=== PATIENT | female | born 1950 | race Caucasian/White ===

== ENCOUNTER 2017-11-29 08:00 | Outpatient (RCR) | payer MEDICARE, OTHER, SELFPAY | END 2018-01-06 09:46 | disposition home or self-care (01) | LOC: PT 08:00 | PROVIDERS: Family Provider Family Medicine; PCP Family Medicine; Visit Provider Orthopaedic Surgery Adult Reconstructive Orthopaedic Surgery | DX: M17.0 Bilateral primary osteoarthritis of knee (principal) | CPT/HCPCS: 97014; 97110; 97116; 97140; 97163; G0283 ==

== ENCOUNTER → 2018-04-21 12:31 | Outpatient (CLI) | payer MEDICARE, BC, SELFPAY ==
--- NOTE | 2018-04-21 12:42 | XR_ITS ---
XR chest 2V HISTORY: ITS.REASON: COUGH, shortness of breath ORDERING PHYSICIAN: Chase Gunn MD PATIENT AGE: 67 years COMPARISON: 10/16/2016 FINDINGS: The cardiomediastinal silhouette and pulmonary vascularity are within normal limits. The lungs are clear without infiltrates, suspicious nodules, or pleural effusions. Increased density is present over the left heart having a similar appearance on the previous study and may be due to pericardial fat pad. There is mild degenerative change in the thoracic spine No acute bony abnormalities. IMPRESSION: Probable pericardial fat pad on the left which may be confirmed with follow-up, no acute finding
== END ==
PROVIDERS: PCP Family Medicine; Visit Provider Family Medicine
DX: R05 Cough (principal)
CPT/HCPCS: 71046

== ENCOUNTER → 2019-10-25 08:13 | Outpatient (CLI) | payer MEDICARE, BC, SELFPAY ==
[2019-10-25 08:22] LABS: Microscopic, Urine URINE MICROSCOPIC (MICROSCOPIC)
[2019-10-25 13:50] LABS: Basophils % 0.4 % (0.1-2.0); Eosinophils # 0.2 K/mm3 (0.0-0.4); Eosinophils % 3.3 % (0.1-12.0); Hematocrit 40.8 % (37.0-47.0); Hemoglobin 13.9 g/dL (12.2-16.2); Lymphocytes # 1.4 K/mm3 (0.7-4.5); Lymphocytes % 30.4 % (10-50); Mean Corpuscular HGB Conc 34.2 g/dL (31.8-35.4); Mean Corpuscular Hemoglobin 33.5 pg (27.0-31.2); Mean Corpuscular Volume 98.1 fl (81-99); Monocytes # 0.3 K/mm3 (0.1-1.0); Monocytes % 7.1 % (1.7-9.3); Neutrophils # 2.7 K/mm3 (1.8-7.8); Neutrophils % 58.9 % (37.0-80.0); Platelet Count 257 K/mm3 (142-424); Red Blood Count 4.16 M/mm3 (4.20-5.40); Red Cell Distribution Width 14.3 % (11.5-17.5); White Blood Count 4.6 K/mm3 (4.8-10.8)
[2019-10-25 13:55] LABS: Alanine Aminotransferase 15 U/L (12-78); Albumin/Globulin Ratio 1.4 (1.1-1.8); Alkaline Phosphatase 89 U/L (38-126); Amylase 67 U/L (30-110); Anion Gap 15.5 mEq/L (5-15); Aspartate Amino Transferase 30 U/L (14-36); Bilirubin,Total 0.5 mg/dl (0.2-1.3); Blood Urea Nitrogen 22 mg/dl (7-17); Calcium 9.7 mg/dl (8.4-10.2); Carbon Dioxide 28 mmol/L (22.0-30.0); Chloride 101 mmol/L (98-107); Estimated Glomerular Filt Rate 71 ml/min (>60); GFR (African American) 86 ML/MIN (>60); Globulin 2.9 g/dL (1.3-3.2); Glucose 125 mg/dl (74-100); Lipase 114 U/L (23-300); Potassium 4.5 mmoL/L (3.5-5.1); Sodium 140 mmol/L (136-145); Total Protein,Serum 6.9 g/dl (6.3-8.2)
[2019-10-25 14:26] LABS: Appearance,Urine SL CLOUDY (Clear); Bilirubin,Urine Negative (Negative); Blood, Urine TRACE-I (Negative); Color,Urine DK YELLOW (Yellow); Glucose,Urine (UA) 3+ (Negative); Ketones,Urine Negative (Negative); Leukocyte Esterase,Urine Negative (Negative); Nitrate,Urine POSITIVE (Negative); PH,Urine 5.5 (5.0-8.5); Protein,Urine Negative (Negative); Urobilinogen,Urine 0.2 EU/dl (0.2)
[2019-10-25 14:36] LABS: Bacteria,Urine 3+ /lpf; WBC,Urine 20-50 #/hpf (0-3)
== END ==
PROVIDERS: Visit Provider Family Medicine
DX: R10.30 Lower abdominal pain, unspecified (principal); R11.0 Nausea
CPT/HCPCS: 36415; 80053; 81001; 82150; 83690; 85025; 87086; 87088; 87186

== ENCOUNTER → 2020-01-16 12:51 | Outpatient (CLI) | payer MEDICARE, BC, SELFPAY ==
--- NOTE | 2020-01-16 12:55 | XR_ITS ---
PROCEDURE: XR CHEST PORTABLE CLINICAL HISTORY: COVID OUTPATIENT COMPARISON: CR CXR CHEST(2 VIEWS-NOT PORTABLE) from 12/30/2015 CR CXR CHEST(2 VIEWS-NOT PORTABLE) from 10/16/2016 CR CXR2V XR chest 2V from 04/21/2018 FINDINGS: There is mild cardiomegaly without failure. The lungs are clear without infiltrates, suspicious nodules, or pleural effusions. No acute bony abnormalities. IMPRESSION: Borderline cardiomegaly. No change with no acute finding Dictated by: Leonardo Reid MD 01/16/2020 14:04 Leonardo Reid MD in [facility] 01/16/2020 14:04
[2020-01-16 15:38] LABS: Basophils % 0.6 % (0.1-2.0); Eosinophils # 0.2 K/mm3 (0.0-0.4); Eosinophils % 2.5 % (0.1-12.0); Hematocrit 42.2 % (37.0-47.0); Hemoglobin 13.6 g/dL (12.2-16.2); Lymphocytes # 1.5 K/mm3 (0.7-4.5); Lymphocytes % 25.3 % (10-50); Mean Corpuscular HGB Conc 32.3 g/dL (31.8-35.4); Mean Corpuscular Hemoglobin 33.2 pg (27.0-31.2); Mean Corpuscular Volume 102.9 fl (81-99); Mean Platelet Volume 8.7 fl (7.4-10.4); Monocytes # 0.4 K/mm3 (0.1-1.0); Monocytes % 6.9 % (1.7-9.3); Neutrophils % 64.7 % (37.0-80.0); Platelet Count 308 K/mm3 (142-424); Red Cell Distribution Width 13.8 % (11.5-17.5); White Blood Count 6.1 K/mm3 (4.8-10.8)
[2020-01-18 12:40] LABS: Covid-19 Nasal PCR Sendout Lex Not Detected
== END ==
PROVIDERS: PCP Family Medicine; Visit Provider Family Medicine
DX: Z03.818 Encounter for observation for suspected exposure to other biological agents ruled out (principal)
CPT/HCPCS: 36415; 71045; 85025; U0004

== ENCOUNTER → 2020-04-03 09:04 | Outpatient (CLI) | payer MEDICARE, BC, SELFPAY ==
[2020-04-03 15:40] LABS: Basophils % 0.6 % (0.1-2.0); Eosinophils # 0.2 K/mm3 (0.0-0.4); Eosinophils % 4.1 % (0.1-12.0); Hematocrit 39.8 % (37.0-47.0); Hemoglobin 12.3 g/dL (12.2-16.2); Lymphocytes # 1.1 K/mm3 (0.7-4.5); Lymphocytes % 25.6 % (10-50); Mean Corpuscular HGB Conc 30.9 g/dL (31.8-35.4); Mean Corpuscular Hemoglobin 31.6 pg (27.0-31.2); Mean Corpuscular Volume 102.2 fl (81-99); Mean Platelet Volume 9.1 fl (7.4-10.4); Monocytes # 0.4 K/mm3 (0.1-1.0); Neutrophils # 2.7 K/mm3 (1.8-7.8); Neutrophils % 60.7 % (37.0-80.0); Platelet Count 270 K/mm3 (142-424); Red Blood Count 3.89 M/mm3 (4.20-5.40); Red Cell Distribution Width 14.1 % (11.5-17.5); White Blood Count 4.4 K/mm3 (4.8-10.8)
[2020-04-03 15:42] LABS: Alanine Aminotransferase 15 U/L (12-78); Albumin Level 3.9 g/dl (3.5-5.0); Albumin/Globulin Ratio 1.3 (1.1-1.8); Alkaline Phosphatase 76 U/L (38-126); Anion Gap 9.5 mEq/L (5-15); Aspartate Amino Transferase 24 U/L (14-36); Bilirubin,Total 0.4 mg/dl (0.2-1.3); Blood Urea Nitrogen 18 mg/dl (7-17); Calcium 9.5 mg/dl (8.4-10.2); Carbon Dioxide 29 mmol/L (22.0-30.0); Chloride 106 mmol/L (98-107); Estimated Glomerular Filt Rate 62 ml/min (>60); GFR (African American) 75 ML/MIN (>60); Glucose 146 mg/dl (74-100); Potassium 4.5 mmoL/L (3.5-5.1); Sodium 140 mmol/L (136-145); Total Protein,Serum 6.9 g/dl (6.3-8.2)
[2020-04-03 16:14] LABS: Thyroid Stimulating Hormone 2.84 uIU/mL (0.465-4.68)
[2020-04-03 16:30] LABS: Erythrocyte Sedimentation Rate 102 mm/hr (0-30)
[2020-04-03 16:49] LABS: Vitamin B12 633 pg/mL (239-931)
[2020-04-03 17:02] LABS: Folate > 20.00 ng/mL
[2020-04-05 18:40] LABS: Rapid Plasma Reagin Ab Titer Non Reactive (NonRea<1:1)
== END ==
PROVIDERS: Visit Provider Specialist
DX: G45.9 Transient cerebral ischemic attack, unspecified (principal); R47.89 Other speech disturbances
CPT/HCPCS: 36415; 80053; 82607; 82746; 84443; 85025; 85651; 86592

== ENCOUNTER → 2020-04-04 10:51 | Outpatient (CLI) | payer MEDICARE, BC, SELFPAY ==
--- NOTE | 2020-04-04 10:52 | CT_ITS ---
Procedure: CT ANGIO HEAD CLINICAL HISTORY: eval of intracranial circ Eval for vasculitis Slurred speech x3wks ago headaches COMPARISON: CT CT ANGIO HEAD from 04/04/2020 TECHNIQUE: IV Contrast: 100ml Isovue 370 Axial images obtained with sagittal and coronal reformats. All CT scans at the facility use one or more dose reduction, viz: automated exposure control, ma/kV adjustment per patient size (including targeted exams where dose is matched to indication, i.e. head), or iterative reconstruction technique. FINDINGS: CT angio neck: Unremarkable appearing aortic arch and great vessels. Right carotid: The common carotid has an unremarkable appearance. There is minimal amount of eccentric calcific plaque in the proximal right ICA without stenosis.No ulceration. No dissection. No significant stenotic lesion. Left carotid: Common carotid has an unremarkable appearance. There is minimal amount of calcific plaque at the bulb and proximal left ICA with approximately 20 percent stenosis of the proximal ICA. No ulceration. No dissection. No significant stenotic lesion. Vertebrals: The right vertebral has an unremarkable appearance. The left vertebral also has an unremarkable appearance. No vertebral dissection or significant stenosis. CTA head: Mild calcific plaque involves the cavernous portion of the ICAs without significant stenosis. The dzdoin-de-Gdvxyv is patent. 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 This measures approximately 3 x 3 mm. The aneurysm is pointing cephalad. This is probably best seen on series 602 image 57 and 58 and axial image series 2, image 364 the cephalad portion of the basilar artery has an unremarkable appearance. No major intracranial occlusive process is evident. No enhancing lesions are apparent. Scattered small nodes are present in the neck. Multilevel degenerative disc disease is present in the cervical spine worse at C6-C7 with mild bilateral foraminal narrowing greater on the left. IMPRESSION: 1. Essentially unremarkable CT angio of the neck. There is some scattered calcific plaque with approximately 20 percent stenosis of the proximal aspect of the left internal carotid artery and no significant stenosis on the right. 2. 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 3. Otherwise negative CTA of the head Dictated by: Leonardo Reid MD 04/04/2020 21:53 Leonardo Reid MD in [facility] 04/05/2020 12:41
--- NOTE | 2020-04-04 10:52 | CT_ITS ---
Procedure: CT ANGIO NECK CLINICAL HISTORY: eval of intracranial circ Eval for vasculitis Slurred speech x3wks ago headaches COMPARISON: CT CT ANGIO HEAD from 04/04/2020 TECHNIQUE: IV Contrast: 100ml Isovue 370 Axial images obtained with sagittal and coronal reformats. All CT scans at the facility use one or more dose reduction, viz: automated exposure control, ma/kV adjustment per patient size (including targeted exams where dose is matched to indication, i.e. head), or iterative reconstruction technique. FINDINGS: CT angio neck: Unremarkable appearing aortic arch and great vessels. Right carotid: The common carotid has an unremarkable appearance. There is minimal amount of eccentric calcific plaque in the proximal right ICA without stenosis.No ulceration. No dissection. No significant stenotic lesion. Left carotid: Common carotid has an unremarkable appearance. There is minimal amount of calcific plaque at the bulb and proximal left ICA with approximately 20 percent stenosis of the proximal ICA. No ulceration. No dissection. No significant stenotic lesion. Vertebrals: The right vertebral has an unremarkable appearance. The left vertebral also has an unremarkable appearance. No vertebral dissection or significant stenosis. CTA head: Mild calcific plaque involves the cavernous portion of the ICAs without significant stenosis. The gahche-ly-Cmmmku is patent. 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 This measures approximately 3 x 3 mm. The aneurysm is pointing cephalad. This is probably best seen on series 602 image 57 and 58 and axial image series 2, image 364 the cephalad portion of the basilar artery has an unremarkable appearance. No major intracranial occlusive process is evident. No enhancing lesions are apparent. Scattered small nodes are present in the neck. Multilevel degenerative disc disease is present in the cervical spine worse at C6-C7 with mild bilateral foraminal narrowing greater on the left. IMPRESSION: 1. Essentially unremarkable CT angio of the neck. There is some scattered calcific plaque with approximately 20 percent stenosis of the proximal aspect of the left internal carotid artery and no significant stenosis on the right. 2. 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 3. Otherwise negative CTA of the head Dictated by: Leonardo Reid MD 04/05/2020 12:40 Leonardo Reid MD in [facility] 04/05/2020 12:40
--- NOTE | 2020-04-04 11:16 | XR_ITS ---
PROCEDURE: XR CHEST 2V CLINICAL HISTORY: screen for TB COMPARISON: CR CXR CHEST(2 VIEWS-NOT PORTABLE) from 10/16/2016 CR CXR2V XR chest 2V from 04/21/2018 CR XR CHEST PORTABLE from 01/16/2020 FINDINGS: The cardiomediastinal silhouette and pulmonary vascularity are within normal limits. The lungs are clear without infiltrates, suspicious nodules, or pleural effusions. No evidence of active granulomatous process. Degenerative changes thoracic spine. IMPRESSION: No acute findings. Dictated by: Leonardo Reid MD 04/04/2020 13:07 Leonardo Reid MD in [facility] 04/04/2020 13:07
--- NOTE | 2020-04-04 11:25 | CT_ITS ---
PROCEDURE: CT HEAD/BRAIN WO CON CLINICAL INDICATION: sudden onset headache, word finding difficulties Slurred speech x3wks ago COMPARISON: No exams were available for comparison TECHNIQUE: Axial images obtained. All CT scans at the facility use one or more dose reduction, viz: automated exposure control, ma/kV adjustment per patient size (including targeted exams where dose is matched to indication, i.e. head), or iterative reconstruction technique. FINDINGS: No midline shift, mass effect, intracranial hemorrhage, hydrocephalus, or extra-axial fluid collection is evident. There is generalized atrophy with hypoattenuation of the periventricular white matter consistent with microangiopathic changes. 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 The calvarium has an unremarkable appearance. No mastoid effusion. No sinus air-fluid level. IMPRESSION: 1. No acute intracranial findings. 2. Chronic ischemic changes Dictated by: Leonardo Reid MD 04/05/2020 12:27 Leonardo Reid MD in [place] 04/05/2020 12:27
[2020-04-04 13:25] LABS: Erythrocyte Sedimentation Rate 26 mm/hr (0-30)
[2020-04-04 13:31] LABS: C-Reactive Protein 2.1 mg/L (0-4)
[2020-04-13 22:17] LABS: Antinuclear Antibodies (ANA) NEGATIVE
[2020-04-13 22:19] LABS: 1,25-Dihydroxy, Vitamin D-2 <10; 1,25-Dihydroxy, Vitamin D-3 33
== END ==
PROVIDERS: Nurse Practitioner Family; PCP Family Medicine; Visit Provider Specialist
DX: R47.89 Other speech disturbances (principal); R51.9 Headache, unspecified; R70.0 Elevated erythrocyte sedimentation rate; G45.9 Transient cerebral ischemic attack, unspecified
CPT/HCPCS: 36415; 70450; 70496; 70498; 71046; 82652; 85651; 86038; 86140; Q9967

== ENCOUNTER → 2020-04-04 12:03 | Outpatient (CLI) | payer MEDICARE, BC, SELFPAY | PROVIDERS: Visit Provider Nurse Practitioner Family | DX: R51.9 Headache, unspecified (principal); R47.89 Other speech disturbances | CPT/HCPCS: 36415; 82652; 85651; 86038; 86140 ==

== ENCOUNTER → 2020-04-05 08:04 | Outpatient (CLI) | payer MEDICARE, BC, SELFPAY ==
--- NOTE | 2020-04-05 08:04 | CA_ITS ---
APPROVED REPORT [employer]: Mindy Casillas RVT Laterality: Bilateral Study Quality: Excellent Indications: TIA Risk Factors Hypertension: Hyperlipidemia Diabetes Doppler Spectral Velocity Analysis ECA (R) 98.40/11.80 cm/s ECA (L) 109.10/6.40 cm/s dICA (R) 65.20/18.20 cm/s dICA (L) 108.00/27.80 cm/s Rosales (R) 108.00/11.80 cm/s Rosales (L) 82.30/20.30 cm/s pICA (R) 68.40/15.00 cm/s pICA (L) 55.60/9.60 cm/s dCCA (R) 59.90/8.60 cm/s dCCA (L) 66.30/11.80 cm/s pCCA (R) 50.30/11.80 cm/s pCCA (L) 72.70/11.80 cm/s Vert (R) 58.80/13.90 cm/s Vert (L) 46.00/9.60 cm/s ICA/CCA 1.80 ICA/CCA 1.63 Findings Study suggests 20-49% stenosis of the right internal cartoid artery. Study suggests 20-49% stenosis of the left internal cartoid artery. Antegrade flow seen bilateral vertebral arteries. Conclusion Study suggests 20-49% stenosis of the right internal cartoid artery. Study suggests 20-49% stenosis of the left internal cartoid artery. Antegrade flow seen bilateral vertebral arteries. Electronically signed by : Leonardo Reid MD 04/05/2020 18:00:25
--- NOTE | 2020-04-05 08:04 | CA_ITS ---
APPROVED REPORT EXAM: Comprehensive 2D, Doppler, and color-flow Echocardiogram [employer] Ste[employer] Tender: Mindy Casillas RVT Ht: 5 ft 5 in Wt: 198lbs BSA: 1.97 BP: 150/66 mmHg Indications: TIA,HTN,DM,HLD 2D Dimensions LVOT 2.00 cm (M/F) 1.5-2.5 LA Volume 24.90 mL LA Volume Index 12.63 mL/m2 (M/F) 16-34 M-Mode Dimensions RVDd 3.66 cm (0.9-2.6) LA Diam 3.99 cm (1.9-4.0) LVDd 5.54 cm (3.5-5.7) Ao Diam 2.76 cm (2.0-3.7) LVDs 3.21 cm (3.5-5.7) IVSd 0.76 cm (0.6-1.1) PWd 0.58 cm (0.6-1.1) EF (Teich) 72.40% FS 42.10% EDV (Teich) 149.90 mL ESV (Teich) 41.30 mL LV Diastology E Decel Time 107.00 (160-240 msec) E/A Ratio 1.4 MED E' 7.40 (< 7 cm/sec) E'/MED E' Ratio 13.88 (>14) LAT E' 7.50 (<10 cm/sec) E/LAT E' Ratio 13.69 (>14) Aortic Valve AI PHT 1052.00 ms Mitral Valve MV E Max Murtaza. 103.00 (40-130 cm/s) MV A Velocity 72.00 (40-130 cm/s) E/A Ratio 1.43 MV Decel. Time 107.00 (160-240 ms) MV PHT 31.00 ms Pulmonary Valve PV Peak Velocity 63.00 (50-150 cm/s) Tricuspid Valve TR P. Velocity 371.00 cm/s RAP Estimate 10.00 mmHg RVSP 65.00 mmHg Left Ventricle Left atrium is mildly enlarged, left ventricle is normal size, mild concentric left ventricular hypertrophy, visually estimated ejection fraction 55% with no regional wall motion abnormality. Grade 2 diastolic dysfunction seen without tissue Doppler evidence of raise left atrial pressure. Right Ventricle Right atrium and right ventricle are mildly enlarged with normal contractility. Aortic Valve Aortic valve is minimally thickened and fibrosed, there is no aortic stenosis, there is mild aortic insufficiency. Mitral Valve Mitral valve is grossly normal, there is mild mitral regurgitation. Tricuspid Valve Tricuspid valve grossly normal, there is mild tricuspid regurgitation, tricuspid regurgitation jet velocity is inadequate for calculation of the right ventricular systolic pressure. Pulmonic Valve Pulmonic valve is poorly visualized. Great Vessels Aortic root is normal size. Pericardium No significant pericardial effusion noted Conclusion 1. Biatrial enlargement, normal left ventricular size, mild concentric left ventricular hypertrophy, visually estimated ejection fraction 55% with no regional wall motion abnormality, grade 2 diastolic dysfunction seen without tissue Doppler evidence of raise left atrial pressure. 2. Mildly enlarged right ventricle with normal contractility. 3. Mild aortic, mild mitral and tricuspid regurgitation. 4. No significant pericardial effusion noted. Electronically signed by : Eric Washington, 04/05/2020 10:36:02
--- NOTE | 2020-04-05 09:16 | ECG_ITS ---
APPROVED REPORT Exam: Resting ECG HR:50 bpm ECG Measurements Heart Rate 50 AXES OK 162 P 68 QRSd 84 QRS 35 QT 468 T 54 QTc 426 Conclusion Sinus bradycardia Low voltage QRS STTW inversion - old changes Abnormal ECG Electronically signed by : Tyler Esteban, 04/05/2020 17:48:19
== END ==
PROVIDERS: PCP Family Medicine; Visit Provider Specialist
DX: G45.9 Transient cerebral ischemic attack, unspecified (principal); R47.89 Other speech disturbances
CPT/HCPCS: 93005; 93225; 93226; 93306; 93880

== ENCOUNTER → 2020-04-08 12:41 | Outpatient (CLI) | payer MEDICARE, BC, SELFPAY | PROVIDERS: PCP Family Medicine; Visit Provider Specialist | DX: G45.9 Transient cerebral ischemic attack, unspecified (principal) | CPT/HCPCS: 94762 ==

== ENCOUNTER → 2020-04-09 12:32 | Outpatient (CLI) | payer MEDICARE, BC, SELFPAY ==
[2020-04-09 13:44] LABS: Coronavirus 19 IgG Antibody Negative (Negative); Coronavirus 19 IgM Antibody Negative (Negative)
== END ==
PROVIDERS: Visit Provider Surgery
DX: Z01.818 Encounter for other preprocedural examination (principal); Z20.822 Contact with and (suspected) exposure to COVID-19; M31.6 Other giant cell arteritis
CPT/HCPCS: 36415; 86328

== ENCOUNTER 2020-04-11 09:50 | Day surgery (SDC) | payer MEDICARE, BC, SELFPAY ==
[2020-04-09 10:35] VITALS: BMI 32.9
[2020-04-11] VITALS (10 sets, daily range): BP systolic 137–195; BP diastolic 62–78; PULSE 58–73; RESP 16–18; TEMP 36.1–36.8; O2SAT 92–98
--- NOTE | 2020-04-11 11:52 | HMH.ANESCL ---
[facility] Anesthesia Checklist - Patient Identification Patient Identification: Arm Band - Structural Data Admitted From: Home Planned Operative Procedure/s: Bilateral Temporal Artery Biopsies Consent for Planned Operative Procedure(s) Verified: Yes Verified Documents: Surgical Consent, History and Physical - NPO Status Verified Time NPO: 00:00 - Additional verifications Anesthesia Reactions: No Hx Blood Transfusions: No Blood Transfusion Reaction: No - Airway Assessment C-Spine Mobility Assessed: Yes (mp2) TMJ Mobility Assessed: Yes Dentition: Good Dentition - Neurological Assessment Level of Consciousness: Awake, Alert - Anesthesia Plan Anesthesia Risk discussed: Yes Anesthesia Plan: Verified ASA Class: III Anesthesia Type: General [facility] History I have reviewed the patient's past medical history: Yes Medical History: Reports:: Anxiety, Depression, Diabetes Mellitus Type 2, Hyperlipidemia, Hypertension Denies:: Cancer, Diabetes Mellitus Type 1, MRSA, Seizures *Have you ever received a pneumonia vaccine?: Yes *Have you received a flu vaccine this season?: Yes Other Medical History: Reports: Arthritis, Other. Denies: Blood Transfusion Reaction Anesthesia experience/problems:: nac Laterality Cases: Bilateral: Carpal Tunnel Release Other Surgeries: Yes: Cholecystectomy, Colonoscopy, Hernia Repair, Tubal Ligation Amputation: No Fractures: No - *Social History Last grade of school completed: High school graduate Smoking Status: Never smoker Alcohol Intake: never Substance Use Type: denies use *Occupational Status:: retired Housing: house Household Members: spouse, children *Travel in the last 8 weeks: None - Psychiatric History Pschychiatric History:: Reports:: Anxiety, Depression Family Hx:: Diabetes, Coronary Artery Disease, Cancer
--- NOTE | 2020-04-11 13:03 | P.PN_ITS ---
[facility] Anesthesia Record Part I Intake, IV Amount: 1,000 Estimated blood loss (mL): 10 Urine output (mL): 0 Blood Pressure: 150/72 SaO2: 93 Pulse Rate: 73 Respiratory Rate: 16 Temperature: 97.1 F Patient is:: Drowsy, Stable Stable to PACU at:: 13:00
--- NOTE | 2020-04-11 13:05 | HMH.OPNOTE ---
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 Ultrasound guidance was utilized in the preoperative area for marking of her bilateral temporal arteries. She was then transferred to the operating room and placed in the supine position. General anesthesia with laryngeal mask airway was achieved. The right temporal region was prepped and draped in a sterile fashion. After infiltration with local anesthetic an incision was made overlying the left temporal artery. The deep subcutaneous tissue was sharply dissected. Electrocautery was utilized to achieve hemostasis along the skin margin. The fascial margin was carefully elevated as a fairly large vein and adjacent artery were from surrounding tissue. The artery and vein were carefully elevated and . The artery was controlled proximally and distally with 4-0 Nurolon. Tenotomy scissors were then utilized to transect the vessel. Secondary to mild ongoing sanguinous ooze the decision was made to proceed with resection of the adjacent vein. It was taken in a similar manner. The left temporal artery with adjacent vein were placed in a single specimen cup for pathologic evaluation. Skin was then reapproximated with running 6-0 nylon and a sterile dressing was applied. Attention was then turned to the right temporal region which was prepped and draped in a sterile manner. After infiltration local anesthetic an incision was made and the deeper subcutaneous tissue was sharply dissected. Once again, electrocautery was utilized to achieve hemostasis of the skin margin. A somewhat thickened artery was carefully from surrounding tissue with a combination of sharp and blunt dissection. The artery was elevated with a vessel loop centrally as 4-0 Nurolon was used to ligate proximally and distally. The vessel was transected and passed off for pathologic evaluation. Skin was then closed with running 6-0 nylon. Dressings were applied and the patient was transferred to recovery in stable condition after removal of her laryngeal mask airway. Condition: stable Disposition: PACU Specimens:: Left temporal artery and adjacent vein Right temporal artery Complications:: No immediate
[2020-04-11 13:18] LABS: POC Glucose,Bedside 138 (70-110)
[2020-04-11 15:00] LABS: POC Glucose,Bedside 130 (70-110)
[2020-04-12 10:43] VITALS: BP 177/71; PULSE 59; TEMP 36.1
--- NOTE | 2020-04-12 10:43 | HMH.ANESII ---
[facility] Anesthesia Record Part II Discharge Time: 13:30 Destination: Surgical Day Care (OP Surgery) PACU nurse assessment reviewed?: Yes Patient Condition:: Good Anesthesia Complications:: None Swallowing reflex intact?: Yes Cyanosis?: No Blood Pressure: 177/71 Pulse Rate: 59 Temperature: 97 F Mental Status: Alert & Oriented Pain level:: 0 Nausea and/or vomitting:: None Intake, IV Amount: 0
== END 2020-04-11 14:20 | disposition home or self-care (01) ==
LOC: OR 09:52
PROVIDERS: PCP Family Medicine; Visit Provider Surgery
PROC: (CPT 37609; principal; 2020-04-11 11:30)
DX: I77.9 Disorder of arteries and arterioles, unspecified (principal); I87.9 Disorder of vein, unspecified; E11.9 Type 2 diabetes mellitus without complications; I10 Essential (primary) hypertension; E78.5 Hyperlipidemia, unspecified; F41.9 Anxiety disorder, unspecified; F32.9 Major depressive disorder, single episode, unspecified; M19.90 Unspecified osteoarthritis, unspecified site; Z83.3 Family history of diabetes mellitus; Z80.9 Family history of malignant neoplasm, unspecified; Z82.49 Family history of ischemic heart disease and other diseases of the circulatory system; Z79.82 Long term (current) use of aspirin; Z79.899 Other long term (current) drug therapy
CPT/HCPCS: 37609; 82962; 88305; J2405

== ENCOUNTER → 2020-04-25 07:46 | Outpatient (CLI) | payer MEDICARE, BC, SELFPAY ==
--- NOTE | 2020-04-25 07:46 | NM_ITS ---
APPROVED REPORT Exam: Nuclear Stress Test Indication: palpitations..abn holtier Patient Location: Outpatient Stress Tech: Shivani Byrd [place] Tech:Lori Zhou VALorrie RT(R)(N) Ht: 5 ft 5 in Wt: 185 lbs Bra Size: 38 b HR: 62 bpm BP: 156/58 mmHg BSA: 1.91 m2 BMI: 30.7 History: palpitations..abn holtier Procedure: Patient received a 0.4 mg of intravenous Lexiscan, resting heart rate 62 bpm, resting blood pressure 156/58 mmHg, with Lexiscan maximum heart rate achived was 93 bpm which is 85 % of the maximum predicted heart rate and blood pressure was 170/69 mmHg. With Lexiscan, patient denied any complaint of chest pain. Electrocardiogram Resting electrical cardiogram shows sinus rhythm, with Lexiscan there is less than 1.[address] segment depression noted from the baseline EKG. The EKG portion of the Lexiscan is nondiagnostic. Cardiac Stress and Resting SPECT Images: Cardiac Stress and Resting SPECT images were obtained using technetium 99m Myoview 32.9 mCi stress and 10.37 mCi at rest. Gated SPECT for analysis of segmental wall motion and calculation of the ejection fraction also done, prone images were also obtained. Cardiac stress and resting SPECT images show uniform myocardial activity without segmental perfusion abnormality, computer derived ejection fraction is 64% with no regional wall motion abnormality, right ventricle is normal size and contractility. Conclusion: 1. The EKG portion of the Lexiscan is nondiagnostic. 2. No scintigraphic evidence of reversible ischemia seen, computer derived ejection fraction is 64% with no regional wall motion abnormality, right ventricle is normal size and contractility. 3. Normal Lexiscan Myoview study. Electronically signed by : Eric Washington, 04/25/2020 14:36:08
--- NOTE | 2020-04-25 11:37 | CA_ITS ---
APPROVED REPORT Exam: Pharmacologic Technologist: Shivani Byrd, Ht: 5 ft 5 in Wt: 193 lbs BSA: 1.95 m2 HR: 62 bpm BP: 156/58 mmHg Medical History Medications: Aspirin,,,,, Metformin,,,,, Nabumetone,,,,, Crestor,,,,, Coreg,,,,, Calcium,,,,, Protonix,,,,, Januvia,,,,, Prednisone,,,,, KloNOPIN,,,,, Lactulose,,,,, ActOS,,,,, Stress Test Details Test: LEXISCAN HR Resting HR: 63 bpm Max Heart Rate (APMHR): 151.842313 bpm Max HR Achieved: 99 bpm Target HR (85% APMHR): 128.290884 bpm % of APMHR: 65.56 Recovery HR: 67 bpm BP Resting BP: 156/58 mmHg Max BP: 177/60 mmHg Recovery BP: 151.0/55.0 mmHg ECG Resting ECG: NSR, PVC Clinical Exercise duration: 04:00 min Highest Stage Achieved: Exercise capacity: 1.0 METs Stress ECG Conclusion Symptoms: SOA, Malaise, SALAZAR, mild stomach discomfort. SOA better, other symptoms persist. Aminophylline 100mg slow IV given, symptoms better. Symptoms resolved. Arrhythmias/Ectopy: Occ PVC. Rare PAC ST-T Changes: No significant changes. Conclusion: Unremarkable Lexiscan stress. Myoview images reported separately. Electronically signed by : Eric Washington, 04/25/2020 14:33:23
== END ==
PROVIDERS: PCP Family Medicine; Visit Provider Urology
DX: E11.69 Type 2 diabetes mellitus with other specified complication (principal); E78.5 Hyperlipidemia, unspecified; I10 Essential (primary) hypertension; I47.1 Supraventricular tachycardia; R94.31 Abnormal electrocardiogram [ECG] [EKG]; Z82.49 Family history of ischemic heart disease and other diseases of the circulatory system; Z86.79 Personal history of other diseases of the circulatory system; Z79.84 Long term (current) use of oral hypoglycemic drugs; R06.09 Other forms of dyspnea; Z79.899 Other long term (current) drug therapy; I34.0 Nonrheumatic mitral (valve) insufficiency
CPT/HCPCS: 78452; 93017; A9502; J0280; J2785

== ENCOUNTER → 2020-04-30 10:43 | Outpatient (CLI) | payer MEDICARE, BC, SELFPAY ==
[2020-04-30 12:11] LABS: Erythrocyte Sedimentation Rate 20 mm/hr (0-30)
[2020-05-03 18:26] LABS: Antinuclear Antibodies (ANA) NEGATIVE
[2020-05-04 12:01] LABS: 1,25 Dihydroxy Vitamin D 33; 1,25-Dihydroxy, Vitamin D-2 <10
[2020-05-04 12:02] LABS: 1,25-Dihydroxy, Vitamin D-3 33
== END ==
PROVIDERS: Nurse Practitioner Family; Visit Provider Specialist
DX: G45.9 Transient cerebral ischemic attack, unspecified (principal); M31.6 Other giant cell arteritis; R47.89 Other speech disturbances; R51.9 Headache, unspecified; R70.0 Elevated erythrocyte sedimentation rate
CPT/HCPCS: 36415; 82652; 85651; 86038

== ENCOUNTER → 2020-05-14 10:56 | Outpatient (CLI) | payer MEDICARE, BC, SELFPAY ==
[2020-05-14 15:22] LABS: Erythrocyte Sedimentation Rate 23 mm/hr (0-30)
== END ==
PROVIDERS: Visit Provider Specialist
DX: M31.6 Other giant cell arteritis (principal)
CPT/HCPCS: 36415; 85651

== ENCOUNTER 2020-06-11 15:00 | Outpatient (RCR) | payer MEDICARE, BC, SELFPAY ==
--- NOTE | 2020-05-16 13:01 | HMH.SLVOIC ---
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 Speech & Language HPI History Present Illness Pt/Caregiver Concerns physically can not get words out Is this evaluation r/t stroke? No Therapy History Seen by other SL therapists No SL Voice & Resonance Eval Communication/Cognition Orientation Name,Place,Day,Date,Year Ablility to follow commands 2-step commands Intelligibility Fair Barriers to Communication Dysarthria Oral-Motor Structure/Function Structure/Function Yes: Buccal Labial Lingual Mandibular Velar Other Facial Symmetry Symmetrical Dentition Good Dentition Resp Status/History Resp status/hx a concern? No Respiration/Phonation Phonation Quality: strained Duration:Mod impaired Loudness: WNL Steadiness: WNL Oral Reading Quality: strained Duration: Mod impaired Loudness: WNL Steadiness: Impaired Conversation Quality: strained Duration: Mod impaired Loudness: WNL Steadiness: Impaired Oral Agility: Diadochokinetic Rates P Duration: 10/ per 3 sec. Quality: WNL T Duration: 11/ per 3 sec. Quality: WNL K Duration: 12/ per 3 sec. Quality: WNL PTK Duration: 6/ per 3 sec. Quality: mild Speech Intelligibility Phoneme
== END 2020-06-11 15:05 | disposition home or self-care (01) ==
LOC: ST 15:00
PROVIDERS: PCP Family Medicine; Visit Provider Specialist
DX: R47.1 Dysarthria and anarthria (principal)
CPT/HCPCS: 92507; 92524

== ENCOUNTER → 2020-06-13 08:51 | Outpatient (CLI) | payer MEDICARE, BC, SELFPAY ==
--- NOTE | 2020-06-13 08:53 | XR_ITS ---
PROCEDURE: XR DEXA AXIAL SKELETON CLINICAL HISTORY: POST MENOPAPUSAL COMPARISON: No exams were available for comparison FINDINGS: The right hip BMD is 0.763 with a T-score of -0.8. The left hip BMD is 0.743 with a T-score of -1.0. The lumbar spine BMD is 1.225 with a T-score of 1.6. IMPRESSION: This patient is considered normal according to the World Health Organization criteria. Fracture risk is low. Based on these results a follow-up exam is recommended in 2 year. Dictated by: Leonardo Reid MD 06/13/2020 22:16 Leonardo Reid MD in [place] 06/14/2020 08:33
== END ==
PROVIDERS: PCP Family Medicine; Visit Provider Obstetrics & Gynecology Gynecology
DX: Z78.0 Asymptomatic menopausal state (principal)
CPT/HCPCS: 77080

== ENCOUNTER 2020-09-03 08:50 | Emergency (ER) | payer MEDICARE, BC, SELFPAY ==
[2020-09-03 08:51] VITALS: BP 190/83; PULSE 65; RESP 16; TEMP 36.6; O2SAT 98; BMI 33.3
--- NOTE | 2020-09-03 09:00 | HMH.EDGENADL ---
ED Disposition Clinical Impression: Osteoarthritis of hip Qualifiers: Osteoarthritis type: primary Laterality: right Qualified Code(s): M16.11 - Unilateral primary osteoarthritis, right hip Sciatica Qualifiers: Laterality: right Qualified Code(s): M54.31 - Sciatica, right side Disposition: Home, Self-Care Condition on Discharge: Good Instructions: DI for Chronic Pain -- Adult Additional Instructions: Follow-up with your primary care who can establish follow-up with an orthopedist for your developing arthritis. Prescriptions: methocarbamoL [Methocarbamol] 750 mg PO TID PRN #9 tab PRN Reason: Muscle Spasm Transmission Status: Pending to [facility] predniSONE [Prednisone 20mg Tab] 20 mg PO DAILY #4 tab Transmission Status: P[facility] to [facility] Referrals: Chase Gunn MD [Primary Care Provider] - - Critical Care Critical Care Time: No Attestation: On , the high probability of a clinically significant, sudden or life threatening deterioration of the following system(s) required my full and direct attention, intervention and personal management. The time I documented below is in addition to time spent performing reported procedures but includes the following listed in this critical care notation. Medical Decision Making - Medical Records Medical records reviewed: Yes: I reviewed the patient's medical records. - Bhavik Inquiry Pt receiving controlled substance: No Vital Signs: 09/03/20 08:51 Temperature 98 F Temperature Source Oral Pulse Rate [Radial] 65 Respiratory Rate 16 Blood Pressure [Right Arm] 190/83 H Blood Pressure Mean [Right Arm] 118 Blood Pressure Position [Right Arm] Sitting 02 Sat by Pulse Oximetry 98 Oxygen Delivery Method Room Air Orders (Tests/Meds): ED MEDICATIONS Discontinued Medications Generic Name Dose Route Start Last Admin Trade Name Freq PRN Reason Stop Dose Admin Acetaminophen 1,000 mg 09/03/20 09:00 09/03/20 09:18 Acetaminophen 500mg Tab PO 09/03/20 09:01 1,000 mg ONCE ONE Administration Ketorolac Tromethamine 15 mg 09/03/20 09:00 09/03/20 09:18 Ketorolac 30mg/Ml Vial IM 09/03/20 09:01 15 mg ONCE ONE Administration - Radiology Data #1 Image(s): Hip Image Reviewed: Yes I reviewed the patient's radiology results Preliminary Findings: Abnormal Osteoarthritis of the right hip Medical Decision Narrative: 69-year-old female who ambulates into the department well-appearing nontoxic on initial examination. Is having paresthesias to the right leg with pain that shoots from the hip to the knee. She also has tenderness over her right SI joint on exam. Exam is consistent with osteoarthritis exacerbation of the right hip. She has no previous diagnosis. X-ray was performed with concern which confirmed the arthritis and she will be given Tylenol 1 g p.o. and 15 mg of Toradol. Patient was given a prescription for short dose of prednisone and Robaxin for muscle relaxation and discharged home in good condition. General Adult HPI - General Stated complaint: numbness/tingling rt leg Time Seen by Provider: 09/03/20 09:00 Mode of Arrival: Ambulatory - History of Present Illness HPI narrative: 69-year-old female with paresthesias to the right thigh and pain over the right hip for 1 week that is progressively worsened. Denies urinary retention, lower back pain, saddle anesthesia, and weakness to the leg. She is ambulating without difficulty. Pain is shooting in nature. Worse with movement currently 3 out of 10. - Related Data Home Medications Medication Instructions Recorded Confirmed amlodipine 5 mg tablet 5 mg PO DAILY 09/12/18 06/25/20 calcium carbonate 600 mg calcium 600 mg PO DAILY 09/12/18 06/25/20 (1,500 mg) tablet candesartan 32 mg tablet 32 mg PO DAILY 09/12/18 06/25/20 carvedilol 25 mg tablet 25 mg PO BID 09/12/18 06/25/20 clonazepam 1 mg tablet 1 mg PO BID 09/12/18 06/25/20 guanfacine
--- NOTE | 2020-09-03 09:01 | XR_ITS ---
PROCEDURE: XR HIP RT 2-3V W/PELVIS CLINICAL INDICATION: right hip pain no trauma COMPARISON: CR BONE BONE DENSITOMETRY(HIP:LT SPINE from 02/06/2013 FINDINGS: No fracture or dislocation. No lytic or blastic change. Mild osteoarthritic changes are noted with slight decrease in the joint space in the axial orientation with minimal spurring of the acetabulum. A neurostimulator device is present with the electrode tip over the right mid sacral area.. There are degenerative changes in the lumbar spine IMPRESSION: Mild osteoarthritic changes of the right hip Dictated by: Leonardo Reid MD 09/03/2020 09:46 Leonardo Reid MD in [facility] 09/03/2020 09:46
[2020-09-03 10:21] VITALS: BP 175/83; PULSE 55; RESP 16; TEMP 36.7; O2SAT 98
== END 2020-09-03 10:21 | disposition home or self-care (01) ==
PROVIDERS: Emergency Provider Student in an Organized Health Care Education/Training Program; PCP Family Medicine
DX: M16.11 Unilateral primary osteoarthritis, right hip (principal); M54.31 Sciatica, right side; F41.8 Other specified anxiety disorders; I10 Essential (primary) hypertension; E11.9 Type 2 diabetes mellitus without complications; E78.5 Hyperlipidemia, unspecified; Z79.899 Other long term (current) drug therapy
CPT/HCPCS: 73502; 96372; 99282

== ENCOUNTER 2020-10-24 09:00 | Outpatient (RCR) | payer MEDICARE, BC, SELFPAY | END 2020-11-26 08:05 | disposition home or self-care (01) | LOC: PT.CARL 09:00 | PROVIDERS: PCP Family Medicine; Visit Provider Orthopaedic Surgery Adult Reconstructive Orthopaedic Surgery | DX: M51.36 Other intervertebral disc degeneration, lumbar region (principal) | CPT/HCPCS: 97010; 97110; 97140; 97163 ==

== ENCOUNTER → 2021-01-14 08:22 | Outpatient (CLI) | payer MEDICARE, BC, SELFPAY ==
[2021-01-14 14:47] LABS: Anion Gap 8.9 mEq/L (5-15); Blood Urea Nitrogen 27 mg/dl (7-17); Calcium 9.3 mg/dl (8.4-10.2); Carbon Dioxide 32 mmol/L (22.0-30.0); Chloride 99 mmol/L (98-107); Estimated Glomerular Filt Rate 49 ml/min (>60); GFR (African American) 59 ML/MIN (>60); Glucose 142 mg/dl (74-100); Potassium 3.9 mmoL/L (3.5-5.1); Sodium 136 mmol/L (136-145)
== END ==
PROVIDERS: Visit Provider Physician Assistant
DX: E11.9 Type 2 diabetes mellitus without complications (principal); E78.5 Hyperlipidemia, unspecified; I10 Essential (primary) hypertension; R94.31 Abnormal electrocardiogram [ECG] [EKG]; Z82.49 Family history of ischemic heart disease and other diseases of the circulatory system
CPT/HCPCS: 36415; 80048

== ENCOUNTER → 2021-02-10 09:00 | Outpatient (CLI) | payer MEDICARE, BC, SELFPAY ==
[2021-02-10 14:44] LABS: Chloride 99 mmol/L (98-107); Potassium 4.7 mmoL/L (3.5-5.1); Sodium 138 mmol/L (136-145)
[2021-02-10 14:47] LABS: Anion Gap 12.7 mEq/L (5-15); Blood Urea Nitrogen 27 mg/dl (7-17); Calcium 9.2 mg/dl (8.4-10.2); Carbon Dioxide 31 mmol/L (22.0-30.0); Estimated Glomerular Filt Rate 49 ml/min (>60); GFR (African American) 59 ML/MIN (>60); Glucose 180 mg/dl (74-100)
== END ==
PROVIDERS: Visit Provider Physician Assistant
DX: E11.9 Type 2 diabetes mellitus without complications (principal); E78.5 Hyperlipidemia, unspecified; I10 Essential (primary) hypertension; Z82.49 Family history of ischemic heart disease and other diseases of the circulatory system; Z79.84 Long term (current) use of oral hypoglycemic drugs
CPT/HCPCS: 36415; 80048

== ENCOUNTER → 2021-05-16 10:49 | Outpatient (CLI) | payer MEDICARE, BC, SELFPAY ==
--- NOTE | 2021-05-16 10:50 | CA_ITS ---
FINAL REPORT TECHNIQUE: Color Doppler, duplex Doppler and ledesma scale sonography of the bilateral neck arterial vasculature was performed. Velocities were measured in the carotid arteries. Stenosis evaluation based on the validated velocity criteria. CLINICAL HISTORY: AUGUSTINA FINDINGS: The peak systolic velocity of the right common carotid artery is a 2 cm/s. The peak systolic velocity of the right internal carotid artery is 73 cm/s and end diastolic velocity 20 cm/s. A mild to moderate amount of plaque is present. The right external carotid artery is patent. The right vertebral artery is patent with antegrade flow. ICA/CCA ratio: 0.93. The peak systolic velocity of the left common carotid artery is 83 cm/s. The peak systolic velocity of the left internal carotid artery is 89 cm/s and end diastolic velocity 25 cm/s. A mild to moderate amount of plaque is present. The left external carotid artery is patent.The left vertebral artery is patent with antegrade flow. ICA/CCA ratio: 1.06. IMPRESSION: Less than 50% bilateral carotid stenoses. Bilateral patent vertebral arteries with antegrade flow. If indicated, CTA or MRA could further evaluate. Reviewed, Interpreted and Dictated by Serge Hung III, MD Transcribed by Elissa Kwan Authenticated by Serge Hung III, MD on 05/16/2021 12:46:38 PM [facility]
== END ==
PROVIDERS: PCP Family Medicine; Visit Provider Nurse Practitioner Family
DX: E78.5 Hyperlipidemia, unspecified (principal); I10 Essential (primary) hypertension; I65.23 Occlusion and stenosis of bilateral carotid arteries; R06.00 Dyspnea, unspecified; R94.31 Abnormal electrocardiogram [ECG] [EKG]
CPT/HCPCS: 93880

== ENCOUNTER → 2021-07-15 09:49 | Outpatient (CLI) | payer MEDICARE, BC, SELFPAY | PROVIDERS: PCP Family Medicine; Visit Provider Nurse Practitioner Family | DX: G47.30 Sleep apnea, unspecified (principal); G47.00 Insomnia, unspecified; R06.83 Snoring; R51.9 Headache, unspecified; R53.83 Other fatigue | CPT/HCPCS: G0399 ==

== ENCOUNTER → 2021-08-04 13:59 | Outpatient (CLI) | payer MEDICARE, BC, SELFPAY ==
--- NOTE | 2021-08-04 14:05 | XR_ITS ---
FINAL REPORT CLINICAL HISTORY: neck pain, pt states that she has been experiencing neck pain and headaches for the last month, no known trauma. FINDINGS: CERVICAL SPINE Seven views were obtained including flexion and extension views. There is no acute fracture. There is no malalignment. There is mild and moderate degenerative change with multilevel osteophytes. There is no abnormal movement with flexion or extension. There is no soft tissue abnormality. IMPRESSION: [id number] degenerative change with no acute bony abnormality. Reviewed, Interpreted and Dictated by Serge Hung III, MD Transcribed by Nathalie Corey Authenticated and [facility]
== END ==
PROVIDERS: PCP Family Medicine; Visit Provider Nurse Practitioner Family
DX: G44.86 Cervicogenic headache (principal); M54.2 Cervicalgia
CPT/HCPCS: 72052

== ENCOUNTER → 2021-08-19 11:08 | Outpatient (CLI) | payer MEDICARE, BC, SELFPAY ==
[2021-08-19 12:03] LABS: Anion Gap 14.1 mEq/L (5-15); Blood Urea Nitrogen 28 mg/dl (7-17); Calcium 9.8 mg/dl (8.4-10.2); Carbon Dioxide 27 mmol/L (22.0-30.0); Chloride 102 mmol/L (98-107); Estimated Glomerular Filt Rate 49 ml/min (>60); GFR (African American) 59 ML/MIN (>60); Glucose 144 mg/dl (74-100); Potassium 5.1 mmoL/L (3.5-5.1); Sodium 138 mmol/L (136-145)
== END ==
PROVIDERS: PCP Family Medicine; Visit Provider Internal Medicine Cardiovascular Disease
DX: E78.5 Hyperlipidemia, unspecified (principal); I10 Essential (primary) hypertension; R06.00 Dyspnea, unspecified; R94.31 Abnormal electrocardiogram [ECG] [EKG]
CPT/HCPCS: 36415; 80048

== ENCOUNTER → 2021-08-19 20:10 | Outpatient (CLI) | payer MEDICARE, BC, SELFPAY | PROVIDERS: PCP Family Medicine; Visit Provider Nurse Practitioner Family | DX: G47.8 Other sleep disorders (principal); R06.83 Snoring; G47.30 Sleep apnea, unspecified | CPT/HCPCS: 95810 ==

== ENCOUNTER 2021-09-04 09:00 | Outpatient (RCR) | payer MEDICARE, BC, SELFPAY ==
--- NOTE | 2021-08-05 16:31 | HMH.PTOPEV ---
PT Outpatient Evaluation Rehab PT Outpatient Evaluation Start: 08/05/21 14:53 Freq: Status: Active Protocol: Document 08/05/21 14:53 PDESEROUX (Rec: 08/05/21 16:30 PDESEROUX [id number]) Electronically Signed By Apolinar Eden, EVER 08/05/21 14:53 Outpatient Therapy Subjective History Subjective History Pt. is a 70 year old female who presents to [facility] Outpatient Physical Therapy Services in [place] for the initial evaluation this date( 08/05/21) w/ c/o subacute and constant cervical/cephalic P!, headaches, and stiffness of insidious onset 1 month ago. Pt. reports P! and stiffness will originate in the back of the neck and then a throbbing headache will radiate to the top of her head. Pt. reports symptoms worsen w/ turning her neck, reading, and looking down. Pt. reports having some symptom relief w/ using a cervical pillow in her recliner. Pt. reports having an X-ray of her cervical spine yesterday(08/04/21), but states not knowing her results yet. Pt. denies having any injections for current complaint. Pt. denies having any numbness/tingling into neither BUE. Pt. RTMD 10/02/21 . Current medications include Aspirin, Lactulose, Detrol, Trintellix, Crestor, Pioglitazone, Clonazepam, Synjardy, Amlodipine, Fuanfacine, Nabumetone, Hydrochlorothiazide, Candesartan, Januvia, Cefuroxime, Primidone, Protonix, Amitriptyline, Melatonin, and Folic acid. PMH includes Hypertension, Type II Diabetes, Osteoarthritis, Cholecystectomy, S/P B/L Carpal Tunnel Surgeries, S/P Herniorrhaphy, Temporal Artery Surgery, History of Aneurysm,
== END 2021-09-09 09:22 | disposition home or self-care (01) ==
LOC: PT.CARL 09:00
PROVIDERS: PCP Family Medicine; Visit Provider Nurse Practitioner Family
DX: M54.2 Cervicalgia (principal); G44.86 Cervicogenic headache; G89.29 Other chronic pain
CPT/HCPCS: 20560; 97010; 97035; 97110; 97140; 97163

== ENCOUNTER → 2021-09-11 15:32 | Outpatient (CLI) | payer MEDICARE, BC, SELFPAY ==
--- NOTE | 2021-09-11 15:41 | XR_ITS ---
FINAL REPORT CLINICAL HISTORY: COVID OUT PATIENT, congestion COMPARISON: April 04, 2020 FINDINGS: The heart size is normal. The mediastinum is normal. There is left basilar opacity. There are no pleural effusions. There is no pneumothorax. There is no osseous abnormality. IMPRESSION: Left base opacity could represent atelectasis or pneumonia. Reviewed, Interpreted and Dictated by Serge Hung III, MD Transcribed by Ric Enciso Authenticated and [facility]
[2021-09-11 16:02] LABS: Basophils # 0.1 K/mm3 (0-0.2); Basophils % 1.1 % (0.1-2.0); Eosinophils # 0.2 K/mm3 (0.0-0.4); Eosinophils % 2.3 % (0.1-12.0); Hematocrit 33.6 % (37.0-47.0); Hemoglobin 10.4 g/dL (12.2-16.2); Lymphocytes # 1.6 K/mm3 (0.7-4.5); Lymphocytes % 20.6 % (10-50); Mean Corpuscular HGB Conc 31.1 g/dL (31.8-35.4); Mean Corpuscular Hemoglobin 27.7 pg (27.0-31.2); Mean Corpuscular Volume 89.2 fl (81-99); Mean Platelet Volume 8.9 fl (7.4-10.4); Monocytes # 0.7 K/mm3 (0.1-1.0); Monocytes % 8.3 % (1.7-9.3); Neutrophils # 5.3 K/mm3 (1.8-7.8); Neutrophils % 67.8 % (37.0-80.0); Platelet Count 401 K/mm3 (142-424); Red Blood Count 3.77 M/mm3 (4.20-5.40); Red Cell Distribution Width 16.3 % (11.5-17.5); White Blood Count 7.8 K/mm3 (4.8-10.8)
== END ==
PROVIDERS: PCP Family Medicine; Visit Provider Family Medicine
DX: Z20.822 Contact with and (suspected) exposure to COVID-19 (principal)
CPT/HCPCS: 36415; 71045; 85025; C9803; U0003; U0005

== ENCOUNTER → 2021-09-26 09:25 | Outpatient (CLI) | payer MEDICARE, BC, SELFPAY ==
--- NOTE | 2021-09-26 09:33 | XR_ITS ---
FINAL REPORT CLINICAL HISTORY: COUGH f4hckls COMPARISON: September 11, 2021 FINDINGS: Two views of the chest were obtained. The heart size and pulmonary vascularity are within normal limits. The mediastinum is normal. There are mild right base opacities that favor atelectasis. There is no pneumothorax. The bony thorax is intact. IMPRESSION: Mild right base opacities, favor atelectasis. Reviewed, Interpreted and Dictated by Serge Hung III, MD Transcribed by Steffany Lakhani Authenticated and [facility]
== END ==
PROVIDERS: PCP Family Medicine; Visit Provider Family Medicine
DX: R05.9 Cough, unspecified (principal)
CPT/HCPCS: 71046

== ENCOUNTER 2021-11-13 08:00 | Outpatient (RCR) | payer MEDICARE, BC, SELFPAY | END 2021-11-24 10:37 | disposition home or self-care (01) | LOC: PT.CARL 08:00 | PROVIDERS: PCP Family Medicine; Visit Provider Orthopaedic Surgery Adult Reconstructive Orthopaedic Surgery | DX: M65.331 Trigger finger, right middle finger (principal) | CPT/HCPCS: 97010; 97018; 97035; 97110; 97140; 97163 ==

== ENCOUNTER 2021-12-19 07:56 | Day surgery (SDC) | payer MEDICARE, BC, SELFPAY ==
[2021-12-19 09:18] VITALS: BP 141/92; PULSE 62; RESP 18; TEMP 36.6; O2SAT 95
[2021-12-19 09:37] LABS: POC Glucose,Bedside 155 (70-110)
--- NOTE | 2021-12-19 10:37 | EXP.ANES.CKL ---
PFSH [facility] Medical History Abnormal EKG Depression Diabetes mellitus Dyspnea Family history of heart disease History of cyst of breast History of trigger finger HLD (hyperlipidemia) HTN (hypertension) Hx of mitral valve prolapse SVT (supraventricular tachycardia) Surgical History History of biopsy of temporal artery History of carpal tunnel release History of cholecystectomy History of hernia repair History of surgery Family History Other Family history of cardiac disorder Social History Smoking Status: Never smoker alcohol intake: never substance use type: denies use current occupational status: retired Travel in the last 8 weeks: None household members: spouse and children housing: house caffeine: Yes [facility] Anesthesia Checklist Patient Identification Patient Identification: Verbal (Name & ) Structural Data Admitted From: Home Planned Operative Procedure/s: egd,colonoscopy Consent for Planned Operative Procedure(s) Verified: Yes Additional verifications Anesthesia Reactions: No Hx Blood Transfusions: No Blood Transfusion Reaction: No Airway Assessment C-Spine Mobility Assessed: Yes TMJ Mobility Assessed: Yes Dentition: Good Dentition Neurological Assessment Level of Consciousness: Awake, Alert and Appropriate Anesthesia Plan Anesthesia Risk discussed: Yes Anesthesia Plan: Verified ASA Class: III Anesthesia Type: MAC
--- NOTE | 2021-12-19 11:06 | EXP.GEN.HP ---
HPI HPI HPI: Patient presents for endoscopy procedure. She is a 70-year-old female from [place] with history of hyperlipidemia, hypertension, diabetes, supraventricular tachycardia, basilar artery aneurysm status post clipping.? She is referred for colonoscopy for iron deficiency anemia with Hemoccult positivity.? She was found to have hemoglobin of 10 with hematocrit of 33.? She has been placed on iron supplementation.? She has not noticed any blood but apparently had Hemoccult positivity.? I did a colonoscopy on 09/10/2015 for Hemoccult positive stool.? At that time I recommended 5-year follow-up colonoscopy due to suboptimal preparation.? She was found to have minor internal hemorrhoids and suboptimal colonic preparation.? She also had an EGD performed a few weeks later on 10/07/2015 which revealed findings consistent with possible gastroparesis.? Biopsies revealed minimal chronic focally active gastritis . PFSH PFS Medical History Abnormal EKG Depression Diabetes mellitus Dyspnea Family history of heart disease History of cyst of breast History of trigger finger HLD (hyperlipidemia) HTN (hypertension) Hx of mitral valve prolapse SVT (supraventricular tachycardia) Surgical History History of biopsy of temporal artery History of carpal tunnel release History of cholecystectomy History of hernia repair History of surgery Family History Family history of cardiac disorder Social History Smoking Status: Never smoker alcohol intake: never substance use type: denies use current occupational status: retired Travel in the last 8 weeks: None household members: spouse and children housing: house caffeine: Yes Meds Home Medications and Allergies Home Medications Medication Instructions Recorded Confirmed Type calcium carbonate 600 mg calcium 600 mg PO DAILY Supplement 09/12/18 10/30/21 History (1,500 mg) tablet (Calcium) carvedilol 25 mg tablet (Coreg) 25 mg PO BID BP 09/12/18 10/30/21 History clonazepam 1 mg tablet (Klonopin) 1 mg PO BID Anxiety 09/12/18 10/30/21 History guanfacine 2 mg tablet 2 mg PO QHS Heartburn 09/12/18 10/30/21 History rosuvastatin 10 mg tablet (Crestor) 10 mg PO DAILY Cholesterol 09/12/18 10/30/21 History melatonin 10 mg capsule 10 mg PO HS PRN Sleep 04/01/20 10/30/21 History pioglitazone 30 mg tablet (Actos) 30 mg PO DAILY * 04/01/20 10/30/21 History multivitamin 1 each PO DAILY Supplement 04/09/20 10/30/21 History nabumetone 750 mg tablet 1,500 mg PO DAILY * 04/09/20 10/30/21 History pantoprazole 40 mg tablet,delayed 40 mg PO DAILY . 04/30/20 10/30/21 History release amitriptyline 25 mg tablet 25 mg PO HS headache, insomnia 90 06/23/21 10/30/21 Rx days #90 tabs empagliflozin 12.5 mg-metformin ER 1 tab PO DAILY . 06/23/21 10/30/21 History 1,000 mg tablet,extended rel 24 hr (Synjardy XR) ferrous gluconate 324 mg (37.5 mg 324 mg PO DAILY . 10/30/21 10/30/21 History iron) tablet sitagliptin phosphate 100 mg 100 mg PO DAILY . 10/30/21 10/30/21 History tablet (Januvia) vortioxetine 20 mg tablet 20 mg PO DAILY . 10/30/21 10/30/21 History (Trintellix) candesartan 32 mg tablet See Rx Instructions .Route 12/19/21 History .COMPLEX . sodium,potassium,mag sulfates 17.5 See Rx Instructions PO .COMPLEX . 12/19/21 History gram-3.13 gram-1.6 gram oral soln (Suprep Bowel Prep Kit) New Prescriptions to Start Prescriptions: Allergies Allergy/AdvReac Type Severity Reaction Status Date / Time No Known Drug Allergies Allergy Unknown Verified 10/30/21 09:13 Exam Data for Last 24 hours Vital signs and Labs for Last 24 Hours: Temp Pulse Resp BP Pulse Ox 97.8 F 62 18 141/92 H 95 12/19/21 09:18 12/19/21 09:18 12/19/21 09:18 1
[2021-12-19 11:24] VITALS: O2SAT 95
--- NOTE | 2021-12-19 11:28 | SUR.OPER ---
IV IN RIGHT A/C WOULD NOT RUN. IV D/C BY Nate POE RN NEW IV STARTED #22 LEFT HAND BY Nate POE RN
--- NOTE | 2021-12-19 12:14 | HMH.SCOPE ---
Procedure: Date: 12/19/21 Patient Date of :: 1950 Procedure Performed:: Esophagogastroduodenoscopy with biopsies Colonoscopy to ileocecal valve Indications:: Patient presents for endoscopy procedure.? She is a 70-year-old female from [place] with history of hyperlipidemia, hypertension, diabetes, supraventricular tachycardia, basilar artery aneurysm status post clipping.? She is referred for colonoscopy for iron deficiency anemia with Hemoccult positivity.? She was found to have hemoglobin of 10 with hematocrit of 33.? She has been placed on iron supplementation.? She has not noticed any blood but apparently had Hemoccult positivity.? I did a colonoscopy on 09/10/2015 for Hemoccult positive stool.? At that time I recommended 5-year follow-up colonoscopy due to suboptimal preparation.? She was found to have minor internal hemorrhoids and suboptimal colonic preparation.? She also had an EGD performed a few weeks later on 10/07/2015 which revealed findings consistent with possible gastroparesis.? Biopsies revealed minimal chronic focally active gastritis . She was scheduled for colonoscopy. However, later an upper endoscopy was added to her planned procedure to evaluate her anemia. Patient also states that she has had some GI issues which sounds to be mostly nausea. Performing Provider:: Serge Zaragoza MD Referring Provider:: Chase Gunn MD Sedation:: MAC sedation Procedure:: Patient was taken to same-day surgery endoscopy room. She was positioned in lateral decubitus position. Adequate intravenous sedation was achieved. Attention was first turned to upper endoscopy. Olympus endoscope was inserted via the oropharynx. Esophagus was cannulated. Overall esophagus appeared relatively unremarkable. Gastroesophageal junction was encountered. Stomach was cannulated and insufflated. There were findings consistent with moderate nonerosive gastritis/gastropathy. Biopsies were obtained. Pylorus was traversed. Duodenum appeared unremarkable. Endoscope was withdrawn into the distal esophagus and a couple of biopsies were obtained at the gastroesophageal junction to evaluate for Samuel's esophagus. Endoscope was withdrawn. Next attention was turned to colonoscopy. Digital examination was performed. Olympus endoscope was inserted via the anus. She had a rather poor preparation with a large amount of particulate liquid stool throughout the colon. Ultimately the colonoscope was advanced to the cecum. With extremely thorough irrigation and suctioning decent visualization was achieved. The endoscope was able to be advanced briefly to the ileocecal valve but terminal ileum could not be cannulated. Colonoscope was slowly withdrawn through the colon with careful surveillance with very thorough irrigation and suctioning. There were no major polyps, masses noted. Within the rectum retroflexion was performed which revealed minimal internal hemorrhoids. Colonoscope was withdrawn. Findings:: Diffuse moderate gastritis Fair colonic preparation Redundant somewhat atonic colon Recommendations:: No obvious etiology on upper endoscopy or colonoscopy to explain her anemia. If GI etiology is continued to be felt to be etiology recommend small bowel evaluation. Given her fair colonic preparation recommend repeat colonoscopy in approximately 2 years with more aggressive bowel regimen. Complications:: None immediately apparent Estimated blood obtained (mL): 2
[2021-12-19 12:17] VITALS: BP 106/48; PULSE 60; RESP 18; TEMP 36.1; O2SAT 95
[2021-12-19 12:27] VITALS: BP 106/48; PULSE 58; RESP 18; O2SAT 96
[2021-12-19 12:38] VITALS: BP 128/61; PULSE 60; RESP 18; O2SAT 98
== END 2021-12-19 12:41 | disposition home or self-care (01) ==
PROVIDERS: PCP Family Medicine; Visit Provider Surgery
PROC: 0DJ08ZZ Inspection of Upper Intestinal Tract, Via Natural or Artificial Opening Endoscopic (ICD-10-PCS; CPT 43235; principal; 2021-12-19 10:00)
DX: D50.9 Iron deficiency anemia, unspecified (principal); K29.50 Unspecified chronic gastritis without bleeding; E11.9 Type 2 diabetes mellitus without complications
CPT/HCPCS: 43239; 45378; 82962; 88305; J2704

== ENCOUNTER → 2022-01-28 08:45 | Outpatient (CLI) | payer MEDICARE, BC, SELFPAY ==
--- NOTE | 2022-01-28 08:45 | FL_ITS ---
FINAL REPORT CLINICAL HISTORY: anemia Fluoro Time: 2.22min FINDINGS: UPPER GI WITH SBFT HISTORY: Anemia. PROCEDURE: The patient ingested barium. Effervescent crystals were also administered. Spot and overhead films were obtained. Additional barium was administered for a SBFT. FINDINGS: The esophagus is normal. There is a small sliding-type hiatal hernia. There is gastroesophageal reflux to the level of aortic arch. Peristalsis is normal. The rugal fold pattern of the stomach is normal. The duodenal bulb is normal. FLUOROSCOPY TIME: IMPRESSION: Small sliding-type hernia with moderate gastroesophageal reflux. SBFT: The top closer film is normal. There is no evidence of obstruction. The mucosal fold pattern is normal. The terminal ilium is normal. IMPRESSION: Normal SBFT. Films reviewed , interpreted and dictated by Dr. Hung Transcribed by Jeff Hudson PA-C. Reviewed, Interpreted and Dictated by Serge Hung III, MD Transcribed by JORGE Ward Authenticated and [facility]
== END ==
PROVIDERS: PCP Family Medicine; Visit Provider Surgery
DX: D64.9 Anemia, unspecified (principal)
CPT/HCPCS: 74246; 74248

== ENCOUNTER → 2022-02-19 07:33 | Outpatient (CLI) | payer SELFPAY ==
--- NOTE | 2022-02-19 07:33 | CT_ITS ---
FINAL REPORT CLINICAL HISTORY: . eval for cad FINDINGS: CT CORONARY CALCIUM SCORE W/O TECHNIQUE: Thin-section axial images were obtained through the heart and coronary arteries per CT coronary calcium score protocol. This study was performed with techniques to keep radiation doses as low as reasonably achievable (ALARA). Individualized dose reduction techniques using automated exposure control or adjustment of mA and/or kV according to the patient's size were employed. FINDINGS: On the axial images, there is calcification within the LAD and its branches.. This gives a coronary artery calcium score of 197 based on the Agatston scale. This coronary artery calcium score places the patient within the 74th percentile based on age and gender. The heart size is normal. There is no pleural or pericardial effusion. Limited evaluation of the lungs reveal no suspicious nodule. There is scarring at the lung bases. IMPRESSION: 74th percentile.. Reviewed, Interpreted and Dictated by Serge Hung III, MD Transcribed by Elissa Kwan Authenticated and [facility]
== END ==
PROVIDERS: PCP Family Medicine; Visit Provider Internal Medicine Cardiovascular Disease
DX: I10 Essential (primary) hypertension (principal); E78.5 Hyperlipidemia, unspecified; Z86.79 Personal history of other diseases of the circulatory system
CPT/HCPCS: 75571

== ENCOUNTER → 2022-02-20 10:49 | Outpatient (CLI) | payer MEDICARE, BC, SELFPAY ==
[2022-02-20 11:55] LABS: Anion Gap 12.7 mEq/L (5-15); Blood Urea Nitrogen 46 mg/dl (7-17); Calcium 8.9 mg/dl (8.4-10.2); Carbon Dioxide 33 mmol/L (22.0-30.0); Chloride 99 mmol/L (98-107); Estimated Glomerular Filt Rate 32 ml/min (>60); GFR (African American) 38 ML/MIN (>60); Glucose 129 mg/dl (74-100); Potassium 4.7 mmoL/L (3.5-5.1); Sodium 140 mmol/L (136-145)
== END ==
PROVIDERS: PCP Family Medicine; Visit Provider Internal Medicine Cardiovascular Disease
DX: E78.5 Hyperlipidemia, unspecified (principal); I10 Essential (primary) hypertension; R06.00 Dyspnea, unspecified; Z86.79 Personal history of other diseases of the circulatory system
CPT/HCPCS: 36415; 80048

== ENCOUNTER → 2022-02-27 12:06 | Outpatient (CLI) | payer MEDICARE, BC, SELFPAY ==
[2022-02-27 15:24] LABS: Blood Urea Nitrogen 57 mg/dl (7-17); Calcium 9.1 mg/dl (8.4-10.2); Carbon Dioxide 29 mmol/L (22.0-30.0); Chloride 99 mmol/L (98-107); Estimated Glomerular Filt Rate 17 ml/min (>60); GFR (African American) 20 ML/MIN (>60); Glucose 114 mg/dl (74-100); Sodium 140 mmol/L (136-145)
== END ==
PROVIDERS: PCP Family Medicine; Visit Provider Internal Medicine Cardiovascular Disease
DX: R06.00 Dyspnea, unspecified (principal); I10 Essential (primary) hypertension; E78.5 Hyperlipidemia, unspecified; Z86.79 Personal history of other diseases of the circulatory system
CPT/HCPCS: 36415; 80048

== ENCOUNTER → 2022-03-12 10:43 | Outpatient (CLI) | payer MEDICARE, BC, SELFPAY ==
[2022-03-12 11:46] LABS: Anion Gap 10.7 mEq/L (5-15); Blood Urea Nitrogen 24 mg/dl (7-17); Carbon Dioxide 30 mmol/L (22.0-30.0); Chloride 103 mmol/L (98-107); Estimated Glomerular Filt Rate 40 ml/min (>60); GFR (African American) 49 ML/MIN (>60); Glucose 134 mg/dl (74-100); Potassium 4.7 mmoL/L (3.5-5.1); Sodium 139 mmol/L (136-145)
== END ==
PROVIDERS: PCP Family Medicine; Visit Provider Physician Assistant
DX: I10 Essential (primary) hypertension (principal); E78.5 Hyperlipidemia, unspecified; Z86.79 Personal history of other diseases of the circulatory system
CPT/HCPCS: 36415; 80048

== ENCOUNTER → 2022-04-02 09:30 | Outpatient (CLI) | payer MEDICARE, BC, SELFPAY ==
[2022-04-02 10:55] LABS: Anion Gap 8.1 mEq/L (5-15); Blood Urea Nitrogen 51 mg/dl (7-17); Carbon Dioxide 32 mmol/L (22.0-30.0); Chloride 102 mmol/L (98-107); Estimated Glomerular Filt Rate 34 ml/min (>60); GFR (African American) 41 ML/MIN (>60); Glucose 156 mg/dl (74-100); Potassium 4.1 mmoL/L (3.5-5.1); Sodium 138 mmol/L (136-145)
== END ==
PROVIDERS: Physician Assistant; PCP Family Medicine; Visit Provider Internal Medicine
DX: E78.5 Hyperlipidemia, unspecified (principal); I10 Essential (primary) hypertension; R06.00 Dyspnea, unspecified; Z86.79 Personal history of other diseases of the circulatory system
CPT/HCPCS: 36415; 80048

== ENCOUNTER → 2022-04-30 08:57 | Outpatient (CLI) | payer MEDICARE, BC, SELFPAY ==
[2022-04-30 10:02] LABS: Anion Gap 11.3 mEq/L (5-15); Blood Urea Nitrogen 42 mg/dl (7-17); Calcium 8.5 mg/dl (8.4-10.2); Carbon Dioxide 31 mmol/L (22.0-30.0); Chloride 99 mmol/L (98-107); Estimated Glomerular Filt Rate 34 ml/min (>60); GFR (African American) 41 ML/MIN (>60); Glucose 110 mg/dl (74-100); Potassium 4.3 mmoL/L (3.5-5.1); Sodium 137 mmol/L (136-145)
== END ==
PROVIDERS: PCP Family Medicine; Visit Provider Physician Assistant
DX: E11.69 Type 2 diabetes mellitus with other specified complication (principal); E78.5 Hyperlipidemia, unspecified; I10 Essential (primary) hypertension; R94.31 Abnormal electrocardiogram [ECG] [EKG]; Z86.79 Personal history of other diseases of the circulatory system
CPT/HCPCS: 36415; 80048

== ENCOUNTER → 2022-07-30 07:43 | Outpatient (CLI) | payer MEDICARE, BC, SELFPAY | PROVIDERS: PCP Family Medicine; Visit Provider Family Medicine | DX: R06.02 Shortness of breath (principal); R60.0 Localized edema | CPT/HCPCS: 93306 ==

== ENCOUNTER → 2022-09-14 10:59 | Outpatient (CLI) | payer MEDICARE, BC, SELFPAY | PROVIDERS: PCP Family Medicine; Visit Provider Internal Medicine | DX: I49.8 Other specified cardiac arrhythmias (principal); R06.00 Dyspnea, unspecified; R60.9 Edema, unspecified; R94.31 Abnormal electrocardiogram [ECG] [EKG] | CPT/HCPCS: 93270 ==

== ENCOUNTER → 2022-11-03 10:49 | Outpatient (CLI) | payer MEDICARE, BC, SELFPAY | PROVIDERS: PCP Registered Nurse; Visit Provider Physician Assistant | DX: I48.0 Paroxysmal atrial fibrillation (principal); R94.31 Abnormal electrocardiogram [ECG] [EKG]; I49.8 Other specified cardiac arrhythmias | CPT/HCPCS: 93270 ==

== ENCOUNTER 2022-11-05 13:00 | Outpatient (RCR) | payer MEDICARE, BC, SELFPAY | END 2022-11-05 14:00 | disposition home or self-care (01) | LOC: PT 13:00 | PROVIDERS: PCP Family Medicine; Visit Provider Orthopaedic Surgery Adult Reconstructive Orthopaedic Surgery | DX: M54.16 Radiculopathy, lumbar region (principal); M54.50 Low back pain, unspecified | CPT/HCPCS: 97012; 97110; 97140; 97163 ==

== ENCOUNTER → 2022-12-11 14:55 | Outpatient (CLI) | payer MEDICARE, BC, SELFPAY ==
[2022-12-11 15:01] LABS: Adenovirus,PCR Not Detected (NotDetected); Coronavirus 19, PCR Not Detected (NotDetected); Coronavirus 229E Not Detected (NotDetected); Coronavirus NL63 Not Detected (NotDetected); Coronavirus OC43 Not Detected (NotDetected); Coronovirus HKU1,PCR Not Detected (NotDetected); Human Metapneumovirus Not Detected (NotDetected); Influenza A, PCR Not Detected (NotDetected); Influenza AH1, 2009 Not Detected (NotDetected); Influenza AH1, PCR Not Detected (NotDetected); Influenza AH3,PCR Not Detected (NotDetected); Influenza B, PCR Not Detected (NotDetected); Parainfluenza 1, PCR Not Detected (NotDetected); Parainfluenza 2, PCR Not Detected (NotDetected); Parainfluenza 3, PCR Not Detected (NotDetected); Parainfluenza 4, PCR Not Detected (NotDetected); Rhinovirus/Enterovirus Not Detected (NotDetected)
[2022-12-11 18:11] LABS: Respiratory Syncytial Virus Detected (NotDetected)
== END ==
PROVIDERS: PCP Family Medicine; Visit Provider Family Medicine
DX: Z20.822 Contact with and (suspected) exposure to COVID-19 (principal); B97.4 Respiratory syncytial virus as the cause of diseases classified elsewhere; R06.09 Other forms of dyspnea; B33.8 Other specified viral diseases; R05.4 Cough syncope
CPT/HCPCS: 87632; 87635

== ENCOUNTER 2022-12-18 15:08 | Emergency (ER) | payer MEDICARE, BC, SELFPAY ==
--- NOTE | 2022-12-18 15:14 | EXP.UTC ---
Discharge Plan Disposition Patient Disposition: Home, Self-Care Condition: Fair Prescriptions Prescriptions: New azithromycin [Zithromax Z-Steven] 250 mg tablet See Rx Instructions .ROUTE .COMPLEX Qty: 6 0RF Rx Instructions: For 250 mg dose pack: take 500 mg today (day 1), then 250 mg for 4 days (days 2-5) prednisone 20 mg tablet 20 mg PO BID Qty: 10 0RF guaifenesin [Mucinex] 1,200 mg tablet extended release 12hr 1,200 mg PO BID Qty: 20 0RF promethazine-DM 6.25-15 mg/5 mL syrup 5 ml PO Q6H PRN (Reason: Cough) Qty: 180 0RF No Action pioglitazone [Actos] 30 mg tablet 30 mg PO DAILY melatonin 10 mg capsule 10 mg PO HS PRN (Reason: Sleep) ferrous gluconate 324 mg (37.5 mg iron) tablet 324 mg PO DAILY Trintellix 20 mg tablet 20 mg PO DAILY Januvia 100 mg tablet 100 mg PO DAILY clonazepam [Klonopin] 1 mg tablet 1 mg PO BID guanfacine 2 mg tablet 2 mg PO QHS calcium carbonate [Calcium 600] 600 mg calcium (1,500 mg) tablet 600 mg PO DAILY pantoprazole 40 mg tablet,delayed release (DR/EC) 40 mg PO DAILY Synjardy XR 12.5-1,000 mg tablet, IR - ER, biphasic 24hr 1 tab PO DAILY amitriptyline 25 mg tablet 25 mg PO HS 90 Days Qty: 90 1RF aspirin 81 mg tablet 81 mg PO DAILY Kerendia 20 mg tablet 20 mg PO DAILY rosuvastatin [Crestor] 20 mg tablet 10 mg PO DAILY carvedilol [Coreg] 12.5 mg tablet 12.5 mg PO BID Qty: 60 5RF Rx Instructions: must administer with a meal/food candesartan-hydrochlorothiazid 32-25 mg tablet 1 tab PO DAILY Qty: 30 3RF amlodipine 5 mg tablet 5 mg PO DAILY Qty: 90 3RF multivitamin 1 EACH tablet 1 each PO DAILY Referrals Follow up/Referrals: Chase Gunn MD [Primary Care Provider] - See instructions Clinical Impressions Clinical Impression: Respiratory syncytial virus (RSV), Cough syncope Instructions Patient Instructions: DI for Cough -- Adult Discharge ED Provider: Carrie Villatoro [facility] HPI General Stated complaint: COUGH Time Seen by Provider: 12/18/22 15:47 History of Present Illness Provider Complaint: Patient has had cough for over a week. Saw PCP last week - given Bromfed. It did not help. Was then given Tessalon Perles. Also not effective. Cannot quit coughing. Cough non productive. Coughs so hard she gets dizzy. Fell last night from coughing. Diagnosed with RSV. No fever. Onset (ago): week(s) (1) Location: chest Relieving factors: none Exacerbating factors: none Associated symptoms: cough Treatments prior to arrival: none Related Data Home Medications Medication Instructions Recorded Confirmed calcium carbonate 600 mg calcium 600 mg PO DAILY Supplement 09/12/18 11/24/22 (1,500 mg) tablet (Calcium) clonazepam 1 mg tablet (Klonopin) 1 mg PO BID Anxiety 09/12/18 11/24/22 guanfacine 2 mg tablet 2 mg PO QHS Heartburn 09/12/18 11/24/22 melatonin 10 mg capsule 10 mg PO HS PRN Sleep 04/01/20 11/24/22 pioglitazone 30 mg tablet (Actos) 30 mg PO DAILY * 04/01/20 11/24/22 multivitamin 1 each PO DAILY Supplement 04/09/20 11/24/22 pantoprazole 40 mg tablet,delayed 40 mg PO DAILY . 04/30/20 11/24/22 release empagliflozin 12.5 mg-metformin ER 1 tab PO DAILY . 06/23/21 11/24/22 1,000 mg tablet,extended rel 24 hr (Synjardy XR) ferrous gluconate 324 mg (37.5 mg 324 mg PO DAILY . 10/30/21 11/24/22 iron) tablet sitagliptin phosphate 100 mg 100 mg PO DAILY . 10/30/21 11/24/22 tablet (Januvia) vortioxetine 20 mg tablet 20 mg PO DAILY . 10/30/21 11/24/22 (Trintellix) aspirin 81 mg tablet 81 mg PO DAILY 09/14/22 11/24/22 finerenone 20 mg tablet (Kerendia) 20 mg PO DAILY 09/14/22 11/24/22 rosuvastatin 20 mg tablet (Crestor) 10 mg PO DAILY 09/14/22 11/24/22 Previous Rx's Medication Instructions Recorded amitriptyline 25 mg tablet 25 mg PO HS headache, insomnia 90 05/16/22 days #90 tabs carvedilol 12.5 m
[2022-12-18 15:15] VITALS: BP 136/84; PULSE 89; RESP 21; TEMP 37.1; O2SAT 96; BMI 37.2
[2022-12-18 15:50] VITALS: BP 136/84; PULSE 89; RESP 21; TEMP 37.1; O2SAT 96
== END 2022-12-18 15:54 | disposition home or self-care (01) ==
PROVIDERS: Emergency Provider Physician Assistant; PCP Family Medicine
DX: R05.1 Acute cough (principal); B97.4 Respiratory syncytial virus as the cause of diseases classified elsewhere; R42 Dizziness and giddiness; E11.9 Type 2 diabetes mellitus without complications; I48.0 Paroxysmal atrial fibrillation; E78.5 Hyperlipidemia, unspecified; I10 Essential (primary) hypertension; Z79.84 Long term (current) use of oral hypoglycemic drugs; W19.XXXA Unspecified fall, initial encounter
CPT/HCPCS: 99204; 99212; G0463

== ENCOUNTER → 2022-12-25 11:59 | Outpatient (CLI) | payer MEDICARE, BC, SELFPAY ==
--- NOTE | 2022-12-25 12:20 | XR_ITS ---
FINAL REPORT CLINICAL HISTORY: BRONCHITIS FINDINGS: 2 views of the chest were obtained . The heart is normal in size. The mediastinum is within normal limits. The lungs are clear. There is no pneumothorax. Osseous structures are unremarkable. IMPRESSION: No acute cardiopulmonary process. Reviewed, Interpreted and Dictated by Barrera Melchor MD Transcribed by Elissa Kwan Authenticated and . [facility]
[2022-12-25 12:22] LABS: Basophils % 0.2 % (0.1-2.0); Eosinophils # 0.3 K/mm3 (0.0-0.4); Eosinophils % 2.9 % (0.1-12.0); Hematocrit 40.1 % (37.0-47.0); Hemoglobin 13.5 g/dL (12.2-16.2); Lymphocytes # 1.8 K/mm3 (0.7-4.5); Lymphocytes % 17.9 % (10-50); Mean Corpuscular HGB Conc 33.8 g/dL (31.8-35.4); Mean Corpuscular Hemoglobin 34.2 pg (27.0-31.2); Mean Corpuscular Volume 101.4 fl (81-99); Mean Platelet Volume 6.8 fl (7.4-10.4); Monocytes # 0.6 K/mm3 (0.1-1.0); Monocytes % 6.4 % (1.7-9.3); Neutrophils # 7.3 K/mm3 (1.8-7.8); Neutrophils % 72.7 % (37.0-80.0); Platelet Count 375 K/mm3 (142-424); Red Blood Count 3.96 M/mm3 (4.20-5.40); Red Cell Distribution Width 13.6 % (11.5-17.5)
== END ==
PROVIDERS: PCP Family Medicine; Visit Provider Family Medicine
DX: J21.0 Acute bronchiolitis due to respiratory syncytial virus (principal)
CPT/HCPCS: 36415; 71046; 85025

== ENCOUNTER 2022-12-30 20:38 | Observation (INO) | payer MEDICARE, BC, SELFPAY ==
[2022-12-30 20:38] VITALS: BP 128/58; PULSE 91; RESP 18; TEMP 36.8; O2SAT 95; BMI 32.3
[2022-12-30 21:01] VITALS: BP 118/58; PULSE 86; O2SAT 95
[2022-12-30 21:13] LABS: Chloride 101 mmol/L (98-107); Potassium 4.7 mmoL/L (3.5-5.1); Sodium 134 mmol/L (136-145)
[2022-12-30 21:16] LABS: Alanine Aminotransferase 38 U/L (12-78); Albumin Level 3.5 g/dl (3.5-5.0); Albumin/Globulin Ratio 1.3 (1.1-1.8); Alkaline Phosphatase 96 U/L (38-126); Anion Gap 13.7 mEq/L (5-15); Aspartate Amino Transferase 31 U/L (14-36); Bilirubin,Total 0.5 mg/dl (0.2-1.3); Blood Urea Nitrogen 43 mg/dl (7-17); Carbon Dioxide 24 mmol/L (22.0-30.0); Creatinine Clearance Estimated 24 mL/min (50-200); Estimated Glomerular Filt Rate 16 ml/min (>60); GFR (African American) 19 ML/MIN (>60); Globulin 2.8 g/dL (1.3-3.2); Total Protein,Serum 6.3 g/dl (6.3-8.2)
[2022-12-30 21:17] LABS: Calcium 8.5 mg/dl (8.4-10.2); Glucose 129 mg/dl (74-100)
[2022-12-30 21:19] LABS: Basophils % 0.4 % (0.1-2.0); Eosinophils # 0.1 K/mm3 (0.0-0.4); Eosinophils % 2.2 % (0.1-12.0); Hematocrit 35.8 % (37.0-47.0); Hemoglobin 11.5 g/dL (12.2-16.2); Lymphocytes # 1.1 K/mm3 (0.7-4.5); Lymphocytes % 21.5 % (10-50); Mean Corpuscular Volume 103.2 fl (81-99); Monocytes # 0.7 K/mm3 (0.1-1.0); Monocytes % 14.2 % (1.7-9.3); Neutrophils # 3.2 K/mm3 (1.8-7.8); Neutrophils % 61.8 % (37.0-80.0); Platelet Count 307 K/mm3 (142-424); Red Blood Count 3.47 M/mm3 (4.20-5.40); White Blood Count 5.2 K/mm3 (4.8-10.8)
[2022-12-30 21:30] VITALS: BP 115/54; PULSE 90; O2SAT 95
--- NOTE | 2022-12-30 21:46 | CT_ITS ---
PROCEDURE INFORMATION: Exam: CT Abdomen And Pelvis Without Contrast Exam date and time: 12/30/2022 10:18 PM Age: 72 years old Clinical indication: Nausea and vomiting and other: Diarrhea; Abdominal pain; Generalized; Additional info: Diffuse abd pain, n/v/d pretty TECHNIQUE: Imaging protocol: Computed tomography of the abdomen and pelvis without contrast. Radiation optimization: All CT scans at this facility use at least one of these dose optimization techniques: automated exposure control; mA and/or kV adjustment per patient size (includes targeted exams where dose is matched to clinical indication); or iterative reconstruction. REPORTING DATA: Count of CT and Cardiac NM exams in prior 12 months: This patient has received [address] and 0 known cardiac nuclear medicine studies in the 12 months prior to the current study. COMPARISON: CR XR HIP RT 2-3V W/PELVIS 09/03/2020 9:01 AM FINDINGS: Lungs: Mild atelectasis. Heart: Minimal pericardial effusion. Coronary arteries: Coronary artery calcifications. Liver: Normal. No mass. Gallbladder and bile ducts: Normal. No calcified stones. No ductal dilation. Pancreas: Fatty atrophy. No ductal dilation. Spleen: Normal. No splenomegaly. Adrenal glands: Normal. No mass. Kidneys and ureters: 2.1 cm midpole cyst requiring no further workup. No hydronephrosis. Stomach and bowel: Unremarkable. No obstruction. No mucosal thickening. Appendix: No evidence of appendicitis. Intraperitoneal space: Unremarkable. No free air. No significant fluid collection. Vasculature: Mild to moderate atherosclerotic changes of the abdominal aorta and iliac arteries without aneurysmal dilatation. Lymph nodes: Unremarkable. No enlarged lymph nodes. Urinary bladder: Unremarkable as visualized. Reproductive: 5.4 x 3.9 x 3.7 cm soft tissue focus abutting the posterior lower uterine segment which contains a few punctate calcifications. Bones/joints: Degenerative changes. No acute fracture. Soft tissues: Implantable right flank neurostimulator device with leads terminating at the right sacral plexus. IMPRESSION: 1. No acute findings. 2. Nonspecific 5.4 x 3.9 x 3.7 cm soft tissue mass abutting the posterior lower uterine segment. Recommend nonemergent MRI pelvis for further evaluation.
--- NOTE | 2022-12-30 21:48 | HMH.EDGENADL ---
Discharge Plan Disposition Patient Disposition: Admitted Chief Complaint: Nausea/Vomiting/Diarrhea Prescriptions Prescriptions: No Action pioglitazone [Actos] 30 mg tablet 30 mg PO DAILY melatonin 10 mg capsule 10 mg PO HS PRN (Reason: Sleep) Trintellix 20 mg tablet 20 mg PO DAILY Januvia 100 mg tablet 100 mg PO DAILY clonazepam [Klonopin] 1 mg tablet 1 mg PO BID guanfacine 2 mg tablet 2 mg PO QHS calcium carbonate [Calcium 600] 600 mg calcium (1,500 mg) tablet 600 mg PO DAILY pantoprazole 40 mg tablet,delayed release (DR/EC) 40 mg PO DAILY Synjardy XR 12.5-1,000 mg tablet, IR - ER, biphasic 24hr 1 tab PO DAILY amitriptyline 25 mg tablet 25 mg PO HS 90 Days Qty: 90 1RF aspirin 81 mg tablet 81 mg PO DAILY Kerendia 20 mg tablet 20 mg PO DAILY rosuvastatin [Crestor] 20 mg tablet 10 mg PO DAILY carvedilol [Coreg] 12.5 mg tablet 12.5 mg PO BID Qty: 60 5RF Rx Instructions: must administer with a meal/food candesartan-hydrochlorothiazid 32-25 mg tablet 1 tab PO DAILY Qty: 30 3RF amlodipine 5 mg tablet 5 mg PO DAILY Qty: 90 3RF multivitamin 1 EACH tablet 1 each PO DAILY ferrous sulfate 325 mg (65 mg iron) Capsule, Extended Release 325 mg PO DAILY Referrals Follow up/Referrals: Chase Gunn MD [Primary Care Provider] - See instructions Clinical Impressions Clinical Impression: Nausea vomiting and diarrhea, KLAUS (acute kidney injury) Instructions Patient Instructions: DI for Diarrhea and Traveler's Diarrhea -- Adult, DI for Diarrhea and Traveler's Diarrhea -- Child, DI for Nausea -- Adult, DI for Nausea -- Child Discharge ED Provider: Zev Krishnamurthy General Adult HPI <Luba Johnson MD - Last Filed: 12/30/22 23:19> General Chief complaint: Nausea/Vomiting/Diarrhea Stated complaint: Weakness Time Seen by Provider: 12/30/22 21:38 Mode of Arrival: EMS Source of Information: Patient and EMS Limitations: No Limitations Description of Symptoms (Recalled from ER Triage Doc. by RN): Patient reports that has been sick for several weeks, first diagnosed with RSV, then bronchitis. States they started her on an antibiotic approximately 1 week ago. On Wednesday patient began having N/V/D, last soft stool at 7pm, last episode of emesis yesterday evening. Patient reports she has eaten and drank today without emesis. Stool described as soft non-watery. Patient reports generalized weakness progressing since Wednesday that made it difficult for her to walk. EMS reports initial blood pressure on scene was 94/44. History of Present Illness HPI narrative: Patient is a 72-year-old female presenting today after 1 month history of viral symptoms. She initially had a diagnosis of RSV and had bronchitis though symptoms have largely improved but over the last week she has had nausea vomiting and diarrhea. She states her diarrhea has been daily and she has had decreased p.o. intake and has significant fatigue even to the point of falling recently. No syncopal episodes. She does have diffuse abdominal discomfort and crampy abdominal pain primarily when she is having a bowel movement states she has very mild pain at the moment. No fevers or chills. No blood in her stool. Related Data Home Medications Medication Instructions Recorded Confirmed calcium carbonate 600 mg calcium 600 mg PO DAILY Supplement 09/12/18 12/30/22 (1,500 mg) tablet (Calcium) clonazepam 1 mg tablet (Klonopin) 1 mg PO BID Anxiety 09/12/18 12/30/22 guanfacine 2 mg tablet 2 mg PO QHS Heartburn 09/12/18 12/30/22 melatonin 10 mg capsule 10 mg PO HS PRN Sleep 04/01/20 12/30/22 pioglitazone 30 mg tablet (Actos) 30 mg PO DAILY * 04/01/20 12/30/22 multivitamin 1 each PO DAILY Supplement 04/09/20 12/30/22 pantoprazole 40 mg tablet,delayed 40 mg PO DAILY . 04/30/20 12/30/22 release empagliflozin 12.5 mg-metformin ER 1 tab PO DAILY . 06/23/21 12/30/22 1,000 m
[2022-12-30 22:00] VITALS: BP 106/59; PULSE 80; O2SAT 95
[2022-12-30 22:12] LABS: Lipase 19 U/L (23-300)
[2022-12-30 22:13] LABS: Magnesium 1.8 mg/dl (1.6-2.3); Phosphorous 4.2 mg/dl (2.5-4.5)
[2022-12-30 22:26] LABS: Lactic Acid 1.6 mmol/L (0.7-2.1)
[2022-12-30 22:30] VITALS: BP 111/56; PULSE 90; O2SAT 95
[2022-12-30 23:00] VITALS: BP 129/54; PULSE 79; O2SAT 96
--- NOTE | 2022-12-30 23:28 | PC.NURSE ---
paged dr green @ this time
--- NOTE | 2022-12-30 23:33 | PC.NURSE ---
on phone with dr green
--- NOTE | 2022-12-30 23:38 | PC.NURSE ---
notifed supervisor [facility] of admission
--- NOTE | 2022-12-30 23:40 | PC.NURSE ---
Admitting notified for admission
[2022-12-31] VITALS (7 sets, daily range): BP systolic 128–137; BP diastolic 48–61; PULSE 83–97; RESP 17–20; TEMP 36.7–37.1; O2SAT 90–95; BMI 36.1; BMI 34.8
[2022-12-31 00:05] LABS: Erythrocyte Sedimentation Rate 118 mm/hr (0-30)
--- NOTE | 2022-12-31 00:32 | PC.NURSE ---
0015 RECEIVED PHONE REPORT FROM MAR RN/ED NURSE. PATIENT IS 72 YO FEMALE. DIAGNOSIS: KLAUS/ NAUSEA,VOMITING, AND DIARRHEA. GENERALIZED WEAKNNESS.
--- NOTE | 2022-12-31 00:48 | PC.NURSE ---
Patient arrived to floor via wheelchair at 00:47.
--- NOTE | 2022-12-31 01:28 | PC.NURSE ---
PATIENT DECLINED MEDS TO BED.
[2022-12-31 05:57] LABS: POC Glucose,Bedside 97 (70-110)
--- NOTE | 2022-12-31 06:13 | PC.NURSE ---
PATIENT HAS HAD A QUIET NIGHT SINCE ADMISSION. NO C/O N/V/D. NO C/O PAIN. FSBS THIS AM IS 97. IVFs LR INFUSING AT 100 ML/HR/PUMP.
[2022-12-31 08:13] LABS: Anion Gap 15.6 mEq/L (5-15); Blood Urea Nitrogen 37 mg/dl (7-17); Calcium 8.1 mg/dl (8.4-10.2); Carbon Dioxide 19 mmol/L (22.0-30.0); Chloride 103 mmol/L (98-107); Creatinine Clearance Estimated 32 mL/min (50-200); Estimated Glomerular Filt Rate 20 ml/min (>60); GFR (African American) 24 ML/MIN (>60); Glucose 89 mg/dl (74-100); Potassium 4.6 mmoL/L (3.5-5.1); Sodium 133 mmol/L (136-145)
[2022-12-31 08:43] LABS: Adenovirus F 40/41, stool Not Detected (NotDetected); Astrovirus Not Detected (NotDetected); Campylobacter Not Detected (NotDetected); Clostridium Difficile A/B, PCR Not Detected (NotDetected); Cryptosporidium Not Detected (NotDetected); Cyclospora Cayetanesis Not Detected (NotDetected); Entamoeba histolytica Not Detected (NotDetected); Enteroaggregative E coli Not Detected (NotDetected); Enteropathogenic E coli Not Detected (NotDetected); Enterotoxigenic E coli Not Detected (NotDetected); Giardia lamblia Not Detected (NotDetected); Norovirus Not Detected (NotDetected); Plesimonas Shigalloides, PCR Not Detected (NotDetected); Rotavirus A Not Detected (NotDetected); Salmonella, PCR Not Detected (NotDetected); Shiga-like toxin E coli Not Detected (NotDetected); Shigella Enterovasive E coli Not Detected (NotDetected); Vibrio Cholerae Not Detected (NotDetected); Vibrio, PCR Not Detected (NotDetected); Yersinia Entercolitica, PCR Not Detected (NotDetected)
--- NOTE | 2022-12-31 09:52 | EXP.HP ---
History of Present Illness *Reason for visit:: Abdominal pain, vomiting, diarrhea. *History of present illness: This 72-year-old white female contracted RSV a month ago and had rather severe episode of bronchitis. She has not felt well since then. A week ago she was given antibiotics and then subsequently developed nausea, vomiting and diarrhea. She presented to the emergency room on the evening of 12/30 and was admitted due to the abdominal discomfort, diarrhea, and evidence of acute kidney injury. She takes pantoprazole on a regular basis. She is diabetic and takes diabetic medications including metformin. Obviously the metformin and the pantoprazole can contribute to kidney issues. She already takes Karendia and Jardiance. In the emergency room a stool specimen was ordered for PCR panel. This is pending. C. difficile would be in the differential diagnosis. Past history of gastritis noted. This morning she does not feel a whole lot better. She has not had vomiting since she was admitted. She did have some diarrhea this morning. She complains of a headache. [facility] Disclaimer: The information contained in this section may have been updated after the patient was seen, as this information can be updated by other users. Medical History Abnormal EKG Depression Diabetes mellitus Dyspnea Family history of heart disease History of cyst of breast History of trigger finger HLD (hyperlipidemia) HTN (hypertension) Hx of mitral valve prolapse Paroxysmal A-fib SVT (supraventricular tachycardia) Surgical History History of biopsy of temporal artery History of carpal tunnel release History of cholecystectomy History of colonoscopy History of esophagogastroduodenoscopy (EGD) History of hernia repair History of surgery aneurism repair Family History Other Family history of cardiac disorder Social History (Updated 12/31/22 @ 01:04 by Naina Frye RN) Smoking Status: Never smoker alcohol intake: never substance use type: denies use current occupational status: retired Travel in the last 8 weeks: None household members: spouse and children housing: house caffeine: Yes Meds Home Medications and Allergies Home Medications Medication Instructions Recorded Confirmed Type calcium carbonate 600 mg calcium 600 mg PO DAILY Supplement 09/12/18 12/30/22 History (1,500 mg) tablet (Calcium) clonazepam 1 mg tablet (Klonopin) 1 mg PO BID Anxiety 09/12/18 12/30/22 History melatonin 10 mg capsule 10 mg PO HS PRN Sleep 04/01/20 12/30/22 History pioglitazone 30 mg tablet (Actos) 30 mg PO DAILY * 04/01/20 12/30/22 History multivitamin 1 each PO DAILY Supplement 04/09/20 12/30/22 History pantoprazole 40 mg tablet,delayed 40 mg PO DAILY . 04/30/20 12/30/22 History release amitriptyline 25 mg tablet 25 mg PO HS headache, insomnia 90 06/23/21 12/30/22 Rx days #90 tabs empagliflozin 12.5 mg-metformin ER 1 tab PO DAILY . 06/23/21 12/30/22 History 1,000 mg tablet,extended rel 24 hr (Synjardy XR) sitagliptin phosphate 100 mg 100 mg PO DAILY . 10/30/21 12/30/22 History tablet (Januvia) aspirin 81 mg tablet 81 mg PO DAILY 09/14/22 12/30/22 History carvedilol 12.5 mg tablet (Coreg) 12.5 mg PO BID #60 tabs 09/14/22 12/30/22 Rx finerenone 20 mg tablet (Kerendia) 20 mg PO DAILY 09/14/22 12/30/22 History rosuvastatin 20 mg tablet (Crestor) 10 mg PO DAILY 09/14/22 12/30/22 History candesartan 32 1 tab PO DAILY #30 tabs 11/03/22 12/30/22 Rx mg-hydrochlorothiazide 25 mg tablet amlodipine 5 mg tablet 5 mg PO DAILY #90 tabs 11/24/22 12/30/22 Rx ferrous sulfate 325 mg (65 mg 325 mg PO DAILY 12/30/22 12/30/22 History iron) capsule,extended release guanfacine 1 mg tablet 1 mg PO HS Hypertension 12/31/22 12/31/22 History New Prescriptions to Start Presc
[2022-12-31 10:36] LABS: POC Glucose,Bedside 91 (70-110)
--- NOTE | 2022-12-31 15:20 | PC.NURSE ---
Pt A&O x4 and is currently resting in the bed. Has c/o a headache this shift. Medicated per apr. She has ambulated to the BR with assist x1. Has sat up to the chair this afternoon and tolerated well. Stool was obtained this AM. Call light within reach.
[2022-12-31 17:54] LABS: POC Glucose,Bedside 127 (70-110)
[2022-12-31 20:53] LABS: POC Glucose,Bedside 119 (70-110)
[2023-01-01 04:00] VITALS: BP 112/49; PULSE 81; RESP 18; TEMP 36.9; O2SAT 95; BMI 34.5
--- NOTE | 2023-01-01 05:45 | PC.NURSE ---
PATIENT REQUIRES WALKER AND ASSIST X 1 TO GO TO BR. A/O X 4. COOPERATIVE. FSBS THIS AM WAS 96. OLD BRUISE TO COCCYX AREA FROM FALL AT HOME IS TENDER, OTHERWISE, NO C/O PAIN. NO DIARRHEA STOOLS REPORTED THIS SHIFT.
[2023-01-01 05:59] LABS: POC Glucose,Bedside 96 (70-110)
[2023-01-01 07:06] LABS: Basophils % 0.3 % (0.1-2.0); Eosinophils # 0.1 K/mm3 (0.0-0.4); Eosinophils % 1.6 % (0.1-12.0); Hematocrit 30.2 % (37.0-47.0); Hemoglobin 10.2 g/dL (12.2-16.2); Lymphocytes # 1.1 K/mm3 (0.7-4.5); Lymphocytes % 22.1 % (10-50); Mean Corpuscular HGB Conc 33.8 g/dL (31.8-35.4); Mean Corpuscular Hemoglobin 34.2 pg (27.0-31.2); Mean Corpuscular Volume 101.2 fl (81-99); Mean Platelet Volume 9.1 fl (7.4-10.4); Monocytes # 0.5 K/mm3 (0.1-1.0); Monocytes % 10.4 % (1.7-9.3); Neutrophils # 3.2 K/mm3 (1.8-7.8); Neutrophils % 65.6 % (37.0-80.0); Platelet Count 248 K/mm3 (142-424); Red Blood Count 2.98 M/mm3 (4.20-5.40); Red Cell Distribution Width 14.3 % (11.5-17.5); White Blood Count 4.9 K/mm3 (4.8-10.8)
[2023-01-01 07:11] LABS: Alanine Aminotransferase 35 U/L (12-78); Albumin/Globulin Ratio 1.2 (1.1-1.8); Alkaline Phosphatase 98 U/L (38-126); Anion Gap 12.3 mEq/L (5-15); Aspartate Amino Transferase 78 U/L (14-36); Bilirubin,Total 0.3 mg/dl (0.2-1.3); Blood Urea Nitrogen 25 mg/dl (7-17); Calcium 8.3 mg/dl (8.4-10.2); Carbon Dioxide 20 mmol/L (22.0-30.0); Chloride 106 mmol/L (98-107); Creatinine Clearance Estimated 50 mL/min (50-200); Estimated Glomerular Filt Rate 34 ml/min (>60); GFR (African American) 41 ML/MIN (>60); Globulin 2.5 g/dL (1.3-3.2); Glucose 92 mg/dl (74-100); Potassium 4.3 mmoL/L (3.5-5.1); Sodium 134 mmol/L (136-145); Total Protein,Serum 5.5 g/dl (6.3-8.2)
[2023-01-01 07:29] VITALS: BP 132/56; PULSE 83; RESP 18; TEMP 37.1; O2SAT 96
[2023-01-01 08:42] LABS: Coronavirus 19, PCR Not Detected (NotDetected); Influenza A, PCR Not Detected (NotDetected); Influenza B, PCR Not Detected (NotDetected)
--- NOTE | 2023-01-01 08:47 | EXP.ACUTE.PN ---
Subjective *Date: 01/01/23 *Time: 10:48 Interval history: Patient is feeling better today. Has only had one episode of diarrhea, no vomiting. She was able to rest. She has developed a cough and some congestion. Medical Exam Vital signs and Labs for Last 24 Hours: Vital Signs Temp Pulse Resp BP Pulse Ox O2 Del Method 01/01/23 07:29 98.7 F 83 18 132/56 L 96 Room Air 01/01/23 06:32 Room Air 01/01/23 04:00 98.4 F 81 18 112/49 L 95 Room Air 01/01/23 05:00 Room Air 01/01/23 03:00 Room Air 01/01/23 00:55 Room Air 12/31/22 23:00 Room Air 12/31/22 21:00 Room Air 12/31/22 20:00 94 L Room Air 12/31/22 19:47 98.8 F 83 18 134/48 L 94 L Room Air 12/31/22 18:28 Room Air 12/31/22 17:00 Room Air 12/31/22 15:51 98.3 F 87 17 129/61 95 Room Air 12/31/22 15:00 Room Air 12/31/22 13:00 Room Air 12/31/22 10:44 Room Air 12/31/22 09:00 Room Air Intake and Output 12/31/22 01/01/23 01/01/23 19:59 03:59 11:59 Intake Total 1282 / 3102 480 / 3102 1340 / 3102 Output Total 0 / 650 450 / 650 200 / 650 Balance 1282 / 2452 30 / 2452 1140 / 2452 Intake: Intake, Oral Amount 710 / 1550 480 / 1550 360 / 1550 Intake, Total IV Amount 572 / 1552 980 / 1552 Lactated Ringers 1000ML 1,000 572 / 1552 980 / 1552 ml @ 100 mls/hr IV .Q10H [facility] Rx #:[id number] Output: Output, Urine Amount 0 / 650 450 / 650 200 / 650 Other: Number of Unmeasured Voids 1 0 Number of Bowel Movements 1 1 Weight 207 lb 6.4 oz Patient Weight 01/01/23 11:59 Weight 207 lb 6.4 oz Laboratory Results - last 24 hr 12/31/22 07:22: Sodium 133 L, Potassium 4.6, Chloride 103, Carbon Dioxide 19 L, Anion Gap 15.6 H, BUN 37 H, Creatinine 2.40 H, Estimated Creat Clear 32, Estimated GFR 20 L, Est GFR ( Amer) 24 L D, Glucose 89 D, Calcium 8.1 L 12/31/22 10:28: POC Glucose 91 12/31/22 17:46: POC Glucose 127 H 12/31/22 20:42: POC Glucose 119 H 01/01/23 04:54: POC Glucose 96 01/01/23 05:55: WBC 4.9, RBC 2.98 L, Hgb 10.2 L, Hct 30.2 L, MCV 101.2 H, MCH 34.2 H, MCHC 33.8, RDW 14.3, Plt Count 248, MPV 9.1, Neut % (Auto) 65.6, Lymph % (Auto) 22.1, Titus % (Auto) 10.4 H, Eos % (Auto) 1.6, Baso % (Auto) 0.3, Neut # (Auto) 3.2, Lymph # (Auto) 1.1, Titus # (Auto) 0.5, Eos # (Auto) 0.1, Baso # (Auto) 0.0, Sodium 134 L, Potassium 4.3, Chloride 106, Carbon Dioxide 20 L, Anion Gap 12.3, BUN 25 H D, Creatinine 1.50 H D, Estimated Creat Clear 50, Estimated GFR 34 L, Est GFR ( Amer) 41 L D, Glucose 92, Calcium 8.3 L, Total Bilirubin 0.3, AST 78 H D, ALT 35, Alkaline Phosphatase 98, Total Protein 5.5 L, Albumin 3.0 L D, Globulin 2.5, Albumin/Globulin Ratio 1.2 I & O for Labs for Last 24 Hours: Intake & Output 12/29/22 12/30/22 12/31/22 01/01/23 11:59 11:59 11:59 11:59 Intake Total 1250 / 1250 3102 / 3102 Output Total 350 / 350 650 / 650 Balance 900 / 900 2452 / 2452 Weight 209 lb 4 oz 207 lb 6.4 oz Constitutional: Present no acute distress Respiratory: Present CTA bilaterally Cardiac: Present Reg Rate and Rhythm GI: Present soft and normal bowel sounds; Absent distention, tenderness or guarding Extremities: Absent edema Skin: Present intact Neuro: Present alert, awake and oriented x 3 Assessment and Plan *Assessment and plan (1) Nausea vomiting and diarrhea: Status: Acute Category: Medical Code(s): R11.2 - Nausea with vomiting, unspecified; R19.7 - Diarrhea, unspecified (2) KLAUS (acute kidney injury): Status: Acute Category: Medical Code(s): N17.9 - Acute kidney failure, unspecified (3) Anemia, iron deficiency: Status: Acute Category: Medical Code(s): D50.9 - Iron deficiency anemia, unspecified (4) Diabetes mellitus: Status: Chronic Qualifiers: Diabetes mellitus complication status: with other specified complication Diabetes mellitus fpc insulin use: unspe
[2023-01-01 12:16] LABS: POC Glucose,Bedside 120 (70-110)
--- NOTE | 2023-01-01 14:16 | HMH.PTEV ---
Physical Therapy Evaluation Rehab PT IP Evaluation Start: 01/01/23 10:47 Freq: ONCE Status: Active Protocol: Document 01/01/23 14:08 DYANA (Rec: 01/01/23 14:16 DYANA [id number]) Subjective/History History History Pt is a 72 y/o female who reported to [facility] ED on 12/30 and admitted due to abdominal discomfort, diarrhea, and evidence of KLAUS. Per history & physical note, pt contracted RSV a month ago and had rather severe episode of bronchitis. She has not felt well since then. A week ago she was given antibiotics and then subsequently developed nausea, vomiting and diarrhea. Medical History:Abnormal EKG Depression Diabetes mellitus Dyspnea Family history of heart disease History of cyst of breast History of trigger finger HLD (hyperlipidemia) HTN (hypertension) Hx of mitral valve prolapse Paroxysmal A-fib SVT (supraventricular tachycardia) Subjective Subjective Pt reports she is feeling better overall. Pt reports prior to hospitalization, she lived at home with her in a single story house with 1-2 steps to enter. Pt reports her is in good health and helps take care of her when she is sick. Pt reports at baseline she was independent with ADLs. Pt reports she has a rollator she uses most of the time at baseline. New diagnosis of cancer in past 12 No months? Rehab PT IP Eval Objective Appearance Patient Behavior Appropriate,Cooperative Patient Orientation Person,Place,Name,Birthday Difficulty following instructions none Speech Pattern Clear,Appropriate Ambulation Patient Able to Ambulate Yes Ambulation Observatio
[2023-01-01 15:02] VITALS: BP 110/51; PULSE 75; RESP 18; TEMP 37; O2SAT 95
[2023-01-01 16:27] LABS: POC Glucose,Bedside 124 (70-110)
[2023-01-01 20:00] VITALS: BP 135/65; PULSE 73; RESP 16; TEMP 36.8; O2SAT 93
[2023-01-01 20:13] LABS: POC Glucose,Bedside 127 (70-110)
[2023-01-02 04:00] VITALS: BP 127/63; PULSE 70; RESP 17; TEMP 36.9; O2SAT 93; BMI 34.2
--- NOTE | 2023-01-02 05:41 | PC.NURSE ---
Patient has had a good night tonight. Has been able to rest thorugh tonight. Has been up to the bathroom multiple items to void. urine looks clear and yellow. Patinet has not had any N/V/D. Patient did refuse a bath tonight and would like one today if she does not go home. no other issues noted
[2023-01-02 06:38] LABS: POC Glucose,Bedside 106 (70-110)
[2023-01-02 07:51] VITALS: BP 127/63; PULSE 75; RESP 18; TEMP 36.6; O2SAT 95
--- NOTE | 2023-01-02 11:07 | EXP.ACUTE.PN ---
Subjective *Date: 01/02/23 *Time: 11:07 Interval history: She feels well enough for discharge today. She maneuvered with a walker yesterday with the help of physical therapy. Her cough is not significant. Her diarrhea has resolved. Medical Exam Vital signs and Labs for Last 24 Hours: Vital Signs Temp Pulse Resp BP Pulse Ox O2 Del Method 01/02/23 09:00 Room Air 01/02/23 08:00 Room Air 01/02/23 07:51 97.9 F 75 18 127/63 95 Room Air 01/02/23 04:00 98.4 F 70 17 127/63 93 L Room Air 01/02/23 06:51 Room Air 01/02/23 05:00 Room Air 01/02/23 03:00 Room Air 01/02/23 01:00 Room Air 01/01/23 23:00 Room Air 01/01/23 20:00 98.3 F 73 16 135/65 93 L Room Air 01/01/23 21:00 Room Air 01/01/23 20:00 Room Air 01/01/23 18:15 Room Air 01/01/23 17:00 Room Air 01/01/23 15:00 Room Air 01/01/23 13:00 Room Air 01/01/23 15:02 98.6 F 75 18 110/51 L 95 Room Air Intake and Output 01/01/23 01/02/23 01/02/23 19:59 03:59 11:59 Intake Total 480 / 820 100 / 820 240 / 820 Output Total 0 / 600 600 / 600 0 / 600 Balance 480 / 220 -500 / 220 240 / 220 Intake: Intake, Oral Amount 480 / 820 100 / 820 240 / 820 Output: Output, Urine Amount 0 / 600 600 / 600 0 / 600 Other: Number of Unmeasured Voids 1 1 Weight 205 lb 4.8 oz Patient Weight 01/02/23 11:59 Weight 205 lb 4.8 oz Laboratory Results - last 24 hr 01/01/23 11:16: POC Glucose 120 H 01/01/23 16:19: POC Glucose 124 H 01/01/23 20:06: POC Glucose 127 H 01/02/23 06:25: POC Glucose 106 I & O for Labs for Last 24 Hours: Intake & Output 12/30/22 12/31/22 01/01/23 01/02/23 11:59 11:59 11:59 11:59 Intake Total 1250 / 1250 3102 / 3102 820 / 820 Output Total 350 / 350 900 / 900 600 / 600 Balance 900 / 900 2202 / 2202 220 / 220 Weight 209 lb 4 oz 207 lb 6.4 oz 205 lb 4.8 oz Head: Present normocephalic ENT: Present normal exam and mucous membranes moist Neck: Present normal inspection Respiratory: Present rales (A few bibasilar fibrotic rales are heard); Absent respiratory distress Cardiac: Present Reg Rate and Rhythm and S4 GI: Present soft and hyperactive bowel sounds; Absent distention or tenderness Rectal (female): Present deferred (female): Present deferred Extremities: Present edema (Minimal) Skin: Present pallor Neuro: Present alert and oriented x 3 Assessment and Plan *Assessment and plan (1) Nausea vomiting and diarrhea: Status: Acute Category: Medical Code(s): R11.2 - Nausea with vomiting, unspecified; R19.7 - Diarrhea, unspecified (2) KLAUS (acute kidney injury): Status: Acute Category: Medical Code(s): N17.9 - Acute kidney failure, unspecified (3) History of respiratory syncytial virus (RSV) infection: Status: Acute Category: Medical Code(s): Z86.19 - Personal history of other infectious and parasitic diseases (4) Anemia: Status: Acute Category: Medical Code(s): D64.9 - Anemia, unspecified (5) Diabetes mellitus: Status: Chronic Qualifiers: Diabetes mellitus type: type 2 Diabetes mellitus intermediate frame tender insulin use: unspecified intermediate frame tender insulin use status Diabetes mellitus complication status: with other specified complication Qualified Code(s): E11.69 - Type 2 diabetes mellitus with other specified complication Category: Medical Code(s): E11.9 - Type 2 diabetes mellitus without complications Plan Discharge with follow-up in [facility] this week.
--- NOTE | 2023-01-02 11:32 | HMH.PHAINT1 ---
Pharmacy Intervention Comments: DISCHARGE MEDICATION COUNSELING PROVIDED. DISCUSSED STOPPING THE PROTONIX AND STARTING THE FLAGYL (THREE TIMES DAILY, TAKE WITH FOOD, N/V/D POSSIBLE, AVOID ALCOHOL AND ALCOHOL CONTAINING PRODUCTS FOR UP TO 48 HOURS AFTER LAST DOSE TO AVOID DISULFIRAM REACTION). PATIENT VERBALIZED NO QUESTIONS AT THIS TIME.
--- NOTE | 2023-01-04 16:14 | CARE MANAGER ---
Addendum entered by Melody Vega 01/05/23 12:10: Per Steffany oviedo/ [facility] services will start today 01/05/2023. Addendum entered by Janey Atkins RN 01/04/23 16:16: Patient was recommended to have HH PT ordered at discharge. Patient verbally agreed to [facility] and order/clinical will be faxed. Original Note: Called and spoke with patient regarding recent discharge. She stated that she is doing well, has made changes to medication that was ordered at discharge. Patient has scheduled f/u appt with PCP. No concerns voiced at time of call.
[2023-01-05 07:26] LABS: Sapovirus Not Detected (NotDetected)
--- NOTE | 2023-01-07 14:40 | EXP.DC.SUM ---
General Admission date:: 12/31/22 Discharge date: 01/02/23 HPI HPI HPI: This 72-year-old white female contracted RSV a month ago and had rather severe episode of bronchitis. She has not felt well since then. A week ago she was given antibiotics and then subsequently developed nausea, vomiting and diarrhea. She presented to the emergency room on the evening of 12/30 and was admitted due to the abdominal discomfort, diarrhea, and evidence of acute kidney injury. She takes pantoprazole on a regular basis. She is diabetic and takes diabetic medications including metformin. Obviously the metformin and the pantoprazole can contribute to kidney issues. She already takes Karendia and Jardiance. In the emergency room a stool specimen was ordered for PCR panel. This is pending. C. difficile would be in the differential diagnosis. Past history of gastritis noted. This morning she does not feel a whole lot better. She has not had vomiting since she was admitted. She did have some diarrhea this morning. She complains of a headache. Hospital Course Hospital Course Hospital Course: The patient was started on IV fluids and metronidazole was initiated for her diarrhea. She was given Tylenol for headache. Her diarrhea did improve and she began feeling better. She did develop a cough and some congestion. A COVID and flu test was ordered and was negative. Her renal function improved. A PT consult was ordered for increasing her mobility. By 01/02/2023, she felt well enough for discharge. She had maneuvered with a walker with the help of physical therapy. Her diarrhea had completely resolved and she was stable to be discharged and will follow-up in the office in a week. Exam Data for Last 24 hours Vital signs and Labs for Last 24 Hours: Temp Pulse Resp BP Pulse Ox O2 Del Method 97.9 F 75 18 127/63 95 Room Air 01/02/23 07:51 01/02/23 07:51 01/02/23 07:51 01/02/23 07:51 01/02/23 07:51 01/02/23 09:00 Narrative: Constitutional Constitutional: no acute distress (Pale) *Routine HEENT Exam Head: Present normocephalic Eye: Present PERRL; Absent conjunctival icterus or scleral injection ENT: Present mucous membranes moist *Routine Neck Exam Neck: Present full ROM and normal carotid upstroke Routine Chest/Breast/Axilla Exam Chest wall: Absent tenderness Axillae: Absent lymphadenopathy *Routine Respiratory Exam Respiratory: Present CTA bilaterally; Absent respiratory distress *Routine Cardiovascular Exam Cardiovascular: Present RRR; Absent ectopic *Routine Abdominal Exam Abdominal: Present soft, normoactive bowel sounds ( tinkling and hyperactive), distended and obese; Absent rebound, guarding, rigid, organomegaly, mass or hernia *Routine Rectal Exam Rectal:: deferred *Routine Genitalia Exam Genitalia:: deferred *Routine Extremities Exam Extremities: Present edema (Minimal) Routine Back/Spine/Pelvis Exam Back/Spine: Absent CVA tenderness *Routine Skin Exam Skin: Present intact, dry and pallor *Routine Neurological Exam Neurological: Present alert, oriented X3 and normal speech; Absent altered mental status Routine Psychiatric Exam Psychiatric: Present normal affect (Blunted?) and cooperative DS: Diagnosis Discharge Diagnosis (1) Nausea vomiting and diarrhea: Status: Resolved Code(s): R11.2 - Nausea with vomiting, unspecified; R19.7 - Diarrhea, unspecified (2) KLAUS (acute kidney injury): Status: Acute Code(s): N17.9 - Acute kidney failure, unspecified (3) History of respiratory syncytial virus (RSV) infection: Status: Inactive Code(s): Z86.19 - Personal history of other infectious and parasitic diseases (4) Anemia: Status: Acute Code(s): D64.9 - Anemia, unspecified (5) Diabetes mellitus: Status: Chronic Code(s): E11.9 - Type 2 diabetes mellitus without complications Qualifiers: Diabetes mellitus type: type 2 Diabetes mellitus long te
== END 2023-01-02 11:52 | disposition home or self-care (01) ==
LOC: ER 23:44 → 2ND 23:56
PROVIDERS: Physician Assistant; Student in an Organized Health Care Education/Training Program; Admitting Provider Family Medicine; Emergency Provider Emergency Medicine; PCP Family Medicine; Visit Provider Family Medicine
DX: R11.2 Nausea with vomiting, unspecified (principal); R19.7 Diarrhea, unspecified; N17.9 Acute kidney failure, unspecified; D50.9 Iron deficiency anemia, unspecified; E11.69 Type 2 diabetes mellitus with other specified complication; Z86.19 Personal history of other infectious and parasitic diseases; D64.9 Anemia, unspecified; Z79.84 Long term (current) use of oral hypoglycemic drugs; Z79.899 Other long term (current) drug therapy; I48.0 Paroxysmal atrial fibrillation
CPT/HCPCS: 36415; 74176; 80048; 80053; 82962; 83605; 83690; 83735; 84100; 85025; 85651; 87507; 87636; 97162; 99285; G0378; J2405; J3475

== ENCOUNTER → 2023-01-11 13:50 | Outpatient (CLI) | payer MEDICARE, BC, SELFPAY ==
--- NOTE | 2023-01-11 13:57 | US_ITS ---
PROCEDURE: US TRANSVAGINAL CLINICAL INDICATION: PELVIC MASS COMPARISON: CT CT ABDOMEN PELVIS WO CON from 12/30/2022 FINDINGS: Transvaginal sonographic images of the pelvis were obtained. UTERUS: 6.2 cm x 4.7 cm x 2.9 cm with a combined endometrial thickness of 2.8mm. There are several nabothian cysts in the cervix. A small 3.2 mm and echogenic area in the cervix. There is a 5 mm echogenic area in the anterior uterus possibly degenerative changes. LEFT OVARY: 6.2 cmx4.1 cmx2.7cm with a volume of 35.4ml. Solid-appearing mass in the left adnexa. A separate ovary cannot be identified. Appears to be in the cul-de-sac behind the cervix. Flow noted in this mass. RIGHT OVARY: 1.8 cmx 1.3 cm, appears atrophic. There is no fluid in the cul-de-sac. IMPRESSION: 1. Anteverted uterus normal in shape and size. The endometrium is thin. 2. There are hyperechoic areas within the uterus and cervix that are likely degenerative changes. 3. No fluid in the cul-de-sac. 4. Right ovary is seen and appears normal and atrophic. 5. There is a 6 centimeter solid-appearing mass in the left pelvis adjacent to the cervix in the cul-de-sac. It has the appearance of a fibroid and could be pedunculated. There is flow within the mass. Suggest a gynecology consult . 6. I spoke to Dr. Gunn. Dictated by: Raphael Mcknight MD 01/12/2023 14:11 Raphael Mcknight MD in [facility] 01/12/2023 14:11
== END ==
PROVIDERS: PCP Family Medicine; Visit Provider Family Medicine
DX: R19.00 Intra-abdominal and pelvic swelling, mass and lump, unspecified site (principal)
CPT/HCPCS: 76830

== ENCOUNTER 2023-03-05 10:27 | Day surgery (SDC) | payer MEDICARE, BC, SELFPAY ==
--- NOTE | 2023-03-05 10:47 | HMH.SCOPE ---
Procedure: Date: 03/05/23 Patient Date of :: 1950 Procedure Performed:: Total colonoscopy Indications:: Patient is a 72-year-old female from [place] with history of hyperlipidemia, hypertension, diabetes, supraventricular tachycardia, basilar artery aneurysm status post clipping. I had previously seen her and performed villarreal endoscopy for evaluation of anemia. She ultimately did have capsule endoscopy performed which revealed telangiectasias. She had a EGD/colonoscopy in 2015 which revealed poor preparation and 5-year colonoscopy was recommended. She had once again both EGD and colonoscopy on 12/19/2021 after referral for iron deficiency anemia. No polyps were noted, however, at that time, in December 2021, she had poor preparation and repeat colonoscopy was recommended with alternate prep. Patient stated at that time that she had vomited up her prep shortly after taking it. She tolerated prep for this colonoscopy. Performing Provider:: Serge Zaragoza MD Referring Provider:: Chase Gunn MD Sedation:: MAC sedation Procedure:: Patient history was obtained and appropriate physical examination was performed. Patient's medications and allergies were reviewed. Informed consent was obtained after explaining the benefits, alternatives, and risks of the procedure including, but not limited to, bleeding, perforation, missed lesions, and adverse reaction to anesthesia medications. Patient was transported to endoscopy procedure room. Patient was connected to monitoring devices. Throughout the procedure the patient's blood pressure, pulse, and oxygen saturations were monitored continuously. Patient identification and planned procedure were verified by the staff. Patient was positioned in lateral decubitus position. Digital anorectal exam was performed. Variable stiffness Olympus colonoscope was inserted and advanced under direct visualization to the cecum. Adequacy of the colonic preparation was noted. The colonoscope was then slowly withdrawn while carefully examining the color, texture, anatomy, and integrity of the mucosoa circumferentially. Within the rectum retroflexion was performed. Colonoscope was then withdrawn. . There was some particulate liquid stool throughout the colon and some tortuosity to the colon. Adequate visualization was achieved with trans colonoscopic irrigation and suctioning. There were no polyps noted. . Findings:: No polyps noted, unremarkable colonoscopy Recommendations:: Repeat colonoscopy up to 10 years Complications:: None immediately apparent Estimated blood obtained (mL): 0 Colonoscopy Component Colonoscopy Component Was a colonoscopy performed during today's procedure?: Yes Recommended follow up colonoscopy of at least 10 years?: Yes
[2023-03-05 10:50] VITALS: BP 162/86; PULSE 91; RESP 18; TEMP 36.8; O2SAT 94; BMI 33.3
[2023-03-05 11:03] VITALS: O2SAT 98
[2023-03-05 11:28] VITALS: BP 104/45; PULSE 66; RESP 18; TEMP 36.2; O2SAT 93
[2023-03-05 11:38] VITALS: BP 98/62; PULSE 63; RESP 18; O2SAT 97
[2023-03-05 11:48] VITALS: BP 109/52; PULSE 71; RESP 18; O2SAT 97
[2023-03-05 11:56] VITALS: BP 117/52; PULSE 71; RESP 18; O2SAT 97
[2023-03-06 07:48] LABS: POC Glucose,Bedside 129 (70-110)
== END 2023-03-05 12:03 | disposition home or self-care (01) ==
PROVIDERS: PCP Family Medicine; Visit Provider Surgery
PROC: 0DJD8ZZ Inspection of Lower Intestinal Tract, Via Natural or Artificial Opening Endoscopic (ICD-10-PCS; CPT G0105; principal; 2023-03-05 11:30)
DX: Z12.11 Encounter for screening for malignant neoplasm of colon (principal); E11.9 Type 2 diabetes mellitus without complications
CPT/HCPCS: G0105; 82962

== ENCOUNTER 2023-04-08 09:25 | Emergency (ER) | payer MEDICARE, BC, SELFPAY ==
[2023-04-08] VITALS (8 sets, daily range): BP systolic 136–156; BP diastolic 58–132; PULSE 55–78; RESP 16–20; TEMP 36.7–36.8; O2SAT 95–97; BMI 33.3
--- NOTE | 2023-04-08 09:28 | PC.NURSE ---
DR ALBERT AT BEDSIDE
--- NOTE | 2023-04-08 09:29 | PC.NURSE ---
PT PLACED IN C-COLLAR
--- NOTE | 2023-04-08 09:30 | CT_ITS ---
FINAL REPORT TECHNIQUE: Axial imaging of the chest is obtained after the administration of contrast. 3-D MIP reformatted images were also obtained and reviewed per PE protocol. CLINICAL HISTORY: fall/L inferior thoracic cage pain FINDINGS: The pulmonary arteries are well filled. There is no evidence of pulmonary embolus. There is no aortic dissection or intimal flap. There is no mediastinal, hilar, or axillary lymphadenopathy. The lungs are clear. The heart is enlarged. There is no pleural or pericardial effusion. Limited evaluation of the upper abdomen is without acute abnormality. No acute osseous abnormality. IMPRESSION: No evidence of pulmonary embolism or aortic dissection. Heart is enlarged. Reviewed, Interpreted and Dictated by Montse Guillaume MD Transcribed by Sheryl Byrne Authenticated and [facility]
--- NOTE | 2023-04-08 09:30 | CT_ITS ---
FINAL REPORT TECHNIQUE: Pre-and postcontrast images of the abdomen were performed by computed tomography. Extensive 3-D reconstruction images were performed. A CTA was performed. This study was performed with techniques to keep radiation doses as low as reasonably achievable (ALARA). Individualized dose reduction techniques using automated exposure control or adjustment of mA and/or kV according to the patient''s size were employed. CLINICAL HISTORY: fall, LUQ pain COMPARISON: 12/30/2022 FINDINGS: ABDOMEN/PELVIS: The lung bases are clear. No acute injury is seen to the solid organs. There is fatty infiltration of the liver. Right renal cyst is identified. There is no evidence of small-bowel obstruction. The appendix is not visualized but there are no secondary findings to suggest appendicitis. There is a moderate amount of stool throughout the colon. There is a stable mass in the left pelvis posterior to the uterus measuring 5.4 cm, may be ovarian in origin. The uterus is otherwise unremarkable. There is no evidence of lymphadenopathy or free fluid. There are scattered small sclerotic lesions in the pelvis which are stable. No acute osseous abnormality is identified. CTA: The abdominal aorta is proper caliber. The branch vessels are patent. IMPRESSION: No aneurysm or aortic dissection. No solid organ or GI tract injury. Stable mass posterior to the ovary, may be ovarian in nature. Reviewed, Interpreted and Dictated by Montse Guillaume MD Transcribed by Sheryl Byrne Authenticated and [facility]
--- NOTE | 2023-04-08 09:30 | CT_ITS ---
FINAL REPORT TECHNIQUE: Thin section axial images were obtained through the cervical spine without contrast. Multiplanar reconstruction images were obtained from the axial data. Exam was performed using dose reduction techniques. CLINICAL HISTORY: fall COMPARISON: Cervical plain films 08/04/2021 FINDINGS: There is no acute fracture of the cervical spine. There is no evidence of unilateral or bilateral facet lock. There is minimal anterolisthesis of C4 on C5 favored to be degenerative. There is multilevel degenerative disc disease which appears similar to the plain film from 2021. No acute paraspinal abnormality is identified. IMPRESSION: Degenerative changes without acute osseous abnormality of the cervical spine. Reviewed, Interpreted and Dictated by Montse Guillaume MD Transcribed by Paige Campa Authenticated and [facility]
--- NOTE | 2023-04-08 09:30 | CT_ITS ---
FINAL REPORT TECHNIQUE: Thin section axial images were obtained from skull base to vertex without contrast. Coronal reconstruction images were obtained from the axial data. Exam was performed using dose reduction technique. CLINICAL HISTORY: fall L head/face COMPARISON: 04/04/2020 FINDINGS: There is no mass effect or midline shift. There is no hydrocephalus. There is no intracranial hemorrhage. There are old bilateral lacunar infarcts in the basal ganglia. There is streak artifact in the basilar cistern presumed related to prior aneurysm repair. Soft tissues otherwise without acute abnormality. No acute osseous abnormality is identified. IMPRESSION: No acute intracranial abnormality. Reviewed, Interpreted and Dictated by Montse Guillaume MD Transcribed by Paige Campa Authenticated and [facility]
--- NOTE | 2023-04-08 09:30 | CT_ITS ---
FINAL REPORT TECHNIQUE: Thin section axial images were obtained through the face without contrast. Coronal reconstruction images are obtained from the axial data. CLINICAL HISTORY: fall COMPARISON: None FINDINGS: There is a fracture of the left nasal bone which is nondisplaced. There is no other facial bone fracture identified. The paranasal sinuses are clear. The mastoid ulcers are clear. The orbital rims are intact. Remaining soft tissues are within normal limits. IMPRESSION: Left nasal bone fracture. Reviewed, Interpreted and Dictated by Montse Guillaume MD Transcribed by Paige Campa Authenticated and [facility]
[2023-04-08] MEDS: FLUORESCEIN SODIUM 1MG STRIP 1 MG OP (09:38)
[2023-04-08] MEDS: TETRACAINE 0.5% OPTH SOL 15ML OP (09:38)
--- NOTE | 2023-04-08 09:41 | ED_ITS ---
Discharge Plan Disposition Patient Disposition: Home, Self-Care Chief Complaint: Fall Prescriptions Prescriptions: No Action pioglitazone [Actos] 30 mg tablet 30 mg PO DAILY melatonin 10 mg capsule 10 mg PO HS PRN (Reason: Sleep) Januvia 100 mg tablet 100 mg PO DAILY clonazepam [Klonopin] 1 mg tablet 1 mg PO BID calcium carbonate [Calcium 600] 600 mg calcium (1,500 mg) tablet 600 mg PO DAILY Synjardy XR 12.5-1,000 mg tablet, IR - ER, biphasic 24hr 1 tab PO DAILY amitriptyline 25 mg tablet 25 mg PO HS 90 Days Qty: 90 1RF Kerendia 20 mg tablet 20 mg PO DAILY rosuvastatin [Crestor] 20 mg tablet 10 mg PO DAILY candesartan-hydrochlorothiazid 32-25 mg tablet See Rx Instructions .ROUTE .COMPLEX Qty: 90 4RF Dose Instruction: TAKE 1 TABLET BY MOUTH DAILY Rx Instructions: TAKE 1 TABLET BY MOUTH DAILY carvedilol 12.5 mg tablet 12.5 mg PO BID Qty: 90 3RF multivitamin 1 EACH tablet 1 each PO DAILY guanfacine 1 mg tablet 1 mg PO HS amlodipine 5 mg tablet 5 mg PO DAILY aspirin 81 mg Tablet,Delayed Release (Dr/Ec) 81 mg PO DAILY ferrous sulfate 325 mg (65 mg iron) Tablet,Delayed Release (Dr/Ec) 325 mg PO DAILY Activity Restrictions/Add. Instructions Additional Instructions/Restrictions: At this time it was felt you are safe to be discharged home. If new or worsening symptoms please do not hesitate to return the emergency department. If symptoms persist please follow-up with your family doctor as you are able. Clinical Impressions Clinical Impression: Blunt head trauma, Closed fracture nasal bone, Subconjunctival hemorrhage Discharge ED Provider: Zuhair Wick General Adult HPI General Chief complaint: Fall Stated complaint: fall Time Seen by Provider: 04/08/23 09:25 Mode of Arrival: EMS Source of Information: Patient Limitations: No Limitations Description of Symptoms (Recalled from ER Triage Doc. by RN): Patient states approx 50 minutes ago she was leaving her house when she may have tripped on a curb and fell on her left side. Denies LOC. Complaint of left sided face and rib pain. History of Present Illness HPI narrative: Patient is a 72-year-old female with past medical history of [id number] diabetes who presents emergency department for evaluation of traumatic injury sustained in a fall. Onset happened less than 1 hour prior to arrival, patient tripped over a curb striking her left head, face, thoracic cage causing her to present here for continued evaluation. No loss of consciousness. No reported anticoagulation. No other acute complaints at this time. Related Data Home Medications Medication Instructions Recorded Confirmed calcium carbonate 600 mg calcium 600 mg PO DAILY Supplement 09/12/18 03/05/23 (1,500 mg) tablet (Calcium) clonazepam 1 mg tablet (Klonopin) 1 mg PO BID Anxiety 09/12/18 03/05/23 melatonin 10 mg capsule 10 mg PO HS PRN Sleep 04/01/20 03/05/23 pioglitazone 30 mg tablet (Actos) 30 mg PO DAILY Diabetes 04/01/20 03/05/23 multivitamin 1 each PO DAILY Supplement 04/09/20 03/05/23 empagliflozin 12.5 mg-metformin ER 1 tab PO DAILY Diabetes 06/23/21 03/05/23 1,000 mg tablet,extended rel 24 hr (Synjardy XR) sitagliptin phosphate 100 mg 100 mg PO DAILY Diabetes 10/30/21 03/05/23 tablet (Januvia) finerenone 20 mg tablet (Kerendia) 20 mg PO DAILY KIDNEYS 09/14/22 03/05/23 rosuvastatin 20 mg tablet (Crestor) 10 mg PO DAILY Cholesterol 09/14/22 03/05/23 amlodipine 5 mg tablet 5 mg PO DAILY Hypertension 12/31/22 03/05/23 aspirin 81 mg tablet,delayed 81 mg PO DAILY CIRCULATION 12/31/22 03/05/23 release ferrous sulfate 325 mg (65 mg 325 mg PO DAILY Supplement 12/31/22 03/05/23 iron) tablet,delayed release guanfacine 1 mg tablet 1 mg PO HS Hypertension 12/31/22 03/05/23 Previous Rx's Medication Instructions Recorded amitriptyline 25 mg tablet 25 mg PO HS headache, insomnia 90 06/23/21 days #90 tabs candesartan 32 See Rx Instructions .Route 03/04/23 mg-hydrochlorothiazide 25 mg tablet .COMPLEX #90 tabs carvedilol 12.5 mg tablet 12.5 mg PO BID Hypertension #90 04/02/23 tabs Allergies Allergy/AdvReac Type Severity Reaction Status Date / Time No Known Drug Allergies Allergy Unknown Verified 03/05/23 10:46 [facility] Disclaimer: The information contained in this section may have been updated after the patient was seen, as this information can be updated by other users. Medical History (Updated 04/08/23 @ 12:20 by Zuhair Wick MD) Abnormal EKG Abnormal electrocardiogram [ECG] [EKG] Accelerated junctional rhythm Cough syncope Depression Diabetes mellitus Dyspnea Family history of heart disease History of cyst of breast History of respiratory syncytial virus (RSV) infection History of trigger finger HLD (hyperlipidemia) HTN (hypertension) Hx of mitral valve prolapse Paroxysmal A-fib Respiratory syncytial virus (RSV) Sciatica SVT (supraventricular tachycardia) Word finding difficulty Surgical History History of biopsy of temporal artery History of carpal tunnel release History of cholecystectomy History of colonoscopy History of esophagogastroduodenoscopy (EGD) History of hernia repair History of surgery Family History Other Family history of cardiac disorder Social History Smoking Status: Never smoker alcohol intake: never substance use type: denies use current occupational status: retired Travel in the last 8 weeks: None household members: spouse and children housing: house caffeine: Yes ROS Obtained: Yes Systems reviewed as appropriate & no additional complaints except as documented Physical Exam General General appearance: alert and in no apparent distress Head Head exam: normocephalic Eye Eye exam: Present PERRL, EOMI and other (Left lateral subconjunctival hemorrhage, no exophthalmos bilaterally) ENT ENT exam: Present mucous membranes moist Neck Neck exam: Present normal inspection; Absent tenderness Chest Chest inspection: Present normal inspection, symmetric chest wall rise and other (Left inferior thoracic cage tenderness) Respiratory Respiratory exam: Present normal lung sounds bilaterally; Absent respiratory distress Cardiovascular Cardiovascular exam: Present regular rate and normal rhythm Abdominal Exam Abdominal exam: Present soft and tenderness (Left upper quadrant tenderness); Absent rebound Extremities Exam Extremities exam: Present normal inspection; Absent tenderness (No tenderness over the bilateral upper or lower extremities, there is an abrasion over the left lateral pinky with preserved range of motion and preserve distal capillary refill) Neurological Exam Neurological exam: Present alert and CN II-XII intact; Absent motor sensory deficit Psychiatric Psychiatric exam: Present normal affect Skin Skin exam: Present warm and dry Medical Decision Making Bhavik Inquiry Pt receiving controlled substance: No Vital Signs: 04/08/23 09:25 04/08/23 09:32 04/08/23 10:13 Temperature 98.2 F Temperature Source Oral Pulse Rate 64 66 Pulse Rate [Radial] 78 Respiratory Rate 16 20 Blood Pressure 156/132 H 156/58 H Blood Pressure [Right Arm] 136/97 H Blood Pressure Mean 139 Blood Pressure Mean [Right Arm] 110 Blood Pressure Source [Right Arm] Automatic Cuff Blood Pressure Position [Right Arm] Sitting 02 Sat by Pulse Oximetry 96 96 97 Oxygen Delivery Method Room Air 04/08/23 10:30 04/08/23 11:01 04/08/23 11:31 Temperature Temperature Source Pulse Rate 61 60 59 L Pulse Rate [Radial] Respiratory Rate Blood Pressure 150/63 H 152/59 H 148/64 H Blood Pressure [Right Arm] Blood Pressure Mean 87 Blood Pressure Mean [Right Arm] Blood Pressure Source [Right Arm] Blood Pressure Position [Right Arm] 02 Sat by Pulse Oximetry 96 96 95 Oxygen Delivery Method 04/08/23 12:01 Temperature Temperature Source Pulse Rate 55 L Pulse Rate [Radial] Respiratory Rate 20 Blood Pressure 150/62 H Blood Pressure [Right Arm] Blood Pressure Mean 91 Blood Pressure Mean [Right Arm] Blood Pressure Source [Right Arm] Blood Pressure Position [Right Arm] 02 Sat by Pulse Oximetry 96 Oxygen Delivery Method Lab Data Lab Results 04/08/23 09:35: WBC 5.3, RBC 3.88 L, Hgb 13.4, Hct 42.0, MCV 108.3 H, MCH 34.7 H , MCHC 32.0, RDW 14.0, Plt Count 291, MPV 8.3, Neut % (Auto) 58.0, Lymph % (Auto) 25.9, Crawford % (Auto) 9.9 H, Eos % (Auto) 5.1, Baso % (Auto) 1.1, Neut # (Auto) 3.1, Lymph # (Auto) 1.4, Crawford # (Auto) 0.5, Eos # (Auto) 0.3, Baso # (Auto) 0.1, Sodium 140, Potassium 4.5, Chloride 102, Carbon Dioxide 32 H, Anion Gap 10.5, BUN 32 H, Creatinine 1.30 H, Estimated Creat Clear 56, Estimated GFR 40 L, Est GFR ( Amer) 49 L, Glucose 132 H, Calcium 9.4, Total Bilirubin 0.3, AST 32, ALT 26, Alkaline Phosphatase 74, Total Protein 6.9 D, Albumin 4.1, Globulin 2.8, Albumin/Globulin Ratio 1.5 04/08/23 09:35 04/08/23 09:35 Orders (Tests/Meds): ED MEDICATIONS Generic Name Dose Route Start Last Admin Trade Name Freq PRN Reason Stop Dose Admin Sodium Chloride 10 ml 04/08/23 09:39 Sodium Chloride 0.9% 10ml Flush Syringe IV 05/08/23 09:38 NEEDED PRN Maintain IV Site Sodium Chloride 10 ml 04/08/23 10:03 Sodium Chloride 0.9% 10ml Syr (Rad Only) IV 05/08/23 10:02 NEEDED PRN Maintain IV Site Discontinued Medications Generic Name Dose Route Start Last Admin Trade Name Freq PRN Reason Stop Dose Admin Fluorescein Sodium 1 mg 04/08/23 10:11 04/08/23 09:38 Fluorescein Sodium 1mg Strip OP 04/08/23 10:12 1 mg ONCE ONE Administration Iopamidol 100 ml 04/08/23 10:03 04/08/23 10:04 Iopamidol-370 (76%);100ml Bottle IV 04/08/23 10:04 100 ml ONCE ONE Administration Sodium Chloride 50 ml 04/08/23 10:03 04/08/23 10:04 0.9 % Sodium Chloride 50 Ml Vial IV 04/08/23 10:04 50 ml ONCE ONE Administration Tetanus/Reduced Diphtheria/Acell Pertussis 0.5 ml 04/08/23 10:11 04/08/23 10:34 Tet/Diphth/Pert-Adult 0.5ml Syringe IM 04/08/23 10:12 0.5 ml .ONCE ONE Administration Tetracaine HCl 0 ml 04/08/23 10:11 04/08/23 09:38 Tetracaine 0.5% Opth Yoon 15ml OP 04/08/23 10:12 1 ml ONCE ONE Administration ORDERS Category Date Time Status CT angio abdomen pelvis Stat Cat Scan 04/08/23 09:[address] angio chest - dissection Stat Cat Scan 04/08/23 09:[address] cervical spine wo con Stat Cat Scan 04/08/23 09:[address] facial bones wo con Stat Cat Scan 04/08/23 09:[address] head/brain wo con Stat Cat Scan 04/08/23 09:30 Completed CBC w/Auto Diff [Complete Blood Count Auto Diff] Stat Lab 04/08/23 09:35 Completed CMP [Comprehensive Metabolic Panel] Stat Lab 04/08/23 09:35 Completed Medical Decision Narrative: In summary patient is a 72-year-old female with past medical history described above presents emergency department for evaluation of traumatic injury sustained in a fall. Patient is hemodynamically stable nontoxic-appearing upon arrival, afebrile. C-spine precautions initiated upon arrival. Differential includes intracranial hemorrhage, fracture, among others. Patient has no exophthalmos to suggest retroorbital hematoma, she wears glasses at baseline and has symmetric subjective decreased vision consistent with when she takes her glasses off, no acute changes. No fluorescein uptake to suggest scleral laceration. Workup will be conducted with hematologic labs, CT of the head, face, cervical spine, CTA chest, abdomen, pelvis. Imaging reviewed by me, trauma survey only remarkable for isolated left nasal bone fracture for which no further workup or intervention is necessary. Patient does not have any nasal septal hematoma. Patient has an incidental stable mass in her pelvis which she is already aware. Patient C-spine was cleared, patient was ambulated at bedside and is appropriate for discharge. Procedure: Procedure performed by Zuhair Wick. Procedure performed with fluorescein staining for ocular examination. Left eye was numbed using topical tetracaine with good effect. Fluorescein was added to the left eye, no fluorescein uptake on Lux lamp exam. Patient does have conjunctival hemorrhage, given no fluorescein uptake this is consistent with subconjunctival hemorrhage. Critical Care Critical Care Time Critical Care Time: No
--- NOTE | 2023-04-08 09:42 | HMH.ITSTN ---
GFR completion/results were overrode for the use of contrast media by the Physician on a risk vs. benefit situation with this patient.
[2023-04-08 09:45] LABS: Basophils # 0.1 K/mm3 (0-0.2); Basophils % 1.1 % (0.1-2.0); Eosinophils # 0.3 K/mm3 (0.0-0.4); Eosinophils % 5.1 % (0.1-12.0); Hemoglobin 13.4 g/dL (12.2-16.2); Lymphocytes # 1.4 K/mm3 (0.7-4.5); Lymphocytes % 25.9 % (10-50); Mean Corpuscular Hemoglobin 34.7 pg (27.0-31.2); Mean Corpuscular Volume 108.3 fl (81-99); Mean Platelet Volume 8.3 fl (7.4-10.4); Monocytes # 0.5 K/mm3 (0.1-1.0); Monocytes % 9.9 % (1.7-9.3); Neutrophils # 3.1 K/mm3 (1.8-7.8); Platelet Count 291 K/mm3 (142-424); Red Blood Count 3.88 M/mm3 (4.20-5.40); White Blood Count 5.3 K/mm3 (4.8-10.8)
--- NOTE | 2023-04-08 09:45 | PC.NURSE ---
PT TO CT
--- NOTE | 2023-04-08 09:47 | PC.NURSE ---
UPDATED AT THIS TIME
[2023-04-08 09:56] LABS: Alanine Aminotransferase 26 U/L (12-78); Albumin Level 4.1 g/dl (3.5-5.0); Albumin/Globulin Ratio 1.5 (1.1-1.8); Alkaline Phosphatase 74 U/L (38-126); Anion Gap 10.5 mEq/L (5-15); Aspartate Amino Transferase 32 U/L (14-36); Bilirubin,Total 0.3 mg/dl (0.2-1.3); Blood Urea Nitrogen 32 mg/dl (7-17); Calcium 9.4 mg/dl (8.4-10.2); Carbon Dioxide 32 mmol/L (22.0-30.0); Chloride 102 mmol/L (98-107); Creatinine Clearance Estimated 56 mL/min (50-200); Estimated Glomerular Filt Rate 40 ml/min (>60); GFR (African American) 49 ML/MIN (>60); Globulin 2.8 g/dL (1.3-3.2); Glucose 132 mg/dl (74-100); Potassium 4.5 mmoL/L (3.5-5.1); Sodium 140 mmol/L (136-145); Total Protein,Serum 6.9 g/dl (6.3-8.2)
[2023-04-08] MEDS: IOPAMIDOL-370 (76%);100ML BOTTLE 100 ML IV (10:04)
[2023-04-08] MEDS: 0.9 % SODIUM CHLORIDE 50 ML VIAL IV (10:04)
--- NOTE | 2023-04-08 10:09 | PC.NURSE ---
PT RETURNED FROM CT
--- NOTE | 2023-04-08 10:11 | PC.NURSE ---
pt asked for bandaid for side of left hand
[2023-04-08] MEDS: TET/DIPHTH/PERT-ADULT 0.5ML SYRINGE 0.5 ML IM (10:34)
--- NOTE | 2023-04-08 10:35 | PC.NURSE ---
ADDITIONAL WARM BLANKET PROVIDED, NO NEEDS AT THIS TIME
--- NOTE | 2023-04-08 11:19 | PC.NURSE ---
PT REPOSITIONED AND UPDATED ON POC. CALL LIGHT WITHIN REACH
--- NOTE | 2023-04-08 12:15 | PC.NURSE ---
DR ALBERT AT BEDSIDE TO UPDATE PT AND FAMILY
--- NOTE | 2023-04-08 12:23 | PC.NURSE ---
PT AMBULATED IN [facility]
[2023-04-08] MEDS: ONDANSETRON 4MG/2ML VIAL 4 MG IV (12:28)
--- NOTE | 2023-04-08 12:31 | PC.NURSE ---
PT PROVIDED CHIPS AND DRINK
== END 2023-04-08 12:40 | disposition home or self-care (01) ==
PROVIDERS: Emergency Provider Emergency Medicine; PCP Family Medicine
DX: S02.2XXA Fracture of nasal bones, initial encounter for closed fracture (principal); R07.81 Pleurodynia; S09.8XXA Other specified injuries of head, initial encounter; H11.32 Conjunctival hemorrhage, left eye; E11.9 Type 2 diabetes mellitus without complications; E78.5 Hyperlipidemia, unspecified; I10 Essential (primary) hypertension; I48.0 Paroxysmal atrial fibrillation; I47.10 Supraventricular tachycardia, unspecified; W10.1XXA Fall (on)(from) sidewalk curb, initial encounter
CPT/HCPCS: 70450; 70486; 71275; 72125; 74174; 80053; 85025; 90471; 90715; 99285; J2405; Q9967

== ENCOUNTER 2023-04-15 14:41 | Outpatient (CLI) | payer MEDICARE, BC, SELFPAY ==
--- NOTE | 2023-04-15 14:45 | US_ITS ---
FINAL REPORT CLINICAL HISTORY: THYROMEGALY COMPARISON: None FINDINGS: THYROID ULTRASOUND: The right lobe of the thyroid gland measures 3.7 x 1.6 x 1.8 cm in size. The thyroid gland is diffusely heterogeneous. There is a 6 x 6 x 4 mm exophytic cystic nodule, a TI-RADS category 1 nodule. No other focal mass or nodule is seen. The left lobe of the thyroid measures 3.8 x 1.1 x 1.1 cm in size. The left lobe is also diffusely heterogeneous. No focal masses or nodules are identified. The isthmus of the thyroid gland measures 6.3 mm in thickness. IMPRESSION: Diffusely heterogeneous thyroid gland with a single focal nodule in the right lobe, a TI-RADS category 1 nodule which does not require follow-up. Reviewed, Interpreted and Dictated by Serge Hung III, MD Transcribed by Maricarmen Anthony Authenticated and [facility]
== END 2023-04-15 23:59 ==
LOC: RAD 14:42
PROVIDERS: PCP Family Medicine; Visit Provider Family Medicine
DX: E01.0 Iodine-deficiency related diffuse (endemic) goiter (principal)
CPT/HCPCS: 76536

== ENCOUNTER 2023-06-20 23:08 | Observation (INO) | payer MEDICARE, BC, SELFPAY ==
[2023-06-20 23:12] VITALS: BP 110/51; PULSE 57; O2SAT 95
[2023-06-20 23:17] VITALS: BP 110/51; PULSE 58; RESP 16; TEMP 36.8; O2SAT 96; BMI 33.6
[2023-06-20 23:31] VITALS: BP 96/47; PULSE 56; O2SAT 93
[2023-06-21] VITALS (12 sets, daily range): BP systolic 88–133; BP diastolic 44–57; PULSE 46–90; RESP 16–19; TEMP 36.6–37.2; O2SAT 91–96; BMI 35.5
--- NOTE | 2023-06-21 00:45 | CT_ITS ---
PROCEDURE INFORMATION: Exam: CT Cervical Spine Without Contrast Exam date and time: 06/21/2023 1:31 AM Age: 72 years old Clinical indication: Injury or trauma; Fall; Blunt trauma TECHNIQUE: Imaging protocol: Computed tomography of the cervical spine without contrast. Radiation optimization: All CT scans at this facility use at least one of these dose optimization techniques: automated exposure control; mA and/or kV adjustment per patient size (includes targeted exams where dose is matched to clinical indication); or iterative reconstruction. COMPARISON: CT CERVICAL SPINE WO CON 04/08/2023 9:52 AM FINDINGS: Bones: Straightening of the expected cervical lordosis. No acute fracture. Multilevel degenerative changes manifested as endplate osteophyte formation, facet arthropathy, uncovertebral hypertrophy and intervertebral disc height loss. Additionally, there is partial fusion posterior elements of C4 and C5 as well as C5 and C6. No severe spinal canal narrowing. No severe neural foraminal narrowing. Lungs: Lung apices are normal. Thyroid: The thyroid gland is normal. Soft tissues: Unremarkable. IMPRESSION: 1. No acute osseous abnormality of the cervical spine. 2. Other findings as above.
--- NOTE | 2023-06-21 00:45 | CT_ITS ---
PROCEDURE INFORMATION: Exam: CT Lumbar Spine Without Contrast Exam date and time: 06/21/2023 1:33 AM Age: 72 years old Clinical indication: Injury or trauma; Fall; Blunt trauma (contusions or hematomas); Additional info: Fall ttp TECHNIQUE: Imaging protocol: Computed tomography of the lumbar spine without contrast. Radiation optimization: All CT scans at this facility use at least one of these dose optimization techniques: automated exposure control; mA and/or kV adjustment per patient size (includes targeted exams where dose is matched to clinical indication); or iterative reconstruction. COMPARISON: CT ANGIO ABDOMEN PELVIS 04/08/2023 9:58 AM FINDINGS: Bones/joints: The alignment of the lumbar spine is normal. There is severe degenerative disc disease from L2 through L4. There is severe facet arthropathy at L5-S1 left greater than right with moderate facet arthropathy from L2-L3 through L4-L5. There is subtle loss of height involving the superior endplate of L1 which is new since the study of 04/08/2023 consistent with a acute/subacute compression deformity. Diaphragm: A small hiatal hernia is present. Kidneys and ureters: 2.5 cm right renal cyst is noted. Soft tissues: Soft tissue lesion posterior to the uterus is again noted incompletely included on this study. IMPRESSION: 1. Acute/subacute mild superior endplate compression deformity of L1. 2. Diffuse significant degenerative changes of the lumbar spine. 3. Other stable nonemergent findings as detailed. COMMENTS: Consistent with the [employer] [employer]'s Incidental Findings Committee white paper (J Am Tami Radiol 2018): Any incidental renal lesion less than 1 cm or classified as too small to characterize, or any incidental cystic renal lesion characterized as simple-appearing, is likely benign. No follow-up imaging is recommended for these lesions per consensus recommendations based on imaging criteria.
--- NOTE | 2023-06-21 00:45 | CT_ITS ---
PROCEDURE INFORMATION: Exam: CT Head Without Contrast Exam date and time: 06/21/2023 1:28 AM Age: 72 years old Clinical indication: Injury or trauma; Fall; Blunt trauma (contusions or hematomas); Additional info: Fall, on asa TECHNIQUE: Imaging protocol: Computed tomography of the head without contrast. Radiation optimization: All CT scans at this facility use at least one of these dose optimization techniques: automated exposure control; mA and/or kV adjustment per patient size (includes targeted exams where dose is matched to clinical indication); or iterative reconstruction. COMPARISON: CT CERVICAL SPINE WO CON 04/08/2023 9:52 AM FINDINGS: Tubes, catheters and devices: Embolization coil adjacent to the base of the basilar artery. Brain: There is diffuse enlargement CSF containing spaces consistent with global parenchymal volume loss. No acute intracranial hemorrhage. No evidence of large acute territorial infarct or significant cerebral edema. No midline shift or significant mass effect. 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 Cerebral ventricles: No hydrocephalus. Paranasal sinuses: The paranasal sinuses are clear. Mastoid air cells: The mastoid air cells are clear. Orbital cavities: The orbits are unremarkable. Bones: No acute fracture. Soft tissues: The superficial soft tissues are normal. IMPRESSION: 1. No acute intracranial hemorrhage or large territorial infarct recommend correlation with history/physical exam and if clinical concern persists consider further evaluation with MRI. 2. Other findings as above.
--- NOTE | 2023-06-21 00:45 | XR_ITS ---
PROCEDURE INFORMATION: Exam: XR Chest Exam date and time: 06/21/2023 1:15 AM Age: 72 years old Clinical indication: Injury or trauma; Fall; Blunt trauma (contusions or hematomas); Additional info: Near syncope TECHNIQUE: Imaging protocol: Radiologic exam of the chest. Views: 1 view. COMPARISON: CT ANGIO CHEST 04/08/2023 9:58 AM FINDINGS: Lungs: Unremarkable. No consolidation. Pleural spaces: Unremarkable. No pleural effusion. No pneumothorax. Heart/Mediastinum: Unremarkable. No cardiomegaly. Vasculature: Unremarkable. Bones/joints: Unremarkable. IMPRESSION: No acute findings.
--- NOTE | 2023-06-21 00:45 | ECG_ITS ---
APPROVED REPORT Exam: Resting ECG HR:52 bpm ECG Measurements Heart Rate 52 AXES TN 201 P 83 QRSd 81 QRS 79 QT 444 T 77 QTc 423 Conclusion SINUS BRADYCARDIA LOW QRS VOLTAGE IN PRECORDIAL LEADS [QRS DEFLECTION < 1.0 mV IN CHEST LEADS] MINIMAL ST DEPRESSION [0.025+ mV ST DEPRESSION] BORDERLINE ECG Electronically signed by : TIKA REILLY, 06/21/2023 07:14:07
--- NOTE | 2023-06-21 00:47 | ED_ITS ---
Discharge Plan Disposition Patient Disposition: Admitted Clinical Impressions Clinical Impression: Kidney dysfunction, Fall, Closed compression fracture of lumbar vertebra, Bradycardia Discharge ED Provider: Matthew [facility] HPI General Chief complaint: Back Pain/Injury Stated complaint: Back pain Time Seen by Provider: 06/21/23 00:34 Mode of Arrival: EMS Source of Information: Patient Limitations: No Limitations Description of Symptoms (Recalled from ER Triage Doc. by RN): Pt arrives via [facility] from home with complaint of lower back pain after a fall in her bathroom around 2200. Pt describes fall as a loss of balance and landing on her buttocks. Pt lives a jimbo with , no LOC, does take daily aspirin and has a stimulator for her incontinence in right side. Pt states she urinated on herself after the fall. History of Present Illness HPI narrative: 72-year-old female presents to the ER with concerns of lower back pain after fall. Patient states she got lightheaded while ambulating from her chair to the bathroom and fell. She landed on her bottom. She states she did hit her head but did not lose consciousness. She takes daily aspirin. No other complaints at this time. Patient reports she is supposed to use a walker or cane at home but was not using it when she fell. She states she occasionally gets lightheaded when she gets up from her chair. She did not experience any chest pain or headache. Related Data Home Medications Medication Instructions Recorded Confirmed calcium carbonate (Calcium 600) 600 mg PO DAILY Supplement 09/12/18 04/26/23 clonazepam 1 mg tablet (Klonopin) 1 mg PO BID Anxiety 09/12/18 04/26/23 melatonin 10 mg capsule 10 mg PO HS PRN Sleep 04/01/20 04/26/23 pioglitazone 30 mg tablet (Actos) 30 mg PO DAILY Diabetes 04/01/20 04/26/23 multivitamin 1 each PO DAILY Supplement 04/09/20 04/26/23 empagliflozin 12.5 mg-metformin ER 1 tab PO DAILY Diabetes 06/23/21 04/26/23 1,000 mg tablet,extended rel 24 hr (Synjardy XR) sitagliptin phosphate 100 mg 100 mg PO DAILY Diabetes 10/30/21 04/26/23 tablet (Januvia) finerenone 20 mg tablet (Kerendia) 20 mg PO DAILY KIDNEYS 09/14/22 04/26/23 rosuvastatin 20 mg tablet (Crestor) 10 mg PO DAILY Cholesterol 09/14/22 04/26/23 amlodipine 5 mg tablet 5 mg PO DAILY Hypertension 12/31/22 04/26/23 aspirin 81 mg tablet,delayed 81 mg PO DAILY CIRCULATION 12/31/22 04/26/23 release ferrous sulfate 325 mg (65 mg 325 mg PO DAILY Supplement 12/31/22 04/26/23 iron) tablet,delayed release guanfacine 1 mg tablet 1 mg PO HS Hypertension 12/31/22 04/26/23 Previous Rx's Medication Instructions Recorded amitriptyline 25 mg tablet 25 mg PO HS headache, insomnia 90 06/23/21 days #90 tabs candesartan 32 See Rx Instructions .Route 03/04/23 mg-hydrochlorothiazide 25 mg tablet .COMPLEX #90 tabs carvedilol 12.5 mg tablet 12.5 mg PO BID Hypertension #90 04/02/23 tabs Allergies Allergy/AdvReac Type Severity Reaction Status Date / Time No Known Drug Allergies Allergy Unknown Verified 04/26/23 10:45 [facility] Disclaimer: The information contained in this section may have been updated after the patient was seen, as this information can be updated by other users. Medical History History of respiratory syncytial virus (RSV) infection Cough syncope Respiratory syncytial virus (RSV) Paroxysmal A-fib Accelerated junctional rhythm Abnormal electrocardiogram [ECG] [EKG] Depression History of trigger finger History of cyst of breast Word finding difficulty Sciatica SVT (supraventricular tachycardia) Abnormal EKG Dyspnea Hx of mitral valve prolapse HLD (hyperlipidemia) HTN (hypertension) Diabetes mellitus Family history of heart disease Surgical History History of colonoscopy History of esophagogastroduodenoscopy (EGD) History of surgery aneurism repair History of carpal tunnel release History of hernia repair History of biopsy of temporal artery History of cholecystectomy Family History Other Family history of cardiac disorder Social History Smoking Status: Never smoker alcohol intake: never substance use type: denies use current occupational status: retired Travel in the last 8 weeks: None household members: spouse and children housing: house caffeine: Yes ROS Obtained: Yes All systems reviewed & no additional complaints except as documented Constitutional Constitutional: Denies chills, Denies fever(s), Denies headache(s) and Denies weakness Eyes Eyes: Denies change in vision ENT Ears, Nose, Mouth, and Throat: Denies dizziness, Denies headache(s), Denies nasal congestion and Denies sore throat Cardiovascular Cardiovascular: Denies chest pain, Denies dyspnea and Denies leg edema Respiratory Respiratory: Denies cough and Denies dyspnea Gastrointestinal Gastrointestingal: Denies constipation, diarrhea, nausea or vomiting Genitourinary Female Genitourinary: Denies dysuria Musculoskeletal Musculoskeletal: Denies arthralgias, Reports back pain, Denies myalgias, Denies numbness and Denies tingling Integumentary/Breasts Skin/Breast: Denies change in pigmentation Neurologic Neurologic: Denies dizziness, Denies headache(s), Denies numbness, Denies tingling and Denies weakness Physical Exam General General appearance: alert and in no apparent distress Head Head exam: atraumatic and normocephalic Eye Eye exam: Present PERRL and EOMI ENT ENT exam: Present mucous membranes moist Neck Neck exam: Present normal inspection and full ROM Chest Chest inspection: Present symmetric chest wall rise; Absent tenderness Respiratory Respiratory exam: Present normal lung sounds bilaterally; Absent respiratory distress, wheezes or stridor Cardiovascular Cardiovascular exam: Present normal rhythm and bradycardia Abdominal Exam Abdominal exam: Present soft; Absent distention, tenderness, guarding or rebound Extremities Exam Extremities exam: Present full ROM; Absent tenderness, edema or joint swelling Back Exam Back exam: Present other (Mild midline lumbar tenderness without deformity or step-off, no neurologic deficits) Neurological Exam Neurological exam: Present alert and oriented X3; Absent motor sensory deficit Psychiatric Psychiatric exam: Present normal affect and normal mood Skin Skin exam: Present warm and dry Medical Decision Making Medical Records Medical records reviewed: Yes I reviewed the patient's medical records. MR Comment: Review of patient's records demonstrates she takes multiple medications for blood pressure including carvedilol which may be contributing to her bradycardia. Bhavik Inquiry Pt receiving controlled substance: No Vital Signs: 06/20/23 23:12 06/20/23 23:17 06/20/23 23:31 Temperature 98.2 F Temperature Source Oral Pulse Rate 57 L 56 L Pulse Rate [Left] 58 L Pulse Rate [Orthostatic Lying Left] Pulse Rate [Orthostatic Sitting Left] Pulse Rate [Orthostatic Standing Left] Respiratory Rate 16 Blood Pressure 110/51 L 96/47 L Blood Pressure [Orthostatic Lying Right Arm] Blood Pressure [Orthostatic Sitting Right Arm] Blood Pressure [Orthostatic Standing Right Arm] Blood Pressure [Right Arm] 110/51 L Blood Pressure Mean [Right Arm] 70 Blood Pressure Source Blood Pressure Source [Right Arm] Automatic Cuff Blood Pressure Position Blood Pressure Position [Right Arm] Sitting 02 Sat by Pulse Oximetry 95 96 93 L Oxygen Delivery Method Room Air 06/21/23 00:00 06/21/23 01:13 06/21/23 01:16 Temperature Temperature Source Pulse Rate 55 L Pulse Rate [Left] Pulse Rate [Orthostatic Lying Left] 50 L Pulse Rate [Orthostatic Sitting Left] 52 L Pulse Rate [Orthostatic Standing Left] 46 L Respiratory Rate 16 Blood Pressure 95/47 L Blood Pressure [Orthostatic Lying Right Arm] 109/45 L Blood Pressure [Orthostatic Sitting Right Arm] 98/48 L Blood Pressure [Orthostatic Standing Right Arm] 88/44 L Blood Pressure [Right Arm] Blood Pressure Mean [Right Arm] Blood Pressure Source Blood Pressure Source [Right Arm] Blood Pressure Position Blood Pressure Position [Right Arm] 02 Sat by Pulse Oximetry 93 L Oxygen Delivery Method Room Air 06/21/23 03:08 06/21/23 03:14 Temperature 98.2 F 98.2 F Temperature Source Oral Oral Pulse Rate 58 L 58 L Pulse Rate [Left] Pulse Rate [Orthostatic Lying Left] Pulse Rate [Orthostatic Sitting Left] Pulse Rate [Orthostatic Standing Left] Respiratory Rate 16 16 Blood Pressure 120/51 L 120/51 L Blood Pressure [Orthostatic Lying Right Arm] Blood Pressure [Orthostatic Sitting Right Arm] Blood Pressure [Orthostatic Standing Right Arm] Blood Pressure [Right Arm] Blood Pressure Mean [Right Arm] Blood Pressure Source Automatic Cuff Blood Pressure Source [Right Arm] Blood Pressure Position Sitting Sitting Blood Pressure Position [Right Arm] 02 Sat by Pulse Oximetry 95 Oxygen Delivery Method Room Air Room Air Lab Data Lab Results 06/21/23 00:53: WBC 4.7 L, RBC 3.27 L, Hgb 11.0 L, Hct 34.2 L, MCV 104.5 H, MCH 33.6 H, MCHC 32.2, RDW 14.6, Plt Count 328, MPV 8.4, Neut % (Auto) 60.8, Lymph % (Auto) 27.4, [place] % (Auto) 8.6, Eos % (Auto) 2.8, Baso % (Auto) 0.4, Neut # (Auto) 2.8, Lymph # (Auto) 1.3, [place] # (Auto) 0.4, Eos # (Auto) 0.1, Baso # (Auto) 0.0, Sodium 133 L, Potassium 5.1, Chloride 103, Carbon Dioxide 25, Anion Gap 10.1, BUN 51 H, Creatinine 2.40 H, Estimated Creat Clear 31, Estimated GFR 20 L, Est GFR ( Amer) 24 L, Glucose 145 H, Calcium 8.9, Total Bilirubin 0.3, AST 38 H, ALT 31, Alkaline Phosphatase 93, Troponin I < 0.01, Total Protein 6.4, Albumin 3.7, Globulin 2.7, Albumin/Globulin Ratio 1.4 06/21/23 00:53 06/21/23 00:53 Orders (Tests/Meds): ED MEDICATIONS Generic Name Dose Route Start Last Admin Trade Name Freq PRN Reason Stop Dose Admin Acetaminophen 650 mg 06/21/23 04:25 Acetaminophen 325mg Tab PO 07/21/23 04:24 Q4HP PRN Fever or Mild Pain (1-3) Morphine Sulfate 2 mg 06/21/23 04:26 Morphine 2mg/Ml Syringe IV 07/21/23 04:25 Q4HP PRN Severe Pain (7-10) Ondansetron HCl 4 mg 06/21/23 04:25 Ondansetron 4mg/2ml Vial IV 07/21/23 04:24 Q8HP PRN Nausea And Vomiting Oxycodone HCl 5 mg 06/21/23 04:26 Oxycodone 5mg Immediate Release Tablet PO 07/21/23 04:25 Q4HP PRN Moderate Pain (4-6) Discontinued Medications Generic Name Dose Route Start Last Admin Trade Name Freq PRN Reason Stop Dose Admin Lactated Ringer's 1,000 mls @ 999 mls/hr 06/21/23 00:48 06/21/23 00:56 Lactated Ringer's 1000 Ml Bag IV 06/21/23 01:48 999 mls/hr .Q1H1M ONE Administration ORDERS Category Date Time Status CT cervical spine wo con Stat Cat Scan 06/21/23 00:[address] head/brain wo con Stat Cat Scan 06/21/23 00:[address] lumbar spine wo con Stat Cat Scan 06/21/23 00:45 Completed CXR --portable [XR chest portable] Stat Exams 06/21/23 00:45 Completed CBC w/Auto Diff [Complete Blood Count Auto Diff] Stat Lab 06/21/23 00:53 Completed CMP [Comprehensive Metabolic Panel] Stat Lab 06/21/23 00:53 Completed Trop I [Troponin I] Stat Lab 06/21/23 00:53 Completed Troponin I Q3H Lab 06/21/23 03:45 Ordered Troponin I Q3H Lab 06/21/23 06:45 Ordered Urinalysis and Microscopic Stat Lab 06/21/23 03:05 Ordered ECG Request Stat Y 06/21/23 00:45 Stop Req Medical Decision Narrative: In summary, this 72year old female presents to the emergency department today with low back pain after fall. On initial evaluation patient is hemodynamically stable though she is borderline hypotensive, she is bradycardic, she has good capillary refill, no findings of head or neck injury on exam however unable to rule out intracranial or cervical injury due to age and comorbidities so these will be examined with CT imaging. Patient has tenderness to palpation of her midline lumbar spine without deformity or step-off, no neurologic deficits. Remainder of exam reassuring. Differential diagnosis includes but is not limited to electrolyte abnormality, dehydration, medication side effect, arrhythmia, cardiac event, intracranial bleed, spinal injury. Based on these concerns, I ordered imaging of the head, neck, lumbar spine, cardiac workup. I have very low suspicion for ACS since patient did not have chest pain preceding her lightheadedness, however given history and borderline hypotension I believe it needs to be ruled out. ECG personally interpreted demonstrates sinus bradycardia, rate 52, normal axis, tracely prolonged SC at 201, QTc normal at 423. No STEMI, no Brugada, no WPW, no findings of HOCM Patient received IV fluids for treatment. Labs personally reviewed demonstrate mild leukopenia and anemia, significant kidney dysfunction compared to labs which I reviewed from March, initial troponin undetectably low at less than 0.01. XR personally interpreted demonstrates no acute thoracic abnormality, see radiology read for final interpretation. CT imaging personally interpreted demonstrate no acute intracranial bleed, mass, or midline shift, no traumatic injury in the cervical spine, lumbar spine does demonstrate questionable L1 fracture. See radiology read for final interpretation. I had an interactive discussion with transfer center and spine team. Dr. Day with spine reviewed the images and stated that since patient is not having any neurologic deficits, she does not require any surgical intervention or follow-up for this. Patient does require admission for findings of kidney dysfunction as well as symptomatic bradycardia and borderline hypotension concerning for polypharmacy. I discussed this case with Dr. Gunn who is patient's primary care physician and would be admitting her. He accepted the patient for admission. Critical Care Critical Care Time Critical Care Time: No
[2023-06-21] MEDS: LACTATED RINGERS 1000ML 1,000 ML 999 ML IV (00:56)
[2023-06-21 01:00] LABS: Basophils % 0.4 % (0.1-2.0); Eosinophils # 0.1 K/mm3 (0.0-0.4); Eosinophils % 2.8 % (0.1-12.0); Hematocrit 34.2 % (37.0-47.0); Lymphocytes # 1.3 K/mm3 (0.7-4.5); Lymphocytes % 27.4 % (10-50); Mean Corpuscular HGB Conc 32.2 g/dL (31.8-35.4); Mean Corpuscular Hemoglobin 33.6 pg (27.0-31.2); Mean Corpuscular Volume 104.5 fl (81-99); Mean Platelet Volume 8.4 fl (7.4-10.4); Monocytes # 0.4 K/mm3 (0.1-1.0); Monocytes % 8.6 % (1.7-9.3); Neutrophils # 2.8 K/mm3 (1.8-7.8); Neutrophils % 60.8 % (37.0-80.0); Platelet Count 328 K/mm3 (142-424); Red Blood Count 3.27 M/mm3 (4.20-5.40); Red Cell Distribution Width 14.6 % (11.5-17.5); White Blood Count 4.7 K/mm3 (4.8-10.8)
[2023-06-21 01:05] LABS: Potassium 5.1 mmoL/L (3.5-5.1); Sodium 133 mmol/L (136-145)
[2023-06-21 01:07] LABS: Alanine Aminotransferase 31 U/L (12-78); Alkaline Phosphatase 93 U/L (38-126); Aspartate Amino Transferase 38 U/L (14-36); Bilirubin,Total 0.3 mg/dl (0.2-1.3); Blood Urea Nitrogen 51 mg/dl (7-17); Creatinine Clearance Estimated 31 mL/min (50-200); Estimated Glomerular Filt Rate 20 ml/min (>60); GFR (African American) 24 ML/MIN (>60)
[2023-06-21 01:08] LABS: Albumin Level 3.7 g/dl (3.5-5.0); Albumin/Globulin Ratio 1.4 (1.1-1.8); Calcium 8.9 mg/dl (8.4-10.2); Carbon Dioxide 25 mmol/L (22.0-30.0); Globulin 2.7 g/dL (1.3-3.2); Glucose 145 mg/dl (74-100); Total Protein,Serum 6.4 g/dl (6.3-8.2)
[2023-06-21 01:21] LABS: Troponin I < 0.01 ng/ml (0.00-0.034)
[2023-06-21 01:24] LABS: Anion Gap 10.1 mEq/L (5-15); Chloride 103 mmol/L (98-107)
--- NOTE | 2023-06-21 02:39 | PC.NURSE ---
Called about a consult with spine for the pt per request of Dr Espana. JOSE ALFREDO
--- NOTE | 2023-06-21 02:45 | PC.NURSE ---
on phone with carolyn
--- NOTE | 2023-06-21 02:58 | PC.NURSE ---
paging dr moraes @ this time
--- NOTE | 2023-06-21 03:08 | PC.NURSE ---
Admitting notified for admission
--- NOTE | 2023-06-21 03:34 | PC.NURSE ---
Patient arrived to floor via stretcher from ED at 3:30.
[2023-06-21] MEDS: OXYCODONE 5MG IMMEDIATE RELEASE TABLET 5 MG PO ×3 (04:36→21:49)
[2023-06-21 05:32] LABS: Troponin I < 0.01 ng/ml (0.00-0.034)
--- NOTE | 2023-06-21 08:18 | P.HP_ITS ---
History of Present Illness *Admission Date: 06/21/23 *Reason for visit:: Fall: Back pain *History of present illness: Medical Decision Narrative: In summary, this 72year old female presents to the emergency department today with low back pain after fall. On initial evaluation patient is hemodynamically stable though she is borderline hypotensive, she is bradycardic, she has good capillary refill, no findings of head or neck injury on exam however unable to rule out intracranial or cervical injury due to age and comorbidities so these will be examined with CT imaging. Patient has tenderness to palpation of her midline lumbar spine without deformity or step-off, no neurologic deficits. Remainder of exam reassuring. Differential diagnosis includes but is not limited to electrolyte abnormality, dehydration, medication side effect, arrhythmia, cardiac event, intracranial bleed, spinal injury. Based on these concerns, I ordered imaging of the head, neck, lumbar spine, cardiac workup. I have very low suspicion for ACS since patient did not have chest pain preceding her lightheadedness, however given history and borderline hypotension I believe it needs to be ruled out. ECG personally interpreted demonstrates sinus bradycardia, rate 52, normal axis, tracely prolonged ND at 201, QTc normal at 423. No STEMI, no Brugada, no WPW, no findings of HOCM Patient received IV fluids for treatment. Labs personally reviewed demonstrate mild leukopenia and anemia, significant kidney dysfunction compared to labs which I reviewed from March, initial troponin undetectably low at less than 0.01. XR personally interpreted demonstrates no acute thoracic abnormality, see radiology read for final interpretation. CT imaging personally interpreted demonstrate no acute intracranial bleed, mass, or midline shift, no traumatic injury in the cervical spine, lumbar spine does demonstrate questionable L1 fracture. See radiology read for final interpretation. I had an interactive discussion with transfer center and spine team. Dr. Day with spine reviewed the images and stated that since patient is not having any neurologic deficits, she does not require any surgical intervention or follow-up for this. Patient does require admission for findings of kidney dysfunction as well as symptomatic bradycardia and borderline hypotension concerning for polypharmacy. I discussed this case with Dr. Gunn who is patient's primary care physician and would be admitting her. He accepted the patient for admission. The above as per ER physician. CT of [facility]: IMPRESSION: 1. Acute/subacute mild superior endplate compression deformity of L1. 2. Diffuse significant degenerative changes of the lumbar spine. 3. Other stable nonemergent findings as detailed. Patient this morning feels somewhat better. She is able to eat breakfast although she does not usually eat breakfast.. Also to note patient is recently completed a course of Keflex for strep throat. She states that she is continues to have somewhat of a sore throat. Back discomfort is somewhat better after receiving pain medicine. [facility] Disclaimer: The information contained in this section may have been updated after the patient was seen, as this information can be updated by other users. Medical History (Updated 06/21/23 @ 13:23 by Chase Gunn MD) Stage 3b chronic kidney disease (CKD) History of respiratory syncytial virus (RSV) infection Cough syncope Respiratory syncytial virus (RSV) Paroxysmal A-fib Accelerated junctional rhythm Abnormal electrocardiogram [ECG] [EKG] Depression History of trigger finger History of cyst of breast Word finding difficulty Sciatica SVT (supraventricular tachycardia) Abnormal EKG Dyspnea Hx of mitral valve prolapse HLD (hyperlipidemia) HTN (hypertension) Diabetes mellitus Family history of heart disease Surgical History History of colonoscopy History of esophagogastroduodenoscopy (EGD) History of surgery History of carpal tunnel release History of hernia repair History of biopsy of temporal artery History of cholecystectomy Family History Other Family history of cardiac disorder Social History Smoking Status: Never smoker alcohol intake: never substance use type: denies use current occupational status: retired Travel in the last 8 weeks: None household members: spouse and children housing: house caffeine: Yes Review of Systems Constitutional Constitutional: Denies fever(s), Reports frequent falls, Denies headache(s) and Denies weakness Eyes Eyes: Denies change in vision ENT Ears, Nose, Mouth, and Throat: Denies dizziness, Denies otalgia, Denies headache(s), Reports nasal congestion, Reports post nasal drip, Reports sore throat and Denies vertigo *Cardiovascular Cardiovascular: Denies chest pain, Reports dyspnea on exertion and Denies leg edema *Respiratory Respiratory: Reports cough (Dry cough) and Reports dyspnea on exertion *Gastrointestinal Gastrointestinal: Denies bloating, Denies change in stool character, Denies diarrhea, Denies dyspepsia, Denies heartburn, Denies loose stools, Reports nausea and Reports vomiting *Genitourinary Genitourinary: Denies dysuria and Reports urinary incontinence (Has a bladder stimulator) *Musculoskeletal Musculoskeletal: Reports abnormal gait, Reports back pain, Denies numbness and Denies tingling *Neurologic Neurologic: Reports abnormal gait, Denies abnormal speech, Denies confusion, Denies dizziness, Reports frequent falls, Denies headache(s), Denies numbness, Denies tingling, Denies vertigo and Denies weakness Psychiatric Psychiatric: Denies confusion Meds Home Medications and Allergies Home Medications Medication Instructions Recorded Confirmed Type clonazepam 1 mg tablet (Klonopin) 1 mg PO BIDP PRN Anxiety 09/12/18 06/21/23 History pioglitazone 30 mg tablet (Actos) 30 mg PO DAILY 04/01/20 06/21/23 History empagliflozin 12.5 mg-metformin ER 2 tab PO DAILY 06/23/21 06/21/23 History 1,000 mg tablet,extended rel 24 hr (Synjardy XR) sitagliptin phosphate 100 mg 100 mg PO DAILY 10/30/21 06/21/23 History tablet (Januvia) finerenone 20 mg tablet (Kerendia) 10 mg PO DAILY 09/14/22 06/21/23 History amlodipine 5 mg tablet 5 mg PO DAILY 12/31/22 06/21/23 History aspirin 81 mg tablet,delayed 81 mg PO DAILY 12/31/22 06/21/23 History release ferrous sulfate 325 mg (65 mg 325 mg PO TID 12/31/22 06/21/23 History iron) tablet,delayed release amitriptyline 25 mg tablet 25 mg PO HS 06/21/23 06/21/23 History candesartan 32 1 tab PO DAILY 06/21/23 06/21/23 History mg-hydrochlorothiazide 25 mg tablet carvedilol 12.5 mg tablet 12.5 mg PO BID 06/21/23 06/21/23 History fluticasone propionate 50 1 spray intranasal DAILY 06/21/23 06/21/23 History mcg/actuation nasal spray,suspension oxybutynin chloride 15 mg 15 mg PO DAILY 06/21/23 06/21/23 History tablet,extended release 24 hr pantoprazole 40 mg tablet,delayed 40 mg PO BID 06/21/23 06/21/23 History release rosuvastatin 10 mg tablet 10 mg PO HS 06/21/23 06/21/23 History vortioxetine 20 mg tablet 20 mg PO DAILY 06/21/23 06/21/23 History (Trintellix) New Prescriptions to Start Prescriptions: Allergies Allergy/AdvReac Type Severity Reaction Status Date / Time No Known Drug Allergies Allergy Unknown Verified 04/26/23 10:45 Exam Data for Last 24 hours Vital signs and Labs for Last 24 Hours: Temp Pulse Resp BP Pulse Ox O2 Del Method 98.7 F 80 19 133/57 L 94 L Room Air 06/21/23 07:57 06/21/23 07:57 06/21/23 07:57 06/21/23 07:57 06/21/23 07:57 06/21/23 07:57 Laboratory Results - last 24 hr 06/21/23 00:53: WBC 4.7 L, RBC 3.27 L, Hgb 11.0 L, Hct 34.2 L, MCV 104.5 H, MCH 33.6 H, MCHC 32.2, RDW 14.6, Plt Count 328, MPV 8.4, Neut % (Auto) 60.8, Lymph % (Auto) 27.4, [place] % (Auto) 8.6, Eos % (Auto) 2.8, Baso % (Auto) 0.4, Neut # (Auto) 2.8, Lymph # (Auto) 1.3, [place] # (Auto) 0.4, Eos # (Auto) 0.1, Baso # (Auto) 0.0, Sodium 133 L, Potassium 5.1, Chloride 103, Carbon Dioxide 25, Anion Gap 10.1, BUN 51 H, Creatinine 2.40 H, Estimated Creat Clear 31, Estimated GFR 20 L, Est GFR ( Amer) 24 L, Glucose 145 H, Calcium 8.9, Total Bilirubin 0.3, AST 38 H, ALT 31, Alkaline Phosphatase 93, Troponin I < 0.01, Total Protein 6.4, Albumin 3.7, Globulin 2.7, Albumin/Globulin Ratio 1.4 06/21/23 04:55: Troponin I < 0.01 I & O for Last 24 hours: Intake & Output 05/12/0106/19/23 06/20/23 06/21/23 11:59 11:59 11:59 11:59 Intake Total 270 / 270 Output Total 0 / 0 Balance 270 / 270 Weight 213 lb 3.2 oz Constitutional Constitutional: no acute distress Comments: Sitting up in the bed eating her breakfast. Seems to be comfortable. *Routine HEENT Exam Head: Present normocephalic and atraumatic Eye: Present PERRL; Absent conjunctival icterus or scleral injection ENT: Present mucous membranes moist and oropharynx clear *Routine Neck Exam Neck: Present supple; Absent carotid bruit, lymphadenopathy or thyromegaly *Routine Respiratory Exam Respiratory: Present CTA bilaterally (Anteriorly and posteriorly) *Routine Cardiovascular Exam Cardiovascular: Present RRR (70/min) *Routine Abdominal Exam Abdominal: Present soft, normoactive bowel sounds, obese and surgical scars; Absent tenderness or distended *Routine Rectal Exam Rectal:: deferred *Routine Genitalia Exam Genitalia:: deferred *Routine Extremities Exam Extremities: Present pulses intact; Absent edema, full ROM or calf tenderness Comments: Moves all extremities without difficulty *Routine Neurological Exam Neurological: Present alert and oriented X3 Assessment and Plan *Assessment and plan (1) Bradycardia: Status: Acute Category: Medical Code(s): R00.1 - Bradycardia, unspecified (2) Closed compression fracture of lumbar vertebra: Status: Acute Category: Medical Code(s): S32.000A - Wedge compression fracture of unspecified lumbar vertebra, initial encounter for closed fracture (3) Fall: Status: Acute Category: Medical Code(s): W19.XXXA - Unspecified fall, initial encounter (4) Kidney dysfunction: Status: Acute Category: Medical Code(s): N28.9 - Disorder of kidney and ureter, unspecified (5) Blunt head trauma: Status: Acute Category: Medical Code(s): S09.8XXA - Other specified injuries of head, initial encounter (6) KLAUS (acute kidney injury): Status: Acute Category: Medical Code(s): N17.9 - Acute kidney failure, unspecified (7) Diabetes mellitus: Status: Chronic Qualifiers: Diabetes mellitus complication status: with other specified complication Diabetes mellitus adjunct faculty for medical terminology insulin use: unspecified adjunct faculty for medical terminology insulin use status Diabetes mellitus type: type 2 Qualified Code(s): E11.69 - Type 2 diabetes mellitus with other specified complication Category: Medical Code(s): E11.9 - Type 2 diabetes mellitus without complications (8) Hypotension: Status: Acute Category: Medical Code(s): I95.9 - Hypotension, unspecified (9) Stage 3b chronic kidney disease (CKD): Status: Acute Category: Medical Code(s): N18.32 - Chronic kidney disease, stage 3b Plan Will place on telemetry due to bradycardia in the ER. Renal function has improved with IV fluids and will continue these. Physical therapy consulted. Continue to monitor labs . Due to admission hypotension will hold blood pressure medicines for now. Will add sliding scale insulin with fingersticks before meals and at bedtime Dr. Gunn entry - Saw patient, agree with above note.
[2023-06-21 08:40] LABS: Troponin I < 0.01 ng/ml (0.00-0.034)
--- NOTE | 2023-06-21 09:26 | HMH.PHAINT1 ---
Pharmacy Intervention Comments: MEDICATION RECONCILIATION COMPLETED ON PATIENT USING EXTERNAL FILL HISTORY FROM PHARMACY AND LIST FROM [facility] OFFICE. -ANA SEXTOND
[2023-06-21] MEDS: FLUTICASONE PROP 50MCG NASAL SPRAY 16GM 1 SPRAY NS (09:41)
[2023-06-21] MEDS: 0.9 % SODIUM CHLORIDE 1000ML 1,000 ML 75 ML IV (09:42)
--- NOTE | 2023-06-21 09:58 | HMH.PTEV ---
Physical Therapy Evaluation Rehab PT IP Evaluation Start: 06/21/23 08:21 Freq: ONCE Status: Active Protocol: Document 06/21/23 09:52 PHORNE (Rec: 06/21/23 09:58 PHORNE Laptop) Subjective/History History History 72 yowf adm to [facility] after fall at home, now with L1 compression fx. She reports she lives with her who helps care for her at baseline. She reports 2 steps to enter the home and she is generally able to ambulate independently without an AD, she does have a RW at home. She has PMH of: History of respiratory syncytial virus (RSV) infection Cough syncope Respiratory syncytial virus ( RSV) Paroxysmal A-fib Accelerated junctional rhythm Abnormal electrocardiogram [ ECG] [EKG] Depression History of trigger finger History of cyst of breast Word finding difficulty Sciatica SVT (supraventricular tachycardia) Abnormal EKG Dyspnea Hx of mitral valve prolapse HLD (hyperlipidemia) HTN (hypertension) Diabetes mellitus Family history of heart disease Subjective Subjective Pt reports some pain in her low back this am, worse when she coughs. She does agree to mobility assessment. New diagnosis of cancer in past 12 No months? Rehab PT IP Eval Objective Appearance Patient Behavior Appropriate Patient Orientation Person,Place,Time Difficulty following instructions none Speech Pattern Clear Ambulation Patient Able to Ambulate Yes Ambulation Observation IP General Gait Pattern Observation Wide Based Gait Ambulation Distance (feet) 15 Ambulation Assistive Device Rolling Walker Ambulation Ability Contact Guard/Hand Hold Balance Ability to Arise Able, uses arms to help Sitting Balance Steady, safe Standing Balance Steady, wide stance Dynamic Sitting Balance Ability Good Dynamic Standing Balance Ability Fair Transfers Bed Transfer Ability Minimal x 1 (25% assist) Chair Transfer Ability Minimal x 1 (25% assist) Sit to Stand Bed Transfer Ability Minimal x 1 (25% assist) Sit to Stand Chair Transfer Ability Minimal x 1 (25% assist) Rehab PT IP prob,goals,plan Problems Date of Evaluation: 06/21/23 PT IP Problems Bed Mobility,Transfers,Gait Rehab Potential Rehab Potential Good Plan PT Intervention Plan Bed Mobility,Transfers,Gait, Therapeutic Exercise PT Plan Frequency Daily Duration LOS Discharge Goals Bed Transfer Ability Contact Guard/Hand Hold Sit to Stand Chair Transfer Ability Contact Guard/Hand Hold Ambulation Assistive Device Rolling Walker Ambulation Distance (feet) 30 Discharge Plan PT Discharge Plan Pt is currently appropriate to return home once medically stable with souse assist. She would benefit from home health therapy after d/c. Skilled therapy is needed to prevent further injuries or falls and to return pt to prior level of function. Eval Complexity Eval Charge Codes 77042 - High Complexity PHYSICIAN CERTIFICATION: I certify the specified therapy services for Rosa Wray are required, authorized, and reviewed every 30 days.
[2023-06-21 12:17] LABS: POC Glucose,Bedside 130 (70-110)
--- NOTE | 2023-06-21 14:16 | PC.NURSE ---
First oxy pill was dropped on the floor. Wasted with Edmond RN another pill pulled and given to PT
[2023-06-21] MEDS: MORPHINE 2MG/ML SYRINGE 2 MG IV (15:33)
[2023-06-21 16:25] LABS: POC Glucose,Bedside 163 (70-110)
[2023-06-21] MEDS: humaLOG 100 UNITS/ML 3ML VIAL (SSI) SQ ×2 (16:55→20:47)
[2023-06-21 18:55] LABS: Microscopic, Urine URINE MICROSCOPIC (MICROSCOPIC)
[2023-06-21 19:05] LABS: Appearance,Urine CLEAR (Clear); Bilirubin,Urine Negative (Negative); Blood, Urine 1+ (Negative); Color,Urine YELLOW (Yellow); Glucose,Urine (UA) 3+ (Negative); Ketones,Urine Negative (Negative); Leukocyte Esterase,Urine 1+ (Negative); Nitrate,Urine Negative (Negative); PH,Urine 5.5 (5.0-8.5); Protein,Urine Negative (Negative); Urobilinogen,Urine 0.2 EU/dl (0.2)
[2023-06-21 19:21] LABS: Bacteria,Urine Trace /lpf; Calcium Oxalate Crystals,Urine Trace /lpf; RBC,Urine Occasional #/hpf (0-3); WBC,Urine Occasional #/hpf (0-3)
[2023-06-22] VITALS: BP 111/42; PULSE 77; PULSE 83; RESP 16; TEMP 37.4; O2SAT 90
--- NOTE | 2023-06-22 01:28 | PC.NURSE ---
Addendum entered by Alejandra Hansen RN 06/22/23 03:48: Reassessed pt @ 0330, turned down to 1L NC, pt dropped to 88%, put back on 2L NC, 91%. Original Note: During vital sign assessment by tech, pt O2 sat noted to be sustaining 80%, pt does not appear to be in any stress, no complaints of SOB, lung sounds clear. Applied 2L NC, pt O2 sat reading 92%, will reassess and try to wean back to RA.
[2023-06-22] MEDS: 0.9 % SODIUM CHLORIDE 1000ML 1,000 ML 75 ML IV (02:48)
[2023-06-22 04:00] VITALS: BP 102/52; PULSE 73; PULSE 76; RESP 18; TEMP 37.4; O2SAT 91; BMI 36.3
--- NOTE | 2023-06-22 04:46 | PC.NURSE ---
Alert and oriented. Complained of pain, treated per apr. Pt still requiring 2L NC to remain O2 sat >90%. Pt ambulates to the restroom using walker with standby assist. Lung sounds clear, no complaints of SOB. Call light in reach.
[2023-06-22] MEDS: humaLOG 100 UNITS/ML 3ML VIAL (SSI) SQ (05:28)
[2023-06-22 07:11] LABS: Basophils % 0.6 % (0.1-2.0); Eosinophils # 0.1 K/mm3 (0.0-0.4); Eosinophils % 2.5 % (0.1-12.0); Hematocrit 31.2 % (37.0-47.0); Hemoglobin 9.9 g/dL (12.2-16.2); Lymphocytes # 1.3 K/mm3 (0.7-4.5); Lymphocytes % 32.4 % (10-50); Mean Corpuscular HGB Conc 31.7 g/dL (31.8-35.4); Mean Corpuscular Hemoglobin 33.1 pg (27.0-31.2); Mean Corpuscular Volume 104.3 fl (81-99); Mean Platelet Volume 8.1 fl (7.4-10.4); Monocytes # 0.4 K/mm3 (0.1-1.0); Monocytes % 10.3 % (1.7-9.3); Neutrophils # 2.2 K/mm3 (1.8-7.8); Neutrophils % 54.2 % (37.0-80.0); Platelet Count 234 K/mm3 (142-424); Red Blood Count 2.99 M/mm3 (4.20-5.40); Red Cell Distribution Width 14.6 % (11.5-17.5); White Blood Count 4.1 K/mm3 (4.8-10.8)
[2023-06-22 07:55] LABS: Anion Gap 11.6 mEq/L (5-15); Blood Urea Nitrogen 39 mg/dl (7-17); Calcium 8.9 mg/dl (8.4-10.2); Carbon Dioxide 24 mmol/L (22.0-30.0); Chloride 104 mmol/L (98-107); Creatinine Clearance Estimated 42 mL/min (50-200); Estimated Glomerular Filt Rate 26 ml/min (>60); GFR (African American) 31 ML/MIN (>60); Glucose 132 mg/dl (74-100); Potassium 4.6 mmoL/L (3.5-5.1); Sodium 135 mmol/L (136-145)
[2023-06-22 08:00] VITALS: BP 139/52; PULSE 82; PULSE 85; RESP 20; TEMP 37.1; O2SAT 91
--- NOTE | 2023-06-22 08:03 | P.PN_ITS ---
Subjective *Date: 06/22/23 *Time: 08:25 Interval history: Patient states she is doing better today. She was able to work with physical therapy yesterday and walk with her walker. She has walked to the bathroom with her walker. She continues to have back discomfort. She is eating without problems. She states her urinary output has decreased. Bowels have not moved. She denies chest pain and shortness of breath. Renal function has improved with a BUN of 39 and creatinine of 1.9 from creatinine of 2.4. Sodium is 135 and potassium 4.6. Hemoglobin is 9.9 with hematocrit of 31.2 today and white blood count 4100. Urine cultures pending.Blood pressure range from 133/57 down to 102/52 this a.m. heart rate has been 83, 73, 76. Medical Exam Vital signs and Labs for Last 24 Hours: Vital Signs Temp Pulse Pulse Resp BP Pulse Ox O2 Del Method 06/22/23 06:59 Nasal Cannula 06/22/23 04:45 Nasal Cannula 06/22/23 04:00 99.3 F 76 18 102/52 L 91 L Nasal Cannula 06/22/23 04:00 73 06/22/23 02:51 Nasal Cannula 06/22/23 01:00 Nasal Cannula 06/22/23 00:00 77 06/22/23 00:00 99.4 F 83 16 111/42 L 90 L Room Air 06/21/23 23:00 Room Air 06/21/23 21:00 Room Air 06/21/23 20:00 98.9 F 80 18 117/55 L 91 L Room Air 06/21/23 20:00 80 06/21/23 20:00 Room Air 06/21/23 18:56 Room Air 06/21/23 17:00 Room Air 06/21/23 16:02 90 06/21/23 16:00 97.8 F 88 19 117/45 L 91 L Room Air 06/21/23 15:00 Room Air 06/21/23 13:00 Room Air 06/21/23 12:00 60 06/21/23 12:00 98.4 F 67 17 115/46 L 96 Room Air 06/21/23 11:01 70 06/21/23 11:00 Room Air 06/21/23 09:00 Room Air O2 Flow Rate 06/22/23 06:59 2 06/22/23 04:45 2 06/22/23 04:00 2 06/22/23 04:00 06/22/23 02:51 2 06/22/23 01:00 2 06/22/23 00:00 06/22/23 00:00 06/21/23 23:00 06/21/23 21:00 06/21/23 20:00 06/21/23 20:00 06/21/23 20:00 06/21/23 18:56 06/21/23 17:00 06/21/23 16:02 06/21/23 16:00 06/21/23 15:00 06/21/23 13:00 06/21/23 12:00 06/21/23 12:00 06/21/23 11:01 06/21/23 11:00 06/21/23 09:00 Intake and Output 06/21/23 06/22/23 06/22/23 19:59 03:59 11:59 Intake Total 690 / 690 2000 / 2690 Output Total 0 / 0 0 / 0 0 / 0 Balance 690 / 690 1999 / 2690 0 / 2690 Intake: Intake, Oral Amount 690 / 690 Intake, Total IV Amount 1999 / 1999 0.9 % Sodium Chloride 1000ML 1, 1999 / 1999 000 ml @ 75 mls/hr IV .[id number] [facility] Rx#:[id number] Output: Output, Urine Amount 0 / 0 0 / 0 0 / 0 Other: Number of Voids 0 Number of Unmeasured Voids 1 1 1 Number of Bowel Movements 0 Weight 218 lb 6.4 oz Patient Weight 06/22/23 11:59 Weight 218 lb 6.4 oz Laboratory Results - last 24 hr 06/21/23 07:50: Troponin I < 0.01 06/21/23 11:44: POC Glucose 130 H 06/21/23 16:18: POC Glucose 163 H 06/21/23 18:44: Urine Color Yellow, Urine Appearance Clear, Urine pH 5.5, Ur Specific [place] 1.020, Urine Protein Negative, Urine Glucose (UA) 3+, Urine Ketones Negative, Urine Blood 1+, Urine Nitrate Negative, Urine Bilirubin Negative, Urine Urobilinogen 0.2, Ur Leukocyte Esterase 1+ A, Urine RBC Occasional, Urine WBC Occasional, Ur Squamous Epith Cells 3-5, Calcium Oxalate Crystal Trace, Urine Bacteria Trace 05/14/24 06:23: WBC 4.1 L, RBC 2.99 L, Hgb 9.9 L, Hct 31.2 L, MCV 104.3 H, MCH 33.1 H, MCHC 31.7 L, RDW 14.6, Plt Count 234 D, MPV 8.1, Neut % (Auto) 54.2, Lymph % (Auto) 32.4, [place] % (Auto) 10.3 H, Eos % (Auto) 2.5, Baso % (Auto) 0.6, Neut # (Auto) 2.2, Lymph # (Auto) 1.3, [place] # (Auto) 0.4, Eos # (Auto) 0.1, Baso # (Auto) 0.0, Sodium 135 L, Potassium 4.6, Chloride 104, Carbon Dioxide 24, Anion Gap 11.6, BUN 39 H, Creatinine 1.90 H D, Estimated Creat Clear 42, Estimated GFR 26 L, Est GFR ( Amer) 31 L D, Glucose 132 H, Calcium 8.9 I & O for Labs for Last 24 Hours: Intake & Output 06/19/23 06/20/23 06/21/23 06/22/23 11:59 11:59 11:59 11:59 Intake Total 270 / 270 2690 / 2690 Output Total 0 / 0 0 / 0 Balance 270 / 270 2690 / 2690 Weight 213 lb 3.2 oz 218 lb 6.4 oz Constitutional: Present no acute distress Comment:: Sitting up in the bedside chair eating her breakfast and appears comfortable Respiratory: Present CTA bilaterally (Anteriorly and posteriorly) Cardiac: Present Reg Rate and Rhythm (70s; monitor showing sinus rhythm. No ectopy noted) GI: Present soft and normal bowel sounds; Absent distention, tenderness or guarding Extremities: Present edema (Trace bilateral ankle edema) Neuro: Present alert, awake and oriented x 3 Assessment and Plan *Assessment and plan (1) Bradycardia: Status: Acute Category: Medical Code(s): R00.1 - Bradycardia, unspecified (2) Closed compression fracture of lumbar vertebra: Status: Acute Category: Medical Code(s): S32.000A - Wedge compression fracture of unspecified lumbar vertebra, initial encounter for closed fracture (3) Fall: Status: Acute Category: Medical Code(s): W19.XXXA - Unspecified fall, initial encounter (4) Kidney dysfunction: Status: Acute Category: Medical Code(s): N28.9 - Disorder of kidney and ureter, unspecified (5) Blunt head trauma: Status: Acute Category: Medical Code(s): S09.8XXA - Other specified injuries of head, initial encounter (6) KLAUS (acute kidney injury): Status: Acute Category: Medical Code(s): N17.9 - Acute kidney failure, unspecified (7) Diabetes mellitus: Status: Chronic Qualifiers: Diabetes mellitus complication status: with other specified complication Diabetes mellitus chcf insulin use: unspecified chcf insulin use status Diabetes mellitus type: type 2 Qualified Code(s): E11.69 - Type 2 diabetes mellitus with other specified complication Category: Medical Code(s): E11.9 - Type 2 diabetes mellitus without complications (8) Hypotension: Status: Acute Category: Medical Code(s): I95.9 - Hypotension, unspecified (9) Stage 3b chronic kidney disease (CKD): Status: Acute Category: Medical Code(s): N18.32 - Chronic kidney disease, stage 3b Plan Patient will discharge to home today. Close follow-up in the office with labs. Possible home health for with PT. Dr. Gunn entry - Saw patient, agree with above note. OK to discharge home today with a decrease in BP meds. She does not want physical therapy at this time.
[2023-06-22] MEDS: FLUTICASONE PROP 50MCG NASAL SPRAY 16GM 1 SPRAY NS (08:14)
--- NOTE | 2023-06-23 14:26 | EXP.DC.SUM ---
General Admission date:: 06/21/23 Discharge date: 06/22/23 HPI HPI HPI: Medical Decision Narrative: In summary, this 72year old female presents to the emergency department today with low back pain after fall. On initial evaluation patient is hemodynamically stable though she is borderline hypotensive, she is bradycardic, she has good capillary refill, no findings of head or neck injury on exam however unable to rule out intracranial or cervical injury due to age and comorbidities so these will be examined with CT imaging. Patient has tenderness to palpation of her midline lumbar spine without deformity or step-off, no neurologic deficits. Remainder of exam reassuring. Differential diagnosis includes but is not limited to electrolyte abnormality, dehydration, medication side effect, arrhythmia, cardiac event, intracranial bleed, spinal injury. Based on these concerns, I ordered imaging of the head, neck, lumbar spine, cardiac workup. I have very low suspicion for ACS since patient did not have chest pain preceding her lightheadedness, however given history and borderline hypotension I believe it needs to be ruled out. ECG personally interpreted demonstrates sinus bradycardia, rate 52, normal axis, tracely prolonged NJ at 201, QTc normal at 423. No STEMI, no Brugada, no WPW, no findings of HOCM Patient received IV fluids for treatment. Labs personally reviewed demonstrate mild leukopenia and anemia, significant kidney dysfunction compared to labs which I reviewed from March, initial troponin undetectably low at less than 0.01. XR personally interpreted demonstrates no acute thoracic abnormality, see radiology read for final interpretation. CT imaging personally interpreted demonstrate no acute intracranial bleed, mass, or midline shift, no traumatic injury in the cervical spine, lumbar spine does demonstrate questionable L1 fracture. See radiology read for final interpretation. I had an interactive discussion with transfer center and spine team. Dr. Day with spine reviewed the images and stated that since patient is not having any neurologic deficits, she does not require any surgical intervention or follow-up for this. Patient does require admission for findings of kidney dysfunction as well as symptomatic bradycardia and borderline hypotension concerning for polypharmacy. I discussed this case with Dr. Gunn who is patient's primary care physician and would be admitting her. He accepted the patient for admission. The above as per ER physician. CT of BAck: IMPRESSION: 1. Acute/subacute mild superior endplate compression deformity of L1. 2. Diffuse significant degenerative changes of the lumbar spine. 3. Other stable nonemergent findings as detailed. Patient this morning feels somewhat better. She is able to eat breakfast although she does not usually eat breakfast.. Also to note patient is recently completed a course of Keflex for strep throat. She states that she is continues to have somewhat of a sore throat. Back discomfort is somewhat better after receiving pain medicine. Hospital Course Hospital Course Hospital Course: On admission beta-ursula and blood pressure medications were held due to hypotension and bradycardia. Renal function improved with her IV fluids. Physical therapy was consulted and felt she would do well going home with home health. She did eat satisfactory and was out of bed with her walker. On 06/22/2023 patient was stable to be discharged home. Blood pressure medication and diabetes medication were decreased. Patient declined physical therapy at this time. Patient was stable and satisfactory. Exam Data for Last 24 hours Vital signs and Labs for Last 24 Hours: Temp Pulse Resp BP Pulse Ox O2 Del Method O2 Flow Rate 98.8 F 82 20 139/52 L 91 L Room Air 2 06/22/23 08:00 06/22/23 08:00 06/22/23 08:00 06/22/23 08:00 06/22/23 08:00 06/22/23 09:00 06/22/23 06:59 I & O for Last 24 hours: Intake & Output 06/21/23 06/22/23 06/23/23 06/24/23 11:59 11:59 11:59 11:59 Intake Total 270 / 270 2930 / 2930 Output Total 0 / 0 0 / 0 Balance 270 / 270 2930 / 2930 Weight 213 lb 3.2 oz 218 lb 6.4 oz Microbiology Reports for the Last 24 Hours: Microbiology 06/21/23 18:44 Urine,Clean Catch Urine Culture - Final Klebsiella pneumoniae Narrative: Constitutional: Present no acute distress Comment:: Sitting up in the bedside chair eating her breakfast and appears comfortable Respiratory: Present CTA bilaterally (Anteriorly and posteriorly) Cardiac: Present Reg Rate and Rhythm (70s; monitor showing sinus rhythm. No ectopy noted) GI: Present soft and normal bowel sounds; Absent distention, tenderness or guarding Extremities: Present edema (Trace bilateral ankle edema) Neuro: Present alert, awake and oriented x 3 Results Data Completed and Pending Completed studies during hospitalization [Text1]: 05/13/24 07:50: Troponin I < 0.01 06/21/23 11:44: POC Glucose 130 H 06/21/23 16:18: POC Glucose 163 H 06/21/23 18:44: Urine Color Yellow, Urine Appearance Clear, Urine pH 5.5, Ur Specific [place] 1.020, Urine Protein Negative, Urine Glucose (UA) 3+, Urine Ketones Negative, Urine Blood 1+, Urine Nitrate Negative, Urine Bilirubin Negative, Urine Urobilinogen 0.2, Ur Leukocyte Esterase 1+ A, Urine RBC Occasional, Urine WBC Occasional, Ur Squamous Epith Cells 3-5, Calcium Oxalate Crystal Trace, Urine Bacteria Trace 06/22/23 06:23: WBC 4.1 L, RBC 2.99 L, Hgb 9.9 L, Hct 31.2 L, MCV 104.3 H, MCH 33.1 H, MCHC 31.7 L, RDW 14.6, Plt Count 234 D, MPV 8.1, Neut % (Auto) 54.2, Lymph % (Auto) 32.4, Leslie % (Auto) 10.3 H, Eos % (Auto) 2.5, Baso % (Auto) 0.6, Neut # (Auto) 2.2, Lymph # (Auto) 1.3, Leslie # (Auto) 0.4, Eos # (Auto) 0.1, Baso # (Auto) 0.0, Sodium 135 L, Potassium 4.6, Chloride 104, Carbon Dioxide 24, Anion Gap 11.6, BUN 39 H, Creatinine 1.90 H D, Estimated Creat Clear 42, Estimated GFR 26 L, Est GFR ( Amer) 31 L D, Glucose 132 H, Calcium 8.9 06/21/2023 CT cervical spine: FINDINGS: Bones: Straightening of the expected cervical lordosis. No acute fracture. Multilevel degenerative changes manifested as endplate osteophyte formation, facet arthropathy, uncovertebral hypertrophy and intervertebral disc height loss. Additionally, there is partial fusion posterior elements of C4 and C5 as well as C5 and C6. No severe spinal canal narrowing. No severe neural foraminal narrowing. Lungs: Lung apices are normal. Thyroid: The thyroid gland is normal. Soft tissues: Unremarkable. IMPRESSION: 1. No acute osseous abnormality of the cervical spine. 2. Other findings as above. 06/21/2023 CXR IMPRESSION: No acute findings. 06/21/[address] FINDINGS: Tubes, catheters and devices: Embolization coil adjacent to the base of the basilar artery. Brain: There is diffuse enlargement CSF containing spaces consistent with global parenchymal volume loss. No acute intracranial hemorrhage. No evidence of large acute territorial infarct or significant cerebral edema. No midline shift or significant mass effect. 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 Cerebral ventricles: No hydrocephalus. Paranasal sinuses: The paranasal sinuses are clear. Mastoid air cells: The mastoid air cells are clear. Orbital cavities: The orbits are unremarkable. Bones: No acute fracture. Soft tissues: The superficial soft tissues are normal. IMPRESSION: 1. No acute intracranial hemorrhage or large territorial infarct recommend correlation with history/physical exam and if clinical concern persists consider further evaluation with MRI. 2. Other findings as above. 06/21/[address] IMPRESSION: 1. Acute/subacute mild superior endplate compression deformity of L1. 2. Diffuse significant degenerative changes of the lumbar spine. 3. Other stable nonemergent findings as detailed. DS: Diagnosis Discharge Diagnosis (1) Bradycardia: Status: Acute Code(s): R00.1 - Bradycardia, unspecified (2) Closed compression fracture of lumbar vertebra: Status: Acute Code(s): S32.000A - Wedge compression fracture of unspecified lumbar vertebra, initial encounter for closed fracture (3) Fall: Status: Acute Code(s): W19.XXXA - Unspecified fall, initial encounter (4) Kidney dysfunction: Status: Acute Code(s): N28.9 - Disorder of kidney and ureter, unspecified (5) Blunt head trauma: Status: Acute Code(s): S09.8XXA - Other specified injuries of head, initial encounter (6) KLAUS (acute kidney injury): Status: Acute Code(s): N17.9 - Acute kidney failure, unspecified (7) Diabetes mellitus: Status: Chronic Code(s): E11.9 - Type 2 diabetes mellitus without complications Qualifiers: Diabetes mellitus complication status: with other specified complication Diabetes mellitus senior living 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 Diabetes mellitus type: type 2 Qualified Code(s): E11.69 - Type 2 diabetes mellitus with other specified complication (8) Hypotension: Status: Acute Code(s): I95.9 - Hypotension, unspecified (9) Stage 3b chronic kidney disease (CKD): Status: Acute Code(s): N18.32 - Chronic kidney disease, stage 3b Meds Home Medications and Allergies Home Medications Medication Instructions Recorded Confirmed Type clonazepam 1 mg tablet (Klonopin) 1 mg PO BIDP PRN Anxiety 09/12/18 06/21/23 History empagliflozin 12.5 mg-metformin ER 2 tab PO DAILY 06/23/21 06/21/23 History 1,000 mg tablet,extended rel 24 hr (Synjardy XR) sitagliptin phosphate 100 mg 100 mg PO DAILY 10/30/21 06/21/23 History tablet (Januvia) finerenone 20 mg tablet (Kerendia) 10 mg PO DAILY 09/14/22 06/21/23 History aspirin 81 mg tablet,delayed 81 mg PO DAILY 12/31/22 06/21/23 History release ferrous sulfate 325 mg (65 mg 325 mg PO TID 12/31/22 06/21/23 History iron) tablet,delayed release amitriptyline 25 mg tablet 25 mg PO HS 06/21/23 06/21/23 History carvedilol 12.5 mg tablet 12.5 mg PO BID 06/21/23 06/21/23 History fluticasone propionate 50 1 spray intranasal DAILY 06/21/23 06/21/23 History mcg/actuation nasal spray,suspension oxybutynin chloride 15 mg 15 mg PO DAILY 06/21/23 06/21/23 History tablet,extended release 24 hr pantoprazole 40 mg tablet,delayed 40 mg PO BID 06/21/23 06/21/23 History release rosuvastatin 10 mg tablet 10 mg PO HS 06/21/23 06/21/23 History vortioxetine 20 mg tablet 20 mg PO DAILY 06/21/23 06/21/23 History (Trintellix) tramadol 50 mg tablet 50 mg PO Q4H PRN pain #30 tabs 06/22/23 Rx New Prescriptions to Start Prescriptions: tramadol Chase Gunn Allergies Allergy/AdvReac Type Severity Reaction Status Date / Time No Known Drug Allergies Allergy Unknown Verified 04/26/23 10:45 Discharge Plan Disposition Patient Disposition: Home, Self-Care Condition: Fair Follow up Plan Follow up with: Chase Gunn MD [Primary Care Provider] - 06/29/23 11:30 am Prescriptions/Medication Reconciliation: New tramadol 50 mg tablet 50 mg PO Q4H PRN (Reason: pain) Qty: 30 0RF Continued Januvia 100 mg tablet 100 mg PO DAILY clonazepam [Klonopin] 1 mg tablet 1 mg PO BIDP PRN (Reason: Anxiety) Synjardy XR 12.5-1,000 mg tablet, IR - ER, biphasic 24hr 2 tab PO DAILY Kerendia 20 mg tablet 10 mg PO DAILY aspirin 81 mg Tablet,Delayed Release (Dr/Ec) 81 mg PO DAILY ferrous sulfate 325 mg (65 mg iron) Tablet,Delayed Release (Dr/Ec) 325 mg PO TID oxybutynin chloride 15 mg tablet extended release 24hr 15 mg PO DAILY pantoprazole 40 mg tablet,delayed release (DR/EC) 40 mg PO BID fluticasone propionate 50 mcg/actuation spray,suspension 1 spray INTRANASAL DAILY rosuvastatin 10 mg tablet 10 mg PO HS carvedilol 12.5 mg tablet 12.5 mg PO BID amitriptyline 25 mg tablet 25 mg PO HS Trintellix 20 mg tablet 20 mg PO DAILY Discontinued pioglitazone [Actos] 30 mg tablet 30 mg PO DAILY amlodipine 5 mg tablet 5 mg PO DAILY candesartan-hydrochlorothiazid 32-25 mg tablet 1 tab PO DAILY Problem Reconciliation Problems Reviewed?: Yes Patient Discharge Instructions ACTIVITY: Continue current activity DIET: continue same diet Patient Instructions: DI for Orthostatic Hypotension, How to Prevent Falls Providers Primary Care Provider: Chase Gunn Admit Provider: Chase Gunn Attending Provider: Chase Gunn
== END 2023-06-22 09:55 | disposition home or self-care (01) ==
LOC: ER 06-21 03:01 → 2ND 06-21 03:35
PROVIDERS: Admitting Provider Family Medicine; Emergency Provider Emergency Medicine; PCP Family Medicine; Visit Provider Family Medicine
DX: S32.010A Wedge compression fracture of first lumbar vertebra, initial encounter for closed fracture (principal); W01.0XXA Fall on same level from slipping, tripping and stumbling without subsequent striking against object, initial encounter; Y92.012 Bathroom of single-family (private) house as the place of occurrence of the external cause; R00.1 Bradycardia, unspecified; N28.9 Disorder of kidney and ureter, unspecified; S09.8XXA Other specified injuries of head, initial encounter; N17.9 Acute kidney failure, unspecified; E11.22 Type 2 diabetes mellitus with diabetic chronic kidney disease; I95.9 Hypotension, unspecified; N18.32 Chronic kidney disease, stage 3b; I12.9 Hypertensive chronic kidney disease with stage 1 through stage 4 chronic kidney disease, or unspecified chronic kidney disease; Z79.899 Other long term (current) drug therapy; I48.0 Paroxysmal atrial fibrillation
CPT/HCPCS: 36415; 70450; 71045; 72125; 72131; 80048; 80053; 81001; 82962; 84484; 85025; 87086; 87088; 87186; 93005; 97116; 97163; 97530; 99285; G0378

== ENCOUNTER 2023-06-29 12:09 | Outpatient (CLI) | payer MEDICARE, BC, SELFPAY ==
--- NOTE | 2023-06-29 12:15 | XR_ITS ---
FINAL REPORT CLINICAL HISTORY: COMPRESSION FX L1 COMPARISON: None FINDINGS: AP, lateral and oblique views of the lumbar spine were obtained. There is no prior exam for comparison. There is a 30% compression deformity of the superior endplate of L1, age-indeterminate. Hypertrophic changes are present most prominently at the L2-3 and L4-5 levels with moderate facet osteoarthropathy as well. A pelvic stimulator is present. No acute paraspinal abnormality. IMPRESSION: 30% compression deformity of the superior endplate of L1, age-indeterminate. Degenerative changes as described above. Reviewed, Interpreted and Dictated by Barrera Melchor MD Transcribed by Maricarmen Anthony Authenticated and . [facility]
== END 2023-06-29 23:59 | disposition home or self-care (01) ==
LOC: RAD 12:09
PROVIDERS: PCP Family Medicine; Visit Provider Family Medicine
DX: M54.50 Low back pain, unspecified (principal); S32.010D Wedge compression fracture of first lumbar vertebra, subsequent encounter for fracture with routine healing
CPT/HCPCS: 72110

== ENCOUNTER 2023-07-01 12:52 | Outpatient (POV) | payer MEDICARE, BC, SELFPAY ==
[2023-07-01 13:32] VITALS: BP 127/66; PULSE 77; RESP 18; O2SAT 94; BMI 33.4
--- NOTE | 2023-07-01 15:39 | EXP.PAIN.OV ---
HPI Data of Consult Patient: new to practice Consult date: 07/01/23 Requesting Physician: Stacey Mendoza APRN Primary Care Provider: Chase Gunn MD Consult Narrative Reason for consult: Low back pain, left lower abdomen pain History of present illness: Ms. Wray is a 72 year old female who presents today as a new patient. She is a referral from Dr. Gunn's office. Today she rates her pain as 10 out of 10. Patient states her pain is all all throughout her low back with radiating symptoms to her lower left abdomen. Patient does describe this as an aching, throbbing sensation with some numbness and tingling. Patient states that she has had low back issues for years however this pain started all when she fell on Mother's Day. Patient states that she ended up being admitted and had imaging done that did show a compression fracture. Patient does state the pain has continued to be constant and severe. Patient states that it does interfere with her ability perform activities of daily living such as cooking and cleaning. Patient was prescribed [place] and muscle relaxers in the ER and states this does help take the edge off however is still experiencing debilitating pain. She is interested in any help we may be able to provide. Patient does state that she sees an orthopedic provider and that he has done injections for her chronic low back pain and these do typically help. She is currently prescribed gabapentin, tramadol and clonazepam from her PCP. Her Bhavik has been reviewed and is appropriate. CC: Stacey Mendoza APRN [facility] Disclaimer: The information contained in this section may have been updated after the patient was seen, as this information can be updated by other users. Medical History (Updated 07/01/23 @ 15:43 by Stacey Mendoza APRN) Fall Blunt head trauma Anemia Stage 3b chronic kidney disease (CKD) History of respiratory syncytial virus (RSV) infection Cough syncope Respiratory syncytial virus (RSV) Paroxysmal A-fib Accelerated junctional rhythm Abnormal electrocardiogram [ECG] [EKG] Depression History of trigger finger History of cyst of breast Word finding difficulty Sciatica SVT (supraventricular tachycardia) Abnormal EKG Dyspnea Hx of mitral valve prolapse HLD (hyperlipidemia) HTN (hypertension) Diabetes mellitus Family history of heart disease Surgical History History of colonoscopy History of esophagogastroduodenoscopy (EGD) History of surgery History of carpal tunnel release History of hernia repair History of biopsy of temporal artery History of cholecystectomy Family History Other Family history of cardiac disorder Social History (Updated 07/01/23 @ 13:33 by Chanelle Palacios RN) Smoking Status: Never smoker alcohol intake: never substance use type: denies use current occupational status: retired Travel in the last 8 weeks: None household members: spouse and children housing: house caffeine: Yes Review of Systems Review of Systems Review of systems:: pertinent systems reviewed and negative unless documented below Review of systems (narrative): Review of Systems: General: No recent weight changes, no fever, no sleep disturbances Respiratory: No cough, no shortness of air, no recurring pulmonary infections Cardiovascular/peripheral vascular: No chest pain, no palpitations, no edema, no shortness of breath Gastrointestinal: No new onset incontinence, normal bowel movements reported Genitourinary: No new onset incontinence Musculoskeletal: Low back pain, left lower abdomen pain Psychiatric: [Normal mood/affect] Neurological: [Denies weakness in extremities], [denies balance issues] Meds Home Medications and Allergies Home Medications Medication Instructions Recorded Confirmed Type clonazepam 1 mg tablet (Klonopin) 1 mg PO BIDP PRN Anxiety 09/12/18 07/01/23 History empagliflozin 12.5 mg-metformin ER 2 tab PO DAILY 06/23/21 07/01/23 History 1,000 mg tablet,extended rel 24 hr (Synjardy XR) sitagliptin phosphate 100 mg 100 mg PO DAILY 10/30/21 07/01/23 History tablet (Januvia) finerenone 20 mg tablet (Kerendia) 10 mg PO DAILY 09/14/22 07/01/23 History aspirin 81 mg tablet,delayed 81 mg PO DAILY 12/31/22 07/01/23 History release ferrous sulfate 325 mg (65 mg 325 mg PO TID 12/31/22 07/01/23 History iron) tablet,delayed release amitriptyline 25 mg tablet 25 mg PO HS 06/21/23 07/01/23 History carvedilol 12.5 mg tablet 12.5 mg PO BID 06/21/23 07/01/23 History fluticasone propionate 50 1 spray intranasal DAILY 06/21/23 07/01/23 History mcg/actuation nasal spray,suspension oxybutynin chloride 15 mg 15 mg PO DAILY 06/21/23 07/01/23 History tablet,extended release 24 hr pantoprazole 40 mg tablet,delayed 40 mg PO BID 06/21/23 07/01/23 History release rosuvastatin 10 mg tablet 10 mg PO HS 06/21/23 07/01/23 History vortioxetine 20 mg tablet 20 mg PO DAILY 06/21/23 07/01/23 History (Trintellix) tramadol 50 mg tablet 50 mg PO Q4H PRN pain #30 tabs 06/22/23 07/01/23 Rx hydrocodone 7.5 mg-acetaminophen 1 tab PO Q6H PRN Pain 07/01/23 07/01/23 History 325 mg tablet New Prescriptions to Start Prescriptions: Allergies Allergy/AdvReac Type Severity Reaction Status Date / Time No Known Drug Allergies Allergy Unknown Verified 04/26/23 10:45 Objective Vital signs: Pulse Resp BP Pulse Ox O2 Del Method 77 18 127/66 94 L Room Air 07/01/23 13:32 07/01/23 13:32 07/01/23 13:32 07/01/23 13:32 07/01/23 13:32 Narrative: Physical Exam: General: Alert and oriented x3, no acute distress, pleasant and cooperative Lungs: Respirations even and unlabored, symmetrical chest expansion Eyes: PERRL Musculoskeletal: Flexion and extension of lumbar [spine] somewhat guarded secondary to pain, [antalgic gait noted] Neurological: Speech clear, no gross sensory deficit Additional findings Additional findings: FINDINGS: Bones/joints: The alignment of the lumbar spine is normal. There is severe degenerative disc disease from L2 through L4. There is severe facet arthropathy at L5-S1 left greater than right with moderate facet arthropathy from L2-L3 through L4-L5. There is subtle loss of height involving the superior endplate of L1 which is new since the study of 04/08/2023 consistent with a acute/subacute compression deformity. Diaphragm: A small hiatal hernia is present. Kidneys and ureters: 2.5 cm right renal cyst is noted. Soft tissues: Soft tissue lesion posterior to the uterus is again noted incompletely included on this study. IMPRESSION: 1. Acute/subacute mild superior endplate compression deformity of L1. 2. Diffuse significant degenerative changes of the lumbar spine. 3. Other stable nonemergent findings as detailed. COMMENTS: Consistent with the [place] [employer]'s Incidental Findings Committee white paper (J Am Tami Radiol 2018): Any incidental renal lesion less than 1 cm or classified as too small to characterize, or any incidental cystic renal lesion characterized as simple-appearing, is likely benign. No follow-up imaging is recommended for these lesions per consensus recommendations based on imaging criteria. L REPORT CLINICAL HISTORY: COMPRESSION FX L1 COMPARISON: None FINDINGS: AP, lateral and oblique views of the lumbar spine were obtained. There is no prior exam for comparison. There is a 30% compression deformity of the superior endplate of L1, age-indeterminate. Hypertrophic changes are present most prominently at the L2-3 and L4-5 levels with moderate facet osteoarthropathy as well. A pelvic stimulator is present. No acute paraspinal abnormality. IMPRESSION: 30% compression deformity of the superior endplate of L1, age-indeterminate. Degenerative changes as described above. Reviewed, Interpreted and Dictated by Barrera Melchor MD Transcribed by Maricarmen Anthony Authenticated and [facility] Assessment and Plan *Assessment and plan (1) Closed compression fracture of lumbar vertebra: Status: Acute Qualifiers: Encounter type: initial encounter Lumbar vertebra fracture level: L1 Qualified Code(s): S32.010A - Wedge compression fracture of first lumbar vertebra, initial encounter for closed fracture Category: Medical Code(s): S32.000A - Wedge compression fracture of unspecified lumbar vertebra, initial encounter for closed fracture (2) Degenerative disc disease, lumbar: Status: Acute Category: Medical Code(s): M51.36 - Other intervertebral disc degeneration, lumbar region Plan Patient is experiencing significant pain in her low back with radiating symptoms into her left lower abdomen. Patient did have limited range of motion of her lumbar spine and point tenderness in and around her upper lumbar spine. I have discussed with patient that she may be a beneficial candidate of a kyphoplasty procedure. Risk and benefits and educational handouts were given to the patient during today's visit. I have counseled the patient that this is only an option while the vertebra is still healing and shows edema. I have counseled the patient that I will order an MRI without contrast of her lumbar spine. Patient does have a bladder stimulator in place and states in the past she has not been able to get the advanced imaging here but has been able to do it in [place]. We will plan on sending her to the [place] [facility] for this imaging. I will also order a DEXA scan to be done to confirm osteoporosis. Patient was ordered and placed in a lumbar back brace here in our office to add support and stabilization around her compression site. I have recommended that she continue to take her pain medication and muscle relaxers as prescribed. Patient will return to clinic in 3 weeks for reevaluation of symptoms and plan of care. Patient's bladder stimulator is not compatible with MRI we will cancel this order out and change it to a CT without contrast due to altered kidney function and unable to tolerate increased risk. Patient has been instructed to contact the clinic with any concerns before the next appointment. Dr. Hatfield has reviewed this note and agrees with this plan of care. This note was dictated using voice recognition software and make contain errors or omissions.
--- NOTE | 2023-07-12 13:27 | PC.NURSE ---
pt called stating [facility] called after speaking with her bladder stimulator company. Stated pt is not able to have an MRI r/t stimulator. Notified provider, states pt will need to have a CT Lumbar spine without contrast r/t kidney function. Contacted scheduling department- appt for CT is July 14 at 3:30, also scheduled Dexa scan for pt as ordered per provider, appt August 09 at 9:30. Spoke with pt on the phone notified her of both appointments. Pt was agreeable to both times. Also notified pt not to use any calcium or vitamin D supplement 3 days prior to Dexa scan (as directed per scheduling dept), pt verbalized understanding.
== END 2023-07-01 23:59 | disposition home or self-care (01) ==
LOC: SC.PAIN 12:52
PROVIDERS: PCP Family Medicine; Visit Provider Nurse Practitioner Family
DX: S32.010A Wedge compression fracture of first lumbar vertebra, initial encounter for closed fracture (principal); M51.36 Other intervertebral disc degeneration, lumbar region
CPT/HCPCS: 99202; G0463

== ENCOUNTER 2023-08-10 11:37 | Outpatient (POV) | payer MEDICARE, BC, SELFPAY ==
[2023-08-10 11:54] VITALS: BP 162/82; PULSE 81; RESP 18; TEMP 36.5; O2SAT 97; BMI 31.2
--- NOTE | 2023-08-10 13:28 | EXP.PAIN.SOA ---
[facility] Disclaimer: The information contained in this section may have been updated after the patient was seen, as this information can be updated by other users. Medical History Fall Blunt head trauma Anemia Stage 3b chronic kidney disease (CKD) History of respiratory syncytial virus (RSV) infection Cough syncope Respiratory syncytial virus (RSV) Paroxysmal A-fib Accelerated junctional rhythm Abnormal electrocardiogram [ECG] [EKG] Depression History of trigger finger History of cyst of breast Word finding difficulty Sciatica SVT (supraventricular tachycardia) Abnormal EKG Dyspnea Hx of mitral valve prolapse HLD (hyperlipidemia) HTN (hypertension) Diabetes mellitus Family history of heart disease Surgical History History of colonoscopy History of esophagogastroduodenoscopy (EGD) History of surgery History of carpal tunnel release History of hernia repair History of biopsy of temporal artery History of cholecystectomy Family History Other Family history of cardiac disorder Social History Smoking Status: Never smoker alcohol intake: never substance use type: denies use current occupational status: disabled Travel in the last 8 weeks: None household members: spouse and children housing: house caffeine: Yes PM Subjective & Objective Subjective Subjective:: Patient is a very pleasant 72-year-old female comes our clinic today for follow-up visit after receiving kyphoplasty at the L3 vertebral body 3 weeks ago. She describes her low back pain as continuous as well as intermittent at times. She reports pain increases with flexion, extension, left or right rotation lumbar spine. She reports pain is slightly better than prior to kyphoplasty. She continues to receive lumbar injections at [facility] in [place]. She will be there tomorrow for further injection therapy. Pain at rest (0-10 scale): 6 Objective Objective:: Patient is awake alert [place] x 3. In no acute distress. Flexion-extension lumbar spine somewhat guarded secondary to pain. Deep tendon reflexes upper lower extremities normal. Motor strength upper lower EXTR is normal. There is no gross sensory deficit. Gait is antalgic. Patient requires a rollator for stability. Has patient had previous pain injection?: No Conservative treatment options previously tried: NSAIDS Length of treatment: 3 and None Meds Home Medications and Allergies Home Medications Medication Instructions Recorded Confirmed Type clonazepam 1 mg tablet (Klonopin) 1 mg PO BIDP PRN Anxiety 09/12/18 08/10/23 History empagliflozin 12.5 mg-metformin ER 2 tab PO DAILY 06/23/21 08/10/23 History 1,000 mg tablet,extended rel 24 hr (Synjardy XR) sitagliptin phosphate 100 mg 100 mg PO DAILY 10/30/21 08/10/23 History tablet (Januvia) finerenone 20 mg tablet (Kerendia) 10 mg PO DAILY 09/14/22 08/10/23 History aspirin 81 mg tablet,delayed 81 mg PO DAILY 12/31/22 08/10/23 History release ferrous sulfate 325 mg (65 mg 325 mg PO TID 12/31/22 08/10/23 History iron) tablet,delayed release amitriptyline 25 mg tablet 25 mg PO HS 06/21/23 08/10/23 History carvedilol 12.5 mg tablet 12.5 mg PO BID 06/21/23 08/10/23 History fluticasone propionate 50 1 spray intranasal DAILY 06/21/23 08/10/23 History mcg/actuation nasal spray,suspension oxybutynin chloride 15 mg 15 mg PO DAILY 06/21/23 08/10/23 History tablet,extended release 24 hr pantoprazole 40 mg tablet,delayed 40 mg PO BID 06/21/23 08/10/23 History release rosuvastatin 10 mg tablet 10 mg PO HS 06/21/23 08/10/23 History vortioxetine 20 mg tablet 20 mg PO DAILY 06/21/23 08/10/23 History (Trintellix) tramadol 50 mg tablet 50 mg PO Q4H PRN pain #30 tabs 06/22/23 08/10/23 Rx hydrocodone 7.5 mg-acetaminophen 1 tab PO Q6H PRN Pain 07/01/23 08/10/23 History 325 mg tablet New Prescriptions to Start Prescriptions: Allergies Allergy/AdvReac Type Severity Reaction Status Date / Time No Known Drug Allergies Allergy Unknown Verified 04/26/23 10:45 Assessment and Plan *Assessment and plan (1) Closed compression fracture of lumbar vertebra: Status: Acute Qualifiers: Encounter type: initial encounter Lumbar vertebra fracture level: L1 Qualified Code(s): S32.010A - Wedge compression fracture of first lumbar vertebra, initial encounter for closed fracture Category: Medical Code(s): S32.000A - Wedge compression fracture of unspecified lumbar vertebra, initial encounter for closed fracture Plan Patient will return to see us on an as-needed basis.
== END 2023-08-10 23:59 | disposition home or self-care (01) ==
PROVIDERS: PCP Family Medicine; Visit Provider Nurse Anesthetist, Certified Registered
DX: S32.010A Wedge compression fracture of first lumbar vertebra, initial encounter for closed fracture (principal); G89.29 Other chronic pain
CPT/HCPCS: 99212; G0463

== ENCOUNTER 2023-08-12 17:46 | Emergency (ER) | payer MEDICARE, BC, SELFPAY ==
[2023-08-12 17:45] VITALS: BP 131/89; PULSE 75; RESP 15; TEMP 36.9; O2SAT 96; BMI 27.2
--- NOTE | 2023-08-12 17:47 | HMH.EDGENADL ---
Discharge Plan Disposition Patient Disposition: Home, Self-Care Condition: Good Prescriptions Prescriptions: New methocarbamol 750 mg tablet 750 mg PO Q8H PRN (Reason: Headache muscle spasm) Qty: 14 0RF No Action Januvia 100 mg tablet 100 mg PO DAILY clonazepam [Klonopin] 1 mg tablet 1 mg PO BIDP PRN (Reason: Anxiety) Synjardy XR 12.5-1,000 mg tablet, IR - ER, biphasic 24hr 2 tab PO DAILY Kerendia 20 mg tablet 10 mg PO DAILY aspirin 81 mg Tablet,Delayed Release (Dr/Ec) 81 mg PO DAILY ferrous sulfate 325 mg (65 mg iron) Tablet,Delayed Release (Dr/Ec) 325 mg PO TID oxybutynin chloride 15 mg tablet extended release 24hr 15 mg PO DAILY pantoprazole 40 mg tablet,delayed release (DR/EC) 40 mg PO BID fluticasone propionate 50 mcg/actuation spray,suspension 1 spray INTRANASAL DAILY rosuvastatin 10 mg tablet 10 mg PO HS carvedilol 12.5 mg tablet 12.5 mg PO BID amitriptyline 25 mg tablet 25 mg PO HS Trintellix 20 mg tablet 20 mg PO DAILY tramadol 50 mg tablet 50 mg PO Q4H PRN (Reason: pain) Qty: 30 0RF hydrocodone-acetaminophen [Lortab 7.5-325] 7.5-325 mg Tablet 1 tab PO Q6H PRN (Reason: Pain) Referrals Follow up/Referrals: Chase Gunn MD [Primary Care Provider] - See instructions Activity Restrictions/Add. Instructions Additional Instructions/Restrictions: Follow-up with your PCP as needed for any worsening signs or symptoms. You may return to ER for same as needed. Clinical Impressions Clinical Impression: Headache Qualifiers: Headache type: unspecified Headache chronicity pattern: episodic headache Intractability: not intractable Qualified Code(s): R51.9 - Headache, unspecified Instructions Patient Instructions: DI for Headache Discharge ED Provider: Zev Krishnamurthy General Adult HPI <JORGE Norman - Last Filed: 08/12/23 21:02> General Chief complaint: Headache Stated complaint: headache Time Seen by Provider: 08/12/23 17:47 History of Present Illness HPI narrative: Patient presents for evaluation of a headache. Patient states that she has had 3 days of intermittent headache and today is the worst of 3. Patient states that it is right-sided with no neurosensory deficits. Patient denies are of photophobia phonophobia. Patient attempted to treat it today with a Percocet without relief. She denies chest pain shortness of breath fever chills hemoptysis hematochezia melena nausea vomiting diarrhea. Patient states her pain is 10 out of 10 currently. Related Data Home Medications Medication Instructions Recorded Confirmed clonazepam 1 mg tablet (Klonopin) 1 mg PO BIDP PRN Anxiety 09/12/18 08/10/23 empagliflozin 12.5 mg-metformin ER 2 tab PO DAILY 06/23/21 08/10/23 1,000 mg tablet,extended rel 24 hr (Synjardy XR) sitagliptin phosphate 100 mg 100 mg PO DAILY 10/30/21 08/10/23 tablet (Januvia) finerenone 20 mg tablet (Kerendia) 10 mg PO DAILY 09/14/22 08/10/23 aspirin 81 mg tablet,delayed 81 mg PO DAILY 12/31/22 08/10/23 release ferrous sulfate 325 mg (65 mg 325 mg PO TID 12/31/22 08/10/23 iron) tablet,delayed release amitriptyline 25 mg tablet 25 mg PO HS 06/21/23 08/10/23 carvedilol 12.5 mg tablet 12.5 mg PO BID 06/21/23 08/10/23 fluticasone propionate 50 1 spray intranasal DAILY 06/21/23 08/10/23 mcg/actuation nasal spray,suspension oxybutynin chloride 15 mg 15 mg PO DAILY 06/21/23 08/10/23 tablet,extended release 24 hr pantoprazole 40 mg tablet,delayed 40 mg PO BID 06/21/23 08/10/23 release rosuvastatin 10 mg tablet 10 mg PO HS 06/21/23 08/10/23 vortioxetine 20 mg tablet 20 mg PO DAILY 06/21/23 08/10/23 (Trintellix) hydrocodone 7.5 mg-acetaminophen 1 tab PO Q6H PRN Pain 07/01/23 08/10/23 325 mg tablet Previous Rx's Medication Instructions Recorded tramadol 50 mg tablet 50 mg PO Q4H PRN pain #30 tabs 06/22/23 methocarbamol 750 mg tablet 750 mg PO Q8H PRN Headache muscle 08/12/23 spasm #14 tabs Allergies Allergy/AdvReac Type Severity Reaction Status Date / Time No Known Drug Allergies Allergy Unknown Verified 04/26/23 10:45 [facility] <JORGE Norman - Last Filed: 08/12/23 21:02> [facility] Disclaimer: The information contained in this section may have been updated after the patient was seen, as this information can be updated by other users. Medical History (Updated 08/12/23 @ 20:12 by JORGE Norman) Fall Blunt head trauma Anemia Stage 3b chronic kidney disease (CKD) History of respiratory syncytial virus (RSV) infection Cough syncope Respiratory syncytial virus (RSV) Paroxysmal A-fib Accelerated junctional rhythm Abnormal electrocardiogram [ECG] [EKG] Depression History of trigger finger History of cyst of breast Word finding difficulty Sciatica SVT (supraventricular tachycardia) Abnormal EKG Dyspnea Hx of mitral valve prolapse HLD (hyperlipidemia) HTN (hypertension) Diabetes mellitus Family history of heart disease Surgical History History of colonoscopy History of esophagogastroduodenoscopy (EGD) History of surgery History of carpal tunnel release History of hernia repair History of biopsy of temporal artery History of cholecystectomy Family History Other Family history of cardiac disorder Social History Smoking Status: Never smoker alcohol intake: never substance use type: denies use current occupational status: disabled Travel in the last 8 weeks: None household members: spouse and children housing: house caffeine: Yes <JORGE Norman - Last Filed: 08/12/23 21:02> ROS Obtained: Yes Systems reviewed as appropriate & no additional complaints except as documented Physical Exam <JORGE Norman - Last Filed: 08/12/23 21:02> General General appearance: alert and in no apparent distress Head Head exam: atraumatic, normocephalic and normal inspection Eye Eye exam: Present normal appearance, PERRL and EOMI Neck Neck exam: Present normal inspection, full ROM and tenderness (Tender to palpation in the cervical trapezius on the right) Respiratory Respiratory exam: Present normal lung sounds bilaterally Cardiovascular Cardiovascular exam: Present regular rate and normal rhythm Extremities Exam Extremities exam: Present normal inspection and full ROM Back Exam Back exam: Present normal inspection, full ROM and tenderness (Tender to palpation over the trapezius muscles in both the cervical and thoracic portion) Neurological Exam Neurological exam: Present oriented X3 and CN II-XII intact Medical Decision Making <JORGE Norman - Last Filed: 08/12/23 21:02> Medical Records Medical records reviewed: Yes I reviewed the patient's medical records. Bhavik Inquiry Pt receiving controlled substance: No Vital Signs: 08/12/23 17:45 08/12/23 18:03 08/12/23 18:31 Temperature 98.5 F Temperature Source Oral Pulse Rate 82 69 Pulse Rate [Right] 75 Respiratory Rate 15 Blood Pressure 154/75 H 149/59 H Blood Pressure [Right Arm] 131/89 Blood Pressure Mean [Right Arm] 103 Blood Pressure Source Blood Pressure Position 02 Sat by Pulse Oximetry 96 95 93 L Oxygen Delivery Method Room Air Room Air 08/12/23 19:00 08/12/23 19:30 08/12/23 21:15 Temperature 98.5 F Temperature Source Oral Pulse Rate 70 68 77 Pulse Rate [Right] Respiratory Rate 20 17 Blood Pressure 151/55 H 157/57 H 148/57 H Blood Pressure [Right Arm] Blood Pressure Mean [Right Arm] Blood Pressure Source Automatic Cuff Blood Pressure Position Sitting 02 Sat by Pulse Oximetry 94 L 93 L Oxygen Delivery Method Room Air Room Air Room Air Lab Data Lab results reviewed: Yes I reviewed the patient's lab results. Orders (Tests/Meds): ED MEDICATIONS Discontinued Medications Generic Name Dose Route Start Last Admin Trade Name Khai PRN Reason Stop Dose Admin Acetaminophen 1,000 mg 08/12/23 17:48 08/12/23 18:12 Acetaminophen 1,000mg/100ml Vial IV 08/12/23 17:49 1,000 mg ONCE ONE Administration Dexamethasone Sodium Phosphate 10 mg 08/12/23 17:48 08/12/23 18:11 Dexamethasone 4mg/Ml 5ml Mdv IV 08/12/23 17:49 10 mg ONCE ONE Administration Diphenhydramine HCl 50 mg 08/12/23 17:48 08/12/23 18:11 Diphenhydramine 50mg/Ml Vial IV 08/12/23 17:49 50 mg ONCE ONE Administration Lactated Ringer's 1,000 mls @ 999 mls/hr 08/12/23 17:48 08/12/23 18:12 Lactated Ringer's 1000 Ml Bag IV 08/12/23 18:48 999 mls/hr .Q1H1M ONE Administration Methocarbamol 500 mg 08/12/23 17:48 08/12/23 18:11 Methocarbamol 500mg Tablet PO 08/12/23 17:49 500 mg ONCE ONE Administration Prochlorperazine Edisylate 10 mg 08/12/23 17:48 08/12/23 18:11 Prochlorperazine 10mg/2ml Vial IV 08/12/23 17:49 10 mg ONCE ONE Administration ORDERS Category Date Time Status CT head/brain wo con Stat Cat Scan 08/12/23 19:02 Completed Medical Decision Narrative: In summary patient is a 72-year-old female who presents to the emergency department for evaluation of headache. Patient is hemodynamically stable upon arrival, afebrile with a Davenport Coma Score 15. Physical exam is remarkable for tenderness to palpation over the right trapezius muscle without any bony deformity contusions or abrasions no focal neurologic deficits.. Differential diagnosis includes muscle spasm versus tension headache versus muscle strain. Initial workup was considered including laboratory work and imaging however as patient is nontoxic nonfocal with a normal neurologic workup that is currently deferred after conferring with Dr. Krishnamurthy. Initial interventions include headache cocktail which includes crystalloid bolus Toradol Tylenol Decadron Compazine and Benadryl and Robaxin. Upon repeat evaluation patient reports 0% improvement in her headache but Augusto Coma Score is still 15 with no focal neurologic deficits thus we will order a CT scan of the head without contrast. My informal interpretation of the CT scan shows no acute intracranial process. Patient still reports her pain is 8 out of 10 but no significant source of her discomfort. Given this we have essentially ruled out any serious or life-threatening problem may be the source of her headache and thus patient is appropriate for discharge with prescription for Robaxin. <Zev Krishnamurthy MD - Last Filed: 08/12/23 21:34> Vital Signs: 08/12/23 17:45 08/12/23 18:03 08/12/23 18:31 Temperature 98.5 F Temperature Source Oral Pulse Rate 82 69 Pulse Rate [Right] 75 Respiratory Rate 15 Blood Pressure 154/75 H 149/59 H Blood Pressure [Right Arm] 131/89 Blood Pressure Mean [Right Arm] 103 Blood Pressure Source Blood Pressure Position 02 Sat by Pulse Oximetry 96 95 93 L Oxygen Delivery Method Room Air Room Air 08/12/23 19:00 08/12/23 19:30 08/12/23 21:15 Temperature 98.5 F Temperature Source Oral Pulse Rate 70 68 77 Pulse Rate [Right] Respiratory Rate 20 17 Blood Pressure 151/55 H 157/57 H 148/57 H Blood Pressure [Right Arm] Blood Pressure Mean [Right Arm] Blood Pressure Source Automatic Cuff Blood Pressure Position Sitting 02 Sat by Pulse Oximetry 94 L 93 L Oxygen Delivery Method Room Air Room Air Room Air Orders (Tests/Meds): ED MEDICATIONS Discontinued Medications Generic Name Dose Route Start Last Admin Trade Name Freq PRN Reason Stop Dose Admin Acetaminophen 1,000 mg 08/12/23 17:48 08/12/23 18:12 Acetaminophen 1,000mg/100ml Vial IV 08/12/23 17:49 1,000 mg ONCE ONE Administration Dexamethasone Sodium Phosphate 10 mg 08/12/23 17:48 08/12/23 18:11 Dexamethasone 4mg/Ml 5ml Mdv IV 08/12/23 17:49 10 mg ONCE ONE Administration Diphenhydramine HCl 50 mg 08/12/23 17:48 08/12/23 18:11 Diphenhydramine 50mg/Ml Vial IV 08/12/23 17:49 50 mg ONCE ONE Administration Lactated Ringer's 1,000 mls @ 999 mls/hr 08/12/23 17:48 08/12/23 18:12 Lactated Ringer's 1000 Ml Bag IV 08/12/23 18:48 999 mls/hr .Q1H1M ONE Administration Methocarbamol 500 mg 08/12/23 17:48 08/12/23 18:11 Methocarbamol 500mg Tablet PO 08/12/23 17:49 500 mg ONCE ONE Administration Prochlorperazine Edisylate 10 mg 08/12/23 17:48 08/12/23 18:11 Prochlorperazine 10mg/2ml Vial IV 08/12/23 17:49 10 mg ONCE ONE Administration ORDERS Category Date Time Status CT head/brain wo con Stat Cat Scan 08/12/23 19:02 Completed Medical Decision Narrative: In summary patient is a 72-year-old female who presents to the emergency department for evaluation of headache. Patient is hemodynamically stable upon arrival, afebrile with a Augusto Coma Score 15. Physical exam is remarkable for tenderness to palpation over the right trapezius muscle without any bony deformity contusions or abrasions no focal neurologic deficits.. Differential diagnosis includes muscle spasm versus tension headache versus muscle strain. Initial workup was considered including laboratory work and imaging however as patient is nontoxic nonfocal with a normal neurologic workup that is currently deferred after conferring with Dr. Krishnamurthy. Initial interventions include headache cocktail which includes crystalloid bolus Toradol Tylenol Decadron Compazine and Benadryl and Robaxin. Upon repeat evaluation patient reports 0% improvement in her headache but Augusto Coma Score is still 15 with no focal neurologic deficits thus we will order a CT scan of the head without contrast. My informal interpretation of the CT scan shows no acute intracranial process. Patient still reports her pain is 8 out of 10 but no significant source of her discomfort. Given this we have essentially ruled out any serious or life-threatening problem may be the source of her headache and thus patient is appropriate for discharge with prescription for Robaxin. I was consulted by the JANELL, and we discussed the complexity of the problems being addressed. I approved the treatment and management plan for this patient?s care in the Emergency Department, thus performing a substantive portion of the medical decision making. Zev Krishnamurthy MD Critical Care <JORGE Norman - Last Filed: 08/12/23 21:02> Critical Care Time Critical Care Time: No
[2023-08-12 18:03] VITALS: BP 154/75; PULSE 82; O2SAT 95
[2023-08-12] MEDS: diphenhydrAMINE 50MG/ML VIAL 50 MG IV (18:11)
[2023-08-12] MEDS: DEXAMETHASONE 4MG/ML 5ML MDV 10 MG IV (18:11)
[2023-08-12] MEDS: PROCHLORPERAZINE 10MG/2ML VIAL 10 MG IV (18:11)
[2023-08-12] MEDS: METHOCARBAMOL 500MG TABLET 500 MG PO (18:11)
[2023-08-12] MEDS: ACETAMINOPHEN 1,000MG/100ML VIAL 1000 MG IV (18:12)
[2023-08-12] MEDS: LACTATED RINGERS 1000ML 1,000 ML 999 ML IV (18:12)
[2023-08-12 18:31] VITALS: BP 149/59; PULSE 69; O2SAT 93
[2023-08-12 19:00] VITALS: BP 151/55; PULSE 70; O2SAT 94
--- NOTE | 2023-08-12 19:02 | CT_ITS ---
PROCEDURE INFORMATION: Exam: CT Head Without Contrast Exam date and time: 08/12/2023 8:01 PM Age: 72 years old Clinical indication: Pain; Headache TECHNIQUE: Imaging protocol: Computed tomography of the head without contrast. Total images: 270 Radiation optimization: All CT scans at this facility use at least one of these dose optimization techniques: automated exposure control; mA and/or kV adjustment per patient size (includes targeted exams where dose is matched to clinical indication); or iterative reconstruction. COMPARISON: CT HEAD/BRAIN WO CON 06/21/2023 1:28 AM FINDINGS: Brain: No acute intracranial hemorrhage, midline shift, or mass. Mild cortical atrophy. Moderate periventricular and subcortical white matter hypodensity compatible with remote small vessel ischemic changes. Avery-white interface and basilar cisterns are preserved. Remote deep white matter ischemic changes bilateral internal capsules and left external capsule. Remote lacunar infarct versus prominent CSF fluid space inferior right basal ganglia. Remote lacunar infarct right cerebellar hemisphere. Cerebral ventricles: No ventriculomegaly. Paranasal sinuses: Visualized sinuses are unremarkable. No fluid levels. Mastoid air cells: Visualized mastoid air cells are well aerated. Bones: Unremarkable. No acute fracture. Soft tissues: Unremarkable. Vasculature: Coil/clip artifact near the basilar artery. Moderate calcifications bilateral intracranial internal carotid arteries. IMPRESSION: 1. No acute intracranial process. 2. No significant change from June 21, 2023.
[2023-08-12 19:30] VITALS: BP 157/57; PULSE 68; RESP 20; O2SAT 93
--- NOTE | 2023-08-12 19:35 | PC.NURSE ---
rounded on pt at this time. pt voices no needs. S/O at bedside.
--- NOTE | 2023-08-12 21:01 | PC.NURSE ---
rounded on pt at this time. pt reports headache has improved but is 09/17. Iris Sebastian notified
[2023-08-12 21:15] VITALS: BP 148/57; PULSE 77; RESP 17; TEMP 36.9; O2SAT 92
== END 2023-08-12 21:17 | disposition home or self-care (01) ==
PROVIDERS: Emergency Provider Emergency Medicine; PCP Family Medicine
DX: R51.9 Headache, unspecified (principal); M54.2 Cervicalgia; M54.6 Pain in thoracic spine
CPT/HCPCS: 70450; 96361; 96374; 96375; 99284; J0131; J7120

== ENCOUNTER 2023-08-23 08:43 | Outpatient (CLI) | payer MEDICARE, BC, SELFPAY ==
--- NOTE | 2023-08-23 08:52 | XR_ITS ---
FINAL REPORT TECHNIQUE: Bone densitometry calculations of the lumbar spine and left hip were obtained. CLINICAL HISTORY: SCREENING COMPARISON: 06/13/2020 FINDINGS: Using L2-5, the bone mineral density of the spine is 1.258 g/cm2, corresponding to T-score of 1.6 and a Z score of 3.9. This is within the range of normal. Previously was 1.225 with T-score of 1.6 and Z-score of 3.7. Using the left hip, the bone mineral density of the femoral neck is 0.724 g/cm2, corresponding to a T-score of -1.1 and a Z-score of 0.8. This is within the range of osteopenia. Previously was 0.743 with T-score of -1.0 and Z-score of 0.8. FRAX 10 year fracture risk is 1.7% for a hip fracture and 14% for a major osteoporotic fracture. NOTE: T-score: Standard deviation compared with peak bone mass of young adult mean. *Following the recommendations of the International Society of Bone densitometry, classification of hip BMD is based on the lower of two T-scores; total hip or femoral neck. IMPRESSION: 1. Bone mineral density of the lumbar spine within the range of normal. 2. Bone mineral density of the left femoral neck within the range of osteopenia. Reviewed, Interpreted and Dictated by Montse Guillaume MD Transcribed by Paige Campa Authenticated and . [facility]
--- NOTE | 2023-08-23 08:53 | FL_ITS ---
FINAL REPORT CLINICAL HISTORY: OSTEPOROSIS;PHARYNGEAL DYSPHAGIA 3.01 fluoro time 17.62 mgy FINDINGS: MODIFIED BARIUM SWALLOW History: Dysphagia FINDINGS: Fluoroscopy was provided for the speech pathologist to evaluate the swallowing mechanism. The patient was given several different consistencies of barium while the swallow was visualized fluoroscopically. The report of the speech pathologist should be consulted prior to making dietary decisions. Fluoroscopy time: 3 minutes 1 second Radiation exposure in Reference air Kerma: 17.62 mGy IMPRESSION: Modified barium swallow under fluoroscopic guidance. Please see the report of the speech pathologist for Dietary recommendations. Films reviewed , interpreted and dictated by Dr. Hung Transcribed by Jeff Hudson PA-C. Reviewed, Interpreted and Dictated by Serge Hung III, MD Transcribed by JORGE Ward Authenticated and [facility]
--- NOTE | 2023-08-23 12:30 | HMH.SLMBS2 ---
Speech & Language Evaluation Speech/Language Mod Barium Swallow Start: 08/23/23 12:11 Freq: once Status: Complete Protocol: Document 08/23/23 12:11 [facility] (Rec: 08/23/23 12:30 [facility] Laptop) Co-signed By ST Neel General Information General Current Food Consistancy Regular,Thin Liquids Dentition Good Dentition Oxygen Status Room Air Facial Symmetry Symmetrical Patient Orientation Person,Place,Time,Situation Ability to Follow Directions Excellent Communication Ability No Impairment MBS Recommendations Diet Dietary Recommendations Regular,Thin Liquids Treatment/Strategies Strategy/Precaution Recommend Sitting Upright (90 deg), Double Swallow,Small Bites and Sips,Alternate Liquids/Solids Referrals/Other Recommended Referrals GI Consult Other Recommendations c/o globus sensation and difficulty with meats sticking Mod Barium Swallow Impressions Summary and Impressions Oral Phase Impression Minimal Impairment Oral Phase Summary Minimal impairment of the oral phase of swallow. Pt exhibited mild lingual residue , which was cleared independently by a double swallow. Pt exhibited adequate mastication and bolus manipulation for mechanical soft and regular food. No anterior loss was observed on any trial. Minimal tongue pumping observed on all consistencies trialed. Pharyngeal Phase Impression Minimal Impairment Pharyngeal Phase Summary Minimal impairment of the pharyngeal phase of swallow. No aspiration or penetration present during study. Pt's hyolaryngeal excursion and elevation, base of tongue retraction, and epiglottic inversion all were observed to be WFL. Minimal vallecular and posterior pharyngeal wall residue was exhibited on pudding, puree, mechanical soft, and regular food trials, and was cleared independently by a double swallow. Speech/Language MBS Assessment/Goals/Plan Assessment Date of Evaluation:
== END 2023-08-23 23:59 | disposition home or self-care (01) ==
LOC: RAD 08:44
PROVIDERS: PCP Family Medicine; Visit Provider Nurse Practitioner Family
DX: M54.50 Low back pain, unspecified (principal); S32.000A Wedge compression fracture of unspecified lumbar vertebra, initial encounter for closed fracture; R13.13 Dysphagia, pharyngeal phase
CPT/HCPCS: 70371; 77080; 92611

== ENCOUNTER 2023-09-08 10:12 | Outpatient (POV) | payer MEDICARE, BC, SELFPAY ==
--- OUTSIDE RECORDS SUMMARY | 2023-09-08 10:15 | XMS_ITS ---
Author [facility] [facility] [address] [id number] Care Team Providers Care Tenoner Operator Name Role Phone Luis A Chase Primary Care Provider ALLERGIES Allergen (clinical drug ingredient) Drug/Non Drug Allergy documented on EMR Reaction Allergy Type Onset Date Status promethazine Promethazine sore mouth Drug Allergy Active REASON FOR VISIT blood pressure high MEDICATIONS Medication SIG (Take, Route, Frequency, Duration) Notes Start Date End Date Status Carvedilol 25 MG 1 tablet with food Orally Twice a day for 90 days 09/03/2023 Active Irbesartan 150 MG 1 tablet Orally Once a day for 90 days 09/03/2023 Active oxyBUTYnin Chloride ER 15 MG 1 tablet Or ally Once a day for 30 day(s) Active Aspirin 81 MG 1 tablet Orally Once a day for 30 day(s) Active FeroSul 325 (65 Fe) MG TAKE 1 TABLET BY MOUTH THREE TIMES DAILY for 30 days Active Pantoprazole Sodium 40 MG 1 tablet Orall y Two times a day for 90 days Active clonazePAM 1 MG 1 tab(s) orally 2 ti mes a day as needed 08/20/2023 Active oxyCODONE-Acetaminophen 10-325 MG 1 tablet as needed Orally every 6 hrs 07/13/2023 Active tiZANidine HCl 2 MG 1 tablet as needed Orally two times a day as needed 06/25/2023 Active Gabapentin 300 MG 1 capsule Orally Two times a day for 30 day(s) 06/25/2023 Active Kerendia 10 MG 1 tablet Orally Once a day for 90 days 06/29/2023 Active guanFACINE HCl 1 MG 1 tablet at bedtime Orally Once a day for 90 days Active Fluticasone Propionate 50 MCG/ACT 1 spray in each nostril Nasally Once a day for 30 day(s) 06/03/2023 Active Amitriptyline HCl 25 MG 1 tab(s) orally once a day (at bedtime) for 30 days Active Trintellix 20 MG 1 tab(s) orally once a day for 30 days Active Januvia 100 MG 1 tab(s) orally once a day for 30 days Active Synjardy XR 12.5-1000 MG 2 TABLETS WITH BREAKFAST ORALLY ONCE A DAY 30 DAYS for 30 Active Calcium 600 + Minerals 600-200 MG-UNIT 1 tab(s) orally 3 times a day for 30 day(s) Active Crestor 10 MG 1 tab(s) orally once a day (at bedtime) for 30 days Active Multivitamin - 1 tab(s) orally once a day for 30 day(s) Active VITAL SIGNS Weight 190.8 lbs 09/03/2023 Blood pressure systolic 190 mm Hg 09/03/19 24 Blood pressure diastolic 78 mm Hg 024 Heart Rate 96 /min 09/03/2023 Height 66.25 in 09/03/2023 BMI 30.56 kg/m2 09/03/2023 Encounters Encounter Location Date Provider Diagnosis [facility] [address] [facility] 36 [facility] [address] [place] [id number] 09/03/2023 Chase Gunn Essential hypertensi on I10 ASSESSMENTS Encounter Date Diagnosis Assessment Notes Treatment Notes Treatment Clinical Notes 09/03/2023 Essential hypertension (ICD-10 - I10) Not at goal today PLAN OF TREATMENT Medication Medication Name Sig Start Date Stop Date Notes Carvedilol 12.5 MG 1 tablet with food Orally Twice a day Carvedilol 25 MG 1 tablet with food O rally Twice a day for 90 days 09/03/2023 Irbesartan 150 MG 1 tablet Orally Once a day for 90 days 0 09/03/2023 Treatment Notes Assessment Notes Essential hypertension Not at goal today Next Appt Details Follow Up: 3 Weeks, Reason: Provider Name:Chase gamez, 09/24/2023 10:15:00 AM, [address] [facility], [address], [place], [id number], Provider Name:Chase Trujillo franco, 11/24/2023 10:00:00 AM, [address], [address], [place], [place], [phone], Progress Notes * Examination Category Sub-Category Detail Notes Cardiology Lungs: clear, no rales or wheezes Heart sounds: RRR, normal S1, S2 General Appearance: pleasant, NAD History and Physical Notes * HPI (History of Present Illness) Category Sub-Category Detail Notes Cardiology Blood Pressure Elevated Pt compl ains of bp being elevated for about 3 weeks. States she has had a constant headache and is concerned. BP ranging from 151-198/62-94
--- OUTSIDE RECORDS SUMMARY | 2023-09-08 10:15 | XMS_ITS ---
Author Organization [facility] Address [address] [facility] 36 [facility] [address] [place] [id number] Care Team Providers Care Purchasing Clerk Name Role Phone Chase Gunn Primary Care Provider REASON FOR VISIT PA approved Encounters Encounter Location Date Provider Diagnosis [facility] [address] [facility] [address] [place] [phone] 08/25/2023 Chase Gunn PLAN OF TREATMENT Next Appt Details Provider Name:Chase gamez, 09/24/2023 10:15:00 AM, [address], [address], [place], [phone], Provider Name:Chase gamez, 11/24/2023 10:00:00 AM, [address], [address], [place], [phone],
--- OUTSIDE RECORDS SUMMARY | 2023-09-08 10:15 | XMS_ITS ---
[facility] Address [facility] [address] [phone] Care Team Providers Care Coffee Maker Name Role Phone Chase Gunn Primary Care Provider [phone] ALLERGIES Allergen (clinical drug ingredient) Drug/Non Drug Allergy documented on EMR Reaction Allergy Type Onset Date Status promethazine Promethazine sore mouth Drug Allergy Active RESULTS Component Value Reference Range Notes Urinalysis - Inhouse Reviewed date:08/24/2023 11:32:58 AM Interpretation: Performing Lab: Notes/Report: Color/Clarity yellow/clear Leuk 1+ Nitrite neg Urobili 3.2 Protein neg pH 5.5 Blood trace-intact Sp. Gr. 1.010 Ketone neg Bili neg Gluc 2+ bacteria WBC RBC Glucose (In-House) Reviewed date:08/24/2023 11:33:07 AM Interpretation: Performing Lab: Notes/Report: blood glucose 218 74 - 106 mg/dL Glycohemoglobin A1c (in hous e) Reviewed date:08/24/2023 11:33:16 AM Interpretation: Performing Lab: Notes/Report: glycohemoglobin 7.0% 5 - 6.5 % TEN-UTI panel Reviewed date:08/26/2023 10:53:47 AM Interpretation:sensitive Performing Lab: Notes/Report: sensitive REASON FOR VISIT possible yeast infection MEDICATIONS Medication SIG (Take, Route, Frequency, Duration) Notes Start Date End Date Status clonazePAM 1 MG 1 tab(s) orally 2 ti mes a day as needed 08/20/2023 Active Pantoprazole Sodium 40 MG 1 tablet Orall y Two times a day for 90 days Active FeroSul 325 (65 Fe) MG TAKE 1 TABLET BY MOUTH THREE TIMES DAILY for 30 days Active oxyCODONE-Acetaminophen 10-325 MG 1 tablet as needed Orally every 6 hrs 07/13/2023 Active Kerendia 10 MG 1 tablet Orally Once a day for 90 days 06/29/2023 Active Gabapentin 300 MG 1 capsule Orally Two times a day for 30 day(s) 06/25/2023 Active tiZANidine HCl 2 MG 1 tablet as needed Orally two times a day as needed 06/25/2023 Active guanFACINE HCl 1 MG 1 tablet at bedtime Orally Once a day for 90 days Active Synjardy XR 12.5-1000 MG 2 TABLETS WITH BREAKFAST ORALLY ONCE A DAY 30 DAYS for 30 Active Januvia 100 MG 1 tab(s) orally once a day for 30 days Active Trintellix 20 MG 1 tab(s) orally once a day for 30 days Active Amitriptyline HCl 25 MG 1 tab(s) orally once a day (at bedtime) for 30 days Active Fluticasone Propionate 50 MCG/ACT 1 spray in each nostril Nasally Once a day for 30 day(s) 06/03/2023 Active Crestor 10 MG 1 tab(s) orally once a day (at bedtime) for 30 days Active Calcium 600 + Minerals 600-200 MG-UNIT 1 tab(s) orally 3 times a day for 30 day(s) Active Multivitamin - 1 tab(s) orally once a day for 30 day(s) Active Diflucan 150 MG 1 tablet Orally once daily 08/24/2023 Active Carvedilol 12.5 MG 1 tablet with food Orally Twice a day for 30 day(s) Active Aspirin 81 MG 1 tablet Orally Once a day for 30 day(s) Active oxyBUTYnin Chloride ER 15 MG 1 tablet Or ally Once a day for 30 day(s) Active Macrobid 100 MG 1 capsule with food Orally every 12 hrs for 5 day(s) 08/24/2023 Active VITAL SIGNS Weight 192.2 lbs 08/24/2023 Blood pressure systolic 132 mm Hg 08/24/19 24 Blood pressure diastolic 80 mm Hg 024 Heart Rate 111 /min 08/24/2023 Height 66.25 in 08/24/2023 BMI 30.78 kg/m2 08/24/2023 Encounters Encounter Location Date Provider Diagnosis [facility] [address] [facility] 36 [facility] [address] [place] [phone] 08/24/2023 Chase Gunn Dysuria R30.0 ; Acut e UTI N39.0 and Type 2 diabetes mellitus without complication E11.9 ASSESSMENTS Encounter Date Diagnosis Assessment Notes Treatment Notes Treatment Clinical Notes 08/24/2023 Dysuria (ICD-10 - R30.0) 08/24/2023 Acute UTI (ICD-10 - N39.0) 08/24/2023 Type 2 diabetes mellitus without complication (ICD-10 - E11.9) PLAN OF TREATMENT Medication Medication Name Sig Start Date Stop Date Notes Diflucan 150 MG 1 tablet Orally once daily 08/24/2023 Macrobid 100 MG 1 capsule with food Orally every 12 hrs for 5 day(s) 08/24/2023 Next Appt Details Follow Up: as scheduled,and prn, Reason: Provider Name:Chase Trujillo franco, 09/24/2023 10:15:00 AM, [address], [address], [place], [phone], Provider Name:Chase Trujillo franco, 11/24/2023 10:00:00 AM, [address] [facility] [address], [place], [phone], History and Physical Notes * HPI (History of Present Illness) Category Sub-Category Detail Notes Urology burning sensation Pt complains o f burning with urination for about a month. States she also has some vaginal itching and states that itching is really bad
[2023-09-08 11:35] VITALS: BP 186/81; PULSE 78; RESP 18; O2SAT 94; BMI 31.6
--- NOTE | 2023-09-08 12:37 | A.OFFVIS_ITS ---
[facility] Disclaimer: The information contained in this section may have been updated after the patient was seen, as this information can be updated by other users. Medical History (Updated 09/08/23 @ 12:40 by Stacey Mendoza APRN) Fall Blunt head trauma Anemia Stage 3b chronic kidney disease (CKD) History of respiratory syncytial virus (RSV) infection Cough syncope Respiratory syncytial virus (RSV) Paroxysmal A-fib Accelerated junctional rhythm Abnormal electrocardiogram [ECG] [EKG] Depression History of trigger finger History of cyst of breast Word finding difficulty Sciatica SVT (supraventricular tachycardia) Abnormal EKG Dyspnea Hx of mitral valve prolapse HLD (hyperlipidemia) HTN (hypertension) Diabetes mellitus Family history of heart disease Surgical History History of colonoscopy History of esophagogastroduodenoscopy (EGD) History of surgery History of carpal tunnel release History of hernia repair History of biopsy of temporal artery History of cholecystectomy Family History Other Family history of cardiac disorder Social History Smoking Status: Never smoker alcohol intake: never substance use type: denies use current occupational status: retired Travel in the last 8 weeks: None household members: spouse and children housing: house caffeine: Yes PM Subjective & Objective Subjective Subjective:: Patient is a pleasant 72-year-old female who presents today for follow-up of her DEXA scan results. She rates her pain today a 9 out of 10. She denies any new trauma or injury. She states she can have all across her low back and denies any radiating symptoms into her legs. Patient does state that this is fairly constant and does interfere with her ability perform ADLs. Patient was also sent for a CT of her lumbar spine however she states that she had an outside provider order an MRI and that she is only able to get this done at . She states that that is coming up here soon. Her Bhavik has been reviewed. Review of Systems: General: No recent weight changes, no fever, no sleep disturbances Respiratory: No cough, no shortness of air, no recurring pulmonary infections Cardiovascular/peripheral vascular: No chest pain, no palpitations, no edema, no shortness of breath Gastrointestinal: No new onset incontinence, normal bowel movements reported Genitourinary: No new onset incontinence Musculoskeletal: Low back pain Psychiatric: [Normal mood/affect] Neurological: [Denies weakness in extremities], [denies balance issues] Pain at rest (0-10 scale): 9 Objective Objective:: Physical Exam: General: Alert and oriented x3, no acute distress, pleasant and cooperative Lungs: Respirations even and unlabored, symmetrical chest expansion Eyes: PERRL Musculoskeletal: Flexion and extension of lumbar [spine] somewhat guarded secondary to pain, [antalgic gait noted] Neurological: Speech clear, no gross sensory deficit Has patient had previous pain injection?: No Conservative treatment options previously tried: Home exercise plan Length of treatment: Longer than 6 weeks Meds Home Medications and Allergies Home Medications ?Medication ?Instructions ?Recorded ?Confirmed ?Type clonazepam 1 mg tablet (Klonopin) 1 mg PO BIDP PRN Anxiety 09/12/18 09/08/23 History empagliflozin 12.5 mg-metformin ER 2 tab PO DAILY 06/23/21 09/08/23 History 1,000 mg tablet,extended rel 24 hr (Synjardy XR) sitagliptin phosphate 100 mg 100 mg PO DAILY 10/30/21 09/08/23 History tablet (Januvia) finerenone 20 mg tablet (Kerendia) 10 mg PO DAILY 09/14/22 09/08/23 History aspirin 81 mg tablet,delayed 81 mg PO DAILY 12/31/22 09/08/23 History release ferrous sulfate 325 mg (65 mg 325 mg PO TID 12/31/22 09/08/23 History iron) tablet,delayed release amitriptyline 25 mg tablet 25 mg PO HS 06/21/23 09/08/23 History carvedilol 12.5 mg tablet 12.5 mg PO BID 06/21/23 09/08/23 History fluticasone propionate 50 1 spray intranasal DAILY 06/21/23 09/08/23 History mcg/actuation nasal spray,suspension oxybutynin chloride 15 mg 15 mg PO DAILY 06/21/23 09/08/23 History tablet,extended release 24 hr pantoprazole 40 mg tablet,delayed 40 mg PO BID 06/21/23 09/08/23 History release rosuvastatin 10 mg tablet 10 mg PO HS 06/21/23 09/08/23 History vortioxetine 20 mg tablet 20 mg PO DAILY 06/21/23 09/08/23 History (Trintellix) tramadol 50 mg tablet 50 mg PO Q4H PRN pain #30 tabs 06/22/23 09/08/23 Rx hydrocodone 7.5 mg-acetaminophen 1 tab PO Q6H PRN Pain 07/01/23 09/08/23 History 325 mg tablet methocarbamol 750 mg tablet 750 mg PO Q8H PRN Headache muscle 08/12/23 09/08/23 Rx spasm #14 tabs New Prescriptions to Start Prescriptions: Allergies Allergy/AdvReac Type Severity Reaction Status Date / Time No Known Drug Allergies Allergy Unknown Verified 04/26/23 10:45 Assessment and Plan *Assessment and plan (1) Lumbar facet arthropathy: Status: Acute Category: Medical Code(s): M47.816 - Spondylosis without myelopathy or radiculopathy, lumbar region (2) Degenerative disc disease, lumbar: Status: Acute Category: Medical Code(s): M51.36 - Other intervertebral disc degeneration, lumbar region (3) Closed compression fracture of lumbar vertebra: Status: Acute Qualifiers: Encounter type: initial encounter Lumbar vertebra fracture level: L1 Qualified Code(s): S32.010A - Wedge compression fracture of first lumbar vertebra, initial encounter for closed fracture Category: Medical Code(s): S32.000A - Wedge compression fracture of unspecified lumbar vertebra, initial encounter for closed fracture Plan I did discuss with patient her DEXA scan results that did show some osteopenia. I did also review with the patient in future she may benefit from injection th erapy such as a lumbar medial branch block due to continued to have the chronic low back pain that is worse with movement such as bending, twisting or lifting. I did review over her prior CT image findings that did show multilevel facet arthropathy with moderate to severe changes noted. Patient was also counseled that she may benefit from a pain pump in the future. Patient does state that she was sent for referral to Dr. Morrison at [facility] and that he is someone who is ordered the MRI and she that she is going to follow-up with him just to see what he mentions I did employment counselor the patient that we do a lot of similar procedures and that she is more than welcome to to go to his office or ours however that we would plan to not try to double up. I will make her a 1 month follow-up appointment however she was counseled that she can call and cancel this appointment if she does not need it. Patient was agreeable to this plan of care. Patient has been instructed to contact the clinic with any concerns before the next appointment. Dr. Hatfield has reviewed this note and agrees with this plan of care. This note was dictated using voice recognition software and make contain errors or omissions. All injections are used with Lidocaine or Bupivacaine and Depo Medrol.
== END 2023-09-08 23:59 | disposition home or self-care (01) ==
LOC: SC.PAIN 10:12
PROVIDERS: PCP Family Medicine; Visit Provider Nurse Practitioner Family
DX: M47.816 Spondylosis without myelopathy or radiculopathy, lumbar region (principal); M51.36 Other intervertebral disc degeneration, lumbar region; S32.010A Wedge compression fracture of first lumbar vertebra, initial encounter for closed fracture; Z79.899 Other long term (current) drug therapy
CPT/HCPCS: 99212; G0463

== ENCOUNTER 2023-10-27 11:03 | Outpatient (CLI) | payer MEDICARE, BC, SELFPAY ==
[2023-10-27 11:36] LABS: Basophils % 0.8 % (0.1-2.0); Eosinophils # 0.1 K/mm3 (0.0-0.4); Eosinophils % 2.6 % (0.1-12.0); Hematocrit 43.6 % (37.0-47.0); Hemoglobin 13.7 g/dL (12.2-16.2); Lymphocytes # 1.6 K/mm3 (0.7-4.5); Lymphocytes % 30.6 % (10-50); Mean Corpuscular HGB Conc 31.4 g/dL (31.8-35.4); Mean Corpuscular Hemoglobin 32.8 pg (27.0-31.2); Mean Corpuscular Volume 104.3 fl (81-99); Mean Platelet Volume 7.2 fl (7.4-10.4); Monocytes # 0.4 K/mm3 (0.1-1.0); Monocytes % 8.3 % (1.7-9.3); Neutrophils % 57.8 % (37.0-80.0); Platelet Count 294 K/mm3 (142-424); Red Blood Count 4.18 M/mm3 (4.20-5.40); Red Cell Distribution Width 14.2 % (11.5-17.5); White Blood Count 5.2 K/mm3 (4.8-10.8)
[2023-10-27 11:59] LABS: Albumin Level 4.1 g/dl (3.5-5.0); Chloride 105 mmol/L (98-107); Potassium 4.5 mmoL/L (3.5-5.1); Sodium 138 mmol/L (136-145)
[2023-10-27 12:01] LABS: Blood Urea Nitrogen 22 mg/dl (7-17); Estimated Glomerular Filt Rate 62 ml/min (>60); GFR (African American) 74 ML/MIN (>60)
[2023-10-27 12:02] LABS: Alanine Aminotransferase 37 U/L (12-78); Alkaline Phosphatase 104 U/L (38-126); Anion Gap 7.5 mEq/L (5-15); Aspartate Amino Transferase 33 U/L (14-36); Bilirubin,Direct 0.1 mg/dl (0.0-0.4); Bilirubin,Indirect 0.4 mg/dL (0.0-0.9); Bilirubin,Total 0.5 mg/dl (0.2-1.3); Bilirubin,Unconjugated 0.3 mg/dL (0.0-1.1); Calcium 9.2 mg/dl (8.4-10.2); Carbon Dioxide 30 mmol/L (22.0-30.0); Cholesterol 156 mg/dl (140-200); Glucose 132 mg/dl (74-100); Total Protein,Serum 6.4 g/dl (6.3-8.2); Triglycerides 157 mg/dl (30-150); VLDL Cholesterol 31 mg/dL (0-40)
[2023-10-27 12:03] LABS: Chol/HDL Ratio 3.3 (1-3.5); HDL Cholesterol 47 mg/dl (40-60); Magnesium 1.9 mg/dl (1.6-2.3)
[2023-10-27 12:13] LABS: Direct LDL Cholesterol 63.59 mg/dL (100-129)
[2023-10-27 12:19] LABS: Free T4 (Free Thyroxine) 0.81 ng/dl (0.78-2.19)
[2023-10-27 12:32] LABS: Thyroid Stimulating Hormone 5.19 uIU/mL (0.465-4.68)
== END 2023-10-27 23:59 | disposition home or self-care (01) ==
LOC: LAB 11:05
PROVIDERS: PCP Family Medicine; Visit Provider Nurse Practitioner
DX: I10 Essential (primary) hypertension (principal); E11.69 Type 2 diabetes mellitus with other specified complication; D50.9 Iron deficiency anemia, unspecified; N28.9 Disorder of kidney and ureter, unspecified
CPT/HCPCS: 36415; 80048; 80061; 80076; 83735; 84439; 84443; 85025

== ENCOUNTER 2024-02-05 08:55 | Emergency (ER) | payer MEDICARE, BC, SELFPAY ==
[2024-02-05 09:58] VITALS: BP 140/53; PULSE 63; RESP 18; TEMP 36.9; O2SAT 93; BMI 30.6
--- NOTE | 2024-02-05 09:58 | EXP.UTC ---
Discharge Plan Disposition Patient Disposition: Home, Self-Care Condition: Good Prescriptions Prescriptions: New amoxicillin 875 mg tablet 875 mg PO Q12H Qty: 20 0RF benzonatate 100 mg capsule 100 mg PO TIDP PRN (Reason: Cough) Qty: 30 0RF methylprednisolone 4 mg Tablets,Dose Pack 4 mg PO DIRECTED 6 Days Qty: 21 0RF Rx Instructions: Take 1 pack as directed for 6 days No Action Januvia 100 mg tablet 100 mg PO DAILY carvedilol 25 mg tablet 25 mg PO BID guanfacine 1 mg tablet 1 mg PO DAILY mupirocin 2 % ointment topical hydralazine 25 mg tablet 25 mg PO DAILY Qty: 90 2RF clonazepam [Klonopin] 1 mg tablet 1 mg PO BIDP PRN (Reason: Anxiety) Synjardy XR 12.5-1,000 mg tablet, IR - ER, biphasic 24hr 2 tab PO DAILY Kerendia 20 mg tablet 10 mg PO DAILY aspirin 81 mg Tablet,Delayed Release (Dr/Ec) 81 mg PO DAILY ferrous sulfate 325 mg (65 mg iron) Tablet,Delayed Release (Dr/Ec) 325 mg PO TID pantoprazole 40 mg tablet,delayed release (DR/EC) 40 mg PO BID rosuvastatin 10 mg tablet 10 mg PO HS amitriptyline 25 mg tablet 25 mg PO HS Trintellix 20 mg tablet 20 mg PO DAILY tramadol 50 mg tablet 50 mg PO Q4H PRN (Reason: pain) Qty: 30 0RF Referrals Follow up/Referrals: Chase Gunn MD [Primary Care Provider] - See instructions Activity Restrictions/Add. Instructions Additional Instructions/Restrictions: Drink plenty of fluids. Take tylenol or ibuprofen for pain or fever. Take the medications as directed. Follow up with your regular doctor. GO TO THE ER FOR ANY WORSENING SYMPTOMS Clinical Impressions Clinical Impression: Acute bronchitis, Sinusitis Instructions Patient Instructions: DI for Acute Bronchitis Print Language Print Language: Slovak Discharge ED Provider: Oswald Galvan [facility] [place] Stated complaint: cough, sore throat, chest congestion Time Seen by Provider: 02/05/24 09:58 Related Data Home Medications ?Medication ?Instructions ?Recorded ?Confirmed clonazepam 1 mg tablet (Klonopin) 1 mg PO BIDP PRN Anxiety 09/12/18 02/05/24 empagliflozin 12.5 mg-metformin ER 2 tab PO DAILY 06/23/21 11/10/23 1,000 mg tablet,extended rel 24 hr (Synjardy XR) sitagliptin phosphate 100 mg 100 mg PO DAILY 10/30/21 02/05/24 tablet (Januvia) finerenone 20 mg tablet (Kerendia) 10 mg PO DAILY 09/14/22 02/05/24 aspirin 81 mg tablet,delayed 81 mg PO DAILY 12/31/22 02/05/24 release ferrous sulfate 325 mg (65 mg 325 mg PO TID 12/31/22 02/05/24 iron) tablet,delayed release amitriptyline 25 mg tablet 25 mg PO HS 06/21/23 02/05/24 pantoprazole 40 mg tablet,delayed 40 mg PO BID 06/21/23 02/05/24 release rosuvastatin 10 mg tablet 10 mg PO HS 06/21/23 02/05/24 vortioxetine 20 mg tablet 20 mg PO DAILY 06/21/23 02/05/24 (Trintellix) carvedilol 25 mg tablet 25 mg PO BID 10/27/23 02/05/24 guanfacine 1 mg tablet 1 mg PO DAILY 10/27/23 02/05/24 mupirocin 2 % topical ointment topical 10/27/23 11/10/23 Previous Rx's ?Medication ?Instructions ?Recorded tramadol 50 mg tablet 50 mg PO Q4H PRN pain #30 tabs 06/22/23 hydralazine 25 mg tablet 25 mg PO DAILY #90 tabs 10/27/23 amoxicillin 875 mg tablet 875 mg PO Q12H #20 tabs 02/05/24 benzonatate 100 mg capsule 100 mg PO TIDP PRN Cough #30 caps 02/05/24 methylprednisolone 4 mg tablets in 4 mg PO DIRECTED 6 days #21 tabs 02/05/24 a dose pack Allergies Allergy/AdvReac Type Severity Reaction Status Date / Time No Known Drug Allergies Allergy Unknown Verified 11/10/23 10:44 [facility] Disclaimer: The information contained in this section may have been updated after the patient was seen, as this information can be updated by other users. Medical History Fall Blunt head trauma Anemia Stage 3b chronic kidney disease (CKD) History of respiratory syncytial virus (RSV) infection Cough syncope Respiratory syncytial virus (RSV) Paroxysmal A-fib Accelerated junctional rhythm Abnormal electrocardiogram [ECG] [EKG] Depression History of trigger finger History of cyst of breast Word finding difficulty Sciatica SVT (supraventricular tachycardia) Abnormal EKG Dyspnea Hx of mitral valve prolapse HLD (hyperlipidemia) HTN (hypertension) Diabetes mellitus Family history of heart disease Surgical History History of colonoscopy History of esophagogastroduodenoscopy (EGD) History of surgery aneurism repair History of carpal tunnel release History of hernia repair History of biopsy of temporal artery History of cholecystectomy Family History Other Family history of cardiac disorder Social History Smoking Status: Never smoker alcohol intake: never substance use type: denies use current occupational status: retired Travel in the last 8 weeks: None household members: spouse and children housing: house caffeine: Yes Have you lived/traveled outside [place] in past 30 days?: No Contact w/someone who lives/traveled outside [place] past 30 days?: No Exposure to someone with infectious disease in past 14 days?: No Do you have a fever (greater than 100.4 F or 38 C)?: No Have you tested positive for COVID-19: No Exposed to someone with COVID-19 in past 14 days?: No Do you have a sore throat?: Yes Do you have a cough?: Yes Do you have any weakness?: Yes Do you have any diarrhea?: No Are you experiencing any unusual bleeding?: No Do you have any muscle aches/pain?: No Do you have any abdominal pain?: No Are you experiencing loss of taste or smell?: No ROS Obtained: Yes All systems reviewed & no additional complaints except as documented Constitutional Constitutional: Reports poor appetite Eyes Eyes: Reports system reviewed and no additional complaints, except as documented ENT Ears, Nose, Mouth, and Throat: Reports as per HPI Cardiovascular Cardiovascular: Reports system reviewed and no additional complaints, except as documented and Denies chest pain Respiratory Respiratory: Denies shortness of breath, Reports chest congestion, Reports cough, Denies stridor and Denies wheezing Gastrointestinal Gastrointestingal: Reports system reviewed and no additional complaints, except as documented; Denies abdominal pain, diarrhea or vomiting Musculoskeletal Musculoskeletal: Reports system reviewed and no additional complaints, except as documented and Denies arthralgias Integumentary/Breasts Skin/Breast: Reports system reviewed and no additional complaints, except as documented and Denies rash Neurologic Neurologic: Denies paresthesias Allergic/Immunologic Allergic/Immunologic: Denies wheezing Physical Exam General General appearance: alert and in no apparent distress Eye Eye exam: Present normal appearance, PERRL and EOMI ENT ENT exam: Present mucous membranes moist and normal external ear exam Expanded ENT Exam External ear exam: Present normal external inspection TM/Canal exam: Bilateral TM: erythema and bulging Nose exam: Absent sinus tenderness Nasal speculum exam: Bilateral: normal Mouth exam: Present normal external inspection; Absent drooling Teeth exam: Present normal inspection Throat exam: Present tonsillar erythema and tonsillomegaly Neck Neck exam: Present normal inspection, full ROM and trachea midline; Absent tenderness, lymphadenopathy or thyromegaly Chest Chest inspection: Present normal inspection and symmetric chest wall rise; Absent tenderness or rash Respiratory Respiratory exam: Present normal lung sounds bilaterally; Absent respiratory distress, wheezes, stridor or accessory muscle use Cardiovascular Cardiovascular exam: Present regular rate, normal rhythm and normal heart sounds Abdominal Exam Abdominal exam: Present soft; Absent distention, tenderness, guarding, rebound or rigidity Extremities Exam Extremities exam: Present normal inspection, full ROM and normal capillary refill; Absent tenderness or calf tenderness Back Exam Back exam: Present normal inspection and full ROM; Absent tenderness Neurological Exam Neurological exam: Present alert and oriented X3 Psychiatric Psychiatric exam: Present normal affect and normal mood Skin Skin exam: Present warm, dry, intact and normal color Lymphatic Lymphatic Findings: no adenopathy Medical Decision Making Medical Records Medical records reviewed: No I reviewed the patient's medical records. Screening: Per USPSTF and CDC recommendations, given the prevalence of disease in our region, it is our hospital?s policy to screen for HIV and viral Hepatitis for all patients aged 18 and over and those with ongoing risk factors. Bhavik Inquiry Pt receiving controlled substance: No
--- NOTE | 2024-02-05 10:01 | XR_ITS ---
PROCEDURE INFORMATION: Exam: XR Chest Exam date and time: 02/05/2024 10:04 AM Age: 73 years old Clinical indication: Cough and fever and shortness of breath; Additional info: Cough, congestion, fever TECHNIQUE: Imaging protocol: Radiologic exam of the chest. Views: 2 views. COMPARISON: CR XR CHEST 2V 02/05/2024 10:04 AM FINDINGS: Lungs: Unremarkable. No consolidation. Pleural spaces: Unremarkable. No pleural effusion. No pneumothorax. Heart/Mediastinum: Unremarkable. No cardiomegaly. Bones/joints: Status post L1 vertebroplasty. IMPRESSION: No radiographic evidence of acute cardiopulmonary disease.
[2024-02-05 10:08] LABS: UTC Strep Screen (Rapid) Negative (Negative)
[2024-02-05 10:54] VITALS: BP 140/53; PULSE 63; RESP 18; TEMP 36.9
[2024-02-05 11:02] LABS: Coronavirus 19, PCR Not Detected (NotDetected); Influenza B, PCR Not Detected (NotDetected)
[2024-02-05 11:23] LABS: Influenza A, PCR Detected (NotDetected)
== END 2024-02-05 11:03 | disposition home or self-care (01) ==
PROVIDERS: Emergency Provider Nurse Practitioner Family; PCP Family Medicine
DX: J20.9 Acute bronchitis, unspecified (principal)
CPT/HCPCS: 71046; 87636; 87880; 99213; G0381

== ENCOUNTER 2024-02-28 15:17 | Outpatient (CLI) | payer MEDICARE, BC, SELFPAY ==
[2024-02-28 15:43] LABS: Basophils % 0.7 % (0.1-2.0); Eosinophils # 0.2 K/mm3 (0.0-0.4); Eosinophils % 3.4 % (0.1-12.0); Hematocrit 42.4 % (37.0-47.0); Hemoglobin 13.7 g/dL (12.2-16.2); Lymphocytes # 1.9 K/mm3 (0.7-4.5); Lymphocytes % 32.8 % (10-50); Mean Corpuscular HGB Conc 32.3 g/dL (31.8-35.4); Mean Corpuscular Hemoglobin 33.2 pg (27.0-31.2); Mean Corpuscular Volume 102.7 fl (81-99); Mean Platelet Volume 9.1 fl (7.4-10.4); Monocytes # 0.5 K/mm3 (0.1-1.0); Monocytes % 9.2 % (1.7-9.3); Neutrophils # 3.2 K/mm3 (1.8-7.8); Neutrophils % 53.6 % (37.0-80.0); Platelet Count 296 K/mm3 (142-424); Red Blood Count 4.13 M/mm3 (4.20-5.40); White Blood Count 5.9 K/mm3 (4.8-10.8)
[2024-02-28 16:36] LABS: Albumin Level 3.9 g/dl (3.5-5.0); Blood Urea Nitrogen 19 mg/dl (7-17); Calcium 9.8 mg/dl (8.4-10.2); Carbon Dioxide 27 mmol/L (22.0-30.0); Chloride 104 mmol/L (98-107); Estimated Glomerular Filt Rate 49 ml/min (>60); GFR (African American) 59 ML/MIN (>60); Glucose 146 mg/dl (74-100); Phosphorous 3.7 mg/dl (2.5-4.5); Sodium 142 mmol/L (136-145)
[2024-02-28 16:53] LABS: 25-OH Vitamin D, Total 65.9 ng/mL (30-100)
[2024-02-28 16:59] LABS: Microscopic, Urine URINE MICROSCOPIC (MICROSCOPIC)
[2024-02-28 17:53] LABS: Intact Parathyroid Hormone 15.8 pg/mL (7.5-53.5)
[2024-02-28 18:05] LABS: Total Protein,Urine Random < 5.0 mg/dL (0.0-12.0)
[2024-02-28 18:15] LABS: Creatinine,Urine Random 77 mg/dL (Not Estab.)
[2024-02-28 18:33] LABS: Appearance,Urine CLEAR (Clear); Bilirubin,Urine Negative (Negative); Blood, Urine Negative (Negative); Color,Urine YELLOW (Yellow); Glucose,Urine (UA) 3+ (Negative); Ketones,Urine Negative (Negative); Leukocyte Esterase,Urine Negative (Negative); Nitrate,Urine Negative (Negative); Protein,Urine Negative (Negative); Urobilinogen,Urine 0.2 EU/dl (0.2)
[2024-02-28 21:37] LABS: Bacteria,Urine Trace /lpf; Squamous Epithelial Cell,Urine Occasional #/hpf (0-5); WBC,Urine Occasional #/hpf (0-3)
== END 2024-02-28 23:59 | disposition home or self-care (01) ==
LOC: LAB 15:20
PROVIDERS: PCP Family Medicine; Visit Provider Nurse Practitioner
DX: N28.9 Disorder of kidney and ureter, unspecified (principal); E55.9 Vitamin D deficiency, unspecified
CPT/HCPCS: 80069; 81001; 82306; 82570; 83970; 84156; 85025

== ENCOUNTER 2024-04-03 12:20 | Outpatient (CLI) | payer MEDICARE, BC, SELFPAY ==
--- NOTE | 2024-04-03 12:23 | XR_ITS ---
FINAL REPORT CLINICAL HISTORY: PERSISTENT COUGH x 2 weeks COMPARISON: 06/21/2023 FINDINGS: No acute pulmonary density is evident. There is no evidence of effusion or other pleural disease. The mediastinum has a normal appearance. The cardiac silhouette is unremarkable. There is evidence of a prior kyphoplasty at the T12 level. IMPRESSION: Unremarkable chest exam no significant change since the prior exam of 06/21/2023. Reviewed, Interpreted and Dictated by Og Mariscal MD Transcribed by Maricarmen Anthony Authenticated and [facility]
== END 2024-04-03 23:59 | disposition home or self-care (01) ==
LOC: RAD 12:21
PROVIDERS: PCP Family Medicine; Visit Provider Family Medicine
DX: R05.3 Chronic cough (principal)
CPT/HCPCS: 71046

== ENCOUNTER 2024-06-22 08:44 | Day surgery (SDC) | payer MEDICARE, BC, SELFPAY ==
[2024-06-20 16:29] VITALS: BMI 29.9
[2024-06-22] MEDS: LACTATED RINGERS 1000ML 1,000 ML 50 ML IV (09:08)
[2024-06-22 09:11] VITALS: BP 197/61; PULSE 61; RESP 18; TEMP 36.4; O2SAT 95
--- NOTE | 2024-06-22 09:35 | EXP.ANES.CKL ---
[facility] Disclaimer: The information contained in this section may have been updated after the patient was seen, as this information can be updated by other users. Medical History Fall Blunt head trauma Anemia Stage 3b chronic kidney disease (CKD) History of respiratory syncytial virus (RSV) infection Cough syncope Respiratory syncytial virus (RSV) Paroxysmal A-fib Accelerated junctional rhythm Abnormal electrocardiogram [ECG] [EKG] Depression History of trigger finger History of cyst of breast Word finding difficulty Sciatica SVT (supraventricular tachycardia) Abnormal EKG Dyspnea Hx of mitral valve prolapse HLD (hyperlipidemia) HTN (hypertension) Diabetes mellitus Family history of heart disease Surgical History History of colonoscopy History of esophagogastroduodenoscopy (EGD) History of surgery aneurism repair History of carpal tunnel release History of hernia repair History of biopsy of temporal artery History of cholecystectomy Family History Other Family history of cardiac disorder Social History Smoking Status: Never smoker alcohol intake: never substance use type: denies use current occupational status: retired Travel in the last 8 weeks?: None household members: spouse and children housing: house caffeine: Yes Have you lived/traveled outside US in past 30 days?: No Contact w/someone who lives/traveled outside US past 30 days?: No Exposure to someone with infectious disease in past 14 days?: No Do you have a fever (greater than 100.4 F or 38 C)?: No Have you tested positive for COVID-19?: No Exposed to someone with COVID-19 in past 14 days?: No Do you have a sore throat?: No Do you have a cough?: No Do you have any weakness?: No Do you have any diarrhea?: No Are you experiencing any unusual bleeding?: No Do you have any muscle aches/pain?: No Do you have any abdominal pain?: No Are you experiencing loss of taste or smell?: No [facility] Anesthesia Checklist Patient Identification Patient Identification: Arm Band and Verbal (Name & ) Structural Data Admitted From: Home Planned Operative Procedure/s: EGD Consent for Planned Operative Procedure(s) Verified: Yes Verified Documents: Surgical Consent and History and Physical NPO Status Verified Time NPO: 00:00 Additional verifications Anesthesia Reactions: No Hx Blood Transfusions: No Blood Transfusion Reaction: No Airway Assessment Mallampati Score:: Class II Neurological Assessment Level of Consciousness: Awake, Alert and Appropriate Hx Seizures: No Anesthesia Plan Anesthesia Risk discussed: Yes Anesthesia Plan: Verified ASA Class: III Anesthesia Type: MAC
--- NOTE | 2024-06-22 10:10 | P.HP_ITS ---
History of Present Illness *Admission Date: 06/22/24 *Reason for visit:: Dysphagia, early satiety, nausea, vomiting and weight loss *History of present illness: Mrs. Germain is a 73-year-old female who is here for diagnostic/therapeutic upper endoscopy secondary to dysphagia, nausea, early satiety, vomiting and weight loss. She also has iron deficiency. The examination is deemed medically necessary for upper endoscopy. The patient has been seen, interviewed and examined prior to the procedure by both myself and the anesthesia provider. [facility] Disclaimer: The information contained in this section may have been updated after the patient was seen, as this information can be updated by other users. Medical History Fall Blunt head trauma Anemia Stage 3b chronic kidney disease (CKD) History of respiratory syncytial virus (RSV) infection Cough syncope Respiratory syncytial virus (RSV) Paroxysmal A-fib Accelerated junctional rhythm Abnormal electrocardiogram [ECG] [EKG] Depression History of trigger finger History of cyst of breast Word finding difficulty Sciatica SVT (supraventricular tachycardia) Abnormal EKG Dyspnea Hx of mitral valve prolapse HLD (hyperlipidemia) HTN (hypertension) Diabetes mellitus Family history of heart disease Surgical History History of colonoscopy History of esophagogastroduodenoscopy (EGD) History of surgery aneurism repair History of carpal tunnel release History of hernia repair History of biopsy of temporal artery History of cholecystectomy Family History Other Family history of cardiac disorder Social History Smoking Status: Never smoker alcohol intake: never substance use type: denies use current occupational status: retired Travel in the last 8 weeks?: None household members: spouse and children housing: house caffeine: Yes Have you lived/traveled outside US in past 30 days?: No Contact w/someone who lives/traveled outside US past 30 days?: No Exposure to someone with infectious disease in past 14 days?: No Do you have a fever (greater than 100.4 F or 38 C)?: No Have you tested positive for COVID-19?: No Exposed to someone with COVID-19 in past 14 days?: No Do you have a sore throat?: No Do you have a cough?: No Do you have any weakness?: No Do you have any diarrhea?: No Are you experiencing any unusual bleeding?: No Do you have any muscle aches/pain?: No Do you have any abdominal pain?: No Are you experiencing loss of taste or smell?: No Other Medical History Have you received the Flu Vaccine for this season: Yes Have you received the Pneumonia Vaccine: Yes Review of Systems Review of Systems Review of systems (narrative): Negative *Cardiovascular Comments: Negative *Gastrointestinal Comments: Negative *Genitourinary Comments: Negative *Musculoskeletal Comments: Negative *Neurologic Comments: Negative Meds Home Medications and Allergies Home Medications ?Medication ?Instructions ?Recorded ?Confirmed ?Type clonazepam 1 mg tablet (Klonopin) 1 mg PO BIDP PRN Anxiety 09/12/18 06/20/24 History empagliflozin 12.5 mg-metformin ER 2 tab PO DAILY 06/23/21 06/20/24 History 1,000 mg tablet,extended rel 24 hr (Synjardy XR) aspirin 81 mg tablet,delayed 81 mg PO DAILY 12/31/22 06/20/24 History release ferrous sulfate 325 mg (65 mg 325 mg PO TID 12/31/22 06/20/24 History iron) tablet,delayed release amitriptyline 25 mg tablet 25 mg PO HS 06/21/23 06/20/24 History pantoprazole 40 mg tablet,delayed 40 mg PO BID 06/21/23 05/23/24 History release rosuvastatin 10 mg tablet 10 mg PO HS 06/21/23 06/20/24 History vortioxetine 20 mg tablet 20 mg PO DAILY 06/21/23 06/20/24 History (Trintellix) carvedilol 25 mg tablet 25 mg PO BID 10/27/23 06/20/24 History guanfacine 1 mg tablet 1 mg PO DAILY 10/27/23 05/23/24 History hydralazine 25 mg tablet 25 mg PO DAILY #90 tabs 10/27/23 06/20/24 Rx darifenacin 15 mg tablet,extended 15 mg PO ONCE 02/28/24 05/23/24 History release 24 hr calcium carbonate (Calcium 600) 600 mg PO DAILY 04/11/24 06/20/24 History irbesartan 300 mg tablet 300 mg PO DAILY 04/11/24 05/23/24 History lactobacillus combination no.9 4 4,000 mmu cells PO DAILY 04/11/24 06/20/24 History billion cell capsule (Adult 50 Plus Probiotic) multivitamin 1 tab PO DAILY 04/11/24 06/20/24 History finerenone 10 mg tablet (Kerendia) 10 mg PO DAILY 05/03/24 06/20/24 History saxagliptin 5 mg tablet 5 mg PO DAILY 05/03/24 05/23/24 History mirabegron 50 mg tablet,extended 50 mg PO DAILY #30 tabs 05/16/24 06/20/24 Rx release 24 hr (Myrbetriq) vonoprazan 10 mg tablet (Voquezna) 10 mg PO DAILY 05/23/24 05/23/24 History New Prescriptions to Start Prescriptions: Allergies Allergy/AdvReac Type Severity Reaction Status Date / Time semaglutide (From Ozempic) AdvReac Mild Nausea Verified 06/22/24 09:10 Exam Data for Last 24 hours Vital signs and Labs for Last 24 Hours: Temp Pulse Resp BP Pulse Ox O2 Del Method 97.5 F L 61 18 197/61 H 95 Room Air 06/22/24 09:11 06/22/24 09:11 06/22/24 09:11 06/22/24 09:11 06/22/24 09:11 06/22/24 09:11 I & O for Last 24 hours: Intake & Output 06/19/24 06/20/24 06/21/24 06/22/24 23:59 23:59 23:59 23:59 Weight 180 lb *Routine HEENT Exam Head: Present normocephalic Eye: Present EOMI and PERRL ENT: Present mucous membranes moist *Routine Neck Exam Neck: Present supple *Routine Respiratory Exam Respiratory: Present CTA bilaterally *Routine Cardiovascular Exam Cardiovascular: Present RRR *Routine Abdominal Exam Abdominal: Present soft and normoactive bowel sounds; Absent tenderness *Routine Rectal Exam Rectal:: deferred *Routine Genitalia Exam Genitalia:: deferred *Routine Extremities Exam Extremities: Absent cyanosis, clubbing or edema *Routine Skin Exam Skin: Present warm; Absent rash *Routine Neurological Exam Neurological: Present alert and oriented X3 Assessment and Plan *Assessment and plan (1) Nausea & vomiting: Status: Acute Category: Medical Code(s): R11.2 - Nausea with vomiting, unspecified (2) Dysphagia: Status: Acute Category: Medical Code(s): R13.10 - Dysphagia, unspecified (3) Weight loss: Status: Acute Category: Medical Code(s): R63.4 - Abnormal weight loss (4) Acid reflux: Status: Acute Category: Medical Code(s): K21.9 - Gastro-esophageal reflux disease without esophagitis (5) Bloating: Status: Acute Category: Medical Code(s): R14.0 - Abdominal distension (gaseous) (6) Early satiety: Status: Acute Category: Medical Code(s): R68.81 - Early satiety (7) Anemia, iron deficiency: Status: Acute Category: Medical Code(s): D50.9 - Iron deficiency anemia, unspecified Plan A/P: 1. Dysphagia with nausea, early satiety and intermittent vomiting. She has had weight loss and bloating. She has a history of iron deficiency. This is the preprocedural diagnosis. The patient will be anesthetized/sedated using MAC sedation. The patient has been seen and examined. Cardiac and lung assessment prior to the examination is stable. Proceed with planned diagnostic upper endoscopy/EGD.
[2024-06-22 10:17] VITALS: O2SAT 97
--- NOTE | 2024-06-22 10:21 | HMH.PROCNOTE ---
[facility] Procedure Note Date: 06/22/24 Time: 10:30 Procedure Note:: Upper Endoscopy Procedure Report: Esophagogastroduodenoscopy with cold biopsies and TTS balloon dilation Endoscopost: Galindo Lyn II, MD Referring Physician: Chase Gunn MD Date of Procedure: June 22, 2024 Equipment: Olympus GIF 190 standard upper endoscope Sedation: MAC sedation Indications: Mrs. Wray is a 73-year-old female with symptoms of bloating, nausea, belching, fullness and dyspepsia. She has had some unintentional weight loss. She also has iron deficiency. She has had some dysphagia/swallowing difficulty as well. Occasionally she will regurgitate food. She also reports some chronic constipation. She did have a colonoscopy with Dr. Serge Zaragoza in February 2023 which was normal. Procedure: Prior to the procedure, a history and physical exam was performed, and patient's medications and allergies were reviewed. The risks, benefits and alternatives of the sedation and procedure were discussed with the patient. All questions were answered and informed consent was obtained. The patient was brought to the procedure room. Patient identification and proposed procedure were verified by the physician and the nurse. The patient was placed in a left lateral decubitus position and the scope was passed under direct vision. Throughout the procedure, the patient's blood pressure, pulse, and oxygen saturations were monitored continuously. The upper GI endoscopy was accomplished without difficulty. The patient tolerated the procedure well. Findings: The scope was passed directly into the upper esophagus and advanced to the fourth portion of duodenum and proximal jejunum. Cold biopsies were taken from the jejunum x 4 for disaccharidase assay. The proximal jejunum, post bulbar duodenum, ampulla and duodenal bulb were normal with normal mucosa and conniventes. There was no scalloping of the conniventes. The scope was withdrawn through a normal duodenal bulb and pylorus into the stomach. There was moderate bile reflux with moderate linear reactive gastropathy of the antrum and body of the stomach. Biopsies were taken from the antrum and lesser curvature to rule out H. pylori or reactive gastropathy. Upon retroflexion there was no hiatal hernia. The scope was then withdrawn into the esophagus. There was no evidence of reflux esophagitis or Samuel's. There were no rings, strictures, corrugation or furrowing. There were tertiary contractions and evidence of moderate esophageal dysmotility. The entire esophagus was dilated to 60 Ukrainian/20 mm with a TTS hydrostatic balloon. There was mild resistance at the cricopharyngeus. The remainder of the esophageal mucosa was normal. Impression: 1. Nonerosive GERD with moderate esophageal dysmotility and cricopharyngeal spasm 2. Mild reflux with moderate linear reactive gastropathy Plan: I will follow-up the biopsies. Most of your symptoms of reflux, nausea and dyspepsia are related to and driven by lower intestinal gas pressure gradients/high gas pressure buildup resulting in backflow of bile and peptic fluid from the duodenum into the stomach (duodenal reflux). This gas production (carbon dioxide, hydrogen, methane, etc.) from the lower intestinal tract is the byproduct of colonic bacterial fermentation. This colonic fermentation occurs when there is more carbohydrate (dietary starches, sugars and high residue plant fiber) substrate that does not get digested (in the middle or small intestine) or occurs when there is colonic fecal buildup and colonic bacterial overgrowth. This indeed leads to bloating and the gas pressure buildup with gas pressure gradients that do drive backflow, reflux, regurgitation and dyspepsia. I would encourage her to remain on a fiber bowel regimen. I will check the disaccharidase assay. We will discuss additional treatment options (Iberogast).
[2024-06-22 10:35] VITALS: BP 129/57; PULSE 58; RESP 16; TEMP 36.2; O2SAT 97
[2024-06-22 10:45] VITALS: BP 108/49; PULSE 56; RESP 16; O2SAT 93
[2024-06-22 10:55] VITALS: BP 125/64; PULSE 62; RESP 17; O2SAT 94
[2024-06-22 11:05] VITALS: BP 139/64; PULSE 57; RESP 18; O2SAT 94
[2024-06-23 12:26] LABS: POC Glucose,Bedside 163 (70-110)
[2024-06-27 16:16] LABS: Disclaimer Notes (.); Interpretation Notes (.); Lactase 35.25 (>/= 14.0); Maltase 195.48 (>/= 110.0); Palatinase 12.36 (>/= 8.5); Reference Notes (.); Sucrase 52.46 (>/= 25.0)
== END 2024-06-22 11:37 | disposition home or self-care (01) ==
PROVIDERS: PCP Family Medicine; Visit Provider Internal Medicine Gastroenterology
PROC: 0DJ08ZZ Inspection of Upper Intestinal Tract, Via Natural or Artificial Opening Endoscopic (ICD-10-PCS; CPT 43239; principal; 2024-06-22 10:30)
DX: R11.2 Nausea with vomiting, unspecified (principal); R13.10 Dysphagia, unspecified; R63.4 Abnormal weight loss; R14.0 Abdominal distension (gaseous); R68.81 Early satiety; D50.9 Iron deficiency anemia, unspecified; R14.2 Eructation; K59.00 Constipation, unspecified; R10.13 Epigastric pain; K21.9 Gastro-esophageal reflux disease without esophagitis; K22.4 Dyskinesia of esophagus; J39.2 Other diseases of pharynx; K31.9 Disease of stomach and duodenum, unspecified; E11.9 Type 2 diabetes mellitus without complications
CPT/HCPCS: 43239; 43249; 82657; 82962; 88305; C1726; J7120

== ENCOUNTER 2024-06-29 19:18 | Emergency (ER) | payer MEDICARE, BC, SELFPAY ==
[2024-06-29] VITALS (7 sets, daily range): BP systolic 124–150; BP diastolic 40–66; PULSE 59–78; RESP 18–20; TEMP 36.6–36.7; O2SAT 95–97; BMI 30.7
--- NOTE | 2024-06-29 19:20 | CT_ITS ---
PROCEDURE INFORMATION: Exam: CTA Abdomen and Pelvis With Contrast Exam date and time: 06/29/2024 8:08 PM Age: 73 years old Clinical indication: Other: Brbpr; Additional info: Brbpr new onset, no hemorrhoids on exam TECHNIQUE: Imaging protocol: Computed tomographic angiography of the abdomen and pelvis with contrast. Exam focused on the arteries. 3D rendering (Not supervised by radiologist): MIP and/or 3D reconstructed images were created by the technologist. Radiation optimization: All CT scans at this facility use at least one of these dose optimization techniques: automated exposure control; mA and/or kV adjustment per patient size (includes targeted exams where dose is matched to clinical indication); or iterative reconstruction. Contrast material: ISO 370; Contrast volume: 80 ml; Contrast route: INTRAVENOUS (IV); COMPARISON: CT ANGIO ABDOMEN PELVIS 04/08/2023 9:58 AM FINDINGS: Aorta: No aortic aneurysm. No aortic dissection. Celiac trunk and mesenteric arteries: No occlusion or significant stenosis. Renal arteries: No occlusion or significant stenosis. Right iliac arteries: No occlusion or significant stenosis. Left iliac arteries: No occlusion or significant stenosis. Liver: No mass. Gallbladder and biliary ducts: Prior cholecystectomy Pancreas: Unremarkable. No mass. No ductal dilation. Spleen: Unremarkable. No splenomegaly. Adrenal glands: Unremarkable. No mass. Kidneys and ureters: Unremarkable. No solid mass. No hydronephrosis. Stomach and bowel: Constipation throughout the colon especially at the level of the rectum Appendix: Normal appendix Intraperitoneal space: No intraluminal or extraluminal active hemorrhage or hematoma identified Lymph nodes: Unremarkable. No enlarged lymph nodes. Urinary bladder: Unremarkable. No mass. Reproductive: Unremarkable as visualized. Bones/joints: Old degenerative disc disease L4-L5 level. Old compression fracture and cement augmentation L1 with mild central canal stenosis Soft tissues: Unremarkable. IMPRESSION: 1. Constipation especially in the rectum 2. No active hemorrhage or hematoma
--- NOTE | 2024-06-29 19:25 | [facility].EDGENADL ---
Discharge Plan Disposition Patient Disposition: Home, Self-Care Chief Complaint: GI Bleed Prescriptions Prescriptions: No Action carvedilol 25 mg tablet 25 mg PO BID guanfacine 1 mg tablet 1 mg PO DAILY hydralazine 25 mg tablet 25 mg PO DAILY Qty: 90 2RF darifenacin 15 mg tablet extended release 24 hr 15 mg PO ONCE Kerendia 10 mg tablet 10 mg PO DAILY saxagliptin 5 mg tablet 5 mg PO DAILY calcium carbonate [Calcium 600] 600 mg calcium (1,500 mg) tablet 600 mg PO DAILY Adult 50 Plus Probiotic 4 billion cell capsule 4,000 mmu cells PO DAILY Rx Instructions: administer with a meal irbesartan 300 mg tablet 300 mg PO DAILY multivitamin Tablet 1 tab PO DAILY Voquezna 10 mg tablet 10 mg PO DAILY clonazepam [Klonopin] 1 mg tablet 1 mg PO BIDP PRN (Reason: Anxiety) Synjardy XR 12.5-1,000 mg tablet, IR - ER, biphasic 24hr 2 tab PO DAILY mirabegron [Myrbetriq] 50 mg tablet extended release 24 hr 50 mg PO DAILY Qty: 30 0RF aspirin 81 mg Tablet,Delayed Release (Dr/Ec) 81 mg PO DAILY ferrous sulfate 325 mg (65 mg iron) Tablet,Delayed Release (Dr/Ec) 325 mg PO TID pantoprazole 40 mg tablet,delayed release (DR/EC) 40 mg PO BID rosuvastatin 10 mg tablet 10 mg PO HS amitriptyline 25 mg tablet 25 mg PO HS Trintellix 20 mg tablet 20 mg PO DAILY Referrals Follow up/Referrals: Provider,Referral, MD [Referring] - See instructions Activity Restrictions/Add. Instructions Additional Instructions/Restrictions: Follow-up with your family doctor regarding this visit to the emergency department to establish care and ensure improvement. Talk about scheduling a colonoscopy to further evaluate source of bleeding. If you have any worsening of your condition or any other concerning signs or symptoms, return to the emergency department or your primary care doctor for further evaluation. Clinical Impressions Clinical Impression: Bright red rectal bleeding Instructions Patient Instructions: DI for Gastrointestinal Bleeding Print Language Print Language: German Discharge ED Provider: Zev Krishnamurthy General Adult HPI General Chief complaint: GI Bleed Stated complaint: Blood with bowel movement Time Seen by Provider: 06/29/24 19:20 Mode of Arrival: Ambulatory Source of Information: EMS Description of Symptoms (Recalled from ER Triage Doc. by RN): patient states that she had blood in the toilet and on her toilet paper approximately minutes [employer]. Denies any abdominal cramping or pain. Does take aspirin daily. History of Present Illness HPI narrative: Please note that above description of symptoms, in this electronic medical record under categorization of recalled from ER triage doctor by RN are reflective of an initial nursing assessment, however, is not reflective of my full history and physical exam that was personally taken and clarified. Consequentially, this preceding description of symptoms, which may include the patient's categorized chief complaint in the EMR, do not reflect my personal clinical impression, and the ultimate description of history of present illness and patient stated complaints should be deferred to this section of the note. Unless stated otherwise or congruent with this section of the note, additional signs, symptoms, or incongruence should be interpreted as inaccurate with my clinical impression. Related Data Home Medications ?Medication ?Instructions ?Recorded ?Confirmed clonazepam 1 mg tablet (Klonopin) 1 mg PO BIDP PRN Anxiety 09/12/18 06/20/24 empagliflozin 12.5 mg-metformin ER 2 tab PO DAILY 06/23/21 06/20/24 1,000 mg tablet,extended rel 24 hr (Synjardy XR) aspirin 81 mg tablet,delayed 81 mg PO DAILY 12/31/22 06/20/24 release ferrous sulfate 325 mg (65 mg 325 mg PO TID 12/31/22 06/20/24 iron) tablet,delayed release amitriptyline 25 mg tablet 25 mg PO HS 06/21/23 06/20/24 pantoprazole 40 mg tablet,delayed 40 mg PO BID 06/21/23 05/23/24 release rosuvastatin 10 mg tablet 10 mg PO HS 06/21/23 06/20/24 vortioxetine 20 mg tablet 20 mg PO DAILY 06/21/23 06/20/24 (Trintellix) carvedilol 25 mg tablet 25 mg PO BID 10/27/23 06/20/24 guanfacine 1 mg tablet 1 mg PO DAILY 10/27/23 05/23/24 darifenacin 15 mg tablet,extended 15 mg PO ONCE 02/28/24 05/23/24 release 24 hr calcium carbonate (Calcium 600) 600 mg PO DAILY 04/11/24 06/20/24 irbesartan 300 mg tablet 300 mg PO DAILY 04/11/24 05/23/24 lactobacillus combination no.9 4 4,000 mmu cells PO DAILY 04/11/24 06/20/24 billion cell capsule (Adult 50 Plus Probiotic) multivitamin 1 tab PO DAILY 04/11/24 06/20/24 finerenone 10 mg tablet (Kerendia) 10 mg PO DAILY 05/03/24 06/20/24 saxagliptin 5 mg tablet 5 mg PO DAILY 05/03/24 05/23/24 vonoprazan 10 mg tablet (Voquezna) 10 mg PO DAILY 05/23/24 05/23/24 Previous Rx's ?Medication ?Instructions ?Recorded hydralazine 25 mg tablet 25 mg PO DAILY #90 tabs 10/27/23 mirabegron 50 mg tablet,extended 50 mg PO DAILY #30 tabs 05/16/24 release 24 hr (Myrbetriq) Allergies Allergy/AdvReac Type Severity Reaction Status Date / Time semaglutide (From Ozempic) AdvReac Mild Nausea Verified 06/22/24 09:10 [facility] Disclaimer: The information contained in this section may have been updated after the patient was seen, as this information can be updated by other users. Medical History Fall Blunt head trauma Anemia Stage 3b chronic kidney disease (CKD) History of respiratory syncytial virus (RSV) infection Cough syncope Respiratory syncytial virus (RSV) Paroxysmal A-fib Accelerated junctional rhythm Abnormal electrocardiogram [ECG] [EKG] Depression History of trigger finger History of cyst of breast Word finding difficulty Sciatica SVT (supraventricular tachycardia) Abnormal EKG Dyspnea Hx of mitral valve prolapse HLD (hyperlipidemia) HTN (hypertension) Diabetes mellitus Family history of heart disease Surgical History History of colonoscopy History of esophagogastroduodenoscopy (EGD) History of surgery aneurism repair History of carpal tunnel release History of hernia repair History of biopsy of temporal artery History of cholecystectomy Family History Other Family history of cardiac disorder Social History Smoking Status: Never smoker alcohol intake: never substance use type: denies use current occupational status: retired Travel in the last 8 weeks?: None household members: spouse and children housing: house caffeine: Yes Have you lived/traveled outside [place] in past 30 days?: No Contact w/someone who lives/traveled outside [place] past 30 days?: No Exposure to someone with infectious disease in past 14 days?: No Do you have a fever (greater than 100.4 F or 38 C)?: No Have you tested positive for COVID-19?: No Exposed to someone with COVID-19 in past 14 days?: No Do you have a sore throat?: No Do you have a cough?: No Do you have any weakness?: No Do you have any diarrhea?: No Are you experiencing any unusual bleeding?: No Do you have any muscle aches/pain?: No Do you have any abdominal pain?: No Are you experiencing loss of taste or smell?: No Other Medical History Have you received the Flu Vaccine for this season: Yes Have you received the Pneumonia Vaccine: Yes ROS Obtained: Yes All systems reviewed & no additional complaints except as documented Physical Exam General General appearance: alert and in no apparent distress Head Head exam: atraumatic and normocephalic Eye Eye exam: Present normal appearance, PERRL and EOMI Neck Neck exam: Present normal inspection, full ROM and trachea midline Respiratory Respiratory exam: Present normal lung sounds bilaterally; Absent respiratory distress, wheezes, stridor, accessory muscle use or prolonged expiratory phase Cardiovascular Cardiovascular exam: Present regular rate, normal rhythm and other (Pulses equal symmetric in upper and lower extremities) Abdominal Exam Abdominal exam: Present soft; Absent distention, tenderness or pulsatile mass Rectal Exam Rectal exam: Present normal inspection and normal rectal tone; Absent hemorrhoids comment: No obvious hemorrhoids. Dried blood in gluteal cleft as well as fecal contents. Extremities Exam Extremities exam: Absent edema Neurological Exam Neurological exam: Present alert, oriented X3 and CN II-XII intact; Absent motor sensory deficit Skin Skin exam: Present warm and dry; Absent diaphoresis or erythema Medical Decision Making Medical Records Medical records reviewed: Yes I reviewed the patient's medical records. Screening: Per USPSTF and CDC recommendations, given the prevalence of disease in our region, it is our hospital?s policy to screen for HIV and viral Hepatitis for all patients aged 18 and over and those with ongoing risk factors. Bhavik Inquiry Pt receiving controlled substance: No Bhavik was queried for this patient: No Vital Signs: 06/29/24 19:18 06/29/24 19:23 06/29/24 19:31 Temperature 98 F Temperature Source Oral Pulse Rate 61 61 Pulse Rate [Left] 78 Respiratory Rate 18 Blood Pressure 150/60 H 139/58 L Blood Pressure [Right Arm] 150/66 H Blood Pressure Mean [Right Arm] 94 Blood Pressure Source [Right Arm] Automatic Cuff Blood Pressure Position [Right Arm] Supine 02 Sat by Pulse Oximetry 95 97 95 Oxygen Delivery Method Room Air 06/29/24 20:01 06/29/24 20:31 06/29/24 21:01 Temperature Temperature Source Pulse Rate 62 61 60 Pulse Rate [Left] Respiratory Rate Blood Pressure 139/64 124/49 L 134/40 L Blood Pressure [Right Arm] Blood Pressure Mean [Right Arm] Blood Pressure Source [Right Arm] Blood Pressure Position [Right Arm] 02 Sat by Pulse Oximetry 96 96 96 Oxygen Delivery Method Lab Data Lab Results 06/29/24 19:15: WBC 5.1, RBC 3.71 L, Hgb 12.5, Hct 37.4, MCV 100.8 H, MCH 33.7 H, MCHC 33.4, RDW 12.5, Plt Count 231, MPV 9.6, Neut % (Auto) 49.3, Lymph % (Auto) 32.0, [place] % (Auto) 13.8 H, Eos % (Auto) 4.1, Baso % (Auto) 0.6, Neut # (Auto) 2.5, Lymph # (Auto) 1.6, [place] # (Auto) 0.7, Eos # (Auto) 0.2, Baso # (Auto) 0.0, PT 11.2, INR 1.01, APTT 24.8, Sodium 136, Potassium 4.9, Chloride 103, Carbon Dioxide 27, Anion Gap 10.9, BUN 32 H, Creatinine 1.20 H, Estimated Creat Clear 55, Estimated GFR 44 L, Est GFR ( Amer) 53 L, Glucose 127 H, Calcium 9.8, Total Bilirubin 0.3, AST 31, ALT 30, Alkaline Phosphatase 105, Total Protein 6.8, Albumin 4.1, Globulin 2.7, Albumin/Globulin Ratio 1.5 06/29/24 19:15 06/29/24 19:15 Orders (Tests/Meds): ED MEDICATIONS Discontinued Medications Generic Name Dose Route Start Last Admin Trade Name Khai PRN Reason Stop Dose Admin Iopamidol 80 ml 06/29/24 20:11 06/29/24 20:12 Iopamidol-370 (76%);100ml Bottle IV 06/29/24 20:12 80 ml ONCE ONE Administration Sodium Chloride 50 ml 06/29/24 20:11 06/29/24 20:12 0.9 % Sodium Chloride 50 Ml Vial IV 06/29/24 20:12 50 ml ONCE ONE Administration Sodium Chloride 10 ml 06/29/24 20:11 06/29/24 20:12 Sodium Chloride 0.9% 10ml Syr (Rad Only) IV 06/29/24 20:12 10 ml ONCE ONE Administration ORDERS Category Date Time Status CT angio abd/pel - GI Bleed Stat Cat Scan 06/29/24 19:20 Completed CBC w/Auto Diff [Complete Blood Count Auto Diff] Stat Lab 06/29/24 19:15 Completed CMP [Comprehensive Metabolic Panel] Stat Lab 06/29/24 19:15 Completed PT INR [Prothrombin Time INR] Stat Lab 06/29/24 19:15 Completed PTT [Activated Partial Thrombo Time] Stat Lab 06/29/24 19:15 Completed UA [Urinalysis and Microscopic] Stat Lab 06/29/24 19:27 Ordered Medical Decision Narrative: 73-year-old female history of hypertension, hyperlipidemia, CKD, CAD, type 2 diabetes presenting with rectal bleeding. She states that just for arrival she sat on the toilet in order to urinate. Wiped, had bright red blood on the toilet paper. Wiped again, had bright red blood on the toilet paper from her. States it is not vaginal, it is not urinary, she is certain that it is rectal. No lightheadedness, chest pain, nausea, vomiting, syncope, abdominal pain, cramping, flank pain, urinary symptoms, neurologic symptoms, or any other concerns. Completely asymptomatic otherwise. Is never been told that she had hemorrhoids. Also states that her last colonoscopy was 3 years ago, completely normal for her she is never had an abnormal colonoscopy in the past. History was obtained via conversation with patient. On arrival, patient hemodynamically stable, alert, oriented x4, appropriate, GCS 15, moving all extremities spontaneously, pupils equal and reactive to light. Full physical exam performed and significant for very clinically well-appearing female no acute distress. Abdomen is soft, nontender, nondistended. She is normotensive, nontachycardic, speaking full sentences. Rectal exam normal other than dried blood and fecal contents in the gluteal cleft. No palpable hemorrhoids, normal rectal tone, no internal or external hemorrhoids. No obvious pain or fissure. Differential includes internal hemorrhoids, diverticulosis, colitis, enteritis, malignancy, among others. Patient placed on continuous cardiac monitoring and continuous pulse ox with initial blood pressure 150/66, heart rate 78, saturation 95% on room air. Workup independently interpreted and significant for nonactionable CBC with hemoglobin 12.5 and platelets normal at 231. Chemistry with stable CKD creatinine 1.2 and BUN 30. Patient's LFTs all normal. CT angiogram of the abdomen and pelvis was independently interpreted and she is constipated, but has no obvious focus of bleeding. On repeat evaluation, patient tolerating p.o. intake without issue, no further episodes of bleeding and appears very well. Given patient presentation, workup, history, this most likely represents internal hemorrhoid versus resolved diverticular bleed versus colitis versus anal fissure, among others. Recommend she follow-up with her family doctor, she voiced understanding. Also recommended she follow-up for further colonoscopy. She voiced understanding as well. Because patient at baseline without signs or symptoms of clinical decompensation, deemed appropriate for discharge. Results were relayed to patient who voiced understanding and were agreeable to outpatient management and follow up. I discussed my clinical impression with patient and answered all questions. At this time, the evidence for any other entities in the differential is insufficient to warrant any further testing or ED observation. This was explained as well. Advisory was given that persistent or worsening symptoms require further evaluation. I confirmed the understanding of this discussion. Card Grinder disclaimer Much of this encounter note is an electronic head teller spoken language to printed text. Electronic head teller of the spoken language may permit errors. Although I have reviewed the note, some errors may still exist. Critical Care Critical Care Time Critical Care Time: No
--- OUTSIDE RECORDS SUMMARY | 2024-06-29 19:26 | XMS_ITS | Continuity of Care Document ---
Author Organization [facility] Address [address] [place] [address] Care Team Providers Care Archives Director Name Role Phone DARIELA LOCKETT Primary Care Provider Assessment Encounter Date Assessment Date Assessment LastModified by Organization Details LastModified Time 06/15/2024 06/15/2024 - 73-year-old female with history of overactive bladder and urge incontinence, presenting with persistent urinary symptoms. - Persistent symptoms despite interstim neurostimulator and medication trials. - Consideration of Botox if current treatment fails. [email or web address] Not available 06/15/2024 15:54:01 Plan of Treatment Reminders Order Date Submit Date Provider Last Modified By Organization Details Last Modified Time Details Appointments RECHECK 2024 04:00P Adriana AMIN MD Not available Not available Not available Lab None recorded. Referral None recorded. Procedures None recorded. Surgeries None recorded. Imaging None recorded. Medication Orders trospium 20 mg tablet 2024 05 025 [facility], [address] [place], [address], 06/15/2024 15:55:49 Patient TargetsNo targets recorded. Patient Instructions Encounter Date Encounter Id Patient Instructions Last Modified By Organization Details Last Modified Time 06/15/2024 [id number] - Begin taking trazodone as directed. - Keep track of your symptoms and urine frequency. - If there is no improvement, consider Botox as discussed. - Return for follow-up to evaluate treatment progress. - Change pads as needed and monitor for any new symptoms. - Call if you experience any urgent issues or side effects. [email or web address] Not available 06/15/2024 15:54:03 Reason for Referral None Reported. Problems Name Problem SNOMED Code Status Onset Date Resolution Date Notes Provider Name and Address Organization Details Recorded Time Overactive urinary bladder 139443660 Active 024 JOSE AMIN MD [address] [place] [address], [id number], [facility] 15:59:10 Problem Notes None recorded. Procedures Surgical History Date Name Laterality Status Provider Name and Address Organization Details Recorded Time cholecystectomy completed [facility] 11/22/2023 14:47:43 Carpal tunnel surgery completed [facility] 11/22/2023 14:47:59 hernia repair completed [facility] 11/22/2023 14:48:23 biopsy completed [facility] 11/22/2023 14:48:59 Tubal Ligation completed [facility] 11/22/2023 14:49:07 procedure on finger completed [facility] 11/22/2023 14:49:32 Cerebral Aneurysm completed [facility] 11/22/2023 14:50:43 Imaging Results None recorded. Procedure Notes None recorded. Medical Equipment None Reported. Allergies Allergen ID Allergen Name Allergen Category Reaction Reaction Severity Criticality Documentation Date Start Date Code Code System Note Provider Name and Address Organization Details Recorded Time [id number] Ozempic medicatio n Not available Not available Not available 11/22/2023 [facility] [place] 14:43:39 Medications Name Sig Start Date Stop Date Status Note LastModified by Organization Details LastModified Time amoxicillin 500 mg capsule active Not Available Not Available Not Available promethazin e-DM 6.25 mg-15 mg/5 mL oral syrup active Not Available Not Available Not Available carvedilol 25 mg tablet active Not Available Not Available Not Available oxybutynin chloride ER 15 mg tablet,exte nded release 24 hr active Not Available Not Available Not Available carvedilol 12.5 mg tablet active Not Available Not Available Not Available tizanidine 2 mg tablet active Not Available Not Available Not Available azithromyci n 250 mg tablet active Not Available Not Available Not Available fluconazole 150 mg tablet active Not Available Not Available Not Available benzonatate 200 mg capsule active Not Available Not Available Not Available hydrocodone 5 mg-acetamin ophen 325 mg tablet active Not Available Not Available No t Available prednisone 20 mg tablet active Not Available Not Available Not Available clonazepam 1 mg tablet active Not Available Not Available Not Available hydralazine 25 mg tablet active Not Available Not Available Not Available metronidazo le 500 mg tablet active Not Available Not Available Not Available amlodipine 5 mg tablet active Not Available Not Available Not Available amitriptyli ne 25 mg tablet active Not Available Not Available Not Available hydrocodone -homatropin e 5 mg-1.5 mg tablet TAKE 1 TABLET BY MOUTH EVERY 6 HOURS NEEDED active Not Available Not Available No t Available dexamethaso ne 2 mg tablet active Not Available Not Available Not Available hydrocodone 7.5 mg-acetamin ophen 325 mg tablet Take 1 tablet every 6 hours by oral route as needed. 2023 active Not Available Not Available Not Avai lable cephalexin 500 mg capsule active Not Available Not Available Not Available pantoprazol e 40 mg tablet,lisa yed release active Not Available Not Available Not Available hyoscyamine 0.125 mg sublingual tablet active Not Available Not Available Not Available guanfacine 1 mg tablet active Not Available Not Available Not Available gabapentin 300 mg capsule active Not Available Not Available Not Available mupirocin 2 % topical ointment active Not Available Not Available Not Available irbesartan 150 mg tablet active Not Available Not Available Not Available ibuprofen 600 mg tablet active Not Available Not Available Not Available cefuroxime axetil 500 mg tablet Take 1 tablet every 12 hours by oral route for 10 days. 2023 active Not Available Not Available Not Avai lable albuterol sulfate HFA 90 mcg/actuati on aerosol inhaler active Not Available Not Available Not Available pioglitazon e 30 mg tablet active Not Available Not Available Not Available bromphenira mine-pseudo ephedrine-D M 2 mg-30 mg-10 mg/5 mL oral syrup active Not Available Not Available Not Available ondansetron 4 mg disintegrat ing tablet active Not Available Not Available N ot Available cefdinir 300 mg capsule active Not Available Not Available Not Available fluticasone propionate 50 mcg/actuati on nasal spray,suspe nsion active Not Available Not Available Not Available irbesartan 300 mg tablet active Not Available Not Available Not Available rosuvastati n 10 mg tablet active Not Available Not Available Not Available trospium 20 mg tablet Take 1 tablet twice a day by oral route for 90 days. 2024 active Not Available Not Available Not Avai lable solifenacin 10 mg tablet Take 1 tablet every day by oral route for 90 days. 01/27 completed Not Available Not Available Not Available darifenacin ER 15 mg tablet,exte nded release 24 hr Take 1 tablet every day by oral route. 2023 active Not Available Not Available Not Avai lable aspirin active Not Available Not Avail able Not Available calcium active Not Available Not Avail able Not Available ferrous sulfate active Not Available Not Available Not Available Januvia 100 mg tablet active Not Available Not Available No t Available candesartan 32 mg-hydrochl orothiazide 25 mg tablet active Not Available Not Available Not Available Probiotic active Not Available Not Ayana ilable Not Available Multi Vitamin active Not Available Not Available Not Available Trintellix 20 mg tablet active Not Available Not Available Not Available Synjardy XR 12.5 mg-1,000 mg tablet, extended release active Not Available Not Available Not Available Gemtesa 75 mg tablet active Not Available Not Available No t Available Kerendia 10 mg tablet active Not Available Not Available No t Available Kerendia 20 mg tablet active Not Available Not Available No t Available Paxlovid 300 mg (150 mg x 2)-100 mg tablets in a dose pack FOLLOW PACKAGE DIRECTION S active Not Available Not Available No t Available Clenpiq 10 mg-3.5 gram-12 gram/175 mL oral solution active Not Available Not Available Not Available Vitals Date Recorded Body height Body mass index (BMI) Body weight Provider Name and Address Organization Details Last Updated DateTime 06/15/2024 165.1 cm 30 kg/m2 58274.63 g Torie Mccoy [facility] 06/15/2024 16:02:09 Social History Question Answer Notes LastModified by Organizat ion Details LastModified Time Tobacco Smoking Status Never Smoker Anthony brock, [facility] 11/22/2023 14:47:17 What Was The Date Of Your Most Recent Tobacco Screening? 06/15/2024 [email or web address] Information not available 06/15/2024 What Is Your Relationship Status? [email or web address] Information not available 11/22/2023 Has Tobacco Cessation Counseling Been Provided? No Information not available 11/22/2023 Sex: Unknown Functional Status Question Answer Note LastModified by Organizat ion Details LastModified Time Do you use any illicit or recreational drugs? No [email or web address] Information not available 11/22/2023 Do you or have you ever used any other forms of tobacco or nicotine? No [email or web address] Information not available 11/22/2023 What is your level of alcohol consumption? None [email or web address] Information not available 11/22/2023 Are you currently employed? No retired [email or web address] Information not available 11/22/2023 Mental Status None recorded. Family History Relationship Description Onset Age of this Age Resolved Age Notes LastModified by Organization Details LastModified Time Father No current problems or disability [email or web address] Not available 14:47:07 Mother No current problems or disability [email or web address] Not available 14:47:07 Medical History Condition Response Diabetes Y Anemia Y Arthritis Y Stroke Y Hypertension Y Gynecological HistoryNo gynecological history recorded. Obstetrics History GPAL:G 0 P 0 0 0 0 Past Encounters Encounter ID Performer Location Encounter Start Date Encounter Closed Date Diagnosis/Indication Diagnosis SNOMED-CT Code Diagnosis ICD10 Code Diagnosis Note [id number] JOSE AMIN MD [facility] [address] [place] [address],[place] [address] 06/15/2024 15:41:59 06/15/2024 16:23:09 Overactive urinary bladder 397422648 N32.81 - Initiate trazodone. - Consider Botox if symptoms persist. - Monitor trospium efficacy. - Discuss consent for Botox. Urge incon tinence of urine 76994665 N39.41 - Trospium prescribed . - Possible Botox as backup. - Inform patient on Botox details. - Consent for Botox if chosen. Health Concerns Section Related Observation LastModified by Organization Detai ls LastModified Time None Recorded Concern Status LastModified by Organization Details LastModified Time None Recorded Payers Encounter Date Sequence Insurance Name Policy Number Policy Batista Covered Member ID Batista Member ID Guarantor Name 06/15/2024 1 [place]ARE[place]MEDICARE[place] Rosa Huston Kamala [id number] Rosa Huston Akmala 06/15/2024 2 [place] [id number] Rosa Kamala [id number] Rosa Huston Kamala Notes Date Note Type Note Provider Name and Address Organization Details Recorded Time 06/15/2024 text/html - The patient is a 73-year-old female presenting with follow-up evaluation for overactive bladder and urinary urgency with urge incontinence. - Frequent urination, approximately 8-10 times during the day, and nightly voiding at least once. - Urinary leakage occurs often when rising from sitting, with pad changes needed 3-4 times daily. - Interstim neurostimulator placed in 2017, removed December 2013 due to inefficacy. - No improvement with darifenacin or mirabegron 50 mg. - Denies difficulty initiating urination, burning, or hematuria. - No prior Botox treatment for the condition. JOSE AMIN MD [facility] [place], [address], [facility] 06/16/2024 08:49:30 OBGyn Episode No OBEpisode recorded.
--- OUTSIDE RECORDS SUMMARY | 2024-06-29 19:26 | XMS_ITS | Data Portability ---
Author Organization [facility] SILT CLOSED Address [address] [place] [address] Care Team Providers Care Quality Control Assistant Name Role Phone DARIELA LOCKETT Primary Care Provider [phone] Assessment Encounter Date Assessment Date Assessment LastModified by Organization Details LastModified Time 11/22/2023 11/22/2023 We discussed options of removal of InterStim with or without replacement of MRI compatible device. She does not wish to have replacement. She wishes to have removal of InterStim and all components. She is initiated on Solifenacin for medical management of lower urinary symptoms. [email or web address] Not available 11/28/2023 11:31:22 12/30/2023 12/30/2023 SURGERY DATE: 12/30/2023 PREOPERATIVE DIAGNOSIS: Overactive bladder POSTOPERATIVE DIAGNOSIS: Overactive bladder PROCEDURE: Removal of InterStim and all components SURGEON: Jose Amin MD ANESTHESIA: MAC ESTIMATED BLOOD LOSS: <5 ml COMPLICATIONS: None. SPECIMENS: None OPERATIVE NOTE: Patient was correctly identified in the preoperative holding area. Informed consent was obtained after risks and benefits were once again discussed. She is taken to the operative she to room and placed in prone position on the operative table. Anesthesia induced. All pressure points padded. Proper timeout procedure completed. Pillows were placed under the shins the shins to allow the toes to dangle freely. The patient was prepped and draped in normal sterile fashion. Local injectable analgesia was infiltrated along previous incisional scars. The incision overlying the battery was opened with scalpel and deepened with electrocautery. The wound pocket was opened and the battery was removed onto the surgical field. With slight traction of the electrode lead a small dimple is noted over the midline sacrum. Local injectable analgesia was infiltrated along the previous scar and scar reopened for distance of approximately 1 cm. Right angle clamp utilized to grasp/hook the lead electrode. It was brought onto the surgical field. Heavy scissors used to cut the electrode at the level of the battery and the battery passed off the field. The electrode was pulled through the midline incision. Dissection was carried out to the level of the sacrum. Surgical clamp was utilized to grasp the lead electrode and with slight gentle traction the electrode was able to be removed with all components. The wound was irrigated. The wound was closed with deep Vicryl and subcuticular Monocryl and Dermabond. Patient tolerated procedure well. DISPOSITION: The patient tolerated the procedure well. She was taken to the recovery room in stable condition. [email or web address] Not available 12/30/2023 10:46:30 01/28/2024 01/28/2024 Switch to darifenacin for medical management of lower urinary symptoms. [email or web address] Not available 01/28/2024 11:04:21 06/15/2024 06/15/2024 - 73-year-old female with history [...] Not available Not available Not available Lab urinalysi s panel, auto 2023 024 [email or web address] [facility], [address], [facility] [address], [place], [address], 01/30/2024 09:04:10 Referral None recorded. Procedures None recorded. Surgeries revision or removal of periphera l or gastric neurostim ulator pulse generator or applied behavior science specialist (SURG) 2023 024 [email or web address] [facility], [address], [place], [address], 02/18/2024 16:45:09 Imaging None recorded. Medication Orders trospium 20 mg tablet 2024 025 [facility], [address] [place], [address], 06/15/2024 15:55:49 darifenac in ER 15 mg tablet,ex tended release 24 hr 2023 024 [facility], [address] [place], [address], 04/26/2024 12:58:15 hydrocodo ne 7.5 mg-acetam inophen 325 mg tablet 2023 024 [facility], [address] [place], [address], 12/30/2023 10:50:21 solifenac in 10 mg tablet 2023 024 [facility], [address] [place], [address], 01/28/2024 11:08:14 Patient TargetsNo targets recorded. Patient Instructions Encounter Date Encounter Id Patient Instructions Last Modified By Organization Details Last Modified Time 06/15/2024 [id number] - Begin taking trazodone as directed. - [...] 06/15/2024 15:54:03 Reason for Referral None Reported. Results Created Date Observation Date Name Description Value Unit Range Abnormal Flag Note LastModifiedBy Organization Detail LastModifiedTime 12/30/1912/30/2023 UA WITH CULTU RE IF INDIC ATED color Yellow normal Not Available [facility] [address], [place], [address], 12/30/2023 11:06:58 12/30/1912/30/2023 UA WITH CULTU RE IF INDIC ATED appearance Light turbid normal Not Available [facility] [address] [place] [address], [address], 12/30/2023 11:06:58 12/30/19 24 12/30/2023 UA WITH CULTU RE IF INDIC ATED glucose 1000 mg/dL normal abnormal Not Available [facility] [address] [place] [address], [address], 12/30/2023 11:06:58 12/30/1912/30/2023 UA WITH CULTU RE IF INDIC ATED bilirubin Negati ve mg/dL negati ve normal Not Available [facility] [address] [place] [address], [address], 12/30/2023 11:06:58 12/30/19 24 12/30/2023 UA WITH CULTU RE IF INDIC ATED ketone Negati ve mg/dL negati ve normal Not Available [facility] [address] [place] [address], [address], 12/30/2023 11:06:58 12/30/19 24 12/30/2023 UA WITH CULTU RE IF INDIC ATED specific gravity 1.034 1.003- 1.035 normal Not Available [facility] [address] [place] [address], [address], 12/30/2023 11:06:58 12/30/19 24 12/30/2023 UA WITH CULTU RE IF INDIC ATED blood 10 /uL negati ve abnormal Not Available [facility] [address] [place] [address], [address], 12/30/2023 11:06:58 12/30/1912/30/2023 UA WITH CULTU RE IF INDIC ATED pH 5 5.0 - 8.0 normal Not Available [facility] [address] [place] [address], [address], 12/30/2023 11:06:58 12/30/19 24 12/30/2023 UA WITH CULTU RE IF INDIC ATED protein Negati ve mg/dL negati ve normal Not Available [facility] [address] [place] [address], [address], 12/30/2023 11:06:58 12/30/19 24 12/30/2023 UA WITH CULTU RE IF INDIC ATED urobilinogen Normal mg/dL normal normal Not Available [facility] [address] [place] [address], [address], 12/30/2023 11:06:58 12/30/19 24 12/30/2023 UA WITH CULTU RE IF INDIC ATED nitrite Negati ve negati ve normal Not Available [facility] [address] [place] [address], [address], 12/30/2023 11:06:58 12/30/19 24 12/30/2023 UA WITH CULTU RE IF INDIC ATED leukocyte esterase Negati ve /uL negati ve normal Not Available [facility] [address] [place] [address], [address], 12/30/2023 11:06:58 12/30/19 24 12/30/2023 UA WITH CULTU RE IF INDIC ATED WBC, urine 10-20 0-5/hp f abnormal Not Available [facility] [address] [place] [address], [address], 12/30/2023 11:06:58 12/30/19 24 12/30/2023 UA WITH CULTU RE IF INDIC ATED RBC, urine 0-2 0-2/hp f normal Not Available [facility] [address] [place] [address], [address], 12/30/2023 11:06:58 12/30/19 24 12/30/2023 UA WITH CULTU RE IF INDIC ATED squamous epi. cells 0-5 0-5/hp f normal Not Available [facility] [address] [place] [address], [address], 12/30/2023 11:06:58 12/30/19 24 12/30/2023 UA WITH CULTU RE IF INDIC ATED bacteria 4+ /hpf none seen abnormal Not Available [facility] [address] [place], [address], 12/30/2023 11:06:58 12/30/19 24 12/30/2023 UA WITH CULTU RE IF INDIC ATED reflex culture see below normal Resul ts indic ate a urina ry tract infec tion. Cultu re added . Not Available [facility] [address] [place] [address], [address], 12/30/2023 11:06:58 12/30/19 24 12/30/2023 URINE CULTU RE klebsiella pneumoniae Organi sm: Klebsi ander pneumo niae Not Available [facility] [address] [place] [address], [address], 01/03/2024 10:02:59 12/30/19 24 01/03/2024 URINE CULTU RE urine culture abnormal ISOLA TE #1 COLON Y COUNT : > 100,0 00 CFU/M L Proba ble Gram Negat kaitlin Bacil angela; Burket tion In Progr ess. See Burket te Resul t(s) Below Klebs iella pneum oniae Not Available [facility] [address] [place], [address], 01/03/2024 10:02:59 12/30/19 24 01/03/2024 URINE CULTU RE amox/K clav'ate(C) <=8/4 ug/mL susceptib le Not Available [facility] [address] [place], [address], 01/03/2024 10:02:59 12/30/19 24 01/03/2024 URINE CULTU RE cefazolin <=2 ug/mL susceptib le Not Available [facility] [address] [place], [address], 01/03/2024 10:02:59 12/30/19 24 01/03/2024 URINE CULTU RE ceftazidime <=1 ug/mL susceptib le Not Available [facility] [address] [place] [address], [address], 01/03/2024 10:02:59 12/30/19 24 01/03/2024 URINE CULTU RE ceftriaxone <=1 ug/mL susceptib le Not Available [facility] [address] [place] [address], [address], 01/03/2024 10:02:59 12/30/19 24 01/03/2024 URINE CULTU RE cefuroxime <=4 ug/mL susceptib le Not Available [facility] [address] [place] [address], [address], 01/03/2024 10:02:59 12/30/19 24 01/03/2024 URINE CULTU RE ciprofloxaci n <=0.25 ug/mL susceptib le Not Available [facility] [address] [place] [address], [address], 01/03/2024 10:02:59 12/30/19 24 01/03/2024 URINE CULTU RE gentamicin <=4 ug/mL susceptib le Not Available [facility] [address] [place] [address], [address], 01/03/2024 10:02:59 12/30/19 24 01/03/2024 URINE CULTU RE imipenem <=1 ug/mL susceptib le Not Available [facility] [address] [place] [address], [address], 01/03/2024 10:02:59 12/30/19 24 01/03/2024 URINE CULTU RE levofloxacin <=0.5 ug/mL susceptib le Not Available [facility] [address] [place] [address], [address], 01/03/2024 10:02:59 12/30/19 24 01/03/2024 URINE CULTU RE nitrofuranto in <=32 ug/mL susceptib le Not Available [facility] [address] [place] [address], [address], 01/03/2024 10:02:59 12/30/19 24 01/03/2024 URINE CULTU RE piperacillin /olya <=16 ug/mL susceptib le Not Available [facility] [address] [place] [address], [address], 01/03/2024 10:02:59 12/30/19 24 01/03/2024 URINE CULTU RE tetracycline <=4 ug/mL susceptib le Not Available [facility] [address] [place] [address], [address], 01/03/2024 10:02:59 12/30/19 24 01/03/2024 URINE CULTU RE tobramycin <=2 ug/mL susceptib le Not Available [facility] [address] [place] [address], [address], 01/03/2024 10:02:59 12/30/19 24 01/03/2024 URINE CULTU RE trimeth/sulf a <=2/38 ug/mL susceptib le Not Available [facility] [address] [place] [address], [address], 01/03/2024 10:02:59 12/30/19 24 12/30/2023 urina lysis panel , auto Unknown Analyte Clean Catch Not Available [facility] Schedule [address] [place] [address], [address], 12/30/2023 09:37:40 12/30/19 24 12/30/2023 urina lysis panel , auto Unknown Analyte Yellow Not Available [facility] Schedule [address] [place] [address], [address], 12/30/2023 09:37:40 12/30/19 24 12/30/2023 urina lysis panel , auto Unknown Analyte Slight ly Hazy Not Available [facility] Schedule [address] [place], [address], 12/30/2023 09:37:40 12/30/19 24 12/30/2023 urina lysis panel , auto Unknown Analyte 1.015 Not Available [facility] Schedule [address] [place], [address], 12/30/2023 09:37:40 12/30/19 24 12/30/2023 urina lysis panel , auto Unknown Analyte 1.003- 1.035 Not Available [facility] Schedule [address] [place], [address], 12/30/2023 09:37:40 12/30/19 24 12/30/2023 urina lysis panel , auto Unknown Analyte 5.0 Not Available [facility] Schedule [address] [place], [address], 12/30/2023 09:37:40 12/30/19 24 12/30/2023 urina lysis panel , auto Unknown Analyte 5.0-8. 0 Not Available [facility] Schedule [address] [place], [address], 12/30/2023 09:37:40 12/30/19 24 12/30/2023 urina lysis panel , auto Unknown Analyte Negati ve Not Available [facility] Schedule [address] [place], [address], 12/30/2023 09:37:40 12/30/19 24 12/30/2023 urina lysis panel , auto Unknown Analyte Negati ve Not Available [facility] Schedule [address] [place], [address], 12/30/2023 09:37:40 12/30/19 24 12/30/2023 urina lysis panel , auto Unknown Analyte POSITI VE (Abnor mal) Not Available [facility] Schedule [address] [place], [address], 12/30/2023 09:37:40 12/30/19 24 12/30/2023 urina lysis panel , auto Unknown Analyte Negati ve Not Available [facility] Surgery Schedule [facility] [place], [address], 12/30/2023 09:37:40 12/30/19 24 12/30/2023 urina lysis panel , auto Unknown Analyte Negati ve Not Available [facility] Schedule [address] [place] [address], [address], 12/30/2023 09:37:40 12/30/19 24 12/30/2023 urina lysis panel , auto Unknown Analyte Negati ve Not Available [facility] Schedule [address] [place] [address], [address], 12/30/2023 09:37:40 12/30/19 24 12/30/2023 urina lysis panel , auto Unknown Analyte >1000 mg/dl Not Available [facility] Schedule [address] [place] [address], [address], 12/30/2023 09:37:40 12/30/19 24 12/30/2023 urina lysis panel , auto Unknown Analyte Normal Not Available [facility] Schedule [address] [place] [address], [address], 12/30/2023 09:37:40 12/30/19 24 12/30/2023 urina lysis panel , auto Unknown Analyte Negati ve Not Available [facility] Schedule [address] [place] [address], [address], 12/30/2023 09:37:40 12/30/19 24 12/30/2023 urina lysis panel , auto Unknown Analyte Negati ve Not Available [facility] Schedule [address] [place] [address], [address], 12/30/2023 09:37:40 12/30/19 24 12/30/2023 urina lysis panel , auto Unknown Analyte Normal Not Available [facility] Schedule [address] [place], [address], 12/30/2023 09:37:40 12/30/19 24 12/30/2023 urina lysis panel , auto Unknown Analyte Normal 1 mg/dl Not Available [facility] Schedule [address] [place], [address], 12/30/2023 09:37:40 12/30/19 24 12/30/2023 urina lysis panel , auto Unknown Analyte Negati ve Not Available [facility] Schedule [address] [place], [address], 12/30/2023 09:37:40 12/30/19 24 12/30/2023 urina lysis panel , auto Unknown Analyte Negati ve Not Available [facility] Schedule [address] [place], [address], 12/30/2023 09:37:40 12/30/19 24 12/30/2023 urina lysis panel , auto Unknown Analyte Negati ve Not Available [facility] Schedule [address] [place], [address], 12/30/2023 09:37:40 12/30/19 24 12/30/2023 urina lysis panel , auto Unknown Analyte Negati ve Not Available [facility] Schedule [address] [place], [address], 12/30/2023 09:37:40 01/28/20 24 01/28/2024 urina lysis panel , auto Unknown Analyte Clean Catch Not Available [facility] [address], [place], [address], 01/28/2024 13:18:47 01/28/20 24 01/28/2024 urina lysis panel , auto Unknown Analyte Yellow Not Available [facility] [address], [place], [address], 01/28/2024 13:18:47 01/28/20 24 01/28/2024 urina lysis panel , auto Unknown Analyte Clear Not Available [facility] [address], [place], [address], 01/28/2024 13:18:47 01/28/20 24 01/28/2024 urina lysis panel , auto Unknown Analyte 1.015 Not Available [facility] [address], [place], [address], 01/28/2024 13:18:47 01/28/20 24 01/28/2024 urina lysis panel , auto Unknown Analyte 1.003- 1.035 Not Available [facility] [address], [place], [address], 01/28/2024 13:18:47 01/28/20 24 01/28/2024 urina lysis panel , auto Unknown Analyte 5.0 Not Available [facility] [address], [place], [address], 01/28/2024 13:18:47 01/28/20 24 01/28/2024 urina lysis panel , auto Unknown Analyte 5.0-8. 0 Not Available Replaced by [facility] [address], [place], [address], 01/28/2024 13:18:47 01/28/20 24 01/28/2024 urina lysis panel , auto Unknown Analyte Negati ve Not Available [facility] [address], [place], [address], 01/28/2024 13:18:47 01/28/20 24 01/28/2024 urina lysis panel , auto Unknown Analyte Negati ve Not Available [facility] [address], [place], [address], 01/28/2024 13:18:47 01/28/20 24 01/28/2024 urina lysis panel , auto Unknown Analyte Negati ve Not Available [facility] [address], [place], [address], 01/28/2024 13:18:47 01/28/20 24 01/28/2024 urina lysis panel , auto Unknown Analyte Negati ve Not Available [facility] [address], [place], [address], 01/28/2024 13:18:47 01/28/20 24 01/28/2024 urina lysis panel , auto Unknown Analyte Negati ve Not Available [facility] [address], [place], [address], 01/28/2024 13:18:47 01/28/20 24 01/28/2024 urina lysis panel , auto Unknown Analyte Negati ve Not Available [facility] [address], [place], [address], 01/28/2024 13:18:47 01/28/20 24 01/28/2024 urina lysis panel , auto Unknown Analyte >1000 mg/dl Not Available [facility] [address], [place], [address], 01/28/2024 13:18:47 01/28/20 24 01/28/2024 urina lysis panel , auto Unknown Analyte Normal Not Available [facility] [address], [place], [address], 01/28/2024 13:18:47 01/28/2001/28/2024 urina lysis panel , auto Unknown Analyte Negati ve Not Available [facility] [address], [place], [address], 01/28/2024 13:18:47 01/28/20 24 01/28/2024 urina lysis panel , auto Unknown Analyte Negati ve Not Available [facility] [address], [place], [address], 01/28/2024 13:18:47 01/28/20 24 01/28/2024 urina lysis panel , auto Unknown Analyte Normal Not Available [facility] [address], [place], [address], 01/28/2024 13:18:47 01/28/20 24 01/28/2024 urina lysis panel , auto Unknown Analyte Normal 1 mg/dl Not Available [facility] [address], [place], [address], 01/28/2024 13:18:47 01/28/20 24 01/28/2024 urina lysis panel , auto Unknown Analyte Negati ve Not Available [facility] [address], [place], [address], 01/28/2024 13:18:47 01/28/20 24 01/28/2024 urina lysis panel , auto Unknown Analyte Negati ve Not Available [facility] [address], [place], [address], 01/28/2024 13:18:47 01/28/20 24 01/28/2024 urina lysis panel , auto Unknown Analyte Negati ve Not Available [facility] [address], [place], [address], 01/28/2024 13:18:47 01/28/20 24 01/28/2024 urina lysis panel , auto Unknown Analyte Negati ve Not Available [facility] [address], [place], [address], 01/28/2024 13:18:47 Result Notes None recorded. Problems Name Problem SNOMED Code Status Onset Date Resolution Date Notes Provider Name and Address Organization Details Recorded Time Overactive urinary bladder 147067404 Active 024 JOSE AMIN MD [address] [place] [address], [address] [place] [address] 15:59:10 Problem Notes None recorded. Procedures Surgical History Date Name Laterality Status Provider Name and Address Organization Details Recorded Time cholecystectomy completed [facility] 11/22/2023 14:47:43 Carpal tunnel surgery completed [facility] 11/22/2023 14:47:59 hernia repair completed [facility] 11/22/2023 14:48:23 biopsy completed [facility] 11/22/2023 14:48:59 Tubal Ligation completed [facility] 11/22/2023 14:49:07 procedure on finger completed [facility] 11/22/2023 14:49:32 Cerebral Aneurysm completed Anthony Richards [facility] 11/22/2023 14:50:43 Imaging Results None recorded. Procedure Notes None recorded. Medical Equipment None Reported. Allergies Allergen ID Allergen Name Allergen Category Reaction Reaction Severity Criticality Documentation Date Start Date Code Code System Note Provider Name and Address Organization Details Recorded Time [id number] Ozempic medicatio n Not available Not available Not available 11/22/2023 RxNorm Anthony Richards [facility] 14:43:39 Medications Name Sig Start Date Stop [...] and Address Organization Details Last Updated DateTime 11/22/2023 165.1 cm 30.6 kg/m2 71827 g Anthony Richards [facility] 11/22/2023 14:40:59 Date Recorded Body height Body mass index (BMI) Body weight Provider Name and Address Organization Details Last Updated DateTime 01/28/2024 165.1 cm 30.6 kg/m2 11271 g Jacinta Villatoro [facility] 01/28/2024 11:07:04 Date Recorded Body height Body mass index (BMI) Body weight Provider Name and Address Organization Details Last Updated DateTime 06/15/2024 165.1 cm 30 kg/m2 75507.63 g Torie Mccoy [facility] 06/15/2024 16:02:09 Social History Question Answer Notes LastModified by Organizat ion Details LastModified Time Tobacco Smoking Status Never Smoker Anthony brock [facility] 11/22/2023 14:47:17 What Was The Date Of Your Most Recent Tobacco Screening? 06/15/2024 Information not available 06/15/2024 What Is Your Relationship Status? [email or web address] Information not available 11/22/2023 Has Tobacco Cessation Counseling Been Provided? No [email or web address] Information not available 11/22/2023 Sex: Unknown Functional Status Question Answer Note LastModified by Organizat ion Details LastModified Time Do you use any illicit or recreational drugs? No [email or web address] Information not available 11/22/2023 Do you or have you ever used any other forms of tobacco or nicotine? No [email or web address] Information not available 11/22/2023 What is your level of alcohol consumption? None [email or web address] Information not available 11/22/2023 Are you currently employed? No retired [email or web address] Information not available 11/22/2023 Mental Status None recorded. Family History Relationship Description Onset Age of this Age Resolved Age Notes LastModified by Organization Details LastModified Time Father No current problems or disability [email or web address] Not available 14:47:07 Mother No current problems or disability [email or web address] Not available 14:47:07 Medical History Condition Response Arthritis Y Stroke Y Anemia Y Diabetes Y Hypertension Y Gynecological HistoryNo gynecological history recorded. Obstetrics History GPAL:G 0 P 0 0 0 0 Past Encounters Encounter ID Performer Location Encounter Start Date Encounter Closed Date Diagnosis/Indication Diagnosis SNOMED-CT Code Diagnosis ICD10 Code Diagnosis Note [id number] MD WILLIAM MONTANEZ [facility] [address] [address] 11/22/2023 15:47:47 11/22/2023 16:02:55 Overactive urinary bladder 713737176 N32.81 Urge incon tinence of urine 69169695 N39.41 [id number] JOSE AMIN MD SURGERY SCHEDULE [address] [place] [address] 12/30/2023 08:00:22 12/30/2023 08:00:43 Postoperative pain 048390975 G89.18 [id number] JOSE AMIN MD [facility] [address] [address] 01/28/2024 10:00:18 01/28/2024 11:10:43 Overactive urinary bladder 700415735 N32.81 Urge incon tinence of urine 43282119 N39.41 [id number] JOSE AMIN MD [facility] [address] [place] [address],[place] [address] 06/15/2024 15:41:59 06/15/2024 16:23:09 Overactive urinary bladder 056170052 N32.81 - Initiate trazodone. - Consider Botox if symptoms persist. - Monitor trospium efficacy. - Discuss consent for Botox. Urge incon tinence of urine 80633633 N39.41 - Trospium prescribed . - Possible Botox as backup. - Inform patient on Botox details. - Consent for Botox if chosen. Health Concerns Section Related Observation LastModified by Organization Detai ls LastModified Time None Recorded Concern Status LastModified by Organization Details LastModified Time None Recorded Advance Directives Directive None Recorded Payers Insurance Date Sequence Insurance Name Policy Number Policy Batista Covered Member ID Batista Member ID Guarantor Name 06/12/2024 1 [place] Rosa Huston Kamala [id number] Rosa L Kamala 06/12/2024 2 [place] [id number] Rosa Kamala [id number] Rosa Huston Kamala Notes Date Note Type Note Provider Name and Address Organization Details Recorded Time 11/22/2023 text/html 72-year-old margareth aragon in the office for my initial evaluation and for discussion of IntraStim neurostimulator removal. She has an InterStim bladder stimulator placed in 2018. She has not been seeing clinical satisfaction from hardware and reports soreness related to it. No hesitancy. She reports urgency which she manages with protective pads. Daytime frequency every 1-2 hours. Nocturia 1 time. No gross hematuria. No dysuria. She states she needs MRI. JOSE AMIN MD [address] [place] [address], [phone], [facility] 11/28/2023 11:32:03 01/28/2024 text/html 73-year-old margareth aragon in the office for follow-up evaluation status post InterStim neurostimulator removal. She has an InterStim bladder stimulator placed in 2018. Hardware was removed on 12/30/2023 due to lack of clinical benefit and soreness. She is currently taking solifenacin for overactive bladder symptoms. She reports stable lower urinary symptoms with frequency every 2 hours and nocturia once nightly. She has occasional hesitancy. No hematuria or dysuria. JOSE AMIN MD [address] [place] [address] [place], [address], [facility] 01/30/2024 09:04:23 06/15/2024 text/html - The patient is a [...] treatment for the condition. JOSE AMIN MD [address] [place] [address], [phone], [facility] 06/16/2024 08:49:30 OBGyn Episode No OBEpisode recorded.
--- OUTSIDE RECORDS SUMMARY | 2024-06-29 19:28 | XMS_ITS | Data Portability ---
Author Organization [facility] LALO Pittman ADMIN Address [address] [place] [phone] Care Team Providers Care General Foreman Name Role Phone TOMMIE WOODS JR Referring Provider DARIELA LOCKETT Primary Care Provider Assessment Encounter Date Assessment Date Assessment LastModified by Organization Details LastModified Time 09/30/2022 09/30/2022 Will start Gemtesa 75 mg daily, sample pack given. Phone visit in 6 weeks for update on her response to treatment. Briefly discussed InterStim removal which I do not feel is strongly indicated at this time. [email or web address] Not available 09/30/2022 15:09:06 11/16/2022 11/16/2022 The patient has had an excellent response to Gemtesa. we will continue this medication and will provide sample medication until we can get her prescription settled. We will see her at six-month intervals as a basis. [email or web address] Not available 11/16/2022 13:55:22 Plan of Treatment Reminders Order Date Submit Date Provider Last Modified By Organization Details Last Modified Time Details Appointments None recorded. Lab urinalysis, dipstick 2023 024 [email or web address] [facility], [address] [place] [address], [address], [place], [address], 4 10:55:38 urinalysis, dipstick 2022 023 [email or web address] [facility], [address] [place] [address], [address], [place], [address], 3 15:11:33 Referral None recorded. Procedures None recorded. Surgeries None recorded. Imaging None recorded. Medication Orders oxybutynin chloride ER 15 mg tablet,exte nded release 24 hr 2023 024 CHRIS Sams [facility], [address] [place], [address], 4 10:53:39 Gemtesa 75 mg tablet 2022 023 CHRIS Merinocarmina [facility], [address] [place], [address], 13:53:03 Patient TargetsNo targets recorded. Patient InstructionsNo instructions recorded. Reason for Referral None Reported. Results Created Date Observation Date Name Description Value Unit Range Abnormal Flag Note LastModifiedBy Organization Detail LastModifiedTime 10/01/1909/30/2022 urina lysis , dipst ick Leukocytes (reference range) negati ve Not Available [facility] [address] [place] [address], [phone], 09/30/2022 14:13:10/01/1909/30/2022 urina lysis , dipst ick Nitrite (reference range:) negati ve Not Available [facility] [address] [place] [address], [address], 09/30/2022 14:13:10/01/1909/30/2022 urina lysis , dipst ick Urobilinogen (reference range) 0.2 Not Available [facility] [address] [place] [address], [address], 09/30/2022 14:13:10/01/1909/30/2022 urina lysis , dipst ick Protein (reference range) negati ve Not Available [facility] [address] [place] [address], [address], 09/30/2022 14:13:09 10/01/1909/30/2022 urina lysis , dipst ick pH (reference range 5-8.5) 6.5 Not Available [facility] [address] [place] [address] [address], [place], [address], 09/30/2022 14:13:09 10/01/1909/30/2022 urina lysis , dipst ick Blood (reference range:) negati ve Not Available [facility] [address] [place] [address] [address], [place], [address], 09/30/2022 14:13:09 10/01/1909/30/2022 urina lysis , dipst ick Specific Spencer (reference range) 1.015 Not Available [facility], [place], [address], 09/30/2022 14:13:09 10/01/1909/30/2022 urina lysis , dipst ick Ketone (reference range) negati ve Not Available [address], [place], [address], 09/30/2022 14:13:09 10/01/1909/30/2022 urina lysis , dipst ick Bilirubin (reference range) negati ve Not Available [address], [place], [address], 09/30/2022 14:13:09 10/01/1909/30/2022 urina lysis , dipst ick Glucose (reference range) negati ve Not Available [address], [place], [address], 09/30/2022 14:13:09 10/01/1909/30/2022 urina lysis , dipst ick Color (reference range: yellow-brown ) Yellow Not Available [facility] [address], [place], [address], 09/30/2022 14:13:09 05/18/19 24 05/18/2023 urina lysis , dipst ick Leukocytes (reference range) negati ve Not Available [facility] [address] [place] [address] [address], [place], [address], 05/18/2023 10:38:41 05/18/19 24 05/18/2023 urina lysis , dipst ick Nitrite (reference range:) negati ve Not Available [address], [place], [address], 05/18/2023 10:38:41 05/18/19 24 05/18/2023 urina lysis , dipst ick Urobilinogen (reference range) 0.2 Not Available [facility] [address], [place], [address], 05/18/2023 10:38:41 05/18/19 24 05/18/2023 urina lysis , dipst ick Protein (reference range) negati ve Not Available [address], [place], [address], 05/18/2023 10:38:41 05/18/19 24 05/18/2023 urina lysis , dipst ick pH (reference range 5-8.5) 5.0 Not Available [facility] [address] [place] [address] [address], [place], [address], 05/18/2023 10:38:41 05/18/19 24 05/18/2023 urina lysis , dipst ick Blood (reference range:) negati ve Not Available [address], [place], [address], 05/18/2023 10:38:41 05/18/19 24 05/18/2023 urina lysis , dipst ick Specific Spencer (reference range) 1.010 Not Available [address], [address], 05/18/2023 10:38:41 05/18/19 24 05/18/2023 urina lysis , dipst ick Ketone (reference range) negati ve Not Available [address], [address], 05/18/2023 10:38:41 05/18/19 24 05/18/2023 urina lysis , dipst ick Bilirubin (reference range) negati ve Not Available [address], [address], 05/18/2023 10:38:41 05/18/19 24 05/18/2023 urina lysis , dipst ick Glucose (reference range) negati ve Not Available [address], [address], 05/18/2023 10:38:41 05/18/19 24 05/18/2023 urina lysis , dipst ick Color (reference range: yellow-brown ) Yellow Not Available [address], [address], 05/18/2023 10:38:41 Result Notes None recorded. Problems No Known Problems Medical Equipment None Reported. Allergies No known drug allergies Medications Name Sig Start Date Stop Date Status Note LastModified by Organization Details LastModified Time amoxicillin 500 mg capsule active Not Available Not Available Not Available furosemide 40 mg tablet active Not Available Not Available Not Available primidone 50 mg tablet TAKE 1 TABLET BY MOUTH AT BEDTIME active Not Available Not Available No t Available promethazin e-DM 6.25 mg-15 mg/5 mL oral syrup active Not Available Not Available Not Available carvedilol 25 mg tablet TAKE 1 TABLET BY MOUTH TWICE DAILY active Not Available Not Available No t Available oxybutynin chloride ER 15 mg tablet,exte nded release 24 hr Take 1 tablet every day by oral route for 30 days. active Not Available Not Available No t Available cefuroxime axetil 250 mg tablet TAKE 1 TABLET BY MOUTH EVERY 12 HOURS FOR 7 DAYS 09/30 completed Not Available Not Available Not Available carvedilol 12.5 mg tablet active Not Available Not Available Not Available nabumetone 750 mg tablet TAKE 2 TABLETS BY MOUTH ONCE DAILY 09/30 completed Not Available Not Available Not Available azithromyci n 250 mg tablet 05/17 completed Not Available Not Available Not Available fluconazole 150 mg tablet 05/17 completed Not Available Not Available Not Available benzonatate 200 mg capsule 05/17 completed Not Available Not Available Not Available hydrocodone 5 mg-acetamin ophen 325 mg tablet active Not Available Not Available No t Available prochlorper azine maleate 5 mg tablet 05/17 completed Not Available Not Available Not Available ondansetron HCl 4 mg tablet 05/17 completed Not Available Not Available Not Available prednisone 20 mg tablet 05/17 completed Not Available Not Available Not Available clonazepam 1 mg tablet TAKE 1 TABLET BY MOUTH TWICE DAILY NEEDED active Not Available Not Available No t Available potassium chloride ER 10 mEq tablet,exte nded release 05/17 completed Not Available Not Available Not Available metronidazo le 500 mg tablet 05/17 completed Not Available Not Available Not Available amlodipine 5 mg tablet TAKE 1 TABLET BY MOUTH ONCE DAILY active Not Available Not Available No t Available amitriptyli ne 25 mg tablet TAKE 1 TABLET BY MOUTH AT BEDTIME active Not Available Not Available No t Available hydrocodone -homatropin e 5 mg-1.5 mg tablet TAKE 1 TABLET BY MOUTH EVERY 6 HOURS NEEDED active Not Available Not Available No t Available amlodipine 10 mg tablet 05/17 completed Not Available Not Available Not Available dexamethaso ne 2 mg tablet 05/17 completed Not Available Not Available Not Available pantoprazol e 40 mg tablet,lisa yed release TAKE 1 TABLET BY MOUTH EVERY DAY active Not Available Not Available No t Available hyoscyamine 0.125 mg sublingual tablet active Not Available Not Available Not Available guanfacine 1 mg tablet active Not Available Not Available Not Available candesartan 32 mg tablet TAKE 1 TABLET BY MOUTH ONCE DAILY active Not Available Not Available No t Available triamterene 37.5 mg-hydrochl orothiazide 25 mg tablet 09/30 completed Not Available Not Available Not Available montelukast 10 mg tablet 09/30 completed Not Available Not Available Not Available hydrochloro thiazide 25 mg tablet TAKE 1 TABLET BY MOUTH ONCE DAILY 05/17 completed Not Available Not Available Not Available ibuprofen 600 mg tablet active Not Available Not Available Not Available cefuroxime axetil 500 mg tablet 05/17 completed Not Available Not Available Not Available methylpredn isolone 4 mg tablets in a dose pack 09/30 completed Not Available Not Available Not Available albuterol sulfate HFA 90 mcg/actuati on aerosol inhaler active Not Available Not Available Not Available pioglitazon e 30 mg tablet TAKE 1 TABLET BY MOUTH ONCE DAILY active Not Available Not Available No t Available guanfacine 2 mg tablet TAKE 1 TABLET BY MOUTH AT BEDTIME 05/17 completed Not Available Not Available Not Available bromphenira mine-pseudo ephedrine-D M 2 mg-30 mg-10 mg/5 mL oral syrup 05/17 completed Not Available Not Available Not Available ondansetron 4 mg disintegrat ing tablet 05/17 completed Not Available Not Available Not Available cefdinir 300 mg capsule 05/17 completed Not Available Not Available Not Available fluticasone propionate 50 mcg/actuati on nasal spray,suspe nsion active Not Available Not Available Not Available dicyclomine 10 mg capsule 09/30 completed Not Available Not Available Not Available rosuvastati n 10 mg tablet TAKE 1 TABLET BY MOUTH AT BEDTIME active Not Available Not Available No t Available rosuvastati n 20 mg tablet 09/30 completed Not Available Not Available Not Available Januvia 100 mg tablet TAKE 1 TABLET BY MOUTH EVERY DAY active Not Available Not Available No t Available diclofenac 1 % topical gel APPLY 4 GRAMS TO AFFECTED AREA UP TO 4 TIMES DAILY 09/30 completed Not Available Not Available Not Available candesartan 32 mg-hydrochl orothiazide 25 mg tablet active Not Available Not Available Not Available sodium,pota ssium,mag sulfates 17.5 gram-3.13 gram-1.6 gram oral soln 09/30 completed Not Available Not Available Not Available Trintellix 20 mg tablet active Not Available Not Available Not Available Synjardy XR 12.5 mg-1,000 mg tablet, extended release TAKE 2 TAB(S) ORALLY ONCE A DAY 30 DAY(S) active Not Available Not Available No t Available Gemtesa 75 mg tablet Take 1 tablet every day by oral route for 30 days. active Not Available Not Available No t Available Kerendia 10 mg tablet 09/30 completed Not Available Not Available Not Available Kerendia 20 mg tablet active Not Available Not Available No t Available Paxlovid 300 mg (150 mg x 2)-100 mg tablets in a dose pack FOLLOW PACKAGE DIRECTION S 05/17 completed Not Available Not Available Not Available Clenpiq 10 mg-3.5 gram-12 gram/175 mL oral solution active Not Available Not Available Not Available Vitals Date Recorded Body height Body mass index (BMI) Body weight Systolic blood pressure Diastolic blood pressure Provider Name and Address Organization Details Last Updated DateTime 09/30/2022 165.1 cm 34.1 kg/m2 20527.44 g 120 mm[Hg] 70 mm[Hg] Yenni Jiang [facility] [place] 3 14:14:18 Date Recorded Body height Body mass index (BMI) Body weight Body temperature Systolic blood pressure Diastolic blood pressure Provider Name and Address Organization Details Last Updated DateTime 4 165.1 cm 34.1 kg/m2 16425.4 4 g 97.7 [degF] 120 mm[Hg] 76 mm[Hg] Cony Lopez [facility] [place] 4 10:38:11 Social History None recorded. Functional Status None recorded. Mental Status None recorded. Family History Relationship Description Onset Age of this Age Resolved Age Notes LastModified by Organization Details LastModified Time Father Myocardial infarction pt. added direct ly (09/27) [email or web address] Not available 09/27/2022 13:52:00 Medical History No medical history recorded. Gynecological HistoryNo gynecological history recorded. Obstetrics History GPAL:G 0 P 0 0 0 0 Past Encounters Encounter ID Performer Location Encounter Start Date Encounter Closed Date Diagnosis/Indication Diagnosis SNOMED-CT Code Diagnosis ICD10 Code Diagnosis Note [id number] Jamshid Martel MD [facility] [address] [place] [address] 02/25/2022 09:26:18 02/25/2022 09:54:53 [id number] Ebenezer Calero MD [facility] [address] [place] [address],[address] [place] [address] 09/30/2022 13:58:14 09/30/2022 15:19:08 Female stress incontinence 62485285 N39.3 Nocturia 251396327 R35.1 [id number] Ebenezer Calero MD [facility] [address] [place] [address],[address] [place] [address] 11/16/2022 13:43:46 11/16/2022 13:50:45 Female stress incontinence 39520388 N39.3 Nocturia 556361988 R35.1 [id number] Mindy Angel NP, S [facility] [address] [place] [address],[address] [place] [address] 05/18/2023 10:18:17 05/18/2023 10:49:35 Female stress incontinence 44156186 N39.3 Nocturia 446548941 R35.1 Mixed urin amy incontinence 146186862 N39.46 UA clearStart Oxybutynin 15mg daily. Discussed possible SEs of the medication RTC in 3 months for f/u of Oxybutynin treatment Health Concerns Section Related Observation LastModified by Organization Detai ls LastModified Time None Recorded Concern Status LastModified by Organization Details LastModified Time None Recorded Advance Directives Directive None Recorded Payers Insurance Date Sequence Insurance Name Policy Number Policy Batista Covered Member ID Batista Member ID Guarantor Name 08/28/2023 1 [place] Rosa Huston Kamala [id number] Rosa Salcedop 08/28/2023 2 [place] ([place]) [id number] Westley Kamala [id number] Rosa Salcedop Notes Date Note Type Note Provider Name and Address Organization Details Recorded Time 09/30/2022 text/html The patient returns to clinic today for follow-up of incontinence. She has had an InterStim placed in 2018 and has chronic back and hip pain. She is concerned that her InterStim could be causing some of the pain although her pain has been chronic. She does not feel the device is working and wears 1 pad per day and depends undergarment at night with 1 time per night nocturia.She is not experiencing any dysuria or hematuria. Last seen yowf RTC for f/u of low back pain and right hip pain. Patient had a CT scan of pelvis without contrast performed on 11/26/2020 and no acute process was found. Patient had an InterStim placed in 2018. Patient reports her hip and back pain has much improved after she received injection. Patient reports she does not feel like her inter stem helped her LUTS symptoms however the patient reports urinary incontinence 1 time per day and nocturia times 0. She denies any dysuria or gross hematuria. Ebenezer Calero MD [address], [place], [address], [facility] & [place] 09/30/2022 15:09:28 11/16/2022 text/html Phone consult Telephone consultation conducted with patient today. Patient gives informed consent and 100% of consult spent counseling patient, reviewing records and implementing treatment plan. Consult begins at 1:43 p.m. and ends at 1:48 p.m. The patient has a history of chronic overactive bladder and was recently started on Gemtesa. she states that she loves the medication and finds it is effects and results amazing. She is having much less incontinence and is noting minimal wetness/dampness on her depends undergarment at the end of her night. She is had no side effects on the medication and is quite pleased with her success. See Below past medical history: Ebenezer Calero MD [address], [place], [address], [facility] & [place] 11/16/2022 13:55:54 05/18/2023 text/html 72 yowf presents to clinic with worsening of mixed urinary incontinence. Pt had been on Gemtesa 75mg daily; however, states she had to quit taking the medication r/t it was causing her urinary hesitancy. H/o Interstim placed in 2018, states it never helped with her leakage. Urinary stream is good. Nocturia x1. Denies any dysuria or gross hematuria. No h/o glaucoma. Pt is a DM, states blood sugars are under control. Mindy Angel, SCIENTIFIC RESEARCH MANAGER, [address], [place], [address], [facility] [place] [facility] [place] 05/18/2023 10:53:04 OBGyn Episode No OBEpisode recorded.
--- OUTSIDE RECORDS SUMMARY | 2024-06-29 19:28 | XMS_ITS | Data Portability ---
Author Organization [place] [facility], [facility] Address [address] [place] [address] Assessment Encounter Date Assessment Date Assessment LastModified by Organization Details LastModified Time 07/21/2023 07/21/2023 This patient was a new patient that was seen in our [place] office. Approximately 2 months ago the patient fell and sustained a compression fracture with 30% compression deformity of the superior endplate of L1. This was found on x-ray and CT scan. The patient is unable to have an MRI because of a bladder stimulator. Also patient cannot have a CT with contrast because of poor kidney function. We did do a CT with contrast along with a plain x-ray both of which confirmAcute superior endplate compression deformity of L1. Patient is not on any anticoagulation. She does have a back brace. She is continued with all conservative treatments. She is also on pain medication which is helping some however she still has significant pain. She is tender over the L1 vertebral body. We will plan on L1 balloon kyphoplasty to be done in the [place] office. Will plan on doing this next week. abux Not available 07/21/2023 17:38:50 07/28/2023 07/28/2023 This patient had an L1 kyphoplasty done today. This was a balloon kyphoplasty we did note significant reduction. Patient did have some soreness on the right side after the procedure. We will call her in some prednisone 20 mg twice a day for 5 days along with Percocet 10 mg 1 tablet every 4-6 hours as needed. I will give her 30 tablets. Bhavik and drug screen are all appropriate. abux Not available 07/28/2023 17:31:53 Plan of Treatment Reminders Order Date Submit Date Provider Last Modified By Organization Details Last Modified Time Details Appointments None recorded. Lab None recorded. Referral None recorded. Procedures None recorded. Surgeries kyphoplasty (SURG) 2023 024 [email or web address] Not available 15:58:15 Imaging None recorded. Medication Orders prednisone 20 mg tablet 2023 024 CHRIS [facility], [address] [place], [address], 4 09:11:49 Percocet 10 mg-325 mg tablet 2023 024 CHRIS [facility]inocar[facility], [address] [place], [address], 4 09:11:48 Patient TargetsNo targets recorded. Patient InstructionsNo instructions recorded. Reason for Referral None Reported. Results Created Date Observation Date Name Description Value Unit Range Abnormal Flag Note LastModifiedBy Organization Detail LastModifiedTime 07/23/19 24 11/05/2021 CT, angio gram, head + neck, w/wo contr ast No observ ation record ed. Not Available 2023 09:07:11 Result Notes None recorded. Problems Name Problem SNOMED Code Status Onset Date Resolution Date Notes Provider Name and Address Organization Details Recorded Time Compression fracture of lumbar spine 470607824 Active 2023 Cameron Hatfield MD [address], [address], [place] [facility] 17:32:06 Problem Notes None recorded. 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 CESIA SANTIZO [place] [facility] 07/19/2023 09:48:24 Carpal tunnel surgery completed CESIA SANTIZO [place] [facility] 07/19/2023 09:48:31 hernia repair completed CESIA SANTIZO [place] [facility] 07/19/2023 09:48:37 Ligation/bx temporal artery completed CESIA SANTIZO [place] [facility] 07/19/2023 09:48:50 cholecystectomy completed CESIA SANTIZO [place] [facility] 07/19/2023 09:48:54 colonoscopy completed CESIA SANTIZO [place] [facility] 07/19/2023 09:49:03 Imaging Results Imaging Date Name Status LastModified by Organiz ation Details LastModified Time 11/05/2021 CT, angiogram, head + neck, w/wo contrast completed Information not available 07/23/2023 09:07:11 Procedure Notes None recorded. Medical Equipment None Reported. Allergies No known drug allergies Medications Name Sig Start Date Stop Date Status Note LastModified by Organization Details LastModified Time amoxicillin 500 mg capsule 07/18 completed Not Available Not Available Not Available promethazin e-DM 6.25 mg-15 mg/5 mL oral syrup 07/18 completed Not Available Not Available Not Available carvedilol 25 mg tablet 07/18 completed Not Available Not Available Not Available oxybutynin chloride ER 15 mg tablet,exte nded release 24 hr active Not Available Not Available Not Available carvedilol 12.5 mg tablet active Not Available Not Available Not Available tizanidine 2 mg tablet active Not Available Not Available Not Available azithromyci n 250 mg tablet 07/18 completed Not Available Not Available Not Available fluconazole 150 mg tablet 07/18 completed Not Available Not Available Not Available benzonatate 200 mg capsule 07/18 completed Not Available Not Available Not Available hydrocodone 5 mg-acetamin ophen 325 mg tablet active Not Available Not Available No t Available prednisone 20 mg tablet Take 1 tablet twice a day by oral route for 5 days. active Not Available Not Available No t Available clonazepam 1 mg tablet active Not Available Not Available Not Available metronidazo le 500 mg tablet 07/18 completed Not Available Not Available Not Available amlodipine 5 mg tablet active Not Available Not Available Not Available aspirin 81 mg tablet,lisa yed release Take 1 tablet every day by oral route. active Not Available Not Available No t Available amitriptyli ne 25 mg tablet active Not Available Not Available Not Available hydrocodone -homatropin e 5 mg-1.5 mg tablet TAKE 1 TABLET BY MOUTH EVERY 6 HOURS NEEDED 07/18 completed Not Available Not Available Not Available Percocet 10 mg-325 mg tablet Take 1 tablet every 4-6 hours by oral route. 2023 active Not Available Not Available Not Avai lable amlodipine 10 mg tablet 07/18 completed Not Available Not Available Not Available dexamethaso ne 2 mg tablet 07/18 completed Not Available Not Available Not Available cephalexin 500 mg capsule 07/18 completed Not Available Not Available Not Available pantoprazol e 40 mg tablet,lisa yed release active Not Available Not Available Not Available hyoscyamine 0.125 mg sublingual tablet 07/18 completed Not Available Not Available Not Available guanfacine 1 mg tablet active Not Available Not Available Not Available candesartan 32 mg tablet 07/18 completed Not Available Not Available Not Available gabapentin 300 mg capsule active Not Available Not Available Not Available triamterene 37.5 mg-hydrochl orothiazide 25 mg tablet 07/18 completed Not Available Not Available Not Available ibuprofen 600 mg tablet active Not Available Not Available Not Available cefuroxime axetil 500 mg tablet active Not Available Not Available No t Available albuterol sulfate HFA 90 mcg/actuati on aerosol inhaler 07/18 completed Not Available Not Available Not Available pioglitazon e 30 mg tablet active Not Available Not Available Not Available bromphenira mine-pseudo ephedrine-D M 2 mg-30 mg-10 mg/5 mL oral syrup 07/18 completed Not Available Not Available Not Available ondansetron 4 mg disintegrat ing tablet 07/18 completed Not Available Not Available Not Available cefdinir 300 mg capsule 07/18 completed Not Available Not Available Not Available [...] Available Not Available Gemtesa 75 mg tablet 07/18 completed Not Available Not Available Not Available Kerendia 10 mg tablet active Not Available Not Available No t Available Kerendia 20 mg tablet 07/18 completed Not Available Not Available Not Available Paxlovid 300 mg (150 mg x 2)-100 mg tablets in a dose pack FOLLOW PACKAGE DIRECTION S 07/18 completed Not Available Not Available Not Available Clenpiq 10 mg-3.5 gram-12 gram/175 mL oral solution 07/18 completed Not Available Not Available Not Available Vitals Date Recorded Body height Body mass index (BMI) Body weight Provider Name and Address Organization Details Last Updated DateTime 07/21/2023 165.1 cm 32.3 kg/m2 70254.92 g Griselda Cortez [place] [facility] 07/21/2023 13:34:12 Date Recorded Body height Body mass index (BMI) Body weight Oxygen saturation Oxygen saturation in Arterial blood by Pulse oximetry Heart rate Systolic blood pressure Diastolic blood pressure Provider Name and Address Organization Details Last Updated DateTime 165.1 cm 32.3 kg/m2 33553.9 2 g 96 % 96 % 60 /min 112 mm[Hg] 60 mm[Hg] CESIA SANTIZO [place] [facility] 13:32:03 Social History Question Answer Notes LastModified by [employer] Details LastModified Time Tobacco Smoking Status Never Smoker CESIA SANTIZO null, [place] [facility] 07/19/2023 09:49:17 In The 14 Days Before Symptom Onset, Have You Had Close Contact With A Laboratory-confirm ed COVID-19 While That Case Was Ill? No Information n ot available 07/19/2023 In The 14 Days Before Symptom Onset, Have You Had Close Contact With A Person Who Is Under Investigation For COVID-19 While That Person Was Ill? No Information not available 07/19/2023 Have You Been To An Area Known To Be High Risk For COVID-19? No [email or web address] Information not available 07/19/2023 Sex: Unknown Functional Status Question Answer Note LastModified by [employer] ion Details LastModified Time Do you use any illicit or recreational drugs? No [email or web address] Information not available 07/19/2023 Do you or have you ever used any other forms of tobacco or nicotine? No [email or web address] Information not available 07/19/2023 What is your level of alcohol consumption? None [email or web address] Information not available 07/19/2023 Mental Status None recorded. Family History Nothing Reported. Medical History Condition Response Coronary Artery Disease N Gout N Head Trauma/Injury N Hernia N Thyroid Problems N Depression Y COPD N Anemia N Ulcers N Heart Attack ([place]) N Diabetes Y Anxiety Disorder N Bleeding Disorder N Arthritis N Tuberculosis N AIDS/HIV N Acid Reflux (GERD) N Cancer N Stroke N Asthma N Substance Abuse N Back Injury N High Cholesterol N Hepatitis N Liver Disease N Heart Disease N Headaches N Fibromyalgia N Hypertension Y Osteoporosis N Kidney Disease Y Gynecological HistoryNo gynecological history recorded. Obstetrics History GPAL:G 0 P 0 0 0 0 Past Encounters Encounter ID Performer Location Encounter Start Date Encounter Closed Date Diagnosis/Indication Diagnosis SNOMED-CT Code Diagnosis ICD10 Code Diagnosis Note [id number] Cameron Hatfield MD [address] [place] [address] 07/21/2023 13:23:28 07/21/2023 14:17:16 Degeneration of lumbar intervertebral disc 51734477 M51.36 Compressio n fracture of lumbar spine 858545862 M48.56XA Lumbar radiculopathy 128 248039 M54.16 Lumbar spondylosis 80400 0009 M47.896 [id number] Cameron Hatfield MD [address] [place] [address] 07/28/2023 13:04:24 07/28/2023 17:13:51 Compression fracture of lumbar spine 375043201 M48.56XA Health Concerns Section Related Observation LastModified by Organization Detai ls LastModified Time None Recorded Concern Status LastModified by Organization Details LastModified Time None Recorded Advance Directives Directive None Recorded Payers Encounter Date Sequence Insurance Name Policy Number Policy Batista Covered Member ID Batista Member ID Guarantor Name 07/21/2023 2 [place] [id number] Westley Kamala [id number] Rosa Kamala 07/21/2023 1 [place] Rosa Robel Kamala [id number] Rosa Kamala 07/28/2023 2 [place] [id number] Westley Wray [id number] Rosa Wray 07/28/2023 1 [place] Rosa Huston Kamala [id number] Rosa Salcedop Notes Date Note Type Note Provider Name and Address Organization Details Recorded Time 07/21/2023 text/html Low back painReported bypatient.Onset:5 years Location:left paraspinal Context:fall; she fell June 28 and had a compression fracture Quality:stabbing; sharp; constant Severity:current pain level: 8/10; average pain level: 9/10 Alleviating Factors:opioids Aggravating Factors:standing; walking; lifting; carrying; bending/squatting; pushing/pulling Timing:constant Associated Symptoms:no weakness; no numbness; no tingling; no pain radiating down lower extremities; no swelling; no popping/clicking; no bowel incontinence; no urinary retention; no urinary incontinence; no perineal paresthesia/anesthe nathanael Previous Lumbar Surgery:none Previous Injections:lumbar ESIs: helped significantly Previous physical therapy:6weeks of PT completed; response to therapy: temporary pain/symptoms improvement Cameron Hatfield MD [address], [address], [place] [facility] 07/21/2023 17:40:01 07/28/2023 text/html Low back painReported bypatient.Onset:5 years Location:left paraspinal Context:fall; she fell June 28 and had a compression fracture Quality:stabbing; sharp; constant Severity:current pain level: 10/10; average pain level: 9/10 Alleviating Factors:opioids Aggravating Factors:standing; walking; lifting; carrying; bending/squatting; pushing/pulling Timing:constant Associated Symptoms:no weakness; no numbness; no tingling; no pain radiating down lower extremities; no swelling; no popping/clicking; no bowel incontinence; no urinary retention; no urinary incontinence; no perineal paresthesia/anesthe nathanael Previous Lumbar Surgery:none Previous Injections:lumbar ESIs: helped significantly Previous physical therapy:6weeks of PT completed; response to therapy: temporary pain/symptoms improvement Cameron Hatfield MD [address], [address], [place] [facility] 07/28/2023 17:34:07 OBGyn Episode No OBEpisode recorded.
[2024-06-29 19:30] LABS: Basophils % 0.6 % (0.1-2.0); Eosinophils # 0.2 Kmm3 (0.0-0.4); Eosinophils % 4.1 % (0.1-12.0); Hematocrit 37.4 % (37.0-47.0); Hemoglobin 12.5 g/dL (12.2-16.2); Immature Granulocytes # 0.01 10^3uL; Immature Granulocytes % 0.2 %; Lymphocytes # 1.6 K/mm3 (0.7-4.5); Mean Corpuscular HGB Conc 33.4 g/dL (31.8-35.4); Mean Corpuscular Hemoglobin 33.7 pg (27.0-31.2); Mean Corpuscular Volume 100.8 fl (81-99); Mean Platelet Volume 9.6 fl (7.4-10.4); Monocytes # 0.7 K/mm3 (0.1-1.0); Monocytes % 13.8 % (1.7-9.3); Neutrophils # 2.5 K/mm3 (1.8-7.8); Neutrophils % 49.3 % (37.0-80.0); Nucleated Red Blood Cells # 0 10^3/uL; Nucleated Red Blood Cells % 0 %; Platelet Count 231 K/mm3 (142-424); Red Blood Count 3.71 M/mm3 (4.20-5.40); Red Cell Distribution Width 12.5 % (11.5-17.5); Red Cell Distribution Width-SD 46.8 fL; White Blood Count 5.1 K/mm3 (4.8-10.8)
[2024-06-29 19:46] LABS: Activated Partial Thrombo Time 24.8 seconds (22.8-30.6); INR 1.01 (0.9-1.1); Prothrombin Time 11.2 seconds (10.1-12.5)
[2024-06-29 19:50] LABS: Albumin Level 4.1 g/dl (3.5-5.0); Chloride 103 mmol/L (98-107); Sodium 136 mmol/L (136-145)
[2024-06-29 19:51] LABS: Potassium 4.9 mmoL/L (3.5-5.1)
[2024-06-29 19:53] LABS: Alanine Aminotransferase 30 U/L (12-78); Anion Gap 10.9 mEq/L (5-15); Aspartate Amino Transferase 31 U/L (14-36); Blood Urea Nitrogen 32 mg/dl (7-17); Carbon Dioxide 27 mmol/L (22.0-30.0); Creatinine Clearance Estimated 55 mL/min (50-200); Estimated Glomerular Filt Rate 44 ml/min (>60); GFR (African American) 53 ML/MIN (>60)
[2024-06-29 19:54] LABS: Albumin/Globulin Ratio 1.5 (1.1-1.8); Alkaline Phosphatase 105 U/L (38-126); Bilirubin,Total 0.3 mg/dl (0.2-1.3); Calcium 9.8 mg/dl (8.4-10.2); Globulin 2.7 g/dL (1.3-3.2); Glucose 127 mg/dl (74-100); Total Protein,Serum 6.8 g/dl (6.3-8.2)
[2024-06-29] MEDS: SODIUM CHLORIDE 0.9% 10ML SYR (RAD ONLY) 10 ML IV (20:12)
[2024-06-29] MEDS: 0.9 % SODIUM CHLORIDE 50 ML VIAL IV (20:12)
[2024-06-29] MEDS: IOPAMIDOL-370 (76%);100ML BOTTLE 80 ML IV (20:12)
--- NOTE | 2024-06-29 21:50 | PC.NURSE ---
IV discontinued. Catheter tip intact. Bleeding controlled.
== END 2024-06-29 21:58 | disposition home or self-care (01) ==
PROVIDERS: Emergency Provider Emergency Medicine; PCP Family Medicine
DX: K62.5 Hemorrhage of anus and rectum (principal)
CPT/HCPCS: 74174; 80053; 85025; 85610; 85730; 99284; Q9967

== ENCOUNTER 2024-08-07 14:00 | Outpatient (RCR) | payer MEDICARE, BC, SELFPAY | END 2024-08-07 23:59 | disposition home or self-care (01) | LOC: PT.CARL 14:00 | PROVIDERS: PCP Family Medicine; Visit Provider Orthopaedic Surgery Adult Reconstructive Orthopaedic Surgery | DX: Z47.1 Aftercare following joint replacement surgery (principal); Z96.651 Presence of right artificial knee joint | CPT/HCPCS: 97014; 97110; 97140; 97162; 97530; G0283 ==

== ENCOUNTER 2024-09-03 16:38 | Emergency (ER) | payer MEDICARE, BC, SELFPAY ==
--- OUTSIDE RECORDS SUMMARY | 2024-06-21 07:15 | XMS_ITS ---
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 In Name Role Phone Chase Gunn Primary Care [...] W/U Status Risk Notes Problem Chronic pain (25569884) Other chronic pain (G89.29) Active confirmed Problem Arthritis of right knee ([id number] 102) Arthritis of right knee (M17.11) Active confirmed Problem Body mass index 30+ - obesity (250323586) BMI 30.0-30.9,adul t (Z68.30) Active confirmed Vital Signs Blood pressure systolic 112 mm Hg 06/22/19 25 Blood pressure diastolic 68 mm Hg 025 Heart Rate 62 /min 06/21/2024 Height 66.25 in 06/21/2024 Weight 188.2 lbs 06/21/2024 BMI 30.14 kg/m2 06/21/2024 Encounters Encounter Location Date Provider Diagnosis [facility] [address] [facility] [address] [id number] 06/21/2024 Chase [place] Pain in right knee M 25.561 ; [...] as scheduled,and prn, Reason: Provider Name:Chase Trujillo , 11/22/2024 10:30:00 AM, [address] [place] [facility], [facility] 36 [facility], [address] [place], [place], [id number], Progress Notes * CATE PERDOMODOB:1950 (73 yo F)Acc No.[id number]:06/21/2024 Physical Patient: CATE DICKERSON Provider: Alena Gunn M.D. :1950 A ge:73 Y S ex:Female Date:06/21/2024 Address:[address] [place], [place] [id number] Subjective: * Chief Complaints: * 1 . Pre op physical. * HPI: A dult Pre-Op physical: Procedure: R ight Knee replacement. D ate of Procedure:?pending. N wood of Surgeon: Iris Serrano. S leep Apnea history n o. 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 * Surgical History: C holecystectomy , Bilateral Arterial Biopsy - Head - negative 04/11/2020, Brain Anuerysm Removal - [facility] 05/03/2020, EGD - 2015, 2021 , Bladder stimulator 2017, colonoscopy - 2015, 2021, 2023 . * Hospitalization/Major Diagno stic Procedure: B rain Anuerysm 05/03-. * Family History: F ather: , diagnosed with Heart Disease. M other: alive, diagnosed with Hypertension. S iblings: alive. C xavidren: alive. 2 sister(s) - healthy. 1 son(s) [...] ixed incontinence - N39.46 1 0. B IA 30.0-30.9,adult - Z68.30 ? Plan: * Treatment: [...] * Images: Billing Information: * Visit Code: 29606 Office Visit, Est Pt., Level 4. * Procedure Codes: G2211 Complex e/m visit add on. 3051F HG A1C>EQUAL 7.0%<8.0%. G8420 BMI<30 AND >=22 CALC & DOCU. G8752 MOST RECENT SYSTOLIC BP < 140MM HG. G8754 MOST RECENT DIASTOLIC BP < 90MM HG. * Electronic signature of Cora Gunn MD on 09/03/2024 at 04:48 PM EDT Sign off status: Pending * Provider: Alena Gunn M.D. Date: 0 06/21/2024 Generated for Ying mcnamara/Matilda/Ericitting on: 0 09/03/2024 04:48 PM EDT History and Physical Notes * HPI (History [...]
--- OUTSIDE RECORDS SUMMARY | 2024-07-11 07:15 | XMS_ITS ---
Author Organization [facility] Address [facility] [address] [phone] Care Team Providers Care Production Zone Leader Name Role Phone Chase Gunn Primary Care Provider [phone] Allergies Allergen (clinical drug ingredient) Drug/Non Drug [...] Risk Notes Problem Overactive urinary bladder (disorder) (579032667) OAB (overactiv e bladder) (N32.81) Active confirmed Vital Signs Blood pressure systolic 110 mm Hg 07/12/19 25 Blood pressure diastolic 70 mm Hg 025 Heart Rate 62 /min 07/11/2024 Height 66.25 in 07/11/2024 Weight 187.8 lbs 07/11/2024 BMI 30.08 kg/m2 07/11/2024 Encounters Encounter Location Date Provider Diagnosis [facility] [address] [facility] [address] [place], [place] [phone] 07/11/2024 Chase [place] Persistent cough R05 .3 ; Gastroesophageal reflux [...] phone to repo rt test results, Reason: Provider Name:Chase Trujillo ry, 11/22/2024 10:30:00 AM, [address] [facility] 36 [facility], [address], [phone], Progress Notes * LEANNE DEWAYNENEELADOB:1950 (73 yo F)Acc No.[id number]:07/11/2024 Progress Notes Patient: CATE DICKERSON Provider: Alena Gunn M.D. :1950 A ge:73 Y S ex:Female Date:07/11/2024 Address:[address] [place], [place] [id number] Subjective: * Chief Complaints: * 1 . 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 * Surgical History: C holecystectomy , Bilateral Arterial Biopsy - Head - negative 04/11/2020, Brain Anuerysm Removal - [facility] 05/03/2020, EGD - 2015, 2021 , [...] (overactive bladder) - N32.81 5 . B [place] 30.0-30.9,adult - Z68.30 Plan: * Treatment: Value [...] G 2211 Complex e/[place], [address] CAPILLARY BLOOD DRAW, 95654 CBC WITH AUTO DIFF, G8950 PREHTN/HTN BP DOC INDCD F/U DOC, G8752 MOST RECENT SYSTOLIC BP < 140MM HG, G8754 MOST RECENT DIASTOLIC BP < 90MM HG, 1036F TOBACCO NON-USER * Follow Up: v ia phone to report test results * Images: Billing Information: * Visit Code: 07857 Office Visit, Est Pt., Level 4. * Procedure Codes: G2211 Complex e/[place]. [address] CAPILLARY BLOOD DRAW. 47687 CBC WITH AUTO DIFF. G8950 PREHTN/HTN BP DOC INDCD F/U DOC. G8752 MOST RECENT SYSTOLIC BP < 140MM HG. G8754 MOST RECENT DIASTOLIC BP < 90MM HG. 1036F TOBACCO NON-USER. * Electronic signature of Cora Gunn MD on 09/03/2024 at 04:47 PM EDT Sign off status: Pending * Provider: Alena Gunn M.D. Date: 0 07/11/2024 Generated for Ying mcnamara/Matilda/eTransmitting on: 0 09/03/2024 04:47 PM EDT History and Physical Notes * [...]
--- OUTSIDE RECORDS SUMMARY | 2024-07-24 07:58 | XMS_ITS ---
[facility] Address [address] [place] [address] 36 [facility] [address] [place], [place] [phone] Care Team Providers Care Public Health Technologist Name Role Phone Chase Gunn Primary Care Provider REASON FOR VISIT due mamm Encounters Encounter Location Date Provider Diagnosis [facility] [address] [facility] 36 [facility] [address] [place], [place] [phone] 07/24/2024 Chase Gunn Screening for breast cancer Z12.39 Assessments Encounter Date Diagnosis (ICD Code) Assessment Notes Treatment Notes Treatment Clinical Notes Section Notes 07/24/2024 Screening for breast cancer (ICD-10 - Z12.39) Plan Of Treatment Pending Test Test Name Order Date Mammogram 07/24/2024 Next Appt Details Provider Name:Chase Trujillo ry, 11/22/2024 10:30:00 AM, [address] [facility] 36 [facility], [address], [place], [place], [phone], Progress Notes * CATE PERDOMODOB:1950 (73 yo F)Acc No.[id number]:07/24/2024 Patient: CATE DICKERSON :1950 A ge:73 Y S ex:Female Address:[address] [place] [address], [phone] Subjective: * Chief Complaints: * D ue mamm * Medical History: * Surgical History: * Hospitalization/Major Diagno stic Procedure: * Medications: Objective: * Vitals: * Physical Examination: Assessment: * Assessment: 1. S creening for breast cancer - Z12.39 (Primary) Plan: * Treatment: * Procedure Codes: * true * Date: Generated for Ying mcnamara/Matilda/Mio on: 09/03/2024 04:47 PM EDT
--- OUTSIDE RECORDS SUMMARY | 2024-09-03 16:47 | XMS_ITS | Patient Health Record ---
[facility] [address] [facility] [address] [id number] Care Team Providers Care Concrete Floater Name Role Phone Chase Gunn Primary Care Provider [phone] Allergies Allergen (clinical drug ingredient) Drug/Non Drug Allergy documented on EMR Reaction Allergy Type Onset Date Status promethazine Promethazine sore mouth Drug Allergy Active Results Component Value Reference Range Notes CBC Fingerstick (in house) Reviewed date:02/23/2024 11:39:15 AM Interpretation: Performing Lab: Notes/Report: wbc 5.5 3.5 - 10 lym 26.7% 15 - 50 mid 8.8% 2 - 15 gran 64.5% 35 - 80 rbc 4.05 3.5 - 5.5 hgb 13.5 11.5 - 16.5 hct 40.5 35 - 55 mcv 99.8 75 - 100 mch 33.2 25 - 35 mchc 33.3 31 - 38 plat 210 100 - 400 P-TSH reflex to FT4 Reviewed date:11/25/2023 09:40:03 AM Interpretation:Normal Performing Lab: Notes/Report: Test performed by [facility] [address] [place], [place] [address] [address] Jose Vargas C, [place] [address] Deshawn Meade MD, Spanish Medical Inter[employer]ter CLIA: [id number] TSH reflex to FT4 1.42 0.43-5.25 mU/L P-Phosphorus Reviewed date:11/25/2023 09:40:03 AM Interpretation:Normal Performing Lab: Notes/Report: Test performed by [facility] [address] [place], [place] [address] [address], [place] [address] Deshawn Meade MD, Spanish Medical Interpreter CLIA: [id number] Phosphorus 3.8 2.5-4.5 mg/dL P-Lipid Panel Reviewed date:11/25/2023 09:40:03 AM Interpretation:Normal Performing Lab: Notes/Report: Test performed by [facility] [address] [place] [address] Jose Vargas C, [place] [address] Deshawn Meade MD, Spanish Medical Interpreter CLIA: [id number] Cholesterol 142 <200 mg/dL Triglycerides 121 <150 mg/dL HDL Cholesterol 41 >39 mg/dL Cholesterol / HDL Ratio 3.46 0.00-4.44 Ratio Non-HDL Cholesterol 101 <130 mg/dL LDL Cholesterol (Calculation) 77 <130 mg/dL LDL Cholesterol Levels* Less than 100 mg/dL Optimal 100 to 129 mg/dL Near Optimal/ Above Optimal 130 to 159 mg/dL Borderline High 160 to 189 mg/dL High 190 mg/dL and above Very High * Categories as recommended by the 2004 ATPIII guidelines LDL/HDL Ratio 1.9 <3.3 Ratio _ LDL Cholesterol Patient History _ Test Date: 06/03/2023 LDL Results: 63 Units: mg/dL % Change: - - Test Date: 11/24/2023 LDL Results: 77 Units: mg/dL % Change: +22% _ P-Comprehensive Metabolic Pa torsten (CMP) Reviewed date:11/25/2023 09:40:03 AM Interpretation:gluc 166, bun 26, Cr 1.1, gfr 53 Performing Lab: Notes/Report: Test performed by [facility], [place] [address] [place] [address] , [address], [place] [address] Deshawn Meade MD, Spanish Medical Interpreter CLIA: [id number] Sodium 140 135-145 mmol/L Potassium 4.6 3.5-5.3 mmol/L Chloride 101 97-108 mmol/L CO2 27 22-32 mmol/L Glucose 166 65-99 mg/dL BUN 26 8-23 mg/dL Creatinine 1.10 0.50-1.00 mg/dL Calcium 9.5 8.6-10.4 mg/dL eGFR by Creatinine 53 >59 mL/min/1.73m2 Protein 6.3 6.0-8.3 g/dL Albumin 4.2 3.5-5.3 g/dL Alkaline Phosphatase 93 35-121 IU/L ALT (SGPT) 27 <5-47 IU/L AST (SGOT) 21 <5-40 IU/L Bilirubin, Total 0.3 <0.2-1.2 mg/dL A/G Ratio 2.0 1.1-2.5 Glycohemoglobin A1c (in hous e) Reviewed date:11/25/2023 09:40:03 AM Interpretation:7.4 Performing Lab: Notes/Report: 7.4 glycohemoglobin 7.4% 5 - 6.5 % Glucose (In-House) Reviewed date:11/25/2023 09:40:03 AM Interpretation:174 Performing Lab: Notes/Report: 174 blood glucose 174 74 - 106 mg/dL TEN-Upper Respiratory PCR Reviewed date:02/25/2024 12:38:07 PM Interpretation:Negative Performing Lab: Notes/Report: Negative P-Comprehensive Metabolic Pa torsten (CMP) Reviewed date:05/24/2024 11:29:48 AM Interpretation:glu 132, BUN 25, creat 1.24, eGFR 46 Performing Lab: Notes/Report: Test performed by [facility] [address] [place] [address] , [address], [place] [address] Deshawn Meade MD, Spanish Medical Interpreter CLIA: [id number] Sodium 141 135-145 mmol/L Potassium 5.3 3.5-5.3 [...] Interpretation:7.8 Performing Lab: Notes/Report: Test performed by [facility] [address] [place] [address] [place] [address] Deshawn Meade MD, Spanish Medical Interpreter CLIA: [id number] Hemoglobin A1C 7.8 <5.7 % The following HbA1c ranges recommended by the [place] [employer] (ADA) may be used as an aid in the diagnosis of diabetes mellitus. HbA1c Suggested Diagnosis >=6.5% Diabetic 5.7% - 6.4% Pre-Diabetic <5.7% Non-Diabetic P-Lipid Panel Reviewed date:05/24/2024 11:29:48 AM Interpretation: Normal Performing Lab: Notes/Report: Test performed by [facility] [address] [place] [address] [place] [address] Deshawn Meade MD, Spanish Medical Interpreter CLIA: [id number] Cholesterol 144 <200 mg/dL Triglycerides 111 <150 [...] ATPIII guidelines LDL/HDL Ratio 1.7 <3.3 Ratio _ LDL Cholesterol Patient History _ Test Date: 06/03/2023 LDL Results: 63 Units: mg/dL % Change: - - Test Date: 11/24/2023 LDL Results: 77 Units: mg/dL % Change: +22% - Test Date: 05/23/2024 LDL Results: 77 Units: mg/dL % Change: 0% _ P-TSH reflex to FT4 Reviewed date:05/24/2024 11:29:48 AM Interpretation: Normal Performing Lab: Notes/Report: Test performed by [facility] [address] , [place] [address] Deshawn Meade MD, Spanish Medical Interpreter CLIA: [id number] TSH reflex to FT4 3.33 0.43-5.25 mU/L P-Microalbumin/Creatinine, R andom Urine Sample Reviewed date:05/24/2024 11:29:48 AM Interpretation: Normal Performing Lab: Notes/Report: Test performed by [facility] [address] , [place] [address] Deshawn Meade MD, Spanish Medical Interpreter CLIA: [id number] Albumin/Creatinine Ratio, Urine 4 0-30 ug/mg Microalbumin, Urine, Random 0.3 Creatinine, Urine 76.8 Estimated Average Glucose Reviewed date:05/24/2024 11:29:48 AM Interpretation:177 Performing Lab: Notes/Report: Test performed by [facility] [address] , [place] [address] Deshawn Meade MD, Spanish Medical Interpreter CLIA: [id number] Estimated Average Glucose (eAG) 177 Estimated Average Glucose (eAG) is calculated using the equation eAG = (28.7 x HbA1c) - 46.7 based on the guidelines established by the ADA. If the patient has certain diseases including kidney disease, sickle cell anemia, thalassemia, or is taking medications such as dapsone, erythropoietin, or iron, eAG should not be evaluated. CBC Fingerstick (in house) Reviewed date:04/03/2024 01:35:43 PM Interpretation: Performing Lab: Notes/Report: wbc 6.9 3.5 - 10 lym 22.3% 15 - 50 mid 5.6% 2 - 15 gran 72.1% 35 - 80 rbc 3.98 3.5 - 5.5 hgb 13.2 11.5 - 16.5 hct 40.0 35 - 55 mcv 100.3 75 - 100 mch 33.1 25 - 35 mchc 33.0 31 - 38 plat 178 100 - 400 TEN-Upper Respiratory PCR Reviewed date:04/05/2024 07:57:41 AM Interpretation:Abnormal Performing Lab: Notes/Report: Abnormal CXR Reviewed date:04/04/2024 01:34:52 PM Interpretation:unremarkable Performing Lab: Notes/Report: unremarkable Urinalysis - Inhouse Reviewed date:05/05/2024 05:47:07 PM Interpretation: Performing Lab: Notes/Report: Color/Clarity yellow/cloudy Leuk 1+ Nitrite Pos Urobili 3.2 Protein Neg pH 7.0 Blood Trace-Intact Sp. Gr. 1.015 Ketone Neg Bili Neg Gluc 2+ TEN-UTI panel Reviewed date:05/08/2024 02:00:36 PM Interpretation:Abnormal Performing Lab: Notes/Report: Abnormal CBC Fingerstick (in house) Reviewed date:07/12/2024 01:11:12 [...] - 38 plat 215 100 - 400 CBC Fingerstick (in house) Reviewed date:10/18/2023 02:49:45 PM Interpretation: Performing Lab: Notes/Report: wbc 5.5 3.5 - 10 lym 33.3% 15 - 50 mid 7.4% 2 - 15 gran 59.3% 35 - 80 rbc 4.29 3.5 - 5.5 hgb 13.7 11.5 - 16.5 hct 42.3 35 - 55 mcv 98.5 75 - 100 mch 31.8 25 - 35 mchc 32.3 31 - 38 plat 207 100 - 400 Influenza Screen (in house) Reviewed date:02/01/2024 11:20:49 AM Interpretation:Negative Performing Lab: Notes/Report: Negative results Neg Covid test (in house) Reviewed date:02/01/2024 11:20:28 AM Interpretation:Negative Performing Lab: Notes/Report: Negative Result: Neg Reason For Referral Diagnosis 1 Nausea (R11.0) Diagnosis 2 Gastroesophageal ref lux disease without esophagitis (K21.9) Diagnosis 3 Pharyngeal dysphagia (R13.13) Referral Organization [facility] Referring Provider First Name Chase Referring Provider Last Name Luis A Referring Provider Speciality [facility] pavan Referred Provider DAYAN LYN Referred Provider Specialty Gastroentero logy General Notes Letitia Osei 10:57:47 AM > faxed to Dr. Lyn office, Letitia Osei 03/17/2024 2:01:41 PM > 04/11/2024 at 09:00am Referral Priority Routine Medications Medication SIG (Take, Route, Frequency, Duration) Notes Start Date End Date Status hydrALAZINE HCl 25 MG 1 tablet with food Orally Twice a day; Duration: 30 day(s) Active Darifenacin Hydrobromide ER 15 MG 1 tablet with liquid Orally Once a day; Duration: 30 day(s) Active Carvedilol 25 MG 1 tablet with food Orally Twice a day; Duration: 90 days Active Trintellix 20 MG 1 tab(s) orally once a day; Duration: 90 days Active Gemtesa 75 MG 1 tablet Orally Once a day; Duration: 90 days 07/11/2024 Active Probiotic - as directed Orally Active Irbesartan 150 MG 2 tablets Orally Onc e a day Active guanFACINE HCl 1 MG 1 tablet at bedtime Orally Once a day; Duration: 90 days Active Iberogast - as directed Orally Active Voquezna 10 MG 1 tablet Orally Once a day; Duration: 90 days 05/03/2024 Active Synjardy XR 12.5-1000 MG 2 tablets with breakfast Orally Once a day; Duration: 30 days Active clonazePAM 1 MG 1 tab(s) orally 2 ti mes a day as needed; Duration: 30 days 08/17/2024 Active Beano Meltaways 450 UNIT as directed Orally Active Multivitamin - 1 tab(s) orally once a day; Duration: 30 day(s) Active Calcium 600 + Minerals 600-200 MG-UNIT 1 tab(s) orally 3 times a day; Duration: 30 day(s) Active Kerendia 10 MG 1 tablet Orally Once a day; Duration: 90 days Active sAXagliptin HCl 5 MG 1 tablet Orally Onc e a day 02/22/2024 Active Aspirin 81 MG 1 tablet Orally Once a day; Duration: 30 day(s) Active Crestor 10 MG 1 tab(s) orally once a day (at bedtime); Duration: 90 days Active FeroSul 325 (65 Fe) MG TAKE 1 TABLET BY MOUTH THREE TIMES DAILY; Duration: 30 days Active Amitriptyline HCl 25 MG 1 tablet at bedt samantha orally once a day (at bedtime); Duration: 90 days Active Immunizations Vaccine Route Administration Date Status Comme nts COVID 19 Moderna Unknown 05/23/2020 Administered COVID 19 Moderna Unknown 06/20/2020 Administered COVID 19 Moderna Unknown 11/07/2020 Administered Fluzone High Dose (65yr and older) IM Intramuscular 11/05/2016 Administered Fluzone PF Quad (6-35 months) Unknown 11/19/2017 Administered Tetanus Tdap-Adacel (over 7yrs) Unknown 04/08/2023 Administered Problems Problem Type SNOMED Code ICD Code Onset Dates Problem Status W/U Status Risk Notes Problem Essential hypertension (51854132) Essential hypertension (I10) Active confirmed Problem Mixed anxiety and depressive disorder (561108068) Depression with anxiety (F41.8) Active confirmed Problem Body mass index 30+ - obesity (303359999) BMI 30.0-30.9,adult (Z68.30) Active confirmed Problem Overactive urinary bladder (disorder) (236070338) OAB (overactive bladder) (N32.81) Active confirmed Problem Mixed incontinence (640891106) Mixed incontinence (N39.46) Active confirmed Problem Chronic pain (45659888) Other chronic pain (G89.29) Active confirmed Problem Type II diabetes mellitus without complication (507934900) Type 2 diabetes mellitus without complication (E11.9) Active confirmed Problem Constipation (73525801) Constipation, unspecified constipation type (K59.00) Active confirmed Problem Gastroesophageal reflux disease without esophagitis (518040381) Gastroesophageal reflux disease without esophagitis (K21.9) Active confirmed Problem Low back pain (246460596) Bilateral low back pain without sciatica (M54.5) Active confirmed Problem Hyperhidrosis (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) Active confirmed Problem Subacute vaginitis (74424487514242306) Subacute vaginitis (N76.1) Active confirmed Problem Soreness of tongue (30003317) Soreness of tongue (K14.6) Active confirmed Problem Type II diabetes mellitus without complication (057800244) Type 2 diabetes mellitus without complication, without long-term current use of insulin (E11.9) Active confirmed Problem Pharyngeal dysphagia (84036736258568) Pharyngeal dysphagia (R13.13) Active confirmed Problem Chronic anemia (385025593) Chronic anemia (D64.9) Active confirmed Problem Pure hypercholesterolemia (172308339) Pure hypercholesterolemia (E78.00) Active confirmed Problem Glossodynia (86707787) Tongue pain (K14.6) Active confirmed Problem Thyromegaly (8896528) Thyromegaly (E01.0) Active confirmed Problem Arthritis of right knee (4242121385080508) Arthritis of right knee (M17.11) Active confirmed Problem Allergic rhinitis (23070733) Allergic rhinitis, unspecified seasonality, unspecified trigger (J30.9) Active confirmed Problem Type II diabetes mellitus without complication (339894989) 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 diabetes mellitus 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 complication, 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.9) Active confirmed Problem Chronic kidney disease stage 3B (disorder) (462829937) Stage 3b chronic kidney disease (N18.32) Active confirmed Problem Chronic kidney disease stage 3A (955823652) Stage 3a chronic kidney disease (N18.31) Active confirmed Problem Chronic kidney disease stage 3B (disorder) (396055839) Stage 3b chronic kidney disease (CKD) (N18.32) Active confirmed Problem Taste sense altered (489156695) Taste sense altered (R43.2) Active confirmed Problem Urinary incontinence (121697758) Urinary incontinence in female (R32) Active confirmed Vital Signs Heart Rate 62 /min 07/11/2024 Blood pressure diastolic 70 mm Hg 07/11/2024 Height 66.25 in 07/11/2024 Blood pressure systolic 110 mm Hg 07/11/2024 Weight 187.8 lbs 07/11/2024 BMI 30.08 kg/m2 07/11/2024 Encounters Encounter Location Date Provider Diagnosis [facility] [address] [place], [place] [id number] 09/24/2023 Chase Raleigh Essential hypertensi on I10 ; Type 2 diabetes mellitus without complication E11.9 and Gastroesophageal reflux disease without esophagitis K21.9 [facility] [address] [facility] [address] [place], [place] [id number] 10/18/2023 Chase Raleigh Open wound of right buttock without complication, initial encounter S31.819A [facility] [address] [facility] [address] [place], [place] [id number] 11/24/2023 Chase Raleigh Type 2 diabetes sky itus without complication E11.9 ; Essential hypertension I10 ; Pure hypercholesterolemia E78.00 ; Stage 3b chronic kidney disease N18.32 and Gastroesophageal reflux disease without esophagitis K21.9 [facility] [address] [facility] [address] [place], [place] [id number] 02/01/2024 Chase Raleigh Acute URI J06.9 [facility] [address] [facility] [address] [place] [id number] 02/23/2024 Chase Raleigh Bronchitis J40 and N ausea R11.0 [facility] [address] [facility] [address] [place] [id number] 03/14/2024 Chase Raleigh Nausea R11.0 ; Gastroesophageal reflux disease without esophagitis K21.9 ; Pharyngeal dysphagia R13.13 and Nausea and vomiting, unspecified vomiting type R11.2 [facility] [address] [facility] [address] [place] [id number] 04/03/2024 Chase Raleigh Persistent cough R05 .3 [facility] [address] [facility] [address] [place] [id number] 04/21/2024 Chase Raleigh Tongue pain K14.6 [facility] [address] [facility] [address] [place] [id number] 05/03/2024 Chase Raleigh Acute UTI N39.0 ; Dy suria R30.0 ; Chronic cough R05.3 and Gastroesophageal reflux disease without esophagitis K21.9 [facility] [address] [facility] [address] [place] [id number] 05/23/2024 Chase Raleigh Type 2 diabetes sky itus without complication E11.9 ; Essential hypertension I10 ; Pure hypercholesterolemia E78.00 ; Stage 3a chronic kidney disease N18.31 ; Gastroesophageal reflux disease without esophagitis K21.9 ; Stage 3b chronic kidney disease N18.32 ; Chronic anemia D64.9 ; BMI 28.0-28.9,adult Z68.28 and Lumbar back pain M54.50 [facility] [address] [place], [place] [id number] 06/21/2024 Chase Raleigh Pain in right knee M 25.561 ; Pre-op exam Z01.818 ; Arthritis of right knee M17.11 ; Type 2 diabetes mellitus without complication E11.9 ; Essential hypertension I10 ; Gastroesophageal reflux disease without esophagitis K21.9 ; Stage 3b chronic kidney disease N18.32 ; Chronic anemia D64.9 ; Mixed incontinence N39.46 and BMI 30.0-30.9,adult Z68.30 [facility] [address] [place] [id number] 07/11/2024 Chase Raleigh Persistent cough R05 .3 ; Gastroesophageal reflux disease without esophagitis K21.9 ; Essential hypertension I10 ; OAB (overactive bladder) N32.81 and BMI 30.0-30.9,adult Z68.30 [facility] [address] [place], [place] [id number] 09/27/2023 Chase Raleigh Essential hypertensi on I10 [facility] [address] [place] [id number] 10/27/2023 Chase Raleigh [facility] [address] [facility] [address] [place] [id number] 11/22/2023 Chase Raleigh Depression with anxi ety F41.8 [facility] [address] [facility] [address] [place] [id number] 11/25/2023 Chase Raleigh [facility] [address] [facility] [address] [place] [id number] 02/18/2024 Chase Raleigh Depression with anxi ety F41.8 [facility] [address] [place] [id number] 02/18/2024 Chase Raleigh [facility] [address] [place] [id number] 03/02/2024 Chase Raleigh Bronchitis J40 [facility] [address] [place] [id number] 03/13/2024 Chase Raleigh [facility] [address] [place] [id number] 03/31/2024 Chase Raleigh Bronchitis J40 [facility] [address] [place] [id number] 04/04/2024 Chase Raleigh [facility] [address] [place] [id number] 05/12/2024 Chase Raleigh [facility] [address] [place] [id number] 05/15/2024 Chase Raleigh Gastroesophageal ref lux disease without esophagitis K21.9 [facility] [address] [place] [id number] 05/19/2024 Chase Raleigh Depression with anxi ety F41.8 [facility] [address] [place] [id number] 05/24/2024 Chase Raleigh [facility] [address] [place] [id number] 06/02/2024 Chase Raleigh [facility] [address] [place] [id number] 07/11/2024 Chase Raleigh [facility] [address] [place] [id number] 07/24/2024 Chase Raleigh Screening for breast cancer Z12.39 [facility] [address] [place] [id number] 07/25/2024 Chase Raleigh [facility] [address] [place], [place] [id number] 08/16/2024 Chase Raleigh Depression with anxi ety F41.8 Assessments Encounter Date Diagnosis (ICD Code) Assessment Notes Treatment Notes Treatment Clinical Notes Section Notes 09/24/2023 Essential hypertensi on (ICD-10 - I10) 09/24/2023 Type 2 diabetes sky itus without complication (ICD-10 - E11.9) 09/27/2023 Essential hypertensi on (ICD-10 - I10) 10/18/2023 Open wound of right buttock without complication, initial encounter (ICD-10 - S31.819A) 11/22/2023 Depression with anxi ety (ICD-10 - F41.8) 11/24/2023 Essential hypertensi on (ICD-10 - I10) 11/24/2023 Type 2 diabetes sky itus without complication (ICD-10 - E11.9) 02/01/2024 Acute URI (ICD-10 - J06.9) 02/18/2024 Depression with anxi ety (ICD-10 - F41.8) 02/23/2024 Bronchitis (ICD-10 - J40) 02/23/2024 Nausea (ICD-10 - R11.0) 03/02/2024 Bronchitis (ICD-10 - J40) 03/14/2024 Gastroesophageal ref lux disease without esophagitis (ICD-10 - K21.9) 03/14/2024 Nausea (ICD-10 - R11.0) 03/31/2024 Bronchitis (ICD-10 - J40) 04/03/2024 Persistent cough (IC D-10 - R05.3) 04/21/2024 Tongue pain (ICD-10 - K14.6) 05/03/2024 Dysuria (ICD-10 - R30.0) 05/15/2024 Gastroesophageal ref lux disease without esophagitis (ICD-10 - K21.9) 05/19/2024 Depression with anxi ety (ICD-10 - F41.8) 05/23/2024 Essential hypertensi on (ICD-10 - I10) 05/23/2024 Type 2 diabetes sky itus without complication (ICD-10 - E11.9) 05/03/2024 Acute UTI (ICD-10 - N39.0) 06/21/2024 Pre-op exam (ICD-10 - Z01.818) Patient is of acceptable risk for proposed total knee replacement. Preop testing to be done by surgeon. 06/21/2024 Pain in right knee (ICD-10 - M25.561) 07/11/2024 Gastroesophageal ref lux disease without esophagitis (ICD-10 - K21.9) 07/11/2024 Persistent cough (IC D-10 - R05.3) 07/24/2024 Screening for breast cancer (ICD-10 - Z12.39) 08/16/2024 Depression with anxi ety (ICD-10 - F41.8) 07/11/2024 Essential hypertensi on (ICD-10 - I10) 06/21/2024 Arthritis of right k nee (ICD-10 - M17.11) 05/03/2024 Chronic cough (ICD-1 0 - R05.3) If symptoms persist will need further imaging 05/23/2024 Pure hypercholesterolemia (ICD-10 - E78.00) 03/14/2024 Pharyngeal dysphagia (ICD-10 - R13.13) 11/24/2023 Pure hypercholesterolemia (ICD-10 - E78.00) 09/24/2023 Gastroesophageal ref lux disease without esophagitis (ICD-10 - K21.9) 11/24/2023 Stage 3b chronic kid alexa disease (ICD-10 - N18.32) 03/14/2024 Nausea and vomiting, unspecified vomiting type (ICD-10 - R11.2) 05/03/2024 Gastroesophageal ref lux disease without esophagitis (ICD-10 - K21.9) 05/23/2024 Stage 3a chronic kid alexa disease (ICD-10 - N18.31) 06/21/2024 Type 2 diabetes sky itus without complication (ICD-10 - E11.9) 07/11/2024 OAB (overactive blad brien) (ICD-10 - N32.81) 06/21/2024 Essential hypertensi on (ICD-10 - I10) 07/11/2024 BMI 30.0-30.9,adult (ICD-10 - Z68.30) 05/23/2024 Gastroesophageal ref lux disease without esophagitis (ICD-10 - K21.9) Symptoms, including cough has improved, patient likely has LPR, plan to continue Voquezna 11/24/2023 Gastroesophageal ref lux disease without esophagitis (ICD-10 - K21.9) 06/21/2024 Gastroesophageal ref lux disease without esophagitis (ICD-10 - K21.9) 05/23/2024 Stage 3b chronic kid alexa disease (ICD-10 - N18.32) 05/23/2024 Chronic anemia (ICD- 10 - D64.9) 06/21/2024 Stage 3b chronic kid alexa disease (ICD-10 - N18.32) 06/21/2024 Chronic anemia (ICD- 10 - D64.9) 05/23/2024 BMI 28.0-28.9,adult (ICD-10 - Z68.28) 06/21/2024 Mixed incontinence (ICD-10 - N39.46) 05/23/2024 Lumbar back pain (IC D-10 - M54.50) 06/21/2024 BMI 30.0-30.9,adult (ICD-10 - Z68.30) 02/23/2024 Other If symptoms do not improve, patient may need EGD/GI evaluation Plan Of Treatment Pending Test Test Name Order Date Mammogram 07/24/2024 Modified barium swallow 07/13/2023 Next Appt Details Provider Name:Chase Trujillo ry, 11/22/2024 10:30:00 AM, [address], [place], [place], [id number], Insurance Providers Payer Name Payer Address Payer Phone Subscriber Number Group Number Insured Name Patient Relationship to Insured Coverage Start Date Coverage End Date MEDICARE PART B [address] [address] [place] [id number] LEANNE CATE Self - patient is the insured [facility] [address] [place] [address] [id number] LEANNECATE Self - patient is the insured Medical (General) History Medical History History ICD Code Type 2 Diabetes Hypertension Hyperlipidemia Anxiety and Depression GERD Bilateral Fibercystic Breast Allergic Rhinitis 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
--- OUTSIDE RECORDS SUMMARY | 2024-09-03 16:47 | XMS_ITS | Clinical Summary ---
Author Organization [facility] Address [address] [place] [address] Care Team Providers Care Warping Machine Operator Name Role Phone Chase Gunn MD Primary Care Provider [phone] Allergies Active Allergy Reactions Criticality Noted Date Comments Semaglutide(0.25 Or 0.5mg-Dos) GI Intolerance 0 11/01/2020 Medications amLODIPine (NORVASC) 5 MG tablet Take 1 tablet by mouth Daily. 04/04/2020 Active carvedilol (COREG) 25 MG tablet Take 1 tablet by mouth 2 (Two) Times a Day. 04/10/2020 Active clonazePAM (KlonoPIN) 1 MG tablet Take 1 tablet by mouth 2 (two) times a day. 04/04/2020 Active Synjardy XR 12.5-1000 MG tablet sustained-relea se 24 hour 2 tablets Daily. 04/04/2020 Active guanFACINE (TENEX) 2 MG tablet Take 1 tablet by mouth Every Night. 03/27/2020 Active pioglitazone (ACTOS) 30 MG tablet Take 30 mg by mouth Daily. 03/27/2020 Active rosuvastatin (CRESTOR) 10 MG tablet Take 1 tablet by mouth every night at bedtime. 03/27/2020 Active Trintellix 20 MG tablet Take 1 tablet by mouth Daily. 03/27/2020 Active primidone (MYSOLINE) 50 MG tablet Take 50 mg by mouth Every Night. Active candesartan (ATACAND) 32 MG tablet Take 1 tablet by mouth Daily. Active multivitamin with minerals tablet tablet Take 1 tablet by mouth Daily. Active calcium carbonate (OS-AZUL) 600 MG tablet Take 1 tablet by mouth 2 (Two) Times a Day With Meals. Active Folic Acid 0.8 MG capsule Take 1 tablet by mouth. Active docusate sodium (COLACE) 100 MG capsule Take 3 capsules by mouth 2 (two) times a day. Active amitriptyline (ELAVIL) 25 MG tablet Take 1 tablet by mouth Every Night. Active aspirin 81 MG EC tablet Take 1 tablet by mouth Daily. Active lactulose (CHRONULAC) 10 GM/15ML solution Take 10 g by mouth Daily. Active SITagliptin (JANUVIA) 100 MG tablet Take 1 tablet by mouth Daily. Active hydroCHLOROthia zide (MICROZIDE) 12.5 MG capsule Take 12.5 mg by mouth Daily. Active ferrous sulfate 325 (65 FE) MG tablet Take 1 tablet by mouth 3 (Three) Times a Day. Active tolterodine LA (Detrol LA) 4 MG 24 hr capsule Take 4 mg by mouth Daily. Active Saccharomyces boulardii (Probiotic) 250 MG capsule Take by mouth. Not sure of the dose Active irbesartan (AVAPRO) 150 MG tablet Take 1 tablet by mouth 2 (Two) Times a Day. 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 Never 05/01/2020 Average Number of Drinks Not on file 021 Frequency of Binge Drinking Not on file 04/09 Abuse Screen Answer Date Recorded Unsafe at Home or Work/School Not on file Feels Threatened by Someone? Not on file 10/2022 Does Anyone Keep You from Co ntacting Others or Doint Things Outside the Home? Not on file 11/16/2022 Physical Sign of Abuse Present Not on file 1 Housing Stability Answer Date Recorded Current Living Arrangements Not on file 10/2022 Potentially Unsafe Housing Conditions Not on lulu e 11/16/2022 Family and Community Support Answer Ranjit e Recorded Help with Day-to-Day Activities Not on file 11/16/2022 Lonely or Isolated Not on file 11/16/2022 Employment Answer Date Recorded Do you want help finding or keeping work or a bayron b? Not on file 11/16/2022 Disabilities Answer Date Recorded Concentrating, Remembering, or Making Decisions Difficulty Not on file 11/16/2022 Doing Errands Independently Difficulty Not on fi le 11/16/2022 Education Answer Date Recorded Help with school or training? Not on file Preferred Language Not on file 11/16/2022 Comments No Sex and Gender Information Value Date Recorded Sex Assigned at Not on file Legal Sex Female 10:59 AM EDT Gender Identity Not on file Sexual Orientation Not on file Last Filed Vital Signs Vital Sign Reading Time Taken Comments Blood Pressure 172/76 10/15/2023 11:00 AM EDT Pulse 63 11/05/2021 1:16 PM EDT Temperature 36.4 C (97.6 F) 10/15/2023 11:00 AM EDT Respiratory Rate 16 10/15/2023 11:00 AM EDT Oxygen Saturation 98% 10/15/2023 11:00 AM EDT Inhaled Oxygen Concentration - - Weight 88.5 kg (195 lb) 10/15/2023 11:00 AM EDT Height 165.1 cm (5' 5 ) 11/05/2021 1:16 PM EDT Body Mass Index 32.45 11/05/2021 1:16 PM EDT Plan of Treatment Health Maintenance Due Date Last Done Comments DXA SCAN 1950 DIABETIC EYE EXAM 1960 DIABETIC FOOT EXAM 1960 URINE MICROALBUMIN-CREATININ E RATIO (uACR) 1960 Pneumococcal Vaccine 50+ (1 of 2 - PCV) 1969 MAMMOGRAM 1990 COLOGUARD 12/20/1995 COLON CANCER SCREENING 5 ASHOK Hammer SIGMOIDOSCOPY 12/20/1995 COLONOSCOPY 12/20/1995 COLORECTAL CANCER SCREENING 12/20/1995 CT COLONOGRAPHY 12/20/1995 FECAL OCCULT BLOOD TEST 12/20/1995 FIT Testing (1 year) 12/20/1995 ZOSTER VACCINE (1 of 2) 2000 ANNUAL WELLNESS VISIT 10/29/2016 HEMOGLOBIN A1C 10/29/2016 HEPATITIS C SCREENING 10/29/2016 COVID-19 Vaccine ( season) 2023 11/07/2020, 06/20/2020, 05/23/2020 INFLUENZA VACCINE 11/08/2024 11/19/2017, 11/05/2016 TDAP/TD VACCINES (2 - Td or Tdap) 04/07/2033 024 Medical Devices Implanted Type Area Coil Placer Device Identifier Shelf Expiration Date Model / Serial / Lot Interstim Implant Coil Target 3d 3mm 6cm - [id number] Implanted:Qty: 1 on 05/03/2020 by Jerome Hays MD at [facility] Implant [employer] [id number] / / Coil Target Detach 360 Nikia 2mm 3cm - [id number] Implanted:Qty: 1 on 05/03/2020 by Jerome Hays MD at [facility] Implant [employer] [id number] / / Explanted Type Area Coil Placer Device Identifier Shelf Expiration Date Model / Serial / Lot Coil Axium [place] 3d Sys [id number] - [id number] Explanted:Qty: 1 on 05/03/2020 at [facility] Implant [employer] [id number] / / Description:Did not detach t he coil Coil Axium [place] 3d Sys 4mm 6cm - [id number] Explanted:Qty: 1 on 05/03/2020 at [facility] Implant EV3 A [employer] [id number] / / Description:Coil removed Coil Axium Prime 3d Xsft 3mm 4cm - [id number] Explanted:Qty: 1 on 05/03/2020 at [facility] Implant [employer] [id number] / / Description:Coil removedf Coil Axium [place] 3d Sys 3x4mm - [id number] Explanted:Qty: 1 on 05/03/2020 at [facility] Implant EV3 A [employer] [id number] / / Description:Coil removed Insurance [facility] BLUE CROSS BLUE SHIELD PPO MEDICARE A & B Advance Directives Documents on File Type Date Recorded Patient Edi Coordinator Expl anation LIVING WILL - SCAN 05/03/2020 6:50 AM HILARIO NG WILL * CPR (Attempt to Resuscitate) (Latest Code Status on File) Date Activated Date Inactivated Comments 05/03/2020 2:28 PM 05/04/2020 2:06 PM Question Answer Comments Code Status (Patient has no pulse and is not breathing): CPR (Attempt to Resuscitate) Medical Interventions (Patie nt has pulse or is breathing): Full Level Of Support Discussed With: Patient Care Teams Warping Machine Operator Relationship Specialty Start Date End Date Chase Gunn MD [address] [facility] [address] [place] [address] PCP - General Family Medicine 04/10/20
--- OUTSIDE RECORDS SUMMARY | 2024-09-03 16:48 | XMS_ITS | Encounter Summary ---
Author Organization [facility] Address [address] [place] [address] Care Team Providers Care Merchandise Planning Manager Name Role Phone Chase Gunn MD Primary Care Provider [phone] Encounter Details Date Type Department Care Team ([facility] st Contact Info) Description 07/24/2024 Telephone [facility] [address] [facility], [address] [place] [address] Edis Ha [facility] [address] [place] [address] Social History Tobacco Use Types Packs/Day Years Used Date Smoking Tobacco: Never Smokeless Tobacco: Never Alcohol Use Standard Drinks/Week Comments Never 0 (1 standard drink = 0.6 oz pur e alcohol) Comments Unknown Sex and Gender Information Value Date Recorded Sex Assigned at Not on file Legal Sex Female 6:06 PM EDT Gender Identity Not on file Sexual Orientation Not on file documented as of this encounter Miscellaneous Notes * Telephone Encounter - Edis Ha - 07/24/2024 2:21 PM EDT Her said she just had knee surgery and needs to reschedule [facility] documented in this encounter Plan of Treatment Not on file documented as of this encounter Visit Diagnoses Not on filedocumented in this encounter Care Teams Merchandise Planning Manager Relationship Specialty Start Date End Date Chase Gunn MD [address] [facility] [address] [place] [address] PCP - General 06/21/20 documented as of this encounter
--- OUTSIDE RECORDS SUMMARY | 2024-09-03 16:48 | XMS_ITS | Data Portability ---
Author Organization [place] [facility] Address [address] [place] [address] Assessment Encounter Date Assessment Date Assessment LastModified by Organization Details LastModified Time 07/21/2023 07/21/2023 This patient was a new patient that was seen in our [place] office. Approximately 2 months ago the patient [...] balloon kyphoplasty to be done in the [facility]. Will plan on doing this next [...] prednisone 20 mg tablet 2023 024 [facility], [address] [place], [address], 09:11:49 Percocet 10 mg-325 mg tablet 2023 024 [facility], [address] [place], [address], 09:11:48 Patient TargetsNo targets recorded. Patient InstructionsNo instructions recorded. Reason for Referral None Reported. Results Created Date Observation Date Name Description Value Unit Range Abnormal Flag Note LastModifiedBy Organization Detail LastModifiedTime 07/23/1911/05/2021 CT, angio gram, head + neck, w/wo contr ast No observ ation record ed. [email or web address] Not Available 2023 09:07:11 Result Notes None recorded. Problems Name Problem SNOMED Code Status Onset Date Resolution Date Notes Provider Name and Address Organization Details Recorded Time Compression fracture of lumbar spine 250302091 Active 2023 Cameron Hatfield MD [address], [address], [place] [facility] 17:32:06 Problem Notes None recorded. Procedures Surgical History Date Name Laterality Status Provider Name and Address Organization Details Recorded Time 07/28/19 24 Kyphoplasty completed Cameron Hatfield MD [address] [facility],[address], [address], [place] [facility] 07/28/2023 [...] Pain Management 07/19/2023 09:48:50 cholecystectomy completed CESIA AGUIRRES [place] [facility] 07/19/2023 09:48:54 colonoscopy completed CESIA AGUIRRES [place] [facility] 07/19/2023 09:49:03 Imaging Results None recorded. Procedure Notes None [...] Updated DateTime 07/21/2023 165.1 cm 32.3 kg/m2 17622.92 g Griselda Cortez [place] [facility] 07/21/2023 13:34:12 Date Recorded Body height Body mass index (BMI) Body weight Oxygen saturation Oxygen saturation in Arterial blood by Pulse oximetry Heart rate Pain severity - 0-10 verbal numeric rating [Score] - Reported Systolic And Diastolic Provider Name and Address Organization Details Last Updated DateTime 165.1 cm 32.3 kg/m2 59652.9 2 g 96 % 96 % 60 /min 10 112/60 mm[Hg] CESIA SANTIZO [place] [facility] 13:32:03 Social History Question Answer Notes LastModified by [employer] Details LastModified Time Tobacco Smoking Status Never Smoker CESIA SANTIZO null, [place] [facility] 07/19/2023 09:49:17 In The 14 Days Before Symptom Onset, Have You Had Close Contact With A Laboratory-confirm ed COVID-19 While That Case Was Ill? No [email or web address] Information n ot available 07/19/2023 In The 14 Days Before Symptom Onset, Have You Had Close Contact With A Person Who Is Under Investigation For COVID-19 While That Person Was Ill? No [email or web address] Information not available 07/19/2023 Have You Been To An Area Known To Be High Risk For COVID-19? No [email or web address] Information not available 07/19/2023 Sex: Unknown Functional Status Question Answer Note LastModified by [employer] Details LastModified Time Do you use any illicit or recreational drugs? No [email or web address] Information not available 07/19/2023 Do you or have you ever used any other forms of tobacco or nicotine? No [email or web address] Information not available 07/19/2023 What is your level of alcohol consumption? None [email or web address] Information not available 07/19/2023 Mental Status None recorded. Family History Nothing Reported. Medical History Condition Response Coronary Artery Disease N Gout N Hernia N Head Trauma/Injury N Depression Y COPD N Anxiety Disorder N Arthritis N Acid Reflux (GERD) N Cancer N Stroke N Back Injury N High Cholesterol N Liver Disease N Headaches N Fibromyalgia N Kidney Disease Y Thyroid Problems N Anemia N Ulcers N Heart Attack (RI) N Diabetes Y Bleeding Disorder N Tuberculosis N AIDS/HIV N Asthma N Substance Abuse N Hepatitis N Heart Disease N Hypertension Y Osteoporosis N Gynecological HistoryNo gynecological history recorded. Obstetrics History GPAL:G 0 P 0 0 0 0 Past Encounters Encounter ID Performer Location Encounter Start Date Encounter Closed Date Diagnosis/Indication Diagnosis SNOMED-CT Code Diagnosis ICD10 Code Diagnosis Note [id number] Cameron Hatfield MD [address] [place] [address] [place] [phone] 07/21/2023 13:23:28 07/21/2023 14:17:16 Degeneration of lumbar intervertebral disc 93924028 M51.36 Compressio n fracture of lumbar spine 123348044 M48.56XA Lumbar radiculopathy 128 343657 M54.16 Lumbar spondylosis 67718 0009 M47.896 [id number] Cameron Hatfield MD [facility] [address] [place] [address] [place] [id number] 07/28/2023 13:04:24 07/28/2023 17:13:51 Compression fracture of lumbar spine 895141703 M48.56XA Health Concerns Section Related Observation LastModified by Organization Detai ls LastModified Time None Recorded Concern Status LastModified by Organization Details LastModified Time None Recorded Advance Directives Directive None Recorded Payers Insurance Date Sequence Insurance Name Policy Number Policy Batista Covered Member ID Batista Member ID Guarantor Name 09/17/2023 2 [place] [id number] Westley Kamala [id number] 09/17/2023 1 [place] Rosa Huston Kamala [id number] Rosa Kamala Notes Date Note Type Note Provider Name and Address Organization Details Recorded Time 4 text/html Low back painReported by PatientHPIFor onset, patient reports5 years. For location, patient reportsleft paraspinal. For context, patient reportsfall(she fell june 28 and had a compression fracture). For quality, patient reportsstabbing,sharp, andconstant. For severity, patient reportscurrent pain level: 8/10andaverage pain level: 9/10. For alleviating factors, patient reportsopioids. For aggravating factors, patient reportsstanding,walking,l ifting,carrying,bending/s quatting, andpushing/pulling. For timing, patient reportsconstant. For associated symptoms, patient reportsno weakness,no numbness,no tingling,no pain radiating down lower extremities,no swelling,no popping/clicking,no bowel incontinence,no urinary retention,no urinary incontinence, andno perineal paresthesia/anesthesia. For previous lumbar surgery, patient reportsnone. For previous injections, patient reportslumbar esis: helped significantly. For previous physical therapy, patient [id number] of pt completedandresponse to therapy: temporary pain/symptoms improvement. Cameron Hatfield MD [address], [address], [place] [facility] 07/21/2023 17:40:01 4 text/html Low back painReported by PatientHPIFor onset, patient reports5 years. For location, patient reportsleft paraspinal. For context, patient reportsfall(she fell june 28 and had a compression fracture). For quality, patient reportsstabbing,sharp, andconstant. For severity, patient reportscurrent pain level: 10/10andaverage pain level: 9/10. For alleviating factors, patient reportsopioids. For aggravating factors, patient reportsstanding,walking,l ifting,carrying,bending/s quatting, andpushing/pulling. For timing, patient reportsconstant. For associated symptoms, patient reportsno weakness,no numbness,no tingling,no pain radiating down lower extremities,no swelling,no popping/clicking,no bowel incontinence,no urinary retention,no urinary incontinence, andno perineal paresthesia/anesthesia. For previous lumbar surgery, patient reportsnone. For previous injections, patient reportslumbar esis: helped significantly. For previous physical therapy, patient [email or web address] of pt completedandresponse to therapy: temporary pain/symptoms improvement. Cameron Hatfield MD [address], [address], [place] [facility] 07/28/2023 17:34:07 OBGyn Episode No OBEpisode recorded.
--- OUTSIDE RECORDS SUMMARY | 2024-09-03 16:48 | XMS_ITS | Data Portability ---
Author Organization [facility] [place] CL[place] Address [address] [address] [place] [address] Care Team Providers Care Inspector Optical Instrument Name Role Phone VALERIA LOCKETTIAN Primary Care Provider [phone] Assessment Encounter Date Assessment Date Assessment LastModified by Organization Details LastModified Time 11/22/2023 11/22/2023 We discussed options of removal of InterStim with or without replacement of MRI compatible device. She does not wish to have replacement. She wishes to have removal of InterStim and all components. She is initiated on Solifenacin for medical management of lower urinary symptoms. [email or web address] Not available 11/28/2023 11:31:22 12/30/2023 12/30/2023 SURGERY [...] to the recovery room in stable condition. [email or web address] Not available 12/30/2023 10:46:30 01/28/2024 01/28/2024 Switch [...] Modified Time Details Appointments RECHECK 2024 04:00P M JOSE AMIN MD Not available Not available Not available Lab urinalysi s panel, auto 2023 024 [email or web address] [facility], [address], [facility] [address], [place], [address], 01/30/2024 09:04:10 Referral None recorded. Procedures None recorded. Surgeries revision or removal of periphera l or gastric neurostim ulator pulse generator or supervisor mails (SURG) 2023 024 [email or web address] [facility], [address] [facility], [place], [address], 02/18/2024 16:45:09 Imaging None recorded. Medication Orders trospium 20 mg tablet 2024 025 [facility] [place], [address], 06/15/2024 15:55:49 darifenac in ER 15 mg tablet,ex tended release 24 hr 2023 024 [facility], [place], [address], 04/26/2024 12:58:15 hydrocodo ne 7.5 mg-acetam inophen 325 mg tablet 2023 024 [facility], [place], [address], 12/30/2023 10:50:21 solifenac in 10 mg tablet 2023 024 [facility], [place], [address], 01/28/2024 11:08:14 Patient TargetsNo targets recorded. Patient Instructions Encounter Date Encounter Id Patient Instructions Last Modified By Organization Details Last Modified Time 06/15/2024 [id number] - Begin taking trazodone as directed. - [...] INDIC ATED color Yellow normal Not Available [facility], [place], [address], 12/30/2023 11:06:58 12/30/1912/30/2023 UA WITH CULTU RE IF INDIC ATED appearance Light turbid normal Not Available [facility] [address] [place] [address], [address], 12/30/2023 11:06:58 12/30/1912/30/2023 UA WITH CULTU RE IF INDIC ATED glucose 1000 mg/dL normal abnormal Not Available [facility] [address] [place] [address], [address], 12/30/2023 11:06:58 12/30/1912/30/2023 UA WITH CULTU RE IF INDIC ATED bilirubin Negati ve mg/dL negati ve normal Not Available [facility] [address] [place] [address], [address], 12/30/2023 11:06:58 12/30/1912/30/2023 UA WITH CULTU RE IF INDIC ATED ketone Negati ve mg/dL negati ve normal Not Available [facility] [address] [place] [address], [address], 12/30/2023 11:06:58 12/30/1912/30/2023 UA WITH CULTU RE IF INDIC ATED specific gravity 1.034 1.003- 1.035 normal Not Available [facility] [address] [place] [address], [address], 12/30/2023 11:06:58 12/30/1912/30/2023 UA WITH CULTU RE IF INDIC ATED blood 10 /uL negati ve abnormal Not Available [facility] [address] [place] [address], [address], 12/30/2023 11:06:58 12/30/1912/30/2023 UA WITH CULTU RE IF INDIC ATED pH 5 5.0 - 8.0 normal Not Available [facility] [address] [place] [address], [address], 12/30/2023 11:06:58 12/30/19 12/30/2023 UA WITH CULTU RE IF INDIC ATED protein Negati ve mg/dL negati ve normal Not Available [facility] [address] [place] [address], [address], 12/30/2023 11:06:58 12/30/19 24 12/30/2023 UA WITH CULTU RE IF INDIC ATED urobilinogen Normal mg/dL normal normal Not Available [facility] [address] [place] [address], [address], 12/30/2023 11:06:58 12/30/19 24 12/30/2023 UA WITH CULTU RE IF INDIC ATED nitrite Negati ve negati ve normal Not Available [facility] [address] [place] [address], [address], 12/30/2023 11:06:58 12/30/19 24 12/30/2023 UA WITH CULTU RE IF INDIC ATED leukocyte esterase Negati ve /uL negati ve normal Not Available [facility] [address] [place] [address], [address], 12/30/2023 11:06:58 12/30/19 24 12/30/2023 UA WITH CULTU RE IF INDIC ATED WBC, urine 10-20 0-5/hp f abnormal Not Available [facility] [address] [place] [address], [address], 12/30/2023 11:06:58 12/30/19 24 12/30/2023 UA WITH CULTU RE IF INDIC ATED RBC, urine 0-2 0-2/hp f normal Not Available [facility] [address] [place] [address], [address], 12/30/2023 11:06:58 12/30/19 24 12/30/2023 UA WITH CULTU RE IF INDIC ATED squamous epi. cells 0-5 0-5/hp f normal Not Available [facility] [address] [place] [address], [address], 12/30/2023 11:06:58 12/30/19 24 12/30/2023 UA WITH CULTU RE IF INDIC ATED bacteria 4+ /hpf none seen abnormal Not Available [facility] [address] [place], [address], 12/30/2023 11:06:58 12/30/19 24 12/30/2023 UA WITH CULTU RE IF INDIC ATED reflex culture see below normal Resul ts indic ate a urina ry tract infec tion. Cultu re added . Not Available [facility] [address] [place] [address], [address], 12/30/2023 11:06:58 12/30/19 24 12/30/2023 URINE CULTU RE klebsiella pneumoniae Organi sm: Klebsi ander pneumo niae Not Available [facility] [address] [place] [address], [address], 01/03/2024 10:02:59 12/30/19 24 01/03/2024 URINE CULTU RE urine culture abnormal ISOLA TE #1 COLON Y COUNT : > 100,0 00 CFU/M L Proba ble Gram Negat kaitlin Bacil angela; Seaboard tion In Progr ess. See Seaboard te Resul t(s) Below Klebs iella pneum oniae Not Available [facility] [address] [place], [address], 01/03/2024 10:02:59 12/30/19 24 01/03/2024 URINE CULTU RE amox/K clav'ate(C) <=8/4 ug/mL susceptib le Not Available [facility] [address] [place], [address], 01/03/2024 10:02:59 12/30/19 24 01/03/2024 URINE CULTU RE cefazolin <=2 ug/mL susceptib le Not Available [facility] [address] [place] [address], [address], 01/03/2024 10:02:59 12/30/19 24 01/03/2024 URINE CULTU RE ceftazidime <=1 ug/mL susceptib le Not Available [facility] [address] [place] [address], [address], 01/03/2024 10:02:59 12/30/19 24 01/03/2024 URINE CULTU RE ceftriaxone <=1 ug/mL susceptib le Not Available [facility] [address] [place] [address], [address], 01/03/2024 10:02:59 12/30/19 24 01/03/2024 URINE CULTU RE cefuroxime <=4 ug/mL susceptib le Not Available [facility] [address] [place] [address], [address], 01/03/2024 10:02:59 12/30/19 24 01/03/2024 URINE CULTU RE ciprofloxaci n <=0.25 ug/mL susceptib le Not Available [facility] [address] [place] [address], [address], 01/03/2024 10:02:59 12/30/19 24 01/03/2024 URINE CULTU RE gentamicin <=4 ug/mL susceptib le Not Available [facility] [address] [place] [address], [address], 01/03/2024 10:02:59 12/30/19 24 01/03/2024 URINE CULTU RE imipenem <=1 ug/mL susceptib le Not Available [facility] [address] [place] [address], [address], 01/03/2024 10:02:59 12/30/19 24 01/03/2024 URINE CULTU RE levofloxacin <=0.5 ug/mL susceptib le Not Available [facility] [address] [place] [address], [address], 01/03/2024 10:02:59 12/30/1901 0101/03/2024 URINE CULTU RE nitrofuranto in <=32 ug/mL susceptib le Not Available [facility] [address] [place] [address], [address], 01/03/2024 10:02:59 12/30/19 24 01/03/2024 URINE CULTU RE piperacillin /olya <=16 ug/mL susceptib le Not Available [facility] [address] [place] [address], [address], 01/03/2024 10:02:59 12/30/19 24 01/03/2024 URINE CULTU RE tetracycline <=4 ug/mL susceptib le Not Available [facility] [address] [place] [address], [address], 01/03/2024 10:02:59 12/30/19 24 01/03/2024 URINE CULTU RE tobramycin <=2 ug/mL susceptib le Not Available [facility] [address] [place] [address], [address], 01/03/2024 10:02:59 12/30/19 24 01/03/2024 URINE CULTU RE trimeth/sulf a <=2/38 ug/mL susceptib le Not Available [facility] [address] [place] [address], [address], 01/03/2024 10:02:59 12/30/19 24 12/30/2023 urina lysis panel , auto Unknown Analyte Clean Catch Not Available [facility] Surgery Schedule [address] [place] [address], [address], 12/30/2023 09:37:40 12/30/19 24 12/30/2023 urina lysis panel , auto Unknown Analyte Yellow Not Available [facility] Surgery Schedule [address] [place] [address], [address], 12/30/2023 09:37:40 12/30/19 24 12/30/2023 urina lysis panel , auto Unknown Analyte Slight ly Hazy Not Available [facility] Schedule [address] [place], [address], 12/30/2023 09:37:40 12/30/19 24 12/30/2023 urina lysis panel , auto Unknown Analyte 1.015 Not Available [facility] Surgery Schedule [address] [place], [address], 12/30/2023 09:37:40 12/30/19 24 12/30/2023 urina lysis panel , auto Unknown Analyte 1.003- 1.035 Not Available [facility] Schedule [address] [place], [address], 12/30/2023 09:37:40 12/30/19 24 12/30/2023 urina lysis panel , auto Unknown Analyte 5.0 Not Available [facility] Surgery Schedule [address] [place], [address], 12/30/2023 09:37:40 12/30/19 24 12/30/2023 urina lysis panel , auto Unknown Analyte 5.0-8. 0 Not Available [facility] Surgery Schedule [facility] [place], [address], 12/30/2023 09:37:40 12/30/19 24 12/30/2023 urina lysis panel , auto Unknown Analyte Negati ve Not Available [facility] Surgery Schedule [facility] [place], [address], 12/30/2023 09:37:40 12/30/19 24 12/30/2023 urina lysis panel , auto Unknown Analyte Negati ve Not Available [facility] Surgery Schedule [facility] [place], [address], 12/30/2023 09:37:40 12/30/19 24 12/30/2023 urina lysis panel , auto Unknown Analyte POSITI VE (Abnor mal) Not Available [facility] Schedule [facility] [place], [address], 12/30/2023 09:37:40 12/30/19 24 12/30/2023 urina lysis panel , auto Unknown Analyte Negati ve Not Available [facility] Schedule [address] [place], [address], 12/30/2023 09:37:40 12/30/19 24 12/30/2023 urina lysis panel , auto Unknown Analyte Negati ve Not Available [facility] Surgery Schedule [address] [place], [address], 12/30/2023 09:37:40 12/30/19 24 12/30/2023 urina lysis panel , auto Unknown Analyte Negati ve Not Available [facility] Surgery Schedule [address] [place], [address], 12/30/2023 09:37:40 12/30/19 24 12/30/2023 urina lysis panel , auto Unknown Analyte >1000 mg/dl Not Available [facility] Schedule [address] [place], [address], 12/30/2023 09:37:40 12/30/19 24 12/30/2023 urina lysis panel , auto Unknown Analyte Normal Not Available [facility] Surgery Schedule [address] [place], [address], 12/30/2023 09:37:40 12/30/19 24 12/30/2023 urina lysis panel , auto Unknown Analyte Negati ve Not Available [facility] Surgery Schedule [address] [place], [address], 12/30/2023 09:37:40 12/30/19 24 12/30/2023 urina lysis panel , auto Unknown Analyte Negati ve Not Available [facility] Surgery Schedule [address] [place], [address], 12/30/2023 09:37:40 12/30/19 24 12/30/2023 urina lysis panel , auto Unknown Analyte Normal Not Available [facility] Surgery Schedule [address] [place], [address], 12/30/2023 09:37:40 12/30/19 24 12/30/2023 urina lysis panel , auto Unknown Analyte Normal 1 mg/dl Not Available [facility] Schedule [address] [place], [address], 12/30/2023 09:37:40 12/30/19 24 12/30/2023 urina lysis panel , auto Unknown Analyte Negati ve Not Available [facility] Surgery Schedule [address] [place], [address], 12/30/2023 09:37:40 12/30/19 24 12/30/2023 urina lysis panel , auto Unknown Analyte Negati ve Not Available [facility] Surgery Schedule [address] [place], [address], 12/30/2023 09:37:40 12/30/19 24 12/30/2023 urina lysis panel , auto Unknown Analyte Negati ve Not Available [facility] Surgery Schedule [address] [place], [address], 12/30/2023 09:37:40 12/30/19 24 12/30/2023 urina lysis panel , auto Unknown Analyte Negati ve Not Available [facility] Schedule [address] [place], [address], 12/30/2023 09:37:40 01/28/20 24 01/28/2024 urina lysis panel , auto Unknown Analyte Clean Catch Not Available [facility] [place] [address], [place], [address], 01/28/2024 13:18:47 01/28/20 24 01/28/2024 urina lysis panel , auto Unknown Analyte Yellow Not Available [facility] [place] [address], [place], [address], 01/28/2024 13:18:47 01/28/20 24 01/28/2024 urina lysis panel , auto Unknown Analyte Clear Not Available [facility] [address], [place], [address], 01/28/2024 13:18:47 01/28/20 24 01/28/2024 urina lysis panel , auto Unknown Analyte 1.015 Not Available [facility] [address], [place], [address], 01/28/2024 13:18:47 01/28/20 24 01/28/2024 urina lysis panel , auto Unknown Analyte 1.003- 1.035 Not Available [facility] [address], [place], [address], 01/28/2024 13:18:47 01/28/20 24 01/28/2024 urina lysis panel , auto Unknown Analyte 5.0 Not Available [facility] [address], [place], [address], 01/28/2024 13:18:47 01/28/20 24 01/28/2024 urina lysis panel , auto Unknown Analyte 5.0-8. 0 Not Available [facility] [address], [place], [address], 01/28/2024 13:18:47 01/28/20 24 01/28/2024 urina lysis panel , auto Unknown Analyte Negati ve Not Available [facility] [address], [place], [address], 01/28/2024 13:18:47 01/28/20 24 01/28/2024 urina lysis panel , auto Unknown Analyte Negati ve Not Available [facility] [address], [place], [address], 01/28/2024 13:18:47 01/28/20 24 01/28/2024 urina lysis panel , auto Unknown Analyte Negati ve Not Available [facility] [address], [place], [address], 01/28/2024 13:18:47 01/28/20 24 01/28/2024 urina lysis panel , auto Unknown Analyte Negati ve Not Available [facility] [address], [place], [address], 01/28/2024 13:18:47 01/28/20 24 01/28/2024 urina lysis panel , auto Unknown Analyte Negati ve Not Available [facility] [address], [place], [address], 01/28/2024 13:18:47 01/28/20 24 01/28/2024 urina lysis panel , auto Unknown Analyte Negati ve Not Available [facility] [address], [place], [address], 01/28/2024 13:18:47 01/28/20 24 01/28/2024 urina lysis panel , auto Unknown Analyte >1000 mg/dl Not Available [facility] [address], [place], [address], 01/28/2024 13:18:47 01/28/20 24 01/28/2024 urina lysis panel , auto Unknown Analyte Normal Not Available [facility] [address], [place], [address], 01/28/2024 13:18:47 01/28/20 24 01/28/2024 urina lysis panel , auto Unknown Analyte Negati ve Not Available [facility] [address], [place], [address], 01/28/2024 13:18:47 01/28/20 24 01/28/2024 urina lysis panel , auto Unknown Analyte Negati ve Not Available [facility] [address], [place], [address], 01/28/2024 13:18:47 01/28/20 24 01/28/2024 urina lysis panel , auto Unknown Analyte Normal Not Available [facility] [address], [place], [address], 01/28/2024 13:18:47 01/28/20 24 01/28/2024 urina lysis panel , auto Unknown Analyte Normal 1 mg/dl Not Available [facility] [address], [place], [address], 01/28/2024 13:18:47 01/28/20 24 01/28/2024 urina lysis panel , auto Unknown Analyte Negati ve Not Available [facility] [address], [place], [address], 01/28/2024 13:18:47 01/28/20 24 01/28/2024 urina lysis panel , auto Unknown Analyte Negati ve Not Available [facility] [address], [place], [address], 01/28/2024 13:18:47 01/28/20 24 01/28/2024 urina lysis panel , auto Unknown Analyte Negati ve Not Available [facility] [address], [place], [address], 01/28/2024 13:18:47 01/28/20 24 01/28/2024 urina lysis panel , auto Unknown Analyte Negati ve Not Available [facility] [address], [place], [address], 01/28/2024 13:18:47 Result Notes None recorded. Problems Name Problem SNOMED Code Status Onset Date Resolution Date Notes Provider Name and Address Organization Details Recorded Time Overactive urinary bladder 517380066 Active 024 JOSE AMIN MD [address] [place] [address], [address] [place] [address] 15:59:10 Problem Notes None recorded. Procedures Surgical History Date Name Laterality Status Provider Name and Address Organization Details Recorded Time cholecystectomy completed [facility] 11/22/2023 14:47:43 Carpal tunnel surgery completed [facility] 11/22/2023 14:47:59 hernia repair completed [facility] 11/22/2023 14:48:23 biopsy completed [facility] 11/22/2023 14:48:59 Tubal Ligation completed [facility] 11/22/2023 14:49:07 procedure on finger completed Eani Richards [facility] 11/22/2023 14:49:32 Cerebral Aneurysm completed Anthony Richards [facility] 11/22/2023 14:50:43 Imaging Results None recorded. Procedure Notes None recorded. Medical Equipment None Reported. Allergies Allergen ID Allergen Name Allergen Category Reaction Reaction Severity Criticality Documentation Date Start Date Code Code System Note Provider Name and Address Organization Details Recorded Time [id number] Ozempic medicatio n Not available Not available Not available 11/22/2023 [facility] 14:[facility] Medications Name Sig Start Date [...] Updated DateTime 06/15/2024 165.1 cm 30 kg/m2 06941.63 g Torie Nadine [facility] 06/15/2024 16:02:09 Date Recorded Body height Body mass index (BMI) Body weight Provider Name and Address Organization Details Last Updated DateTime 11/22/2023 165.1 cm 30.6 kg/m2 95407 g Anthony Richards [facility] 11/22/2023 14:40:59 Date Recorded Body height Body mass index (BMI) Body weight Provider Name and Address Organization Details Last Updated DateTime 01/28/2024 165.1 cm 30.6 kg/m2 23368 g Jacinta Irving [facility] 01/28/2024 11:07:04 Social History Question Answer Notes LastModified by Organizat ion Details LastModified Time Tobacco Smoking Status Never Smoker Anthony Richards [facility] 11/22/2023 14:47:17 What Was The Date Of Your Most Recent Tobacco Screening? 06/15/2024 Information not available 06/15/2024 What Is Your Relationship Status? [email or web address] Information not available 11/22/2023 Has Tobacco Cessation Counseling Been Provided? No [email or web address] Information not available 11/22/2023 Sex: Unknown Functional Status Question Answer Note LastModified by Organizat ion Details LastModified Time Do you use any illicit or recreational drugs? No [email or web address] Information not available 11/22/2023 Do you or have you ever used any other forms of tobacco or nicotine? No [email or web address] Information not available 11/22/2023 What is your level of alcohol consumption? None [email or web address] Information not available 11/22/2023 Are you currently employed? No retired [email or web address] Information not available 11/22/2023 Mental Status None recorded. Family History Relationship Description Onset Age of this Age Resolved Age Notes LastModified by Organization Details LastModified Time Father No current problems or disability [email or web address] Not available 14:47:07 Mother No current problems or disability [email or web address] Not available 14:47:07 Medical History Condition Response Diabetes Y Anemia Y Arthritis Y Stroke Y Hypertension Y Gynecological HistoryNo gynecological history recorded. Obstetrics History GPAL:G 0 P 0 0 0 0 Past Encounters Encounter ID Performer Location Encounter Start Date Encounter Closed Date Diagnosis/Indication Diagnosis SNOMED-CT Code Diagnosis ICD10 Code Diagnosis Note [id number] JOSE AMIN MD [facility] [address] [place] [id number] 11/22/2023 15:47:47 11/22/2023 16:02:55 Overactive urinary bladder 895740504 N32.81 Urge incon tinence of urine 26461433 N39.41 [id number] JOSE AMIN MD SURGERY SCHEDULE [address] [place] [address] 12/30/2023 08:00:22 12/30/2023 08:00:43 Postoperative pain 460240875 G89.18 [id number] JOSE AMIN [facility] [address] [id number] 01/28/2024 10:00:18 01/28/2024 11:10:43 Overactive urinary bladder 652075757 N32.81 Urge incon tinence of urine 04538470 N39.41 [id number] JOSE AMIN MD [facility] [address] [place] [address],[address] [place] [address] 06/15/2024 15:41:59 06/15/2024 16:23:09 Overactive urinary bladder [id number] N32.81 - Initiate trazodone. - Consider Botox if symptoms persist. - Monitor trospium efficacy. - Discuss consent for Botox. Urge incon tinence of urine [id number] N39.41 - Trospium prescribed . - Possible [...] Batista Member ID Guarantor Name 06/12/2024 1 [place] (MED[place]ARE) Rosa Huston Kamala [id number] Rosa Huston Kamala 06/12/2024 2 [place] [id number] Rosa Kamala [id number] Rosa Huston Kamala Notes Date Note Type Note Provider Name and Address Organization Details Recorded Time 11/22/2023 text/html 72-year-old female in the office for my initial evaluation [...] states she needs MRI. JOSE AMIN MD [address] [place] [address], [phone], [facility] 11/28/2023 11:32:03 01/28/2024 text/html 73-year-old female in the office for follow-up evaluation status [...] No hematuria or dysuria. JOSE AMIN MD [address] [place] [address] [place], [address], [facility] 01/30/2024 09:04:23 06/15/2024 text/html - The patient [...] treatment for the condition. JOSE AMIN [place] [facility] [place], [address], [facility] - [facility] 06/16/2024 08:49:30 OBGyn Episode No OBEpisode recorded.
--- OUTSIDE RECORDS SUMMARY | 2024-09-03 16:48 | XMS_ITS | Data Portability ---
Author Organization [facility] [place] [facility] LALO Pittman ADMIN Address [address] [place] [address] Care Team Providers Care [place] Consultant Name Role Phone TOMMIE WOODS JR Referring Provider DARIELA LOCKETT Primary Care Provider [phone] Assessment Encounter Date Assessment Date Assessment LastModified by Organization Details LastModified Time 09/30/2022 09/30/2022 Will start Gemtesa 75 mg daily, sample pack given. Phone visit in 6 weeks for update on her response to treatment. Briefly discussed InterStim removal which I do not feel is strongly indicated at this time. [email or web address] Not available 09/30/2022 15:09:06 11/16/2022 11/16/2022 The patient has had an excellent response to Gemtesa. we will continue this medication and will provide sample medication until we can get her prescription settled. We will see her at six-month intervals as a basis. Not available 11/16/2022 13:55:22 Plan of Treatment Reminders Order Date Submit Date Provider Last Modified By Organization Details Last Modified Time Details Appointments None recorded. Lab urinalysis, dipstick 2023 024 [email or web address] [facility], [address] [place] [address], [address], [place], [address], 4 10:55:38 urinalysis, dipstick 2022 023 [email or web address] [facility], [address] [place] [address], [address], [place], [address], 15:11:33 Referral None recorded. Procedures None recorded. Surgeries None recorded. Imaging None recorded. Medication Orders oxybutynin chloride ER 15 mg tablet,exte nded release 24 hr 2023 024 CHRIS MerinoFinancuba [facility], [place], [address], 4 10:53:39 Gemtesa 75 mg tablet 2022 023 CHRISDANIEL MerinoFinancuba [facility], [place], [address], 13:53:03 Patient TargetsNo targets recorded. Patient InstructionsNo instructions recorded. Reason for Referral None Reported. Results Created Date Observation Date Name Description Value Unit Range Abnormal Flag Note LastModifiedBy Organization Detail LastModifiedTime 10/01/1909/30/2022 urina lysis , dipst ick Leukocytes (reference range) negati ve Not Available [facility] [address] [place] [address], [phone], 09/30/2022 14:13:09 10/01/1909/30/2022 urina lysis , dipst ick Nitrite (reference range:) negati ve Not Available [facility] [address] [place] [address], [address], 09/30/2022 14:13:09 10/01/1909/30/2022 urina lysis , dipst ick Urobilinogen (reference range) 0.2 Not Available [facility] [address] [place] [address], [address], 09/30/2022 14:13:09 10/01/1909/30/2022 urina lysis , dipst ick Protein (reference range) negati ve Not Available [facility] [address] [place] [address], [address], 09/30/2022 14:13:09 10/01/1909/30/2022 urina lysis , dipst ick pH (reference range 5-8.5) 6.[address] Not [address] [facility] [address] [place] [address] [address], [place], [address], 09/30/2022 14:13:09 10/01/1909/30/2022 urina lysis , dipst ick Blood (reference range:) negati ve Not Available [address], [place], [address], 09/30/2022 14:13:09 10/01/1909/30/2022 urina lysis , dipst ick Specific Knott (reference range) 1.015 Not Available [address], [place], [address], 09/30/2022 14:13:09 10/01/1909/30/2022 urina lysis , dipst ick Ketone (reference range) negati ve Not Available [address], [place], [address], 09/30/2022 14:13:09 10/01/1909/30/2022 urina lysis , dipst ick Bilirubin (reference range) negati ve Not Available [address], [place], [address], 09/30/2022 14:13:09 10/01/1909/30/2022 urina lysis , dipst ick Glucose (reference range) negati ve Not Available [address], [place], [address], 09/30/2022 14:13:09 10/01/1909/30/2022 urina lysis , dipst ick Color (reference range: yellow-brown ) Yellow Not Available [facility] [address], [place], [address], 09/30/2022 14:13:09 05/18/19 24 05/18/2023 urina lysis , dipst ick Leukocytes (reference range) negati ve Not Available [facility], [place], [address], 05/18/2023 10:38:41 05/18/19 24 05/18/2023 urina lysis , dipst ick Nitrite (reference range:) negati ve Not Available [address], [place], [address], 05/18/2023 10:38:41 05/18/19 24 05/18/2023 urina lysis , dipst ick Urobilinogen (reference range) 0.2 Not Available [facility] [address], [place], [address], 05/18/2023 10:38:41 05/18/19 24 05/18/2023 urina lysis , dipst ick Protein (reference range) negati ve Not Available [address], [place], [address], 05/18/2023 10:38:41 05/18/19 24 05/18/2023 urina lysis , dipst ick pH (reference range 5-8.5) 5.0 Not [address] [facility] [address] [place] [address] [address], [place], [address], 05/18/2023 10:38:41 05/18/19 24 05/18/2023 urina lysis , dipst ick Blood (reference range:) negati ve Not Available [address], [place], [address], 05/18/2023 10:38:41 05/18/19 24 05/18/2023 urina lysis , dipst ick Specific Knott (reference range) 1.010 Not Available [address], [address], 05/18/2023 10:38:41 05/18/19 24 05/18/2023 urina lysis , dipst ick Ketone (reference range) negati ve Not Available [address], [address], 05/18/2023 10:38:41 05/18/19 24 05/18/2023 urina lysis , dipst ick Bilirubin (reference range) negati ve Not Available [address], [address], 05/18/2023 10:38:41 05/18/19 24 05/18/2023 urina lysis , dipst ick Glucose (reference range) negati ve Not Available [address], [address], 05/18/2023 10:38:41 05/18/19 24 05/18/2023 urina lysis , dipst ick Color (reference range: yellow-brown ) Yellow Not Available [address], [address], 05/18/2023 10:38:41 Result Notes None recorded. Problems [...] index (BMI) Body weight Body temperature Systolic And Diastolic Provider Name and Address Organization Details Last Updated DateTime 05/18/2023 165.1 cm 34.1 kg/m2 82573.4 4 g 97.7 [degF] 120/76 mm[Hg] Cony Lopez [facility] [place] 10:38:11 Date Recorded Body height Body mass index (BMI) Body weight Systolic And Diastolic Provider Name and Address Organization Details Last Updated DateTime 09/30/2022 165.1 cm 34.1 kg/m2 24066.44 g 120/70 mm[Hg] Yenni Jiang [facility] & [place] 09/30/2022 14:14:18 Social History None recorded. Functional Status None [...] SNOMED-CT Code Diagnosis ICD10 Code Diagnosis Note [id number] Jamshid Martel MD [facility] [address] [place] [address] 02/25/2022 09:26:18 02/25/2022 09:54:53 [id number] Ebenezer Calero MD [facility] [address] [place] [address],[address] [place] [address] 09/30/2022 13:58:14 09/30/2022 15:19:08 Female stress incontinence 89561130 N39.3 Nocturia 728619067 R35.1 [id number] Ebenezer Calero MD [facility] [address] [place] [address],[address] [place] [address] 11/16/2022 13:43:46 11/16/2022 13:50:45 Female stress incontinence 27635059 N39.3 Nocturia 600773816 R35.1 [id number] Mindy Angel NP, S [facility] [address] [place] [address],[address] [place] [address] 05/18/2023 10:18:17 05/18/2023 10:49:35 Female stress incontinence 99916563 N39.3 Nocturia 704693598 R35.1 Mixed urin amy incontinence 028508219 N39.46 UA clearStart Oxybutynin 15mg daily. Discussed [...] Member ID Batista Member ID Guarantor Name 07/31/2024 1 [place] Rosa Robel Kamala [id number] Rosa Huston Kamala 07/31/2024 2 [place]) [id number] Westley Kamala [id number] Rosa Huston Kamala Notes Date Note Type Note Provider Name and Address Organization Details Recorded Time 09/30/2022 text/html ROS as noted in the HPI The patient returns to clinic today for [...] hematuria. Ebenezer Calero MD [address], [place], [address], [facility] & [place] 09/30/2022 15:09:28 11/16/2022 text/html ROS as noted in the HPI Phone consult Telephone consultation conducted with patient [...] history: Ebenezer Calero MD [address], [place], [address], [facility] & [place] 11/16/2022 13:55:54 05/18/2023 text/html 72 yowf presents [...] blood sugars are under control. Mindy Angel, [facility], [address], [place], [address], [facility] - [place] & [place] 05/18/2023 10:53:04 OBGyn Episode No OBEpisode recorded.
--- OUTSIDE RECORDS SUMMARY | 2024-09-03 16:48 | XMS_ITS | Clinical Summary ---
Author Organization Healthcare Address [address] [place] [address] Care Team Providers Care Expander Name Role Phone Chase Gunn MD Primary Care Provider + [phone] Allergies No known active allergies Medications amitriptyline (Elavil) 25 MG tablet Take 1 tablet (25 mg) by mouth 1 (one) time each day. Active aspirin 81 MG EC tablet Take 1 tablet (81 mg) by mouth 1 (one) time each day. Active ferrous sulfate 325 (65 Fe) MG tablet Take 1 tablet (325 mg) by mouth 3 times a day. Active SITagliptin (Januvia) 100 MG tablet Take 1 tablet (100 mg) by mouth 1 (one) time each day. Active carvedilol (Coreg) 25 MG tablet Take 1 tablet (25 mg) by mouth 2 (two) times a day with meals. Active clonazePAM (KlonoPIN) 1 MG disintegrating tablet Take 1 tablet (1 mg) by mouth 2 (two) times a day if needed for seizures. Active empagliflozin-metF ORMIN ER (Synjardy XR) 12.5-1000 MG 24 hr tablet Take 2 tablets by mouth 1 (one) time each day with breakfast. Active Finerenone 10 MG tablet Take by mouth. Activ e mupirocin (Bactroban) 2 % ointment Apply 1 Application topically 2 (two) times a day. Active pantoprazole (Protonix) 40 MG EC tablet Take 1 tablet (40 mg) by mouth 2 (two) times a day. Do not crush, chew, or split. Active rosuvastatin (Crestor) 10 MG tablet Take 1 tablet (10 mg) by mouth 1 (one) time each day. Active traMADol (Ultram) 50 MG tablet Take by mouth. Ac tive Vortioxetine HBr 20 MG tablet Take by mouth. Ac tive Active Problems Problem Noted Date Diagnosed Date Hypertension 02/29/2024 Diabetes mellitus 02/29/2024 Encounters Date Type Department Care Team Description 07/24/2024 Telephone Professional [facility] Nephrology, Bone & Mineral Metabolism [address] [facility], [address] [place] [address] Edis Ha from Last 3 Months Immunizations Immunization Administration Dates Next Due Influenza, High-dose, Split Virus, Trivalent, Injectable, preservative free 11/05/2016 Influenza, injectable, quadrivalent, preservativ e free 11/19/2017 Tdap 04/08/2023 Social History Tobacco Use Types Packs/Day Years Used Date Smoking Tobacco: Never Smokeless Tobacco: Never Tobacco Cessation:Counseling Given: Not Answered Alcohol Use Standard Drinks/Week Comments Never 0 (1 standard drink = 0.6 oz pur e alcohol) Comments Unknown Sex and Gender Information Value Date Recorded Sex Assigned at Not on file Legal Sex Female 6:06 PM EDT Gender Identity Not on file Sexual Orientation Not on file Last Filed Vital Signs Vital Sign Reading Time Taken Comments Blood Pressure 123/57 07/30/2022 10:10 AM EDT Pulse 66 07/30/2022 10:10 AM EDT Temperature - - Respiratory Rate - - Oxygen Saturation - - Inhaled Oxygen Concentration - - Weight 89.8 kg (198 lb) 07/30/2022 10:10 AM EDT Height 165.1 cm (5' 5 ) 07/30/2022 10:10 AM EDT Body Mass Index 32.95 07/30/2022 10:10 AM EDT Plan of Treatment Health Maintenance Due Date Last Done Comments [facility]-Bone Density Scan 1950 [facility]-Depression Screening 1950 [facility]-Infant/Child/Adol SDOH Screenings 1950 [facility]- SDOH Screenings 1968 [facility]-Adult SDOH Screenings 1968 CT Colonography 12/20/1995 Colonoscopy 12/20/1995 FIT-DNA 12/20/1995 FIT 12/20/1995 FOBT 12/20/1995 Sigmoidoscopy 12/20/1995 [facility]-Colorectal Cancer Screening 12/20/1995 [facility]-Pneumococcal Vaccine: 50 + Years (1 of 1 - PCV) 2000 [facility]-Zoster Vaccines (1 of 2) 2000 [id number] Vaccine (4 - season) 2023 11/07/2020, 06/20/2020, 05/23/2020 [facility]-Influenza Vaccine (#1) 10/09/202411/19, 11/05/2016 [facility]-RSV Vaccine: 60+ Years o r (1 - 1-dose 75+ series) 2025 [facility]-DTaP,Tdap,and Td Vaccine s (2 - Td or Tdap) 04/07/2033 04/08/2023 HPV Vaccines Aged Out No longer eligi ble based on patient's age to complete this topic [facility]-HIB Vaccines Aged Out No longer e ligible based on patient's age to complete this topic [facility]-Hepatitis A Vaccines Aged Out No longer eligible based on patient's age to complete this topic [facility]-IPV Vaccines Aged Out No longer e ligible based on patient's age to complete this topic [facility]-Rotavirus Vaccines Aged Out No lo nger eligible based on patient's age to complete this topic Medical Devices Implanted Type Area Deckhand Maintenance Device Identifier Shelf Expiration Date Model / Serial / Lot Interstim Bladder Stimulator-01/14 Implanted:01/14 (Quantity not on file) Bladder Stimulator Back Medtronic [id number] / [id number] / Stimulator Lead Medtronic-2017 Implanted:01/14 (Quantity not on file) Lead Back Medtronic [id number] / [id number] / [place] [address] ANTHEM Care Teams Expander Relationship Specialty Start Date End Date Chase Gunn MD [address] [facility] [address] [place] [address] PCP - General 06/21/20
[2024-09-03 16:49] VITALS: BP 167/98; PULSE 68; RESP 19; TEMP 37.3; O2SAT 98; BMI 30.2
[2024-09-03 17:01] LABS: Hematocrit 40.8 % (37.0-47.0); Hemoglobin 13.1 g/dL (12.2-16.2); Immature Granulocytes % 0.2 %; Mean Corpuscular HGB Conc 32.1 g/dL (31.8-35.4); Mean Corpuscular Hemoglobin 32.0 pg (27.0-31.2); Mean Corpuscular Volume 99.8 fl (81-99); Nucleated Red Blood Cells % 0 %; Platelet Count 287 K/mm3 (142-424); Red Blood Count 4.09 M/mm3 (4.20-5.40); Red Cell Distribution Width-SD 46.9 fL; White Blood Count 5.7 K/mm3 (4.8-10.8)
[2024-09-03 17:06] LABS: Microscopic, Urine URINE MICROSCOPIC (MICROSCOPIC)
[2024-09-03 17:12] LABS: Bilirubin,Urine Negative (Negative); Color,Urine YELLOW (Yellow); Glucose,Urine (UA) 3+ (Negative); Ketones,Urine Negative (Negative); Leukocyte Esterase,Urine Negative (Negative); PH,Urine 6.0 (5.0-8.5); Protein,Urine Negative (Negative); Specific Gravity, Urine 1.010 (1.005-1.030); Urobilinogen,Urine 0.2 EU/dl (0.2)
[2024-09-03 17:15] LABS: Albumin Level 4.5 g/dl (3.5-5.0); Chloride 103 mmol/L (98-107); Potassium 4.6 mmoL/L (3.5-5.1); Sodium 135 mmol/L (136-145)
[2024-09-03 17:17] LABS: Activated Partial Thrombo Time 27.4 seconds (22.8-30.6); INR 1.00 (0.9-1.1); Prothrombin Time 11.1 seconds (10.1-12.5)
[2024-09-03 17:18] LABS: Alanine Aminotransferase 21 U/L (12-78); Albumin/Globulin Ratio 1.5 (1.1-1.8); Alkaline Phosphatase 103 U/L (38-126); Anion Gap 11.6 mEq/L (5-15); Aspartate Amino Transferase 29 U/L (14-36); Blood Urea Nitrogen 30 mg/dl (7-17); Calcium 9.7 mg/dl (8.4-10.2); Carbon Dioxide 25 mmol/L (22.0-30.0); Creatine Kinase 57 U/L (30-135); Creatinine Clearance Estimated 65 mL/min (50-200); Creatinine,Serum 0.90 mg/dl (0.52-1.04); Estimated Glomerular Filt Rate 61 ml/min (>60); GFR (African American) 74 ML/MIN (>60); Globulin 3.0 g/dL (1.3-3.2); Glucose 242 mg/dl (74-100); Total Protein,Serum 7.5 g/dl (6.3-8.2)
[2024-09-03 17:19] LABS: Bacteria,Urine Trace /lpf; WBC,Urine Occasional #/hpf (0-3)
[2024-09-03 17:19] LABS: Bilirubin,Total 0.1 mg/dl (0.2-1.3)
[2024-09-03 17:24] LABS: C-Reactive Protein 5.8 mg/L (0-4)
--- NOTE | 2024-09-03 17:28 | HMH.EDGENADL ---
Discharge Plan Disposition Patient Disposition: Home, Self-Care Prescriptions Prescriptions: New dicloxacillin 500 mg capsule 500 mg PO Q6H 5 Days Qty: 20 0RF valacyclovir [Valtrex] 1 gram tablet 1,000 mg PO Q8H 7 Days Qty: 21 0RF gabapentin 300 mg capsule 300 mg PO .qhs PRN (Reason: pain) 14 Days Qty: 14 0RF No Action carvedilol 25 mg tablet 25 mg PO BID guanfacine 1 mg tablet 1 mg PO DAILY darifenacin 15 mg tablet extended release 24 hr 15 mg PO ONCE Kerendia 10 mg tablet 10 mg PO DAILY saxagliptin 5 mg tablet 5 mg PO DAILY calcium carbonate [Calcium 600] 600 mg calcium (1,500 mg) tablet 600 mg PO DAILY Adult 50 Plus Probiotic 4 billion cell capsule 4,000 mmu cells PO DAILY Rx Instructions: administer with a meal irbesartan 300 mg tablet 300 mg PO DAILY multivitamin Tablet 1 tab PO DAILY Voquezna 10 mg tablet 10 mg PO DAILY trospium 20 mg tablet PO Gemtesa 75 mg tablet PO clobetasol 0.05 % cream 1 applic topical DAILY Qty: 60 0RF triamcinolone acetonide 0.5 % ointment 1 applic topical TID Qty: 15 0RF amoxicillin 875 mg tablet 875 mg PO Q12H 10 Days Qty: 20 0RF clonazepam [Klonopin] 1 mg tablet 1 mg PO BIDP PRN (Reason: Anxiety) Synjardy XR 12.5-1,000 mg tablet, IR - ER, biphasic 24hr 2 tab PO DAILY mirabegron [Myrbetriq] 50 mg tablet extended release 24 hr 50 mg PO DAILY Qty: 30 0RF hydralazine 25 mg tablet See Rx Instructions .ROUTE .COMPLEX Qty: 90 3RF Dose Instruction: TAKE 1 TABLET BY MOUTH DAILY Rx Instructions: TAKE 1 TABLET BY MOUTH DAILY aspirin 81 mg Tablet,Delayed Release (Dr/Ec) 81 mg PO DAILY ferrous sulfate 325 mg (65 mg iron) Tablet,Delayed Release (Dr/Ec) 325 mg PO TID pantoprazole 40 mg tablet,delayed release (DR/EC) 40 mg PO BID rosuvastatin 10 mg tablet 10 mg PO HS amitriptyline 25 mg tablet 25 mg PO HS Trintellix 20 mg tablet 20 mg PO DAILY Referrals Follow up/Referrals: Chase Gunn MD [Primary Care Provider, Medical] - See instructions Activity Restrictions/Add. Instructions Additional Instructions/Restrictions: Your labs are essentially unremarkable and the working diagnosis at the moment is a varicella-zoster or shingles rash. You have been covered with antiviral medications and we have also given you a new prescription called dicloxacillin please stop taking your amoxicillin as this medication is more specific to a possible bacterial infection which is less likely but still a possibility. Cultures including bacterial and viral cultures and varicella-zoster and herpes simplex virus test have been sent off and you will need to follow-up with your primary care doctor or diamond setter to follow-up on these test results. Return with any high fevers feeling systemically ill or other concerns. Clinical Impressions Clinical Impression: Shingles rash Instructions Patient Instructions: DI for Skin Abscess Print Language Print Language: Thai Discharge ED Provider: Luba Johnson General Adult HPI General Chief complaint: Skin/Abscess/Foreign Body Stated complaint: rash on right leg Time Seen by Provider: 09/03/24 16:40 Mode of Arrival: Ambulatory Source of Information: Patient Description of Symptoms (Recalled from ER Triage Doc. by RN): Patient presents to ED from home with reports of a rash to the back of her lower right leg. Patient states she was seen at the [facility] on and put on PO ABX and topical steroid. Patient states rash has not improved, states it was initally itching but is now burning and painful. History of Present Illness HPI narrative: Patient is a 73-year-old female presenting today with a rash on the posterior aspect of the right lower leg. States she had total knee replacement just a little over a month ago and noticed this rash on when she stated that it was initially pruritic and has turned into a red rash that is now significantly painful. It is burning she states. No fevers or chills or systemic symptoms. Was started on amoxicillin and topical antibiotic ointment without any improvement. Thus she came to the emergency department today. Related Data Home Medications ?Medication ?Instructions ?Recorded ?Confirmed clonazepam 1 mg tablet (Klonopin) 1 mg PO BIDP PRN Anxiety 09/12/18 08/31/24 empagliflozin 12.5 mg-metformin ER 2 tab PO DAILY 06/23/21 08/31/24 1,000 mg tablet,extended rel 24 hr (Synjardy XR) aspirin 81 mg tablet,delayed 81 mg PO DAILY 12/31/22 08/31/24 release ferrous sulfate 325 mg (65 mg 325 mg PO TID 12/31/22 08/31/24 iron) tablet,delayed release amitriptyline 25 mg tablet 25 mg PO HS 06/21/23 08/31/24 pantoprazole 40 mg tablet,delayed 40 mg PO BID 06/21/23 08/31/24 release rosuvastatin 10 mg tablet 10 mg PO HS 06/21/23 08/31/24 vortioxetine 20 mg tablet 20 mg PO DAILY 06/21/23 08/31/24 (Trintellix) carvedilol 25 mg tablet 25 mg PO BID 10/27/23 08/31/24 guanfacine 1 mg tablet 1 mg PO DAILY 10/27/23 08/31/24 darifenacin 15 mg tablet,extended 15 mg PO ONCE 02/28/24 08/31/24 release 24 hr calcium carbonate (Calcium 600) 600 mg PO DAILY 04/11/24 08/31/24 irbesartan 300 mg tablet 300 mg PO DAILY 04/11/24 08/31/24 lactobacillus combination no.9 4 4,000 mmu cells PO DAILY 04/11/24 08/31/24 billion cell capsule (Adult 50 Plus Probiotic) multivitamin 1 tab PO DAILY 04/11/24 08/31/24 finerenone 10 mg tablet (Kerendia) 10 mg PO DAILY 05/03/24 08/31/24 saxagliptin 5 mg tablet 5 mg PO DAILY 05/03/24 08/31/24 vonoprazan 10 mg tablet (Voquezna) 10 mg PO DAILY 05/23/24 08/31/24 trospium 20 mg tablet mg PO 08/15/24 08/31/24 vibegron 75 mg tablet (Gemtesa) mg PO 08/15/24 08/31/24 Previous Rx's ?Medication ?Instructions ?Recorded mirabegron 50 mg tablet,extended 50 mg PO DAILY #30 tabs 05/16/24 release 24 hr (Myrbetriq) hydralazine 25 mg tablet See Rx Instructions .Route 07/12/24 .COMPLEX #90 tabs clobetasol 0.05 % topical cream 1 applic topical DAILY #60 grams 08/15/24 amoxicillin 875 mg tablet 875 mg PO Q12H 10 days #20 tabs 08/31/24 triamcinolone acetonide 0.5 % 1 applic topical TID #15 grams 08/31/24 topical ointment dicloxacillin 500 mg capsule 500 mg PO Q6H 5 days #20 caps 09/03/24 gabapentin 300 mg capsule 300 mg PO .qhs PRN pain 14 days 09/03/24 #14 caps valacyclovir 1 gram tablet 1,000 mg PO Q8H 7 days #21 tabs 09/03/24 (Valtrex) Allergies Allergy/AdvReac Type Severity Reaction Status Date / Time semaglutide (From Ozempic) AdvReac Mild Nausea Verified 08/31/24 08:41 PFSH PFSH Disclaimer: The information contained in this section may have been updated after the patient was seen, as this information can be updated by other users. Medical History Fall Blunt head trauma Anemia Stage 3b chronic kidney disease (CKD) History of respiratory syncytial virus (RSV) infection Cough syncope Respiratory syncytial virus (RSV) Paroxysmal A-fib Accelerated junctional rhythm Abnormal electrocardiogram [ECG] [EKG] Depression History of trigger finger History of cyst of breast Word finding difficulty Sciatica SVT (supraventricular tachycardia) Abnormal EKG Dyspnea Hx of mitral valve prolapse HLD (hyperlipidemia) HTN (hypertension) Diabetes mellitus Family history of heart disease Surgical History History of knee replacement right knee History of colonoscopy History of esophagogastroduodenoscopy (EGD) History of surgery aneurism repair History of carpal tunnel release History of hernia repair History of biopsy of temporal artery History of cholecystectomy Family History Other Family history of cardiac disorder Social History Smoking Status: Never smoker alcohol intake: never substance use type: denies use current occupational status: retired Travel in the last 8 weeks?: None household members: spouse and children housing: house caffeine: Yes Have you lived/traveled outside US in past 30 days?: No Contact w/someone who lives/traveled outside US past 30 days?: No Exposure to someone with infectious disease in past 14 days?: No Do you have a fever (greater than 100.4 F or 38 C)?: No Have you tested positive for COVID-19?: No Exposed to someone with COVID-19 in past 14 days?: No Do you have a sore throat?: No Do you have a cough?: No Do you have any weakness?: No Do you have any diarrhea?: No Are you experiencing any unusual bleeding?: No Do you have any muscle aches/pain?: No Do you have any abdominal pain?: No Are you experiencing loss of taste or smell?: No Other Medical History Have you received the Flu Vaccine for this season: Yes Have you received the Pneumonia Vaccine: Yes ROS Obtained: Yes All systems reviewed & no additional complaints except as documented Physical Exam General General appearance: alert and in no apparent distress Respiratory Respiratory exam: Present normal lung sounds bilaterally Cardiovascular Cardiovascular exam: Present regular rate Neurological Exam Neurological exam: Present alert and oriented X3 Skin Skin exam: Present rash (There is a erythematous base coalescing with multiple small lesions into a larger patch in the posterior aspect of the right lower leg there is some areas of vesicles/pustules in an S1/L5 dermatome) Medical Decision Making Medical Records Screening: Per USPSTF and CDC recommendations, given the prevalence of disease in our region, it is our hospital?s policy to screen for HIV and viral Hepatitis for all patients aged 18 and over and those with ongoing risk factors. Bhavik Inquiry Pt receiving controlled substance: No Vital Signs: 09/03/24 16:49 Temperature 99.2 F Temperature Source Oral Pulse Rate [Left] 68 Respiratory Rate 19 Blood Pressure [Right Arm] 167/98 H Blood Pressure Mean [Right Arm] 121 Blood Pressure Source [Right Arm] Automatic Cuff Blood Pressure Position [Right Arm] Sitting 02 Sat by Pulse Oximetry 98 Oxygen Delivery Method Room Air Lab Data Lab Results 09/03/24 16:55: WBC 5.7, RBC 4.09 L, Hgb 13.1, Hct 40.8, MCV 99.8 H, MCH 32.0 H, MCHC 32.1, RDW 12.7, Plt Count 287, MPV 9.4, Neut % (Auto) 58.3, Lymph % (Auto) 27.8, Forrest % (Auto) 10.2 H, Eos % (Auto) 2.8, Baso % (Auto) 0.7, Neut # (Auto) 3.3, Lymph # (Auto) 1.6, Forrest # (Auto) 0.6, Eos # (Auto) 0.2, Baso # (Auto) 0.0, ESR 23, PT 11.1, INR 1.00, APTT 27.4, Sodium 135 L, Potassium 4.6, Chloride 103, Carbon Dioxide 25, Anion Gap 11.6, BUN 30 H, Creatinine 0.90, Estimated Creat Clear 65, Estimated GFR 61, Est GFR ( Amer) 74, Glucose 242 H, Calcium 9.7, Total Bilirubin 0.1 L, AST 29, ALT 21, Alkaline Phosphatase 103, Total Creatine Kinase 57, C-Reactive Protein 5.8 H, Total Protein 7.5, Albumin 4.5, Globulin 3.0, Albumin/Globulin Ratio 1.5 09/03/24 17:02: Urine Color Yellow, Urine Appearance Clear, Urine pH 6.0, Ur Specific [place] 1.010, Urine Protein Negative, Urine Glucose (UA) 3+, Urine Ketones Negative, Urine Blood Negative, Urine Nitrate Negative, Urine Bilirubin Negative, Urine Urobilinogen 0.2, Ur Leukocyte Esterase Negative, Urine RBC None, Urine WBC Occasional, Ur Squamous Epith Cells 3-5, Urine Bacteria Trace 09/03/24 16:55 09/03/24 16:55 Orders (Tests/Meds): ORDERS Category Date Time Status CBC w/Auto Diff [Complete Blood Count Auto Diff] Stat Lab 09/03/24 16:55 Completed CK [Creatine Kinase] Stat Lab 09/03/24 16:55 Results CMP [Comprehensive Metabolic Panel] Stat Lab 09/03/24 16:55 Results CRP [C-Reactive Protein] Stat Lab 09/03/24 16:55 Results ESR [Erythrocyte Sedimentation Rate] Stat Lab 09/03/24 16:55 Completed HIV Combo Stat Lab 09/03/24 16:55 Received Hepatitis C Ab Qual. W/ RFX Stat Lab 09/03/24 16:55 Received PT/PTT Stat Lab 09/03/24 16:55 Completed Procalcitonin Stat Lab 09/03/24 16:55 Results UA [Urinalysis and Microscopic] Stat Lab 09/03/24 17:02 Completed Viral Culture, General Stat Micro 09/03/24 16:56 Ordered Wound Culture and Gram Stain Stat Micro 09/03/24 16:55 Ordered Medical Decision Narrative: The patient with above history and physical very well-appearing from a systemic standpoint. Differential includes varicella-zoster herpes simplex virus, bacterial infection such as gram-positive pathology, vasculitis etc. She has already been on amoxicillin but we will change this to dicloxacillin and also will send VZV and HSV PCR's from her wound as well as bacterial Gram stain and culture and viral culture. Will cover her with valacyclovir and will also give her gabapentin as needed for neuropathic pain. She understands there is some diagnostic uncertainty but most likely this is VZV/shingles. I do not suspect disseminated infection in this patient. I have advised that she follow-up closely with dermatology or with her primary care doctor Critical Care Critical Care Time Critical Care Time: No
[2024-09-03 17:39] LABS: Procalcitonin 0.053 ng/mL (0.0-2.0)
[2024-09-03 17:40] VITALS: BP 154/55; PULSE 68; RESP 18; TEMP 36.8; O2SAT 98
--- NOTE | 2024-09-03 17:41 | PC.NURSE ---
Swabs for HSV and VCV sent to lab along with paper order for swabs.
[2024-09-03 18:22] LABS: Hepatitis C Ab Qual. W/ RFX NEGATIVE (Negative)
--- NOTE | 2024-09-15 05:52 | PC.NURSE ---
Pt had POS staphylococcus aureus from a wound cx collected 09/03. Pt had [address] Espana would like us to follow up on pt condition & if rash is healed no need for further abx.
== END 2024-09-03 17:45 | disposition home or self-care (01) ==
PROVIDERS: Emergency Provider Student in an Organized Health Care Education/Training Program; PCP Family Medicine
DX: B02.9 Zoster without complications (principal)
CPT/HCPCS: 80053; 81001; 82550; 84145; 85025; 85610; 85651; 85730; 86140; 86803; 87070; 87077; 87205; 87252; 87389; 87529; 87798; 99283

== ENCOUNTER 2024-09-07 14:30 | Outpatient (RCR) | payer MEDICARE, BC, SELFPAY | END 2024-09-07 23:59 | disposition home or self-care (01) | LOC: PT.CARL 14:30 | PROVIDERS: PCP Family Medicine; Visit Provider Orthopaedic Surgery Adult Reconstructive Orthopaedic Surgery | DX: Z47.1 Aftercare following joint replacement surgery (principal); Z96.651 Presence of right artificial knee joint | CPT/HCPCS: 97110; 97116; 97140; 97530 ==

== ENCOUNTER 2024-09-11 13:46 | Outpatient (RCR) | payer MEDICARE, BC, SELFPAY | END 2024-09-18 11:00 | disposition home or self-care (01) | LOC: PT.CARL 13:46 | PROVIDERS: PCP Family Medicine; Visit Provider Orthopaedic Surgery Adult Reconstructive Orthopaedic Surgery | DX: Z47.1 Aftercare following joint replacement surgery (principal); Z96.651 Presence of right artificial knee joint | CPT/HCPCS: 97110 ==

== ENCOUNTER 2024-10-16 08:04 | Outpatient (CLI) | payer MEDICARE, BC, SELFPAY ==
--- NOTE | 2024-10-16 08:30 | MM_ITS ---
PROCEDURE INFORMATION: Exam: MG Bilateral Screening 3D Mammography Exam date and time: 10/16/2024 8:19 AM Age: 73 years old Clinical indication: Screening examination TECHNIQUE: Imaging protocol: Bilateral Screening tomosynthesis and 2D mammography including computer-aided detection (CAD) when performed. COMPARISON: 1. MG JOSE SCRN MAMMO W/CAD BILAT 09/13/2023 8:45 AM 2. MG JOSE SCRN MAMMO W/CAD BILAT 09/07/2022 9:21 AM FINDINGS: MAMMOGRAPHY: Breast composition: There are scattered areas of fibroglandular density. Mass: None. Architectural distortion: None. Calcifications: No suspicious calcifications. Asymmetric density: None. Skin thickening: None. Axillary adenopathy: None. IMPRESSION: No mammographic evidence of malignancy. Annual screening is recommended unless otherwise clinically indicated. ASSESSMENT: BI-RADS Category 1: Negative.
--- NOTE | 2024-10-16 09:00 | US_ITS ---
PROCEDURE: US PELVIC CLINICAL INDICATION: N83.209 - Unspecified ovarian cyst, unspecified side COMPARISON: CT CT ABDOMEN PELVIS WO CON from 12/30/2022 US US TRANSVAGINAL from 01/11/[address] ANGIO ABDOMEN PELVIS from 04/08/[address] ANGIO ABD/PEL - GI BLEED from 06/29/2024 FINDINGS: Transabdominal sonographic images of the pelvis were obtained. UTERUS: 5.6 cm in length. There appear to be calcifications within the uterus. LEFT OVARY: Not visualized RIGHT OVARY: Not visualized There is no fluid in the cul-de-sac. IMPRESSION: 1. Anteverted uterus normal in length. The rest of the measurements are not performed today. There appears to be calcifications within the uterus. Difficult examination secondary to bowel and waiting for the bladder to fill. 2. The previously described 6 cm left adnexal mass is not seen today. The patient refused a transvaginal ultrasound. 3. The right ovary is not visualized. 4. Would suggest a transvaginal ultrasound if the patient will consent. Dictated by: Raphael Mcknight MD 10/16/2024 11:58 Raphael Mcknight MD in [place] 10/16/2024 11:58
== END 2024-10-16 23:59 | disposition home or self-care (01) ==
PROVIDERS: PCP Family Medicine; Referring Provider Nurse Practitioner Obstetrics & Gynecology; Visit Provider Obstetrics & Gynecology
DX: Z12.31 Encounter for screening mammogram for malignant neoplasm of breast (principal); N85.4 Malposition of uterus; N83.209 Unspecified ovarian cyst, unspecified side; R93.89 Abnormal findings on diagnostic imaging of other specified body structures; Z78.0 Asymptomatic menopausal state; R92.323 Mammographic fibroglandular density, bilateral breasts
CPT/HCPCS: 76856; 77063; 77067

== ENCOUNTER 2024-11-22 09:07 | Outpatient (CLI) | payer MEDICARE, BC, SELFPAY ==
--- OUTSIDE RECORDS SUMMARY | 2024-07-11 07:15 | XMS_ITS ---
[facility] [address] [phone] Care Team Providers Care Immigration Consultant Name Role Phone Chase Gunn Primary Care [...] Risk Notes Problem Overactive urinary bladder (disorder) (675215168) OAB (overactiv e bladder) (N32.81) Active confirmed Vital Signs Blood pressure systolic 110 mm Hg 07/12/19 25 Blood pressure diastolic 70 mm Hg 025 Heart Rate 62 /min 07/11/2024 Height 66.25 in 07/11/2024 Weight 187.8 lbs 07/11/2024 BMI 30.08 kg/m2 07/11/2024 Encounters Encounter Location Date Provider Diagnosis [facility] [address] [facility] [address] [place], [place] [phone] 07/11/2024 Chase [place] Persistent cough R05 .3 ; Gastroesophageal reflux [...] Trujillo ry, 11/22/2024 10:30:00 AM, [address] [facility] 36 [facility], [address], [phone], Progress Notes * LEANNE DEWAYNENEELADOB:1950 (73 yo F)Acc No.[id number]:07/11/2024 Progress Notes Patient: CATE DICKERSON Provider: Alena Gunn M.D. :1950 A ge:73 Y S ex:Female Date:07/11/2024 Address:[address] [place], [place] [id number] Subjective: * Chief Complaints: * 1 . 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 * Surgical History: C holecystectomy , Bilateral Arterial Biopsy - Head - negative 04/11/2020, Brain Anuerysm Removal - [facility] 05/03/2020, EGD - 2015, 2021 [...] (overactive bladder) - N32.81 5 . B [place] 30.0-30.9,adult - Z68.30 Plan: * Treatment: Value [...] G 2211 Complex e/[place], [address] CAPILLARY BLOOD DRAW, 50742 CBC WITH AUTO DIFF, G8950 PREHTN/HTN BP DOC INDCD F/U DOC, G8752 MOST RECENT SYSTOLIC BP < 140MM HG, G8754 MOST RECENT DIASTOLIC BP < 90MM HG, 1036F TOBACCO NON-USER * Follow Up: v ia phone to report test results * Images: Billing Information: * Visit Code: 99731 Office Visit, Est Pt., Level 4. * Procedure Codes: G2211 Complex e/[place]. [address] CAPILLARY BLOOD DRAW. 83272 CBC WITH AUTO DIFF. G8950 PREHTN/HTN BP DOC INDCD F/U DOC. G8752 MOST RECENT SYSTOLIC BP < 140MM HG. G8754 MOST RECENT DIASTOLIC BP < 90MM HG. 1036F TOBACCO NON-USER. * Electronic signature of Cora Gunn MD on 11/22/2024 at 09:20 AM EDT Sign off status: Pending * Provider: Alena Gunn M.D. Date: 0 07/11/2024 Generated for Ying mcnamara/Matilda/eTransmitting on: 1 09:20 AM EDT History and Physical Notes * HPI [...]
--- OUTSIDE RECORDS SUMMARY | 2024-09-07 06:15 | XMS_ITS ---
Author Organization [facility] Address [address] [facility] [address] [phone] Care Team Providers Care Medical Assistant Per Diem Name Role Phone Chase Gunn Primary Care Provider Allergies Allergen (clinical drug ingredient) Drug/Non Drug Allergy documented on EMR Reaction Allergy Type Onset Date Status promethazine Promethazine sore mouth Drug Allergy Active REASON FOR VISIT [facility] ER f/u Medications Medication SIG (Take, Route, [...] 09/07/2024 Encounters Encounter Location Date Provider Diagnosis [facility] [address], [place] [phone] 09/07/2024 Chase [place] Herpes zoster withou t complication B02.9 and [...] Follow Up: via phone to repo rt progress, Reason: Provider Name:Chase Trujillo ry, 11/22/2024 10:30:00 AM, [address], [place], [phone], Progress Notes * CATE PERDOMODOB:1950 (73 yo F)Acc No.[id number]:09/07/2024 Progress Notes Patient: CATE DICKERSON Provider: Alena Gunn M.D. :1950 A ge:73 Y S ex:Female Date:09/07/2024 Address:[address] [place] [address], [id number] Subjective: * Chief Complaints: * 1 . [facility] ER f/u. * HPI: H PI: 73 year old female presents with c/o Here for follow up on:?09/03/2024 [facility] er visit. 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 * Surgical History: C holecystectomy , Bilateral Arterial Biopsy - Head - negative 04/11/2020, Brain Anuerysm Removal - [facility] 05/03/2020, EGD - 2015, 2021 , Bladder stimulator 2017, colonoscopy - 2015, 2021, 2023 . * Hospitalization/Major Diagno stic Procedure: B rain Anuerysm 05/03-. * Family History: F ather: , diagnosed with Heart Disease. M other: alive, diagnosed with Hypertension. S iblings: alive. C hilen: alive. 2 sister(s) - healthy. 1 son(s) , 1 daughter(s) - healthy. . 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 * Medications: T [...] complication - B02.9 (Primary) 2 . B [place] 29.0-29.9,adult - Z68.29 Plan: * Treatment: * Procedure Codes: G 2211 Complex e/m visit add on, G8420 BMI<30 AND >=22 CALC & DOCU, G8783 BP SCR PRFRM RCMDD DEFIND SCR INTVL, G8752 MOST RECENT SYSTOLIC BP < 140MM HG, G8754 MOST RECENT DIASTOLIC BP < 90MM HG * Follow Up: v ia phone to report progress * Images: Billing Information: * Visit Code: 75906 Office Visit, Est Pt., Level 3. * Procedure Codes: G2211 Complex e/m visit add on. G8420 BMI<30 AND >=22 CALC & DOCU. G8783 BP SCR PRFRM RCMDD DEFIND SCR INTVL. G8752 MOST RECENT SYSTOLIC BP < 140MM HG. G8754 MOST RECENT DIASTOLIC BP < 90MM HG. * Electronic signature of Cora Gunn MD on 11/22/2024 at 09:21 AM EDT Sign off status: Pending * Provider: Alena Gunn M.D. Date: 0 09/07/2024 Generated for Ying mcnamara/Matilda/eTjoshuasmitting on: 1 09:21 AM EDT History and Physical Notes * HPI (History of Present Illness) Category Sub-Category Detail Notes Category Not es HPI Here for follow up on: 5 [facility] er visit. Pt went to er for [...]
--- OUTSIDE RECORDS SUMMARY | 2024-10-06 06:30 | XMS_ITS | Continuity of Care Document ---
Author Organization [facility] Phone Care Team Providers Care Manager Applied Name Role Phone ALEKSEY GABRIEL Unavailable ALEKSEY GABRIEL Admitting ALEKSEY GABRIEL Primary Attending DARIELA LOCKETT Primary Care ALLERGIES AND ADVERSE REACTIONS ALLERGIES AND ADVERSE REACTIONS Code System Allergy Substance Adverse Reaction Date Reaction (Severity) Comment Status Reported By Updated By No Known Allergies RESULTS Patient: LEANNE Huston Date of : 1950 LABORATORY RESULTS Information is not available LABORATORY NARRATIVE RESULTS Information is not available RADIOLOGY RESULTS ORDER 100: KNEE 2V RT (LOINC : 19413-9) ORDER DATE: October 04, 2024 12:36:00 PM [facility] PERFORMING LAB: [address] [phone] Final Result Date: September 12:45:[address] [place] [address] Name: CATE PERDOMO Exam Date: 10/04/2024 : 1950 Age 73 years Gender: F Physician: ALEKSEY GABRIEL Facility: [facility] Facility HSV: Outpatient Exam: KNEE 2V RT PROCEDURE: XR KNEE 2 VIEWS RIGHT, 10/04/2024 7:45 AM CDT CLINICAL INDICATION: standing. COMPARISON: August 22, 2024 TECHNIQUE: 2 views right knee FINDINGS/ IMPRESSION: Right total knee arthroplasty, prosthesis in unchanged alignment. 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 Moderate suprapatellar effusion. Electronically signed by: Kaiden Krause MD 10/04/2024 10:25 AM EDT RP Dictated By: KAIDEN KRAUSE Transcribed By: Transcribed On: 10/04/2024 8:45 AM Electronically signed by: KAIDEN KRAUSE 10/04/2024 Thank you for referring CATE PERDOMO to [facility]. Legally authenticated by NELIDA FIELD MD 2024-10-04 08:45:06 PATHOLOGY NARRATIVE RESULTS Information is not available MICROBIOLOGY RESULTS No Micro Labs/Results Exist for Patient BLOOD ADMIN RESULTS Information is not available MEDICATIONS HOME MEDICATIONS Status RXNORM NDC Medication Dose Route Frequency Dates Comments Reported By Updated By Drug Treatment Unknown DISCHARGE MEDICATIONS Status RXNORM NDC Medication Dose Route Frequency Dates Dis pense Data Comments Physician Updated By No Discharge Medication Info rmation Available INPATIENT MEDICATIONS Status RXNORM NDC Medication Dose Route Frequency Rat e Quantity Dates Indication Dispense Data Comments Physician Updated By No Inpatient Medication Info rmation Available SOCIAL HISTORY SOCIAL HISTORY - Smoking Status SNOMED-CT Social History Element Description Effective Dates Offered Cessation Comment Updated By [id number] Historical Tobacco smoking status Never Smoked [id number] on August 26, 2021 11:28:21 AM [facility] SOCIAL HISTORY - Gender Sex: Female SOCIAL HISTORY - Status : status i nformation is not available Intention in Next Year: intention information is not available SOCIAL HISTORY - Assessments Code System Description Status Date Value of Assessment Updated By Comment Assessment Information is no t available SOCIAL HISTORY - [place] Affiliation [place] information is not av ailable SOCIAL HISTORY - Legal Sex Legal Sex information is not available SOCIAL HISTORY - Sexual Behavior Sexual Orientation Gender Identity SNOMED-CT Description SNO MED -CT Description Activity Level No of Partners Partner Type UpdatedBy Information is not available SOCIAL HISTORY - Occupation Occupation information is no t available HEALTH CONCERNS Problems Concern Status Health Concern problem infor mation not available. Smoking Status Status Years Used Consumed packs p er day Health Concern smoking histo ry information not available. Family History Concern Status Health Concern family histor y information not available. MEDICAL EQUIPMENT MEDICAL EQUIPMENT Device Status Quantity Dates Procedure Comments Updated By Orthopedic cement dispenser KING: ()[id number] Assigning Authority: FDA Device Identifier:[id number] Lot or Batch Number:[id number] Expiration Date:2025-09-07 ACTIVE 2 Implanted: July 13, 2024 RIGHT TKA [id number] on July 13, 2024 3:13:01 PM UTC Uncoated knee tibia prosthesis, metallic KING: ()[id number] Assigning Authority: FDA Device Identifier:[id number] Lot or Batch Number:[id number] Expiration Date:2034-04-07 ACTIVE 1 Implanted: July 13, 2024 RIGHT TKA [id number] on July 13, 2024 3:14:21 PM UTC Tibial insert KING: ()[id number] Assigning Authority: FDA Device Identifier:[id number] Lot or Batch Number:[id number] Expiration Date:2028-11-07 ACTIVE 1 Implanted: July 13, 2024 RIGHT TKA [id number] on July 13, 2024 3:15:08 PM UTC Knee femur prosthesis KING: ()[id number] Assigning Authority: FDA Device Identifier:[id number] Lot or Batch Number:[id number] Expiration Date:2034-04-07 ACTIVE 1 Implanted: July 13, 2024 RIGHT TKA [id number] on July 13, 2024 3:16:38 PM [place] Polyethylene patella prosthesis KING: ()[id number] Assigning Authority: FDA Device Identifier:[id number] Lot or Batch Number:[id number] Expiration Date:2029-05-08 ACTIVE 1 Implanted: July 13, 2024 RIGHT TKA [id number] on July 13, 2024 3:17:23 PM [facility] ENCOUNTERS ENCOUNTER INFORMATION Reason for Visit Z47.1 Admission October 04, 2024 12:29:[address] [phone] Discharge October 04, 2024 12:29:00 PM [facility] DISCHARGED TO HOME OR SELF CARE ENCOUNTER DIAGNOSES Notes information is not elvia ilable. Code System Diagnosis Onset Date Diagnosis information is not available. 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 [id number] on October 06, 2024 10:30:29 AM [facility] CARE TEAM Care Manager Applied Role ALEKSEY GABRIEL Referring ALEKSEY GABRIEL Admitting ALEKSEY GABRIEL Primary Attending DARIELA LOCKETT Primary Care CARE TEAM 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 Role on Team Location Telecom Status Start Date End Ranjit e Updated By HARVEY RYDER MD Referring normal October 04, 2024 4:00:00 AM [facility] October 04, 2024 12:29:00 PM [facility] [id number] on October 04, 2024 12:30:09 PM [facility] CATHRYN LYLE MD PCP normal October 04, 2024 4:00:00 AM [facility] October 04, 2024 12:29:00 PM [facility] [id number] on October 04, 2024 12:30:09 PM [facility] HARVEY RYDER MD Attending normal October 04, 2024 4:00:00 AM [facility] October 04, 2024 12:29:00 PM [facility] [id number] on October 04, 2024 12:30:09 PM [facility] HARVEY RYDER MD Admitting normal October 04, 2024 4:00:00 AM [facility] October 04, 2024 12:29:00 PM [facility] [id number] on October 04, 2024 12:30:09 PM [facility]
--- NOTE | 2024-11-22 09:09 | XR_ITS ---
FINAL REPORT TECHNIQUE: Bone densitometry calculations of the lumbar spine and bilateral hips were obtained. CLINICAL HISTORY: SCREENING COMPARISON: 08/23/2023 FINDINGS: Using L1-4, the bone mineral density of the spine is limited secondary to technical issues. The bone mineral density of the spine is 1.311 g/cm2, corresponding to T-score of 2.0-2.5 and a Z score of 4.4-5.0. This is within the range of normal, although limited, and not significantly changed since the prior exam. Using the left hip, the bone mineral density of the femoral neck is 0.747 g/cm2, corresponding to a T-score of -0.9 and a Z-score of 1.1. This is within the range of normal, and has improved since the prior exam. Using the right hip, the bone mineral density of the femoral neck is 0.767 g/cm?, corresponding to a T-score of -0.7 and a Z-score of 1.3. This is within the range of normal, and has improved since the prior exam. NOTE: T-score: Standard deviation compared with peak bone mass of young adult mean. *Following the recommendations of the International Society of Bone densitometry, classification of hip BMD is based on the lower of two T-scores; total hip or femoral neck. IMPRESSION: 1. Bone mineral density of the lumbar spine within the range of normal, not significantly changed. 2. Bone mineral density of the bilateral femoral necks within the range of normal, and the bone mineral density has improved in both the right and left femoral neck.. Reviewed, Interpreted and Dictated by Montse Guillaume MD Transcribed by Maricarmen Anthony Authenticated and [facility]
--- OUTSIDE RECORDS SUMMARY | 2024-11-22 09:21 | XMS_ITS | Patient Health Record ---
Author Organization [facility] Address [address] [facility] [address] [id number] Care Team Providers Care Life Insurance Actuary Name Role Phone Chase Gunn Primary Care Provider Allergies Allergen (clinical drug ingredient) Drug/Non Drug Allergy documented on EMR Reaction Allergy Type Onset Date Status promethazine Promethazine sore mouth Drug Allergy Active Results Component Value Reference Range Notes Urinalysis - Inhouse Reviewed date:05/05/2024 05:47:07 PM Interpretation: Performing Lab: Notes/Report: Color/Clarity yellow/cloudy Leuk 1+ Nitrite Pos Urobili 3.2 Protein Neg pH 7.0 Blood Trace-Intact Sp. Gr. 1.015 Ketone Neg Bili Neg Gluc 2+ TEN-UTI panel Reviewed date:05/08/2024 02:00:36 PM Interpretation:Abnormal Performing Lab: Notes/Report: Abnormal CBC Fingerstick (in house) Reviewed date:04/03/2024 01:35:43 [...] 01:34:52 PM Interpretation:unremarkable Performing Lab: Notes/Report: unremarkable P-Comprehensive Metabolic Pa torsten (CMP) Reviewed date:05/24/2024 11:29:48 AM Interpretation:glu 132, BUN 25, creat 1.24, eGFR 46 Performing Lab: Notes/Report: Test performed by [facility] [address] [place] [address] , [address], [place] [address] Deshawn Meade MD, Branch Associate CLIA: [id number] Sodium 141 135-145 mmol/L Potassium 5.3 3.5-5.3 [...] Interpretation:7.8 Performing Lab: Notes/Report: Test performed by [facility] [address] [place] [address] , [address], [place] [address] Deshawn Meade MD, Branch Associate CLIA: [id number] Hemoglobin A1C 7.8 <5.7 % The following HbA1c ranges recommended by the [place] [employer] (ADA) may be used as an aid in the diagnosis of diabetes mellitus. HbA1c Suggested Diagnosis >=6.5% Diabetic 5.7% - 6.4% Pre-Diabetic <5.7% Non-Diabetic P-Lipid Panel Reviewed date:05/24/2024 11:29:48 AM Interpretation: Normal Performing Lab: Notes/Report: Test performed by [facility] [address] [place] [address] , [place] [address] Deshawn Meade MD, Branch Associate KIRANIA: [id number] Cholesterol 144 <200 mg/dL Triglycerides 111 <150 [...] Normal Performing Lab: Notes/Report: Test performed by [facility] [address] , [place] [address] Deshawn Meade MD, Branch Associate CLIA: [id number] TSH reflex to FT4 3.33 0.43-5.25 mU/L P-Microalbumin/Creatinine, R andom Urine Sample Reviewed date:05/24/2024 11:29:48 AM Interpretation: Normal Performing Lab: Notes/Report: Test performed by [facility] [address] [place] [address] , [address], [place] [address] Deshawn Meade MD, Branch Associate CLIA: [id number] Albumin/Creatinine Ratio, Urine 4 0-30 ug/mg Microalbumin, Urine, Random 0.3 Creatinine, Urine 76.8 CBC Fingerstick (in house) Reviewed date:07/12/2024 01:11:12 [...] - 38 plat 215 100 - 400 Covid test (in house) Reviewed date:02/01/2024 11:20:28 AM Interpretation:Negative Performing Lab: Notes/Report: Negative Result: Neg Influenza Screen (in house) Reviewed date:02/01/2024 11:20:49 AM Interpretation:Negative Performing Lab: Notes/Report: Negative results Neg Estimated Average Glucose Reviewed date:05/24/2024 11:29:48 AM Interpretation:177 Performing Lab: Notes/Report: Test performed by [facility] [address] [place] [address] [address], [place] [address] Deshawn Meade MD, Branch Associate CLIA: [id number] Estimated Average Glucose (eAG) 177 Estimated Average Glucose (eAG) is calculated using the equation eAG = (28.7 x HbA1c) - 46.7 based on the guidelines established by the ADA. If the patient has certain diseases including kidney disease, sickle cell anemia, thalassemia, or is taking medications such as dapsone, erythropoietin, or iron, eAG should not be evaluated. Glucose (In-House) Reviewed date:11/25/2023 09:40:03 AM Interpretation:174 Performing Lab: Notes/Report: 174 blood glucose 174 74 - 106 mg/dL Glycohemoglobin A1c (in hous e) Reviewed date:11/25/2023 09:40:03 AM Interpretation:7.4 Performing Lab: Notes/Report: 7.4 glycohemoglobin 7.4% 5 - 6.5 % P-Comprehensive Metabolic Pa torsten ([facility]) Reviewed date:11/25/2023 09:40:03 AM Interpretation:gluc 166, bun 26, Cr 1.1, gfr 53 Performing Lab: Notes/Report: Test performed by [facility] [address] [place] [address] [address], [place] [address] Deshawn Meade MD, Branch Associate CLIA: [id number] Sodium 140 135-145 mmol/L Potassium 4.6 3.5-5.3 [...] 0.3 <0.2-1.2 mg/dL A/G Ratio 2.0 1.1-2.5 P-Lipid Panel Reviewed date:11/25/2023 09:40:03 AM Interpretation:Normal Performing Lab: Notes/Report: Test performed by [facility] [address] [place] , [place] [address] Deshawn Meade MD, Branch Associate CLIA: [id number] Cholesterol 142 <200 mg/dL Triglycerides 121 <150 [...] 77 Units: mg/dL % Change: +22% _ P-Phosphorus Reviewed date:11/25/2023 09:40:03 AM Interpretation:Normal Performing Lab: Notes/Report: Test performed by [facility] [address] , [address], [place] [address] Deshawn Meade MD, Branch Associate CLIA: [id number] Phosphorus 3.8 2.5-4.5 mg/dL P-TSH reflex to FT4 Reviewed date:11/25/2023 09:40:03 AM Interpretation:Normal Performing Lab: Notes/Report: Test performed by [facility] [address] [place] [address] , [address], [place] [address] Deshawn Meade MD, Branch Associate CLIA: [id number] TSH reflex to FT4 1.42 0.43-5.25 mU/L CBC Fingerstick (in house) Reviewed date:02/23/2024 11:39:15 [...] - 38 plat 210 100 - 400 TEN-Upper Respiratory PCR Reviewed date:02/25/2024 12:38:07 PM Interpretation:Negative Performing Lab: Notes/Report: Negative Reason For Referral Diagnosis 1 Nausea (R11.0) Diagnosis 2 Gastroesophageal ref lux disease without esophagitis (K21.9) Diagnosis 3 Pharyngeal dysphagia (R13.13) Referral Organization [facility] Referring Provider First Name Chase Referring Provider Last Name Luis A Referring Provider Speciality Family [facility] ctice Referred Provider DAYAN LYN Referred Provider Specialty Gastroentero logy General Notes Letitia Osei 10:57:47 AM > faxed to Dr. Lyn office, Letitia Osei 03/17/2024 2:01:41 PM > 04/11/2024 at 09:00am Referral Priority Routine Medications Medication SIG (Take, Route, Frequency, Duration) Notes Start Date End Date Status Crestor 10 MG 1 tab(s) orally once a day (at bedtime); Duration: 90 days Active Trintellix 20 MG 1 tab(s) orally once a day; Duration: 90 days Active sAXagliptin HCl 5 MG 1 tablet Orally Onc e a day; Duration: 90 days Active Irbesartan 150 MG 2 tablets Orally Onc e a day Active valACYclovir HCl 1 GM 1 tablet Orally On ce a day Active Multivitamin - 1 tab(s) orally once a day; Duration: 30 day(s) Active Dicloxacillin Sodium 500 MG 1 capsule 1 hour before or 2 hours after meals Orally every 6 hrs Active Calcium 600 + Minerals 600-200 MG-UNIT 1 tab(s) orally 3 times a day; Duration: 30 day(s) Active Gemtesa 75 MG 1 tablet Orally Once a day; Duration: 90 days 07/11/2024 Active Gabapentin 300 MG 1 capsule Orally Onc e a day Active Aspirin 81 MG 1 tablet Orally Once a day; Duration: 30 day(s) Active FeroSul 325 (65 Fe) MG TAKE 1 TABLET BY MOUTH THREE TIMES DAILY; Duration: 30 days Active clonazePAM 1 MG 1 tab(s) orally 2 ti mes a day as needed; Duration: 30 days 11/21/2024 Active hydrALAZINE HCl 25 MG 1 tablet with food Orally Twice a day; Duration: 30 day(s) Active Carvedilol 25 MG 1 tablet with food Orally Twice a day; Duration: 90 days Active Darifenacin Hydrobromide ER 15 MG 1 tablet with liquid Orally Once a day; Duration: 30 day(s) Active Iberogast - as directed Orally Active guanFACINE HCl 1 MG 1 tablet at bedtime Orally Once a day; Duration: 90 days Active Probiotic - as directed Orally Active Voquezna 10 MG 1 tablet Orally Once a day; Duration: 90 days 05/03/2024 Active Kerendia 10 MG 1 tablet Orally Once a day; Duration: 90 days Active Beano Meltaways 450 UNIT as directed Orally Active Synjardy XR 12.5-1000 MG 2 tablets with breakfast Orally Once a day; Duration: 30 days Active Amitriptyline HCl 25 [...] W/U Status Risk Notes Problem Essential hypertension (00288927) Essential hypertension (I10) Active confirmed Problem Mixed anxiety and depressive disorder (537979110) Depression with anxiety (F41.8) Active confirmed Problem Body mass index 30+ - obesity (334438055) BMI 30.0-30.9,adult (Z68.30) Active confirmed Problem Overactive urinary bladder (disorder) (115847571) OAB (overactive bladder) (N32.81) Active confirmed Problem Mixed incontinence (879593290) Mixed incontinence (N39.46) Active confirmed Problem Chronic pain (84800309) Other chronic pain (G89.29) Active confirmed Problem Type II diabetes mellitus without complication (910243481) Type 2 diabetes mellitus without complication (E11.9) Active confirmed Problem Constipation (91782498) Constipation, unspecified constipation type (K59.00) Active confirmed Problem Gastroesophageal reflux disease without esophagitis (345032612) Gastroesophageal reflux disease without esophagitis (K21.9) Active confirmed Problem Low back pain (201617933) Bilateral low back pain without sciatica (M54.5) Active confirmed Problem Hyperhidrosis (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) Active confirmed Problem Subacute vaginitis (49238390347670847) Subacute vaginitis (N76.1) Active confirmed Problem Soreness of tongue (59505348) Soreness of tongue (K14.6) Active confirmed Problem Type II diabetes mellitus without complication (826065625) Type 2 diabetes mellitus without complication, without long-term current use of insulin (E11.9) Active confirmed Problem Pharyngeal dysphagia (05182634617925) Pharyngeal dysphagia (R13.13) Active confirmed Problem Chronic anemia (363734935) Chronic anemia (D64.9) Active confirmed Problem Pure hypercholesterolemia (436733695) Pure hypercholesterolemia (E78.00) Active confirmed Problem Glossodynia (69258716) Tongue pain (K14.6) Active confirmed Problem Thyromegaly (1660644) Thyromegaly (E01.0) Active confirmed Problem Arthritis of right knee (9174368484447387) Arthritis of right knee (M17.11) Active confirmed Problem Allergic rhinitis (98587159) Allergic rhinitis, unspecified seasonality, unspecified trigger (J30.9) Active confirmed Problem Type II diabetes mellitus without complication (449823528) Type 2 diabetes mellitus without complication, unspecified whether mcc insulin use (E11.9) Active confirmed Problem Chronic kidney disease stage 3B (disorder) (077562375) Stage 3b chronic kidney disease (N18.32) Active confirmed Problem Chronic kidney disease stage 3A (083773374) Stage 3a chronic kidney disease (N18.31) Active confirmed Problem Chronic kidney disease stage 3B (disorder) (155937923) Stage 3b chronic kidney disease (CKD) (N18.32) Active confirmed Problem Taste sense altered (699508805) Taste sense altered (R43.2) Active confirmed Problem Urinary incontinence (875437940) Urinary incontinence in female (R32) Active confirmed Vital Signs Heart Rate 80 /min 09/07/2024 Blood pressure diastolic 68 mm Hg 09/07/2024 Height 66.25 in 09/07/2024 Blood pressure systolic 122 mm Hg 09/07/2024 Weight 186.2 lbs 09/07/2024 BMI 29.82 kg/m2 09/07/2024 Encounters Encounter Location Date Provider Diagnosis [facility] [address] [facility] [address] [place], [place] [id number] 11/24/2023 Chase Brewster Type 2 diabetes sky itus without complication E11.9 ; Essential hypertension I10 ; Pure hypercholesterolemia E78.00 ; Stage 3b chronic kidney disease N18.32 and Gastroesophageal reflux disease without esophagitis K21.9 [facility] [address] [facility] [address] [place], [place] [id number] 02/01/2024 Chase Brewster Acute URI J06.9 [facility] [address] [place], [place] [id number] 02/23/2024 Chase Brewster Bronchitis J40 and N ausea R11.0 [facility] [address] [place], [place] [id number] 03/14/2024 Chase Brewster Nausea R11.0 ; Gastroesophageal reflux disease without esophagitis K21.9 ; Pharyngeal dysphagia R13.13 and Nausea and vomiting, unspecified vomiting type R11.2 [facility] [address] [place], [place] [id number] 04/03/2024 Chase Brewster Persistent cough R05 .3 [facility] [address] [place], [place] [id number] 04/21/2024 Chase Brewster Tongue pain K14.6 [facility] [address] [place], [place] [id number] 05/03/2024 Chase Brewster Acute UTI N39.0 ; Dy suria R30.0 ; Chronic cough R05.3 and Gastroesophageal reflux disease without esophagitis K21.9 [facility] [address] [place], [place] [id number] 05/23/2024 Chase Brewster Type 2 diabetes sky itus without complication E11.9 ; Essential hypertension I10 ; Pure hypercholesterolemia E78.00 ; Stage 3a chronic kidney disease N18.31 ; Gastroesophageal reflux disease without esophagitis K21.9 ; Stage 3b chronic kidney disease N18.32 ; Chronic anemia D64.9 ; BMI 28.0-28.9,adult Z68.28 and Lumbar back pain M54.50 [facility] [address] [place], [place] [id number] 06/21/2024 Chase Brewster Pain in right knee M 25.561 ; Pre-op exam Z01.818 ; Arthritis of right knee M17.11 ; Type 2 diabetes mellitus without complication E11.9 ; Essential hypertension I10 ; Gastroesophageal reflux disease without esophagitis K21.9 ; Stage 3b chronic kidney disease N18.32 ; Chronic anemia D64.9 ; Mixed incontinence N39.46 and BMI 30.0-30.9,adult Z68.30 [facility] [address] [place], [place] [id number] 07/11/2024 Chase Brewster Persistent cough R05 .3 ; Gastroesophageal reflux disease without esophagitis K21.9 ; Essential hypertension I10 ; OAB (overactive bladder) N32.81 and BMI 30.0-30.9,adult Z68.30 [facility] [address] [place], [place] [id number] 09/07/2024 Chase Brewster Herpes zoster withou t complication B02.9 and BMI 29.0-29.9,adult Z68.29 [facility] [address] [place], [place] [id number] 11/25/2023 Chase Brewster [facility] [address] [place], [place] [id number] 02/18/2024 Chase Brewster Depression with anxi ety F41.8 [facility] [address] [place], [place] [id number] 02/18/2024 Chase Brewster [facility] [address] [place], [place] [id number] 03/02/2024 Chase Brewster Bronchitis J40 [facility] [address] [place] [id number] 03/13/2024 Chase Brewster [facility] [address] [place] [id number] 03/31/2024 Chase Brewster Bronchitis J40 [facility] [address] [place] [id number] 04/04/2024 Chase Brewster [facility] [address] [place] [id number] 05/12/2024 Chase Brewster [facility] [address] [place] [id number] 05/15/2024 Chase Brewster Gastroesophageal ref lux disease without esophagitis K21.9 [facility] [address] [place], [place] [id number] 05/19/2024 Chase Brewster Depression with anxi ety F41.8 [facility] [address] [place], [place] [id number] 05/24/2024 Chase Brewster [facility] [address] [place] [id number] 06/02/2024 Chase Brewster [facility] [address] [place] [id number] 07/11/2024 Chase Brewster [facility] [address] [place] [id number] 07/24/2024 Chase Brewster Screening for breast cancer Z12.39 [facility] [address] [place], [place] [id number] 07/25/2024 Chase Brewster [facility] [address] [place] [id number] 08/16/2024 Chase Brewster Depression with anxi ety F41.8 [facility] [address] [place] [id number] 09/18/2024 Chase Brewster Encounter for screen ing for osteoporosis Z13.820 [facility] [address] [place], [place] [id number] 10/19/2024 Chase Brewster [facility] [address] [place], [place] [id number] 11/21/2024 Chase Brewster Depression with anxi ety F41.8 Assessments Encounter Date Diagnosis (ICD Code) Assessment Notes Treatment Notes Treatment Clinical Notes Section Notes 11/24/2023 Essential hypertensi on (ICD-10 - I10) [...] Depression with anxi ety (ICD-10 - F41.8) 09/07/2024 BMI 29.0-29.9,adult (ICD-10 - Z68.29) 09/07/2024 Herpes zoster withou t complication (ICD-10 - B02.9) 09/18/2024 Encounter for screen ing for osteoporosis (ICD-10 - Z13.820) 11/21/2024 Depression with anxi ety (ICD-10 - F41.8) 07/11/2024 Essential hypertensi on (ICD-10 - I10) 06/21/2024 Arthritis of right k nee (ICD-10 - M17.11) 05/03/2024 Chronic cough (ICD-1 0 - R05.3) If symptoms persist will need further imaging 05/23/2024 Pure hypercholesterolemia (ICD-10 - E78.00) 03/14/2024 Pharyngeal dysphagia (ICD-10 - R13.13) 11/24/2023 Pure hypercholesterolemia (ICD-10 - E78.00) 11/24/2023 Stage 3b chronic kid alexa disease [...] patient likely has LPR, plan to continue Vokatiezna 11/24/2023 Gastroesophageal ref lux disease without esophagitis [...] Treatment Pending Test Test Name Order Date Bone density 09/20/2024 Mammogram 07/24/2024 Modified barium swallow 07/13/2023 Next Appt Details Provider Name:Chase Hernandezvishal ry, 11/22/2024 10:30:00 AM, [address], [place], [place], [id number], Insurance Providers Payer Name Payer Address Payer Phone Subscriber Number Group Number Insured Name Patient Relationship to Insured Coverage Start Date Coverage End Date MEDICARE PART B [address] [address] [place] [id number] [phone] [id number] CATE PERDOMO Self - patient is the insured AN[employer] BL[employer] CROSS[employer] SHIELD [address] [place] [address] [phone] [id number] CATE PERDOMO Self - patient is the insured Medical (General) History Medical History History ICD Code Type 2 Diabetes Hypertension Hyperlipidemia Anxiety and Depression GERD Bilateral Fibercystic Breast Allergic Rhinitis 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 Virk Low Back Pain, MRI 2009 Mitral Valve Prolapse Bilateral Knee Arthritis Chronic kidney disease anemia Surgical History Surgery Date(Month/Year) Cholecystectomy Bilateral Arterial Biopsy - Head - negat kaitlin 04/11/2020 Brain [facility]uerysm [facility] 05/03/2020 EGD - 2015, 2021 Bladder stimulator 2018 colonoscopy - 2015, 2021, 2023 Hospitalization History Reason Date(Month/Year) Brain Anuerysm 05/03-
--- OUTSIDE RECORDS SUMMARY | 2024-11-22 09:21 | XMS_ITS | Clinical Summary ---
[facility] Address [address] [place] [address] Care Team Providers Care Commercial Kitchen Service Technician Name Role Phone Chase Gunn MD Primary Care Provider [phone] Allergies Active Allergy Reactions Criticality Noted Date [...] Date Last Done Comments DXA SCAN 1950 MAMMOGRAM 1990 COLOGUARD 12/20/1995 COLON CANCER SCREENING 5 YEA R SIGMOIDOSCOPY 12/20/1995 COLONOSCOPY 12/20/1995 COLORECTAL CANCER SCREENING 12/20/1995 CT COLONOGRAPHY 12/20/1995 FECAL OCCULT BLOOD TEST 12/20/1995 FIT Testing (1 year) 12/20/1995 Pneumococcal Vaccine 50+ (1 of 1 - PCV) 2000 ZOSTER VACCINE (1 of 2) 2000 ANNUAL PHYSICAL 10/29/2016 HEPATITIS C SCREENING 10/29/2016 INFLUENZA VACCINE 09/08/2024 11/19/2017, 11/05/2016 COVID-19 Vaccine ( season) 2024 11/07/2020, 06/20/2020, 05/23/2020 TDAP/TD VACCINES (2 - Td or Tdap) 04/07/2033 024 Medical Devices Implanted Type Area Ticket Collector Device Identifier Shelf Expiration Date Model / Serial / Lot Interstim Implant Coil Target 3d 3mm 6cm - [id number] Implanted:Qty: 1 on 05/03/2020 by Jerome Hays MD at [facility] Implant NASRA CARMELITA [id number] / / Coil Target Detach 360 Nikia 2mm 3cm - [id number] Implanted:Qty: 1 on 05/03/2020 by Jerome Hays MD at [facility] Implant NASRA CARMELITA [id number] / / Explanted Type Area Ticket Collector Device Identifier Shelf Expiration Date Model / Serial / Lot Coil Axium [place] 3d Sys [id number] - [id number] Explanted:Qty: 1 on 05/03/2020 at [facility] Implant MEDTRONIC [id number] / / Description:Did not detach t he coil Coil Axium [place] 3d Sys 4mm 6cm - [id number] Explanted:Qty: 1 on 05/03/2020 at [facility] Implant EV3 A COVIDIEN CO [id number] / / Description:Coil removed Coil Axium Prime 3d Xsft 3mm 4cm - [id number] Explanted:Qty: 1 on 05/03/2020 at [facility] Implant MED[employer] [id number] / / Description:Coil removedf Coil Axium [place] 3d Sys 3x4mm - [id number] Explanted:Qty: 1 on 05/03/2020 at [facility] Implant EV3 A COVIDIEN CO [id number] / / Description:Coil removed Insurance ANTH BLUE CROSS BLUE SHIELD PPO MEDICARE A & B Advance Directives Documents on File Type Date Recorded Patient [place] Tanner Expl anation LIVING WILL - SCAN 05/03/2020 6:50 AM HILARIO SERA WILL * CPR (Attempt to Resuscitate) (Latest Code Status on File) Date Activated Date Inactivated Comments 05/03/2020 2:28 PM 05/04/2020 2:06 PM Question Answer Comments Code Status (Patient has no pulse and is not breathing): CPR (Attempt to Resuscitate) Medical Interventions (Patie nt has pulse or is breathing): Full Level Of Support Discussed With: Patient Care Teams Commercial Kitchen Service Technician Relationship Specialty Start Date End Date Chase Gunn MD [address] [place] [address] [place] [address] PCP - General Family Medicine 04/10/20
--- OUTSIDE RECORDS SUMMARY | 2024-11-22 09:21 | XMS_ITS | Clinical Summary ---
Author Organization [facility] Address [address] [place] [address] Care Team Providers Care Clinical Information Systems Director Name Role Phone Chase Gunn MD Primary Care Provider + [phone] Allergies No known active allergies Medications amitriptyline [...] Diagnosed Date Hypertension 02/29/2024 Diabetes mellitus 02/29/2024 Immunizations Immunization Administration Dates Next Due Influenza, [...] [facility]-Bone Density Scan 1950 [facility]-Depression Screening 1950 [facility]-/Child/Adol SDOH Screenings 1950 [facility]- SDOH Screenings 1968 [facility]-Adult SDOH Screenings 1968 CT Colonography 12/20/1995 Colonoscopy 12/20/1995 FIT-DNA 12/20/1995 FIT 12/20/1995 FOBT 12/20/1995 Sigmoidoscopy 12/20/1995 [facility]-Colorectal Cancer Screening 12/20/1995 [facility]-Pneumococcal Vaccine: 50 + Years (1 of 1 - PCV) 2000 [facility]-Zoster Vaccines (1 of 2) 2000 [id number] Vaccine ( season) 2024 11/07/2020, 06/20/2020, 05/23/2020 [facility]-Influenza Vaccine (#1) 10/09/202411/19, [...] this topic Medical Devices Implanted Type Area Data Warehousing Architect Device Identifier Shelf Expiration Date Model / Serial / Lot Interstim Bladder Stimulator-01/14 Implanted:01/14 (Quantity not on file) Bladder Stimulator Back Medtronic [id number] / [id number] / Stimulator Lead Medtronic-2017 Implanted:01/14 (Quantity not on file) Lead Back Medtronic [id number] / [id number] / Insurance [facility]ICARE [facility] Care Teams Clinical Information Systems Director Relationship Specialty Start Date End Date Chase Gunn MD [address] [facility] [address] [place] [address] PCP - General 06/21/20
== END 2024-11-22 23:59 | disposition home or self-care (01) ==
LOC: RAD 09:08
PROVIDERS: PCP Family Medicine; Visit Provider Family Medicine
DX: Z13.820 Encounter for screening for osteoporosis (principal)
CPT/HCPCS: 77080

== ENCOUNTER 2025-01-10 09:58 | Inpatient (IN) | payer MEDICARE, BC, SELFPAY ==
[2025-01-10] VITALS (12 sets, daily range): BP systolic 91–160; BP diastolic 47–79; PULSE 53–77; RESP 12–25; TEMP 36.6–38.4; O2SAT 91–97; BMI 30.7; BMI 33.9
--- NOTE | 2025-01-10 10:03 | CT_ITS ---
FINAL REPORT TECHNIQUE: Thin section axial images are obtained through the abdomen and pelvis after intravenous contrast. Reconstruction images were obtained from the axial data. This study was performed with techniques to keep radiation doses as low as reasonably achievable (ALARA). Individualized dose reduction techniques using automated exposure control or adjustment of mA and/or kV according to the patient's size were employed. CLINICAL HISTORY: Fever, ABD distention COMPARISON: 06/29/2024 FINDINGS: LIVER: Homogeneous. No focal lesion. GALLBLADDER/BILIARY SYSTEM: Gallbladder is absent. No biliary dilatation. SPLEEN: Unremarkable. PANCREAS: Unremarkable. ADRENALS: Unremarkable. KIDNEYS/URETERS/BLADDER: There is a right renal cyst. There is no hydronephrosis or renal stone. Urinary bladder is distended. GI TRACT: No small bowel obstruction or dilatation. Normal appendix. No acute colon abnormality. PELVIC ORGANS: There is a left adnexal mass posterior to the uterus in the deep pelvis which contains fat, calcifications and areas of hypodensity measuring 6 cm which is not significantly changed from prior exam and. Findings could represent a teratoma. Consider SOCIAL WORK ADMINISTRATOR consultation LYMPH NODES/RETROPERITONEUM/MESENTERY: No lymphadenopathy. No abdominal aortic aneurysm. ABDOMINAL WALL: There are postoperative changes of prior ventral hernia repair. FREE FLUID: No ascites. BONES: No acute osseous abnormality. IMPRESSION: No acute abnormality of the abdomen or pelvis. Stable left adnexal mass which could represent a teratoma. Consider SOCIAL WORK ADMINISTRATOR consultation. Reviewed, Interpreted and Dictated by Montse Guillaume MD Transcribed by Elissa Kwan Authenticated and [facility]
--- NOTE | 2025-01-10 10:03 | ECG_ITS ---
APPROVED REPORT Exam: Resting ECG HR:72 bpm ECG Measurements Heart Rate 72 AXES PA 190 P 95 QRSd 88 QRS 81 QT 369 T 74 QTc 394 Conclusion Normal sinus rhythm Normal axis Normal intervals No STEMI Electronically signed by : Manuel Newsome, 01/10/2025 16:26:46
--- NOTE | 2025-01-10 10:05 | CT_ITS ---
FINAL REPORT TECHNIQUE: Thin section axial images were obtained from skull base to vertex without contrast. Coronal reconstruction images were obtained from the axial data. Exam was performed using dose reduction techniques such as automated exposure control, adjustment of the mA and kV according to patient size, and use of iterative reconstruction technique. CLINICAL HISTORY: Generalized weakness COMPARISON: 06/21/2023 FINDINGS: There is no mass effect or midline shift. There is no hydrocephalus. There is no intracranial hemorrhage. 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 Mild periventricular hypodensity is stable. There are vascular coils anterior to the lower teri which are unchanged. The soft tissues are without acute abnormality. No acute osseous abnormality is identified. IMPRESSION: No acute intracranial abnormality. Reviewed, Interpreted and Dictated by Montse Guillaume MD Transcribed by Elissa Kwan Authenticated and [facility]
--- NOTE | 2025-01-10 10:05 | CT_ITS ---
FINAL REPORT TECHNIQUE: Axial imaging of the chest is obtained after the administration of contrast. 3-D MIP reformatted images were also obtained and reviewed per PE protocol. This study was performed with techniques to keep radiation doses as low as reasonably achievable (ALARA). Individualized dose reduction techniques using automated exposure control or adjustment of mA and/or kV according to the patient's size were employed. CLINICAL HISTORY: SOA COMPARISON: 04/08/2023 FINDINGS: The pulmonary arteries are well filled. There is no evidence of pulmonary embolus. There is no aortic dissection. Heart size is mildly enlarged. There is no mediastinal, hilar, or axillary lymphadenopathy. There is linear scarring in the left lower lobe, unchanged from prior exam. The lungs are otherwise clear and without consolidation. There is no pleural or pericardial effusion. No acute osseous abnormality. IMPRESSION: No evidence of pulmonary embolism or aortic dissection. Reviewed, Interpreted and Dictated by Montse Guillaume MD Transcribed by Elissa Kwan Authenticated and [facility]
--- NOTE | 2025-01-10 10:06 | XR_ITS ---
FINAL REPORT TECHNIQUE: Single view chest CLINICAL HISTORY: SOA COMPARISON: 04/03/2024 FINDINGS: A single view of the chest was obtained. The heart and mediastinum are within normal limits. Lungs are clear but with low volumes. There is no pneumothorax. IMPRESSION: No acute cardiopulmonary process. Reviewed, Interpreted and Dictated by Montse Guillaume MD Transcribed by Elissa Kwan Authenticated and [facility]
--- NOTE | 2025-01-10 10:07 | ED_ITS ---
<Statement entered by Manuel Newsome DO - 01/10/25 16:02> I was consulted by the JANELL, and we discussed the complexity of problems being addressed. I approved the treatment and management plan for this patient's care in the emergency department, thus performing a substantive portion of the medical decision making. Manuel Newsome DO Is Dr. Newsome. This patient is a 74-year-old female who presented to the emergency department today for evaluation of weakness and bodyaches. She tells me that over the last couple of days she has been having some diarrhea but no nausea or vomiting and no abdominal pain. on arrival to the emergency department the patient had a fever of 101 Fahrenheit. Her white count was less than 12, she was never tachycardic, never hypotensive, and her respiratory rate was controlled. She did not meet SIRS criteria for sepsis. However, due to the fevers we will obtain a lactate and blood cultures. Lactate was normal. We proceeded with CT scans that were essentially read as normal aside from an incidental finding of a potential ovarian teratoma that may need POLICE WORKER follow-up. At this point the patient is mentating normally, has no headaches, no photophobia, no neck stiffness so I do not feel that this is a neurologic infection. We also performed a full nasopharyngeal panel that was negative for viral infection. Given this, I do feel the empiric thing to do is to treat the patient appear clear with antibiotics until her blood cultures clear. The patient was ultimately admitted to hospital medicine for further evaluation and management Discharge Plan Disposition Patient Disposition: Admitted Condition: Good Clinical Impressions Clinical Impression: KLAUS (acute kidney injury), Generalized weakness, Diarrhea Discharge ED Provider: Manuel Newsome General Adult HPI General Chief complaint: Weakness Stated complaint: weakness Time Seen by Provider: 01/10/25 10:03 Mode of Arrival: EMS Source of Information: Patient, EMS and Medical Record History of Present Illness HPI narrative: 74-year-old female presents the emergency department via EMS for generalized weakness that has been worsening since Wednesday according to EMS and patient, for some possible intermittent confusion, initially called out for a lift assist , of the patient called out, patient was found down, unsure of fall, patient is GCS of 14 some confusion about specific date and who the president is, patient admits to generalized weakness and malaise, denies any fever or chills, denies any chest pain admits to shortness of breath since Wednesday as well as a cough, it is nonproductive, denies any overt abdominal pain, denies any diarrhea, denies any nausea vomiting, no urinary symptomatology. At the end of my assessment is now available at the bedside to provide some additional history, patient's states that she normally does not walk with assistance has been utilizing the cane and walker over the last several days, also noted some diarrhea, that was nonbloody over the last several days, other past medical history consistent with overactive bladder recent bladder Botox , according to patient family bedside, implantable spinal cord stimulator,, carotid artery disease, status post embolization of cerebral aneurysms, history of degenerative disc disease, osteoarthritis, anemia, hypertension, T2DM. Initial triage vitals notable for fever of 101 ?F, soft low blood pressure, not initially meeting sepsis criteria. She denies any history of tobacco abuse, admits to former alcohol abuse, denies any other drug use. Please note that above description of symptoms, in this electronic medical record under categorization of recalled from ER triage doctor by RN are reflective of an initial nursing assessment, however, is not reflective of my full history and physical exam that was personally taken and clarified. Consequentially, this preceding description of symptoms, which may include the patient's categorized chief complaint in the EMR, do not reflect my personal clinical impression, and the ultimate description of history of present illness and patient stated complaints should be deferred to this section of the note. Unless stated otherwise or congruent with this section of the note, additional signs, symptoms, or incongruence should be interpreted as inaccurate with my clinical impression. Onset (ago): day(s) Related Data Home Medications ?Medication ?Instructions ?Recorded ?Confirmed clonazepam 1 mg tablet (Klonopin) 1 mg PO BIDP PRN Anx iety 09/12/18 01/10/25 empagliflozin 12.5 mg-metformin ER 2 tab PO DAILY 06/0801/10/25 1,000 mg tablet,extended rel 24 hr (Synjardy XR) aspirin 81 mg tablet,delayed 81 mg PO DAILY 12/31/22 0 10/17/24 release ferrous sulfate 325 mg (65 mg 325 mg PO TID 12/31/22 0 10/17/24 iron) tablet,delayed release amitriptyline 25 mg tablet 25 mg PO HS 06/21/23 pantoprazole 40 mg tablet,delayed 40 mg PO BID 4 10/17/24 release rosuvastatin 10 mg tablet 10 mg PO HS 06/21/23 5 vortioxetine 20 mg tablet 20 mg PO DAILY 06/21/2305/02 (Trintellix) carvedilol 25 mg tablet 25 mg PO BID 10/27/23 darifenacin 15 mg tablet,extended 15 mg PO ONCE 10/17/24 release 24 hr calcium carbonate (Calcium 600) 600 mg PO DAILY 10/17/24 irbesartan 300 mg tablet 300 mg PO DAILY 04/11/2411/02 lactobacillus combination no.9 4 4,000 mmu cells PO DA ZOIE 04/11/24 10/17/24 billion cell capsule (Adult 50 Plus Probiotic) multivitamin 1 tab PO DAILY 04/11/2411/02 finerenone 10 mg tablet (Kerendia) 10 mg PO DAILY 04/0901/10/25 saxagliptin 5 mg tablet 5 mg PO DAILY 05/03/2401/10 vonoprazan 10 mg tablet (Voquezna) 10 mg PO DAILY 05/0901/10/25 trospium 20 mg tablet mg PO 08/15/24 10/17/24 vibegron 75 mg tablet (Gemtesa) 75 mg PO DAILY 5 10/17/24 guanfacine 1 mg tablet 1 mg PO DAILY 01/10/2501/10 hydralazine 25 mg tablet 25 mg PO DAILY 01/10/2505/02 pioglitazone 30 mg tablet 30 mg PO DAILY 01/10/2505/02 Previous Rx's ?Medication ?Instructions ?Recorded mirabegron 50 mg tablet,extended 50 mg PO DAILY #30 ta bs 05/16/24 release 24 hr (Myrbetriq) clobetasol 0.05 % topical cream 1 applic topical DAILY #60 grams 08/15/24 triamcinolone acetonide 0.5 % 1 applic topical TID #15 grams 08/31/24 topical ointment gabapentin 300 mg capsule 300 mg PO .qhs PRN pain 14 d ays 09/03/24 #14 caps valacyclovir 1 gram tablet 1,000 mg PO Q8H 7 days #21 tabs 09/03/24 (Valtrex) Allergies Allergy/AdvReac Type Severity Reaction Status Date / Time semaglutide (From Ozempic) AdvReac Mild Nausea Verified 10/17/24 10:27 PFS PFS Disclaimer: The information contained in this section may have been updated after the patient was seen, as this information can be updated by other users. Medical History Fall Blunt head trauma Anemia Stage 3b chronic kidney disease (CKD) History of respiratory syncytial virus (RSV) infection Cough syncope Respiratory syncytial virus (RSV) Paroxysmal A-fib Accelerated junctional rhythm Abnormal electrocardiogram [ECG] [EKG] Depression History of trigger finger History of cyst of breast Word finding difficulty Sciatica SVT (supraventricular tachycardia) Abnormal EKG Dyspnea Hx of mitral valve prolapse HLD (hyperlipidemia) HTN (hypertension) Diabetes mellitus Family history of heart disease Surgical History History of knee replacement right knee History of colonoscopy History of esophagogastroduodenoscopy (EGD) History of surgery aneurism repair History of carpal tunnel release History of hernia repair History of biopsy of temporal artery History of cholecystectomy Family History Other Family history of cardiac disorder Social History Smoking Status: Never smoker alcohol intake: never substance use type: denies use current occupational status: retired Travel in the last 8 weeks?: None household members: spouse and children housing: house caffeine: Yes Have you lived/traveled outside [place] in past 30 days?: No Contact w/someone who lives/traveled outside [place] past 30 days?: No Exposure to someone with infectious disease in past 14 days?: No Do you have a fever (greater than 100.4 F or 38 C)?: No Have you tested positive for COVID-19?: No Exposed to someone with COVID-19 in past 14 days?: No Do you have a sore throat?: No Do you have a cough?: No Do you have any weakness?: No Do you have any diarrhea?: No Are you experiencing any unusual bleeding?: No Do you have any muscle aches/pain?: No Do you have any abdominal pain?: No Are you experiencing loss of taste or smell?: No Other Medical History Have you received the Flu Vaccine for this season: Yes Have you received the Pneumonia Vaccine: Yes ROS Obtained: Yes All systems reviewed & no additional complaints except as documented Physical Exam General General appearance: alert and in no apparent distress Head Head exam: atraumatic and normocephalic Eye Eye exam: Present PERRL and EOMI ENT ENT exam: Present mucous membranes moist Neck Neck exam: Present normal inspection Chest Chest inspection: Present normal inspection and symmetric chest wall rise Respiratory Respiratory exam: Present other (Minimal crackles noted throughout bilateral lung rice); Absent normal lung sounds bilaterally, respiratory distress or wheezes Cardiovascular Cardiovascular exam: Present regular rate and normal rhythm; Absent tachycardia Abdominal Exam Abdominal exam: Present soft and distention; Absent tenderness, guarding, rebound or rigidity Extremities Exam Extremities exam: Present normal inspection Neurological Exam Neurological exam: Present alert and other (GCS of 14, oriented to person and place, follows commands, moves extremities to command, global weakness noted, some confusion about specific date and time); Absent oriented X3 Psychiatric Psychiatric exam: Present normal affect Skin Skin exam: Present warm and dry Medical Decision Making Medical Records Medical records reviewed: Yes I reviewed the patient's medical records. Screening: Per USPSTF and CDC recommendations, given the prevalence of disease in our region, it is our hospital?s policy to screen for HIV and viral Hepatitis for all patients aged 18 and over and those with ongoing risk factors. Bhavik Inquiry Pt receiving controlled substance: No Vital Signs: 01/10/25 10:00 01/10/25 10:00 01/10/25 10:16 Temperature 101.1 F H 101.1 F H Temperature Source Oral Pulse Rate 75 72 Pulse Rate [Right] 75 Respiratory Rate 16 16 Blood Pressure 91/75 L 105/79 L Blood Pressure [Right Arm] 91/75 L Blood Pressure Mean [Right Arm] 80 Blood Pressure Source Blood Pressure Position 02 Sat by Pulse Oximetry 93 L 93 L 91 L Oxygen Delivery Method Room Air 01/10/25 10:31 01/10/25 11:01 01/10/25 11:31 Temperature Temperature Source Pulse Rate 72 68 77 Pulse Rate [Right] Respiratory Rate 18 15 Blood Pressure 160/54 H 154/53 H 155/66 H Blood Pressure [Right Arm] Blood Pressure Mean [Right Arm] Blood Pressure Source Blood Pressure Position 02 Sat by Pulse Oximetry 91 L 93 L 95 Oxygen Delivery Method Room Air 01/10/25 12:01 01/10/25 13:01 01/10/25 13:31 Temperature Temperature Source Pulse Rate 61 61 53 L Pulse Rate [Right] Respiratory Rate 21 25 H 12 Blood Pressure 132/67 137/49 L 134/56 L Blood Pressure [Right Arm] Blood Pressure Mean [Right Arm] Blood Pressure Source Blood Pressure Position 02 Sat by Pulse Oximetry 93 L 95 93 L Oxygen Delivery Method Room Air Room Air Room Air 01/10/25 13:32 01/10/25 14:01 Temperature 98.2 F Temperature Source Temporal Artery Scan Pulse Rate 55 L 59 L Pulse Rate [Right] Respiratory Rate 18 16 Blood Pressure 134/56 L 154/55 H Blood Pressure [Right Arm] Blood Pressure Mean [Right Arm] Blood Pressure Source Automatic Cuff Blood Pressure Position Sitting 02 Sat by Pulse Oximetry 95 Oxygen Delivery Method Room Air Room Air Lab Data Lab results reviewed: Yes I reviewed the patient's lab results. Lab Results 01/10/25 10:30: WBC 7.8, RBC 3.26 L, Hgb 10.6 L, Hct 31.7 L, MCV 97.2, MCH 32.5 H, MCHC 33.4, RDW 13.9, Plt Count 212, MPV 9.7, Neut % (Auto) 70.9, Lymph % (Auto) 11.2, Thomas % (Auto) 16.0 H, Eos % (Auto) 1.0, Baso % (Auto) 0.3, Neut # (Auto) 5.5, Lymph # (Auto) 0.9, Thomas # (Auto) 1.2 H, Eos # (Auto) 0.1, Baso # (Auto) 0.0, PT 12.2, INR 1.11 H, Sodium 137, Potassium 4.7, Chloride 100, Carbon Dioxide 24, Anion Gap 17.7 H, BUN 23 H, Creatinine 1.40 H, Estimated Creat Clear 47, Estimated GFR 37 L, Est GFR ( Amer) 44 L, Glucose 183 H, Lactate 0.8, Calcium 9.4, Magnesium 2.1, Total Bilirubin 0.8, AST 37 H, ALT 20, Alkaline Phosphatase 101, Troponin I < 0.01, NT-Pro-B Natriuret Pep 2570 H, Total Protein 7.3, Albumin 4.0, Globulin 3.3 H, Albumin/Globulin Ratio 1.2 01/10/25 10:37: VBG pH 7.42 H, VBG pCO2 35.1, VBG pO2 51.6 H, VBG HCO3 22.4 L, VBG Total CO2 23.5, VBG O2 Saturation 87.3 H, VBG Base Excess -2.0, VBG Lactic Acid 1.4 01/10/25 10:40: Chlamy pneumoniae PCR Not detected, Adenovirus (PCR) Not detected, B. pertussis DNA (PCR) Not detected, Coronavirus OC43 (PCR) Not detected, Coronavirus HKU1 (PCR) Not detected, Coronavirus 229E (PCR) Not detected, SARS-CoV-2 (PCR) Not detected, Coronavirus NL63 (PCR) Not detected, Human Metapneumovir PCR Not detected, Influenza A (H1) PCR Not detected, Influ A (H1N1/09) PCR Not detected, Influenza A (H3) PCR Not detected, Influenza Type A (PCR) Not detected, Influenza Type B (PCR) Not detected, M. pneumoniae (PCR) Not detected, Parainfluenza 1 (PCR) Not detected, Parainfluenza 2 (PCR) Not detected, Parainfluenza 3 (PCR) Not detected, Parainfluenza 4 (PCR) Not detected, RSV (PCR) Not detected, Entero/Rhino (PCR) Not detected 01/10/25 11:52: Urine Color Yellow, Urine Appearance Clear, Urine pH 5.5, Ur Specific [place] 1.015, Urine Protein Trace, Urine Glucose (UA) 3+, Urine Ketones Trace, Urine Blood Trace-l, Urine Nitrate Negative, Urine Bilirubin Negative, Urine Urobilinogen 0.2, Ur Leukocyte Esterase Negative, Urine RBC Occasional, Urine WBC Occasional, Ur Squamous Epith Cells Occasional, Urine Bacteria Trace 01/10/25 10:30 01/10/25 10:30 Orders (Tests/Meds): ED MEDICATIONS Generic Name Dose Route Start Last Admin Trade Name Freq PRN Reason Stop Dose Admin Acetaminophen 650 mg 01/10/25 13:00 Acetaminophen 325mg Tab PO 02/09/25 12:59 Q6HP PRN Fever or Mild Pain (1-3) Lactated Ringer's 1,000 mls @ 50 mls/hr 01/10/25 13:00 01/10/25 13:25 Lactated Ringer's 1000 Ml Bag IV 02/09/25 12:59 50 mls/hr .Q20H LAURA Administration Discontinued Medications Generic Name Dose Route Start Last Admin Trade Name Freq PRN Reason Stop Dose Admin Acetaminophen 1,000 mg 01/10/25 10:09 01/10/25 10:47 Acetaminophen 500mg Tab PO 01/10/25 10:10 1,000 mg ONCE ONE Administration Lactated Ringer's 1,000 mls @ 999 mls/hr 01/10/25 10:08 01/10/25 11:54 Lactated Ringer's 1000 Ml Bag IV 01/10/25 11:08 Infused .Q1H1M ONE Infusion Piperacillin Sod/Tazobactam 50 mls @ 100 mls/hr 01/10/25 12:48 01/10/25 13:31 Sod 3.375 gm/ Sodium Chloride IV 01/10/25 13:17 Infused ONCE ONE Infusion Iopamidol 75 ml 01/10/25 11:16 01/10/25 11:17 Iopamidol-370 (76%);100ml Bottle IV 01/10/25 11:17 75 ml ONCE ONE Administration Sodium Chloride 40 ml 01/10/25 11:16 01/10/25 11:17 0.9 % Sodium Chloride 50 Ml Vial IV 01/10/25 11:17 40 ml ONCE ONE Administration Sodium Chloride 10 ml 01/10/25 11:16 01/10/25 11:17 Sodium Chloride 0.9% 10ml Syr (Rad Only) IV 01/10/25 11:17 10 ml ONCE ONE Administration ORDERS Category Date Time Status CT abdomen pelvis w con Stat Cat Scan 01/10/25 10:[address] angio chest PE protocol Stat Cat Scan 01/10/25 10:[address] cervical spine wo con Stat Cat Scan 01/10/25 10:[address] head/brain wo con Stat Cat Scan 01/10/25 10:05 Completed XR chest portable Stat Exams 01/10/25 10:06 Completed Complete Blood Count Auto Diff Stat Lab 01/10/25 10:30 Completed Comprehensive Metabolic Panel Stat Lab 01/10/25 10:30 Completed Full Resp Panel w/COVID ([facility]) Routine Lab 01/10/25 10:40 Completed Lactic Acid Stat Lab 01/10/25 10:30 Completed Magnesium Stat Lab 01/10/25 10:30 Completed NT Pro Brain Natriuretic Pep. Stat Lab 01/10/25 10:30 Completed PT INR [Prothrombin Time INR] Stat Lab 01/10/25 10:30 Completed Troponin I Q3H Lab 01/10/25 13:26 Received Troponin I Q3H Lab 01/10/25 16:15 Ordered Troponin I Stat Lab 01/10/25 10:30 Completed Urinalysis and Microscopic Stat Lab 01/10/25 11:52 Completed Blood Culture Stat Micro 01/10/25 12:37 Received VBG [Venous Blood Gas] Stat RT 01/10/25 10:37 Completed Medical Decision Narrative: 74-year-old female presents emergency department via EMS for altered mental status generalized weakness diarrhea and shortness of breath for the last several days, differential diagnose include but not limited to, acute UTI, acute pyelonephritis, gastroenteritis, colitis, cardiac arrhythmia, electrolyte disturbance, acute kidney injury, pneumonia, encephalopathy, uremic encephalopathy, metabolic encephalopathy, viral URI. I discussed this patient's case with the attending physician Dr. Newsome he saw and examined the patient as well Will obtain basic laboratory studies, lactic acid level, magnesium level, proBNP, PT/INR, troponin, urinalysis, EKG, chest x-ray, CT cervical spine without contrast, CT head without contrast, CT abdomen pelvis with contrast, CTA chest with without contrast, Also obtain full respiratory panel, blood cultures, will give 1000 mg p.o. Tylenol for fever, and will give 1 L LR IV. No leukocytosis, hemoglobin hematocrit are 10.6/31.7, appears to be in line with her baseline anemia VBG is unremarkable CMP is notable for elevated BUN at 23, creatinine elevation 1.40 which appears increased to the baseline, no lactic acidosis, Coagulation studies are unremarkable proBNP is elevated at 2570. Troponin is less than 0.01. UA is notable for trace ketonuria, trace hematuria negative nitrites negative leukocyte esterase Microscopic analysis notable for occasional RBCs occasional WBCs occasional squamous epithelial cells and trace bacteria. I reviewed the patient's CT head without contrast along the corresponding radiologic report no acute intracranial abdomen I reviewed the patient's CT cervical spine without contrast on the corresponding radiologic report, no acute osseous abnormality the cervical spine. I reviewed the patient's CTA chest with and without contrast PE protocol along the corresponding radiologic report, no evidence of pulmonary embolism or aortic dissection. I reviewed the patient's CT abdomen pelvis with contrast along the corresponding radiologic report, no acute abnormality of the pelvis stable left adnexal mass which could represent teratoma consider P[employer] Feeder consultation. Viral panel is negative Will start the patient on prophylactic broad-spectrum antibiotics with IV Zosyn, for fever of unknown origin, and patient not initially meeting sepsis criteria. I reviewed the patient's chest x-ray along the corresponding radiologic report, no acute cardiopulmonary process. I attempted to call hospitalist physician at approximately 12:50 PM, he is currently at this time performing direct patient care will call me back. Hospitalist physician will not be taking care of this patient as patient is a Dr. Gunn patient. Thus we will call Dr. Gunn. I discussed this patient's case with Dr. Gunn over the phone at approximate 12:55 PM, he graciously accepts the patient for admission, for acute kidney injury most likely in the setting of GI losses recent diarrhea, as well as generalized weakness, fever and malaise. After Dr. Newsome and I saw and examined the patient, we believe low risk for any MDM SR infection, due to patient presentation and clinical history. I discussed need for admission with the patient family bedside patient family in agreement with the current admission plan/treatment plan. Patient would like to be full code. Critical Care Critical Care Time Critical Care Time: No
--- NOTE | 2025-01-10 10:12 | CT_ITS ---
FINAL REPORT TECHNIQUE: Thin section axial images were obtained through the cervical spine without contrast. Multiplanar reconstruction images were obtained from the axial data. Exam was performed using dose reduction techniques. CLINICAL HISTORY: Generalized weakness, fall COMPARISON: 06/21/2023 FINDINGS: There is no acute fracture. There is stable, anterolisthesis of C4 on C5. There is multilevel degenerative disc disease, unchanged. There is no evidence of unilateral or bilateral facet lock. Craniocervical junction is intact. Vertebral body height is preserved. No acute paraspinal abnormality is identified. IMPRESSION: No acute osseous abnormality of the cervical spine. Reviewed, Interpreted and Dictated by Montse Guillaume MD Transcribed by Elissa Kwan Authenticated and [facility]
[2025-01-10 10:43] LABS: Lactate Venous 1.4 mmol/L (0.4-2.0); VBG HCO3 22.4 mmol/L (23-30); VBG PCO2 35.1 mmol/L (35-51); VBG PH 7.42 mmol/L (7.31-7.41); VBG PO2 51.6 mmol/L (28-40)
[2025-01-10 10:46] LABS: Hematocrit 31.7 % (37.0-47.0); Hemoglobin 10.6 g/dL (12.2-16.2); Immature Granulocytes % 0.6 %; Mean Corpuscular HGB Conc 33.4 g/dL (31.8-35.4); Mean Corpuscular Hemoglobin 32.5 pg (27.0-31.2); Mean Corpuscular Volume 97.2 fl (81-99); Nucleated Red Blood Cells % 0 %; Platelet Count 212 K/mm3 (142-424); Red Blood Count 3.26 M/mm3 (4.20-5.40); Red Cell Distribution Width-SD 49.9 fL; White Blood Count 7.8 K/mm3 (4.8-10.8)
[2025-01-10 10:47] LABS: Adenovirus,PCR Not Detected (NotDetected); Chlamydophila Pneumoniae, PCR Not Detected (NotDetected); Coronavirus 19, PCR Not Detected (NotDetected); Coronovirus HKU1,PCR Not Detected (NotDetected); Influenza A, PCR Not Detected (NotDetected); Influenza AH1, 2009 Not Detected (NotDetected); Influenza AH1, PCR Not Detected (NotDetected); Influenza AH3,PCR Not Detected (NotDetected); Influenza B, PCR Not Detected (NotDetected); Mycoplasma Pneumoniae, PCR Not Detected (NotDetected); Parainfluenza 1, PCR Not Detected (NotDetected); Parainfluenza 2, PCR Not Detected (NotDetected); Parainfluenza 3, PCR Not Detected (NotDetected); Parainfluenza 4, PCR Not Detected (NotDetected)
[2025-01-10] MEDS: ACETAMINOPHEN 500MG TAB 1000 MG PO (10:47)
[2025-01-10] MEDS: LACTATED RINGERS 1000ML 1,000 ML 999 ML IV (10:47)
[2025-01-10 10:51] LABS: Albumin Level 4.0 g/dl (3.5-5.0); Chloride 100 mmol/L (98-107); Potassium 4.7 mmoL/L (3.5-5.1); Sodium 137 mmol/L (136-145)
[2025-01-10 10:54] LABS: Alanine Aminotransferase 20 U/L (12-78); Albumin/Globulin Ratio 1.2 (1.1-1.8); Alkaline Phosphatase 101 U/L (38-126); Anion Gap 17.7 mEq/L (5-15); Aspartate Amino Transferase 37 U/L (14-36); Bilirubin,Total 0.8 mg/dl (0.2-1.3); Blood Urea Nitrogen 23 mg/dl (7-17); Calcium 9.4 mg/dl (8.4-10.2); Carbon Dioxide 24 mmol/L (22.0-30.0); Creatinine Clearance Estimated 47 mL/min (50-200); Creatinine,Serum 1.40 mg/dl (0.52-1.04); Estimated Glomerular Filt Rate 37 ml/min (>60); GFR (African American) 44 ML/MIN (>60); Globulin 3.3 g/dL (1.3-3.2); Glucose 183 mg/dl (74-100); INR 1.11 (0.9-1.1); Magnesium 2.1 mg/dl (1.6-2.3); Prothrombin Time 12.2 seconds (10.1-12.5); Total Protein,Serum 7.3 g/dl (6.3-8.2)
[2025-01-10 11:04] LABS: NT Pro Brain Natriuretic Pep. 2570 pg/mL (0-125)
[2025-01-10 11:08] LABS: Troponin I < 0.01 ng/ml (0.00-0.034)
[2025-01-10] MEDS: IOPAMIDOL-370 (76%);100ML BOTTLE 75 ML IV (11:17)
[2025-01-10] MEDS: 0.9 % SODIUM CHLORIDE 50 ML VIAL 40 ML IV (11:17)
[2025-01-10] MEDS: SODIUM CHLORIDE 0.9% 10ML SYR (RAD ONLY) 10 ML IV (11:17)
--- NOTE | 2025-01-10 11:17 | PC.NURSE ---
patient in Ct at this time
--- NOTE | 2025-01-10 11:30 | PC.NURSE ---
patient back from CT at this time, purewick applied to try to obtain urine specimen. patient provided with warm blanket, call light in reach. no further needs at this time.
[2025-01-10 11:57] LABS: Bilirubin,Urine Negative (Negative); Color,Urine YELLOW (Yellow); Glucose,Urine (UA) 3+ (Negative); Ketones,Urine TRACE (Negative); Leukocyte Esterase,Urine Negative (Negative); Microscopic, Urine URINE MICROSCOPIC (MICROSCOPIC); PH,Urine 5.5 (5.0-8.5); Protein,Urine TRACE (Negative); Specific Gravity, Urine 1.015 (1.005-1.030); Urobilinogen,Urine 0.2 EU/dl (0.2)
[2025-01-10 12:06] LABS: Bacteria,Urine Trace /lpf; RBC,Urine Occasional #/hpf (0-3); Squamous Epithelial Cell,Urine Occasional #/hpf (0-5); WBC,Urine Occasional #/hpf (0-3)
[2025-01-10] MEDS: PIPERACILLIN/TAZO 3.375 GM in 0.9 % SODIUM CHLORIDE 50 ML IV ×2 (13:05→20:10)
[2025-01-10] MEDS: LACTATED RINGERS 1000ML 1,000 ML 50 ML IV (13:25)
--- NOTE | 2025-01-10 13:30 | PC.NURSE ---
lab notified that second troponin was sent, report called to med surg and given to RAI Chase at this time
[2025-01-10 14:00] LABS: Troponin I 0.02 ng/ml (0.00-0.034)
--- NOTE | 2025-01-10 14:13 | PC.NURSE ---
called the floor for transport, per desk tech there was no admit order in so they wouldnt transport patient until the order placed. ER director made aware and order placed
--- NOTE | 2025-01-10 14:27 | PC.NURSE ---
arrived by stretcher from ED
--- NOTE | 2025-01-10 14:41 | EXP.HP ---
History of Present Illness *Admission Date: 01/10/25 *Reason for visit:: diarrhea, KLAUS *History of present illness: 74-year-old female presents the emergency department via EMS for generalized weakness that has been worsening since Wednesday according to EMS and patient, for some possible intermittent confusion, initially called out for a lift assist , of the patient called out, patient was found down, unsure of fall, patient is GCS of 14 some confusion about specific date and who the president is, patient admits to generalized weakness and malaise, denies any fever or chills, denies any chest pain admits to shortness of breath since Wednesday as well as a cough, it is nonproductive, denies any overt abdominal pain, denies any diarrhea, denies any nausea vomiting, no urinary symptomatology. At the end of my assessment is now available at the bedside to provide some additional history, patient's states that she normally does not walk with assistance has been utilizing the cane and walker over the last several days, also noted some diarrhea, that was nonbloody over the last several days, other past medical history consistent with overactive bladder recent bladder Botox , according to patient family bedside, implantable spinal cord stimulator,, carotid artery disease, status post embolization of cerebral aneurysms, history of degenerative disc disease, osteoarthritis, anemia, hypertension, T2DM. Initial triage vitals notable for fever of 101 ?F, soft low blood pressure, not initially meeting sepsis criteria. She denies any history of tobacco abuse, admits to former alcohol abuse, denies any other drug use. (above as per ER physician) [facility] Disclaimer: The information contained in this section may have been updated after the patient was seen, as this information can be updated by other users. Medical History Fall Blunt head trauma Anemia Stage 3b chronic kidney disease (CKD) History of respiratory syncytial virus (RSV) infection Cough syncope Respiratory syncytial virus (RSV) Paroxysmal A-fib Accelerated junctional rhythm Abnormal electrocardiogram [ECG] [EKG] Depression History of trigger finger History of cyst of breast Word finding difficulty Sciatica SVT (supraventricular tachycardia) Abnormal EKG Dyspnea Hx of mitral valve prolapse HLD (hyperlipidemia) HTN (hypertension) Diabetes mellitus Family history of heart disease Surgical History History of knee replacement History of colonoscopy History of esophagogastroduodenoscopy (EGD) History of surgery History of carpal tunnel release History of hernia repair History of biopsy of temporal artery History of cholecystectomy Family History Family history of cardiac disorder Social History Smoking Status: Never smoker alcohol intake: never substance use type: denies use current occupational status: retired Travel in the last 8 weeks?: None household members: spouse and children housing: house caffeine: Yes Have you lived/traveled outside [place] in past 30 days?: No Contact w/someone who lives/traveled outside [place] past 30 days?: No Exposure to someone with infectious disease in past 14 days?: No Do you have a fever (greater than 100.4 F or 38 C)?: No Have you tested positive for COVID-19?: No Exposed to someone with COVID-19 in past 14 days?: No Do you have a sore throat?: No Do you have a cough?: No Do you have any weakness?: No Do you have any diarrhea?: No Are you experiencing any unusual bleeding?: No Do you have any muscle aches/pain?: No Do you have any abdominal pain?: No Are you experiencing loss of taste or smell?: No Other Medical History Have you received the Flu Vaccine for this season: Yes Have you received the Pneumonia Vaccine: Yes Review of Systems Constitutional Constitutional: Reports fatigue, Denies headache(s) and Reports weakness Eyes Eyes: Denies blurry vision and Denies diplopia ENT Ears, Nose, Mouth, and Throat: Denies headache(s), Denies nasal congestion, Denies sore throat and Denies vertigo *Cardiovascular Cardiovascular: Denies chest pain, Denies dyspnea and Denies leg edema *Respiratory Respiratory: Denies cough and Denies dyspnea *Gastrointestinal Gastrointestinal: Reports abdominal pain, Reports loose stools, Reports nausea and Denies vomiting *Genitourinary Genitourinary: Denies difficulty voiding and Denies dysuria *Musculoskeletal Musculoskeletal: Denies arthralgias and Denies myalgias *Neurologic Neurologic: Denies headache(s), Denies vertigo and Reports weakness Endocrine Endocrine: Reports fatigue Meds Home Medications and Allergies Home Medications ?Medication ?Instructions ?Recorded ?Confirmed ?Type clonazepam 1 mg tablet (Klonopin) 1 mg PO BIDP PRN Anxiety 09/12/18 01/10/25 History empagliflozin 12.5 mg-metformin ER 2 tab PO DAILY 06/23/21 01/10/25 History 1,000 mg tablet,extended rel 24 hr (Synjardy XR) aspirin 81 mg tablet,delayed 81 mg PO DAILY 12/31/22 10/17/24 History release ferrous sulfate 325 mg (65 mg 325 mg PO TID 12/31/22 10/17/24 History iron) tablet,delayed release amitriptyline 25 mg tablet 25 mg PO HS 06/21/23 01/10/25 History pantoprazole 40 mg tablet,delayed 40 mg PO BID 06/21/23 01/10/25 History release rosuvastatin 10 mg tablet 10 mg PO HS 06/21/23 01/10/25 History vortioxetine 20 mg tablet 20 mg PO DAILY 06/21/23 01/10/25 History (Trintellix) carvedilol 25 mg tablet 25 mg PO BID 10/27/23 01/10/25 History darifenacin 15 mg tablet,extended 15 mg PO ONCE 02/28/24 10/17/24 History release 24 hr calcium carbonate (Calcium 600) 600 mg PO DAILY 04/11/24 10/17/24 History irbesartan 300 mg tablet 300 mg PO DAILY 04/11/24 10/17/24 History multivitamin 1 tab PO DAILY 04/11/24 01/10/25 History finerenone 10 mg tablet (Kerendia) 10 mg PO DAILY 05/03/24 01/10/25 History saxagliptin 5 mg tablet 5 mg PO DAILY 05/03/24 01/10/25 History mirabegron 50 mg tablet,extended 50 mg PO DAILY #30 tabs 05/16/24 01/10/25 Rx release 24 hr (Myrbetriq) vonoprazan 10 mg tablet (Voquezna) 10 mg PO DAILY 05/23/24 01/10/25 History clobetasol 0.05 % topical cream 1 applic topical DAILY #60 grams 08/15/24 10/17/24 Rx trospium 20 mg tablet mg PO 08/15/24 10/17/24 History gabapentin 300 mg capsule 300 mg PO .qhs PRN pain 14 days 09/03/24 10/17/24 Rx #14 caps guanfacine 1 mg tablet 1 mg PO DAILY 01/10/25 01/10/25 History hydralazine 25 mg tablet 25 mg PO DAILY 01/10/25 01/10/25 History pioglitazone 30 mg tablet 30 mg PO DAILY 01/10/25 01/10/25 History vibegron 75 mg tablet (Gemtesa) 75 mg PO DAILY 01/10/25 01/10/25 History New Prescriptions to Start Prescriptions: Allergies Allergy/AdvReac Type Severity Reaction Status Date / Time semaglutide (From Ozempic) AdvReac Mild Nausea Verified 10/17/24 10:27 Exam Data for Last 24 hours Vital signs and Labs for Last 24 Hours: Temp Pulse Resp BP Pulse Ox O2 Del Method 98.2 F 59 L 16 154/55 H 95 Room Air 01/10/25 13:32 01/10/25 14:01 01/10/25 14:01 01/10/25 14:01 01/10/25 14:01 01/10/25 14:01 Laboratory Results - last 24 hr 01/10/25 10:30: WBC 7.8, RBC 3.26 L, Hgb 10.6 L, Hct 31.7 L, MCV 97.2, MCH 32.5 H, MCHC 33.4, RDW 13.9, Plt Count 212, MPV 9.7, Neut % (Auto) 70.9, Lymph % (Auto) 11.2, [place] % (Auto) 16.0 H, Eos % (Auto) 1.0, Baso % (Auto) 0.3, Neut # (Auto) 5.5, Lymph # (Auto) 0.9, [place] # (Auto) 1.2 H, Eos # (Auto) 0.1, Baso # (Auto) 0.0, PT 12.2, INR 1.11 H, Sodium 137, Potassium 4.7, Chloride 100, Carbon Dioxide 24, Anion Gap 17.7 H, BUN 23 H, Creatinine 1.40 H, Estimated Creat Clear 47, Estimated GFR 37 L, Est GFR ( Amer) 44 L, Glucose 183 H, Lactate 0.8, Calcium 9.4, Magnesium 2.1, Total Bilirubin 0.8, AST 37 H, ALT 20, Alkaline Phosphatase 101, Troponin I < 0.01, NT-Pro-B Natriuret Pep 2570 H, Total Protein 7.3, Albumin 4.0, Globulin 3.3 H, Albumin/Globulin Ratio 1.2 01/10/25 10:37: VBG pH 7.42 H, VBG pCO2 35.1, VBG pO2 51.6 H, VBG HCO3 22.4 L, VBG Total CO2 23.5, VBG O2 Saturation 87.3 H, VBG Base Excess -2.0, VBG Lactic Acid 1.4 01/10/25 10:40: Chlamy pneumoniae PCR Not detected, Adenovirus (PCR) Not detected, B. pertussis DNA (PCR) Not detected, Coronavirus OC43 (PCR) Not detected, Coronavirus HKU1 (PCR) Not detected, Coronavirus 229E (PCR) Not detected, SARS-CoV-2 (PCR) Not detected, Coronavirus NL63 (PCR) Not detected, Human Metapneumovir PCR Not detected, Influenza A (H1) PCR Not detected, Influ A (H1N1/09) PCR Not detected, Influenza A (H3) PCR Not detected, Influenza Type A (PCR) Not detected, Influenza Type B (PCR) Not detected, M. pneumoniae (PCR) Not detected, Parainfluenza 1 (PCR) Not detected, Parainfluenza 2 (PCR) Not detected, Parainfluenza 3 (PCR) Not detected, Parainfluenza 4 (PCR) Not detected, RSV (PCR) Not detected, Entero/Rhino (PCR) Not detected 01/10/25 11:52: Urine Color Yellow, Urine Appearance Clear, Urine pH 5.5, Ur Specific [place] 1.015, Urine Protein Trace, Urine Glucose (UA) 3+, Urine Ketones Trace, Urine Blood Trace-l, Urine Nitrate Negative, Urine Bilirubin Negative, Urine Urobilinogen 0.2, Ur Leukocyte Esterase Negative, Urine RBC Occasional, Urine WBC Occasional, Ur Squamous Epith Cells Occasional, Urine Bacteria Trace 01/10/25 13:26: Troponin I 0.02 I & O for Last 24 hours: Intake & Output 01/08/25 01/09/25 01/10/25 01/11/25 11:59 11:59 11:59 11:59 Intake Total 1000 / 999 50 / 50 Balance 1000 / 999 50 / 50 Weight 185 lb Constitutional Constitutional: no acute distress *Routine HEENT Exam Head: Present normocephalic and atraumatic Eye: Present EOMI and PERRL ENT: Present mucous membranes dry *Routine Neck Exam Neck: Present supple and full ROM *Routine Respiratory Exam Respiratory: Present CTA bilaterally *Routine Cardiovascular Exam Cardiovascular: Present RRR *Routine Abdominal Exam Abdominal: Present soft, normoactive bowel sounds and tenderness (diffuse); Absent distended *Routine Rectal Exam Rectal:: deferred *Routine Genitalia Exam Genitalia:: deferred *Routine Extremities Exam Extremities: Absent cyanosis, clubbing or edema *Routine Skin Exam Skin: Present intact; Absent erythema *Routine Neurological Exam Neurological: Present alert and oriented X3 H&P: Result Impressions 1. Abdomen/Pelvic CT- No acute abnormality of the abdomen or pelvis. Stable left adnexal mass which could represent a teratoma. 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 2. Chest CTA - No evidence of pulmonary embolism or aortic dissection. 3. Head CT - No acute intracranial abnormality. 4. CXR - No acute cardiopulmonary process. 5. Cervical Spine CT - No acute osseous abnormality of the cervical spine. Assessment and Plan *Assessment and plan (1) Diarrhea: Status: Acute Category: Medical Code(s): R19.7 - Diarrhea, unspecified (2) Generalized weakness: Status: Acute Category: Medical Code(s): R53.1 - Weakness (3) KLAUS (acute kidney injury): Status: Acute Category: Medical Code(s): N17.9 - Acute kidney failure, unspecified (4) HTN (hypertension): Status: Chronic Qualifiers: Hypertension type: essential hypertension Qualified Code(s): I10 - Essential (primary) hypertension Category: Medical Code(s): I10 - Essential (primary) hypertension (5) Diabetes mellitus: Status: Chronic Qualifiers: Diabetes mellitus complication status: with other specified complication Diabetes mellitus nursing home insulin use: unspecified nursing home insulin use status Diabetes mellitus type: type 2 Qualified Code(s): E11.69 - Type 2 diabetes mellitus with other specified complication Category: Medical Code(s): E11.9 - Type 2 diabetes mellitus without complications Plan Patient has been started on IVF's. Will get a diarrhea panel. Will discuss further care with Dr. Gunn. Dr. Gunn entry - Saw patient, agree with above note. Bennett Torres, await diarrhea panel results.
--- NOTE | 2025-01-10 16:32 | PC.NURSE ---
pt unsure of home meds
[2025-01-10 17:00] LABS: Troponin I < 0.01 ng/ml (0.00-0.034)
[2025-01-10 17:08] LABS: Adenovirus F 40/41, stool Not Detected (NotDetected); Cyclospora Cayetanesis Not Detected (NotDetected); Plesimonas Shigalloides, PCR Not Detected (NotDetected); Salmonella, PCR Not Detected (NotDetected); Shiga-like toxin E coli Not Detected (NotDetected); Shigella Enterovasive E coli Not Detected (NotDetected); Vibrio, PCR Not Detected (NotDetected); Yersinia Entercolitica, PCR Not Detected (NotDetected)
[2025-01-10] MEDS: PANTOPRAZOLE 40MG TABLET 40 MG PO (20:09)
[2025-01-10] MEDS: AMITRIPTYLINE 25MG TABLET 25 MG PO (20:09)
[2025-01-10] MEDS: ATORVASTATIN 20MG TABLET 10 MG PO (20:09)
[2025-01-10 22:51] LABS: Clostridium Difficile A/B, PCR Detected (NotDetected)
[2025-01-11] MEDS: ACETAMINOPHEN 325MG TAB 650 MG PO ×3 (01:25→16:42)
[2025-01-11] MEDS: PIPERACILLIN/TAZO 3.375 GM in 0.9 % SODIUM CHLORIDE 50 ML IV (03:00)
[2025-01-11 04:00] VITALS: BP 178/75; PULSE 66; RESP 16; TEMP 37; O2SAT 94; BMI 34.0
[2025-01-11 06:24] LABS: Hematocrit 30.8 % (37.0-47.0); Hemoglobin 10.2 g/dL (12.2-16.2); Immature Granulocytes % 0.7 %; Mean Corpuscular HGB Conc 33.1 g/dL (31.8-35.4); Mean Corpuscular Hemoglobin 32.0 pg (27.0-31.2); Mean Corpuscular Volume 96.6 fl (81-99); Nucleated Red Blood Cells % 0 %; Platelet Count 221 K/mm3 (142-424); Red Blood Count 3.19 M/mm3 (4.20-5.40); Red Cell Distribution Width-SD 49.6 fL; White Blood Count 9.1 K/mm3 (4.8-10.8)
[2025-01-11 06:31] LABS: Albumin Level 3.7 g/dl (3.5-5.0); Chloride 102 mmol/L (98-107); Potassium 4.2 mmoL/L (3.5-5.1); Sodium 141 mmol/L (136-145)
[2025-01-11 06:34] LABS: Alanine Aminotransferase 25 U/L (12-78); Albumin/Globulin Ratio 1.2 (1.1-1.8); Alkaline Phosphatase 96 U/L (38-126); Anion Gap 20.2 mEq/L (5-15); Aspartate Amino Transferase 53 U/L (14-36); Bilirubin,Total 0.8 mg/dl (0.2-1.3); Blood Urea Nitrogen 22 mg/dl (7-17); Carbon Dioxide 23 mmol/L (22.0-30.0); Creatinine Clearance Estimated 45 mL/min (50-200); Creatinine,Serum 1.60 mg/dl (0.52-1.04); Estimated Glomerular Filt Rate 32 ml/min (>60); GFR (African American) 38 ML/MIN (>60); Globulin 3.2 g/dL (1.3-3.2); Total Protein,Serum 6.9 g/dl (6.3-8.2)
[2025-01-11 06:50] LABS: Calcium 9.0 mg/dl (8.4-10.2); Glucose 135 mg/dl (74-100)
[2025-01-11 07:46] VITALS: BP 199/77; PULSE 67; RESP 18; TEMP 37.3; O2SAT 97
--- NOTE | 2025-01-11 08:25 | EXP.ACUTE.PN ---
Subjective *Date: 01/11/25 *Time: 08:45 Interval history: Patient is feeling a little bit better this morning. She still has some pain in her abdomen but has not had any further diarrhea. She was able to rest and eat Medical Exam Vital signs and Labs for Last 24 Hours: Vital Signs Temp Pulse Pulse Resp BP BP Pulse Ox 01/11/25 07:46 99.1 F 67 18 199/77 H 97 01/11/25 07:00 01/11/25 05:00 01/11/25 04:00 98.6 F 66 16 178/75 H 94 L 01/11/25 03:00 01/11/25 01:00 01/10/25 23:00 01/10/25 21:00 01/10/25 20:00 99.7 F H 71 16 148/61 H 94 L 01/10/25 20:00 01/10/25 18:20 01/10/25 17:00 01/10/25 15:00 01/10/25 14:27 97.9 F 61 18 130/47 L 97 01/10/25 14:01 59 L 16 154/55 H 95 01/10/25 13:32 98.2 F 55 L 18 134/56 L 01/10/25 13:31 53 L 12 134/56 L 93 L 01/10/25 13:29 01/10/25 13:01 61 25 H 137/49 L 95 01/10/25 12:01 61 21 132/67 93 L 01/10/25 11:31 77 15 155/66 H 95 01/10/25 11:01 68 18 154/53 H 93 L 01/10/25 10:31 72 160/54 H 91 L 01/10/25 10:16 72 105/79 L 91 L 01/10/25 10:00 101.1 F H 75 16 91/75 L 93 L 01/10/25 10:00 101.1 F H 75 16 91/75 L 93 L O2 Del Method 01/11/25 07:46 Room Air 01/11/25 07:00 Room Air 01/11/25 05:00 Room Air 01/11/25 04:00 Room Air 01/11/25 03:00 Room Air 01/11/25 01:00 Room Air 01/10/25 23:00 Room Air 01/10/25 21:00 Room Air 12/03/25 20:00 Room Air 01/10/25 20:00 Room Air 01/10/25 18:20 Room Air 01/10/25 17:00 Room Air 01/10/25 15:00 Room Air 01/10/25 14:27 Room Air 01/10/25 14:01 Room Air 01/10/25 13:32 Room Air 01/10/25 13:31 Room Air 01/10/25 13:29 Room Air 01/10/25 13:01 Room Air 01/10/25 12:01 Room Air 01/10/25 11:31 01/10/25 11:01 01/10/25 10:31 Room Air 01/10/25 10:16 01/10/25 10:00 Room Air 01/10/25 10:00 Intake and Output 01/10/25 01/11/25 01/11/25 19:59 03:59 11:59 Intake Total 410 / 990 580 / 990 Output Total 0 / 0 Balance 410 / 990 580 / 990 Intake: Intake, Oral Amount 360 / 840 480 / 840 Intake, Total IV Amount 50 / 150 100 / 150 Piperacillin/Tazo 3.375 gm In 0 50 / 50 .9 % Sodium Chloride 50 ml @ 100 mls/hr IV ONCE ONE Rx#: [id number] Piperacillin/Tazo 3.375 gm In 0 100 / 100 .9 % Sodium Chloride 50 ml @ 100 mls/hr IV Q8H [facility] Rx#: [id number] Output: Output, Urine Amount 0 / 0 Other: Number of Unmeasured Voids 1 Number of Bowel Movements 1 1 Weight 203 lb 8 oz 204 lb 6.4 oz Patient Weight 01/11/25 11:59 Weight 204 lb 6.4 oz Laboratory Results - last 24 hr 01/10/25 10:30: WBC 7.8, RBC 3.26 L, Hgb 10.6 L, Hct 31.7 L, MCV 97.2, MCH 32.5 H, MCHC 33.4, RDW 13.9, Plt Count 212, MPV 9.7, Neut % (Auto) 70.9, Lymph % (Auto) 11.2, [place] % (Auto) 16.0 H, Eos % (Auto) 1.0, Baso % (Auto) 0.3, Neut # (Auto) 5.5, Lymph # (Auto) 0.9, [place] # (Auto) 1.2 H, Eos # (Auto) 0.1, Baso # (Auto) 0.0, PT 12.2, INR 1.11 H, Sodium 137, Potassium 4.7, Chloride 100, Carbon Dioxide 24, Anion Gap 17.7 H, BUN 23 H, Creatinine 1.40 H, Estimated Creat Clear 47, Estimated GFR 37 L, Est GFR ( Amer) 44 L, Glucose 183 H, Lactate 0.8, Calcium 9.4, Magnesium 2.1, Total Bilirubin 0.8, AST 37 H, ALT 20, Alkaline Phosphatase 101, Troponin I < 0.01, NT-Pro-B Natriuret Pep 2570 H, Total Protein 7.3, Albumin 4.0, Globulin 3.3 H, Albumin/Globulin Ratio 1.2 01/10/25 10:37: VBG pH 7.42 H, VBG pCO2 35.1, VBG pO2 51.6 H, VBG HCO3 22.4 L, VBG Total CO2 23.5, VBG O2 Saturation 87.3 H, VBG Base Excess -2.0, VBG Lactic Acid 1.4 01/10/25 10:40: Chlamy pneumoniae PCR Not detected, Adenovirus (PCR) Not detected, B. pertussis DNA (PCR) Not detected, Coronavirus OC43 (PCR) Not detected, Coronavirus HKU1 (PCR) Not detected, Coronavirus 229E (PCR) Not detected, SARS-CoV-2 (PCR) Not detected, Coronavirus NL63 (PCR) Not detected, Human Metapneumovir PCR Not detected, Influenza A (H1) PCR Not detected, Influ A (H1N1/09) PCR Not detected, Influenza A (H3) PCR Not detected, Influenza Type A (PCR) Not detected, Influenza Type B (PCR) Not detected, M. pneumoniae (PCR) Not detected, Parainfluenza 1 (PCR) Not detected, Parainfluenza 2 (PCR) Not detected, Parainfluenza 3 (PCR) Not detected, Parainfluenza 4 (PCR) Not detected, RSV (PCR) Not detected, Entero/Rhino (PCR) Not detected 01/10/25 11:52: Urine Color Yellow, Urine Appearance Clear, Urine pH 5.5, Ur Specific [place] 1.015, Urine Protein Trace, Urine Glucose (UA) 3+, Urine Ketones Trace, Urine Blood Trace-l, Urine Nitrate Negative, Urine Bilirubin Negative, Urine Urobilinogen 0.2, Ur Leukocyte Esterase Negative, Urine RBC Occasional, Urine WBC Occasional, Ur Squamous Epith Cells Occasional, Urine Bacteria Trace 01/10/25 13:26: Troponin I 0.02 01/10/25 14:41: Stl C. cayetanensis PCR Not detected, Stool Rotavirus (PCR) Not detected, Stl Adenov F 40/41 PCR Not detected, Stool Astrovirus (PCR) Not detected, Stool Campylobacter PCR Not detected, Stl C.difficile Tox PCR Detected A, Stool Cryptosporidium PCR Not detected, Stl E.coli Shiga Tox PCR Not detected, Stool E coli O157 PCR Not detected, Stl Enterotoxigenic E PCR Not detected, Stool EPEC (PCR) Not detected, Stool EAEC (PCR) Not detected, Stl E. histolytica PCR Not detected, Stool Giardia Lamblia PCR Not detected, Stool Salmonella PCR Not detected, Stool Sapovirus (PCR) Not detected, Stl P. shigelloides PCR Not detected, Stl Shigella/EIEC PCR Not detected, St Y.enterocolitica PCR Not detected, Stool Vibrio (PCR) Not detected, Stl Vibrio cholerae PCR Not detected, Stl Norovirus GI/GII PCR Not detected 01/10/25 16:30: Troponin I < 0.01 01/11/25 06:06: WBC 9.1, RBC 3.19 L, Hgb 10.2 L, Hct 30.8 L, MCV 96.6, MCH 32.0 H, MCHC 33.1, RDW 14.0, Plt Count 221, MPV 9.7, Neut % (Auto) 69.1, Lymph % (Auto) 12.5, [place] % (Auto) 15.8 H, Eos % (Auto) 1.5, Baso % (Auto) 0.4, Neut # (Auto) 6.3, Lymph # (Auto) 1.1, [place] # (Auto) 1.4 H, Eos # (Auto) 0.1, Baso # (Auto) 0.0, Sodium 141, Potassium 4.2, Chloride 102, Carbon Dioxide 23, Anion Gap 20.2 H, BUN 22 H, Creatinine 1.60 H, Estimated Creat Clear 45, Estimated GFR 32 L, Est GFR ( Amer) 38 L, Glucose 135 H D, Calcium 9.0, Total Bilirubin 0.8, AST 53 H D, ALT 25, Alkaline Phosphatase 96, Total Protein 6.9, Albumin 3.7, Globulin 3.2, Albumin/Globulin Ratio 1.2 I & O for Labs for Last 24 Hours: Intake & Output 01/08/25 01/09/25 01/10/25 01/11/25 11:59 11:59 11:59 11:59 Intake Total 1000 / 1000 990 / 990 Output Total 0 / 0 Balance 1000 / 1000 990 / 990 Weight 185 lb 204 lb 6.4 oz Constitutional: Present no acute distress Respiratory: Present CTA bilaterally Cardiac: Present Reg Rate and Rhythm GI: Present soft, distention and tenderness (diffuse) Skin: Present intact Neuro: Present alert, awake and oriented x 3 Assessment and Plan *Assessment and plan (1) Clostridioides difficile diarrhea: Status: Acute Category: Medical Code(s): A04.72 - Enterocolitis due to Clostridium difficile, not specified as recurrent (2) Generalized weakness: Status: Acute Category: Medical Code(s): R53.1 - Weakness (3) KLAUS (acute kidney injury): Status: Acute Category: Medical Code(s): N17.9 - Acute kidney failure, unspecified (4) HTN (hypertension): Status: Chronic Qualifiers: Hypertension type: essential hypertension Qualified Code(s): I10 - Essential (primary) hypertension Category: Medical Code(s): I10 - Essential (primary) hypertension (5) Diabetes mellitus: Status: Chronic Qualifiers: Diabetes mellitus complication status: with other specified complication Diabetes mellitus correction insulin use: unspecified correction insulin use status Diabetes mellitus type: type 2 Qualified Code(s): E11.69 - Type 2 diabetes mellitus with other specified complication Category: Medical Code(s): E11.9 - Type 2 diabetes mellitus without complications Plan Renal function is slightly worse today. Diarrhea panel is positive for C. difficile. The patient has been started on p.o. Vancomycin. Will restart carvedilol as blood pressure is elevated and will discuss further care with Dr. Gunn. Dr. Gunn entry - Saw patient, agree with above note. Add Lovenox for DVT prophylaxis.
--- NOTE | 2025-01-11 09:11 | [facility].PHAAMS2 ---
- Antimicrobial Stewardship Review culture & sensitivity review Stewardship interventions: culture & sensitivity review, reviewed - no change Comments: PT HAS C DIFF, ON ORAL VANCOMYCIN
[2025-01-11] MEDS: LACTATED RINGERS 1000ML 1,000 ML 50 ML IV ×2 (09:25→20:42)
[2025-01-11] MEDS: ONDANSETRON 4MG/2ML VIAL 4 MG IV (09:27)
[2025-01-11] MEDS: HYDRALAZINE HCL 25MG TABLET 25 MG PO ×2 (09:27→20:41)
[2025-01-11] MEDS: PANTOPRAZOLE 40MG TABLET 40 MG PO ×2 (09:27→20:41)
[2025-01-11] MEDS: CARVEDILOL 25MG TABLET 25 MG PO ×2 (09:27→20:41)
[2025-01-11] MEDS: PIOGLITAZONE 30MG TAB 30 MG PO (09:27)
[2025-01-11] MEDS: VANCOMYCIN HCL 50MG/ML 150ML KIT 125 MG PO ×4 (09:28→20:43)
[2025-01-11] MEDS: TRINTELLIX 20 MG 1 EACH PO (10:07)
[2025-01-11] MEDS: TRAMADOL 50MG TABLET 50 MG PO (10:43)
--- NOTE | 2025-01-11 11:40 | HMH.PTEV ---
Physical Therapy Evaluation Rehab PT IP Evaluation Start: 01/11/25 08:24 Freq: ONCE Status: Active Protocol: Document 01/11/25 11:29 ALLY (Rec: 01/11/25 11:40 ALLY [id number]) Subjective/History History History Per H&P: 74-year-old female presents the emergency department via EMS for generalized weakness that has been worsening since Wednesday according to EMS and patient, for some possible intermittent confusion, initially called out for a lift assist , of the patient called out, patient was found down, unsure of fall, patient is GCS of 14 some confusion about specific date and who the president is, patient admits to generalized weakness and malaise, denies any fever or chills, denies any chest pain admits to shortness of breath since Wednesday as well as a cough, it is nonproductive, denies any overt abdominal pain, denies any diarrhea, denies any nausea vomiting, no urinary symptomatology. At the end of my assessment is now available at the bedside to provide some additional history, patient's states that she normally does not walk with assistance has been utilizing the cane and walker over the last several days, also noted some diarrhea, that was nonbloody over the last several days, other past medical history consistent with overactive bladder recent bladder Botox , according to patient family bedside, implantable spinal cord stimulator,, carotid artery disease, status post embolization of cerebral aneurysms, history of degenerative disc disease, osteoarthritis, anemia, hypertension, T2DM. Initial triage vitals notable for fever of 101 ?F, soft low blood pressure, not initially meeting sepsis criteria. She denies any history of tobacco abuse, admits to former alcohol abuse, denies any other drug use. (above as per ER physician) Subjective Subjective Pt and provided hx. Pt lives in a 2-story home with her . Pt normally able to ambulate without AD use. Pt reports increased weakness and has not been able to ambulate for ~3 days. [facility] How much help from another person do you currently need... Turning from your A little back to your side while in a flat bed without using bedrails? Moving from lying on A little back to sitting on the side of a flat bed without using bedrails? Moving to and from a A little bed to a chair ( including a wheelchair)? Standing up from a A little chair using your arms? (e.g., wheelchair, bedside chair) Walking in hospital A little room? Climbing 3-5 steps A little with a railing? Mobility Score 18 Mobility Level [facility] Mobility 6 Walk 10 steps or more Mobility Calculator Rehab PT IP Eval Objective Appearance Patient Behavior Appropriate,Cooperative Patient Orientation Person,Place Difficulty following none instructions Speech Pattern Clear Ambulation Patient Able to No Ambulate Balance Ability to Arise Able, uses arms to help Sitting Balance Steady, safe Standing Balance Steady, wide stance Dynamic Sitting Good Balance Ability Dynamic Standing Fair Balance Ability Transfers Bed Transfer Ability Minimal x 1 (25% assist) Sit to Stand Bed Minimal x 1 (25% assist) Transfer Ability Rehab PT IP prob,goals,plan Problems Date of Evaluation: 01/11/25 PT IP Problems Bed Mobility,Transfers,Gait,Balance,Self care,Safety Rehab Potential Rehab Potential Good Plan PT Intervention Plan Bed Mobility,Transfers,Gait,Balance,Self care,Safety, Therapeutic Exercise Other Intervention 1-2 times Plan PT Plan Frequency Daily Duration LOS Discharge Goals Bed Transfer Ability Contact Guard/Hand Hold Sit to Stand Chair Contact Guard/Hand Hold Transfer Ability Ambulation Assistive Rolling Walker Device Ambulation Distance 15 (feet) Discharge Plan PT Discharge Plan Initial physical therapy evaluation performed. Patient presents below baseline at this time in functional mobility, transfers, and strength. Pt not safe to return home at this time d/t current level of functional mobility. PT recommending inpatient rehabilitation facility (IRF) placement upon d/c from [facility]. Pt would benefit from skilled PT while at [facility] to prevent further functional decline and maximize safety with mobility. Eval Complexity Eval Charge Codes 98804 - Moderate Complexity PHYSICIAN CERTIFICATION: I certify the specified therapy services for Rosa Wray are required, authorized, and reviewed every 30 days.
--- NOTE | 2025-01-11 15:14 | HMH.OTEV ---
OT Evaluation Rehab OT IP Evaluation Start: 01/11/25 08:24 Freq: ONCE Status: Active Protocol: Document 01/11/25 15:08 GWEN (Rec: 01/11/25 15:14 GWEN [id number]) Rehab OT IP Assessment Subjective History 74-year-old female presents the emergency department via EMS for generalized weakness that has been worsening since Wednesday according to EMS and patient, for some possible intermittent confusion, initially called out for a lift assist , of the patient called out, patient was found down, unsure of fall, patient is GCS of 14 some confusion about specific date and who the president is, patient admits to generalized weakness and malaise, denies any fever or chills, denies any chest pain admits to shortness of breath since Wednesday as well as a cough, it is nonproductive, denies any overt abdominal pain, denies any diarrhea, denies any nausea vomiting, no urinary symptomatology. At the end of my assessment is now available at the bedside to provide some additional history, patient's states that she normally does not walk with assistance has been utilizing the cane and walker over the last several days, also noted some diarrhea, that was nonbloody over the last several days, other past medical history consistent with overactive bladder recent bladder Botox , according to patient family bedside, implantable spinal cord stimulator,, carotid artery disease, status post embolization of cerebral aneurysms, history of degenerative disc disease, osteoarthritis, anemia, hypertension, T2DM. Initial triage vitals notable for fever of 101 ?F, soft low blood pressure, not initially meeting sepsis criteria. She denies any history of tobacco abuse, admits to former alcohol abuse, denies any other drug use. (above as per ER physician). Patient lives at home with . Ramp to enter. 1 story home. Uses a rollator within home and straight cane outside of home. Independent with ADLs and fx'l mobility at home. assist with transportation as needed. Subjective I can get up. Instructed Patient on safety awareness to complete bed mobility from supine->sit @ EOB requiring Min A. Instructed Patient on safety awareness to complete EOB- >stand with usage of RW. Patient became incontinent of bladder mgt tr during standing position. Assisted Patient to restroom with usage of RW with CGA. Patient required Min A for UB lissa and Mod A For LB baldevg. CGA for transfers with usage of RW. Assisted Patient back to recliner chair at end of session with needs met. Objective Patient Orientation Person,Place,Name,Age Right Upper WFL Extremity Gross ROM Bed Mobility bed mobility - supine/sit Assist Level Moderate x 1 (50% assist) Transfer Training Sit/Stand Transfer Assist Level Contact Guard/Hand Hold Chair Transfer Contact Guard/Hand Hold Ability Chair Transfer Sit to/from Ambulatory Technique Chair Transfer Rolling Walker Assistive Devices Lower Body Dressing Moderate Assistance Ability Upper Body Dressing Minimal Assistance Ability Performing Toilet Moderate Assistance Hygiene Ability Overall Commode/ Contact Guard Toilet Transfer Ability Commode/Toilet Sit to/from Ambulatory Transfer Technique Rehab OT IP prob,goals,plan Problems Date of Evaluation: 01/11/25 OT IP Problems Bed Mobility,Transfers,Balance,Self care,Safety Rehab Potential Rehab Potential Good Equipment Needs Assistive Devices Rolling / Wheeled Walker Plan OT intervention Plan Bed Mobility,Transfers,Balance,Self care,Safety, Therapeutic Exercise OT Plan Frequency Daily Duration LOS Discharge Goals Bed Mobility Ability Standby Assistance Sit to Stand Chair Supervision/Stand by Transfer Ability Chair Transfer Supervision/Stand by Ability Chair Transfer Sit to/from Ambulatory Technique Chair Transfer Rolling Walker Assistive Devices Lower Body Dressing Minimal Assistance Ability Upper Body Dressing Standby Assistance Ability Performing Toilet Standby Assistance Hygiene Ability Overall Commode/ Standby Assistance Toilet Transfer Ability Commode/Toilet Sit to/from Ambulatory Transfer Technique Discharge Plan OT Discharge Plan Recommend patient to return home after medical d/c. Recommend HH services. Patient to continue skilled OT IP services to address deficits and safety awareness with ADLs and fx'l mobility tasks. Eval Complexity Eval Charge Codes 09957 - Low Complexity PHYSICIAN CERTIFICATION: I certify the specified therapy services for Rosa Wray are required, authorized, and reviewed every 30 days.
--- NOTE | 2025-01-11 15:25 | SW/DCPLANNER ---
Addendum entered by Melody Calumet 01/15/25 08:40: I have updated [facility] that per Dr Gunn patient will require a transfer to a higher level of care. Addendum entered by Melody Calumet 01/12/25 13:58: [facility] is willing to accept this patient after Wednesday (qualifying stay). I have updated patient and family. CM will continue to follow up. Addendum entered by Melody Calumet 01/12/25 13:27: [facility] is currently reviewing patient information. Addendum entered by Melody Calumet 01/12/25 12:16: I spoke w/ this patient regarding the possible need of IV antibiotics and changing to inpatient status. Patient stated she would be interested in placement at [facility] if needed at discharge. Patient information will be faxed to [facility] pending placement is needed at discharge. Original Note: I spoke w/ patient regarding plans once medically stable for discharge. PT/OT evaluated patient and recommended SNF level of care. Patient and I discussed SNF level of care and the requirement of private pay due to OBS status. Patient voiced that she is not interested in private pay placement and prefers to return home w/ assistance from her . Patient is agreeable to home health services w/ no agency preference. CM will continue to follow up and set up home health services at time of discharge. Discharge date is unknown at this time.
[2025-01-11 16:00] VITALS: BP 181/84; PULSE 73; RESP 18; TEMP 37.9; O2SAT 93
--- NOTE | 2025-01-11 16:45 | PC.NURSE ---
Pt is resting in bed. States that her pain has improved. She is currently sitting up in bed. Has ambulated with walker to chair and BR. Tolerated well. Pt states she feels a chill this evening. Temp is trending up. Tylenol administered. BP is elevated. Call light within reach. Family at bedside.
[2025-01-11 18:11] LABS: Acinetobacter calcoaceticus-ba Not Detected; Bacteroides fragilis Not Detected; Candida auris Not Detected; Candida glabrata Not Detected; Enterobacterales Not Detected; Enterococcus faecalis Not Detected; Enterococcus faecium Not Detected; Klebsiella aerogenes Not Detected; Klebsiella pneumoniae grp Not Detected; Proteus spp. Not Detected; Salmonella spp. Not Detected; Serratia marcescens Not Detected; Staphylococcus epidermidis Not Detected; Staphylococcus lugdunensis Not Detected; Staphylococcus spp. Detected; Stenotrophomonas maltophilia Not Detected; Streptococcus agalactiae(GrpB) Not Detected; Streptococcus pyogenes Group A Not Detected; Streptococcus spp. Not Detected; mecA/C and MREJ (MRSA) Detected
[2025-01-11 20:00] VITALS: BP 186/73; PULSE 69; RESP 16; TEMP 37.4; O2SAT 95
[2025-01-11] MEDS: VANCOMYCIN CONSULT REQUEST 1 EACH NOTAPPLIC (20:41)
[2025-01-11] MEDS: ATORVASTATIN 10MG TABLET 10 MG PO (20:41)
[2025-01-11] MEDS: AMITRIPTYLINE 25MG TABLET 25 MG PO (20:41)
[2025-01-11] MEDS: VANCOMYCIN/WATER FOR INJ (PEG) 1.75 GM/350 ML PIGGYBACK IV (20:48)
[2025-01-12 04:00] VITALS: BP 176/64; PULSE 70; RESP 16; TEMP 37.6; O2SAT 94; BMI 35.4
[2025-01-12] MEDS: TRAMADOL 50MG TABLET 50 MG PO ×2 (06:21→20:09)
[2025-01-12] MEDS: MORPHINE 2MG/ML SYRINGE 2 MG IV ×2 (06:49→21:06)
--- NOTE | 2025-01-12 07:34 | EXP.PHA.CONS ---
Pharmacy Consult Date: 01/12/25 Time: 07:34 Referring provider: DR CHURCHILL Reason for Consult:: VANCOMYCIN DOSING CONSULT Allergies Allergy/AdvReac Type Severity Reaction Status Date / Time semaglutide (From Ozempic) AdvReac Mild Nausea Verified 10/17/24 10:27 Home Medications ?Medication ?Instructions ?Recorded ?Confirmed ?Type clonazepam 1 mg tablet (Klonopin) 1 mg PO BIDP PRN Anxiety 09/12/18 01/10/25 History empagliflozin 12.5 mg-metformin ER 2 tab PO DAILY 06/23/21 01/10/25 History 1,000 mg tablet,extended rel 24 hr (Synjardy XR) aspirin 81 mg tablet,delayed 81 mg PO DAILY 12/31/22 01/11/25 History release amitriptyline 25 mg tablet 25 mg PO HS 06/21/23 01/10/25 History pantoprazole 40 mg tablet,delayed 40 mg PO BID 06/21/23 01/10/25 History release rosuvastatin 10 mg tablet 10 mg PO HS 06/21/23 01/10/25 History vortioxetine 20 mg tablet 20 mg PO DAILY 06/21/23 01/10/25 History (Trintellix) carvedilol 25 mg tablet 25 mg PO BID 10/27/23 01/10/25 History multivitamin 1 tab PO DAILY 04/11/24 01/10/25 History finerenone 10 mg tablet (Kerendia) 10 mg PO DAILY 05/03/24 01/10/25 History saxagliptin 5 mg tablet 5 mg PO DAILY 05/03/24 01/10/25 History mirabegron 50 mg tablet,extended 50 mg PO DAILY #30 tabs 05/16/24 01/10/25 Rx release 24 hr (Myrbetriq) vonoprazan 10 mg tablet (Voquezna) 10 mg PO DAILY 05/23/24 01/10/25 History guanfacine 1 mg tablet 1 mg PO DAILY 01/10/25 01/10/25 History hydralazine 25 mg tablet 25 mg PO DAILY 01/10/25 01/10/25 History pioglitazone 30 mg tablet 30 mg PO DAILY 01/10/25 01/10/25 History vibegron 75 mg tablet (Gemtesa) 75 mg PO DAILY 01/10/25 01/10/25 History New Prescriptions to Start Prescriptions: Height: 1.65 m Weight: 96.615 kg Laboratory Results:: Laboratory Results - last 24 hr 01/10/25 10:30: A. baumannii (PCR) Not detected, Bacteroides fragilis Not detected, Trista albicans (PCR) Not detected, Trista auris (PCR) Not detected, C. glabrata (PCR) Not detected, C. krusei (PCR) Not detected, C. parapsilosis (PCR) Not detected, C. tropicalis (PCR) Not detected, Cryptococcus neoformans PCR Not detected, Enterobacterales (PCR) Not detected, Enterococc faecalis PCR Not detected, Enterococc faecium PCR Not detected, E. coli (PCR) Not detected, H. influenzae DNA Not detected, Klebsiella aerogenes (PCR) Not detected, Klebsiella oxytoca PCR Not detected, K. pneumoniae group (PCR) Not detected, List. monocytogenes PCR Not detected, N. meningitidis (PCR) Not detected, Proteus species (PCR) Not detected, Salmonella spp. (PCR) Not detected, Serratia marcescens PCR Not detected, Staphylococcus sp PCR Detected A, Staph aureus (PCR) Detected A, mecA/C & MREJ Resist Gene Detected A, mecA/C-Methicil Resis Gene Not applicable, Staph epidermidis (PCR) Not detected, Staph lugdunensis (TEM-PCR) Not detected, S. maltophilia (PCR) Not detected, Streptococcus sp PCR Not detected, S.agalactiae Grp B TABITHA Not detected, Strep pneumoniae (PCR) Not detected, S. pyogenes GrpA TABITHA Not detected, P. aeruginosa (PCR) Not detected, Dilan/B-Vanco Res Genes Not applicable, blaIMP Car res Gene PCR Not applicable, KPC-Carbap Res Gene PCR Not applicable, blaNDM Car Res Gene PCR Not applicable, OXA-48 Carbapenem Resis Gene (PCR) Not applicable, blaVIM Car Res Gene PCR Not applicable, CTX-M Gene Resistance (PCR) Not applicable, MCR-1 Resistance Gene Not applicable Medical History: Medical History (Updated 01/11/25 @ 08:33 by JORGE Zepeda) Fall Blunt head trauma Anemia Stage 3b chronic kidney disease (CKD) History of respiratory syncytial virus (RSV) infection Cough syncope Respiratory syncytial virus (RSV) Paroxysmal A-fib Accelerated junctional rhythm Abnormal electrocardiogram [ECG] [EKG] Depression History of trigger finger History of cyst of breast Word finding difficulty Sciatica SVT (supraventricular tachycardia) Abnormal EKG Dyspnea Hx of mitral valve prolapse HLD (hyperlipidemia) HTN (hypertension) Diabetes mellitus Family history of heart disease Assessment and Plan Assessment and plan all Dx Assessment and Plan for all problems:: Pharmacokinetic dosing service Objective: Age: 74 yo Serum creatinine: 1.6 mg/dL Height: 65.0 Inches Weight (kg): 96.615 Diagnosis: BACTEREMIA Assessment: IBW (kg): 57.00 Dosing wt(kg): 96.615 Estimated Creatinine clearance (ml/min): 27.8 CRCL method: Cockcroft and Gault using ibw(default). Drug selected: Vancomycin Loading dose (mg): 1750 MG Vd (liters): 67.6 (factor used: 0.7 L/kg) Xu (hr-1): 0.027 Half life (hrs): 25.67 CLvanco=?? 1.825 L/hr Recommended dose: 1500 mg Interval: 36 hrs Infusion time (hrs): 2.0 Predicted peak (mcg/mL): 34.7 Predicted trough (mcg/mL): 13.86 Total body weight is being used for vancomycin dosing. Recommendations: Give Vancomycin 1500 mg q 36 hrs with an expected Cpeak of 34.7 mcg/ml and an expected Ctrough of 13.86 mcg/ml TO START 01/13/25 AT 09:00, PATIENT RECIEVED ONE TIME LOADING DOSE OF VANCOMYCIN 1750 MG 01/11/25 AT 20:48. AUC 0-24 /SADA Data: SADA 0.5 mcg/mL:?? AUC/SADA:? 1095.9 SADA 1.0 mcg/mL:?? AUC/SADA:? 547.9 --------- SADA 1.5 mcg/mL:?? AUC/SADA:? 365.3 SADA 2.0 mcg/mL:?? AUC/SADA:? 274.0 Thank you for the consult
[2025-01-12 08:00] VITALS: BP 199/77; PULSE 71; RESP 18; TEMP 37.7; O2SAT 94
--- NOTE | 2025-01-12 08:39 | EXP.ACUTE.PN ---
Subjective *Date: 01/12/25 *Time: 09:00 Interval history: Patient states she is doing better this time. She has not had any further episodes of diarrhea but she still has abdominal cramping. She has been able to eat. Medical Exam Vital signs and Labs for Last 24 Hours: Vital Signs Temp Pulse Resp BP Pulse Ox O2 Del Method 01/12/25 06:42 Room Air 01/12/25 05:00 Room Air 01/12/25 04:00 99.6 F 70 16 176/64 H 94 L Room Air 01/12/25 03:00 Room Air 01/12/25 01:00 Room Air 01/11/25 23:00 Room Air 01/11/25 21:00 Room Air 01/11/25 20:00 Room Air 01/11/25 20:00 99.4 F 69 16 186/73 H 95 Room Air 01/11/25 18:47 Room Air 01/11/25 16:44 Room Air 01/11/25 16:00 100.3 F H 73 18 181/84 H 93 L Room Air 01/11/25 15:00 Room Air 01/11/25 13:00 Room Air 01/11/25 11:00 Room Air 01/11/25 08:56 Room Air Intake and Output 01/11/25 01/12/25 01/12/25 19:59 03:59 11:59 Intake Total 780 / 1694.167 914.167 / 1694.167 Output Total 0 / 850 550 / 850 300 / 850 Balance 780 / 844.167 364.167 / 844.167 -300 / 844.167 Intake: Intake, Oral Amount 780 / 780 Intake, Total IV Amount 914.167 / 914.167 Lactated Ringers 1000ML 1,000 564.167 / 564.167 ml @ 50 mls/hr IV .Q20H [facility] Rx# :[id number] Vancomycin/Water For Inj (Peg) 350 / 350 1.75 gm In 350 ml @ 175 mls/hr IV ONCE ONE Rx#:[id number] Output: Output, Urine Amount 0 / 850 550 / 850 300 / 850 Other: Number of Unmeasured Voids 1 0 0 Weight 213 lb Patient Weight 01/12/25 11:59 Weight 213 lb Laboratory Results - last 24 hr 01/10/25 10:30: A. baumannii (PCR) Not detected, Bacteroides fragilis Not detected, Trista albicans (PCR) Not detected, Trista auris (PCR) Not detected, C. glabrata (PCR) Not detected, C. krusei (PCR) Not detected, C. parapsilosis (PCR) Not detected, C. tropicalis (PCR) Not detected, Cryptococcus neoformans PCR Not detected, Enterobacterales (PCR) Not detected, Enterococc faecalis PCR Not detected, Enterococc faecium PCR Not detected, E. coli (PCR) Not detected, H. influenzae DNA Not detected, Klebsiella aerogenes (PCR) Not detected, Klebsiella oxytoca PCR Not detected, K. pneumoniae group (PCR) Not detected, List. monocytogenes PCR Not detected, N. meningitidis (PCR) Not detected, Proteus species (PCR) Not detected, Salmonella spp. (PCR) Not detected, Serratia marcescens PCR Not detected, Staphylococcus sp PCR Detected A, Staph aureus (PCR) Detected A, mecA/C & MREJ Resist Gene Detected A, mecA/C-Methicil Resis Gene Not applicable, Staph epidermidis (PCR) Not detected, Staph lugdunensis (TEM-PCR) Not detected, S. maltophilia (PCR) Not detected, Streptococcus sp PCR Not detected, S.agalactiae Grp B TABITHA Not detected, Strep pneumoniae (PCR) Not detected, S. pyogenes GrpA TABITHA Not detected, P. aeruginosa (PCR) Not detected, Dilan/B-Vanco Res Genes Not applicable, blaIMP Car res Gene PCR Not applicable, KPC-Carbap Res Gene PCR Not applicable, blaNDM Car Res Gene PCR Not applicable, OXA-48 Carbapenem Resis Gene (PCR) Not applicable, blaVIM Car Res Gene PCR Not applicable, CTX-M Gene Resistance (PCR) Not applicable, MCR-1 Resistance Gene Not applicable I & O for Labs for Last 24 Hours: Intake & Output 01/09/25 01/10/25 01/11/25 01/12/25 11:59 11:59 11:59 11:59 Intake Total 1000 / 1000 2465.833 / 2465.833 1694.167 / 1694.167 Output Total 0 / 0 850 / 850 Balance 1000 / 1000 2465.833 / 2465.833 844.167 / 844.167 Weight 185 lb 204 lb 6.4 oz 213 lb Microbiology Reports for the Last 24 Hours: Microbiology 01/10/25 10:30 Blood Blood Culture - Preliminary Gram Positive Cocci 01/10/25 12:37 Blood Blood Culture - Preliminary NO GROWTH AFTER 24 HOURS Constitutional: Present no acute distress Respiratory: Present CTA bilaterally Cardiac: Present Reg Rate and Rhythm GI: Present soft, distention and tenderness (diffuse) Skin: Present intact Neuro: Present alert, awake and oriented x 3 Assessment and Plan *Assessment and plan (1) Clostridioides difficile diarrhea: Status: Acute Category: Medical Code(s): A04.72 - Enterocolitis due to Clostridium difficile, not specified as recurrent (2) Generalized weakness: Status: Acute Category: Medical Code(s): R53.1 - Weakness (3) KLAUS (acute kidney injury): Status: Acute Category: Medical Code(s): N17.9 - Acute kidney failure, unspecified (4) HTN (hypertension): Status: Chronic Qualifiers: Hypertension type: essential hypertension Qualified Code(s): I10 - Essential (primary) hypertension Category: Medical Code(s): I10 - Essential (primary) hypertension (5) Diabetes mellitus: Status: Chronic Qualifiers: Diabetes mellitus complication status: with other specified complication Diabetes mellitus terminal carman insulin use: unspecified fci insulin use status Diabetes mellitus type: type 2 Qualified Code(s): E11.69 - Type 2 diabetes mellitus with other specified complication Category: Medical Code(s): E11.9 - Type 2 diabetes mellitus without complications (6) Bacteremia: Status: Acute Category: Medical Code(s): R78.81 - Bacteremia Plan IV fluids were increased yesterday. Will repeat labs this morning. Will continue p.o. vancomycin. Blood pressure is still elevated. Dr. Gunn entry - Saw patient, agree with above note. Vanc added due to likely MRSA bacteremia. Labs pending.
[2025-01-12 08:57] LABS: Hematocrit 30.6 % (37.0-47.0); Hemoglobin 10.3 g/dL (12.2-16.2); Immature Granulocytes % 1.1 %; Mean Corpuscular HGB Conc 33.7 g/dL (31.8-35.4); Mean Corpuscular Hemoglobin 32.2 pg (27.0-31.2); Mean Corpuscular Volume 95.6 fl (81-99); Nucleated Red Blood Cells % 0 %; Platelet Count 252 K/mm3 (142-424); Red Blood Count 3.20 M/mm3 (4.20-5.40); Red Cell Distribution Width-SD 50.3 fL; White Blood Count 8.3 K/mm3 (4.8-10.8)
[2025-01-12 09:03] LABS: Albumin Level 3.7 g/dl (3.5-5.0); Chloride 101 mmol/L (98-107); Sodium 135 mmol/L (136-145)
[2025-01-12 09:04] LABS: Potassium 4.3 mmoL/L (3.5-5.1)
[2025-01-12 09:06] LABS: Alanine Aminotransferase 26 U/L (12-78); Albumin/Globulin Ratio 1.1 (1.1-1.8); Alkaline Phosphatase 97 U/L (38-126); Anion Gap 17.3 mEq/L (5-15); Aspartate Amino Transferase 44 U/L (14-36); Bilirubin,Total 0.6 mg/dl (0.2-1.3); Blood Urea Nitrogen 22 mg/dl (7-17); Carbon Dioxide 21 mmol/L (22.0-30.0); Creatinine Clearance Estimated 54 mL/min (50-200); Creatinine,Serum 1.40 mg/dl (0.52-1.04); Estimated Glomerular Filt Rate 37 ml/min (>60); GFR (African American) 44 ML/MIN (>60); Globulin 3.4 g/dL (1.3-3.2); Total Protein,Serum 7.1 g/dl (6.3-8.2)
[2025-01-12 09:07] LABS: Calcium 8.9 mg/dl (8.4-10.2); Glucose 227 mg/dl (74-100)
[2025-01-12] MEDS: LACTATED RINGERS 1000ML 1,000 ML 50 ML IV ×2 (09:36→17:54)
[2025-01-12] MEDS: TRINTELLIX 20 MG 1 EACH PO (09:38)
[2025-01-12] MEDS: PIOGLITAZONE 30MG TAB 30 MG PO (09:39)
[2025-01-12] MEDS: HYDRALAZINE HCL 25MG TABLET 25 MG PO ×2 (09:39→20:10)
[2025-01-12] MEDS: PANTOPRAZOLE 40MG TABLET 40 MG PO ×2 (09:39→20:10)
[2025-01-12] MEDS: CARVEDILOL 25MG TABLET 25 MG PO ×2 (09:39→20:10)
[2025-01-12] MEDS: VANCOMYCIN HCL 50MG/ML 150ML KIT 125 MG PO ×4 (10:37→21:07)
[2025-01-12 12:00] VITALS: BP 185/72; PULSE 70; RESP 18; TEMP 37.7; O2SAT 97
[2025-01-12 14:56] VITALS: BMI 35.4
--- NOTE | 2025-01-12 15:54 | EXP.SURG.CON ---
History of Present Illness *Admission Date: 01/10/25 *Reason for visit:: Bacteremia; possible infection of spinal cord stimulator *History of present illness: This is a 74-year-old female seen in consultation from primary service for evaluation regarding possible spinal cord stimulator infection. See HPI forwarded from admission H&P below. Blood culture dated January 10, 2025 reviewed. Gram stain results show gram-positive cocci in clusters. PCR results positive for MRSA. Forwarded from admission H&P: 74-year-old female presents the emergency department via EMS for generalized weakness that has been worsening since Wednesday according to EMS and patient, for some possible intermittent confusion, initially called out for a lift assist , of the patient called out, patient was found down, unsure of fall, patient is GCS of 14 some confusion about specific date and who the president is, patient admits to generalized weakness and malaise, denies any fever or chills, denies any chest pain admits to shortness of breath since Wednesday as well as a cough, it is nonproductive, denies any overt abdominal pain, denies any diarrhea, denies any nausea vomiting, no urinary symptomatology. At the end of my assessment is now available at the bedside to provide some additional history, patient's states that she normally does not walk with assistance has been utilizing the cane and walker over the last several days, also noted some diarrhea, that was nonbloody over the last several days, other past medical history consistent with overactive bladder recent bladder Botox , according to patient family bedside, implantable spinal cord stimulator,, carotid artery disease, status post embolization of cerebral aneurysms, history of degenerative disc disease, osteoarthritis, anemia, hypertension, T2DM. Initial triage vitals notable for fever of 101 ?F, soft low blood pressure, not initially meeting sepsis criteria. She denies any history of tobacco abuse, admits to former alcohol abuse, denies any other drug use. (above as per ER physician) [facility] Disclaimer: The information contained in this section may have been updated after the patient was seen, as this information can be updated by other users. Medical History Fall Blunt head trauma Anemia Stage 3b chronic kidney disease (CKD) History of respiratory syncytial virus (RSV) infection Cough syncope Respiratory syncytial virus (RSV) Paroxysmal A-fib Accelerated junctional rhythm Abnormal electrocardiogram [ECG] [EKG] Depression History of trigger finger History of cyst of breast Word finding difficulty Sciatica SVT (supraventricular tachycardia) Abnormal EKG Dyspnea Hx of mitral valve prolapse HLD (hyperlipidemia) HTN (hypertension) Diabetes mellitus Family history of heart disease Surgical History History of knee replacement History of colonoscopy History of esophagogastroduodenoscopy (EGD) History of surgery History of carpal tunnel release History of hernia repair History of biopsy of temporal artery History of cholecystectomy Family History Family history of cardiac disorder Social History Smoking Status: Never smoker alcohol intake: never substance use type: denies use current occupational status: retired Travel in the last 8 weeks?: None household members: spouse and children housing: house caffeine: Yes Have you lived/traveled outside US in past 30 days?: No Contact w/someone who lives/traveled outside US past 30 days?: No Exposure to someone with infectious disease in past 14 days?: No Do you have a fever (greater than 100.4 F or 38 C)?: No Have you tested positive for COVID-19?: No Exposed to someone with COVID-19 in past 14 days?: No Do you have a sore throat?: No Do you have a cough?: No Do you have any weakness?: No Do you have any diarrhea?: No Are you experiencing any unusual bleeding?: No Do you have any muscle aches/pain?: No Do you have any abdominal pain?: No Are you experiencing loss of taste or smell?: No Review of Systems Review of Systems Review of systems:: pertinent systems reviewed and negative unless documented below Constitutional Constitutional: Denies headache(s) and Reports weakness ENT Ears, Nose, Mouth, and Throat: Denies headache(s) and Denies vertigo *Neurologic Neurologic: Denies headache(s), Denies vertigo and Reports weakness Meds Home Medications and Allergies Home Medications ?Medication ?Instructions ?Recorded ?Confirmed ?Type clonazepam 1 mg tablet (Klonopin) 1 mg PO BIDP PRN Anxiety 09/12/18 01/10/25 History empagliflozin 12.5 mg-metformin ER 2 tab PO DAILY 06/23/21 01/10/25 History 1,000 mg tablet,extended rel 24 hr (Synjardy XR) aspirin 81 mg tablet,delayed 81 mg PO DAILY 12/31/22 01/11/25 History release amitriptyline 25 mg tablet 25 mg PO HS 06/21/23 01/10/25 History pantoprazole 40 mg tablet,delayed 40 mg PO BID 06/21/23 01/10/25 History release rosuvastatin 10 mg tablet 10 mg PO HS 06/21/23 01/10/25 History vortioxetine 20 mg tablet 20 mg PO DAILY 06/21/23 01/10/25 History (Trintellix) carvedilol 25 mg tablet 25 mg PO BID 10/27/23 01/10/25 History multivitamin 1 tab PO DAILY 04/11/24 01/10/25 History finerenone 10 mg tablet (Kerendia) 10 mg PO DAILY 05/03/24 01/10/25 History saxagliptin 5 mg tablet 5 mg PO DAILY 05/03/24 01/10/25 History mirabegron 50 mg tablet,extended 50 mg PO DAILY #30 tabs 05/16/24 01/10/25 Rx release 24 hr (Myrbetriq) vonoprazan 10 mg tablet (Voquezna) 10 mg PO DAILY 05/23/24 01/10/25 History guanfacine 1 mg tablet 1 mg PO DAILY 01/10/25 01/10/25 History hydralazine 25 mg tablet 25 mg PO DAILY 01/10/25 01/10/25 History pioglitazone 30 mg tablet 30 mg PO DAILY 01/10/25 01/10/25 History vibegron 75 mg tablet (Gemtesa) 75 mg PO DAILY 01/10/25 01/10/25 History New Prescriptions to Start Prescriptions: Allergies Allergy/AdvReac Type Severity Reaction Status Date / Time semaglutide (From Ozempic) AdvReac Mild Nausea Verified 10/17/24 10:27 Exam (Inpt) Vital signs and Labs for Last 24 Hours: Temp Pulse Resp BP Pulse Ox O2 Del Method 99.9 F H 70 18 185/72 H 97 Room Air 01/12/25 12:00 01/12/25 12:00 01/12/25 12:00 01/12/25 12:00 01/12/25 12:00 01/12/25 12:00 Laboratory Results - last 24 hr 01/10/25 10:30: A. baumannii (PCR) Not detected, Bacteroides fragilis Not detected, Trista albicans (PCR) Not detected, Trista auris (PCR) Not detected, C. glabrata (PCR) Not detected, C. krusei (PCR) Not detected, C. parapsilosis (PCR) Not detected, C. tropicalis (PCR) Not detected, Cryptococcus neoformans PCR Not detected, Enterobacterales (PCR) Not detected, Enterococc faecalis PCR Not detected, Enterococc faecium PCR Not detected, E. coli (PCR) Not detected, H. influenzae DNA Not detected, Klebsiella aerogenes (PCR) Not detected, Klebsiella oxytoca PCR Not detected, K. pneumoniae group (PCR) Not detected, List. monocytogenes PCR Not detected, N. meningitidis (PCR) Not detected, Proteus species (PCR) Not detected, Salmonella spp. (PCR) Not detected, Serratia marcescens PCR Not detected, Staphylococcus sp PCR Detected A, Staph aureus (PCR) Detected A, mecA/C & MREJ Resist Gene Detected A, mecA/C-Methicil Resis Gene Not applicable, Staph epidermidis (PCR) Not detected, Staph lugdunensis (TEM-PCR) Not detected, S. maltophilia (PCR) Not detected, Streptococcus sp PCR Not detected, S.agalactiae Grp B TABITHA Not detected, Strep pneumoniae (PCR) Not detected, S. pyogenes GrpA TABITHA Not detected, P. aeruginosa (PCR) Not detected, Dilan/B-Vanco Res Genes Not applicable, blaIMP Car res Gene PCR Not applicable, KPC-Carbap Res Gene PCR Not applicable, blaNDM Car Res Gene PCR Not applicable, OXA-48 Carbapenem Resis Gene (PCR) Not applicable, blaVIM Car Res Gene PCR Not applicable, CTX-M Gene Resistance (PCR) Not applicable, MCR-1 Resistance Gene Not applicable 01/12/25 08:50: WBC 8.3, RBC 3.20 L, Hgb 10.3 L, Hct 30.6 L, MCV 95.6, MCH 32.2 H, MCHC 33.7, RDW 14.2, Plt Count 252, MPV 9.5, Neut % (Auto) 72.3, Lymph % (Auto) 10.3, [place] % (Auto) 12.0 H, Eos % (Auto) 3.9, Baso % (Auto) 0.4, Neut # (Auto) 6.0, Lymph # (Auto) 0.9, [place] # (Auto) 1.0, Eos # (Auto) 0.3, Baso # (Auto) 0.0, Sodium 135 L, Potassium 4.3, Chloride 101, Carbon Dioxide 21 L, Anion Gap 17.3 H, BUN 22 H, Creatinine 1.40 H, Estimated Creat Clear 54, Estimated GFR 37 L, Est GFR ( Amer) 44 L, Glucose 227 H, Calcium 8.9, Total Bilirubin 0.6, AST 44 H, ALT 26, Alkaline Phosphatase 97, Total Protein 7.1, Albumin 3.7, Globulin 3.4 H, Albumin/Globulin Ratio 1.1 I & O for Labs for Last 24 Hours: Intake & Output 01/10/25 01/11/25 01/12/25 01/13/25 11:59 11:59 11:59 11:59 Intake Total 1000 / 1000 2465.833 / 2465.833 2699.167 / 2699.167 Output Total 0 / 0 850 / 1050 200 / 200 Balance 1000 / 1000 2465.833 / 2465.833 1849.167 / 1649.167 -200 / -200 Weight 185 lb 204 lb 6.4 oz 213 lb 213 lb Microbiology Reports for the Last 24 Hours: Microbiology 01/10/25 12:37 Blood Blood Culture - Preliminary NO GROWTH AFTER 48 HOURS 01/10/25 10:30 Blood Blood Culture - Preliminary Gram Positive Cocci Constitutional: no acute distress Respiratory: Absent respiratory distress Cardiac: Absent Tachycardia Comment:: Right lower back incision with concomitant focal cellulitic change, warmth, and fairly severe tenderness to palpation Results Labs 01/12/25 08:50 01/12/25 08:50 Labs: Laboratory Results - last 24 hr 01/10/25 10:30: A. baumannii (PCR) Not detected, Bacteroides fragilis Not detected, Trista albicans (PCR) Not detected, Trista auris (PCR) Not detected, C. glabrata (PCR) Not detected, C. krusei (PCR) Not detected, C. parapsilosis (PCR) Not detected, C. tropicalis (PCR) Not detected, Cryptococcus neoformans PCR Not detected, Enterobacterales (PCR) Not detected, Enterococc faecalis PCR Not detected, Enterococc faecium PCR Not detected, E. coli (PCR) Not detected, H. influenzae DNA Not detected, Klebsiella aerogenes (PCR) Not detected, Klebsiella oxytoca PCR Not detected, K. pneumoniae group (PCR) Not detected, List. monocytogenes PCR Not detected, N. meningitidis (PCR) Not detected, Proteus species (PCR) Not detected, Salmonella spp. (PCR) Not detected, Serratia marcescens PCR Not detected, Staphylococcus sp PCR Detected A, Staph aureus (PCR) Detected A, mecA/C & MREJ Resist Gene Detected A, mecA/C-Methicil Resis Gene Not applicable, Staph epidermidis (PCR) Not detected, Staph lugdunensis (TEM-PCR) Not detected, S. maltophilia (PCR) Not detected, Streptococcus sp PCR Not detected, S.agalactiae Grp B TABITHA Not detected, Strep pneumoniae (PCR) Not detected, S. pyogenes GrpA TABITHA Not detected, P. aeruginosa (PCR) Not detected, Dilan/B-Vanco Res Genes Not applicable, blaIMP Car res Gene PCR Not applicable, KPC-Carbap Res Gene PCR Not applicable, blaNDM Car Res Gene PCR Not applicable, OXA-48 Carbapenem Resis Gene (PCR) Not applicable, blaVIM Car Res Gene PCR Not applicable, CTX-M Gene Resistance (PCR) Not applicable, MCR-1 Resistance Gene Not applicable 01/12/25 08:50: WBC 8.3, RBC 3.20 L, Hgb 10.3 L, Hct 30.6 L, MCV 95.6, MCH 32.2 H, MCHC 33.7, RDW 14.2, Plt Count 252, MPV 9.5, Neut % (Auto) 72.3, Lymph % (Auto) 10.3, Ward % (Auto) 12.0 H, Eos % (Auto) 3.9, Baso % (Auto) 0.4, Neut # (Auto) 6.0, Lymph # (Auto) 0.9, Ward # (Auto) 1.0, Eos # (Auto) 0.3, Baso # (Auto) 0.0, Sodium 135 L, Potassium 4.3, Chloride 101, Carbon Dioxide 21 L, Anion Gap 17.3 H, BUN 22 H, Creatinine 1.40 H, Estimated Creat Clear 54, Estimated GFR 37 L, Est GFR ( Amer) 44 L, Glucose 227 H, Calcium 8.9, Total Bilirubin 0.6, AST 44 H, ALT 26, Alkaline Phosphatase 97, Total Protein 7.1, Albumin 3.7, Globulin 3.4 H, Albumin/Globulin Ratio 1.1 Assessment and Plan *Assessment and plan (1) Bacteremia: Status: Acute Category: Medical Code(s): R78.81 - Bacteremia Plan: Seemingly, the most likely source is the patient's spinal cord stimulator that was recently placed at an outside facility. Pain management services at this facility are currently unavailable for consultation. I recommend transfer to a tertiary facility capable of evaluation, management, and possible removal of her device.
[2025-01-12 16:00] VITALS: BP 178/65; PULSE 77; RESP 18; TEMP 37.9; O2SAT 94
[2025-01-12] MEDS: ACETAMINOPHEN 325MG TAB 650 MG PO (16:23)
--- NOTE | 2025-01-12 18:24 | PC.NURSE ---
patient ambulated to the bathroom with assistance, an area on patients right lower back (surrounding 2 surgical scars from previous nerve stimulator placement) was noted to be erythemous, warm to the touch and tender when palpated. Nurse Practitioner Bailey was notified and passed the information along to Dr. Gunn. General surgery consult was ordered and transfer was recommended. Dr. Gunn assessed patient and updated patient/family on plan of care. Patient denies pain at this time, pictures of erythemous area to lower back uploaded.
--- NOTE | 2025-01-12 18:30 | PC.WOUNDNOTE ---
redness/swelling noted to right lower back
[2025-01-12 19:59] VITALS: BP 178/78; PULSE 70; RESP 16; TEMP 37; O2SAT 94
[2025-01-12] MEDS: AMITRIPTYLINE 25MG TABLET 25 MG PO (20:09)
[2025-01-12] MEDS: ATORVASTATIN 10MG TABLET 10 MG PO (20:10)
[2025-01-12] MEDS: HYDROMORPHONE 0.5 MG/0.5 ML 1 MG IV (22:30)
[2025-01-13 04:00] VITALS: BP 153/74; PULSE 71; RESP 16; TEMP 36.9; O2SAT 96; BMI 36.9
[2025-01-13] MEDS: LACTATED RINGERS 1000ML 1,000 ML 50 ML IV ×2 (04:18→16:54)
[2025-01-13 08:00] VITALS: BP 172/67; PULSE 69; RESP 18; TEMP 37
--- NOTE | 2025-01-13 08:28 | CT_ITS ---
PROCEDURE INFORMATION: Exam: CT Lumbar Spine With Contrast Exam date and time: 01/13/2025 9:17 AM Age: 74 years old Clinical indication: Other: Eval for epidural abscess/scs infection TECHNIQUE: Imaging protocol: Computed tomography of the lumbar spine with contrast. Radiation optimization: All CT scans at this facility use at least one of these dose optimization techniques: automated exposure control; mA and/or kV adjustment per patient size (includes targeted exams where dose is matched to clinical indication); or iterative reconstruction. Contrast material: ISOVUE; Contrast volume: 75 ml; Contrast route: IV; COMPARISON: CT LUMBAR SPINE WO CON 06/21/2023 1:33 AM FINDINGS: Tubes, catheters and devices: There is a thoracic spinal cord stimulator leads entering the spinal canal at L1-L2 level. Bones/joints: There is normal alignment of the lumbar spine. There are kyphoplasty changes in L1 vertebra with 10% loss of height and 5 mm retropulsion into spinal canal. The other vertebral body heights are maintained. There is posterior disc osteophyte at L2-L3 and L3-L4 and L4-L5 levels. There is bony spinal canal narrowing at L4-L5 and L5-S1 levels bilaterally. Kidneys and ureters: There is mild hydronephrosis of bilateral kidneys. Vasculature: There are atherosclerotic changes in the abdominal aorta. Soft tissues: There is edema in the subcutaneous soft tissues in the lumbar region. IMPRESSION: 1. Degenerative changes in the lumbar spine. There is a dorsal spinal cord stimulator lead in the lower thoracic region. 2. There is extensive fat stranding in the subcutaneous tissues in the lumbar region. No discrete fluid collection is identified, within limits of study. 3. Evaluation of the spinal canal for epidural abscess is limited by the technique. Consider MRI lumbar spine if feasible. 4. Bilateral mild hydronephrosis.
--- NOTE | 2025-01-13 08:35 | EXP.ACUTE.PN ---
Subjective *Date: 01/13/25 *Time: 08:44 Interval history: Patient reports some right lower back pain this morning, around spinal cord stimulator site. Medical Exam Vital signs and Labs for Last 24 Hours: Vital Signs Temp Pulse Resp BP Pulse Ox O2 Del Method 01/13/25 08:00 98.6 F 69 18 172/67 H 01/13/25 07:51 Room Air 01/13/25 07:51 Room Air 01/13/25 06:12 Room Air 01/13/25 05:00 Room Air 01/13/25 04:00 98.5 F 71 16 153/74 H 96 Room Air 01/13/25 03:00 Room Air 01/13/25 01:00 Room Air 01/12/25 23:00 Room Air 01/12/25 21:00 Room Air 01/12/25 20:00 Room Air 01/12/25 19:59 98.6 F 70 16 178/78 H 94 L Room Air 01/12/25 18:20 Room Air 01/12/25 16:39 Room Air 01/12/25 16:00 100.3 F H 77 18 178/65 H 94 L Room Air 01/12/25 15:00 Room Air 01/12/25 13:00 Room Air 01/12/25 12:00 99.9 F H 70 18 185/72 H 97 Room Air 01/12/25 11:00 Room Air Intake and Output 01/12/25 01/13/25 01/13/25 23:59 07:59 15:59 Intake Total 655 / 1780 520 / 520 Output Total 100 / 1400 450 / 450 Balance 555 / 380 70 / 70 Intake: Intake, Oral Amount 240 / 720 Intake, Total IV Amount 415 / 1060 520 / 520 Lactated Ringers 1000ML 1,000 415 / 1060 520 / 520 ml @ 50 mls/hr IV .Q20H [facility] Rx# :[id number] Output: Output, Urine Amount 100 / 1400 450 / 450 Other: Number of Unmeasured Voids 1 1 Weight 221 lb 11.2 oz Patient Weight 01/13/25 23:59 Weight 221 lb 11.2 oz Laboratory Results - last 24 hr 01/12/25 08:50: WBC 8.3, RBC 3.20 L, Hgb 10.3 L, Hct 30.6 L, MCV 95.6, MCH 32.2 H, MCHC 33.7, RDW 14.2, Plt Count 252, MPV 9.5, Neut % (Auto) 72.3, Lymph % (Auto) 10.3, [place] % (Auto) 12.0 H, Eos % (Auto) 3.9, Baso % (Auto) 0.4, Neut # (Auto) 6.0, Lymph # (Auto) 0.9, [place] # (Auto) 1.0, Eos # (Auto) 0.3, Baso # (Auto) 0.0, Sodium 135 L, Potassium 4.3, Chloride 101, Carbon Dioxide 21 L, Anion Gap 17.3 H, BUN 22 H, Creatinine 1.40 H, Estimated Creat Clear 54, Estimated GFR 37 L, Est GFR ( Amer) 44 L, Glucose 227 H, Calcium 8.9, Total Bilirubin 0.6, AST 44 H, ALT 26, Alkaline Phosphatase 97, Total Protein 7.1, Albumin 3.7, Globulin 3.4 H, Albumin/Globulin Ratio 1.1 I & O for Labs for Last 24 Hours: Intake & Output 01/10/25 01/11/25 01/12/25 01/13/25 23:59 23:59 23:59 23:59 Intake Total 1460 / 1940 3700.000 / 3700.000 1780 / 1780 520 / 520 Output Total 0 / 0 0 / 250 1150 / 1400 450 / 450 Balance 1460 / 1940 3700.000 / 3450.000 630 / 380 70 / 70 Weight 203 lb 8 oz 204 lb 6.4 oz 213 lb 221 lb 11.2 oz Microbiology Reports for the Last 24 Hours: Microbiology 01/10/25 10:30 Blood Blood Culture - Final Staphylococcus aureus 01/10/25 12:37 Blood Blood Culture - Preliminary NO GROWTH AFTER 48 HOURS Constitutional: Present no acute distress Respiratory: Present CTA bilaterally Cardiac: Present Reg Rate and Rhythm GI: Present soft, distention and tenderness (diffuse) Skin: Present intact Comment:: Fairly large are of skin erythema and warmth to touch around spinal score stimulator site. Neuro: Present alert, awake and oriented x 3 Assessment and Plan *Assessment and plan (1) MRSA bacteremia: Status: Acute Category: Medical Code(s): R78.81 - Bacteremia; B95.62 - Methicillin resistant Staphylococcus aureus infection as the cause of diseases classified elsewhere (2) Cellulitis: Status: Acute Qualifiers: Laterality: right Site of cellulitis: extremity Site of cellulitis of extremity: lower extremity Qualified Code(s): L03.115 - Cellulitis of right lower limb Category: Medical Code(s): L03.90 - Cellulitis, unspecified (3) Clostridioides difficile diarrhea: Status: Acute Category: Medical Code(s): A04.72 - Enterocolitis due to Clostridium difficile, not specified as recurrent (4) Generalized weakness: Status: Acute Category: Medical Code(s): R53.1 - Weakness (5) KLAUS (acute kidney injury): Status: Acute Category: Medical Code(s): N17.9 - Acute kidney failure, unspecified (6) HTN (hypertension): Status: Chronic Qualifiers: Hypertension type: essential hypertension Qualified Code(s): I10 - Essential (primary) hypertension Category: Medical Code(s): I10 - Essential (primary) hypertension (7) Diabetes mellitus: Status: Chronic Qualifiers: Diabetes mellitus complication status: with other specified complication 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 Giovanni Morrison. Spoke to Dr. Morrison last night. He does not have any hospital privileges. He recommended imaging of the L-spine and transfer to a tertiary center. Dr. Cancino saw patient yesterday and had the same opinion. Spoke to transfer center at . Patient was accepted but has been placed on waiting list for transfer. Continue oral and IV Vanc. for now. CT of L-spine ordered.
--- NOTE | 2025-01-13 09:25 | HMH.ITSTN ---
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
[2025-01-13] MEDS: VANCOMYCIN HCL 50MG/ML 150ML KIT 125 MG PO ×4 (09:36→21:55)
[2025-01-13] MEDS: HYDRALAZINE HCL 25MG TABLET 25 MG PO ×2 (09:37→21:54)
[2025-01-13] MEDS: PIOGLITAZONE 30MG TAB 30 MG PO (09:37)
[2025-01-13] MEDS: CARVEDILOL 25MG TABLET 25 MG PO ×2 (09:37→21:54)
[2025-01-13] MEDS: TRINTELLIX 20 MG 1 EACH PO (09:38)
[2025-01-13] MEDS: PANTOPRAZOLE 40MG TABLET 40 MG PO ×2 (09:38→21:54)
[2025-01-13] MEDS: IOPAMIDOL-370 (76%);100ML BOTTLE 75 ML IV (10:26)
[2025-01-13] MEDS: SODIUM CHLORIDE 0.9% 10ML SYR (RAD ONLY) 10 ML IV (10:26)
[2025-01-13] MEDS: VANCOMYCIN/WATER FOR INJ (PEG) 1.5 GM/300 ML PIGGYBACK IV (11:05)
[2025-01-13] MEDS: TRAMADOL 50MG TABLET 50 MG PO (11:54)
[2025-01-13] MEDS: MORPHINE 2MG/ML SYRINGE 2 MG IV (12:52)
[2025-01-13] MEDS: HYDROMORPHONE 2MG/ML SYRINGE 1 MG IV ×2 (15:18→22:21)
[2025-01-13 16:00] VITALS: BP 131/50; PULSE 71; RESP 16; TEMP 37.1; O2SAT 94
--- NOTE | 2025-01-13 16:44 | EXP.SURG.PN ---
Subjective Narrative: Feeling ok today. Thinks the abx are helping her. Exam Data for Last 24 hours Vital signs and Labs for Last 24 Hours: Temp Pulse Resp BP Pulse Ox O2 Del Method 98.7 F 71 16 131/50 L 94 L Room Air 01/13/25 16:00 01/13/25 16:00 01/13/25 16:00 01/13/25 16:00 01/13/25 16:00 01/13/25 16:00 I & O for Last 24 hours: Intake & Output 01/10/25 01/11/25 01/12/25 01/13/25 23:59 23:59 23:59 23:59 Intake Total 1460 / 1940 3700.000 / 3700.000 1780 / 1780 720 / 720 Output Total 0 / 0 0 / 250 1150 / 1400 750 / 750 Balance 1460 / 1940 3700.000 / 3450.000 630 / 380 -30 / -30 Weight 203 lb 8 oz 204 lb 6.4 oz 213 lb 221 lb 11.2 oz Microbiology Reports for the Last 24 Hours: Microbiology 01/10/25 10:30 Blood Blood Culture - Final Staphylococcus aureus 01/10/25 12:37 Blood Blood Culture - Preliminary NO GROWTH AFTER 48 HOURS Constitutional Constitutional: no acute distress Routine Back/Spine/Pelvis Exam Comments: pitting edema/erythema over spinal cord stimulator in right lower back Progress Note: A&P Assessment and plan (1) MRSA bacteremia: Status: Acute (2) Cellulitis: Status: Acute Assessment and plan: Feeling better on vancomycin. Discussed case with Dr. Gunn: unfortunately, I do not have experience with the placement/removal of spinal cord stimulators, and it would not be appropriate for me to remove it. Recommend transfer to hospital with capability to address infected hardware, vs. stabilization with IV abx and early outpatient followup with pain management physician who placed spinal cord stimulator. (3) Clostridioides difficile diarrhea: Status: Acute (4) Generalized weakness: Status: Acute (5) KLAUS (acute kidney injury): Status: Acute (6) HTN (hypertension): Status: Chronic (7) Diabetes mellitus: Status: Chronic
[2025-01-13] MEDS: POLYETHYLENE GLYCOL 3350 17 GM PACKET PO (18:22)
[2025-01-13 20:00] VITALS: BP 176/77; PULSE 70; RESP 16; TEMP 37.3; O2SAT 94
[2025-01-13 21:47] LABS: Vancomycin,Trough 20.5 ug/mL (5.0-10.0)
[2025-01-13] MEDS: GUAIFENESIN/DEXTROMETHORPHAN 200MG/20MG 10ML UDC 10 ML PO (21:53)
[2025-01-13] MEDS: AMITRIPTYLINE 25MG TABLET 25 MG PO (21:54)
[2025-01-13] MEDS: ATORVASTATIN 10MG TABLET 10 MG PO (21:54)
--- NOTE | 2025-01-13 23:22 | PC.NURSE ---
[facility] called,gave update. still no bed at this time
[2025-01-14 04:00] VITALS: BP 142/60; PULSE 74; RESP 16; TEMP 36.8; O2SAT 100; BMI 36.8
[2025-01-14] MEDS: HYDROMORPHONE 2MG/ML SYRINGE 1 MG IV ×3 (05:50→17:13)
[2025-01-14 07:23] LABS: Hematocrit 27.3 % (37.0-47.0); Hemoglobin 9.3 g/dL (12.2-16.2); Immature Granulocytes % 1.4 %; Mean Corpuscular HGB Conc 34.1 g/dL (31.8-35.4); Mean Corpuscular Hemoglobin 32.6 pg (27.0-31.2); Mean Corpuscular Volume 95.8 fl (81-99); Nucleated Red Blood Cells % 0 %; Platelet Count 284 K/mm3 (142-424); Red Blood Count 2.85 M/mm3 (4.20-5.40); Red Cell Distribution Width-SD 50.7 fL; White Blood Count 6.4 K/mm3 (4.8-10.8)
[2025-01-14 07:48] VITALS: BP 164/68; PULSE 89; RESP 18; TEMP 37.2; O2SAT 96
[2025-01-14 07:48] LABS: Anion Gap 9.9 mEq/L (5-15); Blood Urea Nitrogen 19 mg/dl (7-17); Calcium 9.1 mg/dl (8.4-10.2); Carbon Dioxide 22 mmol/L (22.0-30.0); Chloride 103 mmol/L (98-107); Creatinine Clearance Estimated 71 mL/min (50-200); Creatinine,Serum 1.10 mg/dl (0.52-1.04); Estimated Glomerular Filt Rate 49 ml/min (>60); GFR (African American) 59 ML/MIN (>60); Glucose 148 mg/dl (74-100); Potassium 3.9 mmoL/L (3.5-5.1); Sodium 131 mmol/L (136-145)
--- NOTE | 2025-01-14 08:37 | EXP.PHA.CONS ---
Pharmacy Consult Date: 01/14/25 Time: 08:37 Referring provider: DR. GUNN Reason for Consult:: VANCOMYCIN RANDOM LEVEL Allergies Allergy/AdvReac Type Severity Reaction Status Date / Time semaglutide (From Ozempic) AdvReac Mild Nausea Verified 10/17/24 10:27 Home Medications ?Medication ?Instructions ?Recorded ?Confirmed ?Type clonazepam 1 mg tablet (Klonopin) 1 mg PO BIDP PRN Anxiety 09/12/18 01/10/25 History empagliflozin 12.5 mg-metformin ER 2 tab PO DAILY 06/23/21 01/10/25 History 1,000 mg tablet,extended rel 24 hr (Synjardy XR) aspirin 81 mg tablet,delayed 81 mg PO DAILY 12/31/22 01/11/25 History release amitriptyline 25 mg tablet 25 mg PO HS 06/21/23 01/10/25 History pantoprazole 40 mg tablet,delayed 40 mg PO BID 06/21/23 01/10/25 History release rosuvastatin 10 mg tablet 10 mg PO HS 06/21/23 01/10/25 History vortioxetine 20 mg tablet 20 mg PO DAILY 06/21/23 01/10/25 History (Trintellix) carvedilol 25 mg tablet 25 mg PO BID 10/27/23 01/10/25 History multivitamin 1 tab PO DAILY 04/11/24 01/10/25 History finerenone 10 mg tablet (Kerendia) 10 mg PO DAILY 05/03/24 01/10/25 History saxagliptin 5 mg tablet 5 mg PO DAILY 05/03/24 01/10/25 History mirabegron 50 mg tablet,extended 50 mg PO DAILY #30 tabs 05/16/24 01/10/25 Rx release 24 hr (Myrbetriq) vonoprazan 10 mg tablet (Voquezna) 10 mg PO DAILY 05/23/24 01/10/25 History guanfacine 1 mg tablet 1 mg PO DAILY 01/10/25 01/10/25 History hydralazine 25 mg tablet 25 mg PO DAILY 01/10/25 01/10/25 History pioglitazone 30 mg tablet 30 mg PO DAILY 01/10/25 01/10/25 History vibegron 75 mg tablet (Gemtesa) 75 mg PO DAILY 01/10/25 01/10/25 History New Prescriptions to Start Prescriptions: Height: 1.65 m Weight: 100.108 kg Laboratory Results:: Laboratory Results - last 24 hr 01/13/25 20:25: Vancomycin Trough 20.5 H 01/14/25 06:13: WBC 6.4, RBC 2.85 L, Hgb 9.3 L, Hct 27.3 L, MCV 95.8, MCH 32.6 H, MCHC 34.1, RDW 14.4, Plt Count 284, MPV 9.6, Neut % (Auto) 66.8, Lymph % (Auto) 14.5, [place] % (Auto) 11.7 H, Eos % (Auto) 5.1, Baso % (Auto) 0.5, Neut # (Auto) 4.3, Lymph # (Auto) 0.9, [place] # (Auto) 0.8, Eos # (Auto) 0.3, Baso # (Auto) 0.0, Sodium 131 L, Potassium 3.9, Chloride 103, Carbon Dioxide 22, Anion Gap 9.9, BUN 19 H, Creatinine 1.10 H D, Estimated Creat Clear 71, Estimated GFR 49 L, Est GFR ( Amer) 59 D, Glucose 148 H, Calcium 9.1 Medical History: Medical History (Updated 01/13/25 @ 08:47 by Chase Gunn MD) Fall Blunt head trauma Anemia Stage 3b chronic kidney disease (CKD) History of respiratory syncytial virus (RSV) infection Cough syncope Respiratory syncytial virus (RSV) Paroxysmal A-fib Accelerated junctional rhythm Abnormal electrocardiogram [ECG] [EKG] Depression History of trigger finger History of cyst of breast Word finding difficulty Sciatica SVT (supraventricular tachycardia) Abnormal EKG Dyspnea Hx of mitral valve prolapse HLD (hyperlipidemia) HTN (hypertension) Diabetes mellitus Family history of heart disease Assessment and Plan Assessment and plan all Dx Assessment and Plan for all problems:: BASED ON PATIENT FACTORS AND VANCOMYCIN RANDOM LEVEL OF 20.5, RECOMMEND CONTINUING CURRENT DOSE OF VANCOMYCIN AT 1,500MG EVERY 36 HOURS. WILL OBTAIN TROUGH LEVEL PRIOR TO DOSE TONIGHT AND MAKE DOSE ADJUSTMENTS APPROPRIATE. -ANA SEXTOND
--- NOTE | 2025-01-14 08:46 | EXP.ACUTE.PN ---
Subjective *Date: 01/14/25 *Time: 08:46 Interval history: Patient feels a little better today, no new issues. Medical Exam Vital signs and Labs for Last 24 Hours: Vital Signs Temp Pulse Resp BP Pulse Ox O2 Del Method 01/14/25 08:00 Room Air 01/14/25 07:48 98.9 F 89 18 164/68 H 96 Room Air 01/14/25 06:33 Room Air 01/14/25 05:00 Room Air 01/14/25 04:00 98.3 F 74 16 142/60 H 100 Room Air 01/14/25 03:00 Room Air 01/14/25 01:00 Room Air 01/13/25 23:00 Room Air 01/13/25 21:00 Room Air 01/13/25 20:00 Room Air 01/13/25 20:00 99.2 F 70 16 176/77 H 94 L Room Air 01/13/25 18:00 Room Air 01/13/25 17:00 Room Air 01/13/25 16:00 98.7 F 71 16 131/50 L 94 L Room Air 01/13/25 15:00 Room Air 01/13/25 13:00 Room Air 01/13/25 11:00 Room Air Intake and Output 01/13/25 01/14/25 01/14/25 23:59 07:59 15:59 Intake Total 3010 / 3730 Output Total 900 / 1450 200 / 200 Balance 2110 / 2280 -200 / -200 Intake: Intake, Oral Amount 500 / 700 Intake, Total IV Amount 2510 / 3030 Lactated Ringers 1000ML 1,000 630 / 1150 ml @ 100 mls/hr IV .Q10H [facility] Rx #:[id number] Vancomycin/Water For Inj (Peg) 1880 / 1880 1.5 gm In 300 ml @ 150 mls/hr IV Q36H LAURA Rx#:[id number] Output: Output, Urine Amount 900 / 1450 200 / 200 Other: Number of Unmeasured Voids 0 0 Weight 220 lb 11.2 oz 220 lb 11.2 oz Patient Weight 01/14/25 23:59 Weight 220 lb 11.2 oz Laboratory Results - last 24 hr 01/13/25 20:25: Vancomycin Trough 20.5 H 01/14/25 06:13: WBC 6.4, RBC 2.85 L, Hgb 9.3 L, Hct 27.3 L, MCV 95.8, MCH 32.6 H, MCHC 34.1, RDW 14.4, Plt Count 284, MPV 9.6, Neut % (Auto) 66.8, Lymph % (Auto) 14.5, [place] % (Auto) 11.7 H, Eos % (Auto) 5.1, Baso % (Auto) 0.5, Neut # (Auto) 4.3, Lymph # (Auto) 0.9, [place] # (Auto) 0.8, Eos # (Auto) 0.3, Baso # (Auto) 0.0, Sodium 131 L, Potassium 3.9, Chloride 103, Carbon Dioxide 22, Anion Gap 9.9, BUN 19 H, Creatinine 1.10 H D, Estimated Creat Clear 71, Estimated GFR 49 L, Est GFR ( Amer) 59 D, Glucose 148 H, Calcium 9.1 I & O for Labs for Last 24 Hours: Intake & Output 01/11/25 01/12/25 01/13/25 01/14/25 23:59 23:59 23:59 23:59 Intake Total 3700.000 / 3700.000 1780 / 1780 3730 / 3730 Output Total 0 / 250 1150 / 1400 1450 / 1450 200 / 200 Balance 3700.000 / 3450.000 630 / 380 2280 / 2280 -200 / -200 Weight 204 lb 6.4 oz 213 lb 221 lb 11.2 oz 220 lb 11.2 oz Microbiology Reports for the Last 24 Hours: Microbiology 01/10/25 10:30 Blood Blood Culture - Final Staphylococcus aureus Constitutional: Present no acute distress Respiratory: Present CTA bilaterally Cardiac: Present Reg Rate and Rhythm GI: Present soft, distention and tenderness (diffuse) Skin: Present intact Comment:: Less skin erythema and warmth to touch around spinal score stimulator site today. Neuro: Present alert, awake and oriented x 3 Assessment and Plan *Assessment and plan (1) MRSA bacteremia: Status: Acute Category: Medical Code(s): R78.81 - Bacteremia; B95.62 - Methicillin resistant Staphylococcus aureus infection as the cause of diseases classified elsewhere (2) Cellulitis: Status: Acute Qualifiers: Site of cellulitis: extremity Site of cellulitis of extremity: lower extremity Laterality: right Qualified Code(s): L03.115 - Cellulitis of right lower limb Category: Medical Code(s): L03.90 - Cellulitis, unspecified (3) Clostridioides difficile diarrhea: Status: Acute Category: Medical Code(s): A04.72 - Enterocolitis due to Clostridium difficile, not specified as recurrent (4) Generalized weakness: Status: Acute Category: Medical Code(s): R53.1 - Weakness (5) KLAUS (acute kidney injury): Status: Acute Category: Medical Code(s): N17.9 - Acute kidney failure, unspecified (6) HTN (hypertension): Status: Chronic Qualifiers: Hypertension type: essential hypertension Qualified Code(s): I10 - Essential (primary) hypertension Category: Medical Code(s): I10 - Essential (primary) hypertension (7) Diabetes mellitus: Status: Chronic Qualifiers: Diabetes mellitus type: type 2 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 Patient may need to be discharged and follow up with Dr. Morrison as an outpatient.
--- NOTE | 2025-01-14 08:50 | XR_ITS ---
PROCEDURE INFORMATION: Exam: XR Chest Exam date and time: 01/14/2025 10:07 AM Age: 74 years old Clinical indication: Device placement; Picc; Additional info: Confirm picc line placement TECHNIQUE: Imaging protocol: Radiologic exam of the chest. Views: 1 view. COMPARISON: CR XR CHEST PORTABLE 01/10/2025 11:22 AM FINDINGS: Tubes, catheters and devices: Left-sided PICC line in place. Lungs: Unremarkable. No consolidation. Pleural spaces: Unremarkable. No pleural effusion. No pneumothorax. Heart/Mediastinum: Cardiomegaly. Bones/joints: Unremarkable. IMPRESSION: Cardiomegaly. No acute process
--- NOTE | 2025-01-14 09:37 | HMH.PHAAMS2 ---
- Antimicrobial Stewardship Review reviewed - no change Stewardship interventions: reviewed - no change
--- NOTE | 2025-01-14 09:39 | HMH.PHAAMS2 ---
- Antimicrobial Stewardship Review culture & sensitivity review Stewardship interventions: culture & sensitivity review (MRSA IN BLOOD CX X1)
[2025-01-14] MEDS: HYDRALAZINE HCL 25MG TABLET 25 MG PO ×2 (10:11→20:31)
[2025-01-14] MEDS: PANTOPRAZOLE 40MG TABLET 40 MG PO ×2 (10:11→20:31)
[2025-01-14] MEDS: CARVEDILOL 25MG TABLET 25 MG PO ×2 (10:11→20:31)
[2025-01-14] MEDS: PIOGLITAZONE 30MG TAB 30 MG PO (10:11)
[2025-01-14] MEDS: POLYETHYLENE GLYCOL 3350 17 GM PACKET PO (10:12)
[2025-01-14] MEDS: TRINTELLIX 20 MG 1 EACH PO (10:12)
[2025-01-14] MEDS: VANCOMYCIN HCL 50MG/ML 150ML KIT 125 MG PO ×4 (10:12→20:30)
[2025-01-14 16:00] VITALS: BP 135/72; PULSE 89; RESP 18; TEMP 37; O2SAT 93
[2025-01-14 20:00] VITALS: BP 161/62; PULSE 74; RESP 16; TEMP 37.2; O2SAT 93
[2025-01-14] MEDS: ATORVASTATIN 10MG TABLET 10 MG PO (20:31)
[2025-01-14] MEDS: AMITRIPTYLINE 25MG TABLET 25 MG PO (20:31)
[2025-01-14] MEDS: VANCOMYCIN/WATER FOR INJ (PEG) 1.5 GM/300 ML PIGGYBACK IV (20:32)
[2025-01-14 20:49] LABS: Vancomycin,Trough 10.2 ug/mL (5.0-10.0)
[2025-01-15] MEDS: TRAMADOL 50MG TABLET 50 MG PO (02:01)
[2025-01-15] MEDS: HYDROMORPHONE 2MG/ML SYRINGE 1 MG IV ×2 (03:46→11:19)
[2025-01-15 04:00] VITALS: BP 106/63; PULSE 60; RESP 18; TEMP 36.8; O2SAT 92; BMI 35.5
[2025-01-15 08:00] VITALS: BP 157/71; PULSE 68; RESP 16; TEMP 36.6; O2SAT 96
--- NOTE | 2025-01-15 08:17 | EXP.PN ---
Subjective *Date: 01/15/25 *Time: 08:34 Interval history: Patient states she is doing okay today. She has had no further diarrhea and denies nausea and vomiting. She is eating some breakfast at present. She slept very little during the night due to back discomfort. She denies chest pain and shortness of breath. She has been out of bed and ambulated. She is voiding QS. PICC line was inserted yesterday. Exam Data for Last 24 hours Vital signs and Labs for Last 24 Hours: Temp Pulse Resp BP Pulse Ox O2 Del Method 98.3 F 60 18 106/63 L 92 L Room Air 01/15/25 04:00 01/15/25 04:00 01/15/25 04:00 01/15/25 04:00 01/15/25 04:00 01/15/25 06:25 Laboratory Results - last 24 hr 01/14/25 20:08: Vancomycin Trough 10.2 H I & O for Last 24 hours: Intake & Output 01/12/25 01/13/25 01/14/25 01/15/25 11:59 11:59 11:59 11:59 Intake Total 2699.167 / 2699.167 1295 / 1295 4210 / 4210 1460 / 1460 Output Total 850 / 850 750 / 750 1200 / 1200 1100 / 1100 Balance 1849.167 / 1849.167 545 / 545 3010 / 3010 360 / 360 Weight 213 lb 221 lb 11.2 oz 220 lb 11.2 oz 213 lb 3.2 oz Microbiology Reports for the Last 24 Hours: Microbiology 01/10/25 12:37 Blood Blood Culture - Preliminary NO GROWTH AFTER 4 DAYS Constitutional Constitutional: no acute distress Comments: Sitting up in bed eating her breakfast *Routine Respiratory Exam Respiratory: Present CTA bilaterally *Routine Cardiovascular Exam Cardiovascular: Present RRR *Routine Abdominal Exam Abdominal: Present soft and normoactive bowel sounds; Absent tenderness *Routine Extremities Exam Extremities: Present edema (Bilateral lower leg); Absent calf tenderness *Routine Neurological Exam Neurological: Present alert and oriented X3 Assessment and Plan *Assessment and plan (1) MRSA bacteremia: Status: Acute Category: Medical Code(s): R78.81 - Bacteremia; B95.62 - Methicillin resistant Staphylococcus aureus infection as the cause of diseases classified elsewhere (2) Cellulitis: Status: Acute Qualifiers: Laterality: right Site of cellulitis: extremity Site of cellulitis of extremity: lower extremity Qualified Code(s): L03.115 - Cellulitis of right lower limb Category: Medical Code(s): L03.90 - Cellulitis, unspecified (3) Clostridioides difficile diarrhea: Status: Acute Category: Medical Code(s): A04.72 - Enterocolitis due to Clostridium difficile, not specified as recurrent (4) Generalized weakness: Status: Acute Category: Medical Code(s): R53.1 - Weakness (5) KLAUS (acute kidney injury): Status: Acute Category: Medical Code(s): N17.9 - Acute kidney failure, unspecified (6) HTN (hypertension): Status: Chronic Qualifiers: Hypertension type: essential hypertension Qualified Code(s): I10 - Essential (primary) hypertension Category: Medical Code(s): I10 - Essential (primary) hypertension (7) Diabetes mellitus: Status: Chronic Qualifiers: Diabetes mellitus complication status: with other specified complication 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 Dr. Gunn entry - Saw patient, agree with above note. Still awaiting transfer for removal of SCS.
[2025-01-15] MEDS: HYDRALAZINE HCL 25MG TABLET 25 MG PO (09:01)
[2025-01-15] MEDS: PIOGLITAZONE 30MG TAB 30 MG PO (09:01)
[2025-01-15] MEDS: PANTOPRAZOLE 40MG TABLET 40 MG PO (09:02)
[2025-01-15] MEDS: CARVEDILOL 25MG TABLET 25 MG PO (09:02)
[2025-01-15] MEDS: TRINTELLIX 20 MG 1 EACH PO (09:02)
[2025-01-15] MEDS: VANCOMYCIN HCL 50MG/ML 150ML KIT 125 MG PO ×3 (09:02→17:11)
[2025-01-15] MEDS: POLYETHYLENE GLYCOL 3350 17 GM PACKET PO (09:05)
--- NOTE | 2025-01-15 09:18 | HMH.PHAAMS2 ---
- Antimicrobial Stewardship Review culture & sensitivity review Stewardship interventions: culture & sensitivity review, reviewed - no change Comments: PATIENT ON ORAL VANCOMYCIN FOR C . DIFFICILE INFECTION, IV VANCOMYCIN FOR MRSA BACTEREMIA, ONE OF TWO CULTURES POSITIVE FOR MRSA, SECOND CX REMAINS NO GROWTH. 48 hour timeout review Stewardship interventions: 48 hour timeout review, reviewed - no change Comments: AFEBRILE OVER 24 HR, PATIENT ON ORAL VANCOMYCIN FOR C . DIFFICILE INFECTION, RECOMMEND 10 DAYS OF THEREAPY. IV VANCOMYCIN FOR MRSA BACTEREMIA/CELLULITIS, ONE OF TWO CULTURES POSITIVE FOR MRSA, SECOND CX REMAINS NO GROWTH.
[2025-01-15 16:00] VITALS: BP 97/67; PULSE 66; RESP 16; TEMP 36.6; O2SAT 98
[2025-01-15 20:00] VITALS: BP 150/89; PULSE 90; RESP 18; TEMP 36.8; O2SAT 97
--- NOTE | 2025-01-15 20:14 | PC.NURSE ---
[facility] called with a bed assignment- patient going to the 9th floor tower 1 room 135 - report called to RAI Benavides at [phone] Patient notifed, patient then notified and daughter, jeremie. EMS called and will be here shortly.
--- NOTE | 2025-01-19 13:04 | P.DS_ITS ---
General Admission date:: 01/12/25 Discharge date: 01/15/25 HPI HPI HPI: 74-year-old female presents the emergency department via EMS for generalized weakness that has been worsening since Wednesday according to EMS and patient, for some possible intermittent confusion, initially called out for a lift assist , of the patient called out, patient was found down, unsure of fall, patient is GCS of 14 some confusion about specific date and who the president is, patient admits to generalized weakness and malaise, denies any fever or chills, denies any chest pain admits to shortness of breath since Wednesday as well as a cough, it is nonproductive, denies any overt abdominal pain, denies any diarrhea, denies any nausea vomiting, no urinary symptomatology. At the end of my assessment is now available at the bedside to provide some additional history, patient's states that she normally does not walk with assistance has been utilizing the cane and walker over the last several days, also noted some diarrhea, that was nonbloody over the last several days, other past medical history consistent with overactive bladder recent bladder Botox , according to patient family bedside, implantable spinal cord stimulator,, carotid artery disease, status post embolization of cerebral aneurysms, history of degenerative disc disease, osteoarthritis, anemia, hypertension, T2DM. Initial triage vitals notable for fever of 101 ?F, soft low blood pressure, not initially meeting sepsis criteria. She denies any history of tobacco abuse, admits to former alcohol abuse, denies any other drug use. (above as per ER physician) Hospital Course Hospital Course Hospital Course: The patient was started on IV fluids and a diarrhea panel was ordered. She was continued on Zosyn. Her stool panel came back showing C. difficile and she was started on oral vancomycin and the zosyn was discontinued. Her diarrhea did improve. She was restarted on some of her home medications. She continued with some abdominal cramping but was able to begin eating. Her blood cultures grew MRSA and she was started on IV vancomycin. It was noted that she had recently had a spinal cord stimulator placed and the area appeared to be getting infected. General surgery was consulted and Dr. Cancino recommended tertiary facility transfer for evaluation, management, and possible removal of her device. She did begin having some back pain around the stimulator site. Dr. Gunn spoke with Dr. Morrison who placed the stimulator. He did not have hospital privileges and recommended imaging of the lumbar spine and transfer to a tertiary center. Dr. Gunn spoke to the transfer center at and the patient was accepted but placed on a waiting list. She was continued on oral and IV vancomycin and a CT of the lumbar spine was ordered. A PICC line was placed. The lumbar spine CT did show extensive fat stranding in the subcutaneous tissues in the lumbar region but evaluation of the spinal canal for epidural abscess was limited. The patient was transferred for further evaluation and management. Exam Data for Last 24 hours Vital signs and Labs for Last 24 Hours: Temp Pulse Resp BP Pulse Ox O2 Del Method 98.2 F 90 18 150/89 H 97 Room Air 01/15/25 20:00 01/15/25 20:00 01/15/25 20:00 01/15/25 20:00 01/15/25 20:00 01/15/25 18:45 Narrative: Constitutional Constitutional: no acute distress *Routine HEENT Exam Head: Present normocephalic and atraumatic Eye: Present EOMI and PERRL ENT: Present mucous membranes dry *Routine Neck Exam Neck: Present supple and full ROM *Routine Respiratory Exam Respiratory: Present CTA bilaterally *Routine Cardiovascular Exam Cardiovascular: Present RRR *Routine Abdominal Exam Abdominal: Present soft, normoactive bowel sounds and tenderness (diffuse); Absent distended *Routine Rectal Exam Rectal:: deferred *Routine Genitalia Exam Genitalia:: deferred *Routine Extremities Exam Extremities: Absent cyanosis, clubbing or edema *Routine Skin Exam Skin: Present intact; Absent erythema *Routine Neurological Exam Neurological: Present alert and oriented X3 DS: Diagnosis Discharge Diagnosis (1) MRSA bacteremia: Status: Acute Code(s): R78.81 - Bacteremia; B95.62 - Methicillin resistant Staphylococcus aureus infection as the cause of diseases classified elsewhere (2) Cellulitis: Status: Acute Code(s): L03.90 - Cellulitis, unspecified Qualifiers: Site of cellulitis: extremity Site of cellulitis of extremity: lower extremity Laterality: right Qualified Code(s): L03.115 - Cellulitis of right lower limb (3) Clostridioides difficile diarrhea: Status: Acute Code(s): A04.72 - Enterocolitis due to Clostridium difficile, not specified as recurrent (4) Generalized weakness: Status: Acute Code(s): R53.1 - Weakness (5) KLAUS (acute kidney injury): Status: Acute Code(s): N17.9 - Acute kidney failure, unspecified (6) HTN (hypertension): Status: Chronic Code(s): I10 - Essential (primary) hypertension Qualifiers: Hypertension type: essential hypertension Qualified Code(s): I10 - Essential (primary) hypertension (7) Diabetes mellitus: Status: Chronic Code(s): E11.9 - Type 2 diabetes mellitus without complications Qualifiers: Diabetes mellitus type: type 2 Diabetes mellitus long-term insulin use: unspecified long-term insulin use status Diabetes mellitus complication status: with other specified complication Qualified Code(s): E11.69 - Type 2 diabetes mellitus with other specified complication Meds Home Medications and Allergies New Prescriptions to Start Prescriptions: Allergies Allergy/AdvReac Type Severity Reaction Status Date / Time semaglutide (From Ozempic) AdvReac Mild Nausea Verified 10/17/24 10:27 Discharge Plan Disposition Patient Disposition: Xfer Short-Term Hosp Condition: Good Discharge Order Discharge Orders: Discharge Order (Routine); Ordered 01/15/25 Ordered By: Page Collins Follow up Plan Prescriptions/Medication Reconciliation: Discontinued carvedilol 25 mg tablet 25 mg PO BID Kerendia 10 mg tablet 10 mg PO DAILY saxagliptin 5 mg tablet 5 mg PO DAILY multivitamin Tablet 1 tab PO DAILY Voquezna 10 mg tablet 10 mg PO DAILY clonazepam [Klonopin] 1 mg tablet 1 mg PO BID Synjardy XR 12.5-1,000 mg tablet, IR - ER, biphasic 24hr 2 tab PO DAILY mirabegron [Myrbetriq] 50 mg tablet extended release 24 hr 50 mg PO DAILY Qty: 30 0RF guanfacine 1 mg tablet 1 mg PO DAILY pioglitazone 30 mg tablet 30 mg PO DAILY hydralazine 25 mg tablet 25 mg PO DAILY Gemtesa 75 mg tablet 75 mg PO DAILY aspirin 81 mg Tablet,Delayed Release (Dr/Ec) 81 mg PO DAILY pantoprazole 40 mg tablet,delayed release (DR/EC) 40 mg PO BID rosuvastatin 10 mg tablet 10 mg PO HS amitriptyline 25 mg tablet 25 mg PO HS Trintellix 20 mg tablet 20 mg PO DAILY Problem Reconciliation Problems Reviewed?: Yes Patient Discharge Instructions Stand Alone Forms: Transfer Record Patient Instructions: Diarrhea, Acute Kidney Injury, DI for Fatigue Print Language: Yakut Providers Primary Care Provider: Chase Gunn Admit Provider: Chase Gunn Attending Provider: Chase Gunn
== END 2025-01-15 21:00 | disposition short-term general hospital (02) | DRG 92 ==
LOC: ER 13:00 → 2ND 13:06
PROVIDERS: Physician Assistant; Student in an Organized Health Care Education/Training Program; Admitting Provider Family Medicine; Emergency Provider Student in an Organized Health Care Education/Training Program; PCP Family Medicine; Visit Provider Family Medicine
DX: T85.733A Infection and inflammatory reaction due to implanted electronic neurostimulator of spinal cord, electrode (lead), initial encounter (principal); A04.72 Enterocolitis due to Clostridium difficile, not specified as recurrent; R78.81 Bacteremia; N17.9 Acute kidney failure, unspecified; L03.312 Cellulitis of back [any part except buttock and flank]; I10 Essential (primary) hypertension; B95.62 Methicillin resistant Staphylococcus aureus infection as the cause of diseases classified elsewhere; D64.9 Anemia, unspecified; D27.1 Benign neoplasm of left ovary; E11.9 Type 2 diabetes mellitus without complications; Y75.1 Therapeutic (nonsurgical) and rehabilitative neurological devices associated with adverse incidents; R53.1 Weakness; Z88.8 Allergy status to other drugs, medicaments and biological substances; Z79.82 Long term (current) use of aspirin; Z79.84 Long term (current) use of oral hypoglycemic drugs; Z79.899 Other long term (current) drug therapy
CPT/HCPCS: 0223U; 36415; 36569; 70450; 71045; 71275; 72125; 72132; 74177; 80048; 80053; 80202; 81001; 82803; 83605; 83735; 83880; 84484; 85025; 85610; 87040; 87077; 87154; 87186; 87507; 93005; 97162; 97165; 97530; 99285; C1751; G0378; J1171; J1650; J2270; J2405; J2543; J3375; J7120; Q9967

== ENCOUNTER 2025-01-26 09:02 | Outpatient (CLI) | payer MEDICARE, BC, SELFPAY ==
--- OUTSIDE RECORDS SUMMARY | 2024-05-23 05:45 | XMS_ITS ---
Author Organization [facility] Address [address] [phone] Care Team Providers Care Commercial Glazier Name Role Phone Chase Gunn Primary Care Provider Allergies Allergen (clinical drug ingredient) Drug/Non Drug Allergy documented on EMR Reaction Allergy Type Onset Date Status promethazine Promethazine sore mouth Drug Allergy Active Results Component Value Reference Range Notes P-Comprehensive Metabolic Pa torsten (CMP) Reviewed date:05/24/2024 11:29:48 AM Interpretation:glu 132, BUN 25, creat 1.24, eGFR 46 Performing Lab: Notes/Report: Test performed by [facility], [address] , [address], [place] [address] Deshawn Meade MD, Supervisor Border Department CLIA: [id number] Sodium 141 135-145 mmol/L Potassium 5.3 3.5-5.3 [...] Interpretation:7.8 Performing Lab: Notes/Report: Test performed by [email or web address] [address] [place] [address] [place] [address] Deshawn Meade MD, Supervisor Border Department CLIA: [id number] Hemoglobin A1C 7.8 <5.7 % The following HbA1c ranges recommended by the [place] Diabetes [employer] (ADA) may be used as an aid in the diagnosis of diabetes mellitus. HbA1c Suggested Diagnosis >=6.5% Diabetic 5.7% - 6.4% Pre-Diabetic <5.7% Non-Diabetic P-Lipid Panel Reviewed date:05/24/2024 11:29:48 AM Interpretation: Normal Performing Lab: Notes/Report: Test performed by [email or web address] [address] [place] [address] Jose Vargas C, [place] [address] Deshawn Meade MD, Supervisor Border Department CLIA: [id number] Cholesterol 144 <200 mg/dL Triglycerides 111 <150 [...] Normal Performing Lab: Notes/Report: Test performed by [email or web address] [address] [place] [address] , [address] , [place] [address] Deshawn Meade MD, Supervisor Border Department CLIA: [id number] TSH reflex to FT4 3.33 0.43-5.25 mU/L P-Microalbumin/Creatinine, R andom Urine Sample Reviewed date:05/24/2024 11:29:48 AM Interpretation: Normal Performing Lab: Notes/Report: Test performed by [email or web address] [address] [place] [address] , [place] [address] Deshawn Meade MD, Supervisor Border Department CLIA: [id number] Albumin/Creatinine Ratio, Urine 4 0-30 ug/m g Microalbumin, Urine, Random 0.3 Creatinine, Urine 76.8 Estimated Average Glucose Reviewed date:05/24/2024 11:29:48 AM Interpretation:177 Performing Lab: Notes/Report: Test performed by [facility], [address] , [address] , [place] [address] Deshawn Meade MD, Supervisor Border Department CLIA: [id number] Estimated Average Glucose (eAG) 177 Estimated Average [...] W/U Status Risk Notes Problem Chronic anemia (489531570) Chronic anemia (D64.9) Active confirmed Vital Signs Weight 181 lbs 05/23/2024 Blood pressure systolic 116 mm Hg 05/24/19 25 Blood pressure diastolic 64 mm Hg 025 Heart Rate 63 /min 05/23/2024 Height 66.25 in 05/23/2024 BMI 28.99 kg/m2 05/23/2024 Encounters Encounter Location Date Provider Diagnosis [facility] [address] [place], [place] [phone] 05/23/2024 Chase Gunn Type 2 diabetes sky [...] Notes * Rosa PERDOMODOB:1950 (74 yo F)Acc No.[id number]:05/23/2024 Progress Notes Patient: Rosa DICKERSON Provider: Alena Gunn M.D. :1950 A ge:73 Y S ex:Female Date:05/23/2024 Address:[address] [place], [place] [id number] Subjective: * Chief Complaints: * 1 . 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 * Surgical History: C holecystectomy , Bilateral Arterial Biopsy - Head - negative 04/11/2020, Brain Anuerysm Removal - [facility] 05/03/2020, EGD - 2015, 2021 , Bladder [...] a day as needed , Discontinued Nystatin 456956 UNIT/ML Suspension 5 ml Mouth/Throat Three times [...] stimated Average Glucose 177 - mg/dL * [facility], IT support 05/24/2024 08:40:06 : This order was created by the Interface. Cyndy Shelton 05/24/2024 11:29:38 AM > See phone encounter * Procedure Codes: G 2211 Complex e/m visit add on, 3051F HG A1C>EQUAL 7.0%<8.0%, G8752 MOST RECENT SYSTOLIC BP < 140MM HG, G8754 MOST RECENT DIASTOLIC BP < 90MM HG * Follow Up: 6 Months * Images: Billing Information: * Visit Code: 69372 Office Visit, Est Pt., Level 4. * Procedure Codes: G2211 Complex e/m visit add on. 3051F HG A1C>EQUAL 7.0%<8.0%. G8752 MOST RECENT SYSTOLIC BP < 140MM HG. G8754 MOST RECENT DIASTOLIC BP < 90MM HG. * Electronic signature of Cora Gunn MD on 01/26/2025 at 09:07 AM EST Sign off status: Pending * Provider: Alena Gunn M.D. Date: 0 05/23/2024 Generated for Ying mcnamara/Matilda/eTjoshuasmitting on: 1 03/29/2024 09:07 AM EST History and Physical Notes * [...]
--- OUTSIDE RECORDS SUMMARY | 2024-06-21 06:15 | XMS_ITS ---
Author Organization [facility] Address [address] [facility] [address] [phone] Care Team Providers Care Barytes Grinder Name Role Phone Chase Gunn Primary Care [...] W/U Status Risk Notes Problem Chronic pain (05179562) Other chronic pain (G89.29) Active confirmed Problem Arthritis of right knee (0204005086197 102) Arthritis of right knee (M17.11) Active confirmed Problem Body mass index 30+ - obesity (599628882) BMI 30.0-30.9,adul t (Z68.30) Active confirmed Vital Signs Weight 188.2 lbs 06/21/2024 Blood pressure systolic 112 mm Hg 06/22/19 25 Blood pressure diastolic 68 mm Hg 025 Heart Rate 62 /min 06/21/2024 Height 66.25 in 06/21/2024 BMI 30.14 kg/m2 06/21/2024 Encounters Encounter Location Date Provider Diagnosis [facility] [address] [facility] [address] [phone] 06/21/2024 Chase [place] Pain in right knee M 25.561 ; [...] Notes * Rosa PERDOMODOB:1950 (74 yo F)Acc No.[id number]:06/21/2024 Physical Patient: Rosa DICKERSON Provider: Alena Gunn M.D. :1950 A ge:73 Y S ex:Female Date:06/21/2024 Address:[address] [place], [place] [id number] Subjective: * Chief Complaints: * 1 . 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 * Surgical History: C holecystectomy , Bilateral Arterial Biopsy - Head - negative 04/11/2020, Brain Anuerysm Removal - [facility] 05/03/2020, EGD - 2015, 2021 , Bladder [...] ixed incontinence - N39.46 1 0. B SC 30.0-30.9,adult - Z68.30 ? Plan: * Treatment: [...] * Images: Billing Information: * Visit Code: 56152 Office Visit, Est Pt., Level 4. * [...] 06/21/2024 Generated for Ying mcnamara/Matilda/Mio on: 1 03/29/2024 09:07 AM EST History [...]
--- OUTSIDE RECORDS SUMMARY | 2024-07-11 06:15 | XMS_ITS ---
Author Organization [facility] Address [address] [facility] [address] [id number] Care Team Providers Care Pencil Sorter Name Role Phone Chase Gunn Primary Care Provider Allergies Allergen (clinical drug ingredient) Drug/Non Drug Allergy documented on EMR Reaction Allergy Type Onset Date Status promethazine Promethazine sore mouth Drug Allergy Active Results Component Value Reference Range Notes CBC Fingerstick (in house) Reviewed date:07/12/2024 01:11:12 PM Interpretation: Performing Lab: Notes/Report: wbc 6.8 3.5 - 10 lym 22.2% 15 - 50 mid 5.8% 2 - 15 gran 72.0% 35 - 80 rbc 3.91 3.5 - 5.5 hgb 12.9 11.5 - 16.5 hct 38.7 35 - 55 mcv 98.8 75 - 100 mch 32.9 25 - 35 mchc 33.3 31 - 38 plat 215 100 - 400 REASON FOR VISIT bad cough Medications Medication SIG (Take, Route, Frequency, Duration) Notes Start Date End Date Status Carvedilol 25 MG 1 tablet with food Orally Twice a day; Duration: 90 days Active Gemtesa 75 MG 1 tablet Orally Once a day; Duration: 90 days 07/11/2024 Active guanFACINE HCl 1 MG 1 tablet at bedtime Orally Once a day; Duration: 90 days Active Voquezna 10 MG 1 tablet Orally Once a day; Duration: 90 days 05/03/2024 Active Crestor 10 MG 1 tab(s) orally once a day (at bedtime) Active Irbesartan 150 MG 2 tablets Orally Onc e a day Active Synjardy XR 12.5-1000 MG 2 tablets with breakfast Orally Once a day; Duration: 30 days Active Kerendia 10 MG 1 tablet Orally Once a day; Duration: 90 days Active sAXagliptin HCl 5 MG 1 tablet Orally Onc e a day 02/22/2024 Active clonazePAM 1 MG 1 tab(s) orally 2 ti mes a day as needed 05/19/2024 Active Trintellix 20 MG 1 tab(s) orally once a day; Duration: 90 days Active Amitriptyline HCl 25 MG 1 tab(s) orally once a day (at bedtime); Duration: 90 days Active FeroSul 325 (65 Fe) MG TAKE 1 TABLET BY MOUTH THREE TIMES DAILY; Duration: 30 Active Calcium 600 + Minerals 600-200 MG-UNIT 1 tab(s) orally 3 times a day; Duration: 30 day(s) Active hydrALAZINE HCl 25 MG 1 tablet with food Orally Twice a day; Duration: 30 day(s) Active Darifenacin Hydrobromide ER 15 MG 1 tablet with liquid Orally Once a day; Duration: 30 day(s) Active Probiotic - as directed Orally Active Multivitamin - 1 tab(s) orally once a day; Duration: 30 day(s) Active Aspirin 81 MG 1 tablet Orally Once a day; Duration: 30 day(s) Active Iberogast - as directed Orally Active Beano Meltaways 450 UNIT as directed Orally Active Problems Problem Type SNOMED Code ICD Code Onset Dates Problem Status W/U Status Risk Notes Problem Overactive urinary bladder (disorder) (447290320) OAB (overactiv e bladder) (N32.81) Active confirmed Vital Signs Weight 187.8 lbs 07/11/2024 Blood pressure systolic 110 mm Hg 07/12/19 25 Blood pressure diastolic 70 mm Hg 025 Heart Rate 62 /min 07/11/2024 Height 66.25 in 07/11/2024 BMI 30.08 kg/m2 07/11/2024 Encounters Encounter Location Date Provider Diagnosis [facility] [address] [facility] [address], [place] [id number] 07/11/2024 Chase Panola Persistent cough R05 .3 ; Gastroesophageal reflux disease without esophagitis K21.9 ; Essential hypertension I10 ; OAB (overactive bladder) N32.81 and BMI 30.0-30.9,adult Z68.30 Assessments Encounter Date Diagnosis (ICD Code) Assessment Notes Treatment Notes Treatment Clinical Notes Section Notes 07/11/2024 Persistent cough (ICD-10 - R05.3) 07/11/2024 Gastroesophageal reflux disease without esophagitis (ICD-10 - K21.9) 07/11/2024 Essential hypertension (ICD-10 - I10) 07/11/2024 OAB (overactive bladder) (ICD-10 - N32.81) 07/11/2024 BMI 30.0-30.9,adult (ICD-10 - Z68.30) Plan Of Treatment Medication Medication Name Sig Start Date Stop Date Notes Carvedilol 25 MG 1 tablet with food O rally Twice a day; Duration: 90 days Gemtesa 75 MG 1 tablet Orally Once a day; Duration: 90 days 07/11/2024 guanFACINE HCl 1 MG 1 tablet at bedtime Orally Once a day; Duration: 90 days Voquezna 10 MG 1 tablet Orally Once a day; Duration: 90 days 05/03/2024 Mirabegron ER 50 MG 1 tablet Orally Once a day Next Appt Details Follow Up: via phone to repo rt test results, Reason: Progress Notes * Rosa PERDOMODOB:1950 (74 yo F)Acc No.[id number]:07/11/2024 Progress Notes Patient: Rosa DICKERSON Provider: Alena Gunn M.D. :1950 A ge:73 Y S ex:Female Date:07/11/2024 Address:[address] [place], [place] [id number] Subjective: * Chief Complaints: * 1 . Bad cough. * HPI: E NT/respiratory: 73 year old female presents with c/o cough P t complains of ongoing d ry without any sputum production cough. Pt states she has had this cough for 5-6 months. Patient had a CXR this morning. * ROS: D ERMATOLOGY: no R rowan. n o H jaron. G ASTROENTEROLOGY: no N ausea. n o V omiting. U ROLOGY: no D ifficulty urinating. n o B lood in urine. 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 * Surgical History: C holecystectomy , Bilateral Arterial Biopsy - Head - negative 04/11/2020, Brain Anuerysm Removal - [facility] 05/03/2020, EGD - 2015, 2021 , Bladder [...] URRENT TOBACCO USE S moking Status: P nikunj does NOT smoke. * Medications: T aking Beano Meltaways 450 UNIT Tablet Disintegrating as directed Orally , Taking Iberogast - Capsule as directed Orally , Taking Mirabegron ER 50 MG Tablet Extended Release 24 Hour 1 tablet Orally Once a day , Taking Probiotic - Tablet Delayed Release as directed [...] once a day (at bedtime) , Taking sAXagliptin HCl 5 MG Tablet 1 tablet Orally Once a day , Taking Voquezna 10 MG Tablet 1 tablet Orally Once a day , Taking Carvedilol 25 MG Tablet 1 tablet with food Orally Twice a day , Taking Kerendia 10 MG Tablet 1 tablet Orally Once a day , Taking Synjardy XR 12.5-1000 MG Tablet Extended Release 24 Hour 2 tablets with breakfast Orally Once a day , Discontinued Pantoprazole Sodium 40 MG Tablet Delayed Release 1 tablet 1/2 to 1 hour before morning meal Orally Once a day * Allergies: P romethazine: sore mouth - Side Effects. Objective: * Vitals: W t: 187.8, Temp: 98.0, BP: 110/70, HR: 62, O2 Sat: 97% on RA, Nurse: kimberly, Ht: 66.25, BMI:30.08. * Examination: E NT/Respiratory: General Appearance: N AD. E yes: P ERRLA, sclera clear. O ral cavity : minimal erythema without exudate on pharynx. N barber : n o cervical lymphadenopathy. H eart : R RR, normal S1 S2. L ungs: c lear to auscultation bilaterally. Assessment: * Assessment: 1. P ersistent cough - R05.3 (Primary) 2 . G astroesophageal reflux disease without esophagitis - K21.9 3 . E ssential hypertension - I10 4 . O AB (overactive bladder) - N32.81 5 . B NC 30.0-30.9,adult - Z68.30 Plan: * Treatment: Value Reference Range w bc 6.8 3.5 - 10 * l ym 22.2% 15 - 50 * m id 5.8% 2 - 15 * g ran 72.0% 35 - 80 * r bc 3.91 3.5 - 5.5 * h gb 12.9 11.5 - 16.5 * h ct 38.7 35 - 55 * m cv 98.8 75 - 100 * m ch 32.9 25 - 35 * m chc 33.3 31 - 38 * p lat 215 100 - 400 * Kenya Mcclure 07/11/2024 11:52:1 8 AM EDT > Provider reviewed results while patient in office. 2.?Gastroesophageal reflux disease without esophagitis? Refill Voquezna Tablet, 10 MG, 1 tablet, Orally, Once a day, 90 days, 90, Refills 1.??3.?Essential hypertension? Refill guanFACINE HCl Tablet, 1 MG, 1 tablet at bedtime, Orally, Once a day, 90 days, 90, Refills 1;?Refill Carvedilol Tablet, 25 MG, 1 tablet with food, Orally, Twice a day, 90 days, 180, Refills 1.??4.?OAB (overactive bladder)? Stop Mirabegron ER Tablet Extended Release 24 Hour, 50 MG, 1 tablet, Orally, Once a day;?StartGemtesa Tablet, 75 MG, 1 tablet, Orally, Once a day, 90 days, 90 Tablet, Refills 1.?? * Procedure Codes: G 2211 Complex e/[place], [address] CAPILLARY BLOOD DRAW, 82605 CBC WITH AUTO DIFF, G8950 PREHTN/HTN BP DOC INDCD F/U DOC, G8752 MOST RECENT SYSTOLIC BP < 140MM HG, G8754 MOST RECENT DIASTOLIC BP < 90MM HG, 1036F TOBACCO NON-USER * Follow Up: v ia phone to report test results * Images: Billing Information: * Visit Code: 97838 Office Visit, Est Pt., Level 4. * Procedure Codes: G2211 Complex e/[place]. [address] CAPILLARY BLOOD DRAW. 89476 CBC WITH AUTO DIFF. G8950 PREHTN/HTN BP DOC INDCD F/U DOC. G8752 MOST RECENT SYSTOLIC BP < 140MM HG. G8754 MOST RECENT DIASTOLIC BP < 90MM HG. 1036F TOBACCO NON-USER. * Electronic signature of Cora Gunn MD on 01/26/2025 at 09:10 AM EST Sign off status: Pending * Provider: Alena Gunn M.D. Date: 0 07/11/2024 Generated for Ying [email or web address] on: 03/29/2024 09:10 AM EST History and Physical Notes * HPI (History of Present Illness) Category Sub-Category Detail Notes Category Not es ENT/respiratory cough Pt complains of ongoing dry without any sputum production cough. Pt states she has had this cough for 5-6 months. Patient had a CXR this morning Examination Category Sub-Category Detail Notes Category Not es ENT/Respiratory Oral cavity : minimal erythema without exudate on pharynx Neck : no cervical lymphade nopathy Heart : RRR, normal S1 S2 Lungs: clear to auscultatio n bilaterally General Appearance: NAD Eyes: PERRLA, sclera clear
--- OUTSIDE RECORDS SUMMARY | 2024-09-07 05:15 | XMS_ITS ---
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 Name Role Phone Chase Gunn Primary Care Provider [phone] Allergies Allergen (clinical drug ingredient) Drug/Non Drug Allergy documented on EMR Reaction Allergy Type Onset Date Status promethazine Promethazine sore mouth Drug Allergy Active REASON FOR VISIT [facility] ER f/u Medications Medication SIG (Take, [...] UNIT as directed Orally Active Vital Signs Weight 186.2 lbs 09/07/2024 Blood pressure systolic 122 mm Hg 09/08/19 25 Blood pressure diastolic 68 mm Hg 025 Heart Rate 80 /min 09/07/2024 Height 66.25 in 09/07/2024 BMI 29.82 kg/m2 09/07/2024 Encounters Encounter Location Date Provider Diagnosis [facility] [address] [place] [address] [phone] 09/07/2024 Chase Gunn Herpes zoster withou t [...] Notes * Rosa PERDOMODOB:1950 (74 yo F)Acc No.[id number]:09/07/2024 Progress Notes Patient: Rosa DICKERSON Provider: Alena Gunn M.D. :1950 A ge:73 Y S ex:Female Date:09/07/2024 Address:[address] [place], [place] [id number] Subjective: * Chief Complaints: * 1 . [facility] ER f/u. * HPI: H PI: 73 year old female presents with c/o Here for follow up on:?09/03/2024 [facility] er visit. 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 * Surgical History: C holecystectomy , Bilateral Arterial Biopsy - Head - negative 04/11/2020, Brain Anuerysm Removal - [facility] 05/03/2020, EGD - 2015, 2021 , Bladder [...] complication - B02.9 (Primary) 2 . B ND 29.0-29.9,adult - Z68.29 Plan: * Treatment: * Procedure Codes: G 2211 Complex e/m visit add on, G8420 BMI<30 AND >=22 CALC & DOCU, G8783 BP SCR PRFRM RCMDD DEFIND SCR INTVL, G8752 MOST RECENT SYSTOLIC BP < 140MM HG, G8754 MOST RECENT DIASTOLIC BP < 90MM HG * Follow Up: v ia phone to report progress * Images: Billing Information: * Visit Code: 06517 Office Visit, Est Pt., Level 3. * Procedure Codes: G2211 Complex e/m visit add on. G8420 BMI<30 AND >=22 CALC & DOCU. G8783 BP SCR PRFRM RCMDD DEFIND SCR INTVL. G8752 MOST RECENT SYSTOLIC BP < 140MM HG. G8754 MOST RECENT DIASTOLIC BP < 90MM HG. * Electronic signature of Cora Gunn MD on 01/26/2025 at 09:08 AM EST Sign off status: Pending * Provider: Alena Gunn M.D. Date: 0 09/07/2024 Generated for Ying mcnamara/Matilda/eTransmitting on: 1 03/29/2024 09:08 AM EST History and Physical Notes * HPI (History of Present Illness) Category Sub-Category Detail Notes Category Not es HPI Here for follow up on: 5 [facility] er visit. Pt went to er [...]
--- OUTSIDE RECORDS SUMMARY | 2024-11-22 05:30 | XMS_ITS ---
Author Organization [facility] Address [address] [facility] [address] [id number] Care Team Providers Care Manager Of Digital Name Role Phone Chase Gunn Primary Care Provider Allergies Allergen (clinical drug ingredient) Drug/Non Drug Allergy documented on EMR Reaction Allergy Type Onset Date Status promethazine Promethazine sore mouth Drug Allergy Active Results Component Value Reference Range Notes Glucose (In-House) Reviewed date:11/22/2024 04:27:37 PM Interpretation:178 Performing Lab: Notes/Report: 178 blood glucose 178 74 - 106 mg/dL Glycohemoglobin A1c (in hous e) Reviewed date:11/22/2024 04:27:37 PM Interpretation:8.5% Performing Lab: Notes/Report: 8.5% glycohemoglobin 8.5% 5 - 6.5 % REASON FOR VISIT 6 months Medications Medication SIG (Take, Route, Frequency, Duration) Notes Start Date End Date Status Darifenacin Hydrobromide ER 15 MG 1 tablet with liquid Orally Once a day; Duration: 30 day(s) Not-Taking clonazePAM 1 MG 1 tab(s) orally 2 times a day as needed; Duration: 30 days 11/21/2024 Active Trintellix 20 MG 1 tab(s) orally once a day; Duration: 90 days Active Amitriptyline HCl 25 MG 1 tablet at bedt samantha orally once a day (at bedtime); Duration: 90 days Active Crestor 10 MG 1 tab(s) orally once a day (at bedtime); Duration: 90 days Active sAXagliptin HCl 5 MG 1 tablet Orally Onc e a day Active Synjardy XR 12.5-1000 MG 2 tablets with breakfast Orally Once a day Active Irbesartan 150 MG 2 tablets Orally Onc e a day Active hydrALAZINE HCl 25 MG 1 tablet with food Orally Twice a day Active FeroSul 325 (65 Fe) MG TAKE 1 TABLET BY MOUTH THREE TIMES DAILY; Duration: 30 days Active Gemtesa 75 MG 1 tablet Orally Once a day; Duration: 90 days 07/11/2024 Active Carvedilol 25 MG 1 tablet with food Orally Twice a day Active Kerendia 10 MG 1 tablet Orally Once a day; Duration: 90 days Active Voquezna 10 MG 1 tablet Orally Once a day; Duration: 90 days 05/03/2024 Active guanFACINE HCl 1 MG 1 tablet at bedtime Orally Once a day; Duration: 90 days Active Calcium 600 + Minerals 600-200 MG-UNIT 1 tab(s) orally 3 times a day; Duration: 30 day(s) Active Multivitamin - 1 tab(s) orally once a day; Duration: 30 day(s) Active Aspirin 81 MG 1 tablet Orally Once a day; Duration: 30 day(s) Active Pioglitazone HCl 30 MG 1 tablet Orally O nce a day; Duration: 90 days 11/22/2024 Active Probiotic - as directed Orally Active Iberogast - as directed Orally Active Beano Meltaways 450 UNIT as directed Orally Active Immunizations Vaccine Route Administration Date Status Comme nts Fluzone High Dose (65yr and older) IM Intramuscular 11/22/2024 Administered Vital Signs Weight 192.8 lbs 11/22/2024 Blood pressure systolic 120 mm Hg 11/23/19 25 Blood pressure diastolic 68 mm Hg 025 Heart Rate 80 /min 11/22/2024 Height 66.25 in 11/22/2024 BMI 30.88 kg/m2 11/22/2024 Encounters Encounter Location Date Provider Diagnosis [facility] [address] [place], [place] [phone] 11/22/2024 Chase Gunn Type 2 diabetes sky itus without complication E11.9 ; Essential hypertension I10 and Encounter for immunization Z23 Assessments Encounter Date Diagnosis (ICD Code) Assessment Notes Treatment Notes Treatment Clinical Notes Section Notes 11/22/2024 Type 2 diabetes mellitus without complication (ICD-10 - E11.9) Not at goal today 11/22/2024 Essential hypertension (ICD-10 - I10) 11/22/2024 Encounter for immunization (ICD-10 - Z23) Plan Of Treatment Medication Medication Name Sig Start Date Stop Date Notes sAXagliptin HCl 5 MG 1 tablet Orally Once a day Synjardy XR 12.5-1000 MG 2 tablets with breakfast Orally Once a day Irbesartan 150 MG 2 tablets Orally Once a day hydrALAZINE HCl 25 MG 1 tablet with food Orally Twice a day Carvedilol 25 MG 1 tablet with food O rally Twice a day Pioglitazone HCl 30 MG 1 tablet Orally O nce a day; Duration: 90 days 11/22/2024 Treatment Notes Assessment Notes Type 2 diabetes mellitus without complic ation Not at goal today Next Appt Details Follow Up: 6 Months, Reason: Progress Notes * Rosa PERDOMODOB:1950 (74 yo F)Acc No.[id number]:11/22/2024 Progress Notes Patient: Rosa DICKERSON Provider: Alena Gunn M.D. :1950 A ge:73 Y S ex:Female Date:11/22/2024 Address:[address] [place], [place] [id number] Subjective: * Chief Complaints: * 1 . 6 months. * HPI: C ardiology: 73 year old female presents with c/o Hyperlipidemia P t is fasting today. Blood Pressure Elevated P t here for 6 month follow up on Hypertension. Pt states she is doing well and has no concerns at this time. E ndocrinology: c/o Recent Blood Sugars P t here for follow up on DM2. 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 * Surgical History: C holecystectomy , Bilateral Arterial Biopsy - Head - negative 04/11/2020, Brain Anuerysm Removal - [facility] 05/03/2020, EGD - 2015, 2021 , Bladder stimulator 2017, colonoscopy - 2015, 2021, 2023 , Total Right Knee replacement - Dr. West July 2024. * Hospitalization/Major Diagno stic Procedure: Alena Taylorysm 05/03-. * Family History: F ather: , diagnosed with Heart Disease. M other: alive, diagnosed with Hypertension. S iblings: alive. C hildren: alive. 2 sister(s) - healthy. 1 son(s) , 1 daughter(s) - healthy. . * Social History: C URRENT TOBACCO USE: No . * Medications: T aking Beano Meltaways 450 UNIT Tablet Disintegrating as directed Orally , Taking Iberogast - Capsule as directed Orally , Taking Probiotic - Tablet Delayed Release as directed Orally , Taking hydrALAZINE HCl 25 MG Tablet 1 tablet with food Orally Twice a day , Taking Aspirin 81 MG [...] BY MOUTH THREE TIMES DAILY , Taking sAXagliptin HCl 5 MG Tablet 1 tablet Orally Once a day , Taking Trintellix 20 MG Tablet 1 tab(s) orally once a day , Taking Crestor 10 MG Tablet 1 tab(s) orally once a day (at bedtime) , Taking Amitriptyline HCl 25 MG Tablet 1 tablet at bedtime orally once a day (at bedtime) , Taking clonazePAM 1 MG Tablet 1 tab(s) orally 2 times a day as needed , Taking Irbesartan 150 MG Tablet 2 tablets Orally Once a day , Not- Taking Darifenacin Hydrobromide ER 15 MG Tablet Extended Release 24 Hour 1 tablet with liquid Orally Once a day , Discontinued Gabapentin 300 MG Capsule 1 capsule Orally Once a day , Discontinued valACYclovir HCl 1 GM Tablet 1 tablet Orally Once a day , Discontinued Dicloxacillin Sodium 500 MG Capsule 1 capsule 1 hour before or 2 hours after meals Orally every 6 hrs , Medication List reviewed and reconciled with the patient * Allergies: P romethazine: sore mouth - Side Effects. Objective: * Vitals: W t: 192.8, Temp: 98.0, BP: 120/68, HR: 80, O2 Sat: 90% on RA, Nurse: JAQUAN, Ht: 66.25, BMI:30.88. * Examination: C ardiology: General Appearance: p leasant, NAD. H eart sounds: R RR, normal S1, S2. L ungs: c lear, no rales or wheezes. E xtremities: n o leg edema. Assessment: * Assessment: 1. T ype 2 diabetes mellitus without complication - E11.9 (Primary) 2 . E ssential hypertension - I10 3 . E ncounter for immunization - Z23 ? Plan: * Treatment: Value Reference Range b lood glucose 178 74 - 106 mg/dL * Christina Teague 11/22/2024 11 :52:11 AM EDT > Cyndy Shelton 11/22/2024 04:24:40 PM EDT > pt informed of labs and has picked up Pioglitazone. ?LAB: Glycohemoglobin A1c (in house) (Collection Date & Time - 11/22/2024)? 8.5%* Value Reference Range g lycohemoglobin 8.5% 5 - 6.5 % * Christina Teague 11/22/2024 11 :52:35 AM EDT > Cyndy Shelton 11/22/2024 04:24:40 PM EDT > pt informed of labs and has picked up Pioglitazone. Notes: Not at goal today??2.?Essential hypertension? Continue hydrALAZINE HCl Tablet, 25 MG, 1 tablet with food, Orally, Twice a day;?Continue Irbesartan Tablet, 150 MG, 2 tablets, Orally, Once a day;?Continue Carvedilol Tablet, 25 MG, 1 tablet with food, Orally, Twice a day.?? * Immunizations: Fluzone High Dose (65yr and older) : 0.5 mL (Route: Intramuscular) given by Christina Teague on Right Deltoid (Encounter for immunization) * Procedure Codes: G 2211 Complex e/[place], [address] GLUCOSE TEST, 77154 CAPILLARY BLOOD DRAW, 29562 GLYCATED HEMOGLOBIN TEST, Modifiers: QW , 3052F HG A1C>EQUAL 8.0%<EQUAL 9.0%, 1036F TOBACCO NON-USER, G8950 PREHTN/HTN BP DOC INDCD F/U DOC, G8752 MOST RECENT SYSTOLIC BP < 140MM HG, G8754 MOST RECENT DIASTOLIC BP < 90MM HG, 3074F SYST BP LT 130 MM HG, 3078F DIAST BP < 80 MM HG * Follow Up: 6 Months * Images: Billing Information: * Visit Code: 08684 Office Visit, Est Pt., Level 4. * Procedure Codes: G2211 Complex e/[place]. [address] GLUCOSE TEST. 03688 CAPILLARY BLOOD DRAW. 31593 GLYCATED HEMOGLOBIN TEST. Modifiers: QW 3052F HG A1C>EQUAL 8.0%<EQUAL 9.0%. 1036F TOBACCO NON-USER. G8950 PREHTN/HTN BP DOC INDCD F/U DOC. G8752 MOST RECENT SYSTOLIC BP < 140MM HG. G8754 MOST RECENT DIASTOLIC BP < 90MM HG. 3074F SYST BP LT 130 MM HG. 3078F DIAST BP < 80 MM HG. * Electronic signature of Cora Gunn MD on 01/26/2025 at 09:06 AM EST Sign off status: Pending * Provider: Alena Gunn M.D. Date: Generated for Ying mcnamara/Matilda/Ericitting on: 03/29/2024 09:06 AM EST History and Physical Notes * HPI (History of Present Illness) Category Sub-Category Detail Notes Category Not es Endocrinology Recent Blood Sugars Pt here for follow u p on DM2 Cardiology Blood Pressure Elevated Pt here for 6 month follow up on Hypertension. Pt states she is doing well and has no concerns at this time Hyperlipidemia Pt is fasting today Examination Category Sub-Category Detail Notes Category Not es Cardiology Lungs: clear, no rales or wheezes Heart sounds: RRR, normal S1, S2 Extremities: no leg edema General Appearance: pleasant, NAD
--- OUTSIDE RECORDS SUMMARY | 2024-12-04 03:45 | XMS_ITS ---
Author Organization [facility] Address 1210 [facility] [address] [phone] Care Team Providers Care Pad Machine Operator Name Role Phone Luis A Chase [...] Administered Encounters Encounter Location Date Provider Diagnosis [facility] [address] [place], [place] [phone] 12/04/2024 Chase Gunn Encounter for immunization Z23 Assessments Encounter Date Diagnosis (ICD Code) Assessment Notes Treatment Notes Treatment Clinical Notes Section Notes 12/04/2024 Encounter for immunization (ICD-10 - Z23) Plan Of Treatment No Information Progress Notes * Rosa PERDOMODOB:1950 (74 yo F)Acc No.[id number]:12/04/2024 Patient: Rosa DICKERSON Provider: Alena Gunn M.D. :1950 A ge:73 Y S ex:Female Date:12/04/2024 Address:[address] [place], [place] [address] Subjective: * Chief Complaints: * 1 . [...] (Route: Intramuscular) given by CHRISTIANE Eric , Lithopone Charger on Right Deltoid (Encounter for immunization) * Images: Billing Information: * Visit Code: * Procedure Codes: * Electronic signature of Cora Gunn MD on 01/26/2025 at 09:09 AM EST Sign off status: Pending * Provider: Alena Gunn M.D. Date: Generated for Ying mcnamara/Matilda/Mio on: 03/29/2024 09:09 AM EST
--- OUTSIDE RECORDS SUMMARY | 2024-12-27 08:31 | XMS_ITS ---
Author Organization [facility] Address 1210 [facility] [address] [phone] Care Team Providers Care Sports Development Officer Name Role Phone Chase Gunn Primary Care Provider [phone] Reason For Referral Diagnosis 1 Other dysphagia (R13 .19) Referral Organization [facility] Referring Provider First Name Chase Referring Provider Last Name Luis A Referring Provider [facility] Referred Provider ENT, . Referred Provider Specialty ENT General Notes Letitia Osei 2024 02:41:20 PM > faxed to [facility] Farnaz EDWARDS Brynn 01/05/2025 09:38:55 AM > 01/29/2025 at 02:40pm Referral Priority Routine REASON FOR VISIT Needs referral Encounters Encounter Location Date Provider Diagnosis [facility] [address] [phone] 12/27/2024 Chase Gunn Other dysphagia R13. 19 Assessments Encounter Date Diagnosis (ICD Code) Assessment Notes Treatment Notes Treatment Clinical Notes Section Notes 12/27/2024 Other dysphagia (ICD-10 - R13.19) Plan Of Treatment Referrals Referral Date Details 01/03/2025 01/03/2025, . ENT Progress Notes * Rosa PERDOMODOB:1950 (74 yo F)Acc No.[id number]:12/27/2024 Patient: Rosa DICKERSON :1950 A ge:74 Y S ex:Female Address:[address] [place], [address] Subjective: * Chief Complaints: * N eeds referral * Medical History: * Surgical History: * Hospitalization/Major Diagno stic Procedure: * Medications: Objective: * Vitals: * Physical Examination: Assessment: * Assessment: 1. O ther dysphagia - R13.19 (Primary) Plan: * Treatment: * Procedure Codes: * true * Date: Generated for Ying mcnamara/Matilda/eTransmitting on: 03/29/2024 09:06 AM EST Consultation Request Notes Referral Date Referring Provider Referred Provider Not es 01/03/2025 Chase Gunn ENT, .
--- OUTSIDE RECORDS SUMMARY | 2025-01-10 | XMS_ITS | Encounter Summary ---
Author Organization [facility] Address [address] [place] [address] Care Team Providers Care Kennel Keeper Name Role Phone Chase Gunn MD Primary Care Provider [phone] Encounter Details Date Type Department Care Team (Latest Contact Info) Description 01/10/2025 - 01/10/2025 11:59 PM [facility] Hospital Encounter Image Record Center [address] [place] [phone] Examination Discharge Disposition: Home or Self Care [...] were you homeless or living in a long term (including now)? No 01/16/2025 [facility] Utilities Answer Date Recorded In the past [...] Info) Description 03/27/2025 8:30 AM EST Consult [place] [facility] Clinic [address] [place] [address] Fransisco Farley MD [address] [place] [address] documented as of this encounter [...] examination documented in this encounter Care Teams Kennel Keeper Relationship Specialty Start Date End Date Chase Gunn MD [address] [facility] [address] [place] [address] PCP - General 06/21/20 documented as of this encounter
--- OUTSIDE RECORDS SUMMARY | 2025-01-10 05:00 | XMS_ITS ---
Author Organization [facility] Address [address] [facility] [address] [place] [phone] Care Team Providers Care Rice Dryer Mechanic Name Role Phone Chase Gunn Primary Care Provider Allergies Allergen (clinical drug ingredient) Drug/Non Drug Allergy documented on EMR Reaction Allergy Type Onset Date Status promethazine Promethazine sore mouth Drug Allergy Active REASON FOR VISIT BP high Encounters Encounter Location Date Provider Diagnosis Lana 1210 [facility] [address] [place] [phone] 01/10/2025 Chase Gunn Plan Of Treatment No Information Progress Notes * Rosa PERDOMODOB:1950 (74 yo F)Acc No.[id number]:01/10/2025 Progress Notes Patient: Rosa DICKERSON Provider: Alena Gunn M.D. :1950 A ge:74 Y S ex:Female Date:01/10/2025 Address:[address] [place], [place] [id number] Subjective: * Chief Complaints: * 1 . BP high. * HPI: C ardiology: 74 year old female presents with c/o Blood Pressure Elevated.? 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 * Surgical History: C holecystectomy , Bilateral Arterial Biopsy - Head - negative 04/11/2020, Brain Anuerysm Removal - [facility] [employer] - [place] 05/03/2020, EGD - 2015, 2021 [...] Date: 03/13/2024 Generated for Ying mcnamara/Matilda/Ericitting on: 03/29/2024 09:07 AM EST History and Physical Notes * HPI (History of Present Illness) Category Sub-Category Detail Notes Category Not es Cardiology Blood Pressure Elevated
--- OUTSIDE RECORDS SUMMARY | 2025-01-15 21:57 | XMS_ITS | Encounter Summary ---
Author Organization Healthcare Address [address] [place] [address] Care Team Providers Care Line Erector Name Role Phone Chase Gunn MD Primary Care Provider [phone] Reason for Referral * Consultation (Routine) - Authorized Specialty Diagnoses / Procedures Referred By Contac t Referred To Contact Infectious Diseases Diagnoses MRSA bacteremia Postoperative sepsis (CMS/HCC) Merlin Massey MD [address] [place] [address] Phone: tel: fax: Referral ID Status Reason Start Date Expiration Date Visits Requested Visits Authorized [id number] Authorized Specialty Services Required 5 07/25/2026 1 1 * Consultation (Routine) - Authorized Specialty Diagnoses / Procedures Referred By Contac t Referred To Contact Neurosurgery Diagnoses MRSA bacteremia Postoperative sepsis ([facility]) Merlin Massey MD [address] [place] [address] Phone: tel: fax: Referral ID Status Reason Start Date Expiration Date Visits Requested Visits Authorized [id number] Authorized Specialty Services Required 5 07/25/2026 1 1 Scheduling Instructions Fransisco Farley MD- s/p Spinal stimulator explant Reason for Visit * Auth/Cert (Routine) Specialty Diagnoses / Procedures Referred By Contac t Referred To Contact Diagnoses Sepsis ([facility]) infected spinal cord stimulator, MRSA Demar Jiménez MD [address] [place] [address] Phone: tel: fax: [facility] Inpatient [address] [place] [address] Referral ID Status Reason Start Date Expiration Date Visits Re quested Visits Authorized [id number] 1 1 Encounter Details Date Type Department Care Team (Latest Contact Info) Description 01/15/2025 9:57 PM EST - 01/23/2025 1:13 PM EST Hospital Encounter [facility] Inpatient [address] [place] [address] Fransisco Farley MD [address] [place] [address] Demar Jiménez MD [address] [place] [address] Cleve Deleon MD [address] [place] [address] Merlin Massey MD [address] [place] [address] MRSA bacteremia (Primary Dx); Postoperative sepsis ([facility]) [T81.44XA]; Cellulitis of back except buttock Discharge Disposition: [facility] Facility Social History Tobacco Use Types Packs/Day [...] were you homeless or living in a group home (including now)? No 01/16/2025 [facility] Utilities Answer Date Recorded In the past [...] documented in this encounter Functional Status * Question Answer Date of Assessment Author Precautions Fall risk;[facility] surveillance 01/23/2025 8:00 AM Ariadne Horner RN * Calculated C-SSRS Risk Score (Lifetime/Recent) Answer Date of Assessment Author No Risk Indicated 01/23/2025 8:00 AM Ariadne Horner RN * Question Answer Date of Assessment Author 1. Wish to be (Past 1 Month) No 025 8:00 AM Ariadne Horner RN 2. Non-Specific Active Suici christie Thoughts (Past 1 Month) No 01/23/2025 8:00 AM Ariadne Horner RN 6. Suicidal Behavior (Lifetime) No 8:00 AM Ariadne Horner RN documented as of this encounter Mental Status * Question Answer Entry Date Author Precautions Fall risk;[facility] surveillance 01/23/2025 8:00 AM Ariadne Horner RN documented in this encounter Medications at [...] as needed for anxiety. 3 tablet 01/23/2025 empagliflozin-metFO RMIN ER (Synjardy XR) 12.5-1000 MG 24 hr tablet Take 2 tablets by mouth daily with breakfast. ferrous sulfate 325 (65 Fe) MG tablet Take 1 tablet by mouth every other day. 01/22/2025 mirabegron ER (Myrbetriq) 50 MG tablet Take 1 tablet by mouth daily. 12/07/2024 01/28/202 6 Multiple Vitamins-Minerals (ONE-A-DAY WOMENS PO) Take 1 tablet by mouth daily. NIFEdipine XL (Adalat CC) 30 MG 24 hr tablet Take 1 tablet by mouth daily. Do not crush, chew, or split. 01/23/2025 pantoprazole (Protonix) 40 MG EC tablet Take 1 tablet by mouth 2 times a day. Do not crush, chew, or split. 01/22/2025 pioglitazone (Actos) 30 MG tablet Take 1 tablet by mouth daily. 11/22/2024 6 Probiotic tablet delayed-release Take 1 tablet by [...] as of this encounter Miscellaneous Notes * Inga Galindo - Jerome Henderson RN - 01/23/2025 12:18 PM EST Images from the original note were not included. [id number] What is Sepsis? Sepsis is a very [...] (ICU). Last Reviewed Date: 2024 00:00:00 ?? [id number] [employer]. All rights reserved. This information is not intended as a substitute for professional medical care. Always follow your healthcare professional's instructions. * [facility] - Jerome Henderson RN - 01/23/2025 12:18 PM EST Images from the original note were not included. [id number] Understanding Sepsis Sepsis is a life-threatening problem [...] . Last Reviewed Date: 2024 00:00:00 ?? [id number] [employer]. All rights reserved. This information is not intended as a substitute for professional medical care. Always follow your healthcare professional's instructions. * Inga LozanoSHAHRAM - Jerome Henderson RN - 01/23/2025 12:18 PM EST Images from the original note were not included. [id number] Bacteremia, Suspected (Adult) Bacteremia is a bacterial [...] Lung infection (pneumonia) ? Infection of a biomedical analytical scientist placed in a vein or the bladder [...] provider Last Reviewed Date: 2024 00:00:00 ?? [id number] [employer]. All rights reserved. This information is not intended as a substitute for professional medical care. Always follow your healthcare professional's instructions. * Progress Notes - Amanda Meza RN - 01/23/2025 10:13 AM EST Case Management Discharge Note Rosa Perdomo 74 y.o. female CSN: [id number] Admission: 01/15/2025 9:57 PM Primary Problem: Postoperative sepsis ([facility]) Primary Press Maintainer: Patient is going to [facility] where staff can assist with care needs Assistance Available at Discharge: Current Outpatient/Agency/Support Group: clinic(s), DME Availability of Care Givers (#Hours): 24 hours (staff at [facility]) Family/Press Maintainer(s) Willingness Assessed to care for patient at home: Yes Family/Press Maintainer(s) Readiness Assessed to care for patient at home: Yes Housing Circumstances-Z Codes: Housing Circumstances (select all that apply): None Applicable Patient Referred to Financial or Community Resources: No community resources needed at this time. Going to [facility] Discharge Facility/Level of Care Needs: Discharge Facility/Level of Care Needs: 3-[facility] Facility ([facility]) Patient's Choice of Community Agency(s): Patient's Choice of Community Agency(s): [facility] Patient/Family Anticipated Services at Transition: Patient/Family Anticipated Services at Transition: rehabilitation services, fdc ([facility]) DME/Equipment Needed after Discharge: Equipment Currently Used at Home: walker, rollator, shower chair Equipment Needed After Discharge: other (see comments) (per [facility]) Readmission Within the Last 30 Days: Readmission Within the Last 30 Days: no previous admission in last 30 days Medicare Documentation: Medicare Second Notice?: Yes Date Second Notice Completed: 01/22/25 Time Second Notice Completed: 1111 Medicare Second Notice Recieved By: patient Follow-up: Chase Gunn MD [address] [facility] [address] [facility] [address] Discharge Transportation: Transportation Anticipated: other (see comments) (W/C transport, bean picker at 2 pm.) Transportation Home at [...] Has Acute recs, but request DESTINEY at [facility]. Per admissions (Stacey), they can accept patient today. Patient will need to be on Vancomycin for discharge, not Dapto. Number for report: [phone] (Unit 1) MA Summary: [phone] Narcs: [facility] in [place] Transport: Time for pickup changed to today 01/23 at 2 pm in the MA lounge. Nurse, Stacey DANIELS (facility) and spouse notified of new time. [...] PCP name and Address: Chase Gunn MD [address] [place] [address] / [place] [address] Referring provider name and address: Chase Gunn MD [address] [place] [address] Chief Concern, Brief History of Present Illness, [...] at discharge. She was discharged to a fdc facility with a plan for continued IV [...] 01/31/2025 1:00 PM Dona Nava PA [id number] [place] Test Results Pending At Discharge Pending Labs [...] present. Discharge Disposition/Condition Disposition: Nursing facility (specify) [facility] Condition: Stable (s/sx potential problems absent or [...] Ongoing, Progressing Intervention: Promote Activity and Functional Dafter Flowsheets Taken 01/22/20252050 Self-Care Promotion: independence encouraged BADL personal objects within reach Taken 01/22/20252017 Activity Assistance Provided: assistance, 2 people * Care Plan Asher Sparks DO - 01/22/2025 5:11 PM EST Spoke with pharmacy; daptomycin is not available at receiving facility so patient will remain on vancomycin post discharge. New OPAT note has been submitted. Please refer to OPAT note for complete details. Asher Walker DO Infectious Disease Fellow, PGY-5 Pager: [phone] Epic Chat Preferred * Asher Fraser DO [...] OPAT Team Attn: Dr. Sinha Fax #: [phone] Appointments: Co-clinic with JORGE Keating, & Dr. Sinha on 01/31/2025 at 1:00pm at: [facility]: [address] [place] [address] (Select Option 3 for IV Antibiotic / PICC line related issues) For questions regarding OPAT prior to discharge, reach out to the OPAT team via Insight Direct (ServiceCEO) Secure Chat (Group: OPAT Referral Team). For all questions regarding OPAT after discharge should be directed to the OPAT Team at (Select Option 3 for IV Antibiotics/PICC Issues) between 8am-5pm. After 5 pm, or during weekends/ holidays, please call the paging shotgun shell loading machine operator at to reach the on-call ID [...] illness (recent C. diff), transferred here to [facility] from OSH for MRSA bacteremia. Spinal cord [...] Note Rosa Perdomo 74 y.o. female CSN: [id number] Admission: 01/15/2025 9:57 PM Primary Problem: Postoperative sepsis (CMS/[facility]) Anticipated Discharge Date: 01/21 Has Discharge Plans Changed? No - [facility] Medicare Second Notice: Medicare Medicare Second Notice?: Yes Date Second Notice Completed: 01/22/25 Time Second Notice Completed: 1111 Medicare Second Notice Recieved By: Deion at [...] accept. Will continue on Vancomycin. PICC in place.Per MD, patient is medically ready for discharge. DESTINEY - Has Acute recs, but request DESTINEY at [facility]. Per admissions (Stacey), they cannot accept patient on Daptomycin. Discussed with , will remain on Vancomycin through 02/13/24. Number for report: [phone] (Unit 1) DC Summary: [phone] Narcs: [facility] in [place] Transport: Patient not qualifying for ambulance. Concerns over transfers into vehicle. Meets < 300% [facility]PG. W/C Transport arranged via CM office with [facility] for 01/23 at 11 am. Nurse, Stacey DANIELS (facilility) and Patients spouse notified. CM will continue to follow for discharge needs. Amanda Meza, RN * Progress Notes - Kelsy-Sierra Flores, PharmD - 01/22/2025 8:16 AM EST [...] Review Outcome: Ongoing, Progressing Flowsheets (Taken 01/22/2025 6276) Progress: no change Outcome Evaluation: Care plan reviewed with patient Goal: Patient-Specific Goal (Individualized) Outcome: Ongoing, Progressing Flowsheets (Taken 01/22/2025 1484) Patient/Family-Specific Goals (Include Timeframe): Patients pain will [...] Promote and Optimize Oral Intake Flowsheets (Taken 01/22/2025747) Oral Nutrition Promotion: social interaction promoted Nutrition [...] Prevent or Manage Infection Flowsheets (Taken 01/22/2025 0748) Infection Management: aseptic technique maintained Fever Reduction/Comfort Measures: lightweight clothing lightweight bedding Isolation Precautions: precautions maintained Problem: Self-Care Deficit Goal: Improved Ability to Complete Activities of Daily Living Outcome: Ongoing, Progressing Intervention: Promote Activity and Functional Dafter Flowsheets Taken 01/22/2025 0756 Adaptive Equipment Use: use encouraged Taken 01/22/2025 0748 Activity Assistance Provided: assistance, 2 people Self-Care Promotion: independence encouraged adaptive equipment use encouraged * Care Plan - Christina Fritz RN - 01/22/2025 2:28 AM EST Problem: Adult Inpatient Plan of Care Goal: Plan of Care Review Outcome: Ongoing, Progressing Flowsheets (Taken 01/22/2025 022) Progress: no change Outcome Evaluation: pt agrees [...] HOB elevated Taken 01/21/2025 1128 by David Wheeler RN Pressure Reduction Techniques: heels elevated off bed [...] Ongoing, Progressing Intervention: Promote Activity and Functional Dafter Flowsheets Taken 01/22/2025224 Self-Care Promotion: independence encouraged [...] illness (recent C. diff), transferred here to [facility] from OSH for MRSA bacteremia. Spinal cord [...] Ongoing, Progressing Intervention: Promote Activity and Functional Dafter Flowsheets (Taken 01/21/2025 1128) Activity Assistance Provided: assistance, 2 people Adaptive [...] Ongoing, Progressing Intervention: Promote Activity and Functional Dafter Flowsheets Taken 01/20/20252101 Self-Care Promotion: independence encouraged BADL personal objects within reach Taken 01/20/20251999 Activity Assistance Provided: assistance, 2 people * Procedures - Cailin Ha RN - 01/20/2025 5:07 PM ESTAssociated Order(s): Insert PICC line Insert PICC line Date/Time: 01/20/2025 5:08 PM Performed by: Cailin Ha RN Authorized by: Cleve Deleon MD [place] Protocol: Verbal consent obtained?: Yes Written consent [...] preference. Patient position: Supine Catheter Lot #: [id number] Catheter medical device sales consultant: [employer] Catheter placed: Single lumen Catheter size: 4 [...] illness (recent C. diff), transferred here to [facility] from OSH for MRSA bacteremia. Spinal cord [...] Review Outcome: Ongoing, Progressing Flowsheets (Taken 01/20/2025 101) Progress: no change Outcome Evaluation: pt agreeble [...] and Manage Fall Risk Flowsheets (Taken 01/20/2025 101) Safety Promotion/Fall Prevention: [...] Pain and Promote Comfort Flowsheets (Taken 01/20/2025 101) Pain Management Interventions: medication (see MAR) Intervention: Provide Person-Centered Care Flowsheets (Taken 01/20/2025 1013) Trust Relationship/Rapport: questions encouraged Problem: Skin Injury [...] Intervention: Identify and Manage Contributors Flowsheets (Taken 01/20/2025 101) Medication Review/Management: high-risk medications identified Self-Care Promotion: independence encouraged Intervention: Promote Injury-Free Environment Flowsheets (Taken 01/20/2025 101) Safety Promotion/Fall Prevention: room organization consistent safety round/check completed Problem: Infection Goal: Absence of Infection Signs and Symptoms Outcome: Ongoing, Progressing Intervention: Prevent or Manage Infection Flowsheets (Taken 01/20/20251012) Infection Management: aseptic technique maintained Fever Reduction/Comfort Measures: lightweight bedding lightweight clothing Isolation Precautions: precautions maintained Problem: Self-Care Deficit Goal: Improved Ability to Complete Activities of Daily Living Outcome: Ongoing, Progressing Intervention: Promote Activity and Functional Dafter Flowsheets (Taken 01/20/20251012) Activity Assistance Provided: assistance, [...] encouraged Intervention: Promote Injury-Free Environment Flowsheets (Taken 01/20/2025199) Safety Promotion/Fall Prevention: activity supervised clutter-free environment maintained fall prevention program maintained nonskid shoes/slippers when out of bed safety round/check completed Problem: Infection Goal: Absence of Infection Signs and Symptoms Outcome: Ongoing, Progressing Intervention: Prevent or Manage Infection Flowsheets (Taken 01/20/2025 020) Infection Management: aseptic technique maintained Fever Reduction/Comfort Measures: lightweight bedding lightweight clothing Isolation Precautions: precautions maintained Problem: Self-Care Deficit Goal: Improved Ability to Complete Activities of Daily Living Outcome: Ongoing, Progressing Intervention: Promote Activity and Functional Dafter Flowsheets Taken 01/20/2025 020 Self-Care Promotion: BADL personal objects within reach [...] illness (recent C. diff), transferred here to [facility] from OSH for MRSA bacteremia. Spinal cord [...] Note Rosa Perdomo 74 y.o. female CSN: [id number] Admission: 01/15/2025 9:57 PM Primary Problem: Postoperative sepsis (CMS/HCC) Anticipated Discharge Date: 01/21 Has Discharge Plans Changed? No - home or agreeable to SNF (requesting [facility] if needed) Medicare Second Notice: Medicare Medicare Second Notice?: Yes Date Second Notice Completed: 01/19/25 Time Second Notice Completed: 1011 Medicare Second Notice Recieved By: pieroNA at this time, >48 hours till discharge. [...] placed. PT/OT recs for Acute. Patient requesting [facility] because it is closer to home. Spouse had also previously indicated that Is where they would want her to go. Spoke with Stacey at facility (admissions) who is reviewing. Referrals also sent to other facilities. CM will continue to follow for discharge needs. Amanda Meza RN * Progress Notes - Renae Resendiz, BARTOLO, DNP - 01/19/2025 11:01 AM EST Images [...] is no recent study available for direct chrb-iw-whuz comparison. CT Lumbar Spine w IV Contrast [...] Value Units Date/Time Blood Culture (Aerobic/Anaerobet Set) [[id number]] Collected: 01/18/25 1323 Order Status: Sent Specimen: Blood, Venous Fungal Culture, Routine [[id number]] Collected: 01/16/25 1605 Order Status: Completed Specimen: Abscess from Back, Lower Updated: 01/18/25 1041 Culture No Fungal Growth <1 Week Fungal Culture, Tissue and DEANDRE [[id number]] Collected: 01/16/25 1614 Order Status: Completed Specimen: Foreign Body from Back, Lower Updated: 01/18/25 1022 Culture Reading Mycological 4 Weeks No Fungal Growth <1 Week DEANDRE Source not suitable for smear Blood Culture (Aerobic/Anaerobet Set) [[id number]] Collected: 01/16/25 0128 Order Status: Completed Specimen: Blood from Hand, Right Updated: 01/18/25 0403 Culture No growth at day 2 Routine Culture and Gram Stain [[id number]] (Abnormal) Collected: 01/16/25 161 Order Status: Completed Specimen: Foreign Body from Back, Lower Updated: 01/17/25 1327 Culture Heavy Growth 4+ Biotype 1 Staphylococcus aureus 2+ Biotype 2 Staphylococcus aureus Abscess Culture and Gram Stain [[id number]] (Abnormal) Collected: 01/16/25 160 Order Status: Completed Specimen: Abscess from Back, [...] Non Respiratory Source and Acid Fast Stain [[id number]] Collected: 01/16/25 161 Order Status: Completed Specimen: Foreign Body from Back, Lower Updated: 01/17/25 0557 Acid Fast Stain Source not suitable for smear Anaerobic Culture [[id number]] Collected: 01/16/25 160 Order Status: Sent Specimen: Abscess from Back, Lower Updated: 01/16/25 1710 AFB Culture, Non Respiratory Source and Acid Fast Stain [[id number]] Collected: 01/16/25 160 Order Status: Canceled Specimen: Abscess from Back, Lower Updated: 01/16/25 1710 Fungal Culture, Sterile Body Fluid (NOT CSF) and DEANDRE [[id number]] Collected: 01/16/25 1605 Order Status: Canceled Specimen: Abscess from Back, Lower Updated: 01/16/251709 Anaerobic Culture [[id number]] Collected: 01/16/25 1614 Order Status: Sent Specimen: Foreign Body from Back, Lower Updated: 01/16/25 171 Antimicrobials: -- Vancomycin IV 1500mg Q24H 01/16 - present -- Cefepime IV 2g Q12H 01/16 - 01/17 -- Metronidazole PO 500mg Q8H 01/16 - 01/17 Assessment: Patient Summary: Rosa Perdomo is a 74 y.o. female with history of DM2, hypertension, depression and anxiety, GERD was transferred to [facility] from outside facility for concern of MRSA bacteremia on 01/15. About 3 weeks ago she underwent spinal cord stimulator placement for spinal arthritis pain management. Blood cultures obtained at the facility (01/14) showed MRSA and she was transferred to [facility] for further management. Blood cultures collected at [facility] on 01/16 show NGTD. VINCENT took her [...] in their operative note. No indication of CAR BODY INSPECTOR involvement. OPAT orders are in - will [...] Note Rosa Perdomo 74 y.o. female CSN: [id number] Room/Bed 135/135A Nutrition evaluation type: follow-up Reason for evaluation: Hospital course: 74 y/o F presented as a transfer from OSH for MRSA bacteremia. 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 S/p device explantation on 01/16/25 with Neurosurgery. [...] Supplemental oxygen O2 Delivery Method: Nasal cannula [place] Coma Scale Score: 15 Isael Scale Score: [...] 37.74 Weight Evaluation: Obese-Class 2 (BMI 35-39.9) [place] Body Weight (kg): 52.2 Percent [place] Body Weight: 185 Adjusted Body Weight (kg): 63.4 Wt Readings from Last 10 Encounters: 01/16/25 96.6 kg (213 lb) 07/30/22 89.8 kg (198 lb) Estimated Needs: Metabolic Cart Study Results: Current Nutrition Intake: Diet Order: Adult Diet Diet Texture: Regular Adult Carbohydrate Restriction: Consistent CHO 2 (1325-7946 Feng, 80 g/meal) Percent Meals Eaten (%): 82% avg x 4 meals Diet Experience and Nutrition History: Diet Education Provided: Will monitor Pertinent home medications: Lutheran needs: Nutrition Focused Physical Exam: Physical exam [...] sodium chloride, 10 mL/hr, Last Rate: Stopped (01/19/25810) [5] PRN medications: bisacodyl, clonazePAM, glucose OR [...] Ongoing, Progressing Intervention: Promote Activity and Functional Dafter Flowsheets Taken 01/19/2025912 Adaptive Equipment Use: used [...] min Date/Time of Most Recent Dose: 01/19/25 0300 C1 random (ug/mL): 39.7 mcg/mL C2 trough [...] Ongoing, Progressing Intervention: Promote Activity and Functional Dafter Flowsheets Taken 01/18/20251958 Self-Care Promotion: independence encouraged [...] illness (recent C. diff), transferred here to [facility] from OSH for MRSA bacteremia. Spinal cord [...] 01/18/2025 2:30 PM EST Pastoral Care Note Art Specialist made follow up visit with Rosa and introductory visit with her family. They are aware ofPastoral Services and availability. Referral From: Art Specialist Initiated Pastoral Care Provided For: Patient, Spouse, Child(odalis) Patient Profile: Consult Reasons: Initial visit Spiritual Assessment: Support Systems/ Spiritual Resources: Prayer Spiritual Needs: Emotional support Spiritual Issues: Change/ transition Interventions: Interventions Provided: Introduced Patient/Family to Art Specialist Services Pastoral Care Outcomes: Patient Outcomes: Is knowledgeable about [employer] Off[employer]arer Services Giancarlo Pradhan * Procedures - Ethel Steward RN - 01/18/2025 12:54 PM ESTAssociated Order(s): Insert peripheral IV Insert peripheral IV Performed by: Ethel Steward, RN Authorized by: Cleve Deleon MD Hand [...] via PACS * Progress Notes - Renae Resendiz, ASSOCIATE APPLICATION DEVELOPER, EDVIN - 01/18/2025 12:53 PM EST Images from [...] is no recent study available for direct avdd-sy-cedh comparison. CT Lumbar Spine w IV Contrast [...] Value Units Date/Time Blood Culture (Aerobic/Anaerobet Set) [[id number]] Collected: 01/18/25 1323 Order Status: Sent Specimen: Blood, Venous Fungal Culture, Routine [[id number]] Collected: 01/16/25 1605 Order Status: Completed Specimen: Abscess from Back, Lower Updated: 01/18/25 1041 Culture No Fungal Growth <1 Week Fungal Culture, Tissue and DEANDRE [[id number]] Collected: 01/16/25 1614 Order Status: Completed Specimen: Foreign Body from Back, Lower Updated: 01/18/25 1022 Culture Reading Mycological 4 Weeks No Fungal Growth <1 Week DEANDRE Source not suitable for smear Blood Culture (Aerobic/Anaerobet Set) [[id number]] Collected: 01/16/25 0128 Order Status: Completed Specimen: Blood from Hand, Right Updated: 01/18/25 0403 Culture No growth at day 2 Routine Culture and Gram Stain [[id number]] (Abnormal) Collected: 01/16/25 1614 Order Status: Completed Specimen: Foreign Body from Back, Lower Updated: 01/17/25 1327 Culture Heavy Growth 4+ Biotype 1 Staphylococcus aureus 2+ Biotype 2 Staphylococcus aureus Abscess Culture and Gram Stain [[id number]] (Abnormal) Collected: 01/16/25 1605 Order Status: Completed [...] Non Respiratory Source and Acid Fast Stain [[id number]] Collected: 01/16/251613 Order Status: Completed Specimen: Foreign Body from Back, Lower Updated: 01/17/25 0557 Acid Fast Stain Source not suitable for smear Anaerobic Culture [[id number]] Collected: 01/16/251604 Order Status: Sent Specimen: Abscess from Back, Lower Updated: 01/16/251709 AFB Culture, Non Respiratory Source and Acid Fast Stain [[id number]] Collected: 01/16/251604 Order Status: Canceled Specimen: Abscess from Back, Lower Updated: 01/16/251709 Fungal Culture, Sterile Body Fluid (NOT CSF) and DEANDRE [[id number]] Collected: 01/16/251604 Order Status: Canceled Specimen: Abscess from Back, Lower Updated: 01/16/251709 Anaerobic Culture [[id number]] Collected: 01/16/251613 Order Status: Sent Specimen: Foreign Body from Back, Lower Updated: 01/16/251709 Antimicrobials: -- Vancomycin IV 1500mg Q24H 01/16 - present -- Cefepime IV 2g Q12H 01/16 - 01/17 -- Metronidazole PO 500mg Q8H 01/16 - 01/17 Assessment: Patient Summary: Rosa Perdomo is a 74 y.o. female with history of DM2, hypertension, depression and anxiety, GERD was transferred to [facility] from outside facility for concern of MRSA bacteremia on 01/15. About 3 weeks ago she underwent spinal cord stimulator placement for spinal arthritis pain management. Blood cultures obtained at the facility (01/14) showed MRSA and she was transferred to [facility] for further management. Blood cultures collected at [facility] on 01/16 show NGTD. NSGY took her [...] in their operative note. No indication of CAR BODY INSPECTOR involvement. OPAT orders are in - will [...] admitted 01/15/2025 for work-up of Postoperative sepsis (CMS/HCC). Problem List Active Hospital Problems Diagnosis Date [...] kidney disease) stage 3, GFR 30-59 ml/min ([facility]), Depression, Diabetes mellitus, Dyspnea, HLD (hyperlipidemia), HTN [...] days. Participants in Care Family/Caregiver Present: No Report Specialist: Not Applicable Presentation Oxygen Therapy: Supplemental oxygen [...] Spouse Level of Mobility: Ambulatory- community Mobility Dafter: Independent gait without device History of Falls: [...] Mobility Bed Mobility Exam: Scooting/Bridging Level of Dafter: Dependent (scooting hips forward to edge of bed) Physical/Nonphysical Assist: Verbal Cues, Nonverbal cues (demo/gestures), Maximal cues, Additional assist utilized for safety Bed Mobility Exam: Supine to Sit Level of Dafter: Moderate assist (50% patient's effort) Physical/Nonphysical Assist: HOB elevated, Moderate cues, Verbal Cues Assistive Device: Bed rails Transfers Transfer Exam: Sit to stand Level of Dafter: Moderate assist (50% patient's effort) (x2 reps from edge of bed - 1st rep HOME [employer] LPN, 2nd rep to RW) Physical/Nonphysical Assist: Verbal Cues, Maximal cues, Additional assist utilized for safety Assistive Device: Walker, rolling Transfer Exam: Stand to Sit Level of Dafter: Moderate assist (50% patient's effort) (poorly controlled descent) Physical/Nonphysical Assist: Verbal Cues, Maximal cues, Additional assist utilized for safety Assistive Device: Walker, rolling Transfer Exam: Bed to Chair/Chair to Bed Level of Dafter: Moderate assist (50% patient's effort) (with significantly [...] a helper. 5 Set-up or Clean-up Assistance Portis sets up or cleans up; patient completes activity. Portis assists only prior to or following the activity. 4 Supervision or touching assistance Portis provides verbal cues and/or touching/steadying and/or contact guard assistance as patient completes activity. Assistance may be provided throughout the activity or intermittently. 3 Partial/Moderate Assistance Portis does LESS THAN HALF the effort. Portis lifts, holds or supports trunk or limbs, but provides less than half the effort. 2 Substantial/Maximal Assistance Portis does MORE THAN HALF the effort. Portis lifts or holds trunkor limbs and provides more than half the effort. 1 Dependent Portis does ALL of the effort. Patient does [...] at 1:59 PM. * Progress Notes - GeronimoHarshilBurton K - 01/18/2025 11:00 AM EST Physical Therapy Evaluation Patient Name: Rosa Perdomo Today's Date: 01/18/2025 PT Discharge Recommendations: Acute rehab Equipment Recommended: Defer to facility History Rosa Perdomo is 74 y.o. female admitted 01/15/2025 for work-up of Postoperative sepsis ([facility]). Problem List Active Hospital Problems Diagnosis Date Noted Date Diagnosed Postoperative sepsis ([facility]) 01/16/2025 Mixed hyperlipidemia 01/16/2025 Cellulitis of back except buttock 01/16/2025 Major depressive disorder with single episode, in remission ([facility]/HCC) 01/16/2025 MRSA bacteremia 01/16/2025 MADELEINE (iron deficiency anemia) 01/16/2025 Gastroesophageal reflux disease without esophagitis 01/16/2025 Transaminitis 01/16/2025 Hypertension 02/29/2024 Diabetes mellitus 02/29/2024 Procedures 01/16/2025 Procedures: EXPLORATION, WOUND, POSSIBLE SCS REMOVAL/REVISION, ALL OTHER INDICATED PROCEDURES Past Medical History Patient has a past medical history of Abnormal EKG, Anemia, Breast cyst, CKD (chronic kidney disease) stage 3, GFR 30-59 ml/min ([facility]), Depression, Diabetes mellitus, Dyspnea, HLD (hyperlipidemia), HTN (hypertension), Mitral valve prolapse, Paroxysmal A-fib, RSV (respiratory syncytial virus infection), Sciatica, SVT (supraventricular tachycardia) ([facility]), and Trigger finger. Past Surgical History Patient has a past surgical history that includes Colonoscopy; Esophagogastroduodenoscopy; Wrist surgery; Hernia repair; and Cholecystectomy. Precautions Medical Precautions: Fall precautions, Seizure precautions Subjective Pt was agreeable to therapy today. Pt was glad to get to the chair today to brush her hair and her teeth. Participants in Care Family/Caregiver Present: No Report Specialist: Not Applicable Presentation Oxygen Therapy: Supplemental oxygen [...] Spouse Level of Mobility: Ambulatory- community Mobility Dafter: Independent gait without device History of Falls: [...] Mobility Bed Mobility Exam: Scooting/Bridging Level of Dafter: Dependent (scooting hips forward to edge of bed) Physical/Nonphysical Assist: Verbal Cues, Nonverbal cues (demo/gestures), Maximal cues, Additional assist utilized for safety Bed Mobility Exam: Supine to Sit Level of Dafter: Moderate assist (50% patient's effort) Physical/Nonphysical Assist: HOB elevated, Moderate cues, Verbal Cues Transfers Transfer Exam: Sit to stand Level of Dafter: Moderate assist (50% patient's effort) (x2 reps from edge of bed - 1st rep [employer] LPN, 2nd rep to RW) Physical/Nonphysical Assist: Verbal Cues, Maximal cues, Additional assist utilized for safety Assistive Device: Walker, rolling Transfer Exam: Stand to Sit Level of Dafter: Moderate assist (50% patient's effort) (poorly controlled descent) Physical/Nonphysical Assist: Verbal Cues, Maximal cues, Additional assist utilized for safety Assistive Device: Walker, rolling Transfer Exam: Bed to Chair/Chair to Bed Level of Dafter: Moderate assist (50% patient's effort) (with significantly [...] below. Therapeutic Exercise (8 minutes) Access Code: [email or web address] URL: [email or web address] Date: 01/18/2025 Prepared by: Pk Exercises - [...] exercises. Pt demonstrated verbal understanding. Standardized Assessments [facility] 6-Clicks Mobility Assessment Difficulty patient has turning [...] 3-5 steps with a railing?: A lot [facility] 6-Clicks Mobility Assessment Total : 12 No [...] Pt will demonstrate ambulating 15 ft with Antonia and use of LRAD. 2 [...] Note Rosa Perdomo 74 y.o. female CSN: [id number] Admission: 01/15/2025 9:57 PM Primary Problem: Postoperative sepsis (CMS/HCC) Anticipated Discharge Date: 01/23 Has Discharge Plans Changed? No - home or agreeable to SNF (requesting [facility] if needed) Medicare Second Notice: NA [...] orders and - eval pending. Patient requesting [facility] if needed. CM will continue to follow for discharge needs. Addendum: PT/OT recs for Acute rehab. Difference between Acute and Subacute explained to patient. Patient states she would like to go to [facility] as it is closer to home. Attempted to reach spouseper patient request to also discuss with him. Unable to reach, unable to leave . Referrals to be made for [facility] when therapy notes are in. VM left for admissions at [facility]. Amanda Meza RN * Care Plan - [...] supervised Intervention: Prevent Skin Injury Flowsheets Taken 01/18/202535 Skin Protection: incontinence pads utilized Taken 01/18/2025 [...] Pain and Promote Comfort Flowsheets (Taken 01/17/2025 8284) Pain Management Interventions: medication (see MAR) Intervention: [...] 01/17/2025 8:45 PM EST Pastoral Care Note Art Specialist visited with Rosa, she reports she wants a visit but this is not the best time. Chaplainwill follow up tomorrow as able. Referral From: Art Specialist Initiated Pastoral Care Provided For: Patient Patient Profile: Consult Reasons: Initial visit Spiritual Assessment: Support Systems/ Spiritual Resources: Family Spiritual Needs: Emotional support Interventions: Interventions Provided: Introduced Patient/Family to Art Specialist Services Pastoral Care Outcomes: Patient Outcomes: Is knowledgeable about [employer] Giancarlo Pradhan * Progress Notes - Cleve Deleon [...] illness (recent C. diff), transferred here to [facility] from OSH for MRSA bacteremia. Spinal cord [...] #) Primary Hypertension Plan: -resume coreg #) MADELIENE - H/H = 9.4 (L)/28.1 (L) Plan: [...] Plan: OPAT at a medical/nursing facility (e.g, LTAC,[facility], Swing Bed, Nursing facility) Darrius Valiente RN [...] Single Lumen PICC Patient Specific Outpatient Circumstances: [address] [place] [id number] Contact information Rosa Perdomo [phone] (home) Extended Emergency Contact Information Primary Emergency Contact: Westley Perdomo Relation: Spouse Report Specialist needed? No Secondary Emergency Contact: Oumou Ocasio Relation: Daughter Outpatient services (including home infusion, home health, facility referral: See recent [facility] case management/social work note for finalization of services ID follow up appointment: Future Appointments Date Time Provider Department Center 01/31/2025 1:00 PM Dona Nava PA [id number] [place] Patient Assessment After review and discussion with the ID physician, the patient is currently enrolled in the Modified OPAT program. Patient is unable to administer IV antimicrobial therapy at home. But is appropriated for the Modified OPAT program. Please direct questions to OPAT referral team, another member of the OPAT team, or the ID consulting provider via secure chat or staff messaging in [employer] (ServiceCEO). OPAT Modified program for IV antimicrobial therapy [...] most recent note for this information. Darrius RAMIREZ RN 01/17/2025 * Query Clarification Note - [...] Other, please describe further: OPAT at a medical/nursingfacility (e.g, LTAC,[facility], Swing Bed, Nursing facility) Patient [...] of discharge. Please fax all labs to: [facility] ID OPAT Team Attn: Willie Shrestha (insert ID provider) Fax #: [phone] Appointments: (Co-clinic 01/31/2025 Insert ID Provider; date and time) at: [facility]: [address] [address] (Select Option 3 for IV Antibiotic / PICC line related issues) For questions regarding OPAT prior to discharge, reach out to the OPAT team via [employer] (ServiceCEO) Secure Chat (Group: OPAT Referral Team). For all questions regarding OPAT after discharge should be directed to the OPAT Team at (Select Option 3 for IV Antibiotics/PICC Issues) between 8am-5pm. After 5 pm, or during weekends/ holidays, please call the paging shotgun shell loading machine operator at to reach the on-call ID [...] Note Rosa Perdomo 74 y.o. female CSN: [id number] Admission: 01/15/2025 9:57 PM Primary Problem: Postoperative sepsis (CMS/HCC) Anticipated Discharge Date: 01/23 Has Discharge Plans Changed? No - home or agreeable to SNF (requesting [facility] if needed) Medicare Second Notice: NA [...] orders and - eval pending. Patient requesting [facility] if needed. CM will continue to follow for discharge needs. Amanda Meza RN * Progress Notes - Collins Thorne [...] Please call with any questions or concerns. [phone] Collins Thorne MD Resident Physician, PGY-1 Department of Neurosurgery [facility] Cosigned by Fransisco Farley MD at 01/17/2025 [...] Review Outcome: Ongoing, Progressing Flowsheets (Taken 01/17/2025 0315) Progress: no change Outcome Evaluation: POC reviewed [...] Identify and Manage Fall Risk Flowsheets (Taken 01/17/2025 031) Safety Promotion/Fall Prevention: activity supervised assistive device/personal items within reach clutter-free environment maintained fall prevention program maintained lighting adjusted nonskid shoes/slippers when out of bed safety round/check completed Intervention: Prevent Skin Injury Flowsheets (Taken 01/17/2025 031) Body Position: weight shifting Skin Protection: transparent [...] Progressing Intervention: Optimize Skin Protection Flowsheets (Taken 01/17/2025 031) Activity Management: activity adjusted per tolerance Pressure [...] PM EST Operative Note Date: 01/16/2025 Location: [place] OR Name: Rosa Perdomo, : 1950, Diagnoses: Pre-op Diagnosis MRSA bacteremia Infection of spinal cord stimulator, initial encounter Wound infection Post-op Diagnosis MRSA bacteremia Infection of spinal cord stimulator, initial encounter Wound infection Procedure(s): Explantation of entire spinal cord stimulator system (leads and IPG) Irrigation and debridement of midline lumbar and right paraspinal wounds Attending Surgeon(s): * Fransisco Farley - Primary Hotbed Lever Operator(s): * Janene Terrell MD - Resident - [...] 01/16/25 0800 Output (mL) 1000 mL 01/16/25 0900 Specimen: Specimens ID Source Frozen? A Back, [...] depression and anxiety, GERD was transferred to [facility] from outside facility for concern of MRSA [...] showed MRSA and she was transferred to [facility] for further management. It appears that prior to the tr [facility] a PICC was placed while blood cultures were pending. Upon admission at [facility], no discharge was noted, but extensive cellulitis [...] Value Units Date/Time Blood Culture (Aerobic/Anaerobet Set) [[id number]] Collected: 01/16/25 0128 Order Status: Completed Specimen: Blood from Hand, Right Updated: 01/16/25 0501 Culture Culture in lab Antimicrobials: -- Vancomycin [id number] 01/16 - present -- Cefepime IV 2g Q12H 01/16 - present -- Metronidazole PO 500mg Q8H 01/16 - present Assessment: Patient Summary: Rosa Perdomo is a 74 y.o. female with history of DM2, hypertension, depression and anxiety, GERD was transferred to [facility] from outside facility for concern of MRSA bacteremia on 01/15. About 3 weeks ago she underwent spinal cord stimulator placement for spinal arthritis pain management. Blood cultures obtained at the facility (01/14) showed MRSA and she was transferred to [facility] for further management. Blood cultures collected at [facility] on 01/16 show NGTD. NSGY took her to the OR yesterday for [...] in consultation. GENERAL ID will follow. Renae Resendiz, ASSOCIATE APPLICATION DEVELOPER, DNP Infectious Diseases [1] Past Medical History: [...] and treatment * Care Plan - Amanda Mcclure RN - 01/16/2025 12:30 PM EST Problem: [...] Anterior;Left;Upper;Inner (Active) Date First Assessed/Time First Assessed: 01/16/25 0426 Primary Wound Type: Traumatic Secondary Wound Type [...] Groin (Active) Date First Assessed/Time First Assessed: 01/16/25 0428 Primary Wound Type: Irritant Contact Dermatitis Location: Groin Assessments 01/16/2025 10:50 AM Wound Image Patient endorses burning; cleansed z-guard to assess; red rash present with satellite lesions. Peeling moist skin to base of groin fold. Recommend cleansing and using miconazole nitrate ointment BID. Wound Assessment Wagoner;Denuded Rebecca-Wound Assessment Red;Rash Treatments Other (Comment) (ordered [...] Manage VTE (Venous Thromboembolism) Risk Flowsheets (Taken 01/16/2025799) VTE Prevention/Management: SCDs (sequential compression devices) on Goal: Optimal Comfort and Wellbeing Outcome: Ongoing, Progressing Intervention: Provide Person-Centered Care Flowsheets (Taken 01/16/20251199) Trust Relationship/Rapport: care explained questions encouraged choices [...] Progressing Intervention: Promote Injury-Free Environment Flowsheets (Taken 01/16/2025799) Safety Promotion/Fall Prevention: activity supervised assistive device/personal [...] Reduction/Comfort Measures: lightweight bedding lightweight clothing Taken 01/16/2025799 Isolation Precautions: contact precautions maintained * Progress Notes - Amanda Meza RN - 01/16/2025 10:21 AM EST Case Management Adult Initial Progress Note Rosa Perdomo 74 y.o. female CSN: [id number] Admission: 01/15/2025 9:57 PM Primary Problem: Postoperative sepsis (CMS/HCC) Stock Trader reviewed chart and spoke with patient and spouse at bedside to complete this Initial Case Management Assessment. PCP: Chase Gunn MD Emergency Contact: Extended Emergency Contact Information Primary Emergency Contact: Westley Perdomo Relation: Spouse Report Specialist needed? No Secondary Emergency Contact: Oumou Ocasio Relation: Daughter Insurance: Primary Visit Coverage Payer Plan Sponsor Code Group Number Group Name MEDICARE MEDICARE A & B -- -- -- Primary Visit Coverage Subscriber Subscriber ID Subscriber Name Subscriber SSN Subscriber Address [id number] ROSA PERDOMO [id number] [place] [address] Secondary Visit Coverage Payer Plan Sponsor Code Group Number Group Name [facility] -- [id number] -- Secondary Visit Coverage Subscriber Subscriber ID Subscriber Name Subscriber SSN Subscriber Address [id number] WESTLEY PERDOMO -- [address] [place] [address] Patient information: Primary Caregiver: Self Accompanied by/Relationship: spouse Support System: Immediate family Daily Living Activities: Functional Status: Independent Living Arrangements: Spouse/Significant other Type of Residence: Private residence, Multi Level (lives only on first floor, ramp entry) [address] [place] [address] Smoker in the Home?: Yes Current DME: [...] HD and HI Living Will/Advance Directive/Power of Housing Management Representative /Guardian: Have you reviewed your Advance Directive [...] is recommended, would like to go to [facility]. CM will continue to follow for discharge needs. Amanda Meza RN * Consults - Nani Leija RD - 01/16/2025 9:06 AM ESTAssociated Order(s): IP CONSULT TO NUTRITION SERVICES Adult Nutrition Evaluation Note Rosa Perdomo 74 y.o. female CSN: [id number] Room/Bed 135/135A Nutrition evaluation type: assessment Reason for evaluation: provider consult Hospital course: 74 y/o F presented as a transfer from OSH for MRSA bacteremia. 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 To OR 01/16 for exploration vs removal [...] (98.6 ??F) Oxygen Therapy: None (Room air) Augusto Coma Scale Score: 15 Isael Scale Score: [...] 37.81 Weight Evaluation: Obese-Class 2 (BMI 35-39.9) [place] Body Weight (kg): 52.2 Percent [place] Body Weight: 185 Adjusted Body Weight (kg): 63.4 Wt Readings from Last 10 Encounters: 01/15/25 96.8 kg (213 lb 6.5 oz) 07/30/22 89.8 kg (198 lb) Estimated Needs: Metabolic Cart Study Results: Current Nutrition Intake: Diet Order: NPO Diet Experience and Nutrition History: Diet Education Provided: Will monitor Pertinent home medications: Lutheran needs: Nutrition Focused Physical Exam: Physical exam [...] Please call with any questions or concerns. [phone] Collins Thorne MD Resident Physician, PGY-1 Department of Neurosurgery [facility] Attending Attestation - Fransisco Yarbrough MD: I [...] reach Intervention: Prevent Skin Injury Flowsheets Taken 01/16/2025 0525 Skin Protection: transparent dressing maintained Taken 01/16/2025 0400 Body Position: weight shifting Intervention: Prevent and Manage VTE (Venous Thromboembolism) Risk Flowsheets (Taken 01/16/2025 0106) VTE Prevention/Management: bilateral SCDs (sequential compression devices) on Intervention: Prevent Infection Flowsheets (Taken 01/16/2025 05) Infection Prevention: environmental surveillance performed equipment surfaces [...] Intervention: Identify and Manage Contributors Flowsheets (Taken 01/16/2025524) Medication Review/Management: medications reviewed Self-Care Promotion: independence [...] Intervention: Prevent or Manage Infection Flowsheets (Taken 01/16/2025524) Infection Management: aseptic technique maintained Fever Reduction/Comfort [...] will continue to follow. Submitted by: Rajeev Vasquez, PharmD 01/16/2025 1:30 AM * H&P - Naina Dubois APRN - 01/16/2025 12:41 AM EST Images from the original note were not included. Hospital Medicine History and Physical Chief Complaint: Cellulitis of surgical site and fever History of Present Illness: Rosa Perdomo is a 74 y.o. year-old female with PMH DM2, HTN, depression with anxiety, seizure disorder, GERD, acute diarrheal illness (recent C. diff), transferred here to [facility] from OSH for MRSA bacteremia. Spinal cord [...] Family History: Family History[3] Social History: Living: [address] [place] [address] with family Marital Status: Alcohol Use: denies [...] for: O2SAT , BD , BE , RXC8AHE , PCO2 , PH , PO2 , RJD9EPYM Venous Blood Gas: No results found for: BDVEN , BEVEN , HMP4WMW , EWH3DOW , PO2VEN , V1RRUUYE , VWP2QCFXQUK Microbiology: Results Procedure Component Value Units Date/Time Blood Culture (Aerobic/Anaerobet Set) [[id number]] Order Status: Sent Specimen: Blood, Venous Imaging [...] illness (recent C. diff), transferred here to [facility] from OSH for MRSA bacteremia. Spinal cord [...] L spine w/wo contrast pending -LR @ 100/ex-pt-clbbbftn as appropriate -Continuous telemetry 03/12 hospital transfer [...] APRN Department of Internal Medicine Division of [facility] Medicine Secure chat preferred [1] Past [...] mg, 1 mg, Oral, BID PRN, Naina Dubois, ASSOCIATE APPLICATION DEVELOPER glucose (Glutose) 40 % oral gel 15-30 [...] APRN, Last Rate: 100 mL/hr at 01/16/25 013, 100 mL/hr at 01/16/25 013 magnesium sulfate IVPB 2 g, 2 g, Intravenous, Once, Naina Dubois APRN melatonin tablet 3 mg, 3 mg, Oral, Nightly PRN, Naina Dubois APRN mupirocin (Bactroban) 2 % ointment 1 Application, 1 Application, Each Nostril, BID, Fransisco Farley MD, 1 Application at 01/16/25 013 ondansetron ODT (Zofran-ODT) disintegrating tablet 4 mg, [...] Once, Caitlyn Tay MD, 2,500 mg at 01/16/25135 Vortioxetine HBr (Trintellix) tablet 20 mg, 20 [...] Info) Description 03/27/2025 8:30 AM EST Consult [place] [facility] [address] [place] [address] Fransisco Farley MD [address] [place] [address] Pending Results Name Type Priority Associated Diagnoses [...] days for 4 Occurrences starting 01/23/2025 until 02/23/2025 Comprehensive metabolic panel Lab Routine MRSA bacteremia 7 days for 4 Occurrences starting 01/23/2025 until 07/24/2026 Vancomycin, random Lab Routine MRSA bacteremia 7 days for 4 Occurrences starting 01/23/2025 until 02/23/2025 Scheduled Referrals Name Type Priority Associated Diagnoses [...] ANTIBODY, IGM Routine 01/17/2025 7:50 PM EST HEPATITIS B CORE TOTAL AB (IGG AND IGM) Routine 01/17/2025 7:50 PM EST HC HBSAG [...] UNSOLICITED RESULTS Routine 01/16/2025 3:19 PM EST AK EXPLORE WOUND,ABDOMEN/FLANK/BA CK 01/16/2025 3:09 PM EST [...] EST documented in this encounter Results * (ABNORMAL) POCT glucose meter (01/23/2025 8:18 AM EST) POCT Glucose 147(H) 74 - 99 mg/dL 01/23/2025 8:20 AM EST [facility] Comment:Accuracy of a glucos e result [...] Comment 01/23/2025 8:20 AM [facility] Tank Calibrator ID Benji Gilbert 01/23/2025 8:20 AM EST [facility] Device ID [id number] 01/23/2025 8:20 AM EST [facility] Specimen Type POC Capillary 01/23/2025 8:20 AM EST [facility] Blood Capillary blood specimen / Unknown 01/23/2025 8:18 AM EST 01/23/2025 8:20 AM EST Merlin Massey MD LAB POINT OF CARE TE ST DOCKED DEVICE UNSOLICITED RESULTS Final Result Performing Organization Address City/State/[facility] Co de Phone Number [facility] [address] [place] [address] * (ABNORMAL) POCT glucose meter (01/22/2025 8:20 PM EST) [facility] POCT Glucose 230(H) 74 - 99 mg/dL 01/22/2025 8:26 PM EST [facility] Comment:Accuracy of a [...] for testing. Comment 01/22/2025 8:26 PM EST [facility] Tank Calibrator ID Felisa Sarmiento 025 8:26 PM EST [facility] Device ID [id number] 01/22/2025 8:26 PM EST [facility] Specimen Type POC Capillary 01/22/2025 8:26 PM EST [facility] Blood Capillary blood specimen / Unknown 01/22/2025 8:20 PM EST 01/22/2025 8:26 PM EST us Cleve Deleon MD LAB POINT OF CARE TE ST DOCKED DEVICE UNSOLICITED RESULTS Final Result Performing Organization Address City/[facility] Co de Phone Number [facility] [address] [place] [address] * (ABNORMAL) POCT glucose meter (01/22/2025 5:05 [...] for testing. Comment 01/22/2025 5:06 PM EST [facility] Tank Calibrator ID AngyJayy 01/23/20 5:06 PM EST [facility] Device ID [id number] 01/22/2025 5:06 PM EST [facility] Specimen Type POC Capillary 01/22/2025 5:06 PM EST [facility] Blood Capillary blood specimen / Unknown 01/22/2025 5:05 PM EST 01/22/2025 5:06 PM EST us Cleve Deleon MD LAB POINT OF CARE TE ST DOCKED DEVICE UNSOLICITED RESULTS Final Result Performing Organization Address City/[facility] Co de Phone Number [facility] [address] [place] [address] * (ABNORMAL) POCT glucose meter (01/22/2025 11:53 AM EST) POCT Glucose 229(H) 74 - 99 mg/dL 01/22/2025 11:55 AM EST [facility] Comment:Accuracy of [...] for testing. Comment 01/22/2025 11:55 AM EST [facility] Tank Calibrator ID Jayy Travis 01/23/20 11:55 AM [facility] Device ID [id number] 01/22/2025 11:55 AM [facility] Specimen Type POC Capillary 01/22/2025 11:55 AM [facility] Blood Capillary blood specimen / Unknown 01/22/2025 11:53 AM EST 01/22/2025 11:55 AM EST us Cleve Deleon MD LAB POINT OF CARE TE ST DOCKED DEVICE UNSOLICITED RESULTS Final Result Performing Organization Address City/[facility]/ZIP Co de Phone Number [facility] [address] [place] [address] * (ABNORMAL) POCT glucose meter (01/22/2025 7:51 AM EST) POCT Glucose 141(H) 74 - 99 mg/dL 01/22/2025 7:52 AM EST [facility] Comment:Accuracy of a glucos e result [...] for testing. Comment 01/22/2025 7:52 AM EST [facility] Tank Calibrator ID Jayy Travis 01/23/20 7:52 AM EST [facility] Device ID [id number] 01/22/2025 7:52 AM EST [facility] Specimen Type POC Capillary 01/22/2025 7:52 AM [facility] Blood Capillary blood specimen / Unknown 01/22/2025 7:51 AM EST 01/22/2025 7:52 AM EST us Cleve Deleon MD LAB POINT OF CARE TE ST DOCKED DEVICE UNSOLICITED RESULTS Final Result Performing Organization Address City/[facility]/ZIP Co de Phone Number [facility] [address] [place] [address] * Vancomycin, Peak, Plasma Please draw ~2 hours after 0300 dose on 01/22 finishes infusing. Consider obtaining level via peripheral stick. If peripheral stick is not feasible, please ensure that line is flushed well prior to drawing level. Thanks! (01/22/2025 6:32 AM EST) Vancomycin, Peak, Plasma 29.1 20.0 - 40.0 ug/mL 01/22/2025 7:07 AM EST [facility] Blood Venous blood specimen / Unknown Venipuncture / Unknown 01/22/2025 6:32 AM EST 01/22/2025 6:37 AM EST Narrative [facility] - 01/22/2025 7:07 AM EST Therapeutic Peak level: 20-40ug/mL Supra-therapeutic Peak level: >40 ug/mL Cleve Deleon MD LAB BLOOD ORDERABLES Final Re sult Performing Organization Address [facility] Co de Phone Number [facility] [address] [place] [address] * Vancomycin, Trough, Plasma Please draw ~30 minutes prior to dose due at 0300 on 01/22. ??Please do NOT hold dose awaiting level to return. Consider obtaining level via peripheral stick. If peripheralstick is not feasible, please ensure that line/p... (01/22/2025 3:04 AM EST) Pathologist [facility] Vancomycin, Trough, Plasma 13.7 10.0 - 20.0 ug/mL 01/22/2025 3:45 AM EST [facility] Blood Venous blood specimen / Unknown Venipuncture / Unknown 01/22/2025 3:04 AM EST 01/22/2025 3:15 AM EST Narrative [facility] - 01/22/2025 3:45 AM EST Therapeutic Trough level: 10-20ug/mL Supra-therapeutic Trough level: >20 ug/mL Cleve Deleon MD LAB BLOOD ORDERABLES Final Re sult Performing Organization Address City/[facility]/ZIP Co de Phone Number [facility] [address] [place] [address] * (ABNORMAL) POCT glucose meter (01/21/2025 9:42 PM EST) [facility] POCT Glucose 186(H) 74 - 99 mg/dL 01/21/2025 9:43 PM EST [facility] Comment:Accuracy of [...] for testing. Comment 01/21/2025 9:43 PM [facility] Tank Calibrator ID Alice Garber 01/21/2025 9:43 PM EST [facility] Device ID [id number] 01/21/2025 9:43 PM [facility] Specimen Type POC Capillary 01/21/2025 9:43 PM EST [facility] Blood Capillary blood specimen / Unknown 01/21/2025 9:42 PM EST 01/21/2025 9:43 PM EST Cleve Deleon MD LAB POINT OF CARE TE ST DOCKED DEVICE UNSOLICITED RESULTS Final Result Performing Organization Address City/State/[facility] Co de Phone Number [facility] [address] [place] [address] * (ABNORMAL) POCT glucose meter (01/21/2025 5:12 PM EST) [facility] POCT Glucose 214(H) 74 - 99 mg/dL [...] for testing. Comment 01/21/2025 5:14 PM EST [facility] Tank Calibrator ID Sabine Garrett 01/21/2025 5:14 PM EST [facility] Device ID [id number] 01/21/2025 5:14 PM EST [facility] Specimen Type POC Capillary 01/21/2025 5:14 PM EST [facility] Blood Capillary blood specimen / Unknown 01/21/2025 5:12 PM EST 01/21/2025 5:14 PM EST us Cleve Deleon MD LAB POINT OF CARE TE ST DOCKED DEVICE UNSOLICITED RESULTS Final Result Performing Organization Address [facility] Co de Phone Number [facility] [address] [place] [address] * (ABNORMAL) POCT glucose meter (01/21/2025 12:15 [...] for testing. Comment 01/21/2025 12:20 PM EST [facility] Tank Calibrator ID Alysa Quinn 01/21/2025 12:20 PM EST [facility] Device ID [id number] 01/21/2025 12:20 PM EST [facility] Specimen Type POC Capillary 01/21/2025 12:20 PM EST [facility] Blood Capillary blood specimen / Unknown 01/21/2025 12:15 PM EST 01/21/2025 12:20 PM EST us Cleve Deleon MD LAB POINT OF CARE TE ST DOCKED DEVICE UNSOLICITED RESULTS Final Result Performing Organization Address City/[facility] Co de Phone Number [facility] [address] [place] [address] * (ABNORMAL) POCT glucose meter (01/21/2025 8:15 AM EST) POCT Glucose 134(H) 74 - 99 mg/dL 01/21/2025 8:19 AM EST [facility] Comment:Accuracy of [...] 01/21/2025 8:19 AM EST [facility] Tank Calibrator ID Alysa Quinn 01/21/2025 8:19 AM EST [facility] Device ID [id number] 01/21/2025 8:19 AM EST [facility] Specimen Type POC Capillary 01/21/2025 8:19 AM [facility] Blood Capillary blood specimen / Unknown 01/21/2025 8:15 AM EST 01/21/2025 8:19 AM EST us Cleve Deleon MD LAB POINT OF CARE TE ST DOCKED DEVICE UNSOLICITED RESULTS Final Result Performing Organization Address [facility] de Phone Number [facility] [address] [place] [address] * (ABNORMAL) POCT glucose meter (01/20/2025 7:48 PM EST) [facility] POCT Glucose 188(H) 74 - 99 mg/dL 01/20/2025 7:49 PM EST [facility] Comment:Accuracy of [...] for testing. Comment 01/20/2025 7:49 PM EST [facility] Tank Calibrator ID Silva Coates 025 7:49 PM EST [facility] Device ID [id number] 01/20/2025 7:49 PM EST [facility] Specimen Type POC Capillary 01/20/2025 7:49 PM EST [facility] Blood Capillary blood specimen / Unknown 01/20/2025 7:48 PM EST 01/20/2025 7:49 PM EST us Cleve Deleon MD LAB POINT OF CARE TE ST DOCKED DEVICE UNSOLICITED RESULTS Final Result Performing Organization Address City/[facility]/ZIP Co de Phone Number [facility] [address] [place] [address] * XR Chest 1 View (01/20/2025 5:57 [...] Ha RN - 01/20/2025 5:08 PM EST Cailin Ha RN 01/20/2025 6:04 PM Insert PICC line Date/Time: 01/20/2025 5:08 PM Performed by: Cailin Ha RN Authorized by: Cleve Deleon MD Shelby Protocol: Verbal consent obtained?: Yes Written consent [...] preference. 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 Catheter placed: Single lumen Catheter size: 4 [...] POCT glucose meter (01/20/2025 5:05 PM EST) [facility] POCT Glucose 202(H) 74 - 99 mg/dL 01/20/2025 5:06 PM EST [facility] Comment:Accuracy [...] for testing. Comment 01/20/2025 5:06 PM EST [facility] Tank Calibrator ID Jane Wilson 01/20/2025 5:06 PM EST [facility] Device ID [id number] 01/20/2025 5:06 PM EST [facility] Specimen Type POC Capillary 01/20/2025 5:06 PM EST [facility] Blood Capillary blood specimen / Unknown 01/20/2025 5:05 PM EST 01/20/2025 5:06 PM EST Cleve Deleon MD LAB POINT OF CARE TE ST DOCKED DEVICE UNSOLICITED RESULTS Final Result Performing Organization Address City/State/[facility] Co de Phone Number [facility] [address] [place] [address] * (ABNORMAL) POCT glucose meter (01/20/2025 11:57 AM EST) [facility] POCT Glucose 228(H) 74 - 99 mg/dL 01/20/2025 11:59 AM EST [facility] Comment:Accuracy of [...] for testing. Comment 01/20/2025 11:59 AM EST [facility] Tank Calibrator ID Jane Wilson 01/20/2025 11:59 AM EST [facility] Device ID [id number] 01/20/2025 11:59 AM EST [facility] Specimen Type POC Capillary 01/20/2025 11:59 AM [facility] Blood Capillary blood specimen / Unknown 01/20/2025 11:57 AM EST 01/20/2025 11:59 AM EST us Cleve Deleon MD LAB POINT OF CARE TE ST DOCKED DEVICE UNSOLICITED RESULTS Final Result Performing Organization Address City/[facility]/ZIP Co de Phone Number [facility] [address] [place] [address] * SEND SARA MESSAGE (01/20/2025 11:02 AM EST) Urine Urine specimen obtained by clean catch procedure / Unknown Non-blood Collection / Unknown 01/20/2025 11:02 AM EST 01/20/2025 11:06 AM EST us Cleve Deleon MD LAB URINE ORDERABLES Final Re sult Performing Organization Address [facility] Co de Phone Number [facility] [address] [place] [address] * (ABNORMAL) Urine Culture (01/20/2025 11:02 AM EST) Culture 10,000 - 100,000 CFU/mL Trista albicans(A) 01/22/2025 7:50 AM EST [facility] Comment:This isolate has bee n identified using the FDA Approved MALDI Enerveeyper CA System Urine Urine specimen obtained by clean catch procedure / Unknown Non-blood Collection / Unknown 01/20/2025 11:02 AM EST 01/20/2025 11:06 AM EST us Cleve Deleon MD LAB MICROBIOLOGY - GENERAL OR DERABLES Final Result Performing Organization Address City/[facility] Co de Phone Number [facility] [address] [place] [address] * Urinalysis Microscopic Examination (01/20/2025 11:02 AM EST) Urine Urine specimen obtained by clean catch procedure / Unknown Non-blood Collection / Unknown 01/20/2025 11:02 AM EST 01/20/2025 11:06 AM EST us Cleve Deleon MD LAB URINE ORDERABLES Final Re sult [facility] [address] [place] [address] * Urine Avery Panel (01/20/2025 11:02 AM EST) Extra Sent for Culture 01/20/2025 1:02 PM EST [facility] Urine Urine specimen obtained by clean catch procedure / Unknown Non-blood Collection / Unknown 01/20/2025 11:02 AM EST 01/20/2025 11:06 AM EST us Cleve Deleon MD LAB URINE ORDERABLES Final Re sult Performing Organization Address [facility]/ZIP Co de Phone Number [facility] [address] [place] [address] * (ABNORMAL) Urinalysis with reflex microscopic (Culture NOT Included) (01/20/2025 11:02 AM EST) Color, Urine Yellow LAB URINALYSIS - AUTOMATED METHOD 01/20/2025 11:24 AM [facility] Clarity, Urine Cloudy LAB URINALYSIS - AUTOMATED METHOD 01/20/2025 11:24 AM [facility] Spec Petroleum, Urine 1.017 1.005 - 1.030 LAB URINALYSIS - AUTOMATED METHOD 01/20/2025 11:24 AM [facility] pH, Urine 6.5 5.0 - 8.0 LAB URINALYSIS - AUTOMATED METHOD 01/20/2025 11:24 AM [facility] Protein, Urine Trace(A) Negative mg/dL LAB URINALYSIS - AUTOMATED METHOD 01/20/2025 11:24 AM [facility] Glucose, Urine >=1000(A) Negative mg/dL LAB URINALYSIS - AUTOMATED METHOD 01/20/2025 11:24 AM [facility] Ketones, Urine Negative Negative mg/dL LAB URINALYSIS - AUTOMATED METHOD 01/20/2025 11:24 AM [facility] Blood, Urine Trace(A) Negative LAB URINALYSIS - AUTOMATED METHOD 01/20/2025 11:24 AM [facility] Bilirubin, Urine Negative Negative LAB URINALYSIS - AUTOMATED METHOD 01/20/2025 11:24 AM [facility] Urobilinogen, Urine 0.2 0.2 to 1.0 mg/dL LAB URINALYSIS - AUTOMATED METHOD 01/20/2025 11:24 AM EST [facility] Leukocytes, Urine Small(A) Negative LAB URINALYSIS - AUTOMATED METHOD 01/20/2025 11:24 AM EST [facility] Nitrite, Urine Negative Negative LAB URINALYSIS - AUTOMATED METHOD 01/20/2025 11:24 AM EST [facility] RBC, Urine 2 0 to 3 /HPF LAB URINALYSIS - AUTOMATED METHOD 01/20/2025 11:24 AM EST [facility] WBC, Urine >50(A) 0 to 5 /HPF LAB URINALYSIS - AUTOMATED METHOD 01/20/2025 11:24 AM EST [facility] Squamous Epithelial Cells 0 - 2 0 to 5 /HPF LAB URINALYSIS - AUTOMATED METHOD 01/20/2025 11:24 AM EST [facility] Hyaline Casts 3 - 5 0 to 5 /LPF LAB URINALYSIS - AUTOMATED METHOD 01/20/2025 11:24 AM EST [facility] Bacteria, Urine Negative Negative LAB URINALYSIS - AUTOMATED METHOD 01/20/2025 11:24 AM EST [facility] Yeast (Budding and/or Pseudohyphae) Present(A) Absent LAB URINALYSIS - AUTOMATED METHOD 01/20/2025 11:24 AM EST [facility] Urine Urine specimen obtained by clean catch procedure / Unknown Non-blood Collection / Unknown 01/20/2025 11:02 AM EST 01/20/2025 11:06 AM EST us lCeve Deleon MD LAB URINE ORDERABLES Final Re sult [facility] [address] [place] [address] * (ABNORMAL) POCT glucose meter (01/20/2025 8:03 AM EST) POCT Glucose 139(H) 74 - 99 mg/dL 01/20/2025 8:05 AM EST [facility] Comment:Accuracy of a glucos [...] for testing. Comment 01/20/2025 8:05 AM EST [facility] Tank Calibrator ID Jane Wilson 01/20/2025 8:05 AM EST [facility] Device ID [id number] 01/20/2025 8:05 AM EST [facility] Specimen Type POC Capillary 01/20/2025 8:05 AM EST [facility] Blood Capillary blood specimen / Unknown 01/20/2025 8:03 AM EST 01/20/2025 8:05 AM EST us Cleve Deleon MD LAB POINT OF CARE TE ST DOCKED DEVICE UNSOLICITED RESULTS Final Result Performing Organization Address City/[facility] Co de Phone Number [facility] [address] [place] [address] * (ABNORMAL) Creatine Kinase (CK), Total (01/20/2025 5:02 AM EST) Creatine Kinase, Plasma 290(H) 37 - 168 U/L 01/20/2025 5:37 AM EST [facility] Blood Venous blood specimen / Unknown Venipuncture / Unknown 01/20/2025 5:02 AM EST 01/20/2025 5:07 AM EST us Cleve Deleon MD LAB BLOOD ORDERABLES Final Re sult [facility] [address] [place] [address] * (ABNORMAL) Basic metabolic panel (01/20/2025 5:02 AM EST) Glucose, Plasma 151(H) 74 - 99 mg/dL 01/20/2025 5:37 AM EST [facility] BUN, Plasma 12 8 - 23 mg/dL 01/20/2025 5:37 AM EST [facility] Creatinine, Plasma 0.79 0.60 - 1.10 mg/dL 01/20/2025 5:37 AM EST [facility] BUN/Creatinine Ratio 15 01/20/2025 5:37 AM EST [facility] Sodium, Plasma 139 136 - 145 mmol/L 01/20/2025 5:37 AM EST [facility] Potassium, Plasma 3.6 3.6 - 4.9 mmol/L 01/20/2025 5:37 AM EST [facility] Chloride, Plasma 102 97 - 107 mmol/L 01/20/2025 5:37 AM EST [facility] CO2, Plasma 28 22 - 29 mmol/L 01/20/2025 5:37 AM EST [facility] Anion Gap 9 6 - 16 mmol/L 01/20/2025 5:37 AM EST [facility] Total Calcium, Plasma 8.2(L) 8.9 - 10.2 mg/dL 01/20/2025 5:37 AM EST [facility] eGFRcr 78.6 mL/min/1.7 3m*2 01/20/2025 5:37 AM EST [facility] Comment:Reported eGFRcr in m L/min/1.73m2 is based the CKD-EPI 2020 equation that does not use a race coefficient. Blood Venous blood specimen / Unknown Venipuncture / Unknown 01/20/2025 5:02 AM EST 01/20/2025 5:07 AM EST us Cleve Deleon MD LAB BLOOD ORDERABLES Final Re sult [facility] [address] [place] [address] * (ABNORMAL) POCT glucose meter (01/19/2025 8:10 PM EST) POCT Glucose 213(H) 74 - 99 mg/dL 01/19/2025 8:12 PM EST [facility] Comment:Accuracy of a glucos e result [...] Comment 01/19/2025 8:12 PM EST [facility] Tank Calibrator ID Silva Coates 025 8:12 PM EST [facility] Device ID [id number] 01/19/2025 8:12 PM EST [facility] Specimen Type POC Capillary 01/19/2025 8:12 PM EST [facility] Blood Capillary blood specimen / Unknown 01/19/2025 8:10 PM EST 01/19/2025 8:12 PM EST us Cleve Deleon MD LAB POINT OF CARE TE ST DOCKED DEVICE UNSOLICITED RESULTS Final Result Performing Organization Address City/[facility] Co de Phone Number [facility] [address] [place] [address] * (ABNORMAL) POCT glucose meter (01/19/2025 5:32 PM EST) POCT Glucose 197(H) 74 - 99 mg/dL 01/19/2025 5:33 PM EST [facility] Comment:Accuracy of a [...] for testing. Comment 01/19/2025 5:33 PM EST [facility] Tank Calibrator ID Aleyda Haley 01/19/2025 5:33 PM EST [facility] Device ID [id number] 01/19/2025 5:33 PM EST [facility] Specimen Type POC Capillary 01/19/2025 5:33 PM EST [facility] Blood Capillary blood specimen / Unknown 01/19/2025 5:32 PM EST 01/19/2025 5:33 PM EST us Cleve Deleon MD LAB POINT OF CARE TE ST DOCKED DEVICE UNSOLICITED RESULTS Final Result Performing Organization Address City/[facility]/ZIP Co de Phone Number [facility] [address] [place] [address] * (ABNORMAL) POCT glucose meter (01/19/2025 12:21 PM EST) [facility] POCT Glucose 210(H) 74 - 99 [...] 01/19/2025 12:22 PM EST [facility] Tank Calibrator ID Aleyda Haley 01/19/2025 12:22 PM EST [facility] Device ID [id number] 01/19/2025 12:22 PM EST [facility] Specimen Type POC Capillary 01/19/2025 12:22 PM EST [facility] Blood Capillary blood specimen / Unknown 01/19/2025 12:21 PM EST 01/19/2025 12:22 PM EST Cleve Deleon MD LAB POINT OF CARE TE ST DOCKED DEVICE UNSOLICITED RESULTS Final Result Performing Organization Address City/State/[facility] Co de Phone Number [facility] [address] [place] [address] * (ABNORMAL) POCT glucose meter (01/19/2025 8:18 AM EST) [facility] POCT Glucose 140(H) 74 - 99 mg/dL 01/19/2025 8:20 AM EST [facility] Comment:Accuracy of [...] for testing. Comment 01/19/2025 8:20 AM EST [facility] Tank Calibrator ID Aleyda Haley 01/19/2025 8:20 AM EST [facility] Device ID [id number] 01/19/2025 8:20 AM EST [facility] Specimen Type POC Capillary 01/19/2025 8:20 AM EST [facility] Blood Capillary blood specimen / Unknown 01/19/2025 8:18 AM EST 01/19/2025 8:20 AM EST us Cleve Deleon MD LAB POINT OF CARE TE ST DOCKED DEVICE UNSOLICITED RESULTS Final Result Performing Organization Address City/[facility]/ZIP Co de Phone Number [facility] [address] [place] [address] * Phosphorus (01/19/2025 6:05 AM EST) Phosphorus, Plasma 3.0 2.5 - 4.5 mg/dL 01/19/2025 6:40 AM EST [facility] Blood Venous blood specimen / Unknown Venipuncture / Unknown 01/19/2025 6:05 AM EST 01/19/2025 6:15 AM EST us Cleve Deleon MD LAB BLOOD ORDERABLES Final Re sult Performing Organization Address [facility] de Phone Number [facility] [address] [place] [address] * Magnesium (01/19/2025 6:05 AM EST) Magnesium, Plasma 2.1 1.9 - 2.4 mg/dL 01/19/2025 6:40 AM EST [facility] Blood Venous blood specimen / Unknown Venipuncture / Unknown 01/19/2025 6:05 AM EST 01/19/2025 6:15 AM EST us Cleve Deleon MD LAB BLOOD ORDERABLES Final Re sult Performing Organization Address [facility] de Phone Number [facility] [address] [place] [address] * Vancomycin, Peak, Plasma Please draw ~2 hours after 0230 dose of vancomycin finishes infusing. Consider obtaining level via peripheral stick. If peripheral stick is not feasible, please ensure that line is flushed well prior to drawing level. Than... (01/19/2025 6:05 AM EST) Vancomycin, Peak, Plasma 39.7 20.0 - 40.0 ug/mL 01/19/2025 6:42 AM EST [facility] Blood Venous blood specimen / Unknown Venipuncture / Unknown 01/19/2025 6:05 AM EST 01/19/2025 6:15 AM EST Narrative [facility] - 01/19/2025 6:42 AM EST Therapeutic Peak level: 20-40ug/mL Supra-therapeutic Peak level: >40 ug/mL Cleve Deleon MD LAB BLOOD ORDERABLES Final Re sult [facility] [address] [place] [address] * Vancomycin, Trough, Plasma Please draw ~30 minutes prior to dose due at 0230 on 01/19. Please do NOT hold dose awaiting level to return. Consider obtaining level via peripheral stick. If peripheral stick is not feasible, please ensure that line i... (01/19/2025 2:05 AM EST) Pathologist [facility] Vancomycin, Trough, Plasma 16.4 10.0 - 20.0 ug/mL 01/19/2025 2:40 AM EST [facility] Blood Venous blood specimen / Unknown Venipuncture / Unknown 01/19/2025 2:05 AM EST 01/19/2025 2:12 AM EST Narrative [facility] - 01/19/2025 2:40 AM EST Therapeutic Trough level: 10-20ug/mL Supra-therapeutic Trough level: >20 ug/mL Cleve Deleon MD LAB BLOOD ORDERABLES Final Re sult [facility] [address] [place] [address] * (ABNORMAL) POCT glucose meter (01/18/2025 10:05 PM EST) POCT Glucose 181(H) 74 - 99 mg/dL 01/18/2025 10:43 PM EST [facility] Comment:Accuracy of a [...] for testing. Comment 01/18/2025 10:43 PM EST [facility] Tank Calibrator ID Felisa Sarmiento 025 10:43 PM EST [facility] Device ID [id number] 01/18/2025 10:43 PM EST [facility] Specimen Type POC Capillary 01/18/2025 10:43 PM EST [facility] Blood Capillary blood specimen / Unknown 01/18/2025 10:05 PM EST 01/18/2025 10:43 PM EST us Cleve Deleon MD LAB POINT OF CARE TE ST DOCKED DEVICE UNSOLICITED RESULTS Final Result Performing Organization Address City/State/[facility] Co de Phone Number [facility]ALTHCARE [facility] [address] [place] [address] * (ABNORMAL) POCT glucose meter (01/18/2025 5:34 PM EST) [facility] POCT Glucose 227(H) 74 - 99 mg/dL 01/18/2025 9:25 PM EST [facility] Comment:Accuracy of a [...] for testing. Comment 01/18/2025 9:25 PM EST [facility] Tank Calibrator ID Renae Mcleod 01/19/20 9:25 PM EST [facility] Device ID [id number] 01/18/2025 9:25 PM EST [facility] Specimen Type POC Capillary 01/18/2025 9:25 PM EST [facility] Blood Capillary blood specimen / Unknown 01/18/2025 5:34 PM EST 01/18/2025 9:25 PM EST us Cleve Deleon MD LAB POINT OF CARE TE ST DOCKED DEVICE UNSOLICITED RESULTS Final Result [facility] [address] [place] [address] * Blood Culture (Aerobic/Anaerobet Set) (01/18/2025 1:23 PM EST) Culture No growth at day 5 SADA 01/23/2025 2:02 PM EST [facility] Blood Venous blood specimen / Unknown Venipuncture / Unknown 01/18/2025 1:23 PM EST 01/18/2025 1:34 PM EST Cleve Deleon MD LAB MICROBIOLOGY - GENERAL OR DERABLES Final Result Performing Organization Address City/[facility] Co de Phone Number [facility] [address] [place] [address] * PERIPHERAL IV (SMARTFORM LINK) (01/18/2025 12:54 [...] Patient Comments: Pertinent imaging sent via PACS us Cleve Deleon MD IV THERAPY ORDERABLES Final R esult * (ABNORMAL) POCT glucose meter (01/18/2025 12:00 PM EST) POCT Glucose 193(H) 74 - 99 mg/dL 01/18/2025 12:01 PM EST [facility] Comment:Accuracy of a [...] 01/18/2025 12:01 PM EST [facility] Tank Calibrator ID Renae Mcleod 01/19/20 12:01 PM EST [facility] Device ID [id number] 01/18/2025 12:01 PM EST [facility] Specimen Type POC Capillary 01/18/2025 12:01 PM EST [facility] Blood Capillary blood specimen / Unknown 01/18/2025 12:00 PM EST 01/18/2025 12:01 PM EST us Cleve Deleon MD LAB POINT OF CARE TE ST DOCKED DEVICE UNSOLICITED RESULTS Final Result Performing Organization Address City/[facility] de Phone Number [facility] [address] [place] [address] * (ABNORMAL) POCT glucose meter (01/18/2025 8:25 AM EST) [facility] POCT Glucose 146(H) 74 - 99 mg/dL 01/18/2025 8:27 AM EST [facility] Comment:Accuracy of [...] for testing. Comment 01/18/2025 8:27 AM EST [facility] Tank Calibrator ID Renae Mcleod 01/19/20 8:27 AM EST [facility] Device ID [id number] 01/18/2025 8:27 AM EST [facility] Specimen Type POC Capillary 01/18/2025 8:27 AM EST [facility] Blood Capillary blood specimen / Unknown 01/18/2025 8:25 AM EST 01/18/2025 8:27 AM EST us Cleve Deleon MD LAB POINT OF CARE TE ST DOCKED DEVICE UNSOLICITED RESULTS Final Result [facility] [address] [place] [address] * (ABNORMAL) CBC and Differential (01/18/2025 4:56 AM EST) WBC Count 10.71(H) 3.70 - 10.30 10*3/uL LAB HEMATOLOGY METHOD 01/18/2025 5:22 AM EST [facility] RBC Count 2.79(L) 3.90 - 5.20 10*6/uL LAB HEMATOLOGY METHOD 01/18/2025 5:22 AM EST [facility] HGB 9.0(L) 11.2 - 15.7 g/dL LAB HEMATOLOGY METHOD 01/18/2025 5:22 AM EST [facility] HCT 27.4(L) 34.0 - 45.0 % LAB HEMATOLOGY METHOD 01/18/2025 5:22 AM EST [facility] Platelet Count 400(H) 155 - 369 10*3/uL LAB HEMATOLOGY METHOD 01/18/2025 5:22 AM EST [facility] MCV 98 79 - 98 fL LAB HEMATOLOGY METHOD 01/18/2025 5:22 AM EST [facility] MCH 32.3(H) 26.0 - 32.0 pg LAB HEMATOLOGY METHOD 01/18/2025 5:22 AM EST [facility] MCHC 32.8 30.7 - 35.5 g/dL LAB HEMATOLOGY METHOD 01/18/2025 5:22 AM EST [facility] RDW 14.3 11.5 - 14.5 % LAB HEMATOLOGY METHOD 01/18/2025 5:22 AM EST [facility] MPV 9.0 8.8 - 12.5 fL LAB HEMATOLOGY METHOD 01/18/2025 5:22 AM EST [facility] nRBC 0.0 <=0.0 per 100 WBCs LAB HEMATOLOGY METHOD 01/18/2025 5:22 AM EST [facility] Differential Type Automated LAB HEMATOLOGY METHOD 01/18/2025 5:22 AM EST [facility] Neutrophils % 79 % LAB HEMATOLOGY METHOD 01/18/2025 5:22 AM EST [facility] Lymphocytes % 9 % LAB HEMATOLOGY METHOD 01/18/2025 5:22 AM EST [facility] Monocytes % 9 % LAB HEMATOLOGY METHOD 01/18/2025 5:22 AM EST [facility] Eosinophils % 2 % LAB HEMATOLOGY METHOD 01/18/2025 5:22 AM EST [facility] Basophils % 0 % LAB HEMATOLOGY METHOD 01/18/2025 5:22 AM EST [facility] Immature Granulocytes % 1 % LAB HEMATOLOGY METHOD 01/18/2025 5:22 AM EST [facility] Neutrophils Absolute 8.43(H) 1.60 - 6.10 10*3/uL LAB HEMATOLOGY METHOD 01/18/2025 5:22 AM EST [facility] Lymphocytes Absolute 0.99(L) 1.20 - 3.90 10*3/uL LAB HEMATOLOGY METHOD 01/18/2025 5:22 AM EST [facility] Monocytes Absolute 0.97(H) 0.30 - 0.90 10*3/uL LAB HEMATOLOGY METHOD 01/18/2025 5:22 AM EST [facility] Eosinophils Absolute 0.21 0.00 - 0.50 10*3/uL LAB HEMATOLOGY METHOD 01/18/2025 5:22 AM EST [facility] Basophils Absolute 0.03 0.00 - 0.10 10*3/uL LAB HEMATOLOGY METHOD 01/18/2025 5:22 AM EST [facility] Immature Granulocytes Absolute 0.08(H) 0.00 - 0.06 10*3/uL LAB HEMATOLOGY METHOD 01/18/2025 5:22 AM EST [facility] Blood Blood sample taken from central line / Unknown Venipuncture / Unknown 01/18/2025 4:56 AM EST 01/18/2025 5:12 AM EST Narrative [facility] - 01/18/2025 5:22 AM EST Therapeutic decision making should be based on absolute values, rather than percentages. us Cleve Deleon MD LAB BLOOD ORDERABLES Final Re sult [facility] [address] [place] [address] * (ABNORMAL) Magnesium, Plasma (01/18/2025 4:56 AM EST) Magnesium, Plasma 1.7(L) 1.9 - 2.4 mg/dL 01/18/2025 5:42 AM EST [facility] Blood Blood sample taken from central line / Unknown Venipuncture / Unknown 01/18/2025 4:56 AM EST 01/18/2025 5:12 AM EST us Cleve Deleon MD LAB BLOOD ORDERABLES Final Re sult [facility] [address] [place] [address] * (ABNORMAL) Basic Metabolic Panel, Plasma (01/18/2025 4:56 AM EST) Glucose, Plasma 151(H) 74 - 99 mg/dL 01/18/2025 5:42 AM EST [facility] BUN, Plasma 16 8 - 23 mg/dL 01/18/2025 5:42 AM EST [facility] Creatinine, Plasma 0.90 0.60 - 1.10 mg/dL 01/18/2025 5:42 AM EST [facility] BUN/Creatinine Ratio 18 01/18/2025 5:42 AM EST [facility] Sodium, Plasma 142 136 - 145 mmol/L 01/18/2025 5:42 AM EST [facility] Potassium, Plasma 4.0 3.6 - 4.9 mmol/L 01/18/2025 5:42 AM EST [facility] Chloride, Plasma 104 97 - 107 mmol/L 01/18/2025 5:42 AM EST [facility] CO2, Plasma 25 22 - 29 mmol/L 01/18/2025 5:42 AM EST [facility] Anion Gap 13 6 - 16 mmol/L 01/18/2025 5:42 AM EST [facility] Total Calcium, Plasma 8.4(L) 8.9 - 10.2 mg/dL 01/18/2025 5:42 AM EST [facility] eGFRcr 67.2 mL/min/1.7 3m*2 01/18/2025 5:42 AM EST [facility] Comment:Reported eGFRcr in m L/min/1.73m2 is based the CKD-EPI 2020 equation that does not use a race coefficient. Blood Blood sample taken from central line / Unknown Venipuncture / Unknown 01/18/2025 4:56 AM EST 01/18/2025 5:12 AM EST us Cleve Deleon MD LAB BLOOD ORDERABLES Final Re sult Performing Organization Address [facility] Co de Phone Number [facility] [address] [place] [address] * (ABNORMAL) Phosphorus, Plasma (01/18/2025 4:56 AM EST) Pathologist [facility] Phosphorus, Plasma 1.9(L) 2.5 - 4.5 mg/dL 01/18/2025 5:42 AM EST [facility] Blood Blood sample taken from central line / Unknown Venipuncture / Unknown 01/18/2025 4:56 AM EST 01/18/2025 5:12 AM EST us Cleve Deleon MD LAB BLOOD ORDERABLES Final Re sult Performing Organization Address [facility] Co de Phone Number [facility] [address] [place] [address] * Hepatitis C Antibody - ED W/Reflex to HCV Quant PCR (01/18/2025 4:56 AM EST) [facility] Hepatitis C Antibody Negative Negative 01/18/2025 5:53 AM EST [facility] Blood Blood sample taken from central line / Unknown Venipuncture / Unknown 01/18/2025 4:56 AM EST 01/18/2025 5:11 AM EST us Cleve Deleon MD LAB BLOOD ORDERABLES Final Re sult Performing Organization Address [facility] Co de Phone Number [facility] [address] [place] [address] * (ABNORMAL) Hepatic Function Panel (01/18/2025 4:56 AM EST) Pathologist [facility] Direct Bilirubin, Plasma <0.2 <=0.3 mg/dL 01/18/2025 5:42 AM EST [facility] Alkaline Phosphatase, Plasma 263(H) 46 - 142 U/L 01/18/2025 5:42 AM EST [facility] Total Bilirubin, Plasma 0.3 0.2 - 1.1 mg/dL 01/18/2025 5:42 AM EST [facility] Albumin, Plasma 3.0(L) 3.5 - 5.2 g/dL 01/18/2025 5:42 AM EST [facility] Total Protein 6.1(L) 6.3 - 7.9 g/dL 01/18/2025 5:42 AM EST [facility] ALT, Plasma 53(H) 10 - 35 U/L 01/18/2025 5:42 AM EST [facility] AST, Plasma 70(H) 10 - 35 U/L 01/18/2025 5:42 AM EST [facility] Blood Blood sample taken from central line / Unknown Venipuncture / Unknown 01/18/2025 4:56 AM EST 01/18/2025 5:12 AM EST us Cleve Deleon MD LAB BLOOD ORDERABLES Final Re sult [facility] [address] [place] [address] * (ABNORMAL) POCT glucose meter (01/17/2025 9:24 PM EST) POCT Glucose 175(H) 74 - 99 mg/dL 01/17/2025 9:27 PM EST [facility] Comment:Accuracy of a glucos [...] for testing. Comment 01/17/2025 9:27 PM EST [facility] Tank Calibrator ID Felisa Sarmiento 025 9:27 PM EST [facility] Device ID [id number] 01/17/2025 9:27 PM EST [facility] Specimen Type POC Capillary 01/17/2025 9:27 PM EST [facility] Blood Capillary blood specimen / Unknown 01/17/2025 9:24 PM EST 01/17/2025 9:27 PM EST us Cleve Deleon MD LAB POINT OF CARE TE ST DOCKED DEVICE UNSOLICITED RESULTS Final Result Performing Organization Address [facility] Co de Phone Number [facility] [address] [place] [address] * Hepatitis B Surface Antigen (01/17/2025 7:50 PM EST) Hepatitis B Surf Antigen Negative Negative 01/17/2025 10:06 PM EST [facility] Blood Arterial blood specimen / Unknown (Central Line) Existing Catheter / Unknown 01/17/2025 7:50 PM EST 01/17/2025 7:54 PM EST us Cleve Deleon MD LAB BLOOD ORDERABLES Final Re sult Performing Organization Address [facility] de Phone Number [facility] [address] [place] [address] * Hepatitis B Surface Antibody, Quantitative (01/17/2025 7:50 PM EST) Pathologist [facility] Hepatitis B Surface Antibody, Quantitative <8.00 NonReactiv e: <8, Grayzone: 8 - <12, Reactive: >= 12 mIU/mL 01/17/2025 10:06 PM EST [facility] Comment: Nonreactive. Individual is considered not immune to HBV infection. Blood Arterial blood specimen / Unknown (Central Line) Existing Catheter / Unknown 01/17/2025 7:50 PM EST 01/17/2025 7:54 PM EST us Cleve Deleon MD LAB BLOOD ORDERABLES Final Re sult Performing Organization Address [facility] Co de Phone Number [facility] [address] [place] [address] * Hepatitis B Core Total Antibody IgG,IgM (01/17/2025 7:50 PM EST) Hepatitis B Core Total Antibody IgG,IgM Negative Negative 01/17/2025 10:06 PM EST [facility] Blood Arterial blood specimen / Unknown (Central Line) Existing Catheter / Unknown 01/17/2025 7:50 PM EST 01/17/2025 7:54 PM EST us Cleve Deleon MD LAB BLOOD ORDERABLES Final Re sult Performing Organization Address [facility]/ZIP Co de Phone Number [facility] [address] [place] [address] * Hepatitis B Core Antibody IgM (01/17/2025 7:50 PM EST) [facility] Hepatitis B Core Antibody IgM Negative Negative 01/17/2025 10:06 PM EST [facility] Blood Arterial blood specimen / Unknown (Central Line) Existing Catheter / Unknown 01/17/2025 7:50 PM EST 01/17/2025 7:54 PM EST us Cleve Deleon MD LAB BLOOD ORDERABLES Final Re sult Performing Organization Address [facility] [place] [address] * (ABNORMAL) POCT glucose meter (01/17/2025 5:55 PM EST) [facility] POCT Glucose 186(H) 74 - 99 [...] for testing. Comment 01/17/2025 5:57 PM EST [facility] Tank Calibrator ID Aleyda Haley 01/17/2025 5:57 PM EST [facility] Device ID [id number] 01/17/2025 5:57 PM EST [facility] Specimen Type POC Capillary 01/17/2025 5:57 PM EST [facility] Blood Capillary blood specimen / Unknown 01/17/2025 5:55 PM EST 01/17/2025 5:57 PM EST Cleve Deleon MD LAB POINT OF CARE TE ST DOCKED DEVICE UNSOLICITED RESULTS Final Result Performing Organization Address [facility] de Phone Number [facility] [address] [place] [address] * (ABNORMAL) POCT glucose meter (01/17/2025 12:33 PM EST) POCT Glucose 172(H) 74 - 99 mg/dL 01/17/2025 12:34 PM EST [facility] Comment:Accuracy of a glucos e result [...] for testing. Comment 01/17/2025 12:34 PM EST [facility] Tank Calibrator ID MedeirosAleyda Price 01/17/2025 12:34 PM EST [facility] Device ID [id number] 01/17/2025 12:34 PM EST [facility] Specimen Type POC Capillary 01/17/2025 12:34 PM EST [facility] Blood Capillary blood specimen / Unknown 01/17/2025 12:33 PM EST 01/17/2025 12:34 PM EST Cleve Deleon MD LAB POINT OF CARE TE ST DOCKED DEVICE UNSOLICITED RESULTS Final Result Performing Organization Address City/[facility] Co de Phone Number [facility] [address] [place] [address] * ECHO, ADULT TRANSTHORACIC COMPLETE (01/17/2025 11:55 [...] is no recent study available for direct [id number] comparison. Left Ventricle The left ventricle is [...] is no recent study available for direct [id number] comparison. us Cleve Deleon MD CV ECHO PROCEDURES Final Resu lt * (ABNORMAL) POCT glucose meter (01/17/2025 5:23 AM EST) POCT Glucose 166(H) 74 - 99 mg/dL 01/17/2025 5:25 AM EST [facility] Comment:Accuracy of a [...] for testing. Comment 01/17/2025 5:25 AM EST [facility] Tank Calibrator ID Cydney Valiente 5:25 AM EST [facility] Device ID [id number] 01/17/2025 5:25 AM EST [facility] Specimen Type POC Capillary 01/17/2025 5:25 AM EST [facility] Blood Capillary blood specimen / Unknown 01/17/2025 5:23 AM EST 01/17/2025 5:25 AM EST Cleve Deleon MD LAB POINT OF CARE TE ST DOCKED DEVICE UNSOLICITED RESULTS Final Result Performing Organization Address City/State/[facility] Co de Phone Number [facility] [address] [place] [address] * (ABNORMAL) CBC and Differential (01/17/2025 2:31 AM EST) WBC Count 8.74 3.70 - 10.30 10*3/uL LAB HEMATOLOGY METHOD 01/17/2025 3:05 AM EST [facility] RBC Count 2.82(L) 3.90 - 5.20 10*6/uL LAB HEMATOLOGY METHOD 01/17/2025 3:05 AM EST [facility] HGB 8.9(L) 11.2 - 15.7 g/dL LAB HEMATOLOGY METHOD 01/17/2025 3:05 AM EST [facility] HCT 27.9(L) 34.0 - 45.0 % LAB HEMATOLOGY METHOD 01/17/2025 3:05 AM EST [facility] Platelet Count 351 155 - 369 10*3/uL LAB HEMATOLOGY METHOD 01/17/2025 3:05 AM EST [facility] MCV 99(H) 79 - 98 fL LAB HEMATOLOGY METHOD 01/17/2025 3:05 AM EST [facility] MCH 31.6 26.0 - 32.0 pg LAB HEMATOLOGY METHOD 01/17/2025 3:05 AM [facility] MCHC 31.9 30.7 - 35.5 g/dL LAB HEMATOLOGY METHOD 01/17/2025 3:05 AM [facility] RDW 14.2 11.5 - 14.5 % LAB HEMATOLOGY METHOD 01/17/2025 3:05 AM [facility] MPV 9.1 8.8 - 12.5 fL LAB HEMATOLOGY METHOD 01/17/2025 3:05 AM [facility] nRBC 0.0 <=0.0 per 100 WBCs LAB HEMATOLOGY METHOD 01/17/2025 3:05 AM [facility] Differential Type Automated LAB HEMATOLOGY METHOD 01/17/2025 3:05 AM [facility] Neutrophils % 88 % LAB HEMATOLOGY METHOD 01/17/2025 3:05 AM [facility] Lymphocytes % 8 % LAB HEMATOLOGY METHOD 01/17/2025 3:05 AM [facility] Monocytes % 2 % LAB HEMATOLOGY METHOD 01/17/2025 3:05 AM [facility] Eosinophils % 0 % LAB HEMATOLOGY METHOD 01/17/2025 3:05 AM [facility] Basophils % 0 % LAB HEMATOLOGY METHOD 01/17/2025 3:05 AM [facility] Immature Granulocytes % 2 % LAB HEMATOLOGY METHOD 01/17/2025 3:05 AM [facility] Neutrophils Absolute 7.74(H) 1.60 - 6.10 10*3/uL LAB HEMATOLOGY METHOD 01/17/2025 3:05 AM [facility] Lymphocytes Absolute 0.68(L) 1.20 - 3.90 10*3/uL LAB HEMATOLOGY METHOD 01/17/2025 3:05 AM [facility] Monocytes Absolute 0.17(L) 0.30 - 0.90 10*3/uL LAB HEMATOLOGY METHOD 01/17/2025 3:05 AM [facility] Eosinophils Absolute 0.00 0.00 - 0.50 10*3/uL LAB HEMATOLOGY METHOD 01/17/2025 3:05 AM [facility] Basophils Absolute 0.02 0.00 - 0.10 10*3/uL LAB HEMATOLOGY METHOD 01/17/2025 3:05 AM [facility] Immature Granulocytes Absolute 0.13(H) 0.00 - 0.06 10*3/uL LAB HEMATOLOGY METHOD 01/17/2025 3:05 AM EST [facility] Blood Venous blood specimen / Unknown Venipuncture / Unknown 01/17/2025 2:31 AM EST 01/17/2025 2:40 AM EST Narrative [facility] - 01/17/2025 3:05 AM EST Therapeutic decision making should be based on absolute values, rather than percentages. us Cleve Deleon MD LAB BLOOD ORDERABLES Final Re sult Performing Organization Address City/[facility]/ZIP Co de Phone Number [facility] [address] [place] [address] * Magnesium, Plasma (01/17/2025 2:31 AM EST) Magnesium, Plasma 2.0 1.9 - 2.4 mg/dL 01/17/2025 3:08 AM EST [facility] Blood Venous blood specimen / Unknown Venipuncture / Unknown 01/17/2025 2:31 AM EST 01/17/2025 2:39 AM EST Cleve Deleon MD LAB BLOOD ORDERABLES Final Re sult Performing Organization Address City/[facility]/ZIP Co de Phone Number [facility] [address] [place] [address] * (ABNORMAL) Basic Metabolic Panel, Plasma (01/17/2025 2:31 AM EST) Glucose, Plasma 193(H) 74 - 99 mg/dL 01/17/2025 3:08 AM EST [facility] BUN, Plasma 17 8 - 23 mg/dL 01/17/2025 3:08 AM EST [facility] Creatinine, Plasma 0.87 0.60 - 1.10 mg/dL 01/17/2025 3:08 AM EST [facility] BUN/Creatinine Ratio 20 01/17/2025 3:08 AM EST [facility] Sodium, Plasma 140 136 - 145 mmol/L 01/17/2025 3:08 AM EST [facility] Potassium, Plasma 4.6 3.6 - 4.9 mmol/L 01/17/2025 3:08 AM EST [facility] Chloride, Plasma 104 97 - 107 mmol/L 01/17/2025 3:08 AM EST [facility] CO2, Plasma 24 22 - 29 mmol/L 01/17/2025 3:08 AM EST [facility] Anion Gap 12 6 - 16 mmol/L 01/17/2025 3:08 AM EST [facility] Total Calcium, Plasma 8.7(L) 8.9 - 10.2 mg/dL 01/17/2025 3:08 AM EST [facility] eGFRcr 70.0 mL/min/1.7 3m*2 01/17/2025 3:08 AM EST [facility] Comment:Reported eGFRcr in m L/min/1.73m2 is based the CKD-EPI 2020 equation that does not use a race coefficient. Blood Venous blood specimen / Unknown Venipuncture / Unknown 01/17/2025 2:31 AM EST 01/17/2025 2:39 AM EST Cleve Deleon MD LAB BLOOD ORDERABLES Final Re sult [facility] [address] [place] [address] * Phosphorus, Plasma (01/17/2025 2:31 AM EST) Phosphorus, Plasma 4.3 2.5 - 4.5 mg/dL 01/17/2025 3:08 AM EST [facility] Blood Venous blood specimen / Unknown Venipuncture / Unknown 01/17/2025 2:31 AM EST 01/17/2025 2:39 AM EST Cleve Deleon MD LAB BLOOD ORDERABLES Final Re sult [facility] [address] [place] [address] * (ABNORMAL) POCT glucose meter (01/17/2025 12:39 AM EST) POCT Glucose 198(H) 74 - 99 mg/dL 01/17/2025 12:41 AM EST [employer] [facility] Comment:Accuracy of a glucos e [...] testing. Comment 01/17/2025 12:41 AM EST [facility] Tank Calibrator ID Cydney Valiente 12:41 AM EST [employer] [facility] Device ID [id number] 01/17/2025 12:41 AM EST [facility] Specimen Type POC Capillary 01/17/2025 12:41 AM EST [facility] Blood Capillary blood specimen / Unknown 01/17/2025 12:39 AM EST 01/17/2025 12:41 AM EST Cleve Deleon MD LAB POINT OF CARE TE ST DOCKED DEVICE UNSOLICITED RESULTS Final Result [facility] [address] [place] [address] * CT Lumbar Spine w IV Contrast [...] Ar Wick MD on 01/17/2025 1:25 PM Narrative 01/17/2025 [...] Johana Coyne MD on 01/16/2025 8:04 PM Naina Dubois APRN IM US PROCEDURES Final Result * (ABNORMAL) POCT glucose meter (01/16/2025 6:35 PM EST) POCT Glucose 173(H) 74 - 99 mg/dL 01/16/2025 6:36 PM EST [facility] Comment:Accuracy of a glucos [...] for testing. Comment 01/16/2025 6:36 PM EST [facility] Tank Calibrator ID Amandeep Ward 01/16/2025 6:36 PM EST [facility] Device ID [id number] 01/16/2025 6:36 PM EST [facility] Specimen Type POC Capillary 01/16/2025 6:36 PM EST [facility] Blood Capillary blood specimen / Unknown 01/16/2025 6:35 PM EST 01/16/2025 6:36 PM EST Cleve Deleon MD LAB POINT OF CARE TE ST DOCKED DEVICE UNSOLICITED RESULTS Final Result Performing Organization Address City/State/[facility] de Phone Number [facility] [address] [place] [address] * (ABNORMAL) POCT glucose meter (01/16/2025 5:22 PM EST) [facility] Signature POCT Glucose 178(H) 74 - 99 mg/dL 01/16/2025 5:23 PM EST [facility] Comment:Accuracy of a glucos [...] for testing. Comment 01/16/2025 5:23 PM EST [facility] Tank Calibrator ID Felisa Hernandez 5:23 PM EST [facility] Device ID [id number] 01/16/2025 5:23 PM EST [facility] Specimen Type POC Capillary 01/16/2025 5:23 PM EST [facility] Blood Capillary blood specimen / Unknown 01/16/2025 5:22 PM EST 01/16/2025 5:23 PM EST Cleve Deleon MD LAB POINT OF CARE TE ST DOCKED DEVICE UNSOLICITED RESULTS Final Result Performing Organization Address City/[facility]/ZIP Co de Phone Number [facility] [address] [place] [address] * [place] Less than 1 Hour Intraoperative (01/16/2025 5:02 PM EST) Narrative IMAGING - 01/16/2025 5:04 PM EST Images were obtained for surgical purposes. See Fransisco Farley's surgical note in the patient's chart for the findings. Fransisco Gaston MD IMG FLUOROSCOPY PROC EDURES Final Result Performing Organization Address [facility] de Phone Number IMAGING * (ABNORMAL) Routine Culture and Gram Stain (01/16/2025 4:14 PM EST) Culture Heavy Growth 01/19/2025 5:17 PM EST [facility] Culture 4+ Biotype 1 Methicillin-Resis tant Staphylococcus aureus(AA) 01/19/2025 5:17 PM EST [facility] Comment: For susceptibility results refer to: - [id number] Edited result: Previously reported as Staphylococcus aureus on 01/17/2025 at 1327 EST. Staphylococcus aureus has been updated to reportable. Culture 2+ Biotype 2 Methicillin-Resis tant Staphylococcus aureus(AA) 01/19/2025 5:17 PM EST [facility] Comment: For susceptibility results refer to: - [id number] Edited result: Previously reported as Staphylococcus aureus on 01/17/2025 at 1327 EST. Staphylococcus aureus has been updated to reportable. Foreign Body Lower back structure / Unknown 01/16/2025 4:14 PM EST 01/16/2025 5:10 PM EST Comment:Pre-op diagnosis: MRSA bacteremia [R78.81, B95.62] us Fransisco Gaston MD LAB MICROBIOLOGY - G ENERAL ORDERABLES Final Result Performing Organization Address City/[facility]/ZIP Co de Phone Number [facility] [address] [place] [address] * Anaerobic Culture (01/16/2025 4:14 PM EST) Culture No anaerobes isolated 01/20/2025 2:57 PM EST [facility] Foreign Body Lower back structure / Unknown 01/16/2025 4:14 PM EST 01/16/2025 5:10 PM EST Comment:Pre-op diagnosis: MRSA bacteremia [R78.81, B95.62] Fransisco Gaston MD LAB MICROBIOLOGY - G ENERAL ORDERABLES Final Result [facility] [address] [place] [address] * Fungal Culture, Routine (01/16/2025 4:05 PM EST) Culture No Fungal Growth at 1 Week 01/24/2025 6:48 AM EST [facility] Abscess Topography unknown / Unknown 01/16/2025 4:05 PM EST 01/16/2025 5:10 PM EST Cleve Deleon MD LAB MICROBIOLOGY - GENERAL OR DERABLES Final Result [facility] [address] [place] [address] * (ABNORMAL) Abscess Culture and Gram Stain (01/16/2025 4:05 PM EST) Culture Light Growth 01/19/2025 5:17 PM EST [facility] Culture 1+ Biotype 1 Methicillin-Resista nt Staphylococcus aureus(AA) 01/19/2025 5:17 PM EST [facility] Comment: The organism value for this result has been updated. These results have been appended to the previously preliminary verified report. Edited result: Previously reported as Staphylococcus aureus on 01/18/2025 at 1547 EST. Staphylococcus aureus has been updated to reportable. Culture 1+ Biotype 2 Methicillin-Resista nt Staphylococcus aureus(AA) 01/19/2025 5:17 PM EST [facility] Comment: The organism value for this result has been updated. These results have been appended to the previously preliminary verified report. Edited result: Previously reported as Staphylococcus aureus on 01/18/2025 at 1547 EST. Staphylococcus aureus has been updated to reportable. Gram Stain Result Rare Gram positive cocci in pairs and chains(A) 01/19/2025 5:17 PM EST [facility] Gram Stain Result Numerous Polymorphonuclear leukocytes(A) 01/19/2025 5:17 PM EST [facility] Abscess Lower back structure / Unknown [...] Staphylococcus aureus Vancomycin SADA 1 ug/ml: Susceptible us Fransisco Gaston MD LAB MICROBIOLOGY - G ENERAL ORDERABLES Final Result Performing Organization Address [facility] Co de Phone Number [facility] [address] [place] [address] * Anaerobic Culture (01/16/2025 4:05 PM EST) [facility] Culture No anaerobes isolated 01/20/2025 2:57 PM EST [facility] Abscess Lower back structure / Unknown 01/16/2025 4:05 PM EST 01/16/2025 5:10 PM EST Comment:Pre-op diagnosis: MRSA bacteremia [R78.81, B95.62] Fransisco Gaston MD LAB MICROBIOLOGY - G ENERAL ORDERABLES Final Result Performing Organization Address [facility] Phone Number [facility] [address] [place] [address] * (ABNORMAL) POCT glucose meter (01/16/2025 3:19 PM EST) [facility] POCT Glucose 123(H) 74 - 99 mg/dL 01/16/2025 3:20 PM EST [facility] Comment:Accuracy of [...] for testing. Comment 01/16/2025 3:20 PM EST [facility] Tank Calibrator ID Mindy Alarcon 01/16/2025 3:20 PM EST [facility] Device ID [id number] 01/16/2025 3:20 PM EST [facility] Specimen Type POC Capillary 01/16/2025 3:20 PM EST [facility] Blood Capillary blood specimen / Unknown 01/16/2025 3:19 PM EST 01/16/2025 3:20 PM EST Cleve Deleon MD LAB POINT OF CARE TE ST DOCKED DEVICE UNSOLICITED RESULTS Final Result Performing Organization Address City/[facility] Co de Phone Number [facility] [address] [place] [address] * (ABNORMAL) POCT glucose meter (01/16/2025 11:52 [...] for testing. Comment 01/16/2025 11:53 AM EST [facility] Tank Calibrator ID Amandeep Ward 01/16/2025 11:53 AM EST [facility] Device ID [id number] 01/16/2025 11:53 AM EST [facility] Specimen Type POC Capillary 01/16/2025 11:53 AM EST [facility] Blood Capillary blood specimen / Unknown 01/16/2025 11:52 AM EST 01/16/2025 11:53 AM EST us Cleve Deleon MD LAB POINT OF CARE TE ST DOCKED DEVICE UNSOLICITED RESULTS Final Result Performing Organization Address City/State/[facility] Co de Phone Number [facility] [address] [place] [address] * (ABNORMAL) POCT glucose meter (01/16/2025 6:34 AM EST) POCT Glucose 142(H) 74 - 99 mg/dL 01/16/2025 6:35 AM EST [facility] Comment:Accuracy of [...] Comment 01/16/2025 6:35 AM EST [facility] Tank Calibrator ID Alice Garber 01/16/2025 6:35 AM EST [facility] Device ID [id number] 01/16/2025 6:35 AM EST [facility] Specimen Type POC Capillary 01/16/2025 6:35 AM EST [facility] Blood Capillary blood specimen / Unknown 01/16/2025 6:34 AM EST 01/16/2025 6:35 AM EST us Demar Jiménez MD LAB POINT OF CARE TE ST DOCKED DEVICE UNSOLICITED RESULTS Final Result Performing Organization Address City/State/[facility] Co de Phone Number [facility] [address] [place] [address] * (ABNORMAL) Urinalysis with reflex microscopic (Culture NOT Included) (01/16/2025 4:51 AM EST) Color, Urine Yellow LAB URINALYSIS - AUTOMATED METHOD 01/16/2025 5:13 AM [facility] Clarity, Urine Clear LAB URINALYSIS - AUTOMATED METHOD 01/16/2025 5:13 AM [facility] Spec Petroleum, Urine 1.012 1.005 - 1.030 LAB URINALYSIS - AUTOMATED METHOD 01/16/2025 5:13 AM [facility] pH, Urine 6.0 5.0 - 8.0 LAB URINALYSIS - AUTOMATED METHOD 01/16/2025 5:13 AM [facility] Protein, Urine Negative Negative mg/dL LAB URINALYSIS - AUTOMATED METHOD 01/16/2025 5:13 AM [facility] Glucose, Urine >=1000(A) Negative mg/dL LAB URINALYSIS - AUTOMATED METHOD 01/16/2025 5:13 AM EST [facility] Ketones, Urine Negative Negative mg/dL LAB URINALYSIS - AUTOMATED METHOD 01/16/2025 5:13 AM EST [facility] Blood, Urine Negative Negative LAB URINALYSIS - AUTOMATED METHOD 01/16/2025 5:13 AM EST [facility] Bilirubin, Urine Negative Negative LAB URINALYSIS - AUTOMATED METHOD 01/16/2025 5:13 AM [facility] Urobilinogen, Urine 0.2 0.2 to 1.0 mg/dL LAB URINALYSIS - AUTOMATED METHOD 01/16/2025 5:13 AM EST [facility] Leukocytes, Urine Negative Negative LAB URINALYSIS - AUTOMATED METHOD 01/16/2025 5:13 AM EST [facility] Nitrite, Urine Negative Negative LAB URINALYSIS - AUTOMATED METHOD 01/16/2025 5:13 AM EST [facility] Urine Urine specimen obtained by clean catch procedure / Unknown Non-blood Collection / Unknown 01/16/2025 4:51 AM EST 01/16/2025 5:02 AM EST us Fransisco Gaston MD LAB URINE ORDERABLES Final Result [facility] [address] [place] [address] * (ABNORMAL) POCT glucose meter (01/16/2025 1:34 AM EST) POCT Glucose 144(H) 74 - 99 mg/dL 01/16/2025 1:37 AM EST [facility] Comment:Accuracy of a glucos [...] for testing. Comment 01/16/2025 1:37 AM EST [facility] Tank Calibrator ID Alice Garber Juan 01/16/2025 1:37 AM EST [facility] Device ID [id number] 01/16/2025 1:37 AM EST [facility] Specimen Type POC Capillary 01/16/2025 1:37 AM EST [facility] Blood Capillary blood specimen / Unknown 01/16/2025 1:34 AM EST 01/16/2025 1:37 AM EST us Demar Jiménez MD LAB POINT OF CARE TE ST DOCKED DEVICE UNSOLICITED RESULTS Final Result [facility] [address] [place] [address] * Blood Culture (Aerobic/Anaerobet Set) (01/16/2025 1:28 AM EST) Culture No growth at day 5 SADA 01/21/2025 4:02 AM EST [facility] Blood Structure of right hand / Unknown Venipuncture / Unknown 01/16/2025 1:28 AM EST 01/16/2025 3:52 AM EST us Fransisco Gaston MD LAB MICROBIOLOGY - G ENERAL ORDERABLES Final Result Performing Organization Address City/[facility]/[place] [address] * (ABNORMAL) Hemoglobin A1c (01/16/2025 12:36 AM EST) Hemoglobin A1c 7.8(H) <5.7 % 01/16/2025 10:21 AM EST [facility] Blood Venous blood specimen / Unknown Venipuncture / Unknown 01/16/2025 12:36 AM EST 01/16/2025 12:41 AM EST Narrative [facility] - 01/16/2025 10:21 AM EST HA1C Interpretive Data: Diagnosis of Diabetes: Diabetic > or = 6.5% Pre-diabetic 5.7 to 6.4% Non-diabetic < or = 5.6% Glycemic Targets for Type I and Type II Diabetics: Non- Adults <7.0% Adults <6.0% Children and Adolescents <7.5% Source: [place]. Standards of medical care in diabetes,2017. Diabetes Care.2017:40 (suppl 1):S1-S135. us Naina Dubois APRN LAB BLOOD ORDERABLES Fi nal Result Performing Organization Address City/[facility]/[place] [address] * Phosphorus (01/16/2025 12:36 AM EST) Phosphorus, Plasma 2.7 2.5 - 4.5 mg/dL 01/16/2025 2:12 AM EST [facility] Blood Venous blood specimen / Unknown Venipuncture / Unknown 01/16/2025 12:36 AM EST 01/16/2025 12:41 AM EST Naina D Silvino ASSOCIATE APPLICATION DEVELOPER LAB BLOOD ORDERABLES Fi nal Result Performing Organization Address [facility]/ZIP Co de Phone Number [facility] [address] [place] [address] * (ABNORMAL) Magnesium (01/16/2025 12:36 AM EST) Magnesium, Plasma 1.7(L) 1.9 - 2.4 mg/dL 01/16/2025 2:12 AM EST [facility] Blood Venous blood specimen / Unknown Venipuncture / Unknown 01/16/2025 12:36 AM EST 01/16/2025 12:41 AM EST Naina Dubois ASSOCIATE APPLICATION DEVELOPER LAB BLOOD ORDERABLES Fi nal Result Performing Organization Address City/[facility] Co de Phone Number [facility] [address] [place] [address] * (ABNORMAL) Procalcitonin (01/16/2025 12:36 AM EST) Procalcitonin, Plasma 0.09(H) <0.09 ng/mL 01/16/2025 2:12 AM EST [facility] Blood Venous blood specimen / Unknown Venipuncture / Unknown 01/16/2025 12:36 AM EST 01/16/2025 12:41 AM EST Narrative [facility] - 01/16/2025 2:12 AM EST Procalcitonin [...] predict 28 day mortality risk. Please consult [email or web address]-[email or web address] for more information. Test performed at [facility]. Naina Dubois APRN LAB BLOOD ORDERABLES Fi nal Result Performing Organization Address [facility] Co de Phone Number [facility] [address] [place] [address] * (ABNORMAL) C-reactive protein (01/16/2025 12:36 AM EST) CRP, Plasma 108.5(H) <=8.0 mg/L 01/16/2025 1:14 AM EST [facility] Blood Venous blood specimen / Unknown Venipuncture / Unknown 01/16/2025 12:36 AM EST 01/16/2025 12:41 AM EST Narrative [facility] - 01/16/2025 1:14 AM EST This CRP test is appropriate for assessment of infection, systemic inflammation and/or tissue injury. To assess cardiovascular disease risk order high sensitivity CRP (CRPH). Fransisco Gaston MD LAB BLOOD ORDERABLES Final Result Performing Organization Address [facility] Co de Phone Number [facility] [address] [place] [address] * (ABNORMAL) Sedimentation Rate, Automated (01/16/2025 12:36 AM EST) Sedimentation Rate 96(H) <30 mm/hr 2024 12:58 AM EST [facility] Blood Venous blood specimen / Unknown Venipuncture / Unknown 01/16/2025 12:36 AM EST 01/16/2025 12:41 AM EST Fransisco Gaston MD LAB BLOOD ORDERABLES Final Result Performing Organization Address City/[facility] Co de Phone Number [facility] [address] [place] [address] * (ABNORMAL) CBC and Differential (01/16/2025 12:36 AM EST) WBC Count 9.75 3.70 - 10.30 10*3/uL LAB HEMATOLOGY METHOD 01/16/2025 12:50 AM EST [facility] RBC Count 2.94(L) 3.90 - 5.20 10*6/uL LAB HEMATOLOGY METHOD 01/16/2025 12:50 AM EST [facility] HGB 9.4(L) 11.2 - 15.7 g/dL LAB HEMATOLOGY METHOD 01/16/2025 12:50 AM EST [facility] HCT 28.1(L) 34.0 - 45.0 % LAB HEMATOLOGY METHOD 01/16/2025 12:50 AM EST [facility] Platelet Count 338 155 - 369 10*3/uL LAB HEMATOLOGY METHOD 01/16/2025 12:50 AM EST [facility] MCV 96 79 - 98 fL LAB HEMATOLOGY METHOD 01/16/2025 12:50 AM EST [facility] MCH 32.0 26.0 - 32.0 pg LAB HEMATOLOGY METHOD 01/16/2025 12:50 AM [facility] MCHC 33.5 30.7 - 35.5 g/dL LAB HEMATOLOGY METHOD 01/16/2025 12:50 AM EST [facility] RDW 14.2 11.5 - 14.5 % LAB HEMATOLOGY METHOD 01/16/2025 12:50 AM EST [facility] MPV 9.2 8.8 - 12.5 fL LAB HEMATOLOGY METHOD 01/16/2025 12:50 AM EST [facility] nRBC 0.0 <=0.0 per 100 WBCs LAB HEMATOLOGY METHOD 01/16/2025 12:50 AM EST [facility] Differential Type Automated LAB HEMATOLOGY METHOD 01/16/2025 12:50 AM EST [facility] Neutrophils % 75 % LAB HEMATOLOGY METHOD 01/16/2025 12:50 AM EST [facility] Lymphocytes % 11 % LAB HEMATOLOGY METHOD 01/16/2025 12:50 AM EST [facility] Monocytes % 10 % LAB HEMATOLOGY METHOD 01/16/2025 12:50 AM EST [facility] Eosinophils % 2 % LAB HEMATOLOGY METHOD 01/16/2025 12:50 AM EST [facility] Basophils % 0 % LAB HEMATOLOGY METHOD 01/16/2025 12:50 AM EST [facility] Immature Granulocytes % 2 % LAB HEMATOLOGY METHOD 01/16/2025 12:50 AM EST [facility] Neutrophils Absolute 7.38(H) 1.60 - 6.10 10*3/uL LAB HEMATOLOGY METHOD 01/16/2025 12:50 AM EST [facility] Lymphocytes Absolute 1.03(L) 1.20 - 3.90 10*3/uL LAB HEMATOLOGY METHOD 01/16/2025 12:50 AM EST [facility] Monocytes Absolute 0.94(H) 0.30 - 0.90 10*3/uL LAB HEMATOLOGY METHOD 01/16/2025 12:50 AM EST [facility] Eosinophils Absolute 0.22 0.00 - 0.50 10*3/uL LAB HEMATOLOGY METHOD 01/16/2025 12:50 AM EST [facility] Basophils Absolute 0.03 0.00 - 0.10 10*3/uL LAB HEMATOLOGY METHOD 01/16/2025 12:50 AM EST [facility] Immature Granulocytes Absolute 0.15(H) 0.00 - 0.06 10*3/uL LAB HEMATOLOGY METHOD 01/16/2025 12:50 AM EST [facility] Blood Venous blood specimen / Unknown Venipuncture / Unknown 01/16/2025 12:36 AM EST 01/16/2025 12:41 AM EST Narrative [facility] - 01/16/2025 12:50 AM EST Therapeutic decision making should be based on absolute values, rather than percentages. us Fransisco Gaston MD LAB BLOOD ORDERABLES Final Result [facility] [address] [place] [address] * (ABNORMAL) Comprehensive Metabolic Panel, Plasma (01/16/2025 12:36 AM EST) Glucose, Plasma 141(H) 74 - 99 mg/dL 01/16/2025 1:14 AM EST [facility] BUN, Plasma 17 8 - 23 mg/dL 01/16/2025 1:14 AM [facility] Creatinine, Plasma 0.97 0.60 - 1.10 mg/dL 01/16/2025 1:14 AM [facility] BUN/Creatinine Ratio 18 01/16/2025 1:14 AM [facility] Sodium, Plasma 137 136 - 145 mmol/L 01/16/2025 1:14 AM [facility] Potassium, Plasma 4.1 3.6 - 4.9 mmol/L 01/16/2025 1:14 AM [facility] Chloride, Plasma 103 97 - 107 mmol/L 01/16/2025 1:14 AM [facility] CO2, Plasma 22 22 - 29 mmol/L 01/16/2025 1:14 AM [facility] Anion Gap 12 6 - 16 mmol/L 01/16/2025 1:14 AM [facility] Total Calcium, Plasma 9.0 8.9 - 10.2 mg/dL 01/16/2025 1:14 AM [facility] Total Protein 6.1(L) 6.3 - 7.9 g/dL 01/16/2025 1:14 AM [facility] Albumin, Plasma 2.9(L) 3.5 - 5.2 g/dL 01/16/2025 1:14 AM [facility] AST, Plasma 77(H) 10 - 35 U/L 01/16/2025 1:14 AM [facility] ALT, Plasma 54(H) 10 - 35 U/L 01/16/2025 1:14 AM [facility] Alkaline Phosphatase, Plasma 271(H) 46 - 142 U/L 01/16/2025 1:14 AM [facility] Total Bilirubin, Plasma 0.4 0.2 - 1.1 mg/dL 01/16/2025 1:14 AM [facility] eGFRcr 61.4 mL/min/1.7 3m*2 01/16/2025 1:14 AM [facility] Comment:Reported eGFRcr in m L/min/1.73m2 is based the CKD-EPI 2020 equation that does not use a race coefficient. Blood Venous blood specimen / Unknown Venipuncture / Unknown 01/16/2025 12:36 AM EST 01/16/2025 12:41 AM EST Result Kristyn Gaston MD LAB BLOOD ORDERABLES Final Result Performing Organization Address City/[facility]/ZIP Co de Phone Number [facility] [address] [place] [address] * (ABNORMAL) APTT (01/16/2025 12:36 AM EST) aPTT 36(H) 25 - 35 sec LAB COAGULATION METHOD 01/16/2025 1:15 AM EST [facility] Blood Venous blood specimen / Unknown Venipuncture / Unknown 01/16/2025 12:36 AM EST 01/16/2025 12:41 AM EST us Fransisco Gaston MD LAB BLOOD ORDERABLES Final Result Performing Organization Address City/[facility] Co tx Phone Number [facility] [address] [place] [address] * (ABNORMAL) Prothrombin Time/INR (01/16/2025 12:36 AM EST) Prothrombin Time 15.3(H) 12.0 - 14.3 sec LAB COAGULATION METHOD 01/16/2025 1:15 AM EST [facility] INR 1.2(H) 0.9 - 1.1 LAB COAGULATION METHOD 01/16/2025 1:15 AM EST [facility] Blood Venous blood specimen / Unknown Venipuncture / Unknown 01/16/2025 12:36 AM EST 01/16/2025 12:41 AM EST Narrative [facility] - 01/16/2025 1:15 AM EST OPTIMAL INR RANGES FOR PATIENT ON ORAL ANTICOAGULANT THERAPY Prevention of venous thromboembolism INR 2.0 to 3.0 In patients with heart disease: Atrial fibrillation INR 2.0 to 3.0 Valvular heart disease INR 2.0 to 3.0 Tissue heart valves INR 2.0 to 3.0 Mechanical prosthetic valves INR 2.5 to 3.5 Prevention of recurrent RI INR 2.5 to 3.5 us Fransisco Gaston MD LAB BLOOD ORDERABLES Final Result [facility] [address] [place] [address] * Type and Screen (01/16/2025 12:36 AM EST) ABO/Rh A Positive 01/16/2025 12:39 AM EST [facility] Antibody Screen Negative 01/16/2025 12:39 AM EST [facility] Specimen Expiration 01/19/2025 23:59 01/16/2025 12:39 AM EST [facility] Blood Venous blood specimen / Unknown Venipuncture / Unknown 01/16/2025 12:36 AM EST 01/16/2025 12:39 AM EST Fransisco Gaston MD LAB BLOOD BANK TEST ORDERABLES Final Result Performing Organization Address [facility]/ZIP Co de Phone Number BLOOD BANK [address] [place] [address] documented in this encounter Visit Diagnoses Diagnosis [...] 5 Units, Subcutaneous, Daily, First dose on 01/20/25 at 1315, Until Discontinued, Routine Given 01/23/2025 [...] 8:53 AM EST 30 mg nystatin (Mycostatin) [id number] UNIT/GM powder 1 Application Topical, 2 times [...] 01/19/2025 4:00 AM EST 183 mL/hr New 01/19/2025 3:00 AM EST 1,500 mg 183.3 [...] Routine 2116 (Given - Provider: Christina Fritz, RN) 2142 (Given - Provider: Christina Fritz RN) carvedilol (Coreg) tablet 25 mg 25 mg, Oral, 2 times daily, First dose on Wed01/16/25 at 0915, Until Discontinued, Routine 0853 (Given - Provider: David Wheeler RN)2116 (Given - Provider: Christina Fritz, RAI) 0842 (Given - Provider: Felisa Whitlock, RAI)2142 (Given - Provider: Christina Fritz, RAI) 0821 (Given - Provider: Ariadne Adame, RAI) enoxaparin (Lovenox) syringe 40 mg 40 mg, Subcutaneous, Daily, First dose on Wed01/17/25 at 1245, Until Discontinued, Routine 0853 (Given - Provider: David Wheeler RN) 0843 (Given - Provider: Felisa Whitlock, RAI) 0822 (Given - Provider: Ariadne Adame, RAI) ferrous sulfate EC tablet 324 mg 324 mg, Oral, 2 times daily with meals, First dose on Wed01/16/25 at 0830, Until Discontinued 0852 (Given - Provider: David Wheeler RN)1733 (Given - Provider: David Wheeler RN) 0842 (Given - Provider: Felisa Whitlock, RAI)1754 (Given - Provider: Felisa Whitlock, RAI) 0821 (Given - Provider: Ariadne Adame, RAI) insulin glargine-yfgn 100 UNIT/ML injection 5 Units 5 Units, Subcutaneous, Daily, First dose on Wed01/20/25 at 1315, Until Discontinued, Routine 0853 (Given - Provider: David Wheeler RN) 0842 (Given - Provider: Felisa Whitlock, RAI) 0821 (Given - Provider: Ariadne Adame, RAI) [...] parameters not met)1302 (Given - Provider: Felisa Whitlock RN)1753 (Given - Provider: Felisa Whitlock RN) 0818 [...] Fritz RN - Reason: Order parameters not met)2235 (Not Given - Provider: Christina Fritz RN - Reason: Order parameters not met) 0306 (Not Given - Provider: Christina Fritz RN - Reason: Order parameters not met)2043 (Not Given - Provider: Christina Fritz RN - Reason: Order parameters not met) 0247 (Not Given - Provider: Christina Fritz RN - Reason: Order parameters not met) miconazole nitrate ointment Topical, 2 times daily, First dose on Wed01/16/25 at 1315, Until Discontinued, Routine 0854 (Given - Provider: David Wheeler RN)2117 (Given - Provider: Christina Fritz RN) 0844 (Given - Provider: Felisa Whitlock RN)2144 (Given - Provider: Christina Fritz RN) 0836 (Given - Provider: Ariadne Adame, RAI) NIFEdipine XL (Procardia XL) 24 hr tablet 30 mg 30 mg, Oral, Daily, First dose on Wed01/16/25 at 1030, Until Discontinued, Routine 0853 (Given - Provider: David Wheeler RN) 0842 (Given - Provider: Felisa Whitlock, RAI) 0821 (Given - Provider: Ariadne Adame, RAI) nystatin (Mycostatin) [id number] UNIT/GM powder 1 Application Topical, 2 times daily, First dose on Wed01/16/25 at 0900, Until Discontinued, Routine 0853 (Given - Provider: David Wheeler RN)2116 (Given - Provider: Christina Fritz RN) 0844 (Given - Provider: Felisa Whitlock RN)2143 (Given - Provider: Christina Fritz RN) 0825 (Given - Provider: Ariadne Adame, RAI) pantoprazole (Protonix) EC tablet 40 mg 40 mg, Oral, 2 times daily, First dose on Wed01/16/25 at 0900, Until Discontinued, Routine 0853 (Given - Provider: David Wheeler RN)2116 (Given - Provider: Christina Frizt RN) 0841 (Given - Provider: Felisa Whitlock RN)2142 (Given - Provider: Christina Fritz RN) 0820 (Given - Provider: Ariadne Adame RN) polyethylene glycol (Miralax) packet 17 g 17 g, Oral, Daily, First dose on Wed01/21/25 at 1215, Until Discontinued, Routine 1232 (Given - Provider: David Wheeler RN) 0841 (Given - Provider: Felisa Whitlock RN) 0821 (Given - Provider: Ariadne Adame, RAI) rosuvastatin (Crestor) tablet 10 mg 10 mg, [...] RN) 0842 (Given - Provider: Felisa Whitlock RN)2143 (Given - Provider: Christina Fritz RN) 0820 [...] Fritz RN)1255 (Canceled Entry - Provider: Felisa Whitlock, RN) 0130 (Canceled Entry - Provider: Felisa Whitlock, RAI)1330 (Canceled Entry - Provider: Automatic Discharge Provider [...] Christina Fritz RN)0426 (Stopped - Provider: David Wheeler, RN) vancomycin (Vancocin) 1,250 mg in sodium [...] Wheeler RN) 0840 (Given - Provider: Felisa Whitlock, RAI) 0821 [...] on Wed01/16/25 at 0105, Until Wed01/23/25 at 151, Routine, wheezing, shortness of breath lactulose (Chronulac) 10 GM/15ML solution 20 g 20 g, Oral, 2 times daily PRN, Starting on Wed01/21/25 at 1128, Until Wed01/23/25 at 151, Routine, constipation melatonin tablet 3 mg 3 [...] or greater 2116 (Given - Provider: Christina Fritz, RN) 0841 (Given - Provider: Felisa Whitlock, RAI)2143 (Given - Provider: Christina Fritz RN) simethicone (Mylicon) chewable tablet 80 mg 80 mg, Oral, 4 times daily PRN, Starting on Wed01/16/25 at 0106, Until Wed01/23/25 at 1513, Routine, flatulence sodium chloride 0.9 % flush [...] peripheral IV (CANCELED) Once, On Wed01/16/25 at 0103, For 1 occurrence And Saline lock IV (CANCELED) Once, On Wed01/16/25 at 0103, For 1 occurrence And sodium chloride 0.9 [...] documented as of this encounter Care Teams Line Erector Relationship Specialty Start Date End Date Chase Gunn MD [facility] [address] [place] [address] PCP - General 06/21/20 documented as of this encounter
--- OUTSIDE RECORDS SUMMARY | 2025-01-16 15:00 | XMS_ITS | Encounter Summary ---
Author Organization Healthcare Address [address] [place] [address] Care Team Providers Care Hand Shaper Name Role Phone Chase Gunn MD Primary Care Provider + [phone] Reason for Visit * Auth/Cert (Routine) Specialty Diagnoses / Procedures Referred By Rick roman Referred To Contact Diagnoses Sepsis (CMS/HCC) infected spinal cord stimulator, MRSA Demar Jiménez MD [address] [place] [address] Phone: tel: fax: [facility] A Inpatient [address] [place] [address] Referral ID Status Reason Start Date Expiration Date Visits Re quested Visits Authorized [id number] 1 1 Encounter Details Date Type Department Care Team (Late st Contact Info) Description 01/16/2025 3:00 PM EST - 01/16/2025 5:10 PM EST Surgery P[facility] A OPERATING ROOM [address] [place] [phone] Fransisco Farley MD [address] [facility] [address] [place] [id number] EXPLORATION, WOUND, POSSIBLE SCS REMOVAL/REVISION, ALL OTHER [...] any time in the past 12 m [facility], were you homeless or living in a long term (including now)? No 01/16/2025 [facility] Utilities Answer Date Recorded In the [...] from the original note were not included. [id number] What is Sepsis? Sepsis is a very [...] (ICU). Last Reviewed Date: 2024 00:00:00 ?? [id number] [employer]. All rights reserved. This information is not intended as a substitute for professional medical care. Always follow your healthcare professional's instructions. * Inga LozanoFHJerome Hercules, RAI - 01/23/2025 12:18 PM EST Images from the original note were not included. [id number] Understanding Sepsis Sepsis is a life-threatening problem [...] . Last Reviewed Date: 2024 00:00:00 ?? [id number] [employer]. All rights reserved. This information is not intended as a substitute for professional medical care. Always follow your healthcare professional's instructions. * [facility] Jerome Henderson RN - 01/23/2025 12:18 PM EST Images from the original note were not included. [id number] Bacteremia, Suspected (Adult) Bacteremia is a bacterial [...] Lung infection (pneumonia) ? Infection of a director medical safety placed in a vein or the bladder [...] provider Last Reviewed Date: 2024 00:00:00 ?? [id number] [employer]. All rights reserved. This information is not intended as a substitute for professional medical care. Always follow your healthcare professional's instructions. * Progress Notes - Amanda Meza RN - 01/23/2025 10:13 AM EST Case Management Discharge Note Rosa Perdomo 74 y.o. female CSN: [id number] Admission: 01/15/2025 9:57 PM Primary Problem: Postoperative sepsis (CMS/HCC) Primary Ore Miner: Patient is going to [facility] where staff can assist with care needs Assistance Available at Discharge: Current Outpatient/Agency/Support Group: clinic(s), DME Availability of Care Givers (#Hours): 24 hours (staff at [facility]) Family/Ore Miner(s) Willingness Assessed to care for patient at home: Yes Family/Ore Miner(s) Readiness Assessed to care for patient at home: Yes Housing Circumstances-Z Codes: Housing Circumstances (select all that apply): None Applicable Patient Referred to Financial or Community Resources: No community resources needed at this time. Going to [facility] Discharge Facility/Level of Care Needs: Discharge Facility/Level of Care Needs: 3-Halfway Facility ([facility]) Patient's Choice of Community Agency(s): Patient's Choice of Community Agency(s): [facility] Patient/Family Anticipated Services at Transition: Patient/Family Anticipated Services at Transition: rehabilitation services, longterm ([facility]) DME/Equipment Needed after Discharge: Equipment Currently Used at Home: walker, rollator, shower chair Equipment Needed After Discharge: other (see comments) (per [facility]) Readmission Within the Last 30 Days: Readmission Within the Last 30 Days: no previous admission in last 30 days Medicare Documentation: Medicare Second Notice?: Yes Date Second Notice Completed: 01/22/25 Time Second Notice Completed: 1111 Medicare Second Notice Recieved By: patient Follow-up: Chase Gunn MD [address] [place] [address] [place] [address] Discharge Transportation: Transportation Anticipated: other (see comments) (W/C transport, grape picker at 2 pm.) Transportation Home at [...] Has Acute recs, but request DESTINEY at [facility]. Per admissions (Stacey), they can accept patient today. Patient will need to be on Vancomycin for discharge, not Dapto. Number for report: [phone] (Unit 1) MD Summary: [phone] Narcs: [facility]ley Mitchell in [place] Transport: [facility], , Stacey (facility) and spouse [...] PCP name and Address: Chase Gunn MD [address] [place] [address] / [facility] [address] Referring provider name and address: Chase Gunn MD [address] [facility] [address] [place] [address] Chief Concern, Brief History of Present Illness, [...] at discharge. She was discharged to a longterm facility with a plan for continued IV [...] disorder with single episode, in remission (CMS/HCC) MADLEEINE (iron deficiency anemia) Gastroesophageal reflux disease without [...] present. Discharge Disposition/Condition Disposition: Nursing facility (specify) [facility] Condition: Stable (s/sx potential problems absent or [...] Ongoing, Progressing Intervention: Promote Activity and Functional J[place] Flowsheets Taken 01/22/20252050 Self-Care Promotion: independence encouraged [...] Walker DO Infectious Disease Fellow, PGY-5 Pager: [phone] Epic Chat Preferred * Care Plan - [...] OPAT Team Attn: Dr. Sinha Fax #: [phone] Appointments: Co-clinic with JORGE Keating, & Dr. Sinha on 01/31/2025 at 1:00pm at: [facility]: [address] [place] [address] (Select Option 3 for IV Antibiotic / PICC line related issues) For questions regarding OPAT prior to discharge, reach out to the OPAT team via [employer] Secure Chat (Group: OPAT Referral Team). For all questions regarding OPAT after discharge should be directed to the OPAT Team at (Select Option 3 for IV Antibiotics/PICC Issues) between 8am-5pm. After 5 pm, or during weekends/ holidays, please call the paging press operator carbon products at to reach the on-call ID fellow. [...] Note Rosa Perdomo 74 y.o. female CSN: [id number] Admission: 01/15/2025 9:57 PM Primary Problem: Postoperative [...] Has Acute recs, but request DESTINEY at [facility]. Per admissions (Stacey), they cannot accept patient on Daptomycin. Discussed with MD, will remain on Vancomycin through 02/13/24. Number for report: [phone] (Unit 1) DC Summary: [phone] Narcs: [facility]ley Mitchell in [place] Transport: Patient not qualifying for ambulance. Concerns over transfers into vehicle. Meets < 300% [facility]. W/C Transport arranged via CM office with [facility] for 01/23 at 11 am. Nurse, [...] Ongoing, Progressing Intervention: Promote Activity and Functional Jerauld Flowsheets Taken 01/22/2025 0756 Adaptive Equipment Use: [...] Ongoing, Progressing Intervention: Promote Activity and Functional Jerauld Flowsheets Taken 01/22/2025224 Self-Care Promotion: independence encouraged [...] Ongoing, Progressing Intervention: Promote Activity and Functional Jerauld Flowsheets (Taken 01/21/20251127) Activity Assistance Provided: assistance, [...] Ongoing, Progressing Intervention: Promote Activity and Functional Jerauld Flowsheets Taken 01/20/20252101 Self-Care Promotion: independence encouraged BADL personal objects within reach Taken 01/20/20251999 Activity Assistance Provided: assistance, 2 people * Procedures - Cailin Ha RN - 01/20/2025 5:07 PM ESTAssociated Order(s): Insert PICC line Insert PICC line Date/Time: 01/20/2025 5:08 PM Performed by: Cailin Ha RN Authorized by: Cleve Deleon MD [place] Protocol: Verbal consent obtained?: Yes Written consent [...] preference. Patient position: Supine Catheter Lot #: [id number] Catheter endless steamer tender: Nuubo Catheter placed: Single lumen Catheter size: 4 [...] Ongoing, Progressing Intervention: Promote Activity and Functional Jerauld Flowsheets (Taken 01/20/20251012) Activity Assistance Provided: assistance, [...] Ongoing, Progressing Intervention: Promote Activity and Functional Jerauld Flowsheets Taken 01/20/2025200 Self-Care Promotion: BADL personal [...] Note Rosa Perdomo 74 y.o. female CSN: [id number] Admission: 01/15/2025 9:57 PM Primary Problem: Postoperative sepsis (CMS/HCC) Anticipated Discharge Date: 01/21 Has Discharge Plans Changed? No - home or agreeable to SNF (requesting [facility] if needed) Medicare Second Notice: Medicare [...] placed. PT/OT recs for Acute. Patient requesting [facility] because it is closer to home. Spouse had also previously indicated that Is where they would want her to go. Spoke with Stacey at facility (admissions) who is reviewing. Referrals also sent to other facilities. CM will continue to follow for discharge needs. Amanda Meza RN * Progress Notes - Renae Resendiz, METEOROLOGIST LIAISON, EDVIN - 01/19/2025 11:01 AM EST Images [...] is no recent study available for direct [id number]-mr-[id number] comparison. CT Lumbar Spine w IV Contrast [...] Value Units Date/Time Blood Culture (Aerobic/Anaerobet Set) [[id number]] Collected: 01/18/25 1323 Order Status: Sent Specimen: Blood, Venous Fungal Culture, Routine [[id number]] Collected: 01/16/25 1605 Order Status: Completed Specimen: Abscess from Back, Lower Updated: 01/18/25 1041 Culture No Fungal Growth <1 Week Fungal Culture, Tissue and DEANDRE [[id number]] Collected: 01/16/25 1614 Order Status: Completed Specimen: Foreign Body from Back, Lower Updated: 01/18/25 1022 Culture Reading Mycological 4 Weeks No Fungal Growth <1 Week DEANDRE Source not suitable for smear Blood Culture (Aerobic/Anaerobet Set) [[id number]] Collected: 01/16/25 0128 Order Status: Completed Specimen: Blood from Hand, Right Updated: 01/18/25 0403 Culture No growth at day 2 Routine Culture and Gram Stain [[id number]] (Abnormal) Collected: 01/16/25 1614 Order Status: Completed Specimen: Foreign Body from Back, Lower Updated: 01/17/25 1327 Culture Heavy Growth 4+ Biotype 1 Staphylococcus aureus 2+ Biotype 2 Staphylococcus aureus Abscess Culture and Gram Stain [[id number]] (Abnormal) Collected: 01/16/25 1605 Order Status: Completed [...] Non Respiratory Source and Acid Fast Stain [[id number]] Collected: 01/16/25 161 Order Status: Completed Specimen: Foreign Body from Back, Lower Updated: 01/17/25 0557 Acid Fast Stain Source not suitable for smear Anaerobic Culture [[id number]] Collected: 01/16/25 160 Order Status: Sent Specimen: Abscess from Back, Lower Updated: 01/16/251709 AFB Culture, Non Respiratory Source and Acid Fast Stain [[id number]] Collected: 01/16/25 160 Order Status: Canceled Specimen: Abscess from Back, Lower Updated: 01/16/251709 Fungal Culture, Sterile Body Fluid (NOT CSF) and DEANDRE [[id number]] Collected: 01/16/251604 Order Status: Canceled Specimen: Abscess from Back, Lower Updated: 01/16/251709 Anaerobic Culture [[id number]] Collected: 01/16/251613 Order Status: Sent Specimen: Foreign [...] showed MRSA and she was transferred to [facility] for further management. Blood cultures collected at [facility] on 01/16 show NGTD. TIFFANIELEIDY took her [...] in their operative note. No indication of IT TEACHER involvement. OPAT orders are in - will [...] counseling and treatment * Consults - Suellen Pelitez - 01/19/2025 9:50 AM EST Adult Nutrition Evaluation Note Rosa Perdomo 74 y.o. female CSN: [id number] Room/Bed 135/135A Nutrition evaluation type: follow-up Reason for evaluation: Hospital course: 74 y/o F presented as a transfer from OSH for MRSA bacteremia. 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 S/p device explantation on 01/16/25 with Neurosurgery. [...] Supplemental oxygen O2 Delivery Method: Nasal cannula [place] Coma Scale Score: 15 Isael Scale Score: [...] 37.74 Weight Evaluation: Obese-Class 2 (BMI 35-39.9) [place] Body Weight (kg): 52.2 Percent [place] Body Weight: 185 Adjusted Body Weight (kg): 63.4 Wt Readings from Last 10 Encounters: 01/16/25 96.6 kg (213 lb) 07/30/22 89.8 kg (198 lb) Estimated Needs: Metabolic Cart Study Results: Current Nutrition Intake: Diet Order: Adult Diet Diet Texture: Regular Adult Carbohydrate Restriction: Consistent CHO 2 (3453-5649 Feng, 80 g/meal) Percent Meals Eaten (%): 82% avg x 4 meals Diet Experience and Nutrition History: Diet Education Provided: Will monitor Pertinent home medications: [facility] needs: Nutrition Focused Physical Exam: Physical exam [...] Ongoing, Progressing Intervention: Promote Activity and Functional Jerauld Flowsheets Taken 01/19/2025 0913 Adaptive Equipment Use: [...] Ongoing, Progressing Intervention: Promote Activity and Functional Jerauld Flowsheets Taken 01/18/20251958 Self-Care Promotion: independence encouraged [...] 01/18/2025 2:30 PM EST Pastoral Care Note Command And Control made follow up visit with Rosa and introductory visit with her family. They are aware ofPastoral Services and availability. Referral From: Command And Control Initiated Pastoral Care Provided For: Patient, Spouse, Child(odalis) Patient Profile: Consult Reasons: Initial visit Spiritual Assessment: Support Systems/ Spiritual Resources: Prayer Spiritual Needs: Emotional support Spiritual Issues: Change/ transition Interventions: Interventions Provided: Introduced Patient/Family to Command And Control Services Pastoral Care Outcomes: Patient Outcomes: Is knowledgeable about Sociology Professor Services Giancarlo Pradhan * Procedures - Ethel [...] is no recent study available for direct [id number] comparison. CT Lumbar Spine w IV Contrast [...] Value Units Date/Time Blood Culture (Aerobic/Anaerobet Set) [[id number]] Collected: 01/18/25 1323 Order Status: Sent Specimen: Blood, Venous Fungal Culture, Routine [[id number]] Collected: 01/16/25 1605 Order Status: Completed Specimen: Abscess from Back, Lower Updated: 01/18/25 1041 Culture No Fungal Growth <1 Week Fungal Culture, Tissue and DEANDRE [[id number]] Collected: 01/16/25 1614 Order Status: Completed Specimen: Foreign Body from Back, Lower Updated: 01/18/25 1022 Culture Reading Mycological 4 Weeks No Fungal Growth <1 Week DEANDRE Source not suitable for smear Blood Culture (Aerobic/Anaerobet Set) [[id number]] Collected: 01/16/25 0128 Order Status: Completed Specimen: Blood from Hand, Right Updated: 01/18/25 0403 Culture No growth at day 2 Routine Culture and Gram Stain [[id number]] (Abnormal) Collected: 01/16/251613 Order Status: Completed Specimen: Foreign Body from Back, Lower Updated: 01/17/25 1327 Culture Heavy Growth 4+ Biotype 1 Staphylococcus aureus 2+ Biotype 2 Staphylococcus aureus Abscess Culture and Gram Stain [[id number]] (Abnormal) Collected: 01/16/25 160 Order Status: Completed [...] Non Respiratory Source and Acid Fast Stain [[id number]] Collected: 01/16/251613 Order Status: Completed Specimen: Foreign Body from Back, Lower Updated: 01/17/25 0557 Acid Fast Stain Source not suitable for smear Anaerobic Culture [[id number]] Collected: 01/16/251604 Order Status: Sent Specimen: Abscess from Back, Lower Updated: 01/16/25 1710 AFB Culture, Non Respiratory Source and Acid Fast Stain [[id number]] Collected: 01/16/251604 Order Status: Canceled Specimen: Abscess from Back, Lower Updated: 01/16/25 1710 Fungal Culture, Sterile Body Fluid (NOT CSF) and DEANDRE [[id number]] Collected: 01/16/251604 Order Status: Canceled Specimen: Abscess from Back, Lower Updated: 01/16/25 1710 Anaerobic Culture [[id number]] Collected: 01/16/251613 Order Status: Sent Specimen: Foreign [...] showed MRSA and she was transferred to [facility] for further management. Blood cultures collected at [facility] on 01/16 show NGTD. NSLEIDY took her [...] in their operative note. No indication of IT TEACHER involvement. OPAT orders are in - will [...] admitted 01/15/2025 for work-up of Postoperative sepsis ([facility]). Problem List Active Hospital Problems Diagnosis Date Noted Date Diagnosed Postoperative sepsis ([facility]) 01/16/2025 Mixed hyperlipidemia 01/16/2025 Cellulitis of back except buttock 01/16/2025 Major depressive disorder with single episode, in remission ([facility]) 01/16/2025 MRSA bacteremia 01/16/2025 MADELEINE (iron deficiency anemia) 01/16/2025 Gastroesophageal reflux disease without esophagitis 01/16/2025 Transaminitis 01/16/2025 Hypertension 02/29/2024 Diabetes mellitus 02/29/2024 Procedures 01/16/2025 Procedures: EXPLORATION, WOUND, POSSIBLE SCS REMOVAL/REVISION, ALL OTHER INDICATED PROCEDURES Past Medical History Patient has a past medical history of Abnormal EKG, Anemia, Breast cyst, CKD (chronic kidney disease) stage 3, GFR 30-59 ml/min ([facility]), Depression, Diabetes mellitus, Dyspnea, HLD (hyperlipidemia), HTN (hypertension), Mitral valve prolapse, Paroxysmal A-fib, RSV (respiratory syncytial virus infection), Sciatica, SVT (supraventricular tachycardia) ([facility]), and Trigger finger. Past Surgical History Patient has a past surgical history that includes Colonoscopy; Esophagogastroduodenoscopy; Wrist surgery; Hernia repair; and Cholecystectomy. Precautions Medical Precautions: Fall precautions, Seizure precautions Subjective Pt and RN agreeable to initial OT evaluation. Pt reports she has not been out of bed in days. Participants in Care Family/Caregiver Present: No Equalizer Operator: Not Applicable Presentation Oxygen Therapy: Supplemental [...] Spouse Level of Mobility: Ambulatory- community Mobility Jerauld: Independent gait without device History of Falls: [...] Mobility Bed Mobility Exam: Scooting/Bridging Level of Jerauld: Dependent (scooting hips forward to edge of bed) Physical/Nonphysical Assist: Verbal Cues, Nonverbal cues (demo/gestures), Maximal cues, Additional assist utilized for safety Bed Mobility Exam: Supine to Sit Level of Jerauld: Moderate assist (50% patient's effort) Physical/Nonphysical Assist: HOB elevated, Moderate cues, Verbal Cues Assistive Device: Bed rails Transfers Transfer Exam: Sit to stand Level of Jerauld: Moderate assist (50% patient's effort) (x2 reps from edge of bed - 1st rep SET UP MACHINIST, 2nd rep to RW) Physical/Nonphysical Assist: Verbal Cues, Maximal cues, Additional assist utilized for safety Assistive Device: Walker, rolling Transfer Exam: Stand to Sit Level of Jerauld: Moderate assist (50% patient's effort) (poorly controlled descent) Physical/Nonphysical Assist: Verbal Cues, Maximal cues, Additional assist utilized for safety Assistive Device: Walker, rolling Transfer Exam: Bed to Chair/Chair to Bed Level of Jerauld: Moderate assist (50% patient's effort) (with significantly [...] a helper. 5 Set-up or Clean-up Assistance [place] sets up or cleans up; patient completes activity. [place] assists only prior to or following the activity. 4 Supervision or touching assistance [place] provides verbal cues and/or touching/steadying and/or contact guard assistance as patient completes activity. Assistance may be provided throughout the activity or intermittently. 3 Partial/Moderate Assistance [place] does LESS THAN HALF the effort. [place] lifts, holds or supports trunk or limbs, but provides less than half the effort. 2 Substantial/Maximal Assistance [place] does MORE THAN HALF the effort. [place] lifts or holds trunkor limbs and provides more than half the effort. 1 Dependent [place] does ALL of the effort. Patient does [...] admitted 01/15/2025 for work-up of Postoperative sepsis ([facility]). Problem List Active Hospital Problems [...] kidney disease) stage 3, GFR 30-59 ml/min ([facility]/HCC), Depression, Diabetes mellitus, Dyspnea, HLD (hyperlipidemia), HTN (hypertension), Mitral valve prolapse, Paroxysmal A-fib, RSV (respiratory syncytial virus infection), Sciatica, SVT (supraventricular tachycardia) ([facility]), and Trigger finger. Past Surgical History Patient has a past surgical history that includes Colonoscopy; Esophagogastroduodenoscopy; Wrist surgery; Hernia repair; and Cholecystectomy. Precautions Medical Precautions: Fall precautions, Seizure precautions Subjective Pt was agreeable to therapy today. Pt was glad to get to the chair today to brush her hair and her teeth. Participants in Care Family/Caregiver Present: No Equalizer Operator: Not Applicable Presentation Oxygen Therapy: Supplemental [...] Spouse Level of Mobility: Ambulatory- community Mobility Jerauld: Independent gait without device History of Falls: [...] Mobility Bed Mobility Exam: Scooting/Bridging Level of Jerauld: Dependent (scooting hips forward to edge of bed) Physical/Nonphysical Assist: Verbal Cues, Nonverbal cues (demo/gestures), Maximal cues, Additional assist utilized for safety Bed Mobility Exam: Supine to Sit Level of Jerauld: Moderate assist (50% patient's effort) Physical/Nonphysical Assist: HOB elevated, Moderate cues, Verbal Cues Transfers Transfer Exam: Sit to stand Level of Jerauld: Moderate assist (50% patient's effort) (x2 reps from edge of bed - 1st rep SET UP MACHINIST, 2nd rep to RW) Physical/Nonphysical Assist: Verbal Cues, Maximal cues, Additional assist utilized for safety Assistive Device: Walker, rolling Transfer Exam: Stand to Sit Level of Jerauld: Moderate assist (50% patient's effort) (poorly controlled descent) Physical/Nonphysical Assist: Verbal Cues, Maximal cues, Additional assist utilized for safety Assistive Device: Walker, rolling Transfer Exam: Bed to Chair/Chair to Bed Level of Jerauld: Moderate assist (50% patient's effort) (with significantly [...] below. Therapeutic Exercise (8 minutes) Access Code: [email or web address] URL: [email or web address] Date: 01/18/2025 Prepared by: kP Exercises - Seated Ankle Pumps - 1 [...] exercises. Pt demonstrated verbal understanding. Standardized Assessments [facility] 6-Clicks Mobility Assessment Difficulty patient has turning [...] 3-5 steps with a railing?: A lot [facility] 6-Clicks Mobility Assessment Total : 12 No [...] Note Rosa Perdomo 74 y.o. female CSN: [id number] Admission: 01/15/2025 9:57 PM Primary Problem: Postoperative sepsis (CMS/HCC) Anticipated Discharge Date: 01/23 Has Discharge Plans Changed? No - home or agreeable to SNF (requesting [facility] if needed) Medicare Second Notice: NA [...] orders and - eval pending. Patient requesting [facility] if needed. CM will continue to follow for discharge needs. Addendum: PT/OT recs for Acute rehab. Difference between Acute and Subacute explained to patient. Patient states she would like to go to [facility] as it is closer to home. Attempted to reach spouseper patient request to also discuss with him. Unable to reach, unable to leave . Referrals to be made for [facility] when therapy notes are in. left for admissions at [facility]. Amanda Meza RN * Care Plan - [...] Pain and Promote Comfort Flowsheets (Taken 01/17/2025 8757) Pain Management Interventions: medication (see MAR) Intervention: [...] 01/17/2025 8:45 PM EST Pastoral Care Note Command And Control visited with Rosa, she reports she wants a visit but this is not the best time. Chaplainwill follow up tomorrow as able. Referral From: Command And Control Initiated Pastoral Care Provided For: Patient Patient Profile: Consult Reasons: Initial visit Spiritual Assessment: Support Systems/ Spiritual Resources: Family Spiritual Needs: Emotional support Interventions: Interventions Provided: Introduced Patient/Family to Command And Control Services Pastoral Care Outcomes: Patient Outcomes: Is knowledgeable about Sociology Professor Services Giancarlo Pradhan * Progress Notes - [...] Single Lumen PICC Patient Specific Outpatient Circumstances: [address] [place] [address] Contact information Rosa Perdomo [phone] (home) Extended Emergency Contact Information Primary Emergency Contact: Westley Perdomo Davis Relation: Spouse Equalizer Operator needed? No Secondary Emergency Contact: Oumou Ocasio Relation: Daughter Outpatient services (including home infusion, home health, facility referral: See recent [facility] case management/social work note for finalization of services ID follow up appointment: Future Appointments Date Time Provider Department Center 01/31/2025 1:00 PM Dona Nava PA [id number] [place] Patient Assessment After review and discussion with the ID physician, the patient is currently enrolled in the Modified OPAT program. Patient is unable to administer IV antimicrobial therapy at home. But is appropriated for the Modified OPAT program. Please direct questions to OPAT referral team, another member of the OPAT team, or the ID consulting provider via secure chat or staff messaging in [facility]. OPAT Modified program for IV antimicrobial [...] Willie Shrestha (insert ID provider) Fax #: [phone] Appointments: (Co-clinic 01/31/2025 Insert ID Provider; date and time) at: [facility]: [address] [place] [address] (Select Option 3 for IV Antibiotic / PICC line related issues) For questions regarding OPAT prior to discharge, reach out to the OPAT team via [facility] Secure Chat (Group: OPAT Referral Team). For all questions regarding OPAT after discharge should be directed to the OPAT Team at (Select Option 3 for IV Antibiotics/PICC Issues) between 8am-5pm. After 5 pm, or during weekends/ holidays, please call the paging press operator carbon products at to reach the on-call ID fellow. [...] Note Rosa Perdomo 74 y.o. female CSN: [id number] Admission: 01/15/2025 9:57 PM Primary Problem: Postoperative sepsis (CMS/HCC) Anticipated Discharge Date: 01/23 Has Discharge Plans Changed? No - home or agreeable to SNF (requesting [facility] if needed) Medicare Second Notice: NA at [...] orders and - eval pending. Patient requesting [facility] if needed. CM will continue to [...] Please call with any questions or concerns. [phone] Collins Thorne MD Resident Physician, PGY-1 Department of Neurosurgery [facility] Cosigned by Fransisco Farley MD at 01/17/2025 [...] PM EST Operative Note Date: 01/16/2025 Location: [facility] Name: Rosa Perdomo, : 1950, Diagnoses: Pre-op Diagnosis MRSA bacteremia Infection of spinal cord stimulator, initial encounter Wound infection Post-op Diagnosis MRSA bacteremia Infection of spinal cord stimulator, initial encounter Wound infection Procedure(s): Explantation of entire spinal cord stimulator system (leads and IPG) Irrigation and debridement of midline lumbar and right paraspinal wounds Attending Surgeon(s): * Fransisco Farley - Primary Outbound Supervisor(s): * Janene Terrell MD - Resident - [...] lady with SCS stimulator placed recently by [facility], presentingwith sepsis, MRSA bacteremia, found to have [...] showed MRSA and she was transferred to [facility] for further management. It appears that prior to the [facility] a PICC was placed while blood cultures were pending. Upon admission at [facility], no discharge was noted, but extensive cellulitis [...] Value Units Date/Time Blood Culture (Aerobic/Anaerobet Set) [[id number]] Collected: 01/16/25 0128 Order Status: Completed Specimen: Blood from Hand, Right Updated: 01/16/25 0501 Culture Culture in lab Antimicrobials: -- Vancomycin [id number] 01/16 - present -- Cefepime IV 2g [...] showed MRSA and she was transferred to [facility] for further management. Blood cultures collected at [facility] on 01/16 show [facility]D. VINCENT took her [...] using miconazole nitrate ointment BID. Wound Assessment Terramuggus;Denuded Rebecca-Wound Assessment Red;Rash Treatments Other (Comment) (ordered [...] Note Rosa Perdomo 74 y.o. female CSN: [id number] Admission: 01/15/2025 9:57 PM Primary Problem: Postoperative sepsis (CMS/HCC) Farm Equipment Mechanic reviewed chart and spoke with patient and spouse at bedside to complete this Initial Case Management Assessment. PCP: Chase Gunn MD Emergency Contact: Extended Emergency Contact Information Primary Emergency Contact: Westley Perdomo Relation: Spouse Equalizer Operator needed? No Secondary Emergency Contact: Oumou Ocasio Relation: Daughter Insurance: Primary Visit Coverage Payer Plan Sponsor Code Group Number Group Name MEDICARE MEDICARE A & B -- -- -- Primary Visit Coverage Subscriber Subscriber ID Subscriber Name Subscriber SSN Subscriber Address [id number] ROSA PERDOMO [id number] [place] [address] Secondary Visit Coverage Payer Plan Sponsor Code Group Number Group Name DORENEGIANA CATHERINEGIANA ZURITA -- [id number] -- Secondary Visit Coverage Subscriber Subscriber ID Subscriber Name Subscriber N Subscriber Address [id number] WESTLEY PERDOMO -- [address] [place] [address] Patient information: Primary Caregiver: Self Accompanied by/Relationship: spouse Support System: Immediate family Daily Living Activities: Functional Status: Independent Living Arrangements: Spouse/Significant other Type of Residence: Private residence, Multi Level (lives only on first floor, ramp entry) [address] [place] [address] Smoker in the Home?: Yes Current DME: [...] HD and HI Living Will/Advance Directive/Power of Lubrication Servicer /Guardian: Have you reviewed your Advance Directive [...] is recommended, would like to go to [facility]. CM will continue to follow for discharge needs. Amanda Meza RN * Consults - Nani Leija RD - 01/16/2025 9:06 AM ESTAssociated Order(s): IP CONSULT TO NUTRITION SERVICES Adult Nutrition Evaluation Note Rosa Perdomo 74 y.o. female CSN: [id number] Room/Bed 135/135A Nutrition evaluation type: assessment Reason for evaluation: provider consult Hospital course: 74 y/o F presented as a transfer from OSH for MRSA bacteremia. 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 To OR 01/16 for exploration vs removal [...] (98.6 ??F) Oxygen Therapy: None (Room air) [place] Coma Scale Score: 15 Isael Scale Score: [...] 37.81 Weight Evaluation: Obese-Class 2 (BMI 35-39.9) [place] Body Weight (kg): 52.2 Percent [place] Body Weight: 185 Adjusted Body Weight (kg): 63.4 Wt Readings from Last 10 Encounters: 01/15/25 96.8 kg (213 lb 6.5 oz) 07/30/22 89.8 kg (198 lb) Estimated Needs: Metabolic Cart Study Results: Current Nutrition Intake: Diet Order: NPO Diet Experience and Nutrition History: Diet Education Provided: Will monitor Pertinent home medications: Baptist needs: Nutrition Focused Physical Exam: Physical exam [...] Please call with any questions or concerns. [phone] Collins Thorne MD Resident Physician, PGY-1 Department of Neurosurgery [facility] Attending Attestation - Fransisco Yarbrough MD: I [...] Family History: Family History[3] Social History: Living: [place] [id number] with family Marital Status: Alcohol Use: denies [...] for: O2SAT , BD , BE , GWT4IPR , PCO2 , PH , PO2 , OQP2RSLT Venous Blood Gas: No results found for: BDVEN , BEVEN , OMN0HEY , FKQ9BCK , PO2VEN , S5AKBYYX , SBX9NEMYLHO Microbiology: Results Procedure Component Value Units Date/Time Blood Culture (Aerobic/Anaerobet Set) [[id number]] Order Status: Sent Specimen: Blood, Venous Imaging [...] L spine w/wo contrast pending -LR @ 100/yi-tg-pzasacad as appropriate -Continuous telemetry 2/ hospital transfer [...] Consult [place] [facility] [address] [place] [address] Fransisco Farley MD [address] [place] [address] Pending Results Name Type Priority [...] UNSOLICITED RESULTS Routine 01/16/2025 3:19 PM EST CO EXPLORE WOUND,ABDOMEN/FLANK/BA CK 01/16/2025 3:09 PM EST [...] testing. Comment 01/23/2025 8:20 AM EST [facility] [employer] ID Benji Gilbert 01/23/2025 8:20 AM EST [facility] Device ID [id number] 01/23/2025 8:20 AM EST [facility] Specimen Type POC Capillary 01/23/2025 8:20 AM EST [facility] Blood Capillary blood specimen / Unknown 01/23/2025 8:18 AM EST 01/23/2025 8:20 AM EST us Merlin Massey MD LAB POINT OF CARE TE ST DOCKED DEVICE UNSOLICITED RESULTS Final Result [facility] [address] [place] [address] * (ABNORMAL) POCT glucose meter (01/22/2025 8:20 [...] 01/22/2025 8:26 PM EST [facility] [employer] ID Felisa Sarmiento 025 8:26 PM EST [facility] Device ID [id number] 01/22/2025 8:26 PM EST [facility] Specimen Type POC Capillary 01/22/2025 8:26 PM EST [facility] Blood Capillary blood specimen / Unknown 01/22/2025 8:20 PM EST 01/22/2025 8:26 PM EST us Cleve Deleon MD LAB POINT OF CARE TE ST DOCKED DEVICE UNSOLICITED RESULTS Final Result Performing Organization Address City/State/[facility] Co de Phone Number [facility] [address] [place] [address] * (ABNORMAL) POCT glucose meter (01/22/2025 5:05 PM EST) POCT Glucose 188(H) 74 - 99 mg/dL 01/22/2025 5:06 PM EST [facility] Comment:Accuracy of a glucos e result [...] 01/22/2025 5:06 PM EST [facility] [employer] ID Jayy Travis 01/23/20 5:06 PM EST [facility] Device ID [id number] 01/22/2025 5:06 PM EST [facility] Specimen Type POC Capillary 01/22/2025 5:06 PM EST [facility] Blood Capillary blood specimen / Unknown 01/22/2025 5:05 PM EST 01/22/2025 5:06 PM EST us Cleve Deleon MD LAB POINT OF CARE TE ST DOCKED DEVICE UNSOLICITED RESULTS Final Result Performing Organization Address City/[facility]/ZIP Co de Phone Number [facility] [address] [place] [address] * (ABNORMAL) POCT glucose meter (01/22/2025 11:53 [...] for testing. Comment 01/22/2025 11:55 AM EST [facility] Press Operator [employer] ID Jayy Travis 01/23/20 11:55 AM EST [facility] Device ID [id number] 01/22/2025 11:55 AM EST [facility] Specimen Type POC Capillary 01/22/2025 11:55 AM EST [facility] Blood Capillary blood specimen / Unknown 01/22/2025 11:53 AM EST 01/22/2025 11:55 AM EST us Cleve Deleon MD LAB POINT OF CARE TE ST DOCKED DEVICE UNSOLICITED RESULTS Final Result Performing Organization Address City/[facility] Co de Phone Number [facility] [address] [place] [address] * (ABNORMAL) POCT glucose meter (01/22/2025 7:51 [...] testing. Comment 01/22/2025 7:52 AM EST [facility] Press Operator [employer] ID Jayy Travis 01/23/20 7:52 AM EST [facility] LAB Device ID [id number] 01/22/2025 7:52 AM EST [facility] Specimen Type POC Capillary 01/22/2025 7:52 AM EST [facility] Blood Capillary blood specimen / Unknown 01/22/2025 7:51 AM EST 01/22/2025 7:52 AM EST Cleve Deleon MD LAB POINT OF CARE TE ST DOCKED DEVICE UNSOLICITED RESULTS Final Result [facility] [address] [place] [address] * Vancomycin, Peak, Plasma Please draw ~2 hours after 0300 dose on 01/22 finishes infusing. Consider obtaining level via peripheral stick. If peripheral stick is not feasible, please ensure that line is flushed well prior to drawing level. Thanks! (01/22/2025 6:32 AM EST) Vancomycin, Peak, Plasma 29.1 20.0 - 40.0 ug/mL 01/22/2025 7:07 AM EST [facility] Blood Venous blood specimen / Unknown Venipuncture / Unknown 01/22/2025 6:32 AM EST 01/22/2025 6:37 AM EST Narrative [facility] - 01/22/2025 7:07 AM EST Therapeutic Peak level: 20-40ug/mL Supra-therapeutic Peak level: >40 ug/mL us Cleve Deleon MD LAB BLOOD ORDERABLES Final Re sult [facility] [address] [place] [address] * Vancomycin, Trough, Plasma Please draw ~30 minutes prior to dose due at 0300 on 01/22. ??Please do NOT hold dose awaiting level to return. Consider obtaining level via peripheral stick. If peripheralstick is not feasible, please ensure that line/p... (01/22/2025 3:04 AM EST) Vancomycin, Trough, Plasma 13.7 10.0 - 20.0 ug/mL 01/22/2025 3:45 AM EST [facility] Blood Venous blood specimen / Unknown Venipuncture / Unknown 01/22/2025 3:04 AM EST 01/22/2025 3:15 AM EST Narrative [facility] - 01/22/2025 3:45 AM EST Therapeutic Trough level: 10-20ug/mL Supra-therapeutic Trough level: >20 ug/mL us Cleve Deleon MD LAB BLOOD ORDERABLES Final Re sult Performing Organization Address City/[facility]/ZIP Co de Phone Number [facility] [address] [place] [address] * (ABNORMAL) POCT glucose meter (01/21/2025 9:42 PM EST) [facility] POCT Glucose 186(H) 74 - 99 mg/dL 01/21/2025 9:43 PM EST [facility] Comment:Accuracy of a [...] Comment 01/21/2025 9:43 PM EST [facility] [employer] ID Alice Garber 01/21/2025 9:43 PM EST [facility] LAB Device ID [id number] 01/21/2025 9:43 PM EST [facility] Specimen Type POC Capillary 01/21/2025 9:43 PM EST [facility] Blood Capillary blood specimen / Unknown 01/21/2025 9:42 PM EST 01/21/2025 9:43 PM EST us Cleve Deleon MD LAB POINT OF CARE TE ST DOCKED DEVICE UNSOLICITED RESULTS Final Result Performing Organization Address City/[facility]/ZIP Co de Phone Number [facility] [address] [place] [address] * (ABNORMAL) POCT glucose meter (01/21/2025 5:12 [...] Comment 01/21/2025 5:14 PM EST [facility] [employer] ID Sabine Garrett 01/21/2025 5:14 PM EST [facility] Device ID [id number] 01/21/2025 5:14 PM EST [facility] Specimen Type POC Capillary 01/21/2025 5:14 PM EST [facility] Blood Capillary blood specimen / Unknown 01/21/2025 5:12 PM EST 01/21/2025 5:14 PM EST Cleve Deelon MD LAB POINT OF CARE TE ST DOCKED DEVICE UNSOLICITED RESULTS Final Result [facility] [address] [place] [address] * (ABNORMAL) POCT glucose meter (01/21/2025 12:15 PM EST) [facility] POCT Glucose 186(H) 74 - 99 mg/dL 01/21/2025 12:20 PM EST [facility] Comment:Accuracy of a [...] 01/21/2025 12:20 PM EST [facility] [employer] ID Alysa Quinn 01/21/2025 12:20 PM EST [facility] Device ID [id number] 01/21/2025 12:20 PM EST [facility] Specimen Type POC Capillary 01/21/2025 12:20 PM EST [facility] Blood Capillary blood specimen / Unknown 01/21/2025 12:15 PM EST 01/21/2025 12:20 PM EST us Cleve Deleon MD LAB POINT OF CARE TE ST DOCKED DEVICE UNSOLICITED RESULTS Final Result Performing Organization Address City/[facility] de Phone Number [facility] [address] [place] [address] * (ABNORMAL) POCT glucose meter (01/21/2025 8:15 [...] Comment 01/21/2025 8:19 AM EST [facility] Press Operator [employer] ID Alysa Quinn 01/21/2025 8:19 AM EST [facility] Device ID [id number] 01/21/2025 8:19 AM EST [facility] Specimen Type POC Capillary 01/21/2025 8:19 AM EST [facility] Blood Capillary blood specimen / Unknown 01/21/2025 8:15 AM EST 01/21/2025 8:19 AM EST us Cleve Deleon MD LAB POINT OF CARE TE ST DOCKED DEVICE UNSOLICITED RESULTS Final Result Performing Organization Address City/[facility] Co de Phone Number [facility] [address] [place] [address] * (ABNORMAL) POCT glucose meter (01/20/2025 7:48 [...] 01/20/2025 7:49 PM EST [facility] [employer] ID Silva Coates 025 7:49 PM EST [facility] Device ID [id number] 01/20/2025 7:49 PM EST [facility] Specimen Type POC Capillary 01/20/2025 7:49 PM EST [facility] Blood Capillary blood specimen / Unknown 01/20/2025 7:48 PM EST 01/20/2025 7:49 PM EST Clvee Deleon MD LAB POINT OF CARE TE ST DOCKED DEVICE UNSOLICITED RESULTS Final Result Performing Organization Address City/State/[facility] Co de Phone Number [facility] [address] [place] [address] * XR Chest 1 View (01/20/2025 5:57 [...] Ha RN Authorized by: Cleve Deleon MD [place] Protocol: Verbal consent obtained?: Yes Written consent [...] preference. Patient position: Supine Catheter Lot #: [id number] Catheter endless steamer tender: Nuubo Catheter placed: Single lumen Catheter size: 4 [...] POCT glucose meter (01/20/2025 5:05 PM EST) Pathologist [facility] POCT Glucose 202(H) 74 - 99 mg/dL 01/20/2025 5:06 PM EST [facility] Comment:Accuracy of a glucos e result [...] for testing. Comment 01/20/2025 5:06 PM EST [facility] [employer] ID KatieJane og 01/20/2025 5:06 PM EST [facility] Device ID [id number] 01/20/2025 5:06 PM EST [facility] Specimen Type POC Capillary 01/20/2025 5:06 PM EST [facility] Blood Capillary blood specimen / Unknown 01/20/2025 5:05 PM EST 01/20/2025 5:06 PM EST us Cleve Deleon MD LAB POINT OF CARE TE ST DOCKED DEVICE UNSOLICITED RESULTS Final Result [facility] [address] [place] [address] * (ABNORMAL) POCT glucose meter (01/20/2025 11:57 [...] Comment 01/20/2025 11:59 AM EST [facility] [employer] ID Jane Wilson 01/20/2025 11:59 AM EST [facility] Device ID [id number] 01/20/2025 11:59 AM EST [facility] Specimen Type POC Capillary 01/20/2025 11:59 AM EST [facility] Blood Capillary blood specimen / Unknown 01/20/2025 11:57 AM EST 01/20/2025 11:59 AM EST Cleve Deleon MD LAB POINT OF CARE TE ST DOCKED DEVICE UNSOLICITED RESULTS Final Result Performing Organization Address [facility] Co de Phone Number [facility] [address] [place] [address] * SEND SARA MESSAGE (01/20/2025 11:02 AM EST) Urine Urine specimen obtained by clean catch procedure / Unknown Non-blood Collection / Unknown 01/20/2025 11:02 AM EST 01/20/2025 11:06 AM EST Cleve Deleon MD LAB URINE ORDERABLES Final Re sult Performing Organization Address City/[facility]/ZIP Co de Phone Number [facility] [address] [place] [address] * (ABNORMAL) Urine Culture (01/20/2025 11:02 AM EST) Pathologist [facility] Culture 10,000 - 100,000 CFU/mL Trista albicans(A) 01/22/2025 7:50 AM EST [facility] Comment:This isolate has bee n identified using the FDA Approved NEMOPTIC CA System Urine Urine specimen obtained by clean catch procedure / Unknown Non-blood Collection / Unknown 01/20/2025 11:02 AM EST 01/20/2025 11:06 AM EST us Cleve Deleon MD LAB MICROBIOLOGY - GENERAL OR DERABLES Final Result Performing Organization Address [facility]/ZIP Co de Phone Number [facility] [address] [place] [address] * Urinalysis Microscopic Examination (01/20/2025 11:02 AM EST) Urine Urine specimen obtained by clean catch procedure / Unknown Non-blood Collection / Unknown 01/20/2025 11:02 AM EST 01/20/2025 11:06 AM EST us Cleve Deleon MD LAB URINE ORDERABLES Final Re sult Performing Organization Address City/[facility]/ZIP Co de Phone Number [facility] [address] [place] [address] * Urine Avery Panel (01/20/2025 11:02 AM EST) Extra Sent for Culture 01/20/2025 1:02 PM EST [facility] Urine Urine specimen obtained by clean catch procedure / Unknown Non-blood Collection / Unknown 01/20/2025 11:02 AM EST 01/20/2025 11:06 AM EST us Cleve Deleon MD LAB URINE ORDERABLES Final Re sult Performing Organization Address [facility] Co de Phone Number [facility] [address] [place] [address] * (ABNORMAL) Urinalysis with reflex microscopic (Culture NOT Included) (01/20/2025 11:02 AM EST) Color, Urine Yellow LAB URINALYSIS - AUTOMATED METHOD 01/20/2025 11:24 AM EST [facility] Clarity, Urine Cloudy LAB URINALYSIS - AUTOMATED METHOD 01/20/2025 11:24 AM EST [facility] Spec [place], Urine 1.017 1.005 - 1.030 LAB URINALYSIS - AUTOMATED METHOD 01/20/2025 11:24 AM EST [facility] pH, Urine 6.5 5.0 - 8.0 LAB URINALYSIS - AUTOMATED METHOD 01/20/2025 11:24 AM [facility] Protein, Urine Trace(A) Negative mg/dL LAB URINALYSIS - AUTOMATED METHOD 01/20/2025 11:24 AM [facility] Glucose, Urine >=1000(A) Negative mg/dL LAB URINALYSIS - AUTOMATED METHOD 01/20/2025 11:24 AM [facility] Ketones, Urine Negative Negative mg/dL LAB URINALYSIS - AUTOMATED METHOD 01/20/2025 11:24 AM [facility] Blood, Urine Trace(A) Negative LAB URINALYSIS - AUTOMATED METHOD 01/20/2025 11:24 AM [facility] Bilirubin, Urine Negative Negative LAB URINALYSIS - AUTOMATED METHOD 01/20/2025 11:24 AM [facility] Urobilinogen, Urine 0.2 0.2 to 1.0 mg/dL LAB URINALYSIS - AUTOMATED METHOD 01/20/2025 11:24 AM [facility] Leukocytes, Urine Small(A) Negative LAB URINALYSIS - AUTOMATED METHOD 01/20/2025 11:24 AM [facility] Nitrite, Urine Negative Negative LAB URINALYSIS - AUTOMATED METHOD 01/20/2025 11:24 AM [facility] RBC, Urine 2 0 to 3 /HPF LAB URINALYSIS - AUTOMATED METHOD 01/20/2025 11:24 AM [facility] WBC, Urine >50(A) 0 to 5 /HPF LAB URINALYSIS - AUTOMATED METHOD 01/20/2025 11:24 AM [facility] Squamous Epithelial Cells 0 - 2 0 to 5 /HPF LAB URINALYSIS - AUTOMATED METHOD 01/20/2025 11:24 AM [facility] Hyaline Casts 3 - 5 0 to 5 /LPF LAB URINALYSIS - AUTOMATED METHOD 01/20/2025 11:24 AM [facility] Bacteria, Urine Negative Negative LAB URINALYSIS - AUTOMATED METHOD 01/20/2025 11:24 AM [facility] Yeast (Budding and/or Pseudohyphae) Present(A) Absent LAB URINALYSIS - AUTOMATED METHOD 01/20/2025 11:24 AM [facility] Urine Urine specimen obtained by clean catch procedure / Unknown Non-blood Collection / Unknown 01/20/2025 11:02 AM EST 01/20/2025 11:06 AM EST us Cleve Deleon MD LAB URINE ORDERABLES Final Re sult Performing Organization Address City/[facility]/ZIP Co de Phone Number [facility] [address] [place] [address] * (ABNORMAL) POCT glucose meter (01/20/2025 8:03 AM EST) POCT Glucose 139(H) 74 - 99 mg/dL 01/20/2025 8:05 AM EST [facility] Comment:Accuracy of a glucos e result [...] for testing. Comment 01/20/2025 8:05 AM EST [facility] [employer] ID KatieJane 01/20/2025 8:05 AM EST [facility] Device ID [id number] 01/20/2025 8:05 AM EST [facility] Specimen Type POC Capillary 01/20/2025 8:05 AM EST [facility] Blood Capillary blood specimen / Unknown 01/20/2025 8:03 AM EST 01/20/2025 8:05 AM EST us Cleve Deleon MD LAB POINT OF CARE TE ST DOCKED DEVICE UNSOLICITED RESULTS Final Result [facility] [address] [place] [address] * (ABNORMAL) Creatine Kinase (CK), Total (01/20/2025 5:02 AM EST) Pathologist [facility] Creatine Kinase, Plasma 290(H) 37 - 168 U/L 01/20/2025 5:37 AM EST [facility] Blood Venous blood specimen / Unknown Venipuncture / Unknown 01/20/2025 5:02 AM EST 01/20/2025 5:07 AM EST Cleve Deleon MD LAB BLOOD ORDERABLES Final Re sult [facility] [address] [place] [address] * (ABNORMAL) Basic metabolic panel (01/20/2025 5:02 AM EST) Glucose, Plasma 151(H) 74 - 99 mg/dL 01/20/2025 5:37 AM EST [facility] BUN, Plasma 12 8 - 23 mg/dL 01/20/2025 5:37 AM EST [facility] Creatinine, Plasma 0.79 0.60 - 1.10 mg/dL 01/20/2025 5:37 AM EST [facility] BUN/Creatinine Ratio 15 01/20/2025 5:37 AM EST [facility] Sodium, Plasma 139 136 - 145 mmol/L 01/20/2025 5:37 AM EST [facility] Potassium, Plasma 3.6 3.6 - 4.9 mmol/L 01/20/2025 5:37 AM EST [facility] Chloride, Plasma 102 97 - 107 mmol/L 01/20/2025 5:37 AM EST [facility] CO2, Plasma 28 22 - 29 mmol/L 01/20/2025 5:37 AM EST [facility] Anion Gap 9 6 - 16 mmol/L 01/20/2025 5:37 AM EST [facility] Total Calcium, Plasma 8.2(L) 8.9 - 10.2 mg/dL 01/20/2025 5:37 AM EST [facility] eGFRcr 78.6 mL/min/1.7 3m*2 01/20/2025 5:37 AM EST [facility] Comment:Reported eGFRcr in m L/min/1.73m2 is based the CKD-EPI 2020 equation that does not use a race coefficient. Blood Venous blood specimen / Unknown Venipuncture / Unknown 01/20/2025 5:02 AM EST 01/20/2025 5:07 AM EST us Virgilioeem K Ramay MD LAB BLOOD ORDERABLES Final Re sult [facility] [address] [place] [address] * (ABNORMAL) POCT glucose meter (01/19/2025 8:10 PM EST) POCT Glucose 213(H) 74 - 99 mg/dL 01/19/2025 8:12 PM EST [facility] Comment:Accuracy of a glucos e result [...] for testing. Comment 01/19/2025 8:12 PM EST [facility] [employer] ID Silva Coates [id number] 8:12 PM EST [facility] Device ID [id number] 01/19/2025 8:12 PM EST [facility] Specimen Type POC Capillary 01/19/2025 8:12 PM EST [facility] Blood Capillary blood specimen / Unknown 01/19/2025 8:10 PM EST 01/19/2025 8:12 PM EST us Cleve Deleon MD LAB POINT OF CARE TE ST DOCKED DEVICE UNSOLICITED RESULTS Final Result Performing Organization Address City/[facility]/ZIP Co de Phone Number [facility] [address] [place] [address] * (ABNORMAL) POCT glucose meter (01/19/2025 5:32 [...] Comment 01/19/2025 5:33 PM EST [facility] [employer] ID Aleyda Haley 01/19/2025 5:33 PM EST [facility] Device ID [id number] 01/19/2025 5:33 PM EST [facility] Specimen Type POC Capillary 01/19/2025 5:33 PM EST [facility] Blood Capillary blood specimen / Unknown 01/19/2025 5:32 PM EST 01/19/2025 5:33 PM EST us Cleve Deleon MD LAB POINT OF CARE TE ST DOCKED DEVICE UNSOLICITED RESULTS Final Result Performing Organization Address [facility] Co de Phone Number [facility] [address] [place] [address] * (ABNORMAL) POCT glucose meter (01/19/2025 12:21 PM EST) POCT Glucose 210(H) 74 - 99 mg/dL [...] Comment 01/19/2025 12:22 PM EST [facility] [employer] ID Aleyda Haley 01/19/2025 12:22 PM EST [facility] Device ID [id number] 01/19/2025 12:22 PM EST [facility] Specimen Type POC Capillary 01/19/2025 12:22 PM EST [facility] Blood Capillary blood specimen / Unknown 01/19/2025 12:21 PM EST 01/19/2025 12:22 PM EST us Cleve Deleon MD LAB POINT OF CARE TE ST DOCKED DEVICE UNSOLICITED RESULTS Final Result Performing Organization Address City/[facility] Co de Phone Number [facility] [address] [place] [address] * (ABNORMAL) POCT glucose meter (01/19/2025 8:18 [...] Comment 01/19/2025 8:20 AM EST [facility] [employer] ID Aleyda Haley 01/19/2025 8:20 AM EST [facility] Device ID [id number] 01/19/2025 8:20 AM EST [facility] Specimen Type POC Capillary 01/19/2025 8:20 AM EST [facility] Blood Capillary blood specimen / Unknown 01/19/2025 8:18 AM EST 01/19/2025 8:20 AM EST us Cleve Deleon MD LAB POINT OF CARE TE ST DOCKED DEVICE UNSOLICITED RESULTS Final Result Performing Organization Address City/[facility]/ZIP Co de Phone Number [facility] [address] [place] [address] * Phosphorus (01/19/2025 6:05 AM EST) [facility] Phosphorus, Plasma 3.0 2.5 - 4.5 mg/dL 01/19/2025 6:40 AM EST [facility] Blood Venous blood specimen / Unknown Venipuncture / Unknown 01/19/2025 6:05 AM EST 01/19/2025 6:15 AM EST us Cleve Deleon MD LAB BLOOD ORDERABLES Final Re sult [facility] [address] [place] [address] * Magnesium (01/19/2025 6:05 AM EST) [facility] Magnesium, Plasma 2.1 1.9 - 2.4 mg/dL 01/19/2025 6:40 AM EST [facility] Blood Venous blood specimen / Unknown Venipuncture / Unknown 01/19/2025 6:05 AM EST 01/19/2025 6:15 AM EST us Cleve Deleon MD LAB BLOOD ORDERABLES Final Re sult Performing Organization Address [facility] de Phone Number [facility] [address] [place] [address] * Vancomycin, Peak, Plasma Please draw ~2 hours after 0230 dose of vancomycin finishes infusing. Consider obtaining level via peripheral stick. If peripheral stick is not feasible, please ensure that line is flushed well prior to drawing level. Than... (01/19/2025 6:05 AM EST) Vancomycin, Peak, Plasma 39.7 20.0 - 40.0 ug/mL 01/19/2025 6:42 AM EST [facility] Blood Venous blood specimen / Unknown Venipuncture / Unknown 01/19/2025 6:05 AM EST 01/19/2025 6:15 AM EST Narrative [facility] - 01/19/2025 6:42 AM EST Therapeutic Peak level: 20-40ug/mL Supra-therapeutic Peak level: >40 ug/mL us Cleve Deleon MD LAB BLOOD ORDERABLES Final Re sult Performing Organization Address [facility] de Phone Number [facility] [address] [place] [address] * Vancomycin, Trough, Plasma Please draw ~30 minutes prior to dose due at 0230 on 01/19. Please do NOT hold dose awaiting level to return. Consider obtaining level via peripheral stick. If peripheral stick is not feasible, please ensure that line i... (01/19/2025 2:05 AM EST) Vancomycin, Trough, Plasma 16.4 10.0 - 20.0 ug/mL 01/19/2025 2:40 AM EST [facility] Blood Venous blood specimen / Unknown Venipuncture / Unknown 01/19/2025 2:05 AM EST 01/19/2025 2:12 AM EST Narrative [facility] - 01/19/2025 2:40 AM EST Therapeutic Trough level: 10-20ug/mL Supra-therapeutic Trough level: >20 ug/mL us Cleve Deleon MD LAB BLOOD ORDERABLES Final Re sult Performing Organization Address City/[facility]/ZIP Co de Phone Number [facility] [address] [place] [address] * (ABNORMAL) POCT glucose meter (01/18/2025 10:05 [...] Comment 01/18/2025 10:43 PM EST [facility] [employer] ID Felisa Sarmiento [id number] 10:43 PM EST [facility] Device ID [id number] 01/18/2025 10:43 PM EST [facility] Specimen Type POC Capillary 01/18/2025 10:43 PM EST [facility] Blood Capillary blood specimen / Unknown 01/18/2025 10:05 PM EST 01/18/2025 10:43 PM EST us Cleve Deleon MD LAB POINT OF CARE TE ST DOCKED DEVICE UNSOLICITED RESULTS Final Result [facility] [address] [place] [address] * (ABNORMAL) POCT glucose meter (01/18/2025 5:34 [...] Comment 01/18/2025 9:25 PM EST [facility] [employer] ID Renae Mcleod 01/19/20 9:25 PM EST [facility] Device ID [id number] 01/18/2025 9:25 PM EST [facility] Specimen Type POC Capillary 01/18/2025 9:25 PM EST [facility] Blood Capillary blood specimen / Unknown 01/18/2025 5:34 PM EST 01/18/2025 9:25 PM EST us Cleve Deleon MD LAB POINT OF CARE TE ST DOCKED DEVICE UNSOLICITED RESULTS Final Result Performing Organization Address [facility] Co de Phone Number [facility] [address] [place] [address] * Blood Culture (Aerobic/Anaerobet Set) (01/18/2025 1:23 PM EST) Culture No growth at day 5 SADA 01/23/2025 2:02 PM EST [facility] Blood Venous blood specimen / Unknown Venipuncture / Unknown 01/18/2025 1:23 PM EST 01/18/2025 1:34 PM EST us Cleve Deleon MD LAB MICROBIOLOGY - GENERAL OR DERABLES Final Result Performing Organization Address City/[facility] Co de Phone Number [facility] [address] [place] [address] * PERIPHERAL IV (SMARTFORM LINK) (01/18/2025 12:54 [...] - 99 mg/dL 01/18/2025 12:01 PM EST [facility] Comment:Accuracy of a glucos e result [...] for testing. Comment 01/18/2025 12:01 PM EST [facility] [employer] ID Renae Mcleod 01/19/20 12:01 PM EST [facility] Device ID [id number] 01/18/2025 12:01 PM EST [facility] Specimen Type POC Capillary 01/18/2025 12:01 PM EST [facility] Blood Capillary blood specimen / Unknown 01/18/2025 12:00 PM EST 01/18/2025 12:01 PM EST Cleve Deleon MD LAB POINT OF CARE TE ST DOCKED DEVICE UNSOLICITED RESULTS Final Result [facility] [address] [place] [address] * (ABNORMAL) POCT glucose meter (01/18/2025 8:25 [...] Comment 01/18/2025 8:27 AM EST [facility] [employer] ID Renae Mcleod 01/19/20 8:27 AM EST [facility] Device ID [id number] 01/18/2025 8:27 AM EST [facility] Specimen Type POC Capillary 01/18/2025 8:27 AM EST [facility] Blood Capillary blood specimen / Unknown 01/18/2025 8:25 AM EST 01/18/2025 8:27 AM EST Cleve Deleon MD LAB POINT OF CARE TE ST DOCKED DEVICE UNSOLICITED RESULTS Final Result [facility] [address] [place] [address] * (ABNORMAL) CBC and Differential (01/18/2025 4:56 AM EST) WBC Count 10.71(H) 3.70 - 10.30 10*3/uL LAB HEMATOLOGY METHOD 01/18/2025 5:22 AM EST [facility] RBC Count 2.79(L) 3.90 - 5.20 10*6/uL LAB HEMATOLOGY METHOD 01/18/2025 5:22 AM EST [facility] HGB 9.0(L) 11.2 - 15.7 g/dL LAB HEMATOLOGY METHOD 01/18/2025 5:22 AM EST [facility] HCT 27.4(L) 34.0 - 45.0 % LAB HEMATOLOGY METHOD 01/18/2025 5:22 AM EST [facility] Platelet Count 400(H) 155 - 369 10*3/uL LAB HEMATOLOGY METHOD 01/18/2025 5:22 AM EST [facility] MCV 98 79 - 98 fL LAB HEMATOLOGY METHOD 01/18/2025 5:22 AM EST [facility] MCH 32.3(H) 26.0 - 32.0 pg LAB HEMATOLOGY METHOD 01/18/2025 5:22 AM EST [facility] MCHC 32.8 30.7 - 35.5 g/dL LAB HEMATOLOGY METHOD 01/18/2025 5:22 AM [facility] RDW 14.3 11.5 - 14.5 % LAB HEMATOLOGY METHOD 01/18/2025 5:22 AM EST [facility] MPV 9.0 8.8 - 12.5 fL LAB HEMATOLOGY METHOD 01/18/2025 5:22 AM [facility] nRBC 0.0 <=0.0 per 100 WBCs LAB HEMATOLOGY METHOD 01/18/2025 5:22 AM EST [facility] Differential Type Automated LAB HEMATOLOGY METHOD 01/18/2025 5:22 AM [facility] Neutrophils % 79 % LAB HEMATOLOGY METHOD 01/18/2025 5:22 AM [facility] Lymphocytes % 9 % LAB HEMATOLOGY METHOD 01/18/2025 5:22 AM [facility] Monocytes % 9 % LAB HEMATOLOGY METHOD 01/18/2025 5:22 AM [facility] Eosinophils % 2 % LAB HEMATOLOGY METHOD 01/18/2025 5:22 AM [facility] Basophils % 0 % LAB HEMATOLOGY METHOD 01/18/2025 5:22 AM [facility] Immature Granulocytes % 1 % LAB HEMATOLOGY METHOD 01/18/2025 5:22 AM [facility] Neutrophils Absolute 8.43(H) 1.60 - 6.10 10*3/uL LAB HEMATOLOGY METHOD 01/18/2025 5:22 AM [facility] Lymphocytes Absolute 0.99(L) 1.20 - 3.90 10*3/uL LAB HEMATOLOGY METHOD 01/18/2025 5:22 AM [facility] Monocytes Absolute 0.97(H) 0.30 - 0.90 10*3/uL LAB HEMATOLOGY METHOD 01/18/2025 5:22 AM [facility] Eosinophils Absolute 0.21 0.00 - 0.50 10*3/uL LAB HEMATOLOGY METHOD 01/18/2025 5:22 AM [facility] Basophils Absolute 0.03 0.00 - 0.10 10*3/uL LAB HEMATOLOGY METHOD 01/18/2025 5:22 AM [facility] Immature Granulocytes Absolute 0.08(H) 0.00 - 0.06 10*3/uL LAB HEMATOLOGY METHOD 01/18/2025 5:22 AM [facility] Blood Blood sample taken from central line / Unknown Venipuncture / Unknown 01/18/2025 4:56 AM EST 01/18/2025 5:12 AM EST Narrative [facility] - 01/18/2025 5:22 AM EST Therapeutic decision making should be based on absolute values, rather than percentages. us Cleve Deleon MD LAB BLOOD ORDERABLES Final Re sult Performing Organization Address [facility] Co de Phone Number [facility] [address] [place] [address] * (ABNORMAL) Magnesium, Plasma (01/18/2025 4:56 AM EST) Magnesium, Plasma 1.7(L) 1.9 - 2.4 mg/dL 01/18/2025 5:42 AM EST [facility] Blood Blood sample taken from central line / Unknown Venipuncture / Unknown 01/18/2025 4:56 AM EST 01/18/2025 5:12 AM EST us Cleve Deleon MD LAB BLOOD ORDERABLES Final Re sult Performing Organization Address [facility] de Phone Number [facility] [address] [place] [address] * (ABNORMAL) Basic Metabolic Panel, Plasma (01/18/2025 4:56 AM EST) Glucose, Plasma 151(H) 74 - 99 mg/dL 01/18/2025 5:42 AM EST [facility] BUN, Plasma 16 8 - 23 mg/dL 01/18/2025 5:42 AM EST [facility] Creatinine, Plasma 0.90 0.60 - 1.10 mg/dL 01/18/2025 5:42 AM EST [facility] BUN/Creatinine Ratio 18 01/18/2025 5:42 AM EST [facility] Sodium, Plasma 142 136 - 145 mmol/L 01/18/2025 5:42 AM EST [facility] Potassium, Plasma 4.0 3.6 - 4.9 mmol/L 01/18/2025 5:42 AM EST [facility] Chloride, Plasma 104 97 - 107 mmol/L 01/18/2025 5:42 AM EST [facility] CO2, Plasma 25 22 - 29 mmol/L 01/18/2025 5:42 AM EST [facility] Anion Gap 13 6 - 16 mmol/L 01/18/2025 5:42 AM EST [facility] Total Calcium, Plasma 8.4(L) 8.9 - 10.2 mg/dL 01/18/2025 5:42 AM EST [facility] eGFRcr 67.2 mL/min/1.7 3m*2 01/18/2025 5:42 AM EST [facility] Comment:Reported eGFRcr in m L/min/1.73m2 is based the CKD-EPI 2020 equation that does not use a race coefficient. Blood Blood sample taken from central line / Unknown Venipuncture / Unknown 01/18/2025 4:56 AM EST 01/18/2025 5:12 AM EST us Cleve Deleon MD LAB BLOOD ORDERABLES Final Re sult Performing Organization Address City/[facility]/ZIP Co de Phone Number [facility] [address] [place] [address] * (ABNORMAL) Phosphorus, Plasma (01/18/2025 4:56 AM EST) Pathologist [facility] Phosphorus, Plasma 1.9(L) 2.5 - 4.5 mg/dL 01/18/2025 5:42 AM EST [facility] Blood Blood sample taken from central line / Unknown Venipuncture / Unknown 01/18/2025 4:56 AM EST 01/18/2025 5:12 AM EST us Cleve Deleon MD LAB BLOOD ORDERABLES Final Re sult [facility] [address] [place] [address] * Hepatitis C Antibody - ED W/Reflex to HCV Quant PCR (01/18/2025 4:56 AM EST) Hepatitis C Antibody Negative Negative 01/18/2025 5:53 AM EST [facility] Blood Blood sample taken from central line / Unknown Venipuncture / Unknown 01/18/2025 4:56 AM EST 01/18/2025 5:11 AM EST us Cleve Deleon MD LAB BLOOD ORDERABLES Final Re sult Performing Organization Address City/[facility]/ZIP Co de Phone Number [facility] [address] [place] [address] * (ABNORMAL) Hepatic Function Panel (01/18/2025 4:56 AM EST) Direct Bilirubin, Plasma <0.2 <=0.3 mg/dL 01/18/2025 5:42 AM EST [facility] Alkaline Phosphatase, Plasma 263(H) 46 - 142 U/L 01/18/2025 5:42 AM EST [facility] Total Bilirubin, Plasma 0.3 0.2 - 1.1 mg/dL 01/18/2025 5:42 AM EST [facility] Albumin, Plasma 3.0(L) 3.5 - 5.2 g/dL 01/18/2025 5:42 AM EST [facility] Total Protein 6.1(L) 6.3 - 7.9 g/dL 01/18/2025 5:42 AM EST [facility] ALT, Plasma 53(H) 10 - 35 U/L 01/18/2025 5:42 AM EST [facility] AST, Plasma 70(H) 10 - 35 U/L 01/18/2025 5:42 AM EST [facility] Blood Blood sample taken from central line / Unknown Venipuncture / Unknown 01/18/2025 4:56 AM EST 01/18/2025 5:12 AM EST us Cleve Deleon MD LAB BLOOD ORDERABLES Final Re sult Performing Organization Address City/[facility]/ZIP Co de Phone Number [facility] [address] [place] [address] * (ABNORMAL) POCT glucose meter (01/17/2025 9:24 [...] Comment 01/17/2025 9:27 PM EST [facility] [employer] ID Felisa Sarmiento [id number] 9:27 PM EST [facility] Device ID [id number] 01/17/2025 9:27 PM EST [facility] Specimen Type POC Capillary 01/17/2025 9:27 PM EST [facility] Blood Capillary blood specimen / Unknown 01/17/2025 9:24 PM EST 01/17/2025 9:27 PM EST us Cleve Deleon MD LAB POINT OF CARE TE ST DOCKED DEVICE UNSOLICITED RESULTS Final Result Performing Organization Address City/[facility]/ZIP Co de Phone Number [facility] [address] [place] [address] * Hepatitis B Surface Antigen (01/17/2025 7:50 PM EST) [facility] Hepatitis B Surf Antigen Negative Negative 01/17/2025 10:06 PM EST [facility] Blood Arterial blood specimen / Unknown (Central Line) Existing Catheter / Unknown 01/17/2025 7:50 PM EST 01/17/2025 7:54 PM EST us Cleve Deleon MD LAB BLOOD ORDERABLES Final Re sult [facility] [address] [place] [address] * Hepatitis B Surface Antibody, Quantitative (01/17/2025 7:50 PM EST) [facility] Hepatitis B Surface Antibody, Quantitative <8.00 NonReactiv e: <8, Grayzone: 8 - <12, Reactive: >= 12 mIU/mL 01/17/2025 10:06 PM EST [facility] Comment: Nonreactive. Individual is considered not immune to HBV infection. Blood Arterial blood specimen / Unknown (Central Line) Existing Catheter / Unknown 01/17/2025 7:50 PM EST 01/17/2025 7:54 PM EST us Cleve Deleon MD LAB BLOOD ORDERABLES Final Re sult Performing Organization Address City/[facility]/ZIP Co de Phone Number [facility] [address] [place] [address] * Hepatitis B Core Total Antibody IgG,IgM (01/17/2025 7:50 PM EST) Pathologist [facility] Hepatitis B Core Total Antibody IgG,IgM Negative Negative 01/17/2025 10:06 PM EST [facility] Blood Arterial blood specimen / Unknown (Central Line) Existing Catheter / Unknown 01/17/2025 7:50 PM EST 01/17/2025 7:54 PM EST us Cleve Deleon MD LAB BLOOD ORDERABLES Final Re sult Performing Organization Address [facility] Co de Phone Number [facility] [address] [place] [address] * Hepatitis B Core Antibody IgM (01/17/2025 7:50 PM EST) Pathologist [facility] Hepatitis B Core Antibody IgM Negative Negative 01/17/2025 10:06 PM EST [facility] Blood Arterial blood specimen / Unknown (Central Line) Existing Catheter / Unknown 01/17/2025 7:50 PM EST 01/17/2025 7:54 PM EST us Cleve Deleon MD LAB BLOOD ORDERABLES Final Re sult Performing Organization Address City/[facility] Co de Phone Number [facility] [address] [place] [address] * (ABNORMAL) POCT glucose meter (01/17/2025 5:55 PM EST) Pathologist [facility] POCT Glucose 186(H) 74 - 99 mg/dL [...] 01/17/2025 5:57 PM EST [facility] [employer] ID Aleyda Halye 01/17/2025 5:57 PM EST [facility] Device ID [id number] 01/17/2025 5:57 PM EST [facility] Specimen Type POC Capillary 01/17/2025 5:57 PM EST [facility] Blood Capillary blood specimen / Unknown 01/17/2025 5:55 PM EST 01/17/2025 5:57 PM EST Cleve Deleon MD LAB POINT OF CARE TE ST DOCKED DEVICE UNSOLICITED RESULTS Final Result Performing Organization Address City/State/[facility] Co de Phone Number [facility] [address] [place] [address] * (ABNORMAL) POCT glucose meter (01/17/2025 12:33 PM EST) [facility] POCT Glucose 172(H) 74 - 99 mg/dL [...] 01/17/2025 12:34 PM EST [facility] [employer] ID Aleyda Haley 01/17/2025 12:34 PM EST [facility] Device ID [id number] 01/17/2025 12:34 PM EST [facility] Specimen Type POC Capillary 01/17/2025 12:34 PM EST [facility] Blood Capillary blood specimen / Unknown 01/17/2025 12:33 PM EST 01/17/2025 12:34 PM EST us Cleve Deleon MD LAB POINT OF CARE TE ST DOCKED DEVICE UNSOLICITED RESULTS Final Result [facility] [address] [place] [address] * ECHO, ADULT TRANSTHORACIC COMPLETE (01/17/2025 11:55 [...] is no recent study available for direct [id number] comparison. Left Ventricle The left ventricle is [...] is no recent study available for direct [id number] comparison. us Cleve Deleon MD CV ECHO PROCEDURES Final Resu lt * (ABNORMAL) POCT glucose meter (01/17/2025 5:23 AM EST) Pathologist [facility] POCT Glucose 166(H) 74 - 99 mg/dL 01/17/2025 5:25 AM EST [facility] Comment:Accuracy of a glucos e result [...] for testing. Comment 01/17/2025 5:25 AM EST [facility] [employer] ID Cydney Valiente 5:25 AM EST [facility] Device ID [id number] 01/17/2025 5:25 AM EST [facility] Specimen Type POC Capillary 01/17/2025 5:25 AM EST [facility] Blood Capillary blood specimen / Unknown 01/17/2025 5:23 AM EST 01/17/2025 5:25 AM EST us Cleve Deleon MD LAB POINT OF CARE TE ST DOCKED DEVICE UNSOLICITED RESULTS Final Result [facility] [address] [place] [id number] * (ABNORMAL) CBC and Differential (01/17/2025 2:31 AM EST) Pathologist [facility] WBC Count 8.74 3.70 - 10.30 10*3/uL LAB HEMATOLOGY METHOD 01/17/2025 3:05 AM EST [facility] RBC Count 2.82(L) 3.90 - 5.20 10*6/uL LAB HEMATOLOGY METHOD 01/17/2025 3:05 AM EST [facility] HGB 8.9(L) 11.2 - 15.7 g/dL LAB HEMATOLOGY METHOD 01/17/2025 3:05 AM [facility] HCT 27.9(L) 34.0 - 45.0 % LAB HEMATOLOGY METHOD 01/17/2025 3:05 AM EST [facility] Platelet Count 351 155 - 369 10*3/uL LAB HEMATOLOGY METHOD 01/17/2025 3:05 AM [facility] MCV 99(H) 79 - 98 fL LAB HEMATOLOGY METHOD 01/17/2025 3:05 AM [facility] MCH 31.6 26.0 - 32.0 pg LAB HEMATOLOGY METHOD 01/17/2025 3:05 AM [facility] MCHC 31.9 30.7 - 35.5 g/dL LAB HEMATOLOGY METHOD 01/17/2025 3:05 AM [facility] RDW 14.2 11.5 - 14.5 % LAB HEMATOLOGY METHOD 01/17/2025 3:05 AM [facility] MPV 9.1 8.8 - 12.5 fL LAB HEMATOLOGY METHOD 01/17/2025 3:05 AM [facility] nRBC 0.0 <=0.0 per 100 WBCs LAB HEMATOLOGY METHOD 01/17/2025 3:05 AM [facility] Differential Type Automated LAB HEMATOLOGY METHOD 01/17/2025 3:05 AM [facility] Neutrophils % 88 % LAB HEMATOLOGY METHOD 01/17/2025 3:05 AM [facility] Lymphocytes % 8 % LAB HEMATOLOGY METHOD 01/17/2025 3:05 AM [facility] Monocytes % 2 % LAB HEMATOLOGY METHOD 01/17/2025 3:05 AM [facility] Eosinophils % 0 % LAB HEMATOLOGY METHOD 01/17/2025 3:05 AM [facility] Basophils % 0 % LAB HEMATOLOGY METHOD 01/17/2025 3:05 AM [facility] Immature Granulocytes % 2 % LAB HEMATOLOGY METHOD 01/17/2025 3:05 AM EST [facility] Neutrophils Absolute 7.74(H) 1.60 - 6.10 10*3/uL LAB HEMATOLOGY METHOD 01/17/2025 3:05 AM EST [facility] Lymphocytes Absolute 0.68(L) 1.20 - 3.90 10*3/uL LAB HEMATOLOGY METHOD 01/17/2025 3:05 AM EST [facility] Monocytes Absolute 0.17(L) 0.30 - 0.90 10*3/uL LAB HEMATOLOGY METHOD 01/17/2025 3:05 AM EST [facility] Eosinophils Absolute 0.00 0.00 - 0.50 10*3/uL LAB HEMATOLOGY METHOD 01/17/2025 3:05 AM EST [facility] Basophils Absolute 0.02 0.00 - 0.10 10*3/uL LAB HEMATOLOGY METHOD 01/17/2025 3:05 AM EST [facility] Immature Granulocytes Absolute 0.13(H) 0.00 - 0.06 10*3/uL LAB HEMATOLOGY METHOD 01/17/2025 3:05 AM EST [facility] Blood Venous blood specimen / Unknown Venipuncture / Unknown 01/17/2025 2:31 AM EST 01/17/2025 2:40 AM EST Narrative [facility] - 01/17/2025 3:05 AM EST Therapeutic decision making should be based on absolute values, rather than percentages. us Cleve Deleon MD LAB BLOOD ORDERABLES Final Re sult Performing Organization Address City/[facility]/ZIP Co de Phone Number [facility] [address] [place] [address] * Magnesium, Plasma (01/17/2025 2:31 AM EST) Magnesium, Plasma 2.0 1.9 - 2.4 mg/dL 01/17/2025 3:08 AM EST [facility] Blood Venous blood specimen / Unknown Venipuncture / Unknown 01/17/2025 2:31 AM EST 01/17/2025 2:39 AM EST us Cleve Deleon MD LAB BLOOD ORDERABLES Final Re sult [facility] [address] [place] [address] * (ABNORMAL) Basic Metabolic Panel, Plasma (01/17/2025 2:31 AM EST) Glucose, Plasma 193(H) 74 - 99 mg/dL 01/17/2025 3:08 AM EST [facility] BUN, Plasma 17 8 - 23 mg/dL 01/17/2025 3:08 AM EST [facility] Creatinine, Plasma 0.87 0.60 - 1.10 mg/dL 01/17/2025 3:08 AM EST [facility] BUN/Creatinine Ratio 20 01/17/2025 3:08 AM EST [facility] Sodium, Plasma 140 136 - 145 mmol/L 01/17/2025 3:08 AM EST [facility] Potassium, Plasma 4.6 3.6 - 4.9 mmol/L 01/17/2025 3:08 AM EST [facility] Chloride, Plasma 104 97 - 107 mmol/L 01/17/2025 3:08 AM EST [facility] CO2, Plasma 24 22 - 29 mmol/L 01/17/2025 3:08 AM EST [facility] Anion Gap 12 6 - 16 mmol/L 01/17/2025 3:08 AM EST [facility] Total Calcium, Plasma 8.7(L) 8.9 - 10.2 mg/dL 01/17/2025 3:08 AM EST [facility] eGFRcr 70.0 mL/min/1.7 3m*2 01/17/2025 3:08 AM EST [facility] Comment:Reported eGFRcr in m L/min/1.73m2 is based the CKD-EPI 2020 equation that does not use a race coefficient. Blood Venous blood specimen / Unknown Venipuncture / Unknown 01/17/2025 2:31 AM EST 01/17/2025 2:39 AM EST us Cleve Deleon MD LAB BLOOD ORDERABLES Final Re sult [facility] [address] [place] [address] * Phosphorus, Plasma (01/17/2025 2:31 AM EST) [facility] Phosphorus, Plasma 4.3 2.5 - 4.5 mg/dL 01/17/2025 3:08 AM EST [facility] Blood Venous blood specimen / Unknown Venipuncture / Unknown 01/17/2025 2:31 AM EST 01/17/2025 2:39 AM EST us Cleve Deleon MD LAB BLOOD ORDERABLES Final Re sult Performing Organization Address City/[facility]/ZIP Co de Phone Number [facility] [address] [place] [address] * (ABNORMAL) POCT glucose meter (01/17/2025 12:39 AM EST) [facility] POCT Glucose 198(H) 74 - 99 mg/dL 01/17/2025 12:41 AM EST [facility] Comment:Accuracy of a [...] for testing. Comment 01/17/2025 12:41 AM EST [facility] [employer] ID Cydney Valiente 12:41 AM EST [facility] Device ID [id number] 01/17/2025 12:41 AM EST [facility] Specimen Type POC Capillary 01/17/2025 12:41 AM EST [facility] Blood Capillary blood specimen / Unknown 01/17/2025 12:39 AM EST 01/17/2025 12:41 AM EST us Cleve Deleon MD LAB POINT OF CARE TE ST DOCKED DEVICE UNSOLICITED RESULTS Final Result Performing Organization Address City/[facility]/ZIP Co de Phone Number [facility] [address] [place] [address] * CT Lumbar Spine w IV Contrast [...] Ar Wick MD on 01/17/2025 1:25 PM us Sarydaisy Snehal Gaston MD IMG CT PROCEDURES Fi [...] on 01/16/2025 8:04 PM us Naina Dubois METEOROLOGIST [employer] IMG US PROCEDURES Final Result * (ABNORMAL) POCT glucose meter (01/16/2025 6:35 PM EST) POCT Glucose 173(H) 74 - 99 mg/dL 01/16/2025 6:36 PM EST [facility] Comment:Accuracy of a glucos e result [...] for testing. Comment 01/16/2025 6:36 PM EST [facility] [employer] ID [email or web address] Ward 01/16/2025 6:36 PM EST [facility] Device ID [id number] 01/16/2025 6:36 PM EST [facility] Specimen Type POC Capillary 01/16/2025 6:36 PM EST [facility] Blood Capillary blood specimen / Unknown 01/16/2025 6:35 PM EST 01/16/2025 6:36 PM EST us Cleve Deleon MD LAB POINT OF CARE TE ST DOCKED DEVICE UNSOLICITED RESULTS Final Result [facility] [address] [place] [address] * (ABNORMAL) POCT glucose meter (01/16/2025 5:22 PM EST) POCT Glucose 178(H) 74 - 99 mg/dL 01/16/2025 5:23 PM EST [facility] Comment:Accuracy of a glucos e result [...] Comment 01/16/2025 5:23 PM EST [facility] [employer] ID Felisa Hernandez 5:23 PM EST [facility] Device ID [id number] 01/16/2025 5:23 PM EST [facility] Specimen Type POC Capillary 01/16/2025 5:23 PM EST [facility] Blood Capillary blood specimen / Unknown 01/16/2025 5:22 PM EST 01/16/2025 5:23 PM EST Cleve Deleon MD LAB POINT OF CARE TE ST DOCKED DEVICE UNSOLICITED RESULTS Final Result Performing Organization Address City/[facility]/ZIP Co de Phone Number [facility] [address] [place] [address] * [place] Less than 1 Hour Intraoperative (01/16/2025 5:02 PM EST) Narrative IMAGING - 01/16/2025 5:04 PM EST Images were obtained for surgical purposes. See Fransisco Farley's surgical note in the patient's chart for the findings. Fransisco Gaston MD IMG FLUOROSCOPY PROC EDURES Final Result Performing Organization Address City/[facility]/ZIP Co de Phone Number IMAGING * (ABNORMAL) Routine Culture and Gram Stain (01/16/2025 4:14 PM EST) Culture Heavy Growth 01/19/2025 5:17 PM EST [facility] Culture 4+ Biotype 1 Methicillin-Resis tant Staphylococcus aureus(AA) 01/19/2025 5:17 PM EST [facility] Comment: For susceptibility results refer to: - [id number] Edited result: Previously reported as Staphylococcus aureus on 01/17/2025 at 1327 EST. Staphylococcus aureus has been updated to reportable. Culture 2+ Biotype 2 Methicillin-Resis tant Staphylococcus aureus(AA) 01/19/2025 5:17 PM EST [facility] Comment: For susceptibility results refer to: - [facility]-[id number] Edited result: Previously reported as Staphylococcus aureus on 01/17/2025 at 1327 EST. Staphylococcus aureus has been updated to reportable. Foreign Body Lower back structure / Unknown 01/16/2025 4:14 PM EST 01/16/2025 5:10 PM EST Comment:Pre-op diagnosis: MRSA bacteremia [R78.81, B95.62] Fransisco Gaston MD LAB MICROBIOLOGY - G ENERAL ORDERABLES Final Result Performing Organization Address City/[facility]/ZIP Co de Phone Number [facility] [address] [place] [address] * Anaerobic Culture (01/16/2025 4:14 PM EST) Culture No anaerobes isolated 01/20/2025 2:57 PM EST [facility] Foreign Body Lower back structure / Unknown 01/16/2025 4:14 PM EST 01/16/2025 5:10 PM EST Comment:Pre-op diagnosis: MRSA bacteremia [R78.81, B95.62] Fransisco Gaston MD LAB MICROBIOLOGY - G ENERAL ORDERABLES Final Result Performing Organization Address City/[facility]/ZIP Co de Phone Number [facility] [address] [place] [address] * Fungal Culture, Routine (01/16/2025 4:05 PM EST) Culture No Fungal Growth at 1 Week 01/24/2025 6:48 AM EST [facility] Abscess Topography unknown / Unknown 01/16/2025 4:05 PM EST 01/16/2025 5:10 PM EST Cleve Deleon MD LAB MICROBIOLOGY - GENERAL OR DERABLES Final Result Performing Organization Address City/[facility]/ZIP Co de Phone Number [facility] [address] [place] [phone] * (ABNORMAL) Abscess Culture and Gram Stain (01/16/2025 4:05 PM EST) Culture Light Growth 01/19/2025 5:17 PM EST [facility] Culture 1+ Biotype 1 Methicillin-Resista nt Staphylococcus aureus(AA) 01/19/2025 5:17 PM EST [facility] Comment: The organism value for this result has been updated. These results have been appended to the previously preliminary verified report. Edited result: Previously reported as Staphylococcus aureus on 01/18/2025 at 1547 EST. Staphylococcus aureus has been updated to reportable. Culture 1+ Biotype 2 Methicillin-Resista nt Staphylococcus aureus(AA) 01/19/2025 5:17 PM EST [facility] Comment: The organism value for this result has been updated. These results have been appended to the previously preliminary verified report. Edited result: Previously reported as Staphylococcus aureus on 01/18/2025 at 1547 EST. Staphylococcus aureus has been updated to reportable. Gram Stain Result Rare Gram positive cocci in pairs and chains(A) 01/19/2025 5:17 PM EST [facility] Gram Stain Result Numerous Polymorphonuclear leukocytes(A) 01/19/2025 5:17 PM EST [facility] Abscess Lower back structure [...] MICROBIOLOGY - G ENERAL ORDERABLES Final Result [facility] [address] [place] [address] * Anaerobic Culture (01/16/2025 4:05 PM EST) Pathologist [facility] Culture No anaerobes isolated 01/20/2025 2:57 PM EST [facility] Abscess Lower back structure / Unknown 01/16/2025 4:05 PM EST 01/16/2025 5:10 PM EST Comment:Pre-op diagnosis: MRSA bacteremia [R78.81, B95.62] Fransisco Gaston MD LAB MICROBIOLOGY - G ENERAL ORDERABLES Final Result Performing Organization Address City/[facility]/ZIP Co de Phone Number [facility] [address] [place] [address] * (ABNORMAL) POCT glucose meter (01/16/2025 3:19 PM EST) POCT Glucose 123(H) 74 - 99 mg/dL 01/16/2025 3:20 PM EST [facility] Comment:Accuracy of a glucos e result [...] Comment 01/16/2025 3:20 PM EST [facility] [employer] ID Mindy Alarcon 01/16/2025 3:20 PM EST [facility] Device ID [id number] 01/16/2025 3:20 PM EST [facility] Specimen Type POC Capillary 01/16/2025 3:20 PM EST [facility] Blood Capillary blood specimen / Unknown 01/16/2025 3:19 PM EST 01/16/2025 3:20 PM EST Cleev Deleon MD LAB POINT OF CARE TE ST DOCKED DEVICE UNSOLICITED RESULTS Final Result Performing Organization Address City/State/[facility] Co de Phone Number [facility] [address] [place] [address] * (ABNORMAL) POCT glucose meter (01/16/2025 11:52 AM EST) [facility] POCT Glucose 119(H) 74 - 99 mg/dL 01/16/2025 11:53 AM EST [facility] Comment:Accuracy of a glucos e result [...] Comment 01/16/2025 11:53 AM EST [facility] [employer] ID Amandeep Ward 01/16/2025 11:53 AM EST [facility] Device ID [id number] 01/16/2025 11:53 AM EST [facility] Specimen Type POC Capillary 01/16/2025 11:53 AM EST [facility] Blood Capillary blood specimen / Unknown 01/16/2025 11:52 AM EST 01/16/2025 11:53 AM EST us Cleve Deleon MD LAB POINT OF CARE TE ST DOCKED DEVICE UNSOLICITED RESULTS Final Result Performing Organization Address City/[facility] Co de Phone Number [facility] [address] [place] [address] * (ABNORMAL) POCT glucose meter (01/16/2025 6:34 AM EST) POCT Glucose 142(H) 74 - 99 mg/dL 01/16/2025 6:35 AM EST [facility] Comment:Accuracy of a glucos e result [...] for testing. Comment 01/16/2025 6:35 AM EST [facility] [employer] ID [email or web address] 01/16/2025 6:35 AM EST [facility] Device ID [id number] 01/16/2025 6:35 AM EST [facility] Specimen Type POC Capillary 01/16/2025 6:35 AM EST [facility] Blood Capillary blood specimen / Unknown 01/16/2025 6:34 AM EST 01/16/2025 6:35 AM EST us Demar Jiménez MD LAB POINT OF CARE TE ST DOCKED DEVICE UNSOLICITED RESULTS Final Result Performing Organization Address City/[facility] de Phone Number [facility] [address] [place] [address] * (ABNORMAL) Urinalysis with reflex microscopic (Culture NOT Included) (01/16/2025 4:51 AM EST) Color, Urine Yellow LAB URINALYSIS - AUTOMATED METHOD 01/16/2025 5:13 AM EST [facility] Clarity, Urine Clear LAB URINALYSIS - AUTOMATED METHOD 01/16/2025 5:13 AM EST [facility] Spec [place], Urine 1.012 1.005 - 1.030 LAB URINALYSIS - AUTOMATED METHOD 01/16/2025 5:13 AM EST [facility] pH, Urine 6.0 5.0 - 8.0 LAB URINALYSIS - AUTOMATED METHOD 01/16/2025 5:13 AM EST [facility] Protein, Urine Negative Negative mg/dL LAB URINALYSIS - AUTOMATED METHOD 01/16/2025 5:13 AM EST [facility] Glucose, Urine >=1000(A) Negative mg/dL LAB URINALYSIS - AUTOMATED METHOD 01/16/2025 5:13 AM EST [facility] Ketones, Urine Negative Negative mg/dL LAB URINALYSIS - AUTOMATED METHOD 01/16/2025 5:13 AM EST [facility] Blood, Urine Negative Negative LAB URINALYSIS - AUTOMATED METHOD 01/16/2025 5:13 AM EST [facility] Bilirubin, Urine Negative Negative LAB URINALYSIS - AUTOMATED METHOD 01/16/2025 5:13 AM EST [facility] Urobilinogen, Urine 0.2 0.2 to 1.0 mg/dL LAB URINALYSIS - AUTOMATED METHOD 01/16/2025 5:13 AM EST [facility] Leukocytes, Urine Negative Negative LAB URINALYSIS - AUTOMATED METHOD 01/16/2025 5:13 AM EST [facility] Nitrite, Urine Negative Negative LAB URINALYSIS - AUTOMATED METHOD 01/16/2025 5:13 AM EST [facility] Urine Urine specimen obtained by clean catch procedure / Unknown Non-blood Collection / Unknown 01/16/2025 4:51 AM EST 01/16/2025 5:02 AM EST Result [facility] Fransisco Gaston MD LAB URINE ORDERABLES Final Result [facility] [address] [place] [address] * (ABNORMAL) POCT glucose meter (01/16/2025 1:34 AM EST) Pathologist [facility] POCT Glucose 144(H) 74 - 99 mg/dL 01/16/2025 1:37 AM EST [facility] Comment:Accuracy of a glucos e result [...] Comment 01/16/2025 1:37 AM EST [facility] [employer] ID Ailce Garber 01/16/2025 1:37 AM EST [facility] Device ID [id number] 01/16/2025 1:37 AM EST [facility] Specimen Type POC Capillary 01/16/2025 1:37 AM EST [facility] Blood Capillary blood specimen / Unknown 01/16/2025 1:34 AM EST 01/16/2025 1:37 AM EST us Demar Jiménez MD LAB POINT OF CARE TE ST DOCKED DEVICE UNSOLICITED RESULTS Final Result [facility] [address] [place] [address] * Blood Culture (Aerobic/Anaerobet Set) (01/16/2025 1:28 AM EST) Culture No growth at day 5 SADA 01/21/2025 4:02 AM EST [facility] Blood Structure of right hand / Unknown Venipuncture / Unknown 01/16/2025 1:28 AM EST 01/16/2025 3:52 AM EST us Fransisco Gaston MD LAB MICROBIOLOGY - G ENERAL ORDERABLES Final Result [facility] [address] [place] [address] * (ABNORMAL) Hemoglobin A1c (01/16/2025 12:36 AM EST) Hemoglobin A1c 7.8(H) <5.7 % 01/16/2025 10:21 AM EST [facility] Blood Venous blood specimen / Unknown Venipuncture / Unknown 01/16/2025 12:36 AM EST 01/16/2025 12:41 AM EST Narrative [facility] - 01/16/2025 10:21 AM EST HA1C Interpretive Data: Diagnosis of Diabetes: Diabetic > or = 6.5% Pre-diabetic 5.7 to 6.4% Non-diabetic < or = 5.6% Glycemic Targets for Type I and Type II Diabetics: Non- Adults <7.0% Adults <6.0% Children and Adolescents <7.5% Source: [employer]. Standards of medical care in diabetes,2017. Diabetes Care.2017:40 (suppl 1):S1-S135. Nania Dubois METEOROLOGIST [employer] LAB BLOOD ORDERABLES Fi nal Result Performing Organization Address City/[facility]/ZIP Co de Phone Number [facility] [address] [place] [address] * Phosphorus (01/16/2025 12:36 AM EST) Phosphorus, Plasma 2.7 2.5 - 4.5 mg/dL 01/16/2025 2:12 AM EST [facility] Blood Venous blood specimen / Unknown Venipuncture / Unknown 01/16/2025 12:36 AM EST 01/16/2025 12:41 AM EST Naina Dubois METEOROLOGIST [employer] LAB BLOOD ORDERABLES Fi nal Result Performing Organization Address [facility] Co de Phone Number [facility] [address] [place] [address] * (ABNORMAL) Magnesium (01/16/2025 12:36 AM EST) Magnesium, Plasma 1.7(L) 1.9 - 2.4 mg/dL 01/16/2025 2:12 AM EST [facility] Blood Venous blood specimen / Unknown Venipuncture / Unknown 01/16/2025 12:36 AM EST 01/16/2025 12:41 AM EST Naina Dubois METEOROLOGIST [employer] LAB BLOOD ORDERABLES Fi nal Result Performing Organization Address City/[facility] Co de Phone Number [facility] [address] [place] [address] * (ABNORMAL) Procalcitonin (01/16/2025 12:36 AM EST) Procalcitonin, Plasma 0.09(H) <0.09 ng/mL 01/16/2025 2:12 AM EST [facility] Blood Venous blood specimen / Unknown Venipuncture / Unknown 01/16/2025 12:36 AM EST 01/16/2025 12:41 AM EST Narrative [facility] - 01/16/2025 2:12 AM [...] predict 28 day mortality risk. Please consult [email or web address]-cka-icvjjaaais.[employer] for more information. Test performed at [facility]. us Naina Dubois APRN LAB BLOOD ORDERABLES Fi nal Result [facility] [address] [place] [address] * (ABNORMAL) C-reactive protein (01/16/2025 12:36 AM EST) CRP, Plasma 108.5(H) <=8.0 mg/L 01/16/2025 1:14 AM EST [facility] Blood Venous blood specimen / Unknown Venipuncture / Unknown 01/16/2025 12:36 AM EST 01/16/2025 12:41 AM EST Narrative [facility] - 01/16/2025 1:14 AM EST This CRP test is appropriate for assessment of infection, systemic inflammation and/or tissue injury. To assess cardiovascular disease risk order high sensitivity CRP (CRPH). us Fransisco Gaston MD LAB BLOOD ORDERABLES Final Result [facility] [address] [place] [address] * (ABNORMAL) Sedimentation Rate, Automated (01/16/2025 12:36 AM EST) Sedimentation Rate 96(H) <30 mm/hr 2024 12:58 AM EST [facility] Blood Venous blood specimen / Unknown Venipuncture / Unknown 01/16/2025 12:36 AM EST 01/16/2025 12:41 AM EST Fransisco Gaston MD LAB BLOOD ORDERABLES Final Result Performing Organization Address City/[facility]/ZIP Co de Phone Number [facility] [address] [place] [address] * (ABNORMAL) CBC and Differential (01/16/2025 12:36 AM EST) WBC Count 9.75 3.70 - 10.30 10*3/uL LAB HEMATOLOGY METHOD 01/16/2025 12:50 AM EST [facility] RBC Count 2.94(L) 3.90 - 5.20 10*6/uL LAB HEMATOLOGY METHOD 01/16/2025 12:50 AM EST [facility] HGB 9.4(L) 11.2 - 15.7 g/dL LAB HEMATOLOGY METHOD 01/16/2025 12:50 AM EST [facility] HCT 28.1(L) 34.0 - 45.0 % LAB HEMATOLOGY METHOD 01/16/2025 12:50 AM EST [facility] Platelet Count 338 155 - 369 10*3/uL LAB HEMATOLOGY METHOD 01/16/2025 12:50 AM EST [facility] MCV 96 79 - 98 fL LAB HEMATOLOGY METHOD 01/16/2025 12:50 AM EST [facility] MCH 32.0 26.0 - 32.0 pg LAB HEMATOLOGY METHOD 01/16/2025 12:50 AM EST [facility] MCHC 33.5 30.7 - 35.5 g/dL LAB HEMATOLOGY METHOD 01/16/2025 12:50 AM EST [facility] RDW 14.2 11.5 - 14.5 % LAB HEMATOLOGY METHOD 01/16/2025 12:50 AM [facility] MPV 9.2 8.8 - 12.5 fL LAB HEMATOLOGY METHOD 01/16/2025 12:50 AM [facility] nRBC 0.0 <=0.0 per 100 WBCs LAB HEMATOLOGY METHOD 01/16/2025 12:50 AM [facility] Differential Type Automated LAB HEMATOLOGY METHOD 01/16/2025 12:50 AM [facility] Neutrophils % 75 % LAB HEMATOLOGY METHOD 01/16/2025 12:50 AM [facility] Lymphocytes % 11 % LAB HEMATOLOGY METHOD 01/16/2025 12:50 AM [facility] Monocytes % 10 % LAB HEMATOLOGY METHOD 01/16/2025 12:50 AM [facility] Eosinophils % 2 % LAB HEMATOLOGY METHOD 01/16/2025 12:50 AM [facility] Basophils % 0 % LAB HEMATOLOGY METHOD 01/16/2025 12:50 AM [facility] Immature Granulocytes % 2 % LAB HEMATOLOGY METHOD 01/16/2025 12:50 AM [facility] Neutrophils Absolute 7.38(H) 1.60 - 6.10 10*3/uL LAB HEMATOLOGY METHOD 01/16/2025 12:50 AM [facility] Lymphocytes Absolute 1.03(L) 1.20 - 3.90 10*3/uL LAB HEMATOLOGY METHOD 01/16/2025 12:50 AM [facility] Monocytes Absolute 0.94(H) 0.30 - 0.90 10*3/uL LAB HEMATOLOGY METHOD 01/16/2025 12:50 AM [facility] Eosinophils Absolute 0.22 0.00 - 0.50 10*3/uL LAB HEMATOLOGY METHOD 01/16/2025 12:50 AM [facility] Basophils Absolute 0.03 0.00 - 0.10 10*3/uL LAB HEMATOLOGY METHOD 01/16/2025 12:50 AM [facility] Immature Granulocytes Absolute 0.15(H) 0.00 - 0.06 10*3/uL LAB HEMATOLOGY METHOD 01/16/2025 12:50 AM [facility] Blood Venous blood specimen / Unknown Venipuncture / Unknown 01/16/2025 12:36 AM EST 01/16/2025 12:41 AM EST Narrative [facility] - 01/16/2025 12:50 AM EST Therapeutic decision making should be based on absolute values, rather than percentages. Fransisco Gaston MD LAB BLOOD ORDERABLES Final Result [facility] [address] [place] [address] * (ABNORMAL) Comprehensive Metabolic Panel, Plasma (01/16/2025 12:36 AM EST) Glucose, Plasma 141(H) 74 - 99 mg/dL 01/16/2025 1:14 AM EST [facility] BUN, Plasma 17 8 - 23 mg/dL 01/16/2025 1:14 AM EST [facility] Creatinine, Plasma 0.97 0.60 - 1.10 mg/dL 01/16/2025 1:14 AM EST [facility] BUN/Creatinine Ratio 18 01/16/2025 1:14 AM EST [facility] Sodium, Plasma 137 136 - 145 mmol/L 01/16/2025 1:14 AM EST [facility] Potassium, Plasma 4.1 3.6 - 4.9 mmol/L 01/16/2025 1:14 AM EST [facility] Chloride, Plasma 103 97 - 107 mmol/L 01/16/2025 1:14 AM EST [facility] CO2, Plasma 22 22 - 29 mmol/L 01/16/2025 1:14 AM EST [facility] Anion Gap 12 6 - 16 mmol/L 01/16/2025 1:14 AM EST [facility] Total Calcium, Plasma 9.0 8.9 - 10.2 mg/dL 01/16/2025 1:14 AM EST [facility] Total Protein 6.1(L) 6.3 - 7.9 g/dL 01/16/2025 1:14 AM EST [facility] Albumin, Plasma 2.9(L) 3.5 - 5.2 g/dL 01/16/2025 1:14 AM EST [facility] AST, Plasma 77(H) 10 - 35 U/L 01/16/2025 1:14 AM EST [facility] ALT, Plasma 54(H) 10 - 35 U/L 01/16/2025 1:14 AM EST [facility] Alkaline Phosphatase, Plasma 271(H) 46 - 142 U/L 01/16/2025 1:14 AM EST [facility] Total Bilirubin, Plasma 0.4 0.2 - 1.1 mg/dL 01/16/2025 1:14 AM EST [facility] eGFRcr 61.4 mL/min/1.7 3m*2 01/16/2025 1:14 AM EST [facility] Comment:Reported eGFRcr in m L/min/1.73m2 is based the CKD-EPI 2020 equation that does not use a race coefficient. Blood Venous blood specimen / Unknown Venipuncture / Unknown 01/16/2025 12:36 AM EST 01/16/2025 12:41 AM EST Fransisco Gaston MD LAB BLOOD ORDERABLES Final Result [facility] [address] [place] [address] * (ABNORMAL) APTT (01/16/2025 12:36 AM EST) aPTT 36(H) 25 - 35 sec LAB COAGULATION METHOD 01/16/2025 1:15 AM EST [facility] Blood Venous blood specimen / Unknown Venipuncture / Unknown 01/16/2025 12:36 AM EST 01/16/2025 12:41 AM EST Fransisco Gaston MD LAB BLOOD ORDERABLES Final Result [facility] [address] [place] [address] * (ABNORMAL) Prothrombin Time/INR (01/16/2025 12:36 AM EST) Prothrombin Time 15.3(H) 12.0 - 14.3 sec LAB COAGULATION METHOD 01/16/2025 1:15 AM EST [facility] INR 1.2(H) 0.9 - 1.1 LAB COAGULATION METHOD 01/16/2025 1:15 AM EST [facility] Blood Venous blood specimen / Unknown Venipuncture / Unknown 01/16/2025 12:36 AM EST 01/16/2025 12:41 AM EST Narrative [facility] - 01/16/2025 1:15 AM [...] BLOOD ORDERABLES Final Result Performing Organization Address City/[facility]/ZIP Co de Phone Number [facility] [address] [place] [address] * Type and Screen (01/16/2025 12:36 AM [...] TEST ORDERABLES Final Result BLOOD BANK [address] documented in this encounter Visit Diagnoses [...] in this encounter Admitting Diagnoses Diagnosis Sepsis ([facility]) documented in this encounter Administered [...] 8:53 AM EST 30 mg nystatin (Mycostatin) 075371 UNIT/GM powder 1 Application Topical, 2 times [...] RAI) 0822 (Given - Provider: Ariadne Adame, RN) [...] 0821 (Given - Provider: Ariadne Adame, RN) insulin lispro (Admelog) 100 units/mL injection [...] RN)2117 (Given - Provider: Christina Fritz RN) 08 [...] - Provider: Ariadne Adame, RAI) nystatin (Mycostatin) [id number] UNIT/GM powder 1 Application Topical, 2 times [...] Discontinued, Routine 1232 (Given - Provider: David Wheeelr RN)2117 (Given - Provider: Christina Fritz RN) [...] PRN, Starting on Wed01/16/25 at 1344, Until 01/23/25 at 1513, anxiety, [...] Routine, sleep 2116 (Given - Provider: Christina Fritz, RAI) 2142 (Given - Provider: Christina Fritz RN) [...] or greater 2117 (Given - Provider: Christina Fritz, RAI) 0841 (Given - Provider: Felisa Whitlock RN)2143 [...] documented as of this encounter Care Teams Hand Shaper Relationship Specialty Start Date End Date Chase Gunn MD [address] [place] [address] PCP - General 06/21/20 documented as of this encounter
--- OUTSIDE RECORDS SUMMARY | 2025-01-16 15:24 | XMS_ITS | Encounter Summary ---
Author Organization Healthcare Address [address] [place] [address] Care Team Providers Care Csr Name Role Phone Chase Gunn MD Primary Care Provider + [phone] Reason for Visit * Auth/Cert (Routine) Specialty Diagnoses / Procedures Referred By Rick roman Referred To Contact Diagnoses Sepsis (CMS/HCC) infected spinal cord stimulator, MRSA Demar Jiménez MD [address] [place] [address] Phone: tel: fax: [facility] A Inpatient [address] [place] [address] Referral ID Status Reason Start Date Expiration Date Visits Re quested Visits Authorized [id number] 1 1 Encounter Details Date Type Department Care Team (Late st Contact Info) Description 01/16/2025 3:24 PM EST Anesthesia Event [facility] A OPERATING ROOM [address] [place] [address] Diane Wong MD [address] [place] [address] Cony Braun APRN, EDVIN [address] [place] [address] Anesthesia Record Procedure Summary Procedure Name Responsible Anesthesiologist Anesthesia Start Time Anesthesia Stop Time EXPLORATION, WOUND, POSSIBLE SCS REMOVAL/REVISION, ALL OTHER INDICATED PROCEDURES (Back) Diane Wong MD 01/16/25 1524 01/16/25 1718 Events Date Time Event Comment 01/16/2025 1417 1524 In Room 1524 An Start The patient was reevaluated immediately before sedation and remains eligible for anesthesia plan. 1524 An Start Data 1529 An Induction The patient was reevaluated immediately before moderate or deep sedation use and before anesthesia induction. 1532 An Intubation 1535 Anesthesia Ready 1604 Proc Start 1706 Proc Fin 1712 An Extubation 1715 an stop data 1716 Out of Room 1718 Handoff to Receiving I compl eted my handoff to the receiving clinician during which we: 1. Identified the patient 2. Identified the responsible provider 3. Reviewed the pertinent medical history 4. Discussed the surgical course 5. Reviewed intra-op anesthesia management and issues during anesthesia 6. Set expectations for post-procedure period 7. Allowed opportunity for questions and acknowledgement of understanding. 1718 An Stop Meds Name Total fentaNYL (Sublimaze) injection 50 mcg/mL 100 mcg propofol (Diprivan) injection 10 mg/mL 2 00 mg Lidocaine HCl 100 MG/5ML 60 mg rocuronium (ZeMuron) injection 10 mg/mL 70 mg dexamethasone (Decadron) injection 4 mg/ mL 4 mg HYDROmorphone PF (Dilaudid) injection 1 mg/mL 1 mg ePHEDrine injection prefilled syringe 5 mg/mL 20 mg ondansetron (Zofran) injection 2 mg/mL 4 mg sugammadex (Bridion) injection 100 mg/mL 200 mg ceFAZolin 1 g 2 g lactated Ringer's infusion 0 mL * Agents Name Isoflurane Inspired Isoflurane * Blood No blood administrations on file. Lines, Drains, and Airways Type Details Placement Removal Wound 01/16/25; 0426; Traumatic; Skin Tear; Leg; Anterior, Left, Upper, Inner; left medial thigh 01/16/25 0426 by Cydney Valiente RN Wound 01/16/25; 0428; Irri tant Con; Groin 01/16/25 0428 by Cydney Valiente RN Wound 01/16/25; 1604; N; Y es; Surgical; Back; Lower 01/16/25 1604 by Nagi Patrick RN PICC Single Lumen Placement Date: 01/15/25; Placement Time: 2200; Existing LDA Placed by: Outside Facility; Orientation: Left; Removal Date: 01/18/25; Removal Time: 1300 01/15/25 2200 by Cydney Valiente RN 01/18/25 1300 by Felisa Whitlock RN Urethral Catheter Placement Date: 01/16/25; Placement Time: 0503; Inserted by: Cyndey Valiente; Type: Non-latex; Size: 16 Fr.; Balloon Size: 10 mL; Urine Returned: Yes; Removal Date: 01/17/25; Removal Time: 1418; Removal Reason: Per order 01/16/25 0503 by Cydney Valiente RN 01/17/25 1418 by Ofelia Osei RN ETT Placement Date: 01/16/25; Placement Time: 153 (created via procedure documentation); Mask Ventilation: 1; Technique: Direct laryngoscopy; Type: ETT - single; Single Lumen Tube Size: 7 mm; Cuffed: Yes; Laryngoscope: Kieran; Location: Oral; Grade View: Grade IIa; Insertion Attempts: 1; Placement Verification: Auscultation, Capnometry; Airway Comments: Atraumatic. No change to dentition. ; Placed by: VIN; Removal Date: 01/16/25; Removal Time: 17101/16/25 153 by Nani Nixon CRNA, DNP 01/16/25 171 by Carmine Archuleta CRNA, DNP Peripheral IV Placement Date: 01/16/25; Placement Time: 154 (created via procedure documentation); Catheter Size: 18 G; Orientation: Left; Location: Hand; Local Anesth: None; Technique: Anatomical landmarks; Insertion Attempts: 1; Removal Date: 01/17/25; Removal Time: 1999; Removal Reason: Occluded 01/16/25 154 by Nani Nixon CRNA, DNP 01/17/251999 by Christina Fritz RN documented in this encounter Social History Tobacco [...] any time in the past 12 m [facility], were you homeless or living in a alf (including now)? No 01/16/2025 [facility] Utilities Answer Date Recorded In the past 12 months has th e [employer], gas, oil, or water [employer] threatened to shut off services in your home? No 01/16/2025 Comments Unknown Sex and Gender Information Value Date Recorded Sex Assigned at Not on file Legal Sex Female 6:06 PM EDT Gender Identity Not on file Sexual Orientation Not on file documented as of this encounter Functional Status * Question Answer Date of Assessment Author Precautions Fall risk;Aspiration;Environmental surveillance 01/16/2025 5:17 PM Felisa Forrest, RN * Calculated C-SSRS Risk Score (Lifetime/Recent) [...] surveillance 01/16/2025 5:17 PM Felisa Forrest RN documented in this encounter Miscellaneous Notes * Anesthesia Postprocedure Evaluation - Carmine Archuleta CRNA, DNP - 01/16/2025 5:18 PM EST Patient: Rosa Wray Anesthesia Type: general Vitals Value Taken Time BP 108/41 01/16/25 17:18 Temp 98.3 01/16/25 17:18 Pulse 65 01/16/25 17:18 Resp 16 01/16/25 17:18 SpO2 98% 01/16/25 17:18 Anesthesia Post Evaluation Patient location during evaluation: PACU Patient participation: complete - patient cannot participate Level of consciousness: sedated Pain management: adequate (pain score 0-3) Airway patency: natural airway Cardiovascular status: acceptable and hemodynamically stable Respiratory status: acceptable, face mask, nonlabored ventilation and oral airway Hydration status: acceptable Nausea/Vomiting: No No notable events documented. * Anesthesia Procedure Notes - Nani Nixon CRNA, DNP - 01/16/2025 4:58 PM ESTAssociated Order(s): Peripheral IV Peripheral IV Date/Time: 01/16/2025 3:45 PM Placement Needle size: 18 G Location: hand Local anesthetic: none Site prep: alcohol Technique: anatomical landmarks Attempts: 1 * Anesthesia Procedure Notes - Nani Nixon CRNA, DNP - 01/16/2025 3:53 PM ESTAssociated Order(s): Airway Airway Date/Time: 01/16/2025 3:32 PM Reason: elective Airway not difficult General Information and Staff Patient location during procedure: OR MOLD POLISHER: Nani Nixon CRNA, DNP Performed: MOLD POLISHER Patient Condition Indications for airway management: anesthesia Patient position: sniffing Final Airway Details Final airway type: endotracheal airway Successful airway: ETT Cuffed: yes Successful intubation technique: direct laryngoscopy Adjuncts used in placement: intubating stylet and cricoid pressure Endotracheal tube insertion site: oral Blade: Kieran ETT size (mm): 7.0 Cormack-Lehane Classification: grade IIa - partial view of glottis Placement verified by: chest auscultation and capnometry Measured from: lips ETT to lips (cm): 21 Additional Comments Atraumatic. No change to dentition. * Anesthesia Preprocedure Evaluation - Diane Wong MD - 01/16/2025 10:38 AM EST Procedure Information Date/Time: 01/16/25 1120 Procedure: EXPLORATION, WOUND, POSSIBLE SCS REMOVAL/REVISION, ALL OTHER INDICATED PROCEDURES (Back) Location: [facility] / [place] [facility] Surgeons: Fransisco Farley MD GISELLE Wray is a 74 y.o. female with body mass index is 37.8 kg/m??. who presents with Postoperative sepsis (CMS/HCC) now for above procedure. Pt had spinal cord stimulator placed approx 3 weeks agoat OSH PMH: DM2, HTN, depression with anxiety, seizure disorder, GERD, acute diarrheal illness (recent C. diff), AIRWAY HISTORY: 04/2020 [place] 2, grade 2a view, 7.0 ETT x 1 attempt NPO STATUS: since 0000 Activity Level/METS:>4 Type & Screen Expires: 01/19 Lab Results Component Value Date ABO A Positive 01/16/2025 ALLERGIES Allergies[1] MEDICATIONS Outpatient Current Outpatient Medications Medication Instructions amitriptyline (ELAVIL) 25 mg, Oral, ZZ Daily RT aspirin 81 mg, Oral, ZZ Daily RT carvedilol (COREG) 25 mg, Oral, 2 times daily with meals clonazePAM (KLONOPIN) 1 mg, Oral, 2 times daily PRN empagliflozin-metFORMIN ER (Synjardy XR) 12.5-1000 MG 24 hr tablet 2 tablets, Oral, Daily with breakfast ferrous sulfate 325 mg, Oral, 3 times daily Finerenone 10 MG tablet Oral mupirocin (Bactroban) 2 % ointment 1 Application, Topical, 2 times daily pantoprazole (PROTONIX) 40 mg, Oral, 2 times daily, Do not crush, chew, or split. rosuvastatin (CRESTOR) 10 mg, Oral, Daily SITagliptin (JANUVIA) 100 mg, Oral, ZZ Daily RT traMADol (Ultram) 50 MG tablet Oral Vortioxetine HBr 20 MG tablet Oral Scheduled Current Scheduled Medications[2] PRNs Current PRN Medications[3] SURGICAL HX: Surgical History[4] knee replacement, scs, UHR SOCIAL HX: Social History[5] denies tobacco, etoh, illicit drugs OBJECTIVE DATA Blood pressure (!) 182/33, pulse 84, temperature 36.8 ??C (98.2 ??F), temperature source Oral, resp. rate 18, height 1.6 m (5' 3 ), weight 96.8 kg (213 lb 6.5 oz), SpO2 91%. LABS Lab Results Component Value Date WBC 9.75 01/16/2025 HGB 9.4 (L) 01/16/2025 HCT 28.1 (L) 01/16/2025 MCV 96 01/16/2025 PLT 338 01/16/2025 Lab Results Component Value Date CALCIUM 9.0 01/16/2025 BUN 17 01/16/2025 CREATININE 0.97 01/16/2025 BCR 18 01/16/2025 NA 137 01/16/2025 K 4.1 01/16/2025 CL 103 01/16/2025 CO2 22 01/16/2025 ANIONGAP 12 01/16/2025 aPTT Date Value Ref Range Status 01/16/2025 36 (H) 25 - 35 sec Final INR Date Value Ref Range Status 01/16/2025 1.2 (H) 0.9 - 1.1 Final Lab Results Component Value Date HGBA1C 7.8 (H) 01/16/2025 GLUCOSE 141 (H) 01/16/2025 EKG No results found for this or any previous visit (from the past 4464 hours). ECHO No echocardiogram results found for the past 12 months CXR: Physical Exam Airway Mallampati: III Mouth opening: normal TM distance: >3 FB Neck ROM: full Cardiovascular Rhythm: regular Rate: normal Dental Pulmonary Breath sounds clear to auscultation Neurological Oriented: normal to time, normal to place and normal to person Skin Musculoskeletal Extremities Anesthesia Plan ASA 3 Plan was reviewed with: MOLD POLISHER Anesthesia technique(s) discussed with the patient/family: general Anesthesia plan agreed upon was: general Anesthetic plan and risks discussed with patient. Use of blood products discussed with patient who. Comment: Specific risks associated with the prone position (ION, swelling, positioning) discussed with patient and patient understands and accepts risks. ROS Anesthesia: Date of last anesthetic: 12/2024 history of previous anesthesia. Does not have obstructive sleep apnea. Anesthesia ROS additional comments: Denies complications with GA Cardiovascular: valvular heart disease (MVP). hypertension: Exercise tolerance is 1 flight of stairs. Respiratory: Negative respiratory ROS.no asthma: no COPD: HEENT: missing teeth.Does not have temporomandibular joint syndrome. Neurological: no seizures: Neuro additional comments: 04/2020 had cerebral aneurysm repair Musculoskeletal: arthritis. Autoimmune: Does not have lupus, rheumatoid arthritis or scleroderma. Gastrointestinal: GERD:Does not have cirrhosis or hepatitis. obese. Genitourinary: chronic renal disease: CRI Hematological/Lymphatic: anemia. History of no DVT. History of no pulmonary embolism. no history of chemotherapy no history of radiation MRSA. Hem/Lymph ROS additional comments: Recent c-diff Endocrine/Metabolic: diabetes mellitus. Does not have thyroid disorder. [1] Allergies Allergen Reactions Ozempic (0.25 Or 0.5 Mg-Dose) [Semaglutide(0.25 Or 0.5mg-Dos)] Vomiting Promethazine Other - please document in the comment field Sore mouth [2] amitriptyline, 25 mg, Oral, Nightly carvedilol, 25 mg, Oral, BID ferrous sulfate, 324 mg, Oral, BID with meals insulin regular, 0-5 Units, Subcutaneous, q6h LAURA mupirocin, 1 Application, Each Nostril, BID NIFEdipine [...] q24h Vortioxetine HBr, 20 mg, Oral, Daily [3] PRN medications: bisacodyl, clonazePAM, glucose OR dextrose 10 % OR dextrose 10 % OR glucagon (human recombinant), HYDROmorphone, ipratropium- albuterol, melatonin, ondansetron ODT OR ondansetron OR ondansetron, oxyCODONE, simethicone, sodium chloride, Insert peripheral IV AND Saline lock IV AND sodium chloride AND sodium chloride, sodium chloride [4] Past Surgical History: Procedure Laterality Date CHOLECYSTECTOMY COLONOSCOPY ESOPHAGOGASTRODUODENOSCOPY HERNIA REPAIR WRIST SURGERY [5] Social History Tobacco Use Smoking status: Never Smokeless tobacco: Never Substance Use Topics Alcohol use: Never Drug use: Never documented in this encounter Plan of Treatment Upcoming Encounters Date Type Department Care Team (Late st Contact Info) Description 03/27/2025 8:30 AM EST Consult [place] [facility] [address], [address] [place] [address] Fransisco Farley MD [address] [facility] [address] [place] [address] documented as of this encounter Procedures Procedure Name Priority Date/Time Associated Diagnosis Comments ANESTHESIA PERIPHERAL IV PLACEMENT Routine 01/16/2025 3:45 PM EST PB ANESTHESIA PLACEHOLDER Routine 01/16/2025 3:32 PM EST NE AN ELECTIVE ENDOTRACHEAL AIRWAY Routine 01/16/2025 3:32 PM EST documented in this encounter Results * Peripheral IV (01/16/2025 3:45 PM EST) Narrative Nani Nixon CRNA, DNP - 01/16/2025 3:45 PM EST Nani Nixon CRNA, DNP 01/16/2025 4:59 PM Peripheral IV Date/Time: 01/16/2025 3:45 PM Placement Needle size: 18 G Location: hand Local anesthetic: none Site prep: alcohol Technique: anatomical landmarks Attempts: 1 us Diane Wong MD ANESTHESIA ORDERABLES Final R esult * NE AN ELECTIVE ENDOTRACHEAL AIRWAY, PB ANESTHESIA PLACEHOLDER (01/16/2025 3:32 PM EST) Narrative Nani Nixon CRNA, DNP - 01/16/2025 3:32 PM EST Nani Nixon CRNA, DNP 01/16/2025 3:54 PM Airway Date/Time: 01/16/2025 3:32 PM Reason: elective Airway not difficult General Information and Staff Patient location during procedure: OR MOLD POLISHER: Nani Nixon CRNA, DNP Performed: VIN Patient Condition Indications for airway management: anesthesia Patient position: sniffing Final Airway Details Final airway type: endotracheal airway Successful airway: ETT Cuffed: yes Successful intubation technique: direct laryngoscopy Adjuncts used in placement: intubating stylet and cricoid pressure Endotracheal tube insertion site: oral Blade: Kieran ETT size (mm): 7.0 Cormack-Lehane Classification: grade IIa - partial view of glottis Placement verified by: chest auscultation and capnometry Measured from: lips ETT to lips (cm): 21 Additional Comments Atraumatic. No change to dentition. us Diane Wong MD ANESTHESIA ORDERABLES Final R esult documented in this encounter Visit Diagnoses Not on filedocumented in this encounter Administered Medications Inactive Administered Medications - up to 3 most recent administrations Medication Order MAR Action Action Date Dose Rate Site ceFAZolin (Ancef) injection Intravenous, As needed, Starting on Wed01/16/25 at 1545, Until Wed01/16/25 at 1718, Routine, Anesthesia Intraprocedure Given 01/16/2025 3:45 PM EST 2 g dexamethasone (Decadron) injection Intravenous, As needed, Starting on e 01/16/25 at 1545, Until Wed01/16/25 at 1718, Routine, Anesthesia Intraprocedure Given 01/16/2025 3:45 PM EST 4 mg ePHEDrine Sulfate (Akovaz) injection Intravenous, As needed, Starting on Wed01/16/25 at 1600, Until Wed01/16/25 at 1718, Routine, Anesthesia Intraprocedure Given 01/16/2025 4:00 PM EST 10 mg Given 01/16/2025 3:56 PM EST 10 mg fentaNYL (Sublimaze) injection Intravenous, As needed, Starting on Wed01/16/25 at 1529, Until Wed01/16/25 at 1718, Routine, Anesthesia Intraprocedure Given 01/16/2025 4:05 PM EST 50 mcg Given 01/16/2025 3:29 PM EST 50 mcg HYDROmorphone PF (Dilaudid) injection Intravenous, As needed, Starting on Wed01/16/25 at 1631, Until Wed01/16/25 at 1718, Routine, Anesthesia Intraprocedure Given 01/16/2025 4:41 PM EST 0.5 mg Given 01/16/2025 4:31 PM EST 0.5 mg lactated Ringer's infusion 100 mL/hr, Intravenous, Continuous, Starting on Wed01/16/25 at 0200, Until Wed01/16/25 at 1334, Routine New Bag 01/16/2025 3:24 PM EST Rate/Dose Verify 01/16/2025 1:00 PM EST 100 mL/ hr Rate/Dose Verify 01/16/2025 12:00 PM EST 100 mL /hr Lidocaine HCl prefilled syringe Buccal, As needed, Starting on Wed01/16/25 at 1529, Anesthesia Intraprocedure Given 01/16/2025 3:29 PM EST 60 mg ondansetron (Zofran) injection Intravenous, As needed, Starting on Wed01/16/25 at 1545, Until Wed01/16/25 at 1718, Routine, Anesthesia Intraprocedure Given 01/16/2025 3:45 PM EST 4 mg propofol (Diprivan) injection Intravenous, As needed, Starting on Wed01/16/25 at 1529, Until Wed01/16/25 at 1718, Routine, Anesthesia Intraprocedure Given 01/16/2025 5:05 PM EST 50 mg Given 01/16/2025 4:08 PM EST 20 mg Given 01/16/2025 3:29 PM EST 130 mg rocuronium (ZeMuron) injection Intravenous, As needed, Starting on Wed01/16/25 at 1529, Until Wed01/16/25 at 1718, Routine, Anesthesia Intraprocedure Given 01/16/2025 4:08 PM EST 20 mg Given 01/16/2025 3:29 PM EST 50 mg sugammadex (Bridion) 100 MG/ML injection Intravenous, As needed, Starting on Wed01/16/25 at 1705, Until Wed01/16/25 at 1718, Routine, Anesthesia Intraprocedure Given 01/16/2025 5:05 PM EST 200 mg documented in this encounter Additional Health Concerns Assessment Noted Time A Body Mass Index follow-up plan has been documented for the patient 01/23/2025 12:18 PM EST documented as of this encounter Care Teams Csr Relationship Specialty Start Date End Date Chase Gunn MD [address] [place] [address] PCP - General 06/21/20 documented as of this encounter
--- OUTSIDE RECORDS SUMMARY | 2025-01-26 09:07 | XMS_ITS | Clinical Summary ---
Author Organization [facility] Address [address] [place] [address] Care Team Providers Care Siebel Solution Architect Name Role Phone Chase Gunn MD Primary Care Provider [phone] Allergies Active Allergy Reactions Criticality Noted Date [...] guanFACINE (TENEX) 1 MG tablet 09/24/2023 Active oxyCODONE (ROXICODONE) 5 MG immediate release tablet Take 1 tablet by mouth Every 4 (Four) to 6 (Six) Hours As Needed for Post-Op Pain for up to 3 Days. 18 tablet 12/14/2024 1:15 PM EST 12/14/2024 Active Active Problems Problem Noted Date Diagnosed [...] 1960 URINE MICROALBUMIN-CREATININ E RATIO (uACR) 1960 MAMMOGRAM 1990 COLOGUARD 12/20/1995 COLON CANCER SCREENING 5 YEA R SIGMOIDOSCOPY 12/20/1995 COLONOSCOPY 12/20/1995 COLORECTAL CANCER SCREENING 12/20/1995 CT COLONOGRAPHY 12/20/1995 FECAL OCCULT BLOOD TEST 12/20/1995 FIT Testing (1 year) 12/20/1995 ZOSTER VACCINE (1 of 2) 2000 ANNUAL WELLNESS VISIT 10/29/2016 COVID-19 Vaccine ( season) 2024 11/07/2020, 06/20/2020, 05/23/2020 HEMOGLOBIN A1C 07/17/2025 01/16/2025 TDAP/TD VACCINES (2 - Td or Tdap) 04/07/2033 024 INFLUENZA VACCINE Completed 11/22/2024, , 11/05/2016 Pneumococcal Vaccine 50+ Completed 12/04/2024 HEPATITIS C SCREENING Completed 01/18/2025 Medical Devices Implanted Type Area Service Station Operator Device Identifier Shelf Expiration Date Model / Serial / Lot Interstim Implant Coil Target 3d 3mm 6cm - [id number] Implanted:Qty: 1 on 05/03/2020 by Jerome Hays MD at [facility] Implant [employer] CAR[employer]EL[employer] [id number] / / Coil Target Detach 360 Nikia 2mm 3cm - [id number] Implanted:Qty: 1 on 05/03/2020 by Jerome Hays MD at [facility] Implant [employer] [id number] / / Explanted Type Area Service Station Operator Device Identifier Shelf Expiration Date Model / Serial / Lot Coil Axium [place] 3d Sys 2.6lxj8nd - [id number] Explanted:Qty: 1 on 05/03/2020 at [facility] Implant [employer] [id number] / / Description:Did not detach t he coil Coil Axium [place] 3d Sys 4mm 6cm - [id number] Explanted:Qty: 1 on 05/03/2020 at [facility] Implant EV3 A [employer] [id number] / / Description:Coil removed Coil Axium Prime 3d Xsft 3mm 4cm - [id number] Explanted:Qty: 1 on 05/03/2020 at [facility] Implant [employer] [id number] / / Description:Coil removedf Coil Axium [place] 3d Sys 3x4mm - [id number] Explanted:Qty: 1 on 05/03/2020 at [facility] Implant EV3 A [employer] [id number] / / Description:Coil removed Procedures Procedure Name Priority Date/Time Associated Diagnosis Comments CT OUTSIDE ABD/PELVIS Routine 01/10/2025 12:00 AM EST from Last 3 Months Results * CT Outside Abd/Pelvis (01/10/2025 12:00 AM EST) Narrative SYSTEMGENERATED, DOCUMENTATION - 01/12/2025 5:00 PM EST This procedure was auto-finalized with no dictation required. us Radiant Outside Films IMG CT ORDERABLES Final Re sult from Last 3 Months Insurance O MEDICARE A & B Advance Directives Documents on File Type Date Recorded Patient Natural Science Curator Expl anation LIVING WILL - SCAN 05/03/2020 [...] Of Support Discussed With: Patient Care Teams Siebel Solution Architect Relationship Specialty Start Date End Date Chase Gunn MD [address] [facility] [address] [facility] [address] [place] [address] PCP - General Family Medicine 04/10/20
--- OUTSIDE RECORDS SUMMARY | 2025-01-26 09:07 | XMS_ITS | Continuity of Care Document ---
Author Organization [facility] Address [address] [place] [address] Care Team Providers Care Micro Paleontologist Name Role Phone DARIELA LOCKETT Primary Care Provider Assessment Encounter Date Assessment Date Assessment LastModified by Organization Details LastModified Time 12/07/2024 12/07/2024 - 73-year-old female with a history of overactive bladder presenting with urinary urgency and urge incontinence. - The patient reports limited improvement with current medication, Gemtesa, and previous use of trospium was also ineffective. - History of neurostimulator placement in 2018, removed due to lack of improvement. - Considering Botox injections as a potential treatment option. [email or web address] Not available 12/07/2024 15:58:12 Plan of Treatment Reminders Order Date Submit Date Provider Last Modified By Organization Details Last Modified Time Details Appointments None recorded. Lab urinalysis panel, auto 2024 025 [email or web address] [facility] [place] [facility], [address] [place] [address] , [address], [place], [address], 15:56:20 Referral None recorded. Procedures None recorded. Surgeries cystourethr oscopy, with injections for chemodenerv ation of the bladder (SURG) 2024 025 [id number] [facility], [address] [facility], [facility] [address], [place], [address], 12:03:09 Imaging None recorded. Medication Orders mirabegron ER 50 mg tablet,exte nded release 24 hr 2024 025 [facility], [address] [place], [address], 15:58:38 Patient TargetsNo targets recorded. Patient Instructions Encounter Date Encounter Id Patient Instructions Last Modified By Organization Details Last Modified Time 12/07/2024 [id number] - Continue takin g Gemtesa as prescribed. - Prepare for scheduled Botox injections for bladder management. - Monitor urinary symptoms and report any changes. [email or web address] Not available 12/07/2024 15:58:14 Reason for Referral None Reported. Results Created Date Observation Date Name Description Value Unit Range Abnormal Flag Note LastModifiedBy Organization Detail LastModifiedTime 12/08/1912/07/2024 urina lysis panel , auto Unknown Analyte Clean Catch Not Available [address], [place], [address], 12/07/2024 15:54:20 12/08/19 25 12/07/2024 urina lysis panel , auto Unknown Analyte Yellow Not Available [facility] With [address], [place], [address], 12/07/2024 15:54:20 12/08/19 25 12/07/2024 urina lysis panel , auto Unknown Analyte Clear Not Available [facility] With [address], [place], [address], 12/07/2024 15:54:20 12/08/1912/07/2024 urina lysis panel , auto Unknown Analyte 1.015 Not Available [facility] With [address], [place], [address], 12/07/2024 15:54:20 12/08/19 25 12/07/2024 urina lysis panel , auto Unknown Analyte 1.003 - 1.030 Not Available [address], [place], [address], 12/07/2024 15:54:20 12/08/19 25 12/07/2024 urina lysis panel , auto Unknown Analyte 6.0 Not Available [facility] With [address] Garcia F, [place], [address], 12/07/2024 15:54:20 12/08/19 25 12/07/2024 urina lysis panel , auto Unknown Analyte 5.0 - 8.0 Not Available [facility] With [address] Garcia F, [place], [address], 12/07/2024 15:54:20 12/08/19 25 12/07/2024 urina lysis panel , auto Unknown Analyte Negati ve Not Available [facility] With [address], [place], [address], 12/07/2024 15:54:20 12/08/19 25 12/07/2024 urina lysis panel , auto Unknown Analyte Negati ve Not Available [facility] With [address] Jose [address], [place], [address], 12/07/2024 15:54:20 12/08/19 25 12/07/2024 urina lysis panel , auto Unknown Analyte Negati ve Not Available [facility] With [address], [place], [address], 12/07/2024 15:54:20 12/08/19 25 12/07/2024 urina lysis panel , auto Unknown Analyte Negati ve Not Available [facility] With [address], [place], [address], 12/07/2024 15:54:20 12/08/19 25 12/07/2024 urina lysis panel , auto Unknown Analyte Negati ve Not Available [facility] With [address], [place], [address], 12/07/2024 15:54:20 12/08/19 25 12/07/2024 urina lysis panel , auto Unknown Analyte Negati ve Not Available [facility] With [address], [place], [address], 12/07/2024 15:54:20 12/08/19 25 12/07/2024 urina lysis panel , auto Unknown Analyte >1000 mg/dL Not Available [facility] With [address], [place], [address], 12/07/2024 15:54:20 12/08/19 25 12/07/2024 urina lysis panel , auto Unknown Analyte Normal Not Available [facility] With [address], [place], [address], 12/07/2024 15:54:20 12/08/19 25 12/07/2024 urina lysis panel , auto Unknown Analyte Negati ve Not Available [facility] With [place] [address], [place], [address], 12/07/2024 15:54:20 12/08/19 25 12/07/2024 urina lysis panel , auto Unknown Analyte Negati ve Not Available [facility] With [address], [place], [address], 12/07/2024 15:54:20 12/08/19 25 12/07/2024 urina lysis panel , auto Unknown Analyte Normal Not Available [facility] With [address], [place], [address], 12/07/2024 15:54:20 12/08/19 25 12/07/2024 urina lysis panel , auto Unknown Analyte Normal Not Available [facility] With [address], [place], [address], 12/07/2024 15:54:20 12/08/19 25 12/07/2024 urina lysis panel , auto Unknown Analyte Negati ve Not Available [facility] With [address], [place], [address], 12/07/2024 15:54:20 12/08/19 25 12/07/2024 urina lysis panel , auto Unknown Analyte Negati ve Not Available [facility] With [address], [place], [address], 12/07/2024 15:54:20 12/08/19 25 12/07/2024 urina lysis panel , auto Unknown Analyte Negati ve Not Available [facility] With [address], [place], [address], 12/07/2024 15:54:20 12/08/1912/07/2024 urina lysis panel , auto Unknown Analyte Negati ve Not Available [facility] With [address], [place], [address], 12/07/2024 15:54:20 Result Notes None recorded. Problems Name Problem SNOMED Code Status Onset Date Resolution Date Notes Provider Name and Address Organization Details Recorded Time Overactive urinary bladder 590142753 Active 024 JOSE AMIN MD [address] [place] [address], [address] [place] [address] 15:59:10 Problem Notes None recorded. Procedures Surgical History Date Name Laterality Status Provider Name and Address Organization Details Recorded Time 07/11/19 arthroplasty of knee completed Murelene Dionicio [facility] 12/07/2024 15:54:02 cholecystectomy completed Anthony Richards [facility] 11/22/2023 14:47:43 Carpal tunnel surgery completed [facility] 11/22/2023 14:47:59 hernia repair completed [facility] 11/22/2023 14:48:23 biopsy completed [facility] 11/22/2023 14:48:59 Tubal Ligation completed [facility] 11/22/2023 14:49:07 procedure on finger completed [facility] 11/22/2023 14:49:32 Cerebral Aneurysm completed [facility] 11/22/2023 14:50:43 Imaging Results None recorded. Procedure Notes None recorded. Medical Equipment None Reported. Allergies Allergen ID Allergen Name Allergen Category Reaction Reaction Severity Criticality Documentation Date Start Date Code Code System Note Provider Name and Address Organization Details Recorded Time [id number] Ozempic medicatio n Not available Not available Not available 11/22/2023 [facility] 14:43:39 Medications Name Sig [...] 15 mg tablet,exte nded release 24 hr 12/07 completed Not Available Not Available Not Available [...] Not Available hyoscyamine 0.125 mg sublingual tablet 12/07 completed Not Available Not Available Not Available [...] day by oral route for 90 days. 12/07 completed Not Available Not Available Not Available solifenacin 10 mg tablet Take 1 tablet every day by oral route for 90 days. 01/27 completed Not Available Not Available Not Available darifenacin ER 15 mg tablet,exte nded release 24 hr Take 1 tablet every day by oral route. 12/07 completed Not Available Not Available Not Available aspirin active Not Available Not Avail able Not Available calcium active Not Available Not Avail able Not Available ferrous sulfate active Not Available Not Available Not Available Januvia 100 mg tablet active Not Available Not Available No t Available candesartan 32 mg-hydrochl orothiazide 25 mg tablet active Not Available Not Available Not Available Probiotic active Not Available Not Ayana ilable Not Available mirabegron ER 50 mg tablet,exte nded release 24 hr Take 1 tablet every day by oral route for 90 days. 2024 active Not Available Not Available Not Avai lable Multi Vitamin active Not Available Not Available Not Available Trintellix 20 mg tablet active Not Available Not Available Not Available Synjardy XR 12.5 mg-1,000 mg tablet, extended release active Not Available Not Available Not Available Gemtesa 75 mg tablet 12/07 completed Not Available Not Available Not Available [...] and Address Organization Details Last Updated DateTime 12/07/2024 165.1 cm 32.4 kg/m2 44456.51 g Gerson Dionicio [facility] 12/07/2024 15:53:27 Social History Question Answer Notes LastModified by Organizat ion Details LastModified Time Tobacco Smoking Status Never Smoker Anthony brock, [facility] 11/22/2023 14:47:17 What Was The Date Of Your Most Recent Tobacco Screening? 06/15/2024 [email or web address] Information not available 06/15/2024 What Is Your Relationship Status? [email or web address] Information not available 11/22/2023 Has Tobacco Cessation Counseling Been Provided? No [email or web address] Information not available 11/22/2023 Sex: Unknown Functional Status Question Answer Note LastModified by Organizat ion Details LastModified Time Do you use any illicit or recreational drugs? No [email or web address] Information not available 11/22/2023 Do you or have you ever used any other forms of tobacco or nicotine? No [email or web address] Information not available 11/22/2023 What is your level of alcohol consumption? None [email or web address] Information not available 11/22/2023 Are you currently employed? No retired [email or web address] Information not available 11/22/2023 Mental Status None recorded. Family History Relationship Description Onset Age of this Age Resolved Age Notes LastModified by Organization Details LastModified Time Father No current problems or disability [email or web address] Not available 14:47:07 Mother No current problems or disability [email or web address] Not available 14:47:07 Medical History Condition Response Diabetes Y Anemia Y Arthritis Y Stroke Y Hypertension Y Gynecological HistoryNo gynecological history recorded. Obstetrics History GPAL:G 0 P 0 0 0 0 Immunizations Vaccine Type Date Status Note Provider Nam e and Address Organization Details Recorded Time Influenza, high-dose, trivalent, PF 7 completed Not Available [facility] 12/07/2024 15:51:40 Influenza, split virus, quadrivalent, PF 8 completed Not Available [facility] 12/07/2024 15:51:40 COVID-19, mRNA, LNP-S, PF, 100 mcg/0.5mL dose or 50 mcg/0.25mL dose 1 completed Not Available [facility] 12/07/2024 15:51:40 COVID-19, mRNA, LNP-S, PF, 100 mcg/0.5mL dose or 50 mcg/0.25mL dose 1 completed Not Available [facility] 12/07/2024 15:51:40 COVID-19, mRNA, LNP-S, PF, 100 mcg/0.5mL dose or 50 mcg/0.25mL dose 1 completed Not Available [facility] 12/07/2024 15:51:40 Tdap 4 completed Not Available [facility] 12/07/2024 15:51:40 Influenza, high-dose, quadrivalent, PF 5 completed Not Available [facility] 12/07/2024 15:51:40 Pneumococcal conjugate PCV20, polysaccharide CSS513 conjugate, adjuvant, PF completed Not Available [facility] 12/07/2024 15:51:40 Past Encounters Encounter ID Performer Location Encounter Start Date Encounter Closed Date Diagnosis/Indication Diagnosis SNOMED-CT Code Diagnosis ICD10 Code Diagnosis IMO Codes Diagnosis Note [id number] JOSE AMIN MD [facility] [address] [facility],[place] [address] 12/07/2024 15:50:47 12/07/2024 16:37:13 Overactive urinary bladder 131028150 N32.81 541511 - Continue current medication regimen with Gemtesa, although effectiven ess is limited. - Schedule for Botox injections to manage symptoms, as discussed. Urge incon tinence of urine 54557378 N39.41 748492 - Considerat ion of Botox injections for symptom management . Nocturia 508756240 R35.1 98881 - Monitor nocturia symptoms and adjust treatment plan as necessary. Health Concerns Section Related Observation LastModified by Organization Detai ls LastModified Time None Recorded Concern Status LastModified by Organization Details LastModified Time None Recorded Payers Encounter Date Sequence Insurance Name Policy Number Policy Batista Covered Member ID Batista Member ID Guarantor Name 12/07/2024 1 [place]ARE[place]ICARE[place] [facility] [id number] [facility] 12/07/2024 2 [facility] [id number] [facility] [id number] [address] [facility] Notes Date Note Type Note Provider Name and Address Organization Details Recorded Time 12/07/2024 text/html The patient is a 73-year-old female presenting with overactive bladder symptoms and urinary urgency with urge incontinence. She reports wearing pads during the day and needing to change them two to three times due to urgency and incontinence. At night, she experiences nocturia, typically waking once to urinate, although sometimes she urinates a significant amount. Previously, she was initiated on trospium, but it did not provide significant improvement. She also has a history of a neurostimulator placed in 2018, which was removed due to lack of clinical improvement. Currently, she is taking Gemtesa, but reports it is not effective. The patient is considering other treatment options, including Botox injections for the bladder. Documentation on this patient encounter was supported using voice-enabled Al technology. The patient consented to recording for the purpose of documenting the encounter. Provider reviewed content of the generated note prior to signature. JOSE AMIN MD [address] [place] [address], [phone], [facility] 12/18/2024 09:26:56 OBGyn Episode No OBEpisode recorded.
--- OUTSIDE RECORDS SUMMARY | 2025-01-26 09:08 | XMS_ITS | Clinical Summary ---
Author Organization [facility] Address [address] [place] [address] Care Team Providers Care Mammography Technician Name Role Phone Chase Gunn MD Primary Care Provider + [phone] Allergies Active Allergy Reactions Criticality Noted Date Comments Semaglutide(0.25 Or 0.5mg-Dos) Vomiting 01/15/2025 Promethazine Other - please docum ent in the comment field Low 01/16/2025 Sore mouth Medications amitriptyline (Elavil) 25 MG tablet Take 1 tablet by mouth 1 time each day. Active aspirin 81 MG EC tablet Take 1 tablet by mouth 1 time each day. Active carvedilol (Coreg) 25 MG tablet Take 1 tablet by mouth 2 times a day with meals. Active empagliflozin-met FORMIN ER (Synjardy XR) 12.5-1000 MG 24 hr tablet Take 2 tablets by mouth daily with breakfast. Active rosuvastatin (Crestor) 10 MG tablet Take 1 tablet by mouth daily. Active Vortioxetine HBr 20 MG tablet Take 1 tablet by mouth daily. Active mirabegron ER (Myrbetriq) 50 MG tablet Take 1 tablet by mouth daily. 025 2025 Active pioglitazone (Actos) 30 MG tablet Take 1 tablet by mouth daily. 025 2025 Active Probiotic tablet delayed-release Take 1 tablet by mouth daily. Active sAXagliptin (Onglyza) 5 MG tablet Take 1 tablet by mouth daily. Active Calcium Carb-Cholecalcife rol (CALCIUM 1000 + D PO) Take 1 tablet by mouth daily. Active Multiple Vitamins-Minerals (ONE-A-DAY WOMENS PO) Take 1 tablet by mouth daily. Active pantoprazole (Protonix) 40 MG EC tablet Take 1 tablet by mouth 2 times a day. Do not crush, chew, or split. Active NIFEdipine XL (Adalat CC) 30 MG 24 hr tablet Take 1 tablet by mouth daily. Do not crush, chew, or split. Active sodium chloride 0.9% solution 250 mL with vancomycin 1.25 g reconstituted solution 1,250 mg IVPBIndications:P ostoperative sepsis (CMS/HCC),Celluli tis of back except buttock Infuse 1,250 mg into a venous catheter 1 (one) time each day at the same time at 200 mL/hr over 75 minutes. Active ferrous sulfate 325 (65 Fe) MG tablet Take 1 tablet by mouth every other day. Active clonazePAM (KlonoPIN) 1 MG tablet Take 1 tablet by mouth daily as needed for anxiety. 3 tablet Active ferrous sulfate 325 (65 Fe) MG tablet Take 1 tablet by mouth 3 times a day. 2024 Discontinued SITagliptin (Januvia) 100 MG tablet Take 1 tablet (100 mg) by mouth 1 (one) time each day. 2024 Discontinued(E ntered in Error) clonazePAM (KlonoPIN) 1 MG disintegrating tablet Dissolve 1 tablet on the tongue 2 times a day as needed for seizures. 2024 Discontinued(E ntered in Error) Finerenone 10 MG tablet Take 1 tablet by mouth daily. 2024 Discontinued(S top Taking at Discharge) mupirocin (Bactroban) 2 % ointment Apply 1 Application topically 2 (two) times a day. 2024 Discontinued(E ntered in Error) pantoprazole (Protonix) 40 MG EC tablet Take 1 tablet (40 mg) by mouth 2 (two) times a day. Do not crush, chew, or split. 2024 Discontinued(E ntered in Error) traMADol (Ultram) 50 MG tablet Take by mouth. 2024 Discontinued(E ntered in Error) guanFACINE (Tenex) 1 MG tablet Take 1 tablet by mouth daily. 2024 Discontinued(S top Taking at Discharge) hydrALAZINE (Apresoline) 25 MG tablet Take 1 tablet by mouth daily. 2024 Discontinued(S top Taking at Discharge) Vonoprazan Fumarate (Voquezna) 10 MG tablet Take 1 tablet by mouth daily. 2024 Discontinued(S top Taking at Discharge) clonazePAM (KlonoPIN) 1 MG tablet Take 1 tablet by mouth daily. 025 2024 Discontinued clonazePAM (KlonoPIN) 1 MG tablet Take 1 tablet by mouth daily as needed for anxiety. 025 2024 Discontinued Active Problems Problem Noted Date Diagnosed Date Severe obesity (BMI 35.0-39.9) with comorbidity 01/21/2025 Mixed hyperlipidemia 01/16/2025 Major depressive disorder with single episode, i n remission 01/16/2025 MADELEINE (iron deficiency anemia) 01/16/2025 Gastroesophageal reflux disease without esophagi tis 01/16/2025 Hypertension 02/29/2024 Diabetes mellitus 02/29/2024 Resolved Problems Problem Noted Date Diagnosed Date Resolved Date Postoperative sepsis 01/16/2025 Cellulitis of back except buttock 01/16/2025 01/23/2025 MRSA bacteremia 01/16/2025 01/23/2025 Transaminitis 01/16/2025 01/23/2025 Encounters Date Type Department Care Team Description 01/24/2025 Clinical Support [address] [phone] Madelaine Guevara, PharmD 01/22/2025 Clinical Support [facility] [address] [place] [phone] Madelaine Guevara, PharmD 01/20/2025 Travel 01/17/2025 Travel 01/16/2025 3:24 PM EST Anesthesia Event [facility] [address] [place] [address] Diane Wong MD Carney Tinsley, Amanda S, APRN, DNP 01/16/2025 3:00 PM EST - 01/16/2025 5:10 PM EST Surgery [facility] [address] [place] [address] Fransisco Farley MD EXPLORATION, WOUND, POSSIBLE SCS REMOVAL/REVISION, ALL OTHER INDICATED PROCEDURES [ (CPT )] 01/16/2025 Travel 01/15/2025 9:57 PM EST - 01/23/2025 1:13 PM EST Hospital Encounter [facility] [address] [place] [address] Fransisco Farley MD Arora, Ankit, MD Ramay, Tehreem K, MD Jose, Merlin Valdez MD MRSA bacteremia (Primary Dx); Postoperative sepsis (CMS/[facility]) [T81.44XA]; Cellulitis of back except buttock Discharge Disposition: Longterm Facility 01/15/2025 Travel 01/14/2025 Orders Only External Location [address] [place] [address] Provider, External 01/13/2025 Orders Only External Location [address] [place] [address] Provider, External 01/10/2025 Orders Only External Location [address] [place] [address] Provider, External 01/10/2025 Orders Only External Location [address] [place] [address] Provider, External 01/10/2025 Orders Only External Location [address] [place] [address] Provider, External 01/10/2025 Orders Only External Location [address] [place] [address] Provider, External 01/10/2025 - 01/10/2025 11:59 PM EST Hospital Encounter [facility] [address] [place] [address] Examination Discharge Disposition: Home or Self Care from Last 3 Months Immunizations Immunization Administration Dates Next Due Influenza, High-dose, Split Virus, Trivalent, Injectable, preservative free 11/05/2016 Influenza, high-dose, quadrivalent 11/22/2024 Influenza, injectable, quadrivalent, preservativ e free 11/19/2017 Pneumococcal 20-phoebe Conj Vaccine 12/04/2024 Tdap 04/08/2023 Social History Tobacco Use Types [...] time in the past 12 m [facility], were you homeless or living in a half-way (including now)? No 01/16/2025 [facility] Utilities Answer Date Recorded In the past 12 months has th e [employer], gas, oil, or water company threatened to [...] Mass Index 37.61 01/16/2025 3:05 PM EST Plan of Treatment Upcoming Encounters Date Type Department Care Team (Late st Contact Info) Description 03/27/2025 8:30 AM EST Consult [place] [facility] [address] [place] [address] Fransisco Farley MD [address] [place] [address] Health Maintenance Due Date Last Done Comments [facility]-Bone Density Scan 1950 [facility]-Depression Screening 1950 [facility]-Medicare Annual Wellness (AWV) 1950 [facility]-Infant/Child/Adol SDOH Screenings 1950 Diabetes: Dental Exam 1960 CT Colonography 12/20/1995 Colonoscopy 12/20/1995 FIT-DNA 12/20/1995 FIT 12/20/1995 FOBT 12/20/1995 Sigmoidoscopy 12/20/1995 [facility]-Colorectal Cancer Screening 12/20/1995 [facility]-Breast Cancer Screening 2000 [facility]-RSV Vaccine: 60+ Years o r (1 - Risk 50-74 years 1-dose series) 2000 [facility]-Zoster Vaccines (1 of 2) 2000 [id number] Vaccine ( season) 2024 11/07/2020, 06/20/2020, 05/23/2020 [facility]-Diabetes: Hemoglobin A1C 04/17/2025 01/16/2025 [facility]- SDOH Screenings 07/17/2025 [facility]-Adult SDOH Screenings 07/17/2025 01/16/2025 [facility]-DTaP,Tdap,and Td Vaccine s (2 - Td or Tdap) 04/07/2033 04/08/2023 [facility]-Influenza Vaccine Completed 11/22/2024 , 11/19/2017, 11/05/2016 [facility]-Pneumococcal Vaccine: 50 + Years Completed 12/04/2024 [facility]-Hepatitis C Screening Completed 01/18/2025 [facility]-Obesity Intervention Completed 025, 01/22/2025, 01/15/2025 HPV Vaccines (No Doses Required) Completed [facility]-HIB Vaccines Aged Out No longer e [...] this topic Medical Devices Implanted Type Area Mediator Device Identifier Shelf Expiration Date Model / Serial / Lot Interstim Bladder Stimulator-01/14 Implanted:01/14 (Quantity not on file) Bladder Stimulator Back Medtronic [id number] / [id number] / Stimulator Lead Medtronic-2017 Implanted:01/14 (Quantity not on file) Lead Back Medtronic [id number] / [id number] / Procedures Procedure Name Priority Date/Time Associated Diagnosis [...] Routine 01/20/2025 11 :02 AM EST URINALYSIS MICROSCOPIC FOR UA REFLEX Routine 01/20/2025 11:02 AM EST URINE AVERY PANEL Routine 01/20/2025 11:0 2 AM EST URINALYSIS WITH REFLEX MICROSCOPIC Routine 01/20/2025 11:02 AM EST URINALYSIS WITH REFLEX MICROSCOPIC AND CULTURE Routine 01/20/2025 11:02 AM EST URINE CULTURE [...] QUANT PCR Routine 01/18/2025 4:56 AM EST HEPATIC FUNCTION PANEL Routine 4:56 AM EST CBC WITH AUTO DIFFERENTIAL Routine 01/18/2025 4:56 AM EST MAGNESIUM, PLASMA Routine 01/18/2025 4:5 6 AM EST BASIC METABOLIC PANEL, PLASMA Routine 01/18/2025 4:56 AM EST PHOSPHORUS, PLASMA Routine 01/18/2025 4: 56 AM EST POCT GLUCOSE METER UNSOLICITED RESULTS Routine 01/17/2025 9:24 PM EST HC HBSAG Routine 01/17/2025 7:50 PM EST HEPATITIS B SURFACE ANTIBODY, QUANTITATIVE Routine 01/17/2025 7:50 PM EST HEPATITIS B CORE TOTAL AB (IGG AND IGM) Routine 01/17/2025 7:50 PM EST HC HEP B CORE AB TEST, IGM - HEPATITIS B CORE ANTIBODY, IGM Routine 01/17/2025 7:50 PM EST POCT GLUCOSE METER UNSOLICITED RESULTS Routine 01/17/2025 5:55 PM EST POCT GLUCOSE METER UNSOLICITED RESULTS Routine 01/17/2025 12:33 PM EST ECHO, ADULT TRANSTHORACIC COMPLETE Routine 01/17/2025 11:55 AM EST POCT GLUCOSE METER UNSOLICITED RESULTS Routine 01/17/2025 5:23 AM EST CBC WITH AUTO DIFFERENTIAL Routine 01/17/2025 2:31 AM EST MAGNESIUM, PLASMA Routine 01/17/2025 2:3 1 AM EST BASIC METABOLIC PANEL, PLASMA Routine 01/17/2025 2:31 AM EST PHOSPHORUS, PLASMA Routine 01/17/2025 2: 31 AM EST POCT GLUCOSE METER UNSOLICITED RESULTS [...] 01/16/2025 4:1 4 PM EST MRSA bacteremia FUNGAL CULTURE, ROUTINE Routine 01/16/2025 4:05 PM EST ABSCESS CULTURE AND GRAM STAIN Routine 01/16/2025 4:05 PM EST MRSA bacteremia ANAEROBIC CULTURE Routine 01/16/2025 4:0 5 PM EST MRSA bacteremia ANESTHESIA PERIPHERAL IV PLACEMENT Routine 01/16/2025 3:45 PM EST PB ANESTHESIA PLACEHOLDER Routine 01/16/2025 3:32 PM EST IN AN ELECTIVE ENDOTRACHEAL AIRWAY Routine 01/16/2025 3:32 PM EST POCT GLUCOSE METER UNSOLICITED RESULTS Routine 01/16/2025 3:19 PM EST IN EXPLORE WOUND,ABDOMEN/FLANK/BA CK 01/16/2025 3:09 PM EST [...] (AEROBIC/ANAEROBIC SET) Routine 01/16/2025 1:28 AM EST HEMOGLOBIN A1C Add-On 01/16/2025 12:36 AM EST PHOSPHORUS, PLASMA Add-On 01/16/2025 12 :36 AM EST MAGNESIUM, PLASMA Add-On 01/16/2025 12: 36 AM EST PROCALCITONIN, PLASMA Add-On 01/16/2025 12:36 AM EST C-REACTIVE PROTEIN, PLASMA Routine 01/16/2025 12:36 AM EST SEDIMENTATION RATE, AUTOMATED Routine 01/16/2025 12:36 AM EST CBC WITH AUTO DIFFERENTIAL Routine 01/16/2025 12:36 AM EST COMPREHENSIVE METABOLIC PANEL, PLASMA STAT 01/16/2025 12:36 AM EST APTT Routine 01/16/2025 12:36 AM EST PROTHROMBIN TIME(PT) / INR Routine 01/16/2025 12:36 AM EST TYPE AND SCREEN Routine 01/16/2025 12:36 AM EST XR OUTSIDE IMAGES 01/14/2025 CT NEURO OUTSIDE IMAGES 01/13/2025 CT MSK OUTSIDE IMAGES 01/10/2025 CT THORACIC OUTSIDE IMAGES 01/10/2025 CT NEURO OUTSIDE IMAGES 01/10/2025 XR OUTSIDE IMAGES 01/10/2025 CT CERVICAL SPINE WO IV CONTRAST Routine 01/10/2025 12:00 AM EST Examination from Last 3 Months Results * (ABNORMAL) POCT glucose meter (01/23/2025 8:18 AM EST) Only the most recent of32 resultswithin the time period is included. POCT Glucose 147(H) 74 - 99 mg/dL 01/23/2025 8:20 AM EST [facility] Comment:Accuracy of a glucos e result [...] for testing. Comment 01/23/2025 8:20 AM EST [facility] Physicist Solid State ID Benji Gilbert 01/23/2025 8:20 AM EST [facility] Device ID [id number] 01/23/2025 8:20 AM EST [facility] Specimen Type POC Capillary 01/23/2025 8:20 AM EST [facility] Blood Capillary blood specimen / Unknown 01/23/2025 8:18 AM EST 01/23/2025 8:20 AM EST us Merlin Massey MD LAB POINT OF CARE TE ST DOCKED DEVICE UNSOLICITED RESULTS Final Result [facility] [address] [place] [address] * Vancomycin, Peak, Plasma Please draw ~2 hours after 0300 dose on 01/22 finishes infusing. Consider obtaining level via peripheral stick. If peripheral stick is not feasible, please ensure that line is flushed well prior to drawing level. Thanks! (01/22/2025 6:32 AM EST) Only the most recent of2 resultswithin the time period is included. Vancomycin, Peak, Plasma 29.1 20.0 - 40.0 ug/mL 01/22/2025 7:07 AM EST [facility] Blood Venous blood specimen / Unknown Venipuncture / Unknown 01/22/2025 6:32 AM EST 01/22/2025 6:37 AM EST Narrative [facility] - 01/22/2025 7:07 AM EST Therapeutic Peak level: 20-40ug/mL Supra-therapeutic Peak level: >40 ug/mL us Cleve Deleon MD LAB BLOOD ORDERABLES Final Re sult [facility] [address] [place] [address] * Vancomycin, Trough, Plasma Please draw ~30 minutes prior to dose due at 0300 on 01/22. ??Please do NOT hold dose awaiting level to return. Consider obtaining level via peripheral stick. If peripheralstick is not feasible, please ensure that line/p... (01/22/2025 3:04 AM EST) Only the most recent of2 resultswithin the time period is included. Vancomycin, Trough, Plasma 13.7 10.0 - 20.0 ug/mL 01/22/2025 3:45 AM EST [facility] Blood Venous blood specimen / Unknown Venipuncture / Unknown 01/22/2025 3:04 AM EST 01/22/2025 3:15 AM EST Narrative [facility] - 01/22/2025 3:45 AM EST Therapeutic Trough level: 10-20ug/mL Supra-therapeutic Trough level: >20 ug/mL us Cleve Deleon MD LAB BLOOD ORDERABLES Final Re sult [facility] [address] [place] [address] * XR Chest 1 View (01/20/2025 5:57 [...] Ha RN Authorized by: Cleve Deleon MD [place] Protocol: Verbal consent obtained?: Yes Written consent [...] preference. Patient position: Supine Catheter Lot #: [id number] Catheter applications chemist: [employer] Catheter placed: Single lumen Catheter size: 4 [...] IV THERAPY ORDERABLES Final R esult * SEND SARA MESSAGE (01/20/2025 11:02 AM EST) Urine Urine specimen obtained by clean catch procedure / Unknown Non-blood Collection / Unknown 01/20/2025 11:02 AM EST 01/20/2025 11:06 AM EST us Cleve Deleon MD LAB URINE ORDERABLES Final Re sult Performing Organization Address [facility] [place] [address] * Urine Avery Panel (01/20/2025 11:02 AM EST) Extra Sent for Culture 01/20/2025 1:02 PM EST [facility] Urine Urine specimen obtained by clean catch procedure / Unknown Non-blood Collection / Unknown 01/20/2025 11:02 AM EST 01/20/2025 11:06 AM EST us Cleve Deleon MD LAB URINE ORDERABLES Final Re sult Performing Organization Address [facility] de Phone Number [facility] [address] [place] [address] * Urinalysis Microscopic Examination (01/20/2025 11:02 AM EST) Urine Urine specimen obtained by clean catch procedure / Unknown Non-blood Collection / Unknown 01/20/2025 11:02 AM EST 01/20/2025 11:06 AM EST Result Kristyn Deleon MD LAB URINE ORDERABLES Final Re sult Performing Organization Address City/[facility] Co de Phone Number [facility] [address] [place] [address] * (ABNORMAL) Urinalysis with reflex microscopic (Culture NOT Included) (01/20/2025 11:02 AM EST) Only the most recent of2 resultswithin the time period is included. Color, Urine Yellow LAB URINALYSIS - AUTOMATED METHOD 01/20/2025 11:24 AM [facility] Clarity, Urine Cloudy LAB URINALYSIS - AUTOMATED METHOD 01/20/2025 11:24 AM [facility] Spec [place], Urine 1.017 1.005 - 1.030 LAB URINALYSIS - AUTOMATED METHOD 01/20/2025 11:24 AM [facility] pH, Urine 6.5 5.0 - 8.0 LAB URINALYSIS - AUTOMATED METHOD 01/20/2025 11:24 AM [facility] Protein, Urine Trace(A) Negative mg/dL LAB URINALYSIS - AUTOMATED METHOD 01/20/2025 11:24 AM [facility] Glucose, Urine >=1000(A) Negative mg/dL LAB URINALYSIS - AUTOMATED METHOD 01/20/2025 11:24 AM [facility] Ketones, Urine Negative Negative mg/dL LAB URINALYSIS - AUTOMATED METHOD 01/20/2025 11:24 AM [facility] Blood, Urine Trace(A) Negative LAB URINALYSIS - AUTOMATED METHOD 01/20/2025 11:24 AM [facility] Bilirubin, Urine Negative Negative LAB URINALYSIS - AUTOMATED METHOD 01/20/2025 11:24 AM [facility] Urobilinogen, Urine 0.2 0.2 to 1.0 mg/dL LAB URINALYSIS - AUTOMATED METHOD 01/20/2025 11:24 AM [facility] Leukocytes, Urine Small(A) Negative LAB URINALYSIS - AUTOMATED METHOD 01/20/2025 11:24 AM [facility] Nitrite, Urine Negative Negative LAB URINALYSIS - AUTOMATED METHOD 01/20/2025 11:24 AM [facility] RBC, Urine 2 0 to 3 /HPF LAB URINALYSIS - AUTOMATED METHOD 01/20/2025 11:24 AM [facility] WBC, Urine >50(A) 0 to 5 /HPF LAB URINALYSIS - AUTOMATED METHOD 01/20/2025 11:24 AM EST [facility] Squamous Epithelial Cells 0 - 2 0 to 5 /HPF LAB URINALYSIS - AUTOMATED METHOD 01/20/2025 11:24 AM EST [facility] Hyaline Casts 3 - 5 0 to 5 /LPF LAB URINALYSIS - AUTOMATED METHOD 01/20/2025 11:24 AM EST [facility] Bacteria, Urine Negative Negative LAB URINALYSIS - AUTOMATED METHOD 01/20/2025 11:24 AM EST [facility] Yeast (Budding and/or Pseudohyphae) Present(A) Absent LAB URINALYSIS - AUTOMATED METHOD 01/20/2025 11:24 AM EST [facility] Urine Urine specimen obtained by clean catch procedure / Unknown Non-blood Collection / Unknown 01/20/2025 11:02 AM EST 01/20/2025 11:06 AM EST us Cleve Deleon MD LAB URINE ORDERABLES Final Re sult Performing Organization Address [facility]/ZIP Co de Phone Number [facility] [address] [place] [address] * (ABNORMAL) Urine Culture (01/20/2025 11:02 AM EST) Culture 10,000 - 100,000 CFU/mL Trista albicans(A) 01/22/2025 7:50 AM EST [facility] Comment:This isolate has bee n identified using the FDA Approved [employer]ent[employer] [place] System Urine Urine specimen obtained by clean catch procedure / Unknown Non-blood Collection / Unknown 01/20/2025 11:02 AM EST 01/20/2025 11:06 AM EST us Cleve Deleon MD LAB MICROBIOLOGY - GENERAL OR DERABLES Final Result Performing Organization Address [facility]/ZIP Co de Phone Number [facility] [address] [place] [address] * (ABNORMAL) Creatine Kinase (CK), Total (01/20/2025 5:02 AM EST) Creatine Kinase, Plasma 290(H) 37 - 168 U/L 01/20/2025 5:37 AM EST [facility] Blood Venous blood specimen / Unknown Venipuncture / Unknown 01/20/2025 5:02 AM EST 01/20/2025 5:07 AM EST us Cleve Deleon MD LAB BLOOD ORDERABLES Final Re sult [facility] [address] [place] [address] * (ABNORMAL) Basic metabolic panel (01/20/2025 5:02 AM EST) Only the most recent of3 resultswithin the time period is included. Glucose, Plasma 151(H) 74 - 99 mg/dL 01/20/2025 5:37 AM EST [facility] BUN, Plasma 12 8 - 23 mg/dL 01/20/2025 5:37 AM EST [facility] Creatinine, Plasma 0.79 0.60 - 1.10 mg/dL 01/20/2025 5:37 AM EST [facility] BUN/Creatinine Ratio 15 01/20/2025 5:37 AM EST [facility] Sodium, Plasma 139 136 - 145 mmol/L 01/20/2025 5:37 AM EST [facility] Potassium, Plasma 3.6 3.6 - 4.9 mmol/L 01/20/2025 5:37 AM EST [facility] Chloride, Plasma 102 97 - 107 mmol/L 01/20/2025 5:37 AM EST [facility] CO2, Plasma 28 22 - 29 mmol/L 01/20/2025 5:37 AM EST [facility] Anion Gap 9 6 - 16 mmol/L 01/20/2025 5:37 AM EST [facility] Total Calcium, Plasma 8.2(L) 8.9 - 10.2 mg/dL 01/20/2025 5:37 AM EST [facility] eGFRcr 78.6 mL/min/1.7 3m*2 01/20/2025 5:37 AM EST [facility] Comment:Reported eGFRcr in m L/min/1.73m2 is based the CKD-EPI 2020 equation that does not use a race coefficient. Blood Venous blood specimen / Unknown Venipuncture / Unknown 01/20/2025 5:02 AM EST 01/20/2025 5:07 AM EST us Cleve Deleon MD LAB BLOOD ORDERABLES Final Re sult Performing Organization Address [facility] Co de Phone Number [facility] [address] [place] [address] * Phosphorus (01/19/2025 6:05 AM EST) Only the most recent of4 resultswithin the time period is included. Phosphorus, Plasma 3.0 2.5 - 4.5 mg/dL 01/19/2025 6:40 AM EST [facility] Blood Venous blood specimen / Unknown Venipuncture / Unknown 01/19/2025 6:05 AM EST 01/19/2025 6:15 AM EST us Cleve Deleon MD LAB BLOOD ORDERABLES Final Re sult Performing Organization Address [facility] [place] [address] * Magnesium (01/19/2025 6:05 AM EST) Only the most recent of4 resultswithin the time period is included. Magnesium, Plasma 2.1 1.9 - 2.4 mg/dL 01/19/2025 6:40 AM EST [facility] Blood Venous blood specimen / Unknown Venipuncture / Unknown 01/19/2025 6:05 AM EST 01/19/2025 6:15 AM EST us Cleve Deleon MD LAB BLOOD ORDERABLES Final Re sult Performing Organization Address [facility] [place] [address] * Blood Culture (Aerobic/Anaerobet Set) (01/18/2025 1:23 PM EST) Only the most recent of2 resultswithin the time period is included. Culture No growth at day 5 SADA 01/23/2025 2:02 PM EST [facility] Blood Venous blood specimen / Unknown Venipuncture / Unknown 01/18/2025 1:23 PM EST 01/18/2025 1:34 PM EST us Cleve Deleon MD LAB MICROBIOLOGY - GENERAL OR DERABLES Final Result Performing Organization Address [facility]/ZIP Co de Phone Number [facility] [address] [place] [address] * PERIPHERAL IV (SMARTFORM LINK) (01/18/2025 12:54 PM EST) Narrative Ethel Steward RN - 01/18/2025 12:54 PM EST Ethel Steward RN 01/18/2025 12:54 PM Insert peripheral IV Performed by: Ethel Steward RN Authorized by: Cleve Deleno MD Hand hygiene: Hand hygiene performed prior [...] IV THERAPY ORDERABLES Final R esult * Hepatitis C Antibody - ED W/Reflex to HCV Quant PCR (01/18/2025 4:56 AM EST) Hepatitis C Antibody Negative Negative 01/18/2025 5:53 AM EST [facility] Blood Blood sample taken from central line / Unknown Venipuncture / Unknown 01/18/2025 4:56 AM EST 01/18/2025 5:11 AM EST us Cleve Deleon MD LAB BLOOD ORDERABLES Final Re sult Performing Organization Address City/[facility]/ZIP Co de Phone Number [facility] [address] [place] [address] * (ABNORMAL) CBC and Differential (01/18/2025 4:56 AM EST) Only the most recent of3 resultswithin the time period is included. WBC Count 10.71(H) 3.70 - 10.30 10*3/uL LAB HEMATOLOGY METHOD 01/18/2025 5:22 AM EST [facility] RBC Count 2.79(L) 3.90 - 5.20 10*6/uL LAB HEMATOLOGY METHOD 01/18/2025 5:22 AM EST [facility] HGB 9.0(L) 11.2 - 15.7 g/dL LAB HEMATOLOGY METHOD 01/18/2025 5:22 AM EST [facility] HCT 27.4(L) 34.0 - 45.0 % LAB HEMATOLOGY METHOD 01/18/2025 5:22 AM EST [facility] Platelet Count 400(H) 155 - 369 10*3/uL LAB HEMATOLOGY METHOD 01/18/2025 5:22 AM EST [facility] MCV 98 79 - 98 fL LAB HEMATOLOGY METHOD 01/18/2025 5:22 AM EST [facility] [facility] MCH 32.3(H) 26.0 - 32.0 pg LAB HEMATOLOGY METHOD 01/18/2025 5:22 AM EST [facility] MCHC 32.8 30.7 - 35.5 g/dL LAB HEMATOLOGY METHOD 01/18/2025 5:22 AM EST [facility] RDW 14.3 11.5 - 14.5 % LAB HEMATOLOGY METHOD 01/18/2025 5:22 AM EST [facility] MPV 9.0 8.8 - 12.5 fL LAB HEMATOLOGY METHOD 01/18/2025 5:22 AM [facility] nRBC 0.0 <=0.0 per 100 WBCs LAB HEMATOLOGY METHOD 01/18/2025 5:22 AM EST [facility] Differential Type Automated LAB HEMATOLOGY METHOD 01/18/2025 5:22 AM EST [facility] Neutrophils % 79 % LAB HEMATOLOGY METHOD 01/18/2025 5:22 AM EST [facility] Lymphocytes % 9 % LAB HEMATOLOGY METHOD 01/18/2025 5:22 AM EST [facility] Monocytes % 9 % LAB HEMATOLOGY METHOD 01/18/2025 5:22 AM EST [facility] Eosinophils % 2 % LAB HEMATOLOGY METHOD 01/18/2025 5:22 AM EST [facility] Basophils % 0 % LAB HEMATOLOGY METHOD 01/18/2025 5:22 AM EST [facility] Immature Granulocytes % 1 % LAB HEMATOLOGY METHOD 01/18/2025 5:22 AM EST [facility] Neutrophils Absolute 8.43(H) 1.60 - 6.10 10*3/uL LAB HEMATOLOGY METHOD 01/18/2025 5:22 AM EST [facility] Lymphocytes Absolute 0.99(L) 1.20 - 3.90 10*3/uL LAB HEMATOLOGY METHOD 01/18/2025 5:22 AM EST [facility] Monocytes Absolute 0.97(H) 0.30 - 0.90 10*3/uL LAB HEMATOLOGY METHOD 01/18/2025 5:22 AM EST [facility] Eosinophils Absolute 0.21 0.00 - 0.50 10*3/uL LAB HEMATOLOGY METHOD 01/18/2025 5:22 AM EST [facility] Basophils Absolute 0.03 0.00 - 0.10 10*3/uL LAB HEMATOLOGY METHOD 01/18/2025 5:22 AM EST [facility] Immature Granulocytes Absolute 0.08(H) 0.00 - 0.06 10*3/uL LAB HEMATOLOGY METHOD 01/18/2025 5:22 AM EST [facility] Blood Blood sample taken from central line / Unknown Venipuncture / Unknown 01/18/2025 4:56 AM EST 01/18/2025 5:12 AM EST Narrative [facility] - 01/18/2025 5:22 AM EST Therapeutic decision making should be based on absolute values, rather than percentages. us Cleve Deleon MD LAB BLOOD ORDERABLES Final Re sult [facility] [address] [place] [address] * (ABNORMAL) Hepatic Function Panel (01/18/2025 4:56 AM EST) Direct Bilirubin, Plasma <0.2 <=0.3 mg/dL 01/18/2025 5:42 AM EST [facility] Alkaline Phosphatase, Plasma 263(H) 46 - 142 U/L 01/18/2025 5:42 AM EST [facility] Total Bilirubin, Plasma 0.3 0.2 - 1.1 mg/dL 01/18/2025 5:42 AM EST [facility] Albumin, Plasma 3.0(L) 3.5 - 5.2 g/dL 01/18/2025 5:42 AM EST [facility] Total Protein 6.1(L) 6.3 - 7.9 g/dL 01/18/2025 5:42 AM EST [facility] ALT, Plasma 53(H) 10 - 35 U/L 01/18/2025 5:42 AM EST [facility] AST, Plasma 70(H) 10 - 35 U/L 01/18/2025 5:42 AM EST [facility] Blood Blood sample taken from central line / Unknown Venipuncture / Unknown 01/18/2025 4:56 AM EST 01/18/2025 5:12 AM EST Cleve Deleon MD LAB BLOOD ORDERABLES Final Re sult Performing Organization Address City/[facility]/ZIP Co de Phone Number [facility] [address] [place] [address] * Hepatitis B Surface Antibody, Quantitative (01/17/2025 7:50 PM EST) Hepatitis B Surface Antibody, Quantitative <8.00 NonReactiv e: <8, Grayzone: 8 - <12, Reactive: >= 12 mIU/mL 01/17/2025 10:06 PM EST [facility] Comment: Nonreactive. Individual is considered not immune to HBV infection. Blood Arterial blood specimen / Unknown (Central Line) Existing Catheter / Unknown 01/17/2025 7:50 PM EST 01/17/2025 7:54 PM EST Cleve Deleon MD LAB BLOOD ORDERABLES Final Re sult Performing Organization Address City/[facility]/ZIP Co de Phone Number [facility] [address] [place] [address] * Hepatitis B Core Antibody IgM (01/17/2025 7:50 PM EST) Hepatitis B Core Antibody IgM Negative Negative 01/17/2025 10:06 PM EST [facility] Blood Arterial blood specimen / Unknown (Central Line) Existing Catheter / Unknown 01/17/2025 7:50 PM EST 01/17/2025 7:54 PM EST us Cleve Deleon MD LAB BLOOD ORDERABLES Final Re sult [facility] [address] [place] [address] * Hepatitis B Core Total Antibody IgG,IgM (01/17/2025 7:50 PM EST) Hepatitis B Core Total Antibody IgG,IgM Negative Negative 01/17/2025 10:[address] [facility] Blood Arterial blood specimen / Unknown (Central Line) Existing Catheter / Unknown 01/17/2025 7:50 PM EST 01/17/2025 7:54 PM EST us Cleve Deleon MD LAB BLOOD ORDERABLES Final Re sult Performing Organization Address City/[facility]/ZIP Co de Phone Number [facility] [address] [place] [address] * Hepatitis B Surface Antigen (01/17/2025 7:50 PM EST) Hepatitis B Surf Antigen Negative Negative 01/17/2025 10:06 PM EST [facility] Blood Arterial blood specimen / Unknown (Central Line) Existing Catheter / Unknown 01/17/2025 7:50 PM EST 01/17/2025 7:54 PM EST us Cleve Deleon MD LAB BLOOD ORDERABLES Final Re sult Performing Organization Address City/[facility]/ZIP Co de Phone Number [facility] [address] [place] [address] * ECHO, ADULT TRANSTHORACIC COMPLETE (01/17/2025 11:55 AM EST) [facility] Signature BSA 2.07 m2 PINEDA ISCV LVIDd 45 [...] is no recent study available for direct [id number] comparison. Left Ventricle The left ventricle is [...] is no recent study available for direct [id number] comparison. us Cleve Deleon MD CV ECHO PROCEDURES Final Resu lt * CT Lumbar Spine w IV Contrast [...] on 01/16/2025 8:04 PM us Naina Dubois APRN IMG US PROCEDURES Final Result * FL Less than 1 Hour Intraoperative [...] Culture Heavy Growth 01/19/2025 5:17 PM EST [facility] Culture 4+ Biotype 1 Methicillin-Resis tant Staphylococcus aureus(AA) 01/19/2025 5:17 PM EST [facility] Comment: For susceptibility results refer to: - [id number] Edited result: Previously reported as Staphylococcus aureus on 01/17/2025 at 1327 EST. Staphylococcus aureus has been updated to reportable. Culture 2+ Biotype 2 Methicillin-Resis tant Staphylococcus aureus(AA) 01/19/2025 5:17 PM EST [facility] Comment: For susceptibility results refer to: - [id number] Edited result: Previously reported as Staphylococcus aureus on 01/17/2025 at 1327 EST. Staphylococcus aureus has been updated to reportable. Foreign Body Lower back structure / Unknown 01/16/2025 4:14 PM EST 01/16/2025 5:10 PM EST Comment:Pre-op diagnosis: MRSA bacteremia [R78.81, B95.62] Fransisco Gaston MD LAB MICROBIOLOGY - G ENERAL ORDERABLES Final Result Performing Organization Address City/[facility]/ZIP Co de Phone Number [facility] [address] [place] [address] * Anaerobic Culture (01/16/2025 4:14 PM EST) Only the most recent of2 resultswithin the time period is included. Culture No anaerobes isolated 01/20/2025 2:[address] [facility] Foreign Body Lower back structure / Unknown 01/16/2025 4:14 PM EST 01/16/2025 5:10 PM EST Comment:Pre-op diagnosis: MRSA bacteremia [R78.81, B95.62] Fransisco Gaston MD LAB MICROBIOLOGY - G ENERAL ORDERABLES Final Result Performing Organization Address City/[facility] Co de Phone Number [facility] [address] [place] [address] * (ABNORMAL) Abscess Culture and Gram Stain (01/16/2025 4:05 PM EST) Culture Light Growth 01/19/2025 5:17 PM EST [facility] Culture 1+ Biotype 1 Methicillin-Resista nt Staphylococcus aureus(AA) 01/19/2025 5:17 PM EST [facility] Comment: The organism value for this result has been updated. These results have been appended to the previously preliminary verified report. Edited result: Previously reported as Staphylococcus aureus on 01/18/2025 at 1547 EST. Staphylococcus aureus has been updated to reportable. Culture 1+ Biotype 2 Methicillin-Resista nt Staphylococcus aureus(AA) 01/19/2025 5:17 PM EST [facility] Comment: The organism value for this result has been updated. These results have been appended to the previously preliminary verified report. Edited result: Previously reported as Staphylococcus aureus on 01/18/2025 at 1547 EST. Staphylococcus aureus has been updated to reportable. Gram Stain Result Rare Gram positive cocci in pairs and chains(A) 01/19/2025 5:17 PM EST [facility] Gram Stain Result Numerous Polymorphonuclear leukocytes(A) 01/19/2025 5:17 PM EST [facility] Abscess Lower back structure [...] ENERAL ORDERABLES Final Result Performing Organization Address [facility]/ZIP Co de Phone Number [facility] [address] [place] [address] * Fungal Culture, Routine (01/16/2025 4:05 PM EST) Culture No Fungal Growth at 1 Week 01/24/2025 6:48 AM EST [facility] Abscess Topography unknown / Unknown 01/16/2025 4:05 PM EST 01/16/2025 5:10 PM EST us Cleve Deleon MD LAB MICROBIOLOGY - GENERAL OR DERABLES Final Result Performing Organization Address [facility] Co de Phone Number [facility] [address] [place] [address] * Peripheral IV (01/16/2025 3:45 PM EST) Narrative Nani Nixon CRNA, DNP - 01/16/2025 3:45 PM EST Nani Nixon CRNA, DNP 01/16/2025 4:59 PM Peripheral IV Date/Time: 01/16/2025 3:45 PM Placement Needle size: 18 G Location: hand Local anesthetic: none Site prep: alcohol Technique: anatomical landmarks Attempts: 1 us Diane Wong MD ANESTHESIA ORDERABLES Final R esult * IN AN ELECTIVE ENDOTRACHEAL AIRWAY, PB ANESTHESIA PLACEHOLDER (01/16/2025 3:32 PM EST) Narrative Nani Nixon CRNA, DNP - 01/16/2025 3:32 PM EST Nani Nixon CRNA, DNP 01/16/2025 3:54 PM Airway Date/Time: 01/16/2025 3:32 PM Reason: elective Airway not difficult General Information and Staff Patient location during procedure: OR PLATING DEPARTMENT HELPER: Nixon, Nani E, PLATING DEPARTMENT HELPER, DNP Performed: PLATING DEPARTMENT HELPER Patient Condition Indications for airway management: anesthesia [...] MD ANESTHESIA ORDERABLES Final R esult * (ABNORMAL) Procalcitonin (01/16/2025 12:36 AM EST) Procalcitonin, Plasma 0.09(H) <0.09 ng/mL 01/16/2025 2:12 AM EST [facility] Blood Venous blood specimen / Unknown Venipuncture / Unknown 01/16/2025 12:36 AM EST 01/16/2025 12:41 AM EST Narrative [facility] - 01/16/2025 2:12 AM [...] predict 28 day mortality risk. Please consult [email or web address]-[email or web address]-[email or web address] for more information. Test performed at [facility]. us Naina Dubois PUMP SERVICER SUPERVISOR LAB BLOOD ORDERABLES Fi nal Result [facility] [address] [place] [address] * (ABNORMAL) APTT (01/16/2025 12:36 AM EST) aPTT 36(H) 25 - 35 sec LAB COAGULATION METHOD 01/16/2025 1:15 AM EST [facility] Blood Venous blood specimen / Unknown Venipuncture / Unknown 01/16/2025 12:36 AM EST 01/16/2025 12:41 AM EST us Fransisco Gaston MD LAB BLOOD ORDERABLES Final Result [facility] [address] [place] [address] * (ABNORMAL) Sedimentation Rate, Automated (01/16/2025 12:36 AM EST) Sedimentation Rate 96(H) <30 mm/hr 2024 12:58 AM EST [facility] Blood Venous blood specimen / Unknown Venipuncture / Unknown 01/16/2025 12:36 AM EST 01/16/2025 12:41 AM EST us Fransisco Gaston MD LAB BLOOD ORDERABLES Final Result [facility] [address] [place] [address] * (ABNORMAL) Prothrombin Time/INR (01/16/2025 12:36 AM EST) Prothrombin Time 15.3(H) 12.0 - 14.3 sec LAB COAGULATION METHOD 01/16/2025 1:15 AM EST [facility] INR 1.2(H) 0.9 - 1.1 LAB COAGULATION METHOD 01/16/2025 1:15 AM EST [facility] Blood Venous blood specimen / Unknown Venipuncture / Unknown 01/16/2025 12:36 AM EST 01/16/2025 12:41 AM EST Narrative [facility] - 01/16/2025 1:15 AM EST OPTIMAL INR RANGES FOR PATIENT ON ORAL ANTICOAGULANT THERAPY Prevention of venous thromboembolism INR 2.0 to 3.0 In patients with heart disease: Atrial fibrillation INR 2.0 to 3.0 Valvular heart disease INR 2.0 to 3.0 Tissue heart valves INR 2.0 to 3.0 Mechanical prosthetic valves INR 2.5 to 3.5 Prevention of recurrent PA INR 2.5 to 3.5 us Fransisco Gaston MD LAB BLOOD ORDERABLES Final Result Performing Organization Address City/[facility]/ZIP Co de Phone Number [facility] [address] [place] [address] * Type and Screen (01/16/2025 12:36 AM [...] TEST ORDERABLES Final Result Performing Organization Address [facility] Phone Number BLOOD BANK [address] [place] [address] * (ABNORMAL) C-reactive protein (01/16/2025 12:36 AM EST) CRP, Plasma 108.5(H) <=8.0 mg/L 01/16/2025 1:14 AM EST [facility] Blood Venous blood specimen / Unknown Venipuncture / Unknown 01/16/2025 12:36 AM EST 01/16/2025 12:41 AM EST Narrative [facility] - 01/16/2025 1:14 AM EST This CRP test is appropriate for assessment of infection, systemic inflammation and/or tissue injury. To assess cardiovascular disease risk order high sensitivity CRP (CRPH). us Fransisco Gaston MD LAB BLOOD ORDERABLES Final Result [facility] [address] [place] [address] * (ABNORMAL) Hemoglobin A1c (01/16/2025 12:36 AM EST) Hemoglobin A1c 7.8(H) <5.7 % 01/16/2025 10:21 AM EST [facility] Blood Venous blood specimen / Unknown Venipuncture / Unknown 01/16/2025 12:36 AM EST 01/16/2025 12:41 AM EST Narrative [facility] - 01/16/2025 10:21 AM EST HA1C Interpretive Data: Diagnosis of Diabetes: Diabetic > or = 6.5% Pre-diabetic 5.7 to 6.4% Non-diabetic < or = 5.6% Glycemic Targets for Type I and Type II Diabetics: Non- Adults <7.0% Adults <6.0% Children and Adolescents <7.5% Source: [place] [employer]. Standards of medical care in diabetes,2017. Diabetes Care.2017:40 (suppl 1):S1-S135. Naina Dubois APRN LAB BLOOD ORDERABLES Fi nal Result Performing Organization Address [facility]/ZIP Co de Phone Number [facility] [address] [place] [address] * (ABNORMAL) Comprehensive Metabolic Panel, Plasma (01/16/2025 12:36 AM EST) Glucose, Plasma 141(H) 74 - 99 mg/dL 01/16/2025 1:14 AM EST [facility] BUN, Plasma 17 8 - 23 mg/dL 01/16/2025 1:14 AM EST [facility] Creatinine, Plasma 0.97 0.60 - 1.10 mg/dL 01/16/2025 1:14 AM EST [facility] BUN/Creatinine Ratio 18 01/16/2025 1:14 AM EST [facility] Sodium, Plasma 137 136 - 145 mmol/L 01/16/2025 1:14 AM EST [facility] Potassium, Plasma 4.1 3.6 - 4.9 mmol/L 01/16/2025 1:14 AM EST [facility] Chloride, Plasma 103 97 - 107 mmol/L 01/16/2025 1:14 AM EST [facility] CO2, Plasma 22 22 - 29 mmol/L 01/16/2025 1:14 AM EST [facility] Anion Gap 12 6 - 16 mmol/L 01/16/2025 1:14 AM EST [facility] Total Calcium, Plasma 9.0 8.9 - 10.2 mg/dL 01/16/2025 1:14 AM EST [facility] Total Protein 6.1(L) 6.3 - 7.9 g/dL 01/16/2025 1:14 AM EST [facility] Albumin, Plasma 2.9(L) 3.5 - 5.2 g/dL 01/16/2025 1:14 AM EST [facility] AST, Plasma 77(H) 10 - 35 U/L 01/16/2025 1:14 AM EST [facility] ALT, Plasma 54(H) 10 - 35 U/L 01/16/2025 1:14 AM EST [facility] Alkaline Phosphatase, Plasma 271(H) 46 - 142 U/L 01/16/2025 1:14 AM EST [facility] Total Bilirubin, Plasma 0.4 0.2 - 1.1 mg/dL 01/16/2025 1:14 AM EST [facility] eGFRcr 61.4 mL/min/1.7 3m*2 01/16/2025 1:14 AM EST [facility] Comment:Reported eGFRcr in m L/min/1.73m2 is based the CKD-EPI 2020 equation that does not use a race coefficient. Blood Venous blood specimen / Unknown Venipuncture / Unknown 01/16/2025 12:36 AM EST 01/16/2025 12:41 AM EST us Fransisco Gaston MD LAB BLOOD ORDERABLES Final Result [facility] [address] [place] [address] * XR OUTSIDE IMAGES (01/14/2025) Only the most recent of2 resultswithin the time period is included. Anatomical Region Laterality Modality Radiographic Adriana ging 01/14/2025 us External Provider IMG XR PROCEDURES Final Result * CT NEURO OUTSIDE IMAGES (01/13/2025) Only the most recent of2 resultswithin the time period is included. Anatomical Region Laterality Modality Computed Tomogra phy 01/13/2025 us External Provider IMG CT PROCEDURES Final Result * CT THORACIC OUTSIDE IMAGES (01/10/2025) Anatomical Region Laterality Modality Computed Tomogra phy 01/10/2025 us External Provider IMG CT PROCEDURES Final Result * CT MSK OUTSIDE IMAGES (01/10/2025) Anatomical Region Laterality Modality Computed Tomogra phy 01/10/2025 us External Provider IMG CT PROCEDURES Final Result * CT Cervical Spine wo IV Contrast (01/10/2025 12:00 AM EST) Narrative IMAGING - 01/16/2025 4:34 PM EST This study was performed at an outside facility and has been loaded into the PACS system for reference only. This order has been auto-finalized and does not contain a result. us Imaging Upload Radiant IMG CT PROCEDURES Final R esult IMAGING from Last 3 Months Additional Health Concerns Infection Onset Date Last Indicated MRSA 01/16/2025 01/16/2025 [place] [address] ANTHEM Advance Directives * Full Code (Latest Code Status on File) Date Activated Date Inactivated Comments 01/16/2025 1:07 AM 01/23/2025 3:13 PM Question Answer Comments I have reviewed the capacity from the link above and, if needed, have updated to appropriate status: Yes Care Teams Mammography Technician Relationship Specialty Start Date End Date Chase Gunn MD [address] [address] PCP - General 06/21/20
--- OUTSIDE RECORDS SUMMARY | 2025-01-26 09:08 | XMS_ITS | Encounter Summary ---
Author Organization [facility] Address [address] [place] [address] Care Team Providers Care Wire Steward Name Role Phone Chase Gunn MD Primary Care Provider + [phone] Encounter Details Date Type Department Care Team (Latest Contact Info) Description 01/20/2025 Travel Social History Tobacco Use Types Packs/Day Years [...] any time in the past 12 m [facility], were you homeless or living in a jail (including now)? No 01/16/2025 [facility] Utilities Answer Date Recorded In the [...] Answer Date of Assessment Author Precautions Fall risk;[facility] ([place], [place]) surveillance 01/20/2025 10:00 PM Christina Lovell RN * Calculated C-SSRS Risk Score (Lifetime/Recent) Answer Date of Assessment Author No Risk Indicated 01/20/2025 8:00 AM David Alfaro RN * Question Answer Date of Assessment Author 1. Wish to be (Past 1 Month) No 025 8:00 AM David Alfaro RN 2. Non-Specific Active Suici christie Thoughts (Past 1 Month) No 01/20/2025 8:00 AM David Alfaro RN 6. Suicidal Behavior (Lifetime) No 8:00 AM David Alfaro RN documented as of this encounter Mental Status * Question Answer Entry Date Author Precautions Fall risk;[facility] ([place], [place]) surveillance 01/20/2025 10:00 PM Christina Lovell RN documented in this encounter Plan of Treatment Upcoming Encounters Date Type Department Care Team (Late st Contact Info) Description 03/27/2025 8:30 AM EST Consult [place] [facility] [address] [place] [address] Fransisco Farley MD [address] [place] [address] documented as of this encounter Visit Diagnoses Not on filedocumented in this encounter Additional Health Concerns Infection Onset Date Last Indicated Resolved Time MRSA 01/16/2025 01/16/2025 Assessment Noted Time A Body Mass Index follow-up plan has been documented for the patient 01/23/2025 12:18 PM EST documented as of this encounter Care Teams Wire Steward Relationship Specialty Start Date End Date Chase Gunn MD [address] [facility] [address] [place] [address] PCP - General 06/21/20 documented as of this encounter
--- OUTSIDE RECORDS SUMMARY | 2025-01-26 09:08 | XMS_ITS | Encounter Summary ---
Author Organization Healthcare Address [address] [id number] Care Team Providers Care Mechanical Adjuster Name Role Phone Chase Gunn MD Primary Care Provider + [phone] Encounter Details Date Type Department Care Team (Late st Contact Info) Description 01/22/2025 Clinical Support [facility] [address] [place] [address] Madelaine Guevara, PharmD [address] [place], [place] [id number] Social History Tobacco Use Types Packs/Day Years [...] any time in the past 12 m [facility], were you homeless or living in a penitentiary (including now)? No 01/16/2025 [facility] Utilities Answer Date Recorded In the [...] Answer Date of Assessment Author Precautions Fall risk;[facility] gautam surveillance 01/22/2025 7:48 AM Felisa Sidhu RN * Calculated C-SSRS Risk Score (Lifetime/Recent) Answer Date of Assessment Author No Risk Indicated 01/22/2025 7:48 AM Felisa Sidhu RN * Question Answer Date of Assessment Author 1. Wish to be (Past 1 Month) No 025 7:48 AM Felisa Sidhu RN 2. Non-Specific Active Suici christie Thoughts (Past 1 Month) No 01/22/2025 7:48 AM Kimmy Sidhu RN 6. Suicidal Behavior (Lifetime) No 7:48 AM Felisa Sidhu RN documented as of this encounter Mental Status * Question Answer Entry Date Author Precautions Fall risk;[facility] surveillance 01/22/2025 7:48 AM EST Felisa Whitlock RN documented in this encounter Plan of Treatment Upcoming Encounters Date Type Department Care Team (Late st Contact Info) Description 03/27/2025 8:30 AM EST Consult [place] [facility] [address] [place] [address] Fransisco Farley MD [address] [place] [address] documented as of this encounter Visit Diagnoses Not on filedocumented in this encounter Additional Health Concerns Infection Onset Date Last Indicated Resolved Time MRSA 01/16/2025 01/16/2025 Assessment Noted Time A Body Mass Index follow-up plan has been documented for the patient 01/22/2025 8:36 AM EST documented as of this encounter Care Teams Mechanical Adjuster Relationship Specialty Start Date End Date Chase Gunn MD [address] [facility] [address] [place] [address] PCP - General 06/21/20 documented as of this encounter
--- OUTSIDE RECORDS SUMMARY | 2025-01-26 09:08 | XMS_ITS | Encounter Summary ---
Author Organization [facility] Address [address] [place] [address] Care Team Providers Care Manager Heart Failure Name Role Phone Chase Gunn MD Primary Care Provider + [phone] Encounter Details Date Type Department Care Team (Latest Contact Info) Description 01/17/2025 Travel Social History Tobacco Use Types Packs/Day [...] were you homeless or living in a intermediate (including now)? No 01/16/2025 [facility] Utilities Answer Date Recorded In [...] Answer Date of Assessment Author Precautions Environmental surveillance 01/17/2025 8:0 0 PM Christina Lovell RN * Calculated C-SSRS Risk Score (Lifetime/Recent) Answer Date of Assessment Author No Risk Indicated 01/17/2025 8:00 AM Ofelia Gupta RN * Question Answer Date of Assessment Author 1. Wish to be (Past 1 Month) No 025 8:00 AM Ofelia Gupta RN 2. Non-Specific Active Suici christie Thoughts (Past 1 Month) No 01/17/2025 8:00 AM Rufino Gupta RN 6. Suicidal Behavior (Lifetime) No 8:00 AM Ofelia Gupta RN documented as of this encounter Mental Status * Question Answer Entry Date Author Precautions Environmental surveillance 01/17/2025 8:0 0 PM Christina Lovell RN documented in this encounter Plan of Treatment Upcoming Encounters Date Type Department Care Team (Late st Contact Info) Description 03/27/2025 8:30 AM EST Consult [place] [facility] [address], [address] [place] [address] Fransisco Farley MD [address] [place] [address] documented as of this encounter Visit Diagnoses Not on filedocumented in this encounter Additional Health Concerns Assessment Noted Time A Body Mass Index follow-up plan has been documented for the patient 01/23/2025 12:18 PM EST documented as of this encounter Care Teams Manager Heart Failure Relationship Specialty Start Date End Date Chase Gunn MD [address] [facility] [address] [place], [place] [id number] PCP - General 06/21/20 documented as of this encounter
--- OUTSIDE RECORDS SUMMARY | 2025-01-26 09:08 | XMS_ITS | Encounter Summary ---
Author Organization [facility] Address [address] [place] [address] Care Team Providers Care Sales Broker Name Role Phone Chase Gunn MD Primary Care Provider + [phone] Encounter Details Date Type Department Care Team (Latest Contact Info) Description 01/16/2025 Travel Social History Tobacco Use Types Packs/Day [...] any time in the past 12 m [facility], were you homeless or living in a [place] [facility] (including now)? No 01/16/2025 [facility] Utilities Answer Date Recorded In the [...] Felisa Forrest RN documented in this encounter Plan of Treatment Upcoming Encounters Date Type Department Care Team (Late st Contact Info) Description 03/27/2025 8:30 AM EST Consult [place] [facility] [address], [address] [place] [address] Fransisco Farley MD [address] [place] [address] documented as of this encounter Visit Diagnoses Not on filedocumented in this encounter Additional Health Concerns Assessment Noted Time A Body Mass Index follow-up plan has been documented for the patient 01/23/2025 12:18 PM EST documented as of this encounter Care Teams Sales Broker Relationship Specialty Start Date End Date Chase Gunn MD [address] [facility] [address] [place] [address] PCP - General 06/21/20 documented as of this encounter
--- OUTSIDE RECORDS SUMMARY | 2025-01-26 09:09 | XMS_ITS | Encounter Summary ---
Author Organization [facility] Address [address] [place] [address] Care Team Providers Care Head Of Marketing Adometry Name Role Phone Chase Gunn MD Primary Care Provider + [phone] Encounter Details Date Type Department Care Team (Latest Contact Info) Description 01/15/2025 Travel Social History Tobacco Use Types Packs/Day [...] any time in the past 12 m [facility], were you homeless or living in a group home (including now)? No 01/16/2025 [facility] Utilities Answer Date Recorded In the [...] Date of Assessment Author Precautions Environmental surveillance 01/15/2025 10: 00 PM Cydney Garcia RN * Calculated C-SSRS Risk Score (Lifetime/Recent) Answer Date of Assessment Author No Risk Indicated 01/15/2025 10:00 PM Cydney Cuello RN * Question Answer Date of Assessment Author 1. Wish to be (Past 1 Month) No 025 10:00 PM Cydney Garcia, RAI 2. Non-Specific Active Suici christie Thoughts (Past 1 Month) No 01/15/2025 10:00 PM Bashir Garcia, RAI 6. Suicidal Behavior (Lifetime) No 10:00 PM Cydney Garcia, RAI documented as of this encounter Mental Status * Question Answer Entry Date Author Precautions Environmental surveillance 01/15/2025 10: 00 PM Cydney Garcia, RAI documented in this encounter Plan of Treatment Upcoming Encounters Date Type Department Care Team (Late st Contact Info) Description 03/27/2025 8:30 AM EST Consult [place] [facility] [address], [address] [place] [address] Fransisco Farley MD [address] [place] [address] documented as of this encounter Visit Diagnoses Not on filedocumented in this encounter Additional Health Concerns Assessment Noted Time A Body Mass Index follow-up plan has been documented for the patient 01/23/2025 12:18 PM EST documented as of this encounter Care Teams Head Of Marketing Adometry Relationship Specialty Start Date End Date Chase Gunn MD [address] [facility] [address] [place] [address] PCP - General 06/21/20 documented as of this encounter
--- OUTSIDE RECORDS SUMMARY | 2025-01-26 09:09 | XMS_ITS | Encounter Summary ---
Author Organization Healthcare Address [address] [place] [address] Care Team Providers Care Line Therapist Name Role Phone Chase Gunn MD Primary Care Provider + [phone] Encounter Details Date Type Department Care Team ([facility] st Contact Info) Description 01/13/2025 Orders Only External Location [address] [place] [address] Provider, External Social History Tobacco Use Types Packs/Day Years [...] any time in the past 12 m [facility], were you homeless or living in a nursing home (including now)? No 01/16/2025 [facility] Utilities Answer Date Recorded In the past [...] * Question Answer Date of Assessment Author Kristen Fall risk;[facility] surveillance 01/17/2025 8:00 AM Ofelia Gupta RN * Calculated C-SSRS Risk Score (Lifetime/Recent) [...] Status * Question Answer Entry Date Author Kristen Fall risk;[facility] surveillance 01/17/2025 8:00 AM Ofelia Gupta RN documented in this encounter Plan of Treatment Upcoming Encounters Date Type Department Care Team (Late st Contact Info) Description 03/27/2025 8:30 AM EST Consult [place] [facility] [address], [address] [place] [address] Fransisco Farley MD [address] [place] [address] documented as of this encounter Procedures Procedure Name Priority Date/Time Associated Diagnosis Comments CT NEURO OUTSIDE IMAGES 01/13/2025 documented in this encounter Results * CT NEURO OUTSIDE IMAGES (01/13/2025) Anatomical Region Laterality Modality Computed Tomogra phy 01/13/2025 us External Provider IMG CT PROCEDURES Final Result documented in this encounter Visit Diagnoses Not on filedocumented in this encounter Care Teams Line Therapist Relationship Specialty Start Date End Date Chase Gunn MD [address] [facility] [address] [place] [address] PCP - General 06/21/20 documented as of this encounter
--- OUTSIDE RECORDS SUMMARY | 2025-01-26 09:09 | XMS_ITS | Encounter Summary ---
Author Organization Healthcare Address [address] [place] [address] Care Team Providers Care Transit Department Clerk Name Role Phone Chase Gunn MD Primary Care Provider + [phone] Encounter Details Date Type Department Care Team ([facility] st Contact Info) Description 01/10/2025 Orders Only External Location [address] [place] [address] Provider, External Social History Tobacco Use Types [...] any time in the past 12 m [facility], were you homeless or living in a retirement (including now)? No 01/16/2025 [facility] Utilities Answer Date Recorded In the past [...] Answer Date of Assessment Author Kristen Fall risk;[facility] surveillance 01/17/2025 8:00 AM Ofelia Gupta RN [...] Question Answer Entry Date Author Kristen Fall risk;[facility] surveillance 01/17/2025 8:00 AM Ofelia Gupta RN documented in this encounter Plan of Treatment Upcoming Encounters Date Type Department Care Team (Late st Contact Info) Description 03/27/2025 8:30 AM EST Consult [place] [facility] [address], [address] [place] [address] Fransisco Farley MD [address] [place] [address] documented as of this encounter Procedures Procedure Name Priority Date/Time Associated Diagnosis Comments CT THORACIC OUTSIDE IMAGES 01/10/2025 documented in this encounter Results * CT THORACIC OUTSIDE IMAGES (01/10/2025) Anatomical Region Laterality Modality Computed Tomogra phy 01/10/2025 us External Provider IMG CT PROCEDURES Final Result documented in this encounter Visit Diagnoses Not on filedocumented in this encounter Care Teams Transit Department Clerk Relationship Specialty Start Date End Date Chase Gunn MD [address] [facility] [address] [place] [address] PCP - General 06/21/20 documented as of this encounter
--- OUTSIDE RECORDS SUMMARY | 2025-01-26 09:09 | XMS_ITS | Encounter Summary ---
Author Organization Healthcare Address [address] [place] [address] Care Team Providers Care General Surgery Physician Assistant Name Role Phone Chase Gunn MD Primary Care Provider + [phone] Encounter Details Date Type Department Care Team ([facility] st Contact Info) Description 01/10/2025 Orders Only External Location [address] [place] [address] Provider, External Social History Tobacco Use Types [...] any time in the past 12 m [facility], were you homeless or living in a [facility] (including now)? No 01/16/2025 [facility] Utilities Answer Date Recorded In the [...] Answer Date of Assessment Author Kristen Fall risk;[facility] surveillance 01/17/2025 8:00 AM Ofelia Gupta [...] Question Answer Entry Date Author Kristen Fall risk;[facility] surveillance 01/17/2025 8:00 AM Ofelia Gupta RN documented in this encounter Plan of Treatment Upcoming Encounters Date Type Department Care Team (Late st Contact Info) Description 03/27/2025 8:30 AM EST Consult [place] [facility] [address], [address] [place] [address] Fransisoc Farley MD [address] [place] [address] documented as of this encounter Procedures Procedure Name Priority Date/Time Associated Diagnosis Comments XR OUTSIDE IMAGES 01/10/2025 documented in this encounter Results * XR OUTSIDE IMAGES (01/10/2025) Anatomical Region Laterality Modality Radiographic Adriana ging 01/10/2025 us External Provider IMG XR PROCEDURES Final Result documented in this encounter Visit Diagnoses Not on filedocumented in this encounter Care Teams General Surgery Physician Assistant Relationship Specialty Start Date End Date Chase Gunn MD [address] [facility] [address] [place] [address] PCP - General 06/21/20 documented as of this encounter
--- OUTSIDE RECORDS SUMMARY | 2025-01-26 09:09 | XMS_ITS | Encounter Summary ---
Author Organization Healthcare Address [address] [id number] Care Team Providers Care Bods Developer Name Role Phone Chase Gunn MD Primary Care Provider + [phone] Encounter Details Date Type Department Care Team (Late st Contact Info) Description 01/24/[address] [facility] [address] [place] [address] Madelaine Guevara, PharmD [address] [place], [place] [id number] Social History Tobacco Use Types Packs/Day Years [...] in a correction (including now)? No 01/16/2025 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
--- OUTSIDE RECORDS SUMMARY | 2025-01-26 09:09 | XMS_ITS | Encounter Summary ---
Author Organization Healthcare Address [address] [place] [address] Care Team Providers Care Genetic Technologist Name Role Phone Chase Gunn MD Primary Care Provider + [phone] Encounter Details Date Type Department Care Team ([facility] st Contact Info) Description 01/14/2025 Orders Only External Location [address] [place] [address] Provider, External Social History Tobacco Use Types [...] any time in the past 12 m [facility], were you homeless or living in a [facility] (including now)? No 01/16/2025 [facility] [...] * Question Answer Date of Assessment Author Peterson Environmental surveillance 01/18/2025 8:0 0 AM Felisa Sidhu RN * Calculated C-SSRS Risk Score (Lifetime/Recent) Answer Date of Assessment Author No Risk Indicated 01/18/2025 8:00 AM Felisa Sidhu RN * Question Answer Date of Assessment Author 1. Wish to be (Past 1 Month) No 025 8:00 AM Felisa Sidhu RN 2. Non-Specific Active Suici christie Thoughts (Past 1 Month) No 01/18/2025 8:00 AM Kimmy Sidhu RN 6. Suicidal Behavior (Lifetime) No 8:00 AM Felisa Sidhu RN documented as of this encounter Mental Status * Question Answer Entry Date Author Peterson Environmental surveillance 01/18/2025 8:0 0 AM Felisa Sidhu RN documented in this encounter Plan of Treatment Upcoming Encounters Date Type Department Care Team (Late st Contact Info) Description 03/27/2025 8:30 AM EST Consult [place] [facility] [address], [address] [place] [address] Fransisco Farley MD [address] [place] [address] documented as of this encounter Procedures Procedure Name Priority Date/Time Associated Diagnosis Comments XR OUTSIDE IMAGES 01/14/2025 documented in this encounter Results * XR OUTSIDE IMAGES (01/14/2025) Anatomical Region Laterality Modality Radiographic Adriana ging 01/14/2025 us External Provider IMG XR PROCEDURES Final Result documented in this encounter Visit Diagnoses Not on filedocumented in this encounter Care Teams Genetic Technologist Relationship Specialty Start Date End Date Chase Gunn MD [address] [facility] [address] [place] [address] PCP - General 06/21/20 documented as of this encounter
--- OUTSIDE RECORDS SUMMARY | 2025-01-26 09:09 | XMS_ITS | Data Portability ---
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 [email or web address] Not available 12/30/2023 10:46:30 01/28/2024 01/28/2024 Switch to darifenacin for medical management of lower urinary symptoms. [email or web address] Not available 01/28/2024 11:04:21 06/15/2024 06/15/2024 - 73-year-old female with history of overactive bladder and urge incontinence, presenting with persistent urinary symptoms. - Persistent symptoms despite interstim neurostimulator and medication trials. - Consideration of Botox if current treatment fails. [email or web address] Not available 06/15/2024 15:54:01 12/07/2024 12/07/2024 - 73-year-old female with a history of overactive bladder presenting with urinary urgency and urge incontinence. - The patient reports limited improvement with current medication, Gemtesa, and previous use of trospium was also ineffective. - History of neurostimulator placement in 2018, removed due to lack of improvement. - Considering Botox injections as a potential treatment option. [email or web address] Not available 12/07/2024 15:58:12 01/02/2025 01/02/2025 SURGERY DATE: 01/02/2025 PREOPERATIVE DIAGNOSES: 1. Urinary urgency. 2. Urge urinary incontinence. 3. Urinary frequency. POSTOPERATIVE DIAGNOSES: 1. Urinary urgency. 2. Urge urinary incontinence. 3. Urinary frequency. PROCEDURE PERFORMED: Cystoscopy with detrusor injection of Botox for chemical denervation of the bladder. SURGEON: Jose Amin MD ANESTHESIA: General. ESTIMATED BLOOD LOSS: None. COMPLICATIONS: None. SPECIMENS: None. OPERATIVE FINDINGS: A total of 100 units was injected into the detrusor muscle in grid like pattern. INDICATIONS FOR PROCEDURE: The patient with medical refractory urinary urgency, urge incontinence, urinary frequency. She was given treatment options and wished to proceed with detrusor Botox injection. DESCRIPTION OF PROCEDURE: The patient was correctly identified in the preoperative holding area. Informed consent was obtained after all risks, benefits, alternatives to the procedure were discussed with the patient. She was taken to procedure room, positioned in the supine position where anesthesia was induced. She was repositioned into lithotomy position with all pressure points padded. Proper time-out procedure completed. Preoperative antibiotics were given. Genitourinary area was prepped and draped in normal sterile fashion. A rigid cystoscopy was advanced through the urethra into urinary bladder. No foreign bodies, lesions or erythema identified. A total of 100 units of Botox was injected in grid like pattern throughout the bladder in 0.5 ml injections. At the conclusion of the procedure, the patient's bladder was drained and lidocaine gel was instilled for local analgesia. DISPOSITION: The patient tolerated the procedure well. She is discharged home with instructions to follow up in one month for reevaluation of her symptoms. [email or web address] Not available 01/07/2025 10:20:24 Plan of Treatment Reminders Order Date Submit Date Provider Last Modified By Organization Details Last Modified Time Details Appointments None recorded. Lab urinalysis panel, auto 2024 025 [email or web address] 14 [facility], [address], [address], [place], [address], 15:56:20 urinalysis panel, auto 2023 024 [email or web address] 14 [facility], [address], [address], [place], [address], 4 09:04:10 Referral None recorded. Procedures None recorded. Surgeries cystourethr oscopy, with injections for chemodenerv ation of the bladder (SURG) 2024 025 [id number] [facility], [address], [place], [address], 12:03:09 Imaging None recorded. Medication Orders mirabegron ER 50 mg tablet,exte nded release 24 hr 2024 025 CHRIS [facility], [address] [place], [address], 15:58:38 trospium 20 mg tablet 2024 025 CHRIS [facility], [address] [place], [address], 15:58:41 darifenacin ER 15 mg tablet,exte nded release 24 hr 2023 025 CHRIS [facility], [address] [place], [address], 15:58:40 hydrocodone 7.5 mg-acetamin ophen 325 mg tablet 2023 024 CHRIS [facility]in[facility], [address] [place], [address], 4 10:50:21 Patient TargetsNo targets recorded. Patient Instructions Encounter Date Encounter Id Patient Instructions Last Modified By Organization Details Last Modified Time 06/15/2024 [id number] - Begin taking trazodone as directed. - Keep track of your symptoms and urine frequency. - If there is no improvement, consider Botox as discussed. - Return for follow-up to evaluate treatment progress. - Change pads as needed and monitor for any new symptoms. - Call if you experience any urgent issues or side effects. [email or web address] Not available 06/15/2024 15:54:03 12/07/2024 [id number] - Continue takin g Gemtesa as prescribed. - Prepare for scheduled Botox injections for bladder management. - Monitor urinary symptoms and report any changes. [email or web address] Not available 12/07/2024 15:58:14 Reason for Referral None Reported. Results Created Date Observation Date Name Description Value Unit Range Abnormal Flag Note LastModifiedBy Organization Detail LastModifiedTime 12/30/19 24 12/30/2023 UA WITH CULTU RE IF INDIC ATED color Yellow normal Not Available [facility] [address], [place], [address], 12/30/2023 11:06:58 12/30/19 24 12/30/2023 UA WITH CULTU RE IF INDIC ATED appearance Light turbid normal Not Available [facility] [address] [place] [address], [address], 12/30/2023 11:06:58 12/30/19 24 12/30/2023 UA WITH CULTU RE IF INDIC ATED glucose 1000 mg/dL normal abnormal Not Available [facility] [address] [place] [address], [address], 12/30/2023 11:06:58 12/30/19 24 12/30/2023 UA WITH CULTU RE IF INDIC ATED bilirubin Negati ve mg/dL negati ve normal Not Available [facility] [address] [place] [address], [address], 12/30/2023 11:06:58 12/30/19 24 12/30/2023 UA WITH CULTU RE IF INDIC ATED ketone Negati ve mg/dL negati ve normal Not Available [facility] [address] [place] [address], [address], 12/30/2023 11:06:58 12/30/19 24 12/30/2023 UA WITH CULTU RE IF INDIC ATED specific gravity 1.034 1.003- 1.035 normal Not Available [facility] [address] [place] [address], [address], 12/30/2023 11:06:58 12/30/19 24 12/30/2023 UA WITH CULTU RE IF INDIC ATED blood 10 /uL negati ve abnormal Not Available [facility] [address] [place] [address], [address], 12/30/2023 11:06:58 12/30/19 24 12/30/2023 UA WITH CULTU RE IF INDIC ATED pH 5 5.0 - 8.0 normal Not Available [facility] [address] [place] [address], [address], 12/30/2023 11:06:58 12/30/19 24 12/30/2023 UA WITH CULTU RE IF INDIC ATED protein Negati ve mg/dL negati ve normal Not Available [facility] [address] [place] [address], [address], 12/30/2023 11:06:58 12/30/19 24 12/30/2023 UA WITH CULTU RE IF INDIC ATED urobilinogen Normal mg/dL normal normal Not Available [facility] [address] [place] [address], [address], 12/30/2023 11:06:58 12/30/19 24 12/30/2023 UA WITH CULTU RE IF INDIC ATED nitrite Negati ve negati ve normal Not Available [facility] [address] [place] [address], [address], 12/30/2023 11:06:58 12/30/19 24 12/30/2023 UA WITH CULTU RE IF INDIC ATED leukocyte esterase Negati ve /uL negati ve normal Not Available [facility] [address] [place] [address], [address], 12/30/2023 11:06:58 12/30/19 24 12/30/2023 UA WITH CULTU RE IF INDIC ATED WBC, urine 10-20 0-5/hp f abnormal Not Available [facility] [address] [place] [address], [address], 12/30/2023 11:06:58 12/30/19 24 12/30/2023 UA WITH CULTU RE IF INDIC ATED RBC, urine 0-2 0-2/hp f normal Not Available [facility] [address] [place] [address], [address], 12/30/2023 11:06:58 12/30/19 24 12/30/2023 UA WITH CULTU RE IF INDIC ATED squamous epi. cells 0-5 0-5/hp f normal Not Available [facility] [address] [place], [address], 12/30/2023 11:06:58 12/30/19 24 12/30/2023 UA WITH CULTU RE IF INDIC ATED bacteria 4+ /hpf none seen abnormal Not Available [facility] [address] [place] [address], [address], 12/30/2023 11:06:58 12/30/19 24 12/30/2023 UA WITH CULTU RE IF INDIC ATED reflex culture see below normal Resul ts indic ate a urina ry tract infec tion. Cultu re added . Not Available [facility] [address] [place] [address], [address], 12/30/2023 11:06:58 12/30/19 24 12/30/2023 URINE CULTU RE klebsiella pneumoniae Organi sm: Klebsi ander pneumo niae Not Available [facility] [address] [place] [address], [address], 01/03/2024 10:02:59 12/30/19 24 01/03/2024 URINE CULTU RE urine culture abnormal ISOLA TE #1 COLON Y COUNT : > 100,0 00 CFU/M L Proba ble Gram Negat kaitlin Bacil angela; [place] tion In Progr ess. See [place] te Resul t(s) Below Klebs iella pneum oniae Not Available [facility] [address] [place] [address], [address], 01/03/2024 10:02:59 12/30/19 24 01/03/2024 URINE CULTU RE amox/K clav'ate(C) <=8/4 ug/mL susceptib le Not Available [facility] [address] [place] [address], [address], 01/03/2024 10:02:59 12/30/19 24 01/03/2024 URINE CULTU RE cefazolin <=2 ug/mL susceptib le Not Available [facility] [address] [place] [address], [address], 01/03/2024 10:02:59 12/30/19 24 01/03/2024 URINE CULTU RE ceftazidime <=1 ug/mL susceptib le Not Available [facility] [address] [place] [address], [address], 01/03/2024 10:02:59 12/30/19 24 01/03/2024 URINE CULTU RE ceftriaxone <=1 ug/mL susceptib le Not Available [facility] [address] [place] [address], [address], 01/03/2024 10:02:59 12/30/19 24 01/03/2024 URINE CULTU RE cefuroxime <=4 ug/mL susceptib le Not Available [facility] [address] [place] [address], [address], 01/03/2024 10:02:59 12/30/19 24 01/03/2024 URINE CULTU RE ciprofloxaci n <=0.25 ug/mL susceptib le Not Available [facility] [address] [place] [address], [address], 01/03/2024 10:02:59 12/30/19 24 01/03/2024 URINE CULTU RE gentamicin <=4 ug/mL susceptib le Not Available [facility] [address] [place] [address], [address], 01/03/2024 10:02:59 12/30/19 24 01/03/2024 URINE CULTU RE imipenem <=1 ug/mL susceptib le Not Available [facility] [address] [place] [address], [address], 01/03/2024 10:02:59 12/30/19 24 01/03/2024 URINE CULTU RE levofloxacin <=0.5 ug/mL susceptib le Not Available [facility] [address] [place] [address], [address], 01/03/2024 10:02:59 12/30/19 24 01/03/2024 URINE CULTU RE nitrofuranto in <=32 ug/mL susceptib le Not Available [facility] [address] [place] [address], [address], 01/03/2024 10:02:59 12/30/19 24 01/03/2024 URINE CULTU RE piperacillin /olya <=16 ug/mL susceptib le Not Available [facility] [address] [place] [address], [address], 01/03/2024 10:02:59 12/30/19 24 01/03/2024 URINE CULTU RE tetracycline <=4 ug/mL susceptib le Not Available [facility] [address] [place] [address], [address], 01/03/2024 10:02:59 12/30/19 24 01/03/2024 URINE CULTU RE tobramycin <=2 ug/mL susceptib le Not Available [facility] [address] [place] [address], [address], 01/03/2024 10:02:59 12/30/19 24 01/03/2024 URINE CULTU RE trimeth/sulf a <=2/38 ug/mL susceptib le Not Available [facility] [address] [place] [address], [address], 01/03/2024 10:02:59 12/30/19 24 12/30/2023 urina lysis panel , auto Unknown Analyte Clean Catch Not Available [facility] Schedule [address] [place], [address], 12/30/2023 09:37:40 12/30/19 24 12/30/2023 urina lysis panel , auto Unknown Analyte Yellow Not Available [facility] Schedule [address] [place], [address], 12/30/2023 09:37:40 11/21/12/30/2023 urina lysis panel , auto Unknown Analyte Slight ly Hazy Not Available [facility] [address] [place], [address], 12/30/2023 09:37:40 12/30/19 24 12/30/2023 urina lysis panel , auto Unknown Analyte 1.015 Not Available [facility] Schedule [address] [place], [address], 12/30/2023 09:37:40 12/30/19 24 12/30/2023 urina lysis panel , auto Unknown Analyte 1.003- 1.035 Not Available [facility] [address] [place] [address], [address], 12/30/2023 09:37:40 12/30/19 24 12/30/2023 urina lysis panel , auto Unknown Analyte 5.0 Not Available [facility] Schedule [address] [place] [address], [address], 12/30/2023 09:37:40 12/30/19 24 12/30/2023 urina lysis panel , auto Unknown Analyte 5.0-8. 0 Not Available [facility] [address] [place] [address], [address], 12/30/2023 09:37:40 12/30/19 24 12/30/2023 urina lysis panel , auto Unknown Analyte Negati ve Not Available [facility] [address] [place] [address], [address], 12/30/2023 09:37:40 12/30/19 24 12/30/2023 urina lysis panel , auto Unknown Analyte Negati ve Not Available [facility] [address] [place] [address], [address], 12/30/2023 09:37:40 12/30/19 24 12/30/2023 urina lysis panel , auto Unknown Analyte POSITI VE (Abnor mal) Not Available [facility] Schedule [address] [place], [address], 12/30/2023 09:37:40 12/30/19 24 12/30/2023 urina lysis panel , auto Unknown Analyte Negati ve Not Available [facility] Schedule [address] [place], [address], 12/30/2023 09:37:40 12/30/19 24 12/30/2023 urina lysis panel , auto Unknown Analyte Negati ve Not Available [facility] Schedule [address] [place], [address], 12/30/2023 09:37:40 12/30/1912/30/2023 urina lysis panel , auto Unknown Analyte Negati ve Not Available [facility] Schedule [address] [place], [address], 12/30/2023 09:37:40 12/30/19 24 12/30/2023 urina lysis panel , auto Unknown Analyte >1000 mg/dl Not Available [facility] [address] [place], [address], 12/30/2023 09:37:40 12/30/19 24 12/30/2023 urina lysis panel , auto Unknown Analyte Normal Not Available [facility] Schedule [address] [place], [address], 12/30/2023 09:37:40 12/30/19 24 12/30/2023 urina lysis panel , auto Unknown Analyte Negati ve Not Available [facility] Schedule [address] [place], [address], 12/30/2023 09:37:40 12/30/19 24 12/30/2023 urina lysis panel , auto Unknown Analyte Negati ve Not Available [facility] Schedule [address] [place], [address], 12/30/2023 09:37:40 12/30/19 24 12/30/2023 urina lysis panel , auto Unknown Analyte Normal Not Available [facility] Schedule [address] [place], [address], 12/30/2023 09:37:40 12/30/19 24 12/30/2023 urina lysis panel , auto Unknown Analyte Normal 1 mg/dl Not Available [facility] Schedule [address] [place], [address], 12/30/2023 09:37:40 12/30/19 24 12/30/2023 urina lysis panel , auto Unknown Analyte Negati ve Not Available [facility] Schedule [address] [place], [address], 12/30/2023 09:37:40 12/30/19 24 12/30/2023 urina lysis panel , auto Unknown Analyte Negati ve Not Available [facility] Schedule [address] [place], [address], 12/30/2023 09:37:40 12/30/19 24 12/30/2023 urina lysis panel , auto Unknown Analyte Negati ve Not Available [facility] Schedule [address] [place], [address], 12/30/2023 09:37:40 12/30/19 24 12/30/2023 urina lysis panel , auto Unknown Analyte Negati ve Not Available [facility] Schedule [address] [place], [address], 12/30/2023 09:37:40 01/28/20 24 01/28/2024 urina lysis panel , auto Unknown Analyte Clean Catch Not Available [facility] [address] [place] [address] [address], [place], [address], 01/28/2024 13:18:47 01/28/20 24 01/28/2024 urina lysis panel , auto Unknown Analyte Yellow Not Available [facility] [address], [place], [address], 01/28/2024 13:18:47 01/28/20 24 01/28/2024 urina lysis panel , auto Unknown Analyte Clear Not Available [facility] [address], [place], [address], 01/28/2024 13:18:47 01/28/20 24 01/28/2024 urina lysis panel , auto Unknown Analyte 1.015 Not Available [facility] [address], [place], [address], 01/28/2024 13:18:47 01/28/20 24 01/28/2024 urina lysis panel , auto Unknown Analyte 1.003- 1.035 Not Available [facility] [address], [place], [address], 01/28/2024 13:18:47 01/28/20 24 01/28/2024 urina lysis panel , auto Unknown Analyte 5.0 Not Available [facility] [address] [place] [address] Rd [address], [place], [address], 01/28/2024 13:18:47 01/28/20 24 01/28/2024 urina lysis panel , auto Unknown Analyte 5.0-8. 0 Not Available [facility] [address], [place], [address], 01/28/2024 13:18:47 01/28/20 24 01/28/2024 urina lysis panel , auto Unknown Analyte Negati ve Not Available [facility] [address], [place], [address], 01/28/2024 13:18:47 01/28/20 24 01/28/2024 urina lysis panel , auto Unknown Analyte Negati ve Not Available [facility] [address], [place], [address], 01/28/2024 13:18:47 01/28/20 24 01/28/2024 urina lysis panel , auto Unknown Analyte Negati ve Not Available [facility] [address], [place], [address], 01/28/2024 13:18:47 01/28/20 24 01/28/2024 urina lysis panel , auto Unknown Analyte Negati ve Not Available [facility] [address], [place], [address], 01/28/2024 13:18:47 01/28/20 24 01/28/2024 urina lysis panel , auto Unknown Analyte Negati ve Not Available [facility] [address] [place] [address] Rd [address], [place], [address], 01/28/2024 13:18:47 01/28/20 24 01/28/2024 urina lysis panel , auto Unknown Analyte Negati ve Not Available [facility] [address], [place], [address], 01/28/2024 13:18:47 01/28/20 24 01/28/2024 urina lysis panel , auto Unknown Analyte >1000 mg/dl Not Available [facility] [address], [place], [address], 01/28/2024 13:18:47 01/28/20 24 01/28/2024 urina lysis panel , auto Unknown Analyte Normal Not Available [facility] [address], [place], [address], 01/28/2024 13:18:47 01/28/20 24 01/28/2024 urina lysis panel , auto Unknown Analyte Negati ve Not Available [facility] [address], [place], [address], 01/28/2024 13:18:47 01/28/20 24 01/28/2024 urina lysis panel , auto Unknown Analyte Negati ve Not Available [facility] [address], [place], [address], 01/28/2024 13:18:47 01/28/20 24 01/28/2024 urina lysis panel , auto Unknown Analyte Normal Not Available [facility] [address], [place], [address], 01/28/2024 13:18:47 01/28/20 24 01/28/2024 urina lysis panel , auto Unknown Analyte Normal 1 mg/dl Not Available [facility] [address], [place], [address], 01/28/2024 13:18:47 01/28/20 24 01/28/2024 urina lysis panel , auto Unknown Analyte Negati ve Not Available [facility] [address] [place] [address] [address], [place], [address], 01/28/2024 13:18:47 01/28/20 24 01/28/2024 urina lysis panel , auto Unknown Analyte Negati ve Not Available [facility] [address] [place] [address] Rd [address], [place], [address], 01/28/2024 13:18:47 01/28/20 24 01/28/2024 urina lysis panel , auto Unknown Analyte Negati ve Not Available [facility] [address], [place], [address], 01/28/2024 13:18:47 01/28/20 24 01/28/2024 urina lysis panel , auto Unknown Analyte Negati ve Not Available [facility] With [address], [place], [address], 01/28/2024 13:18:47 12/08/19 25 12/07/2024 urina lysis panel , auto Unknown Analyte Clean Catch Not Available [facility] [place] With [address], [place], [address], 12/07/2024 15:54:20 12/08/19 25 12/07/2024 urina lysis panel , auto Unknown Analyte Yellow Not Available [facility] [place] With [address], [place], [address], 12/07/2024 15:54:20 12/08/19 25 12/07/2024 urina lysis panel , auto Unknown Analyte Clear Not Available [facility] [place] With [address], [place], [address], 12/07/2024 15:54:20 12/08/19 25 12/07/2024 urina lysis panel , auto Unknown Analyte 1.015 Not Available [facility] With [address], [place], [address], 12/07/2024 15:54:20 12/08/19 25 12/07/2024 urina lysis panel , auto Unknown Analyte 1.003 - 1.030 Not Available [facility] With [address], [place], [address], 12/07/2024 15:54:20 12/08/19 25 12/07/2024 urina lysis panel , auto Unknown Analyte 6.0 Not Available [facility] With [address], [place], [address], 12/07/2024 15:54:20 12/08/19 25 12/07/2024 urina lysis panel , auto Unknown Analyte 5.0 - 8.0 Not Available [facility] With [address] Davidson, [place], [address], 12/07/2024 15:54:20 12/08/19 25 12/07/2024 urina lysis panel , auto Unknown Analyte Negati ve Not Available [facility] With [address], [place], [address], 12/07/2024 15:54:20 12/08/19 25 12/07/2024 urina lysis panel , auto Unknown Analyte Negati ve Not Available [facility] [address], [place], [address], 12/07/2024 15:54:20 12/08/19 25 12/07/2024 urina lysis panel , auto Unknown Analyte Negati ve Not Available [facility] With [address], [place], [address], 12/07/2024 15:54:20 12/08/19 25 12/07/2024 urina lysis panel , auto Unknown Analyte Negati ve Not Available [facility] With [address] Jose Davidson, [place], [address], 12/07/2024 15:54:20 12/08/19 25 12/07/2024 urina lysis panel , auto Unknown Analyte Negati ve Not Available [facility] [address], [place], [address], 12/07/2024 15:54:20 12/08/19 25 12/07/2024 urina lysis panel , auto Unknown Analyte Negati ve Not Available [facility] [address], [place], [address], 12/07/2024 15:54:20 12/08/19 25 12/07/2024 urina lysis panel , auto Unknown Analyte >1000 mg/dL Not Available [facility] [address], [place], [address], 12/07/2024 15:54:20 12/08/19 25 12/07/2024 urina lysis panel , auto Unknown Analyte Normal Not Available [facility] With [address], [place], [address], 12/07/2024 15:54:20 12/08/19 25 12/07/2024 urina lysis panel , auto Unknown Analyte Negati ve Not Available [facility] With [address], [place], [address], 12/07/2024 15:54:20 12/08/19 25 12/07/2024 urina lysis panel , auto Unknown Analyte Negati ve Not Available [facility] With [address], [place], [address], 12/07/2024 15:54:20 12/08/19 25 12/07/2024 urina lysis panel , auto Unknown Analyte Normal Not Available [facility] With [address] Jose Davidson, [place], [address], 12/07/2024 15:54:20 12/08/19 25 12/07/2024 urina lysis panel , auto Unknown Analyte Normal Not Available [facility] With [address] Jose Davidson, [place], [address], 12/07/2024 15:54:20 12/08/19 25 12/07/2024 urina lysis panel , auto Unknown Analyte Negati ve Not Available [facility] With [address], [place], [address], 12/07/2024 15:54:20 12/08/19 25 12/07/2024 urina lysis panel , auto Unknown Analyte Negati ve Not Available [facility] With [address], [place], [address], 12/07/2024 15:54:20 12/08/19 25 12/07/2024 urina lysis panel , auto Unknown Analyte Negati ve Not Available [facility] With [address], [place], [address], 12/07/2024 15:54:20 12/08/19 25 12/07/2024 urina lysis panel , auto Unknown Analyte Negati ve Not Available [facility] [address], [place], [address], 12/07/2024 15:54:20 Result Notes None recorded. Problems Name Problem SNOMED Code Status Onset Date Resolution Date Notes Provider Name and Address Organization Details Recorded Time Overactive urinary bladder 142756968 Active 024 JOSE AMIN MD [address] [place] [address], [address] [place] [address] 15:59:10 Problem Notes None recorded. Procedures Surgical History Date Name Laterality Status Provider Name and Address Organization Details Recorded Time 07/11/19 arthroplasty of knee completed Murelene Dionicio [facility] 12/07/2024 15:54:02 cholecystectomy completed [facility] 11/22/2023 14:47:43 Carpal tunnel surgery completed [facility] 11/22/2023 14:47:59 hernia repair completed [facility] 11/22/2023 14:48:23 biopsy completed [facility] 11/22/2023 14:48:59 Tubal Ligation completed [facility] 11/22/2023 14:49:07 procedure on finger completed [facility] 11/22/2023 14:49:32 Cerebral Aneurysm completed [facility] 11/22/2023 14:50:43 Imaging Results None recorded. Procedure Notes None recorded. Medical Equipment None Reported. Allergies Allergen ID Allergen Name Allergen Category Reaction Reaction Severity Criticality Documentation Date Start Date Code Code System Note Provider Name and Address Organization Details Recorded Time 411209 Ozempic medicatio n Not available Not available Not available 11/22/2023 RxNorm [facility] 14:43:39 Medications Name Sig Start Date Stop [...] Updated DateTime 06/15/2024 165.1 cm 30 kg/m2 95701.63 g Torie [facility] 06/15/2024 16:02:09 Date Recorded Body height Body mass index (BMI) Body weight Provider Name and Address Organization Details Last Updated DateTime 12/07/2024 165.1 cm 32.4 kg/m2 57770.51 adiel Greenberg [facility] 12/07/2024 15:53:27 Date Recorded Body height Body mass index (BMI) Body weight Provider Name and Address Organization Details Last Updated DateTime 01/28/2024 165.1 cm 30.6 kg/m2 37341 adiel Villatoro [facility] 01/28/2024 11:07:04 Social History Question Answer Notes LastModified by [email or web address] Details LastModified Time Tobacco Smoking Status [facility]/22/2023 14:47:17 What Was The Date Of Your Most Recent Tobacco Screening? 06/15/2024 [email or web address] Information not available 06/15/2024 What Is Your Relationship Status? [email or web address] Information not available 11/22/2023 Has Tobacco Cessation Counseling Been Provided? No [email or web address] Information not available 11/22/2023 Sex: Unknown Functional Status Question Answer Note LastModified by [facility] Details LastModified Time Do you use any illicit or recreational drugs? No [email or web address] Information not available 11/22/2023 Do you or have you ever used any other forms of tobacco or nicotine? No [email or web address] Information not available 11/22/2023 What is your level of alcohol consumption? None [email or web address] Information not available 11/22/2023 Are you currently employed? No retired [email or web address] Information not available 11/22/2023 Mental Status None recorded. Family History Relationship Description Onset Age of this Age Resolved Age Notes LastModified by Organization Details LastModified Time Father No current problems or disability [email or web address] Not available 14:47:07 Mother No current problems or disability [email or web address] Not available 14:47:07 Medical History Condition Response Diabetes Y Anemia Y Arthritis Y Stroke Y Hypertension Y Gynecological HistoryNo gynecological history recorded. Obstetrics History GPAL:G 0 P 0 0 0 0 Immunizations Vaccine Type Date Status Note Provider Nam e and Address Organization Details Recorded Time Influenza, high-dose, trivalent, PF 7 completed Not Available [facility] 12/07/2024 15:51:40 Influenza, split virus, quadrivalent, PF 8 completed Not Available [facility] 12/07/2024 15:51:40 COVID-19, mRNA, LNP-S, PF, 100 mcg/0.5mL dose or 50 mcg/0.25mL dose 1 completed Not Available [facility] 12/07/2024 15:51:40 COVID-19, mRNA, LNP-S, PF, 100 mcg/0.5mL dose or 50 mcg/0.25mL dose 1 completed [facility] 12/07/2024 15:51:40 COVID-19, mRNA, LNP-S, PF, 100 mcg/0.5mL dose or 50 mcg/0.25mL dose 1 completed Not Available [facility] 12/07/2024 15:51:40 Tdap 4 completed Not Available [facility] 12/07/2024 15:51:40 Influenza, high-dose, quadrivalent, PF 5 completed Not Available [facility] 12/07/2024 15:51:40 Pneumococcal conjugate PCV20, polysaccharide GCK685 conjugate, adjuvant, PF 5 completed Not Available [facility] 12/07/2024 15:51:40 Past Encounters Encounter ID Performer Location Encounter Start Date Encounter Closed Date Diagnosis/Indication Diagnosis SNOMED-CT Code Diagnosis ICD10 Code Diagnosis IMO Codes Diagnosis Note [id number] MD [facility] [address] [place] [address] 11/22/2023 15:47:47 11/22/2023 16:02:55 Overactive urinary bladder 916999580 N32.81 Urge incon tinence of urine 38248683 N39.41 [id number] JOSE AMIN MD SURGERY SCHEDULE [address] [place] [address] 12/30/2023 08:00:22 12/30/2023 08:00:43 Postoperative pain 908796940 G89.18 [id number] MD [facility] [address] [place] [address] 01/28/2024 10:00:18 01/28/2024 11:10:43 Overactive urinary bladder 670096616 N32.81 Urge incon tinence of urine 51064133 N39.41 [id number] JOSE AMIN MD [facility] [address] [address] 06/15/2024 15:41:59 06/15/2024 16:23:09 Overactive urinary bladder 362083123 N32.81 754247 - Initiate trazodone. - Consider Botox if symptoms persist. - Monitor trospium efficacy. - Discuss consent for Botox. Urge incon tinence of urine 31745120 N39.41 403867 - Trospium prescribed . - Possible Botox as backup. - Inform patient on Botox details. - Consent for Botox if chosen. [id number] JOSE AMIN MD [facility] [address] [address] 12/07/2024 15:50:47 12/07/2024 16:37:13 Overactive urinary bladder 149498417 N32.81 801314 - Continue current medication regimen with Gemtesa, although effectiven ess is limited. - Schedule for Botox injections to manage symptoms, as discussed. Urge incon tinence of urine 71143146 N39.41 653559 - Considerat ion of Botox injections for symptom management . Nocturia 061684070 R35.1 94895 - Monitor nocturia symptoms and adjust treatment plan as necessary. [id number] JOSE AMIN MD SURGERY SCHEDULE [address] [place] [address] 01/02/2025 12:14:09 01/02/2025 12:14:53 Health Concerns Section Related Observation LastModified by Organization Detai ls LastModified Time None Recorded Concern Status LastModified by Organization Details LastModified Time None Recorded Advance Directives Directive None Recorded Payers Insurance Date Sequence Insurance Name Policy Number Policy Batista Covered Member ID Batista Member ID Guarantor Name 01/02/2025 1 [place]ARE[place]ARE[place] Rosa Robel Kamala [id number] Rosa Huston Kamala 01/09/2025 2 [facility] [place] [id number] Rosa Kamala [id number] Rosa Huston Kamala Notes Date Note Type Note Provider Name and Address Organization Details Recorded Time 01/28/2024 text/html 73-year-old female in the office [...] No hematuria or dysuria. JOSE AMIN MD [address] [place] [address], [phone], [facility] 01/30/2024 09:04:23 06/15/2024 text/html - The patient [...] treatment for the condition. JOSE AMIN MD [address] [place] [address], [phone], [facility] 06/16/2024 08:49:30 12/07/2024 text/html The patient is a 73-year-old [...] note prior to signature. JOSE AMIN MD [address] [place] [address], [phone], [facility] 12/18/2024 09:26:56 OBGyn Episode No OBEpisode recorded.
--- OUTSIDE RECORDS SUMMARY | 2025-01-26 09:09 | XMS_ITS | Encounter Summary ---
Author Organization Healthcare Address [address] [place] [address] Care Team Providers Care Private Detective Name Role Phone Chase Gunn MD Primary Care Provider + [phone] Encounter Details Date Type Department Care Team ([facility] st Contact Info) Description 01/10/2025 Orders Only External Location [address] [place] [address] Provider, External Social History Tobacco Use Types [...] any time in the past 12 m [facility], were you homeless or living in a long term (including now)? No 01/16/2025 [facility] Utilities Answer Date Recorded In the [...] Answer Date of Assessment Author Kristen Fall risk;[facility] surveillance 01/17/2025 8:00 AM Ofelia [...] Question Answer Entry Date Author Kristen Fall risk;[facility] surveillance 01/17/2025 8:00 AM Ofelia Gupta RN documented in this encounter Plan of Treatment Upcoming Encounters Date Type Department Care Team (Late st Contact Info) Description 03/27/2025 8:30 AM EST Consult [place] [facility] [address], [address] [place] [address] Fransisco Farley MD [address] [place] [address] documented as of this encounter Procedures Procedure Name Priority Date/Time Associated Diagnosis Comments CT MSK OUTSIDE IMAGES 01/10/2025 documented in this encounter Results * CT MSK OUTSIDE IMAGES (01/10/2025) Anatomical Region Laterality Modality Computed Tomogra phy 01/10/2025 us External Provider IMG CT PROCEDURES Final Result documented in this encounter Visit Diagnoses Not on filedocumented in this encounter Care Teams Private Detective Relationship Specialty Start Date End Date Chase Gunn MD [address] [facility] [address] [place] [address] PCP - General 06/21/20 documented as of this encounter
--- OUTSIDE RECORDS SUMMARY | 2025-01-26 09:09 | XMS_ITS | Encounter Summary ---
Author Organization Healthcare Address [address] [place] [address] Care Team Providers Care Banking Supervisor Name Role Phone Chase Gunn MD Primary Care Provider + [phone] Encounter Details Date Type Department Care Team ([facility] st Contact Info) Description 01/10/2025 Orders Only External Location [address] [place] [address] Provider, External Social History Tobacco Use Types [...] any time in the past 12 m [facility], were you homeless or living in a usp (including now)? No 01/16/2025 [facility] Utilities Answer Date Recorded In the [...] Answer Date of Assessment Author Kristen Fall risk;[facility] surveillance 01/17/2025 8:00 AM Ofelia [...] Question Answer Entry Date Author Kristen Fall risk;[facility] surveillance 01/17/2025 8:00 AM Ofelia Gupta RN documented in this encounter Plan of Treatment Upcoming Encounters Date Type Department Care Team (Late st Contact Info) Description 03/27/2025 8:30 AM EST Consult [place] [facility] [address], [address] [place] [address] Fransisco Farley MD [address] [place] [address] documented as of this encounter Procedures Procedure Name Priority Date/Time Associated Diagnosis Comments CT NEURO OUTSIDE IMAGES 01/10/2025 documented in this encounter Results * CT NEURO OUTSIDE IMAGES (01/10/2025) Anatomical Region Laterality Modality Computed Tomogra phy 01/10/2025 us External Provider IMG CT PROCEDURES Final Result documented in this encounter Visit Diagnoses Not on filedocumented in this encounter Care Teams Banking Supervisor Relationship Specialty Start Date End Date Chase Gunn MD [address] [facility] [address] [place] [address] PCP - General 06/21/20 documented as of this encounter
--- OUTSIDE RECORDS SUMMARY | 2025-01-26 09:09 | XMS_ITS | Patient Health Record ---
Author Organization [facility] Address [address] [id number] Care Team Providers Care Heel Breaster Name Role Phone Chase Gunn Primary Care Provider Allergies Allergen (clinical drug ingredient) Drug/Non Drug Allergy documented on EMR Reaction Allergy Type Onset Date Status promethazine Promethazine sore mouth Drug Allergy Active Results Component Value Reference Range Notes P-Comprehensive Metabolic Pa torsten (CMP) Reviewed date:05/24/2024 11:29:48 AM Interpretation:glu 132, BUN 25, creat 1.24, eGFR 46 Performing Lab: Notes/Report: Test performed by [facility], [address] , [address], [place] [address] Deshawn Meade MD, [employer] CLIA: [id number] Sodium 141 135-145 mmol/L Potassium 5.3 3.5-5.3 [...] Interpretation:7.8 Performing Lab: Notes/Report: Test performed by [facility] [address] [place] [address] Jose Vargas, [place] [address] Deshawn Meade MD, [employer] CLIA: [id number] Hemoglobin A1C 7.8 <5.7 % The following HbA1c ranges recommended by the [place] [employer] (ADA) may be used as an aid in the diagnosis of diabetes mellitus. HbA1c Suggested Diagnosis >=6.5% Diabetic 5.7% - 6.4% Pre-Diabetic <5.7% Non-Diabetic P-Lipid Panel Reviewed date:05/24/2024 11:29:48 AM Interpretation: Normal Performing Lab: Notes/Report: Test performed by [facility] [address] [place] [address] Jose Vargas, [place] [address] Deshawn Meade MD, [employer] CLIA: [id number] Cholesterol 144 <200 mg/dL Triglycerides 111 <150 [...] Normal Performing Lab: Notes/Report: Test performed by [facility] [address] [place] [address] , [place] [address] Deshawn Meade MD, [employer] CLIA: [id number] TSH reflex to FT4 3.33 0.43-5.25 mU/L P-Microalbumin/Creatinine, R andom Urine Sample Reviewed date:05/24/2024 11:29:48 AM Interpretation: Normal Performing Lab: Notes/Report: Test performed by [facility] [address] [place] [address] , Jose C, [place] [address] Deshawn Meade MD, [employer] CLIA: [id number] Albumin/Creatinine Ratio, Urine 4 0-30 ug/mg Microalbumin, Urine, Random 0.3 Creatinine, Urine 76.8 Estimated Average Glucose Reviewed date:05/24/2024 11:29:48 AM Interpretation:177 Performing Lab: Notes/Report: Test performed by [facility] [address] [place] [address] , [address], [place] [address] Deshawn Meade MD, [employer] CLIA: [id number] Estimated Average Glucose (eAG) 177 Estimated Average Glucose (eAG) is calculated using the equation eAG = (28.7 x HbA1c) - 46.7 based on the guidelines established by the ADA. If the patient has certain diseases including kidney disease, sickle cell anemia, thalassemia, or is taking medications such as dapsone, erythropoietin, or iron, eAG should not be evaluated. Glucose (In-House) Reviewed date:11/22/2024 04:27:37 PM Interpretation:178 Performing Lab: Notes/Report: 178 blood glucose 178 74 - 106 mg/dL Glycohemoglobin A1c (in hous e) Reviewed date:11/22/2024 04:27:37 PM Interpretation:8.5% Performing Lab: Notes/Report: 8.5% glycohemoglobin 8.5% 5 - 6.5 % CBC Fingerstick (in house) Reviewed date:02/23/2024 11:39:15 [...] - 38 plat 210 100 - 400 H-CBC Reviewed date:01/15/2025 11:05:44 AM Interpretation: Performing Lab: Notes/Report: WBC 6.4 4.8-10.8 K/mm3 RBC 2.85 4.20-5.40 M/mm3 HGB 9.3 12.2-16.2 g/dL HCT 27.3 37.0-47.0 % MCV 95.8 81-99 fl MCH 32.6 27.0-31.2 pg MCHC 34.1 31.8-35.4 g/dL RDW-SD 50.7 RDW 14.4 11.5-17.5 % PLT 284 142-424 K/mm3 MPV 9.6 7.4-10.4 fl NE% 66.8 37.0-80.0 % LY% 14.5 10-50 % MO% 11.7 1.7-9.3 % EO% 5.1 0.1-12.0 % BA% 0.5 0.1-2.0 % NRBC% 0 IG% 1.4 NE# 4.3 1.8-7.8 K/mm3 LY# 0.9 0.7-4.5 K/mm3 MO# 0.8 0.1-1.0 K/mm3 EO# 0.3 0.0-0.4 Kmm3 BA# 0.0 0-0.2 K/mm3 NRBC# 0 IG# 0.09 H-BMP Reviewed date:01/15/2025 11:05:44 AM Interpretation: Performing Lab: Notes/Report: NA 131 136-145 mmol/L K 3.9 3.5-5.1 mmoL/L CL 103 98-107 mmol/L CO2 22 22.0-30.0 mmol/L GAP 9.9 5-15 mEq/L BUN 19 7-17 mg/dl CREATT 1.10 0.52-1.04 mg/dl Delta: 1.40 on 01/12/25 CRCLE 71 50-200 mL/min GFRAA 59 >60 ML/MIN Delta: 44 on 01/12/25 EGFR 49 >60 ml/min GLU 148 74-100 mg/dl CA 9.1 8.4-10.2 mg/dl CBC Fingerstick (in house) Reviewed date:07/12/2024 01:11:12 [...] - 38 plat 215 100 - 400 TEN-Upper Respiratory PCR Reviewed date:02/25/2024 12:38:07 PM Interpretation:Negative Performing Lab: Notes/Report: Negative CBC Fingerstick (in house) Reviewed date:04/03/2024 01:35:43 [...] 01:34:52 PM Interpretation:unremarkable Performing Lab: Notes/Report: unremarkable H-Vancomycin, Trough Reviewed date:01/15/2025 11:05:44 AM Interpretation: Performing Lab: Notes/Report: VANCT 10.2 5.0-10.0 ug/mL H-CMP Reviewed date:01/12/2025 05:29:38 PM Interpretation: Performing Lab: Notes/Report: NA 135 136-145 mmol/L K 4.3 3.5-5.1 mmoL/L CL 101 98-107 mmol/L CO2 21 22.0-30.0 mmol/L GAP 17.3 5-15 mEq/L BUN 22 7-17 mg/dl CREATT 1.40 0.52-1.04 mg/dl CRCLE 54 50-200 mL/min GFRAA 44 >60 ML/MIN EGFR 37 >60 ml/min GLU 227 74-100 mg/dl CA 8.9 8.4-10.2 mg/dl BILIT 0.6 0.2-1.3 mg/dl AST 44 14-36 U/L ALT 26 12-78 U/L TP 7.1 6.3-8.2 g/dl ALB 3.7 3.5-5.0 g/dl GLOB 3.4 1.3-3.2 g/dL AGRATIO 1.1 1.1-1.8 ALP 97 38-126 U/L H-CBC Reviewed date:01/12/2025 05:29:38 PM Interpretation: Performing Lab: Notes/Report: WBC 8.3 4.8-10.8 K/mm3 RBC 3.20 4.20-5.40 M/mm3 HGB 10.3 12.2-16.2 g/dL HCT 30.6 37.0-47.0 % MCV 95.6 81-99 fl MCH 32.2 27.0-31.2 pg MCHC 33.7 31.8-35.4 g/dL RDW-SD 50.3 RDW 14.2 11.5-17.5 % PLT 252 142-424 K/mm3 MPV 9.5 7.4-10.4 fl NE% 72.3 37.0-80.0 % LY% 10.3 10-50 % MO% 12.0 1.7-9.3 % EO% 3.9 0.1-12.0 % BA% 0.4 0.1-2.0 % NRBC% 0 IG% 1.1 NE# 6.0 1.8-7.8 K/mm3 LY# 0.9 0.7-4.5 K/mm3 MO# 1.0 0.1-1.0 K/mm3 EO# 0.3 0.0-0.4 Kmm3 BA# 0.0 0-0.2 K/mm3 NRBC# 0 IG# 0.09 Influenza Screen (in house) Reviewed date:02/01/2024 11:20:49 AM Interpretation:Negative Performing Lab: Notes/Report: Negative results Neg Covid test (in house) Reviewed date:02/01/2024 11:20:28 AM Interpretation:Negative Performing Lab: Notes/Report: Negative Result: Neg Urinalysis - Inhouse Reviewed date:05/05/2024 05:47:07 PM Interpretation: Performing Lab: Notes/Report: Color/Clarity yellow/cloudy Leuk 1+ Nitrite Pos Urobili 3.2 Protein Neg pH 7.0 Blood Trace-Intact Sp. Gr. 1.015 Ketone Neg Bili Neg Gluc 2+ TEN-UTI panel Reviewed date:05/08/2024 02:00:36 PM Interpretation:Abnormal Performing Lab: Notes/Report: Abnormal H-CMP Reviewed date:01/11/2025 09:15:50 AM Interpretation: Performing Lab: Notes/Report: NA 141 136-145 mmol/L K 4.2 3.5-5.1 mmoL/L CL 102 98-107 mmol/L CO2 23 22.0-30.0 mmol/L GAP 20.2 5-15 mEq/L BUN 22 7-17 mg/dl CREATT 1.60 0.52-1.04 mg/dl CRCLE 45 50-200 mL/min GFRAA 38 >60 ML/MIN EGFR 32 >60 ml/min GLU 135 74-100 mg/dl Delta: 183 on 01/10/25-1029 CA 9.0 8.4-10.2 mg/dl BILIT 0.8 0.2-1.3 mg/dl AST 53 14-36 U/L Delta: 37 on 01/10/25-1029 ALT 25 12-78 U/L TP 6.9 6.3-8.2 g/dl ALB 3.7 3.5-5.0 g/dl GLOB 3.2 1.3-3.2 g/dL AGRATIO 1.2 1.1-1.8 ALP 96 38-126 U/L H-CBC Reviewed date:01/11/2025 09:15:50 AM Interpretation: Performing Lab: Notes/Report: WBC 9.1 4.8-10.8 K/mm3 RBC 3.19 4.20-5.40 M/mm3 HGB 10.2 12.2-16.2 g/dL HCT 30.8 37.0-47.0 % MCV 96.6 81-99 fl MCH 32.0 27.0-31.2 pg MCHC 33.1 31.8-35.4 g/dL RDW-SD 49.6 RDW 14.0 11.5-17.5 % PLT 221 142-424 K/mm3 MPV 9.7 7.4-10.4 fl NE% 69.1 37.0-80.0 % LY% 12.5 10-50 % MO% 15.8 1.7-9.3 % EO% 1.5 0.1-12.0 % BA% 0.4 0.1-2.0 % NRBC% 0 IG% 0.7 NE# 6.3 1.8-7.8 K/mm3 LY# 1.1 0.7-4.5 K/mm3 MO# 1.4 0.1-1.0 K/mm3 EO# 0.1 0.0-0.4 Kmm3 BA# 0.0 0-0.2 K/mm3 NRBC# 0 IG# 0.06 H-DIARRHEA PANEL Reviewed date:01/11/2025 09:15:50 AM Interpretation: Performing Lab: Notes/Report: CAMPYLOBACTER Not Detected NotDetected CLOSTR DIFFICIL Detected NotDetected NOTIFICATION RESULT Results called to: Rush REESE on 01/10/25 at 2249 By Shankar Gibbons [place] PLESIOMONAS Not Detected NotDetected SALMONELLA, PCR Not Detected NotDetected YERSINIA Not Detected NotDetected VIBRIO, PCR Not Detected NotDetected VIBRIO CHOLERAE Not Detected NotDetected ECOLI (EAEC) Not Detected NotDetected ECOLI (EPEC) Not Detected NotDetected ECOLI (ETEC) Not Detected NotDetected SHIGATOXIN Not Detected NotDetected ECOLI O157 Not Detected NotDetected SHIG-INVAS ECOL Not Detected NotDetected CRYPTO Not Detected NotDetected CYCLOSPORA Not Detected NotDetected EHISTOLYTICA Not Detected NotDetected GIARDIA Not Detected NotDetected ADENO STOOL Not Detected NotDetected ASTROVIRUS Not Detected NotDetected NOROVIRUS Not Detected NotDetected ROTOVIRUS A Not Detected NotDetected SAPOVIRUS Not Detected NotDetected Bone density Reviewed date:11/27/2024 03:38:01 PM Interpretation:Normal, Improved Performing Lab: Notes/Report: Normal, Improved Reason For Referral Diagnosis 1 Nausea (R11.0) Diagnosis 2 Gastroesophageal ref lux disease without esophagitis (K21.9) Diagnosis 3 Pharyngeal dysphagia (R13.13) [facility] First Name Chase Referring Provider Last Name Walsh Referring Provider [facility] ctice Referred Provider DAYAN LYN Referred Provider Specialty Gastroentero logy General Notes Letitia Osei 10:57:47 AM > faxed to Dr. Lyn office, Letitia Osei 03/17/2024 2:01:41 PM > 04/11/2024 at 09:00am Referral Priority Routine Diagnosis 1 Other dysphagia (R13 .19) [facility]erring [facility] First Name Chase Referring Provider Last Name Luis A Referring Provider Speciality Family Pra ctice Referred Provider ENT, . Referred Provider Specialty ENT General Notes Letitia Osei 2024 02:41:20 PM > faxed to [facility] Farnaz EDWARDS Brynn 01/05/2025 09:38:55 AM > 01/29/2025 at 02:40pm Referral Priority Routine Medications Medication SIG (Take, Route, Frequency, Duration) Notes Start Date End Date Status Pioglitazone HCl 30 MG 1 tablet Orally O nce a day; Duration: 90 days 11/22/2024 Active sAXagliptin HCl 5 MG 1 tablet Orally Onc e a day; Duration: 90 days Active Iberogast - as directed Orally Active Beano Meltaways 450 UNIT as directed Orally Active Aspirin 81 MG 1 tablet Orally Once a day; Duration: 30 day(s) Active Probiotic - as directed Orally Active hydrALAZINE HCl 25 MG 1 tablet with food Orally Twice a day Active Calcium 600 + Minerals 600-200 MG-UNIT 1 tab(s) orally 3 times a day; Duration: 30 day(s) Active FeroSul 325 (65 Fe) MG 1 tablet Orally 3 times a day; Duration: 90 days Active Multivitamin - 1 tab(s) orally once a day; Duration: 30 day(s) Active Irbesartan 150 MG 2 tablets Orally Onc e a day Active Gemtesa 75 MG 1 tablet Orally Once a day; Duration: 90 days 07/11/2024 Active Kerendia 10 MG 1 tablet Orally Once a day; Duration: 90 days Active Trintellix 20 MG 1 tab(s) orally once a day; Duration: 90 days Active Carvedilol 25 MG 1 tablet with food Orally Twice a day; Duration: 90 days Active Amitriptyline HCl 25 MG 1 tablet at bedt samantha orally once a day (at bedtime); Duration: 90 days Active Crestor 10 MG 1 tab(s) orally once a day (at bedtime); Duration: 90 days Active Darifenacin Hydrobromide ER 15 MG 1 tablet with liquid Orally Once a day; Duration: 30 day(s) Not-Taking clonazePAM 1 MG 1 tab(s) orally 2 times a day as needed; Duration: 30 days 11/21/2024 Active Voquezna 10 MG 1 tablet Orally Once a day; Duration: 90 days Active guanFACINE HCl 1 MG 1 tablet at bedtime Orally Once a day; Duration: 90 days Active Synjardy XR 12.5-1000 MG 2 tablets with breakfast Orally Once a day; Duration: 90 days Active Immunizations Vaccine Route Administration Date Status Comme nts Tetanus Tdap-Adacel (over 7yrs) Unknown 04/08/2023 Administered Prevnar (PCV20) IM Intramuscular 12/04/2024 Administered Fluzone PF Quad (6-35 months) Unknown 11/19/2017 Administered Fluzone High Dose (65yr and older) IM Intramuscular 11/05/2016 Administered Fluzone High Dose (65yr and older) IM Intramuscular 11/22/2024 Administered COVID 19 Moderna Unknown 05/23/2020 Administered COVID 19 Moderna Unknown 06/20/2020 Administered COVID 19 Moderna Unknown 11/07/2020 Administered Problems Problem Type SNOMED Code ICD Code Onset Dates Problem Status W/U Status Risk Notes Problem Essential hypertension (29476145) Essential hypertension (I10) Active confirmed Problem Mixed anxiety and depressive disorder (864713470) Depression with anxiety (F41.8) Active confirmed Problem Body mass index 30+ - obesity (757232015) BMI 30.0-30.9,adult (Z68.30) Active confirmed Problem Overactive urinary bladder (disorder) (220524277) OAB (overactive bladder) (N32.81) Active confirmed Problem Mixed incontinence (201604647) Mixed incontinence (N39.46) Active confirmed Problem Chronic pain (63689440) Other chronic pain (G89.29) Active confirmed Problem Type II diabetes mellitus without complication (675780496) Type 2 diabetes mellitus without complication (E11.9) Active confirmed Problem Constipation (49914558) Constipation, unspecified constipation type (K59.00) Active confirmed Problem Gastroesophageal reflux disease without esophagitis (207263351) Gastroesophageal reflux disease without esophagitis (K21.9) Active confirmed Problem Low back pain (613817790) Bilateral low back pain without sciatica (M54.5) Active confirmed Problem Hyperhidrosis (800748414) 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) Active confirmed Problem Subacute vaginitis (49026930845026977) Subacute vaginitis (N76.1) Active confirmed Problem Soreness of tongue (56206128) Soreness of tongue (K14.6) Active confirmed Problem Type II diabetes mellitus without complication (190210246) Type 2 diabetes mellitus without complication, without long-term current use of insulin (E11.9) Active confirmed Problem Pharyngeal dysphagia (80174331922201) Pharyngeal dysphagia (R13.13) Active confirmed Problem Chronic anemia (022594427) Chronic anemia (D64.9) Active confirmed Problem Pure hypercholesterolemia (929412537) Pure hypercholesterolemia (E78.00) Active confirmed Problem Glossodynia (85991567) Tongue pain (K14.6) Active confirmed Problem Thyromegaly (6483117) Thyromegaly (E01.0) Active confirmed Problem Arthritis of right knee (1565951751516065) Arthritis of right knee (M17.11) Active confirmed Problem Allergic rhinitis (62795742) Allergic rhinitis, unspecified seasonality, unspecified trigger (J30.9) Active confirmed Problem Type II diabetes mellitus without complication (451806401) Type 2 diabetes mellitus without complication, unspecified whether shelter insulin use (E11.9) Active confirmed Problem Chronic kidney disease stage 3B (disorder) (084130479) Stage 3b chronic kidney disease (N18.32) Active confirmed Problem Chronic kidney disease stage 3A (541772061) Stage 3a chronic kidney disease (N18.31) Active confirmed Problem Chronic kidney disease stage 3B (disorder) (114176164) Stage 3b chronic kidney disease (CKD) (N18.32) Active confirmed Problem Taste sense altered (473988026) Taste sense altered (R43.2) Active confirmed Problem Urinary incontinence (865400620) Urinary incontinence in female (R32) Active confirmed Vital Signs Heart Rate 80 /min 11/22/2024 Blood pressure diastolic 68 mm Hg 11/22/2024 Height 66.25 in 11/22/2024 Blood pressure systolic 120 mm Hg 11/22/2024 Weight 192.8 lbs 11/22/2024 BMI 30.88 kg/m2 11/22/2024 Encounters Encounter Location Date Provider Diagnosis [facility] [address] [place], [place] [id number] 02/01/2024 Chase Walsh Acute URI J06.9 [facility] [address] [place], [place] [id number] 02/23/2024 Chase Walsh Bronchitis J40 and N ausea R11.0 [facility] [address] [place] [id number] 03/14/2024 Chase Walsh Nausea R11.0 ; Gastroesophageal reflux disease without esophagitis K21.9 ; Pharyngeal dysphagia R13.13 and Nausea and vomiting, unspecified vomiting type R11.2 [facility] [address] [place], [place] [id number] 04/03/2024 Chase Walsh Persistent cough R05 .3 [facility] [address] [place], [place] [id number] 04/21/2024 Chase Walsh Tongue pain K14.6 [facility] [address] [place], [place] [id number] 05/03/2024 Chase Walsh Acute UTI N39.0 ; Dy suria R30.0 ; Chronic cough R05.3 and Gastroesophageal reflux disease without esophagitis K21.9 [facility] [address] [place], [place] [id number] 05/23/2024 Chase Walsh Type 2 diabetes sky itus without complication E11.9 ; Essential hypertension I10 ; Pure hypercholesterolemia E78.00 ; Stage 3a chronic kidney disease N18.31 ; Gastroesophageal reflux disease without esophagitis K21.9 ; Stage 3b chronic kidney disease N18.32 ; Chronic anemia D64.9 ; BMI 28.0-28.9,adult Z68.28 and Lumbar back pain M54.50 [facility] [address] [place], [place] [id number] 06/21/2024 Chase Walsh Pain in right knee M 25.561 ; Pre-op exam Z01.818 ; Arthritis of right knee M17.11 ; Type 2 diabetes mellitus without complication E11.9 ; Essential hypertension I10 ; Gastroesophageal reflux disease without esophagitis K21.9 ; Stage 3b chronic kidney disease N18.32 ; Chronic anemia D64.9 ; Mixed incontinence N39.46 and BMI 30.0-30.9,adult Z68.30 [facility] [address] [place], [place] [id number] 07/11/2024 Chase Walsh Persistent cough R05 .3 ; Gastroesophageal reflux disease without esophagitis K21.9 ; Essential hypertension I10 ; OAB (overactive bladder) N32.81 and BMI 30.0-30.9,adult Z68.30 [facility] [address] [place], [place] [id number] 09/07/2024 Chase Walsh Herpes zoster withou t complication B02.9 and BMI 29.0-29.9,adult Z68.29 [facility] [address] [place], [place] [id number] 11/22/2024 Chase Walsh Type 2 diabetes sky itus without complication E11.9 ; Essential hypertension I10 and Encounter for immunization Z23 [facility] [address] [place], [place] [id number] 12/04/2024 Chase Walsh Encounter for immuni zation Z23 [facility] [address] [place], [place] [id number] 02/18/2024 Chase Walsh Depression with anxi ety F41.8 [facility] [address] [place] [id number] 02/18/2024 Chase Walsh [facility] [address] [place] [id number] 03/02/2024 Chase Walsh Bronchitis J40 [facility] [address] [place] [id number] 03/13/2024 Chase Walsh [facility] [address] [place] [id number] 03/31/2024 Chase Walsh Bronchitis J40 [facility] [address] [place] [id number] 04/04/2024 Chase Walsh [facility] [address] [place] [id number] 05/12/2024 Chase Walsh [facility] [address] [place] [id number] 05/15/2024 Chase Walsh Gastroesophageal ref lux disease without esophagitis K21.9 [facility] [address] [place] [id number] 05/19/2024 Chase Walsh Depression with anxi ety F41.8 [facility] [address] [place] [id number] 05/24/2024 Chase Walsh [facility] [address] [place] [id number] 06/02/2024 Chase Walsh [facility] [address] [place] [id number] 07/11/2024 Chase Walsh [facility] [address] [place], [place] [id number] 07/24/2024 Chase Walsh Screening for breast cancer Z12.39 [facility] [address] [place], [place] [id number] 07/25/2024 Chase Walsh [facility] [address] [place] [id number] 08/16/2024 Chase Walsh Depression with anxi ety F41.8 [facility] [address] [place], [place] [id number] 09/18/2024 Chase Walsh Encounter for screen ing for osteoporosis Z13.820 [facility] [address] [place], [place] [id number] 10/19/2024 Chase Walsh [facility] [address] [place] [id number] 11/21/2024 Chase Walsh Depression with anxi ety F41.8 [facility] [address] [place] [id number] 12/27/2024 Chase Walsh Other dysphagia R13. 19 [facility] [address] [place] [id number] 01/08/2025 Chase Walsh [facility] [address] [place], [place] [id number] 01/16/2025 Chase Walsh Assessments Encounter Date Diagnosis (ICD Code) Assessment Notes Treatment Notes Treatment Clinical Notes Section Notes 02/01/2024 Acute URI (ICD-10 - J06.9) 02/18/2024 Depression with anxi ety (ICD-10 - F41.8) 02/23/2024 Bronchitis (ICD-10 - J40) 02/23/2024 Nausea (ICD-10 - R11.0) 03/02/2024 Bronchitis (ICD-10 - J40) 03/14/2024 Nausea (ICD-10 - R11.0) 03/14/2024 Gastroesophageal ref lux disease without esophagitis (ICD-10 - K21.9) 05/15/2024 Gastroesophageal ref lux disease without esophagitis (ICD-10 - K21.9) 05/19/2024 Depression with anxi ety (ICD-10 - F41.8) 05/23/2024 Type 2 diabetes sky itus without complication (ICD-10 - E11.9) 05/23/2024 Essential hypertensi on (ICD-10 - I10) 03/31/2024 Bronchitis (ICD-10 - J40) 04/03/2024 Persistent cough (IC D-10 - R05.3) 04/21/2024 Tongue pain (ICD-10 - K14.6) 05/03/2024 Acute UTI (ICD-10 - N39.0) 05/03/2024 Dysuria (ICD-10 - R30.0) 06/21/2024 Pain in right knee (ICD-10 - M25.561) 06/21/2024 Pre-op exam (ICD-10 - Z01.818) Patient is of acceptable risk for proposed total knee replacement. Preop testing to be done by surgeon. 07/24/2024 Screening for breast cancer (ICD-10 - Z12.39) 08/16/2024 Depression with anxi ety (ICD-10 - F41.8) 09/07/2024 Herpes zoster withou t complication (ICD-10 - B02.9) 09/07/2024 BMI 29.0-29.9,adult (ICD-10 - Z68.29) 09/18/2024 Encounter for screen ing for osteoporosis (ICD-10 - Z13.820) 11/21/2024 Depression with anxi ety (ICD-10 - F41.8) 11/22/2024 Type 2 diabetes sky itus without complication (ICD-10 - E11.9) Not at goal today 11/22/2024 Essential hypertensi on (ICD-10 - I10) 07/11/2024 Persistent cough (IC D-10 - R05.3) 07/11/2024 Gastroesophageal ref lux disease without esophagitis (ICD-10 - K21.9) 12/04/2024 Encounter for immunization (ICD-10 - Z23) 12/27/2024 Other dysphagia (ICD -10 - R13.19) 07/11/2024 Essential hypertensi on (ICD-10 - I10) 11/22/2024 Encounter for immunization (ICD-10 - Z23) 06/21/2024 Arthritis of right k nee (ICD-10 - M17.11) 05/03/2024 Chronic cough (ICD-1 0 - R05.3) If symptoms persist will need further imaging 05/23/2024 Pure hypercholesterolemia (ICD-10 - E78.00) 03/14/2024 Pharyngeal dysphagia (ICD-10 - R13.13) 05/23/2024 Stage 3a chronic kid alexa disease (ICD-10 - N18.31) 05/03/2024 Gastroesophageal ref lux disease without esophagitis (ICD-10 - K21.9) 06/21/2024 Type 2 diabetes sky itus without complication (ICD-10 - E11.9) 07/11/2024 OAB (overactive blad brien) (ICD-10 - N32.81) 03/14/2024 Nausea and vomiting, unspecified vomiting type (ICD-10 - R11.2) 07/11/2024 BMI 30.0-30.9,adult (ICD-10 - Z68.30) 06/21/2024 Essential hypertensi on (ICD-10 - I10) 05/23/2024 Gastroesophageal ref lux disease without esophagitis (ICD-10 - K21.9) Symptoms, including cough has improved, patient likely has LPR, plan to continue Voquezna 05/23/2024 Stage 3b chronic kid alexa disease (ICD-10 - N18.32) 06/21/2024 Gastroesophageal ref lux disease without esophagitis (ICD-10 - K21.9) 06/21/2024 Stage 3b chronic kid alexa disease (ICD-10 - N18.32) 05/23/2024 Chronic anemia (ICD- 10 - D64.9) 05/23/2024 BMI 28.0-28.9,adult (ICD-10 - Z68.28) 06/21/2024 Chronic anemia (ICD- 10 - D64.9) 06/21/2024 Mixed incontinence (ICD-10 - N39.46) 05/23/2024 Lumbar back pain (IC D-10 - M54.50) 06/21/2024 BMI 30.0-30.9,adult (ICD-10 - Z68.30) 02/23/2024 Other If symptoms do not improve, patient may need EGD/GI evaluation Plan Of Treatment Pending Test Test Name Order Date Mammogram 07/24/2024 Modified barium swallow 07/13/2023 Insurance Providers Payer Name Payer Address Payer Phone Subscriber Number Group Number Insured Name Patient Relationship to Insured Coverage Start Date Coverage End Date MEDICARE PART B [address] [address] [place] [id number] [phone] [id number] Rosa Wray Self - patient is the insured [facility] [address] [place] [id number] Rosa Wray Self - patient is the insured Medical (General) History Medical History History ICD Code Type 2 Diabetes Hypertension Hyperlipidemia Anxiety and Depression GERD Bilateral Fibercystic Breast Allergic Rhinitis [employer] BU[employer]- Dr. Virk Low Back Pain, MRI 2009 Mitral Valve Prolapse Bilateral Knee Arthritis Chronic kidney disease anemia Surgical History Surgery Date(Month/Year) Cholecystectomy Bilateral Arterial Biopsy - Head - negat kaitlin 04/11/2020 Brain Anuerysm Removal - [facility] - Cory 05/03/2020 EGD - 2015, 2021 Bladder stimulator 2018 colonoscopy - 2015, 2021, 2023 Total Right Knee replacement - Dr. West July 2024 Hospitalization History Reason Date(Month/Year) Brain Anuerysm 05/03-
--- OUTSIDE RECORDS SUMMARY | 2025-01-26 09:11 | XMS_ITS | Continuity of Care Document ---
Author Organization [facility], SURGERY SCHEDULE Address [address] [place] [address] Care Team Providers Care Cryptoanalysis Teacher Name Role Phone DARIELA LOCKETT Primary Care Provider [phone] Assessment Encounter Date Assessment Date Assessment LastModified by Organization Details LastModified Time 01/02/2025 01/02/2025 SURGERY DATE: 01/02/2025 PREOPERATIVE DIAGNOSES: [...] one month for reevaluation of her symptoms. [email or web address] Not available 01/07/2025 10:20:24 Plan of Treatment Reminders Order Date Submit Date Provider Last Modified By Organization Details Last Modified Time Details Appointments None record ed. Lab None record ed. Referral None record ed. Procedures None record ed. Surgeries None record ed. Imaging None record ed. Medication Orders None record ed. Patient TargetsNo targets recorded. Patient InstructionsNo instructions recorded. Reason for Referral None Reported. Results Created Date Observation Date Name Description Value Unit Range Abnormal Flag Note LastModifiedBy Organization Detail LastModifiedTime 12/08/1912/07/2024 urina lysis panel , auto Unknown Analyte Clean Catch Not Available [facility] With [address], [place], [address], 12/07/2024 15:54:20 12/08/1912/07/2024 urina lysis panel , auto Unknown Analyte Yellow Not Available [address] Jose [address], [place], [address], 12/07/2024 15:54:20 12/08/19 25 12/07/2024 urina lysis panel , auto Unknown Analyte Clear Not Available [facility] With [address] Jose [address], [place], [address], 12/07/2024 15:54:20 12/08/19 25 12/07/2024 urina lysis panel , auto Unknown Analyte 1.015 Not Available [facility] With [address], [place], [address], 12/07/2024 15:54:20 12/08/19 25 12/07/2024 urina lysis panel , auto Unknown Analyte 1.003 - 1.030 Not Available [facility] With [address], [place], [address], 12/07/2024 15:54:20 12/08/19 25 12/07/2024 urina lysis panel , auto Unknown Analyte 6.0 Not Available [facility] With [address], [place], [address], 12/07/2024 15:54:20 12/08/19 25 12/07/2024 urina lysis panel , auto Unknown Analyte 5.0 - 8.0 Not Available [facility] With [address] Jose Davidson, [place], [address], 12/07/2024 15:54:20 12/08/19 25 12/07/2024 urina lysis panel , auto Unknown Analyte Negati ve Not Available [facility] With [address], [place], [address], 12/07/2024 15:54:20 12/08/19 25 12/07/2024 urina lysis panel , auto Unknown Analyte Negati ve Not Available [facility] With [address], [place], [address], 12/07/2024 15:54:20 12/08/19 25 12/07/2024 urina lysis panel , auto Unknown Analyte Negati ve Not Available [facility] With [address], [place], [address], 12/07/2024 15:54:20 12/08/19 25 12/07/2024 urina lysis panel , auto Unknown Analyte Negati ve Not Available [facility] With [address], [place], [address], 12/07/2024 15:54:20 12/08/19 25 12/07/2024 urina lysis panel , auto Unknown Analyte Negati ve Not Available [facility] With [place] [address], [place], [address], 12/07/2024 15:54:20 12/08/19 25 12/07/2024 urina lysis panel , auto Unknown Analyte Negati ve Not Available [facility] With [place] [address], [place], [address], 12/07/2024 15:54:20 12/08/19 25 12/07/2024 urina lysis panel , auto Unknown Analyte >1000 mg/dL Not Available [facility] With [facility] [address], [place], [address], 12/07/2024 15:54:20 12/08/19 25 12/07/2024 urina lysis panel , auto Unknown Analyte Normal Not Available [facility] With [facility] [address], [place], [address], 12/07/2024 15:54:20 12/08/19 25 12/07/2024 urina lysis panel , auto Unknown Analyte Negati ve Not Available [facility] With [facility] [address], [place], [address], 12/07/2024 15:54:20 12/08/19 25 12/07/2024 urina lysis panel , auto Unknown Analyte Negati ve Not Available [facility] With [facility] [address], [place], [address], 12/07/2024 15:54:20 12/08/19 25 12/07/2024 urina lysis panel , auto Unknown Analyte Normal Not Available [facility] With [facility] [address], [place], [address], 12/07/2024 15:54:20 12/08/19 25 12/07/2024 urina lysis panel , auto Unknown Analyte Normal Not Available [facility] With [address] Garcia [address], [place], [address], 12/07/2024 15:54:20 12/08/19 25 12/07/2024 urina lysis panel , auto Unknown Analyte Negati ve Not Available [facility] With [address] Garcia F, [place], [address], 12/07/2024 15:54:20 12/08/19 25 12/07/2024 urina lysis panel , auto Unknown Analyte Negati ve Not Available [facility] With [address] Garcia F, [place], [address], 12/07/2024 15:54:20 12/08/19 25 12/07/2024 urina lysis panel , auto Unknown Analyte Negati ve Not Available [facility] With [address], [place], [address], 12/07/2024 15:54:20 12/08/19 25 12/07/2024 urina lysis panel , auto Unknown Analyte Negati ve Not Available [facility] With [address], [place], [address], 12/07/2024 15:54:20 Result Notes None recorded. Problems Name Problem SNOMED Code Status Onset Date Resolution Date Notes Provider Name and Address Organization Details Recorded Time Overactive urinary bladder 444425927 Active 024 JOSE AMIN MD [address] [place] [address], [address] [place] [address] 15:59:10 Problem Notes None recorded. Procedures Surgical History Date Name Laterality Status Provider Name and Address Organization Details Recorded Time 07/11/19 25 arthroplasty of knee completed Murelene [facility] 12/07/2024 15:54:02 cholecystectomy completed Anthony Richards [facility] 11/22/2023 14:47:43 Carpal tunnel surgery completed Eani [facility] 11/22/2023 14:47:59 hernia repair completed [facility] 11/22/2023 14:48:23 biopsy completed [facility] 11/22/2023 14:48:59 Tubal Ligation completed [facility] 11/22/2023 14:49:07 procedure on finger completed [facility] 11/22/2023 14:49:32 Cerebral Aneurysm completed [facility] 11/22/2023 14:50:43 Imaging Results None recorded. Procedure Notes None recorded. Medical Equipment None Reported. Allergies Allergen ID Allergen Name Allergen Category Reaction Reaction Severity Criticality Documentation Date Start Date Code Code System Note Provider Name and Address Organization Details Recorded Time 745701 Ozempic medicatio n Not available Not available Not available 11/22/2023 RxNorm [facility] 14:43:39 Medications Name Sig Start Date Stop [...] Not Available Not Available Not Available Vitals None Recorded Social History Question Answer Notes LastModified by Organizat ion Details LastModified Time Tobacco Smoking Status Never Smoker Anthony Richards [facility] 11/22/2023 14:47:17 What Was The Date Of Your Most Recent Tobacco Screening? 06/15/2024 [email or web address] Information not available 06/15/2024 What Is Your Relationship Status? [email or web address] Information not available 11/22/2023 Has Tobacco Cessation Counseling Been Provided? No [email or web address] Information not available 11/22/2023 Sex: Unknown Functional Status Question Answer Note LastModified by Organizat ion Details LastModified Time Do you use any illicit or recreational drugs? No [email or web address] Information not available 11/22/2023 Do you or have you ever used any other forms of tobacco or nicotine? No [email or web address] Information not available 11/22/2023 What is your level of alcohol consumption? None [email or web address] Information not available 11/22/2023 Are you currently employed? No retired [email or web address] Information not available 11/22/2023 Mental Status None recorded. Family History Relationship Description Onset Age of this Age Resolved Age Notes LastModified by Organization Details LastModified Time Father No current problems or disability [email or web address] Not available 14:47:07 Mother No current problems or disability [email or web address] Not available 14:47:07 Medical History Condition Response Diabetes Y Anemia Y Arthritis Y Stroke Y Hypertension Y Gynecological HistoryNo gynecological history recorded. Obstetrics History GPAL:G 0 P 0 0 0 0 Immunizations Vaccine Type Date Status Note Provider Nam e and Address Organization Details Recorded Time Influenza, high-dose, trivalent, PF 7 completed Not Available [facility] 12/07/2024 15:51:40 Influenza, split virus, quadrivalent, PF 8 completed Not Available [facility] 12/07/2024 15:51:40 COVID-19, mRNA, LNP-S, PF, 100 mcg/0.5mL dose or 50 mcg/0.25mL dose 1 completed Not Available [facility] 12/07/2024 15:51:40 COVID-19, mRNA, LNP-S, PF, 100 mcg/0.5mL dose or 50 mcg/0.25mL dose 1 completed Not Available [facility] 12/07/2024 15:51:40 COVID-19, mRNA, LNP-S, PF, 100 mcg/0.5mL dose or 50 mcg/0.25mL dose 1 completed Not Available [facility] 12/07/2024 15:51:40 Tdap 4 completed Not Available [facility] 12/07/2024 15:51:40 Influenza, high-dose, quadrivalent, PF 5 completed Not Available [facility] 12/07/2024 15:51:40 Pneumococcal conjugate PCV20, polysaccharide ETK271 conjugate, adjuvant, PF 5 completed Not Available [facility] 12/07/2024 15:51:40 Past Encounters Encounter ID Performer Location Encounter Start Date Encounter Closed Date Diagnosis/Indication Diagnosis SNOMED-CT Code Diagnosis ICD10 Code Diagnosis IMO Codes Diagnosis Note [id number] JOSE AMIN MD [facility] [address] [facility],[place] [address] 12/07/2024 15:50:47 12/07/2024 16:37:13 Overactive urinary bladder 663938495 N32.81 454204 - Continue current medication regimen with Gemtesa, although effectiven ess is limited. - Schedule for Botox injections to manage symptoms, as discussed. Urge incon tinence of urine 97589886 N39.41 461280 - Considerat ion of Botox injections for symptom management . Nocturia 611984126 R35.1 14037 - Monitor nocturia symptoms and adjust treatment plan as necessary. [id number] JOSE AMIN MD SURGERY SCHEDULE [address] [place] [address] 01/02/2025 12:14:09 01/02/2025 12:14:53 Health Concerns Section Related Observation LastModified by Organization Detai ls LastModified Time None Recorded Concern Status LastModified by Organization Details LastModified Time None Recorded Payers Encounter Date Sequence Insurance Name Policy Number Policy Batista Covered Member ID Batista Member ID Guarantor Name 01/02/2025 1 [place] Rosa L Kamala [id number] Rosa L Kamala 01/02/2025 2 [place] [employer] [facility] [id number] Rosa Kamala [id number] Rosa L Kamala OBGyn Episode No OBEpisode recorded.
[2025-01-26 10:23] LABS: Hematocrit 33.2 % (37.0-47.0); Hemoglobin 10.6 g/dL (12.2-16.2); Immature Granulocytes % 0.2 %; Mean Corpuscular HGB Conc 31.9 g/dL (31.8-35.4); Mean Corpuscular Hemoglobin 31.5 pg (27.0-31.2); Mean Corpuscular Volume 98.8 fl (81-99); Nucleated Red Blood Cells % 0 %; Platelet Count 403 K/mm3 (142-424); Red Blood Count 3.36 M/mm3 (4.20-5.40); Red Cell Distribution Width-SD 52.7 fL; White Blood Count 4.9 K/mm3 (4.8-10.8)
[2025-01-26 10:45] LABS: Anion Gap 13.4 mEq/L (5-15); Blood Urea Nitrogen 14 mg/dl (7-17); Calcium 9.7 mg/dl (8.4-10.2); Carbon Dioxide 29 mmol/L (22.0-30.0); Chloride 100 mmol/L (98-107); Cholesterol 129 mg/dl (140-200); Creatinine,Serum 0.90 mg/dl (0.52-1.04); Estimated Glomerular Filt Rate 61 ml/min (>60); GFR (African American) 74 ML/MIN (>60); Glucose 157 mg/dl (74-100); HDL Cholesterol 36 mg/dl (40-60); Potassium 4.4 mmoL/L (3.5-5.1); Sodium 138 mmol/L (136-145); Triglycerides 168 mg/dl (30-150)
[2025-01-26 10:52] LABS: Vancomycin,Trough 10.3 ug/mL (5.0-10.0)
[2025-01-26 13:47] LABS: Hemoglobin A1C 7.3 % (4.0-6.0)
[2025-01-26 14:16] LABS: Iron 56 ug/dL (37-170)
[2025-01-26 14:26] LABS: Total Iron Binding Capacity 250 ug/dL (265-497)
[2025-01-26 14:53] LABS: Ferritin 130 ng/ml (11.1-264)
== END 2025-01-26 23:59 | disposition home or self-care (01) ==
LOC: LAB.DROPOF 09:05
PROVIDERS: PCP Family Medicine; Visit Provider Family Medicine
DX: E11.9 Type 2 diabetes mellitus without complications (principal)
CPT/HCPCS: 36415; 80048; 80061; 80202; 82728; 83036; 83540; 83550; 85025

== ENCOUNTER 2025-01-29 09:16 | Outpatient (CLI) | payer MEDICARE, BC, SELFPAY ==
--- OUTSIDE RECORDS SUMMARY | 2024-05-23 05:45 | XMS_ITS ---
Author Organization [facility] Address [address] [id number] Care Team Providers Care Technical Staff Assistant Name Role Phone Chase Gunn Primary Care Provider Allergies Allergen (clinical drug ingredient) Drug/Non Drug Allergy documented on EMR Reaction Allergy Type Onset Date Status promethazine Promethazine sore mouth Drug Allergy Active Results Component Value Reference Range Notes P-Comprehensive Metabolic Pa torsten (CMP) Reviewed date:05/24/2024 11:29:48 AM Interpretation:glu 132, BUN 25, creat 1.24, eGFR 46 Performing Lab: Notes/Report: Test performed by [facility], [address] , [address], [place] [address] Deshawn Meade MD, Golf Ball Trimmer CLIA: [id number] Sodium 141 135-145 mmol/L Potassium 5.3 3.5-5.3 [...] Interpretation:7.8 Performing Lab: Notes/Report: Test performed by [facility] [address] [place] [address] [place] [address] Deshawn Meade MD, Golf Ball Trimmer CLIA: [id number] Hemoglobin A1C 7.8 <5.7 % The following HbA1c ranges recommended by the [place] [employer] (ADA) may be used as an aid in the diagnosis of diabetes mellitus. HbA1c Suggested Diagnosis >=6.5% Diabetic 5.7% - 6.4% Pre-Diabetic <5.7% Non-Diabetic P-Lipid Panel Reviewed date:05/24/2024 11:29:48 AM Interpretation: Normal Performing Lab: Notes/Report: Test performed by [facility] [address] [place] [address] [address] Vargas C, [place] [address] Deshawn Meade MD, Golf Ball Trimmer CLIA: [id number] Cholesterol 144 <200 mg/dL Triglycerides 111 <150 [...] Normal Performing Lab: Notes/Report: Test performed by [facility] [address] [place] [address] , [address] , [place] [address] Deshawn Meade MD, Golf Ball Trimmer CLIA: [id number] TSH reflex to FT4 3.33 0.43-5.25 mU/L P-Microalbumin/Creatinine, R andom Urine Sample Reviewed date:05/24/2024 11:29:48 AM Interpretation: Normal Performing Lab: Notes/Report: Test performed by [facility] [address] [place] [address] , [place] [address] Deshawn Meade MD, Golf Ball Trimmer CLIA: [id number] Albumin/Creatinine Ratio, Urine 4 0-30 ug/m g Microalbumin, Urine, Random 0.3 Creatinine, Urine 76.8 Estimated Average Glucose Reviewed date:05/24/2024 11:29:48 AM Interpretation:177 Performing Lab: Notes/Report: Test performed by [facility], [address] , [address] , [place] [address] Deshawn Meade MD, Golf Ball Trimmer CLIA: [id number] Estimated Average Glucose (eAG) 177 Estimated Average [...] W/U Status Risk Notes Problem Chronic anemia (517221211) Chronic anemia (D64.9) Active confirmed Vital Signs Blood pressure systolic 116 mm Hg 05/24/19 25 Blood pressure diastolic 64 mm Hg 025 Heart Rate 63 /min 05/23/2024 Height 66.25 in 05/23/2024 Weight 181 lbs 05/23/2024 BMI 28.99 kg/m2 05/23/2024 Encounters Encounter Location Date Provider Diagnosis [facility] [address] [place], [place] [id number] 05/23/2024 Chase Gunn Type 2 diabetes sky [...] Notes * Rosa PERDOMODOB:1950 (74 yo F)Acc No.[id number]:05/23/2024 Progress Notes Patient: Rosa DICKERSON Provider: Alena Gunn M.D. :1950 A ge:73 Y S ex:Female Date:05/23/2024 Address:[address] [place], [place] [id number] Subjective: * Chief Complaints: * 1 . 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 * Surgical History: C holecystectomy , Bilateral Arterial Biopsy - Head - negative 04/11/2020, Brain Anuerysm Removal - [facility] 05/03/2020, EGD - 2015, 2021 , Bladder [...] a day as needed , Discontinued Nystatin 714714 UNIT/ML Suspension 5 ml Mouth/Throat Three times [...] hronic anemia - D64.9 8 . B [place] 28.0-28.9,adult - Z68.28 9 . L umbar [...] stimated Average Glucose 177 - mg/dL * [facility], IT support 05/24/2024 08:40:06 : This [...] * Images: Billing Information: * Visit Code: 80437 Office Visit, Est Pt., Level 4. * Procedure Codes: G2211 Complex e/m visit add on. 3051F HG A1C>EQUAL 7.0%<8.0%. G8752 MOST RECENT SYSTOLIC BP < 140MM HG. G8754 MOST RECENT DIASTOLIC BP < 90MM HG. * Electronic signature of Cora Gunn MD on 01/29/2025 at 09:25 AM EST Sign off status: Pending * Provider: Alena Gunn M.D. Date: 0 05/23/2024 Generated for Ying mcnamara/Matilda/Gracysmitting on: 1 04/01/2024 09:25 AM EST History and Physical Notes * [...]
--- OUTSIDE RECORDS SUMMARY | 2024-06-21 06:15 | XMS_ITS ---
Author Organization [facility] Address [address] [facility] [address] [phone] Care Team Providers Care Patient Care Name Role Phone Chase Gunn Primary Care Provider Allergies Allergen (clinical drug ingredient) Drug/Non Drug Allergy documented on EMR Reaction Allergy Type Onset Date Status promethazine Promethazine sore mouth Drug Allergy Active REASON FOR VISIT pre op physical Medications Medication SIG (Take, Route, Frequency, Duration) Notes Start Date End Date Status Kerendia 10 MG 1 tablet Orally Once a day; Duration: 90 days Active Carvedilol 25 MG 1 tablet with food Orally Twice a day; Duration: 30 days Active Voquezna 10 MG 1 tablet Orally Once a day 05/03/2024 Active sAXagliptin HCl 5 MG 1 tablet Orally Onc e a day 02/22/2024 Active Crestor 10 MG 1 tab(s) orally once a day (at bedtime) Active Trintellix 20 MG 1 tab(s) orally once a day; Duration: 90 days Active FeroSul 325 (65 Fe) MG TAKE 1 TABLET BY MOUTH THREE TIMES DAILY; Duration: 30 Active Irbesartan 150 MG 2 tablets Orally Onc e a day Active clonazePAM 1 MG 1 tab(s) orally 2 ti mes a day as needed 05/19/2024 Active Amitriptyline HCl 25 MG 1 tab(s) orally once a day (at bedtime); Duration: 90 days Active guanFACINE HCl 1 MG 1 tablet at bedtime Orally Once a day; Duration: 90 days Active Calcium 600 + Minerals 600-200 MG-UNIT 1 tab(s) orally 3 times a day; Duration: 30 day(s) Active Multivitamin - 1 tab(s) orally once a day; Duration: 30 day(s) Active Aspirin 81 MG 1 tablet Orally Once a day; Duration: 30 day(s) Active Darifenacin Hydrobromide ER 15 MG 1 tablet with liquid Orally Once a day; Duration: 30 day(s) Active hydrALAZINE HCl 25 MG 1 tablet with food Orally Twice a day; Duration: 30 day(s) Active Synjardy XR 12.5-1000 MG 2 tablets with breakfast Orally Once a day; Duration: 30 days Active Probiotic - as directed Orally Active Problems Problem Type SNOMED Code ICD Code Onset Dates Problem Status W/U Status Risk Notes Problem Chronic pain (95359263) Other chronic pain (G89.29) Active confirmed Problem Arthritis of right knee (8106902044489 102) Arthritis of right knee (M17.11) Active confirmed Problem Body mass index 30+ - obesity (948030718) BMI 30.0-30.9,adul t (Z68.30) Active confirmed Vital Signs Blood pressure systolic 112 mm Hg 06/22/19 25 Blood pressure diastolic 68 mm Hg 025 Heart Rate 62 /min 06/21/2024 Height 66.25 in 06/21/2024 Weight 188.2 lbs 06/21/2024 BMI 30.14 kg/m2 06/21/2024 Encounters Encounter Location Date Provider Diagnosis [facility] [address] [facility] [address] [phone] 06/21/2024 Chase [place] Pain in right knee M 25.561 ; Pre-op exam Z01.818 ; Arthritis of right knee M17.11 ; Type 2 diabetes mellitus without complication E11.9 ; Essential hypertension I10 ; Gastroesophageal reflux disease without esophagitis K21.9 ; Stage 3b chronic kidney disease N18.32 ; Chronic anemia D64.9 ; Mixed incontinence N39.46 and BMI 30.0-30.9,adult Z68.30 Assessments Encounter Date Diagnosis (ICD Code) Assessment Notes Treatment Notes Treatment Clinical Notes Section Notes 06/21/2024 Pain in right knee (ICD-10 - M25.561) 06/21/2024 Pre-op exam (ICD-10 - Z01.818) Patient is of acceptable risk for proposed total knee replacement. Preop testing to be done by surgeon. 06/21/2024 Arthritis of right knee (ICD-10 - M17.11) 06/21/2024 Type 2 diabetes mellitus without complication (ICD-10 - E11.9) 06/21/2024 Essential hypertension (ICD-10 - I10) 06/21/2024 Gastroesophageal reflux disease without esophagitis (ICD-10 - K21.9) 06/21/2024 Stage 3b chronic kidney disease (ICD-10 - N18.32) 06/21/2024 Chronic anemia (ICD-10 - D64.9) 06/21/2024 Mixed incontinence (ICD-10 - N39.46) 06/21/2024 BMI 30.0-30.9,adult (ICD-10 - Z68.30) Plan Of Treatment Medication Medication Name Sig Start Date Stop Date Notes Synjardy XR 12.5-1000 MG 2 tablets with breakfast Orally Once a day; Duration: 30 days Treatment Notes Assessment Notes Pre-op exam Patient is of accept able risk for proposed total knee replacement. Preop testing to be done by surgeon. Next Appt Details Follow Up: as scheduled,and prn, Reason: Progress Notes * Rosa PERDOMODOB:1950 (74 yo F)Acc No.[id number]:06/21/2024 Physical Patient: Rosa DICKERSON Provider: Alena Gunn M.D. :1950 A ge:73 Y S ex:Female Date:06/21/2024 Address:[address] [place], [place] [id number] Subjective: * Chief Complaints: * 1 . Pre op physical. * HPI: A dult Pre-Op physical: Procedure: R ight Knee replacement. D ate of Procedure:?pending. N wood of Surgeon: Iris Serrano. S leeisaiah Apnea history n o. C PAP use n o. F amily history of anesthesia intolerance n o. H as had anesthesia before y es, had NO problems with anesthesia in the past. A nticoagulant n o. A SA/Ibuprofen/NSAIDS y es Aspirin 81 mg. * ROS: D ERMATOLOGY: no R rowan. n o H jaron. G ASTROENTEROLOGY: no N ausea. n o V omiting. n o D iarrhea.? U ROLOGY: no D ifficulty urinating. n o B lood in urine. 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 * Surgical History: C holecystectomy , Bilateral Arterial Biopsy - Head - negative 04/11/2020, Brain Anuerysm Removal - [facility] 05/03/2020, EGD - 2015, 2021 , Bladder [...] orally 3 times a day , Taking guanFACINE HCl 1 MG Tablet 1 tablet at bedtime Orally Once a day , Taking FeroSul 325 (65 Fe) MG Tablet TAKE 1 TABLET BY MOUTH THREE TIMES DAILY , Taking Trintellix 20 MG Tablet 1 tab(s) orally once a day , Taking Amitriptyline HCl 25 MG Tablet 1 tab(s) orally once a day (at bedtime) , Taking clonazePAM 1 MG Tablet 1 tab(s) orally 2 times a day as needed , Taking Irbesartan 150 MG Tablet 2 tablets Orally Once a day , Taking Crestor 10 MG Tablet 1 tab(s) orally once a day (at bedtime) , Taking Synjardy XR 12.5-1000 MG Tablet Extended Release 24 Hour 2 tablets with breakfast Orally Once a day , Taking sAXagliptin HCl 5 MG Tablet 1 tablet Orally Once a day , Taking Voquezna 10 MG Tablet 1 tablet Orally Once a day , Taking Carvedilol 25 MG Tablet 1 tablet with food Orally Twice a day , Taking Kerendia 10 MG Tablet 1 tablet Orally Once a day , Medication List reviewed and reconciled with the patient * Allergies: P romethazine: sore mouth - Side Effects. Objective: * Vitals: W t: 188.2, Temp: 98.3, BP: 112/68, HR: 62, O2 Sat: 98% on RA, Nurse: CHANELLE, Ht: 66.25, BMI:30.14. * Examination: C ardiology: General Appearance: p leasant, NAD. H eart sounds: R RR, normal S1, S2. L ungs: c lear, no rales or wheezes. E xtremities: n o leg edema. Assessment: * Assessment: 1. P re-op exam - Z01.818 (Primary) 2 . P ain in right knee - M25.561 ? 3 . A rthritis of right knee - M17.11 4 . T ype 2 diabetes mellitus without complication - E11.9 5 . E ssential hypertension - I10 6. G astroesophageal reflux disease without esophagitis - K21.9 7 . S tage 3b chronic kidney disease - N18.32 8 . C hronic anemia - D64.9 ?9. M ixed incontinence - N39.46 1 0. B PA 30.0-30.9,adult - Z68.30 ? Plan: * Treatment: 2. T ype 2 diabetes mellitus without complication Refill Synjardy XR Tablet Extended Release 24 Hour, 12.5-1000 MG, 2 tablets with breakfast, Orally, Once a day, 30 days, 60, Refills 5. * Procedure Codes: G 2211 Complex e/m visit add on, 3051F HG A1C>EQUAL 7.0%<8.0%, G8420 BMI<30 AND >=22 CALC & DOCU, G8752 MOST RECENT SYSTOLIC BP < 140MM HG, G8754 MOST RECENT DIASTOLIC BP < 90MM HG * Follow Up: a s scheduled,and prn * Images: Billing Information: * Visit Code: 30966 Office Visit, Est Pt., Level 4. * Procedure Codes: G2211 Complex e/m visit add on. 3051F HG A1C>EQUAL 7.0%<8.0%. G8420 BMI<30 AND >=22 CALC & DOCU. G8752 MOST RECENT SYSTOLIC BP < 140MM HG. G8754 MOST RECENT DIASTOLIC BP < 90MM HG. * Electronic signature of Cora Gunn MD on 01/29/2025 at 09:25 AM EST Sign off status: Pending * Provider: Alena Gunn M.D. Date: 0 06/21/2024 Generated for Ying mcnamara/Matilda/Mio on: 1 04/01/2024 09:25 AM EST History and Physical Notes * HPI (History of Present Illness) Category Sub-Category Detail Notes Category Not es Adult Pre-Op physical Procedure: Right Knee replacem ent Date of Procedure: pending Sleep Apnea history no CPAP use no Name of Surgeon: Dr Gume Serrano Family history of anesthesia intolerance no Has had anesthesia before yes, had NO pr oblems with anesthesia in the past Anticoagulant no ASA/Ibuprofen/NSAIDS yes Aspirin 81 mg Examination Category Sub-Category Detail Notes Category Not es Cardiology Lungs: clear, no rales or wheezes Heart sounds: RRR, normal S1, S2 Extremities: no leg edema General Appearance: pleasant, NAD
--- OUTSIDE RECORDS SUMMARY | 2024-07-11 06:15 | XMS_ITS ---
Author Organization [facility] Address [address] [facility] [address] [phone] Care Team Providers Care Broker Agricultural Produce Name Role Phone Chase Gunn Primary Care Provider [phone] Allergies Allergen (clinical drug ingredient) Drug/Non Drug [...] Risk Notes Problem Overactive urinary bladder (disorder) (530495915) OAB (overactiv e bladder) (N32.81) Active confirmed Vital Signs Blood pressure systolic 110 mm Hg 07/12/19 25 Blood pressure diastolic 70 mm Hg 025 Heart Rate 62 /min 07/11/2024 Height 66.25 in 07/11/2024 Weight 187.8 lbs 07/11/2024 BMI 30.08 kg/m2 07/11/2024 Encounters Encounter Location Date Provider Diagnosis [facility] [address] [facility] [address] [place], [place] [id number] 07/11/2024 Chase [place] Persistent cough R05 .3 ; Gastroesophageal reflux [...] Notes * Rosa PERDOMODOB:1950 (74 yo F)Acc No.[id number]:07/11/2024 Progress Notes Patient: Rosa DICKERSON Provider: Alena Gunn M.D. :1950 A ge:73 Y S ex:Female Date:07/11/2024 Address:[address] [place], [place] [id number] Subjective: * Chief Complaints: * 1 . 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 * Surgical History: C holecystectomy , Bilateral Arterial Biopsy - Head - negative 04/11/2020, Brain Anuerysm Removal - [facility] 05/03/2020, EGD - 2015, 2021 , Bladder [...] (overactive bladder) - N32.81 5 . B [place] 30.0-30.9,adult - Z68.30 Plan: * Treatment: Value [...] G 2211 Complex e/[place], [address] CAPILLARY BLOOD DRAW, 65620 CBC WITH AUTO DIFF, G8950 PREHTN/HTN BP DOC INDCD F/U DOC, G8752 MOST RECENT SYSTOLIC BP < 140MM HG, G8754 MOST RECENT DIASTOLIC BP < 90MM HG, 1036F TOBACCO NON-USER * Follow Up: v ia phone to report test results * Images: Billing Information: * Visit Code: 52908 Office Visit, Est Pt., Level 4. * Procedure Codes: G2211 Complex e/[place]. [address] CAPILLARY BLOOD DRAW. 21222 CBC WITH AUTO DIFF. G8950 PREHTN/HTN BP DOC INDCD F/U DOC. G8752 MOST RECENT SYSTOLIC BP < 140MM HG. G8754 MOST RECENT DIASTOLIC BP < 90MM HG. 1036F TOBACCO NON-USER. * Electronic signature of Cora Gunn MD on 01/29/2025 at 09:28 AM EST Sign off status: Pending * Provider: Alena Gunn M.D. Date: 0 07/11/2024 Generated for Ying mcnamara/Matilda/Mio on: 04/01/2024 09:28 AM EST History and Physical Notes * [...]
--- OUTSIDE RECORDS SUMMARY | 2024-09-07 05:15 | XMS_ITS ---
[facility] Organization [facility] Address [address] [facility] [address] [phone] Care Team Providers Care Part Maker Name Role Phone Chase Gunn Primary Care Provider [phone] Allergies Allergen (clinical drug ingredient) Drug/Non Drug Allergy documented on EMR Reaction Allergy Type Onset Date Status promethazine Promethazine sore mouth Drug Allergy Active REASON FOR VISIT [facility] ER f/u Medications Medication SIG (Take, Route, [...] 09/07/2024 Encounters Encounter Location Date Provider Diagnosis [facility] [address] [place] [address] [place] [id number] 09/07/2024 Chase Gunn Herpes zoster withou t [...] Notes * Rosa PERDOMODOB:1950 (74 yo F)Acc No.[id number]:09/07/2024 Progress Notes Patient: Rosa DICKERSON Provider: Alena Gunn M.D. :1950 A ge:73 Y S ex:Female Date:09/07/2024 Address:[address] [place], [place] [id number] Subjective: * Chief Complaints: * 1 . [facility] ER f/u. * HPI: H PI: 73 year old female presents with c/o Here for follow up on:?09/03/2024 [facility] er visit. 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 * Surgical History: C holecystectomy , Bilateral Arterial Biopsy - Head - negative 04/11/2020, Brain Anuerysm Removal - [facility] 05/03/2020, EGD - 2015, 2021 [...] complication - B02.9 (Primary) 2 . B MS 29.0-29.9,adult - Z68.29 Plan: * Treatment: * Procedure Codes: G 2211 Complex e/m visit add on, G8420 BMI<30 AND >=22 CALC & DOCU, G8783 BP SCR PRFRM RCMDD DEFIND SCR INTVL, G8752 MOST RECENT SYSTOLIC BP < 140MM HG, G8754 MOST RECENT DIASTOLIC BP < 90MM HG * Follow Up: v ia phone to report progress * Images: Billing Information: * Visit Code: 96839 Office Visit, Est Pt., Level 3. * [...] 09/07/2024 Generated for Ying mcnamara/Matilda/eTransmitting on: 1 04/01/2024 09:25 AM EST History and Physical Notes * HPI (History of Present Illness) Category Sub-Category Detail Notes Category Not es HPI Here for follow up on: 5 [facility] er visit. Pt went to er for [...]
--- OUTSIDE RECORDS SUMMARY | 2024-11-22 05:30 | XMS_ITS ---
Author Organization [facility] Address [address] [facility] [address] [phone] Care Team Providers Care Community Board Member Name Role Phone Chase Gunn Primary Care Provider [phone] Allergies Allergen (clinical drug ingredient) Drug/Non Drug [...] 11/22/2024 Encounters Encounter Location Date Provider Diagnosis [facility] [address] [place], [place] [phone] 11/22/2024 Chase Gunn Type 2 diabetes sky [...] Notes * Rosa PERDOMODOB:1950 (74 yo F)Acc No.[id number]:11/22/2024 Progress Notes Patient: Rosa DICKERSON Provider: Alena Gunn M.D. :1950 A ge:73 Y S ex:Female Date:11/22/2024 Address:[address] [place], [place] [id number] Subjective: * Chief Complaints: * 1 . 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 * Surgical History: C holecystectomy , Bilateral Arterial Biopsy - Head - negative 04/11/2020, Brain Anuerysm Removal - [facility] 05/03/2020, EGD [...] G 2211 Complex e/[place], [address] GLUCOSE TEST, 18162 CAPILLARY BLOOD DRAW, 08692 GLYCATED HEMOGLOBIN TEST, Modifiers: QW , 3052F HG A1C>EQUAL 8.0%<EQUAL 9.0%, 1036F TOBACCO NON-USER, G8950 PREHTN/HTN BP DOC INDCD F/U DOC, G8752 MOST RECENT SYSTOLIC BP < 140MM HG, G8754 MOST RECENT DIASTOLIC BP < 90MM HG, 3074F SYST BP LT 130 MM HG, 3078F DIAST BP < 80 MM HG * Follow Up: 6 Months * Images: Billing Information: * Visit Code: 72258 Office Visit, Est Pt., Level 4. * Procedure Codes: G2211 Complex e/[place]. [address] GLUCOSE TEST. 90218 CAPILLARY BLOOD DRAW. 01648 GLYCATED HEMOGLOBIN TEST. Modifiers: QW 3052F HG A1C>EQUAL 8.0%<EQUAL 9.0%. 1036F TOBACCO NON-USER. G8950 PREHTN/HTN BP DOC INDCD F/U DOC. G8752 MOST RECENT SYSTOLIC BP < 140MM HG. G8754 MOST RECENT DIASTOLIC BP < 90MM HG. 3074F SYST BP LT 130 MM HG. 3078F DIAST BP < 80 MM HG. * Electronic signature of Cora Gunn MD on 01/29/2025 at 09:24 AM EST Sign off status: Pending * Provider: Alena Gunn M.D. Date: Generated for Ying mcnamara/Matilda/Ericitting on: 04/01/2024 09:24 AM EST History and Physical Notes * [...]
--- OUTSIDE RECORDS SUMMARY | 2024-12-04 03:45 | XMS_ITS ---
Author Organization [facility] Address 1210 [facility] [address] [phone] Care Team Providers Care Project Engineer Chemicals Name Role Phone Luis A Chase Primary Care Provider REASON FOR VISIT Pneumonia shot Medications Medication SIG (Take, Route, Frequency, Duration) Notes Start Date End Date Status Darifenacin Hydrobromide ER 15 MG 1 tablet with liquid Orally Once a day; Duration: 30 day(s) Not-Taking clonazePAM 1 MG 1 tab(s) orally 2 times a day as needed; Duration: 30 days 11/21/2024 Active hydrALAZINE HCl 25 MG 1 tablet with food Orally Twice a day Active Carvedilol 25 MG 1 tablet with food Orally Twice a day Active Irbesartan 150 MG 2 tablets Orally Onc e a day Active Amitriptyline HCl 25 MG 1 tablet at bedt samantha orally once a day (at bedtime); Duration: 90 days Active Crestor 10 MG 1 tab(s) orally once a day (at bedtime); Duration: 90 days Active Gemtesa 75 MG 1 tablet Orally Once a day; Duration: 90 days 07/11/2024 Active Trintellix 20 MG 1 tab(s) orally once a day; Duration: 90 days Active FeroSul 325 (65 Fe) MG TAKE 1 TABLET BY MOUTH THREE TIMES DAILY; Duration: 30 days Active Calcium 600 + Minerals 600-200 MG-UNIT 1 tab(s) orally 3 times a day; Duration: 30 day(s) Active Multivitamin - 1 tab(s) orally once a day; Duration: 30 day(s) Active guanFACINE HCl 1 MG 1 tablet at bedtime Orally Once a day; Duration: 90 days Active Kerendia 10 MG 1 tablet Orally Once a day; Duration: 90 days Active Voquezna 10 MG 1 tablet Orally Once a day; Duration: 90 days 05/03/2024 Active Pioglitazone HCl 30 MG 1 tablet Orally O nce a day; Duration: 90 days 11/22/2024 Active Iberogast - as directed Orally Active Beano Meltaways 450 UNIT as directed Orally Active Aspirin 81 MG 1 tablet Orally Once a day; Duration: 30 day(s) Active Probiotic - as directed Orally Active Synjardy XR 12.5-1000 MG 2 tablets with breakfast Orally Once a day Active sAXagliptin HCl 5 MG 1 tablet Orally Onc e a day Active Immunizations Vaccine Route Administration Date Status Comme nts Prevnar (PCV20) IM Intramuscular 12/04/2024 Administered Encounters Encounter Location Date Provider Diagnosis [facility] [address] [place], [place] [phone] 12/04/2024 Chase Gunn Encounter for immunization Z23 Assessments Encounter Date Diagnosis (ICD Code) Assessment Notes Treatment Notes Treatment Clinical Notes Section Notes 12/04/2024 Encounter for immunization (ICD-10 - Z23) Plan Of Treatment No Information Progress Notes * Rosa PERDOMODOB:1950 (74 yo F)Acc No.[id number]:12/04/2024 Patient: Rosa DICKERSON Provider: Alena Gunn M.D. :1950 A ge:73 Y S ex:Female Date:12/04/2024 Address:[address] [place], [place] [address] Subjective: * Chief Complaints: * 1 . Pneumonia shot. * Medical History: * Medications: T aking hydrALAZINE HCl 25 MG Tablet 1 tablet with food Orally Twice a day , Taking Irbesartan 150 MG Tablet 2 tablets Orally Once a day , Taking Carvedilol 25 MG Tablet 1 tablet with food Orally Twice a day , Taking sAXagliptin HCl 5 MG Tablet 1 tablet Orally Once a day , Taking Synjardy XR 12.5-1000 MG Tablet Extended Release 24 Hour 2 tablets with breakfast Orally Once a day , Taking Pioglitazone HCl 30 MG Tablet 1 tablet Orally Once a day , Taking Beano Meltaways 450 UNIT Tablet Disintegrating as directed Orally , Taking Iberogast - Capsule as directed Orally , Taking Probiotic - Tablet Delayed Release as directed Orally , Taking Aspirin 81 MG Tablet Delayed [...] tablet Orally Once a day , Taking Gemtesa 75 MG [...] 2 times a day as needed , Not-Taking Darifenacin Hydrobromide ER 15 MG Tablet Extended Release 24 Hour 1 tablet with liquid Orally Once a day , Medication List reviewed and reconciled with the patient Objective: * Vitals: Assessment: * Assessment: 1. E ncounter for immunization - Z23 (Primary) Plan: * Treatment: * Immunizations: Prevnar (PCV20) : 0.5 mL (Route: Intramuscular) given by CHRISTIANE Eric , Vp Product on Right Deltoid (Encounter for immunization) * Images: Billing Information: * Visit Code: * Procedure Codes: * Electronic signature of Cora Gunn MD on 01/29/2025 at 09:27 AM EST Sign off status: Pending * Provider: Alena Gunn M.D. Date: Generated for Ying mcnamara/Matilda/Mio on: 04/01/2024 09:27 AM EST
--- OUTSIDE RECORDS SUMMARY | 2024-12-27 08:31 | XMS_ITS ---
Author Organization [facility] Address 1210 [facility] [address] [phone] Care Team Providers Care Basket Weaver Name Role Phone Chase Gunn Primary Care Provider Reason For Referral Diagnosis 1 Other dysphagia (R13 .19) Referral Organization [facility] Referring Provider First Name Chase Referring Provider Last Name Luis A Referring Provider [facility] Referred Provider ENT, . Referred Provider Specialty ENT General Notes Letitia Osei 2024 02:41:20 PM > faxed to [facility] Farnaz EDWARDS Brynn 01/05/2025 09:38:55 AM > 01/29/2025 at 02:40pm Referral Priority Routine REASON FOR VISIT Needs referral Encounters Encounter Location Date Provider Diagnosis [facility] [address] [phone] 12/27/2024 Chase Gunn Other dysphagia R13. 19 Assessments Encounter Date Diagnosis (ICD Code) Assessment Notes Treatment Notes Treatment Clinical Notes Section Notes 12/27/2024 Other dysphagia (ICD-10 - R13.19) Plan Of Treatment Referrals Referral Date Details 01/03/2025 01/03/2025, . ENT Progress Notes * Rosa PERDOMODOB:1950 (74 yo F)Acc No.[id number]:12/27/2024 Patient: Rosa DICKERSON :1950 A ge:74 Y S ex:Female Address:[address] [place], [address] Subjective: * Chief Complaints: * N eeds referral * Medical History: * Surgical History: * Hospitalization/Major Diagno stic Procedure: * Medications: Objective: * Vitals: * Physical Examination: Assessment: * Assessment: 1. O ther dysphagia - R13.19 (Primary) Plan: * Treatment: * Procedure Codes: * true * Date: Generated for Ying mcnamara/Matilda/eTransmitting on: 04/01/2024 09:24 AM EST Consultation Request Notes Referral Date Referring Provider Referred Provider Not es 01/03/2025 Chase Gunn ENT, .
--- OUTSIDE RECORDS SUMMARY | 2025-01-10 | XMS_ITS | Encounter Summary ---
Author Organization [facility] Address [address] [place] [address] Care Team Providers Care Agricultural Equipment Mechanic Name Role Phone Chase Gunn MD Primary Care Provider [phone] Encounter Details Date Type Department Care Team (Latest Contact Info) Description 01/10/2025 - 01/10/2025 11:59 PM [facility] Hospital Encounter Image Record Center [address] [place] [phone] Examination Discharge Disposition: Home or Self Care Social History Tobacco Use Types Packs/Day Years Used Date Smoking Tobacco: Never Smokeless Tobacco: Never Alcohol Use Standard Drinks/Week Comments Never 0 (1 standard drink = 0.6 oz pur e alcohol) Humiliation, Afraid, Rape, a nd Kick questionnaire Answer Date Recorded Within the last year, have y ou been afraid of your partner or ex-partner? Patient unable to answer 01/16/2025 Within the last year, have y ou been humiliated or emotionally abused in other ways by your partner or ex-partner? Patient unable to answer 01/16/2025 Within the last year, have y ou been kicked, hit, slapped, or otherwise physically hurt by your partner or ex-partner? Patient unable to answer 01/16/2025 Within the last year, have y ou been raped or forced to have any kind of sexual activity by your partner or ex-partner? Patient unable to answer 01/16/2025 Hunger Vital Sign Answer Date Recorded Within the past 12 months, y ou worried that your food would run out before you got the money to buy more. Never true 01/17/20 25 Within the past 12 months, t he food you bought just didn't last and you didn't have money to get more. Never true 01/16/2025 PRAPARE - Transportation Answer Date Re corded In the past 12 months, has l ack of transportation kept you from medical appointments or from getting medications? No 10/2024 In the past 12 months, has l ack of transportation kept you from meetings, work, or from getting things needed for daily living? No 01/16/2025 Housing Stability Vital Sign Answer Ranjit e Recorded In the last 12 months, was t here a time when you were not able to pay the mortgage or rent on time? No 01/16/2025 In the past 12 months, how m any times have you moved where you were living? 0 01/16/2025 At any time in the past 12 m onths, were you homeless or living in a skilled nursing (including now)? No 01/16/2025 [facility] Utilities Answer Date Recorded In the past 12 months has th e electric, gas, oil, or water company threatened to shut off services in your home? No 01/16/2025 Comments Unknown Sex and Gender Information Value Date Recorded Sex Assigned at Not on file Legal Sex Female 6:06 PM EDT Gender Identity Not on file Sexual Orientation Not on file documented as of this encounter Functional Status * Question Answer Date of Assessment Author Precautions Fall risk;Aspiration;Environmental surveillance 01/16/2025 5:17 PM Felisa Forrest RN * Calculated C-SSRS Risk Score (Lifetime/Recent) Answer Date of Assessment Author No Risk Indicated 01/16/2025 8:00 AM Ofelia Gupta RN * Question Answer Date of Assessment Author 1. Wish to be (Past 1 Month) No 025 8:00 AM Ofelia Gupta RN 2. Non-Specific Active Suici christie Thoughts (Past 1 Month) No 01/16/2025 8:00 AM Rufino Gupta RN 6. Suicidal Behavior (Lifetime) No 8:00 AM Ofelia Gupta RN documented as of this encounter Mental Status * Question Answer Entry Date Author Precautions Fall risk;Aspiration;Environmental surveillance 01/16/2025 5:17 PM EST Felisa Hernandez, RN documented in this encounter Medications at Time of Discharge amitriptyline (Elavil) 25 MG tablet Take 1 tablet by mouth 1 time each day. aspirin 81 MG EC tablet Take 1 tablet by mouth 1 time each day. carvedilol (Coreg) 25 MG tablet Take 1 tablet by mouth 2 times a day with meals. empagliflozin-metFO RMIN ER (Synjardy XR) 12.5-1000 MG 24 hr tablet Take 2 tablets by mouth daily with breakfast. mirabegron ER (Myrbetriq) 50 MG tablet Take 1 tablet by mouth daily. 12/07/2024 03/07/19 26 pioglitazone (Actos) 30 MG tablet Take 1 tablet by mouth daily. 11/22/2024 02/20/19 26 rosuvastatin (Crestor) 10 MG tablet Take 1 tablet by mouth daily. Vortioxetine HBr 20 MG tablet Take 1 tablet by mouth daily. clonazePAM (KlonoPIN) 1 MG disintegrating tablet Dissolve 1 tablet on the tongue 2 times a day as needed for seizures. 01/17/20 25 clonazePAM (KlonoPIN) 1 MG tablet Take 1 tablet by mouth daily. 12/20/2024 01/23/20 25 ferrous sulfate 325 (65 Fe) MG tablet Take 1 tablet by mouth 3 times a day. 01/23/20 25 Finerenone 10 MG tablet Take 1 tablet by mouth daily. 01/24/20 25 mupirocin (Bactroban) 2 % ointment Apply 1 Application topically 2 (two) times a day. 01/17/20 25 pantoprazole (Protonix) 40 MG EC tablet Take 1 tablet (40 mg) by mouth 2 (two) times a day. Do not crush, chew, or split. 01/17/20 25 SITagliptin (Januvia) 100 MG tablet Take 1 tablet (100 mg) by mouth 1 (one) time each day. 01/17/20 25 traMADol (Ultram) 50 MG tablet Take by mouth. 01/17/20 25 documented as of this encounter Plan of Treatment Upcoming Encounters Date Type Department Care Team (Late st Contact Info) Description 03/27/2025 8:30 AM EST Consult [place] [facility] Clinic [address] [place] [address] Fransisco Farley MD [address] [place] [address] documented as of this encounter Procedures Procedure Name Priority Date/Time Associated Diagnosis Comments CT CERVICAL SPINE WO IV CONTRAST Routine 01/10/2025 12:00 AM EST Examination documented in this encounter Results * CT Cervical Spine wo IV Contrast (01/10/2025 12:00 AM EST) Narrative IMAGING - 01/16/2025 4:34 PM EST This study was performed at an outside facility and has been loaded into the PACS system for reference only. This order has been auto-finalized and does not contain a result. us Imaging Upload Radiant IMG CT PROCEDURES Final R esult IMAGING documented in this encounter Visit Diagnoses Diagnosis Examination Unspecified examination documented in this encounter Care Teams Agricultural Equipment Mechanic Relationship Specialty Start Date End Date Chase Gunn MD [address] [facility] [address] [place] [address] PCP - General 06/21/20 documented as of this encounter
--- OUTSIDE RECORDS SUMMARY | 2025-01-10 05:00 | XMS_ITS ---
Author Organization [facility] Address [address] [place] [address] [place] [id number] Care Team Providers Care Pattern Clerk Name Role Phone Chase Gunn Primary Care Provider Allergies Allergen (clinical drug ingredient) Drug/Non Drug Allergy documented on EMR Reaction Allergy Type Onset Date Status promethazine Promethazine sore mouth Drug Allergy Active REASON FOR VISIT BP high Encounters Encounter Location Date Provider Diagnosis [facility] [address] [facility] [address] [place] [phone] 01/10/2025 Chase Gunn Plan Of Treatment No Information Progress Notes * Rosa PERDOMODOB:1950 (74 yo F)Acc No.[id number]:01/10/2025 Progress Notes Patient: Rosa DICKERSON Provider: Alena Gunn M.D. :1950 A ge:74 Y S ex:Female Date:01/10/2025 Address:[address] [place], [place] [id number] Subjective: * Chief Complaints: * 1 . BP high. * HPI: C ardiology: 74 year old female presents with c/o Blood Pressure Elevated.? 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 * Surgical History: C holecystectomy , Bilateral Arterial Biopsy - Head - negative 04/11/2020, Brain Anuerysm Removal - [employer] - [place] 05/03/2020, EGD - 2015, 2021 , Bladder stimulator 2017, colonoscopy - 2015, 2021, 2023 , Total Right Knee replacement - Dr. West July 2024. * Hospitalization/Major Diagno stic Procedure: Alena boudreaux Anuerysm 05/03-. * Family History: F ather: , diagnosed with Heart Disease. M other: alive, diagnosed with Hypertension. S iblings: alive. C hildren: alive. 2 sister(s) - healthy. 1 son(s) , 1 daughter(s) - healthy. . * Social History: C URRENT TOBACCO USE: No . * Allergies: P romethazine: sore mouth - Side Effects. Objective: * Vitals: Assessment: Plan: * Treatment: * Images: Billing Information: * Visit Code: * Procedure Codes: * Electronic signature of Cora Gunn MD on 01/29/2025 at 09:24 AM EST Sign off status: Pending * Provider: Alena Gunn M.D. Date: 03/13/2024 Generated for Ying mcnamara/Matilda/Mio on: 04/01/2024 09:24 AM EST History and Physical Notes * HPI (History of Present Illness) Category Sub-Category Detail Notes Category Not es Cardiology Blood Pressure Elevated
--- OUTSIDE RECORDS SUMMARY | 2025-01-15 21:57 | XMS_ITS | Encounter Summary ---
Author Organization Healthcare Address [address] [place] [address] Care Team Providers Care Supervisor Capacitor Processing Name Role Phone Chase Gunn MD Primary Care Provider [phone] Reason for Referral * Consultation (Routine) - Authorized Specialty Diagnoses / Procedures Referred By Contac t Referred To Contact Infectious Diseases Diagnoses MRSA bacteremia Postoperative sepsis (CMS/HCC) Merlin Massey MD [address] [place] [address] Phone: tel: fax: Referral ID Status Reason Start Date Expiration Date Visits Requested Visits Authorized [id number] Authorized Specialty Services Required 5 07/25/2026 1 1 * Consultation (Routine) - Authorized Specialty Diagnoses / Procedures Referred By Contac t Referred To Contact Neurosurgery Diagnoses MRSA bacteremia Postoperative sepsis ([facility]/HCC) Merlin Massey MD [address] [place] [address] Phone: tel: fax: Referral ID Status Reason Start Date Expiration Date Visits Requested Visits Authorized [id number] Authorized Specialty Services Required 5 07/25/2026 1 1 Scheduling Instructions Fransisco Farley MD- s/p Spinal stimulator explant Reason for Visit * Auth/Cert (Routine) Specialty Diagnoses / Procedures Referred By Contac t Referred To Contact Diagnoses Sepsis ([facility]) infected spinal cord stimulator, MRSA Demar Jiménez MD [address] [place] [address] Phone: tel: fax: [facility] Inpatient [address] [place] [address] Referral ID Status Reason Start Date Expiration Date Visits Re quested Visits Authorized [id number] 1 1 Encounter Details Date Type Department Care Team (Latest Contact Info) Description 01/15/2025 9:57 PM EST - 01/23/2025 1:13 PM EST Hospital Encounter [facility] Inpatient [address] [place] [address] Fransisco Farley MD [address] [place] [address] Demar Jiménez MD [address] [place] [address] Cleve Deleon MD [address] [place] [address] Merlin Massey MD [address] [place] [address] MRSA bacteremia (Primary Dx); Postoperative sepsis ([facility]) [T81.44XA]; Cellulitis of back except buttock Discharge [...] any time in the past [address] [facility], were you homeless or living in a correction (including now)? No 01/16/2025 [facility] Utilities Answer Date Recorded In the [...] Answer Date of Assessment Author Precautions Fall risk;[facility] surveillance 01/23/2025 8:00 AM Ariadne Horner RN [...] Question Answer Entry Date Author Precautions Fall risk;[facility] surveillance 01/23/2025 8:00 AM Ariadne Horner RN [...] from the original note were not included. [id number] What is Sepsis? Sepsis is a very [...] (ICU). Last Reviewed Date: 2024 00:00:00 ?? [id number] [employer]. All rights reserved. This information is not intended as a substitute for professional medical care. Always follow your healthcare professional's instructions. * [facility] - Jerome Henderson RN - 01/23/2025 12:18 PM EST Images from the original note were not included. 77799 Understanding Sepsis Sepsis is a life-threatening problem [...] . Last Reviewed Date: 2024 00:00:00 ?? [id number] [employer]. All rights reserved. This information is not intended as a substitute for professional medical care. Always follow your healthcare professional's instructions. * Inga LozanoSHAHRAM - Jerome Henderson RN - 01/23/2025 12:18 PM EST Images from the original note were not included. [id number] Bacteremia, Suspected (Adult) Bacteremia is a bacterial [...] infection (pneumonia) ? Infection of a medical library assistant placed in a vein or the bladder [...] provider Last Reviewed Date: 2024 00:00:00 ?? [id number] [employer]. All rights reserved. This information is not intended as a substitute for professional medical care. Always follow your healthcare professional's instructions. * Progress Notes - Amanda Meza RN - 01/23/2025 10:13 AM EST Case Management Discharge Note Rosa Perdomo 74 y.o. female CSN: [id number] Admission: 01/15/2025 9:57 PM Primary Problem: Postoperative sepsis ([facility]/HCC) Primary Customer Advisor Specialist: Patient is going to [facility] where staff can assist with care needs Assistance Available at Discharge: Current Outpatient/Agency/Support Group: clinic(s), DME Availability of Care Givers (#Hours): 24 hours (staff at [facility]) Family/Customer Advisor Specialist(s) Willingness Assessed to care for patient at home: Yes Family/Customer Advisor Specialist(s) Readiness Assessed to care for patient at home: Yes Housing Circumstances-Z Codes: Housing Circumstances (select all that apply): None Applicable Patient Referred to Financial or Community Resources: No community resources needed at this time. Going to [facility] Discharge Facility/Level of Care Needs: Discharge Facility/Level of Care Needs: 3-Fci Facility ([facility]) Patient's Choice of Community Agency(s): Patient's Choice of Community Agency(s): [facility] Patient/Family Anticipated Services at Transition: Patient/Family Anticipated Services at Transition: rehabilitation services, group home ([facility]) DME/Equipment Needed after Discharge: Equipment Currently Used at Home: walker, rollator, shower chair Equipment Needed After Discharge: other (see comments) (per [facility]) Readmission Within the Last 30 Days: Readmission Within the Last 30 Days: no previous admission in last 30 days Medicare Documentation: Medicare Second Notice?: Yes Date Second Notice Completed: 01/22/25 Time Second Notice Completed: 1111 Medicare Second Notice Recieved By: patient Follow-up: Chase Gunn MD [address] [facility] [address] [facility] [address] Discharge Transportation: Transportation Anticipated: other (see comments) (W/C transport, package pick up at 2 pm.) Transportation Home at Discharge: [...] Has Acute recs, but request DESTINEY at [facility]. Per admissions (Stacey), they can accept patient today. Patient will need to be on Vancomycin for discharge, not Dapto. Number for report: [phone] (Unit 1) [place] Summary: [phone] Narcs: [facility] in [place] Transport: Time for pickup changed to today 01/23 at 2 pm in the [place] lounge. Nurse, Stacey DANIELS (facility) and spouse [...] PCP name and Address: Chase Gunn MD [address] [place] [address] / [place] [address] Referring provider name and address: Chase Gunn MD [address] [place] [address] Chief Concern, Brief History of Present Illness, [...] at discharge. She was discharged to a group home facility with a plan for continued IV [...] 01/31/2025 1:00 PM Dona Nava PA [id number] [place] Test Results Pending At Discharge Pending Labs [...] present. Discharge Disposition/Condition Disposition: Nursing facility (specify) [facility] Condition: Stable (s/sx potential problems absent or [...] Ongoing, Progressing Intervention: Promote Activity and Functional [place] Flowsheets Taken 01/22/20252050 Self-Care Promotion: independence encouraged [...] Walker DO Infectious Disease Fellow, PGY-5 Pager: [phone] Epic Chat Preferred * Asher Fraser DO [...] OPAT Team Attn: Dr. Sinha Fax #: [phone] Appointments: Co-clinic with JORGE Keating, & Dr. Sinha on 01/31/2025 at 1:00pm at: [facility]: [address] [place] [address] (Select Option 3 for IV Antibiotic / PICC line related issues) For questions regarding OPAT prior to discharge, reach out to the OPAT team via [employer] Secure Chat (Group: OPAT Referral Team). For all questions regarding OPAT after discharge should be directed to the OPAT Team at (Select Option 3 for IV Antibiotics/PICC Issues) between 8am-5pm. After 5 pm, or during weekends/ holidays, please call the paging steam conditioner operator at to reach the on-call ID [...] illness (recent C. diff), transferred here to [facility] from OSH for MRSA bacteremia. Spinal cord [...] Note Rosa Perdomo 74 y.o. female CSN: [id number] Admission: 01/15/2025 9:57 PM Primary Problem: Postoperative sepsis (CMS/[facility]) Anticipated Discharge Date: 01/21 Has Discharge Plans Changed? No - [facility] Medicare Second Notice: Medicare Medicare Second [...] Has Acute recs, but request DESTINEY at [facility]. Per admissions (Stacey), they cannot accept patient on Daptomycin. Discussed with , will remain on Vancomycin through 02/13/24. Number for report: [phone] (Unit 1) [place] Summary: [phone] Narcs: [facility] in [place] Transport: Patient not qualifying for ambulance. Concerns over transfers into vehicle. Meets < 300% [facility]PG. W/C Transport arranged via CM office with [facility] for 01/23 at 11 am. Nurse, [...] Review Outcome: Ongoing, Progressing Flowsheets (Taken 01/22/2025 4456) Progress: no change Outcome Evaluation: Care plan reviewed with patient Goal: Patient-Specific Goal (Individualized) Outcome: Ongoing, Progressing Flowsheets (Taken 01/22/2025 6346) Patient/Family-Specific Goals (Include Timeframe): Patients pain will [...] Ongoing, Progressing Intervention: Promote Activity and Functional [place] Flowsheets Taken 01/22/2025 0756 Adaptive Equipment Use: use encouraged Taken 01/22/2025 0748 Activity Assistance Provided: assistance, 2 people Self-Care Promotion: independence encouraged adaptive equipment use encouraged * Care Plan - Christina rFitz RN - 01/22/2025 2:28 AM EST Problem: [...] Ongoing, Progressing Intervention: Promote Activity and Functional [place] Flowsheets Taken 01/22/2025224 Self-Care Promotion: independence encouraged [...] illness (recent C. diff), transferred here to [facility] from OSH for MRSA bacteremia. Spinal cord [...] hx of incontinence - Eventually needing a Snaz placed 01/20 - UA shows greater than [...] Ongoing, Progressing Intervention: Promote Activity and Functional [place] Flowsheets (Taken 01/21/2025 1128) Activity Assistance Provided: [...] Ongoing, Progressing Intervention: Promote Activity and Functional [place] Flowsheets Taken 01/20/20252101 Self-Care Promotion: independence encouraged BADL personal objects within reach Taken 01/20/20251999 Activity Assistance Provided: assistance, 2 people * Procedures - Cailin Ha RN - 01/20/2025 5:07 PM ESTAssociated Order(s): Insert PICC line Insert PICC line Date/Time: 01/20/2025 5:08 PM Performed by: Cailin Ha RN Authorized by: Cleve Deleon MD [place] Protocol: Verbal consent obtained?: Yes Written consent [...] preference. Patient position: Supine Catheter Lot #: [id number] Catheter career development engineer: Shopt[employer] Catheter placed: Single lumen Catheter size: 4 [...] illness (recent C. diff), transferred here to [facility] from OSH for MRSA bacteremia. Spinal cord [...] Ongoing, Progressing Intervention: Promote Activity and Functional [place] Flowsheets (Taken 01/20/20251012) Activity Assistance Provided: assistance, [...] Ongoing, Progressing Intervention: Promote Activity and Functional [place] Flowsheets Taken 01/20/2025 020 Self-Care Promotion: BADL [...] Note Rosa Perdomo 74 y.o. female CSN: [id number] Admission: 01/15/2025 9:57 PM Primary Problem: Postoperative sepsis (CMS/HCC) Anticipated Discharge Date: 01/21 Has Discharge Plans Changed? No - home or agreeable to SNF (requesting [facility] if needed) Medicare Second Notice: Medicare [...] is no recent study available for direct xwjw-fm-atin comparison. CT Lumbar Spine w IV Contrast [...] Value Units Date/Time Blood Culture (Aerobic/Anaerobet Set) [[id number]] Collected: 01/18/25 1323 Order Status: Sent Specimen: Blood, Venous Fungal Culture, Routine [[id number]] Collected: 01/16/25 1605 Order Status: Completed Specimen: Abscess from Back, Lower Updated: 01/18/25 1041 Culture No Fungal Growth <1 Week Fungal Culture, Tissue and DEANDRE [[id number]] Collected: 01/16/25 1614 Order Status: Completed Specimen: Foreign Body from Back, Lower Updated: 01/18/25 1022 Culture Reading Mycological 4 Weeks No Fungal Growth <1 Week DEANDRE Source not suitable for smear Blood Culture (Aerobic/Anaerobet Set) [[id number]] Collected: 01/16/25 0128 Order Status: Completed Specimen: Blood from Hand, Right Updated: 01/18/25 0403 Culture No growth at day 2 Routine Culture and Gram Stain [[id number]] (Abnormal) Collected: 01/16/25 161 Order Status: Completed Specimen: Foreign Body from Back, Lower Updated: 01/17/25 1327 Culture Heavy Growth 4+ Biotype 1 Staphylococcus aureus 2+ Biotype 2 Staphylococcus aureus Abscess Culture and Gram Stain [[id number]] (Abnormal) Collected: 01/16/25 160 Order Status: Completed [...] Non Respiratory Source and Acid Fast Stain [[id number]] Collected: 01/16/25 161 Order Status: Completed Specimen: Foreign Body from Back, Lower Updated: 01/17/25 0557 Acid Fast Stain Source not suitable for smear Anaerobic Culture [[id number]] Collected: 01/16/25 160 Order Status: Sent Specimen: Abscess from Back, Lower Updated: 01/16/25 1710 AFB Culture, Non Respiratory Source and Acid Fast Stain [[id number]] Collected: 01/16/25 160 Order Status: Canceled Specimen: Abscess from Back, Lower Updated: 01/16/25 1710 Fungal Culture, Sterile Body Fluid (NOT CSF) and DEANDRE [[id number]] Collected: 01/16/25 1605 Order Status: Canceled Specimen: Abscess from Back, Lower Updated: 01/16/251709 Anaerobic Culture [[id number]] Collected: 01/16/25 1614 Order Status: Sent Specimen: Foreign Body from Back, Lower Updated: 01/16/25 171 Antimicrobials: -- Vancomycin IV 1500mg Q24H 01/16 - present -- Cefepime IV 2g Q12H 01/16 - 01/17 -- Metronidazole PO 500mg Q8H 01/16 - 01/17 Assessment: Patient Summary: Rosa Perdomo is a 74 y.o. female with history of DM2, hypertension, depression and anxiety, GERD was transferred to [facility] from outside facility for concern of MRSA bacteremia on 01/15. About 3 weeks ago she underwent spinal cord stimulator placement for spinal arthritis pain management. Blood cultures obtained at the facility (01/14) showed MRSA and she was transferred to [facility] for further management. Blood cultures collected at [facility] on 01/16 show NGTD. VINCENT took her [...] in their operative note. No indication of SCIENCE WRITER involvement. OPAT orders are in - will [...] Note Rosa Perdomo 74 y.o. female CSN: [id number] Room/Bed 135/135A Nutrition evaluation type: follow-up Reason for evaluation: Hospital course: 74 y/o F presented as a transfer from OSH for MRSA bacteremia. 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 S/p device explantation on 01/16/25 with Neurosurgery. [...] Supplemental oxygen O2 Delivery Method: Nasal cannula [place] Coma Scale Score: 15 Isael Scale Score: [...] 37.74 Weight Evaluation: Obese-Class 2 (BMI 35-39.9) [place] Body Weight (kg): 52.2 Percent [place] Body Weight: 185 Adjusted Body Weight (kg): 63.4 Wt Readings from Last 10 Encounters: 01/16/25 96.6 kg (213 lb) 07/30/22 89.8 kg (198 lb) Estimated Needs: Metabolic Cart Study Results: Current Nutrition Intake: Diet Order: Adult Diet Diet Texture: Regular Adult Carbohydrate Restriction: Consistent CHO 2 (4076-5283 Feng, 80 g/meal) Percent Meals Eaten (%): 82% avg x 4 meals Diet Experience and Nutrition History: Diet Education Provided: Will monitor Pertinent home medications: Baptism needs: Nutrition Focused Physical Exam: Physical exam [...] Ongoing, Progressing Intervention: Promote Activity and Functional [place] Flowsheets Taken 01/19/2025912 Adaptive Equipment Use: used [...] Ongoing, Progressing Intervention: Promote Activity and Functional [place] Flowsheets Taken 01/18/20251958 Self-Care Promotion: independence encouraged [...] illness (recent C. diff), transferred here to [facility] from OSH for MRSA bacteremia. Spinal cord [...] 01/18/2025 2:30 PM EST Pastoral Care Note Perl Programmer made follow up visit with Rosa and introductory visit with her family. They are aware ofPastoral Services and availability. Referral From: Perl Programmer Initiated Pastoral Care Provided For: Patient, Spouse, Child(odalis) Patient Profile: Consult Reasons: Initial visit Spiritual Assessment: Support Systems/ Spiritual Resources: Prayer Spiritual Needs: Emotional support Spiritual Issues: Change/ transition Interventions: Interventions Provided: Introduced Patient/Family to Perl Programmer Services Pastoral Care Outcomes: Patient Outcomes: Is knowledgeable about [facility] Giancarlo Pradhan * Procedures - Ethel [...] PACS * Progress Notes - Renae Resendiz, DERRICK MAN, EDVIN - 01/18/2025 12:53 PM EST Images [...] is no recent study available for direct stdc-fv-htrq comparison. CT Lumbar Spine w IV Contrast [...] Value Units Date/Time Blood Culture (Aerobic/Anaerobet Set) [[id number]] Collected: 01/18/25 1323 Order Status: Sent Specimen: Blood, Venous Fungal Culture, Routine [[id number]] Collected: 01/16/25 1605 Order Status: Completed Specimen: Abscess from Back, Lower Updated: 01/18/25 1041 Culture No Fungal Growth <1 Week Fungal Culture, Tissue and DEANDRE [[id number]] Collected: 01/16/25 1614 Order Status: Completed Specimen: Foreign Body from Back, Lower Updated: 01/18/25 1022 Culture Reading Mycological 4 Weeks No Fungal Growth <1 Week DEANDRE Source not suitable for smear Blood Culture (Aerobic/Anaerobet Set) [[id number]] Collected: 01/16/25 0128 Order Status: Completed Specimen: Blood from Hand, Right Updated: 01/18/25 0403 Culture No growth at day 2 Routine Culture and Gram Stain [[id number]] (Abnormal) Collected: 01/16/25 1614 Order Status: Completed Specimen: Foreign Body from Back, Lower Updated: 01/17/25 1327 Culture Heavy Growth 4+ Biotype 1 Staphylococcus aureus 2+ Biotype 2 Staphylococcus aureus Abscess Culture and Gram Stain [[id number]] (Abnormal) Collected: 01/16/25 1605 Order Status: Completed [...] Non Respiratory Source and Acid Fast Stain [[id number]] Collected: 01/16/251613 Order Status: Completed Specimen: Foreign Body from Back, Lower Updated: 01/17/25 0557 Acid Fast Stain Source not suitable for smear Anaerobic Culture [[id number]] Collected: 01/16/251604 Order Status: Sent Specimen: Abscess from Back, Lower Updated: 01/16/251709 AFB Culture, Non Respiratory Source and Acid Fast Stain [[id number]] Collected: 01/16/251604 Order Status: Canceled Specimen: Abscess from Back, Lower Updated: 01/16/251709 Fungal Culture, Sterile Body Fluid (NOT CSF) and DEANDRE [[id number]] Collected: 01/16/251604 Order Status: Canceled Specimen: Abscess from Back, Lower Updated: 01/16/251709 Anaerobic Culture [[id number]] Collected: 01/16/251613 Order Status: Sent Specimen: Foreign Body from Back, Lower Updated: 01/16/251709 Antimicrobials: -- Vancomycin IV 1500mg Q24H 01/16 - present -- Cefepime IV 2g Q12H 01/16 - 01/17 -- Metronidazole PO 500mg Q8H 01/16 - 01/17 Assessment: Patient Summary: Rosa Perdomo is a 74 y.o. female with history of DM2, hypertension, depression and anxiety, GERD was transferred to [facility] from outside facility for concern of MRSA bacteremia on 01/15. About 3 weeks ago she underwent spinal cord stimulator placement for spinal arthritis pain management. Blood cultures obtained at the facility (01/14) showed MRSA and she was transferred to [facility] for further management. Blood cultures collected at [facility] on 01/16 show NGTD. NSGY took her [...] in their operative note. No indication of SCIENCE WRITER involvement. OPAT orders are in - will [...] kidney disease) stage 3, GFR 30-59 ml/min ([facility]/HCC), Depression, Diabetes mellitus, Dyspnea, HLD (hyperlipidemia), HTN [...] days. Participants in Care Family/Caregiver Present: No Medical Insurance Biller: Not Applicable Presentation Oxygen Therapy: Supplemental oxygen [...] Spouse Level of Mobility: Ambulatory- community Mobility [place]: Independent gait without device History of Falls: [...] Mobility Bed Mobility Exam: Scooting/Bridging Level of [place]: Dependent (scooting hips forward to edge of bed) Physical/Nonphysical Assist: Verbal Cues, Nonverbal cues (demo/gestures), Maximal cues, Additional assist utilized for safety Bed Mobility Exam: Supine to Sit Level of [place]: Moderate assist (50% patient's effort) Physical/Nonphysical Assist: HOB elevated, Moderate cues, Verbal Cues Assistive Device: Bed rails Transfers Transfer Exam: Sit to stand Level of [place]: Moderate assist (50% patient's effort) (x2 reps from edge of bed - 1st rep MATERIALS HANDLER, 2nd rep to RW) Physical/Nonphysical Assist: Verbal Cues, Maximal cues, Additional assist utilized for safety Assistive Device: Walker, rolling Transfer Exam: Stand to Sit Level of [place]: Moderate assist (50% patient's effort) (poorly controlled descent) Physical/Nonphysical Assist: Verbal Cues, Maximal cues, Additional assist utilized for safety Assistive Device: Walker, rolling Transfer Exam: Bed to Chair/Chair to Bed Level of [place]: Moderate assist (50% patient's effort) (with significantly [...] a helper. 5 Set-up or Clean-up Assistance [place] sets up or cleans up; patient completes activity. [place] assists only prior to or following the activity. 4 Supervision or touching assistance [place] provides verbal cues and/or touching/steadying and/or contact guard assistance as patient completes activity. Assistance may be provided throughout the activity or intermittently. 3 Partial/Moderate Assistance [place] does LESS THAN HALF the effort. [place] lifts, holds or supports trunk or limbs, but provides less than half the effort. 2 Substantial/Maximal Assistance [place] does MORE THAN HALF the effort. [place] lifts or holds trunkor limbs and provides more than half the effort. 1 Dependent [place] does ALL of the effort. Patient does [...] admitted 01/15/2025 for work-up of Postoperative sepsis ([facility]). Problem List Active Hospital Problems Diagnosis Date Noted Date Diagnosed Postoperative sepsis ([facility]) 01/16/2025 Mixed hyperlipidemia 01/16/2025 Cellulitis of back except buttock 01/16/2025 Major depressive disorder with single episode, in remission ([facility]/HCC) 01/16/2025 MRSA bacteremia 01/16/2025 MADELEINE (iron deficiency anemia) 01/16/2025 Gastroesophageal reflux disease without esophagitis 01/16/2025 Transaminitis 01/16/2025 Hypertension 02/29/2024 Diabetes mellitus 02/29/2024 Procedures 01/16/2025 Procedures: EXPLORATION, WOUND, POSSIBLE SCS REMOVAL/REVISION, ALL OTHER INDICATED PROCEDURES Past Medical History Patient has a past medical history of Abnormal EKG, Anemia, Breast cyst, CKD (chronic kidney disease) stage 3, GFR 30-59 ml/min ([facility]), Depression, Diabetes mellitus, Dyspnea, HLD (hyperlipidemia), HTN (hypertension), Mitral valve prolapse, Paroxysmal A-fib, RSV (respiratory syncytial virus infection), Sciatica, SVT (supraventricular tachycardia) ([facility]), and Trigger finger. Past Surgical History Patient has a past surgical history that includes Colonoscopy; Esophagogastroduodenoscopy; Wrist surgery; Hernia repair; and Cholecystectomy. Precautions Medical Precautions: Fall precautions, Seizure precautions Subjective Pt was agreeable to therapy today. Pt was glad to get to the chair today to brush her hair and her teeth. Participants in Care Family/Caregiver Present: No Medical Insurance Biller: Not Applicable Presentation Oxygen Therapy: Supplemental oxygen [...] Spouse Level of Mobility: Ambulatory- community Mobility [place]: Independent gait without device History of Falls: [...] Mobility Bed Mobility Exam: Scooting/Bridging Level of [place]: Dependent (scooting hips forward to edge of bed) Physical/Nonphysical Assist: Verbal Cues, Nonverbal cues (demo/gestures), Maximal cues, Additional assist utilized for safety Bed Mobility Exam: Supine to Sit Level of [place]: Moderate assist (50% patient's effort) Physical/Nonphysical Assist: HOB elevated, Moderate cues, Verbal Cues Transfers Transfer Exam: Sit to stand Level of [place]: Moderate assist (50% patient's effort) (x2 reps from edge of bed - 1st rep MATERIALS HANDLER, 2nd rep to RW) Physical/Nonphysical Assist: Verbal Cues, Maximal cues, Additional assist utilized for safety Assistive Device: Walker, rolling Transfer Exam: Stand to Sit Level of [place]: Moderate assist (50% patient's effort) (poorly controlled descent) Physical/Nonphysical Assist: Verbal Cues, Maximal cues, Additional assist utilized for safety Assistive Device: Walker, rolling Transfer Exam: Bed to Chair/Chair to Bed Level of [place]: Moderate assist (50% patient's effort) (with significantly [...] below. Therapeutic Exercise (8 minutes) Access Code: [email or web address] URL: [email or web address] Date: 01/18/2025 Prepared by: Pk Exercises - [...] exercises. Pt demonstrated verbal understanding. Standardized Assessments [facility] 6-Clicks Mobility Assessment Difficulty patient has [...] 3-5 steps with a railing?: A lot [facility] 6-Clicks Mobility Assessment Total : 12 [...] Note Rosa Perdomo 74 y.o. female CSN: [id number] Admission: 01/15/2025 9:57 PM Primary Problem: Postoperative sepsis (CMS/HCC) Anticipated Discharge Date: 01/23 Has Discharge Plans Changed? No - home or agreeable to SNF (requesting [place] [facility] if needed) Medicare Second Notice: NA [...] orders and - eval pending. Patient requesting [place] [facility] if needed. CM will continue to follow for discharge needs. Addendum: PT/OT recs for Acute rehab. Difference between Acute and Subacute explained to patient. Patient states she would like to go to [place] as it is closer to home. Attempted to reach spouseper patient request to also discuss with him. Unable to reach, unable to leave . Referrals to be made for [place] when therapy notes are in. VM left for admissions at [place]. Amanda Meza RN * Care Plan - [...] Pain and Promote Comfort Flowsheets (Taken 01/17/2025 9030) Pain Management Interventions: medication (see MAR) Intervention: [...] 01/17/2025 8:45 PM EST Pastoral Care Note Perl Programmer visited with Rosa, she reports she wants a visit but this is not the best time. Chaplainwill follow up tomorrow as able. Referral From: Perl Programmer Initiated Pastoral Care Provided For: Patient Patient Profile: Consult Reasons: Initial visit Spiritual Assessment: Support Systems/ Spiritual Resources: Family Spiritual Needs: Emotional support Interventions: Interventions Provided: Introduced Patient/Family to [employer] Services Pastoral Care Outcomes: Patient Outcomes: Is knowledgeable about [facility] Giancarol Pradhan * Progress Notes - Cleve Deleon [...] illness (recent C. diff), transferred here to [facility] from OSH for MRSA bacteremia. Spinal cord [...] Single Lumen PICC Patient Specific Outpatient Circumstances: [address] [place] [address] Contact information Rosa Perdomo [phone] (home) Extended Emergency Contact Information Primary Emergency Contact: Westley Perdomo Relation: Spouse Medical Insurance Biller needed? No Secondary Emergency Contact: Oumou Ocasio [...] via secure chat or staff messaging in [employer]. OPAT Modified program for IV antimicrobial therapy [...] Willie Shrestha (insert ID provider) Fax #: [phone] Appointments: (Co-clinic 01/31/2025 Insert ID Provider; date and time) at: [facility]: [address] [address] (Select Option 3 for IV Antibiotic / PICC line related issues) For questions regarding OPAT prior to discharge, reach out to the OPAT team via [employer] Secure Chat (Group: OPAT Referral Team). For all questions regarding OPAT after discharge should be directed to the OPAT Team at (Select Option 3 for IV Antibiotics/PICC Issues) between 8am-5pm. After 5 pm, or during weekends/ holidays, please call the paging steam conditioner operator at to reach the on-call ID [...] Note Rosa Perdomo 74 y.o. female CSN: [id number] Admission: 01/15/2025 9:57 PM Primary Problem: Postoperative sepsis (CMS/HCC) Anticipated Discharge Date: 01/23 Has Discharge Plans Changed? No - home or agreeable to SNF (requesting [place] [facility] if needed) Medicare Second Notice: NA [...] orders and - eval pending. Patient requesting [place] [facility] if needed. CM will continue to [...] Please call with any questions or concerns. [phone] Collins Thorne MD Resident Physician, PGY-1 Department of Neurosurgery [facility] Cosigned by Fransisco Farley MD at [...] PM EST Operative Note Date: 01/16/2025 Location: [facility] Name: Rosa Perdomo, : 1950, Diagnoses: Pre-op Diagnosis MRSA bacteremia Infection of spinal cord stimulator, initial encounter Wound infection Post-op Diagnosis MRSA bacteremia Infection of spinal cord stimulator, initial encounter Wound infection Procedure(s): Explantation of entire spinal cord stimulator system (leads and IPG) Irrigation and debridement of midline lumbar and right paraspinal wounds Attending Surgeon(s): * Fransisco Farley - Primary Tunnel Miner(s): * Janene Terrell MD - Resident - [...] depression and anxiety, GERD was transferred to [facility] from outside facility for concern of MRSA [...] showed MRSA and she was transferred to [place] for further management. It appears that prior to the tr [facility] a PICC was placed while blood cultures were pending. Upon admission at [place], no discharge was noted, but extensive cellulitis [...] Value Units Date/Time Blood Culture (Aerobic/Anaerobet Set) [[id number]] Collected: 01/16/25 0128 Order Status: Completed Specimen: Blood from Hand, Right Updated: 01/16/25 0501 Culture Culture in lab Antimicrobials: -- Vancomycin [id number] 01/16 - present -- Cefepime IV 2g Q12H 01/16 - present -- Metronidazole PO 500mg Q8H 01/16 - present Assessment: Patient Summary: Rosa Perdomo is a 74 y.o. female with history of DM2, hypertension, depression and anxiety, GERD was transferred to [facility] from outside facility for concern of MRSA bacteremia on 01/15. About 3 weeks ago she underwent spinal cord stimulator placement for spinal arthritis pain management. Blood cultures obtained at the facility (01/14) showed MRSA and she was transferred to [place] for further management. Blood cultures collected at [place] on 01/16 show NGTD. NSGY took her [...] consultation. GENERAL ID will follow. Renae Resendiz, DERRICK MAN, DNP Infectious Diseases [1] Past Medical History: [...] using miconazole nitrate ointment BID. Wound Assessment Chase;Denuded Rebecca-Wound Assessment Red;Rash Treatments Other (Comment) (ordered [...] Note Rosa Perdomo 74 y.o. female CSN: [id number] Admission: 01/15/2025 9:57 PM Primary Problem: Postoperative sepsis (CMS/HCC) Director Digital Marketing reviewed chart and spoke with patient and spouse at bedside to complete this Initial Case Management Assessment. PCP: Chase Gunn MD Emergency Contact: Extended Emergency Contact Information Primary Emergency Contact: Westley Perdomo Relation: Spouse Medical Insurance Biller needed? No Secondary Emergency Contact: Oumou Ocasio Relation: Daughter Insurance: Primary Visit Coverage Payer Plan Sponsor Code Group Number Group Name MEDICARE MEDICARE A & B -- -- -- Primary Visit Coverage Subscriber Subscriber ID Subscriber Name Subscriber SSN Subscriber Address [id number] ROSA PERDOMO [id number] [place] [address] Secondary Visit Coverage Payer Plan Sponsor Code Group Number Group Name [facility] -- [id number] -- Secondary Visit Coverage Subscriber Subscriber ID Subscriber Name Subscriber SSN Subscriber Address [id number] WESTLEY PERDOMO -- [address] [place] [address] Patient information: Primary Caregiver: Self Accompanied by/Relationship: spouse Support System: Immediate family Daily Living Activities: Functional Status: Independent Living Arrangements: Spouse/Significant other Type of Residence: Private residence, Multi Level (lives only on first floor, ramp entry) [address] [place] [address] Smoker in the Home?: Yes Current DME: [...] HD and HI Living Will/Advance Directive/Power of Section Weaver /Guardian: Have you reviewed your Advance Directive [...] is recommended, would like to go to [place]. CM will continue to follow for discharge needs. Amanda Meza RN * Consults - Nani Leija RD - 01/16/2025 9:06 AM ESTAssociated Order(s): IP CONSULT TO NUTRITION SERVICES Adult Nutrition Evaluation Note Rosa Perdomo 74 y.o. female CSN: [id number] Room/Bed 135/135A Nutrition evaluation type: assessment Reason for evaluation: provider consult Hospital course: 74 y/o F presented as a transfer from OSH for MRSA bacteremia. 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 To OR 01/16 for exploration vs removal [...] 37.81 Weight Evaluation: Obese-Class 2 (BMI 35-39.9) [place] Body Weight (kg): 52.2 Percent Ballantine Body Weight: 185 Adjusted Body Weight (kg): 63.4 Wt Readings from Last 10 Encounters: 01/15/25 96.8 kg (213 lb 6.5 oz) 07/30/22 89.8 kg (198 lb) Estimated Needs: Metabolic Cart Study Results: Current Nutrition Intake: Diet Order: NPO Diet Experience and Nutrition History: Diet Education Provided: Will monitor Pertinent home medications: Baptism needs: Nutrition Focused Physical Exam: Physical exam [...] Please call with any questions or concerns. [phone] Collins Thorne MD Resident Physician, PGY-1 Department of Neurosurgery [facility] Attending Attestation - Fransisco Yarbrough MD: [...] illness (recent C. diff), transferred here to [facility] from OSH for MRSA bacteremia. Spinal cord [...] Family History: Family History[3] Social History: Living: [place] [address] with family Marital Status: Alcohol Use: denies [...] for: O2SAT , BD , BE , HUF7FZJ , PCO2 , PH , PO2 , ORV5LSEE Venous Blood Gas: No results found for: BDVEN , BEVEN , NII0FVU , ALR6YQD , PO2VEN , C9VGYWPJ , YPH0JOTURRC Microbiology: Results Procedure Component Value Units Date/Time Blood Culture (Aerobic/Anaerobet Set) [[id number]] Order Status: Sent Specimen: Blood, Venous Imaging [...] illness (recent C. diff), transferred here to [facility] from OSH for MRSA bacteremia. Spinal cord [...] L spine w/wo contrast pending -LR @ 100/af-xc-mvowppts as appropriate -Continuous telemetry 03/12 hospital transfer [...] APRN Department of Internal Medicine Division of [facility] Medicine Secure chat preferred [1] [...] 1 mg, Oral, BID PRN, Naina Dubois, DERRICK MAN glucose (Glutose) 40 % oral gel 15-30 [...] Consult [place] [facility] [address] [place] [address] Fransisco Farley MD [address] [place] [address] Pending Results Name Type Priority Associated Diagnoses [...] UNSOLICITED RESULTS Routine 01/16/2025 3:19 PM EST PA EXPLORE WOUND,ABDOMEN/FLANK/BA CK 01/16/2025 3:09 PM EST [...] - 99 mg/dL 01/23/2025 8:20 AM EST [facility] Comment:Accuracy of a glucos e result [...] Comment 01/23/2025 8:20 AM EST [facility]ALTH[facility]ARE LAB Spread Cutter ID Benji Gilbert 01/23/2025 8:20 AM EST [facility] Device ID [id number] 01/23/2025 8:20 AM EST [facility]ARE LAB Specimen Type POC Capillary 01/23/2025 8:20 AM EST [facility] Blood Capillary blood specimen / Unknown 01/23/2025 8:18 AM EST 01/23/2025 8:20 AM EST Merlin Massey MD LAB POINT OF CARE TE ST DOCKED DEVICE UNSOLICITED RESULTS Final Result Performing Organization Address City/State/[facility] Co de Phone Number HEALTHCARE LAB [address] [place] [address] * (ABNORMAL) POCT glucose meter (01/22/2025 8:20 [...] Comment 01/22/2025 8:26 PM EST [facility]ARE LAB Spread Cutter ID Felisa Sarmiento 025 8:26 PM EST [facility]ARE [facility] Device ID [id number] 01/22/2025 8:26 PM EST [facility] Specimen Type POC Capillary 01/22/2025 8:26 PM EST [facility] Blood Capillary blood specimen / Unknown 01/22/2025 8:20 PM EST 01/22/2025 8:26 PM EST Cleve Deleon MD LAB POINT OF CARE TE ST DOCKED DEVICE UNSOLICITED RESULTS Final Result Performing Organization Address City/[facility] Co de Phone Number [facility]ALTH[facility]ARE [facility] [address] [place] [address] * (ABNORMAL) POCT glucose meter (01/22/2025 5:05 [...] for testing. Comment 01/22/2025 5:06 PM EST [facility] Spread Cutter ID AngyJayy 01/23/20 5:06 PM EST [facility] Device ID [id number] 01/22/2025 5:06 PM EST [facility] Specimen Type POC Capillary 01/22/2025 5:06 PM EST [facility] Blood Capillary blood specimen / Unknown 01/22/2025 5:05 PM EST 01/22/2025 5:06 PM EST us Cleve Deleon MD LAB POINT OF CARE TE ST DOCKED DEVICE UNSOLICITED RESULTS Final Result Performing Organization Address City/[facility] Co de Phone Number [facility] [address] [place] [address] * (ABNORMAL) POCT glucose meter (01/22/2025 11:53 [...] for testing. Comment 01/22/2025 11:55 AM EST [facility] Spread Cutter ID Jayy Travis 01/23/20 11:55 AM EST HEALTH[facility]ARE LAB Device ID [id number] 01/22/2025 11:55 AM EST [facility] Specimen Type POC Capillary 01/22/2025 11:55 AM EST [facility] Blood Capillary blood specimen / Unknown 01/22/2025 11:53 AM EST 01/22/2025 11:55 AM EST us Cleve Deleon MD LAB POINT OF CARE TE ST DOCKED DEVICE UNSOLICITED RESULTS Final Result Performing Organization Address City/[facility] Co de Phone Number [facility] [address] [place] [address] * (ABNORMAL) POCT glucose meter (01/22/2025 7:51 AM EST) POCT Glucose 141(H) 74 - 99 mg/dL 01/22/2025 7:52 AM EST [facility] Comment:Accuracy of a glucos e result [...] for testing. Comment 01/22/2025 7:52 AM EST [facility] Spread Cutter ID Jayy Travis 01/23/20 7:52 AM EST [facility]ARE LAB Device ID [id number] 01/22/2025 7:52 AM EST [facility] Specimen Type POC Capillary 01/22/2025 7:52 AM EST [facility] Blood Capillary blood specimen / Unknown 01/22/2025 7:51 AM EST 01/22/2025 7:52 AM EST us Cleve Deleon MD LAB POINT OF CARE TE ST DOCKED DEVICE UNSOLICITED RESULTS Final Result Performing Organization Address City/[facility]/ZIP Co de Phone Number [facility] [address] [place] [address] * Vancomycin, Peak, Plasma Please draw ~2 hours after 0300 dose on 01/22 finishes infusing. Consider obtaining level via peripheral stick. If peripheral stick is not feasible, please ensure that line is flushed well prior to drawing level. Thanks! (01/22/2025 6:32 AM EST) Vancomycin, Peak, Plasma 29.1 20.0 - 40.0 ug/mL 01/22/2025 7:07 AM EST [facility] Blood Venous blood specimen / Unknown Venipuncture / Unknown 01/22/2025 6:32 AM EST 01/22/2025 6:37 AM EST Narrative [facility] - 01/22/2025 7:07 AM EST Therapeutic Peak level: 20-40ug/mL Supra-therapeutic Peak level: >40 ug/mL Cleve Deleon MD LAB BLOOD ORDERABLES Final Re sult Performing Organization Address [facility] [place] [address] * Vancomycin, Trough, Plasma Please draw ~30 minutes prior to dose due at 0300 on 01/22. ??Please do NOT hold dose awaiting level to return. Consider obtaining level via peripheral stick. If peripheralstick is not feasible, please ensure that line/p... (01/22/2025 3:04 AM EST) Pathologist [facility] Vancomycin, Trough, Plasma 13.7 10.0 - 20.0 ug/mL 01/22/2025 3:45 AM EST [facility] Blood Venous blood specimen / Unknown Venipuncture / Unknown 01/22/2025 3:04 AM EST 01/22/2025 3:15 AM EST Narrative [facility] - 01/22/2025 3:45 AM EST Therapeutic Trough level: 10-20ug/mL Supra-therapeutic Trough level: >20 ug/mL us Cleve Deleon MD LAB BLOOD ORDERABLES Final Re sult Performing Organization Address [facility] Co de Phone Number [facility] [address] [place] [address] * (ABNORMAL) POCT glucose meter (01/21/2025 9:42 PM EST) [facility] POCT Glucose 186(H) 74 - 99 mg/dL [...] Comment 01/21/2025 9:43 PM EST [facility]ALTH[facility]ARE LAB Spread Cutter ID Alice Garber 01/21/2025 9:43 PM EST [facility] Device ID [id number] 01/21/2025 9:43 PM EST [facility] Specimen Type POC Capillary 01/21/2025 9:43 PM EST [facility] Blood Capillary blood specimen / Unknown 01/21/2025 9:42 PM EST 01/21/2025 9:43 PM EST Cleve Deleon MD LAB POINT OF CARE TE ST DOCKED DEVICE UNSOLICITED RESULTS Final Result Performing Organization Address City/State/[facility] Co de Phone Number [facility] [address] [place] [address] * (ABNORMAL) POCT glucose meter (01/21/2025 5:12 PM EST) [facility] POCT Glucose 214(H) 74 - 99 mg/dL [...] 01/21/2025 5:14 PM EST [facility] Spread Cutter ID Sabine Garrett 01/21/2025 5:14 PM EST [facility] Device ID [id number] 01/21/2025 5:14 PM EST [facility] Specimen Type POC Capillary 01/21/2025 5:14 PM EST [facility] Blood Capillary blood specimen / Unknown 01/21/2025 5:12 PM EST 01/21/2025 5:14 PM EST us Cleve Deleon MD LAB POINT OF CARE TE ST DOCKED DEVICE UNSOLICITED RESULTS Final Result Performing Organization Address [facility] de Phone Number [facility] [address] [place] [address] * (ABNORMAL) POCT glucose meter (01/21/2025 12:15 [...] Comment 01/21/2025 12:20 PM EST [facility] Spread Cutter ID Alysa Quinn 01/21/2025 12:20 PM EST [facility]ARE LAB Device ID [id number] 01/21/2025 12:20 PM EST [facility] Specimen Type POC Capillary 01/21/2025 12:20 PM EST [facility] Blood Capillary blood specimen / Unknown 01/21/2025 12:15 PM EST 01/21/2025 12:20 PM EST us Cleve Deleon MD LAB POINT OF CARE TE ST DOCKED DEVICE UNSOLICITED RESULTS Final Result Performing Organization Address City/[facility] Co de Phone Number [facility] [address] [place] [address] * (ABNORMAL) POCT glucose meter (01/21/2025 8:15 [...] Comment 01/21/2025 8:19 AM EST [facility] Spread Cutter ID Alysa Quinn 01/21/2025 8:19 AM EST [facility] Device ID [id number] 01/21/2025 8:19 AM EST [facility] Specimen Type POC Capillary 01/21/2025 8:19 AM EST [facility] Blood Capillary blood specimen / Unknown 01/21/2025 8:15 AM EST 01/21/2025 8:19 AM EST us Cleve Deleon MD LAB POINT OF CARE TE ST DOCKED DEVICE UNSOLICITED RESULTS Final Result Performing Organization Address City/[facility]/ZIP Co de Phone Number [facility] [address] [place] [address] * (ABNORMAL) POCT glucose meter (01/20/2025 7:48 PM EST) [facility] POCT Glucose 188(H) 74 - 99 mg/dL 01/20/2025 7:49 PM EST [facility] Comment:Accuracy of a glucos e result [...] Comment 01/20/2025 7:49 PM EST [facility] Spread Cutter ID Silva Coates 025 7:49 PM EST [facility]ARE LAB Device ID [id number] 01/20/2025 7:49 PM EST [facility] Specimen Type POC Capillary 01/20/2025 7:49 PM EST [facility] Blood Capillary blood specimen / Unknown 01/20/2025 7:48 PM EST 01/20/2025 7:49 PM EST us Cleve Deleon MD LAB POINT OF CARE TE ST DOCKED DEVICE UNSOLICITED RESULTS Final Result [facility] [address] [place] [address] * XR Chest 1 View (01/20/2025 5:57 [...] Ha RN Authorized by: Cleve Deleon MD [place] Protocol: Verbal consent obtained?: Yes Written consent [...] preference. Patient position: Supine Catheter Lot #: [id number] Catheter career development engineer: Shoptiques Catheter placed: Single lumen Catheter size: 4 [...] POCT glucose meter (01/20/2025 5:05 PM EST) [facility] POCT Glucose 202(H) 74 - 99 mg/dL [...] 01/20/2025 5:06 PM EST [facility] Spread Cutter ID Jane Wilson 01/20/2025 5:06 PM EST [facility] Device ID [id number] 01/20/2025 5:06 PM EST [facility] Specimen Type POC Capillary 01/20/2025 5:06 PM EST [facility] Blood Capillary blood specimen / Unknown 01/20/2025 5:05 PM EST 01/20/2025 5:06 PM EST Cleve Deleon MD LAB POINT OF CARE TE ST DOCKED DEVICE UNSOLICITED RESULTS Final Result Performing Organization Address City/State/[facility] Co de Phone Number [facility] [address] [place] [address] * (ABNORMAL) POCT glucose meter (01/20/2025 11:57 AM EST) [facility] POCT Glucose 228(H) 74 - 99 mg/dL [...] 01/20/2025 11:59 AM EST [facility] Spread Cutter ID Jane Wilson 01/20/2025 11:59 AM EST [facility] Device ID [id number] 01/20/2025 11:59 AM EST [facility] Specimen Type POC Capillary 01/20/2025 11:59 AM EST [facility] Blood Capillary blood specimen / Unknown 01/20/2025 11:57 AM EST 01/20/2025 11:59 AM EST us Cleve Deleon MD LAB POINT OF CARE TE ST DOCKED DEVICE UNSOLICITED RESULTS Final Result Performing Organization Address City/[facility]/ZIP Co de Phone Number [facility] [address] [place] [address] * SEND SARA MESSAGE (01/20/2025 11:02 AM EST) Urine Urine specimen obtained by clean catch procedure / Unknown Non-blood Collection / Unknown 01/20/2025 11:02 AM EST 01/20/2025 11:06 AM EST us Cleve Deleon MD LAB URINE ORDERABLES Final Re sult Performing Organization Address [facility] de Phone Number [facility] [address] [place] [address] * (ABNORMAL) Urine Culture (01/20/2025 11:02 AM EST) Culture 10,000 - 100,000 CFU/mL Trista albicans(A) 01/22/2025 7:50 AM EST [facility] Comment:This isolate has bee n identified using the FDA Approved [employer] [place] System Urine Urine specimen obtained by clean catch procedure / Unknown Non-blood Collection / Unknown 01/20/2025 11:02 AM EST 01/20/2025 11:06 AM EST us Cleve Deleon MD LAB MICROBIOLOGY - GENERAL OR DERABLES Final Result Performing Organization Address City/[facility] Co de Phone Number [facility] [address] [place] [address] * Urinalysis Microscopic Examination (01/20/2025 11:02 AM EST) Urine Urine specimen obtained by clean catch procedure / Unknown Non-blood Collection / Unknown 01/20/2025 11:02 AM EST 01/20/2025 11:06 AM EST us Cleve Deleon MD LAB URINE ORDERABLES Final Re sult Performing Organization Address City/[facility]/ZIP Co de Phone Number [facility] [address] [place] [address] * Urine Avery Panel (01/20/2025 11:02 AM EST) Extra Sent for Culture 01/20/2025 1:02 PM EST [facility] Urine Urine specimen obtained by clean catch procedure / Unknown Non-blood Collection / Unknown 01/20/2025 11:02 AM EST 01/20/2025 11:06 AM EST us Cleve Deleon MD LAB URINE ORDERABLES Final Re sult Performing Organization Address [facility]/ZIP Co de Phone Number [facility] [address] [place] [address] * (ABNORMAL) Urinalysis with reflex microscopic (Culture NOT Included) (01/20/2025 11:02 AM EST) Color, Urine Yellow LAB URINALYSIS - AUTOMATED METHOD 01/20/2025 11:24 AM [facility] [facility] LAB Clarity, Urine Cloudy LAB URINALYSIS - AUTOMATED METHOD 01/20/2025 11:24 AM [facility] Spec [place], Urine 1.017 1.005 - 1.030 LAB URINALYSIS - AUTOMATED METHOD 01/20/2025 11:24 AM [facility] pH, Urine 6.5 5.0 - 8.0 LAB URINALYSIS - AUTOMATED METHOD 01/20/2025 11:24 AM [facility] Protein, Urine Trace(A) Negative mg/dL LAB URINALYSIS - AUTOMATED METHOD 01/20/2025 11:24 AM [facility] Glucose, Urine >=1000(A) Negative mg/dL LAB URINALYSIS - AUTOMATED METHOD 01/20/2025 11:24 AM [facility] Ketones, Urine Negative Negative mg/dL LAB URINALYSIS - AUTOMATED METHOD 01/20/2025 11:24 AM [facility] Blood, Urine Trace(A) Negative LAB URINALYSIS - AUTOMATED METHOD 01/20/2025 11:24 AM [facility] Bilirubin, Urine Negative Negative LAB URINALYSIS - AUTOMATED METHOD 01/20/2025 11:24 AM EST [facility] Urobilinogen, Urine 0.2 0.2 to 1.0 mg/dL LAB URINALYSIS - AUTOMATED METHOD 01/20/2025 11:24 AM EST [facility] Leukocytes, Urine Small(A) Negative LAB URINALYSIS - AUTOMATED METHOD 01/20/2025 11:24 AM EST [facility] Nitrite, Urine Negative Negative LAB URINALYSIS - AUTOMATED METHOD 01/20/2025 11:24 AM EST [facility] RBC, Urine 2 0 to 3 /HPF LAB URINALYSIS - AUTOMATED METHOD 01/20/2025 11:24 AM EST [facility] WBC, Urine >50(A) 0 to 5 /HPF LAB URINALYSIS - AUTOMATED METHOD 01/20/2025 11:24 AM EST [facility] Squamous Epithelial Cells 0 - 2 0 to 5 /HPF LAB URINALYSIS - AUTOMATED METHOD 01/20/2025 11:24 AM EST [facility] Hyaline Casts 3 - 5 0 to 5 /LPF LAB URINALYSIS - AUTOMATED METHOD 01/20/2025 11:24 AM EST [facility] Bacteria, Urine Negative Negative LAB URINALYSIS - AUTOMATED METHOD 01/20/2025 11:24 AM EST [facility] Yeast (Budding and/or Pseudohyphae) Present(A) Absent LAB URINALYSIS - AUTOMATED METHOD 01/20/2025 11:24 AM EST [facility] Urine Urine specimen obtained by clean catch procedure / Unknown Non-blood Collection / Unknown 01/20/2025 11:02 AM EST 01/20/2025 11:06 AM EST us Cleve Deleon MD LAB URINE ORDERABLES Final Re sult [facility] [address] [place] [address] * (ABNORMAL) POCT glucose meter (01/20/2025 8:03 [...] Comment 01/20/2025 8:05 AM EST [facility] Spread Cutter ID Jane Wilson 01/20/2025 8:05 AM EST [facility] LAB Device ID [id number] 01/20/2025 8:05 AM EST [facility] LAB Specimen Type POC Capillary 01/20/2025 8:05 AM EST [facility] Blood Capillary blood specimen / Unknown 01/20/2025 8:03 AM EST 01/20/2025 8:05 AM EST us Cleve Deleon MD LAB POINT OF CARE TE ST DOCKED DEVICE UNSOLICITED RESULTS Final Result Performing Organization Address [facility]/ZIP Co de Phone Number [facility] [address] [place] [address] * (ABNORMAL) Creatine Kinase (CK), Total (01/20/2025 5:02 AM EST) Creatine Kinase, Plasma 290(H) 37 - 168 U/L 01/20/2025 5:37 AM EST [facility] Blood Venous blood specimen / Unknown Venipuncture / Unknown 01/20/2025 5:02 AM EST 01/20/2025 5:07 AM EST us Cleve Deleon MD LAB BLOOD ORDERABLES Final Re sult [facility] [address] [place] [address] * (ABNORMAL) Basic metabolic panel (01/20/2025 5:02 AM EST) Glucose, Plasma 151(H) 74 - 99 mg/dL 01/20/2025 5:37 AM EST [facility] BUN, Plasma 12 8 - 23 mg/dL 01/20/2025 5:37 AM EST [facility] Creatinine, Plasma 0.79 0.60 - 1.10 mg/dL 01/20/2025 5:37 AM EST [facility] BUN/Creatinine Ratio 15 01/20/2025 5:37 AM EST [facility] Sodium, Plasma 139 136 - 145 mmol/L 01/20/2025 5:37 AM EST [facility] Potassium, Plasma 3.6 3.6 - 4.9 mmol/L 01/20/2025 5:37 AM EST [facility] Chloride, Plasma 102 97 - 107 mmol/L 01/20/2025 5:37 AM EST [facility] CO2, Plasma 28 22 - 29 mmol/L 01/20/2025 5:37 AM EST [facility] Anion Gap 9 6 - 16 mmol/L 01/20/2025 5:37 AM EST [facility] Total Calcium, Plasma 8.2(L) 8.9 - 10.2 mg/dL 01/20/2025 5:37 AM EST [facility] eGFRcr 78.6 mL/min/1.7 3m*2 01/20/2025 5:37 AM EST [facility] Comment:Reported eGFRcr in m L/min/1.73m2 is based the CKD-EPI 2020 equation that does not use a race coefficient. Blood Venous blood specimen / Unknown Venipuncture / Unknown 01/20/2025 5:02 AM EST 01/20/2025 5:07 AM EST us Cleve Deleon MD LAB BLOOD ORDERABLES Final Re sult [facility] [address] [place] [address] * (ABNORMAL) POCT glucose meter (01/19/2025 8:10 PM EST) POCT Glucose 213(H) 74 - 99 mg/dL 01/19/2025 8:12 PM EST [facility] Comment:Accuracy of a glucos e result [...] Comment 01/19/2025 8:12 PM EST [facility] LAB Spread Cutter ID Silva Coates 025 8:12 PM EST [facility] LAB Device ID [id number] 01/19/2025 8:12 PM EST [facility] LAB Specimen Type POC Capillary 01/19/2025 8:12 PM EST [facility] Blood Capillary blood specimen / Unknown 01/19/2025 8:10 PM EST 01/19/2025 8:12 PM EST us Cleve Deleon MD LAB POINT OF CARE TE ST DOCKED DEVICE UNSOLICITED RESULTS Final Result Performing Organization Address City/[facility]/ZIP Co de Phone Number [facility] LAB [address] [place] [address] * (ABNORMAL) POCT glucose meter (01/19/2025 5:32 PM EST) POCT Glucose 197(H) 74 - 99 mg/dL 01/19/2025 5:33 PM EST [facility] Comment:Accuracy of a glucos e result [...] Comment 01/19/2025 5:33 PM EST [facility] LAB Spread Cutter ID Aleyda Haley 01/19/2025 5:33 PM EST [facility] Device ID [id number] 01/19/2025 5:33 PM EST [facility] Specimen Type POC Capillary 01/19/2025 5:33 PM EST [facility] Blood Capillary blood specimen / Unknown 01/19/2025 5:32 PM EST 01/19/2025 5:33 PM EST us Cleve Deleon MD LAB POINT OF CARE TE ST DOCKED DEVICE UNSOLICITED RESULTS Final Result [facility] [address] [place] [address] * (ABNORMAL) POCT glucose meter (01/19/2025 12:21 PM EST) [facility] POCT Glucose 210(H) 74 - 99 mg/dL [...] 01/19/2025 12:22 PM EST [facility] Spread Cutter ID Waldemar NobleAledya singh 01/19/2025 12:22 PM EST [facility] Device ID [id number] 01/19/2025 12:22 PM EST [facility] Specimen Type POC Capillary 01/19/2025 12:22 PM EST [facility] Blood Capillary blood specimen / Unknown 01/19/2025 12:21 PM EST 01/19/2025 12:22 PM EST Cleve Deleon MD LAB POINT OF CARE TE ST DOCKED DEVICE UNSOLICITED RESULTS Final Result Performing Organization Address City/State/[facility] Co de Phone Number [facility] [address] [place] [address] * (ABNORMAL) POCT glucose meter (01/19/2025 8:18 AM EST) [facility] POCT Glucose 140(H) 74 - 99 mg/dL [...] 01/19/2025 8:20 AM EST [facility] Spread Cutter ID Waldemar DuvallAleyda 01/19/2025 8:20 AM EST [facility] Device ID [id number] 01/19/2025 8:20 AM EST [facility] Specimen Type POC Capillary 01/19/2025 8:20 AM EST [facility] Blood Capillary blood specimen / Unknown 01/19/2025 8:18 AM EST 01/19/2025 8:20 AM EST us Cleve Deleon MD LAB POINT OF CARE TE ST DOCKED DEVICE UNSOLICITED RESULTS Final Result Performing Organization Address City/[facility]/ZIP Co de Phone Number [facility] [address] [place] [address] * Phosphorus (01/19/2025 6:05 AM EST) Phosphorus, Plasma 3.0 2.5 - 4.5 mg/dL 01/19/2025 6:40 AM EST [facility] Blood Venous blood specimen / Unknown Venipuncture / Unknown 01/19/2025 6:05 AM EST 01/19/2025 6:15 AM EST us Cleve Deleon MD LAB BLOOD ORDERABLES Final Re sult Performing Organization Address City/[facility] Co de Phone Number [facility] [address] [place] [address] * Magnesium (01/19/2025 6:05 AM EST) Magnesium, Plasma 2.1 1.9 - 2.4 mg/dL 01/19/2025 6:40 AM EST [facility] Blood Venous blood specimen / Unknown Venipuncture / Unknown 01/19/2025 6:05 AM EST 01/19/2025 6:15 AM EST us Cleve Deleon MD LAB BLOOD ORDERABLES Final Re sult Performing Organization Address City/[facility] Co de Phone Number [facility] [address] [place] [address] * Vancomycin, Peak, Plasma Please draw ~2 hours after 0230 dose of vancomycin finishes infusing. Consider obtaining level via peripheral stick. If peripheral stick is not feasible, please ensure that line is flushed well prior to drawing level. Than... (01/19/2025 6:05 AM EST) Vancomycin, Peak, Plasma 39.7 20.0 - 40.0 ug/mL 01/19/2025 6:42 AM EST [facility] Blood Venous blood specimen / Unknown Venipuncture / Unknown 01/19/2025 6:05 AM EST 01/19/2025 6:15 AM EST Narrative [facility] - 01/19/2025 6:42 AM EST Therapeutic Peak level: 20-40ug/mL Supra-therapeutic Peak level: >40 ug/mL Cleve Deleon MD LAB BLOOD ORDERABLES Final Re sult [facility] [address] [place] [address] * Vancomycin, Trough, Plasma Please draw ~30 minutes prior to dose due at 0230 on 01/19. Please do NOT hold dose awaiting level to return. Consider obtaining level via peripheral stick. If peripheral stick is not feasible, please ensure that line i... (01/19/2025 2:05 AM EST) Pathologist [facility] Vancomycin, Trough, Plasma 16.4 10.0 - 20.0 ug/mL 01/19/2025 2:40 AM EST [facility] Blood Venous blood specimen / Unknown Venipuncture / Unknown 01/19/2025 2:05 AM EST 01/19/2025 2:12 AM EST Narrative [facility] - 01/19/2025 2:40 AM EST Therapeutic Trough level: 10-20ug/mL Supra-therapeutic Trough level: >20 ug/mL Cleve Deleon MD LAB BLOOD ORDERABLES Final Re sult [facility] [address] [place] [address] * (ABNORMAL) POCT glucose meter (01/18/2025 10:05 [...] Comment 01/18/2025 10:43 PM EST [facility] LAB Spread Cutter ID Felisa Sarmiento 025 10:43 PM EST [facility] LAB Device ID [id number] 01/18/2025 10:43 PM EST [facility] LAB Specimen Type POC Capillary 01/18/2025 10:43 PM EST [facility] Blood Capillary blood specimen / Unknown 01/18/2025 10:05 PM EST 01/18/2025 10:43 PM EST us Cleve Deleon MD LAB POINT OF CARE TE ST DOCKED DEVICE UNSOLICITED RESULTS Final Result Performing Organization Address City/State/[facility] Co de Phone Number [facility] [address] [place] [address] * (ABNORMAL) POCT glucose meter (01/18/2025 5:34 PM EST) [facility] Signature POCT Glucose 227(H) 74 - 99 mg/dL 01/18/2025 9:25 PM EST [facility] Comment:Accuracy of a glucos e result [...] Comment 01/18/2025 9:25 PM EST [facility]ARE LAB Spread Cutter ID Renae Mcleod 01/19/20 9:25 PM EST [facility]ARE LAB Device ID [id number] 01/18/2025 9:25 PM EST [facility] LAB Specimen Type POC Capillary 01/18/2025 9:25 PM EST [facility] Blood Capillary blood specimen / Unknown 01/18/2025 5:34 PM EST 01/18/2025 9:25 PM EST us Cleve Deleon MD LAB POINT OF CARE TE ST DOCKED DEVICE UNSOLICITED RESULTS Final Result [facility] [address] [place] [address] * Blood Culture (Aerobic/Anaerobet Set) (01/18/2025 1:23 PM EST) Culture No growth at day 5 SADA 01/23/2025 2:02 PM EST [facility] Blood Venous blood specimen / Unknown Venipuncture / Unknown 01/18/2025 1:23 PM EST 01/18/2025 1:34 PM EST us Cleve Deleon MD LAB MICROBIOLOGY - GENERAL OR DERABLES Final Result Performing Organization Address City/[facility] Co de Phone Number [facility] [address] [place] [address] * PERIPHERAL IV (SMARTFORM LINK) (01/18/2025 12:54 [...] - 99 mg/dL 01/18/2025 12:01 PM EST [facility] Comment:Accuracy of a glucos e result [...] 01/18/2025 12:01 PM EST [facility] Spread Cutter ID Renae Mcloed 01/19/20 12:01 PM EST HEALTH[facility]ARE LAB Device ID [id number] 01/18/2025 12:01 PM EST [facility] LAB Specimen Type POC Capillary 01/18/2025 12:01 PM EST [facility] Blood Capillary blood specimen / Unknown 01/18/2025 12:00 PM EST 01/18/2025 12:01 PM EST us Cleve Deleon MD LAB POINT OF CARE TE ST DOCKED DEVICE UNSOLICITED RESULTS Final Result Performing Organization Address City/State/[facility] Co de Phone Number [facility] [address] [place] [address] * (ABNORMAL) POCT glucose meter (01/18/2025 8:25 AM EST) [facility] POCT Glucose 146(H) 74 - 99 mg/dL 01/18/2025 8:27 AM EST [facility] Comment:Accuracy of a glucos e result [...] 01/18/2025 8:27 AM EST [facility] Spread Cutter ID Renae Mcleod 01/19/20 8:27 AM EST [facility] Device ID [id number] 01/18/2025 8:27 AM EST [facility] LAB Specimen Type POC Capillary 01/18/2025 8:27 AM EST [facility] Blood Capillary blood specimen / Unknown 01/18/2025 8:25 AM EST 01/18/2025 8:27 AM EST us Cleve Deleon MD LAB POINT OF CARE TE ST DOCKED DEVICE UNSOLICITED RESULTS Final Result [facility] [address] [place] [address] * (ABNORMAL) CBC and Differential (01/18/2025 4:56 AM EST) WBC Count 10.71(H) 3.70 - 10.30 10*3/uL LAB HEMATOLOGY METHOD 01/18/2025 5:22 AM EST [facility] RBC Count 2.79(L) 3.90 - 5.20 10*6/uL LAB HEMATOLOGY METHOD 01/18/2025 5:22 AM EST [facility] HGB 9.0(L) 11.2 - 15.7 g/dL LAB HEMATOLOGY METHOD 01/18/2025 5:22 AM EST [facility] HCT 27.4(L) 34.0 - 45.0 % LAB HEMATOLOGY METHOD 01/18/2025 5:22 AM EST [facility] Platelet Count 400(H) 155 - 369 10*3/uL LAB HEMATOLOGY METHOD 01/18/2025 5:22 AM EST [facility] MCV 98 79 - 98 fL LAB HEMATOLOGY METHOD 01/18/2025 5:22 AM EST [facility] MCH 32.3(H) 26.0 - 32.0 pg LAB HEMATOLOGY METHOD 01/18/2025 5:22 AM EST [facility] MCHC 32.8 30.7 - 35.5 g/dL LAB HEMATOLOGY METHOD 01/18/2025 5:22 AM EST [facility] RDW 14.3 11.5 - 14.5 % LAB HEMATOLOGY METHOD 01/18/2025 5:22 AM EST [facility] MPV 9.0 8.8 - 12.5 fL LAB HEMATOLOGY METHOD 01/18/2025 5:22 AM EST [facility] nRBC 0.0 <=0.0 per 100 WBCs LAB HEMATOLOGY METHOD 01/18/2025 5:22 AM EST [facility] Differential Type Automated LAB HEMATOLOGY METHOD 01/18/2025 5:22 AM EST [facility] Neutrophils % 79 % LAB HEMATOLOGY METHOD 01/18/2025 5:22 AM EST [facility] Lymphocytes % 9 % LAB HEMATOLOGY METHOD 01/18/2025 5:22 AM EST [facility] Monocytes % 9 % LAB HEMATOLOGY METHOD 01/18/2025 5:22 AM EST [facility] Eosinophils % 2 % LAB HEMATOLOGY METHOD 01/18/2025 5:22 AM EST [facility] Basophils % 0 % LAB HEMATOLOGY METHOD 01/18/2025 5:22 AM EST [facility] Immature Granulocytes % 1 % LAB HEMATOLOGY METHOD 01/18/2025 5:22 AM EST [facility] Neutrophils Absolute 8.43(H) 1.60 - 6.10 10*3/uL LAB HEMATOLOGY METHOD 01/18/2025 5:22 AM EST [facility] Lymphocytes Absolute 0.99(L) 1.20 - 3.90 10*3/uL LAB HEMATOLOGY METHOD 01/18/2025 5:22 AM EST [facility] Monocytes Absolute 0.97(H) 0.30 - 0.90 10*3/uL LAB HEMATOLOGY METHOD 01/18/2025 5:22 AM EST [facility] Eosinophils Absolute 0.21 0.00 - 0.50 10*3/uL LAB HEMATOLOGY METHOD 01/18/2025 5:22 AM EST [facility] Basophils Absolute 0.03 0.00 - 0.10 10*3/uL LAB HEMATOLOGY METHOD 01/18/2025 5:22 AM EST [facility] Immature Granulocytes Absolute 0.08(H) 0.00 - 0.06 10*3/uL LAB HEMATOLOGY METHOD 01/18/2025 5:22 AM EST [facility] Blood Blood sample taken from central line / Unknown Venipuncture / Unknown 01/18/2025 4:56 AM EST 01/18/2025 5:12 AM EST Narrative [facility] - 01/18/2025 5:22 AM EST Therapeutic decision making should be based on absolute values, rather than percentages. us Cleve Deleon MD LAB BLOOD ORDERABLES Final Re sult [facility] [address] [place] [address] * (ABNORMAL) Magnesium, Plasma (01/18/2025 4:56 AM EST) Magnesium, Plasma 1.7(L) 1.9 - 2.4 mg/dL 01/18/2025 5:42 AM EST [facility] Blood Blood sample taken from central line / Unknown Venipuncture / Unknown 01/18/2025 4:56 AM EST 01/18/2025 5:12 AM EST us Cleve Deleon MD LAB BLOOD ORDERABLES Final Re sult [facility] [address] [place] [address] * (ABNORMAL) Basic Metabolic Panel, Plasma (01/18/2025 4:56 AM EST) Glucose, Plasma 151(H) 74 - 99 mg/dL 01/18/2025 5:42 AM EST [facility] BUN, Plasma 16 8 - 23 mg/dL 01/18/2025 5:42 AM EST [facility] Creatinine, Plasma 0.90 0.60 - 1.10 mg/dL 01/18/2025 5:42 AM EST [facility] BUN/Creatinine Ratio 18 01/18/2025 5:42 AM EST [facility] Sodium, Plasma 142 136 - 145 mmol/L 01/18/2025 5:42 AM EST [facility] Potassium, Plasma 4.0 3.6 - 4.9 mmol/L 01/18/2025 5:42 AM EST [facility] Chloride, Plasma 104 97 - 107 mmol/L 01/18/2025 5:42 AM EST [facility] CO2, Plasma 25 22 - 29 mmol/L 01/18/2025 5:42 AM EST [facility] Anion Gap 13 6 - 16 mmol/L 01/18/2025 5:42 AM EST [facility] Total Calcium, Plasma 8.4(L) 8.9 - 10.2 mg/dL 01/18/2025 5:42 AM EST [facility] eGFRcr 67.2 mL/min/1.7 3m*2 01/18/2025 5:42 AM EST [facility] Comment:Reported eGFRcr in m L/min/1.73m2 is based the CKD-EPI 2020 equation that does not use a race coefficient. Blood Blood sample taken from central line / Unknown Venipuncture / Unknown 01/18/2025 4:56 AM EST 01/18/2025 5:12 AM EST us Cleve Deleon MD LAB BLOOD ORDERABLES Final Re sult Performing Organization Address [facility] Co de Phone Number [facility] [address] [place] [address] * (ABNORMAL) Phosphorus, Plasma (01/18/2025 4:56 AM EST) Phosphorus, Plasma 1.9(L) 2.5 - 4.5 mg/dL 01/18/2025 5:42 AM EST [facility] Blood Blood sample taken from central line / Unknown Venipuncture / Unknown 01/18/2025 4:56 AM EST 01/18/2025 5:12 AM EST us Cleve Deleon MD LAB BLOOD ORDERABLES Final Re sult Performing Organization Address [facility] Co de Phone Number [facility] [address] [place] [address] * Hepatitis C Antibody - ED W/Reflex to HCV Quant PCR (01/18/2025 4:56 AM EST) Pathologist [facility] Hepatitis C Antibody Negative Negative 01/18/2025 5:53 AM EST [facility] Blood Blood sample taken from central line / Unknown Venipuncture / Unknown 01/18/2025 4:56 AM EST 01/18/2025 5:11 AM EST us Cleve Deleon MD LAB BLOOD ORDERABLES Final Re sult Performing Organization Address [facility] Co de Phone Number [facility] [address] [place] [address] * (ABNORMAL) Hepatic Function Panel (01/18/2025 4:56 AM EST) Direct Bilirubin, Plasma <0.2 <=0.3 mg/dL 01/18/2025 5:42 AM EST [facility] Alkaline Phosphatase, Plasma 263(H) 46 - 142 U/L 01/18/2025 5:42 AM EST [facility] Total Bilirubin, Plasma 0.3 0.2 - 1.1 mg/dL 01/18/2025 5:42 AM EST [facility] Albumin, Plasma 3.0(L) 3.5 - 5.2 g/dL 01/18/2025 5:42 AM EST [facility] Total Protein 6.1(L) 6.3 - 7.9 g/dL 01/18/2025 5:42 AM EST [facility] ALT, Plasma 53(H) 10 - 35 U/L 01/18/2025 5:42 AM EST [facility] AST, Plasma 70(H) 10 - 35 U/L 01/18/2025 5:42 AM EST [facility] Blood Blood sample taken from central line / Unknown Venipuncture / Unknown 01/18/2025 4:56 AM EST 01/18/2025 5:12 AM EST us Cleve Deleon MD LAB BLOOD ORDERABLES Final Re sult [facility] [address] [place] [address] * (ABNORMAL) POCT glucose meter (01/17/2025 9:24 PM EST) POCT Glucose 175(H) 74 - 99 mg/dL 01/17/2025 9:27 PM EST [facility] Comment:Accuracy of a glucos e result [...] for testing. Comment 01/17/2025 9:27 PM EST [facility] Spread Cutter ID Felisa Sarmiento 025 9:27 PM EST [facility] LAB Device ID [id number] 01/17/2025 9:27 PM EST [facility]ALTH[facility]ARE LAB Specimen Type POC Capillary 01/17/2025 9:27 PM EST [facility] Blood Capillary blood specimen / Unknown 01/17/2025 9:24 PM EST 01/17/2025 9:27 PM EST us Cleve Deleon MD LAB POINT OF CARE TE ST DOCKED DEVICE UNSOLICITED RESULTS Final Result Performing Organization Address City/[facility] Co de Phone Number [facility] [address] [place] [address] * Hepatitis B Surface Antigen (01/17/2025 7:50 PM EST) Hepatitis B Surf Antigen Negative Negative 01/17/2025 10:06 PM EST [facility] Blood Arterial blood specimen / Unknown (Central Line) Existing Catheter / Unknown 01/17/2025 7:50 PM EST 01/17/2025 7:54 PM EST us Cleve Deleon MD LAB BLOOD ORDERABLES Final Re sult Performing Organization Address [facility] Co md Phone Number [facility] [address] [place] [address] * Hepatitis B Surface Antibody, Quantitative (01/17/2025 7:50 PM EST) Pathologist [facility] Hepatitis B Surface Antibody, Quantitative <8.00 NonReactiv e: <8, Grayzone: 8 - <12, Reactive: >= 12 mIU/mL 01/17/2025 10:06 PM EST [facility] Comment: Nonreactive. Individual is considered not immune to HBV infection. Blood Arterial blood specimen / Unknown (Central Line) Existing Catheter / Unknown 01/17/2025 7:50 PM EST 01/17/2025 7:54 PM EST us Cleve Deleon MD LAB BLOOD ORDERABLES Final Re sult Performing Organization Address City/[facility]/ZIP Co de Phone Number [facility] [address] [place] [address] * Hepatitis B Core Total Antibody IgG,IgM (01/17/2025 7:50 PM EST) Hepatitis B Core Total Antibody IgG,IgM Negative Negative 01/17/2025 10:06 PM EST [facility] Blood Arterial blood specimen / Unknown (Central Line) Existing Catheter / Unknown 01/17/2025 7:50 PM EST 01/17/2025 7:54 PM EST us Cleve Deleon MD LAB BLOOD ORDERABLES Final Re sult Performing Organization Address [facility]/ZIP Co de Phone Number [facility] [address] [place] [address] * Hepatitis B Core Antibody IgM (01/17/2025 7:50 PM EST) Pathologist [facility] [facility] Hepatitis B Core Antibody IgM Negative Negative 01/17/2025 10:06 PM EST [facility] Blood Arterial blood specimen / Unknown (Central Line) Existing Catheter / Unknown 01/17/2025 7:50 PM EST 01/17/2025 7:54 PM EST us Cleve Deleon MD LAB BLOOD ORDERABLES Final Re sult Performing Organization Address [facility] [place] [address] * (ABNORMAL) POCT glucose meter (01/17/2025 5:55 PM EST) [facility] POCT Glucose 186(H) 74 - 99 mg/dL [...] 01/17/2025 5:57 PM EST [facility] Spread Cutter ID Aleyda Haley 01/17/2025 5:57 PM EST [facility] Device ID [id number] 01/17/2025 5:57 PM EST [facility] Specimen Type POC Capillary 01/17/2025 5:57 PM EST [facility] Blood Capillary blood specimen / Unknown 01/17/2025 5:55 PM EST 01/17/2025 5:57 PM EST Cleve Deleon MD LAB POINT OF CARE TE ST DOCKED DEVICE UNSOLICITED RESULTS Final Result Performing Organization Address [facility] de Phone Number [facility] [address] [place] [address] * (ABNORMAL) POCT glucose meter (01/17/2025 12:33 PM EST) [facility] POCT Glucose 172(H) 74 - 99 mg/dL [...] for testing. Comment 01/17/2025 12:34 PM EST [facility] Spread Cutter ID MedeirosAleyda Price 01/17/2025 12:34 PM EST [facility] Device ID [id number] 01/17/2025 12:34 PM EST [facility] Specimen Type POC Capillary 01/17/2025 12:34 PM EST [facility] Blood Capillary blood specimen / Unknown 01/17/2025 12:33 PM EST 01/17/2025 12:34 PM EST Cleve Deleon MD LAB POINT OF CARE TE ST DOCKED DEVICE UNSOLICITED RESULTS Final Result Performing Organization Address City/[facility] Co de Phone Number [facility] [address] [place] [address] * ECHO, ADULT TRANSTHORACIC COMPLETE (01/17/2025 11:55 AM EST) [facility] BSA 2.07 m2 PINEDA ISCV LVIDd 45 [...] is no recent study available for direct byuj-ov-nixx comparison. Left Ventricle The left ventricle is [...] is no recent study available for direct [id number]-oxld comparison. us Cleve Deleon MD CV ECHO [...] Comment 01/17/2025 5:25 AM EST HEALTH[facility]ARE LAB Spread Cutter ID Cydney Valiente 5:25 AM EST [facility] Device ID [id number] 01/17/2025 5:25 AM EST [facility] Specimen Type POC Capillary 01/17/2025 5:25 AM EST [facility] Blood Capillary blood specimen / Unknown 01/17/2025 5:23 AM EST 01/17/2025 5:25 AM EST Cleve Deleon MD LAB POINT OF CARE TE ST DOCKED DEVICE UNSOLICITED RESULTS Final Result Performing Organization Address City/State/[facility] Co de Phone Number [facility] [address] [place] [address] * (ABNORMAL) CBC and Differential (01/17/2025 2:31 AM EST) WBC Count 8.74 3.70 - 10.30 10*3/uL LAB HEMATOLOGY METHOD 01/17/2025 3:05 AM EST [facility] RBC Count 2.82(L) 3.90 - 5.20 10*6/uL LAB HEMATOLOGY METHOD 01/17/2025 3:05 AM EST [facility] HGB 8.9(L) 11.2 - 15.7 g/dL LAB HEMATOLOGY METHOD 01/17/2025 3:05 AM EST [facility] HCT 27.9(L) 34.0 - 45.0 % LAB HEMATOLOGY METHOD 01/17/2025 3:05 AM EST [facility] Platelet Count 351 155 - 369 10*3/uL LAB HEMATOLOGY METHOD 01/17/2025 3:05 AM EST [facility] MCV 99(H) 79 - 98 fL LAB HEMATOLOGY METHOD 01/17/2025 3:05 AM EST [facility] MCH 31.6 26.0 - 32.0 pg LAB HEMATOLOGY METHOD 01/17/2025 3:05 AM [facility] MCHC 31.9 30.7 - 35.5 g/dL LAB HEMATOLOGY METHOD 01/17/2025 3:05 AM [facility] RDW 14.2 11.5 - 14.5 % LAB HEMATOLOGY METHOD 01/17/2025 3:05 AM [facility] MPV 9.1 8.8 - 12.5 fL LAB HEMATOLOGY METHOD 01/17/2025 3:05 AM [facility] nRBC 0.0 <=0.0 per 100 WBCs LAB HEMATOLOGY METHOD 01/17/2025 3:05 AM [facility] Differential Type Automated LAB HEMATOLOGY METHOD 01/17/2025 3:05 AM [facility] Neutrophils % 88 % LAB HEMATOLOGY METHOD 01/17/2025 3:05 AM [facility] Lymphocytes % 8 % LAB HEMATOLOGY METHOD 01/17/2025 3:05 AM [facility] Monocytes % 2 % LAB HEMATOLOGY METHOD 01/17/2025 3:05 AM [facility] Eosinophils % 0 % LAB HEMATOLOGY METHOD 01/17/2025 3:05 AM [facility] Basophils % 0 % LAB HEMATOLOGY METHOD 01/17/2025 3:05 AM [facility] Immature Granulocytes % 2 % LAB HEMATOLOGY METHOD 01/17/2025 3:05 AM [facility] Neutrophils Absolute 7.74(H) 1.60 - 6.10 10*3/uL LAB HEMATOLOGY METHOD 01/17/2025 3:05 AM [facility] Lymphocytes Absolute 0.68(L) 1.20 - 3.90 10*3/uL LAB HEMATOLOGY METHOD 01/17/2025 3:05 AM [facility] Monocytes Absolute 0.17(L) 0.30 - 0.90 10*3/uL LAB HEMATOLOGY METHOD 01/17/2025 3:05 AM [facility] Eosinophils Absolute 0.00 0.00 - 0.50 10*3/uL LAB HEMATOLOGY METHOD 01/17/2025 3:05 AM [facility] Basophils Absolute 0.02 0.00 - 0.10 10*3/uL LAB HEMATOLOGY METHOD 01/17/2025 3:05 AM [facility] Immature Granulocytes Absolute 0.13(H) 0.00 - 0.06 10*3/uL LAB HEMATOLOGY METHOD 01/17/2025 3:05 AM EST [facility] Blood Venous blood specimen / Unknown Venipuncture / Unknown 01/17/2025 2:31 AM EST 01/17/2025 2:40 AM EST Narrative [facility] - 01/17/2025 3:05 AM EST Therapeutic decision making should be based on absolute values, rather than percentages. us Cleve Deleon MD LAB BLOOD ORDERABLES Final Re sult Performing Organization Address City/[facility]/ZIP Co de Phone Number [facility] [address] [place] [address] * Magnesium, Plasma (01/17/2025 2:31 AM EST) Magnesium, Plasma 2.0 1.9 - 2.4 mg/dL 01/17/2025 3:08 AM EST [facility] Blood Venous blood specimen / Unknown Venipuncture / Unknown 01/17/2025 2:31 AM EST 01/17/2025 2:39 AM EST Cleve Deleon MD LAB BLOOD ORDERABLES Final Re sult [facility] [address] [place] [address] * (ABNORMAL) Basic Metabolic Panel, Plasma (01/17/2025 2:31 AM EST) Glucose, Plasma 193(H) 74 - 99 mg/dL 01/17/2025 3:08 AM EST [facility] BUN, Plasma 17 8 - 23 mg/dL 01/17/2025 3:08 AM EST [facility] Creatinine, Plasma 0.87 0.60 - 1.10 mg/dL 01/17/2025 3:08 AM EST [facility] BUN/Creatinine Ratio 20 01/17/2025 3:08 AM EST [facility] Sodium, Plasma 140 136 - 145 mmol/L 01/17/2025 3:08 AM EST [facility] Potassium, Plasma 4.6 3.6 - 4.9 mmol/L 01/17/2025 3:08 AM EST [facility] Chloride, Plasma 104 97 - 107 mmol/L 01/17/2025 3:08 AM EST [facility] CO2, Plasma 24 22 - 29 mmol/L 01/17/2025 3:08 AM EST [facility] Anion Gap 12 6 - 16 mmol/L 01/17/2025 3:08 AM EST [facility] Total Calcium, Plasma 8.7(L) 8.9 - 10.2 mg/dL 01/17/2025 3:08 AM EST [facility] eGFRcr 70.0 mL/min/1.7 3m*2 01/17/2025 3:08 AM EST [facility] Comment:Reported eGFRcr in m L/min/1.73m2 is based the CKD-EPI 2020 equation that does not use a race coefficient. Blood Venous blood specimen / Unknown Venipuncture / Unknown 01/17/2025 2:31 AM EST 01/17/2025 2:39 AM EST Cleve Deleon MD LAB BLOOD ORDERABLES Final Re sult Performing Organization Address City/[facility]/ZIP Co de Phone Number [facility] [address] [place] [address] * Phosphorus, Plasma (01/17/2025 2:31 AM EST) Pathologist [facility] Phosphorus, Plasma 4.3 2.5 - 4.5 mg/dL 01/17/2025 3:08 AM EST [facility] Blood Venous blood specimen / Unknown Venipuncture / Unknown 01/17/2025 2:31 AM EST 01/17/2025 2:39 AM EST us Cleve Deleon MD LAB BLOOD ORDERABLES Final Re sult [facility] [address] [place] [address] * (ABNORMAL) POCT glucose meter (01/17/2025 12:39 AM EST) POCT Glucose 198(H) 74 - 99 mg/dL 01/17/2025 12:41 AM EST [facility] Comment:Accuracy of a glucos e [...] 01/17/2025 12:41 AM EST [facility] Spread Cutter ID Cydney Valiente 12:41 AM EST [facility] Device ID [id number] 01/17/2025 12:41 AM EST [facility] Specimen Type POC Capillary 01/17/2025 12:41 AM EST [facility] Blood Capillary blood specimen / Unknown 01/17/2025 12:39 AM EST 01/17/2025 12:41 AM EST Cleve Deleon MD LAB POINT OF CARE TE ST DOCKED DEVICE UNSOLICITED RESULTS Final Result Performing Organization Address City/State/[facility] Co de Phone Number [facility] [address] [place] [address] * CT Lumbar Spine w IV Contrast [...] Ar Wick MD on 01/17/2025 1:25 PM Librado Snehal Gaston MD IMG CT PROCEDURES Fi nal [...] 01/16/2025 8:02 PM Final report signed by Johaan Coyne MD on 01/16/2025 8:04 PM Narrative [...] MD on 01/16/2025 8:04 PM Naina Dubois [employer] IMG US PROCEDURES Final Result * (ABNORMAL) POCT glucose meter (01/16/2025 6:35 PM EST) POCT Glucose 173(H) 74 - 99 mg/dL 01/16/2025 6:36 PM EST [facility] LAB Comment:Accuracy of a [...] for testing. Comment 01/16/2025 6:36 PM EST [facility] Spread Cutter ID Amandeep Ward 01/16/2025 6:36 PM EST [facility] Device ID [id number] 01/16/2025 6:36 PM EST [facility] Specimen Type POC Capillary 01/16/2025 6:36 PM EST [facility] Blood Capillary blood specimen / Unknown 01/16/2025 6:35 PM EST 01/16/2025 6:36 PM EST Cleve Deleon MD LAB POINT OF CARE TE ST DOCKED DEVICE UNSOLICITED RESULTS Final Result Performing Organization Address City/State/[facility] Co de Phone Number [facility] [address] [place] [address] * (ABNORMAL) POCT glucose meter (01/16/2025 5:22 PM EST) [facility] POCT Glucose 178(H) 74 - 99 mg/dL 01/16/2025 5:23 PM EST [facility] Comment:Accuracy of a glucos e result [...] Comment 01/16/2025 5:23 PM EST [facility] Spread Cutter ID Felisa Hernandez 5:23 PM EST [facility] Device ID [id number] 01/16/2025 5:23 PM EST [facility] Specimen Type POC Capillary 01/16/2025 5:23 PM EST [facility] Blood Capillary blood specimen / Unknown 01/16/2025 5:22 PM EST 01/16/2025 5:23 PM EST us Cleve Deleon MD LAB POINT OF CARE TE ST DOCKED DEVICE UNSOLICITED RESULTS Final Result [facility] [address] [place] [address] * [place] Less than 1 Hour Intraoperative (01/16/2025 5:02 PM EST) Narrative IMAGING - 01/16/2025 5:04 PM EST Images were obtained for surgical purposes. See Fransisco Farley's surgical note in the patient's chart for the findings. Fransisco Gaston MD IMG FLUOROSCOPY PROC EDURES Final Result Performing Organization Address City/[facility] Co de Phone Number IMAGING * (ABNORMAL) Routine Culture and Gram Stain (01/16/2025 4:14 PM EST) Culture Heavy Growth 01/19/2025 5:17 PM EST [facility] Culture 4+ Biotype 1 Methicillin-Resis tant Staphylococcus aureus(AA) 01/19/2025 5:17 PM EST [facility] Comment: For susceptibility results refer to: - [id number] Edited result: Previously reported as Staphylococcus aureus on 01/17/2025 at 1327 EST. Staphylococcus aureus has been updated to reportable. Culture 2+ Biotype 2 Methicillin-Resis tant Staphylococcus aureus(AA) 01/19/2025 5:17 PM EST [facility] Comment: For susceptibility results refer to: - [id number] Edited result: Previously reported as Staphylococcus aureus on 01/17/2025 at 1327 EST. Staphylococcus aureus has been updated to reportable. Foreign Body Lower back structure / Unknown 01/16/2025 4:14 PM EST 01/16/2025 5:10 PM EST Comment:Pre-op diagnosis: MRSA bacteremia [R78.81, B95.62] Fransisco aGston MD LAB MICROBIOLOGY - G ENERAL ORDERABLES Final Result Performing Organization Address City/[facility]/ZIP Co de Phone Number [facility] [address] [place] [address] * Anaerobic Culture (01/16/2025 4:14 PM EST) Culture No anaerobes isolated 01/20/2025 2:57 PM EST [facility] Foreign Body Lower back structure / Unknown 01/16/2025 4:14 PM EST 01/16/2025 5:10 PM EST Comment:Pre-op diagnosis: MRSA bacteremia [R78.81, B95.62] Fransisco Gaston MD LAB MICROBIOLOGY - G ENERAL ORDERABLES Final Result [facility] [address] [place] [address] * Fungal Culture, Routine (01/16/2025 4:05 PM EST) Culture No Fungal Growth at 1 Week 01/24/2025 6:48 AM EST [facility] Abscess Topography unknown / Unknown 01/16/2025 4:05 PM EST 01/16/2025 5:10 PM EST Cleve Deleon MD LAB MICROBIOLOGY - GENERAL OR DERABLES Final Result [facility] [address] [place] [address] * (ABNORMAL) Abscess Culture and Gram Stain (01/16/2025 4:05 PM EST) Culture Light Growth 01/19/2025 5:17 PM EST [facility] Culture 1+ Biotype 1 Methicillin-Resista nt Staphylococcus aureus(AA) 01/19/2025 5:17 PM EST [facility] Comment: The organism value for this result has been updated. These results have been appended to the previously preliminary verified report. Edited result: Previously reported as Staphylococcus aureus on 01/18/2025 at 1547 EST. Staphylococcus aureus has been updated to reportable. Culture 1+ Biotype 2 Methicillin-Resista nt Staphylococcus aureus(AA) 01/19/2025 5:17 PM EST [facility] Comment: The organism value for this result has been updated. These results have been appended to the previously preliminary verified report. Edited result: Previously reported as Staphylococcus aureus on 01/18/2025 at 1547 EST. Staphylococcus aureus has been updated to reportable. Gram Stain Result Rare Gram positive cocci in pairs and chains(A) 01/19/2025 5:17 PM EST [facility] Gram Stain Result Numerous Polymorphonuclear leukocytes(A) 01/19/2025 5:17 PM EST [facility] Abscess Lower back structure / [...] ENERAL ORDERABLES Final Result Performing Organization Address [facility]/ZIP Co de Phone Number [facility] [address] [place] [address] * Anaerobic Culture (01/16/2025 4:05 PM EST) Pathologist [facility] Culture No anaerobes isolated 01/20/2025 2:57 PM EST [facility] Abscess Lower back structure / Unknown 01/16/2025 4:05 PM EST 01/16/2025 5:10 PM EST Comment:Pre-op diagnosis: MRSA bacteremia [R78.81, B95.62] Fransisco Gaston MD LAB MICROBIOLOGY - G ENERAL ORDERABLES Final Result Performing Organization Address [facility] Co de Phone Number [facility] [address] [place] [address] * (ABNORMAL) POCT glucose meter (01/16/2025 3:19 PM EST) [facility] POCT Glucose 123(H) 74 - 99 mg/dL [...] 01/16/2025 3:20 PM EST [facility] Spread Cutter ID Mindy Alarcon 01/16/2025 3:20 PM EST [facility] Device ID [id number] 01/16/2025 3:20 PM EST [facility] Specimen Type POC Capillary 01/16/2025 3:20 PM EST [facility] Blood Capillary blood specimen / Unknown 01/16/2025 3:19 PM EST 01/16/2025 3:20 PM EST us Cleve Deleon MD LAB POINT OF CARE TE ST DOCKED DEVICE UNSOLICITED RESULTS Final Result Performing Organization Address [facility] de Phone Number [facility] [address] [place] [address] * (ABNORMAL) POCT glucose meter (01/16/2025 11:52 [...] for testing. Comment 01/16/2025 11:53 AM EST [facility] Spread Cutter ID Amandeep Ward 01/16/2025 11:53 AM EST [facility] Device ID [id number] 01/16/2025 11:53 AM EST [facility] Specimen Type POC Capillary 01/16/2025 11:53 AM EST [facility] Blood Capillary blood specimen / Unknown 01/16/2025 11:52 AM EST 01/16/2025 11:53 AM EST us Cleve Deleon MD LAB POINT OF CARE TE ST DOCKED DEVICE UNSOLICITED RESULTS Final Result Performing Organization Address City/[facility] de Phone Number [facility] [address] [place] [address] * (ABNORMAL) POCT glucose meter (01/16/2025 6:34 [...] Comment 01/16/2025 6:35 AM EST [facility] Spread Cutter ID Alice Garber 01/16/2025 6:35 AM EST [facility] Device ID [id number] 01/16/2025 6:35 AM EST [facility] Specimen Type POC Capillary 01/16/2025 6:35 AM EST [facility] Blood Capillary blood specimen / Unknown 01/16/2025 6:34 AM EST 01/16/2025 6:35 AM EST us Demar Jiménez MD LAB POINT OF CARE TE ST DOCKED DEVICE UNSOLICITED RESULTS Final Result Performing Organization Address City/State/[facility] Co de Phone Number [facility] [address] [place] [address] * (ABNORMAL) Urinalysis with reflex microscopic (Culture NOT Included) (01/16/2025 4:51 AM EST) Color, Urine Yellow LAB URINALYSIS - AUTOMATED METHOD 01/16/2025 5:13 AM EST [facility] Clarity, Urine Clear LAB URINALYSIS - AUTOMATED METHOD 01/16/2025 5:13 AM EST [facility] Spec [place], Urine 1.012 1.005 - 1.030 LAB URINALYSIS - AUTOMATED METHOD 01/16/2025 5:13 AM EST [facility] pH, Urine 6.0 5.0 - 8.0 LAB URINALYSIS - AUTOMATED METHOD 01/16/2025 5:13 AM EST [facility] Protein, Urine Negative Negative mg/dL LAB URINALYSIS - AUTOMATED METHOD 01/16/2025 5:13 AM EST [facility] Glucose, Urine >=1000(A) Negative mg/dL LAB URINALYSIS - AUTOMATED METHOD 01/16/2025 5:13 AM EST [facility] Ketones, Urine Negative Negative mg/dL LAB URINALYSIS - AUTOMATED METHOD 01/16/2025 5:13 AM EST [facility] Blood, Urine Negative Negative LAB URINALYSIS - AUTOMATED METHOD 01/16/2025 5:13 AM EST [facility] Bilirubin, Urine Negative Negative LAB URINALYSIS - AUTOMATED METHOD 01/16/2025 5:13 AM EST [facility] Urobilinogen, Urine 0.2 0.2 to 1.0 mg/dL LAB URINALYSIS - AUTOMATED METHOD 01/16/2025 5:13 AM EST [facility] Leukocytes, Urine Negative Negative LAB URINALYSIS - AUTOMATED METHOD 01/16/2025 5:13 AM EST [facility] Nitrite, Urine Negative Negative LAB URINALYSIS - AUTOMATED METHOD 01/16/2025 5:13 AM EST [facility] Urine Urine specimen obtained by clean catch procedure / Unknown Non-blood Collection / Unknown 01/16/2025 4:51 AM EST 01/16/2025 5:02 AM EST us Fransisco Gaston MD LAB URINE ORDERABLES Final Result Performing Organization Address City/[facility]/ZIP Co de Phone Number [facility] [address] [address] * (ABNORMAL) POCT glucose meter (01/16/2025 1:34 AM EST) POCT Glucose 144(H) 74 - 99 mg/dL 01/16/2025 1:37 AM EST [facility] Comment:Accuracy of a glucos e result [...] for testing. Comment 01/16/2025 1:37 AM EST [facility]ALTH[facility]ARE LAB Spread Cutter ID Alice Garber 01/16/2025 1:37 AM EST [facility] Device ID [id number] 01/16/2025 1:37 AM EST [facility] Specimen Type POC Capillary 01/16/2025 1:37 AM EST [facility] Blood Capillary blood specimen / Unknown 01/16/2025 1:34 AM EST 01/16/2025 1:37 AM EST us Demar Jiménez MD LAB POINT OF CARE TE ST DOCKED DEVICE UNSOLICITED RESULTS Final Result [facility] [address] [place] [address] * Blood Culture (Aerobic/Anaerobet Set) (01/16/2025 1:28 AM EST) Culture No growth at day 5 SADA 01/21/2025 4:02 AM EST [facility] Blood Structure of right hand / Unknown Venipuncture / Unknown 01/16/2025 1:28 AM EST 01/16/2025 3:52 AM EST Fransisco Gaston MD LAB MICROBIOLOGY - G ENERAL ORDERABLES Final Result Performing Organization Address [facility] [place] [address] * (ABNORMAL) Hemoglobin A1c (01/16/2025 12:36 AM EST) Hemoglobin A1c 7.8(H) <5.7 % 01/16/2025 10:21 AM EST [facility] Blood Venous blood specimen / Unknown Venipuncture / Unknown 01/16/2025 12:36 AM EST 01/16/2025 12:41 AM EST Narrative [facility] - 01/16/2025 10:21 AM EST HA1C Interpretive Data: Diagnosis of Diabetes: Diabetic > or = 6.5% Pre-diabetic 5.7 to 6.4% Non-diabetic < or = 5.6% Glycemic Targets for Type I and Type II Diabetics: Non- Adults <7.0% Adults <6.0% Children and Adolescents <7.5% Source: [place] [employer]. Standards of medical care in diabetes,2017. Diabetes Care.2017:40 (suppl 1):S1-S135. us Naina Dubois APRN LAB BLOOD ORDERABLES Fi nal Result Performing Organization Address [facility] [place] [address] * Phosphorus (01/16/2025 12:36 AM EST) Phosphorus, Plasma 2.7 2.5 - 4.5 mg/dL 01/16/2025 2:12 AM EST [facility] Blood Venous blood specimen / Unknown Venipuncture / Unknown 01/16/2025 12:36 AM EST 01/16/2025 12:41 AM EST Naina Dubois [employer]ERR[employer] LAB BLOOD ORDERABLES Fi nal Result Performing Organization Address City/[facility]/ZIP Co de Phone Number [facility] [address] [place] [address] * (ABNORMAL) Magnesium (01/16/2025 12:36 AM EST) Magnesium, Plasma 1.7(L) 1.9 - 2.4 mg/dL 01/16/2025 2:12 AM EST [facility] Blood Venous blood specimen / Unknown Venipuncture / Unknown 01/16/2025 12:36 AM EST 01/16/2025 12:41 AM EST Naina Iris Silvino [employer] LAB BLOOD ORDERABLES Fi nal Result Performing Organization Address City/[facility] [place] [address] * (ABNORMAL) Procalcitonin (01/16/2025 12:36 AM EST) Procalcitonin, Plasma 0.09(H) <0.09 ng/mL 01/16/2025 2:12 AM EST [facility] Blood Venous blood specimen / Unknown Venipuncture / Unknown 01/16/2025 12:36 AM EST 01/16/2025 12:41 AM EST Narrative [facility] - 01/16/2025 2:12 AM EST [...] predict 28 day mortality risk. Please consult [email or web address]-iql-nmhbjqveqv.[email or web address] for more information. Test performed at [facility]. Naina Dubois APRN LAB BLOOD ORDERABLES Fi nal Result Performing Organization Address City/[facility] Co de Phone Number [facility] [address] [place] [address] * (ABNORMAL) C-reactive protein (01/16/2025 12:36 AM EST) CRP, Plasma 108.5(H) <=8.0 mg/L 01/16/2025 1:14 AM EST [facility] Blood Venous blood specimen / Unknown Venipuncture / Unknown 01/16/2025 12:36 AM EST 01/16/2025 12:41 AM EST Narrative [facility] - 01/16/2025 1:14 AM EST This CRP test is appropriate for assessment of infection, systemic inflammation and/or tissue injury. To assess cardiovascular disease risk order high sensitivity CRP (CRPH). us Fransisco Gaston MD LAB BLOOD ORDERABLES Final Result Performing Organization Address [facility] de Phone Number [facility] [address] [place] [address] * (ABNORMAL) Sedimentation Rate, Automated (01/16/2025 12:36 AM EST) Sedimentation Rate 96(H) <30 mm/hr 2024 12:58 AM EST [facility] Blood Venous blood specimen / Unknown Venipuncture / Unknown 01/16/2025 12:36 AM EST 01/16/2025 12:41 AM EST us Fransisco Gaston MD LAB BLOOD ORDERABLES Final Result Performing Organization Address City/[facility]/ZIP Co de Phone Number [facility] [address] [place] [address] * (ABNORMAL) CBC and Differential (01/16/2025 12:36 AM EST) WBC Count 9.75 3.70 - 10.30 10*3/uL LAB HEMATOLOGY METHOD 01/16/2025 12:50 AM EST [facility] RBC Count 2.94(L) 3.90 - 5.20 10*6/uL LAB HEMATOLOGY METHOD 01/16/2025 12:50 AM EST [facility] HGB 9.4(L) 11.2 - 15.7 g/dL LAB HEMATOLOGY METHOD 01/16/2025 12:50 AM EST [facility] HCT 28.1(L) 34.0 - 45.0 % LAB HEMATOLOGY METHOD 01/16/2025 12:50 AM EST [facility] Platelet Count 338 155 - 369 10*3/uL LAB HEMATOLOGY METHOD 01/16/2025 12:50 AM EST [facility] MCV 96 79 - 98 fL LAB HEMATOLOGY METHOD 01/16/2025 12:50 AM EST [facility] MCH 32.0 26.0 - 32.0 pg LAB HEMATOLOGY METHOD 01/16/2025 12:50 AM [facility] MCHC 33.5 30.7 - 35.5 g/dL LAB HEMATOLOGY METHOD 01/16/2025 12:50 AM EST [facility] RDW 14.2 11.5 - 14.5 % LAB HEMATOLOGY METHOD 01/16/2025 12:50 AM EST [facility] MPV 9.2 8.8 - 12.5 fL LAB HEMATOLOGY METHOD 01/16/2025 12:50 AM EST [facility] nRBC 0.0 <=0.0 per 100 WBCs LAB HEMATOLOGY METHOD 01/16/2025 12:50 AM [facility] Differential Type Automated LAB HEMATOLOGY METHOD 01/16/2025 12:50 AM EST [facility] Neutrophils % 75 % LAB HEMATOLOGY METHOD 01/16/2025 12:50 AM EST [facility] Lymphocytes % 11 % LAB HEMATOLOGY METHOD 01/16/2025 12:50 AM EST [facility] Monocytes % 10 % LAB HEMATOLOGY METHOD 01/16/2025 12:50 AM EST [facility] Eosinophils % 2 % LAB HEMATOLOGY METHOD 01/16/2025 12:50 AM EST [facility] Basophils % 0 % LAB HEMATOLOGY METHOD 01/16/2025 12:50 AM EST [facility] Immature Granulocytes % 2 % LAB HEMATOLOGY METHOD 01/16/2025 12:50 AM EST [facility] Neutrophils Absolute 7.38(H) 1.60 - 6.10 10*3/uL LAB HEMATOLOGY METHOD 01/16/2025 12:50 AM EST [facility] Lymphocytes Absolute 1.03(L) 1.20 - 3.90 10*3/uL LAB HEMATOLOGY METHOD 01/16/2025 12:50 AM EST [facility] Monocytes Absolute 0.94(H) 0.30 - 0.90 10*3/uL LAB HEMATOLOGY METHOD 01/16/2025 12:50 AM EST [facility] Eosinophils Absolute 0.22 0.00 - 0.50 10*3/uL LAB HEMATOLOGY METHOD 01/16/2025 12:50 AM EST [facility] Basophils Absolute 0.03 0.00 - 0.10 10*3/uL LAB HEMATOLOGY METHOD 01/16/2025 12:50 AM EST [facility] Immature Granulocytes Absolute 0.15(H) 0.00 - 0.06 10*3/uL LAB HEMATOLOGY METHOD 01/16/2025 12:50 AM EST [facility] Blood Venous blood specimen / Unknown Venipuncture / Unknown 01/16/2025 12:36 AM EST 01/16/2025 12:41 AM EST Narrative [facility] - 01/16/2025 12:50 AM EST Therapeutic decision making should be based on absolute values, rather than percentages. us Fransisco Gaston MD LAB BLOOD ORDERABLES Final Result [facility] [address] [place] [address] * (ABNORMAL) Comprehensive Metabolic Panel, Plasma (01/16/2025 12:36 AM EST) Glucose, Plasma 141(H) 74 - 99 mg/dL 01/16/2025 1:14 AM EST [facility] BUN, Plasma 17 8 - 23 mg/dL 01/16/2025 1:14 AM [facility] Creatinine, Plasma 0.97 0.60 - 1.10 mg/dL 01/16/2025 1:14 AM [facility] BUN/Creatinine Ratio 18 01/16/2025 1:14 AM [facility] Sodium, Plasma 137 136 - 145 mmol/L 01/16/2025 1:14 AM [facility] Potassium, Plasma 4.1 3.6 - 4.9 mmol/L 01/16/2025 1:14 AM [facility] Chloride, Plasma 103 97 - 107 mmol/L 01/16/2025 1:14 AM [facility] CO2, Plasma 22 22 - 29 mmol/L 01/16/2025 1:14 AM [facility] Anion Gap 12 6 - 16 mmol/L 01/16/2025 1:14 AM [facility] Total Calcium, Plasma 9.0 8.9 - 10.2 mg/dL 01/16/2025 1:14 AM [facility] Total Protein 6.1(L) 6.3 - 7.9 g/dL 01/16/2025 1:14 AM [facility] Albumin, Plasma 2.9(L) 3.5 - 5.2 g/dL 01/16/2025 1:14 AM [facility] AST, Plasma 77(H) 10 - 35 U/L 01/16/2025 1:14 AM [facility] ALT, Plasma 54(H) 10 - 35 U/L 01/16/2025 1:14 AM [facility] Alkaline Phosphatase, Plasma 271(H) 46 - 142 U/L 01/16/2025 1:14 AM [facility] Total Bilirubin, Plasma 0.4 0.2 - 1.1 mg/dL 01/16/2025 1:14 AM [facility] eGFRcr 61.4 mL/min/1.7 3m*2 01/16/2025 1:14 AM [facility] Comment:Reported eGFRcr in m L/min/1.73m2 is based the CKD-EPI 2020 equation that does not use a race coefficient. Blood Venous blood specimen / Unknown Venipuncture / Unknown 01/16/2025 12:36 AM EST 01/16/2025 12:41 AM EST us Fransisco Gaston MD LAB BLOOD ORDERABLES Final Result Performing Organization Address City/[facility] Co de Phone Number [facility] [address] [place] [address] * (ABNORMAL) APTT (01/16/2025 12:36 AM EST) aPTT 36(H) 25 - 35 sec LAB COAGULATION METHOD 01/16/2025 1:15 AM EST [facility] Blood Venous blood specimen / Unknown Venipuncture / Unknown 01/16/2025 12:36 AM EST 01/16/2025 12:41 AM EST us Fransisco Gaston MD LAB BLOOD ORDERABLES Final Result Performing Organization Address City/[facility] Co de Phone Number [facility] [address] [place] [address] * (ABNORMAL) Prothrombin Time/INR (01/16/2025 12:36 AM EST) Prothrombin Time 15.3(H) 12.0 - 14.3 sec LAB COAGULATION METHOD 01/16/2025 1:15 AM EST [facility] INR 1.2(H) 0.9 - 1.1 LAB COAGULATION METHOD 01/16/2025 1:15 AM EST [facility] Blood Venous blood specimen / Unknown Venipuncture / Unknown 01/16/2025 12:36 AM EST 01/16/2025 12:41 AM EST Narrative [facility] - 01/16/2025 1:15 AM EST OPTIMAL INR RANGES FOR PATIENT ON ORAL ANTICOAGULANT THERAPY Prevention of venous thromboembolism INR 2.0 to 3.0 In patients with heart disease: Atrial fibrillation INR 2.0 to 3.0 Valvular heart disease INR 2.0 to 3.0 Tissue heart valves INR 2.0 to 3.0 Mechanical prosthetic valves INR 2.5 to 3.5 Prevention of recurrent MO INR 2.5 to 3.5 us Fransisco Gaston MD LAB BLOOD ORDERABLES Final Result [facility] [address] [place] [address] * Type and Screen (01/16/2025 12:36 AM [...] TEST ORDERABLES Final Result Performing Organization Address City/[facility] Co de Phone Number BLOOD BANK [address] [place] [address] documented in this encounter Visit Diagnoses Diagnosis [...] PRN, Starting on Wed01/16/25 at 0017, Until Wed01/18/25 at 1212, Routine, Moderate Severe Pain with [...] PRN, Starting on 01/21/25 at 1128, Until Tu01/23/25 at 1513, Routine, constipation magnesium sulfate IVPB [...] on Wed01/16/25 at 0130, Last dose on 01/20/25 at 0900, Routine Given 01/20/2025 8:30 AM [...] 8:53 AM EST 30 mg nystatin (Mycostatin) [id number] UNIT/GM powder 1 Application Topical, 2 times [...] Christina Fritz RN) 0842 (Given - Provider: Felias Whitlock, RAI)2142 (Given - Provider: Christina Fritz RN) 0821 [...] Whitlock, RAI)1754 (Given - Provider: Felisa Whitlock, RN) 0821 (Given - Provider: Ariadne Adame, RAI) insulin glargine-yfgn 100 UNIT/ML injection 5 Units 5 Units, Subcutaneous, Daily, First dose on Wed01/20/25 at 1315, Until Discontinued, Routine 0853 (Given - Provider: David Wheeler RN) 0842 (Given - Provider: Felisa Whitlock, RAI) 0821 (Given - Provider: Ariadne Adame RN) insulin lispro (Admelog) 100 units/mL injection - [...] Provider: Felisa Whitlock RN)2144 (Given - Provider: Crhistina Fritz RN) 0836 (Given - Provider: Ariadne Adame, RAI) NIFEdipine XL (Procardia XL) 24 hr tablet 30 mg 30 mg, Oral, Daily, First dose on Wed01/16/25 at 1030, Until Discontinued, Routine 0853 (Given - Provider: David Wheeler RN) 0842 (Given - Provider: Felisa Whitlock, RAI) 0821 (Given - Provider: Ariadne Adame, RAI) nystatin (Mycostatin) [id number] UNIT/GM powder 1 Application Topical, 2 times daily, First dose on Wed01/16/25 at 0900, Until Discontinued, Routine 0853 (Given - Provider: aDvid Wheeler RN)7 (Given - Provider: Christina Fritz RN) 0844 [...] Oral, 2 times daily, First dose on 01/21/25 at 1215, Until Discontinued, Routine 1232 (Given - Provider: David Wheeler RN)211 (Given - Provider: Christina Fritz RN) 0842 (Given - Provider: Felisa Whitlock, RAI)2143 (Given - Provider: Christina Fritz RN) 0820 (Given - Provider: Ariadne Adame RN) sodium chloride 0.9 % flush 10 mL 10 mL, Intravenous, Every 12 hours, First dose on Wed01/16/25 at 0130, Until Discontinued, Routine 0150 (Canceled Entry - Provider: Christina Fritz RN)1326 (Not Given - Provider: David Wheeler RN - Reason: Patient/Family/Repre sentative Refused) 0119 (Canceled Entry - Provider: Chrsitina Fritz RN)1255 (Canceled Entry - Provider: Felisa Whitlock, RAI) 0130 (Canceled Entry - Provider: Felisa Whitlock [...] 0107, Until Wed01/23/25 at 1513, Routine, sleep 2116 (Given - Provider: Christina [...] RN) 0841 (Given - Provider: Felisa Whitlock, RN)2143 (Given - Provider: Christina Fritz, RAI) simethicone (Mylicon) chewable tablet 80 mg 80 [...] documented as of this encounter Care Teams Supervisor [employer] Relationship Specialty Start Date End Date Chase Gunn MD [address] [place] [address] PCP - General 06/21/20 documented as of this encounter
--- OUTSIDE RECORDS SUMMARY | 2025-01-16 15:00 | XMS_ITS | Encounter Summary ---
Author Organization Healthcare Address [address] [place] [address] Care Team Providers Care Solar Lab Technician Name Role Phone Chase Gunn MD Primary Care Provider + [phone] Reason for Visit * Auth/Cert (Routine) Specialty Diagnoses / Procedures Referred By Rick roman Referred To Contact Diagnoses Sepsis (CMS/HCC) infected spinal cord stimulator, MRSA Demar Jiménez MD [address] [place] [address] Phone: tel: fax: P[facility] A Inpatient [address] [place] [address] Referral ID Status Reason Start Date Expiration Date Visits Re quested Visits Authorized [id number] 1 1 Encounter Details Date Type Department Care Team (Late st Contact Info) Description 01/16/2025 3:00 PM EST - 01/16/2025 5:10 PM EST Surgery [facility] A OPERATING ROOM [address] [place] [id number] Fransisco Farley MD [address] [facility] [address] [place] [id number] EXPLORATION, WOUND, POSSIBLE SCS REMOVAL/REVISION, ALL OTHER INDICATED PROCEDURES [ (CPT )] Surgery Details Date/Time Status Location OR Service Patient Class Case Class Case Type Trauma Case? 01/16/2025 3:00 PM Posted PK OR PAVA OR 03 Neurosurgery Inpatient E1 - Elective (Do not proceed without financial clearance) Panel 1 Procedure LRB Anes Op Region Wound Class Comments EXPLORATION, WOUND, POSSIBLE SCS REMOVAL/REVISION, ALL OTHER INDICATED PROCEDURES N/A General Back Surgeon Surgeon Role Service Panel Fransisco Farley MD Primary Neurosurger y 1 Janene Terrell MD Resident - Assisting 1 documented in this encounter Social History Tobacco Use Types Packs/Day Years [...] any time in the past 12 m [facility], were you homeless or living in a skilled nursing (including now)? No 01/16/2025 [facility] Utilities Answer Date Recorded In the past 12 months has e electric, gas, oil, or water company [...] Sign Reading Time Taken Comments Blood Pressure 158/90 01/16/2025 3:09 PM EST Pulse 86 01/16/2025 3:09 PM EST Temperature 36.9 C (98.5 F) 01/16/2025 3:09 PM EST Respiratory Rate 27 01/16/2025 3:09 PM EST Oxygen Saturation 93% 01/16/2025 3:09 PM EST Inhaled Oxygen Concentration - - Weight 96.6 kg (213 lb) 01/16/2025 3:05 PM EST Height 160 cm (5' 3 ) 01/16/2025 3:05 PM EST Body Mass Index 37.61 01/16/2025 3:05 PM EST documented in this encounter Functional Status * Question Answer Date of Assessment Author Precautions Environmental surveillance;None 01/16/2025 2:52 PM EST Mindy Alarcon RN * Calculated C-SSRS Risk Score (Lifetime/Recent) Answer Date of Assessment Author No Risk Indicated 01/16/2025 8:00 AM EST Ofelia Osei RN * Question Answer Date of Assessment Author 1. Wish to be (Past 1 Month) No 025 8:00 AM Ofelia Gupta RN 2. Non-Specific Active Suici christie Thoughts (Past 1 Month) No 01/16/2025 8:00 AM EST Rufino Osei RN 6. Suicidal Behavior (Lifetime) No 8:00 AM Ofelia Gupta RN documented as of this encounter Mental Status * Question Answer Entry Date Author Precautions Environmental surveillance;None 01/16/2025 2:52 PM EST Mindy Alarcon RN documented in this encounter Medications at [...] Take 1 tablet by mouth daily. 12/07/2024 Multiple Vitamins-Minerals (ONE-A-DAY WOMENS PO) Take 1 [...] from the original note were not included. 93314 What is Sepsis? Sepsis is a very [...] (ICU). Last Reviewed Date: 2024 00:00:00 ?? 4341-6625 [employer]. All rights reserved. This information is not intended as a substitute for professional medical care. Always follow your healthcare professional's instructions. * Inga LozanoFHJerome Hercules, RAI - 01/23/2025 12:18 PM EST Images from the original note were not included. 13707 Understanding Sepsis Sepsis is a life-threatening problem [...] . Last Reviewed Date: 2024 00:00:00 ?? 0519-4127 [employer]. All rights reserved. This information is not intended as a substitute for professional medical care. Always follow your healthcare professional's instructions. * [facility] - Jerome Henderson RN - 01/23/2025 12:18 PM EST Images from the original note were not included. [id number] Bacteremia, Suspected (Adult) Bacteremia is a bacterial [...] infection (pneumonia) ? Infection of a medical coding auditor placed in a vein or the bladder [...] provider Last Reviewed Date: 2024 00:00:00 ?? 3435-1954 [employer]. All rights reserved. This information is not intended as a substitute for professional medical care. Always follow your healthcare professional's instructions. * Progress Notes - Amanda Meza RN - 01/23/2025 10:13 AM EST Case Management Discharge Note Rosa Perdomo 74 y.o. female CSN: [id number] Admission: 01/15/2025 9:57 PM Primary Problem: Postoperative sepsis (CMS/HCC) Primary Film Developing Machine Operator: Patient is going to [facility] where staff can assist with care needs Assistance Available at Discharge: Current Outpatient/Agency/Support Group: clinic(s), DME Availability of Care Givers (#Hours): 24 hours (staff at [facility] and [facility]) Family/Film Developing Machine Operator(s) Willingness Assessed to care for patient at home: Yes Family/Film Developing Machine Operator(s) Readiness Assessed to care for patient at home: Yes Housing Circumstances-Z Codes: Housing Circumstances (select all that apply): None Applicable Patient Referred to Financial or Community Resources: No community resources needed at this time. Going to [facility] Discharge Facility/Level of Care Needs: Discharge Facility/Level of Care Needs: 3-Residential Facility ([facility]) Patient's Choice of Community Agency(s): Patient's Choice of Community Agency(s): [facility] Patient/Family Anticipated Services at Transition: Patient/Family Anticipated Services at Transition: rehabilitation services, halfway ([facility]) DME/Equipment Needed after Discharge: Equipment Currently Used at Home: walker, rollator, shower chair Equipment Needed After Discharge: other (see comments) (per [facility]) Readmission Within the Last 30 Days: Readmission Within the Last 30 Days: no previous admission in last 30 days Medicare Documentation: Medicare Second Notice?: Yes Date Second Notice Completed: 01/22/25 Time Second Notice Completed: 1111 Medicare Second Notice Recieved By: patient Follow-up: Chase Gunn MD [address] [place] [address] [place] [address] Discharge Transportation: Transportation Anticipated: other (see comments) (W/C transport, picker machine operator at 2 pm.) Transportation Home at Discharge: Other(Comment) ( transport arranged for 2 pm today) Has [...] Has Acute recs, but request DESTINEY at [facility]. Per admissions (Stacey), they can accept patient today. Patient will need to be on Vancomycin for discharge, not Dapto. Number for report: [phone] (Unit 1) [place] Summary: [phone] Narcs: [facility] in [place] Transport: [facility] for [facility] Nurse, , Stacey (facility) and spouse notified [...] PCP name and Address: Chase Gunn MD [address] [place] [address] / [facility] [address] Referring provider name and address: Chase Gunn MD [address] [facility] [address] [place] [address] Chief Concern, Brief History of Present Illness, [...] at discharge. She was discharged to a halfway facility with a plan for continued IV [...] present. Discharge Disposition/Condition Disposition: Nursing facility (specify) [facility] Condition: Stable (s/sx potential problems absent or [...] Ongoing, Progressing Intervention: Promote Activity and Functional [place] Flowsheets Taken 01/22/20252050 Self-Care Promotion: independence encouraged BADL personal objects within reach Taken 01/22/20252017 Activity Assistance Provided: assistance, 2 people * Care Plan - Asher Walker DO - 01/22/2025 5:11 PM EST Spoke with pharmacy; daptomycin is not available at receiving facility so patient will remain on vancomycin post discharge. New OPAT note has been submitted. Please refer to OPAT note for complete details. Asher Walker DO Infectious Disease Fellow, PGY-5 Pager: [phone] Epic Chat Preferred * Care Plan - Asher Walker DO - 01/22/2025 5:07 PM EST ID [...] if intermittent) Please fax all labs to: [facility] OPAT Team Attn: Dr. Sinha Fax #: [phone] Appointments: Co-clinic with JORGE Keating, & Dr. Sinha on 01/31/2025 at 1:00pm at: [facility]: [address] [place] [address] (Select Option 3 for IV Antibiotic / PICC line related issues) For questions regarding OPAT prior to discharge, reach out to the OPAT team via Group[employer] Secure Chat (Group: OPAT Referral Team). For all questions regarding OPAT after discharge should be directed to the OPAT Team at (Select Option 3 for IV Antibiotics/PICC Issues) between 8am-5pm. After 5 pm, or during weekends/ holidays, please call the paging apple press operator at to reach the on-call ID [...] illness (recent C. diff), transferred here to [facility] from OSH for MRSA bacteremia. [...] Note Rosa Perdomo 74 y.o. female CSN: [id number] Admission: 01/15/2025 9:57 PM Primary Problem: Postoperative sepsis (CMS/HCC) Anticipated Discharge Date: 01/21 Has Discharge Plans Changed? No - [facility] Medicare Second Notice: Medicare Medicare Second [...] Has Acute recs, but request DESTINEY at [facility]. Per admissions (Stacey), they cannot accept patient on Daptomycin. Discussed with MD, will remain on Vancomycin through 02/13/24. Number for report: [phone] (Unit 1) [place] Summary: [phone] Narcs: [facility] in [place] Transport: Patient not qualifying for ambulance. Concerns over transfers into vehicle. Meets < 300% [facility]. W/C Transport arranged via CM office with [facility] Transport for 01/23 at 11 am. Nurse, , Stacey (facilility) and Patients spouse notified. CM will continue to follow for discharge needs. Amanda Meza RN * Progress Notes - Sierra Odonnell, PharmD - 01/22/2025 8:16 AM EST Pharmacokinetic [...] 75 min Date/Time of Most Recent Dose: 01/22/25305 C1 random (ug/mL): 29.1 mcg/mL C2 trough [...] will continue to follow, Submitted by: Sierra Odonnell, PharmIris 01/22/2025 8:16 AM * Care Plan - [...] and Optimize Oral Intake Flowsheets (Taken 01/22/2025 0748) Oral Nutrition Promotion: social interaction promoted Nutrition [...] Ongoing, Progressing Intervention: Promote Activity and Functional [place] Flowsheets Taken 01/22/2025 0756 Adaptive Equipment Use: use encouraged Taken 01/22/2025 0748 Activity Assistance Provided: assistance, 2 people Self-Care Promotion: independence encouraged adaptive equipment use encouraged * Care Plan - Christina Fritz RN - 01/22/2025 2:28 AM EST Problem: Adult Inpatient Plan of Care Goal: Plan of Care Review Outcome: Ongoing, Progressing Flowsheets (Taken 01/22/2025224) Progress: no change Outcome Evaluation: pt agrees [...] Skin Protection Flowsheets Taken 01/22/2025224 by Christina Fritz RN Pressure Reduction Devices: pressure-redistributing mattress utilized [...] Ongoing, Progressing Intervention: Promote Activity and Functional [place] Flowsheets Taken 01/22/2025224 Self-Care Promotion: independence encouraged [...] illness (recent C. diff), transferred here to [facility] from OSH for MRSA bacteremia. [...] Care Review Outcome: Ongoing, Progressing Flowsheets (Taken 01/21/20251127) Progress: no change Outcome Evaluation: pt agreeable [...] Ongoing, Progressing Intervention: Promote Activity and Functional [place] Flowsheets (Taken 01/21/20251127) Activity Assistance Provided: assistance, [...] Ongoing, Progressing Intervention: Promote Activity and Functional [place] Flowsheets Taken 01/20/20252101 Self-Care Promotion: independence encouraged BADL personal objects within reach Taken 01/20/20251999 Activity Assistance Provided: assistance, 2 people * Procedures - Cailin Ha RN - 01/20/2025 5:07 PM ESTAssociated Order(s): Insert PICC line Insert PICC line Date/Time: 01/20/2025 5:08 PM Performed by: Cailin Ha RN Authorized by: Cleve Deleon MD [place] Protocol: Verbal consent obtained?: Yes Written consent [...] preference. Patient position: Supine Catheter Lot #: [id number] Catheter [place] boatman: Docker Catheter placed: Single lumen Catheter size: 4 [...] illness (recent C. diff), transferred here to [facility] from OSH for MRSA bacteremia. [...] Identify and Manage Fall Risk Flowsheets (Taken 01/20/20251012) Safety Promotion/Fall Prevention: room organization consistent safety round/check completed Intervention: Prevent Skin Injury Flowsheets (Taken 01/20/20251012) Body Position: turned Skin Protection: incontinence pads utilized Intervention: Prevent and Manage VTE (Venous Thromboembolism) Risk Flowsheets (Taken 01/20/20251012) VTE Prevention/Management: bilateral SCDs (sequential compression devices) on education provided Intervention: Prevent Infection Flowsheets (Taken 01/20/20251012) Infection Prevention: single patient room provided hand hygiene promoted Goal: Optimal Comfort and Wellbeing Outcome: Ongoing, Progressing Intervention: Monitor Pain and Promote Comfort Flowsheets (Taken 01/20/20251012) Pain Management Interventions: medication (see MAR) Intervention: Provide Person-Centered Care Flowsheets (Taken 01/20/20251012) Trust Relationship/Rapport: questions encouraged Problem: Skin Injury Risk Increased Goal: Skin Health and Integrity Outcome: Ongoing, Progressing Intervention: Optimize Skin Protection Flowsheets (Taken 01/20/20251012) Activity Management: education provided Pressure Reduction Techniques: frequent weight shift encouraged Skin Protection: incontinence pads utilized Head of Bed (HOB) Positioning: HOB at 20-30 degrees Intervention: Promote and Optimize Oral Intake Flowsheets (Taken 01/20/20251012) Oral Nutrition Promotion: physical activity promoted Nutrition Interventions: food preferences provided Problem: Fall Injury Risk Goal: Absence of Fall and Fall-Related Injury Outcome: Ongoing, Progressing Intervention: Identify and Manage Contributors Flowsheets (Taken 01/20/20251012) Medication Review/Management: high-risk medications identified Self-Care Promotion: independence encouraged Intervention: Promote Injury-Free Environment Flowsheets (Taken 01/20/20251012) Safety Promotion/Fall Prevention: room organization consistent safety [...] Ongoing, Progressing Intervention: Promote Activity and Functional [place] Flowsheets (Taken 01/20/20251012) Activity Assistance Provided: assistance, 2 people Adaptive Equipment Use: other (see comments) Self-Care Promotion: independence encouraged * Care Plan - Christina Fritz RN - 01/20/2025 2:02 AM EST Problem: Adult Inpatient Plan of Care Goal: Plan of Care Review Outcome: Ongoing, Progressing Flowsheets (Taken 01/20/2025200) Progress: no change Outcome Evaluation: pt agrees [...] Identify and Manage Contributors Flowsheets (Taken 01/20/2025 020) Medication Review/Management: medications reviewed Self-Care Promotion: BADL personal objects within reach independence encouraged Intervention: Promote Injury-Free Environment Flowsheets (Taken 01/20/2025199) Safety Promotion/Fall Prevention: activity supervised clutter-free environment maintained fall prevention program maintained nonskid shoes/slippers when out of bed safety round/check completed Problem: Infection Goal: Absence of Infection Signs and Symptoms Outcome: Ongoing, Progressing Intervention: Prevent or Manage Infection Flowsheets (Taken 01/20/2025200) Infection Management: aseptic technique maintained Fever Reduction/Comfort Measures: lightweight bedding lightweight clothing Isolation Precautions: precautions maintained Problem: Self-Care Deficit Goal: Improved Ability to Complete Activities of Daily Living Outcome: Ongoing, Progressing Intervention: Promote Activity and Functional [place] Flowsheets Taken 01/20/2025200 Self-Care Promotion: BADL personal objects within reach [...] illness (recent C. diff), transferred here to [facility] from OSH for MRSA bacteremia. [...] Note Rosa Perdomo 74 y.o. female CSN: [id number] Admission: 01/15/2025 9:57 PM Primary Problem: Postoperative sepsis (CMS/HCC) Anticipated Discharge Date: 01/21 Has Discharge Plans Changed? No - home or agreeable to SNF (requesting [facility] if needed) Medicare Second Notice: Medicare Medicare Second Notice?: Yes Date Second Notice Completed: 01/19/25 Time Second Notice Completed: 1011 Medicare Second Notice Recieved By: patientNA at [...] placed. PT/OT recs for Acute. Patient requesting [facility] because it is closer to home. Spouse had also previously indicated that Is where they would want her to go. Spoke with Stacey at facility (admissions) who is reviewing. Referrals also sent to other facilities. CM will continue to follow for discharge needs. Amanda Meza RN * Progress Notes - Renae Resendiz, WEB ANALYTICS DEVELOPER, EDVIN - 01/19/2025 11:01 AM EST Images from [...] is no recent study available for direct rslw-vo-mjpv comparison. CT Lumbar Spine w IV Contrast [...] Value Units Date/Time Blood Culture (Aerobic/Anaerobet Set) [[id number]] Collected: 01/18/25 1323 Order Status: Sent Specimen: Blood, Venous Fungal Culture, Routine [[id number]] Collected: 01/16/25 1605 Order Status: Completed Specimen: Abscess from Back, Lower Updated: 01/18/25 1041 Culture No Fungal Growth <1 Week Fungal Culture, Tissue and DEANDRE [[id number]] Collected: 01/16/25 1614 Order Status: Completed Specimen: Foreign Body from Back, Lower Updated: 01/18/25 1022 Culture Reading Mycological 4 Weeks No Fungal Growth <1 Week DEANDRE Source not suitable for smear Blood Culture (Aerobic/Anaerobet Set) [[id number]] Collected: 01/16/25 0128 Order Status: Completed Specimen: Blood from Hand, Right Updated: 01/18/25 0403 Culture No growth at day 2 Routine Culture and Gram Stain [[id number]] (Abnormal) Collected: 01/16/25 1614 Order Status: Completed Specimen: Foreign Body from Back, Lower Updated: 01/17/25 1327 Culture Heavy Growth 4+ Biotype 1 Staphylococcus aureus 2+ Biotype 2 Staphylococcus aureus Abscess Culture and Gram Stain [[id number]] (Abnormal) Collected: 01/16/25 1605 Order Status: Completed [...] Non Respiratory Source and Acid Fast Stain [[id number]] Collected: 01/16/25 161 Order Status: Completed Specimen: Foreign Body from Back, Lower Updated: 01/17/25 0557 Acid Fast Stain Source not suitable for smear Anaerobic Culture [[id number]] Collected: 01/16/25 160 Order Status: Sent Specimen: Abscess from Back, Lower Updated: 01/16/251709 AFB Culture, Non Respiratory Source and Acid Fast Stain [[id number]] Collected: 01/16/25 160 Order Status: Canceled Specimen: Abscess from Back, Lower Updated: 01/16/251709 Fungal Culture, Sterile Body Fluid (NOT CSF) and DEANDRE [[id number]] Collected: 01/16/251604 Order Status: Canceled Specimen: Abscess from Back, Lower Updated: 01/16/251709 Anaerobic Culture [[id number]] Collected: 01/16/251613 Order Status: Sent Specimen: Foreign Body from Back, Lower Updated: 01/16/250 Antimicrobials: -- Vancomycin IV 1500mg Q24H 01/16 - present -- Cefepime IV 2g Q12H 01/16 - 01/17 -- Metronidazole PO 500mg Q8H 01/16 - 01/17 Assessment: Patient Summary: Rosa Perdomo is a 74 y.o. female with history of DM2, hypertension, depression and anxiety, GERD was transferred to [facility] from outside facility for concern of MRSA bacteremia on 01/15. About 3 weeks ago she underwent spinal cord stimulator placement for spinal arthritis pain management. Blood cultures obtained at the facility (01/14) showed MRSA and she was transferred to [place] for further management. Blood cultures collected at [place] on 01/16 show NGTD. TIFFANIELEIDY took her to the OR 01/16 for explantation of her stimulator device with purulence noted. NSGY started Ms. Perdomo on cefepime and metronidazole post- operatively, however these were discontinued 01/17. PICC was placed 01/15 at OSH - unfortunately, it appears that this line was placed before blood cultures were cleared at [facility]. If 12/9 cultures continue to remain negative, however PICC [...] in their operative note. No indication of SCRUBBER MACHINE TENDER involvement. OPAT orders are in - will [...] goes out (sent message to primary team omayra) OPAT modified MDM attestation - Today, I [...] Note Rosa Perdomo 74 y.o. female CSN: [id number] Room/Bed 135/135A Nutrition evaluation type: follow-up Reason for evaluation: Hospital course: 74 y/o F presented as a transfer from OSH for MRSA bacteremia. 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 S/p device explantation on 01/16/25 with Neurosurgery. [...] Supplemental oxygen O2 Delivery Method: Nasal cannula [place] Coma Scale Score: 15 Isael Scale Score: [...] 37.74 Weight Evaluation: Obese-Class 2 (BMI 35-39.9) [place] Body Weight (kg): 52.2 Percent [place] Body Weight: 185 Adjusted Body Weight (kg): 63.4 Wt Readings from Last 10 Encounters: 01/16/25 96.6 kg (213 lb) 07/30/22 89.8 kg (198 lb) Estimated Needs: Metabolic Cart Study Results: Current Nutrition Intake: Diet Order: Adult Diet Diet Texture: Regular Adult Carbohydrate Restriction: Consistent CHO 2 (2284-9105 Feng, 80 g/meal) Percent Meals Eaten (%): 82% avg x 4 meals Diet Experience and Nutrition History: Diet Education Provided: Will monitor Pertinent home medications: Denominational needs: Nutrition Focused Physical Exam: Physical exam [...] chloride, 10 mL/hr, Last Rate: Stopped (01/19/25 0811) [5] PRN medications: bisacodyl, clonazePAM, glucose OR [...] Care Review Outcome: Ongoing, Progressing Flowsheets (Taken 01/19/2025 0913) Progress: no change Outcome Evaluation: pt agreeable to current POC Plan of Care Reviewed With: patient Goal: Patient-Specific Goal (Individualized) Outcome: Ongoing, Progressing Flowsheets (Taken 01/19/2025 0800) Patient/Family-Specific Goals (Include Timeframe): patient will remain [...] Reduction/Comfort Measures: lightweight bedding lightweight clothing Taken 01/19/2025 0800 Isolation Precautions: precautions maintained protective Problem: Self-Care Deficit Goal: Improved Ability to Complete Activities of Daily Living Outcome: Ongoing, Progressing Intervention: Promote Activity and Functional [place] Flowsheets Taken 01/19/2025 0913 Adaptive Equipment Use: used independently Self-Care Promotion: independence encouraged BADL personal objects within reach BADL personal routines maintained Taken 01/19/2025 0800 Activity Assistance Provided: assistance, 2 people * Progress Notes - Sierra Odonnell, PharmD - 01/19/2025 7:52 AM EST Pharmacokinetic [...] continue to follow, Submitted by: Sierra Odonnell PharmIris 01/19/2025 7:51 AM * Care Plan - [...] Ongoing, Progressing Intervention: Promote Activity and Functional [place] Flowsheets Taken 01/18/20251958 Self-Care Promotion: independence encouraged [...] illness (recent C. diff), transferred here to [facility] from OSH for MRSA bacteremia. [...] 01/18/2025 2:30 PM EST Pastoral Care Note Trust Administrative Assistant made follow up visit with Rosa and introductory visit with her family. They are aware ofPastoral Services and availability. Referral From: Trust Administrative Assistant Initiated Pastoral Care Provided For: Patient, Spouse, Child(odalis) Patient Profile: Consult Reasons: Initial visit Spiritual Assessment: Support Systems/ Spiritual Resources: Prayer Spiritual Needs: Emotional support Spiritual Issues: Change/ transition Interventions: Interventions Provided: Introduced Patient/Family to Trust Administrative Assistant Services Pastoral Care Outcomes: Patient Outcomes: Is knowledgeable about Quantitative Consultant Services Giancarlo Pradhan * Procedures - Ethel [...] PACS * Progress Notes - Renae Resendiz APRN, DNP - 01/18/2025 12:53 PM EST Images [...] is no recent study available for direct blaz-bw-wolj comparison. CT Lumbar Spine w IV Contrast [...] Value Units Date/Time Blood Culture (Aerobic/Anaerobet Set) [[id number]] Collected: 01/18/25 1323 Order Status: Sent Specimen: Blood, Venous Fungal Culture, Routine [[id number]] Collected: 01/16/25 1605 Order Status: Completed Specimen: Abscess from Back, Lower Updated: 01/18/25 1041 Culture No Fungal Growth <1 Week Fungal Culture, Tissue and DEANDRE [[id number]] Collected: 01/16/25 1614 Order Status: Completed Specimen: Foreign Body from Back, Lower Updated: 01/18/25 1022 Culture Reading Mycological 4 Weeks No Fungal Growth <1 Week DEANDRE Source not suitable for smear Blood Culture (Aerobic/Anaerobet Set) [[id number]] Collected: 01/16/25 0128 Order Status: Completed Specimen: Blood from Hand, Right Updated: 01/18/25 0403 Culture No growth at day 2 Routine Culture and Gram Stain [[id number]] (Abnormal) Collected: 01/16/251613 Order Status: Completed Specimen: Foreign Body from Back, Lower Updated: 01/17/25 1327 Culture Heavy Growth 4+ Biotype 1 Staphylococcus aureus 2+ Biotype 2 Staphylococcus aureus Abscess Culture and Gram Stain [[id number]] (Abnormal) Collected: 01/16/25 160 Order Status: Completed [...] Non Respiratory Source and Acid Fast Stain [[id number]] Collected: 01/16/251613 Order Status: Completed Specimen: Foreign Body from Back, Lower Updated: 01/17/25 0557 Acid Fast Stain Source not suitable for smear Anaerobic Culture [[id number]] Collected: 01/16/251604 Order Status: Sent Specimen: Abscess from Back, Lower Updated: 01/16/25 1710 AFB Culture, Non Respiratory Source and Acid Fast Stain [[id number]] Collected: 01/16/251604 Order Status: Canceled Specimen: Abscess from Back, Lower Updated: 01/16/25 1710 Fungal Culture, Sterile Body Fluid (NOT CSF) and DEANDRE [[id number]] Collected: 01/16/251604 Order Status: Canceled Specimen: Abscess from Back, Lower Updated: 01/16/25 1710 Anaerobic Culture [[id number]] Collected: 01/16/251613 Order Status: Sent Specimen: Foreign Body from Back, Lower Updated: 01/16/25 171 Antimicrobials: -- Vancomycin IV 1500mg Q24H 01/16 - present -- Cefepime IV 2g Q12H 01/16 - 01/17 -- Metronidazole PO 500mg Q8H 01/16 - 01/17 Assessment: Patient Summary: Rosa Perdomo is a 74 y.o. female with history of DM2, hypertension, depression and anxiety, GERD was transferred to [facility] from outside facility for concern of MRSA bacteremia on 01/15. About 3 weeks ago she underwent spinal cord stimulator placement for spinal arthritis pain management.Blood cultures obtained at the facility (01/14) showed MRSA and she was transferred to [place] for further management. Blood cultures collected at [place] on 01/16 show NGTD. NSLEIDY took her [...] in their operative note. No indication of SCRUBBER MACHINE TENDER involvement. OPAT orders are in - will [...] admitted 01/15/2025 for work-up of Postoperative sepsis ([facility]). Problem List Active Hospital Problems Diagnosis Date Noted Date Diagnosed Postoperative sepsis ([facility]) 01/16/2025 Mixed hyperlipidemia 01/16/2025 Cellulitis of back except buttock 01/16/2025 Major depressive disorder with single episode, in remission ([facility]) 01/16/2025 MRSA bacteremia 01/16/2025 MADELEINE (iron deficiency anemia) 01/16/2025 Gastroesophageal reflux disease without esophagitis 01/16/2025 Transaminitis 01/16/2025 Hypertension 02/29/2024 Diabetes mellitus 02/29/2024 Procedures 01/16/2025 Procedures: EXPLORATION, WOUND, POSSIBLE SCS REMOVAL/REVISION, ALL OTHER INDICATED PROCEDURES Past Medical History Patient has a past medical history of Abnormal EKG, Anemia, Breast cyst, CKD (chronic kidney disease) stage 3, GFR 30-59 ml/min ([facility]), Depression, Diabetes mellitus, Dyspnea, HLD (hyperlipidemia), HTN (hypertension), Mitral valve prolapse, Paroxysmal A-fib, RSV (respiratory syncytial virus infection), Sciatica, SVT (supraventricular tachycardia) ([facility]), and Trigger finger. Past Surgical History Patient has a past surgical history that includes Colonoscopy; Esophagogastroduodenoscopy; Wrist surgery; Hernia repair; and Cholecystectomy. Precautions Medical Precautions: Fall precautions, Seizure precautions Subjective Pt and RN agreeable to initial OT evaluation. Pt reports she has not been out of bed in days. Participants in Care Family/Caregiver Present: No Choir Singer: Not Applicable Presentation Oxygen Therapy: Supplemental oxygen [...] Spouse Level of Mobility: Ambulatory- community Mobility [place]: Independent gait without device History of Falls: [...] Mobility Bed Mobility Exam: Scooting/Bridging Level of [place]: Dependent (scooting hips forward to edge of bed) Physical/Nonphysical Assist: Verbal Cues, Nonverbal cues (demo/gestures), Maximal cues, Additional assist utilized for safety Bed Mobility Exam: Supine to Sit Level of [place]: Moderate assist (50% patient's effort) Physical/Nonphysical Assist: HOB elevated, Moderate cues, Verbal Cues Assistive Device: Bed rails Transfers Transfer Exam: Sit to stand Level of [place]: Moderate assist (50% patient's effort) (x2 reps from edge of bed - 1st rep COMBINER OPERATOR, 2nd rep to RW) Physical/Nonphysical Assist: Verbal Cues, Maximal cues, Additional assist utilized for safety Assistive Device: Walker, rolling Transfer Exam: Stand to Sit Level of [place]: Moderate assist (50% patient's effort) (poorly controlled descent) Physical/Nonphysical Assist: Verbal Cues, Maximal cues, Additional assist utilized for safety Assistive Device: Walker, rolling Transfer Exam: Bed to Chair/Chair to Bed Level of [place]: Moderate assist (50% patient's effort) (with significantly [...] a helper. 5 Set-up or Clean-up Assistance [place] sets up or cleans up; patient completes activity. [place] assists only prior to or following the activity. 4 Supervision or touching assistance [place] provides verbal cues and/or touching/steadying and/or contact guard assistance as patient completes activity. Assistance may be provided throughout the activity or intermittently. 3 Partial/Moderate Assistance [place] does LESS THAN HALF the effort. [place] lifts, holds or supports trunk or limbs, but provides less than half the effort. 2 Substantial/Maximal Assistance [place] does MORE THAN HALF the effort. [place] lifts or holds trunkor limbs and provides more than half the effort. 1 Dependent [place] does ALL of the effort. Patient does [...] AM EST Physical Therapy Evaluation Patient Name: oRsa Perdomo Today's Date: 01/18/2025 PT Discharge Recommendations: Acute rehab Equipment Recommended: Defer to facility History Rosa Perdomo is 74 y.o. female admitted 01/15/2025 for work-up of Postoperative sepsis ([facility]). Problem List Active Hospital Problems Diagnosis [...] kidney disease) stage 3, GFR 30-59 ml/min ([facility]), Depression, Diabetes mellitus, Dyspnea, HLD (hyperlipidemia), HTN (hypertension), Mitral valve prolapse, Paroxysmal A-fib, RSV (respiratory syncytial virus infection), Sciatica, SVT (supraventricular tachycardia) ([facility]), and Trigger finger. Past Surgical History Patient has a past surgical history that includes Colonoscopy; Esophagogastroduodenoscopy; Wrist surgery; Hernia repair; and Cholecystectomy. Precautions Medical Precautions: Fall precautions, Seizure precautions Subjective Pt was agreeable to therapy today. Pt was glad to get to the chair today to brush her hair and her teeth. Participants in Care Family/Caregiver Present: No Choir Singer: Not Applicable Presentation Oxygen Therapy: Supplemental oxygen [...] Spouse Level of Mobility: Ambulatory- community Mobility [place]: Independent gait without device History of Falls: [...] Mobility Bed Mobility Exam: Scooting/Bridging Level of [place]: Dependent (scooting hips forward to edge of bed) Physical/Nonphysical Assist: Verbal Cues, Nonverbal cues (demo/gestures), Maximal cues, Additional assist utilized for safety Bed Mobility Exam: Supine to Sit Level of [place]: Moderate assist (50% patient's effort) Physical/Nonphysical Assist: HOB elevated, Moderate cues, Verbal Cues Transfers Transfer Exam: Sit to stand Level of [place]: Moderate assist (50% patient's effort) (x2 reps from edge of bed - 1st rep COMBINER OPERATOR, 2nd rep to RW) Physical/Nonphysical Assist: Verbal Cues, Maximal cues, Additional assist utilized for safety Assistive Device: Walker, rolling Transfer Exam: Stand to Sit Level of [place]: Moderate assist (50% patient's effort) (poorly controlled descent) Physical/Nonphysical Assist: Verbal Cues, Maximal cues, Additional assist utilized for safety Assistive Device: Walker, rolling Transfer Exam: Bed to Chair/Chair to Bed Level of [place]: Moderate assist (50% patient's effort) (with significantly [...] below. Therapeutic Exercise (8 minutes) Access Code: [email or web address] URL: [email or web address] Date: 01/18/2025 Prepared by: Pk Exercises - [...] exercises. Pt demonstrated verbal understanding. Standardized Assessments [facility] 6-Clicks Mobility Assessment Difficulty patient [...] 3-5 steps with a railing?: A lot [facility] 6-Clicks Mobility Assessment Total : [...] 1025 Nutrition Interventions: diet adjusted Taken 01/18/2025 08 Oral Nutrition Promotion: social interaction promoted Problem: [...] Note Rosa Perdomo 74 y.o. female CSN: [id number] Admission: 01/15/2025 9:57 PM Primary Problem: Postoperative sepsis (CMS/HCC) Anticipated Discharge Date: 01/23 Has Discharge Plans Changed? No - home or agreeable to SNF (requesting [facility] if needed) Medicare Second Notice: NA [...] orders and - eval pending. Patient requesting [facility] if needed. CM will continue to follow for discharge needs. Addendum: PT/OT recs for Acute rehab. Difference between Acute and Subacute explained to patient. Patient states she would like to go to [facility] as it is closer to home. Attempted to reach spouseper patient request to also discuss with him. Unable to reach, unable to leave . Referrals to be made for [facility] when therapy notes are in. left for admissions at [facility]. Amanda Meza RN * Care Plan - Christina Fritz RN - 01/18/2025 12:37 AM EST Problem: Adult Inpatient Plan of Care Goal: Plan of Care Review Outcome: Ongoing, Progressing Flowsheets (Taken 01/18/2025 0036) Progress: no change Outcome Evaluation: POC reviewed [...] Pain and Promote Comfort Flowsheets (Taken 01/17/2025 8603) Pain Management Interventions: medication (see MAR) Intervention: [...] lightweight bedding Isolation Precautions: precautions maintained * [place] - Giancarlo Pradhan 01/17/2025 8:45 PM EST Pastoral Care Note Trust Administrative Assistant visited with Rosa, she reports she wants a visit but this is not the best time. Chaplainwill follow up tomorrow as able. Referral From: Trust Administrative Assistant Initiated Pastoral Care Provided For: Patient Patient Profile: Consult Reasons: Initial visit Spiritual Assessment: Support Systems/ Spiritual Resources: Family Spiritual Needs: Emotional support Interventions: Interventions Provided: Introduced Patient/Family to Trust Administrative Assistant Services Pastoral Care Outcomes: Patient Outcomes: Is knowledgeable about Quantitative Consultant Services Giancarlo Pradhan * Progress Notes - [...] illness (recent C. diff), transferred here to [facility] from OSH for MRSA bacteremia. [...] Single Lumen PICC Patient Specific Outpatient Circumstances: [address] [place] [address] Contact information Rosa Perdomo [phone] (home) Extended Emergency Contact Information Primary Emergency Contact: Westley Perdomo [place] Relation: Spouse Choir Singer needed? No Secondary Emergency Contact: Oumou Ocasio Relation: Daughter Outpatient services (including home infusion, home health, facility referral: See recent [facility] case management/social work note for finalization of services ID follow up appointment: Future Appointments Date Time Provider Department Center 01/31/2025 1:00 PM Dona Nava PA [id number] [place] Patient Assessment After review and discussion with the ID physician, the patient is currently enrolled in the Modified OPAT program. Patient is unable to administer IV antimicrobial therapy at home. But is appropriated for the Modified OPAT program. Please direct questions to OPAT referral team, another member of the OPAT team, or the ID consulting provider via secure chat or staff messaging in [facility]. OPAT Modified program for IV antimicrobial therapy [...] Willie Shrestha (insert ID provider) Fax #: [phone] Appointments: (Co-clinic 01/31/2025 Insert ID Provider; date and time) at: [facility]: [address] [place] [address] (Select Option 3 for IV Antibiotic / PICC line related issues) For questions regarding OPAT prior to discharge, reach out to the OPAT team via [employer] Secure Chat (Group: OPAT Referral Team). For all questions regarding OPAT after discharge should be directed to the OPAT Team at (Select Option 3 for IV Antibiotics/PICC Issues) between 8am-5pm. After 5 pm, or during weekends/ holidays, please call the paging apple press operator at to reach the on-call ID [...] Note Rosa Perdomo 74 y.o. female CSN: [id number] Admission: 01/15/2025 9:57 PM Primary Problem: Postoperative sepsis (CMS/HCC) Anticipated Discharge Date: 01/23 Has Discharge Plans Changed? No - home or agreeable to SNF (requesting [facility] if needed) Medicare Second Notice: NA at [...] orders and - eval pending. Patient requesting [facility] if needed. CM will continue to [...] Please call with any questions or concerns. [phone] Collins Thorne MD Resident Physician, PGY-1 Department of Neurosurgery [facility] Cosigned by Fransisco Farley MD at 01/17/2025 [...] PM EST Operative Note Date: 01/16/2025 Location: [place] [facility] Name: Rosa Perdomo, : 1950, Diagnoses: Pre-op Diagnosis MRSA bacteremia Infection of spinal cord stimulator, initial encounter Wound infection Post-op Diagnosis MRSA bacteremia Infection of spinal cord stimulator, initial encounter Wound infection Procedure(s): Explantation of entire spinal cord stimulator system (leads and IPG) Irrigation and debridement of midline lumbar and right paraspinal wounds Attending Surgeon(s): * Fransisco Farley - Primary Hydroelectric Station Chief(s): * Janene Terrell MD - Resident - Assisting Anesthesia: General ASA: III Blood Administration: Blood Product Administration History None Estimated Blood Loss: 10 cc Drains: Urethral Catheter Non-latex 16 Fr. (Active) Site Assessment Clean;Skin intact 01/16/25 150 CAUTI: Collection Container Standard drainage bag 01/16/25 150 CAUTI: Securement Method Securing device (Describe) 01/16/25 08 CAUTI: Specimen Collection Port Covered with Alcohol Cap Yes 01/16/25 150 CAUTI: Urinary Catheter Indication Yes, meets indication reason 01/16/25 150 CAUTI: Urinary Catheter Indication Reasons Documented acute urinary retention or obstruction 01/16/25 08 Output (mL) 1000 mL 01/16/25 0900 Specimen: Specimens ID Source Frozen? A Back, Lower Description: Flank Abscess B Back, Lower Description: Hardware for culture Findings: Right paraspinal/flank abscess within IPG pocket tracking into midline lumbar wound. Indications: Rosa Perdomo is an 74 y.o. lady with SCS stimulator placed recently by [facility], presentingwith sepsis, MRSA bacteremia, found to have [...] by: Janene Terrell MD - 01/16/2025 Attending Talat - Fransisco Yarbrough MD: I saw and [...] depression and anxiety, GERD was transferred to [facility] from outside facility for concern [...] showed MRSA and she was transferred to [place] for further management. It appears that prior to the [facility] a PICC was placed while blood cultures were pending. Upon admission at [place], no discharge was noted, but extensive cellulitis [...] Value Units Date/Time Blood Culture (Aerobic/Anaerobet Set) [[id number]] Collected: 01/16/25 0128 Order Status: Completed Specimen: Blood from Hand, Right Updated: 01/16/25 0501 Culture Culture in lab Antimicrobials: -- Vancomycin [id number] 01/16 - present -- Cefepime IV 2g Q12H 01/16 - present -- Metronidazole PO 500mg Q8H 01/16 - present Assessment: Patient Summary: Rosa Perdomo is a 74 y.o. female with history of DM2, hypertension, depression and anxiety, GERD was transferred to [facility] from outside facility for concern of MRSA bacteremia on 01/15. About 3 weeks ago she underwent spinal cord stimulator placement for spinal arthritis pain management. Blood cultures obtained at the facility (01/14) showed MRSA and she was transferred to [place] for further management. Blood cultures collected at [place] on 01/16 show NGTD. VINCENT took her [...] Orders (From admission, onward) Start Ordered 01/16/25 050 Wound ostomy eval and treat 2 Wounds Associated Once Comments: See LDA 01/16/25 050 Wound Assessment: Wound 01/16/25 Traumatic Skin Tear Leg Anterior;Left;Upper;Inner (Active) Date First Assessed/Time First Assessed: 01/16/25425 Primary Wound Type: Traumatic Secondary Wound Type [...] using miconazole nitrate ointment BID. Wound Assessment [place];Denuded Rebecca-Wound Assessment Red;Rash Treatments Other (Comment) (ordered [...] Progressing Intervention: Optimize Skin Protection Flowsheets Taken 01/16/2025 1200 Pressure Reduction Techniques: frequent weight shift encouraged Skin Protection: incontinence pads utilized Taken 01/16/2025 08 Activity Management: activity encouraged Head of Bed (HOB) Positioning: HOB elevated Problem: Fall Injury Risk Goal: Absence of Fall and Fall-Related Injury Outcome: Ongoing, Progressing Intervention: Promote Injury-Free Environment Flowsheets (Taken 01/16/2025 0800) Safety Promotion/Fall Prevention: activity supervised assistive device/personal items within reach clutter-free environment maintained fall prevention program maintained lighting adjusted mobility aid in reach nonskid shoes/slippers when out of bed room organization consistent safety round/check completed toileting scheduled Problem: Infection Goal: Absence of Infection Signs and Symptoms Outcome: Ongoing, Progressing Intervention: Prevent or Manage Infection Flowsheets Taken 01/16/2025 1200 Infection Management: aseptic technique maintained Fever Reduction/Comfort Measures: lightweight bedding lightweight clothing Taken 01/16/2025 0800 Isolation Precautions: contact precautions maintained * Progress Notes - Amanda Meza RN - 01/16/2025 10:21 AM EST Case Management Adult Initial Progress Note Rosa Perdomo 74 y.o. female CSN: [id number] Admission: 01/15/2025 9:57 PM Primary Problem: Postoperative sepsis (CMS/HCC) Roll Weigher reviewed chart and spoke with patient and spouse at bedside to complete this Initial Case Management Assessment. PCP: Chase Gunn MD Emergency Contact: Extended Emergency Contact Information Primary Emergency Contact: Westley Perdomo Relation: Spouse Choir Singer needed? No Secondary Emergency Contact: Oumou Ocasio Relation: Daughter Insurance: Primary Visit Coverage Payer Plan Sponsor Code Group Number Group Name MEDICARE MEDICARE A & B -- -- -- Primary Visit Coverage Subscriber Subscriber ID Subscriber Name Subscriber SSN Subscriber Address [id number] ROSA PERDOMO [id number] [place] [address] Secondary Visit Coverage Payer Plan Sponsor Code Group Number Group Name DORENEGIANA CATHERINEGIANA ZURITA -- [id number] -- Secondary Visit Coverage Subscriber Subscriber ID Subscriber Name Subscriber N Subscriber Address [id number] WESTLEY PERDOMO -- [address] [place] [address] Patient information: Primary Caregiver: Self Accompanied by/Relationship: spouse Support System: Immediate family Daily Living Activities: Functional Status: Independent Living Arrangements: Spouse/Significant other Type of Residence: Private residence, Multi Level (lives only on first floor, ramp entry) [address] [place] [address] Smoker in the Home?: Yes Current DME: [...] HD and HI Living Will/Advance Directive/Power of Automatic Presser /Guardian: Have you reviewed your Advance Directive [...] is recommended, would like to go to [facility]. CM will continue to follow for discharge needs. Amanda Meza RN * Consults - Nani Leija RD - 01/16/2025 9:06 AM ESTAssociated Order(s): IP CONSULT TO NUTRITION SERVICES Adult Nutrition Evaluation Note Rosa Perdomo 74 y.o. female CSN: [id number] Room/Bed 135/135A Nutrition evaluation type: assessment Reason for evaluation: provider consult Hospital course: 74 y/o F presented as a transfer from OSH for MRSA bacteremia. 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 To OR 01/16 for exploration vs removal [...] (98.6 ??F) Oxygen Therapy: None (Room air) [place] Coma Scale Score: 15 Isael Scale Score: [...] 37.81 Weight Evaluation: Obese-Class 2 (BMI 35-39.9) [place] Body Weight (kg): 52.2 Percent [place] Body Weight: 185 Adjusted Body Weight (kg): 63.4 Wt Readings from Last 10 Encounters: 01/15/25 96.8 kg (213 lb 6.5 oz) 07/30/22 89.8 kg (198 lb) Estimated Needs: Metabolic Cart Study Results: Current Nutrition Intake: Diet Order: NPO Diet Experience and Nutrition History: Diet Education Provided: Will monitor Pertinent home medications: Denominational needs: Nutrition Focused Physical Exam: Physical exam [...] Please call with any questions or concerns. [phone] Collins Thorne MD Resident Physician, PGY-1 Department of Neurosurgery [facility] Attending Attestation - Fransisco Yarbrough MD: I saw and evaluated the patient with the residents. I discussed the case with the residents and agree with the plan of care as documented. * Care Plan - Cydney Valiente, RAI - 01/16/2025 5:27 AM EST Problem: Adult Inpatient Plan of Care Goal: Plan of Care Review Outcome: Ongoing, Not Progressing Flowsheets (Taken 01/16/2025524) Outcome Evaluation: POC reviewed with patient. Continue [...] and Manage Fall Risk Flowsheets (Taken 01/16/2025 05) Safety Promotion/Fall Prevention: activity supervised assistive device/personal items within reach Intervention: Prevent Skin Injury Flowsheets Taken 01/16/2025524 Skin Protection: transparent dressing maintained Taken 01/16/2025 0400 Body Position: weight shifting Intervention: Prevent and Manage VTE (Venous Thromboembolism) Risk Flowsheets (Taken 01/16/2025 0106) VTE Prevention/Management: bilateral SCDs (sequential compression devices) on Intervention: Prevent Infection Flowsheets (Taken 01/16/2025 0525) Infection Prevention: environmental surveillance performed equipment surfaces [...] Promote and Optimize Oral Intake Flowsheets (Taken 01/16/2025 0525) Oral Nutrition Promotion: physical activity promoted Nutrition [...] illness (recent C. diff), transferred here to [facility] from OSH for MRSA bacteremia. [...] Family History: Family History[3] Social History: Living: [place] [address] with family Marital Status: Alcohol Use: denies [...] for: O2SAT , BD , BE , NEX4FIX , PCO2 , PH , PO2 , [id number] Venous Blood Gas: No results found for: BDVEN , BEVEN , QLD3FPI , EON6ETW , PO2VEN , M6ZTKTOH , [id number] Microbiology: Results Procedure Component Value Units Date/Time Blood Culture (Aerobic/Anaerobet Set) [[id number]] Order Status: Sent Specimen: Blood, Venous Imaging [...] illness (recent C. diff), transferred here to [facility] from OSH for MRSA bacteremia. [...] L spine w/wo contrast pending -LR @ 100/[id number]-uiwmbrzu as appropriate -Continuous telemetry 2/ hospital transfer -SCDs for DVT prevention, hold [...] APRN Department of Internal Medicine Division of Hospital Medicine Secure chat preferred [1] Past [...] at 01/16/25 0135, 100 mL/hr at 01/16/25 013 magnesium sulfate [...] PRN, Demar Jiménez MD, 5 mg at 01/16/25133 pantoprazole (Protonix) EC tablet 40 mg, 40 [...] 10 mL, Intravenous, q12h, 10 mL at 01/16/25 013 AND sodium chloride 0.9 % flush 10 [...] spinal cord stimulator (MRSA bacteremia) Requesting Service: Requested Date/Time: 01/15/2025 11:26 PM History Of [...] [facility] [address] [place] [address] Fransisco Farley MD [address] [place] [address] Pending Results Name Type Priority [...] - 99 mg/dL 01/23/2025 8:20 AM EST [facility] Comment:Accuracy [...] for testing. Comment 01/23/2025 8:20 AM EST [facility] Base Filler Operator ID Benji Gilbert 01/23/2025 8:20 AM EST [facility] Device ID [id number] 01/23/2025 8:20 AM EST [facility] Specimen Type POC Capillary 01/23/2025 8:20 AM EST [facility] Blood Capillary blood specimen / Unknown 01/23/2025 8:18 AM EST 01/23/2025 8:20 AM EST Merlin Massey MD LAB POINT OF CARE TE ST DOCKED DEVICE UNSOLICITED RESULTS Final Result [facility] [address] [place] [address] * (ABNORMAL) POCT glucose meter (01/22/2025 8:20 [...] Comment 01/22/2025 8:26 PM EST [facility] Base Filler Operator ID Felisa Sarmiento 025 8:26 PM EST [facility] Device ID [id number] 01/22/2025 8:26 PM EST [facility] Specimen Type POC Capillary 01/22/2025 8:26 PM EST [facility] Blood Capillary blood specimen / Unknown 01/22/2025 8:20 PM EST 01/22/2025 8:26 PM EST us Cleve Deleon MD LAB POINT OF CARE TE ST DOCKED DEVICE UNSOLICITED RESULTS Final Result Performing Organization Address City/State/[facility] Co de Phone Number [facility] [address] [place] [address] * (ABNORMAL) POCT glucose meter (01/22/2025 5:05 PM EST) [facility] POCT Glucose 188(H) 74 - 99 mg/dL 01/22/2025 5:06 PM EST [facility] Comment:Accuracy of a [...] for testing. Comment 01/22/2025 5:06 PM EST [facility] Base Filler Operator ID Jayy Travis 01/23/20 5:06 PM EST [facility] Device ID [id number] 01/22/2025 5:06 PM EST [facility] Specimen Type POC Capillary 01/22/2025 5:06 PM EST [facility] Blood Capillary blood specimen / Unknown 01/22/2025 5:05 PM EST 01/22/2025 5:06 PM EST us Quentinhreem K Ramay MD LAB POINT OF CARE TE ST DOCKED DEVICE UNSOLICITED RESULTS Final Result Performing Organization Address City/[facility]/ZIP Co de Phone Number [facility] [address] [place] [address] * (ABNORMAL) POCT glucose meter (01/22/2025 11:53 [...] for testing. Comment 01/22/2025 11:55 AM EST [facility] Base Filler Operator ID Jayy Travis 01/23/20 11:55 AM EST [facility] Device ID [id number] 01/22/2025 11:55 AM EST [facility] Specimen Type POC Capillary 01/22/2025 11:55 AM EST [facility] Blood Capillary blood specimen / Unknown 01/22/2025 11:53 AM EST 01/22/2025 11:55 AM EST us Cleve Deleon MD LAB POINT OF CARE TE ST DOCKED DEVICE UNSOLICITED RESULTS Final Result Performing Organization Address City/[facility] Co de Phone Number [facility] [address] [place] [address] * (ABNORMAL) POCT glucose meter (01/22/2025 7:51 AM EST) POCT Glucose 141(H) 74 - 99 mg/dL 01/22/2025 7:52 AM EST [facility] Comment:Accuracy of [...] for testing. Comment 01/22/2025 7:52 AM EST [facility] Base Filler Operator ID Jayy Travis 01/23/20 7:52 AM EST [facility] Device ID [id number] 01/22/2025 7:52 AM EST [facility] Specimen Type POC Capillary 01/22/2025 7:52 AM EST [facility] Blood Capillary blood specimen / Unknown 01/22/2025 7:51 AM EST 01/22/2025 7:52 AM EST us Cleve Deleon MD LAB POINT OF CARE TE ST DOCKED DEVICE UNSOLICITED RESULTS Final Result Performing Organization Address City/[facility]/ZIP Co de Phone Number [facility] [address] [place] [address] * Vancomycin, Peak, Plasma Please draw ~2 hours after 0300 dose on 01/22 finishes infusing. Consider obtaining level via peripheral stick. If peripheral stick is not feasible, please ensure that line is flushed well prior to drawing level. Thanks! (01/22/2025 6:32 AM EST) Vancomycin, Peak, Plasma 29.1 20.0 - 40.0 ug/mL 01/22/2025 7:07 AM EST [facility] Blood Venous blood specimen / Unknown Venipuncture / Unknown 01/22/2025 6:32 AM EST 01/22/2025 6:37 AM EST Narrative [facility] - 01/22/2025 7:07 AM EST Therapeutic Peak level: 20-40ug/mL Supra-therapeutic Peak level: >40 ug/mL us Cleve Deleon MD LAB BLOOD ORDERABLES Final Re sult [facility] [address] [place] [address] * Vancomycin, Trough, Plasma Please draw ~30 minutes prior to dose due at 0300 on 01/22. ??Please do NOT hold dose awaiting level to return. Consider obtaining level via peripheral stick. If peripheralstick is not feasible, please ensure that line/p... (01/22/2025 3:04 AM EST) Vancomycin, Trough, Plasma 13.7 10.0 - 20.0 ug/mL 01/22/2025 3:45 AM EST [facility] Blood Venous blood specimen / Unknown Venipuncture / Unknown 01/22/2025 3:04 AM EST 01/22/2025 3:15 AM EST Narrative [facility] - 01/22/2025 3:45 AM EST Therapeutic Trough level: 10-20ug/mL Supra-therapeutic Trough level: >20 ug/mL us Cleve Deleon MD LAB BLOOD ORDERABLES Final Re sult Performing Organization Address City/[facility]/ZIP Co de Phone Number [facility] [address] [place] [address] * (ABNORMAL) POCT glucose meter (01/21/2025 9:42 PM EST) [facility] POCT Glucose 186(H) 74 - 99 mg/dL 01/21/2025 9:43 PM EST [facility] Comment:Accuracy of a glucos [...] for testing. Comment 01/21/2025 9:43 PM EST [facility] Base Filler Operator ID GnauAlice 01/21/2025 9:43 PM EST [facility] Device ID [id number] 01/21/2025 9:43 PM EST [facility] Specimen Type POC Capillary 01/21/2025 9:43 PM EST [facility] Blood Capillary blood specimen / Unknown 01/21/2025 9:42 PM EST 01/21/2025 9:43 PM EST us Cleve Deleon MD LAB POINT OF CARE TE ST DOCKED DEVICE UNSOLICITED RESULTS Final Result Performing Organization Address City/[facility]/ZIP Co de Phone Number [facility] [address] [place] [address] * (ABNORMAL) POCT glucose meter (01/21/2025 5:12 PM EST) [facility] POCT Glucose 214(H) 74 - 99 mg/dL 01/21/2025 5:14 PM EST [facility] Comment:Accuracy of a [...] Comment 01/21/2025 5:14 PM EST [facility] Base Filler Operator ID Sabine Garrett 01/21/2025 5:14 PM EST [facility] Device ID [id number] 01/21/2025 5:14 PM EST [facility] Specimen Type POC Capillary 01/21/2025 5:14 PM EST [facility] Blood Capillary blood specimen / Unknown 01/21/2025 5:12 PM EST 01/21/2025 5:14 PM EST Cleve Deleon MD LAB POINT OF CARE TE ST DOCKED DEVICE UNSOLICITED RESULTS Final Result [facility] [address] [place] [address] * (ABNORMAL) POCT glucose meter (01/21/2025 12:15 PM EST) [facility] POCT Glucose 186(H) 74 - 99 mg/dL [...] 01/21/2025 12:20 PM EST [facility] Base Filler Operator ID Shelley Quinndax Hammer 01/21/2025 12:20 PM EST [facility] Device ID [id number] 01/21/2025 12:20 PM EST [facility] Specimen Type POC Capillary 01/21/2025 12:20 PM EST [facility] Blood Capillary blood specimen / Unknown 01/21/2025 12:15 PM EST 01/21/2025 12:20 PM EST us Cleve Deleon MD LAB POINT OF CARE TE ST DOCKED DEVICE UNSOLICITED RESULTS Final Result Performing Organization Address City/[facility] Co de Phone Number [facility] [address] [place] [address] * (ABNORMAL) POCT glucose meter (01/21/2025 8:15 [...] Comment 01/21/2025 8:19 AM EST [facility] Base Filler Operator ID Alysa Quinn 01/21/2025 8:19 AM EST [facility] Device ID [id number] 01/21/2025 8:19 AM EST [facility] Specimen Type POC Capillary 01/21/2025 8:19 AM EST [facility] Blood Capillary blood specimen / Unknown 01/21/2025 8:15 AM EST 01/21/2025 8:19 AM EST us Cleve Deleon MD LAB POINT OF CARE TE ST DOCKED DEVICE UNSOLICITED RESULTS Final Result Performing Organization Address City/[facility]/ZIP Co de Phone Number [facility] [address] [place] [address] * (ABNORMAL) POCT glucose meter (01/20/2025 7:48 [...] for testing. Comment 01/20/2025 7:49 PM EST [facility] Base Filler Operator ID Silva Coates 025 7:49 PM EST [facility] Device ID [id number] 01/20/2025 7:49 PM EST [facility] Specimen Type POC Capillary 01/20/2025 7:49 PM EST [facility] Blood Capillary blood specimen / Unknown 01/20/2025 7:48 PM EST 01/20/2025 7:49 PM EST Cleve Deleon MD LAB POINT OF CARE TE ST DOCKED DEVICE UNSOLICITED RESULTS Final Result Performing Organization Address City/State/[facility] Co de Phone Number [facility] [address] [place] [address] * XR Chest 1 View (01/20/2025 5:57 [...] Ha RN Authorized by: Cleve Deleon MD [place] Protocol: Verbal consent obtained?: Yes Written consent [...] preference. 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 Comment 01/20/2025 5:06 PM EST [facility] Base Filler Operator ID KatieJane 01/20/2025 5:06 PM EST [facility] Device ID [id number] 01/20/2025 5:06 PM EST [facility] Specimen Type POC Capillary 01/20/2025 5:06 PM EST [facility] Blood Capillary blood specimen / Unknown 01/20/2025 5:05 PM EST 01/20/2025 5:06 PM EST us Cleve Deleon MD LAB POINT OF CARE TE ST DOCKED DEVICE UNSOLICITED RESULTS Final Result [facility] [address] [place] [address] * (ABNORMAL) POCT glucose meter (01/20/2025 11:57 AM EST) [facility] POCT Glucose 228(H) 74 - 99 mg/dL [...] Comment 01/20/2025 11:59 AM EST [facility] Base Filler Operator ID Jane Wilson 01/20/2025 11:59 AM EST [facility] Device ID [id number] 01/20/2025 11:59 AM EST [facility] Specimen Type POC Capillary 01/20/2025 11:59 AM EST [facility] Blood Capillary blood specimen / Unknown 01/20/2025 11:57 AM EST 01/20/2025 11:59 AM EST Cleve Deleon MD LAB POINT OF CARE TE ST DOCKED DEVICE UNSOLICITED RESULTS Final Result Performing Organization Address [facility] Co de Phone Number [facility] [address] [place] [address] * SEND SARA MESSAGE (01/20/2025 11:02 AM EST) Urine Urine specimen obtained by clean catch procedure / Unknown Non-blood Collection / Unknown 01/20/2025 11:02 AM EST 01/20/2025 11:06 AM EST Cleve Deleon MD LAB URINE ORDERABLES Final Re sult [facility] [address] [place] [address] * (ABNORMAL) Urine Culture (01/20/2025 11:02 AM EST) [facility] Culture 10,000 - 100,000 CFU/mL Trista albicans(A) 01/22/2025 7:50 AM EST [facility] Comment:This isolate has bee n identified using the FDA Approved [employer] System Urine Urine specimen obtained by clean catch procedure / Unknown Non-blood Collection / Unknown 01/20/2025 11:02 AM EST 01/20/2025 11:06 AM EST us Cleve Deleon MD LAB MICROBIOLOGY - GENERAL OR DERABLES Final Result Performing Organization Address [facility]/ZIP Co de Phone Number [facility] [address] [place] [address] * Urinalysis Microscopic Examination (01/20/2025 11:02 AM EST) Urine Urine specimen obtained by clean catch procedure / Unknown Non-blood Collection / Unknown 01/20/2025 11:02 AM EST 01/20/2025 11:06 AM EST us Cleve Deleon MD LAB URINE ORDERABLES Final Re sult Performing Organization Address City/[facility] Co de Phone Number [facility] [address] [place] [address] * Urine Avery Panel (01/20/2025 11:02 AM EST) Extra Sent for Culture 01/20/2025 1:02 PM EST [facility] Urine Urine specimen obtained by clean catch procedure / Unknown Non-blood Collection / Unknown 01/20/2025 11:02 AM EST 01/20/2025 11:06 AM EST us Cleve Deleon MD LAB URINE ORDERABLES Final Re sult Performing Organization Address City/[facility] Co ks Phone Number [facility] [address] [place] [address] * (ABNORMAL) Urinalysis with reflex microscopic (Culture NOT Included) (01/20/2025 11:02 AM EST) Color, Urine Yellow LAB URINALYSIS - AUTOMATED METHOD 01/20/2025 11:24 AM EST [facility] Clarity, Urine Cloudy LAB URINALYSIS - AUTOMATED METHOD 01/20/2025 11:24 AM EST [facility] Spec [place], Urine 1.017 1.005 - 1.030 LAB URINALYSIS - AUTOMATED METHOD 01/20/2025 11:24 AM EST [facility] pH, Urine 6.5 5.0 - 8.0 LAB URINALYSIS - AUTOMATED METHOD 01/20/2025 11:24 AM [facility] Protein, Urine Trace(A) Negative mg/dL LAB URINALYSIS - AUTOMATED METHOD 01/20/2025 11:24 AM [facility] Glucose, Urine >=1000(A) Negative mg/dL LAB URINALYSIS - AUTOMATED METHOD 01/20/2025 11:24 AM [facility] Ketones, Urine Negative Negative mg/dL LAB URINALYSIS - AUTOMATED METHOD 01/20/2025 11:24 AM [facility] Blood, Urine Trace(A) Negative LAB URINALYSIS - AUTOMATED METHOD 01/20/2025 11:24 AM [facility] Bilirubin, Urine Negative Negative LAB URINALYSIS - AUTOMATED METHOD 01/20/2025 11:24 AM [facility] Urobilinogen, Urine 0.2 0.2 to 1.0 mg/dL LAB URINALYSIS - AUTOMATED METHOD 01/20/2025 11:24 AM [facility] Leukocytes, Urine Small(A) Negative LAB URINALYSIS - AUTOMATED METHOD 01/20/2025 11:24 AM [facility] Nitrite, Urine Negative Negative LAB URINALYSIS - AUTOMATED METHOD 01/20/2025 11:24 AM [facility] RBC, Urine 2 0 to 3 /HPF LAB URINALYSIS - AUTOMATED METHOD 01/20/2025 11:24 AM [facility] WBC, Urine >50(A) 0 to 5 /HPF LAB URINALYSIS - AUTOMATED METHOD 01/20/2025 11:24 AM [facility] Squamous Epithelial Cells 0 - 2 0 to 5 /HPF LAB URINALYSIS - AUTOMATED METHOD 01/20/2025 11:24 AM [facility] Hyaline Casts 3 - 5 0 to 5 /LPF LAB URINALYSIS - AUTOMATED METHOD 01/20/2025 11:24 AM [facility] Bacteria, Urine Negative Negative LAB URINALYSIS - AUTOMATED METHOD 01/20/2025 11:24 AM [facility] Yeast (Budding and/or Pseudohyphae) Present(A) Absent LAB URINALYSIS - AUTOMATED METHOD 01/20/2025 11:24 AM [facility] Urine Urine specimen obtained by clean catch procedure / Unknown Non-blood Collection / Unknown 01/20/2025 11:02 AM EST 01/20/2025 11:06 AM EST us Cleve Deleon MD LAB URINE ORDERABLES Final Re sult [facility] [address] [place] [address] * (ABNORMAL) POCT glucose meter (01/20/2025 8:03 AM EST) POCT Glucose 139(H) 74 - 99 mg/dL 01/20/2025 8:05 AM EST [facility] Comment:Accuracy of a glucos e result [...] for testing. Comment 01/20/2025 8:05 AM EST [facility] Base Filler Operator ID KatieJane 01/20/2025 8:05 AM EST [facility] Device ID [id number] 01/20/2025 8:05 AM EST [facility] Specimen Type POC Capillary 01/20/2025 8:05 AM EST [facility] Blood Capillary blood specimen / Unknown 01/20/2025 8:03 AM EST 01/20/2025 8:05 AM EST us Cleve Deleon MD LAB POINT OF CARE TE ST DOCKED DEVICE UNSOLICITED RESULTS Final Result [facility] [address] [place] [address] * (ABNORMAL) Creatine Kinase (CK), Total (01/20/2025 5:02 AM EST) Creatine Kinase, Plasma 290(H) 37 - 168 U/L 01/20/2025 5:37 AM EST [facility] Blood Venous blood specimen / Unknown Venipuncture / Unknown 01/20/2025 5:02 AM EST 01/20/2025 5:07 AM EST us Cleve Deleon MD LAB BLOOD ORDERABLES Final Re sult [facility] [address] [place] [address] * (ABNORMAL) Basic metabolic panel (01/20/2025 5:02 AM EST) Glucose, Plasma 151(H) 74 - 99 mg/dL 01/20/2025 5:37 AM EST [facility] BUN, Plasma 12 8 - 23 mg/dL 01/20/2025 5:37 AM EST [facility] Creatinine, Plasma 0.79 0.60 - 1.10 mg/dL 01/20/2025 5:37 AM EST [facility] BUN/Creatinine Ratio 15 01/20/2025 5:37 AM EST [facility] Sodium, Plasma 139 136 - 145 mmol/L 01/20/2025 5:37 AM EST [facility] Potassium, Plasma 3.6 3.6 - 4.9 mmol/L 01/20/2025 5:37 AM EST [facility] Chloride, Plasma 102 97 - 107 mmol/L 01/20/2025 5:37 AM EST [facility] CO2, Plasma 28 22 - 29 mmol/L 01/20/2025 5:37 AM EST [facility] Anion Gap 9 6 - 16 mmol/L 01/20/2025 5:37 AM EST [facility] Total Calcium, Plasma 8.2(L) 8.9 - 10.2 mg/dL 01/20/2025 5:37 AM EST [facility] eGFRcr 78.6 mL/min/1.7 3m*2 01/20/2025 5:37 AM EST [facility] Comment:Reported eGFRcr in m L/min/1.73m2 is based the CKD-EPI 2020 equation that does not use a race coefficient. Blood Venous blood specimen / Unknown Venipuncture / Unknown 01/20/2025 5:02 AM EST 01/20/2025 5:07 AM EST us Cleve Deleon MD LAB BLOOD ORDERABLES Final Re sult [facility] [address] [place] [address] * (ABNORMAL) POCT glucose meter (01/19/2025 8:10 PM EST) POCT Glucose 213(H) 74 - 99 mg/dL 01/19/2025 8:12 PM EST [facility] Comment:Accuracy of a glucos [...] for testing. Comment 01/19/2025 8:12 PM EST [facility] Base Filler Operator ID Silva Coates 025 8:12 PM EST [facility] Device ID [id number] 01/19/2025 8:12 PM EST [facility] Specimen Type POC Capillary 01/19/2025 8:12 PM EST [facility] Blood Capillary blood specimen / Unknown 01/19/2025 8:10 PM EST 01/19/2025 8:12 PM EST us Cleve Deleon MD LAB POINT OF CARE TE ST DOCKED DEVICE UNSOLICITED RESULTS Final Result Performing Organization Address City/[facility]/ZIP Co de Phone Number [facility] [address] [place] [address] * (ABNORMAL) POCT glucose meter (01/19/2025 5:32 PM EST) POCT Glucose 197(H) 74 - 99 mg/dL 01/19/2025 5:33 PM EST [facility] Comment:Accuracy of a glucos e result [...] Comment 01/19/2025 5:33 PM EST [facility] Base Filler Operator ID Aleyda Haley 01/19/2025 5:33 PM EST [facility] Device ID [id number] 01/19/2025 5:33 PM EST [facility] Specimen Type POC Capillary 01/19/2025 5:33 PM EST [facility] Blood Capillary blood specimen / Unknown 01/19/2025 5:32 PM EST 01/19/2025 5:33 PM EST us Cleve Deleon MD LAB POINT OF CARE TE ST DOCKED DEVICE UNSOLICITED RESULTS Final Result Performing Organization Address City/[facility] Co de Phone Number [facility] [address] [place] [address] * (ABNORMAL) POCT glucose meter (01/19/2025 12:21 PM EST) [facility] POCT Glucose 210(H) 74 - 99 mg/dL 01/19/2025 12:22 PM EST [facility] Comment:Accuracy of a [...] for testing. Comment 01/19/2025 12:22 PM EST [facility] Base Filler Operator ID Aleyda Haley 01/19/2025 12:22 PM EST [facility] Device ID [id number] 01/19/2025 12:22 PM EST [facility] Specimen Type POC Capillary 01/19/2025 12:22 PM EST [facility] Blood Capillary blood specimen / Unknown 01/19/2025 12:21 PM EST 01/19/2025 12:22 PM EST us Cleve Deleon MD LAB POINT OF CARE TE ST DOCKED DEVICE UNSOLICITED RESULTS Final Result Performing Organization Address City/[facility]/ZIP Co de Phone Number [facility] [address] [place] [address] * (ABNORMAL) POCT glucose meter (01/19/2025 8:18 AM EST) [facility] POCT Glucose 140(H) 74 - 99 mg/dL 01/19/2025 8:20 AM EST [facility] Comment:Accuracy of a [...] for testing. Comment 01/19/2025 8:20 AM EST [facility] Base Filler Operator ID Aleyda Haley 01/19/2025 8:20 AM EST [facility] Device ID [id number] 01/19/2025 8:20 AM EST [facility] Specimen Type POC Capillary 01/19/2025 8:20 AM EST [facility] Blood Capillary blood specimen / Unknown 01/19/2025 8:18 AM EST 01/19/2025 8:20 AM EST us Cleve Deleon MD LAB POINT OF CARE TE ST DOCKED DEVICE UNSOLICITED RESULTS Final Result Performing Organization Address City/[facility]/ZIP Co de Phone Number [facility] [address] [place] [address] * Phosphorus (01/19/2025 6:05 AM EST) [facility] Phosphorus, Plasma 3.0 2.5 - 4.5 mg/dL 01/19/2025 6:40 AM EST [facility] Blood Venous blood specimen / Unknown Venipuncture / Unknown 01/19/2025 6:05 AM EST 01/19/2025 6:15 AM EST us Cleve Deleon MD LAB BLOOD ORDERABLES Final Re sult [facility] [address] [place] [address] * Magnesium (01/19/2025 6:05 AM EST) [facility] Magnesium, Plasma 2.1 1.9 - 2.4 mg/dL 01/19/2025 6:40 AM EST [facility] Blood Venous blood specimen / Unknown Venipuncture / Unknown 01/19/2025 6:05 AM EST 01/19/2025 6:15 AM EST us Cleve Deleon MD LAB BLOOD ORDERABLES Final Re sult Performing Organization Address [facility] de Phone Number [facility] [address] [place] [address] * Vancomycin, Peak, Plasma Please draw ~2 hours after 0230 dose of vancomycin finishes infusing. Consider obtaining level via peripheral stick. If peripheral stick is not feasible, please ensure that line is flushed well prior to drawing level. Than... (01/19/2025 6:05 AM EST) Vancomycin, Peak, Plasma 39.7 20.0 - 40.0 ug/mL 01/19/2025 6:42 AM EST [facility] Blood Venous blood specimen / Unknown Venipuncture / Unknown 01/19/2025 6:05 AM EST 01/19/2025 6:15 AM EST Narrative [facility] - 01/19/2025 6:42 AM EST Therapeutic Peak level: 20-40ug/mL Supra-therapeutic Peak level: >40 ug/mL us Cleve Deleon MD LAB BLOOD ORDERABLES Final Re sult Performing Organization Address [facility] de Phone Number [facility] [address] [place] [address] * Vancomycin, Trough, Plasma Please draw ~30 minutes prior to dose due at 0230 on 01/19. Please do NOT hold dose awaiting level to return. Consider obtaining level via peripheral stick. If peripheral stick is not feasible, please ensure that line i... (01/19/2025 2:05 AM EST) Vancomycin, Trough, Plasma 16.4 10.0 - 20.0 ug/mL 01/19/2025 2:40 AM EST [facility] Blood Venous blood specimen / Unknown Venipuncture / Unknown 01/19/2025 2:05 AM EST 01/19/2025 2:12 AM EST Narrative [facility] - 01/19/2025 2:40 AM EST Therapeutic Trough level: 10-20ug/mL Supra-therapeutic Trough level: >20 ug/mL us Cleve Deleon MD LAB BLOOD ORDERABLES Final Re sult [facility] [address] [place] [address] * (ABNORMAL) POCT glucose meter (01/18/2025 10:05 PM EST) POCT Glucose 181(H) 74 - 99 mg/dL 01/18/2025 10:43 PM EST [facility] Comment:Accuracy of [...] for testing. Comment 01/18/2025 10:43 PM EST [facility] Base Filler Operator ID Felisa Sarmiento 025 10:43 PM EST [facility] Device ID [id number] 01/18/2025 10:43 PM EST [facility] Specimen Type POC Capillary 01/18/2025 10:43 PM EST [facility] Blood Capillary blood specimen / Unknown 01/18/2025 10:05 PM EST 01/18/2025 10:43 PM EST us Cleve Deleon MD LAB POINT OF CARE TE ST DOCKED DEVICE UNSOLICITED RESULTS Final Result [facility] [address] [place] [address] * (ABNORMAL) POCT glucose meter (01/18/2025 5:34 PM EST) POCT Glucose 227(H) 74 - 99 mg/dL 01/18/2025 9:25 PM EST [facility] Comment:Accuracy of [...] Comment 01/18/2025 9:25 PM EST [facility] Base Filler Operator ID Renae Mcleod 01/19/20 9:25 PM EST [facility] Device ID [id number] 01/18/2025 9:25 PM EST [facility] Specimen Type POC Capillary 01/18/2025 9:25 PM EST [facility] Blood Capillary blood specimen / Unknown 01/18/2025 5:34 PM EST 01/18/2025 9:25 PM EST us Cleve Deleon MD LAB POINT OF CARE TE ST DOCKED DEVICE UNSOLICITED RESULTS Final Result Performing Organization Address [facility] Co ks Phone Number [facility] [address] [place] [address] * Blood Culture (Aerobic/Anaerobet Set) (01/18/2025 1:23 PM EST) Culture No growth at day 5 SADA 01/23/2025 2:02 PM EST [facility] Blood Venous blood specimen / Unknown Venipuncture / Unknown 01/18/2025 1:23 PM EST 01/18/2025 1:34 PM EST us Cleve Deleon MD LAB MICROBIOLOGY - GENERAL OR DERABLES Final Result Performing Organization Address City/[facility] Co de Phone Number [facility] [address] [place] [address] * PERIPHERAL IV (SMARTFORM LINK) (01/18/2025 12:54 [...] - 99 mg/dL 01/18/2025 12:01 PM EST [facility] Comment:Accuracy of a glucos e result [...] for testing. Comment 01/18/2025 12:01 PM EST [facility] Base Filler Operator ID Renae Mcleod 01/19/20 12:01 PM EST [facility] Device ID [id number] 01/18/2025 12:01 PM EST [facility] Specimen Type POC Capillary 01/18/2025 12:01 PM EST [facility] Blood Capillary blood specimen / Unknown 01/18/2025 12:00 PM EST 01/18/2025 12:01 PM EST us Cleve Deleon MD LAB POINT OF CARE TE ST DOCKED DEVICE UNSOLICITED RESULTS Final Result [facility] [address] [place] [address] * (ABNORMAL) POCT glucose meter (01/18/2025 8:25 AM EST) POCT Glucose 146(H) 74 - 99 mg/dL 01/18/2025 8:27 AM EST [facility] Comment:Accuracy of a glucos e result [...] for testing. Comment 01/18/2025 8:27 AM EST [facility]ARE [facility] Base Filler Operator ID Renae Mcleod 01/19/20 8:27 AM EST [facility] Device ID [id number] 01/18/2025 8:27 AM EST [facility] Specimen Type POC Capillary 01/18/2025 8:27 AM EST [facility] Blood Capillary blood specimen / Unknown 01/18/2025 8:25 AM EST 01/18/2025 8:27 AM EST Cleve Deleon MD LAB POINT OF CARE TE ST DOCKED DEVICE UNSOLICITED RESULTS Final Result [facility] [address] [place] [address] * (ABNORMAL) CBC and Differential (01/18/2025 4:56 AM EST) WBC Count 10.71(H) 3.70 - 10.30 10*3/uL LAB HEMATOLOGY METHOD 01/18/2025 5:22 AM EST [facility] RBC Count 2.79(L) 3.90 - 5.20 10*6/uL LAB HEMATOLOGY METHOD 01/18/2025 5:22 AM EST [facility] HGB 9.0(L) 11.2 - 15.7 g/dL LAB HEMATOLOGY METHOD 01/18/2025 5:22 AM EST [facility] HCT 27.4(L) 34.0 - 45.0 % LAB HEMATOLOGY METHOD 01/18/2025 5:22 AM EST [facility] Platelet Count 400(H) 155 - 369 10*3/uL LAB HEMATOLOGY METHOD 01/18/2025 5:22 AM EST [facility] MCV 98 79 - 98 fL LAB HEMATOLOGY METHOD 01/18/2025 5:22 AM EST [facility] MCH 32.3(H) 26.0 - 32.0 pg LAB HEMATOLOGY METHOD 01/18/2025 5:22 AM EST [facility] MCHC 32.8 30.7 - 35.5 g/dL LAB HEMATOLOGY METHOD 01/18/2025 5:22 AM EST [facility] RDW 14.3 11.5 - 14.5 % LAB HEMATOLOGY METHOD 01/18/2025 5:22 AM EST [facility] MPV 9.0 8.8 - 12.5 fL LAB HEMATOLOGY METHOD 01/18/2025 5:22 AM [facility] nRBC 0.0 <=0.0 per 100 WBCs LAB HEMATOLOGY METHOD 01/18/2025 5:22 AM EST [facility] Differential Type Automated LAB HEMATOLOGY METHOD 01/18/2025 5:22 AM [facility] Neutrophils % 79 % LAB HEMATOLOGY METHOD 01/18/2025 5:22 AM EST [facility] Lymphocytes % 9 % LAB HEMATOLOGY METHOD 01/18/2025 5:22 AM [facility] Monocytes % 9 % LAB HEMATOLOGY METHOD 01/18/2025 5:22 AM [facility] Eosinophils % 2 % LAB HEMATOLOGY METHOD 01/18/2025 5:22 AM EST [facility] Basophils % 0 % LAB HEMATOLOGY METHOD 01/18/2025 5:22 AM [facility] Immature Granulocytes % 1 % LAB HEMATOLOGY METHOD 01/18/2025 5:22 AM [facility] Neutrophils Absolute 8.43(H) 1.60 - 6.10 10*3/uL LAB HEMATOLOGY METHOD 01/18/2025 5:22 AM [facility] Lymphocytes Absolute 0.99(L) 1.20 - 3.90 10*3/uL LAB HEMATOLOGY METHOD 01/18/2025 5:22 AM EST [facility] Monocytes Absolute 0.97(H) 0.30 - 0.90 10*3/uL LAB HEMATOLOGY METHOD 01/18/2025 5:22 AM [facility] Eosinophils Absolute 0.21 0.00 - 0.50 10*3/uL LAB HEMATOLOGY METHOD 01/18/2025 5:22 AM EST [facility] Basophils Absolute 0.03 0.00 - 0.10 10*3/uL LAB HEMATOLOGY METHOD 01/18/2025 5:22 AM EST [facility] Immature Granulocytes Absolute 0.08(H) 0.00 - 0.06 10*3/uL LAB HEMATOLOGY METHOD 01/18/2025 5:22 AM [facility] Blood Blood sample taken from central line / Unknown Venipuncture / Unknown 01/18/2025 4:56 AM EST 01/18/2025 5:12 AM EST Narrative [facility] - 01/18/2025 5:22 AM EST Therapeutic decision making should be based on absolute values, rather than percentages. us Cleve Deleon MD LAB BLOOD ORDERABLES Final Re sult Performing Organization Address [facility] Co de Phone Number [facility] [address] [place] [address] * (ABNORMAL) Magnesium, Plasma (01/18/2025 4:56 AM EST) Magnesium, Plasma 1.7(L) 1.9 - 2.4 mg/dL 01/18/2025 5:42 AM EST [facility] Blood Blood sample taken from central line / Unknown Venipuncture / Unknown 01/18/2025 4:56 AM EST 01/18/2025 5:12 AM EST us Cleve Deleon MD LAB BLOOD ORDERABLES Final Re sult Performing Organization Address [facility] de Phone Number [facility] [address] [place] [address] * (ABNORMAL) Basic Metabolic Panel, Plasma (01/18/2025 4:56 AM EST) Glucose, Plasma 151(H) 74 - 99 mg/dL 01/18/2025 5:42 AM EST [facility] BUN, Plasma 16 8 - 23 mg/dL 01/18/2025 5:42 AM EST [facility] Creatinine, Plasma 0.90 0.60 - 1.10 mg/dL 01/18/2025 5:42 AM EST [facility] BUN/Creatinine Ratio 18 01/18/2025 5:42 AM EST [facility] Sodium, Plasma 142 136 - 145 mmol/L 01/18/2025 5:42 AM EST [facility] Potassium, Plasma 4.0 3.6 - 4.9 mmol/L 01/18/2025 5:42 AM EST [facility] Chloride, Plasma 104 97 - 107 mmol/L 01/18/2025 5:42 AM EST [facility] CO2, Plasma 25 22 - 29 mmol/L 01/18/2025 5:42 AM EST [facility] Anion Gap 13 6 - 16 mmol/L 01/18/2025 5:42 AM EST [facility] Total Calcium, Plasma 8.4(L) 8.9 - 10.2 mg/dL 01/18/2025 5:42 AM EST [facility] eGFRcr 67.2 mL/min/1.7 3m*2 01/18/2025 5:42 AM EST [facility] Comment:Reported eGFRcr in m L/min/1.73m2 is based the CKD-EPI 2020 equation that does not use a race coefficient. Blood Blood sample taken from central line / Unknown Venipuncture / Unknown 01/18/2025 4:56 AM EST 01/18/2025 5:12 AM EST Cleve Deleon MD LAB BLOOD ORDERABLES Final Re sult Performing Organization Address City/[facility]/ZIP Co de Phone Number [facility] [address] [place] [address] * (ABNORMAL) Phosphorus, Plasma (01/18/2025 4:56 AM EST) [facility] Phosphorus, Plasma 1.9(L) 2.5 - 4.5 mg/dL 01/18/2025 5:42 AM EST [facility] Blood Blood sample taken from central line / Unknown Venipuncture / Unknown 01/18/2025 4:56 AM EST 01/18/2025 5:12 AM EST us Cleve Deleon MD LAB BLOOD ORDERABLES Final Re sult Performing Organization Address City/[facility]/ZIP Co de Phone Number [facility] [address] [place] [address] * Hepatitis C Antibody - ED W/Reflex to HCV Quant PCR (01/18/2025 4:56 AM EST) Hepatitis C Antibody Negative Negative 01/18/2025 5:53 AM EST [facility] Blood Blood sample taken from central line / Unknown Venipuncture / Unknown 01/18/2025 4:56 AM EST 01/18/2025 5:11 AM EST us Cleve Deleon MD LAB BLOOD ORDERABLES Final Re sult Performing Organization Address [facility]/ZIP Co de Phone Number [facility] [address] [place] [address] * (ABNORMAL) Hepatic Function Panel (01/18/2025 4:56 AM EST) Direct Bilirubin, Plasma <0.2 <=0.3 mg/dL 01/18/2025 5:42 AM EST [facility] Alkaline Phosphatase, Plasma 263(H) 46 - 142 U/L 01/18/2025 5:42 AM EST [facility] Total Bilirubin, Plasma 0.3 0.2 - 1.1 mg/dL 01/18/2025 5:42 AM EST [facility] Albumin, Plasma 3.0(L) 3.5 - 5.2 g/dL 01/18/2025 5:42 AM EST [facility] Total Protein 6.1(L) 6.3 - 7.9 g/dL 01/18/2025 5:42 AM EST [facility] ALT, Plasma 53(H) 10 - 35 U/L 01/18/2025 5:42 AM EST [facility] AST, Plasma 70(H) 10 - 35 U/L 01/18/2025 5:42 AM EST [facility] Blood Blood sample taken from central line / Unknown Venipuncture / Unknown 01/18/2025 4:56 AM EST 01/18/2025 5:12 AM EST us Cleve Deleon MD LAB BLOOD ORDERABLES Final Re sult Performing Organization Address City/[facility]/ZIP Co de Phone Number [facility] [address] [place] [address] * (ABNORMAL) POCT glucose meter (01/17/2025 9:24 PM EST) [facility] POCT Glucose 175(H) 74 - 99 mg/dL [...] Comment 01/17/2025 9:27 PM EST [facility]CARE [facility] Base Filler Operator ID Felisa Sarmiento 025 9:27 PM EST [facility]ARE LAB Device ID [id number] 01/17/2025 9:27 PM EST [facility] Specimen Type POC Capillary 01/17/2025 9:27 PM EST [facility] Blood Capillary blood specimen / Unknown 01/17/2025 9:24 PM EST 01/17/2025 9:27 PM EST us Cleve Deleon MD LAB POINT OF CARE TE ST DOCKED DEVICE UNSOLICITED RESULTS Final Result Performing Organization Address City/[facility]/ZIP Co de Phone Number [facility] [address] [place] [address] * Hepatitis B Surface Antigen (01/17/2025 7:50 PM EST) [facility] Hepatitis B Surf Antigen Negative Negative 01/17/2025 10:06 PM EST [facility] Blood Arterial blood specimen / Unknown (Central Line) Existing Catheter / Unknown 01/17/2025 7:50 PM EST 01/17/2025 7:54 PM EST us Cleve Deleon MD LAB BLOOD ORDERABLES Final Re sult Performing Organization Address City/[facility]/ZIP Co de Phone Number [facility] [address] [place] [address] * Hepatitis B Surface Antibody, Quantitative (01/17/2025 7:50 PM EST) [facility] Hepatitis B Surface Antibody, Quantitative <8.00 NonReactiv e: <8, Grayzone: 8 - <12, Reactive: >= 12 mIU/mL 01/17/2025 10:06 PM EST [facility] Comment: Nonreactive. Individual is considered not immune to HBV infection. Blood Arterial blood specimen / Unknown (Central Line) Existing Catheter / Unknown 01/17/2025 7:50 PM EST 01/17/2025 7:54 PM EST us Cleve Deleon MD LAB BLOOD ORDERABLES Final Re sult Performing Organization Address City/[facility] Co de Phone Number [facility] [address] [place] [address] * Hepatitis B Core Total Antibody IgG,IgM (01/17/2025 7:50 PM EST) Pathologist [facility] [place] Hepatitis B Core Total Antibody IgG,IgM Negative Negative 01/17/2025 10:06 PM EST [facility] Blood Arterial blood specimen / Unknown (Central Line) Existing Catheter / Unknown 01/17/2025 7:50 PM EST 01/17/2025 7:54 PM EST us Cleve Deleon MD LAB BLOOD ORDERABLES Final Re sult Performing Organization Address [facility] [place] [address] * Hepatitis B Core Antibody IgM (01/17/2025 7:50 PM EST) Pathologist [facility] [place] Hepatitis B Core Antibody IgM Negative Negative 01/17/2025 10:06 PM EST [facility] Blood Arterial blood specimen / Unknown (Central Line) Existing Catheter / Unknown 01/17/2025 7:50 PM EST 01/17/2025 7:54 PM EST us Cleve Deleon MD LAB BLOOD ORDERABLES Final Re sult Performing Organization Address [facility] Co de Phone Number [facility] [address] [place] [address] * (ABNORMAL) POCT glucose meter (01/17/2025 5:55 PM EST) Pathologist [facility] [place] POCT Glucose 186(H) 74 - 99 mg/dL [...] 01/17/2025 5:57 PM EST [facility] Base Filler Operator ID Aleyda Haley 01/17/2025 5:57 PM EST [facility] Device ID [id number] 01/17/2025 5:57 PM EST [facility] Specimen Type POC Capillary 01/17/2025 5:57 PM EST [facility] Blood Capillary blood specimen / Unknown 01/17/2025 5:55 PM EST 01/17/2025 5:57 PM EST Cleve Deleon MD LAB POINT OF CARE TE ST DOCKED DEVICE UNSOLICITED RESULTS Final Result Performing Organization Address City/State/[facility] Co de Phone Number [facility] [address] [place] [address] * (ABNORMAL) POCT glucose meter (01/17/2025 12:33 PM EST) [facility] POCT Glucose 172(H) 74 - 99 mg/dL [...] 01/17/2025 12:34 PM EST [facility] Base Filler Operator ID Aleyda Haley 01/17/2025 12:34 PM EST [facility] Device ID [id number] 01/17/2025 12:34 PM EST [facility] Specimen Type POC Capillary 01/17/2025 12:34 PM EST [facility] Blood Capillary blood specimen / Unknown 01/17/2025 12:33 PM EST 01/17/2025 12:34 PM EST us Cleve Deleon MD LAB POINT OF CARE TE ST DOCKED DEVICE UNSOLICITED RESULTS Final Result [facility] [address] [place] [address] * ECHO, ADULT TRANSTHORACIC COMPLETE (01/17/2025 11:55 [...] is no recent study available for direct ivrv-[id number] comparison. Left Ventricle The left ventricle is [...] is no recent study available for direct [id number]-te-[id number] comparison. us Cleve Deleon MD CV ECHO PROCEDURES Final Resu lt * (ABNORMAL) POCT glucose meter (01/17/2025 5:23 AM EST) [facility] POCT Glucose 166(H) 74 - 99 mg/dL 01/17/2025 5:25 AM EST [facility] Comment:Accuracy of a glucos e result [...] Comment 01/17/2025 5:25 AM EST [facility]ALTHCARE LAB Base Filler Operator ID Cydney Valiente 5:25 AM EST [facility] Device ID [id number] 01/17/2025 5:25 AM EST [facility] Specimen Type POC Capillary 01/17/2025 5:25 AM EST [facility] Blood Capillary blood specimen / Unknown 01/17/2025 5:23 AM EST 01/17/2025 5:25 AM EST us Cleve Deleon MD LAB POINT OF CARE TE ST DOCKED DEVICE UNSOLICITED RESULTS Final Result [facility] [address] [place] [id number] * (ABNORMAL) CBC and Differential (01/17/2025 2:31 AM EST) Pathologist [facility] [place] WBC Count 8.74 3.70 - 10.30 10*3/uL LAB HEMATOLOGY METHOD 01/17/2025 3:05 AM [facility] RBC Count 2.82(L) 3.90 - 5.20 10*6/uL LAB HEMATOLOGY METHOD 01/17/2025 3:05 AM [facility] HGB 8.9(L) 11.2 - 15.7 g/dL LAB HEMATOLOGY METHOD 01/17/2025 3:05 AM [facility] HCT 27.9(L) 34.0 - 45.0 % LAB HEMATOLOGY METHOD 01/17/2025 3:05 AM [facility] Platelet Count 351 155 - 369 10*3/uL LAB HEMATOLOGY METHOD 01/17/2025 3:05 AM [facility] MCV 99(H) 79 - 98 fL LAB HEMATOLOGY METHOD 01/17/2025 3:05 AM [facility] MCH 31.6 26.0 - 32.0 pg LAB HEMATOLOGY METHOD 01/17/2025 3:05 AM [facility] MCHC 31.9 30.7 - 35.5 g/dL LAB HEMATOLOGY METHOD 01/17/2025 3:05 AM [facility] RDW 14.2 11.5 - 14.5 % LAB HEMATOLOGY METHOD 01/17/2025 3:05 AM [facility] MPV 9.1 8.8 - 12.5 fL LAB HEMATOLOGY METHOD 01/17/2025 3:05 AM [facility] nRBC 0.0 <=0.0 per 100 WBCs LAB HEMATOLOGY METHOD 01/17/2025 3:05 AM [facility] Differential Type Automated LAB HEMATOLOGY METHOD 01/17/2025 3:05 AM [facility] Neutrophils % 88 % LAB HEMATOLOGY METHOD 01/17/2025 3:05 AM [facility] Lymphocytes % 8 % LAB HEMATOLOGY METHOD 01/17/2025 3:05 AM [facility] Monocytes % 2 % LAB HEMATOLOGY METHOD 01/17/2025 3:05 AM [facility] Eosinophils % 0 % LAB HEMATOLOGY METHOD 01/17/2025 3:05 AM [facility] Basophils % 0 % LAB HEMATOLOGY METHOD 01/17/2025 3:05 AM [facility] Immature Granulocytes % 2 % LAB HEMATOLOGY METHOD 01/17/2025 3:05 AM [facility] Neutrophils Absolute 7.74(H) 1.60 - 6.10 10*3/uL LAB HEMATOLOGY METHOD 01/17/2025 3:05 AM EST [facility] Lymphocytes Absolute 0.68(L) 1.20 - 3.90 10*3/uL LAB HEMATOLOGY METHOD 01/17/2025 3:05 AM EST [facility] Monocytes Absolute 0.17(L) 0.30 - 0.90 10*3/uL LAB HEMATOLOGY METHOD 01/17/2025 3:05 AM EST [facility] Eosinophils Absolute 0.00 0.00 - 0.50 10*3/uL LAB HEMATOLOGY METHOD 01/17/2025 3:05 AM EST [facility] Basophils Absolute 0.02 0.00 - 0.10 10*3/uL LAB HEMATOLOGY METHOD 01/17/2025 3:05 AM EST [facility] Immature Granulocytes Absolute 0.13(H) 0.00 - 0.06 10*3/uL LAB HEMATOLOGY METHOD 01/17/2025 3:05 AM EST [facility] Blood Venous blood specimen / Unknown Venipuncture / Unknown 01/17/2025 2:31 AM EST 01/17/2025 2:40 AM EST Narrative [facility] - 01/17/2025 3:05 AM EST Therapeutic decision making should be based on absolute values, rather than percentages. us Cleve Deleon MD LAB BLOOD ORDERABLES Final Re sult [facility] [address] [place] [address] * Magnesium, Plasma (01/17/2025 2:31 AM EST) Magnesium, Plasma 2.0 1.9 - 2.4 mg/dL 01/17/2025 3:08 AM EST [facility] Blood Venous blood specimen / Unknown Venipuncture / Unknown 01/17/2025 2:31 AM EST 01/17/2025 2:39 AM EST us Cleve Deleon MD LAB BLOOD ORDERABLES Final Re sult [facility] [address] [place] [address] * (ABNORMAL) Basic Metabolic Panel, Plasma (01/17/2025 2:31 AM EST) Glucose, Plasma 193(H) 74 - 99 mg/dL 01/17/2025 3:08 AM EST [facility] BUN, Plasma 17 8 - 23 mg/dL 01/17/2025 3:08 AM EST [facility] Creatinine, Plasma 0.87 0.60 - 1.10 mg/dL 01/17/2025 3:08 AM EST [facility] BUN/Creatinine Ratio 20 01/17/2025 3:08 AM EST [facility] Sodium, Plasma 140 136 - 145 mmol/L 01/17/2025 3:08 AM EST [facility] Potassium, Plasma 4.6 3.6 - 4.9 mmol/L 01/17/2025 3:08 AM EST [facility] Chloride, Plasma 104 97 - 107 mmol/L 01/17/2025 3:08 AM EST [facility] CO2, Plasma 24 22 - 29 mmol/L 01/17/2025 3:08 AM EST [facility] Anion Gap 12 6 - 16 mmol/L 01/17/2025 3:08 AM EST [facility] Total Calcium, Plasma 8.7(L) 8.9 - 10.2 mg/dL 01/17/2025 3:08 AM EST [facility] eGFRcr 70.0 mL/min/1.7 3m*2 01/17/2025 3:08 AM EST [facility] Comment:Reported eGFRcr in m L/min/1.73m2 is based the CKD-EPI 2020 equation that does not use a race coefficient. Blood Venous blood specimen / Unknown Venipuncture / Unknown 01/17/2025 2:31 AM EST 01/17/2025 2:39 AM EST us Cleve Deleon MD LAB BLOOD ORDERABLES Final Re sult [facility] [address] [place] [address] * Phosphorus, Plasma (01/17/2025 2:31 AM EST) Pathologist [facility] [place] Phosphorus, Plasma 4.3 2.5 - 4.5 mg/dL 01/17/2025 3:08 AM EST [facility] Blood Venous blood specimen / Unknown Venipuncture / Unknown 01/17/2025 2:31 AM EST 01/17/2025 2:39 AM EST us Cleve Deleon MD LAB BLOOD ORDERABLES Final Re sult Performing Organization Address City/[facility]/ZIP Co de Phone Number [facility] [address] [place] [address] * (ABNORMAL) POCT glucose meter (01/17/2025 12:39 AM EST) [facility] POCT Glucose 198(H) 74 - 99 mg/dL 01/17/2025 12:41 AM EST [facility] Comment:Accuracy of [...] 01/17/2025 12:41 AM EST [facility] Base Filler Operator ID Cydney Valiente 12:41 AM EST [facility] Device ID [id number] 01/17/2025 12:41 AM EST [facility] Specimen Type POC Capillary 01/17/2025 12:41 AM EST [facility] Blood Capillary blood specimen / Unknown 01/17/2025 12:39 AM EST 01/17/2025 12:41 AM EST us Cleve Deleon MD LAB POINT OF CARE TE ST DOCKED DEVICE UNSOLICITED RESULTS Final Result Performing Organization Address City/[facility]/ZIP Co de Phone Number [facility] [address] [place] [address] * CT Lumbar Spine w IV Contrast [...] on 01/16/2025 8:04 PM us Naina Dubois [employer] DEVELOPER IMG US PROCEDURES Final Result * (ABNORMAL) POCT glucose meter (01/16/2025 6:35 PM EST) POCT Glucose 173(H) 74 - 99 mg/dL 01/16/2025 6:36 PM EST [facility] Comment:Accuracy of [...] for testing. Comment 01/16/2025 6:36 PM EST [facility] Base Filler Operator ID Amandeep Ward 01/16/2025 6:36 PM EST [facility] Device ID [id number] 01/16/2025 6:36 PM EST [facility] Specimen Type POC Capillary 01/16/2025 6:36 PM EST [facility] Blood Capillary blood specimen / Unknown 01/16/2025 6:35 PM EST 01/16/2025 6:36 PM EST us Cleve Deleon MD LAB POINT OF CARE TE ST DOCKED DEVICE UNSOLICITED RESULTS Final Result [facility] [address] [place] [address] * (ABNORMAL) POCT glucose meter (01/16/2025 5:22 [...] Comment 01/16/2025 5:23 PM EST [facility] Base Filler Operator ID Felisa Hernandez 5:23 PM EST [facility] Device ID [id number] 01/16/2025 5:23 PM EST [facility] Specimen Type POC Capillary 01/16/2025 5:23 PM EST [facility] Blood Capillary blood specimen / Unknown 01/16/2025 5:22 PM EST 01/16/2025 5:23 PM EST Cleve Deleon MD LAB POINT OF CARE TE ST DOCKED DEVICE UNSOLICITED RESULTS Final Result Performing Organization Address City/[facility]/ZIP Co de Phone Number [facility] [address] [place] [address] * [place] Less than 1 Hour Intraoperative (01/16/2025 5:02 PM EST) Narrative IMAGING - 01/16/2025 5:04 PM EST Images were obtained for surgical purposes. See Fransisco Farley's surgical note in the patient's chart for the findings. Fransisco Gaston MD IMG FLUOROSCOPY PROC EDURES Final Result Performing Organization Address City/[facility]/ZIP Co de Phone Number IMAGING * (ABNORMAL) Routine Culture and Gram Stain (01/16/2025 4:14 PM EST) Culture Heavy Growth 01/19/2025 5:17 PM EST [facility] Culture 4+ Biotype 1 Methicillin-Resis tant Staphylococcus aureus(AA) 01/19/2025 5:17 PM EST [facility] Comment: For susceptibility results refer to: - [id number] Edited result: Previously reported as Staphylococcus aureus on 01/17/2025 at 1327 EST. Staphylococcus aureus has been updated to reportable. Culture 2+ Biotype 2 Methicillin-Resis tant Staphylococcus aureus(AA) 01/19/2025 5:17 PM EST [facility] Comment: For susceptibility results refer to: - [id number] Edited result: Previously reported as Staphylococcus aureus on 01/17/2025 at 1327 EST. Staphylococcus aureus has been updated to reportable. Foreign Body Lower back structure / Unknown 01/16/2025 4:14 PM EST 01/16/2025 5:10 PM EST Comment:Pre-op diagnosis: MRSA bacteremia [R78.81, B95.62] Fransisco Gaston MD LAB MICROBIOLOGY - G ENERAL ORDERABLES Final Result Performing Organization Address City/[facility]/ZIP Co de Phone Number [facility] [address] [place] [address] * Anaerobic Culture (01/16/2025 4:14 PM EST) Culture No anaerobes isolated 01/20/2025 2:57 PM EST [facility] Foreign Body Lower back structure / Unknown 01/16/2025 4:14 PM EST 01/16/2025 5:10 PM EST Comment:Pre-op diagnosis: MRSA bacteremia [R78.81, B95.62] us Fransisco Gaston MD LAB MICROBIOLOGY - G ENERAL ORDERABLES Final Result Performing Organization Address City/[facility]/ZIP Co de Phone Number [facility] [address] [place] [address] * Fungal Culture, Routine (01/16/2025 4:05 PM EST) Culture No Fungal Growth at 1 Week 01/24/2025 6:48 AM EST [facility] Abscess Topography unknown / Unknown 01/16/2025 4:05 PM EST 01/16/2025 5:10 PM EST us Cleve Deleon MD LAB MICROBIOLOGY - GENERAL OR DERABLES Final Result Performing Organization Address City/[facility]/ZIP Co de Phone Number [facility] [place] [address] * (ABNORMAL) Abscess Culture and Gram Stain (01/16/2025 4:05 PM EST) Culture Light Growth 01/19/2025 5:17 PM EST [facility] Culture 1+ Biotype 1 Methicillin-Resista nt Staphylococcus aureus(AA) 01/19/2025 5:17 PM EST [facility] Comment: The organism value for this result has been updated. These results have been appended to the previously preliminary verified report. Edited result: Previously reported as Staphylococcus aureus on 01/18/2025 at 1547 EST. Staphylococcus aureus has been updated to reportable. Culture 1+ Biotype 2 Methicillin-Resista nt Staphylococcus aureus(AA) 01/19/2025 5:17 PM EST [facility] Comment: The organism value for this result has been updated. These results have been appended to the previously preliminary verified report. Edited result: Previously reported as Staphylococcus aureus on 01/18/2025 at 1547 EST. Staphylococcus aureus has been updated to reportable. Gram Stain Result Rare Gram positive cocci in pairs and chains(A) 01/19/2025 5:17 PM EST [facility] Gram Stain Result Numerous Polymorphonuclear leukocytes(A) 01/19/2025 5:17 PM EST [facility] Abscess Lower back structure / [...] ENERAL ORDERABLES Final Result Performing Organization Address City/[facility]/ZIP Co de Phone Number [facility] [address] [place] [address] * Anaerobic Culture (01/16/2025 4:05 PM EST) [facility] Culture No anaerobes isolated 01/20/2025 2:57 PM EST [facility] Abscess Lower back structure / Unknown 01/16/2025 4:05 PM EST 01/16/2025 5:10 PM EST Comment:Pre-op diagnosis: MRSA bacteremia [R78.81, B95.62] Fransisco Gaston MD LAB MICROBIOLOGY - G ENERAL ORDERABLES Final Result Performing Organization Address City/[facility] Co de Phone Number [facility] [address] [place] [address] * (ABNORMAL) POCT glucose meter (01/16/2025 3:19 PM EST) POCT Glucose 123(H) 74 - 99 mg/dL 01/16/2025 3:20 PM EST [facility] Comment:Accuracy of a glucos [...] for testing. Comment 01/16/2025 3:20 PM EST [facility] Base Filler Operator ID Mindy Alarcon 01/16/2025 3:20 PM EST [facility] Device ID [id number] 01/16/2025 3:20 PM EST [facility] Specimen Type POC Capillary 01/16/2025 3:20 PM EST [facility] Blood Capillary blood specimen / Unknown 01/16/2025 3:19 PM EST 01/16/2025 3:20 PM EST Cleve Deleon MD LAB POINT OF CARE TE ST DOCKED DEVICE UNSOLICITED RESULTS Final Result Performing Organization Address City/State/[facility] Co de Phone Number [facility]ARE [facility] [address] [place] [address] * (ABNORMAL) POCT glucose meter (01/16/2025 11:52 AM EST) [facility] POCT Glucose 119(H) 74 - 99 mg/dL 01/16/2025 11:53 AM EST [facility] Comment:Accuracy of a glucos [...] Comment 01/16/2025 11:53 AM EST [facility] Base Filler Operator ID Hugo WardNarinderMarissa 01/16/2025 11:53 AM EST [facility] LAB Device ID [id number] 01/16/2025 11:53 AM EST [facility] Specimen Type POC Capillary 01/16/2025 11:53 AM EST [facility] Blood Capillary blood specimen / Unknown 01/16/2025 11:52 AM EST 01/16/2025 11:53 AM EST us Cleve Deleon MD LAB POINT OF CARE TE ST DOCKED DEVICE UNSOLICITED RESULTS Final Result Performing Organization Address City/[facility] Co de Phone Number [facility] [address] [place] [address] * (ABNORMAL) POCT glucose meter (01/16/2025 6:34 AM EST) POCT Glucose 142(H) 74 - 99 mg/dL 01/16/2025 6:35 AM EST [facility] Comment:Accuracy of a glucos [...] for testing. Comment 01/16/2025 6:35 AM EST [facility] Base Filler Operator ID Alice Garber 01/16/2025 6:35 AM EST [facility] Device ID [id number] 01/16/2025 6:35 AM EST [facility] Specimen Type POC Capillary 01/16/2025 6:35 AM EST [facility] Blood Capillary blood specimen / Unknown 01/16/2025 6:34 AM EST 01/16/2025 6:35 AM EST us Demar Jiménez MD LAB POINT OF CARE TE ST DOCKED DEVICE UNSOLICITED RESULTS Final Result Performing Organization Address City/[facility] Co de Phone Number [facility] [address] [place] [address] * (ABNORMAL) Urinalysis with reflex microscopic (Culture NOT Included) (01/16/2025 4:51 AM EST) Color, Urine Yellow LAB URINALYSIS - AUTOMATED METHOD 01/16/2025 5:13 AM EST [facility] Clarity, Urine Clear LAB URINALYSIS - AUTOMATED METHOD 01/16/2025 5:13 AM EST [facility] Spec [place], Urine 1.012 1.005 - 1.030 LAB URINALYSIS - AUTOMATED METHOD 01/16/2025 5:13 AM EST [facility] pH, Urine 6.0 5.0 - 8.0 LAB URINALYSIS - AUTOMATED METHOD 01/16/2025 5:13 AM EST [facility] Protein, Urine Negative Negative mg/dL LAB URINALYSIS - AUTOMATED METHOD 01/16/2025 5:13 AM EST [facility] Glucose, Urine >=1000(A) Negative mg/dL LAB URINALYSIS - AUTOMATED METHOD 01/16/2025 5:13 AM EST [facility] Ketones, Urine Negative Negative mg/dL LAB URINALYSIS - AUTOMATED METHOD 01/16/2025 5:13 AM EST [facility] Blood, Urine Negative Negative LAB URINALYSIS - AUTOMATED METHOD 01/16/2025 5:13 AM EST [facility] Bilirubin, Urine Negative Negative LAB URINALYSIS - AUTOMATED METHOD 01/16/2025 5:13 AM [facility] Urobilinogen, Urine 0.2 0.2 to 1.0 mg/dL LAB URINALYSIS - AUTOMATED METHOD 01/16/2025 5:13 AM [facility] Leukocytes, Urine Negative Negative LAB URINALYSIS - AUTOMATED METHOD 01/16/2025 5:13 AM [facility] Nitrite, Urine Negative Negative LAB URINALYSIS - AUTOMATED METHOD 01/16/2025 5:13 AM [facility] Urine Urine specimen obtained by clean catch procedure / Unknown Non-blood Collection / Unknown 01/16/2025 4:51 AM EST 01/16/2025 5:02 AM EST Fransisco Gaston MD LAB URINE ORDERABLES Final Result [facility] [address] [place] [address] * (ABNORMAL) POCT glucose meter (01/16/2025 1:34 AM EST) Pathologist [facility] [place] POCT Glucose 144(H) 74 - 99 mg/dL 01/16/2025 1:37 AM EST [facility] Comment:Accuracy of a glucos [...] Comment 01/16/2025 1:37 AM EST [facility]ARE LAB Base Filler Operator ID Alice Garber 01/16/2025 1:37 AM EST [facility] LAB Device ID [id number] 01/16/2025 1:37 AM EST [facility] Specimen Type POC Capillary 01/16/2025 1:37 AM EST [facility] Blood Capillary blood specimen / Unknown 01/16/2025 1:34 AM EST 01/16/2025 1:37 AM EST us Demar Jiménez MD LAB POINT OF CARE TE ST DOCKED DEVICE UNSOLICITED RESULTS Final Result Performing Organization Address City/[facility]/ZIP Co de Phone Number [facility] [address] [place] [address] * Blood Culture (Aerobic/Anaerobet Set) (01/16/2025 1:28 AM EST) Culture No growth at day 5 SADA 01/21/2025 4:02 AM EST [facility] Blood Structure of right hand / Unknown Venipuncture / Unknown 01/16/2025 1:28 AM EST 01/16/2025 3:52 AM EST us Fransisco Gaston MD LAB MICROBIOLOGY - G ENERAL ORDERABLES Final Result [facility] [address] [place] [address] * (ABNORMAL) Hemoglobin A1c (01/16/2025 12:36 AM EST) Hemoglobin A1c 7.8(H) <5.7 % 01/16/2025 10:21 AM EST [facility] Blood Venous blood specimen / Unknown Venipuncture / Unknown 01/16/2025 12:36 AM EST 01/16/2025 12:41 AM EST Narrative [facility] - 01/16/2025 10:21 AM EST HA1C Interpretive Data: Diagnosis of Diabetes: Diabetic > or = 6.5% Pre-diabetic 5.7 to 6.4% Non-diabetic < or = 5.6% Glycemic Targets for Type I and Type II Diabetics: Non- Adults <7.0% Adults <6.0% Children and Adolescents <7.5% Source: [place] [employer]. Standards of medical care in diabetes,2017. Diabetes Care.2017:40 (suppl 1):S1-S135. Naina Dubois WEB ANALYTICS DEVELOPER LAB BLOOD ORDERABLES Fi nal Result Performing Organization Address City/[facility]/ZIP Co de Phone Number [facility] [address] [place] [address] * Phosphorus (01/16/2025 12:36 AM EST) Phosphorus, Plasma 2.7 2.5 - 4.5 mg/dL 01/16/2025 2:12 AM EST [facility] Blood Venous blood specimen / Unknown Venipuncture / Unknown 01/16/2025 12:36 AM EST 01/16/2025 12:41 AM EST Naina Dubois WEB ANALYTICS DEVELOPER LAB BLOOD ORDERABLES Fi nal Result Performing Organization Address [facility] [place] [address] * (ABNORMAL) Magnesium (01/16/2025 12:36 AM EST) Magnesium, Plasma 1.7(L) 1.9 - 2.4 mg/dL 01/16/2025 2:12 AM EST [facility] Blood Venous blood specimen / Unknown Venipuncture / Unknown 01/16/2025 12:36 AM EST 01/16/2025 12:41 AM EST Naina Dubois WEB ANALYTICS DEVELOPER LAB BLOOD ORDERABLES Fi nal Result Performing Organization Address City/[facility] Co de Phone Number [facility] [address] [place] [address] * (ABNORMAL) Procalcitonin (01/16/2025 12:36 AM EST) Procalcitonin, Plasma 0.09(H) <0.09 ng/mL 01/16/2025 2:12 AM EST [facility] Blood Venous blood specimen / Unknown Venipuncture / Unknown 01/16/2025 12:36 AM EST 01/16/2025 12:41 AM EST Narrative [facility] - 01/16/2025 2:12 AM EST [...] predict 28 day mortality risk. Please consult [email or web address]-isu-whzbdpinhj.com for more information. Test performed at [facility]. us Naina Dubois APRN LAB BLOOD ORDERABLES Fi nal Result Performing Organization Address City/State/[facility] Co de Phone Number [facility] [address] [place] [address] * (ABNORMAL) C-reactive protein (01/16/2025 12:36 AM EST) CRP, Plasma 108.5(H) <=8.0 mg/L 01/16/2025 1:14 AM EST [facility] Blood Venous blood specimen / Unknown Venipuncture / Unknown 01/16/2025 12:36 AM EST 01/16/2025 12:41 AM EST Narrative [facility] - 01/16/2025 1:14 AM EST This CRP test is appropriate for assessment of infection, systemic inflammation and/or tissue injury. To assess cardiovascular disease risk order high sensitivity CRP (CRPH). Fransisco Gaston MD LAB BLOOD ORDERABLES Final Result [facility] [address] [place] [address] * (ABNORMAL) Sedimentation Rate, Automated (01/16/2025 12:36 AM EST) Sedimentation Rate 96(H) <30 mm/hr 2024 12:58 AM EST [facility] Blood Venous blood specimen / Unknown Venipuncture / Unknown 01/16/2025 12:36 AM EST 01/16/2025 12:41 AM EST Fransisco Gaston MD LAB BLOOD ORDERABLES Final Result Performing Organization Address City/[facility]/ZIP Co de Phone Number [facility] [address] [place] [address] * (ABNORMAL) CBC and Differential (01/16/2025 12:36 AM EST) WBC Count 9.75 3.70 - 10.30 10*3/uL LAB HEMATOLOGY METHOD 01/16/2025 12:50 AM EST [facility] RBC Count 2.94(L) 3.90 - 5.20 10*6/uL LAB HEMATOLOGY METHOD 01/16/2025 12:50 AM EST [facility] HGB 9.4(L) 11.2 - 15.7 g/dL LAB HEMATOLOGY METHOD 01/16/2025 12:50 AM EST [facility] HCT 28.1(L) 34.0 - 45.0 % LAB HEMATOLOGY METHOD 01/16/2025 12:50 AM EST [facility] Platelet Count 338 155 - 369 10*3/uL LAB HEMATOLOGY METHOD 01/16/2025 12:50 AM EST [facility] MCV 96 79 - 98 fL LAB HEMATOLOGY METHOD 01/16/2025 12:50 AM EST [facility] MCH 32.0 26.0 - 32.0 pg LAB HEMATOLOGY METHOD 01/16/2025 12:50 AM EST [facility] MCHC 33.5 30.7 - 35.5 g/dL LAB HEMATOLOGY METHOD 01/16/2025 12:50 AM EST [facility] RDW 14.2 11.5 - 14.5 % LAB HEMATOLOGY METHOD 01/16/2025 12:50 AM [facility] MPV 9.2 8.8 - 12.5 fL LAB HEMATOLOGY METHOD 01/16/2025 12:50 AM [facility] nRBC 0.0 <=0.0 per 100 WBCs LAB HEMATOLOGY METHOD 01/16/2025 12:50 AM [facility] Differential Type Automated LAB HEMATOLOGY METHOD 01/16/2025 12:50 AM [facility] Neutrophils % 75 % LAB HEMATOLOGY METHOD 01/16/2025 12:50 AM [facility] Lymphocytes % 11 % LAB HEMATOLOGY METHOD 01/16/2025 12:50 AM [facility] Monocytes % 10 % LAB HEMATOLOGY METHOD 01/16/2025 12:50 AM [facility] Eosinophils % 2 % LAB HEMATOLOGY METHOD 01/16/2025 12:50 AM [facility] Basophils % 0 % LAB HEMATOLOGY METHOD 01/16/2025 12:50 AM [facility] Immature Granulocytes % 2 % LAB HEMATOLOGY METHOD 01/16/2025 12:50 AM [facility] Neutrophils Absolute 7.38(H) 1.60 - 6.10 10*3/uL LAB HEMATOLOGY METHOD 01/16/2025 12:50 AM [facility] Lymphocytes Absolute 1.03(L) 1.20 - 3.90 10*3/uL LAB HEMATOLOGY METHOD 01/16/2025 12:50 AM [facility] Monocytes Absolute 0.94(H) 0.30 - 0.90 10*3/uL LAB HEMATOLOGY METHOD 01/16/2025 12:50 AM [facility] Eosinophils Absolute 0.22 0.00 - 0.50 10*3/uL LAB HEMATOLOGY METHOD 01/16/2025 12:50 AM [facility] Basophils Absolute 0.03 0.00 - 0.10 10*3/uL LAB HEMATOLOGY METHOD 01/16/2025 12:50 AM [facility] Immature Granulocytes Absolute 0.15(H) 0.00 - 0.06 10*3/uL LAB HEMATOLOGY METHOD 01/16/2025 12:50 AM [facility] Blood Venous blood specimen / Unknown Venipuncture / Unknown 01/16/2025 12:36 AM EST 01/16/2025 12:41 AM EST Narrative [facility] - 01/16/2025 12:50 AM EST Therapeutic decision making should be based on absolute values, rather than percentages. Fransisco Gaston MD LAB BLOOD ORDERABLES Final Result [facility] [address] [place] [address] * (ABNORMAL) Comprehensive Metabolic Panel, Plasma (01/16/2025 12:36 AM EST) Glucose, Plasma 141(H) 74 - 99 mg/dL 01/16/2025 1:14 AM EST [facility] BUN, Plasma 17 8 - 23 mg/dL 01/16/2025 1:14 AM EST [facility] Creatinine, Plasma 0.97 0.60 - 1.10 mg/dL 01/16/2025 1:14 AM EST [facility] BUN/Creatinine Ratio 18 01/16/2025 1:14 AM EST [facility] Sodium, Plasma 137 136 - 145 mmol/L 01/16/2025 1:14 AM EST [facility] Potassium, Plasma 4.1 3.6 - 4.9 mmol/L 01/16/2025 1:14 AM EST [facility] Chloride, Plasma 103 97 - 107 mmol/L 01/16/2025 1:14 AM EST [facility] CO2, Plasma 22 22 - 29 mmol/L 01/16/2025 1:14 AM EST [facility] Anion Gap 12 6 - 16 mmol/L 01/16/2025 1:14 AM EST [facility] Total Calcium, Plasma 9.0 8.9 - 10.2 mg/dL 01/16/2025 1:14 AM EST [facility] Total Protein 6.1(L) 6.3 - 7.9 g/dL 01/16/2025 1:14 AM EST [facility] Albumin, Plasma 2.9(L) 3.5 - 5.2 g/dL 01/16/2025 1:14 AM EST [facility] AST, Plasma 77(H) 10 - 35 U/L 01/16/2025 1:14 AM EST [facility] ALT, Plasma 54(H) 10 - 35 U/L 01/16/2025 1:14 AM EST [facility] Alkaline Phosphatase, Plasma 271(H) 46 - 142 U/L 01/16/2025 1:14 AM EST [facility] Total Bilirubin, Plasma 0.4 0.2 - 1.1 mg/dL 01/16/2025 1:14 AM EST [facility] eGFRcr 61.4 mL/min/1.7 3m*2 01/16/2025 1:14 AM EST [facility] Comment:Reported eGFRcr in m L/min/1.73m2 is based the CKD-EPI 2020 equation that does not use a race coefficient. Blood Venous blood specimen / Unknown Venipuncture / Unknown 01/16/2025 12:36 AM EST 01/16/2025 12:41 AM EST Fransisco Gaston MD LAB BLOOD ORDERABLES Final Result [facility] [address] [place] [address] * (ABNORMAL) APTT (01/16/2025 12:36 AM EST) aPTT 36(H) 25 - 35 sec LAB COAGULATION METHOD 01/16/2025 1:15 AM EST [facility] Blood Venous blood specimen / Unknown Venipuncture / Unknown 01/16/2025 12:36 AM EST 01/16/2025 12:41 AM EST Fransisco Gaston MD LAB BLOOD ORDERABLES Final Result [facility] [address] [place] [address] * (ABNORMAL) Prothrombin Time/INR (01/16/2025 12:36 AM EST) Prothrombin Time 15.3(H) 12.0 - 14.3 sec LAB COAGULATION METHOD 01/16/2025 1:15 AM EST [facility] INR 1.2(H) 0.9 - 1.1 LAB COAGULATION METHOD 01/16/2025 1:15 AM EST [facility] Blood Venous blood specimen / Unknown Venipuncture / Unknown 01/16/2025 12:36 AM EST 01/16/2025 12:41 AM EST Narrative [facility] - 01/16/2025 1:15 AM EST OPTIMAL INR RANGES FOR PATIENT ON ORAL ANTICOAGULANT THERAPY Prevention of venous thromboembolism INR 2.0 to 3.0 In patients with heart disease: Atrial fibrillation INR 2.0 to 3.0 Valvular heart disease INR 2.0 to 3.0 Tissue heart valves INR 2.0 to 3.0 Mechanical prosthetic valves INR 2.5 to 3.5 Prevention of recurrent MT INR 2.5 to 3.5 Fransisco Gaston MD LAB BLOOD ORDERABLES Final Result [facility] [address] [place] [address] * Type and Screen (01/16/2025 12:36 AM EST) ABO/Rh A Positive 01/16/2025 12:39 AM EST BLOOD BANK Antibody Screen Negative 01/16/2025 12:39 AM EST BLOOD BANK Specimen Expiration 01/19/2025 23:59 01/16/2025 12:39 AM EST BLOOD BANK Blood Venous blood specimen / Unknown Venipuncture / Unknown 01/16/2025 12:36 AM EST 01/16/2025 12:39 AM EST Fransisco Gaston MD LAB BLOOD BANK TEST ORDERABLES Final Result BLOOD BANK [address] documented in this encounter Visit Diagnoses Diagnosis Postoperative sepsis (CMS/HCC)- Primary MRSA bacteremia Postoperative sepsis (CMS/HCC) [T81.44XA] Cellulitis of back except buttock Hypertension Unspecified essential hypertension Diabetes mellitus Type II or unspecified type diabetes mellitus without mention of complication, not stated as uncontrolled Mixed hyperlipidemia Cellulitis of back except buttock Major depressive disorder with single episode, in remission ([facility]/HCC) MRSA bacteremia MADELEINE (iron deficiency anemia) Unspecified iron deficiency anemia Gastroesophageal reflux disease without esophagitis Esophageal reflux Transaminitis Nonspecific elevation of levels of transaminase or lactic acid dehydrogenase (LDH) MRSA bacteremia Infection of spinal cord stimulator, initial encounter documented in this encounter Admitting Diagnoses Diagnosis Sepsis ([facility]) documented in this encounter Administered Medications Inactive Administered Medications - up to 3 most recent administrations Medication Order MAR Action Action Date Dose Rate Site amitriptyline (Elavil) tablet 25 mg 25 mg, [...] Given 01/22/2025 8:42 AM EST 25 mg clonazePAM (KlonoPIN) tablet 1 mg 1 mg, [...] sugar, per Hypoglycemia Prevention and Treatment protocol insulin glargine-yfgn 100 UNIT/ML injection 5 Units [...] on Wed01/17/25 at 2100, Until Discontinued, Routine lactulose (Chronulac) 10 GM/15ML solution 20 g [...] Given 01/20/2025 8:18 PM EST 3 mg miconazole nitrate ointment Topical, 2 times daily, First dose on Wed01/16/25 at 1315, Until Discontinued, Routine Given 01/23/2025 8:36 AM EST Given 01/22/2025 9:44 PM EST Given 01/22/2025 8:44 AM EST NIFEdipine XL (Procardia XL) 24 hr tablet 30 mg 30 mg, Oral, Daily, First dose on Wed01/16/25 at 1030, Until Discontinued, Routine Given 01/23/2025 8:21 AM EST 30 mg Given 01/22/2025 8:42 AM EST 30 mg Given 01/21/2025 8:53 AM EST 30 mg nystatin (Mycostatin) [id number] UNIT/GM powder 1 Application Topical, 2 times [...] Given 01/21/2025 9:17 PM EST 5 mg pantoprazole (Protonix) EC tablet 40 mg 40 mg, Oral, 2 times daily, First dose on Wed01/16/25 at 0900, Until Discontinued, Routine Given 01/23/2025 8:20 AM EST 40 mg Given 01/22/2025 9:43 PM EST 40 mg Given 01/22/2025 8:41 AM EST 40 mg polyethylene glycol (Miralax) packet 17 g 17 g, Oral, Daily, First dose on Wed01/21/25 at 1215, Until Discontinued, Routine Given 01/23/2025 8:21 AM EST 17 g Given 01/22/2025 8:41 AM EST 17 g Given 01/21/2025 12:32 PM EST 17 g rosuvastatin (Crestor) tablet 10 mg 10 mg, [...] Routine Rate/Dose Verify 01/22/2025 7:00 PM EST 1 0 mL/hr Rate/Dose Verify 01/22/2025 5:44 AM EST [...] 3:06 AM EST 1,250 mg 220 mL/hr Vortioxetine HBr (Trintellix) tablet 20 mg [...] Until Discontinued, Routine 2116 (Given - Provider: Chrsitina Fritz RN) 2142 (Given - Provider: Christina Fritz RN) carvedilol (Coreg) tablet 25 mg 25 mg, Oral, 2 times daily, First dose on Wed01/16/25 at 0915, Until Discontinued, Routine 0853 (Given - Provider: David Wheeler RN)2116 (Given - Provider: Christina Fritz RN) 0842 (Given - Provider: Felisa Whitlock, RAI)214 (Given - Provider: Christina Fritz RN) 0821 (Given - Provider: Ariadne Adame, RN) enoxaparin (Lovenox) syringe 40 mg 40 mg, Subcutaneous, Daily, First dose on Wed01/17/25 at 1245, Until Discontinued, Routine 0853 (Given - Provider: David Wheeler RN) 0843 (Given - Provider: Felisa Whitlock, RN) 0822 (Given - Provider: Ariadne Adame, RAI) [...] - Provider: Ariadne Adame RN) nystatin (Mycostatin) 001736 UNIT/GM powder 1 Application Topical, 2 times daily, First dose on Wed01/16/25 at 0900, Until Discontinued, Routine 0853 (Given - Provider: David Wheeler RN)2116 (Given - Provider: Christina Fritz RN) 843 (Given - Provider: Felisa Whitlock RN)2143 (Given - Provider: Christina Fritz RN) 0825 (Given - Provider: Ariadne Adame RN) pantoprazole (Protonix) EC tablet 40 mg 40 mg, Oral, 2 times daily, First dose on Wed01/16/25 at 0900, Until Discontinued, Routine 0853 (Given - Provider: David Wheeler RN)2116 (Given - Provider: Christina Fritz RN) 0841 (Given - Provider: Felisa Whitlock, RAI)2142 (Given - Provider: Christina Fritz RN) 0820 (Given - Provider: Ariadne Adame RN) polyethylene glycol (Miralax) packet 17 g 17 g, Oral, Daily, First dose on Wed01/21/25 at 1215, Until Discontinued, Routine 1232 (Given - Provider: David Wheeler RN) 0841 (Given - Provider: Felisa Whitlock RN) 0821 (Given - Provider: Ariadne Adame RN) rosuvastatin (Crestor) tablet 10 mg 10 mg, Oral, Daily, First dose on Wed01/16/25 at 0900, Until Discontinued 0933 (Given - Provider: David Wheeler RN) 0841 (Given - Provider: Felisa Whitlock RN) 0820 (Given - Provider: Ariadne Adame, RAI) senna-docusate (Rebecca-Colace) 8.6-50 MG per tablet 1 tablet 1 tablet, Oral, 2 times daily, First dose on Wed01/21/25 at 1215, Until Discontinued, Routine 1232 (Given - Provider: David Wheeler RN)2117 (Given - Provider: Christina Fritz RN) 0842 (Given - Provider: Felisa Whitlock RN)2143 (Given - Provider: Christina Fritz RN) 0820 (Given - Provider: Ariadne Adame, RN) sodium chloride 0.9 % flush 10 [...] Christina Fritz RN)1408 (Given - Provider: Felisa Whitlock RN) 0200 (Canceled Entry - Provider: Felisa Whitlock [...] Fritz RN) 0218 (New Bag - Provider: Chritsina Fritz RN) Vortioxetine HBr (Trintellix) tablet 20 mg 20 mg, Oral, Daily, First dose on Wed01/16/25 at 0900, Until Discontinued 0852 (Given - Provider: David Wheeler RN) 0840 (Given - Provider: Felisa Whitlock, RAI) 0821 (Given - Provider: Ariadne Adame, RAI) Continuous Medication Order 01/21/2025 01/22/2025 01/23/2025 sodium [...] PRN, Starting on Wed01/16/25 at 0107, Until 01/23/25 at 1513, Routine, constipation clonazePAM (KlonoPIN) tablet 1 mg 1 mg, Oral, Daily PRN, Starting on 01/16/25 at 1344, Until 01/23/25 at 1513, anxiety, seizures 0841 (Given - Provider: Felisa Whitlock RN) dextrose 10 % (D10W) bolus 125 mL(Linked Group 2) 125 mL, Intravenous, Every 15 min PRN, Starting on 01/16/25 at 0106, Until 01/23/25 at 1513, Administer over 15 Minutes, Routine, low blood sugar BG 51-89 mg/dL dextrose 10 % (D10W) bolus 250 mL(Linked Group 2) 250 mL, Intravenous, Every 15 min PRN, Starting on 01/16/25 at 0106, Until 01/23/25 at 1513, Administer over 15 Minutes, Routine, [...] DVPRS NIPS score of 5 or greater 2117 (Given - Provider: Christina Fritz RN) 0841 (Given - Provider: Felisa Whitlock RN)2143 (Given - Provider: Christina Fritz RN) simethicone [...] on Wed01/16/25 at 0102, Until Wed01/23/25 at 151, Routine, line care sodium chloride 0.9 % flush 20 mL 20 mL, Intravenous, Every 1 hour PRN, Starting on Wed01/16/25 at 0034, Until Wed01/23/25 at 151, Routine, After blood draws and if any [...] documented as of this encounter Care Teams Solar Lab Technician Relationship Specialty Start Date End Date Chase Gunn MD [address] [place] [address] PCP - General 06/21/20 documented as of this encounter
--- OUTSIDE RECORDS SUMMARY | 2025-01-16 15:24 | XMS_ITS | Encounter Summary ---
Author Organization Healthcare Address [address] [place] [address] Care Team Providers Care Tool Machine Setup Operator Name Role Phone Chase Gunn MD Primary Care Provider + [phone] Reason for Visit * Auth/Cert (Routine) Specialty Diagnoses / Procedures Referred By Rick roman Referred To Contact Diagnoses Sepsis (CMS/HCC) infected spinal cord stimulator, MRSA Demar Jiménez MD [address] [place] [address] Phone: tel: fax: P[facility] A Inpatient [address] [place] [address] Referral ID Status Reason Start Date Expiration Date Visits Re quested Visits Authorized [id number] 1 1 Encounter Details Date Type Department Care Team (Late st Contact Info) Description 01/16/2025 3:24 PM EST Anesthesia Event [facility] A OPERATING ROOM [address] [place] [address] Diane Wong MD [address] [place] [address] Cony Braun APRN, EDVIN [address] [place] [address] Anesthesia Record Procedure Summary Procedure [...] Date: 01/16/25; Placement Time: 0503; Inserted by: Cydney Valiente; Type: Non-latex; Size: 16 Fr.; Balloon [...] any time in the past 12 m [facility], were you homeless or living in a group home (including now)? No 01/16/2025 [facility] Utilities Answer Date Recorded In the past 12 months has th e [employer], gas, oil, or water [employer] threatened to shut off services in your [...] and Staff Patient location during procedure: OR CLERK SECRETARY: Nani Nixon CRNA, DNP Performed: CLERK SECRETARY Patient Condition Indications for airway management: anesthesia [...] REMOVAL/REVISION, ALL OTHER INDICATED PROCEDURES (Back) Location: [facility] [place] Surgeons: Fransisco Farley MD GISELLE Wray [...] Plan ASA 3 Plan was reviewed with: CLERK SECRETARY Anesthesia technique(s) discussed with the patient/family: general [...] Consult [place] [facility] [address], [address] [place] [address] Fransisco Farley MD [address] [facility] [address] [place] [address] documented as of this encounter Procedures Procedure Name Priority Date/Time Associated Diagnosis Comments ANESTHESIA PERIPHERAL IV PLACEMENT Routine 01/16/2025 3:45 PM EST PB ANESTHESIA PLACEHOLDER Routine 01/16/2025 3:32 PM EST [place] AN ELECTIVE ENDOTRACHEAL AIRWAY Routine 01/16/2025 3:32 [...] MD ANESTHESIA ORDERABLES Final R esult * TN AN ELECTIVE ENDOTRACHEAL AIRWAY, PB ANESTHESIA PLACEHOLDER (01/16/2025 3:32 PM EST) Narrative Nani Nixon CRNA, DNP - 01/16/2025 3:32 PM EST Nani Nixon CRNA, DNP 01/16/2025 3:54 PM Airway Date/Time: 01/16/2025 3:32 PM Reason: elective Airway not difficult General Information and Staff Patient location during procedure: OR CLERK SECRETARY: Nani Nixon CRNA, DNP Performed: VIN Patient [...] documented as of this encounter Care Teams Tool Machine Setup Operator Relationship Specialty Start Date End Date Chase Gunn MD [address] [place] [address] PCP - General 06/21/20 documented as of this encounter
--- OUTSIDE RECORDS SUMMARY | 2025-01-29 09:25 | XMS_ITS | Continuity of Care Document ---
Author Organization [facility] Address [address] [place] [address] [place] [address] Care Team Providers Care Nutrition And Dietetics Instructor Name Role Phone DARIELA LOCKETT Primary Care [...] urinalysis panel, auto 2024 025 [email or web address] 14 [facility] [place] [facility], [address] [place] [address] , [address], [place], [address], 15:56:20 Referral None recorded. Procedures None recorded. Surgeries cystourethr oscopy, with injections for chemodenerv ation of the bladder (SURG) 2024 025 [id number] [facility], [address] [facility] [address], [place], [address], 12:03:09 Imaging None recorded. Medication Orders mirabegron ER 50 mg tablet,exte nded release 24 hr 2024 025 [facility], [address] [place], [address], 15:58:38 Patient TargetsNo targets recorded. Patient Instructions Encounter Date Encounter Id Patient Instructions Last Modified By Organization Details Last Modified Time 12/07/2024 [id number] - Continue takin g Gemtesa as prescribed. - Prepare for scheduled Botox injections for bladder management. - Monitor urinary symptoms and report any changes. [email or web address] Not available 12/07/2024 15:58:14 Reason for Referral None Reported. Results Created Date Observation Date Name Description Value Unit Range Abnormal Flag Note LastModifiedBy Organization Detail LastModifiedTime 12/08/1912/07/2024 urina lysis panel , auto Unknown Analyte Clean Catch Not Available [address], [place], [address], 12/07/2024 15:54:20 12/08/19 25 12/07/2024 urina lysis panel , auto Unknown Analyte Yellow Not Available [facility] With [address], [place], [address], 12/07/2024 15:54:20 12/08/19 25 12/07/2024 urina lysis panel , auto Unknown Analyte Clear Not Available [facility] With [address], [place], [address], 12/07/2024 15:54:20 12/08/1912/07/2024 urina lysis panel , auto Unknown Analyte 1.015 Not Available [facility] With [address], [place], [address], 12/07/2024 15:54:20 12/08/19 25 12/07/2024 urina lysis panel , auto Unknown Analyte 1.003 - 1.030 Not Available [address], [place], [address], 12/07/2024 15:54:20 12/08/19 25 12/07/2024 urina lysis panel , auto Unknown Analyte 6.0 Not Available [facility] With [address] Garcia [address], [place], [address], 12/07/2024 15:54:20 12/08/19 25 12/07/2024 urina lysis panel , auto Unknown Analyte 5.0 - 8.0 Not Available [facility] With [address], [place], [address], 12/07/2024 15:54:20 12/08/19 25 12/07/2024 urina lysis panel , auto Unknown Analyte Negati ve Not Available [facility] With [address], [place], [address], 12/07/2024 15:54:20 12/08/19 25 12/07/2024 urina lysis panel , auto Unknown Analyte Negati ve Not Available [facility] With [address], [place], [address], 12/07/2024 15:54:20 12/08/19 25 12/07/2024 urina lysis panel , auto Unknown Analyte Negati ve Not Available [facility] With [address], [place], [address], 12/07/2024 15:54:20 12/08/19 25 12/07/2024 urina lysis panel , auto Unknown Analyte Negati ve Not Available [facility] With [address], [place], [address], 12/07/2024 15:54:20 12/08/19 25 12/07/2024 urina lysis panel , auto Unknown Analyte Negati ve Not Available [facility] With [address], [place], [address], 12/07/2024 15:54:20 12/08/19 25 12/07/2024 urina lysis panel , auto Unknown Analyte Negati ve Not Available [facility] With [address], [place], [address], 12/07/2024 15:54:20 12/08/19 25 12/07/2024 urina lysis panel , auto Unknown Analyte >1000 mg/dL Not Available [facility] With [address], [place], [address], 12/07/2024 15:54:20 12/08/19 25 12/07/2024 urina lysis panel , auto Unknown Analyte Normal Not Available [facility] With [address], [place], [address], 12/07/2024 15:54:20 12/08/19 25 12/07/2024 urina lysis panel , auto Unknown Analyte Negati ve Not Available [facility] With [place] [address], [place], [address], 12/07/2024 15:54:20 12/08/19 25 12/07/2024 urina lysis panel , auto Unknown Analyte Negati ve Not Available [facility] With [address], [place], [address], 12/07/2024 15:54:20 12/08/19 25 12/07/2024 urina lysis panel , auto Unknown Analyte Normal Not Available [facility] With [address], [place], [address], 12/07/2024 15:54:20 12/08/19 25 12/07/2024 urina lysis panel , auto Unknown Analyte Normal Not Available [facility] With [address], [place], [address], 12/07/2024 15:54:20 12/08/19 25 12/07/2024 urina lysis panel , auto Unknown Analyte Negati ve Not Available [facility] With [address], [place], [address], 12/07/2024 15:54:20 12/08/19 25 12/07/2024 urina lysis panel , auto Unknown Analyte Negati ve Not Available [facility] With [address], [place], [address], 12/07/2024 15:54:20 12/08/19 25 12/07/2024 urina lysis panel , auto Unknown Analyte Negati ve Not Available [facility] With [address], [place], [address], 12/07/2024 15:54:20 12/08/1912/07/2024 urina lysis panel , auto Unknown Analyte Negati ve Not Available [facility] With [address], [place], [address], 12/07/2024 15:54:20 Result Notes None recorded. Problems Name Problem SNOMED Code Status Onset Date Resolution Date Notes Provider Name and Address Organization Details Recorded Time Overactive urinary bladder 071744600 Active 024 JOSE AMIN MD [address] [place] [address], [address] [place] [address] 15:59:10 Problem Notes None recorded. Procedures Surgical History Date Name Laterality Status Provider Name and Address Organization Details Recorded Time 07/11/19 arthroplasty of knee completed Murelene Dionicio [facility] 12/07/2024 15:54:02 cholecystectomy completed Anthony Richards [facility] 11/22/2023 14:47:43 Carpal tunnel surgery completed [facility] 11/22/2023 14:47:59 hernia repair completed [facility] 11/22/2023 14:48:23 biopsy completed [facility] 11/22/2023 14:48:59 Tubal Ligation completed [facility] 11/22/2023 14:49:07 procedure on finger completed [facility] 11/22/2023 14:49:32 Cerebral Aneurysm completed [facility] 11/22/2023 14:50:43 Imaging Results None recorded. Procedure Notes None recorded. Medical Equipment None Reported. Allergies Allergen ID Allergen Name Allergen Category Reaction Reaction Severity Criticality Documentation Date Start Date Code Code System Note Provider Name and Address Organization Details Recorded Time 754344 Ozempic medicatio n Not available Not available Not available 11/22/2023 RxNorm [facility] 14:43:39 Medications Name Sig [...] Updated DateTime 12/07/2024 165.1 cm 32.4 kg/m2 14618.51 g Gerson Dionicio [facility] 12/07/2024 15:53:27 Social History Question Answer Notes LastModified by Organizat ion Details LastModified Time Tobacco Smoking Status Never Smoker Anthony brock, [facility] 11/22/2023 14:47:17 What Was The Date Of Your Most Recent Tobacco Screening? 06/15/2024 [email or web address] Information not available 06/15/2024 What Is Your Relationship Status? [email or web address] Information not available 11/22/2023 Has Tobacco Cessation Counseling Been Provided? No [email or web address] Information not available 11/22/2023 Sex: Unknown Functional Status Question Answer Note LastModified by Organizat ion Details LastModified Time Do you use any illicit or recreational drugs? No [email or web address] Information not available 11/22/2023 Do you or have you ever used any other forms of tobacco or nicotine? No [email or web address] Information not available 11/22/2023 What is your level of alcohol consumption? None [email or web address] Information not available 11/22/2023 Are you currently employed? No retired [email or web address] Information not available 11/22/2023 Mental Status None recorded. Family History Relationship Description Onset Age of this Age Resolved Age Notes LastModified by Organization Details LastModified Time Father No current problems or disability [email or web address] Not available 14:47:07 Mother No current problems or disability [email or web address] Not available 14:47:07 Medical History Condition Response [...] [facility] 12/07/2024 15:51:40 Pneumococcal conjugate PCV20, polysaccharide TSR030 conjugate, adjuvant, PF completed Not Available [facility] 12/07/2024 15:51:40 Past Encounters Encounter ID Performer Location Encounter Start Date Encounter Closed Date Diagnosis/Indication Diagnosis SNOMED-CT Code Diagnosis ICD10 Code Diagnosis IMO Codes Diagnosis Note [id number] JOSE AMIN MD [facility] [address] [facility] [place] [address] 12/07/2024 15:50:47 12/07/2024 16:37:13 Overactive urinary bladder 828006765 N32.81 893476 - Continue current medication regimen with Gemtesa, although effectiven ess is limited. - Schedule for Botox injections to manage symptoms, as discussed. Urge incon tinence of urine 05381165 N39.41 212246 - Considerat ion of Botox injections for symptom management . Nocturia 037487043 R35.1 38734 - Monitor nocturia symptoms and adjust treatment plan as necessary. Health Concerns Section Related Observation LastModified by Organization Detai ls LastModified Time None Recorded Concern Status LastModified by Organization Details LastModified Time None Recorded Payers Encounter Date Sequence Insurance Name Policy Number Policy Batista Covered Member ID Batista Member ID Guarantor Name 12/07/2024 1 MED[place]ARE[place] ([place]ICARE) Rosa Huston [facility] [id number] Rosa Huston [facility] 12/07/2024 2 [facility] [id number] [facility] [id number] [facility] Notes Date Note Type Note Provider Name [...] note prior to signature. JOSE AMIN MD [address] [place] [address], [address], [facility] 12/18/2024 09:26:56 OBGyn Episode No OBEpisode recorded.
--- OUTSIDE RECORDS SUMMARY | 2025-01-29 09:25 | XMS_ITS | Clinical Summary ---
[facility] [address] [place] [address] Care Team Providers Care Technology Program Manager Name Role Phone Chase Gunn MD Primary Care Provider [phone] Allergies Active Allergy Reactions Criticality Noted Date [...] Completed 01/18/2025 Medical Devices Implanted Type Area In Room Dining Server Device Identifier Shelf Expiration Date Model / Serial / Lot Interstim Implant Coil Target 3d 3mm 6cm - [id number] Implanted:Qty: 1 on 05/03/2020 by Jerome Hays MD at [facility] Implant [employer] [id number] / / Coil Target Detach 360 Nikia 2mm 3cm - [id number] Implanted:Qty: 1 on 05/03/2020 by Jerome Hays MD at [facility] Implant [employer] [id number] / / Explanted Type Area In Room Dining Server Device Identifier Shelf Expiration Date Model / Serial / Lot Coil Axium [place] 3d Sys [id number] - [id number] Explanted:Qty: 1 on 05/03/2020 at [facility] Implant [employer] [id number] / / Description:Did not detach t he coil Coil Axium [place] 3d Sys 4mm 6cm - [id number] Explanted:Qty: 1 on 05/03/2020 at [facility] Implant [employer]3 [employer] [id number] / / Description:Coil removed Coil Axium Prime 3d Xsft 3mm 4cm - [id number] Explanted:Qty: 1 on 05/03/2020 at [facility] Implant [employer] [id number] / / Description:Coil removedf Coil Axium [place] 3d Sys 3x4mm - [id number] Explanted:Qty: 1 on 05/03/2020 at [facility] Implant [employer]3 [employer] [id number] / / Description:Coil removed Procedures Procedure Name [...] Documents on File Type Date Recorded Patient Appraiser Expl anation LIVING WILL - SCAN 05/03/2020 [...] Of Support Discussed With: Patient Care Teams Technology Program Manager Relationship Specialty Start Date End Date Chase Gunn MD [address] [facility] [address] [facility] [address] [place] [address] PCP - General Family Medicine 04/10/20
--- OUTSIDE RECORDS SUMMARY | 2025-01-29 09:26 | XMS_ITS | Clinical Summary ---
Author Organization [facility] Address [address] [place] [address] Care Team Providers Care Seed Collector Name Role Phone Chase Gunn MD Primary Care Provider + [phone] Allergies Active Allergy Reactions Criticality Noted Date [...] Department Care Team Description 01/24/2025 Clinical Support [address] [address] Madelaine Guevara, PharmD 01/22/2025 Clinical Support [facility] [address] [place] [phone] Madelaine Guevara, PharmD 01/20/2025 Travel 01/17/2025 Travel 01/16/2025 3:24 PM EST Anesthesia Event [facility] [address] [place] [address] Diane Wong MD Carney Tinsley, Amanda S, APRN, DNP 01/16/2025 3:00 PM EST - 01/16/2025 5:10 PM EST Surgery [facility] [address] [place] [address] Fransisco Farley MD EXPLORATION, WOUND, POSSIBLE SCS REMOVAL/REVISION, ALL OTHER INDICATED PROCEDURES [ (CPT )] 01/16/2025 Travel 01/15/2025 9:57 PM EST - 01/23/2025 1:13 PM EST Hospital Encounter [facility] A Inpatient [address] [place] [address] Fransisco Farley MD Arora, Ankit, MD Ramay, Tehreem K, MD Jose, Merlin Valdez MD MRSA bacteremia (Primary Dx); Postoperative sepsis (CMS/[facility]) [T81.44XA]; Cellulitis of back except buttock Discharge Disposition: Long-Term Facility 01/15/2025 Travel 01/14/2025 Orders Only External Location [address] [place] [address] Provider, External 01/13/2025 Orders Only External Location [address] [place] [address] Provider, External 01/10/2025 Orders Only External Location [address] [place] [address] Provider, External 01/10/2025 Orders Only External Location [address] [place] [address] Provider, External 01/10/2025 Orders Only External Location [address] [place] [address] Provider, External 01/10/2025 Orders Only External Location [address] [place] [address] Provider, External 01/10/2025 - 01/10/2025 11:59 PM EST Hospital Encounter Image Record Center [address] [place] [address] Examination Discharge Disposition: Home or Self Care [...] time in the past 12 m [facility], were you homeless or living in a mcfp (including now)? No 01/16/[address] [facility] Utilities Answer Date Recorded In the past 12 months has th e [employer], gas, oil, or water company threatened to [...] [facility] [place] [facility] [address] [place] [address] Fransisco Farley MD [address] [place] [address] Health Maintenance Due Date Last [...] 2000 UKY-Zoster Vaccines (1 of 2) 2000 [id number] Vaccine ( season) 2024 11/07/2020, 06/20/2020, 05/23/2020 [...] this topic Medical Devices Implanted Type Area Software Release Manager Device Identifier Shelf Expiration Date Model / Serial / Lot Interstim Bladder Stimulator-01/14 Implanted:01/14 (Quantity not on file) Bladder Stimulator Back Medtronic [id number] / [id number] / Stimulator Lead Medtronic-2017 Implanted:01/14 (Quantity not on file) Lead Back Medtronic [id number] / [id number] / Procedures Procedure Name Priority Date/Time Associated [...] TOTAL Routine 01/17/2025 7:50 PM EST HC HEP [...] ANESTHESIA PLACEHOLDER Routine 01/16/2025 3:32 PM EST CA AN ELECTIVE ENDOTRACHEAL AIRWAY Routine 01/16/2025 3:32 [...] - 99 mg/dL 01/23/2025 8:20 AM EST [facility] Comment:Accuracy of a glucos e result [...] for testing. Comment 01/23/2025 8:20 AM EST [facility] Hotel And Dining Room Cashier ID Benji Gilbert 01/23/2025 8:20 AM EST [facility] Device ID [id number] 01/23/2025 8:20 AM EST [facility] Specimen Type POC Capillary 01/23/2025 8:20 AM EST [facility] Blood Capillary blood specimen / Unknown 01/23/2025 8:18 AM EST 01/23/2025 8:20 AM EST us Merlin Massey MD LAB POINT OF CARE TE ST DOCKED DEVICE UNSOLICITED RESULTS Final Result Performing Organization Address City/[facility]/ZIP Co de Phone Number [facility] [address] [place] [address] * Vancomycin, Peak, Plasma Please draw ~2 [...] - 40.0 ug/mL 01/22/2025 7:07 AM EST [facility] Blood Venous blood specimen / Unknown Venipuncture / Unknown 01/22/2025 6:32 AM EST 01/22/2025 6:37 AM EST Narrative [facility] - 01/22/2025 7:07 AM EST Therapeutic Peak level: 20-40ug/mL Supra-therapeutic Peak level: >40 ug/mL us Cleve Deleon MD LAB BLOOD ORDERABLES Final Re sult Performing Organization Address City/[facility]/ZIP Co de Phone Number [facility] [address] [place] [address] * Vancomycin, Trough, Plasma Please draw ~30 [...] - 20.0 ug/mL 01/22/2025 3:45 AM EST [facility] Blood Venous blood specimen / Unknown Venipuncture / Unknown 01/22/2025 3:04 AM EST 01/22/2025 3:15 AM EST Narrative [facility] - 01/22/2025 3:45 AM EST Therapeutic Trough level: 10-20ug/mL Supra-therapeutic Trough level: >20 ug/mL us Cleve Deleon MD LAB BLOOD ORDERABLES Final Re sult [facility] [address] [place] [address] * XR Chest 1 View (01/20/2025 5:57 [...] Ha RN Authorized by: Cleve Deleon MD [place] Protocol: Verbal consent obtained?: Yes Written consent [...] preference. Patient position: Supine Catheter Lot #: [id number] Catheter psychological aide: [employer] Catheter placed: Single lumen Catheter size: 4 [...] Second attempt was proximal to first attempt. Result Kristyn Deleon MD IV THERAPY ORDERABLES Final R esult * SEND SARA MESSAGE (01/20/2025 11:02 AM EST) Urine Urine specimen obtained by clean catch procedure / Unknown Non-blood Collection / Unknown 01/20/2025 11:02 AM EST 01/20/2025 11:06 AM EST Result Kristyn Deleon MD LAB URINE ORDERABLES Final Re sult Performing Organization Address [facility] [place] [address] * Urine Avery Panel (01/20/2025 11:02 AM EST) Extra Sent for Culture 01/20/2025 1:02 PM EST [facility] Urine Urine specimen obtained by clean catch procedure / Unknown Non-blood Collection / Unknown 01/20/2025 11:02 AM EST 01/20/2025 11:06 AM EST us Cleve Deleon MD LAB URINE ORDERABLES Final Re sult Performing Organization Address [facility] Co de Phone Number [facility] [address] [place] [address] * Urinalysis Microscopic Examination (01/20/2025 11:02 AM EST) Urine Urine specimen obtained by clean catch procedure / Unknown Non-blood Collection / Unknown 01/20/2025 11:02 AM EST 01/20/2025 11:06 AM EST Result Kristyn Deleon MD LAB URINE ORDERABLES Final Re sult Performing Organization Address City/[facility] Co de Phone Number [facility] [address] [place] [address] * (ABNORMAL) Urinalysis with reflex microscopic (Culture NOT Included) (01/20/2025 11:02 AM EST) Only the most recent of2 resultswithin the time period is included. Color, Urine Yellow LAB URINALYSIS - AUTOMATED METHOD 01/20/2025 11:24 AM [facility] Clarity, Urine Cloudy LAB URINALYSIS - AUTOMATED METHOD 01/20/2025 11:24 AM [facility] Spec [place], Urine 1.017 1.005 - 1.030 LAB URINALYSIS - AUTOMATED METHOD 01/20/2025 11:24 AM [facility] pH, Urine 6.5 5.0 - 8.0 LAB URINALYSIS - AUTOMATED METHOD 01/20/2025 11:24 AM [facility] Protein, Urine Trace(A) Negative mg/dL LAB URINALYSIS - AUTOMATED METHOD 01/20/2025 11:24 AM [facility] Glucose, Urine >=1000(A) Negative mg/dL LAB URINALYSIS - AUTOMATED METHOD 01/20/2025 11:24 AM [facility] Ketones, Urine Negative Negative mg/dL LAB URINALYSIS - AUTOMATED METHOD 01/20/2025 11:24 AM [facility] Blood, Urine Trace(A) Negative LAB URINALYSIS - AUTOMATED METHOD 01/20/2025 11:24 AM [facility] Bilirubin, Urine Negative Negative LAB URINALYSIS - AUTOMATED METHOD 01/20/2025 11:24 AM [facility] Urobilinogen, Urine 0.2 0.2 to 1.0 mg/dL LAB URINALYSIS - AUTOMATED METHOD 01/20/2025 11:24 AM [facility] Leukocytes, Urine Small(A) Negative LAB URINALYSIS - AUTOMATED METHOD 01/20/2025 11:24 AM [facility] Nitrite, Urine Negative Negative LAB URINALYSIS - AUTOMATED METHOD 01/20/2025 11:24 AM [facility] RBC, Urine 2 0 to 3 /HPF LAB URINALYSIS - AUTOMATED METHOD 01/20/2025 11:24 AM [facility] WBC, Urine >50(A) 0 to 5 /HPF LAB URINALYSIS - AUTOMATED METHOD 01/20/2025 11:24 AM EST [facility] Squamous Epithelial Cells 0 - 2 0 to 5 /HPF LAB URINALYSIS - AUTOMATED METHOD 01/20/2025 11:24 AM EST [facility] Hyaline Casts 3 - 5 0 to 5 /LPF LAB URINALYSIS - AUTOMATED METHOD 01/20/2025 11:24 AM EST [facility] Bacteria, Urine Negative Negative LAB URINALYSIS - AUTOMATED METHOD 01/20/2025 11:24 AM EST [facility] Yeast (Budding and/or Pseudohyphae) Present(A) Absent LAB URINALYSIS - AUTOMATED METHOD 01/20/2025 11:24 AM EST [facility] Urine Urine specimen obtained by clean catch procedure / Unknown Non-blood Collection / Unknown 01/20/2025 11:02 AM EST 01/20/2025 11:06 AM EST us Cleve Deleon MD LAB URINE ORDERABLES Final Re sult Performing Organization Address City/[facility]/ZIP Co de Phone Number [facility] [address] [place] [address] * (ABNORMAL) Urine Culture (01/20/2025 11:02 AM EST) Culture 10,000 - 100,000 CFU/mL Trista albicans(A) 01/22/2025 7:50 AM EST [facility] Comment:This isolate has bee n identified using the FDA Approved MALDI Syllabusteryper [place] System Urine Urine specimen obtained by clean catch procedure / Unknown Non-blood Collection / Unknown 01/20/2025 11:02 AM EST 01/20/2025 11:06 AM EST us Cleve Deleon MD LAB MICROBIOLOGY - GENERAL OR DERABLES Final Result Performing Organization Address [facility]/ZIP Co de Phone Number [facility] [address] [place] [address] * (ABNORMAL) Creatine Kinase (CK), Total (01/20/2025 5:02 AM EST) Creatine Kinase, Plasma 290(H) 37 - 168 U/L 01/20/2025 5:37 AM EST [facility] Blood Venous blood specimen / Unknown Venipuncture / Unknown 01/20/2025 5:02 AM EST 01/20/2025 5:07 AM EST us Cleve Deleon MD LAB BLOOD ORDERABLES Final Re sult [facility] [address] [place] [address] * (ABNORMAL) Basic metabolic panel (01/20/2025 5:02 AM EST) Only the most recent of3 resultswithin the time period is included. Glucose, Plasma 151(H) 74 - 99 mg/dL 01/20/2025 5:37 AM EST [facility] BUN, Plasma 12 8 - 23 mg/dL 01/20/2025 5:37 AM EST [facility] Creatinine, Plasma 0.79 0.60 - 1.10 mg/dL 01/20/2025 5:37 AM EST [facility] BUN/Creatinine Ratio 15 01/20/2025 5:37 AM EST [facility] Sodium, Plasma 139 136 - 145 mmol/L 01/20/2025 5:37 AM EST [facility] Potassium, Plasma 3.6 3.6 - 4.9 mmol/L 01/20/2025 5:37 AM EST [facility] Chloride, Plasma 102 97 - 107 mmol/L 01/20/2025 5:37 AM EST [facility] CO2, Plasma 28 22 - 29 mmol/L 01/20/2025 5:37 AM EST [facility] Anion Gap 9 6 - 16 mmol/L 01/20/2025 5:37 AM EST [facility] Total Calcium, Plasma 8.2(L) 8.9 - 10.2 mg/dL 01/20/2025 5:37 AM EST [facility] eGFRcr 78.6 mL/min/1.7 3m*2 01/20/2025 5:37 AM EST [facility] Comment:Reported eGFRcr in m L/min/1.73m2 is based the CKD-EPI 2020 equation that does not use a race coefficient. Blood Venous blood specimen / Unknown Venipuncture / Unknown 01/20/2025 5:02 AM EST 01/20/2025 5:07 AM EST us Cleve Deleon MD LAB BLOOD ORDERABLES Final Re sult Performing Organization Address [facility] Co de Phone Number [facility] [address] [place] [address] * Phosphorus (01/19/2025 6:05 AM EST) Only the most recent of4 resultswithin the time period is included. Phosphorus, Plasma 3.0 2.5 - 4.5 mg/dL 01/19/2025 6:40 AM EST [facility] Blood Venous blood specimen / Unknown Venipuncture / Unknown 01/19/2025 6:05 AM EST 01/19/2025 6:15 AM EST us Cleve Deleon MD LAB BLOOD ORDERABLES Final Re sult Performing Organization Address [facility] Co de Phone Number [facility] [address] [place] [address] * Magnesium (01/19/2025 6:05 AM EST) Only the most recent of4 resultswithin the time period is included. Magnesium, Plasma 2.1 1.9 - 2.4 mg/dL 01/19/2025 6:40 AM EST [facility] Blood Venous blood specimen / Unknown Venipuncture / Unknown 01/19/2025 6:05 AM EST 01/19/2025 6:15 AM EST us Cleve Deleon MD LAB BLOOD ORDERABLES Final Re sult Performing Organization Address [facility] de Phone Number [facility] [address] [place] [address] * Blood Culture (Aerobic/Anaerobet Set) (01/18/2025 1:23 PM EST) Only the most recent of2 resultswithin the time period is included. Culture No growth at day 5 SADA 01/23/2025 2:02 PM EST [facility] Blood Venous blood specimen / Unknown Venipuncture / Unknown 01/18/2025 1:23 PM EST 01/18/2025 1:34 PM EST us Cleve Deleon MD LAB MICROBIOLOGY - GENERAL OR DERABLES Final Result Performing Organization Address City/[facility]/ZIP Co de Phone Number [facility] [address] [place] [address] * PERIPHERAL IV (SMARTFORM LINK) (01/18/2025 12:54 [...] Antibody Negative Negative 01/18/2025 5:53 AM EST [facility] Blood Blood sample taken from central line / Unknown Venipuncture / Unknown 01/18/2025 4:56 AM EST 01/18/2025 5:11 AM EST us Cleve Deleon MD LAB BLOOD ORDERABLES Final Re sult Performing Organization Address City/[facility]/ZIP Co de Phone Number [facility] [address] [place] [address] * (ABNORMAL) CBC and Differential (01/18/2025 4:56 AM EST) Only the most recent of3 resultswithin the time period is included. WBC Count 10.71(H) 3.70 - 10.30 10*3/uL LAB HEMATOLOGY METHOD 01/18/2025 5:22 AM EST [facility] RBC Count 2.79(L) 3.90 - 5.20 10*6/uL LAB HEMATOLOGY METHOD 01/18/2025 5:22 AM EST [facility] HGB 9.0(L) 11.2 - 15.7 g/dL LAB HEMATOLOGY METHOD 01/18/2025 5:22 AM EST [facility] HCT 27.4(L) 34.0 - 45.0 % LAB HEMATOLOGY METHOD 01/18/2025 5:22 AM EST [facility] Platelet Count 400(H) 155 - 369 10*3/uL LAB HEMATOLOGY METHOD 01/18/2025 5:22 AM EST [facility] MCV 98 79 - 98 fL LAB HEMATOLOGY METHOD 01/18/2025 5:22 AM EST [facility] MCH 32.3(H) 26.0 - 32.0 pg LAB HEMATOLOGY METHOD 01/18/2025 5:22 AM EST [facility] MCHC 32.8 30.7 - 35.5 g/dL LAB HEMATOLOGY METHOD 01/18/2025 5:22 AM EST [facility] RDW 14.3 11.5 - 14.5 % LAB HEMATOLOGY METHOD 01/18/2025 5:22 AM EST [facility] MPV 9.0 8.8 - 12.5 fL LAB HEMATOLOGY METHOD 01/18/2025 5:22 AM EST [facility] nRBC 0.0 <=0.0 per 100 WBCs LAB HEMATOLOGY METHOD 01/18/2025 5:22 AM EST [facility] Differential Type Automated LAB HEMATOLOGY METHOD 01/18/2025 5:22 AM EST [facility] Neutrophils % 79 % LAB HEMATOLOGY METHOD 01/18/2025 5:22 AM EST [facility] Lymphocytes % 9 % LAB HEMATOLOGY METHOD 01/18/2025 5:22 AM EST [facility] Monocytes % 9 % LAB HEMATOLOGY METHOD 01/18/2025 5:22 AM EST [facility] Eosinophils % 2 % LAB HEMATOLOGY METHOD 01/18/2025 5:22 AM EST [facility] Basophils % 0 % LAB HEMATOLOGY METHOD 01/18/2025 5:22 AM EST [facility] Immature Granulocytes % 1 % LAB HEMATOLOGY METHOD 01/18/2025 5:22 AM EST [facility] Neutrophils Absolute 8.43(H) 1.60 - 6.10 10*3/uL LAB HEMATOLOGY METHOD 01/18/2025 5:22 AM EST [facility] Lymphocytes Absolute 0.99(L) 1.20 - 3.90 10*3/uL LAB HEMATOLOGY METHOD 01/18/2025 5:22 AM EST [facility] Monocytes Absolute 0.97(H) 0.30 - 0.90 10*3/uL LAB HEMATOLOGY METHOD 01/18/2025 5:22 AM EST [facility] Eosinophils Absolute 0.21 0.00 - 0.50 10*3/uL LAB HEMATOLOGY METHOD 01/18/2025 5:22 AM EST [facility] Basophils Absolute 0.03 0.00 - 0.10 10*3/uL LAB HEMATOLOGY METHOD 01/18/2025 5:22 AM EST [facility] Immature Granulocytes Absolute 0.08(H) 0.00 - 0.06 10*3/uL LAB HEMATOLOGY METHOD 01/18/2025 5:22 AM EST [facility] Blood Blood sample taken from central line / Unknown Venipuncture / Unknown 01/18/2025 4:56 AM EST 01/18/2025 5:12 AM EST Narrative [facility] - 01/18/2025 5:22 AM EST Therapeutic decision making should be based on absolute values, rather than percentages. us Cleve Deleon MD LAB BLOOD ORDERABLES Final Re sult [facility] [address] [place] [address] * (ABNORMAL) Hepatic Function Panel (01/18/2025 4:56 AM EST) Direct Bilirubin, Plasma <0.2 <=0.3 mg/dL 01/18/2025 5:42 AM EST [facility] Alkaline Phosphatase, Plasma 263(H) 46 - 142 U/L 01/18/2025 5:42 AM EST [facility] Total Bilirubin, Plasma 0.3 0.2 - 1.1 mg/dL 01/18/2025 5:42 AM EST [facility] Albumin, Plasma 3.0(L) 3.5 - 5.2 g/dL 01/18/2025 5:42 AM EST [facility] Total Protein 6.1(L) 6.3 - 7.9 g/dL 01/18/2025 5:42 AM EST [facility] ALT, Plasma 53(H) 10 - 35 U/L 01/18/2025 5:42 AM EST [facility] AST, Plasma 70(H) 10 - 35 U/L 01/18/2025 5:42 AM EST [facility] Blood Blood sample taken from central line / Unknown Venipuncture / Unknown 01/18/2025 4:56 AM EST 01/18/2025 5:12 AM EST Cleve Deleon MD LAB BLOOD ORDERABLES Final Re sult [facility] [address] [place] [address] * Hepatitis B Surface Antibody, Quantitative (01/17/2025 7:50 PM EST) Hepatitis B Surface Antibody, Quantitative <8.00 NonReactiv e: <8, Grayzone: 8 - <12, Reactive: >= 12 mIU/mL 01/17/2025 10:06 PM EST [facility] Comment: Nonreactive. Individual is considered not immune to HBV infection. Blood Arterial blood specimen / Unknown (Central Line) Existing Catheter / Unknown 01/17/2025 7:50 PM EST 01/17/2025 7:54 PM EST Cleve Deleon MD LAB BLOOD ORDERABLES Final Re sult [facility] [address] [place] [address] * Hepatitis B Core Antibody IgM (01/17/2025 7:50 PM EST) Hepatitis B Core Antibody IgM Negative Negative 01/17/2025 10:06 PM EST [facility] Blood Arterial blood specimen / Unknown (Central Line) Existing Catheter / Unknown 01/17/2025 7:50 PM EST 01/17/2025 7:54 PM EST us Cleve Deleon MD LAB BLOOD ORDERABLES Final Re sult [facility] [address] [place] [address] * Hepatitis B Core Total Antibody IgG,IgM (01/17/2025 7:50 PM EST) Hepatitis B Core Total Antibody IgG,IgM Negative Negative 01/17/2025 10:06 PM EST [facility] Blood Arterial blood specimen / Unknown (Central Line) Existing Catheter / Unknown 01/17/2025 7:50 PM EST 01/17/2025 7:54 PM EST us Cleve Deleon MD LAB BLOOD ORDERABLES Final Re sult [facility] [address] [place] [address] * Hepatitis B Surface Antigen (01/17/2025 7:50 PM EST) Hepatitis B Surf Antigen Negative Negative 01/17/2025 10:06 PM EST [facility] Blood Arterial blood specimen / Unknown (Central Line) Existing Catheter / Unknown 01/17/2025 7:50 PM EST 01/17/2025 7:54 PM EST us Cleve Deleon MD LAB BLOOD ORDERABLES Final Re sult [facility] [address] [place] [address] * ECHO, ADULT TRANSTHORACIC COMPLETE (01/17/2025 11:55 [...] is no recent study available for direct icke-bp-kvpd comparison. Left Ventricle The left ventricle is [...] is no recent study available for direct otex-ve-xyeo comparison. us Cleve Deleon MD CV ECHO [...] on 01/16/2025 8:04 PM us Naina Dubois PREPRESS OPERATOR IMG US PROCEDURES Final Result * FL [...] Culture Heavy Growth 01/19/2025 5:17 PM EST [facility] Culture 4+ Biotype 1 Methicillin-Resis tant Staphylococcus aureus(AA) 01/19/2025 5:17 PM EST [facility] Comment: For susceptibility results refer to: - [id number] Edited result: Previously reported as Staphylococcus aureus on 01/17/2025 at 1327 EST. Staphylococcus aureus has been updated to reportable. Culture 2+ Biotype 2 Methicillin-Resis tant Staphylococcus aureus(AA) 01/19/2025 5:17 PM EST [facility] Comment: For susceptibility results refer to: - [id number] Edited result: Previously reported as Staphylococcus aureus on 01/17/2025 at 1327 EST. Staphylococcus aureus has been updated to reportable. Foreign Body Lower back structure / Unknown 01/16/2025 4:14 PM EST 01/16/2025 5:10 PM EST Comment:Pre-op diagnosis: MRSA bacteremia [R78.81, B95.62] Fransisco Gaston MD LAB MICROBIOLOGY - G ENERAL ORDERABLES Final Result Performing Organization Address City/[facility]/ZIP Co de Phone Number [facility] [address] [place] [address] * Anaerobic Culture (01/16/2025 4:14 PM EST) Only the most recent of2 resultswithin the time period is included. Culture No anaerobes isolated 01/20/2025 2:57 PM EST [facility] Foreign Body Lower back structure / Unknown 01/16/2025 4:14 PM EST 01/16/2025 5:10 PM EST Comment:Pre-op diagnosis: MRSA bacteremia [R78.81, B95.62] Fransisco Gaston MD LAB MICROBIOLOGY - G ENERAL ORDERABLES Final Result Performing Organization Address City/[facility] Co de Phone Number [facility] [address] [place] [address] * (ABNORMAL) Abscess Culture and Gram Stain (01/16/2025 4:05 PM EST) Culture Light Growth 01/19/2025 5:17 PM EST [facility] Culture 1+ Biotype 1 Methicillin-Resista nt Staphylococcus aureus(AA) 01/19/2025 5:17 PM EST [facility] Comment: The organism value for this result has been updated. These results have been appended to the previously preliminary verified report. Edited result: Previously reported as Staphylococcus aureus on 01/18/2025 at 1547 EST. Staphylococcus aureus has been updated to reportable. Culture 1+ Biotype 2 Methicillin-Resista nt Staphylococcus aureus(AA) 01/19/2025 5:17 PM EST [facility] Comment: The organism value for this result has been updated. These results have been appended to the previously preliminary verified report. Edited result: Previously reported as Staphylococcus aureus on 01/18/2025 at 1547 EST. Staphylococcus aureus has been updated to reportable. Gram Stain Result Rare Gram positive cocci in pairs and chains(A) 01/19/2025 5:17 PM EST [facility] Gram Stain Result Numerous Polymorphonuclear leukocytes(A) 01/19/2025 5:17 PM EST [facility] Abscess Lower back structure / [...] ENERAL ORDERABLES Final Result Performing Organization Address City/[facility]/ZIP Co de Phone Number [facility] [address] [place] [address] * Fungal Culture, Routine (01/16/2025 4:05 PM EST) Culture No Fungal Growth at 1 Week 01/24/2025 6:48 AM EST [facility] Abscess Topography unknown / Unknown 01/16/2025 4:05 PM EST 01/16/2025 5:10 PM EST us Cleve Deleon MD LAB MICROBIOLOGY - GENERAL OR DERABLES Final Result Performing Organization Address City/[facility] Co de Phone Number [facility] [address] [place] [address] * Peripheral IV (01/16/2025 3:45 PM EST) Narrative Nani Nixon CRNA, DNP - 01/16/2025 3:45 PM EST Nani Nixon CRNA, DNP 01/16/2025 4:59 PM Peripheral IV Date/Time: 01/16/2025 3:45 PM Placement Needle size: 18 G Location: hand Local anesthetic: none Site prep: alcohol Technique: anatomical landmarks Attempts: 1 us Diane Wong MD ANESTHESIA ORDERABLES Final R esult * CA AN ELECTIVE ENDOTRACHEAL AIRWAY, PB ANESTHESIA PLACEHOLDER (01/16/2025 3:32 PM EST) Narrative Nani Nixon CRNA, DNP - 01/16/2025 3:32 PM EST Nani Nxion CRNA, DNP 01/16/2025 3:54 PM Airway Date/Time: 01/16/2025 3:32 PM Reason: elective Airway not difficult General Information and Staff Patient location during procedure: OR MANUFACTURING AUTOMATION ENGINEER: Nixon, Nani E, MANUFACTURING AUTOMATION ENGINEER, DNP Performed: MANUFACTURING AUTOMATION ENGINEER Patient Condition Indications for airway management: anesthesia [...] 0.09(H) <0.09 ng/mL 01/16/2025 2:12 AM EST [facility] Blood Venous blood specimen / Unknown Venipuncture / Unknown 01/16/2025 12:36 AM EST 01/16/2025 12:41 AM EST Narrative [facility] - 01/16/2025 2:12 AM EST [...] predict 28 day mortality risk. Please consult [email or web address] for more information. Test performed at [facility], [facility]. us Naina Dubois PREPRESS OPERATOR LAB BLOOD ORDERABLES Fi nal Result [facility] [address] [place] [address] * (ABNORMAL) APTT (01/16/2025 12:36 AM EST) aPTT 36(H) 25 - 35 sec LAB COAGULATION METHOD 01/16/2025 1:15 AM EST [facility] Blood Venous blood specimen / Unknown Venipuncture / Unknown 01/16/2025 12:36 AM EST 01/16/2025 12:41 AM EST Fransisco Gaston MD LAB BLOOD ORDERABLES Final Result [facility] [address] [place] [address] * (ABNORMAL) Sedimentation Rate, Automated (01/16/2025 12:36 AM EST) Sedimentation Rate 96(H) <30 mm/hr 2024 12:58 AM EST [facility] Blood Venous blood specimen / Unknown Venipuncture / Unknown 01/16/2025 12:36 AM EST 01/16/2025 12:41 AM EST Fransisco Gaston MD LAB BLOOD ORDERABLES Final Result [facility] [address] [place] [address] * (ABNORMAL) Prothrombin Time/INR (01/16/2025 12:36 AM EST) Prothrombin Time 15.3(H) 12.0 - 14.3 sec LAB COAGULATION METHOD 01/16/2025 1:15 AM EST [facility] INR 1.2(H) 0.9 - 1.1 LAB COAGULATION METHOD 01/16/2025 1:15 AM EST [facility] Blood Venous blood specimen / Unknown Venipuncture / Unknown 01/16/2025 12:36 AM EST 01/16/2025 12:41 AM EST Narrative [facility] - 01/16/2025 1:15 AM EST OPTIMAL INR RANGES FOR PATIENT ON ORAL ANTICOAGULANT THERAPY Prevention of venous thromboembolism INR 2.0 to 3.0 In patients with heart disease: Atrial fibrillation INR 2.0 to 3.0 Valvular heart disease INR 2.0 to 3.0 Tissue heart valves INR 2.0 to 3.0 Mechanical prosthetic valves INR 2.5 to 3.5 Prevention of recurrent PR INR 2.5 to 3.5 us Fransisco Gaston MD LAB BLOOD ORDERABLES Final Result Performing Organization Address City/[facility]/ZIP Co de Phone Number [facility] [address] [place] [address] * Type and Screen (01/16/2025 12:36 AM [...] TEST ORDERABLES Final Result Performing Organization Address [facility] Phone Number BLOOD BANK [address] [place] [address] * (ABNORMAL) C-reactive protein (01/16/2025 12:36 AM EST) CRP, Plasma 108.5(H) <=8.0 mg/L 01/16/2025 1:14 AM EST [facility] Blood Venous blood specimen / Unknown Venipuncture / Unknown 01/16/2025 12:36 AM EST 01/16/2025 12:41 AM EST Narrative [facility] - 01/16/2025 1:14 AM EST This CRP test is appropriate for assessment of infection, systemic inflammation and/or tissue injury. To assess cardiovascular disease risk order high sensitivity CRP (CRPH). us Fransisco Gaston MD LAB BLOOD ORDERABLES Final Result [facility] [address] [place] [address] * (ABNORMAL) Hemoglobin A1c (01/16/2025 12:36 AM EST) Hemoglobin A1c 7.8(H) <5.7 % 01/16/2025 10:21 AM EST [facility] Blood Venous blood specimen / Unknown Venipuncture / Unknown 01/16/2025 12:36 AM EST 01/16/2025 12:41 AM EST Narrative [facility] - 01/16/2025 10:21 AM EST HA1C Interpretive Data: Diagnosis of Diabetes: Diabetic > or = 6.5% Pre-diabetic 5.7 to 6.4% Non-diabetic < or = 5.6% Glycemic Targets for Type I and Type II Diabetics: Non- Adults <7.0% Adults <6.0% Children and Adolescents <7.5% Source: [place] [employer]. Standards of medical care in diabetes,2017. Diabetes Care.2017:40 (suppl 1):S1-S135. Naina Dubois APRN LAB BLOOD ORDERABLES Fi nal Result Performing Organization Address City/[facility]/ZIP Co de Phone Number [facility] [address] [place] [address] * (ABNORMAL) Comprehensive Metabolic Panel, Plasma (01/16/2025 12:36 AM EST) Glucose, Plasma 141(H) 74 - 99 mg/dL 01/16/2025 1:14 AM EST [facility] BUN, Plasma 17 8 - 23 mg/dL 01/16/2025 1:14 AM EST [facility] Creatinine, Plasma 0.97 0.60 - 1.10 mg/dL 01/16/2025 1:14 AM EST [facility] BUN/Creatinine Ratio 18 01/16/2025 1:14 AM EST [facility] Sodium, Plasma 137 136 - 145 mmol/L 01/16/2025 1:14 AM EST [facility] Potassium, Plasma 4.1 3.6 - 4.9 mmol/L 01/16/2025 1:14 AM EST [facility] Chloride, Plasma 103 97 - 107 mmol/L 01/16/2025 1:14 AM EST [facility] CO2, Plasma 22 22 - 29 mmol/L 01/16/2025 1:14 AM EST [facility] Anion Gap 12 6 - 16 mmol/L 01/16/2025 1:14 AM EST [facility] Total Calcium, Plasma 9.0 8.9 - 10.2 mg/dL 01/16/2025 1:14 AM EST [facility] Total Protein 6.1(L) 6.3 - 7.9 g/dL 01/16/2025 1:14 AM EST [facility] Albumin, Plasma 2.9(L) 3.5 - 5.2 g/dL 01/16/2025 1:14 AM EST [facility] AST, Plasma 77(H) 10 - 35 U/L 01/16/2025 1:14 AM EST [facility] ALT, Plasma 54(H) 10 - 35 U/L 01/16/2025 1:14 AM EST [facility] Alkaline Phosphatase, Plasma 271(H) 46 - 142 U/L 01/16/2025 1:14 AM EST [facility] Total Bilirubin, Plasma 0.4 0.2 - 1.1 mg/dL 01/16/2025 1:14 AM EST [facility] eGFRcr 61.4 mL/min/1.7 3m*2 01/16/2025 1:14 AM EST [facility] Comment:Reported eGFRcr in m L/min/1.73m2 is based the CKD-EPI 2020 equation that does not use a race coefficient. Blood Venous blood specimen / Unknown Venipuncture / Unknown 01/16/2025 12:36 AM EST 01/16/2025 12:41 AM EST us Fransisco Gaston MD LAB BLOOD ORDERABLES Final Result [facility] [address] [place] [address] * XR OUTSIDE IMAGES (01/14/2025) Only the [...] Last Indicated MRSA 01/16/2025 01/16/2025 [place] [address] ANTHEM Advance Directives * Full Code (Latest Code Status on File) Date Activated Date Inactivated Comments 01/16/2025 1:07 AM 01/23/2025 3:13 PM Question Answer Comments I have reviewed the capacity from the link above and, if needed, have updated to appropriate status: Yes Care Teams Seed Collector Relationship Specialty Start Date End Date Chase Gunn MD [address] [facility] [address], [place] [address] PCP - General 06/21/20
--- OUTSIDE RECORDS SUMMARY | 2025-01-29 09:26 | XMS_ITS | Encounter Summary ---
Author Organization [facility] Address [address] [place] [address] Care Team Providers Care Teletype Or Varitype Keyboard Operator Name Role Phone Chase Gunn MD Primary Care Provider + [phone] Encounter Details Date Type Department Care Team [...] any time in the past 12 m [facility], were you homeless or living in a detention (including now)? No 01/16/2025 [facility] Utilities Answer Date Recorded In the [...] Consult [place] [facility] [address], [address] [place] [address] Fransisco Farley MD [address] [place] [address] documented as of this encounter Visit Diagnoses Not on filedocumented in this encounter Additional Health Concerns Assessment Noted Time A Body Mass Index follow-up plan has been documented for the patient 01/23/2025 12:18 PM EST documented as of this encounter Care Teams Teletype Or Varitype Keyboard Operator Relationship Specialty Start Date End Date Chase Gunn MD [address] [facility] [address] [place] [address] PCP - General 06/21/20 documented as of this encounter
--- OUTSIDE RECORDS SUMMARY | 2025-01-29 09:26 | XMS_ITS | Encounter Summary ---
Author Organization Healthcare Address [address] [place] [address] Care Team Providers Care Armoured Corps Officer Name Role Phone Chase Gunn MD Primary Care Provider + [phone] Encounter Details Date Type Department Care Team [...] any time in the past 12 m [facility], were you homeless or living in a skilled nursing (including now)? No 01/16/2025 [facility] Utilities Answer Date Recorded In the [...] Consult [place] [facility] [address], [address] [place] [address] Fransisco Farley MD [address] [place] [address] documented as of this encounter Visit Diagnoses Not on filedocumented in this encounter Additional Health Concerns Assessment Noted Time A Body Mass Index follow-up plan has been documented for the patient 01/23/2025 12:18 PM EST documented as of this encounter Care Teams [employer] Officer Relationship Specialty Start Date End Date Chase Gunn MD [address] [facility] [place] [address] [place], [place] [id number] PCP - General 06/21/20 documented as of this encounter
--- OUTSIDE RECORDS SUMMARY | 2025-01-29 09:26 | XMS_ITS | Encounter Summary ---
Author Organization [facility] Address [address] [place] [address] Care Team Providers Care Drum Sealer Name Role Phone Chase Gunn MD Primary Care Provider + [phone] Encounter Details Date Type Department Care Team [...] any time in the past 12 m [facility], were you homeless or living in a detention (including now)? No 01/16/2025 [facility] Utilities Answer Date Recorded In the [...] Answer Date of Assessment Author Precautions Fall risk;[facility] surveillance 01/20/2025 10:00 PM Christina Lovell RN [...] Question Answer Entry Date Author Precautions Fall risk;[facility] surveillance 01/20/2025 10:00 PM Christina Lovell RN documented in this encounter Plan of Treatment Upcoming Encounters Date Type Department Care Team (Late st Contact Info) Description 03/27/2025 8:30 AM EST Consult [place] [facility] [address], [address] [place] [address] Fransisco Farley MD [address] [place] [address] documented as of this encounter Visit Diagnoses Not on filedocumented in this encounter Additional Health Concerns Infection Onset Date Last Indicated Resolved Time MRSA 01/16/2025 01/16/2025 Assessment Noted Time A Body Mass Index follow-up plan has been documented for the patient 01/23/2025 12:18 PM EST documented as of this encounter Care Teams Drum Sealer Relationship Specialty Start Date End Date Chase Gunn MD [address] [facility] [address] [place] [address] PCP - General 06/21/20 documented as of this encounter
--- OUTSIDE RECORDS SUMMARY | 2025-01-29 09:26 | XMS_ITS | Encounter Summary ---
Author Organization Healthcare Address [address] [id number] Care Team Providers Care Windows Migration Technician Name Role Phone Chase Gunn MD Primary Care Provider + [phone] Encounter Details Date Type Department Care Team (Late st Contact Info) Description 01/22/2025 Clinical Support [facility] [address] [place] [address] Madelaine Guevara, PharmD [address] [place], [place] [id number] Social History Tobacco Use Types Packs/Day Years [...] any time in the past 12 m [facility], were you homeless or living in a retirement (including now)? No 01/16/2025 [facility] Utilities Answer Date Recorded In the [...] Date of Assessment Author Precautions Fall risk;[facility] surveillance 01/22/2025 7:48 AM Felisa [...] Consult [place] [facility] [address], [address] [place] [address] Fransisco Farley MD [address] [place] [address] documented as of this encounter Visit Diagnoses Not on filedocumented in this encounter Additional Health Concerns Infection Onset Date Last Indicated Resolved Time MRSA 01/16/2025 01/16/2025 Assessment Noted Time A Body Mass Index follow-up plan has been documented for the patient 01/22/2025 8:36 AM EST documented as of this encounter Care Teams Windows Migration Technician Relationship Specialty Start Date End Date Chase Gunn MD [address] [facility] [address] [place] [address] PCP - General 06/21/20 documented as of this encounter
--- OUTSIDE RECORDS SUMMARY | 2025-01-29 09:27 | XMS_ITS | Encounter Summary ---
Author Organization [facility] Address [address] [place] [address] Care Team Providers Care Front End Loader Driver Name Role Phone Chase Gunn MD Primary Care Provider + [phone] Encounter Details Date Type Department Care Team [...] any time in the past 12 m [facility], were you homeless or living in a longterm (including now)? No 01/16/2025 [facility] [...] Author No Risk Indicated 01/15/2025 10:00 PM Cyndey Cuello RN * Question Answer Date of [...] Consult [place] [facility] [address], [address] [place] [address] Fransisco Farley MD [address] [place] [address] documented as of this encounter Visit Diagnoses Not on filedocumented in this encounter Additional Health Concerns Assessment Noted Time A Body Mass Index follow-up plan has been documented for the patient 01/23/2025 12:18 PM EST documented as of this encounter Care Teams Front End Loader Driver Relationship Specialty Start Date End Date Chase Gunn MD [address] [facility] [address] [place] [address] PCP - General 06/21/20 documented as of this encounter
--- OUTSIDE RECORDS SUMMARY | 2025-01-29 09:27 | XMS_ITS | Encounter Summary ---
Author Organization Healthcare Address [address] [id number] Care Team Providers Care Game Protector Name Role Phone Chase Gunn MD Primary Care Provider + [phone] Encounter Details Date Type Department Care Team (Late st Contact Info) Description 01/24/2025 Clinical Support [facility] [address] [place] [address] Madelaine Guevara, PharmD [address] [place], [place] [id number] Social History Tobacco Use Types Packs/Day Years [...] any time in the past 12 m [facility], were you homeless or living in a jail (including now)? No 01/16/2025 [facility] Utilities Answer Date Recorded In [...] [address] [place] [address] Fransisco Farley MD [address] [place] [address] documented as of this encounter Visit Diagnoses Not on filedocumented in this encounter Additional Health Concerns Infection Onset Date Last Indicated Resolved Time MRSA 01/16/2025 01/16/2025 Assessment Noted Time A Body Mass Index follow-up plan has been documented for the patient 01/24/2025 8:12 AM EST documented as of this encounter Care Teams Game Protector Relationship Specialty Start Date End Date Chase Gunn MD [address] [place] [address] PCP - General 06/21/20 documented as of this encounter
--- OUTSIDE RECORDS SUMMARY | 2025-01-29 09:27 | XMS_ITS | Encounter Summary ---
Author Organization Healthcare Address [address] [place] [address] Care Team Providers Care Vp Of Technology Name Role Phone Chase Gunn MD Primary Care Provider + [phone] Encounter Details Date Type Department Care Team ([facility] st Contact Info) Description 01/13/2025 Orders Only External Location [address] [place] [address] Provider, External Social History Tobacco Use Types [...] health care facility (including now)? No 01/16/2025 [facility] Utilities Answer Date Recorded In the [...] Answer Date of Assessment Author Kristen Fall risk;[facility] surveillance 01/17/2025 8:00 AM Ofelia Gupta [...] Question Answer Entry Date Author Kristen Fall risk;[facility] surveillance 01/17/2025 8:00 AM Ofelia Gupta RN documented in this encounter Plan of Treatment Upcoming Encounters Date Type Department Care Team (Late st Contact Info) Description 03/27/2025 8:30 AM EST Consult [place] [facility] [address], [address] [place] [address] Fransisco Farley MD [address] [place] [address] documented as of this encounter Procedures Procedure Name Priority Date/Time Associated Diagnosis Comments CT NEURO OUTSIDE IMAGES 01/13/2025 documented in this encounter Results * CT NEURO OUTSIDE IMAGES (01/13/2025) Anatomical Region Laterality Modality Computed Tomogra phy 01/13/2025 us External Provider IMG CT PROCEDURES Final Result documented in this encounter Visit Diagnoses Not on filedocumented in this encounter Care Teams Vp Of Technology Relationship Specialty Start Date End Date Chase Gunn MD [address] [facility] [address] [place] [address] PCP - General 06/21/20 documented as of this encounter
--- OUTSIDE RECORDS SUMMARY | 2025-01-29 09:27 | XMS_ITS | Encounter Summary ---
Author Organization Healthcare Address [address] [place] [address] Care Team Providers Care It Director Name Role Phone Chase Gunn MD Primary Care Provider + [phone] Encounter Details Date Type Department Care Team ([facility] st Contact Info) Description 01/10/2025 Orders Only External Location [address] [place] [address] Provider, External Social History Tobacco Use Types [...] any time in the past 12 m [facility], were you homeless or living in a jail (including now)? No 01/16/2025 [facility] Utilities Answer Date Recorded In the past [...] Answer Date of Assessment Author Kristen Fall risk;[facility] surveillance 01/17/2025 8:00 AM Ofelia [...] Status * Question Answer Entry Date Author Krisetn Fall risk;[facility] surveillance 01/17/2025 8:00 AM Ofelia Gupta RN documented in this encounter Plan of Treatment Upcoming Encounters Date Type Department Care Team (Late st Contact Info) Description 03/27/2025 8:30 AM EST Consult [place] [facility] [address], [address] [place] [address] Fransisco Farley MD [address] [place] [address] documented as of this encounter Procedures Procedure Name Priority Date/Time Associated Diagnosis Comments CT NEURO OUTSIDE IMAGES 01/10/2025 documented in this encounter Results * CT NEURO OUTSIDE IMAGES (01/10/2025) Anatomical Region Laterality Modality Computed Tomogra phy 01/10/2025 us External Provider IMG CT PROCEDURES Final Result documented in this encounter Visit Diagnoses Not on filedocumented in this encounter Care Teams It Director Relationship Specialty Start Date End Date Chase Gunn MD [address] [facility] [address] [place] [address] PCP - General 06/21/20 documented as of this encounter
--- OUTSIDE RECORDS SUMMARY | 2025-01-29 09:27 | XMS_ITS | Encounter Summary ---
Author Organization Healthcare Address [address] [place] [address] Care Team Providers Care Book Shelver Name Role Phone Chase Gunn MD Primary Care Provider + [phone] Encounter Details Date Type Department Care Team ([facility] st Contact Info) Description 01/10/2025 Orders Only External Location [address] [place] [address] Provider, External Social History Tobacco Use Types [...] any time in the past 12 m [facility], were you homeless or living in a detention (including now)? No 01/16/2025 [facility] Utilities Answer Date Recorded In the [...] Answer Date of Assessment Author Kristen Fall risk;[facility] surveillance 01/17/2025 8:00 AM Ofelia Gupta RN [...] Question Answer Entry Date Author Kristen Fall risk;[facility] surveillance 01/17/2025 8:00 AM Ofelia Gupta RN documented in this encounter Plan of Treatment Upcoming Encounters Date Type Department Care Team (Late st Contact Info) Description 03/27/2025 8:30 AM EST Consult [place] [facility] [address], [address] [place] [address] Fransisco Farley MD [address] [place] [address] documented as of this encounter Procedures Procedure Name Priority Date/Time Associated Diagnosis Comments CT THORACIC OUTSIDE IMAGES 01/10/2025 documented in this encounter Results * CT THORACIC OUTSIDE IMAGES (01/10/2025) Anatomical Region Laterality Modality Computed Tomogra phy 01/10/2025 us External Provider IMG CT PROCEDURES Final Result documented in this encounter Visit Diagnoses Not on filedocumented in this encounter Care Teams Book Shelver Relationship Specialty Start Date End Date Chase Gunn MD [address] [facility] [address] [place] [address] PCP - General 06/21/20 documented as of this encounter
--- OUTSIDE RECORDS SUMMARY | 2025-01-29 09:27 | XMS_ITS | Encounter Summary ---
Author Organization Healthcare Address [address] [place] [address] Care Team Providers Care Bowl Sander Name Role Phone Chase Gunn MD Primary Care Provider + [phone] Encounter Details Date Type Department Care Team ([facility] st Contact Info) Description 01/10/2025 Orders Only External Location [address] [place] [address] Provider, External Social History Tobacco Use Types [...] any time in the past 12 m [facility], were you homeless or living in a [facility]p (including now)? No 01/16/2025 [facility] Utilities Answer Date Recorded In the [...] Answer Date of Assessment Author Kristen Fall risk;[facility] surveillance 01/17/2025 8:00 AM Ofelia Gupta [...] Question Answer Entry Date Author Kristen Fall risk;[facility] surveillance 01/17/2025 8:00 AM Ofelia Gupta RN documented in this encounter Plan of Treatment Upcoming Encounters Date Type Department Care Team (Late st Contact Info) Description 03/27/2025 8:30 AM EST Consult [place] [facility] [address], [address] [place] [address] Fransisco Farley MD [address] [place] [address] documented as of this encounter Procedures Procedure Name Priority Date/Time Associated Diagnosis Comments CT MSK OUTSIDE IMAGES 01/10/2025 documented in this encounter Results * CT MSK OUTSIDE IMAGES (01/10/2025) Anatomical Region Laterality Modality Computed Tomogra phy 01/10/2025 us External Provider IMG CT PROCEDURES Final Result documented in this encounter Visit Diagnoses Not on filedocumented in this encounter Care Teams Bowl Sander Relationship Specialty Start Date End Date Chase Gunn MD [address] [facility] [facility] [address] [place] [address] PCP - General 06/21/20 documented as of this encounter
--- OUTSIDE RECORDS SUMMARY | 2025-01-29 09:27 | XMS_ITS | Encounter Summary ---
Author Organization Healthcare Address [address] [place] [address] Care Team Providers Care Mounter Clarinets Name Role Phone Chase Gunn MD Primary Care Provider + [phone] Encounter Details Date Type Department Care Team ([facility] st Contact Info) Description 01/14/2025 Orders Only External Location [address] [place] [address] Provider, External Social History Tobacco Use Types [...] any time in the past 12 m [facility], were you homeless or living in a jail (including now)? No 01/16/2025 [facility] Utilities Answer Date Recorded In [...] Consult [place] [facility] [address] [place] [address] Fransisco Farley MD [address] [place] [address] documented as of this encounter Procedures Procedure Name Priority Date/Time Associated Diagnosis Comments XR OUTSIDE IMAGES 01/14/2025 documented in this encounter Results * XR OUTSIDE IMAGES (01/14/2025) Anatomical Region Laterality Modality Radiographic Adriana ging 01/14/2025 us External Provider IMG XR PROCEDURES Final Result documented in this encounter Visit Diagnoses Not on filedocumented in this encounter Care Teams Mounter Clarinets Relationship Specialty Start Date End Date Chase Gunn MD [address] [facility] [address] [place] [address] PCP - General 06/21/20 documented as of this encounter
--- OUTSIDE RECORDS SUMMARY | 2025-01-29 09:27 | XMS_ITS | Encounter Summary ---
Author Organization Healthcare Address [address] [place] [address] Care Team Providers Care Cancer Registry Coordinator Name Role Phone Chase Gunn MD Primary Care Provider + [phone] Encounter Details Date Type Department Care Team ([facility] st Contact Info) Description 01/10/2025 Orders Only External Location [address] [place] [address] Provider, External Social History Tobacco Use Types [...] any time in the past 12 m [facility], were you homeless or living in a fpc (including now)? No 01/16/2025 [facility] Utilities Answer Date Recorded In the [...] Answer Date of Assessment Author Kristen Fall risk;[facility] surveillance 01/17/2025 8:00 AM Ofelia Gupta [...] Suicidal Behavior (Lifetime) No 8:00 AM Ofelia Gputa RN documented as of this encounter Mental Status * Question Answer Entry Date Author Kristen Fall risk;[facility] surveillance 01/17/2025 8:00 AM Ofelia Gupta RN documented in this encounter Plan of Treatment Upcoming Encounters Date Type Department Care Team (Late st Contact Info) Description 03/27/2025 8:30 AM EST Consult [place] [facility] [address] [place] [address] Fransisco Farley MD [address] [place] [address] documented as of this encounter Procedures Procedure Name Priority Date/Time Associated Diagnosis Comments XR OUTSIDE IMAGES 01/10/2025 documented in this encounter Results * XR OUTSIDE IMAGES (01/10/2025) Anatomical Region Laterality Modality Radiographic Adriana ging 01/10/2025 us External Provider IMG XR PROCEDURES Final Result documented in this encounter Visit Diagnoses Not on filedocumented in this encounter Care Teams Cancer Registry Coordinator Relationship Specialty Start Date End Date Chase Gunn MD [address] [facility] [address] [place] [address] PCP - General 06/21/20 documented as of this encounter
--- OUTSIDE RECORDS SUMMARY | 2025-01-29 09:28 | XMS_ITS | Patient Health Record ---
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 Name Role Phone Chase Gunn Primary Care Provider [phone] Allergies Allergen (clinical drug ingredient) Drug/Non Drug Allergy documented on EMR Reaction Allergy Type Onset Date Status promethazine Promethazine sore mouth Drug Allergy Active Results Component Value Reference Range Notes P-Comprehensive Metabolic Pa torsten (CMP) Reviewed date:05/24/2024 11:29:48 AM Interpretation:glu 132, BUN 25, creat 1.24, eGFR 46 Performing Lab: Notes/Report: Test performed by [facility], [address] , [address], [place] [address] Deshawn Meade MD, Fish Grader CLIA: [id number] Sodium 141 135-145 mmol/L Potassium 5.3 3.5-5.3 [...] Interpretation:7.8 Performing Lab: Notes/Report: Test performed by [facility] [address] [place] [address] Jose Vargas, [place] [address] Deshawn Meade MD, Fish Grader CLIA: [id number] Hemoglobin A1C 7.8 <5.7 % The following HbA1c ranges recommended by the [place] [employer] (ADA) may be used as an aid in the diagnosis of diabetes mellitus. HbA1c Suggested Diagnosis >=6.5% Diabetic 5.7% - 6.4% Pre-Diabetic <5.7% Non-Diabetic P-Lipid Panel Reviewed date:05/24/2024 11:29:48 AM Interpretation: Normal Performing Lab: Notes/Report: Test performed by [facility] [address] [place] [address] Jose Vargas, [place] [address] Deshawn Meade MD, Fish Grader CLIA: [id number] Cholesterol 144 <200 mg/dL Triglycerides 111 <150 [...] Normal Performing Lab: Notes/Report: Test performed by [facility] [address] [place] [address] , [place] [address] Deshawn Meade MD, Fish Grader CLIA: [id number] TSH reflex to FT4 3.33 0.43-5.25 mU/L P-Microalbumin/Creatinine, R andom Urine Sample Reviewed date:05/24/2024 11:29:48 AM Interpretation: Normal Performing Lab: Notes/Report: Test performed by [facility] [address] [place] [address] , Jose [place], [place] [address] Deshawn Meade MD, Fish Grader CLIA: [id number] Albumin/Creatinine Ratio, Urine 4 0-30 ug/mg Microalbumin, Urine, Random 0.3 Creatinine, Urine 76.8 Estimated Average Glucose Reviewed date:05/24/2024 11:29:48 AM Interpretation:177 Performing Lab: Notes/Report: Test performed by [facility], [employer] [facility] [address] [place] [address] , [address], [place] [address] Deshawn Meade MD, Fish Grader CLIA: [id number] Estimated Average Glucose (eAG) 177 Estimated Average [...] 8.5% glycohemoglobin 8.5% 5 - 6.5 % Bone density Reviewed date:11/27/2024 03:38:01 PM Interpretation:Normal, Improved Performing Lab: Notes/Report: Normal, Improved CBC Fingerstick (in house) Reviewed date:02/23/2024 11:39:15 [...] 12:38:07 PM Interpretation:Negative Performing Lab: Notes/Report: Negative H-DIARRHEA PANEL Reviewed date:01/11/2025 09:15:50 AM Interpretation: Performing Lab: Notes/Report: CAMPYLOBACTER Not Detected NotDetected CLOSTR DIFFICIL Detected NotDetected NOTIFICATION RESULT Results called to: Rush REESE on 01/10/25 at 2249 By Shankar Gibbons, ID PLESIOMONAS Not Detected NotDetected SALMONELLA, PCR Not [...] Not Detected NotDetected SAPOVIRUS Not Detected NotDetected H-CBC Reviewed date:01/11/2025 09:15:50 AM Interpretation: Performing [...] 0.0 0-0.2 K/mm3 NRBC# 0 IG# 0.06 H-CMP Reviewed date:01/11/2025 09:15:50 AM Interpretation: Performing Lab: Notes/Report: NA 141 136-145 mmol/L K 4.2 3.5-5.1 mmoL/L CL 102 98-107 mmol/L CO2 23 22.0-30.0 mmol/L GAP 20.2 5-15 mEq/L BUN 22 7-17 mg/dl CREATT 1.60 0.52-1.04 mg/dl CRCLE 45 50-200 mL/min GFRAA 38 >60 ML/MIN EGFR 32 >60 ml/min GLU 135 74-100 mg/dl Delta: 183 on 01/10/25 CA 9.0 8.4-10.2 mg/dl BILIT 0.8 0.2-1.3 mg/dl AST 53 14-36 U/L Delta: 37 on 01/10/25 ALT 25 12-78 U/L TP 6.9 6.3-8.2 g/dl ALB 3.7 3.5-5.0 g/dl GLOB 3.2 1.3-3.2 g/dL AGRATIO 1.2 1.1-1.8 ALP 96 38-126 U/L H-CBC Reviewed date:01/12/2025 05:29:38 PM [...] 0.0 0-0.2 K/mm3 NRBC# 0 IG# 0.09 H-CMP Reviewed date:01/12/2025 05:29:38 PM Interpretation: Performing [...] 1.1-1.8 ALP 97 38-126 U/L H-CBC Reviewed date:01/15/2025 11:05:44 AM Interpretation: Performing [...] 148 74-100 mg/dl CA 9.1 8.4-10.2 mg/dl H-Vancomycin, Trough Reviewed date:01/15/2025 11:05:44 AM Interpretation: Performing Lab: Notes/Report: VANCT 10.2 5.0-10.0 ug/mL Influenza Screen (in house) Reviewed date:02/01/2024 11:20:49 [...] - 400 CBC Fingerstick (in house) Reviewed date:04/03/2024 01:35:43 [...] 01:34:52 PM Interpretation:unremarkable Performing Lab: Notes/Report: unremarkable Reason For Referral Diagnosis 1 Nausea (R11.0) Diagnosis 2 Gastroesophageal ref lux disease without esophagitis (K21.9) Diagnosis 3 Pharyngeal dysphagia (R13.13) [facility]erring Provider First Name Chase Referring Provider Last Name Luis A Referring Provider [facility] ctice Referred Provider DAYAN LYN Referred Provider Specialty Gastroentero logy General Notes Letitia Osei 10:57:47 AM > faxed to Dr. Lyn office, Letitia Osei 03/17/2024 2:01:41 PM > 04/11/2024 at 09:00am Referral Priority Routine Diagnosis 1 Other dysphagia (R13 .19) [facility] Referring Provider First Name Chase Referring Provider Last Name Luis A Referring Provider Speciality Family Pra ctice Referred Provider ENT, . Referred Provider Specialty ENT General Notes Letitia Osei 2024 02:41:20 PM > faxed to [facility] Farnaz EDWARDS Brynn 01/05/2025 09:38:55 AM > [...] W/U Status Risk Notes Problem Essential hypertension (48065788) Essential hypertension (I10) Active confirmed Problem Mixed anxiety and depressive disorder (446386660) Depression with anxiety (F41.8) Active confirmed Problem Body mass index 30+ - obesity (456725389) BMI 30.0-30.9,adult (Z68.30) Active confirmed Problem Overactive urinary bladder (disorder) (139304828) OAB (overactive bladder) (N32.81) Active confirmed Problem Mixed incontinence (834639089) Mixed incontinence (N39.46) Active confirmed Problem Chronic pain (77358630) Other chronic pain (G89.29) Active confirmed Problem Type II diabetes mellitus without complication (607674349) Type 2 diabetes mellitus without complication (E11.9) Active confirmed Problem Constipation (18103744) Constipation, unspecified constipation type (K59.00) Active confirmed Problem Gastroesophageal reflux disease without esophagitis (565984876) Gastroesophageal reflux disease without esophagitis (K21.9) Active confirmed Problem Low back pain (680339211) Bilateral low back pain without sciatica (M54.5) Active confirmed Problem 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) Active confirmed Problem Subacute vaginitis (21235333254538853) Subacute vaginitis (N76.1) Active confirmed Problem Soreness of tongue (20301019) Soreness of tongue (K14.6) Active confirmed Problem Type II diabetes mellitus without complication (746060570) Type 2 diabetes mellitus without complication, without long-term current use of insulin (E11.9) Active confirmed Problem Pharyngeal dysphagia (21660145744346) Pharyngeal dysphagia (R13.13) Active confirmed Problem Chronic anemia (950854755) Chronic anemia (D64.9) Active confirmed Problem Pure hypercholesterolemia (196037276) Pure hypercholesterolemia (E78.00) Active confirmed Problem Glossodynia (00206163) Tongue pain (K14.6) Active confirmed Problem Thyromegaly (2396166) Thyromegaly (E01.0) Active confirmed Problem Arthritis of right knee (1984853255327958) Arthritis of right knee (M17.11) Active confirmed Problem Allergic rhinitis (98652067) Allergic rhinitis, unspecified seasonality, unspecified trigger (J30.9) Active confirmed Problem Type II diabetes mellitus without complication (648845728) Type 2 diabetes mellitus without complication, unspecified whether usp insulin use (E11.9) Active confirmed Problem Chronic kidney disease stage 3B (disorder) (605076710) Stage 3b chronic kidney disease (N18.32) Active confirmed Problem Chronic kidney disease stage 3A (992332769) Stage 3a chronic kidney disease (N18.31) Active confirmed Problem Chronic kidney disease stage 3B (disorder) (564167838) Stage 3b chronic kidney disease (CKD) (N18.32) Active confirmed Problem Taste sense altered (352213274) Taste sense altered (R43.2) Active confirmed Problem Urinary incontinence (617785031) Urinary incontinence in female (R32) Active confirmed Vital Signs Heart Rate 80 /min 11/22/2024 Blood pressure diastolic 68 mm Hg 11/22/2024 Height 66.25 in 11/22/2024 Blood pressure systolic 120 mm Hg 11/22/2024 Weight 192.8 lbs 11/22/2024 BMI 30.88 kg/m2 11/22/2024 Encounters Encounter Location Date Provider Diagnosis [facility] [address] [place], [place] [id number] 02/01/2024 Chase [place] Acute URI J06.9 [facility] [address] [place], [place] [id number] 02/23/2024 Chase [place] Bronchitis J40 and N ausea R11.0 [facility] [address] [place] [id number] 03/14/2024 Chase [place] Nausea R11.0 ; Gastroesophageal reflux disease without esophagitis K21.9 ; Pharyngeal dysphagia R13.13 and Nausea and vomiting, unspecified vomiting type R11.2 [facility] [address] [place], [place] [id number] 04/03/2024 Chase [place] Persistent cough R05 .3 [facility] [address] [place], [place] [id number] 04/21/2024 Chase [place] Tongue pain K14.6 [facility] [address] [place], [place] [id number] 05/03/2024 Chase [place] Acute UTI N39.0 ; Dy suria R30.0 ; Chronic cough R05.3 and Gastroesophageal reflux disease without esophagitis K21.9 [facility] [address] [place], [place] [id number] 05/23/2024 Chase [place] Type 2 diabetes sky itus without complication E11.9 ; Essential hypertension I10 ; Pure hypercholesterolemia E78.00 ; Stage 3a chronic kidney disease N18.31 ; Gastroesophageal reflux disease without esophagitis K21.9 ; Stage 3b chronic kidney disease N18.32 ; Chronic anemia D64.9 ; BMI 28.0-28.9,adult Z68.28 and Lumbar back pain M54.50 [facility] [address] [place], [place] [id number] 06/21/2024 Chase [place] Pain in right knee M 25.561 ; Pre-op exam Z01.818 ; Arthritis of right knee M17.11 ; Type 2 diabetes mellitus without complication E11.9 ; Essential hypertension I10 ; Gastroesophageal reflux disease without esophagitis K21.9 ; Stage 3b chronic kidney disease N18.32 ; Chronic anemia D64.9 ; Mixed incontinence N39.46 and BMI 30.0-30.9,adult Z68.30 [facility] [address] [place], [place] [id number] 07/11/2024 Chase [place] Persistent cough R05 .3 ; Gastroesophageal reflux disease without esophagitis K21.9 ; Essential hypertension I10 ; OAB (overactive bladder) N32.81 and BMI 30.0-30.9,adult Z68.30 [facility] [address] [place], [place] [id number] 09/07/2024 Chase [place] Herpes zoster withou t complication B02.9 and BMI 29.0-29.9,adult Z68.29 [facility] [address] [place] [id number] 11/22/2024 Chase [place] Type 2 diabetes sky itus without complication E11.9 ; Essential hypertension I10 and Encounter for immunization Z23 [facility] [address] [place] [id number] 12/04/2024 Chase [place] Encounter for immuni zation Z23 [facility] [address] [place] [id number] 02/18/2024 Chase [place] Depression with anxi ety F41.8 [facility] [address] [place] [id number] 02/18/2024 Chase [place] [facility] [address] [place] [id number] 03/02/2024 Chase [place] Bronchitis J40 [facility] [address] [place] [id number] 03/13/2024 Chase [place] [facility] [address] [place] [id number] 03/31/2024 Chase [place] Bronchitis J40 [facility] [address] [place] [id number] 04/04/2024 Chase [place] [facility] [address] [place] [id number] 05/12/2024 Chase [place] [facility] [address] [place] [id number] 05/15/2024 Chase [place] Gastroesophageal ref lux disease without esophagitis K21.9 [facility] [address] [place] [id number] 05/19/2024 Chase [place] Depression with anxi ety F41.8 [facility] [address] [place] [id number] 05/24/2024 Chase [place] [facility] [address] [place] [id number] 06/02/2024 Chase [place] [facility] [address] [place] [id number] 07/11/2024 Chase [place] [facility] [address] [place] [id number] 07/24/2024 Chase [place] Screening for breast cancer Z12.39 [facility] [address] [place] [id number] 07/25/2024 Chase [place] [facility] [address] [place] [id number] 08/16/2024 Chase [place] Depression with anxi ety F41.8 [facility] [address] [place] [id number] 09/18/2024 Chase [place] Encounter for screen ing for osteoporosis Z13.820 [facility] [address] [place] [id number] 10/19/2024 Chase [place] [facility] [address] [place] [id number] 11/21/2024 Chase [place] Depression with anxi ety F41.8 [facility] [address] [place] [id number] 12/27/2024 Chase [place] Other dysphagia R13. 19 [facility] [address] [place] [id number] 01/08/2025 Chase [place] [facility] [address] [place] [id number] 01/16/2025 Chase [place] Assessments Encounter Date Diagnosis (ICD Code) Assessment [...] with anxi ety (ICD-10 - F41.8) 11/22/2024 Essential hypertensi on (ICD-10 - I10) 11/22/2024 Type 2 diabetes sky itus without complication (ICD-10 - E11.9) Not at goal today 12/04/2024 Encounter for immunization (ICD-10 - Z23) 12/27/2024 Other dysphagia (ICD -10 - R13.19) 07/11/2024 Essential hypertensi on (ICD-10 - I10) 11/22/2024 Encounter for immunization (ICD-10 - Z23) 06/21/2024 Arthritis of right k nee (ICD-10 - M17.11) 05/03/2024 Chronic cough (ICD-1 0 - R05.3) If symptoms persist will need further imaging 05/23/2024 Pure hypercholesterolemia (ICD-10 - E78.00) 03/14/2024 Pharyngeal dysphagia (ICD-10 - R13.13) 03/14/2024 Nausea and vomiting, unspecified vomiting type [...] likely has LPR, plan to continue Voquezna 06/21/2024 Gastroesophageal ref lux disease without esophagitis [...] Date MEDICARE PART B [address] [address] [place] [id number] [phone] [id number] Rosa Wray Self - patient is the insured [facility] [address] [place] [address] [id number] Rosa Wray Self - patient is the insured Medical (General) History Medical History History ICD Code Type 2 Diabetes Hypertension Hyperlipidemia Anxiety and Depression GERD Bilateral Fibercystic Breast Allergic Rhinitis [employer] INST[employer]ER- Dr. Virk Low Back Pain, MRI 2009 Mitral Valve Prolapse Bilateral Knee Arthritis Chronic kidney disease anemia Surgical History Surgery Date(Month/Year) Cholecystectomy Bilateral Arterial Biopsy - Head - negat kaitlin 04/11/2020 Brain Anuerysm Removal - [facility] - Cory 05/03/2020 EGD - 2015, 2021 Bladder stimulator 2018 colonoscopy - 2015, 2021, 2023 Total Right Knee replacement - Dr. West July 2024 Hospitalization History Reason Date(Month/Year) Brain Anuerysm 05/03-
--- OUTSIDE RECORDS SUMMARY | 2025-01-29 09:28 | XMS_ITS | Data Portability ---
Author Organization [facility] [place] [facility] Address [address] [place] [address] Care Team Providers Care Building Equipment Inspector Name Role Phone DARIELA LOCKETT Primary Care [...] to the recovery room in stable condition. [email or web address] Not available 12/30/2023 10:46:30 01/28/2024 01/28/2024 Switch [...] one month for reevaluation of her symptoms. [email or web address] Not available 01/07/2025 10:20:24 Plan of Treatment Reminders Order Date Submit Date Provider Last Modified By Organization Details Last Modified Time Details Appointments None recorded. Lab urinalysis panel, auto 2024 025 [email or web address] [facility], [address], [address], [place], [address], 15:56:20 urinalysis panel, auto 2023 024 [email or web address] 14 [facility], [address], [address], [place], [address], 4 09:04:10 Referral None recorded. Procedures None recorded. Surgeries cystourethr oscopy, with injections for chemodenerv ation of the bladder (SURG) 2024 025 [id number] [facility], [address], [place], [address], 12:03:09 Imaging None recorded. Medication Orders mirabegron ER 50 mg tablet,exte nded release 24 hr 2024 025 [facility], [address] [place], [address], 15:58:38 trospium 20 mg tablet 2024 025 CHRIS [facility], [address] [place], [address], 15:58:41 darifenacin ER 15 mg tablet,exte nded release 24 hr 2023 025 CH[facility]IS [facility], [address] [place], [address], 15:58:40 hydrocodone 7.5 mg-acetamin ophen 325 mg tablet 2023 024 [facility]IS [facility], [address] [place], [address], 4 10:50:21 Patient TargetsNo targets recorded. Patient Instructions Encounter Date Encounter Id Patient Instructions Last Modified By Organization Details Last Modified Time 06/15/2024 [id number] - Begin taking trazodone as directed. - Keep track of your symptoms and urine frequency. - If there is no improvement, consider Botox as discussed. - Return for follow-up to evaluate treatment progress. - Change pads as needed and monitor for any new symptoms. - Call if you experience any urgent issues or side effects. [email or web address] Not available 06/15/2024 15:54:03 12/07/2024 [id number] - Continue takin g Gemtesa as prescribed. [...] INDIC ATED color Yellow normal Not Available [facility] [address], [place], [address], 12/30/2023 11:06:58 12/30/19 24 12/30/2023 UA WITH CULTU RE IF INDIC ATED appearance Light turbid normal Not Available [facility] [address] [place] [address], [address], 12/30/2023 11:06:58 12/30/19 24 12/30/2023 UA WITH CULTU RE IF INDIC ATED glucose 1000 mg/dL normal abnormal Not Available [facility] [address] [place] [address], [address], 12/30/2023 11:06:58 12/30/19 24 12/30/2023 UA WITH CULTU RE IF INDIC ATED bilirubin Negati ve mg/dL negati ve normal Not Available [facility] [address] [place] [address], [address], 12/30/2023 11:06:58 12/30/19 24 12/30/2023 UA WITH CULTU RE IF INDIC ATED ketone Negati ve mg/dL negati ve normal Not Available [facility] [address] [place] [address], [address], 12/30/2023 11:06:58 12/30/19 24 12/30/2023 UA WITH CULTU RE IF INDIC ATED specific gravity 1.034 1.003- 1.035 normal Not Available [facility] [address] [place] [address], [address], 12/30/2023 11:06:58 12/30/19 24 12/30/2023 UA WITH CULTU RE IF INDIC ATED blood 10 /uL negati ve abnormal Not Available [facility] [address] [place] [address], [address], 12/30/2023 11:06:58 12/30/19 24 12/30/2023 UA WITH CULTU RE IF INDIC ATED pH 5 5.0 - 8.0 normal Not Available [facility] [address] [place] [address], [address], 12/30/2023 11:06:58 12/30/19 24 12/30/2023 UA WITH CULTU RE IF INDIC ATED protein Negati ve mg/dL negati ve normal Not Available [facility] [address] [place] [address], [address], 12/30/2023 11:06:58 12/30/19 24 12/30/2023 UA WITH CULTU RE IF INDIC ATED urobilinogen Normal mg/dL normal normal Not Available [facility] [address] [place] [address], [address], 12/30/2023 11:06:58 12/30/19 24 12/30/2023 UA WITH CULTU RE IF INDIC ATED nitrite Negati ve negati ve normal Not Available [facility] [address] [place] [address], [address], 12/30/2023 11:06:58 12/30/19 24 12/30/2023 UA WITH CULTU RE IF INDIC ATED leukocyte esterase Negati ve /uL negati ve normal Not Available [facility] [address] [place] [address], [address], 12/30/2023 11:06:58 12/30/19 24 12/30/2023 UA WITH CULTU RE IF INDIC ATED WBC, urine 10-20 0-5/hp f abnormal Not Available [facility] [address] [place] [address], [address], 12/30/2023 11:06:58 12/30/19 24 12/30/2023 UA WITH CULTU RE IF INDIC ATED RBC, urine 0-2 0-2/hp f normal Not Available [facility] [address] [place] [address], [address], 12/30/2023 11:06:58 12/30/19 24 12/30/2023 UA WITH CULTU RE IF INDIC ATED squamous epi. cells 0-5 0-5/hp f normal Not Available [facility] [address] [place], [address], 12/30/2023 11:06:58 12/30/19 24 12/30/2023 UA WITH CULTU RE IF INDIC ATED bacteria 4+ /hpf none seen abnormal Not Available [facility] [address] [place] [address], [address], 12/30/2023 11:06:58 12/30/19 24 12/30/2023 UA WITH CULTU RE IF INDIC ATED reflex culture see below normal Resul ts indic ate a urina ry tract infec tion. Cultu re added . Not Available [facility] [address] [place] [address], [address], 12/30/2023 11:06:58 12/30/19 24 12/30/2023 URINE CULTU RE klebsiella pneumoniae Organi sm: Klebsi ander pneumo niae Not Available [facility] [address] [place] [address], [address], 01/03/2024 10:02:59 12/30/19 24 01/03/2024 URINE CULTU RE urine culture abnormal ISOLA TE #1 COLON Y COUNT : > 100,0 00 CFU/M L Proba ble Gram Negat kaitlin Bacil angela; [place] tion In Progr ess. See [place] te Resul t(s) Below Klebs iella pneum oniae Not Available [facility] [address] [place] [address], [address], 01/03/2024 10:02:59 12/30/19 24 01/03/2024 URINE CULTU RE amox/K clav'ate(C) <=8/4 ug/mL susceptib le Not Available [facility] [address] [place] [address], [address], 01/03/2024 10:02:59 12/30/19 24 01/03/2024 URINE CULTU RE cefazolin <=2 ug/mL susceptib le Not Available [facility] [address] [place] [address], [address], 01/03/2024 10:02:59 12/30/19 24 01/03/2024 URINE CULTU RE ceftazidime <=1 ug/mL susceptib le Not Available [facility] [address] [place] [address], [address], 01/03/2024 10:02:59 12/30/19 24 01/03/2024 URINE CULTU RE ceftriaxone <=1 ug/mL susceptib le Not Available [facility] [address] [place] [address], [address], 01/03/2024 10:02:59 12/30/19 24 01/03/2024 URINE CULTU RE cefuroxime <=4 ug/mL susceptib le Not Available [facility] [address] [place] [address], [address], 01/03/2024 10:02:59 12/30/19 24 01/03/2024 URINE CULTU RE ciprofloxaci n <=0.25 ug/mL susceptib le Not Available [facility] [address] [place] [address], [address], 01/03/2024 10:02:59 12/30/19 24 01/03/2024 URINE CULTU RE gentamicin <=4 ug/mL susceptib le Not Available [facility] [address] [place] [address], [address], 01/03/2024 10:02:59 12/30/19 24 01/03/2024 URINE CULTU RE imipenem <=1 ug/mL susceptib le Not Available [facility] [address] [place] [address], [address], 01/03/2024 10:02:59 12/30/19 24 01/03/2024 URINE CULTU RE levofloxacin <=0.5 ug/mL susceptib le Not Available [facility] [address] [place] [address], [address], 01/03/2024 10:02:59 12/30/19 24 01/03/2024 URINE CULTU RE nitrofuranto in <=32 ug/mL susceptib le Not Available [facility] [address] [place] [address], [address], 01/03/2024 10:02:59 12/30/19 24 01/03/2024 URINE CULTU RE piperacillin /olya <=16 ug/mL susceptib le Not Available [facility] [address] [place] [address], [address], 01/03/2024 10:02:59 12/30/19 24 01/03/2024 URINE CULTU RE tetracycline <=4 ug/mL susceptib le Not Available [facility] [address] [place] [address], [address], 01/03/2024 10:02:59 12/30/19 24 01/03/2024 URINE CULTU RE tobramycin <=2 ug/mL susceptib le Not Available [facility] [address] [place] [address], [address], 01/03/2024 10:02:59 12/30/19 24 01/03/2024 URINE CULTU RE trimeth/sulf a <=2/38 ug/mL susceptib le Not Available [facility] [address] [place] [address], [address], 01/03/2024 10:02:59 12/30/19 24 12/30/2023 urina lysis panel , auto Unknown Analyte Clean Catch Not Available [facility] Schedule [address] [place], [address], 12/30/2023 09:37:40 12/30/19 24 12/30/2023 urina lysis panel , auto Unknown Analyte Yellow Not Available [facility] Schedule [address] [place], [address], 12/30/2023 09:37:40 11/21/12/30/2023 urina lysis panel , auto Unknown Analyte Slight ly Hazy Not Available [facility] Schedule [address] [place], [address], 12/30/2023 09:37:40 12/30/19 24 12/30/2023 urina lysis panel , auto Unknown Analyte 1.015 Not Available [facility] Schedule [address] [place], [address], 12/30/2023 09:37:40 12/30/19 24 12/30/2023 urina lysis panel , auto Unknown Analyte 1.003- 1.035 Not Available [facility] Schedule [address] [place] [address], [address], 12/30/2023 09:37:40 12/30/19 24 12/30/2023 urina lysis panel , auto Unknown Analyte 5.0 Not Available [facility] Schedule [address] [place] [address], [address], 12/30/2023 09:37:40 12/30/19 24 12/30/2023 urina lysis panel , auto Unknown Analyte 5.0-8. 0 Not Available [facility] Schedule [address] [place] [address], [address], 12/30/2023 09:37:40 12/30/19 24 12/30/2023 urina lysis panel , auto Unknown Analyte Negati ve Not Available [facility] Schedule [address] [place] [address], [address], 12/30/2023 09:37:40 12/30/19 24 12/30/2023 urina lysis panel , auto Unknown Analyte Negati ve Not Available [facility] Schedule [address] [place] [address], [address], 12/30/2023 09:37:40 12/30/19 24 12/30/2023 urina lysis panel , auto Unknown Analyte POSITI VE (Abnor mal) Not Available [facility] Schedule [address] [place], [address], 12/30/2023 09:37:40 12/30/19 24 12/30/2023 urina lysis panel , auto Unknown Analyte Negati ve Not Available [facility] Schedule [address] [place], [address], 12/30/2023 09:37:40 12/30/19 24 12/30/2023 urina lysis panel , auto Unknown Analyte Negati ve Not Available [facility] Schedule [address] [place], [address], 12/30/2023 09:37:40 12/30/1912/30/2023 urina lysis panel , auto Unknown Analyte Negati ve Not Available [facility] Schedule [address] [place], [address], 12/30/2023 09:37:40 12/30/19 24 12/30/2023 urina lysis panel , auto Unknown Analyte >1000 mg/dl Not Available [facility] Schedule [address] [place], [address], 12/30/2023 09:37:40 12/30/19 24 12/30/2023 urina lysis panel , auto Unknown Analyte Normal Not Available [facility] Schedule [address] [place], [address], 12/30/2023 09:37:40 12/30/19 24 12/30/2023 urina lysis panel , auto Unknown Analyte Negati ve Not Available [facility] Schedule [address] [place], [address], 12/30/2023 09:37:40 12/30/19 24 12/30/2023 urina lysis panel , auto Unknown Analyte Negati ve Not Available [facility] Schedule [address] [place], [address], 12/30/2023 09:37:40 12/30/19 24 12/30/2023 urina lysis panel , auto Unknown Analyte Normal Not Available [facility] Schedule [address] [place], [address], 12/30/2023 09:37:40 12/30/19 24 12/30/2023 urina lysis panel , auto Unknown Analyte Normal 1 mg/dl Not Available [facility] Schedule [address] [place], [address], 12/30/2023 09:37:40 12/30/19 24 12/30/2023 urina lysis panel , auto Unknown Analyte Negati ve Not Available [facility] Schedule [address] [place], [address], 12/30/2023 09:37:40 12/30/19 24 12/30/2023 urina lysis panel , auto Unknown Analyte Negati ve Not Available [facility] Schedule [address] [place], [address], 12/30/2023 09:37:40 12/30/19 24 12/30/2023 urina lysis panel , auto Unknown Analyte Negati ve Not Available [facility] Schedule [address] [place], [address], 12/30/2023 09:37:40 12/30/19 24 12/30/2023 urina lysis panel , auto Unknown Analyte Negati ve Not Available [facility] Schedule [address] [place], [address], 12/30/2023 09:37:40 01/28/20 24 01/28/2024 urina lysis panel , auto Unknown Analyte Clean Catch Not Available [facility] [address] [place] [address] [address], [place], [address], 01/28/2024 13:18:47 01/28/20 24 01/28/2024 urina lysis panel , auto Unknown Analyte Yellow Not Available [facility] [address], [place], [address], 01/28/2024 13:18:47 01/28/20 24 01/28/2024 urina lysis panel , auto Unknown Analyte Clear Not Available [facility] [address], [place], [address], 01/28/2024 13:18:47 01/28/20 24 01/28/2024 urina lysis panel , auto Unknown Analyte 1.015 Not Available [facility] [address], [place], [address], 01/28/2024 13:18:47 01/28/20 24 01/28/2024 urina lysis panel , auto Unknown Analyte 1.003- 1.035 Not Available [facility] [address], [place], [address], 01/28/2024 13:18:47 01/28/20 24 01/28/2024 urina lysis panel , auto Unknown Analyte 5.0 Not Available [facility] [address] [place] [address] Rd [address], [place], [address], 01/28/2024 13:18:47 01/28/20 24 01/28/2024 urina lysis panel , auto Unknown Analyte 5.0-8. 0 Not Available [facility] [address], [place], [address], 01/28/2024 13:18:47 01/28/20 24 01/28/2024 urina lysis panel , auto Unknown Analyte Negati ve Not Available [facility] [address], [place], [address], 01/28/2024 13:18:47 01/28/20 24 01/28/2024 urina lysis panel , auto Unknown Analyte Negati ve Not Available [facility] [address], [place], [address], 01/28/2024 13:18:47 01/28/20 24 01/28/2024 urina lysis panel , auto Unknown Analyte Negati ve Not Available [facility] [address], [place], [address], 01/28/2024 13:18:47 01/28/20 24 01/28/2024 urina lysis panel , auto Unknown Analyte Negati ve Not Available [facility] [address], [place], [address], 01/28/2024 13:18:47 01/28/20 24 01/28/2024 urina lysis panel , auto Unknown Analyte Negati ve Not Available [facility] [address] [place] [address] Rd [address], [place], [address], 01/28/2024 13:18:47 01/28/20 24 01/28/2024 urina lysis panel , auto Unknown Analyte Negati ve Not Available [facility] [address], [place], [address], 01/28/2024 13:18:47 01/28/20 24 01/28/2024 urina lysis panel , auto Unknown Analyte >1000 mg/dl Not Available [facility] [address], [place], [address], 01/28/2024 13:18:47 01/28/20 24 01/28/2024 urina lysis panel , auto Unknown Analyte Normal Not Available [facility] [address], [place], [address], 01/28/2024 13:18:47 01/28/20 24 01/28/2024 urina lysis panel , auto Unknown Analyte Negati ve Not Available [facility] [address], [place], [address], 01/28/2024 13:18:47 01/28/20 24 01/28/2024 urina lysis panel , auto Unknown Analyte Negati ve Not Available [facility] [address], [place], [address], 01/28/2024 13:18:47 01/28/20 24 01/28/2024 urina lysis panel , auto Unknown Analyte Normal Not Available [facility] [address], [place], [address], 01/28/2024 13:18:47 01/28/20 24 01/28/2024 urina lysis panel , auto Unknown Analyte Normal 1 mg/dl Not Available [facility] [address], [place], [address], 01/28/2024 13:18:47 01/28/20 24 01/28/2024 urina lysis panel , auto Unknown Analyte Negati ve Not Available [facility] [address] [place] [address] [address], [place], [address], 01/28/2024 13:18:47 01/28/20 24 01/28/2024 urina lysis panel , auto Unknown Analyte Negati ve Not Available [facility] [address] [place] [address] Rd [address], [place], [address], 01/28/2024 13:18:47 01/28/20 24 01/28/2024 urina lysis panel , auto Unknown Analyte Negati ve Not Available [facility] [address], [place], [address], 01/28/2024 13:18:47 01/28/20 24 01/28/2024 urina lysis panel , auto Unknown Analyte Negati ve Not Available [facility] With [address], [place], [address], 01/28/2024 13:18:47 12/08/19 25 12/07/2024 urina lysis panel , auto Unknown Analyte Clean Catch Not Available [facility] [place] [facility] [address], [place], [address], 12/07/2024 15:54:20 12/08/19 25 12/07/2024 urina lysis panel , auto Unknown Analyte Yellow Not Available [facility] [place] [facility] [address], [place], [address], 12/07/2024 15:54:20 12/08/19 25 12/07/2024 urina lysis panel , auto Unknown Analyte Clear Not Available [facility] [place] With [address], [place], [address], 12/07/2024 15:54:20 12/08/19 25 12/07/2024 urina lysis panel , auto Unknown Analyte 1.015 Not Available [facility] With [address], [place], [address], 12/07/2024 15:54:20 12/08/19 25 12/07/2024 urina lysis panel , auto Unknown Analyte 1.003 - 1.030 Not Available [facility] With [address], [place], [address], 12/07/2024 15:54:20 12/08/19 25 12/07/2024 urina lysis panel , auto Unknown Analyte 6.0 Not Available [facility] With [address], [place], [address], 12/07/2024 15:54:20 12/08/19 25 12/07/2024 urina lysis panel , auto Unknown Analyte 5.0 - 8.0 Not Available [facility] With [address], [place], [address], 12/07/2024 15:54:20 12/08/19 25 12/07/2024 urina lysis panel , auto Unknown Analyte Negati ve Not Available [facility] With [address], [place], [address], 12/07/2024 15:54:20 12/08/19 25 12/07/2024 urina lysis panel , auto Unknown Analyte Negati ve Not Available [facility] With [address], [place], [address], 12/07/2024 15:54:20 12/08/19 25 12/07/2024 urina lysis panel , auto Unknown Analyte Negati ve Not Available [facility] With [place] [address], [place], [address], 12/07/2024 15:54:20 12/08/19 25 12/07/2024 urina lysis panel , auto Unknown Analyte Negati ve Not Available [facility] With [address], [place], [address], 12/07/2024 15:54:20 12/08/19 25 12/07/2024 urina lysis panel , auto Unknown Analyte Negati ve Not Available [facility] With [address], [place], [address], 12/07/2024 15:54:20 12/08/19 25 12/07/2024 urina lysis panel , auto Unknown Analyte Negati ve Not Available [facility] With [address], [place], [address], 12/07/2024 15:54:20 12/08/19 25 12/07/2024 urina lysis panel , auto Unknown Analyte >1000 mg/dL Not Available [facility] With [address], [place], [address], 12/07/2024 15:54:20 12/08/19 25 12/07/2024 urina lysis panel , auto Unknown Analyte Normal Not Available [place] With [address], [place], [address], 12/07/2024 15:54:20 12/08/19 25 12/07/2024 urina lysis panel , auto Unknown Analyte Negati ve Not Available [facility] With [address], [place], [address], 12/07/2024 15:54:20 12/08/19 25 12/07/2024 urina lysis panel , auto Unknown Analyte Negati ve Not Available [facility] [place], [place], [address], 12/07/2024 15:54:20 12/08/19 25 12/07/2024 urina lysis panel , auto Unknown Analyte Normal Not Available [facility] With [address], [place], [address], 12/07/2024 15:54:20 12/08/19 25 12/07/2024 urina lysis panel , auto Unknown Analyte Normal Not Available [facility] With [address], [place], [address], 12/07/2024 15:54:20 12/08/19 25 12/07/2024 urina lysis panel , auto Unknown Analyte Negati ve Not Available [facility] With [address], [place], [address], 12/07/2024 15:54:20 12/08/19 25 12/07/2024 urina lysis panel , auto Unknown Analyte Negati ve Not Available [facility] With [address], [place], [address], 12/07/2024 15:54:20 12/08/19 25 12/07/2024 urina lysis panel , auto Unknown Analyte Negati ve Not Available [facility] With [place], [place], [address], 12/07/2024 15:54:20 12/08/19 25 12/07/2024 urina lysis panel , auto Unknown Analyte Negati ve Not Available [facility] [address], [place], [address], 12/07/2024 15:54:20 Result Notes None recorded. Problems Name Problem SNOMED Code Status Onset Date Resolution Date Notes Provider Name and Address Organization Details Recorded Time Overactive urinary bladder 500675689 Active 024 JOSE AMIN MD [address] [place] [address], [address] [place] [address] 15:59:10 Problem Notes None recorded. Procedures Surgical History Date Name Laterality Status Provider Name and Address Organization Details Recorded Time 07/11/19 arthroplasty of knee completed Murelene Dionicio [facility] 12/07/2024 15:54:02 cholecystectomy completed [facility] 11/22/2023 [...] Name and Address Organization Details Recorded Time 145630 Ozempic medicatio n Not available Not available Not available 11/22/2023 RxNorm [facility] [place] 14:43:39 Medications Name Sig Start Date Stop [...] Updated DateTime 06/15/2024 165.1 cm 30 kg/m2 35471.63 g Torie [facility] 06/15/2024 16:02:09 Date Recorded Body height Body mass index (BMI) Body weight Provider Name and Address Organization Details Last Updated DateTime 12/07/2024 165.1 cm 32.4 kg/m2 79873.51 adiel Greenberg [facility] 12/07/2024 15:53:27 Date Recorded Body height Body mass index (BMI) Body weight Provider Name and Address Organization Details Last Updated DateTime 01/28/2024 165.1 cm 30.6 kg/m2 92647 adiel Villatoro [facility] 01/28/2024 11:07:04 Social History Question Answer Notes LastModified by [employer] Details LastModified Time Tobacco Smoking Status Never Smoker [facility] 11/22/2023 14:47:17 What Was The Date Of Your Most Recent Tobacco Screening? 06/15/2024 [email or web address] Information not available 06/15/2024 What Is Your Relationship Status? [email or web address] Information not available 11/22/2023 Has Tobacco Cessation Counseling Been Provided? No [email or web address] Information not available 11/22/2023 Sex: Unknown Functional Status Question Answer Note LastModified by [employer] Details LastModified Time Do you use any illicit or recreational drugs? No [email or web address] Information not available 11/22/2023 Do you or have you ever used any other forms of tobacco or nicotine? No [email or web address] Information not available 11/22/2023 What is your level of alcohol consumption? None Information not available 11/22/2023 Are you currently employed? No retired [email or web address] Information not available 11/22/2023 Mental Status None recorded. Family History Relationship Description Onset Age of this Age Resolved Age Notes LastModified by Organization Details LastModified Time Father No current problems or disability [email or web address] Not available 14:47:07 Mother No current problems or disability [email or web address] Not available 14:47:07 Medical History Condition Response Diabetes Y Anemia Y Arthritis Y Stroke Y Hypertension Y Gynecological HistoryNo gynecological history recorded. Obstetrics History GPAL:G 0 P 0 0 0 0 Immunizations Vaccine Type Date Status Note Provider Nam e and Address Organization Details Recorded Time Influenza, high-dose, trivalent, PF 7 completed Not Available [facility] 12/07/2024 15:51:40 Influenza, split virus, quadrivalent, PF 8 completed Not Available [facility] 12/07/2024 15:51:40 COVID-19, mRNA, LNP-S, PF, 100 mcg/0.5mL dose or 50 mcg/0.25mL dose 1 completed Not Available [facility] 12/07/2024 15:51:40 COVID-19, mRNA, LNP-S, PF, 100 mcg/0.5mL dose or 50 mcg/0.25mL dose 1 completed Not Available [facility] 12/07/2024 15:51:40 COVID-19, mRNA, LNP-S, PF, 100 mcg/0.5mL dose or 50 mcg/0.25mL dose 1 completed Not Available [facility] 12/07/2024 15:51:40 Tdap 4 completed Not Available [facility] 12/07/2024 15:51:40 Influenza, high-dose, quadrivalent, PF 5 completed Not Available [facility] 12/07/2024 15:51:40 Pneumococcal conjugate PCV20, polysaccharide [id number] conjugate, adjuvant, PF 5 completed Not Available [facility] 12/07/2024 15:51:40 Past Encounters Encounter ID Performer Location Encounter Start Date Encounter Closed Date Diagnosis/Indication Diagnosis SNOMED-CT Code Diagnosis ICD10 Code Diagnosis IMO Codes Diagnosis Note [id number] MD [facility] [address] [place] [address] 11/22/2023 15:47:47 11/22/2023 16:02:55 Overactive urinary bladder 718119841 N32.81 Urge incon tinence of urine 60785239 N39.41 [id number] JOSE AMIN MD SURGERY SCHEDULE [address] [place] [address] 12/30/2023 08:00:22 12/30/2023 08:00:43 Postoperative pain 940206160 G89.18 [id number] MD [facility] [address] [place] [address] 01/28/2024 10:00:18 01/28/2024 11:10:43 Overactive urinary bladder 182807121 N32.81 Urge incon tinence of urine 58193203 N39.41 [id number] JOSE AMIN MD [facility] [address] [address] 06/15/2024 15:41:59 06/15/2024 16:23:09 Overactive urinary bladder 252531108 N32.81 800048 - Initiate trazodone. - Consider Botox if symptoms persist. - Monitor trospium efficacy. - Discuss consent for Botox. Urge incon tinence of urine 11724238 N39.41 733052 - Trospium prescribed . - Possible Botox as backup. - Inform patient on Botox details. - Consent for Botox if chosen. [id number] JOSE AMIN MD [facility] [address] [address] 12/07/2024 15:50:47 12/07/2024 16:37:13 Overactive urinary bladder 354313801 N32.81 958005 - Continue current medication regimen with Gemtesa, although effectiven ess is limited. - Schedule for Botox injections to manage symptoms, as discussed. Urge incon tinence of urine 83605164 N39.41 330850 - Considerat ion of Botox injections for symptom management . Nocturia 120320546 R35.1 62841 - Monitor nocturia symptoms and adjust treatment plan as necessary. [id number] JOSE AMIN MD SURGERY SCHEDULE [address] [place] [address] 01/02/2025 12:14:09 01/02/2025 12:14:53 Health Concerns Section Related Observation LastModified by Organization Detai ls LastModified Time None Recorded Concern Status LastModified by Organization Details LastModified Time None Recorded Advance Directives Directive None Recorded Payers Insurance Date Sequence Insurance Name Policy Number Policy Batista Covered Member ID Batista Member ID Guarantor Name 01/02/2025 1 [place]ARE[place] ([place] Rosa Robel Kamala [id number] Rosa Huston Kamala 01/09/2025 2 [facility] [place] [id number] Rosa Kamala [id number] Rosa Huston Kamala Notes Date Note [...] hematuria or dysuria. JOSE AMIN MD [address] [place] [address], [phone], [facility] 01/30/2024 09:04:23 06/15/2024 text/html - The [...] treatment for the condition. JOSE AMIN MD [address] [place] [address], [phone], [facility] 06/16/2024 08:49:30 12/07/2024 text/html The patient [...] note prior to signature. JOSE AMIN MD [address] [place] [address], [phone], [facility] 12/18/2024 09:26:56 OBGyn Episode No OBEpisode recorded.
[2025-01-29 09:29] LABS: Hematocrit 33.5 % (37.0-47.0); Hemoglobin 10.8 g/dL (12.2-16.2); Immature Granulocytes % 0.2 %; Mean Corpuscular HGB Conc 32.2 g/dL (31.8-35.4); Mean Corpuscular Hemoglobin 31.9 pg (27.0-31.2); Mean Corpuscular Volume 98.8 fl (81-99); Nucleated Red Blood Cells % 0 %; Platelet Count 348 K/mm3 (142-424); Red Blood Count 3.39 M/mm3 (4.20-5.40); Red Cell Distribution Width-SD 53.2 fL; White Blood Count 4.8 K/mm3 (4.8-10.8)
--- OUTSIDE RECORDS SUMMARY | 2025-01-29 09:29 | XMS_ITS | Continuity of Care Document ---
Author Organization [facility], SURGERY SCHEDULE Address [address] [place] [address] Care Team Providers Care Account Resolution Expert Name Role Phone DARIELA LOCKETT Primary Care [...] one month for reevaluation of her symptoms. [email or web address] Not available 01/07/2025 10:20:24 Plan of Treatment [...] auto Unknown Analyte Clean Catch Not Available [facility] With [address], [place], [address], 12/07/2024 15:54:20 12/08/1912/07/2024 urina lysis panel , auto Unknown Analyte Yellow Not Available [address], [place], [address], 12/07/2024 15:54:20 12/08/19 25 12/07/2024 urina lysis panel , auto Unknown Analyte Clear Not Available [facility] With [address], [place], [address], 12/07/2024 15:54:20 12/08/19 25 12/07/2024 urina lysis panel , auto Unknown Analyte 1.015 Not Available [facility] With [address], [place], [address], 12/07/2024 15:54:20 12/08/19 25 12/07/2024 urina lysis panel , auto Unknown Analyte 1.003 - 1.030 Not Available [facility] With [address], [place], [address], 12/07/2024 15:54:20 12/08/19 25 12/07/2024 urina lysis panel , auto Unknown Analyte 6.0 Not Available [facility] [address], [place], [address], 12/07/2024 15:54:20 12/08/19 25 12/07/2024 urina lysis panel , auto Unknown Analyte 5.0 - 8.0 Not Available [facility] With [address], [place], [address], 12/07/2024 15:54:20 12/08/19 25 12/07/2024 urina lysis panel , auto Unknown Analyte Negati ve Not Available [facility] With [address], [place], [address], 12/07/2024 15:54:20 12/08/19 25 12/07/2024 urina lysis panel , auto Unknown Analyte Negati ve Not Available [facility] With [address], [place], [address], 12/07/2024 15:54:20 12/08/19 25 12/07/2024 urina lysis panel , auto Unknown Analyte Negati ve Not Available [facility] With [address], [place], [address], 12/07/2024 15:54:20 12/08/19 25 12/07/2024 urina lysis panel , auto Unknown Analyte Negati ve Not Available [facility] With [address], [place], [address], 12/07/2024 15:54:20 12/08/19 25 12/07/2024 urina lysis panel , auto Unknown Analyte Negati ve Not Available [facility] With [address], [place], [address], 12/07/2024 15:54:20 12/08/19 25 12/07/2024 urina lysis panel , auto Unknown Analyte Negati ve Not Available [facility] With [address], [place], [address], 12/07/2024 15:54:20 12/08/19 25 12/07/2024 urina lysis panel , auto Unknown Analyte >1000 mg/dL Not Available [facility] With [facility] [address], [place], [address], 12/07/2024 15:54:20 12/08/19 25 12/07/2024 urina lysis panel , auto Unknown Analyte Normal Not Available [facility] With [facility] [address], [place], [address], 12/07/2024 15:54:20 12/08/19 25 12/07/2024 urina lysis panel , auto Unknown Analyte Negati ve Not Available [facility] With [facility] [address], [place], [address], 12/07/2024 15:54:20 12/08/19 25 12/07/2024 urina lysis panel , auto Unknown Analyte Negati ve Not Available [facility] With [facility] [address], [place], [address], 12/07/2024 15:54:20 12/08/19 25 12/07/2024 urina lysis panel , auto Unknown Analyte Normal Not Available [facility] With [facility] [address], [place], [address], 12/07/2024 15:54:20 12/08/19 25 12/07/2024 urina lysis panel , auto Unknown Analyte Normal Not Available [facility] With [address] F, [place], [address], 12/07/2024 15:54:20 12/08/19 25 12/07/2024 urina lysis panel , auto Unknown Analyte Negati ve Not Available [facility] [address] F, [place], [address], 12/07/2024 15:54:20 12/08/19 25 12/07/2024 urina lysis panel , auto Unknown Analyte Negati ve Not Available [facility] With [address] F, [place], [address], 12/07/2024 15:54:20 12/08/19 25 12/07/2024 urina lysis panel , auto Unknown Analyte Negati ve Not Available [facility] With [address], [place], [address], 12/07/2024 15:54:20 12/08/19 25 12/07/2024 urina lysis panel , auto Unknown Analyte Negati ve Not Available [facility] With [address], [place], [address], 12/07/2024 15:54:20 Result Notes None recorded. Problems Name Problem SNOMED Code Status Onset Date Resolution Date Notes Provider Name and Address Organization Details Recorded Time Overactive urinary bladder 600108413 Active 024 JOSE AMIN MD [address] [place] [address], [address] [place] [address] 15:59:10 Problem Notes None recorded. Procedures Surgical History Date Name Laterality Status Provider Name and Address Organization Details Recorded Time 07/11/19 25 arthroplasty of knee completed Murelene Dionicio [facility] 12/07/2024 15:54:02 cholecystectomy completed Anthony Richards [facility] 11/22/2023 14:47:43 Carpal tunnel surgery completed Eani [facility] 11/22/2023 14:47:59 hernia repair completed [facility] 11/22/2023 14:48:23 biopsy completed [facility] 11/22/2023 14:48:59 Tubal Ligation completed [facility] 11/22/2023 14:49:07 procedure on finger completed [facility] 11/22/2023 14:49:32 Cerebral Aneurysm completed [facility] 11/22/2023 14:50:43 Imaging Results None recorded. Procedure Notes None recorded. Medical Equipment None Reported. Allergies Allergen ID Allergen Name Allergen Category Reaction Reaction Severity Criticality Documentation Date Start Date Code Code System Note Provider Name and Address Organization Details Recorded Time 251070 Ozempic medicatio n Not available Not available Not available 11/22/2023 Rx[facility] 14:43:39 Medications Name Sig Start Date Stop [...] Tobacco Smoking Status Never Smoker Anthony Richards [facility] 11/22/2023 14:47:17 What Was The Date Of Your Most Recent Tobacco Screening? 06/15/2024 [email or web address] Information not available 06/15/2024 What Is Your Relationship Status? [email or web address] Information not available 11/22/2023 Has Tobacco Cessation Counseling Been Provided? No [email or web address] Information not available 11/22/2023 Sex: Unknown Functional Status Question Answer Note LastModified by Organizat ion Details LastModified Time Do you use any illicit or recreational drugs? No [email or web address] Information not available 11/22/2023 Do you or have you ever used any other forms of tobacco or nicotine? No [email or web address] Information not available 11/22/2023 What is your level of alcohol consumption? None [email or web address] Information not available 11/22/2023 Are you currently employed? No retired [email or web address] Information not available 11/22/2023 Mental Status None recorded. Family History Relationship Description Onset Age of this Age Resolved Age Notes LastModified by Organization Details LastModified Time Father No current problems or disability [email or web address] Not available 14:47:07 Mother No current problems or disability [email or web address] Not available 14:47:07 Medical History Condition Response Diabetes Y Anemia Y Arthritis Y Stroke Y Hypertension Y Gynecological HistoryNo gynecological history recorded. Obstetrics History GPAL:G 0 P 0 0 0 0 Immunizations Vaccine Type Date Status Note Provider Nam e and Address Organization Details Recorded Time Influenza, high-dose, trivalent, PF 7 completed Not Available [facility] 12/07/2024 15:51:40 Influenza, split virus, quadrivalent, PF 8 completed Not Available [facility] 12/07/2024 15:51:40 COVID-19, mRNA, LNP-S, PF, 100 mcg/0.5mL dose or 50 mcg/0.25mL dose 1 completed Not Available [facility] 12/07/2024 15:51:40 COVID-19, mRNA, LNP-S, PF, 100 mcg/0.5mL dose or 50 mcg/0.25mL dose 1 completed Not Available [facility] 12/07/2024 15:51:40 COVID-19, mRNA, LNP-S, PF, 100 mcg/0.5mL dose or 50 mcg/0.25mL dose 1 completed Not Available [facility] 12/07/2024 15:51:40 Tdap 4 completed Not Available [facility] 12/07/2024 15:51:40 Influenza, high-dose, quadrivalent, PF 5 completed Not Available [facility] 12/07/2024 15:51:40 Pneumococcal conjugate PCV20, polysaccharide RLR299 conjugate, adjuvant, PF 5 completed Not Available [facility] 12/07/2024 15:51:40 Past Encounters Encounter ID Performer Location Encounter Start Date Encounter Closed Date Diagnosis/Indication Diagnosis SNOMED-CT Code Diagnosis ICD10 Code Diagnosis IMO Codes Diagnosis Note [id number] JOSE AMIN MD [facility] [address] [facility] [address] 12/07/2024 15:50:47 12/07/2024 16:37:13 Overactive urinary bladder 091314025 N32.81 361442 - Continue current medication regimen with Gemtesa, although effectiven ess is limited. - Schedule for Botox injections to manage symptoms, as discussed. Urge incon tinence of urine 64016950 N39.41 550817 - Considerat ion of Botox injections for symptom management . Nocturia 824700893 R35.1 74864 - Monitor nocturia symptoms and adjust treatment plan as necessary. [id number] JOSE AMIN MD SURGERY SCHEDULE [address] [place] [address] 01/02/2025 12:14:09 01/02/2025 12:14:53 Health Concerns Section Related Observation LastModified by Organization Detai ls LastModified Time None Recorded Concern Status LastModified by Organization Details LastModified Time None Recorded Payers Encounter Date Sequence Insurance Name Policy Number Policy Batista Covered Member ID Batista Member ID Guarantor Name 01/02/2025 1 [place] Rosa L Kamala [id number] Rosa L Kamala 01/02/2025 2 [place] [facility] [id number] Rosa Kamala [id number] Rosa L Kamala OBGyn Episode No OBEpisode recorded.
[2025-01-29 10:00] LABS: Alanine Aminotransferase 29 U/L (12-78); Albumin Level 3.9 g/dl (3.5-5.0); Albumin/Globulin Ratio 1.4 (1.1-1.8); Alkaline Phosphatase 127 U/L (38-126); Anion Gap 11.4 mEq/L (5-15); Aspartate Amino Transferase 37 U/L (14-36); Bilirubin,Total 0.4 mg/dl (0.2-1.3); Blood Urea Nitrogen 20 mg/dl (7-17); Calcium 9.8 mg/dl (8.4-10.2); Carbon Dioxide 31 mmol/L (22.0-30.0); Chloride 99 mmol/L (98-107); Creatinine,Serum 1.30 mg/dl (0.52-1.04); Estimated Glomerular Filt Rate 40 ml/min (>60); GFR (African American) 48 ML/MIN (>60); Globulin 2.8 g/dL (1.3-3.2); Glucose 158 mg/dl (74-100); Potassium 4.4 mmoL/L (3.5-5.1); Sodium 137 mmol/L (136-145); Total Protein,Serum 6.7 g/dl (6.3-8.2)
[2025-01-29 10:02] LABS: Vancomycin,Random 14.0 ug/ml
== END 2025-01-29 23:59 | disposition home or self-care (01) ==
LOC: LAB.DROPOF 09:17
PROVIDERS: PCP Family Medicine; Visit Provider Family Medicine
DX: R78.81 Bacteremia (principal); B95.61 Methicillin susceptible Staphylococcus aureus infection as the cause of diseases classified elsewhere
CPT/HCPCS: 36415; 80053; 80202; 85025

== ENCOUNTER 2025-02-05 08:23 | Outpatient (CLI) | payer MEDICARE, BC, SELFPAY ==
--- OUTSIDE RECORDS SUMMARY | 2024-05-23 05:45 | XMS_ITS ---
Author Organization [facility] Address [address] [phone] Care Team Providers Care Pot Annealer Name Role Phone Chase Gunn Primary Care Provider [phone] Allergies Allergen (clinical drug ingredient) Drug/Non Drug Allergy documented on EMR Reaction Allergy Type Onset Date Status promethazine Promethazine sore mouth Drug Allergy Active Results Component Value Reference Range Notes P-Comprehensive Metabolic Pa torsten (CMP) Reviewed date:05/24/2024 11:29:48 AM Interpretation:glu 132, BUN 25, creat 1.24, eGFR 46 Performing Lab: Notes/Report: CLIA: [id number] Deshawn [place] MD, Senior Software Systems Engineer [address] [place] [address] , [address], [place] [address] Test performed by [facility], [facility] Sodium 141 135-145 mmol/L Potassium 5.3 3.5-5.3 [...] Interpretation:7.8 Performing Lab: Notes/Report: Test performed by [facility] [address] [place] [address] [place] [address] Deshawn [place] MD, Senior Software Systems Engineer CLIA: [id number] Hemoglobin A1C 7.8 <5.7 % The following HbA1c ranges recommended by the [place] Diabetes [employer] (ADA) may be used as an aid in the diagnosis of diabetes mellitus. HbA1c Suggested Diagnosis >=6.5% Diabetic 5.7% - 6.4% Pre-Diabetic <5.7% Non-Diabetic P-Lipid Panel Reviewed date:05/24/2024 11:29:48 AM Interpretation: Normal Performing Lab: Notes/Report: Test performed by [facility] [address] [place] [address] [address] Vargas C, [place] [address] Deshawn [place] MD, Senior Software Systems Engineer CLIA: [id number] Cholesterol 144 <200 mg/dL Triglycerides 111 <150 [...] Normal Performing Lab: Notes/Report: Test performed by [facility] [address] [place] [address] , [address] , [place] [address] Deshawn [place] MD, Senior Software Systems Engineer CLIA: [id number] TSH reflex to FT4 3.33 0.43-5.25 mU/L P-Microalbumin/Creatinine, R andom Urine Sample Reviewed date:05/24/2024 11:29:48 AM Interpretation: Normal Performing Lab: Notes/Report: Test performed by [facility] [address] [place] [address] , [place] [address] Deshawn [place] MD, Senior Software Systems Engineer CLIA: [id number] Albumin/Creatinine Ratio, Urine 4 0-30 ug/m g Microalbumin, Urine, Random 0.3 Creatinine, Urine 76.8 Estimated Average Glucose Reviewed date:05/24/2024 11:29:48 AM Interpretation:177 Performing Lab: Notes/Report: Test performed by [facility], [address] , [address] , [place] [address] Deshawn [place] MD, Senior Software Systems Engineer CLIA: [id number] Estimated Average Glucose (eAG) 177 Estimated Average [...] W/U Status Risk Notes Problem Chronic anemia (230438530) Chronic anemia (D64.9) Active confirmed Vital Signs Blood pressure systolic 116 mm Hg 05/24/19 25 Blood pressure diastolic 64 mm Hg 025 Heart Rate 63 /min 05/23/2024 Height 66.25 in 05/23/2024 Weight 181 lbs 05/23/2024 BMI 28.99 kg/m2 05/23/2024 Encounters Encounter Location Date Provider Diagnosis [facility] [address] [place], [place] [phone] 05/23/2024 Chase Gunn Type 2 diabetes sky [...] Notes * Rosa PERDOMODOB:1950 (74 yo F)Acc No.[id number]:05/23/2024 Progress Notes Patient: Rosa DICKERSON Provider: Alena Gunn M.D. :1950 A ge:73 Y S ex:Female Date:05/23/2024 Address:[address] [place], [place] [id number] Subjective: * Chief Complaints: * 1 . 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 * Surgical History: C holecystectomy , Bilateral Arterial Biopsy - Head - negative 04/11/2020, Brain Anuerysm Removal - [facility] 05/03/2020, EGD - 2015, 2021 , Bladder [...] a day as needed , Discontinued Nystatin 758429 UNIT/ML Suspension 5 ml Mouth/Throat Three times [...] hronic anemia - D64.9 8 . B RI 28.0-28.9,adult - Z68.28 9 . L umbar [...] stimated Average Glucose 177 - mg/dL * [facility], IT support 05/24/2024 08:40:06 : This order was created by the Interface. Cyndy Shelton 05/24/2024 11:29:38 AM > See phone encounter * Procedure Codes: G 2211 Complex e/m visit add on, 3051F HG A1C>EQUAL 7.0%<8.0%, G8752 MOST RECENT SYSTOLIC BP < 140MM HG, G8754 MOST RECENT DIASTOLIC BP < 90MM HG * Follow Up: 6 Months * Images: Billing Information: * Visit Code: 18772 Office Visit, Est Pt., Level 4. * Procedure Codes: G2211 Complex e/m visit add on. 3051F HG A1C>EQUAL 7.0%<8.0%. G8752 MOST RECENT SYSTOLIC BP < 140MM HG. G8754 MOST RECENT DIASTOLIC BP < 90MM HG. * Electronic signature of Cora Gunn MD on 02/05/2025 at 08:27 AM EST Sign off status: Pending * Provider: Alena Gunn M.D. Date: 0 05/23/2024 Generated for Ying mcnamara/Matilda/eTjoshuasmitting on: 1 08:27 AM EST History and Physical Notes * [...]
--- OUTSIDE RECORDS SUMMARY | 2024-06-21 06:15 | XMS_ITS ---
Author Organization [facility] Address [address] [facility] [address] [id number] Care Team Providers Care Shuttle Driver Name Role Phone Chase Gunn Primary Care [...] W/U Status Risk Notes Problem Chronic pain (87642249) Other chronic pain (G89.29) Active confirmed Problem Arthritis of right knee (4966320897997 102) Arthritis of right knee (M17.11) Active confirmed Problem Body mass index 30+ - obesity (794608755) BMI 30.0-30.9,adul t (Z68.30) Active confirmed Vital Signs Blood pressure systolic 112 mm Hg 06/22/19 25 Blood pressure diastolic 68 mm Hg 025 Heart Rate 62 /min 06/21/2024 Height 66.25 in 06/21/2024 Weight 188.2 lbs 06/21/2024 BMI 30.14 kg/m2 06/21/2024 Encounters Encounter Location Date Provider Diagnosis [facility] [facility] [facility] [address] [phone] 06/21/2024 Chase [place] Pain in right knee M 25.561 ; [...] Notes * Rosa PERDOMODOB:1950 (74 yo F)Acc No.[id number]:06/21/2024 Physical Patient: Rosa DICKERSON Provider: Alena Gunn M.D. :1950 A ge:73 Y S ex:Female Date:06/21/2024 Address:[address] [place], [place] [id number] Subjective: * Chief Complaints: * 1 . 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 * Surgical History: C holecystectomy , Bilateral Arterial Biopsy - Head - negative 04/11/2020, Brain Anuerysm Removal - [facility] 05/03/2020, EGD - 2015, 2021 , [...] ixed incontinence - N39.46 1 0. B MN 30.0-30.9,adult - Z68.30 ? Plan: * Treatment: [...] * Images: Billing Information: * Visit Code: 05808 Office Visit, Est Pt., Level 4. * [...] 06/21/2024 Generated for Ying mcnamara/Matilda/Mio on: 1 08:27 AM EST History and [...]
--- OUTSIDE RECORDS SUMMARY | 2024-07-11 06:15 | XMS_ITS ---
Author Organization [facility] Address [address] [facility] [address] [phone] Care Team Providers Care Mailing Machine Operator Name Role Phone Chase Gunn Primary Care [...] Risk Notes Problem Overactive urinary bladder (disorder) (856681357) OAB (overactiv e bladder) (N32.81) Active confirmed Vital Signs Blood pressure systolic 110 mm Hg 07/12/19 25 Blood pressure diastolic 70 mm Hg 025 Heart Rate 62 /min 07/11/2024 Height 66.25 in 07/11/2024 Weight 187.8 lbs 07/11/2024 BMI 30.08 kg/m2 07/11/2024 Encounters Encounter Location Date Provider Diagnosis [facility] [address] [facility] [address] [place], [place] [phone] 07/11/2024 Chase [place] Persistent cough R05 .3 ; Gastroesophageal reflux [...] Notes * Rosa PERDOMODOB:1950 (74 yo F)Acc No.[id number]:07/11/2024 Progress Notes Patient: Rosa DICKERSON Provider: Alena Gunn M.D. :1950 A ge:73 Y S ex:Female Date:07/11/2024 Address:[address] [place], [place] [id number] Subjective: * Chief Complaints: * 1 . 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 * Surgical History: C holecystectomy , Bilateral Arterial Biopsy - Head - negative 04/11/2020, Brain Anuerysm Removal - [facility] 05/03/2020, EGD - 2015, 2021 , [...] (overactive bladder) - N32.81 5 . B [place] 30.0-30.9,adult - Z68.30 Plan: * Treatment: Value [...] G 2211 Complex e/[place], [address] CAPILLARY BLOOD DRAW, 43229 CBC WITH AUTO DIFF, G8950 PREHTN/HTN BP DOC INDCD F/U DOC, G8752 MOST RECENT SYSTOLIC BP < 140MM HG, G8754 MOST RECENT DIASTOLIC BP < 90MM HG, 1036F TOBACCO NON-USER * Follow Up: v ia phone to report test results * Images: Billing Information: * Visit Code: 84729 Office Visit, Est Pt., Level 4. * Procedure Codes: G2211 Complex e/[place]. [address] CAPILLARY BLOOD DRAW. 18267 CBC WITH AUTO DIFF. G8950 PREHTN/HTN BP DOC INDCD F/U DOC. G8752 MOST RECENT SYSTOLIC BP < 140MM HG. G8754 MOST RECENT DIASTOLIC BP < 90MM HG. 1036F TOBACCO NON-USER. * Electronic signature of Cora Gunn MD on 02/05/2025 at 08:30 AM EST Sign off status: Pending * Provider: Alena Gunn M.D. Date: 0 07/11/2024 Generated for Ying mcnamara/Matilda/Mio on: 08:30 AM EST History and Physical Notes * [...]
--- OUTSIDE RECORDS SUMMARY | 2024-09-07 05:15 | XMS_ITS ---
[facility] Address [address] [facility] [address] [id number] Care Team Providers Care Production Quality Manager Name Role Phone Chase Gunn Primary Care Provider [phone] Allergies Allergen (clinical drug ingredient) Drug/Non Drug Allergy documented on EMR Reaction Allergy Type Onset Date Status promethazine Promethazine sore mouth Drug Allergy Active REASON FOR VISIT [facility] ER f/u Medications Medication SIG (Take, [...] 09/07/2024 Encounters Encounter Location Date Provider Diagnosis [facility] [address] [place] [id number] 09/07/2024 Chase Gunn Herpes zoster withou t [...] Notes * Rosa PERDOMODOB:1950 (74 yo F)Acc No.[id number]:09/07/2024 Progress Notes Patient: Rosa DICKERSON Provider: Alena Gunn M.D. :1950 A ge:73 Y S ex:Female Date:09/07/2024 Address:[address] [place], [place] [id number] Subjective: * Chief Complaints: * 1 . [facility] ER f/u. * HPI: H PI: 73 year old female presents with c/o Here for follow up on:?09/03/2024 [facility] er visit. 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 * Surgical History: C holecystectomy , Bilateral Arterial Biopsy - Head - negative 04/11/2020, Brain Anuerysm Removal - [facility] 05/03/2020, EGD - 2015, 2021 , Bladder [...] complication - B02.9 (Primary) 2 . B SD 29.0-29.9,adult - Z68.29 Plan: * Treatment: * Procedure Codes: G 2211 Complex e/m visit add on, G8420 BMI<30 AND >=22 CALC & DOCU, G8783 BP SCR PRFRM RCMDD DEFIND SCR INTVL, G8752 MOST RECENT SYSTOLIC BP < 140MM HG, G8754 MOST RECENT DIASTOLIC BP < 90MM HG * Follow Up: v ia phone to report progress * Images: Billing Information: * Visit Code: 26577 Office Visit, Est Pt., Level 3. * Procedure Codes: G2211 Complex e/m visit add on. G8420 BMI<30 AND >=22 CALC & DOCU. G8783 BP SCR PRFRM RCMDD DEFIND SCR INTVL. G8752 MOST RECENT SYSTOLIC BP < 140MM HG. G8754 MOST RECENT DIASTOLIC BP < 90MM HG. * Electronic signature of Cora Gunn MD on 02/05/2025 at 08:28 AM EST Sign off status: Pending * Provider: Alena Gunn M.D. Date: 0 09/07/2024 Generated for Ying mcnamara/Matilda/eTransmitting on: 1 08:28 AM EST History and Physical Notes * HPI (History of Present Illness) Category Sub-Category Detail Notes Category Not es HPI Here for follow up on: 5 [facility] er visit. Pt went to er [...]
--- OUTSIDE RECORDS SUMMARY | 2024-11-22 05:30 | XMS_ITS ---
Author Organization [facility] Address [address] [facility] [address] [phone] Care Team Providers Care Computer Project Manager Name Role Phone Chase Gunn Primary Care Provider [phone] Allergies Allergen (clinical drug ingredient) Drug/Non [...] 11/22/2024 Encounters Encounter Location Date Provider Diagnosis [facility] [address] [place], [place] [phone] 11/22/2024 Chase Gunn Type 2 diabetes sky [...] Notes * Rosa PERDOMODOB:1950 (74 yo F)Acc No.[id number]:11/22/2024 Progress Notes Patient: Rosa DICKERSON Provider: Alena Gunn M.D. :1950 A ge:73 Y S ex:Female Date:11/22/2024 Address:[address] [place], [place] [id number] Subjective: * Chief Complaints: * 1 . 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 * Surgical History: C holecystectomy , Bilateral Arterial Biopsy - Head - negative 04/11/2020, Brain Anuerysm Removal - [facility] 05/03/2020, EGD - 2015, 2021 [...] G 2211 Complex e/[place], [address] GLUCOSE TEST, 23683 CAPILLARY BLOOD DRAW, 23315 GLYCATED HEMOGLOBIN TEST, Modifiers: QW , 3052F HG A1C>EQUAL 8.0%<EQUAL 9.0%, 1036F TOBACCO NON-USER, G8950 PREHTN/HTN BP DOC INDCD F/U DOC, G8752 MOST RECENT SYSTOLIC BP < 140MM HG, G8754 MOST RECENT DIASTOLIC BP < 90MM HG, 3074F SYST BP LT 130 MM HG, 3078F DIAST BP < 80 MM HG * Follow Up: 6 Months * Images: Billing Information: * Visit Code: 67377 Office Visit, Est Pt., Level 4. * Procedure Codes: G2211 Complex e/[place]. [address] GLUCOSE TEST. 56430 CAPILLARY BLOOD DRAW. 92490 GLYCATED HEMOGLOBIN TEST. Modifiers: QW 3052F HG A1C>EQUAL 8.0%<EQUAL 9.0%. 1036F TOBACCO NON-USER. G8950 PREHTN/HTN BP DOC INDCD F/U DOC. G8752 MOST RECENT SYSTOLIC BP < 140MM HG. G8754 MOST RECENT DIASTOLIC BP < 90MM HG. 3074F SYST BP LT 130 MM HG. 3078F DIAST BP < 80 MM HG. * Electronic signature of Cora Gunn MD on 02/05/2025 at 08:26 AM EST Sign off status: Pending * Provider: Alena Gunn M.D. Date: Generated for Ying mcnamara/Matilda/Ericitting on: 08:26 AM EST History and Physical Notes * [...]
--- OUTSIDE RECORDS SUMMARY | 2024-12-04 03:45 | XMS_ITS ---
Author Organization [facility] Address [address] [facility] [address] [phone] Care Team Providers Care Business Solutions Analyst Name Role Phone Luis A Chase Primary Care Provider [phone] REASON FOR VISIT Pneumonia shot Medications Medication [...] Administered Encounters Encounter Location Date Provider Diagnosis [facility] [address] [place], [place] [phone] 12/04/2024 Chase Gunn Encounter for immunization Z23 Assessments Encounter Date Diagnosis (ICD Code) Assessment Notes Treatment Notes Treatment Clinical Notes Section Notes 12/04/2024 Encounter for immunization (ICD-10 - Z23) Plan Of Treatment No Information Progress Notes * Rosa PERDOMODOB:1950 (74 yo F)Acc No.[id number]:12/04/2024 Patient: Rosa DICKERSON Provider: Alena Gunn M.D. :1950 A ge:73 Y S ex:Female Date:12/04/2024 Address:[address] [place], [place] [address] Subjective: * Chief Complaints: * 1 . [...] (Route: Intramuscular) given by CHRISTIANE Eric , Farm Implement Mechanic on Right Deltoid (Encounter for immunization) * Images: Billing Information: * Visit Code: * Procedure Codes: * Electronic signature of Cora Gunn MD on 02/05/2025 at 08:29 AM EST Sign off status: Pending * Provider: Alena Gunn M.D. Date: Generated for Ying mcnamara/Matilda/Mio on: 08:29 AM EST
--- OUTSIDE RECORDS SUMMARY | 2024-12-27 08:31 | XMS_ITS ---
Author Organization [facility] Address 1210 [facility] [address] [phone] Care Team Providers Care Lime Kiln And Recausticizing Operator Name Role Phone Chase Gunn Primary Care Provider Reason For Referral Diagnosis 1 Other dysphagia (R13 .19) Referral Organization [facility] Referring Provider First Name Chase Referring Provider Last Name Luis A Referring Provider Speciality [facility] Referred Provider ENT, . Referred Provider Specialty ENT General Notes Letitia Osei 2024 02:41:20 PM > faxed to [facility] Farnaz EDWARDS Brynn 01/05/2025 09:38:55 AM > 01/29/2025 at 02:40pm Referral Priority Routine REASON FOR VISIT Needs referral Encounters Encounter Location Date Provider Diagnosis [facility] [address] [phone] 12/27/2024 Chase Gunn Other dysphagia R13. 19 Assessments Encounter Date Diagnosis (ICD Code) Assessment Notes Treatment Notes Treatment Clinical Notes Section Notes 12/27/2024 Other dysphagia (ICD-10 - R13.19) Plan Of Treatment Referrals Referral Date Details 01/03/2025 01/03/2025, . ENT Progress Notes * Rosa PERDOMODOB:1950 (74 yo F)Acc No.[id number]:12/27/2024 Patient: Rosa DICKERSON :1950 A ge:74 Y S ex:Female Address:[address] [place], [address] Subjective: * Chief Complaints: * N eeds referral * Medical History: * Surgical History: * Hospitalization/Major Diagno stic Procedure: * Medications: Objective: * Vitals: * Physical Examination: Assessment: * Assessment: 1. O ther dysphagia - R13.19 (Primary) Plan: * Treatment: * Procedure Codes: * true * Date: Generated for Ying mcnamara/Matilda/eTransmitting on: 08:26 AM EST Consultation Request Notes Referral Date Referring Provider Referred Provider Not es 01/03/2025 Chase Gunn ENT, .
--- OUTSIDE RECORDS SUMMARY | 2025-01-10 | XMS_ITS | Encounter Summary ---
Author Organization [facility] Address [address] [place] [address] Care Team Providers Care Conventional Mortgage Underwriter Name Role Phone Chase Gunn MD Primary Care Provider [phone] Encounter Details Date Type Department Care Team (Latest Contact Info) Description 01/10/2025 - 01/10/2025 11:59 PM [facility] Hospital Encounter Image Record Center [address] [place] [phone] Examination Discharge Disposition: Home or Self Care [...] any time in the past 12 m [facility], were you homeless or living in a fdc (including now)? No 01/16/2025 [facility] Utilities Answer Date Recorded In the past 12 months has th e [employer], [employer], oil, or water company threatened to shut [...] mouth daily. 12/07/2024 03/07/19 26 nystatin (Mycostatin) 758575 UNIT/ML suspension 04/21/2024 pioglitazone (Actos) 30 MG [...] Description 02/14/2025 1:00 PM EST Office Visit [facility] [address] [place] [address] Asher Sinha MD [address] [facility] [address] [place] [address] 03/27/2025 8:30 AM EST Consult [facility] [address] [place] [address] Fransisco Farley MD [address] [place] [address] documented as of this encounter Procedures Procedure [...] examination documented in this encounter Care Teams Conventional Mortgage Underwriter Relationship Specialty [place] [id number] PCP - General 06/21/20 documented as of this encounter
--- OUTSIDE RECORDS SUMMARY | 2025-01-10 05:00 | XMS_ITS ---
Author Organization [facility] Address [address] [facility] [address] [place] [id number] Care Team Providers Care Emergency Physician Name Role Phone Chase Gunn Primary Care Provider Allergies Allergen (clinical drug ingredient) Drug/Non Drug Allergy documented on EMR Reaction Allergy Type Onset Date Status promethazine Promethazine sore mouth Drug Allergy Active REASON FOR VISIT BP high Encounters Encounter Location Date Provider Diagnosis [place]ana 1210 [facility] [address] [place] [phone] 01/10/2025 Chase Gunn Plan Of Treatment No Information Progress Notes * Rosa PERDOMODOB:1950 (74 yo F)Acc No.[id number]:01/10/2025 Progress Notes Patient: Rosa DICKERSON Provider: Alena Gunn M.D. :1950 A ge:74 Y S ex:Female Date:01/10/2025 Address:[address] [place], [place] [id number] Subjective: * Chief Complaints: * 1 . BP high. * HPI: C ardiology: 74 year old female presents with c/o Blood Pressure Elevated.? 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 * Surgical History: C holecystectomy , Bilateral Arterial Biopsy - Head - negative 04/11/2020, Brain Anuerysm Removal - [employer] - [place] 05/03/2020, EGD - 2015, 2021 [...] Gunn M.D. Date: 03/13/2024 Generated for Ying mcnamara/Matilda/Ericitting on: 08:27 AM EST History and Physical Notes * HPI (History of Present Illness) Category Sub-Category Detail Notes Category Not es Cardiology Blood Pressure Elevated
--- OUTSIDE RECORDS SUMMARY | 2025-01-15 21:57 | XMS_ITS | Encounter Summary ---
Author Organization Healthcare Address [address] [place] [address] Care Team Providers Care Chemical Educator Name Role Phone Chase Gunn MD Primary Care Provider [phone] Reason for Referral * Consultation (Routine) - Authorized Specialty Diagnoses / Procedures Referred By Contac t Referred To Contact Infectious Diseases Diagnoses MRSA bacteremia Postoperative sepsis (CMS/HCC) Merlin Massey MD [address] [place] [address] Phone: tel: fax: Referral ID Status Reason Start Date Expiration Date Visits Requested Visits Authorized [id number] Authorized Specialty Services Required 5 07/25/2026 1 1 * Consultation (Routine) - Authorized Specialty Diagnoses / Procedures Referred By Contac t Referred To Contact Neurosurgery Diagnoses MRSA bacteremia Postoperative sepsis ([facility]/HCC) Merlin Massey MD [address] [place] [address] Phone: tel: fax: Referral ID Status Reason Start Date Expiration Date Visits Requested Visits Authorized [id number] Authorized Specialty Services Required 5 07/25/2026 1 1 Scheduling Instructions Fransisco Farley MD- s/p Spinal stimulator explant Reason for Visit * Auth/Cert (Routine) Specialty Diagnoses / Procedures Referred By Contac t Referred To Contact Diagnoses Sepsis ([facility]) infected spinal cord stimulator, MRSA Demar Jiménez MD [address] [place] [address] Phone: tel: fax: [facility] Inpatient [address] [place] [address] Referral ID Status Reason Start Date Expiration Date Visits Re quested Visits Authorized [id number] 1 1 Encounter Details Date Type Department Care Team (Latest Contact Info) Description 01/15/2025 9:57 PM EST - 01/23/2025 1:13 PM EST Hospital Encounter [facility] Inpatient [address] [place] [address] Fransisco Farley MD [address] [place] [address] Demar Jiménez MD [address] [place] [address] Cleve Deleon MD [address] [place] [address] Merlin Massey MD [address] [place] [address] MRSA bacteremia (Primary Dx); Postoperative sepsis ([facility]) [T81.44XA]; Cellulitis of back except buttock [facility]position[facility] Social History Tobacco Use Types Packs/Day Years [...] or ex-partner? Patient unable to answer 01/16/2025 AUDIT-C Answer Date Recorded Q1: How often do you have a drink containing alcohol? Never 01/31/2025 Q2: How many drinks containi ng alcohol do you have on a typical day when you are drinking? Patient does not drink Q3: How often do you have si x or more drinks on one occasion? Never 01/31/2025 Hunger Vital Sign Answer Date Recorded Within [...] any time in the past 12 m [facility], were you homeless or living in a alf (including now)? No 01/16/2025 [facility] Utilities Answer Date Recorded In the [...] on file documented as of this encounter Last Filed Vital Signs Vital Sign Reading Time Taken Comments Blood Pressure 150/70 01/23/2025 11:25 AM EST Pulse 66 01/23/2025 11:25 AM EST Temperature 36.7 C (98.1 F) 01/23/2025 11:25 AM EST Respiratory Rate 16 01/23/2025 11:25 AM EST Oxygen Saturation 94% 01/23/2025 11:25 AM EST Inhaled Oxygen Concentration - - Weight 96.3 kg (212 lb 4.9 oz) 01/22/2025 6:00 A M EST Height 160 cm (5' 3 ) 01/16/2025 3:05 PM EST Body Mass Index 37.61 01/16/2025 3:05 PM EST documented in this encounter Functional Status * Pre-op Phone Call Discharge Planning Question Answer Date of Assessment Author Patient expects to be discha rged to: home 01/16/2025 2:54 PM EST Kingsley Alarcon RN * PT Therapeutic Procedures Time Entry Question Answer Date of Assessment Author Therapeutic Exercise Time Entry 8 5 2:11 PM EST Nagi Shepherd Therapeutic Activity Time Entry 20 5 2:11 PM EST Nagi Shepherd * Result of Injury Answer Date of Assessment Author No 01/20/2025 8:18 PM EST Christina Fritz RN * Work-Related Injury Answer Date of Assessment Author No 01/20/2025 8:18 PM EST Christina Fritz RN * HEENT Question Answer Date of Assessment Author ARASH (FABIANO) X 01/23/2025 8:00 AM EST Ariadne Adame RN R Eye Mildly impaired vision 01/23/2025 8:00 AM EST Ariadne Adame RN L Eye Mildly impaired vision 01/23/2025 8:00 AM EST Ariadne Adame RN R Ear Mildly impaired hearing 01/23/2025 8:00 A M EST Ariadne Adame RN L Ear Moderately impaired hearing 01/23/2025 8: 00 AM EST Ariadne Adame RN Teeth Missing teeth 01/23/2025 8:00 AM EST Ariadne Hilton RN * BMI (Calculated) Answer Date of Assessment Author 37.7 01/22/2025 6:00 AM EST Nancy Garber * Percent Excess Weight Loss Answer Date of Assessment Author 0 01/16/2025 3:05 PM Juan Voss RN * Total Weight Change Percent Answer Date of Assessment Author 2222 01/22/2025 6:00 AM Nancy Kuhn h * Weight Change Since Preop Answer Date of Assessment Author 96.28 01/22/2025 6:00 AM Nancy Kuhn h * Initial Excess Weight Answer Date of Assessment Author -52.16 01/16/2025 3:05 PM Juan Voss RN * IBW in lbs (Bariatric) Answer Date of Assessment Author 115 01/16/2025 3:05 PM Juan Voss RN * Weight Change Since Last Visit Answer Date of Assessment Author -0.32 01/22/2025 6:00 AM Nancy Kuhn h * IBW in kg (Bariatric) Answer Date of Assessment Author 52.16 01/16/2025 3:05 PM Juan Voss RN * Percent of IBW Answer Date of Assessment Author 6,533.74 01/16/2025 3:05 PM Juan Voss RN * EBW (kg) Answer Date of Assessment Author 3,406.52 01/16/2025 3:05 PM Juan Voss RN * EBW (lbs) Answer Date of Assessment Author 3,400.81 01/16/2025 3:05 PM Juan Voss RN * Progress Answer Date of Assessment Author no change 01/22/2025 8:51 PM Christina Lovell RN * Infection Management Answer Date of Assessment Author aseptic technique maintained 01/22/2025 8:51 PM Christina Lovell RN * Adaptive Equipment Use Answer Date of Assessment Author use encouraged 01/22/2025 7:56 AM Harshil Sidhu RN * Oral Nutrition Promotion Answer Date of Assessment Author physical activity promoted 01/22/2025 8:51 PM Christina Yeh, RAI * Fever Reduction/Comfort Measures Answer Date of Assessment Author lightweight bedding;lightweight clothing 025 8:51 PM Christina Lovell, RN * Trust Relationship/Rapport Answer Date of Assessment Author care explained;questions encouraged;choices provided;reassurance provided;emotional support provided;thoughts/feelings acknowledged;empathic listening provided;questions answered 01/22/2025 8:51 PM Christina Lovell RN * Pressure Reduction Devices Answer Date of Assessment Author pressure-redistributing mattress utilized 2024 8:51 PM Christina Lovell, RAI * Nutrition Interventions Answer Date of Assessment Author food preferences provided 01/22/2025 8:51 PM Christina Lovell, RAI * Infection Prevention Answer Date of Assessment Author environmental surveillance performed;equipment surfaces disinfected;hand hygiene promoted;single patient room provided;rest/sleep promoted 01/22/2025 8:51 PM Christina Lovell, RAI * Outcome Evaluation Answer Date of Assessment Author POC reviewed with pt. 01/22/2025 8:51 PM Christina Head, RAI * Medication Review/Management Answer Date of Assessment Author medications reviewed 01/22/2025 8:51 PM Christina Cr RN * Skin Protection Answer Date of Assessment Author incontinence pads utilized 01/22/2025 8:51 PM Christina Yeh RN * Self-Care Promotion Answer Date of Assessment Author independence encouraged;BADL personal objects within reach 01/22/2025 8:51 PM Christina Lovell RN * Safety Interventions Question Answer Date of Assessment Author Bleeding Management dressing monitored;movement restricted 01/18/2025 8:00 AM Felisa Sidhu RN * Gastrointestinal Care Question Answer Date of Assessment Author Nausea/Vomiting Interventions nausea triggers minimized 01/18/2025 8:00 AM Felisa Sidhu RN * Skin Interventions Question Answer Date of Assessment Author Pressure Reduction Techniques frequent weight shift encouraged;heels elevated off bed;positioned off wounds;pressure points protected;rest period provided between sit times 01/22/2025 7:48 AM Felisa Sidhu RN * Goal: Anesthesia/Sedation Recovery Question Answer Date of Assessment Author Outcome Anesthesia/Sedation Recovery met 01/16/2025 6:15 PM Felisa Forrest RN * Respiratory Interventions Question Answer Date of Assessment Author Airway/Ventilation Management calming measures promoted;position adjusted;oxygen therapy provided 01/18/2025 8:00 AM EST Couch, Felisa, RN * Activity and Hygiene Care Question Answer Date of Assessment Author Oral Care oral rinse provided 01/22/2025 7:48 AM Felisa Chery RN * Discharge Needs Assessment Question Answer Date of Assessment Author Discharge Facility/Level of Care Needs [facility] 01/23/2025 10:09 AM Amanda Ford RN Equipment Needed After Discharge other (see comments) 01/23/2025 10:09 AM Amanda Ford RN Discharge Coordination/Progress Going to [facility] 01/23/2025 10:09 AM Amanda Ford RN Equipment Currently Used at Home walker, rollator;shower chair 01/23/2025 10:09 AM Amanda Ford RN Current Outpatient/Agency/Support Group clinic(s);DME 01/23/2025 10:09 AM Amanda Ford RN Anticipated Changes Related to Illness none 01/23/2025 10:09 AM Amanda Ford RN Concerns Comments Patient is going to [facility] where they can assist with care coordination. 01/23/2025 10:09 AM Amanda Ford RN Transportation Anticipated other (see comments) 01/23/2025 10:09 AM Amanda Ford RN Outpatient/Agency/Support Group Needs [facility] facility;OT, PT, [employer] 01/23/2025 10:09 AM Amanda Ford RN Transportation Concerns none 01/24/20 25 10:09 AM Amanda Ford RN Current Discharge Risk chronically ill 10:09 AM Amanda Ford RN Concerns to be Addressed no discharge ne eds identified;denies needs/concerns at this time;care coordination/care conferences 01/23/2025 10:09 AM Amanda Ford RN Readmission Within the Last 30 Days no previous admission in last 30 days 01/23/2025 10:09 AM Amanda Ford RN Patient/Family Anticipated Services at Transition rehabilitation services;[facility] 01/23/2025 10:09 AM Amanda Ford RN Patient's Choice of Community Agency(s) [facility] 01/23/2025 10:09 AM Amanda Ford RN Patient/Family Anticipates Transition to other (see comments) 01/23/2025 10:09 AM Amanda Ford RN Offered/Gave Vendor List yes 025 10:09 AM Amanda Ford RN Does the patient need discharge transport arranged? Yes 01/23/2025 10:09 AM Amanda Ford RN Has discharge transport been arranged? Yes 01/23/2025 10:09 AM Amanda Ford RN What day is the transport expected? [id number] 01/23/2025 10:09 AM Amanda Ford RN What time is the transport expected? [id number] 01/23/2025 10:09 AM Amanda Ford RN Who is requesting discharge planning? Provider 01/23/2025 10:09 AM Amanda Ford RN * Goal: Optimal Comfort and Wellbeing Question Answer Date of Assessment Author Outcome Optimal Comfort and Wellbeing met 01/16/2025 6:15 PM Felisa Forrest RN Elevated Risk Identified pain;situational anxiety 01/16/2025 5:31 PM Felisa Forrest RN * Goal: Minimized Risk/Safety Maintenance Question Answer Date of Assessment Author Elevated Risk Identified infection;procedure -related injury;VTE (venous thromboembolism) 01/16/2025 5:31 PM Felisa Forrest RN Outcome Minimized Risk and Safety met 01/16/2025 6:15 PM Felisa Forrest RN * Goal: Physiologic Homeostasis Question Answer Date of Assessment Author Elevated Risk Identified bleeding;respiratory compromise;postopera tive nausea and vomiting 01/16/2025 5:31 PM Felisa Forrest RN Outcome Physiologic Homeostasis met 01/16/2025 6:15 PM Felisa Forrest RN * Weight Change 24 hrs Answer Date of Assessment Author -.316 01/22/2025 6:00 AM Nancy Kuhn h * Precautions Question Answer Date of Assessment Author Medical Precautions Fall precautions;Sei zure precautions 01/18/2025 11:05 AM Dianelys Benson * Date of OT Session Question Answer Date of Assessment Author OT Initials KF 01/18/2025 11:05 AM Dianelys Guan * Participants in Care Question Answer Date of Assessment Author Glass Lathe Operator N/A 01/18/2025 11:05 AM Dianelys Guan Family/Caregiver Present N 01/18/2025 11:05 AM Dianelys Benson * Presentation Question Answer Date of Assessment Author Lines and Tubes PICC;Intravenous access;Telemetry 01/18/2025 11:05 AM Dianelys Benson Pre-Session Supine;Head of bed elevated;Lines intact;Bed alarm 01/18/2025 11:05 AM Dianelys Benson Post-Session Sitting in chair;Carine ir alarm;Lines intact;RN notified;Call light in reach 01/18/2025 11:05 AM Dianelys Benson Pre-Session Comments RN consented to treatment 01/18/2025 11:05 AM Dianelys Benson Post-Session Comments All needs met 01/18/2025 11:05 A M Dianelys Benson * Sensation Question Answer Date of Assessment Author Light Touch: Right Upper Extremity Intact 2024 11:05 AM Dianelys Benson * Sensation Question Answer Date of Assessment Author Light Touch: Left Upper Extremity Intact 025 11:05 AM Dianelys Benson * Sensation Question Answer Date of Assessment Author Light Touch: Right Lower Extremity Intact 2024 11:05 AM Dianelys Benson * Sensation Question Answer Date of Assessment Author Light Touch: Left Lower Extremity Intact 025 11:05 AM Dianelys Benson * Bed Mobility Exam: Scooting/Bridging Question Answer Date of Assessment Author Level of Burnett Dependent 01/18/2025 11:00 AM Dianelys Benson Physical/Nonphysical Assist Verbal Cues;Nonverbal cues (demo/gestures);Maxim al cues;Additional assist utilized for safety 01/18/2025 11:00 AM Dianelys Benson * Bed Mobility Exam: Supine to Sit Question Answer Date of Assessment Author Level of Burnett Moderate assist (5 0% patient's effort) 01/18/2025 11:00 AM Dianelys Benson Physical/Nonphysical Assist HOB elevated;Moderate cues;Verbal Cues 01/18/2025 11:00 AM Dianelys Benson Assistive Device Bed rails 01/18/2025 11:0 0 AM Dianelys Benson * Transfer Exam: Sit to stand Question Answer Date of Assessment Author Level of Burnett Moderate assist (5 0% patient's effort) 01/18/2025 11:00 AM Dianelys Benson Physical/Nonphysical Assist Verbal Cues;Maximal cues;Additional assist utilized for safety 01/18/2025 11:00 AM Aspen Bensonberly Assistive Device Walker, rolling 01/18/2025 11:0 0 AM Dianelys Benson * Transfer Exam: Stand to Sit Question Answer Date of Assessment Author Level of Burnett Moderate assist (5 0% patient's effort) 01/18/2025 11:00 AM Aspen Bensonberly Physical/Nonphysical Assist Verbal Cues;Maximal cues;Additional assist utilized for safety 01/18/2025 11:00 AM Dianelys Benson Assistive Device Walker, rolling 01/18/2025 11:0 0 AM Dianelys Benson * Transfer Exam: Bed to Chair/Chair to Bed Question Answer Date of Assessment Author Type of Transfer Sidesteps 01/18/2025 11:0 0 AM Dianelys Benson Level of Burnett Moderate assist (5 0% patient's effort) 01/18/2025 11:00 AM Dianelys Benson Physical/Nonphysical Assist Verbal Cues;Maximal cues;Additional assist utilized for safety 01/18/2025 11:00 AM Aspen Bensonberly Assistive Device Walker, rolling 01/18/2025 11:0 0 AM Dianelys Benson * Postural Appearance Question Answer Date of Assessment Author Posture Forward head;Rounded shoulders;Stooped posture 01/18/2025 11:05 AM Dianelys Benson * Interventions Question Answer Date of Assessment Author Self-Care Interventions OT provided extr a time and mod VC's/gestural cues for patient to initiate and complete ADL tasks. Pt positioned upright at edge of bed in prep for seated level ADL tasks, min A needed for static sitting balance. Pt able to stand from edge of bed with mod A x2 persons, then performed bed to chair transfer via RW and mod A x2 persons in prep for toilet transfer. Pt moves very slowly and requires cues for weight shifting and sequencing transfer at RW level, max cues to reach back for armrest of chair to sit with decreased carryover, pt with poorly controlled descent to sitting. 01/18/2025 11:00 AM Dianelys Benson * UE Dressing Question Answer Date of Assessment Author UE Dressing Interventions Anticipated, donning pullover shirt 01/18/2025 11:00 AM Dianelys Benson UE Dressing Where Assessed Chair level 01/18/2025 11:00 AM Dianelys Benson [place] Dressing Level of Assistance Minimum assistance 01/18/2025 11:00 AM Dianelys Benson * Lower Extremity Dressing Question Answer Date of Assessment Author LE Dressing Interventions Donning bilateral non-skid socks, pt reports difficulty with task since TKR last month 01/18/2025 11:00 AM Dianelys Benson LE Dressing Where Assessed Edge of bed 01/18/2025 11:00 AM Dianelys Benson Sock Level of Assistance Dependent 025 11:00 AM Dianelys Benson * Toileting Question Answer Date of Assessment Author Toileting Interventions Pt noted to have incontinent void on chux, dep A for clothing mgmt and hygiene at RW level 01/18/2025 11:00 AM Dianelys Benson Where Assessed Other (Comment) 01/18/2025 11:00 AM Dianelys Benson Toileting Level of Assistance Dependent 01/18/2025 11:00 AM Dianelys Benson * General Question Answer Date of Assessment Author Next PT Re-Assessment Date [id number] 01/18/2025 10: 24 AM Micheal Roque Date of PT Session [id number] 01/18/2025 10:24 AM Micheal Hilliard Patient/Family Goals Statement Return home. 01/18/2025 10:24 AM Katelyn Roque * Plan Question Answer Date of Assessment Author Predicted Duration of Therapy 2 weeks 01/18/2025 10:24 AM Micheal Roque Discharge Recommendation Acute rehab 025 10:24 AM Micheal Roque Equipment Recommended Defer to facility 01/19/20 25 10:24 AM Micheal Roque Planned PT Interventions Balance trainin g;Bed mobility training;Gait training;Transfer training;Postural re-education;ROM;Str engthening;Stretchin g;Functional Mobility 01/18/2025 10:24 AM Micheal Roque Therapy Frequency 2 - 5 times per week 10:24 AM Micheal Roque * PT Assessment Question Answer Date of Assessment Author Activity Limitations Inability to sit independently;Inability to ambulate independently;Inability to ambulate community distances;Inability to ambulate household distances;Inability to transfer independently 01/18/2025 10:24 AM Micheal Roque Participation Restrictions Self-care;Home management;Community leisure 01/18/2025 10:24 AM Micheal Roque History Profile 3 or more personal factors and/or comorbidities 01/18/2025 10:24 AM Micheal Roque Barriers to Discharge Comorbidities 01/18/2025 10:24 AM Micheal Roque Impairments Decreased endurance, ventilation, and/or gas exchange;Impaired gait dynamics/performance;Impa ired locomotion;Impaired motor planning;Impaired motor cordination/control;Impai red postural/trunk control;Impaired balance;Impaired functional mobility/transfers 01/18/2025 10:24 AM Micheal Roque Evaluation/Treatment Tolerance Patient limited by fatigue 01/18/2025 10:24 AM Micheal Roque Diagnosis Decreased functional mobility 01/18/2025 10:24 AM Micheal Roque Clinical Presentation Evolving clinical presentation with changing characteristics 01/18/2025 10:24 AM Micheal Roque Clinical Decision Making Moderate complexity 12/2024 10:24 AM Micheal Roque Rehab Potential Good, to achieve sta chantelle therapy goals 01/18/2025 10:24 AM Micheal Roque Activity Tolerance Tolerates 30 min act ivity with multiple rests 01/18/2025 10:24 AM Micheal Roque * HLM Score Question Answer Date of Assessment Author [facility] Daily Mobility Goal 2 01/19/2025 8:0 0 AM [facility] 2 01/19/2025 8: 00 AM Scar Shahid RN * Plan of Care Reviewed With Answer Date of Assessment Author patient 01/22/2025 8:51 PM Christina Lovell RN * Pressure Injury Prevention (PIP) Interventions Question Answer Date of Assessment Author Pressure Reducing Devices Specialty bed;Pillow 01/22/2025 8:18 PM Christina Lovell RN Bed Type Acute Care Bed 01/23/2025 8:00 AM Ariadne Nguyen RN * Behavioral Expectations Question Answer Date of Assessment Author Behavioral Expectations revi ewed with patient/guardian and family/partner in care? Yes 01/16/2025 5:00 AM Amari Garcia i, RN * Vital Signs Question Answer Date of Assessment Author BP 150/70 01/23/2025 11:25 AM EST Inte rface, Doc Flowsheet In Temp 98.1 01/23/2025 11:25 AM EST Inte rface, Doc Flowsheet In Pulse 66 01/23/2025 11:25 AM EST Inte rface, Doc Flowsheet In MAP (mmHg) 97 01/23/2025 11:25 AM EST Inte rface, Doc Flowsheet In * Oxygen Therapy Question Answer Date of Assessment Author SpO2 94 01/23/2025 11:25 AM EST Inte rface, Doc Flowsheet In * Patient Observation Question Answer Date of Assessment Author Patient Observations 3 rings delivered t o pacu by kingsley grewal rn. this rn placed rings in container at bedside with pt and will be sent with pt back to room. 01/16/2025 5:40 PM Felisa Forrest RN * Vitals Question Answer Date of Assessment Author Heart Rate Source Monitor 01/22/2025 8:18 PM Christina Lovell RN * Neurological Question Answer Date of Assessment Author Level of Consciousness Alert 8:00 AM Ariadne Horner RN Orientation Level Oriented X4 01/23/2025 8:0 0 AM Ariadne Horner RN Cognition Appropriate judgement;Appropriate safety awareness;Appropriate attention/concentration; Appropriate for developmental age;Follows commands 01/23/2025 8:00 AM Ariadne Horner RN Speech Clear 01/23/2025 8:00 AM Ariadne Horner RN L Pupil Reaction Brisk 01/23/2025 8:00 AM Ariadne Horner RN L Pupil Size (mm) 3 01/23/2025 8:0 0 AM Ariadne Horner RN R Pupil Reaction Brisk 01/23/2025 8:00 AM Ariadne Horner RN R Pupil Size (mm) 3 01/23/2025 8:0 0 AM Ariadne Horner RN LUE Motor Response Responds to commands 01/18/20 3:30 AM Cydney Garcia RN LUE Sensation Full sensation 01/23/2025 8:00 AM Ariadne Horner RN LLE Motor Response Responds to commands 01/18/20 25 3:30 AM Cydney Garcia RN LLE Sensation Full sensation 01/23/2025 8:00 AM Ariadne Horner RN RUE Motor Response Responds to commands 01/18/20 25 3:30 AM Cydney Garcia RN RUE Sensation Full sensation 01/23/2025 8:00 AM Ariadne Horner RN RLE Motor Response Responds to commands 01/18/20 3:30 AM Cydney Garcia RN RLE Sensation Full sensation 01/23/2025 8:00 AM EST Airadne Adame RN Neuro (WDL) WDL 01/23/2025 8:00 AM Ariadne Horner RN Swallow Able to swallow bruna ds and liquids without difficulty 01/19/2025 4:00 PM EST Scar Simpson RN R Hand Grasp Moderate 01/17/2025 3:30 AM Cydney Garcia RN L Hand Grasp Moderate 01/17/2025 3:30 AM Cydney Garcia RN R Foot Dorsiflexion Moderate 01/17/2025 3 :30 AM Cydney Garcia RN L Foot Dorsiflexion Moderate 01/17/2025 3 :30 AM Cydney Garcia RN R Pupil Shape Round 01/23/2025 8:00 AM Ariadne Horner RN L Pupil Shape Round 01/23/2025 8:00 AM Ariadne Horner RN RUE Motor Strength Normal power 01/17/2025 3: 30 AM Cydney Garcia RN LUE Motor Strength Normal power 01/17/2025 3: 30 AM Cydney Garcia RN RLE Motor Strength Can overcome resistance 01/17 3:30 AM Cydney Garcia RN LLE Motor Strength Can overcome resistance 01/17 3:30 AM Cydney Garcia RN Pupil Assessment Yes 01/23/2025 8:00 AM Ariadne Horner RN * Cardiac Question Answer Date of Assessment Author Cardiac Rhythm NSR 01/19/2025 4:00 PM Scar Christensen RN Ectopy Premature ventricula r contractions 01/23/2025 4:20 AM Christina Lovell RN Ectopy Frequency Rare 01/23/2025 4:20 AM Christina Lynn RN Cardiac Regularity Regular 01/23/2025 8:00 AM Ariadne Horner RN Cardiac (WDL) X 01/23/2025 8:00 AM Ariadne Giles RN Heart Sounds S1, S2 01/23/2025 8:00 AM Ariadne Horner RN Jugular Venous Distention (JVD) No 01/23/2025 8:00 AM Ariadne Horner RN * Associate Quality Engineer Question Answer Date of Assessment Author Telemetry Strip Reviewed Yes, I have reviewed and acknowledged. 01/22/2025 7:48 AM Felisa Sidhu RN Showroom Salesperson On No 01/23/2025 8:00 AM E Ariadne Nair RN Telemetry Audible Yes 01/23/2025 4:20 AM Christina Lovell RN Telemetry Alarms Set Yes 01/23/2025 4:20 AM Christina Bailon RN Telemetry Box Number pacu #[id number] 01/16/2025 5:17 PM E Felisa Avila RN Bedside Associate Quality Engineer On No 01/23/2025 8:00 AM Ariadne Horner RN Bedside Cardiac Audible Yes 01/23/2025 4:20 AM Christina Lovell RN Bedside Cardiac Alarms Set Yes 01/23/2025 4:20 AM Christina Lovell RN * Gastrointestinal Question Answer Date of Assessment Author Most Recent BM Date [id number] 01/22/2025 8:18 PM Christina Yeh RN Gastrointestinal ([facility]) WDL 01/23/2025 8:00 AM EST Ariadne Adame RN GI Symptoms Constipation 01/21/2025 4:00 PM David Alfaro RN * Peripheral Vascular Question Answer Date of Assessment Author Peripheral Vascular ([facility]) X 01/23/2025 8:00 AM EST Ariadne Adame RN RLE Edema +1 01/23/2025 8:00 AM Ariadne Horner RN LLE Edema +1 01/23/2025 8:00 AM EST Ariadne Adame RN Capillary Refill Less than/equal to 2 seconds (All extremities) 01/23/2025 8:00 AM Ariadne Horner RN Pulses R radial;L radial;R pedal;L pedal 01/23/2025 8:00 AM Ariadne Horner RN Cyanosis None 01/23/2025 8:00 AM Ariadne Horner RN Edema Right lower extremity;Left lower extremity 01/23/2025 8:00 AM Ariadne Horner RN PVS Additional Assessments RUE;RLE;LUE;LLE 01/16/2025 5:17 PM EST Felisa Hernandez RN * CHRISTIANNE Neurovascular Assessment Question Answer Date of Assessment Author RUPenny Capillary Refill Less than/equal to 2 seconds 01/16/2025 5:30 PM EST Felisa Hernandez RN RUE Color Appropriate for ethnicity 01/16/2025 5:30 PM EST Felisa Hernandez RN RUPenny Temperature/Moisture Warm;Dry 01/16/2025 5:30 PM Felisa Forrest RN R Radial Pulse +2 01/23/2025 8:00 AM EST Ariadne Jacques RN RUE Movement Decreased 01/17/2025 8:00 AM EST Ofelia Lechuga RN * LUPenny Neurovascular Assessment Question Answer Date of Assessment Author LUE Capillary Refill Less than/equal to 2 seconds 01/16/2025 5:30 PM EST Felisa Hernandez, RN LUE Color Appropriate for ethnicity 01/16/2025 5:30 PM EST Felisa Hernandez, RN LUE Temperature/Moisture Warm;Dry 01/16/2025 5:30 PM EST Felisa Hernandez , RN L Radial Pulse +2 01/23/2025 8:00 AM EST Ariadne Jacques, RN LUE Movement Decreased 01/17/2025 8:00 AM EST Ofelia Lechuga RN * RLE Neurovascular Assessment Question Answer Date of Assessment Author RLE Capillary Refill Less than/equal to 2 seconds 01/16/2025 5:30 PM EST Felisa Hernandez, RN RLE Color Appropriate for ethnicity 01/16/2025 5:30 PM EST Felisa Hernandez, RN RLE Temperature/Moisture Warm;Dry 01/16/2025 5:30 PM EST Felisa Hernandez , RN R Pedal Pulse +2 01/23/2025 8:00 AM EST Ariadne Hilton, RN RLE Movement Decreased 01/17/2025 8:00 AM EST Ofelia Lechuga RN * LLE Neurovascular Assessment Question Answer Date of Assessment Author LLE Capillary Refill Less than/equal to 2 seconds 01/16/2025 5:30 PM EST Felisa Hernandez, RN LLE Color Appropriate for ethnicity 01/16/2025 5:30 PM EST Felisa Hernandez, RN LLE Temperature/Moisture Warm;Dry 01/16/2025 5:30 PM EST Felisa Hernandez , RN L Pedal Pulse +2 01/23/2025 8:00 AM EST Ariadne Hilton, RN LLE Movement Decreased 01/17/2025 8:00 AM EST Ofelia Lechuga RN * Musculoskeletal Question Answer Date of Assessment Author RUE Weakness 01/23/2025 8:00 AM EST Ariadne Adame, RN RLE Limited movement 01/23/2025 8:00 AM EST Ariadne Flood, RN LUE Weakness 01/23/2025 8:00 AM EST Ariadne Adame RN LLE Limited movement 01/23/2025 8:00 AM EST Ariadne Flood RN Musculoskeletal (WDL) X 01/23/2025 8:00 AM EST Ariadne Adame RN * Urine Assessment Question Answer Date of Assessment Author Urine Color Yellow/straw 01/22/2025 8:18 PM EST Christina Contreras RN Urine Appearance Clear 01/22/2025 8:18 PM EST Christina Eubanks RN Urine Odor No odor 01/19/2025 4:00 PM EST Scar Katz RAI De Dios Urinary Incontinence Yes 01/22/2025 8:[address] Christina Fritz RN * Genitalia Question Answer Date of Assessment Author Female Genitalia Redness 01/23/2025 8:00 AM EST Ariadne Flood RN * Psychosocial Question Answer Date of Assessment Author Psychosocial (WDL) WDL 01/23/2025 8:00 AM EST Ariadne Adame RN * Intake Question Answer Date of Assessment Author [address] 01/22/2025 7:00 PM EST Felisa Whitlock RN * Output (mL) Question Answer Date of Assessment Author Urine 1450 01/21/2025 6:14 AM EST Silva Purvis * Díaz Fall Risk Question Answer Date of Assessment Author History of Falling, Immediat e or Within 3 Months 0 01/23/2025 8:00 AM Ariadne Horner RN Secondary Diagnosis 15 01/23/2025 8:00 AM Ariadne Palmer RN Ambulatory Aid 15 01/23/2025 8:00 AM Ariadne Nguyen RN Intravenous Therapy/Heparin Lock 20 01/24/20 25 8:00 AM Ariadne Horner RN Gait/Transferring 10 01/23/2025 8:00 AM Ariadne Horner RN Mental Status 0 01/23/2025 8:00 AM Ariadne Giles RN Díaz Fall Risk Score 60 01/23/2025 8:00 AM Ariadne Horner RN * Isael Scale Question Answer Date of Assessment Author Sensory Perceptions 3 01/22/2025 8:52 PM Christina Yeh RN Moisture 3 01/22/2025 8:52 PM Christina Fontana RN Activity 3 01/22/2025 8:52 PM Christina Fontana RN Mobility 3 01/22/2025 8:52 PM Christina Fontana RN Nutrition 3 01/22/2025 8:52 PM Christina Fontana RN Friction and Shear 2 01/22/2025 8:52 PM Christina Lovell RN Isael Scale Score 17 01/22/2025 8:52 PM Christina Lovell RN * BSA (Calculated - sq m) Answer Date of Assessment Author 2.07 01/22/2025 6:00 AM EST Nancy Garber * BMI (Calculated) Answer Date of Assessment Author 37.62 01/22/2025 6:00 AM EST Nancy Garber * Pain Location Answer Date of Assessment Author Back;Head;Neck 01/22/2025 9:43 PM Christina Lovell RN * Pain Orientation Answer Date of Assessment Author Mid;Lower 01/19/2025 9:17 PM Christina Lovell RN * Wound Follow-Up Question Answer Date of Assessment Author Last Date of Wound Treatment 20903 01/16/2025 12:30 PM Amanda Damon R N Wound Follow-Up Needed? 2 Week 01/16/2025 12:30 PM Amanda Damon RN Wound Comment Groin ICDY - CCAF 01/16/2025 12:30 PM Amanda Melendez RN Wound Previous Provider LK 01/16/2025 12:30 PM Amanda Damon RN Next Date For Wound Care Follow-up 33696 01/16/2025 12:30 PM Amanda Damon R N * Cardiac Question Answer Date of Assessment Author Cardiac (WDL) WD 01/17/2025 4:00 PM EST Ofelia Peter RN * Respiratory Question Answer Date of Assessment Author Respiratory (WD) WD 01/23/2025 8:00 AM EST Ariadne Adame RN * RLE ROM Assessment Question Answer Date of Assessment Author RLE Assessment WFL 01/18/2025 11:05 AM EST Dianelys Mancilla * LLE ROM Assessment Question Answer Date of Assessment Author LLPenny Assessment WFL 01/18/2025 11:05 AM EST Dianelys Mancilla * Vitals Question Answer Date of Assessment Author Ema src Oral 01/23/2025 11:25 AM EST Camila virk Benji Resp 16 01/23/2025 11:25 AM EST Camila virk, Benji Weight 3396.85 01/22/2025 6:00 AM EST GnAlice jara O2 Flow Rate (L/min) 1 01/23/2025 7:[address] Benji Gilbert BP Location Right arm 01/23/2025 11:25 AM EST Camila virk, Benji BP Method Automatic 01/23/2025 11:25 AM EST Camila virk Benji Pulse Oximetry Type Intermittent 01/23/2025 11:[address] Benji Gilbert Patient Activity During SpO2 Measurement At rest 01/23/2025 11:25 AM EST Benji Gilbert Oxygen Therapy None 01/23/2025 11:25 AM EST Valencia yBenji samuel O2 Delivery Method Nasal cannula 01/23/2025 7:39 AM ES Benji Hill Patient Position Lying 01/23/2025 11:25 AM EST Benji Gilbert * Point of Care Tests Question Answer Date of Assessment Author Provider Role Hospitalist 01/20/2025 1:27 AM Christina Cr RN Blood Glucose Meter 147 01/23/2025 8:18 AM Benji Osullivan Provider Name Kimberly Pfeiffer 01/20/2025 1:27 AM Christina Cr RN Method of Communication Secure message 01/20/2025 1:27 AM Christina Lovell RN Response See orders 01/20/2025 1:27 AM Christina Fontana RN Name of Nurse Notified of Blood Glucose Results (First and Last) Lew Adame RN 01/23/2025 8:18 AM Benji Monterroso Glucose Sample Retrieved From Finger stick 01/23/2025 8:18 AM EST Benji Gilbert * Vision - Basic Assessment Question Answer Date of Assessment Author Baseline Vision Glasses distance;Gla sses reading 01/18/2025 11:00 AM Dianelys Benson Tracking Intact 01/18/2025 11:00 AM Dianelys Guan Visual History Cataracts 01/18/2025 11:00 AM Dianelys Farmer * Percent Meals Eaten (%) Answer Date of Assessment Author 75 01/23/2025 8:30 AM Griselda Horner ea, RN * Patient Information Question Answer Date of Assessment Author Primary Caregiver Self 01/16/2025 10:20 AM Amanda Ford RN Accompanied by/Relationship spouse 01/16/2025 10:20 AM Amanda Ford RN Support System Immediate family 01/16/2025 10:20 AM Amanda Lopez RN Patient's Education Level High school 01/16/2025 10:2 0 AM Amanda Ford RN * Activities of Daily Living Question Answer Date of Assessment Author Functional Status Independent 01/16/2025 10:20 AM Amanda Ford RN Living Arrangements Spouse/Significant other 10:20 AM Amanda Ford RN Type of Residence Private residence;Mu lti Level 01/16/2025 10:20 AM Amanda Ford RN Smoker in the Home? Yes 01/16/2025 10:20 AM Amanda Thibodeaux RN * Income Information Question Answer Date of Assessment Author Income Source Retired 01/16/2025 10:20 AM Amanda Ford RN Income/Expense Information Income meets expenses 01/16/2025 10:20 AM Amanda Ford RN Current Resources Utilized None 01/16/2025 10:20 AM Amanda Ford RN * Advance Directives (For Healthcare) Question Answer Date of Assessment Author Advance Directive Patient has advance directive, copy not in chart 01/15/2025 9:00 PM Cydney Garcia RN Advance Directive not in Chart Copy requested from family 01/15/2025 9:00 PM Cydney Garcia RN Pre-existing DNR/DNI Order No 01/15/2025 9:00 PM Cydney Garcia R N Information Provided on Healthcare Directives No 01/15/2025 9:00 PM Cydney Garcia RN Patient Requests Assistance No 01/15/2025 9:00 PM Cydney Garcia R N Have you reviewed your Advance Directive and is it valid for this stay? No 01/15/2025 9:00 PM Amari Garcia i, RAI * Nutrition Screen Question Answer Date of Assessment Author Difficulty Chewing or Swallowing Yes (Comment) 01/15/2025 10:00 PM Cydney Garcia RN Burn, Pressure Injury, or Non-Healing Wound No 01/15/2025 10:00 PM Cydney Garcia RN Home Tube Feeding or Total Parenteral Nutrition (TPN) No 01/15/2025 10:00 PM Cydney Garcia RN Food allergy, Yarsani, or Cultural nutrition needs No 01/15/2025 10:00 PM Manjinder Garcia RN * Pain Descriptors Answer Date of Assessment Author Aching;Discomfort 01/22/2025 9:43 PM Christina Lovell RN * Pain Onset Answer Date of Assessment Author Gradual 01/22/2025 9:43 PM Christina Lovell RN * Pain Frequency Answer Date of Assessment Author Intermittent 01/22/2025 9:43 PM Christina Lovell RN * Trauma/Abuse Assessment Question Answer Date of Assessment Author Physical Abuse Denies 01/15/2025 10:00 PM Cydney Carlos RN Verbal Abuse Denies 01/15/2025 10:00 PM Cydney Franks RN * Values/Beliefs Question Answer Date of Assessment Author Cultural Requests During Hospitalization accepts blood products 01/16/2025 3:05 PM Kingsley Voss RN Spiritual Requests During Hospitalization denies 01/15/2025 10:00 PM Cydney Garcia RN Unable to assess Yes 01/15/2025 10:0 0 PM Cydney Garcia RN * Genitourinary Question Answer Date of Assessment Author Genitourinary (FABIANO) X 01/23/2025 8:00 AM Ariadne Palmer RN Genitourinary Symptoms Sanz catheter 01/23/2025 8:00 AM Ariadne Horner, RN * Neurological Question Answer Date of Assessment Author Neuro (FABIANO) WDL 01/17/2025 4:00 PM Ofelia Gomes RN * Prior Function Question Answer Date of Assessment Author Level of Mobility Ambulatory- community 01/19/20 10:24 AM Micheal Roque Mobility [place] Independent gait without device 01/18/2025 10:24 AM Micheal Roque History of Falls No 01/18/2025 10:2 4 AM Micheal Roque ADL Performance Needs assistance 01/18/2025 10:2 4 AM Micheal Roque Receives Help From Spouse 01/18/2025 10 :24 AM Micheal Roque Bathing Independent 01/18/2025 10:24 AM Micheal Roque Upper Body Dressing Independent 01/18/2025 1 0:24 AM Micheal Roque Lower Body Dressing Needs assist 01/18/2025 1 0:24 AM Micheal Roque Grooming Independent 01/18/2025 10:24 AM Micheal Roque Toileting Independent 01/18/2025 10:24 AM Micheal Roque Eating Independent 01/18/2025 10:24 AM Micheal Roque Home Management Skills Needs assist 10:24 AM Micheal Roque * RUE ROM Assessment Question Answer Date of Assessment Author CHRISTIANNE Assessment [facility] 01/18/2025 11:05 AM Dianelys Farmer * LUE ROM Assessment Question Answer Date of Assessment Author MAGALI Assessment [facility] 01/18/2025 11:05 AM Dianelys Farmer * Safe Environment Question Answer Date of Assessment Author 37-Pin Connection [Bed and Wall] Yes 01/23/2025 8:00 AM Ariadne Horner RN Arm Bands On ID 01/23/2025 8:00 AM Ariadne Horner RN Side Rails/Bed Safety 3/4 01/23/2025 8:00 AM Ariadne Horner RN NonSkid Footwear On;Patient in bed 01/23/2025 8:00 AM Ariadne Horner RN The Patient's Environment is Safe Yes 01/23/2025 8:00 AM Ariadne Horner RN Head of Bed Angle 30 01/23/2025 8:00 AM Ariadne Horner RN Bed Foot Left Rail Up State No 01/23/2025 8:00 AM Ariadne Horner RN Bed Head Right Rail Up State Yes 01/23/2025 8:00 AM Ariadne Horner RN Bed Head Left Rail Up State Yes 01/23/2025 8:00 AM Ariadne Horner RN Bed Foot Right Rail Up State Yes 01/23/2025 8:00 AM Ariadne Horner RN Bed Exit System Activate Status Yes 01/23/2025 8:00 AM Ariadne Horner RN Bed Brake State Yes 01/23/2025 8:00 AM Ariadne Davis RN Bed Low Height State Yes 01/23/2025 8:00 AM Ariadne Woods RN Chair Exit System Activate Status No 01/23/2025 4:18 AM Christina Lovell RN * Fall Risk Interventions Question Answer Date of Assessment Author Safety Promotion/Fall Prevention activity supervised;assistive device/personal items within reach;clutter-free environment maintained;fall prevention program maintained;lighting adjusted;mobility aid in reach;nonskid shoes/slippers when out of bed;room organization consistent;safety round/check completed;toileting scheduled 01/23/2025 8:00 AM Ariadne Horner RN Enhanced Safety Measures bed alarm set;room near unit station 01/23/2025 8:00 AM Ariadne Horner RN Toilet Every 2 Hours-In Advance of Need Yes 01/23/2025 8:00 AM Ariadne Horner RN Hourly Visual Checks Awake;In bed 01/23/2025 8:00 AM Ariadne Woods RN Room Door Open Deferred to decrease stimulation 01/23/2025 8:00 AM Ariadne Horner RN Gait Belt Used For Transfers Not applicable 01/23/2025 8:00 AM Ariadne Horner RN Fall Bundle Components Call light within reach;Personal belongings within reach;Overbed table within reach;Bed in lowest position;Bed wheels locked;Non-skid footwear on if up in chair or ambulating;Staff to remain with patient during toileting;Fall risk sign on door;Bed alarm on in zone 2 with proper weight settings;Staff to remain with patient during ambulation and tranfers 01/23/2025 8:00 AM Ariadne Horner RN * Mobility Question Answer Date of Assessment Author Range of Motion active ROM (range of motion) encouraged 01/23/2025 8:00 AM Ariadne Horner RN Activity Management activity adjusted pe r tolerance 01/23/2025 8:00 AM Ariadne Horner RN Activity Assistance Provided assistance, 2 people 01/22/2025 8:18 PM Christina Lovell RN Body Position turned;left 01/23/2025 8:00 AM Ariadne Giles RN VTE Prevention/Management bilateral;SCDs (sequential compression devices) on 01/23/2025 8:00 AM Ariadne Horner RN Head of Bed (HOB) Positioning HOB elevated 01/23/2025 8:00 AM Ariadne Horner RN Head of Bed Elevated Self regulated 01/23/2025 8:00 AM Ariadne Horner RN Heels/Feet Heels elevated off bed 01/23/2025 8:00 AM Ariadne Horner RN Positioning Frequency Able to turn self 01/23/2025 8:0 0 AM Ariadne Horner RN * Hygiene Question Answer Date of Assessment Author Perineal Care absorbent pad 01/19/2025 8:00 AM Scar Christensen RN Bathing/Skin Care patient refused;education provided 01/22/2025 10:17 AM Jayy Mora Oral Care (Yes/No) Yes 01/22/2025 7:48 AM Felisa Sidhu RN CHG (Chlorhexidine Gluconate) Hygiene Wipes 01/22/2025 7:31 AM Felisa Sidhu RN * Precautions Question Answer Date of Assessment Author Isolation Precautions protective;precaut ions maintained 01/23/2025 8:00 AM Ariadne Horner RN Precautions Fall risk;Environmen gautam surveillance 01/23/2025 8:00 AM Ariadne Horner RN * Family/Significant Other Communication Question Answer Date of Assessment Author Family/Significant Other Update Updated 2:52 PM Kingsley Voss RN * Comfort and Environment Interventions Question Answer Date of Assessment Author Comfort Repositioned 01/23/2025 8:00 AM Ariadne Horner RN * Safety Equipment at Bedside Question Answer Date of Assessment Author Standard Bedside Safety Ambu bags in hallway;Suction available, setup and working;Oxygen available and working 01/23/2025 8:00 AM Ariadne Horner RN Additional Bedside Safety Bed in locked and low position;Clutter free environment 01/23/2025 8:00 AM Ariadne Horner RN * IBW/kg (Calculated) Male Answer Date of Assessment Author 56.9 01/16/2025 3:05 PM Juan Voss RN * IBW/kg (Calculated) Female Answer Date of Assessment Author 52.4 01/16/2025 3:05 PM Juan Voss RN * Consults Question Answer Date of Assessment Author Integrative Medicine Consult Needed No 01/15 10:00 PM Cydney Garcia RN Pastoral Care Consult Needed No 01/15/2025 1 0:00 PM Cydney Garcia RN Social Services Consult Needed No 01/15/2025 10:00 PM Cydney Garcia RN * Therapy Consults Question Answer Date of Assessment Author PT Evaluation Needed 1 01/15/2025 10:00 PM Cydney Garcia RN OT Evaluation Needed 2 01/15/2025 10:00 PM Cydney Garcia RN [employer] Evaluation Needed 2 01/15/2025 10:00 PM Cydney Garcia RN * Assistive Devices Question Answer Date of Assessment Author Assistive Devices Walker 01/15/2025 10:00 PM Cydney Garcia RN * PAINAD (Pain Assessment in Advanced Dementia) Question Answer Date of Assessment Author Pain Management Interventions declines 01/23/2025 7:30 AM Ariadne Horner RN * Provider Notification Question Answer Date of Assessment Author Reason for Communication Review case 01/19/2025 3:10 AM Christina Lovell RN Notification Time 5220 01/20/2025 1:27 AM Christina Lovell RN * Intraop Skin Assessment Question Answer Date of Assessment Author Wound Description contact dermatitis. See previous comments, avatar, and media images 01/16/2025 3:57 PM Nagi Lomax RN Presence of skin impairment on admission to OR? Yes 01/16/2025 3:57 PM Nagi Lomax RN Area of skin breakdown Other (see comment) 01/16 3:57 PM Nagi Lomax RN Pressure relief dressing in place? No 01/16/2025 3:57 PM Nagi Lomax RN Reason pressure relief dressing not applied will be placed prior to leaving the OR 01/16/2025 3:57 PM Nagi Lomax RN Pressure Reducing Devices Preventative foam dressing 01/16/2025 3:57 PM Nagi Lomax RN * Hourly Rounding Question Answer Date of Assessment Author Hourly Rounding Complete Per Guideline Yes 01/23/2025 9:00 AM Ariadne Horner RN * Patient Violence Risk Assessment Question Answer Date of Assessment Author History of Violence: In the past 12 hours has the PATIENT exhibited any of the following? None 01/23/2025 8:00 AM Ariadne Horner RN Potential for Violence: In the past 12 hours has the PATIENT exhibited any of the following? None 01/23/2025 8:00 AM Ariadne Horner RN Risk No identified risk 01/23/2025 8:00 AM Ariadne Horner RN History of Violence: In the past 12 hours has a PARTNER IN CARE of the patient exhibited any of the following? None 01/23/2025 8:00 AM Ariadne Horner RN * Malnutrition Identification Question Answer Date of Assessment Author Malnutrition Identified No 01/16/2025 1:[address] * Physical Exam Performed On Question Answer Date of Assessment Author Temples (muscles) None 01/16/2025 1:0 [address] Clavicle (muscle) None 01/16/2025 1:0 [address] Shoulder (muscle) None 01/16/2025 1:0 [address] Interosseous (muscle) None 01/16/2025 1:00 PM EST [address]ani Leija RD Orbital (fat) None 01/16/2025 1:[address] Triceps (fat) None 01/16/2025 1:[address] Energy Intake Decreased appetite f or the past 1-2 weeks while admitted at OSH, previously eating normally 01/16/2025 1:[address] Weight Loss Weight gain unintentionally - used to weigh ~180#, now believes she's weighing ~200# 01/16/2025 1:[address] * Restart Vitals Timer Answer Date of Assessment Author Yes 01/23/2025 11:25 AM Gurpreet Monterroso * Height and Weight Question Answer Date of Assessment Author Height 63 01/16/2025 3:05 PM Kingsley Pugh RN Height Method Stated 01/16/2025 3:05 PM Kingsley Lewis RN Weight Method Stated 01/16/2025 3:05 PM Kingsley Lewis RN IBW/kg (Calculated) 52.4 01/16/2025 3:05 PM Kingsley Herrera RN * Neurological Question Answer Date of Assessment Author Neuro Additional Assessments Enhanced Neuro Checks 01/16/2025 5:30 PM Felisa Forrest RN Neuro ([facility]) X 01/16/2025 5:30 PM Felisa Forrest RN Hand Grasp/Motor Function/Sensation Assessment Grasp;Dorsiflexion;M otor response;Sensation;M otor strength 01/16/2025 5:30 PM Felisa Forrest RN * HEENT Question Answer Date of Assessment Author HEENT (Robel) X 01/16/2025 5:17 PM Felisa Forrest RN * Cardiac Question Answer Date of Assessment Author Cardiac (FABIANO) WDL 01/16/2025 5:17 PM Felisa Forrest RN * Gastrointestinal Question Answer Date of Assessment Author Gastrointestinal (FABIANO) WDL 01/16/2025 5:17 PM Felisa Forrest RN * Genitourinary Question Answer Date of Assessment Author Genitourinary (WDL) X 01/16/2025 5:17 PM Felisa Kapadia RN * Psychosocial Question Answer Date of Assessment Author Psychosocial (WD) WDL 01/16/2025 5:17 PM Felisa Forrest RN * Pain Assessment Question Answer Date of Assessment Author Pain Assessment 0-10 (Adult DVPRS/Pe ds 0-10) 01/16/2025 6:00 PM Felisa Forrest RN * STOP-Bang Questionnaire Question Answer Date of Assessment Author Do you snore loudly? 0 01/15/2025 10:00 PM Cydney Garcia RN Do you often feel tired or f atigued after your sleep? 0 01/15/2025 10:00 PM Cydney Garcia RN Has anyone ever observed you stop breathing in your sleep? 0 01/15/2025 10:00 PM Manjinder Garcia RN Do you have or are you being treated for high blood pressure? 1 01/15/2025 10:00 PM Cydney Jung RN Is BMI greater than 35 kg/m2? 0=No 01/15/2025 10:00 PM Cydney Garcia RN Age older than 50 years old? 1=Yes 01/15/2025 1 0:00 PM Cydney Garcia RN Is your neck circumference g reater than 17 inches (Male) or 16 inches (Female)? 0 01/15/2025 10:00 PM Cydney Garcia RN Gender - Male 0=No 01/15/2025 10:00 PM Cydney Jung RN STOP-Bang Total Score 2 01/15/2025 10:00 PM Cydney Garcia RN Recent BMI (Calculated) 33 01/15/2025 10:00 PM Cydney Garcia RN * Feeding Question Answer Date of Assessment Author Feeding Interventions Anticipated, to perform self-feeding tasks. Pt is on regular, consistent CHO diet. 01/18/2025 11:00 AM Dianelys Benson Feeding Level of Assistance Setup 01/18/2025 11:00 AM Dianelys Benson Feeding Where Assessed Chair Level 11:00 AM Dianelys Benson * Grooming Question Answer Date of Assessment Author Grooming Interventions To brush hair, wa sh face, complete oral care at seated level with min A needed to brush posterior aspect of hair 01/18/2025 11:00 AM Dianelys Benson Grooming Where Assessed Chair level 01/19/20 11:00 AM Dianelys Benson Grooming Level of Assistance Minimum assistance;Minimal verbal cues 01/18/2025 11:00 AM Dianelys Benson * Dynamic Standing Balance Question Answer Date of Assessment Author Dynamic Standing Level of Assistance Moderate assistance 01/18/2025 11:05 AM Dianelys Benson Dynamic Standing-Balance Support Right upper extremity support;Left upper extremity support 01/18/2025 11:05 AM Dianelys Benson Dynamic Standing-Balance Lateral weight shifts;Anterior/Meat Wrapper ior weight shifts 01/18/2025 11:05 AM Dianelys Benson * General Question Answer Date of Assessment Author Next OT Reassessment [id number] 01/18/2025 11:05 AM Dianelys Benson Patient/Family Goals Statement Pt desires to return home when able to. 01/18/2025 11:05 AM Dianelys Benson Date of OT Session [id number] 01/18/2025 11 :05 AM Dianelys Benson * Home Living Question Answer Date of Assessment Author Home Type House 01/18/2025 10:24 AM Micheal Santos Bathroom: Tub/Shower Walk-in shower;Grab bars 01/18/2025 10:24 AM Micheal Rqoue Bathroom: Toilet Standard 01/18/2025 10:24 AM Micheal Roque Home Living Comments Pt reports recent R TKR on 12/14/24. Has mostly been at home since then, when going to the grocery store relies on shopping cart for support. 01/18/2025 10:24 AM Micheal Roque Home Layout Two level;Able to live on one level with bedroom/bathroom 01/18/2025 10:24 AM Micheal Roque Home Adaptive Equipment Rolling walker;Rollator;Cane; shower chair 01/18/2025 10:24 AM Micheal Roque Lives With Spouse 01/18/2025 10:24 AM Micheal Santos * Date of PT Session Question Answer Date of Assessment Author PT Initials NAVEEN/ALLEN 01/18/2025 10:24 AM Micheal Santos * Pneumococcal Vaccine Screen - Year Round Question Answer Date of Assessment Author Have you ever had a pneumoni a vaccination? Yes 01/16/2025 5:00 AM Cydney Garcia R N * Influenza Vaccine Screen - November Through June Question Answer Date of Assessment Author Have you had an influenza va ccine this season? Yes 01/16/2025 5:00 AM Cydney Garcia R N * Eating Question Answer Date of Assessment Author Assistance Needed Set-up / clean-up 01/18/2025 11:05 A Dianelys Maki CARE Score - Eating 5 01/18/2025 11:05 AM Dianelys Rodney * Oral Hygiene Question Answer Date of Assessment Author Assistance Needed Set-up / clean-up 01/18/2025 11:05 A M Marielos Bensonly CARE Score - Oral Hygiene 5 01/18/2025 11:05 AM Marielos Benson ly * Toileting Hygiene Question Answer Date of Assessment Author Physical Assistance Level Total assistance 01/18/2025 11:05 AM Marielos Bensonly CARE Score - Toileting Hygiene 1 01/18/2025 11:05 AM Marielos Benson ly * Shower/Bathe Self Question Answer Date of Assessment Author Physical Assistance Level 51%-75% 01/18/2025 11:0 5 AM Aspen Bensonberly CARE Score - Shower/Bathe Self 2 01/18/2025 11:05 AM Aspen Bensonberly * Upper Body Dressing Question Answer Date of Assessment Author Physical Assistance Level 25% or less 01/18/2025 11:0 5 AM Aspen Bensonberly CARE Score - Upper Body Dressing 3 01/18/2025 11:05 AM Marielos Benson ly * Lower Body Dressing Question Answer Date of Assessment Author Physical Assistance Level Total assistance 01/18/2025 11:05 AM Dianelys Benson CARE Score - Lower Body Dressing 1 01/18/2025 11:05 AM Marielos Benson * Putting On/Taking Off Footwear Question Answer Date of Assessment Author Physical Assistance Level Total assistance 01/18/2025 11:05 AM Dianelys Benson CARE Score - Putting On/Taking Off Footwear 1 01/18/2025 11:05 AM Aspen Benson * Calculated C-SSRS Risk Score (Lifetime/Recent) Answer Date of Assessment Author No Risk Indicated 01/23/2025 8:00 AM Ariadne Horner RN * Augusto Coma Scale Question Answer Date of Assessment Author Best Eye Response Spontaneous 01/23/2025 8:00 AM Ariadne Horner RN Best Verbal Response Oriented 01/23/2025 8:00 AM E Ariadne Nair RN Best Motor Response Follows commands 01/23/2025 8:00 A M Ariadne Horner RN Augusto Coma Scale Score 15 01/23/2025 8:00 AM Ariadne Horner RN * Enhanced Neuro Checks Question Answer Date of Assessment Author Facial Droop No 01/17/2025 3:30 AM EST Jacks on, Cydney, RN Gaze Normal 01/17/2025 3:30 AM EST Jacks on, Cydney, RN Motor - LUE No drift 01/17/2025 3:30 AM EST Jacks on, Cydney, RN Sensation (responds to stimuli) - LUE Yes 01/17/2025 3:30 AM EST Rocco, Cydney, R N Motor - RUE No drift 01/17/2025 3:30 AM EST Jacks on, Cydney, RN Sensation (responds to stimuli) - RUE Yes 01/17/2025 3:30 AM EST Rocco, Cydney, R N Motor - LLE No drift 01/17/2025 3:30 AM EST Jacks on, Cydney, RN Sensation (responds to stimuli) - LLE Yes 01/17/2025 3:30 AM EST Rocco, Cydney, R N Motor - RLE No drift 01/17/2025 3:30 AM EST Jacks on, Cydney, RN Sensation (responds to stimuli) - RLE Yes 01/17/2025 3:30 AM EST Cydney Valiente R N Limb Ataxia No Ataxia 01/17/2025 3:30 AM EST Cydney Goff RN Visual Teague No visual loss 01/17/2025 3:30 AM EST Cydney Wray RN Speech/Language Clear 01/17/2025 3:30 AM EST Cydney Wray RN * Weight in (lb) to have BMI = 25 Answer Date of Assessment Author 140.8 01/16/2025 3:05 PM Juan Voss RN * BMI (Calculated) Answer Date of Assessment Author 37.7 01/22/2025 6:00 AM Nancy Kuhn h * Percent Excess Weight Loss Answer Date of Assessment Author 0 01/16/2025 3:05 PM Juan Voss RN * Weight Change Since Preop Answer Date of Assessment Author 96.3 01/22/2025 6:00 AM Nancy Kuhn h * Initial Excess Weight Answer Date of Assessment Author -52.16 01/16/2025 3:05 PM Juan Voss RN * IBW in kg (Bariatric) Answer Date of Assessment Author 52.16 01/16/2025 3:05 PM Juan Voss RN * IBW in lb (Bariatric) Answer Date of Assessment Author 115 01/16/2025 3:05 PM Juan Voss RN * Weight Change Since Last Visit Answer Date of Assessment Author -0.32 01/22/2025 6:00 AM Nancy Kuhn h * Percent of IBW Answer Date of Assessment Author 185.22 01/16/2025 3:05 PM Juan Voss RN * EBW (kg) Answer Date of Assessment Author 44.43 01/16/2025 3:05 PM Juan Voss RN * EBW (lb) Answer Date of Assessment Author 98 01/16/2025 3:05 PM Juan Voss RN * Difference in Weight Since Last Visit Answer Date of Assessment Author -0.32 01/22/2025 6:00 AM Nancy Kuhn h * Housing Circumstances-Z Codes Question Answer Date of Assessment Author Housing Circumstances (select all that apply) None Applicable 01/16/2025 10:20 AM Amanda Ford RN * Pain Type Answer Date of Assessment Author Acute pain 01/22/2025 9:43 PM Christina Lovell RN * Temp (in Celsius) for EAGLE IV Answer Date of Assessment Author 36.7 01/23/2025 11:25 AM ZULY Gilbert, N oah * Pain Assessment Question Answer Date of Assessment Author Patient's Stated Pain Goal 4 01/23/2025 7:30 AM Ariadne Horner RN Patient is asleep Yes, assume pain is decreased 01/22/2025 10:43 PM Christina Lovell RN Clinical Progression Rapidly improving 01/23/2025 7:30 AM Ariadne Horner RN Pain Score 0 01/23/2025 8:30 AM Ariadne Horner RN Pain Assessment 0-10 (Adult DVPRS/Peds 0-10) 01/23/2025 8:30 AM Ariadne Horner RN * FLACC (Face, Legs, Activity, Crying, Consolability) Question Answer Date of Assessment Author Pain Rating: FLACC (Rest) - Face 0 01/17/20 5:17 PM Felisa Forrest RN Pain Rating: FLACC (Rest) - Legs 0 01/17/20 5:17 PM Felisa Forrest RN Pain Rating: FLACC (Rest) - Activity 0 01/16/2025 5:17 PM Felisa Forrest RN Pain Rating: FLACC (Rest) - Cry 0 5:17 PM Felisa Forrest RN Pain Rating: FLACC (Rest) - Consolability 0 01/16/2025 5:17 PM Felisa Forrest RN Pain Rating: FLACC (Activity ) - Face 0 01/16/2025 5:17 PM Felisa Forrest RN Pain Rating: FLACC (Activity ) - Legs 0 01/16/2025 5:17 PM Felisa Forrest RN Pain Rating: FLACC (Activity) 0 01/16/2025 5:17 PM Felisa Forrest RN Pain Rating: FLACC (Activity ) - Cry 0 01/16/2025 5:17 PM Felisa Forrest RN Pain Rating: FLACC (Activity ) - Consolability 0 01/16/2025 5:17 PM Felisa Forrest RN * Score: FLACC (Rest) Answer Date of Assessment Author 0 01/16/2025 5:17 PM Sylvia Forrest RN * Score: FLACC (Activity) Answer Date of Assessment Author 0 01/16/2025 5:17 PM Sylvia Forrest RN * Nutrition Question Answer Date of Assessment Author Fluid Restrictions none 01/21/2025 7:00 AM EST Alysa Quinn Diet Type Regular;Consistent C arb 2 01/23/2025 8:00 AM Ariadne Horner RN Feeding Able to feed self 01/23/2025 8:00 AM Ariadne Horner RN Appetite Good 01/23/2025 8:00 AM Ariadne Horner RN * 4-Eyes Skin Assessment Question Answer Date of Assessment Author 4 Eyes Skin Assessment Completed Yes 01/16/2025 1:05 AM Cydney Garcia R N Manual Dual Sign Off 2nd RAI Rm RN 01/16/2025 1: 05 AM Cydney Garcia RN * IBW/kg (Calculated) Answer Date of Assessment Author 52.4 01/16/2025 3:05 PM Juan Voss RN * Adult Low Range Vt 6mL/kg Answer Date of Assessment Author 314.4 01/16/2025 3:05 PM Juan Voss RN * Adult Moderate Range Vt 8mL/kg Answer Date of Assessment Author 419.2 01/16/2025 3:05 PM Juan Voss RN * Adult High Range Vt 10mL/kg Answer Date of Assessment Author 524 01/16/2025 3:05 PM Juan Voss RN * Respiratory Interventions Question Answer Date of Assessment Author Respiratory Interventions Incentive Spir ometer (IS) 01/19/2025 11:38 AM Scar Shahid RN * Patient Belongings at Bedside Question Answer Date of Assessment Author Vision - Corrective Lenses Glasses 01/15/2025 10: 00 PM Cydney Garcia RN Jewelry Ring 01/16/2025 3:04 PM Kingsley Pugh RN Belongings at Bedside Jewelry 01/16/2025 3:04 PM Kingsley Voss RN * Patient Belongings Sent Home Question Answer Date of Assessment Author Belongings Sent Home None 01/15/2025 10:00 PM Cydney Garcia RN Patient Electronics Cell phone 01/15/2025 10:00 PM Cydney Espinoza RN * Patient Belongings Sent to Safe/Security Question Answer Date of Assessment Author Belongings Sent to Safe/Security None 01/16/20 10:00 PM Cydney Garcia RN * Integumentary Question Answer Date of Assessment Author Skin Color Pale 01/23/2025 8:00 AM Ariadne Horner RN Skin Condition/Temp Warm;Dry 01/23/2025 8:00 AM Ariadne Palmer RN Skin Integrity Excoriation;Bruising 01/23/2025 8:00 AM Ariadne Horner RN Skin Turgor Non-tenting 01/21/2025 4:00 PM David Alfaro RN Bruising Characteristics Scattered 01/23/2025 8:00 AM Ariadne Horner RN Integumentary (WDL) X 01/23/2025 8:00 AM Ariadne Palmer RN * Confusion Assessment Method-ICU (CAM-ICU/PCAM-ICU) Question Answer Date of Assessment Author Feature 1: Acute Onset or Fluctuating Course Negative 01/23/2025 8:00 AM Ariadne Horner RN Feature 3: Altered Level of Consciousness Negative 01/23/2025 8:00 AM Ariadne Horner RN * Overall CAM-ICU/PCAM-ICU Answer Date of Assessment Author Negative 01/23/2025 8:00 AM Griselda Horner ea, RN * Sedation Scales Question Answer Date of Assessment Author Sedation Scale Used Patiño Agitation Sedation Scale 01/23/2025 8:00 AM Ariadne Horner RN RASS 0 01/23/2025 8:00 AM Ariadne Horner RN * Urine Output/Assessment Question Answer Date of Assessment Author Unmeasured Urine Occurrence 1 01/19/2025 9: 02 AM Scar Shahid RN Bladder Scan Volume (mL) 764 01/20/2025 1:08 AM Everton Corea RN Post Void Cath Residual (mL) 0 01/19/2025 2:00 PM Scar Shahid RN Intermittent/Straight Cath (mL) 850 01/19/2025 2:00 PM Scar Shahid RN Urine Amount Medium 01/19/2025 9:02 AM EST Scar Katz RN Additional Urine Volume Rows Bladder scan 01/20/2025 1:08 AM Christina Lovell RN * Stool Output/Assessment Question Answer Date of Assessment Author Unmeasured Stool Occurrence (hourly total) 1 01/22/2025 7:48 AM Felisa Sidhu RN Stool Color Brown 01/21/2025 5:30 PM David Alfaro RN Stool Amount Large 01/21/2025 5:30 PM David Alfaro RN Stool Appearance Formed 01/21/2025 5:30 PM David Pond RN Sanz [facility] Castile Wipes Used Yes 01/23/2025 8:00 AM Ariadne Horner RN Bowel Incontinence No 01/22/2025 7:48 AM Felisa Sidhu RN * Fall Risk Calculated Score Answer Date of Assessment Author Díaz 01/23/2025 8:00 AM Griselda Horner ea, RN * Patient Specific Goals Question Answer Date of Assessment Author Patient/Family-Specific Goals (Include Timeframe) Pt will have all questions surrounding discharge answered by the end of this shift 01/23/2025 8:00 AM Ariadne Horner RN Individualized Care Needs Education 2024 8:00 AM Ariadne Horner RN Anxieties, Fears or Concerns Ptis ready for discharge 01/23/2025 8:00 AM Ariadne Horner RN * Delirium Assessment Question Answer Date of Assessment Author Delirium Prevention & Management Yes 01/23/2025 8:00 AM Ariadne Horner RN Delirium Prevention & Management: Early Mobility Educate patient and family about the benfits of early mobility in the hospital 01/23/2025 8:00 AM Ariadne Horner RN Delirium Prevention & Management: Cognitive Engagement Delirium prevention education provided to patient and family 01/23/2025 8:00 AM Ariadne Horner RN Delirium Prevention & Management: Optimize Sleep/Wake Cycles Educate patient and family about optimizing sleep 01/23/2025 8:00 AM Ariadne Horner RN Acute Onset and Fluctuating Course (1A) No 01/23/2025 8:00 AM Ariadne Horner RN Delirium Scale Used Confusion Assessment Method ICU/ PCAM ICU 01/23/2025 8:00 AM Ariadne Horner RN * Assume Pain is Present Answer Date of Assessment Author No 01/20/2025 8:18 PM Christina Lovell RN * Unplanned Readmission Scores Question Answer Date of Assessment Author Unplanned Readmission Score 11.81 01/23/2025 12 :00 PM Sang Pemberton * Malnutrition Screening Tool (MST) Question Answer Date of Assessment Author Have you recently lost weigh t without trying? 0 01/15/2025 10:00 PM Cydney Garcia RN Have you been eating poorly because of a decreased appetite? 1 01/15/2025 10:00 PM Manjinder Garcia RN * Weight Loss Score Answer Date of Assessment Author 0 01/15/2025 10:00 PM Cydney Garcia RN * Malnutrition Score Answer Date of Assessment Author 1 01/15/2025 10:00 PM Cydney Garcia RN * Lincoln Coma Scale Numeric Answer Date of Assessment Author 15 01/23/2025 8:00 AM Griselda Horner ea, RN * Elevate heels task - custom formula Answer Date of Assessment Author 1 01/23/2025 8:00 AM Griselda Horner ea, RN * Vitals Timer Question Answer Date of Assessment Author Restart Vitals Timer Yes 01/23/2025 11:25 AM EST Benji Gilbert * Respiratory Assessment Question Answer Date of Assessment Author Artificial airway present Yes 01/16/2025 5:17 PM Felisa Forrest RN Respiratory Pattern Regular 01/16/2025 5 :17 PM Felisa Forrest RN Chest Assessment Symmetrical;Chest expansion symmetrical 01/16/2025 5:17 PM Felisa Forrest, RN Airway LDA Oral pharyngeal airway 5:17 PM Felisa Forrest, RN Respiratory ([facility]) WDL 01/16/2025 5:3 0 PM Felisa Forrest, RN * Integumentary Question Answer Date of Assessment Author Integumentary (WDL) X 01/16/2025 5:17 PM ES Felisa Oconnor, RN * Modified Neeta Question Answer Date of Assessment Author Activity 2 01/16/2025 6:00 PM Felisa Forrest, RN Respiration 2 01/16/2025 6:00 PM Felisa Forrest, RN Hemodynamic Stability 2 01/16/2025 6:00 PM Felisa Forrest, RN Consciousness 2 01/16/2025 6:00 PM Felisa Forrest, RN Oxygen Saturation 1 01/16/2025 6:00 PM Felisa Forrest, RN Modified Neeta Score 12 01/16/2025 6:00 PM Felisa Forrest, RN Pain 1 01/16/2025 6:00 PM Felisa Forrest, RN Emetic Symptoms 2 01/16/2025 6:[address], RN * Micheal Index Question Answer Date of Assessment Author Feeding 5 01/18/2025 11:05 AM EST Swetha more, Dianelys Bathing 0 01/18/2025 11:05 AM EST Swetha more, Dianelys Grooming 5 01/18/2025 11:05 AM EST Swetha more, Dianelys Dressing 5 01/18/2025 11:05 AM EST Swetha more, Dianelys Bowels 5 01/18/2025 11:05 AM EST Swetha more, Dianelys Bladder 0 01/18/2025 11:05 AM EST Swetha more, Dianelys Toilet Use 0 01/18/2025 11:05 AM EST Swetha more, Dianelys Transfers (Bed to Chair and Back) 5 025 11:05 AM EST [place], Dianelys Mobility (on Level Surfaces) 0 01/18/2025 1 1:05 AM Dianelys Benson Stairs 0 01/18/2025 11:05 AM Dianelys Guan Total Score 25 01/18/2025 11:05 AM Dianelys Guan * Standardized Tests Question Answer Date of Assessment Author Standardized Tests Micheal Index 01/18/2025 11:[address] MendozaDianelys * Rocco/Debra Scale Question Answer Date of Assessment Author Age (years) 1 01/23/2025 8:00 AM Ariadne Horner RN Hemodynamics 4 01/23/2025 8:00 AM Ariadne Horner RN Weight/Tissue Viability 3 01/23/2025 8:00 A M Ariadne Horner RN Respiration 4 01/23/2025 8:00 AM Ariadne Horner RN Past Medical History 2 01/23/2025 8:00 AM Ariadne Woods RN Oxygen Requirments 4 01/23/2025 8:00 AM Ariadne Horner RN General Skin Condition 2 01/23/2025 8:00 AM Ariadne Horner RN Nutrition 4 01/23/2025 8:00 AM Ariadne Horner RN Medical Condition 4 01/23/2025 8:00 AM Ariadne Horner RN Incontinence 4 01/23/2025 8:00 AM Ariadne Horner RN Mobility 3 01/23/2025 8:00 AM Ariadne Horner RN Hygiene 1 01/23/2025 8:00 AM Ariadne Horner RN Deduction if patient has bee n in surgery or transported to CT, MRI, or HBOT during last 48 hours 0 01/23/2025 8:00 AM Ariadne Horner RN Deduction if patient has req uired blood or clotting factors during last 24 hours 0 01/23/2025 8:00 AM Ariadne Horner RN Deduction if patient has hyp othermia of 35 C or under (core temp) 0 01/23/2025 8:00 AM Ariadne Horner RN Jackson/Debra Pressure Risk Score 36 2024 8:00 AM Ariadne Horner RN * Elopement Risk Screen Question Answer Date of Assessment Author Does the patient exhibit any of the following behaviors? No 01/23/2025 8:00 AM Ariadne Horner R N Does the patient have a cour t ordered legal guardian? No 01/23/2025 8:00 AM Ariadne Horner, RAI * Manual Muscle Testing - LLE Question Answer Date of Assessment Author Manual Muscle Testing [facility] 01/18/2025 11:05 AM Dianelys Benson * Manual Muscle Testing - RUE Question Answer Date of Assessment Author Manual Muscle Testing - RUE [facility] 01/18/2025 11 :05 AM Dianelys Benson * Manual Muscle Testing - LUE Question Answer Date of Assessment Author Manual Muscle Testing - LUE [facility] 01/18/2025 11 :05 AM Dianelys Benson * Dynamic Sitting Balance Question Answer Date of Assessment Author Level of Assistance Moderate assistance 01/19/20 11:05 AM Dianelys Benson Dynamic Sitting-Balance Support Right upper extremity support;Left upper extremity support;Feet unsupported 01/18/2025 11:05 AM Dianelys Benson Dynamic Sitting-Balance Trunk control activities 01/18/2025 11:05 AM Dianelys Benson * Cognition Question Answer Date of Assessment Author Mood/Behavior Alert 01/18/2025 11:00 AM Dianelys Benson Orientation Level Oriented X4 01/18/2025 11: 00 AM Dianelys Benson Overall Cognitive Status WFL 025 11:00 AM Dianelys Benson Arousal/Alertness Delayed responses to stimuli 01/18/2025 11:00 AM Dianelys Benson Method of Communication Verbal 01/19/20 25 11:00 AM Dianelys Benson Single Step Commands Consistently;With increased time 01/18/2025 11:00 AM Dianelys Benson Multi-Step Commands Consistently;With increased time;With repetition 01/18/2025 11:00 AM Dianelys Benson * Static Sitting Balance Question Answer Date of Assessment Author Static Sitting-Level of Assistance Minimum assistance 01/18/2025 11:05 AM Dianelys Benson Static Sitting-Balance Support Right upper extremity support;Left upper extremity support;Feet unsupported 01/18/2025 11:05 AM Dianelys Benson * Static Standing Balance Question Answer Date of Assessment Author Static Standing-Level of Assistance Moderate assistance 01/18/2025 11:05 AM Dianelys Benson Static Standing-Balance Support Right upper extremity support;Left upper extremity support 01/18/2025 11:05 AM Dianelys Benson * OT Assessment Question Answer Date of Assessment Author OT Assessment Results Impaired ADL performance;Impaired IADL performance;Impaired judgment during ADL;Decreased endurance/ventilation/ga s exchange;Impaired executive function;Impaired functional mobility;Decreased gross motor control/coordination;Imp aired postural/trunk control;Impaired balance 01/18/2025 11:05 AM Dianelys Benson Occupational Profile Expanded review of medical/therapy records and additional review of physical, cognitive, or psychosocial history 01/18/2025 11:05 AM Dianelys Benson Clinical Decision Making Moderate 01/18/2025 11:05 AM Dianelys Benson Barriers to Discharge Comorbidities 01/18/2025 11:05 AM Dianelys Benson Overall Eval complexity Moderate 01/19/20 11:05 AM Dianelys Benson Evaluation/Treatment Tolerance Patient limited by fatigue 01/18/2025 11:05 AM Dianelys Benson Rehab Potential Good, to achieve [facility] therapy goals 01/18/2025 11:05 AM Dianelys Benson Performance Deficits Activities of daily living (ADLs);Instrumental activities of daily living (IADLs);Rest and sleep;Body functions;Body structures;Motor skills;Process skills;Habits;Routines;R oles;Personal;Physical 01/18/2025 11:05 AM Dianelys Benson * C-SSRS (Frequent Screener) Question Answer Date of Assessment Author Is patient awake, alert, and able/willing to answer questions appropriately? Yes 01/23/2025 8:00 AM Ariadne Horner RN 1. Wish to be (Past 1 Month) No 025 8:00 AM EST Kreft, Ron K, RN 2. Non-Specific Active Suici christie Thoughts (Past 1 Month) No 01/23/2025 8:00 AM EST Ariadne Adame , RAI 6. Suicidal Behavior (Lifetime) No 8:00 AM Ariadne Horner, RN * Discharge Planning Continued Question Answer Date of Assessment Author Transportation Home at Discharge Other(Comment) 01/23/2025 10:09 AM Amanda Ford RN * [facility] 6-Clicks Mobility Assessment Question Answer Date of Assessment Author Difficulty patient has turni ng over in bed (including adjusting bedclothes, sheets, and blankets)? 2 01/18/2025 10:24 AM EST Micheal Chopra Difficulty patient has sitti ng down on and standing up from a chair with arms (wheelchair, bedside commode, etc.)? 2 01/18/2025 10:24 AM Alena Roque Difficulty patient has movin g from lying on back to sitting on the side of the bed? 2 01/18/2025 10:24 AM EST Katelyn Melton How much help does the patie nt need moving to and from a bed to a chair (including a wheelchair)? 2 01/18/2025 10:24 AM EST Micheal Hidalgo How much help does the patie nt need to walk in hospital room? 2 01/18/2025 10:24 AM EST Micheal Silvestre How much help does the patie nt need climbing 3-5 steps with a railing? 2 01/18/2025 10:24 AM Katelyn Roque [facility] 6-Clicks Mobility Asse ssment Total 12 01/18/2025 10:24 AM Katelyn Roque * Pre-op Phone Call Discharge Planning Question Answer Date of Assessment Author Patient expects to be discha rged to: home 01/16/2025 2:54 PM Kingsley Voss , RAI * PT Therapeutic Procedures Time Entry Question Answer Date of Assessment Author Therapeutic Exercise Time Entry 8 5 2:11 PM Nagi Malone Therapeutic Activity Time Entry 20 5 2:11 PM Nagi Malone * HEENT Question Answer Date of Assessment Author ARASH (WDL) X 01/23/2025 8:00 AM Ariadne Horner RN R Eye Mildly impaired vision 01/23/2025 8:00 AM Ariadne Horner RN L Eye Mildly impaired vision 01/23/2025 8:00 AM Ariadne Honrer RN R Ear Mildly impaired hearing 01/23/2025 8:00 A M Ariadne Horner RN L Ear Moderately impaired hearing 01/23/2025 8: 00 AM Ariadne Horner RN Teeth Missing teeth 01/23/2025 8:00 AM EST Ariadne Hilton RN * Infection Management Answer Date of Assessment Author aseptic technique maintained 01/22/2025 8:51 PM Christina Lovell RN * Adaptive Equipment Use Answer Date of Assessment Author use encouraged 01/22/2025 7:56 AM Harshil Sidhu RN * Oral Nutrition Promotion Answer Date of Assessment Author physical activity promoted 01/22/2025 8:51 PM Christina Yeh RN * Fever Reduction/Comfort Measures Answer Date of Assessment Author lightweight bedding;lightweight clothing 025 8:51 PM Christina Lovell RN * Trust Relationship/Rapport Answer Date of Assessment Author care explained;questions encouraged;choices provided;reassurance provided;emotional support provided;thoughts/feelings acknowledged;empathic listening provided;questions answered 01/22/2025 8:51 PM Christina Lovell RN * Pressure Reduction Devices Answer Date of Assessment Author pressure-redistributing mattress utilized 2024 8:51 PM Christina Lovell RN * Nutrition Interventions Answer Date of Assessment Author food preferences provided 01/22/2025 8:51 PM Christina Lovell RN * Infection Prevention Answer Date of Assessment Author environmental surveillance performed;equipment surfaces disinfected;hand hygiene promoted;single patient room provided;rest/sleep promoted 01/22/2025 8:51 PM Christina Lovell, RAI * Outcome Evaluation Answer Date of Assessment Author POC reviewed with pt. 01/22/2025 8:51 PM Christina Head RN * Medication Review/Management Answer Date of Assessment Author medications reviewed 01/22/2025 8:51 PM Christina Cr RN * Skin Protection Answer Date of Assessment Author incontinence pads utilized 01/22/2025 8:51 PM Christina Yeh RN * Self-Care Promotion Answer Date of Assessment Author independence encouraged;BADL personal objects within reach 01/22/2025 8:51 PM Christina Lovell, RN * Safety Interventions Question Answer Date of Assessment Author Bleeding Management dressing monitored;movement restricted 01/18/2025 8:00 AM Felisa Sidhu RN * Gastrointestinal Care Question Answer Date of Assessment Author Nausea/Vomiting Interventions nausea triggers minimized 01/18/2025 8:00 AM Felisa Sidhu RN * Skin Interventions Question Answer Date of Assessment Author Pressure Reduction Techniques frequent weight shift encouraged;heels elevated off bed;positioned off wounds;pressure points protected;rest period provided between sit times 01/22/2025 7:48 AM Felisa Sidhu RN * Goal: Anesthesia/Sedation Recovery Question Answer Date of Assessment Author Outcome Anesthesia/Sedation Recovery met 01/16/2025 6:15 PM Felisa Forrest RN * Respiratory Interventions Question Answer Date of Assessment Author Airway/Ventilation Management calming measures promoted;position adjusted;oxygen therapy provided 01/18/2025 8:00 AM Felisa Sidhu RN * Activity and Hygiene Care Question Answer Date of Assessment Author Oral Care oral rinse provided 01/22/2025 7:48 AM Felisa Chery RN * Discharge Needs Assessment Question Answer Date of Assessment Author Discharge Facility/Level of Care Needs [facility] 01/23/2025 10:09 AM Amanda Ford RN Equipment Needed After Discharge other (see comments) 01/23/2025 10:09 AM Amanda Ford RN Discharge Coordination/Progress Going to [facility] 01/23/2025 10:09 AM Amanda Ford RN Equipment Currently Used at Home walker, rollator;shower chair 01/23/2025 10:09 AM Amanda Ford RN Current Outpatient/Agency/Support Group clinic(s);DME 01/23/2025 10:09 AM Amanda Ford RN Anticipated Changes Related to Illness none 01/23/2025 10:09 AM Amanda Ford RN Concerns Comments Patient is going to [facility] where they can assist with care coordination. 01/23/2025 10:09 AM Amanda Ford RN Transportation Anticipated other (see comments) 01/23/2025 10:09 AM Amanda Ford RN Outpatient/Agency/Support Group Needs usp facility;OT, PT, [employer]ER 01/23/2025 10:09 AM Amanda Ford RN Transportation Concerns none 01/24/20 10:09 AM Amanda Ford RN Current Discharge Risk chronically ill 10:09 AM Amanda Ford RN Concerns to be Addressed no discharge ne eds identified;denies needs/concerns at this time;care coordination/care conferences 01/23/2025 10:09 AM Amanda Ford RN Readmission Within the Last 30 Days no previous admission in last 30 days 01/23/2025 10:09 AM Amanda Ford RN Patient/Family Anticipated Services at Transition rehabilitation services;[facility] 01/23/2025 10:09 AM Amanda Ford RN Patient's Choice of Community Agency(s) [facility] 01/23/2025 10:09 AM Amanda Ford RN Patient/Family Anticipates Transition to other (see comments) 01/23/2025 10:09 AM Amanda Ford RN Offered/Gave Vendor List yes 025 10:09 AM Amanda Ford RN Does the patient need discharge transport arranged? Yes 01/23/2025 10:09 AM Amanda Ford RN Has discharge transport been arranged? Yes 01/23/2025 10:09 AM Amanda Ford RN What day is the transport expected? [id number] 01/23/2025 10:09 AM Amanda Ford RN What time is the transport expected? [id number] 01/23/2025 10:09 AM Amanda Ford RN Who is requesting discharge planning? Provider 01/23/2025 10:09 AM Amanda Ford RN * Goal: Optimal Comfort and Wellbeing Question Answer Date of Assessment Author Outcome Optimal Comfort and Wellbeing met 01/16/2025 6:15 PM Felisa Forrest RN Elevated Risk Identified pain;situational anxiety 01/16/2025 5:31 PM Felisa Forrest RN * Goal: Minimized Risk/Safety Maintenance Question Answer Date of Assessment Author Elevated Risk Identified infection;procedure -related injury;VTE (venous thromboembolism) 01/16/2025 5:31 PM Felisa Forrest RN Outcome Minimized Risk and Safety met 01/16/2025 6:15 PM Felisa Forrest RN * Goal: Physiologic Homeostasis Question Answer Date of Assessment Author Elevated Risk Identified bleeding;respiratory compromise;postopera tive nausea and vomiting 01/16/2025 5:31 PM Felisa Forrest RN Outcome Physiologic Homeostasis met 01/16/2025 6:15 PM Felisa Forrest RN * Precautions Question Answer Date of Assessment Author Medical Precautions Fall precautions;Sei zure precautions 01/18/2025 11:05 AM Dianelys Benson * Date of OT Session Question Answer Date of Assessment Author OT Initials KF 01/18/2025 11:05 AM Dianelys Guan * Participants in Care Question Answer Date of Assessment Author Glass Lathe Operator N/A 01/18/2025 11:05 AM Dianelys Guan Family/Caregiver Present N 01/18/2025 11:05 AM Dianelys Benson * Presentation Question Answer Date of Assessment Author Lines and Tubes PICC;Intravenous access;Telemetry 01/18/2025 11:05 AM Dianelys Benson Pre-Session Supine;Head of bed elevated;Lines intact;Bed alarm 01/18/2025 11:05 AM Dianelys Benson Post-Session Sitting in chair;Carine ir alarm;Lines intact;RN notified;Call light in reach 01/18/2025 11:05 AM Dianelys Benson Pre-Session Comments RN consented to treatment 01/18/2025 11:05 AM Dianelys Benson Post-Session Comments All needs met 01/18/2025 11:05 A M Dianelys Benson * Sensation Question Answer Date of Assessment Author Light Touch: Right Upper Extremity Intact 2024 11:05 AM Dianelys Benson * Sensation Question Answer Date of Assessment Author Light Touch: Left Upper Extremity Intact 025 11:05 AM Dianelys Benson * Sensation Question Answer Date of Assessment Author Light Touch: Right Lower Extremity Intact 2024 11:05 AM Dianelys Benson * Sensation Question Answer Date of Assessment Author Light Touch: Left Lower Extremity Intact 025 11:05 AM Dianelys Benson * Bed Mobility Exam: Scooting/Bridging Question Answer Date of Assessment Author Level of Burnett Dependent 01/18/2025 11:00 AM Dianelys Benson Physical/Nonphysical Assist Verbal Cues;Nonverbal cues (demo/gestures);Maxim al cues;Additional assist utilized for safety 01/18/2025 11:00 AM Dianelys Benson * Bed Mobility Exam: Supine to Sit Question Answer Date of Assessment Author Level of Burnett Moderate assist (5 0% patient's effort) 01/18/2025 11:00 AM Dianelys Benson Physical/Nonphysical Assist HOB elevated;Moderate cues;Verbal Cues 01/18/2025 11:00 AM Dianelys Benson Assistive Device Bed rails 01/18/2025 11:0 0 AM Dianelys Benson * Transfer Exam: Sit to stand Question Answer Date of Assessment Author Level of Burnett Moderate assist (5 0% patient's effort) 01/18/2025 11:00 AM Dianelys Benson Physical/Nonphysical Assist Verbal Cues;Maximal cues;Additional assist utilized for safety 01/18/2025 11:00 AM Dianelys Benson Assistive Device Walker, rolling 01/18/2025 11:0 0 AM Dianelys Benson * Transfer Exam: Stand to Sit Question Answer Date of Assessment Author Level of Burnett Moderate assist (5 0% patient's effort) 01/18/2025 11:00 AM Dianelys Benson Physical/Nonphysical Assist Verbal Cues;Maximal cues;Additional assist utilized for safety 01/18/2025 11:00 AM Dianelys Benson Assistive Device Walker, rolling 01/18/2025 11:0 0 AM Dianelys Benson * Transfer Exam: Bed to Chair/Chair to Bed Question Answer Date of Assessment Author Type of Transfer Sidesteps 01/18/2025 11:0 0 AM Dianelys Benson Level of Burnett Moderate assist (5 0% patient's effort) 01/18/2025 11:00 AM Dianelys Benson Physical/Nonphysical Assist Verbal Cues;Maximal cues;Additional assist utilized for safety 01/18/2025 11:00 AM Dianelys Benson Assistive Device Walker, rolling 01/18/2025 11:0 0 AM Dianelys Benson * Postural Appearance Question Answer Date of Assessment Author Posture Forward head;Rounded shoulders;Stooped posture 01/18/2025 11:05 AM Dianelys Benson * Interventions Question Answer Date of Assessment Author Self-Care Interventions OT provided extr a time and mod VC's/gestural cues for patient to initiate and complete ADL tasks. Pt positioned upright at edge of bed in prep for seated level ADL tasks, min A needed for static sitting balance. Pt able to stand from edge of bed with mod A x2 persons, then performed bed to chair transfer via RW and mod A x2 persons in prep for toilet transfer. Pt moves very slowly and requires cues for weight shifting and sequencing transfer at RW level, max cues to reach back for armrest of chair to sit with decreased carryover, pt with poorly controlled descent to sitting. 01/18/2025 11:00 AM Dianelys Benson * UE Dressing Question Answer Date of Assessment Author UE Dressing Interventions Anticipated, donning pullover shirt 01/18/2025 11:00 AM Dianelys Benson UE Dressing Where Assessed Chair level 01/18/2025 11:00 AM Dianelys Benson Dressing Level of Assistance Minimum assistance 01/18/2025 11:00 AM Dianelys Benson * Lower Extremity Dressing Question Answer Date of Assessment Author LE Dressing Interventions Donning bilateral non-skid socks, pt reports difficulty with task since TKR last month 01/18/2025 11:00 AM Dianelys Benson LE Dressing Where Assessed Edge of bed 01/18/2025 11:00 AM Dianelys Benson Sock Level of Assistance Dependent 025 11:00 AM Dianelys Benson * Toileting Question Answer Date of Assessment Author Toileting Interventions Pt noted to have incontinent void on chux, dep A for clothing mgmt and hygiene at RW level 01/18/2025 11:00 AM Dianelys Benson Where Assessed Other (Comment) 01/18/2025 11:00 AM Dianelys Benson Toileting Level of Assistance Dependent 01/18/2025 11:00 AM Dianelys Benson * General Question Answer Date of Assessment Author Next PT Re-Assessment Date [id number] 01/18/2025 10: 24 AM Micheal Roque Date of PT Session [id number] 01/18/2025 10:24 AM Micheal Hilliard Patient/Family Goals Statement Return home. 01/18/2025 10:24 AM Katelyn Roque * Plan Question Answer Date of Assessment Author Predicted Duration of Therapy 2 weeks 01/18/2025 10:24 AM Micheal Roque Discharge Recommendation Acute rehab 025 10:24 AM Micheal Roque Equipment Recommended Defer to facility 01/19/20 25 10:24 AM Micheal Roque Planned PT Interventions Balance trainin g;Bed mobility training;Gait training;Transfer training;Postural re-education;ROM;Str engthening;Stretchin g;Functional Mobility 01/18/2025 10:24 AM Micheal Roque Therapy Frequency 2 - 5 times per week 10:24 AM Micheal Roque * PT Assessment Question Answer Date of Assessment Author Activity Limitations Inability to sit independently;Inability to ambulate independently;Inability to ambulate community distances;Inability to ambulate household distances;Inability to transfer independently 01/18/2025 10:24 AM Micheal Roque Participation Restrictions Self-care;Home management;Community leisure 01/18/2025 10:24 AM Micheal Roque History Profile 3 or more personal factors and/or comorbidities 01/18/2025 10:24 AM Micheal Roque Barriers to Discharge Comorbidities 01/18/2025 10:24 AM Micheal Roque Impairments Decreased endurance, ventilation, and/or gas exchange;Impaired gait dynamics/performance;Impa ired locomotion;Impaired motor planning;Impaired motor cordination/control;Impai red postural/trunk control;Impaired balance;Impaired functional mobility/transfers 01/18/2025 10:24 AM Micheal Roque Evaluation/Treatment Tolerance Patient limited by fatigue 01/18/2025 10:24 AM Micheal Roque Diagnosis Decreased functional mobility 01/18/2025 10:24 AM Micheal Roque Clinical Presentation Evolving clinical presentation with changing characteristics 01/18/2025 10:24 AM Micheal Roque Clinical Decision Making Moderate complexity 12/2024 10:24 AM Micheal Roque Rehab Potential Good, to achieve [facility] therapy goals 01/18/2025 10:24 AM Micheal Roque Activity Tolerance Tolerates 30 min act ivity with multiple rests 01/18/2025 10:24 AM Micheal Roque * HLM Score Question Answer Date of Assessment Author [facility] Daily Mobility Goal 2 01/19/2025 8:0 0 AM Scar Shahid RN [facility] Daily Mobility Score 2 01/19/2025 8: 00 AM Scar Shahid RN * Plan of Care Reviewed With Answer Date of Assessment Author patient 01/22/2025 8:51 PM Christina Lovell RN * Pressure Injury Prevention (PIP) Interventions Question Answer Date of Assessment Author Pressure Reducing Devices Specialty bed;Pillow 01/22/2025 8:18 PM Christina Lovell RN Bed Type Acute Care Bed 01/23/2025 8:00 AM Ariadne Nguyen RN * Vital Signs Question Answer Date of Assessment Author BP 150/70 01/23/2025 11:25 AM EST Abe mujica, Doc Flowsheet In Temp 98.1 01/23/2025 11:25 AM EST Inte addisce, Doc Flowsheet In Pulse 66 01/23/2025 11:25 AM EST Abe mujica, Doc Flowsheet In MAP (mmHg) 97 01/23/2025 11:25 AM Francesco Alvarado Flowsheet In * Oxygen Therapy Question Answer Date of Assessment Author SpO2 94 01/23/2025 11:25 AM Francesco Alvarado Flowsheet In * Vitals Question Answer Date of Assessment Author Heart Rate Source Monitor 01/22/2025 8:18 PM Christina Lovell RN * Neurological Question Answer Date of Assessment Author Level of Consciousness Alert 8:00 AM Ariadne Horner RN Orientation Level Oriented X4 01/23/2025 8:0 0 AM Ariadne Horner RN Cognition Appropriate judgement;Appropriate safety awareness;Appropriate attention/concentration; Appropriate for developmental age;Follows commands 01/23/2025 8:00 AM Ariadne Horner RN Speech Clear 01/23/2025 8:00 AM Ariadne Horner RN L Pupil Reaction Brisk 01/23/2025 8:00 AM Ariadne Horner RN L Pupil Size (mm) 3 01/23/2025 8:0 0 AM Ariadne Horner RN R Pupil Reaction Brisk 01/23/2025 8:00 AM Ariadne Horner RN R Pupil Size (mm) 3 01/23/2025 8:0 0 AM Ariadne Horner RN LUPenny Motor Response Responds to commands 01/18/20 25 3:30 AM Cydney Garcia RN LUE Sensation Full sensation 01/23/2025 8:00 AM Ariadne Horner RN LLE Motor Response Responds to commands 01/18/20 25 3:30 AM Cydney Garcia RN LLE Sensation Full sensation 01/23/2025 8:00 AM Ariadne Horner RN RUE Motor Response Responds to commands 01/18/20 25 3:30 AM Cydney Garcia RN RUE Sensation Full sensation 01/23/2025 8:00 AM Ariadne Horner RN RLE Motor Response Responds to commands 01/18/20 25 3:30 AM Cydney Garcia RN RLE Sensation Full sensation 01/23/2025 8:00 AM Ariadne Horner RN Neuro (WDL) WDL 01/23/2025 8:00 AM Ariadne Horner RN Swallow Able to swallow bruna ds and liquids without difficulty 01/19/2025 4:00 PM EST Scar Simpson RN R Hand Grasp Moderate 01/17/2025 3:30 AM Cydney Garcia RN L Hand Grasp Moderate 01/17/2025 3:30 AM Cydney Garcia RN R Foot Dorsiflexion Moderate 01/17/2025 3 :30 AM Cydney Garcia RN L Foot Dorsiflexion Moderate 01/17/2025 3 :30 AM Cydney Garcia RN R Pupil Shape Round 01/23/2025 8:00 AM Ariadne Horner RN L Pupil Shape Round 01/23/2025 8:00 AM Ariadne Horner RN RUE Motor Strength Normal power 01/17/2025 3: 30 AM Cydney Garcia RN LUE Motor Strength Normal power 01/17/2025 3: 30 AM Cydney Garcia RN RLE Motor Strength Can overcome resistance 01/17 3:30 AM Cydney Garcia RN LLE Motor Strength Can overcome resistance 01/17 3:30 AM Cydney Garcia RN Pupil Assessment Yes 01/23/2025 8:00 AM Ariadne Horner RN * Cardiac Question Answer Date of Assessment Author Cardiac Rhythm NSR 01/19/2025 4:00 PM Scar Christensen RN Ectopy Premature ventricula r contractions 01/23/2025 4:20 AM Christina Lovell RN Ectopy Frequency Rare 01/23/2025 4:20 AM Christina Lynn RN Heart Sounds S1, S2 01/23/2025 8:00 AM Ariadne Horner RN Jugular Venous Distention (JVD) No 01/23/2025 8:00 AM Ariadne Horner RN * Associate Quality Engineer Question Answer Date of Assessment Author Telemetry Strip Reviewed Yes, I have reviewed and acknowledged. 01/22/2025 7:48 AM Felisa Sidhu RN Showroom Salesperson On No 01/23/2025 8:00 AM Ariadne Woods RN Telemetry Audible Yes 01/23/2025 4:20 AM Christina Lovell RN Telemetry Alarms Set Yes 01/23/2025 4:20 AM E Christina Ferris RN Telemetry Box Number pacu #[id number] 01/16/2025 5:17 PM E Felisa Avila RN * Gastrointestinal Question Answer Date of Assessment Author Most Recent BM Date [id number] 01/22/2025 8:18 PM Christina Yeh RN Gastrointestinal (WDL) WDL 01/23/2025 8:00 AM Ariadne Horner RN GI Symptoms Constipation 01/21/2025 4:00 PM David Alfaro RN * Peripheral Vascular Question Answer Date of Assessment Author Peripheral Vascular ([facility]) X 01/23/2025 8:00 AM Ariadne Horner RN RLE Edema +1 01/23/2025 8:00 AM Ariadne Horner RN LLE Edema +1 01/23/2025 8:00 AM Ariadne Horner RN Capillary Refill Less than/equal to 2 seconds (All extremities) 01/23/2025 8:00 AM Ariadne Horner RN Pulses R radial;L radial;R pedal;L pedal 01/23/2025 8:00 AM Ariadne Horner RN Cyanosis None 01/23/2025 8:00 AM Ariadne Horner RN Edema Right lower extremity;Left lower extremity 01/23/2025 8:00 AM Ariadne Horner RN PVS Additional Assessments RUE;RLE;LUE;LLE 01/16/2025 5:17 PM Felisa Forrest RN * RUPenny Neurovascular Assessment Question Answer Date of Assessment Author CHRISTIANNE Capillary Refill Less than/equal to 2 seconds 01/16/2025 5:30 PM Feilsa Forrest RN RUPenny Color Appropriate for ethnicity 01/16/2025 5:30 PM Felisa Forrest RN RUPenny Temperature/Moisture Warm;Dry 01/16/2025 5:30 PM Felisa Forrest RN R Radial Pulse +2 01/23/2025 8:00 AM EST Kre ft, Ron K, RN RUE Movement Decreased 01/17/2025 8:00 AM EST Ofelia Lechuga, RN * LUE Neurovascular Assessment Question Answer Date of Assessment Author LUE Capillary Refill Less than/equal to 2 seconds 01/16/2025 5:30 PM EST Felisa Hernandez, RN LUE Color Appropriate for ethnicity 01/16/2025 5:30 PM Felisa Forrest, RN LUE Temperature/Moisture Warm;Dry 01/16/2025 5:30 PM EST Felisa Hernandez , RN L Radial Pulse +2 01/23/2025 8:00 AM EST Ariadne Jacques, RN LUE Movement Decreased 01/17/2025 8:00 AM EST Ofelia Lechuga RN * RLE Neurovascular Assessment Question Answer Date of Assessment Author RLE Capillary Refill Less than/equal to 2 seconds 01/16/2025 5:30 PM Felisa Forrest, RN RLE Color Appropriate for ethnicity 01/16/2025 5:30 PM Felisa Forrest, RN RLE Temperature/Moisture Warm;Dry 01/16/2025 5:30 PM Felisa Forrest , RN R Pedal Pulse +2 01/23/2025 8:00 AM EST Ariadne Hilton, RN RLE Movement Decreased 01/17/2025 8:00 AM EST Ofelia Lechuga RN * LLE Neurovascular Assessment Question Answer Date of Assessment Author LLE Capillary Refill Less than/equal to 2 seconds 01/16/2025 5:30 PM EST Felisa Hernandez, RN LLE Color Appropriate for ethnicity 01/16/2025 5:30 PM EST Felisa Hernandez, RN LLE Temperature/Moisture Warm;Dry 01/16/2025 5:30 PM Felisa Forrest , RN L Pedal Pulse +2 01/23/2025 8:00 AM EST Ariadne Hilton, RN LLE Movement Decreased 01/17/2025 8:00 AM EST Ofelia Lechuga RN * Musculoskeletal Question Answer Date of Assessment Author RUE Weakness 01/23/2025 8:00 AM EST Ariadne Adame RN RLE Limited movement 01/23/2025 8:00 AM Ariadne Manning RN LUE Weakness 01/23/2025 8:00 AM Ariadne Horner RN LLE Limited movement 01/23/2025 8:00 AM Ariadne Manning RN Musculoskeletal (WDL) X 01/23/2025 8:00 AM Ariadne Horner RN * Urine Assessment Question Answer Date of Assessment Author Urine Color Yellow/straw 01/22/2025 8:18 PM Christina Fontana RN Urine Appearance Clear 01/22/2025 8:18 PM Christina Lynn RN Urine Odor No odor 01/19/2025 4:00 PM ZULY Melany Katzrandell De Dios RN Urinary Incontinence Yes 01/22/2025 8:18 PM E Christina Ferris RN * Genitalia Question Answer Date of Assessment Author Female Genitalia Redness 01/23/2025 8:00 AM Ariadne Manning RN * Psychosocial Question Answer Date of Assessment Author Psychosocial (WDL) WDL 01/23/2025 8:00 AM Ariadne Horner RN * Díaz Fall Risk Question Answer Date of Assessment Author History of Falling, Immediat e or Within 3 Months 0 01/23/2025 8:00 AM Ariadne Horner RN Secondary Diagnosis 15 01/23/2025 8:00 AM Ariadne Palmer RN Ambulatory Aid 15 01/23/2025 8:00 AM Ariadne Nguyen RN Intravenous Therapy/Heparin Lock 20 01/24/20 25 8:00 AM Ariadne Horner RN Gait/Transferring 10 01/23/2025 8:00 AM Ariadne Horner RN Mental Status 0 01/23/2025 8:00 AM Ariadne Giles RN Díaz Fall Risk Score 60 01/23/2025 8:00 AM Ariadne Horner RN * Isael Scale Question Answer Date of Assessment Author Sensory Perceptions 3 01/22/2025 8:52 PM Christina Yeh RN Moisture 3 01/22/2025 8:52 PM Christina Fontana RN Activity 3 01/22/2025 8:52 PM EST Christina Contreras RN Mobility 3 01/22/2025 8:52 PM EST Christina Contreras RN Nutrition 3 01/22/2025 8:52 PM EST Christina Contreras RN Friction and Shear 2 01/22/2025 8:52 PM Christina Lovell RN Isael Scale Score 17 01/22/2025 8:52 PM EST Christina Fritz RN * BSA (Calculated - sq m) Answer Date of Assessment Author 2.07 01/22/2025 6:00 AM EST Nancy Garber h * BMI (Calculated) Answer Date of Assessment Author 37.62 01/22/2025 6:00 AM EST Nancy Garber h * Pain Location Answer Date of Assessment Author Back;Head;Neck 01/22/2025 9:43 PM Christina Lovell RN * Pain Orientation Answer Date of Assessment Author Mid;Lower 01/19/2025 9:17 PM EST Christina Fritz RN * Cardiac Question Answer Date of Assessment Author Cardiac ([facility]) [facility] 01/17/2025 4:00 PM EST Ofelia Peter RN * Respiratory Question Answer Date of Assessment Author Respiratory ([facility]) [facility] 01/23/2025 8:00 AM EST Ariadne Adame RN * RLE ROM Assessment Question Answer Date of Assessment Author RLE Assessment [facility] 01/18/2025 11:05 AM EST Dianelys Mancilla * LLE ROM Assessment Question Answer Date of Assessment Author LLE Assessment [facility] 01/18/2025 11:05 AM EST Dianelys Mancilla * Vitals Question Answer Date of Assessment Author Temp src Oral 01/23/2025 11:25 AM EST Benji Neville Resp 16 01/23/2025 11:25 AM Benji Chicas Weight 3396.85 01/22/2025 6:00 AM Alice Kuhn O2 Flow Rate (L/min) 1 01/23/2025 7:39 AM E Benji Quiñonez BP Location Right arm 01/23/2025 11:25 AM Benji Chicas BP Method Automatic 01/23/2025 11:25 AM Benji Chicas Pulse Oximetry Type Intermittent 01/23/2025 11:25 AM E Benji Quiñonez Patient Activity During SpO2 Measurement At rest 01/23/2025 11:25 AM Benji Monterroso Oxygen Therapy None 01/23/2025 11:25 AM EST Benji Hackett O2 Delivery Method Nasal cannula 01/23/2025 7:39 AM Benji Osullivan Patient Position Lying 01/23/2025 11:25 AM Benji Monterroso * Point of Care Tests Question Answer Date of Assessment Author Provider Role Hospitalist 01/20/2025 1:27 AM Christina Cr RN Provider Name Kimberly Pfeiffer 01/20/2025 1:27 AM Christina Cr RN Method of Communication Secure message 01/20/2025 1:27 AM Christina Lovell RN Response See orders 01/20/2025 1:27 AM Christina Fontana RN * Vision - Basic Assessment Question Answer Date of Assessment Author Baseline Vision Glasses distance;Gla sses reading 01/18/2025 11:00 AM Dianelys Benson Tracking Intact 01/18/2025 11:00 AM Dianelys Guan Visual History Cataracts 01/18/2025 11:00 AM Dianelys Farmer * Patient Information Question Answer Date of Assessment Author Accompanied by/Relationship spouse 01/16/2025 10:20 AM Amanda Ford RN Support System Immediate family 01/16/2025 10:20 AM Amanda Lopez RN * Activities of Daily Living Question Answer Date of Assessment Author Living Arrangements Spouse/Significant other 01/16/2025 10:20 AM Amanda Ford RN Type of Residence Private residence;Multi Level 01/16/2025 10:20 AM Amanda Ford RN * Income Information Question Answer Date of Assessment Author Income Source Retired 01/16/2025 10:20 AM Amanda Ford RN Income/Expense Information Income meets expenses 01/16/2025 10:20 AM Amanda Ford RN Current Resources Utilized None 01/16/2025 10:20 AM Amanda Ford RN * Advance Directives (For Healthcare) Question Answer Date of Assessment Author Advance Directive Patient has advance directive, copy not in chart 01/15/2025 9:00 PM Cydney Garcia RN Advance Directive not in Chart Copy requested from family 01/15/2025 9:00 PM Cydney Garcia RN Pre-existing DNR/DNI Order No 01/15/2025 9:00 PM Cydney Garcia R N Information Provided on Healthcare Directives No 01/15/2025 9:00 PM Cydney Garcia RN Patient Requests Assistance No 01/15/2025 9:00 PM Cydney Garcia R N Have you reviewed your Advance Directive and is it valid for this stay? No 01/15/2025 9:00 PM Amari Garcia i, RN * Nutrition Screen Question Answer Date of Assessment Author Difficulty Chewing or Swallowing Yes (Comment) 01/15/2025 10:00 PM Cydney Garcia RN Burn, Pressure Injury, or Non-Healing Wound No 01/15/2025 10:00 PM Cydney Garcia RN Home Tube Feeding or Total Parenteral Nutrition (TPN) No 01/15/2025 10:00 PM Cydney Garcia RN Food allergy, Yarsani, or Cultural nutrition needs No 01/15/2025 10:00 PM Manjinder Garcia RN * Pain Descriptors Answer Date of Assessment Author Aching;Discomfort 01/22/2025 9:43 PM Christina Lovell RN * Pain Onset Answer Date of Assessment Author Gradual 01/22/2025 9:43 PM Christina Lovell RN * Pain Frequency Answer Date of Assessment Author Intermittent 01/22/2025 9:43 PM Christina Lovell RN * Trauma/Abuse Assessment Question Answer Date of Assessment Author Physical Abuse Denies 01/15/2025 10:00 PM Cydney Carlos RN Verbal Abuse Denies 01/15/2025 10:00 PM Cydney Franks RN * Values/Beliefs Question Answer Date of Assessment Author Cultural Requests During Hospitalization accepts blood products 01/16/2025 3:05 PM Kingsley Voss RN Spiritual Requests During Hospitalization denies 01/15/2025 10:00 PM Cydney Garcia RN Unable to assess Yes 01/15/2025 10:0 0 PM Cydney Garcia RN * Genitourinary Question Answer Date of Assessment Author Genitourinary ([facility]) X 01/23/2025 8:00 AM Ariadne Palmer, RN Genitourinary Symptoms Sanz catheter 01/23/2025 8:00 AM Ariadne Horner, RN * Neurological Question Answer Date of Assessment Author Neuro ([facility]) [facility] 01/17/2025 4:00 PM Ofelia Gomes RN * Prior Function Question Answer Date of Assessment Author Level of Mobility Ambulatory- community 01/19/20 10:24 AM Micheal Roque Mobility [place] Independent gait without device 01/18/2025 10:24 AM Micheal Roque History of Falls No 01/18/2025 10:2 4 AM Micheal Roque ADL Performance Needs assistance 01/18/2025 10:2 4 AM Micheal Roque Receives Help From Spouse 01/18/2025 10 :24 AM Micheal Roque Bathing Independent 01/18/2025 10:24 AM Micheal Roque Upper Body Dressing Independent 01/18/2025 1 0:24 AM Micheal Roque Lower Body Dressing Needs assist 01/18/2025 1 0:24 AM Micheal Roque Grooming Independent 01/18/2025 10:24 AM Micheal Roque Toileting Independent 01/18/2025 10:24 AM Micheal Roque Eating Independent 01/18/2025 10:24 AM Micheal Roque Home Management Skills Needs assist 10:24 AM Micheal Roque * RUE ROM Assessment Question Answer Date of Assessment Author RUE Assessment [facility] 01/18/2025 11:05 AM Dianelys Farmer * LUE ROM Assessment Question Answer Date of Assessment Author LUE Assessment [facility] 01/18/2025 11:05 AM Dianelys Farmer * Safe Environment Question Answer Date of Assessment Author 37-Pin Connection [Bed and Wall] Yes 01/23/2025 8:00 AM Ariadne Horner, RN Arm Bands On ID 01/23/2025 8:00 AM Ariadne Horner RN Side Rails/Bed Safety 3/4 01/23/2025 8:00 AM Ariadne Horner RN NonSkid Footwear On;Patient in bed 01/23/2025 8:00 AM Ariadne Horner RN The Patient's Environment is Safe Yes 01/23/2025 8:00 AM Ariadne Horner RN Head of Bed Angle 30 01/23/2025 8:00 AM Ariadne Horner RN Bed Foot Left Rail Up State No 01/23/2025 8:00 AM Ariadne Horner RN Bed Head Right Rail Up State Yes 01/23/2025 8:00 AM Ariadne Horner RN Bed Head Left Rail Up State Yes 01/23/2025 8:00 AM Ariadne Horner RN Bed Foot Right Rail Up State Yes 01/23/2025 8:00 AM Ariadne Horner RN Bed Exit System Activate Status Yes 01/23/2025 8:00 AM Ariadne Horner RN Bed Brake State Yes 01/23/2025 8:00 AM Ariadne Davis RN Bed Low Height State Yes 01/23/2025 8:00 AM Ariadne Woods RN Chair Exit System Activate Status No 01/23/2025 4:18 AM Christina Lovell RN * Fall Risk Interventions Question Answer Date of Assessment Author Safety Promotion/Fall Prevention activity supervised;assistive device/personal items within reach;clutter-free environment maintained;fall prevention program maintained;lighting adjusted;mobility aid in reach;nonskid shoes/slippers when out of bed;room organization consistent;safety round/check completed;toileting scheduled 01/23/2025 8:00 AM Ariadne Horner RN Enhanced Safety Measures bed alarm set;room near unit station 01/23/2025 8:00 AM Ariadne Horner RN Toilet Every 2 Hours-In Advance of Need Yes 01/23/2025 8:00 AM Ariadne Horner RN Hourly Visual Checks Awake;In bed 01/23/2025 8:00 AM Ariadne Woods RN Room Door Open Deferred to decrease stimulation 01/23/2025 8:00 AM Ariadne Horner RN Gait Belt Used For Transfers Not applicable 01/23/2025 8:00 AM Ariadne Horner RN Fall Bundle Components Call light within reach;Personal belongings within reach;Overbed table within reach;Bed in lowest position;Bed wheels locked;Non-skid footwear on if up in chair or ambulating;Staff to remain with patient during toileting;Fall risk sign on door;Bed alarm on in zone 2 with proper weight settings;Staff to remain with patient during ambulation and tranfers 01/23/2025 8:00 AM Ariadne Horner RN * Mobility Question Answer Date of Assessment Author Range of Motion active ROM (range of motion) encouraged 01/23/2025 8:00 AM Ariadne Horner RN Activity Management activity adjusted pe r tolerance 01/23/2025 8:00 AM Ariadne Horner RN Activity Assistance Provided assistance, 2 people 01/22/2025 8:18 PM Christina Lovell RN Body Position turned;left 01/23/2025 8:00 AM Ariadne Giles RN VTE Prevention/Management bilateral;SCDs (sequential compression devices) on 01/23/2025 8:00 AM Ariadne Horner RN Head of Bed (HOB) Positioning HOB elevated 01/23/2025 8:00 AM Ariadne Horner RN Head of Bed Elevated Self regulated 01/23/2025 8:00 AM Ariadne Horner RN Heels/Feet Heels elevated off bed 01/23/2025 8:00 AM Ariadne Horner RN Positioning Frequency Able to turn self 01/23/2025 8:0 0 AM Ariadne Horner RN * Hygiene Question Answer Date of Assessment Author Perineal Care absorbent pad 01/19/2025 8:00 AM Scar Christensen RN Bathing/Skin Care patient refused;education provided 01/22/2025 10:17 AM Jayy Mora Oral Care (Yes/No) Yes 01/22/2025 7:48 AM Felisa Sidhu RN CHG (Chlorhexidine Gluconate) Hygiene Wipes 01/22/2025 7:31 AM Felisa Sidhu RN * Precautions Question Answer Date of Assessment Author Isolation Precautions protective;precaut ions maintained 01/23/2025 8:00 AM Ariadne Horner RN Precautions Fall risk;Environmen gautam surveillance 01/23/2025 8:00 AM Ariadne Horner RN * Family/Significant Other Communication Question Answer Date of Assessment Author Family/Significant Other Update Updated 2:52 PM Kingsley Voss RN * Comfort and Environment Interventions Question Answer Date of Assessment Author Comfort Repositioned 01/23/2025 8:00 AM Ariadne Horner RN * Safety Equipment at Bedside Question Answer Date of Assessment Author Standard Bedside Safety Ambu bags in hallway;Suction available, setup and working;Oxygen available and working 01/23/2025 8:00 AM Ariadne Horner RN Additional Bedside Safety Bed in locked and low position;Clutter free environment 01/23/2025 8:00 AM Ariadne Horner RN * Consults Question Answer Date of Assessment Author Integrative Medicine Consult Needed No 01/15 10:00 PM Cydney Garcia RN Pastoral Care Consult Needed No 01/15/2025 1 0:00 PM Cydney Garcia RN Social Services Consult Needed No 01/15/2025 10:00 PM Cydney Garcia RN * Therapy Consults Question Answer Date of Assessment Author PT Evaluation Needed 1 01/15/2025 10:00 PM Cydney Garcia RN OT Evaluation Needed 2 01/15/2025 10:00 PM Cydney Garcia RN [employer]ADER Evaluation Needed 2 01/15/2025 10:00 PM Cydney Garcia RN * Assistive Devices Question Answer Date of Assessment Author Assistive Devices Walker 01/15/2025 10:00 PM Cydney Garcia RN * PAINAD (Pain Assessment in Advanced Dementia) Question Answer Date of Assessment Author Pain Management Interventions declines 01/23/2025 7:30 AM Ariadne Horner RN * Provider Notification Question Answer Date of Assessment Author Reason for Communication Review case 01/19/2025 3:10 AM Christina Lovell RN Notification Time 5220 01/20/2025 1:27 AM Christina Lovell RN * Hourly Rounding Question Answer Date of Assessment Author Hourly Rounding Complete Per Guideline Yes 01/23/2025 9:00 AM Ariadne Horner RN * Patient Violence Risk Assessment Question Answer Date of Assessment Author History of Violence: In the past 12 hours has the PATIENT exhibited any of the following? None 01/23/2025 8:00 AM Ariadne Horner RN Potential for Violence: In the past 12 hours has the PATIENT exhibited any of the following? None 01/23/2025 8:00 AM Ariadne Horner RN Risk No identified risk 01/23/2025 8:00 AM Ariadne Horner RN History of Violence: In the past 12 hours has a PARTNER IN CARE of the patient exhibited any of the following? None 01/23/2025 8:00 AM Ariadne Horner RN * Restart Vitals Timer Answer Date of Assessment Author Yes 01/23/2025 11:25 AM Gurpreet Monterroso * Height and Weight Question Answer Date of Assessment Author Height 63 01/16/2025 3:05 PM iKngsley Pugh RN * Neurological Question Answer Date of Assessment Author Hand Grasp/Motor Function/Sensation Assessment Grasp;Dorsiflexion;M otor response;Sensation;M otor strength 01/16/2025 5:30 PM Felisa Forrest RN * STOP-Bang Questionnaire Question Answer Date of Assessment Author Do you snore loudly? 0 01/15/2025 10:00 PM Cydney Garcia RN Do you often feel tired or f atigued after your sleep? 0 01/15/2025 10:00 PM Cydney Garcia RN Has anyone ever observed you stop breathing in your sleep? 0 01/15/2025 10:00 PM Manjinder Garcia RN Do you have or are you being treated for high blood pressure? 1 01/15/2025 10:00 PM Cydney Jung RN Is BMI greater than 35 kg/m2? 0=No 01/15/2025 10:00 PM Cydney Garcia RN Age older than 50 years old? 1=Yes 01/15/2025 1 0:00 PM Cydney Garcia RN Is your neck circumference g reater than 17 inches (Male) or 16 inches (Female)? 0 01/15/2025 10:00 PM Cydney Garcia RN Gender - Male 0=No 01/15/2025 10:00 PM Cydney Jung RN STOP-Bang Total Score 2 01/15/2025 10:00 PM Cydney Garcia RN Recent BMI (Calculated) 33 01/15/2025 10:00 PM Cydney Garcia RN * Feeding Question Answer Date of Assessment Author Feeding Interventions Anticipated, to perform self-feeding tasks. Pt is on regular, consistent CHO diet. 01/18/2025 11:00 AM Dianelys Benson Feeding Level of Assistance Setup 01/18/2025 11:00 AM Dianelys Benson Feeding Where Assessed Chair Level 11:00 AM Dianelys Benson * Grooming Question Answer Date of Assessment Author Grooming Interventions To brush hair, wa sh face, complete oral care at seated level with min A needed to brush posterior aspect of hair 01/18/2025 11:00 AM Dianelys Benson Grooming Where Assessed Chair level 01/19/20 11:00 AM Dianelys Benson Grooming Level of Assistance Minimum assistance;Minimal verbal cues 01/18/2025 11:00 AM Dianelys Benson * Dynamic Standing Balance Question Answer Date of Assessment Author Dynamic Standing Level of Assistance Moderate assistance 01/18/2025 11:05 AM Dianelys Benson Dynamic Standing-Balance Support Right upper extremity support;Left upper extremity support 01/18/2025 11:05 AM Dianelys Benson Dynamic Standing-Balance Lateral weight shifts;Anterior/Meat Wrapper ior weight shifts 01/18/2025 11:05 AM Dianelys Benson * General Question Answer Date of Assessment Author Next OT Reassessment 48695 01/18/2025 11:05 AM Dianelys Benson Patient/Family Goals Statement Pt desires to return home when able to. 01/18/2025 11:05 AM Dianelys Benson Date of OT Session [id number] 01/18/2025 11 :05 AM Dianelys Benson * Home Living Question Answer Date of Assessment Author Home Type House 01/18/2025 10:24 AM Micheal Santos Bathroom: Tub/Shower Walk-in shower;Grab bars 01/18/2025 10:24 AM Micheal Roque Bathroom: Toilet Standard 01/18/2025 10:24 AM Micheal Roque Home Living Comments Pt reports recent R TKR on 12/14/24. Has mostly been at home since then, when going to the grocery store relies on shopping cart for support. 01/18/2025 10:24 AM Micheal Roque Home Layout Two level;Able to live on one level with bedroom/bathroom 01/18/2025 10:24 AM Micheal Roque Home Adaptive Equipment Rolling walker;Rollator;Cane; shower chair 01/18/2025 10:24 AM Micheal Roque Lives With Spouse 01/18/2025 10:24 AM Micheal Santos * Date of PT Session Question Answer Date of Assessment Author PT Initials NAVEEN/ALLEN 01/18/2025 10:24 AM Micheal Santos * Calculated C-SSRS Risk Score (Lifetime/Recent) Answer Date of Assessment Author No Risk Indicated 01/23/2025 8:00 AM Ariadne Horner RN * Lincoln Coma Scale Question Answer Date of Assessment Author Best Eye Response Spontaneous 01/23/2025 8:00 AM Ariadne Horner RN Best Verbal Response Oriented 01/23/2025 8:00 AM E Ariadne Nair RN Best Motor Response Follows commands 01/23/2025 8:00 A M Ariadne Horner RN Lincoln Coma Scale Score 15 01/23/2025 8:00 AM Ariadne Horner RN * Enhanced Neuro Checks Question Answer Date of Assessment Author Facial Droop No 01/17/2025 3:30 AM Cydney Bowen RN Gaze Normal 01/17/2025 3:30 AM EST Jacks on, Cydney, RN Motor - LUE No drift 01/17/2025 3:30 AM EST Robins onCydney, RN Sensation (responds to stimuli) - LUE Yes 01/17/2025 3:30 AM EST Bashir Valienteci, R N Motor - RUE No drift 01/17/2025 3:30 AM EST Robins onCydney, RN Sensation (responds to stimuli) - RUE Yes 01/17/2025 3:30 AM EST Bashir Valienteci, R N Motor - LLE No drift 01/17/2025 3:30 AM EST Robins on, Cydney, RN Sensation (responds to stimuli) - LLE Yes 01/17/2025 3:30 AM EST Rocco, Cydney, R N Motor - RLE No drift 01/17/2025 3:30 AM EST Robins on, Cydney, RN Sensation (responds to stimuli) - RLE Yes 01/17/2025 3:30 AM EST Cydney Valiente, R N Limb Ataxia No Ataxia 01/17/2025 3:30 AM EST Michel onCydney, RN Visual Teague No visual loss 01/17/2025 3:30 AM EST Cydney Wray RN Speech/Language Clear 01/17/2025 3:30 AM EST Cydney Wray RN * Weight in (lb) to have BMI = 25 Answer Date of Assessment Author 140.8 01/16/2025 3:05 PM Juan Voss RN * Pain Type Answer Date of Assessment Author Acute pain 01/22/2025 9:43 PM Christina Lovell RN * Pain Assessment Question Answer Date of Assessment Author Patient's Stated Pain Goal 4 01/23/2025 7:30 AM Ariadne Horner RN Patient is asleep Yes, assume pain is decreased 01/22/2025 10:43 PM Christina Lovell RN Clinical Progression Rapidly improving 01/23/2025 7:30 AM Ariadne Horner RN Pain Score 0 01/23/2025 8:30 AM Ariadne Horner RN Pain Assessment 0-10 (Adult DVPRS/Peds 0-10) 01/23/2025 8:30 AM EST Kreft, Ron K, RN * FLACC (Face, Legs, Activity, Crying, Consolability) Question Answer Date of Assessment Author Pain Rating: FLACC (Rest) - Face 0 01/17/20 5:17 PM Felisa Forrest RN Pain Rating: FLACC (Rest) - Legs 0 01/17/20 5:17 PM Felisa Forrest RN Pain Rating: FLACC (Rest) - Activity 0 01/16/2025 5:17 PM Felisa Forrest RN Pain Rating: FLACC (Rest) - Cry 0 5:17 PM Felisa Forrest RN Pain Rating: FLACC (Rest) - Consolability 0 01/16/2025 5:17 PM Felisa Forrest RN Pain Rating: FLACC (Activity ) - Face 0 01/16/2025 5:17 PM Felisa Forrest RN Pain Rating: FLACC (Activity ) - Legs 0 01/16/2025 5:17 PM Felisa Forrest RN Pain Rating: FLACC (Activity) 0 01/16/2025 5:17 PM Felisa Forrest RN Pain Rating: FLACC (Activity ) - Cry 0 01/16/2025 5:17 PM Felisa Forrest RN Pain Rating: FLACC (Activity ) - Consolability 0 01/16/2025 5:17 PM Felisa Forrest RN * Score: FLACC (Rest) Answer Date of Assessment Author 0 01/16/2025 5:17 PM Sylvia Forrest RN * Score: FLACC (Activity) Answer Date of Assessment Author 0 01/16/2025 5:17 PM Sylvia Forrest RN * Nutrition Question Answer Date of Assessment Author Fluid Restrictions none 01/21/2025 7:00 AM EST Alysa Quinn Diet Type Regular;Consistent C arb 2 01/23/2025 8:00 AM EST Ariadne Adame RN Feeding Able to feed self 01/23/2025 8:00 AM EST Ariadne Adame RN Appetite Good 01/23/2025 8:00 AM EST Ariadne Adame RN * 4-Eyes Skin Assessment Question Answer Date of Assessment Author 4 Eyes Skin Assessment Completed Yes 01/16/2025 1:05 AM Cydney Garcia R N Manual Dual Sign Off 2nd RAI Rm RN 01/16/2025 1: 05 AM Cydney Garcia RN * Respiratory Interventions Question Answer Date of Assessment Author Respiratory Interventions Incentive Spir ometer (IS) 01/19/2025 11:38 AM Scar Shahid RN * Patient Belongings at Bedside Question Answer Date of Assessment Author Vision - Corrective Lenses Glasses 01/15/2025 10: 00 PM Cydney Garcia RN Jewelry Ring 01/16/2025 3:04 PM Kingsley Pugh RN Belongings at Bedside Jewelry 01/16/2025 3:04 PM Kingsley Voss RN * Patient Belongings Sent Home Question Answer Date of Assessment Author Belongings Sent Home None 01/15/2025 10:00 PM Cydney Garcia RN Patient Electronics Cell phone 01/15/2025 10:00 PM Cydney Espinoza RN * Patient Belongings Sent to Safe/Security Question Answer Date of Assessment Author Belongings Sent to Safe/Security None 01/16/20 10:00 PM Cydney Garcia RN * Integumentary Question Answer Date of Assessment Author Skin Color Pale 01/23/2025 8:00 AM Ariadne Horner RN Skin Condition/Temp Warm;Dry 01/23/2025 8:00 AM Ariadne Palmer RN Skin Integrity Excoriation;Bruising 01/23/2025 8:00 AM Ariadne Horner RN Skin Turgor Non-tenting 01/21/2025 4:00 PM David Alfaro RN Bruising Characteristics Scattered 01/23/2025 8:00 AM Ariadne Horner RN Integumentary (WDL) X 01/23/2025 8:00 AM Ariadne Palmer RN * Confusion Assessment Method-ICU (CAM-ICU/PCAM-ICU) Question Answer Date of Assessment Author Feature 1: Acute Onset or Fluctuating Course Negative 01/23/2025 8:00 AM Ariadne Horner RN Feature 3: Altered Level of Consciousness Negative 01/23/2025 8:00 AM Ariadne Horner RN * Overall CAM-ICU/PCAM-ICU Answer Date of Assessment Author Negative 01/23/2025 8:00 AM Griselda Horner ea, RN * Sedation Scales Question Answer Date of Assessment Author RASS 0 01/23/2025 8:00 AM Ariadne Horner RN * Urine Output/Assessment Question Answer Date of Assessment Author Bladder Scan Volume (mL) 764 01/20/2025 1:08 AM Everton Corea RN Post Void Cath Residual (mL) 0 01/19/2025 2 :00 PM Scar Shahid RN Intermittent/Straight Cath (mL) 850 2:00 PM Scar Shahid RN * Stool Output/Assessment Question Answer Date of Assessment Author Unmeasured Stool Occurrence (hourly total) 1 01/22/2025 7:48 AM Felisa Sidhu RN Stool Color Brown 01/21/2025 5:30 PM David Alfaro RN Stool Amount Large 01/21/2025 5:30 PM David Alfaro RN Stool Appearance Formed 01/21/2025 5:30 PM David Pond RN [facility] Wipes Used Yes 01/23/2025 8:00 AM Ariadne Horner RN Bowel Incontinence No 01/22/2025 7:48 AM Felisa Sidhu RN * Patient Specific Goals Question Answer Date of Assessment Author Patient/Family-Specific Goals (Include Timeframe) Pt will have all questions surrounding discharge answered by the end of this shift 01/23/2025 8:00 AM Ariadne Horner RN Individualized Care Needs Education 2024 8:00 AM Ariadne Horner RN Anxieties, Fears or Concerns Ptis ready for discharge 01/23/2025 8:00 AM Ariadne Horner RN * Delirium Assessment Question Answer Date of Assessment Author Delirium Prevention & Management Yes 01/23/2025 8:00 AM Ariadne Horner RN Delirium Prevention & Management: Early Mobility Educate patient and family about the benfits of early mobility in the hospital 01/23/2025 8:00 AM Ariadne Horner RN Delirium Prevention & Management: Cognitive Engagement Delirium prevention education provided to patient and family 01/23/2025 8:00 AM Ariadne Horner RN Delirium Prevention & Management: Optimize Sleep/Wake Cycles Educate patient and family about optimizing sleep 01/23/2025 8:00 AM Ariadne Horner RN Acute Onset and Fluctuating Course (1A) No 01/23/2025 8:00 AM Ariadne Horner RN Delirium Scale Used Confusion Assessment Method ICU/ PCAM ICU 01/23/2025 8:00 AM Ariadne Horner RN * Assume Pain is Present Answer Date of Assessment Author No 01/20/2025 8:18 PM Christina Lovell RN * Malnutrition Screening Tool (MST) Question Answer Date of Assessment Author Have you recently lost weigh t without trying? 0 01/15/2025 10:00 PM Cydney Garcia RN Have you been eating poorly because of a decreased appetite? 1 01/15/2025 10:00 PM Manjinder Garcia RN * Weight Loss Score Answer Date of Assessment Author 0 01/15/2025 10:00 PM Cydney Garcia RN * Malnutrition Score Answer Date of Assessment Author 1 01/15/2025 10:00 PM Cydney Garcia RN * Respiratory Assessment Question Answer Date of Assessment Author Artificial airway present Yes 01/16/2025 5:17 PM Felisa Forrest RN Respiratory Pattern Regular 01/16/2025 5 :17 PM Felisa Forrest RN Chest Assessment Symmetrical;Chest expansion symmetrical 01/16/2025 5:17 PM Felisa Forrest RN * Micheal Index Question Answer Date of Assessment Author Feeding 5 01/18/2025 11:05 AM EST Swetha more, Dianelys Bathing 0 01/18/2025 11:05 AM EST Swetha more, Dianelys Grooming 5 01/18/2025 11:05 AM EST Swetha more, Dianelys Dressing 5 01/18/2025 11:05 AM EST Swetha more, Dianelys Bowels 5 01/18/2025 11:05 AM EST Swetha more, Dianelys Bladder 0 01/18/2025 11:05 AM EST Swetha more, Dianelys Toilet Use 0 01/18/2025 11:05 AM Dianelys Guan Transfers (Bed to Chair and Back) 5 025 11:05 AM Dianelys Benson Mobility (on Level Surfaces) 0 01/18/2025 1 1:05 AM Dianelys Benson Stairs 0 01/18/2025 11:05 AM Dianelys Guan Total Score 25 01/18/2025 11:05 AM Dianelys Guan * Standardized Tests Question Answer Date of Assessment Author Standardized Tests Micheal Index 01/18/2025 11:05 AM E Dianelys Brown * Rocco/Cubbin Scale Question Answer Date of Assessment Author Age (years) 1 01/23/2025 8:00 AM Ariadne Horner RN Hemodynamics 4 01/23/2025 8:00 AM Ariadne Horner RN Weight/Tissue Viability 3 01/23/2025 8:00 A M Ariadne Horner RN Respiration 4 01/23/2025 8:00 AM Ariadne Horner RN Past Medical History 2 01/23/2025 8:00 AM Ariadne Woods RN Oxygen Requirments 4 01/23/2025 8:00 AM Ariadne Horner RN General Skin Condition 2 01/23/2025 8:00 AM Ariadne Horner RN Nutrition 4 01/23/2025 8:00 AM Ariadne Horner RN Medical Condition 4 01/23/2025 8:00 AM Ariadne Horner RN Incontinence 4 01/23/2025 8:00 AM Ariadne Horner RN Mobility 3 01/23/2025 8:00 AM Ariadne Horner RN Hygiene 1 01/23/2025 8:00 AM Ariadne Horner RN Deduction if patient has bee n in surgery or transported to CT, MRI, or HBOT during last 48 hours 0 01/23/2025 8:00 AM Ariadne Horner RN Deduction if patient has req uired blood or clotting factors during last 24 hours 0 01/23/2025 8:00 AM Ariadne Horner RN Deduction if patient has hyp othermia of 35 C or under (core temp) 0 01/23/2025 8:00 AM Ariadne Horner RN Jackson/Debra Pressure Risk Score 36 2024 8:00 AM Ariadne Horner RN * Elopement Risk Screen Question Answer Date of Assessment Author Does the patient exhibit any of the following behaviors? No 01/23/2025 8:00 AM Ariadne Horner R N Does the patient have a cour t ordered legal guardian? No 01/23/2025 8:00 AM Ariadne Horner RN * Manual Muscle Testing - LLE Question Answer Date of Assessment Author Manual Muscle Testing WFL 01/18/2025 11:05 AM Dianelys Benson * Manual Muscle Testing - RUE Question Answer Date of Assessment Author Manual Muscle Testing - RUE WFL 01/18/2025 11 :05 AM Dianelys Benson * Manual Muscle Testing - LUE Question Answer Date of Assessment Author Manual Muscle Testing - LUE WFL 01/18/2025 11 :05 AM Dianelys Benson * Dynamic Sitting Balance Question Answer Date of Assessment Author Level of Assistance Moderate assistance 01/19/20 25 11:05 AM Dianelys Benson Dynamic Sitting-Balance Support Right upper extremity support;Left upper extremity support;Feet unsupported 01/18/2025 11:05 AM Dianelys Benson Dynamic Sitting-Balance Trunk control activities 01/18/2025 11:05 AM Dianelys Benson * Cognition Question Answer Date of Assessment Author Mood/Behavior Alert 01/18/2025 11:00 AM Dianelys Benson Orientation Level Oriented X4 01/18/2025 11: 00 AM Dianelys Benson Overall Cognitive Status WFL 025 11:00 AM Dianelys Benson Arousal/Alertness Delayed responses to stimuli 01/18/2025 11:00 AM Dianelys Benson Method of Communication Verbal 01/19/20 25 11:00 AM Dianelys Benson Single Step Commands Consistently;With increased time 01/18/2025 11:00 AM Dianelys Benson Multi-Step Commands Consistently;With increased time;With repetition 01/18/2025 11:00 AM Dianelys Benson * Static Sitting Balance Question Answer Date of Assessment Author Static Sitting-Level of Assistance Minimum assistance 01/18/2025 11:05 AM Dianelys Benson Static Sitting-Balance Support Right upper extremity support;Left upper extremity support;Feet unsupported 01/18/2025 11:05 AM Dianelys Benson * Static Standing Balance Question Answer Date of Assessment Author Static Standing-Level of Assistance Moderate assistance 01/18/2025 11:05 AM Dianelys Benson Static Standing-Balance Support Right upper extremity support;Left upper extremity support 01/18/2025 11:05 AM Dianelys Benson * OT Assessment Question Answer Date of Assessment Author OT Assessment Results Impaired ADL performance;Impaired IADL performance;Impaired judgment during ADL;Decreased endurance/ventilation/ga s exchange;Impaired executive function;Impaired functional mobility;Decreased gross motor control/coordination;Imp aired postural/trunk control;Impaired balance 01/18/2025 11:05 AM Dianelys Benson Occupational Profile Expanded review of medical/therapy records and additional review of physical, cognitive, or psychosocial history 01/18/2025 11:05 AM Dianelys Benson Clinical Decision Making Moderate 01/18/2025 11:05 AM Dianelys Benson Barriers to Discharge Comorbidities 01/18/2025 11:05 AM Dianelys Benson Overall Eval complexity Moderate 01/19/20 25 11:05 AM Dianelys Benson Evaluation/Treatment Tolerance Patient limited by fatigue 01/18/2025 11:05 AM Dianelys Benson Rehab Potential Good, to achieve [facility] therapy goals 01/18/2025 11:05 AM Dianelys Benson Performance Deficits Activities of daily living (ADLs);Instrumental activities of daily living (IADLs);Rest and sleep;Body functions;Body structures;Motor skills;Process skills;Habits;Routines;R oles;Personal;Physical 01/18/2025 11:05 AM Dianelys Benson * C-SSRS (Frequent Screener) Question Answer Date of Assessment Author Is patient awake, alert, and able/willing to answer questions appropriately? Yes 01/23/2025 8:00 AM Ariadne Horner, RAI 1. Wish to be (Past 1 Month) No 025 8:00 AM Ariadne Horner, RAI 2. Non-Specific Active Suici christie Thoughts (Past 1 Month) No 01/23/2025 8:00 AM Ariadne Horner RN 6. Suicidal Behavior (Lifetime) No 8:00 AM Ariadne Horner, RAI * Discharge Planning Continued Question Answer Date of Assessment Author Transportation Home at Discharge Other(Comment) 01/23/2025 10:09 AM Amanda Ford RN * [facility] 6-Clicks Mobility Assessment Question Answer Date of Assessment Author Difficulty patient has turni ng over in bed (including adjusting bedclothes, sheets, and blankets)? 2 01/18/2025 10:24 AM EST Micheal Chopra Difficulty patient has sitti ng down on and standing up from a chair with arms (wheelchair, bedside commode, etc.)? 2 01/18/2025 10:24 AM Alena Roque Difficulty patient has movin g from lying on back to sitting on the side of the bed? 2 01/18/2025 10:24 AM Katelyn Roque How much help does the patie nt need moving to and from a bed to a chair (including a wheelchair)? 2 01/18/2025 10:24 AM EST Micheal Hidalgo How much help does the patie nt need to walk in hospital room? 2 01/18/2025 10:24 AM EST Micheal Silvestre How much help does the patie nt need climbing 3-5 steps with a railing? 2 01/18/2025 10:24 AM Katelyn Roque [facility] 6-Clicks Mobility Asse ssment Total 12 01/18/2025 10:24 AM Katelyn Roque documented as of this encounter Mental Status * Pre-op Phone Call Discharge Planning Question Answer Entry Date Author Patient expects to be discha rged to: home 01/16/2025 2:54 PM Kingsley Voss RN * Time Calculation Question Answer Entry Date Author Start Time 75652 01/18/2025 11:05 AM Dianelys Guan Stop Time [id number] 01/18/2025 11:05 AM Dianelys Guan Time Calculation (min) 45 01/18/2025 11:05 A M Dianelys Benson * OT Therapeutic Procedures Time Entry Question Answer Entry Date Author Self Care/Home Management (A DLs) Time Entry 15 01/18/2025 11:05 AM Marielos Benson * HEENT Question Answer Entry Date Author HEJERRY (WDL) X 01/23/2025 8:00 AM Ariadne Horner RN R Eye Mildly impaired vision 01/23/2025 8:00 AM Ariadne Horner RN L Eye Mildly impaired vision 01/23/2025 8:00 AM Ariadne Horner RN R Ear Mildly impaired hearing 01/23/2025 8:00 A M Ariadne Horner RN L Ear Moderately impaired hearing 01/23/2025 8: 00 AM Ariadne Horner RN Teeth Missing teeth 01/23/2025 8:00 AM Ariadne Giles RN * BMI (Calculated) Answer Entry Date Author 37.7 01/22/2025 6:00 AM Nancy Kuhn h * Percent Excess Weight Loss Answer Entry Date Author 0 01/16/2025 3:05 PM Juan Voss RN * Total Weight Change Percent Answer Entry Date Author 22201/22/2025 6:00 AM Nancy Kuhn * Weight Change Since Preop Answer Entry Date Author 96.28 01/22/2025 6:00 AM Nancy Kuhn * Initial Excess Weight Answer Entry Date Author -52.16 01/16/2025 3:05 PM Juan Voss RN * IBW in lbs (Bariatric) Answer Entry Date Author 115 01/16/2025 3:05 PM Juan Voss RN * Weight Change Since Last Visit Answer Entry Date Author -0.32 01/22/2025 6:00 AM EST Gnau, Nancy h * IBW in kg (Bariatric) Answer Entry Date Author 52.16 01/16/2025 3:05 PM Juan Voss RN * Percent of IBW Answer Entry Date Author 6,533.74 01/16/2025 3:05 PM Juan Voss RN * EBW (kg) Answer Entry Date Author 3,406.52 01/16/2025 3:05 PM Juan Voss RN * EBW (lbs) Answer Entry Date Author 3,400.81 01/16/2025 3:05 PM Juan Voss RN * Patient Profile Question Answer Entry Date Author Referral From [facility] Initiated 01/18/2025 2: 30 PM Giancarlo Herrera Pastoral Care Provided For Patient;Spouse;Child(odalis ) 01/18/2025 2:30 PM Giancarlo Herrera Consult Reasons Initial visit 01/18/2025 2:30 PM Giancarlo Herrera * Preprocedure Normothermia Interventions Question Answer Entry Date Author Warming Blankets Applied Yes 01/16/2025 3:08 PM Kingsley Voss RN Forced Air Warming Applied No 01/16/2025 3:0 8 PM Kingsley Voss RN * Intraprocedure Normothermia Interventions Question Answer Entry Date Author Minimize Patient Exposure Yes 01/16/2025 3:56 PM Nagi Lomax RN * Progress Answer Entry Date Author no change 01/22/2025 8:51 PM Christina Lovell RN * Infection Management Answer Entry Date Author aseptic technique maintained 01/22/2025 8:51 PM Christina Lovell, RAI * Adaptive Equipment Use Answer Entry Date Author use encouraged 01/22/2025 7:56 AM Harshil Sidhu RN * Oral Nutrition Promotion Answer Entry Date Author physical activity promoted 01/22/2025 8:51 PM Christina Yeh, RAI * Fever Reduction/Comfort Measures Answer Entry Date Author lightweight bedding;lightweight clothing 025 8:51 PM Christina Lovell, RAI * Trust Relationship/Rapport Answer Entry Date Author care explained;questions encouraged;choices provided;reassurance provided;emotional support provided;thoughts/feelings acknowledged;empathic listening provided;questions answered 01/22/2025 8:51 PM Christina Lovell RN * Pressure Reduction Devices Answer Entry Date Author pressure-redistributing mattress utilized 2024 8:51 PM Christina Lovell, RAI * Nutrition Interventions Answer Entry Date Author food preferences provided 01/22/2025 8:51 PM Christina Lovell, RAI * Infection Prevention Answer Entry Date Author environmental surveillance performed;equipment surfaces disinfected;hand hygiene promoted;single patient room provided;rest/sleep promoted 01/22/2025 8:51 PM Christina Lovell, RAI * Outcome Evaluation Answer Entry Date Author POC reviewed with pt. 01/22/2025 8:51 PM Christina Head RN * Medication Review/Management Answer Entry Date Author medications reviewed 01/22/2025 8:51 PM Christina Cr, RAI * Skin Protection Answer Entry Date Author incontinence pads utilized 01/22/2025 8:51 PM Christina Yeh RN * Self-Care Promotion Answer Entry Date Author independence encouraged;BADL personal objects within reach 01/22/2025 8:51 PM Christina Lovell RN * Safety Interventions Question Answer Entry Date Author Bleeding Management dressing monitored;movement restricted 01/18/2025 8:00 AM Felisa Sidhu RN * Gastrointestinal Care Question Answer Entry Date Author Nausea/Vomiting Interventions nausea triggers minimized 01/18/2025 8:00 AM Felisa Sidhu RN * Skin Interventions Question Answer Entry Date Author Pressure Reduction Techniques frequent weight shift encouraged;heels elevated off bed;positioned off wounds;pressure points protected;rest period provided between sit times 01/22/2025 7:48 AM Felisa Sidhu RN * Goal: Anesthesia/Sedation Recovery Question Answer Entry Date Author Outcome Anesthesia/Sedation Recovery met 01/16/2025 6:15 PM Felisa Forrest RN * Respiratory Interventions Question Answer Entry Date Author Airway/Ventilation Management calming measures promoted;position adjusted;oxygen therapy provided 01/18/2025 8:00 AM Felisa Sidhu RN * Activity and Hygiene Care Question Answer Entry Date Author Oral Care oral rinse provided 01/22/2025 7:48 AM Felisa Chery RN * Discharge Needs Assessment Question Answer Entry Date Author Discharge Facility/Level of Care Needs [facility] 01/23/2025 10:09 AM Amanda Ford RN Equipment Needed After Discharge other (see comments) 01/23/2025 10:09 AM Amanda Ford RN Discharge Coordination/Progress Going to [facility] 01/23/2025 10:09 AM Amanda Ford RN Equipment Currently Used at Home walker, rollator;shower chair 01/23/2025 10:09 AM Amanda Ford RN Current Outpatient/Agency/Support Group clinic(s);DME 01/23/2025 10:09 AM Amanda Ford RN Anticipated Changes Related to Illness none 01/23/2025 10:09 AM Amanda Ford RN Concerns Comments Patient is going to [facility] where they can assist with care coordination. 01/23/2025 10:09 AM Amanda Ford RN Transportation Anticipated other (see comments) 01/23/2025 10:09 AM Amanda Ford RN Outpatient/Agency/Support Group Needs usp facility;OT, PT, [employer] 01/23/2025 10:09 AM Amanda Ford RN Transportation Concerns none 01/24/20 25 10:09 AM Amanda Ford RN Current Discharge Risk chronically ill 10:09 AM Amanda oFrd RN Concerns to be Addressed no discharge ne eds identified;denies needs/concerns at this time;care coordination/care conferences 01/23/2025 10:09 AM Amanda Ford RN Readmission Within the Last 30 Days no previous admission in last 30 days 01/23/2025 10:09 AM Amanda Ford RN Patient/Family Anticipated Services at Transition rehabilitation services;[facility] 01/23/2025 10:09 AM Amanda Ford RN Patient's Choice of Community Agency(s) [facility] 01/23/2025 10:09 AM Amanda Ford RN Patient/Family Anticipates Transition to other (see comments) 01/23/2025 10:09 AM Amanda Ford RN Offered/Gave Vendor List yes 025 10:09 AM Amanda Ford RN Does the patient need discharge transport arranged? Yes 01/23/2025 10:09 AM Amanda Ford RN Has discharge transport been arranged? Yes 01/23/2025 10:09 AM Amanda Ford RN What day is the transport expected? [id number] 01/23/2025 10:09 AM Amanda Ford RN What time is the transport expected? [id number] 01/23/2025 10:09 AM Amanda Ford RN Who is requesting discharge planning? Provider 01/23/2025 10:09 AM Amanda Ford RN * Goal: Optimal Comfort and Wellbeing Question Answer Entry Date Author Outcome Optimal Comfort and Wellbeing met 01/16/2025 6:15 PM Felisa Forrest RN Elevated Risk Identified pain;situationa l anxiety 01/16/2025 5:31 PM Felisa Forrest RN * Goal: Minimized Risk/Safety Maintenance Question Answer Entry Date Author Elevated Risk Identified infection;proce dure- related injury;VTE (venous thromboembolism) 01/16/2025 5:31 PM Felisa Forrest RN Outcome Minimized Risk and Safety met 01/16/2025 6:15 PM Felisa Forrest RN * Goal: Physiologic Homeostasis Question Answer Entry Date Author Elevated Risk Identified bleeding;respir atory compromise;postoperat kaitlin nausea and vomiting 01/16/2025 5:31 PM Felisa Forrest RN Outcome Physiologic Homeostasis met 01/16/2025 6:15 PM Felisa Forrest RN * Weight Change 24 hrs Answer Entry Date Author -.316 01/22/2025 6:00 AM Nancy Kuhn * Precautions Question Answer Entry Date Author Medical Precautions Fall precautions;Sei zure precautions 01/18/2025 11:05 AM Dianelys Benson * Participants in Care Question Answer Entry Date Author Glass Lathe Operator N/A 01/18/2025 11:05 AM Dianelys Guan * Presentation Question Answer Entry Date Author Lines and Tubes PICC;Intravenous access;Telemetry 01/18/2025 11:05 AM Dianelys Benson Pre-Session Comments RN consented to treatment 01/18/2025 11:05 AM Dianelys Benson Post-Session Comments All needs met 01/18/2025 11:05 AM Dianelys Benson * Delirium Assessment Question Answer Entry Date Author CAM-ICU/PCAM-ICU No 01/18/2025 11:05 AM Dianelys Benson * General Question Answer Entry Date Author Next PT Re-Assessment Date [id number] 01/18/2025 10: 24 AM Micheal Roque Date of PT Session [id number] 01/18/2025 10:24 AM Micheal Hilliard * PT Assessment Question Answer Entry Date Author History Profile 3 or more personal f actors and/or comorbidities 01/18/2025 10:24 AM Micheal Roque Evaluation/Treatment Tolerance Patient limited by fatigue 01/18/2025 10:24 AM Micheal Roque Diagnosis Decreased functional mobility 01/18/2025 10:24 AM Micheal Roque Clinical Presentation Evolving clinical presentation with changing characteristics 01/18/2025 10:24 AM Micheal Roque Clinical Decision Making Moderate complexity 12/2024 10:24 AM Micheal Roque Rehab Potential Good, to achieve sta chantelle therapy goals 01/18/2025 10:24 AM Micheal Roque Activity Tolerance Tolerates 30 min act ivity with multiple rests 01/18/2025 10:24 AM Micheal Roque * HLM Score Question Answer Entry Date Author HLM Daily Mobility Goal 2 01/19/2025 8:0 0 AM Scar Shahid RN HLM Daily Mobility Score 2 01/19/2025 8: 00 AM Scar Shahid RN * Plan of Care Reviewed With Answer Entry Date Author patient 01/22/2025 8:51 PM Christina Lovell, RAI * Pressure Injury Prevention (PIP) Interventions Question Answer Entry Date Author Pressure Reducing Devices Specialty bed;Pillow 01/22/2025 8:18 PM Christina Lovell, RAI Bed Type Acute Care Bed 01/23/2025 8:00 AM Ariadne Horner RN * Vital Signs Question Answer Entry Date Author BP 150/70 01/23/2025 11:25 AM EST Inte rface, Doc Flowsheet In Temp 98.1 01/23/2025 11:25 AM EST Inte rface, Doc Flowsheet In Pulse 66 01/23/2025 11:25 AM EST Inte rface, Doc Flowsheet In MAP (mmHg) 97 01/23/2025 11:25 AM EST Inte rface, Doc Flowsheet In * Oxygen Therapy Question Answer Entry Date Author SpO2 94 01/23/2025 11:25 AM EST Inte rface, Doc Flowsheet In * Patient Observation Question Answer Entry Date Author Patient Observations 3 rings delivered t o pacu by kingsley grewal rn. this rn placed rings in container at bedside with pt and will be sent with pt back to room. 01/16/2025 5:40 PM Felisa Forrest RN * Vitals Question Answer Entry Date Author Heart Rate Source Monitor 01/22/2025 8:18 PM Christina Lovell RN * Neurological Question Answer Entry Date Author Level of Consciousness Alert 8:00 AM Ariadne Horner RN Orientation Level Oriented X4 01/23/2025 8:0 0 AM Ariadne Horner RN Cognition Appropriate judgement;Appropriate safety awareness;Appropriate attention/concentration;Ap propriate for developmental age;Follows commands 01/23/2025 8:00 AM Ariadne Horner RN Speech Clear 01/23/2025 8:00 AM Ariadne Horner RN L Pupil Reaction Brisk 01/23/2025 8:00 AM Ariadne Horner RN L Pupil Size (mm) 3 01/23/2025 8:0 0 AM Ariadne Horner RN R Pupil Reaction Brisk 01/23/2025 8:00 AM EST Ariadne Adame RN R Pupil Size (mm) 3 01/23/2025 8:0 0 AM EST Ariadne Adame RN LUPenny Motor Response Responds to commands 01/18/20 3:30 AM EST Cydney Valiente RN LUE Sensation Full sensation 01/23/2025 8:00 AM Ariadne Horner RN LLE Motor Response Responds to commands 01/18/20 3:30 AM Cydney Garcia RN LLE Sensation Full sensation 01/23/2025 8:00 AM Ariadne Horner RN RUE Motor Response Responds to commands 01/18/20 3:30 AM Cydney Garcia RN RUE Sensation Full sensation 01/23/2025 8:00 AM Ariadne Horner RN RLE Motor Response Responds to commands 01/18/20 3:30 AM Cydney Garcia RN RLE Sensation Full sensation 01/23/2025 8:00 AM Ariadne Horner RN Neuro (WDL) WDL 01/23/2025 8:00 AM Ariadne Horner RN Swallow Able to swallow bruna ds and liquids without difficulty 01/19/2025 4:00 PM Scar Shahid RN R Hand Grasp Moderate 01/17/2025 3:30 AM Cydney Garcia RN L Hand Grasp Moderate 01/17/2025 3:30 AM Cydney Garcia RN R Foot Dorsiflexion Moderate 01/17/2025 3 :30 AM Cydney Garcia RN L Foot Dorsiflexion Moderate 01/17/2025 3 :30 AM Cydney Garcia RN R Pupil Shape Round 01/23/2025 8:00 AM Ariadne Horner RN L Pupil Shape Round 01/23/2025 8:00 AM Ariadne Horner RN RUE Motor Strength Normal power 01/17/2025 3: 30 AM Cydney Garcia RN LUE Motor Strength Normal power 01/17/2025 3: 30 AM Cydney Garcia RN RLE Motor Strength Can overcome resistance 01/17 3:30 AM Cydney Garcia RN LLE Motor Strength Can overcome resistance 01/17 3:30 AM Cydney Garcia RN Pupil Assessment Yes 01/23/2025 8:00 AM Ariadne Horner RN * Cardiac Question Answer Entry Date Author Cardiac Rhythm NSR 01/19/2025 4:00 PM Scar Shahid RN Ectopy Premature ventricula r contractions 01/23/2025 4:20 AM Christina Lovell RN Ectopy Frequency Rare 01/23/2025 4:20 AM Christina Lovell RN Cardiac Regularity Regular 01/23/2025 8: 00 AM Ariadne Horner RN Cardiac (WDL) X 01/23/2025 8:00 AM Ariadne Horner RN Heart Sounds S1, S2 01/23/2025 8:00 AM Ariadne Horner RN Jugular Venous Distention (JVD) No 01/23/2025 8:00 AM Ariadne Horner RN * Associate Quality Engineer Question Answer Entry Date Author Telemetry Strip Reviewed Yes, I have reviewed and acknowledged. 01/22/2025 7:48 AM Felisa Sidhu RN Showroom Salesperson On No 01/23/2025 8:00 AM Ariadne Horner RN Telemetry Audible Yes 01/23/2025 4:2 0 AM Christina Lovell RN Telemetry Alarms Set Yes 01/23/2025 4:20 AM Christina Lovell RN Telemetry Box Number pacu #[id number] 01/16/2025 5:17 PM Felisa Forrest RN Bedside Associate Quality Engineer On No 01/23/2025 8:00 AM Ariadne Horner RN Bedside Cardiac Audible Yes 01/24/20 4:20 AM Christina Lovell RN Bedside Cardiac Alarms Set Yes 01/23/2025 4:20 AM Christina Lovell RN * Gastrointestinal Question Answer Entry Date Author Most Recent BM Date 22504 01/22/2025 8:18 PM Christina Yeh RN Gastrointestinal (WDL) WDL 01/23/2025 8:00 AM Ariadne Horner RN GI Symptoms Constipation 01/21/2025 4:00 PM David Alfaro RN * Peripheral Vascular Question Answer Entry Date Author Peripheral Vascular (WDL) X 01/23/2025 8:00 AM Ariadne Horner RN RLE Edema +1 01/23/2025 8:00 AM Ariadne Horner RN LLE Edema +1 01/23/2025 8:00 AM Ariadne Horner RN Capillary Refill Less than/equal to 2 seconds (All extremities) 01/23/2025 8:00 AM Ariadne Horner RN Pulses R radial;L radial;R pedal;L pedal 01/23/2025 8:00 AM Ariadne Horner, RN Cyanosis None 01/23/2025 8:00 AM Ariadne Horner RN Edema Right lower extremity;Left lower extremity 01/23/2025 8:00 AM Ariadne Horner RN PVS Additional Assessments RUE;RLE;LUE;LLE 01/16/2025 5:17 PM Felisa Forrest RN * RUPenny Neurovascular Assessment Question Answer Entry Date Author RUE Capillary Refill Less than/equal to 2 seconds 01/16/2025 5:30 PM Felisa Forrest RN RUE Color Appropriate for ethnicity 01/16/2025 5:30 PM Felisa Forrest RN RUE Temperature/Moisture Warm;Dry 01/16/2025 5:30 PM Felisa Forrest RN R Radial Pulse +2 01/23/2025 8:00 AM Ariadne Horner RN RUE Movement Decreased 01/17/2025 8:00 AM EST Ofelia Osei RN * LUPenny Neurovascular Assessment Question Answer Entry Date Author LUE Capillary Refill Less than/equal to 2 seconds 01/16/2025 5:30 PM Felisa Forrest RN LUE Color Appropriate for ethnicity 01/16/2025 5:30 PM Felisa Forrest RN LUPenny Temperature/Moisture Warm;Dry 01/16/2025 5:30 PM Felisa Forrest RN L Radial Pulse +2 01/23/2025 8:00 AM EST Ariadne Adame RN LUE Movement Decreased 01/17/2025 8:00 AM EST Ofelia Osei RN * RLE Neurovascular Assessment Question Answer Entry Date Author RLE Capillary Refill Less than/equal to 2 seconds 01/16/2025 5:30 PM EST Felisa Hernandez RN RLE Color Appropriate for ethnicity 01/16/2025 5:30 PM Felisa Forrest, RN RLE Temperature/Moisture Warm;Dry 01/16/2025 5:30 PM Felisa Forrest RN R Pedal Pulse +2 01/23/2025 8:00 AM EST Ariadne Adame RN RLE Movement Decreased 01/17/2025 8:00 AM EST Ofelia Osei RN * LLE Neurovascular Assessment Question Answer Entry Date Author LLE Capillary Refill Less than/equal to 2 seconds 01/16/2025 5:30 PM Felisa Forrest, RN LLE Color Appropriate for ethnicity 01/16/2025 5:30 PM Felisa Forrest, RAI LLE Temperature/Moisture Warm;Dry 01/16/2025 5:30 PM Felisa Forrest RN L Pedal Pulse +2 01/23/2025 8:00 AM EST Ariadne Adame RN LLE Movement Decreased 01/17/2025 8:00 AM EST Ofelia Osei RN * Musculoskeletal Question Answer Entry Date Author RUE Weakness 01/23/2025 8:00 AM Ariadne Horner RN RLE Limited movement 01/23/2025 8:00 AM EST Ariadne Flood RN LUE Weakness 01/23/2025 8:00 AM Ariadne Horner RN LLE Limited movement 01/23/2025 8:00 AM EST Ariadne Flood RN Musculoskeletal (WDL) X 01/23/2025 8:00 AM EST Ariadne Adame RN * Urine Assessment Question Answer Entry Date Author Urine Color Yellow/straw 01/22/2025 8:18 PM EST Christina Contreras RN Urine Appearance Clear 01/22/2025 8:18 PM Christina Lynn RN Urine Odor No odor 01/19/2025 4:00 PM EST CalvinScar blanchard RN Urinary Incontinence Yes 01/22/2025 8:18 PM Christina Bailon, RAI * Genitalia Question Answer Entry Date Author Female Genitalia Redness 01/23/2025 8:00 AM EST Ariadne Flood RN * Psychosocial Question Answer Entry Date Author Psychosocial (WDL) WDL 01/23/2025 8:00 AM Ariadne Horner RN * Intake Question Answer Entry Date Author [address] 01/22/2025 7:00 PM Felisa Sidhu RN * Output (mL) Question Answer Entry Date Author Urine 1450 01/21/2025 6:14 AM EST Renpatricia angel Silva * Díaz Fall Risk Question Answer Entry Date Author History of Falling, Immediat e or Within 3 Months 0 01/23/2025 8:00 AM Ariadne Horner RN Secondary Diagnosis 15 01/23/2025 8:00 AM Ariadne Palmer RN Ambulatory Aid 15 01/23/2025 8:00 AM Ariadne Nguyen RN Intravenous Therapy/Heparin Lock 20 01/24/20 25 8:00 AM Ariadne Horner RN Gait/Transferring 10 01/23/2025 8:00 AM Ariadne Horner RN Mental Status 0 01/23/2025 8:00 AM Ariadne Giles RN Díaz Fall Risk Score 60 01/23/2025 8:00 AM Ariadne Horner RN * Isael Scale Question Answer Entry Date Author Sensory Perceptions 3 01/22/2025 8:52 PM Christina Yeh RN Moisture 3 01/22/2025 8:52 PM Christina Fontana RN Activity 3 01/22/2025 8:52 PM Christina Fontana RN Mobility 3 01/22/2025 8:52 PM Christina Fontana RN Nutrition 3 01/22/2025 8:52 PM Christina oFntana RN Friction and Shear 2 01/22/2025 8:52 PM Christina Lovell RN Isael Scale Score 17 01/22/2025 8:52 PM Christina Lovell RN * BSA (Calculated - sq m) Answer Entry Date Author 2.07 01/22/2025 6:00 AM Nancy Kuhn * BMI (Calculated) Answer Entry Date Author 37.62 01/22/2025 6:00 AM Nancy Kuhn h * Pain Location Answer Entry Date Author Back;Head;Neck 01/22/2025 9:43 PM EST Christina Fritz RN * Pain Orientation Answer Entry Date Author Mid;Lower 01/19/2025 9:17 PM Christina Lovell RN * Cardiac Question Answer Entry Date Author Cardiac ([facility]) [facility] 01/17/2025 4:00 PM EST Ofelia Peter RN * Respiratory Question Answer Entry Date Author Respiratory ([facility]) [facility] 01/23/2025 8:00 AM EST Ariadne Adame RN * Vitals Question Answer Entry Date Author Temp src Oral 01/23/2025 11:25 AM EST Benji Neville Resp 16 01/23/2025 11:25 AM EST Benji Neville Weight 3396.85 01/22/2025 6:00 AM EST Alice Garber O2 Flow Rate (L/min) 1 01/23/2025 7:39 AM E Benji Quiñonez BP Location Right arm 01/23/2025 11:25 AM EST Camila virk, Benji BP Method Automatic 01/23/2025 11:25 AM EST Camila virk Benji Pulse Oximetry Type Intermittent 01/23/2025 11:25 AM E Benji Quiñonez Patient Activity During SpO2 Measurement At rest 01/23/2025 11:25 AM EST Benji Gilbert Oxygen Therapy None 01/23/2025 11:25 AM EST Fl Benji knapp O2 Delivery Method Nasal cannula 01/23/2025 7:39 AM ES Benji Hill Patient Position Lying 01/23/2025 11:25 AM EST Benji Gilbert * Point of Care Tests Question Answer Entry Date Author Provider Role Hospitalist 01/20/2025 1:27 AM Christina Lovell RN Blood Glucose Meter 147 01/23/2025 8 :18 AM Benji Monterroso Provider Name Kimberly Pfeiffer 01/20/2025 1:27 AM Christina Lovell RN Method of Communication Secure message 01/21/20 1:27 AM Christina Lovell RN Response See orders 01/20/2025 1:27 AM Christina Lovell RN Name of Nurse Notified of Blood Glucose Results (First and Last) Lew Adame RN 01/23/2025 8:18 AM Benji Monterroso Glucose Sample Retrieved From Finger stick 8:18 AM Benji Monterroso * Vision - Basic Assessment Question Answer Entry Date Author Baseline Vision Glasses distance;Gla sses reading 01/18/2025 11:00 AM Dianelys Benson Tracking Intact 01/18/2025 11:00 AM Dianelys Guan Visual History Cataracts 01/18/2025 11:00 AM Dianelys Farmer * Patient Information Question Answer Entry Date Author Primary Caregiver Self 01/16/2025 10: 20 AM Amanda Ford RN Accompanied by/Relationship spouse 10/2024 10:20 AM Amanda Ford RN Support System Immediate family 01/16/2025 10:2 0 AM Amanda Ford RN Patient's Education Level High school 2024 10:20 AM Amanda Ford RN * Activities of Daily Living Question Answer Entry Date Author Functional Status Independent 01/16/2025 10: 20 AM Amanda Ford RN Living Arrangements Spouse/Significant other 10/2024 10:20 AM Amanda Ford RN Type of Residence Private residence; lti Level 01/16/2025 10:20 AM Amanda Ford RN Smoker in the Home? Yes 01/16/2025 1 0:20 AM Amanda Ford RN * Income Information Question Answer Entry Date Author Income Source Retired 01/16/2025 10:20 AM Amanda Ford RN Income/Expense Information Income meets expenses 01/16/2025 10:20 AM Amanda Ford RN Current Resources Utilized None 01/16/2025 10:20 AM Amanda Ford RN * Advance Directives (For Healthcare) Question Answer Entry Date Author Advance Directive Patient has advance directive, copy not in chart 01/15/2025 9:00 PM Cydney Garcia RN Advance Directive not in Chart Copy requested from family 01/15/2025 9:00 PM Cydney Garcia RN Pre-existing DNR/DNI Order No 01/15/2025 9:00 PM Cydney Garcia RN Information Provided on Healthcare Directives No 01/15/2025 9:00 PM Cydney Garcia RN Patient Requests Assistance No 01/15/2025 9:00 PM Cydney Garcia RN Have you reviewed your Advance Directive and is it valid for this stay? No 01/15/2025 9:00 PM Cydney Garcia RN * Nutrition Screen Question Answer Entry Date Author Difficulty Chewing or Swallowing Yes (Comment) 01/15/2025 10:00 PM Cydney Garcia RN Burn, Pressure Injury, or Non-Healing Wound No 01/15/2025 10:00 PM Cydney Garcia RN Home Tube Feeding or Total Parenteral Nutrition (TPN) No 01/15/2025 10:00 PM Cydney Garcia RN Food allergy, Yarsani, or Cultural nutrition needs No 01/15/2025 10:00 PM Manjinder Garcia RN * Pain Descriptors Answer Entry Date Author Aching;Discomfort 01/22/2025 9:43 PM Christina Lovell RN * Pain Onset Answer Entry Date Author Gradual 01/22/2025 9:43 PM Christina Lovell RN * Pain Frequency Answer Entry Date Author Intermittent 01/22/2025 9:43 PM Christina Lovell RN * Trauma/Abuse Assessment Question Answer Entry Date Author Physical Abuse Denies 01/15/2025 10:00 PM Cydney Carlos RN Verbal Abuse Denies 01/15/2025 10:00 PM Cydney Franks RN * Values/Beliefs Question Answer Entry Date Author Cultural Requests During Hospitalization accepts blood products 01/16/2025 3:05 PM Kingsley Voss RN Spiritual Requests During Hospitalization denies 01/15/2025 10:00 PM Cydney Garcia RN Unable to assess Yes 01/15/2025 10:0 0 PM Cydney Garcia RN * Genitourinary Question Answer Entry Date Author Genitourinary (WDL) X 01/23/2025 8:00 AM Ariadne Palmer RN Genitourinary Symptoms Sanz catheter 01/23/2025 8:00 AM Ariadne Horner RN * Neurological Question Answer Entry Date Author Neuro (WDL) WDL 01/17/2025 4:00 PM Ofelia Gomes RN * Current Blood Glucose Answer Entry Date Author 147 01/23/2025 8:18 AM Griselda Horner ea, RN * Insulin Instructions: Answer Entry Date Author No dose needed. 01/23/2025 8:18 AM Griselda Horner ea, RN * Current Blood Glucose Answer Entry Date Author 230 01/22/2025 8:43 PM Christina Lovell RN * Insulin Instructions: Answer Entry Date Author No dose needed. 01/22/2025 8:43 PM Christina Lovell RN * Safe Environment Question Answer Entry Date Author 37-Pin Connection [Bed and Wall] Yes 01/23/2025 8:00 AM Ariadne Horner RN Arm Bands On ID 01/23/2025 8:00 AM Ariadne Horner RN Side Rails/Bed Safety 3/4 01/23/2025 8:00 AM Ariadne Horner RN NonSkid Footwear On;Patient in bed 01/23/2025 8: 00 AM Ariadne Horner RN The Patient's Environment is Safe Yes 01/23/2025 8:00 AM Ariadne Horner RN Head of Bed Angle 30 01/23/2025 8:0 0 AM Ariadne Horner RN Bed Foot Left Rail Up State No 01/08 8:00 AM Ariadne Horner RN Bed Head Right Rail Up State Yes 01/23/2025 8:00 AM Ariadne Horner RN Bed Head Left Rail Up State Yes 01/08 8:00 AM Ariadne Horner RN Bed Foot Right Rail Up State Yes 01/23/2025 8:00 AM Ariadne Horner RN Bed Exit System Activate Status Yes 01/23/2025 8:00 AM Ariadne Horner RN Bed Brake State Yes 01/23/2025 8:00 AM Ariadne Horner RN Bed Low Height State Yes 01/23/2025 8:00 AM Ariadne Horner RN Chair Exit System Activate Status No 01/23/2025 4:18 AM Christina Lovell RN * Fall Risk Interventions Question Answer Entry Date Author Safety Promotion/Fall Prevention activity supervised;assistive device/personal items within reach;clutter-free environment maintained;fall prevention program maintained;lighting adjusted;mobility aid in reach;nonskid shoes/slippers when out of bed;room organization consistent;safety round/check completed;toileting scheduled 01/23/2025 8:00 AM Ariadne Horner RN Enhanced Safety Measures bed alarm set;r oom near unit station 01/23/2025 8:00 AM Ariadne Horner RN Toilet Every 2 Hours-In Advance of Need Yes 01/23/2025 8:00 AM Ariadne Horner RN Hourly Visual Checks Awake;In bed 01/23/2025 8:00 AM Ariadne Horner RN Room Door Open Deferred to decrease stimulation 01/23/2025 8:00 AM Ariadne Horner RN Gait Belt Used For Transfers Not applicable 01/23/2025 8:00 AM Ariadne Horner RN Fall Bundle Components Call light within reach;Personal belongings within reach;Overbed table within reach;Bed in lowest position;Bed wheels locked;Non-skid footwear on if up in chair or ambulating;Staff to remain with patient during toileting;Fall risk sign on door;Bed alarm on in zone 2 with proper weight settings;Staff to remain with patient during ambulation and tranfers 01/23/2025 8:00 AM Ariadne Horner RN * Mobility Question Answer Entry Date Author Range of Motion active ROM (range of motion) encouraged 01/23/2025 8:00 AM Aridane Horner RN Activity Management activity adjusted pe r tolerance 01/23/2025 8:00 AM Ariadne Horner RN Activity Assistance Provided assistance, 2 people 01/22/2025 8:18 PM Christina Lovell RN Body Position turned;left 01/23/2025 8:00 AM Ariadne Horner RN VTE Prevention/Management bilateral;SCDs (sequential compression devices) on 01/23/2025 8:00 AM Ariadne Horner RN Head of Bed (HOB) Positioning HOB elevated 01/23/2025 8:00 AM Ariadne Horner RN Head of Bed Elevated Self regulated 01/23/2025 8:00 AM Ariadne Horner RN Heels/Feet Heels elevated off bed 8:00 AM Ariadne Horner RN Positioning Frequency Able to turn self 01/24/20 25 8:00 AM Ariadne Horner RN * Hygiene Question Answer Entry Date Author Perineal Care absorbent pad 01/19/2025 8:00 AM Scar Shahid RN Bathing/Skin Care patient refused;education provided 01/22/2025 10:17 AM Jayy Mora Oral Care (Yes/No) Yes 01/22/2025 7: 48 AM Felisa Sidhu RN CHG (Chlorhexidine Gluconate) Hygiene Wipes 01/22/2025 7:31 AM Felisa Sidhu RN * Precautions Question Answer Entry Date Author Isolation Precautions protective;precaut ions maintained 01/23/2025 8:00 AM Ariadne Horner RN Precautions Fall risk;Environmen gautam surveillance 01/23/2025 8:00 AM Ariadne Horner RN * Family/Significant Other Communication Question Answer Entry Date Author Family/Significant Other Update Updated 2:52 PM Kingsley Voss RN * Comfort and Environment Interventions Question Answer Entry Date Author Comfort Repositioned 01/23/2025 8:00 AM Ariadne Horner RN * Safety Equipment at Bedside Question Answer Entry Date Author Standard Bedside Safety Ambu bags in hallway;Suction available, setup and working;Oxygen available and working 01/23/2025 8:00 AM Ariadne Horner RN Additional Bedside Safety Bed in locked and low position;Clutter free environment 01/23/2025 8:00 AM Ariadne Horner RN * IBW/kg (Calculated) Male Answer Entry Date Author 56.9 01/16/2025 3:05 PM Juan Voss RN * IBW/kg (Calculated) Female Answer Entry Date Author 52.4 01/16/2025 3:05 PM Juan Voss RN * Consults Question Answer Entry Date Author Integrative Medicine Consult Needed No 01/15 10:00 PM Cydney Garcia RN Pastoral Care Consult Needed No 01/15/2025 1 0:00 PM Cydney Garcia RN Social Services Consult Needed No 01/15/2025 10:00 PM Cydney Garcia RN * Therapy Consults Question Answer Entry Date Author PT Evaluation Needed 1 01/15/2025 10:00 PM Cydney Garcia RN OT Evaluation Needed 2 01/15/2025 10:00 PM Cydney Garcia RN WOOL AND PELT GRADER Evaluation Needed 2 01/15/2025 10:00 PM Cydney Garcia RN * Assistive Devices Question Answer Entry Date Author Assistive Devices Walker 01/15/2025 10:00 PM Cydney Garcia RN * PAINAD (Pain Assessment in Advanced Dementia) Question Answer Entry Date Author Pain Management Interventions declines 01/23/2025 7:30 AM Ariadne Horner RN * NPO/Void Status Question Answer Entry Date Author Time of Last Liquid 0 01/16/2025 3:07 PM Kingsley Herrera RN Time of Last Void 69615 01/16/2025 3:07 PM Kingsley Voss RN Date of Last Liquid 61532 01/16/2025 3:07 PM Kingsley Herrera RN Date of Last Solid 24901 01/16/2025 3:07 PM Kingsley Voss RN Time of Last Solid 0 01/16/2025 3:07 PM Kingsley Voss RN * Provider Notification Question Answer Entry Date Author Reason for Communication Review case 01/19/2025 3:10 AM Christina Lovell RN Notification Time 5220 01/20/2025 1:27 AM Christina Lovell RN * Hourly Rounding Question Answer Entry Date Author Hourly Rounding Complete Per Guideline Yes 01/23/2025 9:00 AM Ariadne Horner, RAI * Patient Violence Risk Assessment Question Answer Entry Date Author History of Violence: In the past 12 hours has the PATIENT exhibited any of the following? None 01/23/2025 8:00 AM Ariadne Horner RN Potential for Violence: In the past 12 hours has the PATIENT exhibited any of the following? None 01/23/2025 8:00 AM Ariadne Horner RN Risk No identified risk 01/23/2025 8:00 AM Ariadne Horner RN History of Violence: In the past 12 hours has a PARTNER IN CARE of the patient exhibited any of the following? None 01/23/2025 8:00 AM Ariadne Horner RN * Chlorhexidine Screening Question Question Answer Entry Date Author Have you ever had a rash or burn develop after a hospital procedure and/or operation or been told you have an allergy or sensitivity to chlorhexidine or pink pre-surgical soap? No 01/16/2025 3:05 PM Bravo Voss RN * Spiritual Assessment Question Answer Entry Date Author Support Systems/ Spiritual Resources Prayer 01/18/2025 2:30 PM Giancarlo Herrera Spiritual Needs Emotional support 01/18/2025 2:30 PM Giancarlo Maurer Spiritual Issues Change/ transition 01/18/2025 2:30 PM Giancarlo Herrera * Interventions Question Answer Entry Date Author Interventions Provided Introduced Patichandni t/Family to Roll Mechanic Services 01/18/2025 2:30 PM Giancarlo Herrera * Outcomes Question Answer Entry Date Author Patient Outcomes Metal Punch Press Operator Services 01/18/2025 2:30 P M Giancarlo Herrera * Follow-Up Question Answer Entry Date Author Duration 10 minutes 01/18/2025 2:30 PM Giancarlo Herrera Pastoral Care Comment Roll Mechanic made foll ow up visit with Rosa and introductory visit with her family. They are aware of Pastoral Services and availability. 01/18/2025 2:30 PM Giancarlo Herrera Last Date of Pastoral Care Contact 62543 01/18/2025 2:30 PM Giancarlo Herrera * Restart Vitals Timer Answer Entry Date Author Yes 01/23/2025 11:25 AM EST Gilbert, N oah * Injection Rate mL/s Answer Entry Date Author 2 01/16/2025 7:49 PM EST Timmy Steinberg ristopher * Height and Weight Question Answer Entry Date Author Height 63 01/16/2025 3:05 PM Kingsley Pugh RN Height Method Stated 01/16/2025 3:05 PM Kingsley Lewis RN Weight Method Stated 01/16/2025 3:05 PM Kingsley Lewis RN IBW/kg (Calculated) 52.4 01/16/2025 3:05 PM Kingsley Herrera RN * Neurological Question Answer Entry Date Author Neuro Additional Assessments Enhanced Neuro Checks 01/16/2025 5:30 PM Felisa Forrest RN Neuro ([facility]) X 01/16/2025 5:30 PM Felisa Forrest RN Hand Grasp/Motor Function/Sensation Assessment Grasp;Dorsiflexion;Mo tor response;Sensation;Mo tor strength 01/16/2025 5:30 PM Felisa Forrest RN * HEENT Question Answer Entry Date Author HEENT ([facility]) X 01/16/2025 5:17 PM Felisa Forrest RN * Cardiac Question Answer Entry Date Author Cardiac ([facility]) WDL 01/16/2025 5:17 PM Felisa Forrest RN * Gastrointestinal Question Answer Entry Date Author Gastrointestinal ([facility]) WDL 01/16/2025 5:17 PM Felisa Forrest RN * Genitourinary Question Answer Entry Date Author Genitourinary ([facility]) X 01/16/2025 5:17 PM Felisa Kapadia RN * Psychosocial Question Answer Entry Date Author Psychosocial ([facility]) WDL 01/16/2025 5:17 PM Felisa Forrest RN * Pain Assessment Question Answer Entry Date Author Pain Assessment 0-10 (Adult DVPRS/Pe ds 0-10) 01/16/2025 6:00 PM Felisa Forrest RN * Preop Holding - SSI Checklist Question Answer Entry Date Author Nasal decolonization swabs d one in preop holding? Yes 01/16/2025 3:05 PM Kingsley Voss RN * STOP-Bang Questionnaire Question Answer Entry Date Author Do you snore loudly? 0 01/15/2025 10:00 PM EST Cydney Valiente RN Do you often feel tired or f atigued after your sleep? 0 01/15/2025 10:00 PM Cydney Garcia RN Has anyone ever observed you stop breathing in your sleep? 0 01/15/2025 10:00 PM Manjinder Garcia RN Do you have or are you being treated for high blood pressure? 1 01/15/2025 10:00 PM Cydney Jung RN Is BMI greater than 35 kg/m2? 0=No 01/15/2025 10:00 PM Cydney Garcia RN Age older than 50 years old? 1=Yes 01/15/2025 1 0:00 PM Cydney Garcia RN Is your neck circumference g reater than 17 inches (Male) or 16 inches (Female)? 0 01/15/2025 10:00 PM Cydney Garcia RN Gender - Male 0=No 01/15/2025 10:00 PM Cydney Jung RN STOP-Bang Total Score 2 01/15/2025 10:00 PM Cydney Garcia RN Recent BMI (Calculated) 33 01/15/2025 10:00 PM Cydney Garcia RN * Date of PT Session Question Answer Entry Date Author PT Initials NAVEEN/ALLEN 01/18/2025 10:24 AM EST Micheal Hidalgo * HARK Concern Calculation Answer Entry Date Author 97 01/16/2025 10:19 AM Robel Ford RN * Food Insecurity Concern Calculation Answer Entry Date Author 1 01/16/2025 10:19 AM Robel Ford RN * Transportation Needs Concern Calculation Answer Entry Date Author 1 01/16/2025 10:19 AM Robel Ford RN * Housing Stability Concern Calculation Answer Entry Date Author 1 01/16/2025 10:19 AM Robel Ford RN * Utilities Concern Calculation Answer Entry Date Author 1 01/16/2025 10:19 AM Robel Ford RN * Calculated C-SSRS Risk Score (Lifetime/Recent) Answer Entry Date Author No Risk Indicated 01/23/2025 8:00 AM Ariadne Horner RN * Augusto Coma Scale Question Answer Entry Date Author Best Eye Response Spontaneous 01/23/2025 8:00 AM Ariadne Horner RN Best Verbal Response Oriented 01/23/2025 8:00 AM Ariadne Woods RN Best Motor Response Follows commands 01/23/2025 8:00 A M Ariadne Horner RN Augusto Coma Scale Score 15 01/23/2025 8:00 AM Ariadne Horner RN * Restart Pain Assessment Timer Answer Entry Date Author Yes 01/23/2025 8:30 AM Griselda Horner ea, RN * Enhanced Neuro Checks Question Answer Entry Date Author Facial Droop No 01/17/2025 3:30 AM EST Jacks on, Cydney, RN Gaze Normal 01/17/2025 3:30 AM EST Jacks on, Cydney, RN Motor - LUE No drift 01/17/2025 3:30 AM EST Jacks on, Cydney, RN Sensation (responds to stimuli) - LUE Yes 01/17/2025 3:30 AM EST Rocco, Cydney, R N Motor - RUE No drift 01/17/2025 3:30 AM EST Jacks on, Cydney, RN Sensation (responds to stimuli) - RUE Yes 01/17/2025 3:30 AM EST Rocco, Cydney, R N Motor - LLE No drift 01/17/2025 3:30 AM EST Jacks on, Cydney, RN Sensation (responds to stimuli) - LLE Yes 01/17/2025 3:30 AM EST Rocco, Cydney, R N Motor - RLE No drift 01/17/2025 3:30 AM EST Jacks on, Cydney, RN Sensation (responds to stimuli) - RLE Yes 01/17/2025 3:30 AM EST Rocco, Cydney, R N Limb Ataxia No Ataxia 01/17/2025 3:30 AM EST Jacks on, Cydney, RN Visual Teague No visual loss 01/17/2025 3:30 AM EST Cydney Wray RN Speech/Language Clear 01/17/2025 3:30 AM EST Cydney Wray RN * Weight in (lb) to have BMI = 25 Answer Entry Date Author 140.8 01/16/2025 3:05 PM EST Juan Alarcon RN * BMI (Calculated) Answer Entry Date Author 37.7 01/22/2025 6:00 AM Nancy Kuhn h * Percent Excess Weight Loss Answer Entry Date Author 0 01/16/2025 3:05 PM Juan Voss RN * Weight Change Since Preop Answer Entry Date Author 96.3 01/22/2025 6:00 AM Magda Kuhn * Initial Excess Weight Answer Entry Date Author -52.16 01/16/2025 3:05 PM Juan Voss RN * IBW in kg (Bariatric) Answer Entry Date Author 52.16 01/16/2025 3:05 PM Juan Voss RN * IBW in lb (Bariatric) Answer Entry Date Author 115 01/16/2025 3:05 PM Juan Voss RN * Weight Change Since Last Visit Answer Entry Date Author -0.32 01/22/2025 6:00 AM Nancy Kuhn h * Percent of IBW Answer Entry Date Author 185.22 01/16/2025 3:05 PM Juan Voss RN * EBW (kg) Answer Entry Date Author 44.43 01/16/2025 3:05 PM Juan Voss RN * EBW (lb) Answer Entry Date Author 98 01/16/2025 3:05 PM Juan Voss RN * Difference in Weight Since Last Visit Answer Entry Date Author -0.32 01/22/2025 6:00 AM Nancy Kuhn h * Housing Circumstances-Z Codes Question Answer Entry Date Author Housing Circumstances (selec t all that apply) None Applicable 01/16/2025 10:20 AM Amanda Ford RN * Pain Type Answer Entry Date Author Acute pain 01/22/2025 9:43 PM Christina Lovell RN * Anthropometrics Question Answer Entry Date Author Weight Change -0.33 01/22/2025 6:00 AM Alice Kuhn * Temp (in Celsius) for EAGLE IV Answer Entry Date Author 36.7 01/23/2025 11:25 AM Gurpreet Monterroso oah * Pain Assessment Question Answer Entry Date Author Patient's Stated Pain Goal 4 01/23/2025 7:30 AM Ariadne Horner RN Patient is asleep Yes, assume pain is decreased 01/22/2025 10:43 PM Christina Lovell RN Clinical Progression Rapidly improving 7:30 AM Ariadne Horner RN Pain Score 0 01/23/2025 8:30 AM Ariadne Horner RN Pain Assessment 0-10 (Adult DVPRS/Pe ds 0-10) 01/23/2025 8:30 AM Ariadne Horner RN * FLACC (Face, Legs, Activity, Crying, Consolability) Question Answer Entry Date Author Pain Rating: FLACC (Rest) - Face 0 01/17/20 5:17 PM Felisa Forrest RN Pain Rating: FLACC (Rest) - Legs 0 01/17/20 5:17 PM Felisa Forrest RN Pain Rating: FLACC (Rest) - Activity 0 01/16/2025 5:17 PM Felisa Forrest RN Pain Rating: FLACC (Rest) - Cry 0 5:17 PM Felisa Forrest RN Pain Rating: FLACC (Rest) - Consolability 0 01/16/2025 5:17 PM Felisa Forrest RN Pain Rating: FLACC (Activity ) - Face 0 01/16/2025 5:17 PM Felisa Forrest RN Pain Rating: FLACC (Activity ) - Legs 0 01/16/2025 5:17 PM Felisa Forrest RN Pain Rating: FLACC (Activity) 0 01/16/2025 5:17 PM Felisa Forrest RN Pain Rating: FLACC (Activity ) - Cry 0 01/16/2025 5:17 PM Felisa Forrest RN Pain Rating: FLACC (Activity ) - Consolability 0 01/16/2025 5:17 PM Felisa Forrest RN * Score: FLACC (Rest) Answer Entry Date Author 0 01/16/2025 5:17 PM Sylvia Forrest RN * Score: FLACC (Activity) Answer Entry Date Author 0 01/16/2025 5:17 PM EST Sylvia Hernandez, RN * Nutrition Question Answer Entry Date Author Fluid Restrictions none 01/21/2025 7:00 AM EST Alysa Quinn Diet Type Regular;Consistent C arb 2 01/23/2025 8:00 AM Ariadne Horner, RAI Feeding Able to feed self 01/23/2025 8:00 AM Ariadne Horner RN Appetite Good 01/23/2025 8:00 AM Ariadne Horner RN * 4-Eyes Skin Assessment Question Answer Entry Date Author 4 Eyes Skin Assessment Completed Yes 01/16/2025 1:05 AM Cydney Garcia R N Manual Dual Sign Off 2nd RAI Rm RN 01/16/2025 1: 05 AM Cydney Garcia RN * IBW/kg (Calculated) Answer Entry Date Author 52.4 01/16/2025 3:05 PM Juan Voss RN * Adult Low Range Vt 6mL/kg Answer Entry Date Author 314.4 01/16/2025 3:05 PM Juan Voss RN * Adult Moderate Range Vt 8mL/kg Answer Entry Date Author 419.2 01/16/2025 3:05 PM Juan Voss RN * Adult High Range Vt 10mL/kg Answer Entry Date Author 524 01/16/2025 3:05 PM Juan Voss RN * Respiratory Interventions Question Answer Entry Date Author Respiratory Interventions Incentive Spir ometer (IS) 01/19/2025 11:38 AM Scar Shahid RN * Patient Belongings at Bedside Question Answer Entry Date Author Vision - Corrective Lenses Glasses 01/15/2025 10: 00 PM Cydney Garcia RN Jewelry Ring 01/16/2025 3:04 PM Kingsley Pugh RN Belongings at Bedside Jewelry 01/16/2025 3:04 PM Kingsley Voss RN * Patient Belongings Sent Home Question Answer Entry Date Author Belongings Sent Home None 01/15/2025 10:00 PM Cydney Garcia RN Patient Electronics Cell phone 01/15/2025 10:00 PM Cydney Espinoza RN * Patient Belongings Sent to Safe/Security Question Answer Entry Date Author Belongings Sent to Safe/Security None 01/16/20 10:00 PM Cydney Garcia RN * Integumentary Question Answer Entry Date Author Skin Color Pale 01/23/2025 8:00 AM Ariadne Horner RN Skin Condition/Temp Warm;Dry 01/23/2025 8 :00 AM Ariadne Horner RN Skin Integrity Excoriation;Bruising 01/23/2025 8:00 AM Ariadne Horner RN Skin Turgor Non-tenting 01/21/2025 4:00 PM David Alfaro RN Bruising Characteristics Scattered 025 8:00 AM Ariadne Horner RN Integumentary (WDL) X 01/23/2025 8 :00 AM Ariadne Horner RN * Score Answer Entry Date Author 11.82 01/23/2025 1:13 PM EST Alena Smith * Confusion Assessment Method-ICU (CAM-ICU/PCAM-ICU) Question Answer Entry Date Author Feature 1: Acute Onset or Fluctuating Course Negative 01/23/2025 8:00 AM Ariadne Horner RN Feature 3: Altered Level of Consciousness Negative 01/23/2025 8:00 AM Ariadne Horner RN * Overall CAM-ICU/PCAM-ICU Answer Entry Date Author Negative 01/23/2025 8:00 AM Griselda Horner ea, RN * Sedation Scales Question Answer Entry Date Author Sedation Scale Used Patiño Agitation Sedation Scale 01/23/2025 8:00 AM Ariadne Horner RN RASS 0 01/23/2025 8:00 AM Ariadne Horner RN * Urine Output/Assessment Question Answer Entry Date Author Unmeasured Urine Occurrence 1 01/19/2025 9: 02 AM Scar Shahid RN Bladder Scan Volume (mL) 764 01/20/2025 1:08 AM Everton Corea RN Post Void Cath Residual (mL) 0 01/19/2025 2 :00 PM Scar Shahid RN Intermittent/Straight Cath (mL) 850 2:00 PM Scar Shahid RN Urine Amount Medium 01/19/2025 9:02 AM EST Scar Katz RN * Stool Output/Assessment Question Answer Entry Date Author Mohsen Stool Occurrence (hourly total) 1 01/22/2025 7:48 AM Felisa Sidhu RN Stool Color Brown 01/21/2025 5:30 PM David Alfaro RN Stool Amount Large 01/21/2025 5:30 PM David Alfaro RN Stool Appearance Formed 01/21/2025 5:30 PM David Pond RN Sanz Care Castile Wipes Used Yes 01/23/2025 8:00 AM Ariadne Horner RN Bowel Incontinence No 01/22/2025 7:48 AM Felisa Sidhu RN * Fall Risk Calculated Score Answer Entry Date Author Díaz 01/23/2025 8:00 AM Griselda Horner ea, RN * Patient Specific Goals Question Answer Entry Date Author Patient/Family-Specific Goals (Include Timeframe) Pt will have all questions surrounding discharge answered by the end of this shift 01/23/2025 8:00 AM Ariadne Horner RN Individualized Care Needs Education 2024 8:00 AM Ariadne Horner RN Anxieties, Fears or Concerns Ptis ready for discharge 01/23/2025 8:00 AM Ariadne Horner RN * Delirium Assessment Question Answer Entry Date Author Delirium Prevention & Management Yes 01/23/2025 8:00 AM Ariadne Horner RN Delirium Prevention & Management: Early Mobility Educate patient and family about the benfits of early mobility in the hospital 01/23/2025 8:00 AM Ariadne Horner RN Delirium Prevention & Management: Cognitive Engagement Delirium prevention education provided to patient and family 01/23/2025 8:00 AM Ariadne Horner RN Delirium Prevention & Management: Optimize Sleep/Wake Cycles Educate patient and family about optimizing sleep 01/23/2025 8:00 AM Ariadne Horner RN Acute Onset and Fluctuating Course (1A) No 01/23/2025 8:00 AM Ariadne Horner RN Delirium Scale Used Confusion Assessment Method ICU/ PCAM ICU 01/23/2025 8:00 AM Ariadne Horner RN * Assume Pain is Present Answer Entry Date Author No 01/20/2025 8:18 PM Christina Lovell RN * Follow Up Question Answer Entry Date Author [place] [address] 01/19/2025 2:53 PM EST French Pleitez ia * Deterioration Index Score Question Answer Entry Date Author Deterioration Index Score 18.63 01/23/2025 1:01 PM EST Teena Martinesq * Unplanned Readmission Scores Question Answer Entry Date Author Unplanned Readmission Score 11.81 01/23/2025 12 :00 PM EST Conrad Batchq * PRN Medication Given Reason Answer Entry Date Author pain 01/22/2025 9:43 PM Christina Lovell RN * Malnutrition Screening Tool (MST) Question Answer Entry Date Author Have you recently lost weigh t without trying? 0 01/15/2025 10:00 PM Cydney Garcia RN Have you been eating poorly because of a decreased appetite? 1 01/15/2025 10:00 PM Manjinder Garcia RN * Weight Loss Score Answer Entry Date Author 0 01/15/2025 10:00 PM Cydney Garcia RN * Malnutrition Score Answer Entry Date Author 1 01/15/2025 10:00 PM Cydney Garcia RN * Discharge Medication Bedside Delivery Question Answer Entry Date Author Meds to Beds Complete? Yes 8:21 AM Fide Lindsay, PharmD Current Status Discharge to Facility-M2 Service Not Available 01/23/2025 8:21 AM Fide Lindsay, PharmD Is the patient interested in Medication Bedside Delivery at Discharge? Yes, interested 01/23/2025 8:21 AM Fide Lindsay, PharmD * Augusto Coma Scale Numeric Answer Entry Date Author 15 01/23/2025 8:00 AM Griselda Horner ea, RN * Sub-Acute last PAC response Answer Entry Date Author accept 01/19/2025 1:59 PM EST Alex Lira * Sub-Acute Staus Answer Entry Date Author placed & closed 01/22/2025 1:21 PM EST Alex Lira * Sub-Acute Referral Sent to Answer Entry Date Author [facility] 01/22/2025 1:21 PM EST In [facility] * Elevate heels task - custom formula Answer Entry Date Author 1 01/23/2025 8:00 AM EST Griselda Adame ea, RN * Vitals Timer Question Answer Entry Date Author Restart Vitals Timer Yes 01/23/2025 11:25 AM EST Benji Gilbert * Respiratory Assessment Question Answer Entry Date Author Artificial airway present Yes 01/16/2025 5:17 PM EST Felisa Hernandez RN Respiratory Pattern Regular 01/16/2025 5:17 PM Felisa Forrest RN Chest Assessment Symmetrical;Chest expansion symmetrical 01/16/2025 5:17 PM Felisa Forrest RN Airway LDA Oral pharyngeal airway 5:17 PM Felisa Forrest RN Respiratory (WDL) WDL 01/16/2025 5:3 0 PM Felisa Forrest RN * Integumentary Question Answer Entry Date Author Integumentary (WDL) X 01/16/2025 5:17 PM ES Felisa Oconnor RN * Modified Neeta Question Answer Entry Date Author Activity 2 01/16/2025 6:00 PM Felisa Forrest RN Respiration 2 01/16/2025 6:00 PM Felisa Forrest RN Hemodynamic Stability 2 01/16/2025 6:00 PM Felisa Forrest RN Consciousness 2 01/16/2025 6:00 PM Felisa Forrest RN Oxygen Saturation 1 01/16/2025 6:00 PM Felisa Forrest RN Modified Neeta Score 12 01/16/2025 6:00 PM Felisa Forrest RN Pain 1 01/16/2025 6:00 PM Felisa Forrest RN Emetic Symptoms 2 01/16/2025 6:[address], RN * Postprocedure Normothermia Interventions Question Answer Entry Date Author Lena Applied Yes 01/16/2025 5:[address], RN Is the patient normothermic? Yes 01/16/2025 5 :18 PM Felisa Forrest RN * Non- Lethal Alarms Question Answer Entry Date Author Non-Lethal/Regular Alarms Other (Comment) 01/18/2025 9 :18 AM Rosana Hood * Communication Question Answer Entry Date Author Floor Staff Notification Method Secure chat 9:18 AM Rosana Hood Monitoring staff Called Floor Staff Nurse 01/18 9:18 AM Rosana Hood * Rocco/Cubbin Scale Question Answer Entry Date Author Age (years) 1 01/23/2025 8:00 AM Ariadne Horner RN Hemodynamics 4 01/23/2025 8:00 AM Ariadne Horner RN Weight/Tissue Viability 3 01/23/2025 8:00 A M Ariadne Horner RN Respiration 4 01/23/2025 8:00 AM Ariadne Horner RN Past Medical History 2 01/23/2025 8:00 AM Ariadne Woods RN Oxygen Requirments 4 01/23/2025 8:00 AM Ariadne Horner RN General Skin Condition 2 01/23/2025 8:00 AM Ariadne Horner RN Nutrition 4 01/23/2025 8:00 AM Ariadne Horner RN Medical Condition 4 01/23/2025 8:00 AM Ariadne Horner RN Incontinence 4 01/23/2025 8:00 AM Ariadne Horner RN Mobility 3 01/23/2025 8:00 AM Ariadne Horner RN Hygiene 1 01/23/2025 8:00 AM Ariadne Horner RN Deduction if patient has bee n in surgery or transported to CT, MRI, or HBOT during last 48 hours 0 01/23/2025 8:00 AM Ariadne Horner RN Deduction if patient has req uired blood or clotting factors during last 24 hours 0 01/23/2025 8:00 AM Ariadne Horner RN Deduction if patient has hyp othermia of 35 C or under (core temp) 0 01/23/2025 8:00 AM Ariadne Horner RN Jackson/Debra Pressure Risk Score 36 2024 8:00 AM Ariadne Horner RN * Elopement Risk Screen Question Answer Entry Date Author Does the patient exhibit any of the following behaviors? No 01/23/2025 8:00 AM Ariadne Horner R N Does the patient have a cour t ordered legal guardian? No 01/23/2025 8:00 AM Ariadne Horner RN * Cognition Question Answer Entry Date Author Mood/Behavior Alert 01/18/2025 11:00 AM Dianelys Benson Orientation Level Oriented X4 01/18/2025 11: 00 AM Dianelys Benson Overall Cognitive Status WFL 025 11:00 AM Dianelys Benson Arousal/Alertness Delayed responses to stimuli 01/18/2025 11:00 AM Dianelys Benson Method of Communication Verbal 01/19/20 25 11:00 AM Dianelys Benson Single Step Commands Consistently;With increased time 01/18/2025 11:00 AM Dianelys Benson Multi-Step Commands Consistently;With increased time;With repetition 01/18/2025 11:00 AM Dianelys Benson * C-SSRS (Frequent Screener) Question Answer Entry Date Author Is patient awake, alert, and able/willing to answer questions appropriately? Yes 01/23/2025 8:00 AM Ariadne Horner RN 1. Wish to be (Past 1 Month) No 025 8:00 AM Ariadne Horner RN 2. Non-Specific Active Suici christie Thoughts (Past 1 Month) No 01/23/2025 8:00 AM Ariadne Horner , RN 6. Suicidal Behavior (Lifetime) No 8:00 AM Ariadne Horner RN * Discharge Planning Continued Question Answer Entry Date Author Transportation Home at Discharge Other(Comment) 01/23/2025 10:09 AM Amanda Ford RN * AMPAC 6-Clicks Mobility Assessment Question Answer Entry Date Author Difficulty patient has turni ng over in bed (including adjusting bedclothes, sheets, and blankets)? 2 01/18/2025 10:24 AM EST Micheal Chopra Difficulty patient has sitti ng down on and standing up from a chair with arms (wheelchair, bedside commode, etc.)? 2 01/18/2025 10:24 AM Alena Roque Difficulty patient has movin g from lying on back to sitting on the side of the bed? 2 01/18/2025 10:24 AM EST Katelyn Melton How much help does the patie nt need moving to and from a bed to a chair (including a wheelchair)? 2 01/18/2025 10:24 AM EST Micheal Hidalgo How much help does the patie nt need to walk in hospital room? 2 01/18/2025 10:24 AM EST Micheal Silvestre How much help does the patie nt need climbing 3-5 steps with a railing? 2 01/18/2025 10:24 AM Katelyn Roque [facility] 6-Clicks Mobility Asse ssment Total 12 01/18/2025 10:24 AM Katelyn Roque documented in this encounter Medications at Time of Discharge amitriptyline (Elavil) 25 MG tablet Take 1 tablet by mouth 1 time each day. aspirin 81 MG EC tablet Take 1 tablet by mouth 1 time each day. Calcium Carb-Cholecalcifero l (CALCIUM 1000 + D PO) Take 1 tablet by mouth daily. carvedilol (Coreg) 25 MG tablet Take 1 tablet by mouth 2 times a day with meals. clonazePAM (KlonoPIN) 1 MG tablet Take 1 tablet by mouth daily as needed for anxiety. 3 tablet 01/23/2025 darifenacin (Enablex) 15 MG 24 hr tablet 1 (one) time each day at the same time. 01/28/2024 empagliflozin-metFO RMIN ER (Synjardy XR) 12.5-1000 MG 24 hr tablet Take 2 tablets by mouth daily with breakfast. ferrous sulfate 325 (65 Fe) MG tablet Take 1 tablet by mouth every other day. 01/22/2025 mirabegron ER (Myrbetriq) 50 MG tablet Take 1 tablet by mouth daily. 12/07/2024 6 Multiple Vitamins-Minerals (ONE-A-DAY WOMENS PO) Take 1 tablet by mouth daily. NIFEdipine XL (Adalat CC) 30 MG 24 hr tablet Take 1 tablet by mouth daily. Do not crush, chew, or split. 01/23/2025 nystatin (Mycostatin) [id number] UNIT/ML suspension 04/21/2024 pantoprazole (Protonix) 40 MG EC tablet Take 1 tablet by mouth 2 times a day. Do not crush, chew, or split. 01/22/2025 pioglitazone (Actos) 30 MG tablet Take 1 tablet by mouth daily. 11/22/2024 Probiotic tablet delayed-release Take 1 tablet by mouth daily. rosuvastatin (Crestor) 10 MG tablet Take 1 tablet by mouth daily. sAXagliptin (Onglyza) 5 MG tablet Take 1 tablet by mouth daily. sodium chloride 0.9% solution 250 mL with vancomycin 1.25 g reconstituted solution 1,250 mg IVPBIndications:Pos toperative sepsis (CMS/HCC),Celluliti s of back except buttock Infuse 1,250 mg into a venous catheter 1 (one) time each day at the same time at 200 mL/hr over 75 minutes. 01/23/2025 Vortioxetine HBr 20 MG tablet Take 1 tablet by mouth daily. documented as of this encounter Miscellaneous Notes * Jerome Ramirez RN - 01/23/2025 12:18 PM EST Images from the original note were not included. [id number] What is Sepsis? Sepsis is a very serious condition. It happens when your body responds with widespread inflammationto a severe infection, usually caused by bacteria. Sometimes it may be caused by a virus. Sepsis can be deadly. Blood pressure may drop. The lungs, liver, and kidneys may start to fail. Sepsis is a medical emergency. If someone has symptoms of sepsis, call 911 right away. Risk factors Those most at risk for sepsis are: ? Infants or older adults ? People who have an illness that weakens their immune system, such as cancer, AIDS, or diabetes ? People being treated with chemotherapy medicines, high-dose steroids, or radiation, which weaken the immune system ? People who have had an organ transplant ? People with long-term (chronic) lung, kidney, liver, or heart disease ? People with a very severe infection, such as pneumonia, meningitis, or a urinary tract infection When to call 911 Sepsis is a medical emergency. Call 911 right away if you have a fever with any of these symptoms: ? Chills and shaking ? Fast heartbeat and breathing ? Trouble breathing ? Severe nausea or uncontrolled vomiting ? Confusion, disorientation, drowsiness, or dizziness ? Decreased urination ? Severe pain, including in the back or joints What to expect in the emergency room To treat sepsis, antibiotics and fluids may by given through an intravenous (IV) line. ? Blood and urine tests are done to look for bacteria. They also check for organ failure. ? Blood, urine, or sputum cultures may be taken. The samples are sent to a lab. They are placed in a special container. Any bacteria should grow in 24 to 48 hours. ? X-rays or other imaging tests may be done. A person with sepsis will be admitted to the hospital and treated with antibiotics. Treatment will also include oxygen and IV (intravenous) fluids and other medicines as needed. The person will be watched very closely, usually in the intensive care unit (ICU). Last Reviewed Date: 2024 00:00:00 ?? [id number] [employer]. All rights reserved. This information is not intended as a substitute for professional medical care. Always follow your healthcare professional's instructions. * [facility] - Jerome Henderson RN - 01/23/2025 12:18 PM EST Images from the original note were not included. [id number] Understanding Sepsis Sepsis is a life-threatening problem that affects your organs. It can happen if you have a severe infection. It's most often caused by bacteria. It ranges in severity from sepsis to severe sepsis to septic shock. All of these are medical emergencies. They need to be treated right away. What is sepsis? Sepsis is when the body reacts to an infection with severe inflammation. It can be caused by bacteria, fungus, or a virus. Sepsis can cause many kinds of problems in the body. It can lead to severe low blood pressure (shock). It can cause organ failure. This can lead to if not treated. Sepsis is most common in: ? Adults 65 years and older. ? Patients in an intensive care unit (ICU). ? People who have a central venous line or urinary catheter. ? People with a blood infection (bacteremia), pneumonia, meningitis, or a urinary tract infection. ? People with some cancers, diabetes, or long-term kidney or liver disease. ? People with immune system diseases, such as HIV or AIDS. ? People who had an organ transplant or bone marrow or stem cell transplant. ? People taking medicines that affect the immune system. ? People being treated with chemotherapy, steroid medicines, or radiation. ? People with severe injuries, including payne. Symptoms of sepsis Symptoms of sepsis can include: ? Chills and shaking. ? High fever. ? Low blood pressure. ? Fast heartbeat. ? Fast breathing. ? Shortness of breath. ? Severe nausea or uncontrolled vomiting. ? Confusion. ? Not able to be awake or aware (coma). ? Dizziness. ? Less urination. ? Severe pain, including in the back or joints. Diagnosing sepsis If your doctor thinks you may have sepsis, you will be admitted to the hospital. You will have tests. They may include blood and urine tests. You may have cultures and other tests to look for the cause of the sepsis. These tests look for bacteria, viruses, and fungus. Other tests may check for problems with your organs. You may have X-rays or other imaging tests. These may be done to look at yourorgans to find the source of infection. Treating sepsis All forms of sepsis are a medical emergency. They must be treated in the hospital, often in the intensive care unit (ICU). If you have sepsis, your doctor will give you antibiotics through a thin, flexible tube (I.V.). This is put into a vein in your arm or other area in your body. You will be given a large amount of fluids through the I.V. You may be given nutrition or medicines through your I.V. Your doctor will talk with you about other treatments you may need. These may include an oxygen mask or a ventilator to help you breathe. This may include medicine that raises your blood pressure. You might need dialysis for kidney failure. Treatment may last at least 7 to 10 days. Even with a lot of treatment, sepsis can lead to . Last Reviewed Date: 2024 00:00:00 ?? [id number] [employer]. All rights reserved. This information is not intended as a substitute for professional medical care. Always follow your healthcare professional's instructions. * [facility] - Jerome Henderson RN - 01/23/2025 12:18 PM EST Images from the original note were not included. [id number] Bacteremia, Suspected (Adult) Bacteremia is a bacterial infection that has spread to the bloodstream. This is serious because it can cause a lot of harm to the body. It can spread to other organs, including the bones, joints, kidneys, brain, and lungs. Bacteremia that spreads and causes significant inflammation in the body is called sepsis. You will have lab tests and imaging tests. The lab tests will include blood cultures to check for bacteremia. Blood cultures will find out the type of bacteria that you have. You will likely be started on antibiotics even before the results of the blood cultures are known. Causes Bacteremia often starts with an infection in one area, but it then spreads to the blood. Almost anytype of infection can cause bacteremia. This includes: ? Urinary tract infection ? Skin infection ? Gastrointestinal problem ? Infection after surgery ? Lung infection (pneumonia) ? Infection of a regional medical director placed in a vein or the bladder Symptoms At first, symptoms may seem like any local infection or illness. But then they get worse. Symptoms can include: ? Fever and chills ? Loss of appetite ? Upset stomach (nausea) or vomiting ? Trouble breathing or fast breathing ? Fast heart rate ? Feeling lightheaded or faint ? Skin rashes or blotches ? Confusion, severe sleepiness, or loss of consciousness Home care People with bacteremia are most often treated in the hospital. After the most severe part of the illness is better, you may be sent home to complete your treatment. When caring for yourself at home: ? Rest at home for the first 2 to 3 days. When resuming activity, don't let yourself become too tired. ? You can take acetaminophen or ibuprofen for pain, unless you were given a different pain medicineto use. Talk with your healthcare provider before using these medicines if you have chronic liver or kidney disease. Talk with your provider if you have had a stomach ulcer or digestive bleeding. Also talk with your provider if you are taking medicine to prevent blood clots such as blood thinners. ? If you were given antibiotics, take them until they are used up, or your provider tells you to stop. It's important to finish the antibiotics even though you feel better. This is to make sure the infection has cleared. ? Your appetite may be poor, so a light diet is fine. Drink plenty of fluids (6 to 8 glasses of fluid per day). This includes water, soft drinks, sports drinks, juices, tea, or soup. Follow-up care Follow up with your healthcare provider, or as advised. Once the results of the blood culture are known, your healthcare provider may change your antibiotic. You can call for the results. If you had X-rays, a CT scan, or an ultrasound, a healthcare provider will look at them. You will be told of any results that may affect your care. Call 911 Call 911 if you have any of these: ? Wheezing or trouble breathing ? Trouble swallowing ? Chest pain ? Confusion or sudden change in behavior ? Extreme drowsiness or trouble waking up ? Fainting or loss of consciousness ? Fast heart rate ? Low blood pressure ? Vomiting blood, or large amounts of blood in stool ? Seizure When to get medical care Call your healthcare provider if you have any of these: ? Cough with lots of colored mucus, or blood in your mucus ? Severe headache ? Severe face, neck, throat, or ear pain ? Belly pain ? Weakness, dizziness, repeated vomiting, or diarrhea ? Joint pain or a new rash ? Burning feeling when peeing (urinating) ? Fever of 100.4??F (38??C) or higher, or as advised by your provider Last Reviewed Date: 2024 00:00:00 ?? [id number] [employer] All rights reserved. This information is not intended as a substitute for professional medical care. Always follow your healthcare professional's instructions. * Progress Notes - Amanda Meza RN - 01/23/2025 10:13 AM EST Case Management Discharge Note Rosa Perdomo 74 y.o. female CSN: [id number] Admission: 01/15/2025 9:57 PM Primary Problem: Postoperative sepsis (CMS/HCC) Primary Specialty Department Supervisor: Patient is going to [facility] where staff can assist with care needs Assistance Available at Discharge: Current Outpatient/Agency/Support Group: clinic(s), DME Availability of Care Givers (#Hours): 24 hours (staff at [facility]) Family/Specialty Department Supervisor(s) Willingness Assessed to care for patient at home: Yes Family/Specialty Department Supervisor(s) Readiness Assessed to care for patient at home: Yes Housing Circumstances-Z Codes: Housing Circumstances (select all that apply): None Applicable Patient Referred to Financial or Community Resources: No community resources needed at this time. Going to [facility] Discharge Facility/Level of Care Needs: Discharge Facility/Level of Care Needs: 3-[facility] Facility ([facility]) Patient's Choice of Community Agency(s): Patient's Choice of Community Agency(s): [facility] Patient/Family Anticipated Services at Transition: Patient/Family Anticipated Services at Transition: rehabilitation services, [facility] ([facility]) DME/Equipment Needed after Discharge: Equipment Currently Used at Home: walker, rollator, shower chair Equipment Needed After Discharge: other (see comments) (per [facility]) Readmission Within the Last 30 Days: Readmission Within the Last 30 Days: no previous admission in last 30 days Medicare Documentation: Medicare Second Notice?: Yes Date Second Notice Completed: 01/22/25 Time Second Notice Completed: 1111 Medicare Second Notice Recieved By: patient Follow-up: Chase Gunn MD [id number] [place] [id number] Discharge Transportation: Transportation Anticipated: other (see comments) (W/C transport, corn picker at 2 pm.) Transportation Home at Discharge: Other(Comment) ([facility] transport arranged for 2 pm today) Has discharge transport been arranged?: Yes What day is the transport expected?: 01/23/25 What time is the transport expected?: 1400 Follow Up Transport: Per facility/family Additional Comments: Plan of Care and Discharge Plan reviewed with care team this am. Patient was admitted on 01/15 with post operative sepsis (recent spinal cord stimulator placed about 3 weeks ago). Neurosurgery consulted and went to OR on 01/16 for removal of stimulator. On IV abx through Feb 12. Will need Modified OPAT. PICC in place. Per MD, patient is medically ready for discharge. DESTINEY - Has Acute recs, but request DESTINEY at [facility]. Per admissions (Stacey), they can accept patient today. Patient will need to be on Vancomycin for discharge, not Dapto. Number for report: [phone] (Unit 1) [place] Summary: [phone] Narcs: [facility] in [place] Transport: Time for pickup changed to today 01/23 at 2 pm in the [place] lounge. Nurse, , Stacey (facility) and spouse notified of new time. Follow up appointment in with ID on 01/31 at 1 pm. No other discharge needs communicated. Amanda Meza RN * Discharge Summary - Merlin Massey MD - 01/23/2025 8:06 AM EST Hospitalization Admit Date/Time: 01/15/2025 9:57 PM Admitting Attending: Demar Jiménez Discharge Date: 01/23/2025 Discharge Attending Physician: Merlin Massey MD PCP name and Address: Chase Gunn MD [address] [place] [address] / [place] [id number] Referring provider name and address: Chase Gunn MD [address] [place] [address] Chief Concern, Brief History of Present Illness, and Hospital Course Rosa Perdomo is a 74-year-old female with a history of diabetes mellitus, hypertension, chronic kidney disease stage 3, depression, and severe obesity, who was admitted for postoperative sepsis secondary to an infected spinal cord stimulator with MRSA bacteremia. PROBLEM-ORIENTED HOSPITALIZATION SUMMARY Postoperative Sepsis, MRSA Bacteremia, and Spinal Cord Stimulator Infection She was admitted with sepsis due to an infected spinal cord stimulator placed less than three weeksprior, with MRSA bacteremia confirmed on blood cultures. Neurosurgery performed explantation of theentire stimulator system and debridement of infected tissue on 01/16. Intraoperative findings included zeina purulence and cultures from hardware and abscess grew MRSA. No bone involvement was noted. She was treated with IV vancomycin, with dosing managed by pharmacy, and transitioned to a single-lumen PICC line placed on 01/20 for outpatient parenteral antibiotic therapy (OPAT). The plan is for 4weeks of IV vancomycin (through 02/12/2025), with weekly labs and follow-up. Daptomycin was considered but not available at the receiving facility, so vancomycin will be continued post-discharge. Infectious Disease and Neurosurgery were involved in management. She was medically stable for discharge at the end of hospitalization. Urinary Retention She developed new urinary retention requiring Sanz catheter placement on 01/20. Urinalysis showed >50 WBCs, but she denied urinary symptoms apart from retention, so no treatment was initiated. Sanz catheter was maintained at discharge, with a voiding trial planned after discharge. Mild Transaminitis She had mild transaminitis with elevated AST, ALT, and alkaline phosphatase, and mildly coarsened liver echotexture on RUQ ultrasound, suggestive of parenchymal disease. Hepatitis screen was negative. Liver function tests were monitored daily during admission. Iron Deficiency Anemia Iron deficiency anemia was present on admission (Hgb 9.4 g/dL, Hct 28.1%), and she continued oral iron supplementation with serial lab monitoring. Transfusion was considered for hemoglobin <7 g/dL. Diabetes Mellitus Her diabetes was managed with hypoglycemic protocol and sliding scale insulin during NPO status, with A1c 7.8%. She received 5 units of glargine daily inpatient. Sitagliptin was held during hospitalization. Hypertension Carvedilol was resumed and nifedipine (30 mg) was started during hospitalization. She reported higher blood pressures prior to admission and was scheduled to follow up with her physician. Hydralazinewas discontinued. Mixed Hyperlipidemia She continued her home statin during hospitalization. Gastroesophageal Reflux Disease She continued her home PPI during hospitalization. Major Depressive Disorder, In Remission She continued her home antidepressants (Trintellix and Elavil) during hospitalization. Severe Obesity Her BMI was 37.8 kg/m??, which complicated all aspects of care and rehabilitation planning. Chronic Kidney Disease Stage 3 Her chronic kidney disease remained stable during admission (creatinine 0.79- 0.97 mg/dL, estimated CrCl 56-69 mL/min). History of Seizure Disorder She continued her home clonazepam as needed, with seizure precautions in place during hospitalization. Functional Status and Disposition She experienced significant decline in functional mobility and ADLs during admission, requiring moderate to maximal assistance for transfers and self-care. Physical and occupational therapy recommended acute rehabilitation at discharge. She was discharged to a [facility] facility with a plan for continued IV vancomycin via PICC and ongoing therapy. Surgeries and Procedures Procedures performed in this encounter Procedures Case Request Operating Room: EXPLORATION, WOUND, POSSIBLE SCS REMOVAL/REVISION, ALL OTHER INDICATEDPROCEDURES EXPLORATION, WOUND, POSSIBLE SCS REMOVAL/REVISION, ALL OTHER INDICATED PROCEDURES (N/A) Medication List PAUSE taking these medications sAXagliptin 5 MG tablet Wait to take this until: February 12, 2025 Commonly known as: Onglyza Take 1 tablet by mouth daily. .. amitriptyline 25 MG tablet Commonly known as: Elavil Take 1 tablet by mouth 1 time each day. aspirin 81 MG EC tablet Take 1 tablet by mouth 1 time each day. CALCIUM 1000 + D PO Take 1 tablet by mouth daily. carvedilol 25 MG tablet Commonly known as: Coreg Take 1 tablet by mouth 2 times a day with meals. clonazePAM 1 MG tablet Commonly known as: KlonoPIN Take 1 tablet by mouth daily as needed for anxiety. empagliflozin-metFORMIN ER 12.5-1000 MG 24 hr tablet Commonly known as: Synjardy XR Take 2 tablets by mouth daily with breakfast. ferrous sulfate 325 (65 Fe) MG tablet Take 1 tablet by mouth every other day. mirabegron ER 50 MG tablet Commonly known as: Myrbetriq Take 1 tablet by mouth daily. NIFEdipine CC 30 MG 24 hr tablet Commonly known as: Adalat CC Take 1 tablet by mouth daily. Do not crush, chew, or split. ONE-A-DAY WOMENS PO Take 1 tablet by mouth daily. pantoprazole 40 MG EC tablet Commonly known as: Protonix Take 1 tablet by mouth 2 times a day. Do not crush, chew, or split. pioglitazone 30 MG tablet Commonly known as: Actos Take 1 tablet by mouth daily. Probiotic tablet delayed-release Take 1 tablet by mouth daily. rosuvastatin 10 MG tablet Commonly known as: Crestor Take 1 tablet by mouth daily. sodium chloride 0.9% solution 250 mL with vancomycin 1.25 g reconstituted solution 1,250 mg IVPB Infuse 1,250 mg into a venous catheter 1 (one) time each day at the same time at 200 mL/hr over 75 minutes. Vortioxetine HBr 20 MG tablet Take 1 tablet by mouth daily. Where to Get Your Medications Information about where to get these medications is not yet available Ask your nurse or doctor about these medications clonazePAM 1 MG tablet ferrous sulfate 325 (65 Fe) MG tablet NIFEdipine CC 30 MG 24 hr tablet pantoprazole 40 MG EC tablet sodium chloride 0.9% solution 250 mL with vancomycin 1.25 g reconstituted solution 1,250 mg IVPB Discharge Diagnosis Medical Problems Active and Resolved Hospital Problems Hospital Hypertension (Chronic) Diabetes mellitus (Chronic) Mixed hyperlipidemia Major depressive disorder with single episode, in remission (CMS/HCC) MADELEINE (iron deficiency anemia) Gastroesophageal reflux disease without esophagitis Severe obesity (BMI 35.0-39.9) with comorbidity (CMS/HCC) * (Principal) RESOLVED: Postoperative sepsis (CMS/HCC) RESOLVED: Cellulitis of back except buttock RESOLVED: MRSA bacteremia RESOLVED: Transaminitis Post Discharge Instructions Check weekly labs Outpatient Follow-Up Future Appointments Date Time Provider Department Center 01/31/2025 1:00 PM Dona Nava PA [id number] Test Results Pending At Discharge Pending Labs Order Current Status AFB Culture, Non Respiratory Source and Acid Fast Stain Preliminary result Blood Culture (Aerobic/Anaerobet Set) Preliminary result Fungal Culture, Routine Preliminary result Fungal Culture, Tissue and DEANDRE Preliminary result Pertinent Physical Exam At Time of Discharge Physical Exam Vitals reviewed. Constitutional: General: She is not in acute distress. Appearance: She is obese. Cardiovascular: Rate and Rhythm: Normal rate. Pulses: Normal pulses. Pulmonary: Effort: Pulmonary effort is normal. Abdominal: Palpations: Abdomen is soft. Skin: General: Skin is dry. Neurological: General: No focal deficit present. Discharge Disposition/Condition Disposition: Nursing facility (specify) [facility] Condition: Stable (s/sx potential problems absent or manageable) I spent >30 minutes of patient care and instruction time in preparation for this discharge. * Care Plan - Christina Fritz RN - 01/22/2025 8:52 PM EST Problem: Adult Inpatient Plan of Care Goal: Plan of Care Review Outcome: Ongoing, Progressing Flowsheets (Taken 01/22/20252050) Progress: no change Outcome Evaluation: POC reviewed with pt. Plan of Care Reviewed With: patient Goal: Patient-Specific Goal (Individualized) Outcome: Ongoing, Progressing Flowsheets (Taken 01/22/20252017) Patient/Family-Specific Goals (Include Timeframe): will cluster care and minimize awakenings duringthis shift Individualized Care Needs: sleep promotion Anxieties, Fears or Concerns: pt is ready to discharge tomorrow Goal: Absence of Hospital-Acquired Illness or Injury Outcome: Ongoing, Progressing Intervention: Identify and Manage Fall Risk Flowsheets (Taken 01/22/20252017) Safety Promotion/Fall Prevention: clutter-free environment maintained fall prevention program maintained Intervention: Prevent Skin Injury Flowsheets Taken 01/22/20252050 Skin Protection: incontinence pads utilized Taken 01/22/20252017 Body Position: weight shifting education provided Intervention: Prevent and Manage VTE (Venous Thromboembolism) Risk Flowsheets (Taken 01/22/20252017) VTE Prevention/Management: bilateral lower extremity SCDs (sequential compression devices) on Intervention: Prevent Infection Flowsheets (Taken 01/22/20252050) Infection Prevention: environmental surveillance performed equipment surfaces disinfected hand hygiene promoted single patient room provided rest/sleep promoted Goal: Optimal Comfort and Wellbeing Outcome: Ongoing, Progressing Intervention: Monitor Pain and Promote Comfort Flowsheets (Taken 01/22/20252050) Pain Management Interventions: pillow support provided relaxation techniques promoted quiet environment facilitated rest Intervention: Provide Person-Centered Care Flowsheets (Taken 01/22/20252050) Trust Relationship/Rapport: care explained questions encouraged choices provided reassurance provided emotional support provided thoughts/feelings acknowledged empathic listening provided questions answered Problem: Skin Injury Risk Increased Goal: Skin Health and Integrity Outcome: Ongoing, Progressing Intervention: Optimize Skin Protection Flowsheets Taken 01/22/20252050 Pressure Reduction Devices: pressure-redistributing mattress utilized Skin Protection: incontinence pads utilized Taken 01/22/20252017 Activity Management: activity adjusted per tolerance activity encouraged Head of Bed (HOB) Positioning: HOB elevated Intervention: Promote and Optimize Oral Intake Flowsheets (Taken 01/22/20252050) Oral Nutrition Promotion: physical activity promoted Nutrition Interventions: food preferences provided Problem: Fall Injury Risk Goal: Absence of Fall and Fall-Related Injury Outcome: Ongoing, Progressing Intervention: Identify and Manage Contributors Flowsheets (Taken 01/22/20252050) Medication Review/Management: medications reviewed Self-Care Promotion: independence encouraged BADL personal objects within reach Intervention: Promote Injury-Free Environment Flowsheets (Taken 01/22/20252017) Safety Promotion/Fall Prevention: clutter-free environment maintained fall prevention program maintained Problem: Infection Goal: Absence of Infection Signs and Symptoms Outcome: Ongoing, Progressing Intervention: Prevent or Manage Infection Flowsheets (Taken 01/22/20252050) Infection Management: aseptic technique maintained Fever Reduction/Comfort Measures: lightweight bedding lightweight clothing Isolation Precautions: precautions maintained Problem: Self-Care Deficit Goal: Improved Ability to Complete Activities of Daily Living Outcome: Ongoing, Progressing Intervention: Promote Activity and Functional Burnett Flowsheets Taken 01/22/20252050 Self-Care Promotion: independence encouraged BADL personal objects within reach Taken 01/22/20252017 Activity Assistance Provided: assistance, 2 people * Asher Fraser DO - 01/22/2025 5:11 PM EST Spoke with pharmacy; daptomycin is not available at receiving facility so patient will remain on vancomycin post discharge. New OPAT note has been submitted. Please refer to OPAT note for complete details. Asher Walker DO Infectious Disease Fellow, PGY-5 Pager: [phone] Epic Chat Preferred * Asher Fraser DO - 01/22/2025 5:07 PM EST ID OPAT INTAKE NOTE: Transitions of Care Summary OPAT Category: Modified OPAT, pending nurse navigator evaluation If patient enrolled into Modified OPAT Program list reason (ONLY if no Nurse Navigator assessment required): Patient and/or family/friend is uncomfortable administering IV antimicrobial therapy in the home (If selected, describe further) OPAT at a medical/nursing facility (e.g, [facility]AC,[facility], [facility],Nursing facility) Patient lives out of state: No If yes, is ID provider able to provide orders in destination state: n/a Referring ID Physician (Fellow/Attending): Ruth Ann Diagnosis: Bacteremia, list source: cord stimulator with MRSA bacteremia IV Access: Single Lumen PICC Antimicrobial Regimen: Antimicrobials (including doses): Vancomycin with dosing per pharmacy Start date: 01/16/2025 Projected End Date: 02/12/2025 Transition to oral therapy: No If yes, antimicrobial (with dose/end dates): Future Imaging: No Lab Monitoring (weekly, preferably on Mondays unless otherwise specified): CBC w/ differential BMP Vancomycin levels *CRP for patients with bone/joint infections and endocarditis or endovascular infections Antimicrobial specific labs: Vancomycin: BUN, SrCr, and vancomycin level (random if continuous, trough if intermittent) Please fax all labs to: ID OPAT Team Attn: Dr. Sinha Fax #: [phone] Appointments: Co-clinic with JORGE Keating, & Dr. Sinha on 01/31/2025 at 1:00pm at: [facility]: [address] [place] [address] (Select Option 3 for IV Antibiotic / PICC line related issues) For questions regarding OPAT prior to discharge, reach out to the OPAT team via [employer] Secure Chat (Group: OPAT Referral Team). For all questions regarding OPAT after discharge should be directed to the OPAT Team at (Select Option 3 for IV Antibiotics/PICC Issues) between 8am-5pm. After 5 pm, or during weekends/ holidays, please call the paging caterpillar operator at to reach the on-call ID fellow. PLEASE NOTIFY THE ID CONSULTING SERVICE OF ANY QUESTIONS REGARDING THESE RECOMMENDATIONS OR WITH ANY ANTIMICROBIAL CHANGES THAT OCCUR AFTER THE DATE/TIME OF THIS OPAT INTAKE NOTE. * Progress Notes - Cleve Deleon MD - 01/22/2025 4:54 PM EST Subjective No acute events overnight. Discussed plan of care about weaning o2 and potential discharge today. Review of Systems Objective Vitals Temp: [36.6 ??C (97.9 ??F)-36.9 ??C (98.4 ??F)] 36.7 ??C (98.1 ??F) Heart Rate: [65-76] 72 Resp: [16-20] 16 BP: (120-151)/(63-76) 147/74 Physical Exam Cardiovascular: Rate and Rhythm: Normal rate and regular rhythm. Pulmonary: Breath sounds: Normal breath sounds. Abdominal: Palpations: Abdomen is soft. Musculoskeletal: Right lower leg: No edema. Left lower leg: No edema. Neurological: Mental Status: She is oriented to person, place, and time. Assessment & Plan Postoperative sepsis (CMS/HCC) Hypertension Diabetes mellitus Mixed hyperlipidemia Cellulitis of back except buttock Major depressive disorder with single episode, in remission (CMS/HCC) MRSA bacteremia MADELEINE (iron deficiency anemia) Gastroesophageal reflux disease without esophagitis Transaminitis Severe obesity (BMI 35.0-39.9) with comorbidity (CMS/HCC) 74 y.o. year-old female with PMH DM2, HTN, depression with anxiety, seizure disorder, GERD, acute diarrheal illness (recent C. diff), transferred here to [facility] from OSH for MRSA bacteremia. Spinal cord stimulator placed <3 weeks ago @ [facility]; Started on IV/oral vanc. Local surgeons declined case so transferred for further management. S/p device explantation on 01/16/25 with Neurosurgery. ID consulted, OPAT. MRSA bacteremia iso extensive cellulitis 2/2 early post-op spinal cord stimulator placement S/p explantation of the entire stimulator system and debridement of infected tissue on 01/16, with Neurosurgery (cultures from hardware and abscess grew MRSA) No bone involvement was noted. -new PICC was placed 01/20, -continue vancomycin daily, pharmacy to dose - 10mg/kg IV q24h - 4 weeks from 01/16/2025 (through 02/12/2025) -outpatient parenteral antibiotic therapy (OPAT) with weekly labs and follow-up. New urine retention hx of incontinence - Eventually needing a Sanz placed 01/20 - UA shows greater than 50 WBCs, , although patient denies symptoms apart from retention so will not treat -needs voiding trial next week Hypomagnesemia - Replete PRN Elevated liver enzymes, mild -RUQ US shows Mildly coarsened liver echotexture suggests parenchymal disease -daily LFTs -hepatitis screen negative HTN Resumed carvedilol Continue Procardia (started inpatient) Non insulin dependent Type 2 DM Plan: -Hypoglycemic protocol in place -A1c 7.8% -SSI - Started 5 units Lantus daily Mixed hyperlipidemia Plan: -Continue home Statin MADELEINE -Continue home Ferrous Sulfate - Continue serial lab assessment. GERD -Continue home PPI MDD -Continue home Trintellix and Elavil Seizure disorder? Plan: -Continue home Klonopin BID PRN -Seizure precautions Obesity Body mass index is 37.8 kg/m??. -Complicates all aspects of care ' Medically Ready for Discharge:Ready Now * Hospital Course - Cleve Deleon MD - 01/22/2025 4:54 PM EST Chief Concern, Brief History of Present Illness, and Hospital Course Rosa Perdomo is a 74-year-old female with a history of diabetes mellitus, hypertension, chronic kidney disease stage 3, depression, and severe obesity, who was admitted for postoperative sepsis secondary to an infected spinal cord stimulator with MRSA bacteremia. PROBLEM-ORIENTED HOSPITALIZATION SUMMARY Postoperative Sepsis, MRSA Bacteremia, and Spinal Cord Stimulator Infection S/p explantation of the entire stimulator system and debridement of infected tissue on 01/16, with Neurosurgery (cultures from hardware and abscess grew MRSA) No bone involvement was noted. -new PICC was placed 01/20, -continue vancomycin daily, pharmacy to dose - 10mg/kg IV q24h - 4 weeks from 01/16/2025 (through 02/12/2025) -outpatient parenteral antibiotic therapy (OPAT) with weekly labs and follow-up. Urinary Retention She developed new urinary retention requiring Sanz catheter placement on 01/20, with urinalysis showing >50 WBCs (however no urinary symptoms so will not treat); -maintain sanz at discharge, can have a voiding trial later during the week Mild Transaminitis She had mild transaminitis with elevated AST, ALT, and alkaline phosphatase, and mildly coarsened liver echotexture on RUQ ultrasound, suggestive of parenchymal disease. Hepatitis screen was negative. Liver function tests were monitored daily. Iron Deficiency Anemia Iron deficiency anemia was present on admission (Hgb 9.4 g/dL, Hct 28.1%), and she continued oral iron supplementation with serial lab monitoring. Transfusion was considered for hemoglobin <7 g/dL. Diabetes Mellitus Her diabetes was managed with hypoglycemic protocol and sliding scale insulin during NPO status, with A1c 7.8%. -was getting 5 units glargine inpatient, can resume -pause sitagliptin until appropriate to resume Hypertension -continue home carvedilol -continue nifedipine (30 mg) that was started in the hospital. Patient states prior to admission her BP was running higher and she was supposed to see a doctor about it, so might need two antihypertensives on discharge -dc home hydralazine (is not first line) Mixed Hyperlipidemia home statin Gastroesophageal Reflux Disease Continue PPI Major Depressive Disorder, In Remission Continue antidepressants (Trintellix and Elavil) Severe Obesity Her BMI was 37.8 kg/m??, which complicated all aspects of care and rehabilitation planning. chronic kidney disease stage 3 stable during admission (creatinine 0.79-0.97 mg/dL, estimated CrCl 56-69 mL/min). history of seizure disorder, Continue home clonazepam * Progress Notes - Amanda Meza RN - 01/22/2025 2:27 PM EST Case Management Adult Progress Note Rosa Perdomo 74 y.o. female CSN: [id number] Admission: 01/15/2025 9:57 PM Primary Problem: Postoperative sepsis (CMS/[facility]) Anticipated Discharge Date: 01/21 Has Discharge Plans Changed? No - [facility] Medicare Second Notice: Medicare Medicare Second Notice?: Yes Date Second Notice Completed: 01/22/25 Time Second Notice Completed: 1111 Medicare Second Notice Recieved By: patientNA at this time, >48 hours till discharge. Housing Circumstances: Not Applicable Housing Circumstances Action Taken: Other none Medically Ready for Discharge: Anticipated in 5+ Days Additional Comments Plan of Care and Discharge Plan reviewed with care team this am. Patient was admitted on 01/15 with post operative sepsis (recent spinal cord stimulator placed about 3 weeks ago). Neurosurgery consulted and went to OR on 01/16 for removal of stimulator. On IV abx - was planning on 28 d therapy with Daptomycin, however, d/t cost, facility unable to accept. Will continue on Vancomycin. PICC in place. Per MD, patient is medically ready for discharge. [facility] - Has Acute recs, but request [facility] at [facility]. Per admissions (Stacey), they cannot accept patient on Daptomycin. Discussed with , will remain on Vancomycin through 02/13/24. Number for report: [phone] (Unit 1) DC Summary: [phone] Narcs: [facility] in [place] Transport: Patient not qualifying for ambulance. Concerns over transfers into vehicle. Meets < 300% [facility]. W/C Transport arranged via CM office with [facility] for 01/23 at 11 am. Nurse, , Stacey (facilility) and Patients spouse notified. CM will continue to follow for discharge needs. Amanda Meza RN * Progress Notes - Uttal-Sierra Flores, PharmD - 01/22/2025 8:16 AM EST Pharmacokinetic Consult - Therapeutic Drug Monitoring HPI and Hospital Course: Rosa Perdomo is a 74 y.o. female presenting with MRSA bacteremia. who continues on vancomycin for . Pharmacy was consulted for management of vancomycin. Levels were obtained to assess safety and efficacy of current dosing regimen. Dose History: Recent Vancomycin Admin vancomycin (Vancocin) 1,250 mg in sodium chloride 0.9% 250 mL IVPB (vial adapter required) (mg) 1,250 mg New Bag 01/22/25 0306 vancomycin (Vancocin) 1,250 mg in sodium chloride 0.9% 250 mL IVPB (vial adapter required) (mg) 1,250 mg New Bag 01/21/25 0311 1,250 mg New Bag 01/20/25 0310 vancomycin (Vancocin) 1,500 mg in sodium chloride 0.9% 250 mL IVPB (vial adapter required) (mg) 1,500 mg New Bag 01/19/25 0300 1,500 mg New Bag 01/18/25 0235 Restarted 01/17/25 0231 1,500 mg New Bag 0226 vancomycin (Vancocin) 2,500 mg in sodium chloride 0.9 % 500 mL IVPB (mg) 2,500 mg Given 01/16/25 0136 Creatinine, Plasma (mg/dL) Date/Time Value 01/20/2025 0502 0.79 01/18/2025 0456 0.90 01/17/2025 0231 0.87 Estimated Creatinine Clearance: 69 mL/min (by C-G formula based on SCr of 0.79 mg/dL). Vancomycin Pharmacokinetic Evaluation: Current Dose: 1250 mg IV Q24 hr infused over 75 min Date/Time of Most Recent Dose: 01/22/25 0306 C1 random (ug/mL): 29.1 mcg/mL C2 trough (ug/mL): 13.7 mcg/mL Vancomycin ke (hr ^-1): 0.0367 Vancomycin half-life (hr): 18.9 Cmax, actual (ug/mL): 31.53 Ctrough, actual (ug/mL): 13.68 Vancomycin Vd (L): Vancomycin Vd (L/kg): Steady state Vd : 66.176 Steady state Vd : 0.687 Vancomycin AUC 24hr (mg??hr/L): 515 Assessment and Recommendations: 1. Levels drawn appropriately 2. Recommend to continue with current regimen of vancomycin 1250 mg IV every 24 hours. 3) Monitor renal function (SCr and BUN) and UOP at least 2-3x/week or more frequently if renal function changes. 4) Obtain repeat vancomycin levels (trough & peak to calculate AUC) within 7 days or sooner if renal function changes. Pharmacy will continue to follow, Submitted by: Sierra Odonnell PharmD 01/22/2025 8:16 AM * Care Plan - Felisa Whitlock RN - 01/22/2025 7:58 AM EST Problem: Adult Inpatient Plan of Care Goal: Plan of Care Review Outcome: Ongoing, Progressing Flowsheets (Taken 01/22/2025 0756) Progress: no change Outcome Evaluation: Care plan reviewed with patient Goal: Patient-Specific Goal (Individualized) Outcome: Ongoing, Progressing Flowsheets (Taken 01/22/2025 0748) Patient/Family-Specific Goals (Include Timeframe): Patients pain will remain 5 or less this shift Individualized Care Needs: Pain Management Anxieties, Fears or Concerns: Addressed Goal: Absence of Hospital-Acquired Illness or Injury Outcome: Ongoing, Progressing Intervention: Identify and Manage Fall Risk Flowsheets (Taken 01/22/2025 0748) Safety Promotion/Fall Prevention: clutter-free environment maintained room organization consistent safety round/check completed Goal: Optimal Comfort and Wellbeing Outcome: Ongoing, Progressing Intervention: Monitor Pain and Promote Comfort Flowsheets (Taken 01/22/2025 0748) Pain Management Interventions: quiet environment facilitated relaxation techniques promoted pillow support provided position adjusted emotional support care clustered medication (see MAR) Problem: Skin Injury Risk Increased Goal: Skin Health and Integrity Outcome: Ongoing, Progressing Intervention: Promote and Optimize Oral Intake Flowsheets (Taken 01/22/2025 07) Oral Nutrition Promotion: social interaction promoted Nutrition Interventions: diet adjusted Problem: Fall Injury Risk Goal: Absence of Fall and Fall-Related Injury Outcome: Ongoing, Progressing Intervention: Promote Injury-Free Environment Flowsheets (Taken 01/22/2025 0748) Safety Promotion/Fall Prevention: clutter-free environment maintained room organization consistent safety round/check completed Problem: Infection Goal: Absence of Infection Signs and Symptoms Outcome: Ongoing, Progressing Intervention: Prevent or Manage Infection Flowsheets (Taken 01/22/2025 07) Infection Management: aseptic technique maintained Fever Reduction/Comfort Measures: lightweight clothing lightweight bedding Isolation Precautions: precautions maintained Problem: Self-Care Deficit Goal: Improved Ability to Complete Activities of Daily Living Outcome: Ongoing, Progressing Intervention: Promote Activity and Functional Burnett Flowsheets Taken 01/22/2025 0756 Adaptive Equipment Use: use encouraged Taken 01/22/2025 0748 Activity Assistance Provided: assistance, 2 people Self-Care Promotion: independence encouraged adaptive equipment use encouraged * Care Plan - Christina Fritz RN - 01/22/2025 2:28 AM EST Problem: Adult Inpatient Plan of Care Goal: Plan of Care Review Outcome: Ongoing, Progressing Flowsheets (Taken 01/22/2025 0225) Progress: no change Outcome Evaluation: pt agrees with POC Plan of Care Reviewed With: patient Goal: Patient-Specific Goal (Individualized) Outcome: Ongoing, Progressing Flowsheets (Taken 01/21/20251999) Patient/Family-Specific Goals (Include Timeframe): will cluster care and minimize awakenings duringthis shift Individualized Care Needs: promote sleep Anxieties, Fears or Concerns: pt wants to rest/sleep tonight. Goal: Absence of Hospital-Acquired Illness or Injury Outcome: Ongoing, Progressing Intervention: Identify and Manage Fall Risk Flowsheets (Taken 01/21/20251999) Safety Promotion/Fall Prevention: clutter-free environment maintained room organization consistent safety round/check completed Intervention: Prevent Skin Injury Flowsheets Taken 01/22/2025224 Skin Protection: pulse oximeter probe site changed incontinence pads utilized Taken 01/21/20251999 Body Position: weight shifting education provided heels elevated legs elevated Intervention: Prevent and Manage VTE (Venous Thromboembolism) Risk Flowsheets (Taken 01/21/20251999) VTE Prevention/Management: bilateral SCDs (sequential compression devices) on Intervention: Prevent Infection Flowsheets (Taken 01/22/2025224) Infection Prevention: single patient room provided hand hygiene promoted equipment surfaces disinfected rest/sleep promoted Goal: Optimal Comfort and Wellbeing Outcome: Ongoing, Progressing Intervention: Monitor Pain and Promote Comfort Flowsheets (Taken 01/21/20252116) Pain Management Interventions: medication (see MAR) Intervention: Provide Person-Centered Care Flowsheets (Taken 01/22/2025224) Trust Relationship/Rapport: care explained choices provided questions encouraged reassurance provided emotional support provided thoughts/feelings acknowledged empathic listening provided questions answered Problem: Skin Injury Risk Increased Goal: Skin Health and Integrity Outcome: Ongoing, Progressing Intervention: Optimize Skin Protection Flowsheets Taken 01/22/2025224 by Christina Fritz, RN Pressure Reduction Devices: pressure-redistributing mattress utilized Skin Protection: pulse oximeter probe site changed incontinence pads utilized Taken 01/21/20251999 by Christina Fritz, RN Activity Management: activity adjusted per tolerance Head of Bed (HOB) Positioning: HOB elevated Taken 01/21/2025 1128 by David Wheeler, RAI Pressure Reduction Techniques: heels elevated off bed Intervention: Promote and Optimize Oral Intake Flowsheets (Taken 01/22/2025224) Oral Nutrition Promotion: physical activity promoted Nutrition Interventions: food preferences provided Problem: Fall Injury Risk Goal: Absence of Fall and Fall-Related Injury Outcome: Ongoing, Progressing Intervention: Identify and Manage Contributors Flowsheets (Taken 01/22/2025224) Medication Review/Management: medications reviewed Self-Care Promotion: independence encouraged BADL personal objects within reach Intervention: Promote Injury-Free Environment Flowsheets (Taken 01/21/20251999) Safety Promotion/Fall Prevention: clutter-free environment maintained room organization consistent safety round/check completed Problem: Infection Goal: Absence of Infection Signs and Symptoms Outcome: Ongoing, Progressing Intervention: Prevent or Manage Infection Flowsheets (Taken 01/22/2025224) Infection Management: aseptic technique maintained Fever Reduction/Comfort Measures: lightweight bedding lightweight clothing Isolation Precautions: precautions maintained Problem: Self-Care Deficit Goal: Improved Ability to Complete Activities of Daily Living Outcome: Ongoing, Progressing Intervention: Promote Activity and Functional Burnett Flowsheets Taken 01/22/2025224 Self-Care Promotion: independence encouraged BADL personal objects within reach Taken 01/21/20251999 Activity Assistance Provided: assistance, 2 people * Progress Notes - Cleve Deleon MD - 01/21/2025 4:15 PM EST Subjective No acute events overnight. Discussed plan of care about weaning o2. Review of Systems Objective Vitals Temp: [36.5 ??C (97.7 ??F)-36.7 ??C (98.1 ??F)] 36.7 ??C (98.1 ??F) Heart Rate: [64-80] 77 Resp: [14-20] 20 BP: (129-167)/(61-75) 167/63 Physical Exam Cardiovascular: Rate and Rhythm: Normal rate and regular rhythm. Pulmonary: Breath sounds: Normal breath sounds. Abdominal: Palpations: Abdomen is soft. Musculoskeletal: Right lower leg: No edema. Left lower leg: No edema. Neurological: Mental Status: She is oriented to person, place, and time. Assessment & Plan Postoperative sepsis (CMS/HCC) Hypertension Diabetes mellitus Mixed hyperlipidemia Cellulitis of back except buttock Major depressive disorder with single episode, in remission (CMS/HCC) MRSA bacteremia MADELEINE (iron deficiency anemia) Gastroesophageal reflux disease without esophagitis Transaminitis Severe obesity (BMI 35.0-39.9) with comorbidity (CMS/HCC) 74 y.o. year-old female with PMH DM2, HTN, depression with anxiety, seizure disorder, GERD, acute diarrheal illness (recent C. diff), transferred here to [facility] from OSH for MRSA bacteremia. Spinal cord stimulator placed <3 weeks ago @ [facility]; Started on IV/oral vanc. Local surgeons declined case so transferred for further management. S/p device explantation on 01/16/25 with Neurosurgery. ID consulted, OPAT. MRSA bacteremia iso extensive cellulitis 2/ early post-op spinal cord stimulator placement S/p device explantation on 01/16/25 with Neurosurgery. ID consulted plan for 28 days of vancomycin , OPAT consulted end date 02/12 2025 - TTE unremarkable - Cultures from 01/18 remained negative, PICC line placed 01/20 New urine retention hx of incontinence - Eventually needing a Sanz placed 01/20 - UA shows greater than 50 WBCs, await cultures, although patient denies symptoms apart from retention -needs voiding trial next week Hypomagnesemia - Replete PRN Elevated liver enzymes, mild -RUQ US shows Mildly coarsened liver echotexture suggests parenchymal disease -daily LFTs -hepatitis screen negative HTN Resumed carvedilol Continue Procardia (started inpatient) Non insulin dependent Type 2 DM Plan: -Hypoglycemic protocol in place -A1c 7.8% -SSI - Started 5 units Lantus daily Mixed hyperlipidemia Plan: -Continue home Statin MADELEINE -Continue home Ferrous Sulfate - Continue serial lab assessment. GERD -Continue home PPI MDD -Continue home Trintellix and Elavil Seizure disorder? Plan: -Continue home Klonopin BID PRN -Seizure precautions Obesity Body mass index is 37.8 kg/m??. -Complicates all aspects of care ' Medically Ready for Discharge:Ready Now * Care Plan - David Wheeler RN - 01/21/2025 11:30 AM EST Problem: Adult Inpatient Plan of Care Goal: Plan of Care Review Outcome: Ongoing, Progressing Flowsheets (Taken 01/21/2025 1128) Progress: no change Outcome Evaluation: pt agreeable to POC Plan of Care Reviewed With: patient Goal: Patient-Specific Goal (Individualized) Outcome: Ongoing, Progressing Flowsheets (Taken 01/21/2025 0800) Patient/Family-Specific Goals (Include Timeframe): pt will reamin injury free by end of 12 hour shift. Individualized Care Needs: comfort measures Anxieties, Fears or Concerns: comfort Goal: Absence of Hospital-Acquired Illness or Injury Outcome: Ongoing, Progressing Intervention: Identify and Manage Fall Risk Flowsheets (Taken 01/21/20251127) Safety Promotion/Fall Prevention: clutter-free environment maintained Intervention: Prevent Skin Injury Flowsheets (Taken 01/21/20251127) Body Position: turned Skin Protection: incontinence pads utilized Intervention: Prevent and Manage VTE (Venous Thromboembolism) Risk Flowsheets (Taken 01/21/20251127) VTE Prevention/Management: bilateral SCDs (sequential compression devices) on education provided Intervention: Prevent Infection Flowsheets (Taken 01/21/20251127) Infection Prevention: hand hygiene promoted Goal: Optimal Comfort and Wellbeing Outcome: Ongoing, Progressing Intervention: Monitor Pain and Promote Comfort Flowsheets (Taken 01/21/20251127) Pain Management Interventions: medication (see MAR) Intervention: Provide Person-Centered Care Flowsheets (Taken 01/21/20251127) Trust Relationship/Rapport: emotional support provided Problem: Skin Injury Risk Increased Goal: Skin Health and Integrity Outcome: Ongoing, Progressing Intervention: Optimize Skin Protection Flowsheets (Taken 01/21/20251127) Activity Management: up in chair Pressure Reduction Techniques: heels elevated off bed Skin Protection: incontinence pads utilized Head of Bed (HOB) Positioning: HOB at 20-30 degrees Intervention: Promote and Optimize Oral Intake Flowsheets (Taken 01/21/20251127) Oral Nutrition Promotion: physical activity promoted Nutrition Interventions: supplemental drinks provided Problem: Fall Injury Risk Goal: Absence of Fall and Fall-Related Injury Outcome: Ongoing, Progressing Intervention: Identify and Manage Contributors Flowsheets (Taken 01/21/20251127) Medication Review/Management: medications reviewed Self-Care Promotion: independence encouraged Intervention: Promote Injury-Free Environment Flowsheets (Taken 01/21/20251127) Safety Promotion/Fall Prevention: clutter-free environment maintained Problem: Infection Goal: Absence of Infection Signs and Symptoms Outcome: Ongoing, Progressing Intervention: Prevent or Manage Infection Flowsheets (Taken 01/21/20251127) Fever Reduction/Comfort Measures: lightweight bedding lightweight clothing Isolation Precautions: precautions maintained Problem: Self-Care Deficit Goal: Improved Ability to Complete Activities of Daily Living Outcome: Ongoing, Progressing Intervention: Promote Activity and Functional Burnett Flowsheets (Taken 01/21/20251127) Activity Assistance Provided: assistance, 2 people Adaptive Equipment Use: other (see comments) Self-Care Promotion: independence encouraged * Care Plan - Christina Fritz RN - 01/20/2025 9:03 PM EST Problem: Adult Inpatient Plan of Care Goal: Plan of Care Review Outcome: Ongoing, Progressing Flowsheets (Taken 01/20/20252101) Progress: no change Outcome Evaluation: POC reviewed with pt. Plan of Care Reviewed With: patient Goal: Patient-Specific Goal (Individualized) Outcome: Ongoing, Progressing Flowsheets (Taken 01/20/20251999) Patient/Family-Specific Goals (Include Timeframe): will cluster care and minimize awakenings duringthis shift Individualized Care Needs: promote sleep Anxieties, Fears or Concerns: sleep Goal: Absence of Hospital-Acquired Illness or Injury Outcome: Ongoing, Progressing Intervention: Identify and Manage Fall Risk Flowsheets (Taken 01/20/20252101) Safety Promotion/Fall Prevention: activity supervised fall prevention program maintained Intervention: Prevent Skin Injury Flowsheets Taken 01/20/20252101 Skin Protection: incontinence pads utilized Taken 01/20/20251999 Body Position: turned left Intervention: Prevent and Manage VTE (Venous Thromboembolism) Risk Flowsheets (Taken 01/20/20251999) VTE Prevention/Management: bilateral SCDs (sequential compression devices) on Intervention: Prevent Infection Flowsheets (Taken 01/20/20252101) Infection Prevention: hand hygiene promoted rest/sleep promoted single patient room provided Goal: Optimal Comfort and Wellbeing Outcome: Ongoing, Progressing Intervention: Monitor Pain and Promote Comfort Flowsheets (Taken 01/20/20252017) Pain Management Interventions: medication (see MAR) Intervention: Provide Person-Centered Care Flowsheets (Taken 01/20/20252101) Trust Relationship/Rapport: care explained questions encouraged choices provided reassurance provided emotional support provided thoughts/feelings acknowledged empathic listening provided questions answered Problem: Skin Injury Risk Increased Goal: Skin Health and Integrity Outcome: Ongoing, Progressing Intervention: Optimize Skin Protection Flowsheets Taken 01/20/20252101 Pressure Reduction Techniques: frequent weight shift encouraged weight shift assistance provided Pressure Reduction Devices: pressure-redistributing mattress utilized Skin Protection: incontinence pads utilized Taken 01/20/20251999 Activity Management: activity adjusted per tolerance activity encouraged Head of Bed (HOB) Positioning: HOB elevated Intervention: Promote and Optimize Oral Intake Flowsheets (Taken 01/20/20252101) Oral Nutrition Promotion: physical activity promoted Nutrition Interventions: food preferences provided Problem: Fall Injury Risk Goal: Absence of Fall and Fall-Related Injury Outcome: Ongoing, Progressing Intervention: Identify and Manage Contributors Flowsheets (Taken 01/20/20252101) Medication Review/Management: medications reviewed Self-Care Promotion: independence encouraged BADL personal objects within reach Intervention: Promote Injury-Free Environment Flowsheets (Taken 01/20/20252101) Safety Promotion/Fall Prevention: activity supervised fall prevention program maintained Problem: Infection Goal: Absence of Infection Signs and Symptoms Outcome: Ongoing, Progressing Intervention: Prevent or Manage Infection Flowsheets (Taken 01/20/20252101) Infection Management: aseptic technique maintained Fever Reduction/Comfort Measures: lightweight bedding lightweight clothing Isolation Precautions: precautions maintained Problem: Self-Care Deficit Goal: Improved Ability to Complete Activities of Daily Living Outcome: Ongoing, Progressing Intervention: Promote Activity and Functional Burnett Flowsheets Taken 01/20/20252101 Self-Care Promotion: independence encouraged BADL personal objects within reach Taken 01/20/20251999 Activity Assistance Provided: assistance, 2 people * Procedures - Cailin Ha RN - 01/20/2025 5:07 PM ESTAssociated Order(s): Insert PICC line Insert PICC line Date/Time: 01/20/2025 5:08 PM Performed by: Cailin Ha RN Authorized by: Cleve Deleon MD [place] Protocol: Verbal consent obtained?: Yes Written consent obtained?: Yes Risks and benefits: Risks, benefits and alternatives were discussed Consent given by: Patient Patient states understanding of procedure being performed: Yes Patient's understanding of procedure matches consent: Yes Procedure consent matches procedure scheduled: Yes Relevant documents present and verified: Yes Test results available and properly labeled: Yes Site marked: Yes Imaging studies available: Yes Patient identity confirmed: Verbally with patient, hospital-assigned identification number and arm band Time out: Immediately prior to the procedure a time out was called Indications: Vascular access Local anesthetic: Lidocaine 2% without epinephrine Sedation: Patient sedated: No Preparation: Skin prepped with 2% chlorhexidine Skin prep agent dried: Skin prep agent completely dried prior to procedure Sterile barriers: All five maximal sterile barriers used - gloves, gown, cap, mask and large sterile sheet Hand hygiene: Hand hygiene performed prior to catheter insertion Orientation: Right Location (Adult): Basilic vein Site selection rationale: Pt preference. 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: [employer] Catheter placed: Single lumen Catheter size: 4 Fr Catheter trimmed length: 42 Catheter threaded length: 40 Vein placed in: SVC Catheter cm indwellin Catheter cm outside: 2 Placement confirmed by: X-ray Pre-procedure: Landmarks identified Ultrasound guidance: Yes Sterile ultrasound techniques: Sterile gel and sterile probe covers were used Number of attempts: 2 Post-procedure: Adhesive securement device and sterile access caps placed on each lumen Dressing applied: CHG tegaderm Assessment: Blood return through all ports and free fluid flow Patient tolerated the procedure well with no immediate complications.: Yes PICC kit educational material was given to the patient.: Yes Comments: Images uploaded to PACS. Spiked P wave noted on internal 3cg, however due to external EKG not showing P wave, xray ordered to confirm placement. Accessing vein was difficult on this pt. Basilic vein was 3cm deep. 2 attempts at accessing vein. Second attempt was proximal to first attempt. * Progress Notes - Cleve Deleon MD - 01/20/2025 12:16 PM EST Subjective Patient retained urine overnight and had to have a Sanz inserted. We will check a UA to rule out infection. The patient denies any symptoms. Discussed plan of care about PICC line. We will reach outto social work over the weekend to see plan about discharge after she has a PICC.. Review of Systems Objective Vitals Temp: [36.7 ??C (98.1 ??F)-37.1 ??C (98.8 ??F)] 36.8 ??C (98.2 ??F) Heart Rate: [65-77] 65 Resp: [14-18] 18 BP: (112-150)/(64-73) 129/67 Physical Exam Cardiovascular: Rate and Rhythm: Normal rate and regular rhythm. Pulmonary: Breath sounds: Normal breath sounds. Abdominal: Palpations: Abdomen is soft. Comments: Bandage on the back at her site of surgery, nontender to palpation Musculoskeletal: Right lower leg: No edema. Left lower leg: No edema. Neurological: Mental Status: She is oriented to person, place, and time. Assessment & Plan Postoperative sepsis (CMS/HCC) Hypertension Diabetes mellitus Mixed hyperlipidemia Cellulitis of back except buttock Major depressive disorder with single episode, in remission (CMS/HCC) MRSA bacteremia MADELEINE (iron deficiency anemia) Gastroesophageal reflux disease without esophagitis Transaminitis 74 y.o. year-old female with PMH DM2, HTN, depression with anxiety, seizure disorder, GERD, acute diarrheal illness (recent C. diff), transferred here to [facility] from OSH for MRSA bacteremia. Spinal cord stimulator placed <3 weeks ago @ [facility]; Started on IV/oral vanc. Local surgeons declined case so transferred for further management. S/p device explantation on 01/16/25 with Neurosurgery. ID consulted, OPAT. MRSA bacteremia iso extensive cellulitis 2/2 early post-op spinal cord stimulator placement S/p device explantation on 01/16/25 with Neurosurgery. ID consulted plan for 28 days of vancomycin , OPAT consulted end date 02/12 2025 - TTE unremarkable - Cultures from 01/18 remained negative, PICC line consult placed New urine retention - Eventually needing a Sanz placed 01/20 - UA shows greater than 50 WBCs, await cultures, although patient denies symptoms apart from retention Hypomagnesemia - Replete PRN Elevated liver enzymes, mild -RUQ US shows Mildly coarsened liver echotexture suggests parenchymal disease -daily LFTs -hepatitis screen negative HTN Resumed carvedilol Continue Procardia (started inpatient) )Non insulin dependent Type 2 DM Plan: -Hypoglycemic protocol in place -A1c 7.8% -SSI - Started 5 units Lantus daily #) Mixed hyperlipidemia Plan: -Continue home Statin MADELEINE - H/H = 9.4 (L)/28.1 (L) Plan: -Continue home Ferrous Sulfate - Continue serial lab assessment. - May require iron, folate, B12 supplementation as appropriate. - Transfuse as appropriate to target hgb > 7 GERD -Continue home PPI MDD -Continue home Trintellix and Elavil Seizure disorder? Plan: -Continue home Klonopin BID PRN -Seizure precautions #) Obesity Body mass index is 37.8 kg/m??. -Complicates all aspects of care ' Medically Ready for Discharge:Anticipated in 5+ Days * Care Plan - David Wheeler RN - 01/20/2025 10:15 AM EST Problem: Adult Inpatient Plan of Care Goal: Plan of Care Review Outcome: Ongoing, Progressing Flowsheets (Taken 01/20/2025 1013) Progress: no change Outcome Evaluation: pt agreeble to POC Plan of Care Reviewed With: patient Goal: Patient-Specific Goal (Individualized) Outcome: Ongoing, Progressing Flowsheets (Taken 01/20/2025 0800) Patient/Family-Specific Goals (Include Timeframe): pt will reamin injury free by end of 12 hour shift. Individualized Care Needs: comfort measures Anxieties, Fears or Concerns: comfort Goal: Absence of Hospital-Acquired Illness or Injury Outcome: Ongoing, Progressing Intervention: Identify and Manage Fall Risk Flowsheets (Taken 01/20/2025 1013) Safety Promotion/Fall Prevention: room organization consistent safety round/check completed Intervention: Prevent Skin Injury Flowsheets (Taken 01/20/2025 101) Body Position: turned Skin Protection: incontinence pads utilized Intervention: Prevent and Manage VTE (Venous Thromboembolism) Risk Flowsheets (Taken 01/20/2025 101) VTE Prevention/Management: bilateral SCDs (sequential compression devices) on education provided Intervention: Prevent Infection Flowsheets (Taken 01/20/2025 101) Infection Prevention: single patient room provided hand hygiene promoted Goal: Optimal Comfort and Wellbeing Outcome: Ongoing, Progressing Intervention: Monitor Pain and Promote Comfort Flowsheets (Taken 01/20/2025 1013) Pain Management Interventions: medication (see MAR) Intervention: Provide Person-Centered Care Flowsheets (Taken 01/20/2025 101) Trust Relationship/Rapport: questions encouraged Problem: Skin Injury Risk Increased Goal: Skin Health and Integrity Outcome: Ongoing, Progressing Intervention: Optimize Skin Protection Flowsheets (Taken 01/20/2025 101) Activity Management: education provided Pressure Reduction Techniques: frequent weight shift encouraged Skin Protection: incontinence pads utilized Head of Bed (HOB) Positioning: HOB at 20-30 degrees Intervention: Promote and Optimize Oral Intake Flowsheets (Taken 01/20/2025 101) Oral Nutrition Promotion: physical activity promoted Nutrition Interventions: food preferences provided Problem: Fall Injury Risk Goal: Absence of Fall and Fall-Related Injury Outcome: Ongoing, Progressing Intervention: Identify and Manage Contributors Flowsheets (Taken 01/20/20251012) Medication Review/Management: high-risk medications identified Self-Care Promotion: independence encouraged Intervention: Promote Injury-Free Environment Flowsheets (Taken 01/20/2025 101) Safety Promotion/Fall Prevention: room organization consistent safety round/check completed Problem: Infection Goal: Absence of Infection Signs and Symptoms Outcome: Ongoing, Progressing Intervention: Prevent or Manage Infection Flowsheets (Taken 01/20/2025 1013) Infection Management: aseptic technique maintained Fever Reduction/Comfort Measures: lightweight bedding lightweight clothing Isolation Precautions: precautions maintained Problem: Self-Care Deficit Goal: Improved Ability to Complete Activities of Daily Living Outcome: Ongoing, Progressing Intervention: Promote Activity and Functional Burnett Flowsheets (Taken 01/20/20251012) Activity Assistance Provided: assistance, 2 people Adaptive Equipment Use: other (see comments) Self-Care Promotion: independence encouraged * Care Plan - Christina Fritz RN - 01/20/2025 2:02 AM EST Problem: Adult Inpatient Plan of Care Goal: Plan of Care Review Outcome: Ongoing, Progressing Flowsheets (Taken 01/20/2025 0201) Progress: no change Outcome Evaluation: pt agrees with POC Plan of Care Reviewed With: patient Goal: Patient-Specific Goal (Individualized) Outcome: Ongoing, Progressing Flowsheets (Taken 01/19/20252007) Patient/Family-Specific Goals (Include Timeframe): wll cluster care and minimize awakenings during this shift Individualized Care Needs: promote sleep Anxieties, Fears or Concerns: pt wants to sleep Goal: Absence of Hospital-Acquired Illness or Injury Outcome: Ongoing, Progressing Intervention: Identify and Manage Fall Risk Flowsheets (Taken 01/20/2025199) Safety Promotion/Fall Prevention: activity supervised clutter-free environment maintained fall prevention program maintained nonskid shoes/slippers when out of bed safety round/check completed Intervention: Prevent Skin Injury Flowsheets Taken 01/20/2025200 Skin Protection: incontinence pads utilized Taken 01/20/2025199 Body Position: turned right Intervention: Prevent and Manage VTE (Venous Thromboembolism) Risk Flowsheets (Taken 01/20/2025199) VTE Prevention/Management: bilateral lower extremity SCDs (sequential compression devices) on Intervention: Prevent Infection Flowsheets (Taken 01/20/2025200) Infection Prevention: environmental surveillance performed equipment surfaces disinfected hand hygiene promoted rest/sleep promoted single patient room provided Goal: Optimal Comfort and Wellbeing Outcome: Ongoing, Progressing Intervention: Monitor Pain and Promote Comfort Flowsheets (Taken 01/19/20252116) Pain Management Interventions: medication (see MAR) Intervention: Provide Person-Centered Care Flowsheets (Taken 01/20/2025200) Trust Relationship/Rapport: care explained questions encouraged reassurance provided choices provided emotional support provided thoughts/feelings acknowledged empathic listening provided questions answered Problem: Skin Injury Risk Increased Goal: Skin Health and Integrity Outcome: Ongoing, Progressing Intervention: Optimize Skin Protection Flowsheets Taken 01/20/2025200 Pressure Reduction Techniques: frequent weight shift encouraged weight shift assistance provided Pressure Reduction Devices: pressure-redistributing mattress utilized Skin Protection: incontinence pads utilized Taken 01/20/2025199 Head of Bed (HOB) Positioning: HOB elevated Taken 01/19/20252007 Activity Management: activity adjusted per tolerance activity encouraged Intervention: Promote and Optimize Oral Intake Flowsheets (Taken 01/20/2025200) Oral Nutrition Promotion: physical activity promoted Nutrition Interventions: food preferences provided Problem: Fall Injury Risk Goal: Absence of Fall and Fall-Related Injury Outcome: Ongoing, Progressing Intervention: Identify and Manage Contributors Flowsheets (Taken 01/20/2025200) Medication Review/Management: medications reviewed Self-Care Promotion: BADL personal objects within reach independence encouraged Intervention: Promote Injury-Free Environment Flowsheets (Taken 01/20/2025 0200) Safety Promotion/Fall Prevention: activity supervised clutter-free environment maintained fall prevention program maintained nonskid shoes/slippers when out of bed safety round/check completed Problem: Infection Goal: Absence of Infection Signs and Symptoms Outcome: Ongoing, Progressing Intervention: Prevent or Manage Infection Flowsheets (Taken 01/20/2025 0201) Infection Management: aseptic technique maintained Fever Reduction/Comfort Measures: lightweight bedding lightweight clothing Isolation Precautions: precautions maintained Problem: Self-Care Deficit Goal: Improved Ability to Complete Activities of Daily Living Outcome: Ongoing, Progressing Intervention: Promote Activity and Functional Burnett Flowsheets Taken 01/20/2025 0201 Self-Care Promotion: BADL personal objects within reach independence encouraged Taken 01/19/20252007 Activity Assistance Provided: assistance, 2 people * Progress Notes - Cleve Deleon MD - 01/19/2025 2:34 PM EST Subjective No acute events overnight. This morning patient is comfortable, denies any new symptoms. Discussed plan of care with her at bedside. Review of Systems Objective Vitals Temp: [36.4 ??C (97.5 ??F)-37.3 ??C (99.1 ??F)] 37.2 ??C (99 ??F) Heart Rate: [57-77] 75 Resp: [14-16] 14 BP: (101-149)/(62-73) 147/71 Physical Exam Cardiovascular: Rate and Rhythm: Normal rate and regular rhythm. Pulmonary: Breath sounds: Normal breath sounds. Abdominal: Palpations: Abdomen is soft. Comments: Bandage on the back at her site of surgery, nontender to palpation Musculoskeletal: Right lower leg: No edema. Left lower leg: No edema. Neurological: Mental Status: She is oriented to person, place, and time. Assessment & Plan Postoperative sepsis (CMS/HCC) Hypertension Diabetes mellitus Mixed hyperlipidemia Cellulitis of back except buttock Major depressive disorder with single episode, in remission (CMS/HCC) MRSA bacteremia MADELEINE (iron deficiency anemia) Gastroesophageal reflux disease without esophagitis Transaminitis 74 y.o. year-old female with PMH DM2, HTN, depression with anxiety, seizure disorder, GERD, acute diarrheal illness (recent C. diff), transferred here to [facility] from OSH for MRSA bacteremia. Spinal cord stimulator placed <3 weeks ago @ [facility]; Started on IV/oral vanc. Local surgeons declined case so transferred for further management. S/p device explantation on 01/16/25 with Neurosurgery. ID consulted, OPAT. MRSA bacteremia iso extensive cellulitis 2/2 early post-op spinal cord stimulator placement S/p device explantation on 01/16/25 with Neurosurgery. ID consulted plan for 28 days of vancomycin , OPAT consulted - TTE unremarkable - Repeat cultures 01/18, remove PICC line 01/18 that was placed at outside facility, once cultures stay negative from 01/18 for at least [address] a new PICC line Hypomagnesemia - Replete PRN Elevated liver enzymes, mild -RUQ US shows Mildly coarsened liver echotexture suggests parenchymal disease -daily LFTs -hepatitis screen negative HTN Resumed carvedilol Continue Procardia (started inpatient) )Non insulin dependent Type 2 DM Plan: -Hypoglycemic protocol in place -A1c 7.8% -SSI #) Mixed hyperlipidemia Plan: -Continue home Statin MADELEINE - H/H = 9.4 (L)/28.1 (L) Plan: -Continue home Ferrous Sulfate - Continue serial lab assessment. - May require iron, folate, B12 supplementation as appropriate. - Transfuse as appropriate to target hgb > 7 GERD -Continue home PPI MDD -Continue home Trintellix and Elavil Seizure disorder? Plan: -Continue home Klonopin BID PRN -Seizure precautions #) Obesity Body mass index is 37.8 kg/m??. -Complicates all aspects of care ' Medically Ready for Discharge:Anticipated in 5+ Days * Progress Notes - Amanda Meza RN - 01/19/2025 11:36 AM EST Case Management Adult Progress Note Rosa Perdomo 74 y.o. female CSN: [id number] Admission: 01/15/2025 9:57 PM Primary Problem: Postoperative sepsis (CMS/HCC) Anticipated Discharge Date: 01/21 Has Discharge Plans Changed? No - home or agreeable to SNF (requesting [facility] if needed) Medicare Second Notice: Medicare Medicare Second Notice?: Yes Date Second Notice Completed: 01/19/25 Time Second Notice Completed: 1011 Medicare Second Notice Recieved By: Deion at this time, >48 hours till discharge. Housing Circumstances: Not Applicable Housing Circumstances Action Taken: Other none Medically Ready for Discharge: Anticipated in 5+ Days Additional Comments Plan of Care and Discharge Plan reviewed with care team this am. Patient was admitted on 01/15 with post operative sepsis (recent spinal cord stimulator placed about 3 weeks ago). On IV abx - 28 d therapy with Daptomycin. Neurosurgery consulted and went to OR on 01/16 for removal of stimulator. PICC l ine to be replaced on/after 01/20 if cultures remain negative. Not medically ready for discharge, but will be once PICC in placed. PT/OT recs for Acute. Patient requesting [facility] because it is closer to home. Spouse had also previously indicated that Is where they would want her to go. Spoke with Stacey at facility (admissions) who is reviewing. Referrals also sent to other facilities. CM will continue to follow for discharge needs. Amanda Meza RN * Progress Notes - Renae Resendiz, COMPLIANCE REVIEW SPECIALIST, DNP - 01/19/2025 11:01 AM EST Images from the original note were not included. GENERAL INFECTIOUS DISEASE PROGRESS NOTE Primary Attending: Cleve Deleon MD Subjective: No acute events. Tolerating antibiotics. Minimal pain reported - walked some yesterday. Surgical dressings in place on lower back -C/D/I Objective: Visit Vitals BP (!) 149/70 (BP Location: Right arm, Patient Position: Sitting) Pulse 71 Temp 36.6 ??C (97.9 ??F) (Oral) Resp 14 Ht 1.6 m (5' 3 ) Wt 96.6 kg (213 lb) SpO2 96% BMI 37.73 kg/m?? Smoking Status Never BSA 2.07 m?? Physical Exam Vitals reviewed. Constitutional: Appearance: She is obese. HENT: Nose: Nose normal. Mouth/Throat: Mouth: Mucous membranes are moist. Cardiovascular: Rate and Rhythm: Normal rate and regular rhythm. Pulses: Normal pulses. Heart sounds: Normal heart sounds. Pulmonary: Effort: Pulmonary effort is normal. Abdominal: Palpations: Abdomen is soft. Musculoskeletal: General: Normal range of motion. Cervical back: Normal range of motion. Skin: Capillary Refill: Capillary refill takes less than 2 seconds. Neurological: Mental Status: She is alert and oriented to person, place, and time. Psychiatric: Mood and Affect: Mood normal. Labs: CBC WBC ?? Hb ?? Plt ?? Hct ?? ANC ?? BMP Na ?? Cl ?? BUN ?? Glu ?? K ?? Co2 ?? Cr ?? Mg 2.1, Phos 3.0 LFT AST ?? AlkPhos ?? T Prot ?? ALK ?? Bili ?? Alb ?? D.Bili ?? Results from last 7 days Lab Units 01/16/25 0036 CRP mg/L 108.5* Results from last 7 days Lab Units 01/16/25 0036 SED RATE mm/hr 96* Imaging/Studies: Echo, Adult Transthoracic Complete Result Date: 01/17/2025 Narrative: Left Ventricle: The left ventricle is normal size. The left ventricular systolic function is normal. The LVEF is visually estimated at 60 - 70%. The diastolic function is normal. The left ventricular filling pressure is elevated. Right Ventricle: The right ventricle is grossly normal in size. The right ventricular systolic function is normal. The estimated right ventricular systolic pressure is 72 mmHg. Right ventricular systolic pressure is severely elevated (>70mmHg). All cardiac valves were reasonably well interrogated with 2D imaging and/or Doppler assessment and no significant valve regurgitation or stenosis is seen. There is no recent study available for direct [id number] comparison. CT Lumbar Spine w IV Contrast Result Date: 01/17/2025 Narrative: CLINICAL INDICATION: Lumbar radiculopathy, infection suspected, no prior imaging TECHNIQUE: Imaging of the entire lumbar spine was performed using spiral technique, with the administrationof intravenous contrast. Images were reconstructed in the axial plane at multiple slice thicknesseson bone and soft tissue algorithm. Reformatted images in the coronal and sagittal planes were generated. 100 ml of Omnipaque 300 were administered. TOTAL DLP (Dose-Length Product): 816.50 mGy.cm mGy*cm. Please note: The reported value represents the total of one or more individual components duringthe CT acquisition on this date and at this time, and as such, the same value may appear in more than one CT report depending on the interpreting/reporting physicians. COMPARISON: Lumbar spine CT 01/13/2025.. FINDINGS: Diagnostic Quality: Adequate Alignment: Grade I anterolisthesis of L5 on S1. Vertebral bodies and intervertebral discs: Chronic L1 fracture status post vertebral augmentation. Thereis retropulsion of the posterior fracture fragment of the spinal canal resulting in mild spinal canal stenosis, similar to prior CT. Interval removal of spinal cord stimulator with small focus of airin the spinal canal. Vertebral body heights are otherwise maintained. Multilevel disc height loss with vacuum disc phenomenon at L2-L3 and L4-L5. No acute fracture is present. Anatomic variants: None. 5 Lumbarized vertebral bodies are present. Degenerative changes: Multilevel disc bulge most pronounced at L3-L4 and L4-L5. Multilevel facet arthropathy. No significant spinal canal stenosis. Severe right and moderate left neural foraminal stenosis at L4-L5. Moderate bilateral neural foraminal stenosis at L5-S1. Mild bilateral neural foraminal stenosis at L2-L3 and L3-L4. Prevertebral and Paraspinal Soft Tissues: Small amount of fluid and air at the site of the removed generator, presumably postsurgical. Right renal cyst. Impression: Interval removal of spinal cord stimulator. Fluid and air at the site of removed hardware, presumably postsurgical. CRITICAL RESULT: No COMMUNICATION: Per this written report. Drafted by Ar Wick MD on 01/17/2025 1:05 PM Final report signed by Ar Wick MD on 01/17/2025 1:25 PM Microbiology: Culture results from [facility] Susceptibility data from last 90 days. Collected Specimen Info Organism Clindamycin Daptomycin Erythromycin Gentamicin Linezolid Minocycline Oxacillin Penicillin G Tetracycline Trimethoprim/Sulfamethoxazole Vancomycin 01/16/25 Foreign Body from Back, Lower Staphylococcus aureus (1) Staphylococcus aureus (2) 01/16/25 Abscess from Back, Lower Methicillin-Resistant Staphylococcus aureus (1) S S R S S S R R SS S Methicillin-Resistant Staphylococcus aureus (2) S S R S S S R R S S S Results Procedure Component Value Units Date/Time Blood Culture (Aerobic/Anaerobet Set) [[id number]] Collected: 01/18/25 1323 Order Status: Sent Specimen: Blood, Venous Fungal Culture, Routine [[id number]] Collected: 01/16/25 1605 Order Status: Completed Specimen: Abscess from Back, Lower Updated: 01/18/25 1041 Culture No Fungal Growth <1 Week Fungal Culture, Tissue and DEANDRE [[id number]] Collected: 01/16/25 1614 Order Status: Completed Specimen: Foreign Body from Back, Lower Updated: 01/18/25 1022 Culture Reading Mycological 4 Weeks No Fungal Growth <1 Week DEANDRE Source not suitable for smear Blood Culture (Aerobic/Anaerobet Set) [[id number]] Collected: 01/16/25 0128 Order Status: Completed Specimen: Blood from Hand, Right Updated: 01/18/25 0403 Culture No growth at day 2 Routine Culture and Gram Stain [[id number]] (Abnormal) Collected: 01/16/25 1614 Order Status: Completed Specimen: Foreign Body from Back, Lower Updated: 01/17/25 1327 Culture Heavy Growth 4+ Biotype 1 Staphylococcus aureus 2+ Biotype 2 Staphylococcus aureus Abscess Culture and Gram Stain [[id number]] (Abnormal) Collected: 01/16/25 1605 Order Status: Completed Specimen: Abscess from Back, Lower Updated: 01/17/25 1321 Culture Light Growth 1+ Biotype 1 Staphylococcus aureus Comment: The organism value for this result has been updated. These results have been appended to the previously preliminary verified report. 1+ Biotype 2 Staphylococcus aureus Comment: The organism value for this result has been updated. These results have been appended to the previously preliminary verified report. Gram Stain Result Rare Gram positive cocci in pairs and chains Numerous Polymorphonuclear leukocytes AFB Culture, Non Respiratory Source and Acid Fast Stain [[id number]] Collected: 01/16/25 1614 Order Status: Completed Specimen: Foreign Body from Back, Lower Updated: 01/17/25 0557 Acid Fast Stain Source not suitable for smear Anaerobic Culture [[id number]] Collected: 01/16/25 1605 Order Status: Sent Specimen: Abscess from Back, Lower Updated: 01/16/25 1710 AFB Culture, Non Respiratory Source and Acid Fast Stain [[id number]] Collected: 01/16/25 1605 Order Status: Canceled Specimen: Abscess from Back, Lower Updated: 01/16/25 171 Fungal Culture, Sterile Body Fluid (NOT CSF) and DEANDRE [[id number]] Collected: 01/16/25 1605 Order Status: Canceled Specimen: Abscess from Back, Lower Updated: 01/16/251709 Anaerobic Culture [[id number]] Collected: 01/16/25 1614 Order Status: Sent Specimen: Foreign Body from Back, Lower Updated: 01/16/25 171 Antimicrobials: -- Vancomycin IV 1500mg Q24H 01/16 - present -- Cefepime IV 2g Q12H 01/16 - 01/17 -- Metronidazole PO 500mg Q8H 01/16 - 01/17 Assessment: Patient Summary: Rosa Perdomo is a 74 y.o. female with history of DM2, hypertension, depression and anxiety, GERD was transferred to [facility] from outside facility for concern of MRSA bacteremia on 01/15. About 3 weeks ago she underwent spinal cord stimulator placement for spinal arthritis pain management. Blood cultures obtained at the facility (01/14) showed MRSA and she was transferred to [facility] for further management. Blood cultures collected at [facility] on 01/16 show NGTD. NSGY took her to the OR 01/16 for explantation of her stimulator device with purulence noted. NSGY started Ms. Perdomo on cefepime and metronidazole post- operatively, however these were discontinued 01/17. PICC was placed 01/15 at OSH - unfortunately, it appears that this line was placed before blood cultures were cleared at [facility]. If 01/16 cultures continue to remain negative, however PICC line wasn't removed until this afternoon due patient preference and lack of alternative access. Repeat blood cultures collected yesterday after PICC was removed - no growth so far. 01/16 cultures remain negative. 48 hour line holiday is needed and then new PICC can be placed (01/20) for 28d therapy with Daptomycin. Surgical team didn't note any bone involvement in their operative note. No indication of SENIOR JAVASCRIPT ENGINEER involvement. OPAT orders are in - will need to assess ability of family to assist with abx administration; it sounds like facility placement may be considered due to inconsistency with family assistance. Problem List: MRSA Bacteremia - 01/14/2025, cleared (thus far) on repeat cultures 01/16, 01/19 cultures negative sofar Infected spinal stimulator s/p extraction 01/17/25 PICC (POA) placed in setting of bacteremia DM, HTN, Depression, Anxiety Recommendations: Continue IV Vanco via USGPIV with pharmacy managing dosing. Line holiday 48h - new PICC can be placed if cultures remain negative tomorrow 01/20. GENERAL ID will continue to follow. Renae Resendiz APRN, [facility] Infectious Diseases secure chat preferred Cosigned by Asher Sinha MD at 01/19/2025 6:01 PM EST Associated attestation - Asher Sinha MD - 01/19/2025 6:01 PM EST I saw and evaluated the patient with the resident/fellow. I discussed the case with the resident/fellow and agree with the findings and plan as documented. Impressions: MRSA Bacteremia - 01/14/2025, cleared (thus far) on repeat cultures 01/16, 01/18 negative to date Infected spinal stimulator s/p extraction 01/17/25, cultures with 2 biotypes MRSA PICC (POA) placed in setting of bacteremia, now s/p removal DM, HTN, Depression, Anxiety Recommendations: Continue vancomycin while inpatient - depending on accepting facility and monitoring abilities, favor switching to daptomycin upon discharge (if we switch to dapto- we'd do 10mg/kg IV q24h) - [facility] would treat for 4 weeks from 01/16/2025 (through 02/12/2025) In case we need to do this - would recommend getting CK with next lab draw so we have a baseline Discussed this plan with our OPAT team today Per NSGy attending in the OR - cannot say that by certainty, as we just pull the wires and this one came very easy, so we didn't need to dive deeply. but it appeared to be superficial and localized to the device location. F/up cultures to completion Can replace PICC at 48h of negative cultures from 01/18 Please obtain CK so we have a baseline ID will s/o but keep on our list in case of questions when she goes out (sent message to primary team tonight) OPAT modified MDM attestation - Today, I am treating the patient for MRSA bacteremia which can cause sepsis in the short-term future in the absence of appropriate treatment, as described in the note. - Independently interpreted test BCx which shows MRSA. - Discussed management of MRSA BSI with primary team and consulting services. - Discussed test interpretation of BCx with primary team - Reviewed notes by primary team and consulting services to determine appropriate plan of care as in the note. - Estimated Creatinine Clearance: 62.8 mL/min (by C-G formula based on SCr of 0.87 mg/dL).reviewed;antibiotics recommended above are dosed accordingly. - The patient is being intensively monitored for antimicrobial toxicity from IV ABX with the following tests: CBC, CMP. The following complex inpatient infectious disease services were performed today: Complex antimicrobial therapy counseling and treatment * Consults - Suellen Pleitez - 01/19/2025 9:50 AM EST Adult Nutrition Evaluation Note Rosa Perdomo 74 y.o. female CSN: [id number] Room/Bed 135/135A Nutrition evaluation type: follow-up Reason for evaluation: Hospital course: 74 y/o F presented as a transfer from OSH for MRSA bacteremia. 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 S/p device explantation on 01/16/25 with Neurosurgery. Past medical/ surgical history: Past Medical History[1] Surgical History[2] Social history: Additional comments: 01/16: Pt seen at bedside with spouse present. Decreased appetite for the past ~1-2 weeks while at OSH, otherwise normal at home. Unintentional weight gain recently. Used to weigh ~180#, now weighing ~200+. No chewing issues but does report swallowing difficulty. Solids get stuck going down. Spouse reports hx of esophageal dilation. No issues at this time with N/V/D/C. Anticipating surgery sometime this PM. 01/19: Spoke with patient at bedside. Reports appetite is improving but is not back to usual appetite. Requests ONS. Vitals and Basic Assessment: BP: (!) 147/71 Temp: 37.2 ??C (99 ??F) Oxygen Therapy: Supplemental oxygen O2 Delivery Method: Nasal cannula Lincoln Coma Scale Score: 15 Isael Scale Score: 15 Rocco/Cubbin Pressure Risk Score: 36 Most Recent BM Date: 01/15/25 Edema: Right lower extremity, Left lower extremity Skin: wound left upper leg, vagina Allergies: no known food allergies Medications: Current Scheduled Medications[3] Current Continuous Medications[4] Current PRN Medications[5] Meds were reviewed: Yes Labs: Lab Results Component Value Date WBC 10.71 (H) 01/18/2025 HGB 9.0 (L) 01/18/2025 HCT 27.4 (L) 01/18/2025 MCV 98 01/18/2025 PLT 400 (H) 01/18/2025 Lab Results Component Value Date GLUCOSE 151 (H) 01/18/2025 CALCIUM 8.4 (L) 01/18/2025 NA 142 01/18/2025 K 4.0 01/18/2025 CO2 25 01/18/2025 CL 104 01/18/2025 BUN 16 01/18/2025 CREATININE 0.90 01/18/2025 PHOS 3.0 01/19/2025 MG 2.1 01/19/2025 HGBA1C 7.8 (H) 01/16/2025 Lab Results Component Value Date CRP 108.5 (H) 01/16/2025 Lab Results Component Value Date ALT 53 (H) 01/18/2025 AST 70 (H) 01/18/2025 ALKPHOS 263 (H) 01/18/2025 BILITOT 0.3 01/18/2025 Anthropometrics: Height: 160 cm (5' 3 ) Weight: 96.6 kg (213 lb) BMI (Calculated): 37.74 Weight Evaluation: Obese-Class 2 (BMI 35-39.9) Elmore Body Weight (kg): 52.2 Percent Elmore Body Weight: 185 Adjusted Body Weight (kg): 63.4 Wt Readings from Last 10 Encounters: 01/16/25 96.6 kg (213 lb) 07/30/22 89.8 kg (198 lb) Estimated Needs: Metabolic Cart Study Results: Current Nutrition Intake: Diet Order: Adult Diet Diet Texture: Regular Adult Carbohydrate Restriction: Consistent CHO 2 ([id number] Feng, 80 g/meal) Percent Meals Eaten (%): 82% avg x 4 meals Diet Experience and Nutrition History: Diet Education Provided: Will monitor Pertinent home medications: Yarsani needs: Nutrition Focused Physical Exam: Physical exam performed on (date): 01/16 Temples (muscles): None Clavicle (muscle): None Shoulder (muscle): None Interosseous (muscle): None Orbital (fat): None Triceps (fat): None Energy Intake: Decreased appetite for the past 1-2 weeks while admitted at OSH, previously eating normally Weight Loss: Weight gain unintentionally - used to weigh ~180#, now believes she's weighing ~200# Assessment of Malnutrition: Malnutrition Identified: No Nutrition Problem: Increased nutrient needs kcal, pro related to increased biological demand as evidenced by postoperative infection. Status of Nutrition Diagnosis: Ongoing Nutrition Interventions and Recommendations: - Continue Regular, CC2 diet - Add Boost Glucose Control BID Nutrition Monitoring and Goals: - Will monitor PO intake, weight status, lab results, GI tolerance, and skin integrity - Pt will have adequate source of nutrition by follow up - Pt will maintain weight this admission Acuity Level: 1 Suellen Pleitez, RD, LD [1] Past Medical History: Diagnosis Date Abnormal EKG Anemia Breast cyst CKD (chronic kidney disease) stage 3, GFR 30-59 ml/min (CMS/HCC) Depression Diabetes mellitus Dyspnea HLD (hyperlipidemia) HTN (hypertension) Mitral valve prolapse Paroxysmal A-fib RSV (respiratory syncytial virus infection) Sciatica SVT (supraventricular tachycardia) (CMS/HCC) Trigger finger [2] Past Surgical History: Procedure Laterality Date CHOLECYSTECTOMY COLONOSCOPY ESOPHAGOGASTRODUODENOSCOPY HERNIA REPAIR WRIST SURGERY [3] amitriptyline, 25 mg, Oral, Nightly carvedilol, 25 mg, Oral, BID enoxaparin, 40 mg, Subcutaneous, Daily ferrous sulfate, 324 mg, Oral, BID with meals insulin lispro, 0-5 Units, Subcutaneous, TID with meals insulin lispro, 0-3 Units, Subcutaneous, Twice at night miconazole nitrate, , Topical, BID mupirocin, 1 Application, Each Nostril, BID NIFEdipine XL, 30 mg, Oral, Daily nystatin, 1 Application, Topical, BID pantoprazole, 40 mg, Oral, BID rosuvastatin, 10 mg, Oral, Daily sodium chloride, 10 mL, Intravenous, q12h sodium chloride, 10 mL, Intravenous, q12h [START ON 01/20/2025] vancomycin, 1,250 mg, Intravenous, q24h Vortioxetine HBr, 20 mg, Oral, Daily [4] sodium chloride, 10 mL/hr, Last Rate: Stopped (01/19/25 08) [5] PRN medications: bisacodyl, clonazePAM, glucose OR dextrose 10 % OR dextrose 10 % OR glucagon (human recombinant), ipratropium-albuterol, melatonin, ondansetron ODT OR ondansetronOR ondansetron, oxyCODONE, simethicone, sodium chloride, Insert peripheral IV AND Saline lock IV AND sodium chloride AND sodium chloride, sodium chloride * Care Plan - Scar Simpson RN - 01/19/2025 9:15 AM EST Problem: Adult Inpatient Plan of Care Goal: Plan of Care Review Outcome: Ongoing, Progressing Flowsheets (Taken 01/19/2025912) Progress: no change Outcome Evaluation: pt agreeable to current POC Plan of Care Reviewed With: patient Goal: Patient-Specific Goal (Individualized) Outcome: Ongoing, Progressing Flowsheets (Taken 01/19/2025799) Patient/Family-Specific Goals (Include Timeframe): patient will remain free from falls and injury during shift Individualized Care Needs: saftey Anxieties, Fears or Concerns: none stated Goal: Absence of Hospital-Acquired Illness or Injury Outcome: Ongoing, Progressing Intervention: Identify and Manage Fall Risk Flowsheets (Taken 01/19/2025799) Safety Promotion/Fall Prevention: activity supervised Intervention: Prevent Skin Injury Flowsheets (Taken 01/19/2025799) Body Position: turned left Skin Protection: incontinence pads utilized Intervention: Prevent and Manage VTE (Venous Thromboembolism) Risk Flowsheets (Taken 01/19/2025799) VTE Prevention/Management: bilateral lower extremity SCDs (sequential compression devices) on Intervention: Prevent Infection Flowsheets (Taken 01/19/2025912) Infection Prevention: hand hygiene promoted environmental surveillance performed personal protective equipment utilized equipment surfaces disinfected rest/sleep promoted single patient room provided Goal: Optimal Comfort and Wellbeing Outcome: Ongoing, Progressing Intervention: Monitor Pain and Promote Comfort Flowsheets (Taken 01/19/2025799) Pain Management Interventions: medication (see MAR) Intervention: Provide Person-Centered Care Flowsheets (Taken 01/19/2025912) Trust Relationship/Rapport: care explained questions answered emotional support provided questions encouraged choices provided reassurance provided thoughts/feelings acknowledged empathic listening provided Problem: Skin Injury Risk Increased Goal: Skin Health and Integrity Outcome: Ongoing, Progressing Intervention: Optimize Skin Protection Flowsheets Taken 01/19/2025912 Pressure Reduction Techniques: frequent weight shift encouraged Pressure Reduction Devices: pressure-redistributing mattress utilized Taken 01/19/2025799 Activity Management: activity adjusted per tolerance Skin Protection: incontinence pads utilized Head of Bed (HOB) Positioning: HOB elevated Intervention: Promote and Optimize Oral Intake Flowsheets (Taken 01/19/2025912) Oral Nutrition Promotion: physical activity promoted Nutrition Interventions: food preferences provided Problem: Fall Injury Risk Goal: Absence of Fall and Fall-Related Injury Outcome: Ongoing, Progressing Intervention: Identify and Manage Contributors Flowsheets (Taken 01/19/2025912) Medication Review/Management: medications reviewed Self-Care Promotion: independence encouraged BADL personal objects within reach BADL personal routines maintained Intervention: Promote Injury-Free Environment Flowsheets (Taken 01/19/2025799) Safety Promotion/Fall Prevention: activity supervised Problem: Infection Goal: Absence of Infection Signs and Symptoms Outcome: Ongoing, Progressing Intervention: Prevent or Manage Infection Flowsheets Taken 01/19/2025912 Infection Management: aseptic technique maintained Fever Reduction/Comfort Measures: lightweight bedding lightweight clothing Taken 01/19/2025799 Isolation Precautions: precautions maintained protective Problem: Self-Care Deficit Goal: Improved Ability to Complete Activities of Daily Living Outcome: Ongoing, Progressing Intervention: Promote Activity and Functional Burnett Flowsheets Taken 01/19/2025912 Adaptive Equipment Use: used independently Self-Care Promotion: independence encouraged BADL personal objects within reach BADL personal routines maintained Taken 01/19/2025799 Activity Assistance Provided: assistance, 2 people * Progress Notes - Kelsy-Sierra Flores, PharmD - 01/19/2025 7:52 AM EST Pharmacokinetic Consult - Therapeutic Drug Monitoring HPI and Hospital Course: Rosa Perdomo is a 74 y.o. female presenting with MRSA bacteremia. who continues on vancomycin for . Pharmacy was consulted for management of vancomycin. Levels were obtained to assess safety and efficacy of current dosing regimen. Dose History: Recent Vancomycin Admin vancomycin (Vancocin) 1,500 mg in sodium chloride 0.9% 250 mL IVPB (vial adapter required) (mg) 1,500 mg New Bag 01/19/25 0300 1,500 mg New Bag 01/18/25 0235 Restarted 01/17/25 0231 1,500 mg New Bag 0226 vancomycin (Vancocin) 2,500 mg in sodium chloride 0.9 % 500 mL IVPB (mg) 2,500 mg Given 01/16/25 0136 Creatinine, Plasma (mg/dL) Date/Time Value 01/18/2025 0456 0.90 01/17/2025 0231 0.87 01/16/2025 0036 0.97 Estimated Creatinine Clearance: 60.7 mL/min (by C-G formula based on SCr of 0.9 mg/dL). Vancomycin Pharmacokinetic Evaluation: Current Dose: 1500 mg IV Q24 hr infused over 90 min Date/Time of Most Recent Dose: 01/19/25 030 C1 random (ug/mL): 39.7 mcg/mL C2 trough (ug/mL): 16.4 mcg/mL Vancomycin ke (hr ^-1): 0.0442 Vancomycin half-life (hr): 15.7 Cmax, actual (ug/mL): 42.58 Ctrough, actual (ug/mL): 15.75 Vancomycin Vd (L): Vancomycin Vd (L/kg): Steady state Vd : 52.133 Steady state Vd : 0.54 Vancomycin AUC 24hr (mg??hr/L): 651 Recommended TDD: 1152 mg New Total Daily Dose (mg): 1250 mg IV q24h infused over 75 min New predicted vancomycin Peak: 35.68 New predicted vancomycin Trough: 13.05 New predicted vancomycin AUC: 542 Assessment and Recommendations: 1. Levels drawn appropriately 2. Recommend adjusting current regimen to vancomycin 1250 mg IV every 24 hours. 3) Monitor renal function (SCr and BUN) and UOP at least 2-3x/week or more frequently if renal function changes. 4) Obtain repeat vancomycin levels (trough & peak to calculate AUC) around the 4th dose of new regimen or sooner if renal function changes. Pharmacy will continue to follow, Submitted by: Sierra Odonnell PharmD 01/19/2025 7:51 AM * Care Plan - Christina Fritz RN - 01/18/2025 8:00 PM EST Problem: Adult Inpatient Plan of Care Goal: Plan of Care Review Outcome: Ongoing, Progressing Flowsheets (Taken 01/18/20251958) Progress: no change Outcome Evaluation: reviewd POC with patient. Denies any questions/concerns Plan of Care Reviewed With: patient Goal: Patient-Specific Goal (Individualized) Outcome: Ongoing, Progressing Flowsheets (Taken 01/18/20251954) Patient/Family-Specific Goals (Include Timeframe): will cluster care/minimize awakenings during this shift Individualized Care Needs: sleep/delirium precautions Anxieties, Fears or Concerns: denies Goal: Absence of Hospital-Acquired Illness or Injury Outcome: Ongoing, Progressing Intervention: Identify and Manage Fall Risk Flowsheets (Taken 01/18/20251954) Safety Promotion/Fall Prevention: activity supervised Intervention: Prevent Skin Injury Flowsheets Taken 01/18/20251958 Skin Protection: incontinence pads utilized pulse oximeter probe site changed Taken 01/18/20251954 Body Position: turned right Intervention: Prevent and Manage VTE (Venous Thromboembolism) Risk Flowsheets (Taken 01/18/20251954) VTE Prevention/Management: bilateral lower extremity SCDs (sequential compression devices) on Intervention: Prevent Infection Flowsheets (Taken 01/18/20251958) Infection Prevention: environmental surveillance performed equipment surfaces disinfected hand hygiene promoted rest/sleep promoted single patient room provided Goal: Optimal Comfort and Wellbeing Outcome: Ongoing, Progressing Intervention: Monitor Pain and Promote Comfort Flowsheets (Taken 01/18/20251954) Pain Management Interventions: pillow support provided position adjusted quiet environment facilitated relaxation techniques promoted rest Intervention: Provide Person-Centered Care Flowsheets (Taken 01/18/20251958) Trust Relationship/Rapport: care explained questions encouraged choices provided reassurance provided emotional support provided thoughts/feelings acknowledged empathic listening provided questions answered Problem: Skin Injury Risk Increased Goal: Skin Health and Integrity Outcome: Ongoing, Progressing Intervention: Optimize Skin Protection Flowsheets Taken 01/18/20251958 Pressure Reduction Techniques: frequent weight shift encouraged heels elevated off bed weight shift assistance provided Pressure Reduction Devices: pressure-redistributing mattress utilized Skin Protection: incontinence pads utilized pulse oximeter probe site changed Head of Bed (HOB) Positioning: HOB elevated Taken 01/18/20251954 Activity Management: activity adjusted per tolerance activity encouraged Intervention: Promote and Optimize Oral Intake Flowsheets (Taken 01/18/20251958) Oral Nutrition Promotion: physical activity promoted Nutrition Interventions: food preferences provided meals from home/family encouraged Problem: Fall Injury Risk Goal: Absence of Fall and Fall-Related Injury Outcome: Ongoing, Progressing Intervention: Identify and Manage Contributors Flowsheets (Taken 01/18/20251958) Medication Review/Management: medications reviewed Self-Care Promotion: independence encouraged BADL personal objects within reach Intervention: Promote Injury-Free Environment Flowsheets (Taken 01/18/20251954) Safety Promotion/Fall Prevention: activity supervised Problem: Infection Goal: Absence of Infection Signs and Symptoms Outcome: Ongoing, Progressing Intervention: Prevent or Manage Infection Flowsheets (Taken 01/18/20251958) Infection Management: aseptic technique maintained Fever Reduction/Comfort Measures: lightweight bedding lightweight clothing Isolation Precautions: precautions maintained Problem: Self-Care Deficit Goal: Improved Ability to Complete Activities of Daily Living Outcome: Ongoing, Progressing Intervention: Promote Activity and Functional Burnett Flowsheets Taken 01/18/20251958 Self-Care Promotion: independence encouraged BADL personal objects within reach Taken 01/18/20251954 Activity Assistance Provided: assistance, 2 people * Progress Notes - Cleve Deleon MD - 01/18/2025 4:10 PM EST Subjective No acute events overnight. This morning patient is comfortable, denies any new symptoms. Discussed plan of care with her at bedside. Review of Systems Objective Vitals Temp: [36.6 ??C (97.9 ??F)-37.4 ??C (99.3 ??F)] 37.3 ??C (99.1 ??F) Heart Rate: [68-88] 77 Resp: [14-31] 16 BP: (131-177)/(47-109) 131/69 Physical Exam Cardiovascular: Rate and Rhythm: Normal rate and regular rhythm. Pulmonary: Breath sounds: Normal breath sounds. Abdominal: Palpations: Abdomen is soft. Comments: Bandage on the back at her site of surgery, nontender to palpation Musculoskeletal: Right lower leg: No edema. Left lower leg: No edema. Neurological: Mental Status: She is oriented to person, place, and time. Assessment & Plan Postoperative sepsis (CMS/HCC) Hypertension Diabetes mellitus Mixed hyperlipidemia Cellulitis of back except buttock Major depressive disorder with single episode, in remission (CMS/HCC) MRSA bacteremia MADELEINE (iron deficiency anemia) Gastroesophageal reflux disease without esophagitis Transaminitis 74 y.o. year-old female with PMH DM2, HTN, depression with anxiety, seizure disorder, GERD, acute diarrheal illness (recent C. diff), transferred here to [facility] from OSH for MRSA bacteremia. Spinal cord stimulator placed <3 weeks ago @ [facility]; Started on IV/oral vanc. Local surgeons declined case so transferred for further management. S/p device explantation on 01/16/25 with Neurosurgery. ID consulted, OPAT. MRSA bacteremia iso extensive cellulitis 2/2 early post-op spinal cord stimulator placement S/p device explantation on 01/16/25 with Neurosurgery. ID consulted plan for 28 days of vancomycin , OPAT consulted - TTE unremarkable - Repeat cultures 01/18, remove PICC line 01/18 that was placed at outside facility, once cultures stay negative from 01/18 for at least [address] a new PICC line Hypomagnesemia - Replete PRN Elevated liver enzymes, mild -RUQ US shows Mildly coarsened liver echotexture suggests parenchymal disease -daily LFTs -hepatitis screen negative HTN Resumed carvedilol Continue Procardia (started inpatient) )Non insulin dependent Type 2 DM Plan: -Hypoglycemic protocol in place -A1c 7.8% #) Mixed hyperlipidemia Plan: -Continue home Statin MADELEINE - H/H = 9.4 (L)/28.1 (L) Plan: -Continue home Ferrous Sulfate - Continue serial lab assessment. - May require iron, folate, B12 supplementation as appropriate. - Transfuse as appropriate to target hgb > 7 GERD -Continue home PPI MDD -Continue home Trintellix and Elavil Seizure disorder? Plan: -Continue home Klonopin BID PRN -Seizure precautions #) Obesity Body mass index is 37.8 kg/m??. -Complicates all aspects of care ' Medically Ready for Discharge:Anticipated in 5+ Days * Consults - Giancarlo Pradhan - 01/18/2025 2:30 PM EST Pastoral Care Note Roll Mechanic made follow up visit with Rosa and introductory visit with her family. They are aware ofPastoral Services and availability. Referral From: Roll Mechanic Initiated Pastoral Care Provided For: Patient, Spouse, Child(odalis) Patient Profile: Consult Reasons: Initial visit Spiritual Assessment: Support Systems/ Spiritual Resources: Prayer Spiritual Needs: Emotional support Spiritual Issues: Change/ transition Interventions: Interventions Provided: Introduced Patient/Family to Roll Mechanic Services Pastoral Care Outcomes: Patient Outcomes: Is knowledgeable about Metal Punch Press Operator Services Giancarlo Pradhan * Procedures - Ethel Steward RN - 01/18/2025 12:54 PM ESTAssociated Order(s): Insert peripheral IV Insert peripheral IV Performed by: Ethel Steward RN Authorized by: Cleve Deleon MD Hand hygiene: Hand hygiene performed prior to insertion Inserted using aseptic techniques: Yes Preparation: Skin prepped with chg Orientation: Right Location: Forearm Catheter placed: Peripheral IV Catheter size: 20g/2.00in Line Technique: Ultrasound Guidance Number of attempts: 1 IV flushes: Without difficulty and positive blood return noted and IV luer locked Patient tolerance: Patient tolerated the procedure well and there were no complications Patient comfort measures used: Distraction and position of comfort IV site covered with: Transparent semipermeable dressing Education provided to: Patient Comments: Pertinent imaging sent via PACS * Progress Notes - Renae Resendiz R, COMPLIANCE REVIEW SPECIALIST, DNP - 01/18/2025 12:53 PM EST Images from the original note were not included. GENERAL INFECTIOUS DISEASE PROGRESS NOTE Primary Attending: Cleve Deleon MD Subjective: No acute events. Tolerating antibiotics. PICC in place - left upper arm. Denies minimal pain, no abdominal pain or discomfort. No diarrhea or constipation. Objective: Visit Vitals BP 138/72 (BP Location: Right arm, Patient Position: Lying) Pulse 68 Temp 36.6 ??C (97.9 ??F) (Oral) Resp 15 Ht 1.6 m (5' 3 ) Wt 96.6 kg (213 lb) SpO2 90% BMI 37.73 kg/m?? Smoking Status Never BSA 2.07 m?? Physical Exam Vitals reviewed. Constitutional: Appearance: She is obese. HENT: Nose: Nose normal. Mouth/Throat: Mouth: Mucous membranes are moist. Cardiovascular: Rate and Rhythm: Normal rate and regular rhythm. Pulses: Normal pulses. Heart sounds: Normal heart sounds. Pulmonary: Effort: Pulmonary effort is normal. Abdominal: Palpations: Abdomen is soft. Musculoskeletal: General: Normal range of motion. Cervical back: Normal range of motion. Skin: Capillary Refill: Capillary refill takes less than 2 seconds. Neurological: Mental Status: She is alert and oriented to person, place, and time. Psychiatric: Mood and Affect: Mood normal. Labs: CBC WBC 10.71 (H) Hb 9.0 (L) Plt 400 (H) Hct 27.4 (L) ANC 8.43 (H) BMP Na 142 Cl 104 BUN 16 Glu 151 (H) K 4.0 Co2 25 Cr 0.90 Mg 1.7 (L), Phos 1.9 (L) LFT AST 70 (H) AlkPhos 263 (H) T Prot 6.1 (L) ALK 53 (H) Bili 0.3 Alb ?? D.Bili ?? Results from last 7 days Lab Units 01/16/25 0036 CRP mg/L 108.5* Results from last 7 days Lab Units 01/16/25 0036 SED RATE mm/hr 96* Imaging/Studies: Echo, Adult Transthoracic Complete Result Date: 01/17/2025 Narrative: Left Ventricle: The left ventricle is normal size. The left ventricular systolic function is normal. The LVEF is visually estimated at 60 - 70%. The diastolic function is normal. The left ventricular filling pressure is elevated. Right Ventricle: The right ventricle is grossly normal in size. The right ventricular systolic function is normal. The estimated right ventricular systolic pressure is 72 mmHg. Right ventricular systolic pressure is severely elevated (>70mmHg). All cardiac valves were reasonably well interrogated with 2D imaging and/or Doppler assessment and no significant valve regurgitation or stenosis is seen. There is no recent study available for direct [id number] comparison. CT Lumbar Spine w IV Contrast Result Date: 01/17/2025 Narrative: CLINICAL INDICATION: Lumbar radiculopathy, infection suspected, no prior imaging TECHNIQUE: Imaging of the entire lumbar spine was performed using spiral technique, with the administrationof intravenous contrast. Images were reconstructed in the axial plane at multiple slice thicknesseson bone and soft tissue algorithm. Reformatted images in the coronal and sagittal planes were generated. 100 ml of Omnipaque 300 were administered. TOTAL DLP (Dose-Length Product): 816.50 mGy.cm mGy*cm. Please note: The reported value represents the total of one or more individual components duringthe CT acquisition on this date and at this time, and as such, the same value may appear in more than one CT report depending on the interpreting/reporting physicians. COMPARISON: Lumbar spine CT 01/13/2025.. FINDINGS: Diagnostic Quality: Adequate Alignment: Grade I anterolisthesis of L5 on S1. Vertebral bodies and intervertebral discs: Chronic L1 fracture status post vertebral augmentation. Thereis retropulsion of the posterior fracture fragment of the spinal canal resulting in mild spinal canal stenosis, similar to prior CT. Interval removal of spinal cord stimulator with small focus of airin the spinal canal. Vertebral body heights are otherwise maintained. Multilevel disc height loss with vacuum disc phenomenon at L2-L3 and L4-L5. No acute fracture is present. Anatomic variants: None. 5 Lumbarized vertebral bodies are present. Degenerative changes: Multilevel disc bulge most pronounced at L3-L4 and L4-L5. Multilevel facet arthropathy. No significant spinal canal stenosis. Severe right and moderate left neural foraminal stenosis at L4-L5. Moderate bilateral neural foraminal stenosis at L5-S1. Mild bilateral neural foraminal stenosis at L2-L3 and L3-L4. Prevertebral and Paraspinal Soft Tissues: Small amount of fluid and air at the site of the removed generator, presumably postsurgical. Right renal cyst. Impression: Interval removal of spinal cord stimulator. Fluid and air at the site of removed hardware, presumably postsurgical. CRITICAL RESULT: No COMMUNICATION: Per this written report. Drafted by Ar Wick MD on 01/17/2025 1:05 PM Final report signed by Ar Wick MD on 01/17/2025 1:25 PM Microbiology: Culture results from [facility] Susceptibility data from last 90 days. Collected Specimen Info Organism 01/16/25 Foreign Body from Back, Lower Staphylococcus aureus (1) Staphylococcus aureus (2) 01/16/25 Abscess from Back, Lower Staphylococcus aureus (1) Staphylococcus aureus (2) Results Procedure Component Value Units Date/Time Blood Culture (Aerobic/Anaerobet Set) [[id number]] Collected: 01/18/25 1323 Order Status: Sent Specimen: Blood, Venous Fungal Culture, Routine [[id number]] Collected: 01/16/25 1605 Order Status: Completed Specimen: Abscess from Back, Lower Updated: 01/18/25 1041 Culture No Fungal Growth <1 Week Fungal Culture, Tissue and DEANDRE [[id number]] Collected: 01/16/25 1614 Order Status: Completed Specimen: Foreign Body from Back, Lower Updated: 01/18/25 1022 Culture Reading Mycological 4 Weeks No Fungal Growth <1 Week DEANDRE Source not suitable for smear Blood Culture (Aerobic/Anaerobet Set) [[id number]] Collected: 01/16/25 0128 Order Status: Completed Specimen: Blood from Hand, Right Updated: 01/18/25 0403 Culture No growth at day 2 Routine Culture and Gram Stain [[id number]] (Abnormal) Collected: 01/16/25 1614 Order Status: Completed Specimen: Foreign Body from Back, Lower Updated: 01/17/25 1327 Culture Heavy Growth 4+ Biotype 1 Staphylococcus aureus 2+ Biotype 2 Staphylococcus aureus Abscess Culture and Gram Stain [[id number]] (Abnormal) Collected: 01/16/25 1605 Order Status: Completed Specimen: Abscess from Back, Lower Updated: 01/17/25 1321 Culture Light Growth 1+ Biotype 1 Staphylococcus aureus Comment: The organism value for this result has been updated. These results have been appended to the previously preliminary verified report. 1+ Biotype 2 Staphylococcus aureus Comment: The organism value for this result has been updated. These results have been appended to the previously preliminary verified report. Gram Stain Result Rare Gram positive cocci in pairs and chains Numerous Polymorphonuclear leukocytes AFB Culture, Non Respiratory Source and Acid Fast Stain [[id number]] Collected: 01/16/25 1614 Order Status: Completed Specimen: Foreign Body from Back, Lower Updated: 01/17/25 0557 Acid Fast Stain Source not suitable for smear Anaerobic Culture [[id number]] Collected: 01/16/251604 Order Status: Sent Specimen: Abscess from Back, Lower Updated: 01/16/25 171 AFB Culture, Non Respiratory Source and Acid Fast Stain [[id number]] Collected: 01/16/251604 Order Status: Canceled Specimen: Abscess from Back, Lower Updated: 01/16/251709 Fungal Culture, Sterile Body Fluid (NOT CSF) and DEANDRE [[id number]] Collected: 01/16/251604 Order Status: Canceled Specimen: Abscess from Back, Lower Updated: 01/16/251709 Anaerobic Culture [[id number]] Collected: 01/16/251613 Order Status: Sent Specimen: Foreign Body from Back, Lower Updated: 01/16/250 Antimicrobials: -- Vancomycin IV 1500mg Q24H 01/16 - present -- Cefepime IV 2g Q12H 01/16 - 01/17 -- Metronidazole PO 500mg Q8H 01/16 - 01/17 Assessment: Patient Summary: Rosa Perdomo is a 74 y.o. female with history of DM2, hypertension, depression and anxiety, GERD was transferred to [facility] from outside facility for concern of MRSA bacteremia on 01/15. About 3 weeks ago she underwent spinal cord stimulator placement for spinal arthritis pain management. Blood cultures obtained at the facility (01/14) showed MRSA and she was transferred to [facility] for further management. Blood cultures collected at [facility] on 01/16 show NGTD. VINCENT took her to the OR 01/16 for explantation of her stimulator device with purulence noted. NSGY started Ms. Perdomo on cefepime and metronidazole post- operatively, however these were discontinued 01/17. PICC was placed 01/15 at OSH - unfortunately, it appears that this line was placed before blood cultures were cleared at [facility]. If 01/16 cultures continue to remain negative, however PICC line wasn't removed until this afternoon due patient preference and lack of alternative access. Repeat blood cultures after PICC is removed to ensure she has cleared the infection. 48 hour line holiday is needed and then new PICC can be placed for 28d therapy with Daptomycin. IV team placed USGPIV so PICC can be removed. Surgical team didn't note any bone involvement in their operative note. No indication of SENIOR JAVASCRIPT ENGINEER involvement. OPAT orders are in - will need to assess ability of family to assist with abx administration. Problem List: MRSA Bacteremia - 01/14/2025, cleared (thus far) on repeat cultures 01/16 Infected spinal stimulator s/p extraction 01/17/25 PICC (POA) placed in setting of bacteremia DM, HTN, Depression, Anxiety Recommendations: Remove PICC once alternative access has been established. IVT placed USGPIV 01/18, primary RN to remove PICC and draw blood cultures. Repeat BCX. Cultures drawn 01/16 continue to be clear. Line holiday 48h - new PICC can be placed if cultures remain negative. GENERAL ID will continue to follow. Renae Resendiz APRN, DNP Infectious Diseases secure chat preferred Cosigned by Asher Sinha MD at 01/18/2025 4:36 PM EST Associated attestation - Asher Sinha MD - 01/18/2025 4:36 PM EST I attest to being involved in providing substantive part of the medical decision making in patient care. Impressions: MRSA Bacteremia - 01/14/2025, cleared (thus far) on repeat cultures 01/16, 01/18 drawn and pending Infected spinal stimulator s/p extraction 01/17/25, cultures with 2 biotypes S.aureus PICC (POA) placed in setting of bacteremia, now s/p removal DM, HTN, Depression, Anxiety Recommendations: Continue vancomycin while inpatient - depending on accepting facility and monitoring abilities, might favor switching to daptomycin upon discharge (if we switch to dapto- we'd do 10mg/kg IV q24h) - [facility] [address] would treat for 4 weeks from 01/16/2025 (through 02/12/2025) In case we need to do this - would recommend getting CK with next lab draw so we have a baseline Discussed this plan with our OPAT team today Wrote to NSGy attending who was in the OR 01/16 to ensure just pocket involvement - though she does not clinically appear to have epidural involvement) Will f/up all cultures to completion Discussed PICC removal and replacment timing with primary team, vascular access- will remove today,cultures drawn, plan to replace in 48h. Appreciate everyone's help/support. ID will continue to follow; OPAT modified MDM attestation - Today, I am treating the patient for MRSA bacteremia which can cause sepsis in the short-term future in the absence of appropriate treatment, as described in the note. - Independently interpreted test BCx which shows MRSA. - Discussed management of MRSA BSI with primary team and consulting services. - Discussed test interpretation of BCx with primary team - Reviewed notes by primary team and consulting services to determine appropriate plan of care as in the note. - Estimated Creatinine Clearance: 62.8 mL/min (by C-G formula based on SCr of 0.87 mg/dL).reviewed;antibiotics recommended above are dosed accordingly. - The patient is being intensively monitored for antimicrobial toxicity from IV ABX with the following tests: CBC, CMP. The following complex inpatient infectious disease services were performed today: Complex antimicrobial therapy counseling and treatment * Progress Notes - Dianelys Mendoza - 01/18/2025 11:05 AM EST Occupational Therapy Evaluation Patient Name: Rosa Perdomo Today's Date: 01/18/2025 OT Discharge Recommendations: Acute rehab Equipment Recommended: Defer to facility History Rosa Perdomo is 74 y.o. female admitted 01/15/2025 for work-up of Postoperative sepsis ([facility]). Problem List Active Hospital Problems Diagnosis Date Noted Date Diagnosed Postoperative sepsis (CMS/HCC) 01/16/2025 Mixed hyperlipidemia 01/16/2025 Cellulitis of back except buttock 01/16/2025 Major depressive disorder with single episode, in remission (CMS/HCC) 01/16/2025 MRSA bacteremia 01/16/2025 MADELEINE (iron deficiency anemia) 01/16/2025 Gastroesophageal reflux disease without esophagitis 01/16/2025 Transaminitis 01/16/2025 Hypertension 02/29/2024 Diabetes mellitus 02/29/2024 Procedures 01/16/2025 Procedures: EXPLORATION, WOUND, POSSIBLE SCS REMOVAL/REVISION, ALL OTHER INDICATED PROCEDURES Past Medical History Patient has a past medical history of Abnormal EKG, Anemia, Breast cyst, CKD (chronic kidney disease) stage 3, GFR 30-59 ml/min ([facility]), Depression, Diabetes mellitus, Dyspnea, HLD (hyperlipidemia), HTN (hypertension), Mitral valve prolapse, Paroxysmal A-fib, RSV (respiratory syncytial virus infection), Sciatica, SVT (supraventricular tachycardia) ([facility]), and Trigger finger. Past Surgical History Patient has a past surgical history that includes Colonoscopy; Esophagogastroduodenoscopy; Wrist surgery; Hernia repair; and Cholecystectomy. Precautions Medical Precautions: Fall precautions, Seizure precautions Subjective Pt and RN agreeable to initial OT evaluation. Pt reports she has not been out of bed in days. Participants in Care Family/Caregiver Present: No Glass Lathe Operator: Not Applicable Presentation Oxygen Therapy: Supplemental oxygen O2 Delivery Method: Nasal cannula O2 Flow Rate (L/min): 2 L/min Lines and Tubes: PICC, Intravenous access, Telemetry Pre-Session: Supine, Head of bed elevated, Lines intact, Bed alarm Pre-Session Comments: RN consented to treatment Post-Session: Sitting in chair, Chair alarm, Lines intact, RN notified, Call light in reach Post-Session Comments: All needs met Home Living/Set-up Lives With: Spouse Home Type: House Home Adaptive Equipment: Rolling walker, Rollator, Cane, shower chair (Does not use but has DME from a R TKR in December, reports she did not need to use the RW for very long) Home Layout: Two level, Able to live on one level with bedroom/bathroom (ramped entry) Bathroom: Tub/Shower: Walk-in shower, Grab bars Bathroom: Toilet: Standard Home Living Comments: Pt reports recent R TKR on 12/14/24. Has mostly been at home since then, when going to the grocery store relies on shopping cart for support. Prior Level of Function Receives Help From: Spouse Level of Mobility: Ambulatory- community Mobility [place]: Independent gait without device History of Falls: No ADL Performance: Needs assistance Bathing: Independent Upper Body Dressing: Independent Lower Body Dressing: Needs assist Grooming: Independent Toileting: Independent Eating: Independent Home Management Skills: Needs assist Patient/Family Goals Statement Pt desires to return home when able to. Objective Pain Pt reports no pain at this time. Delirium Screening RASS: Alert and calm Confusion Assessment Method-ICU (CAM-ICU/PCAM-ICU) Feature 3: Altered Level of Consciousness: Negative Cognition Overall Cognitive Status: Within Functional Limits Arousal/Alertness: Delayed responses to stimuli Mood/Behavior: Alert Orientation Level: Oriented X4 Single Step Commands: Consistently, With increased time Multi-Step Commands: Consistently, With increased time, With repetition Method of Communication: Verbal Vision - Basic Assessment Baseline Vision: Glasses distance, Glasses reading Visual History: Cataracts (reports upcoming surgery scheduled for cataract removal) Tracking: Intact Right Upper Extremity Examination RUE ROM Assessment RUE Assessment: Within Functional Limits Manual Muscle Testing - RUE: Within functional limits (grossly 4-/5) Sensation Light Touch: Right Upper Extremity: Intact Left Upper Extremity Examination LUE ROM Assessment LUE Assessment: Within Functional Limits Manual Muscle Testing - LUE: Within functional limits (grossly 4-/5) Sensation Light Touch: Left Upper Extremity: Intact Right Lower Extremity Examination RLE ROM Assessment RLE Assessment: Within Functional Limits Manual Muscle Testing - RLE: Within functional limits (Grossly 4/5) Sensation Light Touch: Right Lower Extremity: Intact Left Lower Extremity Examination LLE ROM Assessment LLE Assessment: Within Functional Limits Manual Muscle Testing: Within functional limits (Grossly 4/5) Sensation Light Touch: Left Lower Extremity: Intact Bed Mobility Bed Mobility Exam: Scooting/Bridging Level of Burnett: Dependent (scooting hips forward to edge of bed) Physical/Nonphysical Assist: Verbal Cues, Nonverbal cues (demo/gestures), Maximal cues, Additional assist utilized for safety Bed Mobility Exam: Supine to Sit Level of Burnett: Moderate assist (50% patient's effort) Physical/Nonphysical Assist: HOB elevated, Moderate cues, Verbal Cues Assistive Device: Bed rails Transfers Transfer Exam: Sit to stand Level of Burnett: Moderate assist (50% patient's effort) (x2 reps from edge of bed - 1st rep EMERGENCY MEDICAL DISPATCHER, 2nd rep to RW) Physical/Nonphysical Assist: Verbal Cues, Maximal cues, Additional assist utilized for safety Assistive Device: Walker, rolling Transfer Exam: Stand to Sit Level of Burnett: Moderate assist (50% patient's effort) (poorly controlled descent) Physical/Nonphysical Assist: Verbal Cues, Maximal cues, Additional assist utilized for safety Assistive Device: Walker, rolling Transfer Exam: Bed to Chair/Chair to Bed Level of Burnett: Moderate assist (50% patient's effort) (with significantly extra time) Physical/Nonphysical Assist: Verbal Cues, Maximal cues, Additional assist utilized for safety Type of Transfer: Sidesteps Assistive Device: Walker, rolling Balance Postural Appearance Posture: Forward head, Rounded shoulders, Stooped posture Static Sitting Balance Static Sitting-Balance Support: Right upper extremity support, Left upper extremity support, Feet unsupported Static Sitting-Level of Assistance: Minimum assistance Dynamic Sitting Balance Dynamic Sitting-Balance Support: Right upper extremity support, Left upper extremity support, Feet unsupported Dynamic Sitting-Balance: Trunk control activities Level of Assistance: Moderate assistance Static Standing Balance Static Standing-Balance Support: Right upper extremity support, Left upper extremity support Static Standing-Level of Assistance: Moderate assistance Dynamic Standing Balance Dynamic Standing-Balance Support: Right upper extremity support, Left upper extremity support Dynamic Standing-Balance: Lateral weight shifts, Anterior/Posterior weight shifts Dynamic Standing Level of Assistance: Moderate assistance Self-Care Interventions Self Care/Home Management (ADLs) Time Entry: 15 Self-Care Interventions: OT provided extra time and mod VC's/gestural cues for patient to initiate and complete ADL tasks. Pt positioned upright at edge of bed in prep for seated level ADL tasks, Antonia needed for static sitting balance. Pt able to stand from edge of bed with mod A x2 persons, then performed bed to chair transfer via RW and mod A x2 persons in prep for toilet transfer. Pt moves very slowly and requires cues for weight shifting and sequencing transfer at RW level, max cues to reach back for armrest of chair to sit with decreased carryover, pt with poorly controlled descent to sitting. Feeding Feeding Level of Assistance: Setup Feeding Where Assessed: Chair Level Feeding Interventions: Anticipated, to perform self-feeding tasks. Pt is on regular, consistent CH[place]iet. Grooming Grooming Level of Assistance: Minimum assistance, Minimal verbal cues Grooming Where Assessed: Chair level Grooming Interventions: To brush hair, wash face, complete oral care at seated level with min A needed to brush posterior aspect of hair UE Dressing UE Dressing Level of Assistance: Minimum assistance UE Dressing Where Assessed: Chair level UE Dressing Interventions: Anticipated, donning pullover shirt Lower Extremity Dressing Sock Level of Assistance: Dependent LE Dressing Where Assessed: Edge of bed LE Dressing Interventions: Donning bilateral non-skid socks, pt reports difficulty with task since TKR last month Toileting Toileting Level of Assistance: Dependent Where Assessed: Other (Comment) (incontinent on chux at EOB) Toileting Interventions: Pt noted to have incontinent void on chux, dep A for clothing mgmt and hygiene at RW level Self-Care CARE Tool Performance SELF-CARE ITEMS CARE SCORE Eating 5 Oral Hygiene 5 Toileting Hygiene 1 Shower/Bathe Self 2 Upper Body Dressing 3 Lower Body Dressing 1 Putting On / Taking Off Footwear 1 CARE Tool Performance Score Viera Score Assist Level Description 6 Independent Patient completes the activity by him/herself with no assistance from a helper. 5 Set-up or Clean-up Assistance [place] sets up or cleans up; patient completes activity. [place] assists only prior to or following the activity. 4 Supervision or touching assistance [place] provides verbal cues and/or touching/steadying and/or contact guard assistance as patient completes activity. Assistance may be provided throughout the activity or intermittently. 3 Partial/Moderate Assistance [place] does LESS THAN HALF the effort. [place] lifts, holds or supports trunk or limbs, but provides less than half the effort. 2 Substantial/Maximal Assistance [place] does MORE THAN HALF the effort. [place] lifts or holds trunkor limbs and provides more than half the effort. 1 Dependent [place] does ALL of the effort. Patient does none of the effort to complete the activity. Or, the assistance of 2 or more helpers is required for the patient to complete the activity. Activity Not Attempted Values 7 Patient refused. 9 Not applicable - Not attempted and the patient did not perform this activity prior to the currentillness, exacerbation, or injury. 10 Not attempted due to environmental limitations (e.g., lack of equipment, weather constraints) 88 Not attempted due to medical condition or safety concerns Standardized Assessments Micheal Index Feeding: Needs help cutting, spreading butter, etc., or requires modified diet Bathing: Dependent Grooming: Independent face/hair/teeth/shaving (implements provided) Dressing: Needs help but can do about half unaided Bowels: Occasional accident Bladder: Incontinent, or catheterized and unable to manage alone Toilet Use: Dependent Transfers (Bed to Chair and Back): Major help (one or two people, physical), can help Mobility (on Level Surfaces): Immobile or < 50 yards Stairs: Unable Total Score: 25 Assessment Pt is limited by fatigue, impaired standing balance, and decreased functional endurance which impacts overall ADL task performance. Pt is most appropriate for Acute rehab upon discharge as she has experienced a significant decline from PLOF. Pt is a community ambulator at baseline, independent withall ADL/mobility tasks without assistive device. At this time, pt is requiring mod A x2 persons to stand and transfer to recliner using rolling walker. Unable to walk more than ~3 ft to chair this date. Pt is dep A for toileting and lower body ADLs and is unable to manage self-care needs if she were to return home. Pt will continue to benefit from skilled OT services at this time to address decreased safety and independence with ADLs, functional transfers, and functional mobility. OT Findings: Impaired ADL performance, Impaired IADL performance, Impaired judgment during ADL, Decreased endurance/ventilation/gas exchange, Impaired executive function, Impaired functional mobility, Decreased gross motor control/coordination, Impaired postural/trunk control, Impaired balance Evaluation/Treatment Tolerance: Patient limited by fatigue Rehab Potential: Good, to achieve stated therapy goals Barriers to Discharge: Comorbidities Eval Complexity Occupational Profile: Expanded review of medical/therapy records and additional review of physical,cognitive, or psychosocial history Performance Deficits: Activities of daily living (ADLs), Instrumental activities of daily living (IADLs), Rest and sleep, Body functions, Body structures, Motor skills, Process skills, Habits, Routines, Roles, Personal, Physical Clinical Decision Making: Moderate Overall Eval complexity: Moderate OT Recommendations Discharge Destination: Acute rehab Discharge Equipment: Defer to facility Plan Planned OT Interventions ADL retraining, IADL retraining, Balance training, Bed mobility Training, Joint mobilization, Motorcoordination training, ROM, Strengthening, Transfer training, Functional mobility, Cognitive retraining, Caregiver education OT Frequency 2 - 5 times per week OT Duration 2 weeks Goals OT GOAL DETAILS Time Frame OT Goal 1: Pt will verbalize or demonstrate understanding of UE HEP and discharge recommendations. 2 weeks OT Goal 2: Pt will perform functional transfers (including toilet transfer) with SBA using RW. 2 weeks OT Goal 3: Pt will complete all toileting tasks at RW level with set up / SBA. 2 weeks OT Goal 4: Pt will perform LB dressing tasks with set up / SBA using AE PRN. 2 weeks Written by Dianelys Mendoza on 01/18/2025 at 1:59 PM. * Progress Notes - Micheal Melton - 01/18/2025 11:00 AM EST Physical Therapy Evaluation Patient Name: Rosa Perdomo Today's Date: 01/18/2025 PT Discharge Recommendations: Acute rehab Equipment Recommended: Defer to facility History Rosa Perdomo is 74 y.o. female admitted 01/15/2025 for work-up of Postoperative sepsis ([facility]). Problem List Active Hospital Problems Diagnosis Date Noted Date Diagnosed Postoperative sepsis (CMS/HCC) 01/16/2025 Mixed hyperlipidemia 01/16/2025 Cellulitis of back except buttock 01/16/2025 Major depressive disorder with single episode, in remission (CMS/HCC) 01/16/2025 MRSA bacteremia 01/16/2025 MADELEINE (iron deficiency anemia) 01/16/2025 Gastroesophageal reflux disease without esophagitis 01/16/2025 Transaminitis 01/16/2025 Hypertension 02/29/2024 Diabetes mellitus 02/29/2024 Procedures 01/16/2025 Procedures: EXPLORATION, WOUND, POSSIBLE SCS REMOVAL/REVISION, ALL OTHER INDICATED PROCEDURES Past Medical History Patient has a past medical history of Abnormal EKG, Anemia, Breast cyst, CKD (chronic kidney disease) stage 3, GFR 30-59 ml/min (CMS/HCC), Depression, Diabetes mellitus, Dyspnea, HLD (hyperlipidemia), HTN (hypertension), Mitral valve prolapse, Paroxysmal A-fib, RSV (respiratory syncytial virus infection), Sciatica, SVT (supraventricular tachycardia) (CMS/HCC), and Trigger finger. Past Surgical History Patient has a past surgical history that includes Colonoscopy; Esophagogastroduodenoscopy; Wrist surgery; Hernia repair; and Cholecystectomy. Precautions Medical Precautions: Fall precautions, Seizure precautions Subjective Pt was agreeable to therapy today. Pt was glad to get to the chair today to brush her hair and her teeth. Participants in Care Family/Caregiver Present: No Glass Lathe Operator: Not Applicable Presentation Oxygen Therapy: Supplemental oxygen O2 Delivery Method: Nasal cannula O2 Flow Rate (L/min): 2 L/min Lines and Tubes: PICC, Intravenous access, Telemetry Pre-Session: Supine, Head of bed elevated, Lines intact, Bed alarm Pre-Session Comments: RN consented to treatment Post-Session: Sitting in chair, Chair alarm, Lines intact, RN notified, Call light in reach Post-Session Comments: All needs met Home Living/Set-up Lives With: Spouse Home Type: House Home Adaptive Equipment: Rolling walker, Rollator, Cane, shower chair (Does not use but has DME from a R TKR in December, reports she did not need to use the RW for very long) Home Layout: Two level, Able to live on one level with bedroom/bathroom (ramped entry) Bathroom: Tub/Shower: Walk-in shower, Grab bars Bathroom: Toilet: Standard Home Living Comments: Pt reports recent R TKR on 12/14/24. Has mostly been at home since then, when going to the grocery store relies on shopping cart for support. Prior Level of Function Receives Help From: Spouse Level of Mobility: Ambulatory- community Mobility Burnett: Independent gait without device History of Falls: No ADL Performance: Needs assistance Bathing: Independent Upper Body Dressing: Independent Lower Body Dressing: Needs assist Grooming: Independent Toileting: Independent Eating: Independent Home Management Skills: Needs assist Patient/Family Goals Return home. Objective Pain No pain reported. Delirium Screening RASS: Alert and calm Confusion Assessment Method-ICU (CAM-ICU/PCAM-ICU) Feature 3: Altered Level of Consciousness: Negative Cognition Overall Cognitive Status: Within Functional Limits Arousal/Alertness: Delayed responses to stimuli Mood/Behavior: Alert Orientation Level: Oriented X4 Single Step Commands: Consistently, With increased time Multi-Step Commands: Consistently, With increased time, With repetition Method of Communication: Verbal Vision - Basic Assessment Baseline Vision: Glasses distance, Glasses reading Visual History: Cataracts (reports upcoming surgery scheduled for cataract removal) Tracking: Intact Right Upper Extremity Examination RUE Assessment: Within Functional Limits Manual Muscle Testing - RUE: Within functional limits (grossly 4-/5) Sensation Light Touch: Right Upper Extremity: Intact Left Upper Extremity Examination LUE ROM Assessment LUE Assessment: Within Functional Limits Manual Muscle Testing - LUE Manual Muscle Testing - LUE: Within functional limits (grossly 4-/5) Sensation Light Touch: Left Upper Extremity: Intact Right Lower Extremity Examination RLE ROM Assessment RLE Assessment: Within Functional Limits Manual Muscle Testing - RLE Manual Muscle Testing - RLE: Within functional limits (Grossly 4/5) Sensation Light Touch: Right Lower Extremity: Intact Left Lower Extremity Examination LLE Assessment: Within Functional Limits Manual Muscle Testing: Within functional limits (Grossly 4/5) Sensation Light Touch: Left Lower Extremity: Intact Bed Mobility Bed Mobility Exam: Scooting/Bridging Level of Burnett: Dependent (scooting hips forward to edge of bed) Physical/Nonphysical Assist: Verbal Cues, Nonverbal cues (demo/gestures), Maximal cues, Additional assist utilized for safety Bed Mobility Exam: Supine to Sit Level of Burnett: Moderate assist (50% patient's effort) Physical/Nonphysical Assist: HOB elevated, Moderate cues, Verbal Cues Transfers Transfer Exam: Sit to stand Level of Burnett: Moderate assist (50% patient's effort) (x2 reps from edge of bed - 1st rep EMERGENCY MEDICAL DISPATCHER, 2nd rep to RW) Physical/Nonphysical Assist: Verbal Cues, Maximal cues, Additional assist utilized for safety Assistive Device: Walker, rolling Transfer Exam: Stand to Sit Level of Burnett: Moderate assist (50% patient's effort) (poorly controlled descent) Physical/Nonphysical Assist: Verbal Cues, Maximal cues, Additional assist utilized for safety Assistive Device: Walker, rolling Transfer Exam: Bed to Chair/Chair to Bed Level of Burnett: Moderate assist (50% patient's effort) (with significantly extra time) Physical/Nonphysical Assist: Verbal Cues, Maximal cues, Additional assist utilized for safety Type of Transfer: Sidesteps Assistive Device: Walker, rolling Balance Postural Appearance Posture: Forward head, Rounded shoulders, Stooped posture Static Sitting Balance Static Sitting-Balance Support: Right upper extremity support, Left upper extremity support, Feet unsupported Static Sitting-Level of Assistance: Minimum assistance Dynamic Sitting Balance Dynamic Sitting-Balance Support: Right upper extremity support, Left upper extremity support, Feet unsupported Dynamic Sitting-Balance: Trunk control activities Level of Assistance: Moderate assistance Static Standing Balance Static Standing-Balance Support: Right upper extremity support, Left upper extremity support Static Standing-Level of Assistance: Moderate assistance Dynamic Standing Balance Dynamic Standing-Balance Support: Right upper extremity support, Left upper extremity support Dynamic Standing-Balance: Lateral weight shifts, Anterior/Posterior weight shifts Dynamic Standing Level of Assistance: Moderate assistance Therapeutic Activity (20 minutes) Pt demonstrated functional mobility with sit to stand transfers and performing a bed to chair transfer during today's therapy session. Pt required maximal verbal cueing to walk her legs over to the edge of the bed and to reach for the bed rail to assist getting to upright. Pt was also given maximalverbal cueing to scoot forward to get her feet on the ground, but ultimately demonstrated a level of dependency to achieve. Pt performed 2 trials of standing, deferring the RW for the first trial andneeded to sit 10 seconds after rising. PT provided verbal cues for appropriate hand placement on the RW prior to second standing attempt and showed improvement in upright position and demonstrated the ability to march in place and take forward steps. Pt was given maximal verbal cues to side step toward the chair. PT provided verbal cues to reach back for the chair prior to sitting. Pt was positioned for comfort and pressure relief. PT provided education on use of RW upon discharge to reduce risks of falls as well as provided HEP to work on keeping her strength throughout the duration of her ho spitalization. See therapeutic exercise section below. Therapeutic Exercise (8 minutes) Access Code: [email or web address] URL: [email or web address] Date: 01/18/2025 Prepared by: Pk Exercises - Seated Ankle Pumps - 1 x daily - 7 x weekly - 1 sets - 10 reps - Seated Long Arc Quad - 1 x daily - 7 x weekly - 1 sets - 10 reps - Seated March - 1 x daily - 7 x weekly - 1 sets - 10 reps - Seated Hip Abduction - 1 x daily - 7 x weekly - 1 sets - 10 reps PT provide verbal education and demonstration on above exercises. Pt demonstrated verbal understanding. Standardized Assessments [facility] 6-Clicks Mobility Assessment Difficulty patient has turning over in bed (including adjusting bedclothes, sheets, and blankets)?:A lot Difficulty patient has sitting down on and standing up from a chair with arms (wheelchair, bedside commode, etc.)?: A lot Difficulty patient has moving from lying on back to sitting on the side of the bed?: A lot How much help does the patient need moving to and from a bed to a chair (including a wheelchair)?: A lot How much help does the patient need to walk in hospital room?: A lot How much help does the patient need climbing 3-5 steps with a railing?: A lot [facility] 6-Clicks Mobility Assessment Total : 12 No data recorded Assessment Pt demonstrated a decreased functional mobility when compared to her prior level of function. Pt demonstrated deficits in gait speed, gait performance, and impaired balance when performing transfers.PT believes Rosa would benefit from skilled physical therapy services to address these deficits. PT also believes pt would benefit from a stay at an acute rehab facility to further address her deficits and to maximize her return to prior level of function. At this time, Rosa would not be safe to return home upon discharge. Recommend acute inpatient rehab to maximize return to prior level of function. Anticipate pt will be able to tolerate 3 hours of skilled therapy/day as their medical status progresses and will benefit from multidisciplinary rehabilitation services as well as daily physician oversight. Impairments: Decreased endurance, ventilation, and/or gas exchange, Impaired gait dynamics/performance, Impaired locomotion, Impaired motor planning, Impaired motor cordination/control, Impaired postural/trunk control, Impaired balance, Impaired functional mobility/transfers Activity Limitations: Inability to sit independently, Inability to ambulate independently, Inability to ambulate community distances, Inability to ambulate household distances, Inability to transfer independently Participation Restrictions: Self-care, Home management, Community leisure Activity Tolerance: Tolerates 30 min activity with multiple rests Evaluation/Treatment Tolerance: Patient limited by fatigue Diagnosis: Decreased functional mobility Rehab Potential: Good, to achieve stated therapy goals Barriers to Discharge: Comorbidities Eval Complexity History Profile: 3 or more personal factors and/or comorbidities Clinical Presentation: Evolving clinical presentation with changing characteristics Clinical Decision Making: Moderate complexity PT Recommendations Discharge Destination: Acute rehab Discharge Equipment: Defer to facility Plan Planned PT Interventions Balance training, Bed mobility training, Gait training, Transfer training, Postural re-education, ROM, Strengthening, Stretching, Functional Mobility PT Frequency 2 - 5 times per week PT Duration 2 weeks Goals PT GOAL DETAILS Time Frame PT Goal 1: Pt will demonstrate sit<>stand transfers with CGA and use of LRAD. 2 weeks PT Goal 2: Pt will demonstrate bed<>chair transfers with Antonia and use of LRAD. 2 weeks PT Goal 3: Pt will demonstrate ambulating 15 ft with nAtonia and use of LRAD. 2 weeks PT Goal 4: Pt will demonstrate understanding of HEP via return demonstration. 2 weeks Written by Micheal Melton on 01/18/2025 at 2:00 PM. Cosigned by Nagi Shepherd at 01/18/2025 2:16 PM EST Associated attestation - Nagi Shepherd - 01/18/2025 2:16 PM EST I was present and agree with all decisions made by this physical therapy student. I attest that their evaluation and treatments are appropriate for this patient and that we are in agreement with the plan of care. * Care Plan - Felisa Whitlock RN - 01/18/2025 10:26 AM EST Problem: Adult Inpatient Plan of Care Goal: Plan of Care Review Outcome: Ongoing, Progressing Flowsheets (Taken 01/18/2025 1025) Progress: no change Outcome Evaluation: Care plan reviewed with patient Plan of Care Reviewed With: patient Goal: Patient-Specific Goal (Individualized) Outcome: Ongoing, Progressing Flowsheets (Taken 01/18/2025 0800) Patient/Family-Specific Goals (Include Timeframe): Patients pain will remain 5 or less this shift with use of PRN pain mangement Individualized Care Needs: Pain Mangement Anxieties, Fears or Concerns: Addressed Goal: Absence of Hospital-Acquired Illness or Injury Outcome: Ongoing, Progressing Intervention: Identify and Manage Fall Risk Flowsheets (Taken 01/18/2025 1025) Safety Promotion/Fall Prevention: activity supervised assistive device/personal items within reach clutter-free environment maintained fall prevention program maintained nonskid shoes/slippers when out of bed safety round/check completed Goal: Optimal Comfort and Wellbeing Outcome: Ongoing, Progressing Intervention: Provide Person-Centered Care Flowsheets (Taken 01/18/2025 0800) Trust Relationship/Rapport: care explained emotional support provided empathic listening provided questions encouraged reassurance provided thoughts/feelings acknowledged Problem: Skin Injury Risk Increased Goal: Skin Health and Integrity Outcome: Ongoing, Progressing Intervention: Promote and Optimize Oral Intake Flowsheets Taken 01/18/2025 1025 Nutrition Interventions: diet adjusted Taken 01/18/2025 0800 Oral Nutrition Promotion: social interaction promoted Problem: Fall Injury Risk Goal: Absence of Fall and Fall-Related Injury Outcome: Ongoing, Progressing Intervention: Promote Injury-Free Environment Flowsheets (Taken 01/18/2025 1025) Safety Promotion/Fall Prevention: activity supervised assistive device/personal items within reach clutter-free environment maintained fall prevention program maintained nonskid shoes/slippers when out of bed safety round/check completed Problem: Infection Goal: Absence of Infection Signs and Symptoms Outcome: Ongoing, Progressing Intervention: Prevent or Manage Infection Flowsheets (Taken 01/18/2025 0800) Infection Management: aseptic technique maintained Fever Reduction/Comfort Measures: lightweight clothing lightweight bedding Isolation Precautions: precautions maintained * Progress Notes - Amanda Meza RN - 01/18/2025 9:12 AM EST Case Management Adult Progress Note Rosa Perdomo 74 y.o. female CSN: [id number] Admission: 01/15/2025 9:57 PM Primary Problem: Postoperative sepsis (CMS/HCC) Anticipated Discharge Date: 01/23 Has Discharge Plans Changed? No - home or agreeable to SNF (requesting [facility] if needed) Medicare Second Notice: NA at this time, >48 hours till discharge. Housing Circumstances: Not Applicable Housing Circumstances Action Taken: Other none Medically Ready for Discharge: Anticipated in 5+ Days Additional Comments Plan of Care and Discharge Plan reviewed with care team this am. Patient was admitted on 01/15 with post operative sepsis (recent spinal cord stimulator placed about 3 weeks ago). Neurosurgery consulted and went to OR on 01/16 for removal of stimulator. Sanz removed. PICC line to be replaced once blood cultures are clear. Not medically ready for discharge. PT/OT orders and - eval pending. Patient requesting [facility] if needed. CM will continue to follow for discharge needs. Addendum: PT/OT recs for Acute rehab. Difference between Acute and Subacute explained to patient. Patient states she would like to go to [facility] as it is closer to home. Attempted to reach spouseper patient request to also discuss with him. Unable to reach, unable to leave . Referrals to be made for [facility] when therapy notes are in. VM left for admissions at [facility]. Amanda Meza RN * Care Plan - Christina Fritz RN - 01/18/2025 12:37 AM EST Problem: Adult Inpatient Plan of Care Goal: Plan of Care Review Outcome: Ongoing, Progressing Flowsheets (Taken 01/18/202535) Progress: no change Outcome Evaluation: POC reviewed with pt. Agrees. Plan of Care Reviewed With: patient Goal: Patient-Specific Goal (Individualized) Outcome: Ongoing, Progressing Flowsheets (Taken 01/17/20251999) Patient/Family-Specific Goals (Include Timeframe): pt will turn/resposition every 2 hours during this shift Individualized Care Needs: reduce risk for skin breakdown Anxieties, Fears or Concerns: denies Goal: Absence of Hospital-Acquired Illness or Injury Outcome: Ongoing, Progressing Intervention: Identify and Manage Fall Risk Flowsheets (Taken 01/18/202535) Safety Promotion/Fall Prevention: activity supervised Intervention: Prevent Skin Injury Flowsheets Taken 01/18/20256 Skin Protection: incontinence pads utilized Taken 01/18/2025 0000 Body Position: turned right Intervention: Prevent and Manage VTE (Venous Thromboembolism) Risk Flowsheets (Taken 01/17/20251999) VTE Prevention/Management: SCDs (sequential compression devices) on Intervention: Prevent Infection Flowsheets (Taken 01/18/202535) Infection Prevention: hand hygiene promoted environmental surveillance performed single patient room provided Goal: Optimal Comfort and Wellbeing Outcome: Ongoing, Progressing Intervention: Monitor Pain and Promote Comfort Flowsheets (Taken 01/17/2025 9982) Pain Management Interventions: medication (see MAR) Intervention: Provide Person-Centered Care Flowsheets (Taken 01/18/202535) Trust Relationship/Rapport: care explained questions encouraged reassurance provided choices provided emotional support provided thoughts/feelings acknowledged empathic listening provided questions answered Problem: Skin Injury Risk Increased Goal: Skin Health and Integrity Outcome: Ongoing, Progressing Intervention: Optimize Skin Protection Flowsheets (Taken 01/18/202535) Activity Management: activity encouraged Pressure Reduction Techniques: frequent weight shift encouraged Pressure Reduction Devices: pressure-redistributing mattress utilized Skin Protection: incontinence pads utilized Head of Bed (HOB) Positioning: HOB elevated Intervention: Promote and Optimize Oral Intake Flowsheets (Taken 01/18/202535) Oral Nutrition Promotion: physical activity promoted Nutrition Interventions: diet adjusted Problem: Fall Injury Risk Goal: Absence of Fall and Fall-Related Injury Outcome: Ongoing, Progressing Intervention: Identify and Manage Contributors Flowsheets (Taken 01/18/202535) Medication Review/Management: medications reviewed Self-Care Promotion: independence encouraged Intervention: Promote Injury-Free Environment Flowsheets (Taken 01/18/202535) Safety Promotion/Fall Prevention: activity supervised Problem: Infection Goal: Absence of Infection Signs and Symptoms Outcome: Ongoing, Progressing Intervention: Prevent or Manage Infection Flowsheets (Taken 01/18/202535) Infection Management: aseptic technique maintained Fever Reduction/Comfort Measures: lightweight clothing lightweight bedding Isolation Precautions: precautions maintained * Consults - Giancarlo Pradhan - 01/17/2025 8:45 PM EST Pastoral Care Note Roll Mechanic visited with Rosa, she reports she wants a visit but this is not the best time. Chaplainwill follow up tomorrow as able. Referral From: Roll Mechanic Initiated Pastoral Care Provided For: Patient Patient Profile: Consult Reasons: Initial visit Spiritual Assessment: Support Systems/ Spiritual Resources: Family Spiritual Needs: Emotional support Interventions: Interventions Provided: Introduced Patient/Family to Roll Mechanic Services Pastoral Care Outcomes: Patient Outcomes: Is knowledgeable about Metal Punch Press Operator Services Ginacarlo Pradhan * Progress Notes - Cleve Deleon MD - 01/17/2025 6:28 PM EST Subjective Underwent explantation of DRG stimulator with Neurosurgery yesterday. Review of Systems Objective Vitals Temp: [36.3 ??C (97.3 ??F)-36.9 ??C (98.4 ??F)] 36.9 ??C (98.4 ??F) Heart Rate: [54-82] 80 Resp: [9-24] 20 BP: (123-179)/(39-105) 157/47 Physical Exam Cardiovascular: Rate and Rhythm: Normal rate and regular rhythm. Abdominal: Palpations: Abdomen is soft. Neurological: Mental Status: She is oriented to person, place, and time. Assessment & Plan Postoperative sepsis (CMS/HCC) Hypertension Diabetes mellitus Mixed hyperlipidemia Cellulitis of back except buttock Major depressive disorder with single episode, in remission (CMS/HCC) MRSA bacteremia MADELEINE (iron deficiency anemia) Gastroesophageal reflux disease without esophagitis Transaminitis 74 y.o. year-old female with PMH DM2, HTN, depression with anxiety, seizure disorder, GERD, acute diarrheal illness (recent C. diff), transferred here to [facility] from OSH for MRSA bacteremia. Spinal cord stimulator placed <3 weeks ago @ [facility]; Started on IV/oral vanc. Local surgeons declined case so transferred for further management. S/p device explantation on 01/16/25 with Neurosurgery. ID consulted, OPAT. MRSA bacteremia iso extensive cellulitis 2/2 early post-op spinal cord stimulator placement S/p device explantation on 01/16/25 with Neurosurgery. ID consulted plan for 28 days of vancomycin , OPAT consulted - TTE unremarkable - Once cultures from 01/16 stay negative, we will order vascular access consult for PICC line Hypomagnesemia - Replete PRN Elevated liver enzymes -RUQ US shows Mildly coarsened liver echotexture suggests parenchymal disease -daily LFTs -hepatitis screen pending HTN Resumed carvedilol Added procardia )Non insulin dependent Type 2 DM Plan: -Hypoglycemic protocol in place -A1c 7.8% #) Mixed hyperlipidemia Plan: -Continue home Statin #) Primary Hypertension Plan: -resume coreg #) MADELEINE - H/H = 9.4 (L)/28.1 (L) Plan: -Continue home Ferrous Sulfate - Continue serial lab assessment. - May require iron, folate, B12 supplementation as appropriate. - Transfuse as appropriate to target hgb > 7 #) GERD Plan: -Continue home PPI #) MDD Plan: -Continue home Trintellix and Elavil #) Seizure disorder? Plan: -Continue home Klonopin BID -Seizure precautions #) Obesity Body mass index is 37.8 kg/m??. -Complicates all aspects of care ' Medically Ready for Discharge:Anticipated in 5+ Days * Progress Notes - Darrius Valiente RN - 01/17/2025 5:29 PM EST OPAT Enrollment Progress Note Patient: Rosa Perdomo : 1950 Referring ID Team: General ID Indications for Use: Bacteremia: Source in comments (Additional Indications for Use comments may be attached to the order. To view those comments, please review the order in Chart Review) Evaluation Start Date: 01/17/25 Evaluation Status: Complete Enrollment Status: Modified OPAT Appropriate Modified Enrollment Reason: Patient and/or family/friend uncomfortable administering IV antimicrobial therapy in the home (requires comment if selected) Modified Enrollment Plan: OPAT at a medical/nursing facility (e.g, LTAC,[facility], Swing Bed, Nursing facility) Darrius Valiente RN 01/17/2025 OPAT Nurse Navigator Eligibility and Assessment Note (Modified OPAT) Patient has barriers to the standard OPAT criteria which are concerning for the safety of the patient. The patient has barrier(s) or challenges that need to be addressed and/or resolved for the patient to safely participate in standard OPAT. The medical team and/or case management will need to address needs to allow for safe discharge or identify an alternative facility (ex: SNF, rehab, outpatient infusion, correctional facility and Hemodialysis ) to provide care. Patient Name: Rosa Perdomo Primary ID Diagnosis: Bacteremia, list source: Spinal cord stimulator with MRSA Bacteremia Referring ID Provider: Dr. Kasper IV Antimicrobial Therapy Plan: See OPAT MD intake note for final recommendations IV Access: Single Lumen PICC Patient Specific Outpatient Circumstances: [address] [facility] [facility] [address] Contact information Rosa Perdomo [phone] (home) Extended Emergency Contact Information Primary Emergency Contact: Westley Perdomo Relation: Spouse Glass Lathe Operator needed? No Secondary Emergency Contact: Oumou Ocasio Relation: Daughter Outpatient services (including home infusion, home health, facility referral: See recent [facility] case management/social work note for finalization of services ID follow up appointment: Future Appointments Date Time Provider Department Center 01/31/2025 1:00 PM Dona Nava PA [id number] [place] Patient Assessment After review and discussion with the ID physician, the patient is currently enrolled in the Modified OPAT program. Patient is unable to administer IV antimicrobial therapy at home. But is appropriated for the Modified OPAT program. Please direct questions to OPAT referral team, another member of the OPAT team, or the ID consulting provider via secure chat or staff messaging in [employer]. OPAT Modified program for IV antimicrobial therapy for the following reason(s): Patient is uncomfortable to participate in IV antimicrobial therapy in the home. No support at this time. If patient is discharged against ID service recommendations to home for IV antibiotic therapy, ID service will defer post-discharge antibiotic management to the primary service. Patient will be followed by the Infectious Disease team in the Modified OPAT. If the patient is being discharged out of state or to follow with a non-[facility] provider, reach out to the OPAT team and the ID provider responsible initially referring the patient. Please let us know if you have any questions or concerns. This note is not the final recommendations from the infectious diseases team, please refer to the most recent note for this information. Darrius RAMIREZ, RN 01/17/2025 * Query Clarification Note - Cleve Deleon MD - 01/17/2025 4:20 PM EST Please review the following and provide your response below. Moderate malnutrition is documented in the medical record on 01/16 in [facility]P. Malnutrition Identified: No is documented in the medical record on 01/16 in Nutrition Consult. Please clarify the conflicting documentation by providing the most appropriate diagnosis that supports the clinical indicators and any additional evaluation, monitoring, and/or treatment provided: [x]No malnutrition noted []Moderate malnutrition []Other explanation of clinical findings (please specify) This documentation will become part of the patient's medical record. * Significant Event - Asher Walker DO - 01/17/2025 1:48 PM EST ID OPAT INTAKE NOTE: Transitions of Care Summary OPAT Category: Modified OPAT, pending nurse navigator evaluation If patient enrolled into Modified OPAT Program list reason (ONLY if no Nurse Navigator assessment required): Patient and/or family/friend is uncomfortable administering IV antimicrobial therapy in the home (If selected, describe further) and Other, please describe further: [facility] (e.g, [facility], [facility], Nursing facility) Patient lives out of state: No If yes, is ID provider able to provide orders in destination state: No Referring ID Physician (Fellow/Attending): Willie Shrestha Diagnosis: Bacteremia, list source: Spinal cord stimulator with MRSA Bacteremia IV Access: Single Lumen PICC - note has a PICC but we are recommending replacement Antimicrobial Regimen: Antimicrobials (including doses): Daptomycin 10mg/kg IV q24h (she is on vancomycin inpatient but would like to change to dapto once outpatient) Start date: 01/16/2025 Projected End Date: 02/12/2025 Transition to oral therapy: No If yes, antimicrobial (with dose/end dates): Future Imaging: No; ordered for n/a (date & time OR to be scheduled when outpatient) Lab Monitoring (weekly, preferably on Mondays unless otherwise specified): CBC w/ differential *CRP for patients with bone/joint infections and endocarditis or endovascular infections Antimicrobial specific labs: Daptomycin: BUN, SrCr, LFTs, and CPK; Unless daptomycin use is clinically warranted defer first-dose until day of discharge. Please fax all labs to: ID OPAT Team Attn: Willie Shrestha (insert ID provider) Fax #: [phone] Appointments: (Co-clinic 01/31/2025 Insert ID Provider; date and time) at: [facility]: [address] [address] (Select Option 3 for IV Antibiotic / PICC line related issues) For questions regarding OPAT prior to discharge, reach out to the OPAT team via [employer] Secure Chat (Group: OPAT Referral Team). For all questions regarding OPAT after discharge should be directed to the OPAT Team at (Select Option 3 for IV Antibiotics/PICC Issues) between 8am-5pm. After 5 pm, or during weekends/[facility] holidays, please call the paging caterpillar operator at to reach the on-call ID fellow. PLEASE NOTIFY THE ID CONSULTING SERVICE OF ANY QUESTIONS REGARDING THESE RECOMMENDATIONS OR WITH ANY ANTIMICROBIAL CHANGES THAT OCCUR AFTER THE DATE/TIME OF THIS OPAT INTAKE NOTE. * Care Plan - Ofelia Osei RN - 01/17/2025 12:25 PM EST Problem: Adult Inpatient Plan of Care Goal: Plan of Care Review Outcome: Ongoing, Progressing Flowsheets (Taken 01/17/2025 1224) Progress: no change Plan of Care Reviewed With: patient Goal: Patient-Specific Goal (Individualized) Outcome: Ongoing, Progressing Flowsheets (Taken 01/17/2025 0800) Patient/Family-Specific Goals (Include Timeframe): Patient will report adequate pain control duringthis shift. Individualized Care Needs: Pain management Anxieties, Fears or Concerns: Wants to go home Goal: Absence of Hospital-Acquired Illness or Injury Outcome: Ongoing, Progressing Intervention: Prevent Skin Injury Flowsheets Taken 01/17/2025 1224 Skin Protection: transparent dressing maintained Taken 01/17/2025 1200 Body Position: weight shifting Goal: Optimal Comfort and Wellbeing Outcome: Ongoing, Progressing Intervention: Provide Person-Centered Care Flowsheets (Taken 01/17/2025 1224) Trust Relationship/Rapport: care explained questions encouraged choices provided reassurance provided emotional support provided thoughts/feelings acknowledged empathic listening provided questions answered Problem: Skin Injury Risk Increased Goal: Skin Health and Integrity Outcome: Ongoing, Progressing Intervention: Promote and Optimize Oral Intake Flowsheets (Taken 01/17/2025 1224) Oral Nutrition Promotion: physical activity promoted Nutrition Interventions: diet adjusted Problem: Fall Injury Risk Goal: Absence of Fall and Fall-Related Injury Outcome: Ongoing, Progressing Intervention: Promote Injury-Free Environment Flowsheets (Taken 01/17/2025 0800) Safety Promotion/Fall Prevention: activity supervised assistive device/personal items within reach clutter-free environment maintained fall prevention program maintained lighting adjusted mobility aid in reach nonskid shoes/slippers when out of bed room organization consistent safety round/check completed toileting scheduled Problem: Infection Goal: Absence of Infection Signs and Symptoms Outcome: Ongoing, Progressing Intervention: Prevent or Manage Infection Flowsheets Taken 01/17/2025 1224 Infection Management: aseptic technique maintained Fever Reduction/Comfort Measures: lightweight bedding lightweight clothing Taken 01/17/2025 0800 Isolation Precautions: protective precautions maintained * Progress Notes - Amanda Meza RN - 01/17/2025 9:40 AM EST Case Management Adult Progress Note Rosa Perdomo 74 y.o. female CSN: [id number] Admission: 01/15/2025 9:57 PM Primary Problem: Postoperative sepsis (CMS/HCC) Anticipated Discharge Date: 01/23 Has Discharge Plans Changed? No - home or agreeable to SNF (requesting [facility] if needed) Medicare Second Notice: NA at this time, >48 hours till discharge. Housing Circumstances: Not Applicable Housing Circumstances Action Taken: Other none Medically Ready for Discharge: Anticipated in 5+ Days Additional Comments Plan of Care and Discharge Plan reviewed with care team this am. Patient was admitted on 01/15 with post operative sepsis (recent spinal cord stimulator placed about 3 weeks ago). Neurosurgery consulted and went to OR on 01/16 for removal of stimulator. PICC and sanz in place. Not medically ready for discharge. PT/OT orders and - eval pending. Patient requesting [facility] if needed. CM will continue to follow for discharge needs. Amanda Meza, RN * Progress Notes - Collins Thorne MD - 01/17/2025 9:10 AM EST Neurosurgery Consult Follow-up Note History, exam, and imaging review with attending and discussed on rounds this morning. Rosa Perdomo is a 74 y.o. female presenting with Early post-op DRG stimulator infection with MRSA bacteremia, extensive cellulitis, no abscess. Diabetic, immunocompromised. S/p device explantation on01/16/25. Neuro Exam GCS (EMV): 465 Awake, alert, oriented X3 Follows commands appropriately Speech clear PERRL, EOMI CN 2-12 grossly intact No drift Strength 5/5 throughout Sensation intact throughout [] Continue IV vancomycin, ID consult [] Glycemic control, SSI [] Q4 neuro/vitals - Rest of care per primary team - No further neurosurgical intervention required. Will sign off. Will follow peripherally for cultures - Thank you for allowing us to participate in the care of this patient. Please call with any questions or concerns. [phone] Collins Thorne MD Resident Physician, PGY-1 Department of Neurosurgery [facility] Cosigned by Fransisco Farley MD at 01/17/2025 1:00 PM EST Associated attestation - Fransisco Farley MD - 01/17/2025 1:00 PM EST I saw and evaluated the patient with the resident/fellow. I discussed the case with the resident/fellow and agree with the findings and plan as documented. * Care Plan - Cydney Valiente RN - 01/17/2025 3:17 AM EST Problem: Adult Inpatient Plan of Care Goal: Plan of Care Review Outcome: Ongoing, Progressing Flowsheets (Taken 01/17/2025314) Progress: no change Outcome Evaluation: POC reviewed with patient. Continue with current regimen Plan of Care Reviewed With: patient Goal: Patient-Specific Goal (Individualized) Outcome: Ongoing, Progressing Flowsheets (Taken 01/17/2025 0100) Patient/Family-Specific Goals (Include Timeframe): Patient pain will be =/< 3 until end of [place] 01/17 @0700. Individualized Care Needs: Patient needs interventions to manage pain until end of shift on 01/17 @0700 Anxieties, Fears or Concerns: denies Goal: Absence of Hospital-Acquired Illness or Injury Outcome: Ongoing, Progressing Intervention: Identify and Manage Fall Risk Flowsheets (Taken 01/17/2025314) Safety Promotion/Fall Prevention: activity supervised assistive device/personal items within reach clutter-free environment maintained fall prevention program maintained lighting adjusted nonskid shoes/slippers when out of bed safety round/check completed Intervention: Prevent Skin Injury Flowsheets (Taken 01/17/2025314) Body Position: weight shifting Skin Protection: transparent dressing maintained Intervention: Prevent and Manage VTE (Venous Thromboembolism) Risk Flowsheets (Taken 01/17/2025 0200) VTE Prevention/Management: bilateral SCDs (sequential compression devices) on Intervention: Prevent Infection Flowsheets (Taken 01/17/2025314) Infection Prevention: environmental surveillance performed equipment surfaces disinfected hand hygiene promoted Goal: Optimal Comfort and Wellbeing Outcome: Ongoing, Progressing Intervention: Monitor Pain and Promote Comfort Flowsheets (Taken 01/17/2025314) Pain Management Interventions: medication (see MAR) Intervention: Provide Person-Centered Care Flowsheets (Taken 01/17/2025314) Trust Relationship/Rapport: care explained choices provided emotional support provided empathic listening provided questions answered questions encouraged reassurance provided thoughts/feelings acknowledged Problem: Skin Injury Risk Increased Goal: Skin Health and Integrity Outcome: Ongoing, Progressing Intervention: Optimize Skin Protection Flowsheets (Taken 01/17/2025314) Activity Management: activity adjusted per tolerance Pressure Reduction Techniques: frequent weight shift encouraged Pressure Reduction Devices: pressure-redistributing mattress utilized positioning supports utilized Skin Protection: transparent dressing maintained Head of Bed (HOB) Positioning: HOB elevated Intervention: Promote and Optimize Oral Intake Flowsheets (Taken 01/17/2025314) Oral Nutrition Promotion: physical activity promoted Nutrition Interventions: frequent small meals provided Problem: Fall Injury Risk Goal: Absence of Fall and Fall-Related Injury Outcome: Ongoing, Progressing Intervention: Identify and Manage Contributors Flowsheets (Taken 01/17/2025314) Medication Review/Management: medications reviewed Self-Care Promotion: independence encouraged Intervention: Promote Injury-Free Environment Flowsheets (Taken 01/17/2025314) Safety Promotion/Fall Prevention: activity supervised assistive device/personal items within reach clutter-free environment maintained fall prevention program maintained lighting adjusted nonskid shoes/slippers when out of bed safety round/check completed Problem: Infection Goal: Absence of Infection Signs and Symptoms Outcome: Ongoing, Progressing Intervention: Prevent or Manage Infection Flowsheets (Taken 01/17/2025314) Infection Management: aseptic technique maintained Fever Reduction/Comfort Measures: lightweight bedding Isolation Precautions: droplet * Anesthesia PACU Signout - Cyndi Enriquez DO - 01/16/2025 6:13 PM EST Patient: Rosa Perdomo Anesthesia Type: general Vitals Value Taken Time BP 103/76 01/16/25 18:00 Temp 36.8 ??C (98.2 ??F) 01/16/25 18:00 Pulse 75 01/16/25 18:12 Resp 14 01/16/25 18:12 SpO2 93 % 01/16/25 18:12 Vitals shown include unfiled device data. Anesthesia PACU Signout Patient location during evaluation: PACU Patient participation: complete - patient participated Level of consciousness: baseline and awake Pain management: adequate (pain score 0-3) Airway patency: natural airway Hydration status: acceptable PONV: none Cardiovascular status: acceptable and hemodynamically stable Respiratory status: acceptable, spontaneous ventilation, unassisted, nonlabored ventilation and nasal cannula Discharge Disposition: admit to inpatient unit Comments: Patient is s/p Procedure(s) and Anesthesia Type: * EXPLORATION, WOUND, POSSIBLE SCS REMOVAL/REVISION, ALL OTHER INDICATED PROCEDURES - General. Patient remains HDS on 2L NC, neurologically appropriate, pain is controlled, and tolerating PO w/oN/V. Patient is appropriate for discharge from PACU to inpatient unit for continued postop care. Cosigned by Jay Liang MD at 01/24/2025 6:26 PM EST Associated attestation - Jay Liang MD - 01/24/2025 6:26 PM EST . * Progress Notes - Renae Resendiz APRN, DNP - 01/16/2025 5:03 PM ESTAssociated Order(s): Inpatient consult to Infectious Diseases Inpatient consult to Infectious Diseases Consult performed by: Renae Resendiz APRN, DNP Consult ordered by: Cleve Deleon MD Attempted to see patient for ID consult - patient in OR for nerve stimulator removal/revision. Willround and assess tomorrow (01/16) morning. Renae Resendiz APRN, DNP Infectious Diseases * Op Note - Fransisco Farley MD - 01/16/2025 4:04 PM EST Operative Note Date: 01/16/2025 Location: [facility] Name: Rosa Perdomo, : 1950, Diagnoses: Pre-op Diagnosis MRSA bacteremia Infection of spinal cord stimulator, initial encounter Wound infection Post-op Diagnosis MRSA bacteremia Infection of spinal cord stimulator, initial encounter Wound infection Procedure(s): Explantation of entire spinal cord stimulator system (leads and IPG) Irrigation and debridement of midline lumbar and right paraspinal wounds Attending Surgeon(s): * Fransisco Farley - Primary Color Card Maker(s): * Janene Terrell MD - Resident - Assisting Anesthesia: General ASA: III Blood Administration: Blood Product Administration History None Estimated Blood Loss: 10 cc Drains: Urethral Catheter Non-latex 16 Fr. (Active) Site Assessment Clean;Skin intact 01/16/25 1507 CAUTI: Collection Container Standard drainage bag 01/16/25 1507 CAUTI: Securement Method Securing device (Describe) 01/16/25 0800 CAUTI: Specimen Collection Port Covered with Alcohol Cap Yes 01/16/25 1507 CAUTI: Urinary Catheter Indication Yes, meets indication reason 01/16/25 1507 CAUTI: Urinary Catheter Indication Reasons Documented acute urinary retention or obstruction 01/16/25 0800 Output (mL) 1000 mL 01/16/25 09 Specimen: Specimens ID Source Frozen? A Back, Lower Description: Flank Abscess B Back, Lower Description: Hardware for culture Findings: Right paraspinal/flank abscess within IPG pocket tracking into midline lumbar wound. Indications: Rosa Perdomo is an 74 y.o. lady with SCS stimulator placed recently by OSH, presentingwith sepsis, MRSA bacteremia, found to have infected spinal wounds involving SCS hardware. Narrative: After identification in the preop holding area the patient was brought back to the operating room where she was intubated, sedated, flipped prone onto the Rocco table. Her arms were outstretched and all bony prominences were padded. Her back was cleaned before being formally prepped and draped inusual sterile fashion. After a time-out was called we used 15-blade scalpel to re-open the existingright flank IPG pocket wound then taken down through soft tissue with Bovie electrocautery until the generator was exposed. There was zeina purulence emanating from the pocket which was swabbed for culture then drained out. The generator was removed from the pocket. We uncoiled the wires within thepocket then attempted to gently pull the rest of the wires from the pocket wound. However, there was resistance so we opened the midline lumbar wound with 15- blade scalpel and carried it down throughsoft tissue with Bovie electrocautery. The tissue was friable as well within this lumbar wound, andthere appeared to be a small pocket of pus that had tracked from the flank pocket. We identified the two wire connectors and released it from fascia/soft tissue by cutting the anchoring stitches. We then pulled out both intrathecal electrodes without any resistance. The wires were cut then removed from the patient's body and the surgical field. All explanted hardware was sent for culture. We confirmed with X-ray that there was no retained hardware. We then debrided the devitalized and friable wound edges and soft tissue layers of both wounds with curette and 15- blade scalpel. After the wound was thoroughly debrided we copiously irrigated the wound with hydrogen peroxide, betadine, followed by saline. We laid vancomycin powder and closed the deep/fascial layer with interrupted 0 PDS sutures. Dermal and subcutaneous layers were closed with 2-0 PDS suture. Skin closed withrunning subcuticular 4-0 Stratafix suture. The wounds were cleaned, Dermabond then Covaderm applied. The patient was then flipped back onto her hospital bed where she was extubated and taken to PACU in stable condition. Dr. Brian was immediately available for all critical portions of the case. At the time of surgery, the following signs of infection were present: zeina purulence. Complications: None; patient tolerated the procedure well. Submitted by: Janene Terrell MD - 01/16/2025 Attending Attestation - Fransisco Yarbrough MD: I saw and evaluated the patient with the residents before surgery. I discussed the case with the residents and agree with the plan of care as documented. I was present and scrubbed for the viera portions of the surgery and immediately available for the entirety of the case. * Consults - Renae Resendiz APRN, EDVIN - 01/16/2025 1:22 PM ESTAssociated Order(s): PHARMACY TO DOSE MEDICATION Images from the original note were not included. GENERAL INFECTIOUS DISEASE INPATIENT CONSULT NOTE Reason for Consult: MRSA bacteremia, recent spinal cord stimulator Primary Attending: Cleve Deleon MD Date of admission: 01/15/2025 History of Present Illness: Rosa Perdomo is a 74 y.o. female with history of DM2, hypertension, depression and anxiety, GERD was transferred to [facility] from outside facility for concern of MRSA bacteremia on 01/15. About 3 weeks ago she underwent spinal cord stimulator placement for spinal arthritis pain management. She returned to the facility via EMS after being unable to get up from a fall out of bed and worsening weakness. She reported worsening pain over the last few weeks around the insertion site of her stimulator but denies discharge or notable swelling. Blood cultures obtained at the facility (01/14) showed MRSA and she was transferred to [facility] for further management. It appears that prior to the [facility] a PICC was placed while blood cultures were pending. Upon admission at [facility], no discharge was noted, but extensive cellulitis was present per primary team. She was started on IV vancomycin in the ED at admission and has continued with pharmacy managing dosing. Neurosurgery consulted and took her to the OR for exploration and ultimate removal of device on 01/16. During the operation purulent discharge was noted and cultures collected, additionally surgeons noted a small pus pocket tracked from the flank pocket It does not appear that bone was involvedper OR report. The hardware was completely removed, and sent for culture. Post op IV antibiotics were started (Cefepime and Metronidazole) in addition to Vancomycin. Review of Systems: Review of Systems Constitutional: Negative for fatigue and fever. HENT: Negative. Eyes: Negative. Respiratory: Negative. Cardiovascular: Negative. Gastrointestinal: Negative. Endocrine: Negative. Genitourinary: Negative. Musculoskeletal: Positive for back pain. Allergic/Immunologic: Negative. Neurological: Negative. Hematological: Negative. Psychiatric/Behavioral: Negative. PMH: Past Medical History[1] PSH: Surgical History[2] FH: Family History[3] SH: Social History[4] Allergies: Allergies[5] Objective: Visit Vitals BP (!) 173/68 Pulse 75 Temp 37 ??C (98.6 ??F) (Oral) Resp 23 Ht 1.6 m (5' 3 ) Wt 96.8 kg (213 lb 6.5 oz) SpO2 92% BMI 37.80 kg/m?? Smoking Status Never BSA 2.07 m?? Physical Exam Vitals reviewed. Constitutional: Appearance: She is obese. Abdominal: Palpations: Abdomen is soft. Tenderness: There is no guarding. Musculoskeletal: General: No swelling or tenderness. Cervical back: Normal range of motion. Right lower leg: No edema. Left lower leg: No edema. Comments: Surgical dressing in place Skin: General: Skin is warm. Neurological: General: No focal deficit present. Mental Status: She is alert and oriented to person, place, and time. CV - RRR w/o m/r/g Pulm- coarse bilaterally Abd- soft, nt/nd without rebound Labs: CBC WBC 9.75 Hb 9.4 (L) Plt 338 Hct 28.1 (L) ANC 7.38 (H) BMP Na 137 Cl 103 BUN 17 Glu 141 (H) K 4.1 Co2 22 Cr 0.97 Mg 1.7 (L), Phos 2.7 LFT AST 77 (H) AlkPhos 271 (H) T Prot 6.1 (L) ALK 54 (H) Bili 0.4 Alb ?? D.Bili ?? Results from last 7 days Lab Units 01/16/25 0036 CRP mg/L 108.5* Results from last 7 days Lab Units 01/16/25 0036 SED RATE mm/hr 96* Medications: Current Scheduled Medications[6] Imaging/Studies: -- CT lumbar spine pending (01/16/2025) Microbiology: No results found for the last 90 days. Culture results from [facility] Results Procedure Component Value Units Date/Time Blood Culture (Aerobic/Anaerobet Set) [[id number]] Collected: 01/16/25 0128 Order Status: Completed Specimen: Blood from Hand, Right Updated: 01/16/25 0501 Culture Culture in lab Antimicrobials: -- Vancomycin [id number] 01/16 - present -- Cefepime IV 2g Q12H 01/16 - present -- Metronidazole PO 500mg Q8H 01/16 - present Assessment: Patient Summary: Rosa Perdomo is a 74 y.o. female with history of DM2, hypertension, depression and anxiety, GERD was transferred to [facility] from outside facility for concern of MRSA bacteremia on 01/15. About 3 weeks ago she underwent spinal cord stimulator placement for spinal arthritis pain management. Blood cultures obtained at the facility (01/14) showed MRSA and she was transferred to [facility] for further management. Blood cultures collected at [facility] on 01/16 show NGTD. VINCENT took her to the OR yesterday for explantation of her stimulator device with purulence noted. VINCENT started Ms. Perdomo on cefepime and metronidazole post- operatively, however these can be discontinued from an ID viewpoint. PICC was placed 01/15 at OSH - unfortunately, it appears that this line was placed before blood cultures were cleared at [facility]. If 01/16 cultures continue to remain negative, new line can be placed tomorrow 01/18 as she will likely need about 4 weeks of IV therapy upon discharge as suspected source has been removed. Surgical team didn't note any bone involvement in their operative note. Problem List: MRSA Bacteremia (POA) with hardware involvement Cultures obtained from OSH and scanned in (note above) PICC line placed at OSH (POA) DM, HTN, GERD, complicating all aspects of care Recommendations: Continue IV vancomycin Q24H with pharmacy dosing recs, please discontinue Cefepime and Metronidazole. Follow blood cultures - 01/16 repeat cultures show NGTD. ECHO pending - will follow for results Follow operative and hardware cultures. PICC placed (per records) 01/15 - concern for this given she was bacteremic with MRSA 01/14 - and I anticipate she will need a longer course of ABX Tentatively planning 28 days of therapy - but will follow-up all cultures, studies Will start OPAT process - patient lives at home with and does feel could help with ABX Thank you for the opportunity to see this patient in consultation. GENERAL ID will follow. Renae Resendiz APRN, DNP Infectious Diseases [1] Past Medical History: Diagnosis Date Abnormal EKG Anemia Breast cyst CKD (chronic kidney disease) stage 3, GFR 30-59 ml/min (CMS/HCC) Depression Diabetes mellitus Dyspnea HLD (hyperlipidemia) HTN (hypertension) Mitral valve prolapse Paroxysmal A-fib RSV (respiratory syncytial virus infection) Sciatica SVT (supraventricular tachycardia) (CMS/HCC) Trigger finger [2] Past Surgical History: Procedure Laterality Date CHOLECYSTECTOMY COLONOSCOPY ESOPHAGOGASTRODUODENOSCOPY HERNIA REPAIR WRIST SURGERY [3] History reviewed. No pertinent family history. [4] Social History Tobacco Use Smoking status: Never Smokeless tobacco: Never Substance Use Topics Alcohol use: Never Drug use: Never [5] Allergies Allergen Reactions Ozempic (0.25 Or 0.5 Mg-Dose) [Semaglutide(0.25 Or 0.5mg-Dos)] Vomiting Promethazine Other - please document in the comment field Sore mouth [6] amitriptyline, 25 mg, Oral, Nightly carvedilol, 25 mg, Oral, BID ferrous sulfate, 324 mg, Oral, BID with meals insulin regular, 0-5 Units, Subcutaneous, q6h LAURA miconazole nitrate, , Topical, BID mupirocin, 1 Application, Each Nostril, BID NIFEdipine XL, 30 mg, Oral, Daily nystatin, 1 Application, Topical, BID pantoprazole, 40 mg, Oral, BID rosuvastatin, 10 mg, Oral, Daily Insert peripheral IV, , , Once AND Saline lock IV, , , Once AND sodium chloride, 10 mL, Intravenous, q12h AND sodium chloride, 10 mL, Intravenous, PRN sodium chloride, 10 mL, Intravenous, q12h [START ON 01/17/2025] vancomycin, 1,500 mg, Intravenous, q24h Vortioxetine HBr, 20 mg, Oral, Daily Cosigned by Asher Sinha MD at 01/17/2025 1:44 PM EST Associated attestation - Asher Sinha MD - 01/17/2025 1:44 PM EST I attest to being involved in providing substantive part of the medical decision making in patient care. I personally saw and examined the patient, formulated the plan, and edited the note below to reflect my impression. Impressions: MRSA Bacteremia - 01/14/2025, cleared (thus far) on repeat cultures 01/16 Infected spinal stimulator s/p extraction 01/17/25 PICC (POA) placed in setting of bacteremia DM, HTN, Depression, Anxiety Recommendations: Agree with Vancomycin for now- tentatively planning 28d (discussed short course, though with co-morbidities feel 28d would be safer) Will f/up all cultures to completion Discussed PICC - would favor removal given placed (per report) 01/15 at OSH and was bacteremic on 01/14 ID will continue to follow & will start OPAT process MDM attestation - Today, I am treating the patient for MRSA bacteremia which can cause sepsis in the short-term future in the absence of appropriate treatment, as described in the note. - Independently interpreted test BCx which shows MRSA. - Discussed management of MRSA BSI with primary team and consulting services. - Discussed test interpretation of BCx with primary team - Reviewed notes by primary team and consulting services to determine appropriate plan of care as in the note. - Estimated Creatinine Clearance: 62.8 mL/min (by C-G formula based on SCr of 0.87 mg/dL).reviewed;antibiotics recommended above are dosed accordingly. - The patient is being intensively monitored for antimicrobial toxicity from IV ABX with the following tests: CBC, CMP. The following complex inpatient infectious disease services were performed today: Complex antimicrobial therapy counseling and treatment * Care Plan - Amanda Mcculre RN - 01/16/2025 12:30 PM EST Problem: Skin Injury Risk Increased Goal: Skin Health and Integrity Outcome: Ongoing, Progressing Intervention: Optimize Skin Protection Flowsheets (Taken 01/16/2025 1230) Skin Protection: skin sealant/moisture barrier applied Note: Patient evaluated by WOCN, individualized orders placed and care plan interventions placed, see wound care note for further details. * Progress Notes - Amanda Mcclure RN - 01/16/2025 12:28 PM EST Images from the original note were not included. Wound Care Consult Visit Date: 01/16/2025 Patient Name: Rosa Perdomo Date of : 1950 Admit Date: 01/15/2025 Reason for Consult: IP Wound Orders (From admission, onward) Start Ordered 01/16/25 0508 Wound ostomy eval and treat 2 Wounds Associated Once Comments: See LDA 01/16/25 0508 Wound Assessment: Wound 01/16/25 Traumatic Skin Tear Leg Anterior;Left;Upper;Inner (Active) Date First Assessed/Time First Assessed: 01/16/256 Primary Wound Type: Traumatic Secondary Wound Type - Traumatic: Skin Tear Location: Leg Wound Location Orientation: Anterior;Left;Upper;Inner Wound Description (Comments): left medial thigh Assessments 01/16/2025 10:50 AM Wound Image Left medial thigh with linear open blister formation. Unclear etiology. Appears too medial to be statlock placement. Recommend moist barrier for wound healing. Wound Assessment Red;Denuded Shape linear Non-staged Wound Description Partial thickness Active Orders Date Order Priority Status Authorizing Provider 01/16/25 1228 Apply/Change Wound Dressing 2 Wounds Associated Routine Active Cleve Deleon MD - Dressing Type: Other Dressings - Other: Other (Comment) - Other dressing (comment):: Gently cleanse skin to groin with soap and water. Allow to dry. Apply antifungal ointment for rash treatment BID, apply over skin tear also for moist wound healing. Wound 01/16/25 Irritant Contact Dermatitis Groin (Active) Date First Assessed/Time First Assessed: 01/16/25427 Primary Wound Type: Irritant Contact Dermatitis Location: Groin Assessments 01/16/2025 10:50 AM Wound Image Patient endorses burning; cleansed z-guard to assess; red rash present with satellite lesions. Peeling moist skin to base of groin fold. Recommend cleansing and using miconazole nitrate ointment BID. Wound Assessment [place];Denuded Rebecca-Wound Assessment Red;Rash Treatments Other (Comment) (ordered antifungal) Active Orders Date Order Priority Status Authorizing Provider 01/16/25 1228 Apply/Change Wound Dressing 2 Wounds Associated Routine Active Cleve Deleon MD - Dressing Type: Other Dressings - Other: Other (Comment) - Other dressing (comment):: Gently cleanse skin to groin with soap and water. Allow to dry. Apply antifungal ointment for rash treatment BID, apply over skin tear also for moist wound healing. Wound Team Plan: Wound care will follow up at regular intervals while inpatient; bedside nursing tofollow wound care recommendations as ordered and please re- consult sooner for new changes or concerns prior to follow up. Amanda Mcclure RN 01/16/2025 12:28 PM * Care Plan - Ofelia Osei RN - 01/16/2025 12:01 PM EST Problem: Adult Inpatient Plan of Care Goal: Plan of Care Review Outcome: Ongoing, Progressing Flowsheets (Taken 01/16/2025 1200) Progress: no change Plan of Care Reviewed With: patient Goal: Patient-Specific Goal (Individualized) Outcome: Ongoing, Progressing Flowsheets (Taken 01/16/2025 08) Patient/Family-Specific Goals (Include Timeframe): Patient will remain free from injury during thisshift. Individualized Care Needs: Safety Anxieties, Fears or Concerns: Surgery Goal: Absence of Hospital-Acquired Illness or Injury Outcome: Ongoing, Progressing Intervention: Prevent and Manage VTE (Venous Thromboembolism) Risk Flowsheets (Taken 01/16/2025 08) VTE Prevention/Management: SCDs (sequential compression devices) on Goal: Optimal Comfort and Wellbeing Outcome: Ongoing, Progressing Intervention: Provide Person-Centered Care Flowsheets (Taken 01/16/2025 1200) Trust Relationship/Rapport: care explained questions encouraged choices provided reassurance provided emotional support provided thoughts/feelings acknowledged empathic listening provided questions answered Problem: Skin Injury Risk Increased Goal: Skin Health and Integrity Outcome: Ongoing, Progressing Intervention: Optimize Skin Protection Flowsheets Taken 01/16/20251199 Pressure Reduction Techniques: frequent weight shift encouraged Skin Protection: incontinence pads utilized Taken 01/16/2025799 Activity Management: activity encouraged Head of Bed (HOB) Positioning: HOB elevated Problem: Fall Injury Risk Goal: Absence of Fall and Fall-Related Injury Outcome: Ongoing, Progressing Intervention: Promote Injury-Free Environment Flowsheets (Taken 01/16/2025 08) Safety Promotion/Fall Prevention: activity supervised assistive device/personal items within reach clutter-free environment maintained fall prevention program maintained lighting adjusted mobility aid in reach nonskid shoes/slippers when out of bed room organization consistent safety round/check completed toileting scheduled Problem: Infection Goal: Absence of Infection Signs and Symptoms Outcome: Ongoing, Progressing Intervention: Prevent or Manage Infection Flowsheets Taken 01/16/20251199 Infection Management: aseptic technique maintained Fever Reduction/Comfort Measures: lightweight bedding lightweight clothing Taken 01/16/2025 08 Isolation Precautions: contact precautions maintained * Progress Notes - Amanda Meza RN - 01/16/2025 10:21 AM EST Case Management Adult Initial Progress Note Rosa Perdomo 74 y.o. female CSN: [id number] Admission: 01/15/2025 9:57 PM Primary Problem: Postoperative sepsis (CMS/HCC) Machine Cutter reviewed chart and spoke with patient and spouse at bedside to complete this Initial Case Management Assessment. PCP: Chase Gunn MD Emergency Contact: Extended Emergency Contact Information Primary Emergency Contact: Westley Perdomo Relation: Spouse Glass Lathe Operator needed? No Secondary Emergency Contact: AmarjitOumou Relation: Daughter Insurance: Primary Visit Coverage Payer Plan Sponsor Code Group Number Group Name MEDICARE MEDICARE A & B -- -- -- Primary Visit Coverage Subscriber Subscriber ID Subscriber Name Subscriber SSN Subscriber Address [id number] ROSA PERDOMO [phone] [place] [address] Secondary Visit Coverage Payer Plan Sponsor Code Group Number Group Name DORENEGIANA DOE PARMINDER -- [id number] -- Secondary Visit Coverage Subscriber Subscriber ID Subscriber Name Subscriber SSN Subscriber Address [id number] WESTLEY PERDOMO -- [address] [place] [address] Patient information: Primary Caregiver: Self Accompanied by/Relationship: spouse Support System: Immediate family Daily Living Activities: Functional Status: Independent Living Arrangements: Spouse/Significant other Type of Residence: Private residence, Multi Level (lives only on first floor, ramp entry) [address] [place] [address] Smoker in the Home?: Yes Current DME: Equipment Currently Used at Home: walker, rollator, shower chair Income Information: Income Source: Retired Income/Expense Information: Income meets expenses Current Resources Utilized: None Housing Circumstances-Z Codes: Housing Circumstances (select all that apply): None Applicable Patient Referred to: No referrals at this time Anticipated Discharge Date: 01/23/25 Patient's Discharge Goal: Home or rehab Assistance Available at Discharge: Spouse home 31/08 Discharge Transport: TBD (pending OR) Follow Up Transport: spouse Home Health / Home Infusion / Outpatient Dialysis Services: Denies HH, HD and HI Living Will/Advance Directive/Power of Product Scientist /Guardian: Have you reviewed your Advance Directive and is it valid for this stay?: No Advance Directive: Patient has advance directive, copy not in chart Advance Directive not in Chart: Copy requested from family Information Provided on Healthcare Directives: No Pre-existing DNR/DNI Order: No Patient Requests Assistance: No Patient reports she has a living will and spouse is HCS. Copy requested. Additional Comments: Plan of Care and Discharge Plan reviewed with care team this am. Patient was admitted on 01/15 with post operative sepsis (recent spinal cord stimulator placed about 3 weeks ago). Neurosurgery consulted and going to OR today. PICC and sanz in place. Not medically ready for discharge. Will need PT/OT after surgery. If rehab is recommended, would like to go to [facility]. CM will continue to follow for discharge needs. Amanda Meza RN * Consults - Nani Leija RD - 01/16/2025 9:06 AM ESTAssociated Order(s): IP CONSULT TO NUTRITION SERVICES Adult Nutrition Evaluation Note Rosa Perdomo 74 y.o. female CSN: [id number] Room/Bed 135/135A Nutrition evaluation type: assessment Reason for evaluation: provider consult Hospital course: 74 y/o F presented as a transfer from OSH for MRSA bacteremia. 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 To OR 01/16 for exploration vs removal vs replacement. Past medical/ surgical history: Past Medical History[1] Surgical History[2] Social history: Additional comments: 01/16: Pt seen at bedside with spouse present. Decreased appetite for the past ~1-2 weeks while at OSH, otherwise normal at home. Unintentional weight gain recently. Used to weigh ~180#, now weighing ~200+. No chewing issues but does report swallowing difficulty. Solids get stuck going down. Spouse reports hx of esophageal dilation. No issues at this time with N/V/D/C. Anticipating surgery sometime this PM. Vitals and Basic Assessment: BP: (!) 173/68 Temp: 37 ??C (98.6 ??F) Oxygen Therapy: None (Room air) Lincoln Coma Scale Score: 15 Isael Scale Score: 14 Rocco/Cubbin Pressure Risk Score: 31 Most Recent BM Date: 01/15/25 Edema: Right lower extremity, Left lower extremity Skin: wound left upper leg, vagina Allergies: no known food allergies Medications: Current Scheduled Medications[3] Current Continuous Medications[4] Current PRN Medications[5] Meds were reviewed: Yes Labs: Lab Results Component Value Date WBC 9.75 01/16/2025 HGB 9.4 (L) 01/16/2025 HCT 28.1 (L) 01/16/2025 MCV 96 01/16/2025 PLT 338 01/16/2025 Lab Results Component Value Date GLUCOSE 141 (H) 01/16/2025 CALCIUM 9.0 01/16/2025 NA 137 01/16/2025 K 4.1 01/16/2025 CO2 22 01/16/2025 CL 103 01/16/2025 BUN 17 01/16/2025 CREATININE 0.97 01/16/2025 PHOS 2.7 01/16/2025 MG 1.7 (L) 01/16/2025 HGBA1C 7.8 (H) 01/16/2025 Lab Results Component Value Date CRP 108.5 (H) 01/16/2025 Lab Results Component Value Date ALT 54 (H) 01/16/2025 AST 77 (H) 01/16/2025 ALKPHOS 271 (H) 01/16/2025 BILITOT 0.4 01/16/2025 Anthropometrics: Height: 160 cm (5' 3 ) Weight: 96.8 kg (213 lb 6.5 oz) BMI (Calculated): 37.81 Weight Evaluation: Obese-Class 2 (BMI 35-39.9) [place]more Body Weight (kg): 52.2 Percent Elmore Body Weight: 185 Adjusted Body Weight (kg): 63.4 Wt Readings from Last 10 Encounters: 01/15/25 96.8 kg (213 lb 6.5 oz) 07/30/22 89.8 kg (198 lb) Estimated Needs: Metabolic Cart Study Results: Current Nutrition Intake: Diet Order: NPO Diet Experience and Nutrition History: Diet Education Provided: Will monitor Pertinent home medications: Yarsani needs: Nutrition Focused Physical Exam: Physical exam performed on (date): 01/16 Temples (muscles): None Clavicle (muscle): None Shoulder (muscle): None Interosseous (muscle): None Orbital (fat): None Triceps (fat): None Energy Intake: Decreased appetite for the past 1-2 weeks while admitted at OSH, previously eating normally Weight Loss: Weight gain unintentionally - used to weigh ~180#, now believes she's weighing ~200# Assessment of Malnutrition: Malnutrition Identified: No Nutrition Problem: Increased nutrient needs kcal, pro related to increased biological demand as evidenced by postoperative infection. Status of Nutrition Diagnosis: New Nutrition Interventions and Recommendations: - NPO for OR - When appropriate, advance as tolerated to a regular, CC2 diet - Consult GI if indicated given reported difficulty swallowing, hx of esophageal dilation per spouse - Add Boost Glucose Control BID post-op to supplement PO - Rec daily MVI until PO improves Nutrition Monitoring and Goals: - Will monitor PO intake, weight status, lab results, GI tolerance, and skin integrity - Pt will have adequate source of nutrition by follow up - Pt will maintain weight this admission Acuity Level: 3 Nani Leija, RD, LD [1] Past Medical History: Diagnosis Date Abnormal EKG Anemia Breast cyst CKD (chronic kidney disease) stage 3, GFR 30-59 ml/min (CMS/HCC) Depression Diabetes mellitus Dyspnea HLD (hyperlipidemia) HTN (hypertension) Mitral valve prolapse Paroxysmal A-fib RSV (respiratory syncytial virus infection) Sciatica SVT (supraventricular tachycardia) (CMS/HCC) Trigger finger [2] Past Surgical History: Procedure Laterality Date CHOLECYSTECTOMY COLONOSCOPY ESOPHAGOGASTRODUODENOSCOPY HERNIA REPAIR WRIST SURGERY [3] amitriptyline, 25 mg, Oral, Nightly carvedilol, 25 mg, Oral, BID ferrous sulfate, 324 mg, Oral, BID with meals insulin regular, 0-5 Units, Subcutaneous, q6h LAURA miconazole nitrate, , Topical, BID mupirocin, 1 Application, Each Nostril, BID NIFEdipine XL, 30 mg, Oral, Daily nystatin, 1 Application, Topical, BID pantoprazole, 40 mg, Oral, BID rosuvastatin, 10 mg, Oral, Daily sodium chloride, 10 mL, Intravenous, q12h sodium chloride, 10 mL, Intravenous, q12h [START ON 01/17/2025] vancomycin, 1,500 mg, Intravenous, q24h Vortioxetine HBr, 20 mg, Oral, Daily [4] [5] PRN medications: bisacodyl, clonazePAM, glucose OR dextrose 10 % OR dextrose 10 % OR glucagon (human recombinant), HYDROmorphone, ipratropium- albuterol, melatonin, ondansetron ODT OR ondansetron OR ondansetron, oxyCODONE, simethicone, sodium chloride, Insert peripheral IV AND Saline lock IV AND sodium chloride AND sodium chloride, sodium chloride * Progress Notes - Fransisco Farley MD - 01/16/2025 8:03 AM EST Neurosurgery Consult Follow-up Note History, exam, and imaging review with attending and discussed on rounds this morning. Rosa Perdomo is a 74 y.o. female presenting with Early post-op DRG stimulator infection with MRSA bacteremia, extensive cellulitis, no abscess. Diabetic, immunocompromised. To OR today for removal. Neuro Exam GCS (EMV): 465 Awake, alert, oriented X3 Septic appearing Follows commands appropriately Speech clear PERRL, EOMI CN 2-12 grossly intact No drift Strength 5/5 throughout Sensation intact throughout Latest Reference Range & Units 01/16/25 00:36 Prothrombin Time 12.0 - 14.3 sec 15.3 (H) INR 0.9 - 1.1 1.2 (H) aPTT 25 - 35 sec 36 (H) (H): Data is abnormally high Latest Reference Range & Units 01/16/25 00:36 Platelet Count 155 - 369 10*3/uL 338 [] NPO - To OR today, will PMC [] Continue IV vancomycin, ID consult [] CRP/ESR/Blood cultures x 2 [] Glycemic control, SSI [] Admit to floor, Q4 neuro/vitals [] CT L spine w/wo contrast - Rest of care per primary team - Neurosurgery will continue to follow - Thank you for allowing us to participate in the care of this patient. Please call with any questions or concerns. [phone] Collins Thorne MD Resident Physician, PGY-1 Department of Neurosurgery [facility] Attending Attestation - Fransisco Yarbrough MD: I saw and evaluated the patient with the residents. I discussed the case with the residents and agree with the plan of care as documented. * Care Plan - Cydney Valiente RN - 01/16/2025 5:27 AM EST Problem: Adult Inpatient Plan of Care Goal: Plan of Care Review Outcome: Ongoing, Not Progressing Flowsheets (Taken 01/16/2025 0525) Outcome Evaluation: POC reviewed with patient. Continue with current regimen. Plan of Care Reviewed With: patient Goal: Patient-Specific Goal (Individualized) Outcome: Ongoing, Not Progressing Flowsheets (Taken 01/16/2025 0000) Patient/Family-Specific Goals (Include Timeframe): Patient will deny pain until end of shift on 01/16 @ 0700 Individualized Care Needs: Patient needs pain management until end of shift on 01/16 @ 0700 Anxieties, Fears or Concerns: denies Goal: Absence of Hospital-Acquired Illness or Injury Outcome: Ongoing, Not Progressing Intervention: Identify and Manage Fall Risk Flowsheets (Taken 01/16/2025 0525) Safety Promotion/Fall Prevention: activity supervised assistive device/personal items within reach Intervention: Prevent Skin Injury Flowsheets Taken 01/16/2025524 Skin Protection: transparent dressing maintained Taken 01/16/2025 0400 Body Position: weight shifting Intervention: Prevent and Manage VTE (Venous Thromboembolism) Risk Flowsheets (Taken 01/16/2025 0106) VTE Prevention/Management: bilateral SCDs (sequential compression devices) on Intervention: Prevent Infection Flowsheets (Taken 01/16/2025524) Infection Prevention: environmental surveillance performed equipment surfaces disinfected hand hygiene promoted personal protective equipment utilized rest/sleep promoted single patient room provided Goal: Optimal Comfort and Wellbeing Outcome: Ongoing, Not Progressing Intervention: Monitor Pain and Promote Comfort Flowsheets (Taken 01/16/2025 0134) Pain Management Interventions: medication (see MAR) Intervention: Provide Person-Centered Care Flowsheets (Taken 01/16/2025524) Trust Relationship/Rapport: care explained choices provided emotional support provided empathic listening provided questions answered Problem: Fall Injury Risk Goal: Absence of Fall and Fall-Related Injury Outcome: Ongoing, Not Progressing Intervention: Identify and Manage Contributors Flowsheets (Taken 01/16/2025 05) Medication Review/Management: medications reviewed Self-Care Promotion: independence encouraged Intervention: Promote Injury-Free Environment Flowsheets (Taken 01/16/2025524) Safety Promotion/Fall Prevention: activity supervised assistive device/personal items within reach Problem: Skin Injury Risk Increased Goal: Skin Health and Integrity Outcome: Ongoing, Not Progressing Intervention: Optimize Skin Protection Flowsheets Taken 01/16/2025524 Pressure Reduction Techniques: frequent weight shift encouraged Pressure Reduction Devices: pressure-redistributing mattress utilized Skin Protection: transparent dressing maintained Taken 01/15/2025 2200 Activity Management: activity adjusted per tolerance Head of Bed (HOB) Positioning: HOB elevated Intervention: Promote and Optimize Oral Intake Flowsheets (Taken 01/16/2025524) Oral Nutrition Promotion: physical activity promoted Nutrition Interventions: (npo) other (see comments) Problem: Infection Goal: Absence of Infection Signs and Symptoms Outcome: Ongoing, Not Progressing Intervention: Prevent or Manage Infection Flowsheets (Taken 01/16/2025 05) Infection Management: aseptic technique maintained Fever Reduction/Comfort Measures: lightweight clothing Isolation Precautions: contact * Progress Notes - Rajeev Vasquez, PharmD - 01/16/2025 1:30 AM EST Pharmacokinetic Consult - Therapeutic Drug Monitoring HPI and Hospital Course: Rosa Perdomo is a 74 y.o. female presenting with sepsis who was started onIV vancomycin for bacteremia. Pharmacy was consulted for management of vancomycin. Dose History: Recent Vancomycin Admin No antibiotic orders with administrations found. Wt Readings from Last 1 Encounters: 01/15/25 96.8 kg (213 lb 6.5 oz) BMI: 37.80 kg/m?? Creatinine, Plasma (mg/dL) Date/Time Value 01/16/2025 0036 0.97 11/01/2020 0756 1.16 (H) 05/04/2020 0354 0.95 05/01/2020 1251 1.14 (H) Estimated Creatinine Clearance: 56.4 mL/min (by C-G formula based on SCr of 0.97 mg/dL). Assessment Estimated kinetic evaluation utilizing population kinetics: Vancomycin Dosing Method Vancomycin Dose Calculation Method Area under the curve (AUC) dosing General Parameters for Vancomycin Dose Calculation (AUC) Dosing Weight 96.8 kg (213 lb 6.5 oz) Vancomycin clearance calculation method Crass equation (For BMI greater than 30) Administer over 90 minutes AUC 24 hr goal (mg-hr/L) 500 mg??hr/L Estimated creatinine clearance (mL/min 56.4 mL/min Matzke Equation Parameters for Vancomycin Dose Calculation (AUC) Estimated vancomycin Vd (0.7 L/kg typically) 0.7 L/kg (Typical) Crass Equation Parameters for Vancomycin Dose Calculation (AUC) Serum creatinine (mg/dL) 0.97 mg/dL Recommended Initial Vancomycin Dosing Estimated Ke (hr ^-1) 0.0512 hr^-1 Estimated half-life (hr) 13.54 hr Estimated vancomycin Cl (L/hr) 3.17 Recommended TDD (mg) 1585 Plan 1. Recommend loading dose of 2500 mg IV once 2. Recommend initiating vancomycin 1500 mg IV q24h for a total daily dose of 1500 mg and predicted AUC of 473 mg??hr/L. 3. Monitor renal function (Scr and BUN) and UOP at least 2-3x/week or more frequently if renal function changes. 4. Obtain vancomycin levels around the 4th dose of new regimen if therapy is to be continued. Pharmacy will continue to follow. Submitted by: Rajeev Vasquez PharmD 01/16/2025 1:30 AM * H&P - Naina Dubois, COMPLIANCE REVIEW SPECIALIST - 01/16/2025 12:41 AM EST Images from the original note were not included. Hospital Medicine History and Physical Chief Complaint: Cellulitis of surgical site and fever History of Present Illness: Rosa Perdomo is a 74 y.o. year-old female with PMH DM2, HTN, depression with anxiety, seizure disorder, GERD, acute diarrheal illness (recent C. diff), transferred here to [facility] from OSH for MRSA bacteremia. Spinal cord stimulator placed <3 weeks ago @ [facility]; Started on IV/oral vanc. Local surgeons declined case so transferred for further management. On assessment, patient resting in bed with no complaints. She reports that a little less than 3 weeks ago she had a spinal cord stimulator placed at an [facility]. The past couple days she developed pain and redness to the site, and just not feeling well, so she went to OSH. After work up at the the hospital, they had concerns the stimulator was infected and she was septic. They did not feel comfortabletreating her there so she was transferred here . She denies radiculopathy, new weakness, tingling, or numbness. Denies shortness of breath or chest pain. No GI or issues. Patient has been seen, history was obtained from patient and supplemented by medical record review. Admission for medical management. Review of Systems: Review of Systems Constitutional: Positive for activity change and fever. Negative for appetite change, chills, diaphoresis, fatigue and unexpected weight change. HENT: Negative for congestion, ear pain, mouth sores, nosebleeds, postnasal drip, rhinorrhea, sore throat and trouble swallowing. Eyes: Negative for photophobia, discharge, redness and visual disturbance. Respiratory: Negative for apnea, cough, chest tightness, shortness of breath and wheezing. Cardiovascular: Negative for chest pain, palpitations and leg swelling. Gastrointestinal: Negative for abdominal distention, abdominal pain, constipation, diarrhea, nauseaand vomiting. Endocrine: Negative for cold intolerance, heat intolerance, polydipsia, polyphagia and polyuria. Genitourinary: Negative for decreased urine volume, difficulty urinating, dysuria, flank pain, frequency, hematuria and urgency. Musculoskeletal: Positive for arthralgias and back pain. Negative for joint swelling, myalgias and neck pain. Skin: Positive for color change (redness to lower back over stimulator site). Negative for pallor and rash. Allergic/Immunologic: Negative for environmental allergies, food allergies and immunocompromised state. Neurological: Negative for dizziness, weakness, light-headedness and headaches. Hematological: Bruises/bleeds easily. Psychiatric/Behavioral: Negative for agitation, behavioral problems, confusion, dysphoric mood and sleep disturbance. The patient is not nervous/anxious. Past Medical History: Past Medical History[1] Surgical History: Surgical History[2] Family History: Family History[3] Social History: Living: [place] [id number] with family Marital Status: Alcohol Use: denies Recreational Drug Use: reports no history of drug use. Tobacco Use History[4] Travel History: Relevant Travel History: Travel Screening Question Response Have you been in contact with someone who was sick? No / Unsure Do you have any of the following new or worsening symptoms? None of these Have you traveled internationally or domestically in the last month? No Travel History Travel since 12/17/24 No documented travel since 12/17/24 Allergies: Ozempic (0.25 or 0.5 mg-dose) [semaglutide(0.25 or 0.5mg-dos)] Medications: Current Medications[5] Vital Signs: Visit Vitals BP (!) 179/76 Pulse 95 Temp 37.1 ??C (98.8 ??F) Resp 14 Ht 1.6 m (5' 3 ) Wt 96.8 kg (213 lb 6.5 oz) SpO2 93% BMI 37.80 kg/m?? Smoking Status Never BSA 2.07 m?? Physical Exam: General: well developed, well-nourished female who presents in no apparent distress Physical Exam Vitals and nursing note reviewed. Constitutional: General: She is not in acute distress. Appearance: Normal appearance. HENT: Head: Normocephalic. Right Ear: External ear normal. Left Ear: External ear normal. Nose: Nose normal. No congestion. Mouth/Throat: Mouth: Mucous membranes are moist. Pharynx: No oropharyngeal exudate. Eyes: Conjunctiva/sclera: Conjunctivae normal. Cardiovascular: Rate and Rhythm: Regular rhythm. Tachycardia present. Pulses: Dorsalis pedis pulses are 2+ on the right side and 2+ on the left side. Posterior tibial pulses are 2+ on the right side and 2+ on the left side. Comments: Trace edema BLE Pulmonary: Effort: Pulmonary effort is normal. Breath sounds: Normal breath sounds. No decreased breath sounds, wheezing, rhonchi or rales. Abdominal: Palpations: Abdomen is soft. Tenderness: There is no abdominal tenderness. Musculoskeletal: Cervical back: Normal range of motion. Right lower leg: Edema present. Left lower leg: Edema present. Neurological: Mental Status: She is alert and oriented to person, place, and time. GCS: GCS eye subscore is 4. GCS verbal subscore is 5. GCS motor subscore is 6. Psychiatric: Attention and Perception: Attention and perception normal. Speech: Speech normal. Behavior: Behavior normal. Cognition and Memory: Cognition and memory normal. Labs (in last 24 hours): CBC: Lab Results Component Value Date WBC 9.75 01/16/2025 RBC 2.94 (L) 01/16/2025 HGB 9.4 (L) 01/16/2025 HCT 28.1 (L) 01/16/2025 PLT 338 01/16/2025 MCV 96 01/16/2025 MCH 32.0 01/16/2025 MCHC 33.5 01/16/2025 RDW 14.2 01/16/2025 NRBC 0.0 01/16/2025 Differential: Lab Results Component Value Date WBC 9.75 01/16/2025 NEUTOPHILPCT 75 01/16/2025 LYMPHOPCT 11 01/16/2025 MONOPCT 10 01/16/2025 EOSPCT 2 01/16/2025 Coagulation: Lab Results Component Value Date INR 1.2 (H) 01/16/2025 Inflammatory markers/hemolysis: Results from last 7 days Lab Units 01/16/25 0036 PROCALCITONIN ng/mL 0.09* CRP mg/L 108.5* SED RATE mm/hr 96* Lactate: Urinalysis with microscopic: Renal: Lab Results Component Value Date NA 137 01/16/2025 K 4.1 01/16/2025 CL 103 01/16/2025 CO2 22 01/16/2025 BUN 17 01/16/2025 CREATININE 0.97 01/16/2025 GLUCOSE 141 (H) 01/16/2025 CALCIUM 9.0 01/16/2025 MG 1.7 (L) 01/16/2025 PHOS 2.7 01/16/2025 Liver: Lab Results Component Value Date AST 77 (H) 01/16/2025 ALT 54 (H) 01/16/2025 BILITOT 0.4 01/16/2025 Endocrine: Lab Results Component Value Date PGLU 144 (H) 01/16/2025 No results found for: HGBA1C No results found for: TSH , FREET4 Cardiac: Arterial Blood Gas: No results found for: O2SAT , BD , BE , YUD8NLS , PCO2 , PH , PO2 , PDP9EMYP Venous Blood Gas: No results found for: BDVEN , BEVEN , LKX2YEB , JQU3OMA , PO2VEN , G4YNWJLO , [id number] Microbiology: Results Procedure Component Value Units Date/Time Blood Culture (Aerobic/Anaerobet Set) [[id number]] Order Status: Sent Specimen: Blood, Venous Imaging (in last 24 hours): Personally reviewed and agree with following findings Assessment and plan: Principal problem: Postoperative sepsis (CMS/HCC) - Principal Problem: Postoperative sepsis (CMS/HCC) Active Problems: Hypertension Diabetes mellitus Mixed hyperlipidemia Cellulitis of back except buttock Major depressive disorder with single episode, in remission (CMS/HCC) MRSA bacteremia MADELEINE (iron deficiency anemia) Gastroesophageal reflux disease without esophagitis Transaminitis 74 y.o. year-old female with PMH DM2, HTN, depression with anxiety, seizure disorder, GERD, acute diarrheal illness (recent C. diff), transferred here to [facility] from OSH for MRSA bacteremia. Spinal cord stimulator placed <3 weeks ago @ [facility]; Started on IV/oral vanc. Local surgeons declined case so transferred for further management. #) MRSA bacteremia iso extensive cellulitis 2/2 early post-op spinal cord stimulator placement #) Low back pain - VS: Visit Vitals BP (!) 179/76 Pulse 95 Temp 37.1 ??C (98.8 ??F) SpO2 93% - Hemodynamically stable on admission: - WBC: 9.75, Platelets: 338, CRP: 108.5 (H) Procalcitonin: 0.09 (H) - Cr: 0.97 Bilirubin: 0.4 - PT:15.3 sec (01/16 0036), INR: 1.2 (H), aptt: 36 (H) - Na: 137 K: 4.1 -Vancomycin started at OSH -Neurosurgery consulted and recommendations/orders noted Plan: -NPO@[place] -Continue IV vancomycin, pharmacy to dose, ID consult in am -Blood cultures x 2 pending -Admit to floor, Q4 neuro/vitals -CT L spine w/wo contrast pending -LR @ 100/[id number]-ss-[id number] as appropriate -Continuous telemetry 03/12 hospital transfer -SCDs for DVT prevention, hold AC for procedure -Multimodal pain management: Tylenol, Oxycodone and Dilaudid prn -Continue routine lab monitoring Hypomagnesemia - M.7 (L) Plan: - Replaced, continue to monitor #) Transaminitis unknown etiology #) Moderate malnutrition - AST: 77 (H) , ALT: 54 (H), Alk Phos: 271 (H) , T.bili: 0.4 - INR: 1.2 (H), APTT: 36 (H) Serum Creatinine: 0.97 mg/dL (Using min of 1 mg/dL) at 01/16/2025 12:36 AM Serum Sodium: 137 mmol/L at 01/16/2025 12:36 AM Total Bilirubin: 0.4 mg/dL (Using min of 1 mg/dL) at 01/16/2025 12:36 AM Serum Albumin: 2.9 g/dL at 01/16/2025 12:36 AM INR(ratio): 1.2 at 01/16/2025 12:36 AM Age at listing (hypothetical): 74 years Sex: Female at 01/16/2025 12:36 AM Plan: - RUQ US pending - Monitor LFT's daily - Avoid NSAIDS/ASA, APAP <2 g/day if needed - Nutrition consult - Consider consult to hepatology in AM Chronic Medical Conditions: #)Non insulin dependent Type 2 DM Plan: -Hold po medications -Q 6 glucose monitoring with sliding scale for NPO status -Hypoglycemic protocol in place -A1c pending #) Mixed hyperlipidemia Plan: -Continue home Statin #) Primary Hypertension Plan: -Hold Coreg iso sepsis #) MADELEINE - H/H = 9.4 (L)/28.1 (L) Plan: -Continue home Ferrous Sulfate - Continue serial lab assessment. - May require iron, folate, B12 supplementation as appropriate. - Transfuse as appropriate to target hgb > 7 #) GERD Plan: -Continue home PPI #) MDD Plan: -Continue home Trintellix and Elavil #) Seizure disorder? Plan: -Continue home Klonopin prn -Seizure precautions #) Obesity Body mass index is 37.8 kg/m??. -Complicates all aspects of care Fluids: LR Electrolytes: Continue to monitor and replace as appropriate Diet: NPO diet DVT prophylaxis: SCDs Code status: Full Code Naina Dubois APRN Department of Internal Medicine Division of [facility] Medicine Secure chat preferred [1] Past Medical History: Diagnosis Date Abnormal EKG Anemia Breast cyst CKD (chronic kidney disease) stage 3, GFR 30-59 ml/min (CMS/HCC) Depression Diabetes mellitus (CMS/HCC) Dyspnea HLD (hyperlipidemia) HTN (hypertension) Mitral valve prolapse Paroxysmal A-fib (CMS/HCC) RSV (respiratory syncytial virus infection) Sciatica SVT (supraventricular tachycardia) (CMS/HCC) Trigger finger [2] Past Surgical History: Procedure Laterality Date CHOLECYSTECTOMY COLONOSCOPY ESOPHAGOGASTRODUODENOSCOPY HERNIA REPAIR WRIST SURGERY [3] No family history on file. [4] Tobacco Use Smoking Status Never Smokeless Tobacco Never [5] Current Facility-Administered Medications: amitriptyline (Elavil) tablet 25 mg, 25 mg, Oral, Nightly, Naina Dubois APRN bisacodyl (Dulcolax) EC tablet 10 mg, 10 mg, Oral, Daily PRN, Naina Dubois APRN clonazePAM (KlonoPIN) tablet 1 mg, 1 mg, Oral, BID PRN, Naina Dubois APRN glucose (Glutose) 40 % oral gel 15-30 grams of glucose, 15-30 grams of glucose, Sublingual, q15 minPRN OR dextrose 10 % (D10W) bolus 125 mL, 125 mL, Intravenous, q15 min PRN OR dextrose 10 %(D10W) bolus 250 mL, 250 mL, Intravenous, q15 min PRN OR glucagon (human recombinant) injection1 mg, 1 mg, Intramuscular, q15 min PRN, Naina Dubois APRN ferrous sulfate EC tablet 324 mg, 324 mg, Oral, BID with meals, Naina Dubois APRN HYDROmorphone (Dilaudid) injection 0.5 mg, 0.5 mg, Intravenous, q3h PRN, Demar Jiménez MD, 0.5 mg at 01/16/25 0029 insulin regular (HumuLIN R,NovoLIN R) 100 units/mL injection - Correction - Standard Dose, 0-5 Units, Subcutaneous, q6h LAURA, Naina Dubois APRN ipratropium-albuterol (Duo-Neb) 0.5-2.5 mg/3 mL nebulizer solution 3 mL, 3 mL, Nebulization, q6h PRN, Naina Dubois APRN lactated Ringer's infusion, 100 mL/hr, Intravenous, Continuous, Naina Dubois APRN, Last Rate: 100 mL/hr at 01/16/25 0135, 100 mL/hr at 01/16/25 0135 magnesium sulfate IVPB 2 g, 2 g, Intravenous, Once, Naina Dubois APRN melatonin tablet 3 mg, 3 mg, Oral, Nightly PRN, Naina Dubois APRN mupirocin (Bactroban) 2 % ointment 1 Application, 1 Application, Each Nostril, BID, Fransisco Farley MD, 1 Application at 01/16/25 0134 ondansetron ODT (Zofran-ODT) disintegrating tablet 4 mg, 4 mg, Oral, q6h PRN OR ondansetron (Zofran) injection 4 mg, 4 mg, Intravenous, q6h PRN OR ondansetron (Zofran) 4 MG/5ML solution 4 mg,4 mg, Oral, q6h PRN, Naina Dubois APRN oxyCODONE (Roxicodone) immediate release tablet 5 mg, 5 mg, Oral, q6h PRN, Demar Jiménez MD, 5 mg at 01/16/25 0134 pantoprazole (Protonix) EC tablet 40 mg, 40 mg, Oral, BID, Naina Dubois APRN rosuvastatin (Crestor) tablet 10 mg, 10 mg, Oral, Daily, Naina Dubois APRN simethicone (Mylicon) chewable tablet 80 mg, 80 mg, Oral, 4x daily PRN, Naina Dubois APRN sodium chloride 0.9 % flush 10 mL, 10 mL, Intravenous, q12h, Fransisco Farley MD, 10 mL at 01/16/25134 sodium chloride 0.9 % flush 10 mL, 10 mL, Intravenous, q1h PRN, Fransisco Farley MD Insert peripheral IV, , , Once AND Saline lock IV, , , Once AND sodium chloride 0.9 % flush10 mL, 10 mL, Intravenous, q12h, 10 mL at 01/16/25134 AND sodium chloride 0.9 % flush 10 mL, 10 mL, Intravenous, PRN, Naina Dubois APRN sodium chloride 0.9 % flush 20 mL, 20 mL, Intravenous, q1h PRN, Fransisco Farley MD [START ON 01/17/2025] vancomycin (Vancocin) 1,500 mg in sodium chloride 0.9% 250 mL IVPB (vial adapter required), 1,500 mg, Intravenous, q24h, Caitlyn Tay MD vancomycin (Vancocin) 2,500 mg in sodium chloride 0.9 % 500 mL IVPB, 25 mg/kg, Intravenous, Once, Caitlyn Tay MD, 2,500 mg at 01/16/25 013 Vortioxetine HBr (Trintellix) tablet 20 mg, 20 mg, Oral, Daily, Naina Dubois APRN * Consults - Caitlyn Tay MD - 01/15/2025 11:25 PM ESTAssociated Order(s): IP CONSULT TO NEUROSURGERY Reason For Consult Infected spinal cord stimulator (MRSA bacteremia) Requesting Service: HM Requested Date/Time: 01/15/2025 11:26 PM History Of Present Illness Rosa Perdomo is a 74 y.o. female with with DM2, acute diarrheal illness (recent C. diff), now foundto have MRSA bacteremia. Spinal cord stimulator placed <3 weeks ago @ OSH; ~20?inches indurationat site, no abscess, marked cellulitis. Started on IV/oral vanc. Local surgeons declined case; transferred for further mgt. On ASA 81. Denies heart disease. No radiculopathy, new weakness, tingling, or numbness. Past Medical History She has a past medical history of Abnormal EKG, Anemia, Breast cyst, CKD (chronic kidney disease) stage 3, GFR 30-59 ml/min (CMS/HCC), Depression, Diabetes mellitus (CMS/HCC), Dyspnea, HLD (hyperlipidemia), HTN (hypertension), Mitral valve prolapse, Paroxysmal A-fib (CMS/HCC), RSV (respiratory syncytial virus infection), Sciatica, SVT (supraventricular tachycardia) (CMS/HCC), and Trigger finger. Surgical History She has a past surgical history that includes Colonoscopy; Esophagogastroduodenoscopy; Wrist surgery; Hernia repair; and Cholecystectomy. Family History Family History[1] Social History She reports that she has never smoked. She has never used smokeless tobacco. She reports that she does not drink alcohol and does not use drugs. Medications Current Medications[2] Allergies Ozempic (0.25 or 0.5 mg-dose) [semaglutide(0.25 or 0.5mg-dos)] Neuro Exam GCS (EMV): 465 Awake, alert, oriented X3 Septic appearing Follows commands appropriately Speech clear PERRL, EOMI CN 2-12 grossly intact No drift Strength 5/5 throughout Sensation intact throughout Area of endurance, erythema, cellulitis over stimulator site, wound closed, no obvious discharge Last Recorded Vitals Visit Vitals BP (!) 183/80 Pulse 94 Temp (!) 38.3 ??C (101 ??F) (Oral) Resp 14 Ht 1.6 m (5' 3 ) Wt 96.8 kg (213 lb 6.5 oz) BMI 37.80 kg/m?? Smoking Status Never BSA 2.07 m?? Imaging I personally reviewed, independently interpreted, and read available radiology reports (as available) for the following studies, and with the following findings: No images available in the system Assessment and Plan Rosa Perdomo is a 74 y.o. female presenting with Early post-op spinal cord stimulator infection with MRSA bacteremia, extensive cellulitis, no abscess. Diabetic, immunocompromised. [] NPO@MN, labs/coags [] Continue IV vancomycin, ID consult in am [] CRP/ESR/Blood cultures x 2 [] Glycemic control, SSI [] Admit to floor, Q4 neuro/vitals [] CT L spine w/wo contrast Caitlyn Tay MD PGY-3, Neurosurgery [1] No family history on file. [2] No current facility-administered medications for this encounter. Cosigned by Fransisco Farley MD at 01/16/2025 3:21 PM EST Associated attestation - Fransisco Farley MD - 01/16/2025 3:21 PM EST I saw and evaluated the patient with the resident/fellow. I discussed the case with the resident/fellow and agree with the findings and plan as documented. documented in this encounter Plan of Treatment Upcoming Encounters Date Type Department Care Team (Late st Contact Info) Description 02/14/2025 1:00 PM EST Office Visit [facility] [address] [place] [address] Ashre Sinha MD [address] [facility] [address] [place] [phone] 03/27/2025 8:30 AM EST Consult [place] [facility] [address] [place] [address] Fransisco Farley MD [address] [place] [address] Pending Results Name Type Priority Associated Diagnoses Date /Time AFB Culture, Non Respiratory Source and Acid Fast Stain Microbiology Routine MRSA bacteremia 01/16/2025 4:14 PM EST Fungal Culture, Tissue and DEANDRE Microbiology Routine MRSA bacteremia 01/16/2025 4:14 PM EST Scheduled Orders Name Type Priority Associated Diagnoses Orde r Schedule CBC and Differential Lab Routine MRSA bacteremia 7 days for 4 Occurrences starting 01/23/2025 until 02/23/2025, 1 completed Comprehensive metabolic panel Lab Routine MRSA bacteremia 7 days for 4 Occurrences starting 01/23/2025 until 07/24/2026, 1 completed Vancomycin, random Lab Routine MRSA bacteremia 7 days for 4 Occurrences starting 01/23/2025 until 02/23/2025, 1 completed Scheduled Referrals Name Type Priority Associated Diagnoses Order Schedule Discharge Ambulatory referral to Neurosurgery Outpatient Referral Routine MRSA bacteremia Postoperative sepsis (CMS/HCC) [T81.44XA] Expected: 02/23/2025, Expires: 07/27/2026 Ambulatory referral to Infectious Disease Outpatient Referral Routine MRSA bacteremia Postoperative sepsis (CMS/HCC) [T81.44XA] Expected: 01/30/2025, Expires: 07/27/2026 documented as of this encounter Procedures Procedure Name Priority Date/Time Associated Diagnosis Comments POCT GLUCOSE METER UNSOLICITED RESULTS Routine 01/23/2025 8:18 AM EST POCT GLUCOSE METER UNSOLICITED RESULTS Routine 01/22/2025 8:20 PM EST POCT GLUCOSE METER UNSOLICITED RESULTS Routine 01/22/2025 5:05 PM EST POCT GLUCOSE METER UNSOLICITED RESULTS Routine 01/22/2025 11:53 AM EST POCT GLUCOSE METER UNSOLICITED RESULTS Routine 01/22/2025 7:51 AM EST VANCOMYCIN, PEAK, PLASMA Routine 01/22/2025 6:32 AM EST VANCOMYCIN, TROUGH, PLASMA Routine 01/22/2025 3:04 AM EST POCT GLUCOSE METER UNSOLICITED RESULTS Routine 01/21/2025 9:42 PM EST POCT GLUCOSE METER UNSOLICITED RESULTS Routine 01/21/2025 5:12 PM EST POCT GLUCOSE METER UNSOLICITED RESULTS Routine 01/21/2025 12:15 PM EST POCT GLUCOSE METER UNSOLICITED RESULTS Routine 01/21/2025 8:15 AM EST POCT GLUCOSE METER UNSOLICITED RESULTS Routine 01/20/2025 7:48 PM EST XR CHEST 1 VIEW STAT 01/20/2025 5:57 PM EST INSERT PICC LINE Routine 01/20/2025 5:08 PM EST POCT GLUCOSE METER UNSOLICITED RESULTS Routine 01/20/2025 5:05 PM EST POCT GLUCOSE METER UNSOLICITED RESULTS Routine 01/20/2025 11:57 AM EST SEND SARA MESSAGE Routine 01/20/2025 11 :02 AM EST URINALYSIS WITH REFLEX MICROSCOPIC AND CULTURE Routine 01/20/2025 11:02 AM EST URINE AVERY PANEL Routine 01/20/2025 11:0 2 AM EST URINALYSIS MICROSCOPIC FOR UA REFLEX Routine 01/20/2025 11:02 AM EST URINALYSIS WITH REFLEX MICROSCOPIC Routine 01/20/2025 11:02 AM EST URINE CULTURE Routine 01/20/2025 11:02 AM EST POCT GLUCOSE METER UNSOLICITED RESULTS Routine 01/20/2025 8:03 AM EST CREATINE KINASE, TOTAL, PLASMA Routine 01/20/2025 5:02 AM EST BASIC METABOLIC PANEL, PLASMA Routine 01/20/2025 5:02 AM EST POCT GLUCOSE METER UNSOLICITED RESULTS Routine 01/19/2025 8:10 PM EST POCT GLUCOSE METER UNSOLICITED RESULTS Routine 01/19/2025 5:32 PM EST POCT GLUCOSE METER UNSOLICITED RESULTS Routine 01/19/2025 12:21 PM EST POCT GLUCOSE METER UNSOLICITED RESULTS Routine 01/19/2025 8:18 AM EST PHOSPHORUS, PLASMA Routine 01/19/2025 6: 05 AM EST MAGNESIUM, PLASMA Routine 01/19/2025 6:0 5 AM EST VANCOMYCIN, PEAK, PLASMA Timed 01/19/2025 6:05 AM EST VANCOMYCIN, TROUGH, PLASMA Timed 01/19/2025 2:05 AM EST POCT GLUCOSE METER UNSOLICITED RESULTS Routine 01/18/2025 10:05 PM EST POCT GLUCOSE METER UNSOLICITED RESULTS Routine 01/18/2025 5:34 PM EST BLOOD CULTURE (AEROBIC/ANAEROBIC SET) Routine 01/18/2025 1:23 PM EST INSERT PERIPHERAL IV Routine 01/18/2025 12:54 PM EST POCT GLUCOSE METER UNSOLICITED RESULTS Routine 01/18/2025 12:00 PM EST POCT GLUCOSE METER UNSOLICITED RESULTS Routine 01/18/2025 8:25 AM EST HEPATITIS C ANTIBODY - ED W/REFLEX TO HCV QUANT PCR Routine 01/18/2025 4:56 AM EST CBC WITH AUTO DIFFERENTIAL Routine 01/18/2025 4:56 AM EST PHOSPHORUS, PLASMA Routine 01/18/2025 4: 56 AM EST MAGNESIUM, PLASMA Routine 01/18/2025 4:5 6 AM EST HEPATIC FUNCTION PANEL Routine 4:56 AM EST BASIC METABOLIC PANEL, PLASMA Routine 01/18/2025 4:56 AM EST POCT GLUCOSE METER UNSOLICITED RESULTS Routine 01/17/2025 9:24 PM EST HEPATITIS B SURFACE ANTIBODY, QUANTITATIVE Routine 01/17/2025 7:50 PM EST HC HEP B CORE AB TEST, IGM - HEPATITIS B CORE ANTIBODY, IGM Routine 01/17/2025 7:50 PM EST HC HEP B CORE AB TEST, TOTAL - HEPATITIS B CORE ANTIBODY, TOTAL Routine 01/17/2025 7:50 PM EST HC HBSAG Routine 01/17/2025 7:50 PM EST POCT GLUCOSE METER UNSOLICITED RESULTS Routine 01/17/2025 5:55 PM EST POCT GLUCOSE METER UNSOLICITED RESULTS Routine 01/17/2025 12:33 PM EST ECHO, ADULT TRANSTHORACIC COMPLETE Routine 01/17/2025 11:55 AM EST POCT GLUCOSE METER UNSOLICITED RESULTS Routine 01/17/2025 5:23 AM EST CBC WITH AUTO DIFFERENTIAL Routine 01/17/2025 2:31 AM EST PHOSPHORUS, PLASMA Routine 01/17/2025 2: 31 AM EST MAGNESIUM, PLASMA Routine 01/17/2025 2:3 1 AM EST BASIC METABOLIC PANEL, PLASMA Routine 01/17/2025 2:31 AM EST POCT GLUCOSE METER UNSOLICITED RESULTS Routine 01/17/2025 12:[address] LUMBAR SPINE W IV CONTRAST Routine 01/16/2025 8:00 PM EST US ABDOMEN RUQ Routine 01/16/2025 7:50 PM EST POCT GLUCOSE METER UNSOLICITED RESULTS Routine 01/16/2025 6:35 PM EST POCT GLUCOSE METER UNSOLICITED RESULTS Routine 01/16/2025 5:22 PM EST FL LESS THAN 1 HOUR (NON-REPORTABLE) Routine 01/16/2025 5:02 PM EST FUNGAL CULTURE, TISSUE AND DEANDRE Routine 01/16/2025 4:14 PM EST MRSA bacteremia AFB CULTURE, NON RESPIRATORY SOURCE AND ACID FAST STAIN Routine 01/16/2025 4:14 PM EST MRSA bacteremia ROUTINE CULTURE AND GRAM STAIN Routine 01/16/2025 4:14 PM EST MRSA bacteremia ANAEROBIC CULTURE Routine 01/16/2025 4:1 4 PM EST MRSA bacteremia ABSCESS CULTURE AND GRAM STAIN Routine 01/16/2025 4:05 PM EST MRSA bacteremia FUNGAL CULTURE, ROUTINE Routine 01/16/2025 4:05 PM EST ANAEROBIC CULTURE Routine 01/16/2025 4:0 5 PM EST MRSA bacteremia POCT GLUCOSE METER UNSOLICITED RESULTS Routine 01/16/2025 3:19 PM EST CA EXPLORE WOUND,ABDOMEN/FLANK/BA CK 01/16/2025 3:09 PM EST MRSA bacteremia Infection of spinal cord stimulator, initial encounter POCT GLUCOSE METER UNSOLICITED RESULTS Routine 01/16/2025 11:52 AM EST POCT GLUCOSE METER UNSOLICITED RESULTS Routine 01/16/2025 6:34 AM EST WOUND OSTOMY EVAL AND TREAT Routine 01/16/2025 5:09 AM EST URINALYSIS WITH REFLEX MICROSCOPIC Routine 01/16/2025 4:51 AM EST POCT GLUCOSE METER UNSOLICITED RESULTS Routine 01/16/2025 1:34 AM EST BLOOD CULTURE (AEROBIC/ANAEROBIC SET) Routine 01/16/2025 1:28 AM EST PROCALCITONIN, PLASMA Add-On 01/16/2025 12:36 AM EST APTT Routine 01/16/2025 12:36 AM EST SEDIMENTATION RATE, AUTOMATED Routine 01/16/2025 12:36 AM EST PROTHROMBIN TIME(PT) / INR Routine 01/16/2025 12:36 AM EST CBC WITH AUTO DIFFERENTIAL Routine 01/16/2025 12:36 AM EST TYPE AND SCREEN Routine 01/16/2025 12:36 AM EST C-REACTIVE PROTEIN, PLASMA Routine 01/16/2025 12:36 AM EST PHOSPHORUS, PLASMA Add-On 01/16/2025 12 :36 AM EST MAGNESIUM, PLASMA Add-On 01/16/2025 12: 36 AM EST HEMOGLOBIN A1C Add-On 01/16/2025 12:36 AM EST COMPREHENSIVE METABOLIC PANEL, PLASMA STAT 01/16/2025 12:36 AM EST documented in this encounter Results * Vancomycin, random (01/31/2025 12:57 PM EST) Vancomycin, Random, Plasma 14.9 ug/mL 01/31/2025 2:32 PM EST [facility] Blood Venous blood specimen / Unknown Venipuncture / Unknown 01/31/2025 12:57 PM EST 01/31/2025 1:01 PM EST us Merlin Massey MD LAB BLOOD ORDERABLES Final Resul t [facility] [address] [place] [address] * (ABNORMAL) Comprehensive metabolic panel (01/31/2025 12:57 PM EST) Glucose, Plasma 177(H) 74 - 99 mg/dL 01/31/2025 2:32 PM EST [facility] BUN, Plasma 19 8 - 23 mg/dL 01/31/2025 2:32 PM EST [facility] Creatinine, Plasma 1.15(H) 0.60 - 1.10 mg/dL 01/31/2025 2:32 PM EST [facility] BUN/Creatinine Ratio 17 01/31/2025 2:32 PM EST [facility] Sodium, Plasma 138 136 - 145 mmol/L 01/31/2025 2:32 PM EST [facility] Potassium, Plasma 4.1 3.6 - 4.9 mmol/L 01/31/2025 2:32 PM EST [facility] Chloride, Plasma 98 97 - 107 mmol/L 01/31/2025 2:32 PM EST [facility] CO2, Plasma 27 22 - 29 mmol/L 01/31/2025 2:32 PM EST [facility] Anion Gap 13 6 - 16 mmol/L 01/31/2025 2:32 PM EST [facility] Total Calcium, Plasma 9.4 8.9 - 10.2 mg/dL 01/31/2025 2:32 PM EST [facility] Total Protein 6.9 6.3 - 7.9 g/dL 01/31/2025 2:32 PM EST [facility] Albumin, Plasma 3.8 3.5 - 5.2 g/dL 01/31/2025 2:32 PM EST [facility] AST, Plasma 29 10 - 35 U/L 01/31/2025 2:32 PM EST [facility] ALT, Plasma 24 10 - 35 U/L 01/31/2025 2:32 PM EST [facility] Alkaline Phosphatase, Plasma 121 46 - 142 U/L 01/31/2025 2:32 PM EST [facility] Total Bilirubin, Plasma 0.2 0.2 - 1.1 mg/dL 01/31/2025 2:32 PM EST [facility] eGFRcr 50.1 mL/min/1.7 3m*2 01/31/2025 2:32 PM EST [facility] Comment:Reported eGFRcr in m L/min/1.73m2 is based the CKD-EPI 2020 equation that does not use a race coefficient. Blood Venous blood specimen / Unknown Venipuncture / Unknown 01/31/2025 12:57 PM EST 01/31/2025 1:01 PM EST us Merlin Massey MD LAB BLOOD ORDERABLES Final Resul t [facility] [address] [place] [address] * (ABNORMAL) CBC and Differential (01/31/2025 12:57 PM EST) WBC Count 5.78 3.70 - 10.30 10*3/uL LAB HEMATOLOGY METHOD 01/31/2025 2:26 PM EST [facility] RBC Count 3.46(L) 3.90 - 5.20 10*6/uL LAB HEMATOLOGY METHOD 01/31/2025 2:26 PM EST [facility] HGB 10.8(L) 11.2 - 15.7 g/dL LAB HEMATOLOGY METHOD 01/31/2025 2:26 PM [facility] HCT 34.3 34.0 - 45.0 % LAB HEMATOLOGY METHOD 01/31/2025 2:26 PM [facility] Platelet Count 313 155 - 369 10*3/uL LAB HEMATOLOGY METHOD 01/31/2025 2:26 PM [facility] MCV 99(H) 79 - 98 fL LAB HEMATOLOGY METHOD 01/31/2025 2:26 PM [facility] MCH 31.2 26.0 - 32.0 pg LAB HEMATOLOGY METHOD 01/31/2025 2:26 PM [facility] MCHC 31.5 30.7 - 35.5 g/dL LAB HEMATOLOGY METHOD 01/31/2025 2:26 PM [facility] RDW 14.6(H) 11.5 - 14.5 % LAB HEMATOLOGY METHOD 01/31/2025 2:26 PM [facility] MPV 9.8 8.8 - 12.5 fL LAB HEMATOLOGY METHOD 01/31/2025 2:26 PM [facility] nRBC 0.0 <=0.0 per 100 WBCs LAB HEMATOLOGY METHOD 01/31/2025 2:26 PM [facility] Differential Type Automated LAB HEMATOLOGY METHOD 01/31/2025 2:26 PM [facility] Neutrophils % 58 % LAB HEMATOLOGY METHOD 01/31/2025 2:26 PM [facility] Lymphocytes % 23 % LAB HEMATOLOGY METHOD 01/31/2025 2:26 PM [facility] Monocytes % 12 % LAB HEMATOLOGY METHOD 01/31/2025 2:26 PM [facility] Eosinophils % 6 % LAB HEMATOLOGY METHOD 01/31/2025 2:26 PM [facility] Basophils % 1 % LAB HEMATOLOGY METHOD 01/31/2025 2:26 PM [facility] Immature Granulocytes % 0 % LAB HEMATOLOGY METHOD 01/31/2025 2:26 PM [facility] Neutrophils Absolute 3.37 1.60 - 6.10 10*3/uL LAB HEMATOLOGY METHOD 01/31/2025 2:26 PM [facility] Lymphocytes Absolute 1.33 1.20 - 3.90 10*3/uL LAB HEMATOLOGY METHOD 01/31/2025 2:26 PM EST [facility] Monocytes Absolute 0.71 0.30 - 0.90 10*3/uL LAB HEMATOLOGY METHOD 01/31/2025 2:26 PM EST [facility] Eosinophils Absolute 0.32 0.00 - 0.50 10*3/uL LAB HEMATOLOGY METHOD 01/31/2025 2:26 PM EST [facility] Basophils Absolute 0.04 0.00 - 0.10 10*3/uL LAB HEMATOLOGY METHOD 01/31/2025 2:26 PM EST [facility] Immature Granulocytes Absolute 0.01 0.00 - 0.06 10*3/uL LAB HEMATOLOGY METHOD 01/31/2025 2:26 PM EST [facility] Blood Venous blood specimen / Unknown Venipuncture / Unknown 01/31/2025 12:57 PM EST 01/31/2025 1:01 PM EST Narrative [facility] - 01/31/2025 2:26 PM EST Therapeutic decision making should be based on absolute values, rather than percentages. us Merlin Massey MD LAB BLOOD ORDERABLES Final Resul t [facility] [address] [place] [address] * (ABNORMAL) POCT glucose meter (01/23/2025 8:18 AM EST) POCT Glucose 147(H) 74 - 99 mg/dL 01/23/2025 8:20 AM EST [facility] Comment:Accuracy of a glucos e result obtained from a capillary whole blood specimen relies upon adequate, non-compromised capillary blood flow. If the capillary glucose result is not consistent with the patient's clinical signs and symptoms, glucose testing should be repeated with either an arterial or venous sample on the glucometer or sent to the main labortory for testing. Comment 01/23/2025 8:20 AM EST [facility] Agricultural Equipment Sales Engineer ID Benji Gilbert 01/23/2025 8:20 AM EST [facility] Device ID [id number] 01/23/2025 8:20 AM EST [facility] Specimen Type POC Capillary 01/23/2025 8:20 AM EST [facility] Blood Capillary blood specimen / Unknown 01/23/2025 8:18 AM EST 01/23/2025 8:20 AM EST us Merlin Massey MD LAB POINT OF CARE TE ST DOCKED DEVICE UNSOLICITED RESULTS Final Result Performing Organization Address [facility] Co de Phone Number [facility] [address] [place] [address] * (ABNORMAL) POCT glucose meter (01/22/2025 8:20 PM EST) POCT Glucose 230(H) 74 - 99 mg/dL 01/22/2025 8:26 PM EST [facility] Comment:Accuracy of a glucos e result obtained from a capillary whole blood specimen relies upon adequate, non-compromised capillary blood flow. If the capillary glucose result is not consistent with the patient's clinical signs and symptoms, glucose testing should be repeated with either an arterial or venous sample on the glucometer or sent to the main labortory for testing. Comment 01/22/2025 8:26 PM EST [facility] Agricultural Equipment Sales Engineer ID Felisa Sarmiento [id number] 8:26 PM EST [facility] Device ID [id number] 01/22/2025 8:26 PM EST [facility] Specimen Type POC Capillary 01/22/2025 8:26 PM EST [facility] Blood Capillary blood specimen / Unknown 01/22/2025 8:20 PM EST 01/22/2025 8:26 PM EST us Cleve Deleon MD LAB POINT OF CARE TE ST DOCKED DEVICE UNSOLICITED RESULTS Final Result Performing Organization Address [facility] Co de Phone Number [facility] [address] [place] [address] * (ABNORMAL) POCT glucose meter (01/22/2025 5:05 PM EST) POCT Glucose 188(H) 74 - 99 mg/dL 01/22/2025 5:06 PM EST [facility] Comment:Accuracy of a glucos e result obtained from a capillary whole blood specimen relies upon adequate, non-compromised capillary blood flow. If the capillary glucose result is not consistent with the patient's clinical signs and symptoms, glucose testing should be repeated with either an arterial or venous sample on the glucometer or sent to the main labortory for testing. Comment 01/22/2025 5:06 PM EST [facility] Agricultural Equipment Sales Engineer ID Jayy Travis 01/23/20 5:06 PM EST [facility] Device ID [id number] 01/22/2025 5:06 PM EST [facility] Specimen Type POC Capillary 01/22/2025 5:06 PM EST [facility] Blood Capillary blood specimen / Unknown 01/22/2025 5:05 PM EST 01/22/2025 5:06 PM EST us Cleve Deleon MD LAB POINT OF CARE TE ST DOCKED DEVICE UNSOLICITED RESULTS Final Result Performing Organization Address [facility] [facility] Co de Phone Number [facility] [address] [place] [address] * (ABNORMAL) POCT glucose meter (01/22/2025 11:53 AM EST) POCT Glucose 229(H) 74 - 99 mg/dL 01/22/2025 11:55 AM EST [facility] Comment:Accuracy of a glucos e result obtained from a capillary whole blood specimen relies upon adequate, non-compromised capillary blood flow. If the capillary glucose result is not consistent with the patient's clinical signs and symptoms, glucose testing should be repeated with either an arterial or venous sample on the glucometer or sent to the main labortory for testing. Comment 01/22/2025 11:55 AM EST [facility] Agricultural Equipment Sales Engineer ID Jayy Travis 01/23/20 11:55 AM EST [facility] Device ID [id number] 01/22/2025 11:55 AM EST [facility] Specimen Type POC Capillary 01/22/2025 11:55 AM EST [facility] Blood Capillary blood specimen / Unknown 01/22/2025 11:53 AM EST 01/22/2025 11:55 AM EST us Cleve Deleon MD LAB POINT OF CARE TE ST DOCKED DEVICE UNSOLICITED RESULTS Final Result Performing Organization Address City/[facility] Co de Phone Number [facility] [address] [place] [address] * (ABNORMAL) POCT glucose meter (01/22/2025 7:51 AM EST) POCT Glucose 141(H) 74 - 99 mg/dL 01/22/2025 7:52 AM EST [facility] Comment:Accuracy of a glucos e result obtained from a capillary whole blood specimen relies upon adequate, non-compromised capillary blood flow. If the capillary glucose result is not consistent with the patient's clinical signs and symptoms, glucose testing should be repeated with either an arterial or venous sample on the glucometer or sent to the main labortory for testing. Comment 01/22/2025 7:52 AM EST [facility] Agricultural Equipment Sales Engineer ID Jayy Travis 01/23/20 7:52 AM EST [facility] Device ID [id number] 01/22/2025 7:52 AM EST [facility] Specimen Type POC Capillary 01/22/2025 7:52 AM EST [facility] Blood Capillary blood specimen / Unknown 01/22/2025 7:51 AM EST 01/22/2025 7:52 AM EST Cleve Deleon MD LAB POINT OF CARE TE ST DOCKED DEVICE UNSOLICITED RESULTS Final Result [facility] [address] [place] [address] * Vancomycin, Peak, Plasma Please draw ~2 hours after 0300 dose on 01/22 finishes infusing. Consider obtaining level via peripheral stick. If peripheral stick is not feasible, please ensure that line is flushed well prior to drawing level. Thanks! (01/22/2025 6:32 AM EST) Vancomycin, Peak, Plasma 29.1 20.0 - 40.0 ug/mL 01/22/2025 7:07 AM EST [facility] Blood Venous blood specimen / Unknown Venipuncture / Unknown 01/22/2025 6:32 AM EST 01/22/2025 6:37 AM EST Narrative [facility] - 01/22/2025 7:07 AM EST Therapeutic Peak level: 20-40ug/mL Supra-therapeutic Peak level: >40 ug/mL us Cleve Deleon MD LAB BLOOD ORDERABLES Final Re sult Performing Organization Address [facility] Co de Phone Number [facility] [address] [place] [address] * Vancomycin, Trough, Plasma Please draw ~30 minutes prior to dose due at 0300 on 01/22. ??Please do NOT hold dose awaiting level to return. Consider obtaining level via peripheral stick. If peripheralstick is not feasible, please ensure that line/p... (01/22/2025 3:04 AM EST) [facility] Vancomycin, Trough, Plasma 13.7 10.0 - 20.0 ug/mL 01/22/2025 3:[address] [facility] Blood Venous blood specimen / Unknown Venipuncture / Unknown 01/22/2025 3:04 AM EST 01/22/2025 3:15 AM EST Narrative [facility] - 01/22/2025 3:45 AM EST Therapeutic Trough level: 10-20ug/mL Supra-therapeutic Trough level: >20 ug/mL us Cleve Deleon MD LAB BLOOD ORDERABLES Final Re sult Performing Organization Address [facility] [place] [address] * (ABNORMAL) POCT glucose meter (01/21/2025 9:42 PM EST) [facility] POCT Glucose 186(H) 74 - 99 mg/dL 01/21/2025 9:43 PM EST [facility] Comment:Accuracy of a glucos e result obtained from a capillary whole blood specimen relies upon adequate, non-compromised capillary blood flow. If the capillary glucose result is not consistent with the patient's clinical signs and symptoms, glucose testing should be repeated with either an arterial or venous sample on the glucometer or sent to the main labortory for testing. Comment 01/21/2025 9:43 PM EST [facility] Agricultural Equipment Sales Engineer ID Alice Garber Juan 01/21/2025 9:43 PM EST [facility] Device ID [id number] 01/21/2025 9:43 PM EST [facility] Specimen Type POC Capillary 01/21/2025 9:43 PM EST [facility] Blood Capillary blood specimen / Unknown 01/21/2025 9:42 PM EST 01/21/2025 9:43 PM EST us Cleve Deleon MD LAB POINT OF CARE TE ST DOCKED DEVICE UNSOLICITED RESULTS Final Result Performing Organization Address City/[facility] Co de Phone Number [facility] [address] [place] [address] * (ABNORMAL) POCT glucose meter (01/21/2025 5:12 PM EST) POCT Glucose 214(H) 74 - 99 mg/dL 01/21/2025 5:14 PM EST [facility] Comment:Accuracy of a glucos e result obtained from a capillary whole blood specimen relies upon adequate, non-compromised capillary blood flow. If the capillary glucose result is not consistent with the patient's clinical signs and symptoms, glucose testing should be repeated with either an arterial or venous sample on the glucometer or sent to the main labortory for testing. Comment 01/21/2025 5:14 PM EST [facility] Agricultural Equipment Sales Engineer ID Garrett Tabradford 01/21/2025 5:14 PM EST [facility] Device ID [id number] 01/21/2025 5:14 PM EST [facility] Specimen Type POC Capillary 01/21/2025 5:14 PM EST [facility] Blood Capillary blood specimen / Unknown 01/21/2025 5:12 PM EST 01/21/2025 5:14 PM EST us Cleve Deleon MD LAB POINT OF CARE TE ST DOCKED DEVICE UNSOLICITED RESULTS Final Result Performing Organization Address City/[facility] Co de Phone Number [facility] [address] [place] [address] * (ABNORMAL) POCT glucose meter (01/21/2025 12:15 PM EST) POCT Glucose 186(H) 74 - 99 mg/dL 01/21/2025 12:20 PM EST [facility] Comment:Accuracy of a glucos e result obtained from a capillary whole blood specimen relies upon adequate, non-compromised capillary blood flow. If the capillary glucose result is not consistent with the patient's clinical signs and symptoms, glucose testing should be repeated with either an arterial or venous sample on the glucometer or sent to the main labortory for testing. Comment 01/21/2025 12:20 PM EST [facility] Agricultural Equipment Sales Engineer ID Alysa Quinn 01/21/2025 12:20 PM EST [facility] Device ID [id number] 01/21/2025 12:20 PM EST [facility] Specimen Type POC Capillary 01/21/2025 12:20 PM EST [facility] Blood Capillary blood specimen / Unknown 01/21/2025 12:15 PM EST 01/21/2025 12:20 PM EST us Cleve Deleon MD LAB POINT OF CARE TE ST DOCKED DEVICE UNSOLICITED RESULTS Final Result Performing Organization Address City/State/[facility] Co de Phone Number [facility] [address] [place] [address] * (ABNORMAL) POCT glucose meter (01/21/2025 8:15 AM EST) POCT Glucose 134(H) 74 - 99 mg/dL 01/21/2025 8:19 AM EST [facility] Comment:Accuracy of a glucos e result obtained from a capillary whole blood specimen relies upon adequate, non-compromised capillary blood flow. If the capillary glucose result is not consistent with the patient's clinical signs and symptoms, glucose testing should be repeated with either an arterial or venous sample on the glucometer or sent to the main labortory for testing. Comment 01/21/2025 8:19 AM EST [facility] Agricultural Equipment Sales Engineer ID Alysa Quinn 01/21/2025 8:19 AM EST [facility] Device ID [id number] 01/21/2025 8:19 AM EST [facility] Specimen Type POC Capillary 01/21/2025 8:19 AM EST [facility] Blood Capillary blood specimen / Unknown 01/21/2025 8:15 AM EST 01/21/2025 8:19 AM EST us Cleve Deleon MD LAB POINT OF CARE TE ST DOCKED DEVICE UNSOLICITED RESULTS Final Result Performing Organization Address [facility] Co de Phone Number [facility] [address] [place] [address] * (ABNORMAL) POCT glucose meter (01/20/2025 7:48 PM EST) POCT Glucose 188(H) 74 - 99 mg/dL 01/20/2025 7:49 PM EST [facility] Comment:Accuracy of a glucos e result obtained from a capillary whole blood specimen relies upon adequate, non-compromised capillary blood flow. If the capillary glucose result is not consistent with the patient's clinical signs and symptoms, glucose testing should be repeated with either an arterial or venous sample on the glucometer or sent to the main labortory for testing. Comment 01/20/2025 7:49 PM EST [facility] Agricultural Equipment Sales Engineer ID Silva Coates 025 7:49 PM EST [facility] Device ID [id number] 01/20/2025 7:49 PM EST [facility] Specimen Type POC Capillary 01/20/2025 7:49 PM EST [facility] Blood Capillary blood specimen / Unknown 01/20/2025 7:48 PM EST 01/20/2025 7:49 PM EST Cleve Deleon MD LAB POINT OF CARE TE ST DOCKED DEVICE UNSOLICITED RESULTS Final Result Performing Organization Address City/[facility] de Phone Number [facility] [address] [place] [address] * XR Chest 1 View (01/20/2025 5:57 PM EST) Anatomical Region Laterality Modality Chest Digital Radiogra phy Impressions 01/20/2025 6:08 PM EST Right PICC tip in the distal SVC. No pneumothorax. Small pleural effusions and basilar atelectasis. CRITICAL RESULT: No. COMMUNICATION: Per this written report. Drafted by Johana Coyne MD on 01/20/2025 6:06 PM Final report signed by Johana Coyne MD on 01/20/2025 6:08 PM Narrative 01/20/2025 6:08 PM EST CLINICAL INDICATION: Verify PICC placement TECHNIQUE: XR CHEST 1 VIEW COMPARISON: January 14, 2025 FINDINGS: Right upper extremity PICC tip in the distal SVC. Interval removal of left PICC. Spinal stimulator leads are no longer visualized. Small pleural effusions with basilar atelectasis. No pneumothorax. Cardiac silhouette is within normal limits. Procedure Note Johana Coyne MD - 01/20/2025 CLINICAL INDICATION: Verify PICC placement TECHNIQUE: XR CHEST 1 VIEW COMPARISON: January 14, 2025 FINDINGS: Right upper extremity PICC tip in the distal SVC. Interval removal of leftPICC. Spinal stimulator leads are no longer visualized. Small pleuraleffusions with basilar atelectasis. No pneumothorax. Cardiac silhouette iswithin normal limits. IMPRESSION: Right PICC tip in the distal SVC. No pneumothorax. Small pleural effusions and basilar atelectasis. CRITICAL RESULT: No. COMMUNICATION: Per this written report. Drafted by Johana Coyne MD on 01/20/2025 6:06 PM Final report signed by Johana Coyne MD on 01/20/2025 6:08 PM us Cleve Deleon MD IMG XR PROCEDURES Final Resul t * PICC SINGLE LUMEN (SMARTFORM LINK) (01/20/2025 5:08 PM EST) Narrative Cailin Ha RN - 01/20/2025 5:08 PM EST Cialin Ha RN 01/20/2025 6:04 PM Insert PICC line Date/Time: 01/20/2025 5:08 PM Performed by: Cailin Ha RN Authorized by: Cleve Deleon MD [place] Protocol: Verbal consent obtained?: Yes Written consent obtained?: Yes Risks and benefits: Risks, benefits and alternatives were discussed Consent given by: Patient Patient states understanding of procedure being performed: Yes Patient's understanding of procedure matches consent: Yes Procedure consent matches procedure scheduled: Yes Relevant documents present and verified: Yes Test results available and properly labeled: Yes Site marked: Yes Imaging studies available: Yes Patient identity confirmed: Verbally with patient, hospital-assigned identification number and arm band Time out: Immediately prior to the procedure a time out was called Indications: Vascular access Local anesthetic: Lidocaine 2% without epinephrine Sedation: Patient sedated: No Preparation: Skin prepped with 2% chlorhexidine Skin prep agent dried: Skin prep agent completely dried prior to procedure Sterile barriers: All five maximal sterile barriers used - gloves, gown, cap, mask and large sterile sheet Hand hygiene: Hand hygiene performed prior to catheter insertion Orientation: Right Location (Adult): Basilic vein Site selection rationale: Pt preference. 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[employer] Catheter placed: Single lumen Catheter size: 4 Fr Catheter trimmed length: 42 Catheter threaded length: 40 Vein placed in: SVC Catheter cm indwellin Catheter cm outside: 2 Placement confirmed by: X-ray Pre-procedure: Landmarks identified Ultrasound guidance: Yes Sterile ultrasound techniques: Sterile gel and sterile probe covers were used Number of attempts: 2 Post-procedure: Adhesive securement device and sterile access caps placed on each lumen Dressing applied: CHG tegaderm Assessment: Blood return through all ports and free fluid flow Patient tolerated the procedure well with no immediate complications.: Yes PICC kit educational material was given to the patient.: Yes Comments: Images uploaded to PACS. Spiked P wave noted on internal 3cg, however due to external EKG not showing P wave, xray ordered to confirm placement. Accessing vein was difficult on this pt. Basilic vein was 3cm deep. 2 attempts at accessing vein. Second attempt was proximal to first attempt. us Cleve Deleon MD IV THERAPY ORDERABLES Final R esult * (ABNORMAL) POCT glucose meter (01/20/2025 5:05 PM EST) POCT Glucose 202(H) 74 - 99 mg/dL 01/20/2025 5:06 PM EST [facility] Comment:Accuracy of a glucos e result obtained from a capillary whole blood specimen relies upon adequate, non-compromised capillary blood flow. If the capillary glucose result is not consistent with the patient's clinical signs and symptoms, glucose testing should be repeated with either an arterial or venous sample on the glucometer or sent to the main labortory for testing. Comment 01/20/2025 5:06 PM EST [facility] Agricultural Equipment Sales Engineer ID KatieAbdoula 01/20/2025 5:06 PM EST [facility] Device ID [id number] 01/20/2025 5:06 PM EST [facility] Specimen Type POC Capillary 01/20/2025 5:06 PM EST [facility] Blood Capillary blood specimen / Unknown 01/20/2025 5:05 PM EST 01/20/2025 5:06 PM EST Cleve Deleon MD LAB POINT OF CARE TE ST DOCKED DEVICE UNSOLICITED RESULTS Final Result Performing Organization Address City/[facility] Co de Phone Number [facility] [address] [place] [address] * (ABNORMAL) POCT glucose meter (01/20/2025 11:57 AM EST) POCT Glucose 228(H) 74 - 99 mg/dL 01/20/2025 11:59 AM EST [facility] Comment:Accuracy of a glucos e result obtained from a capillary whole blood specimen relies upon adequate, non-compromised capillary blood flow. If the capillary glucose result is not consistent with the patient's clinical signs and symptoms, glucose testing should be repeated with either an arterial or venous sample on the glucometer or sent to the main labortory for testing. Comment 01/20/2025 11:59 AM EST [facility] Agricultural Equipment Sales Engineer ID KatieJane og 01/20/2025 11:59 AM EST [facility] Device ID [id number] 01/20/2025 11:59 AM EST [facility] Specimen Type POC Capillary 01/20/2025 11:59 AM EST [facility] Blood Capillary blood specimen / Unknown 01/20/2025 11:57 AM EST 01/20/2025 11:59 AM EST Cleve Deleon MD LAB POINT OF CARE TE ST DOCKED DEVICE UNSOLICITED RESULTS Final Result Performing Organization Address City/[facility]/ZIP Co de Phone Number [facility] [address] [place] [address] * SEND SARA MESSAGE (01/20/2025 11:02 AM EST) Urine Urine specimen obtained by clean catch procedure / Unknown Non-blood Collection / Unknown 01/20/2025 11:02 AM EST 01/20/2025 11:06 AM EST us Cleve Deleon MD LAB URINE ORDERABLES Final Re sult Performing Organization Address [facility] Co de Phone Number [facility] [address] [place] [address] * (ABNORMAL) Urine Culture (01/20/2025 11:02 AM EST) Culture 10,000 - 100,000 CFU/mL Trista albicans(A) 01/22/2025 7:50 AM EST [facility] Comment:This isolate has bee n identified using the FDA Approved CEINT System Urine Urine specimen obtained by clean catch procedure / Unknown Non-blood Collection / Unknown 01/20/2025 11:02 AM EST 01/20/2025 11:06 AM EST us Cleve Deleon MD LAB MICROBIOLOGY - GENERAL OR DERABLES Final Result Performing Organization Address [facility] Co de Phone Number [facility] [address] [place] [address] * Urinalysis Microscopic Examination (01/20/2025 11:02 AM EST) Urine Urine specimen obtained by clean catch procedure / Unknown Non-blood Collection / Unknown 01/20/2025 11:02 AM EST 01/20/2025 11:06 AM EST us Cleve Deleon MD LAB URINE ORDERABLES Final Re sult Performing Organization Address [facility] Co de Phone Number [facility] [address] [place] [address] * Urine Avery Panel (01/20/2025 11:02 AM EST) Extra Sent for Culture 01/20/2025 1:02 PM EST [facility] Urine Urine specimen obtained by clean catch procedure / Unknown Non-blood Collection / Unknown 01/20/2025 11:02 AM EST 01/20/2025 11:06 AM EST us Cleve Deleon MD LAB URINE ORDERABLES Final Re sult Performing Organization Address City/[facility]/ZIP Co de Phone Number [facility] [address] [place] [address] * (ABNORMAL) Urinalysis with reflex microscopic (Culture NOT Included) (01/20/2025 11:02 AM EST) Color, Urine Yellow LAB URINALYSIS - AUTOMATED METHOD 01/20/2025 11:24 AM [facility] Clarity, Urine Cloudy LAB URINALYSIS - AUTOMATED METHOD 01/20/2025 11:24 AM [facility] Spec [place], Urine 1.017 1.005 - 1.030 LAB URINALYSIS - AUTOMATED METHOD 01/20/2025 11:24 AM [facility] pH, Urine 6.5 5.0 - 8.0 LAB URINALYSIS - AUTOMATED METHOD 01/20/2025 11:24 AM [facility] Protein, Urine Trace(A) Negative mg/dL LAB URINALYSIS - AUTOMATED METHOD 01/20/2025 11:24 AM [facility] Glucose, Urine >=1000(A) Negative mg/dL LAB URINALYSIS - AUTOMATED METHOD 01/20/2025 11:24 AM [facility] Ketones, Urine Negative Negative mg/dL LAB URINALYSIS - AUTOMATED METHOD 01/20/2025 11:24 AM [facility] Blood, Urine Trace(A) Negative LAB URINALYSIS - AUTOMATED METHOD 01/20/2025 11:24 AM [facility] Bilirubin, Urine Negative Negative LAB URINALYSIS - AUTOMATED METHOD 01/20/2025 11:24 AM [facility] Urobilinogen, Urine 0.2 0.2 to 1.0 mg/dL LAB URINALYSIS - AUTOMATED METHOD 01/20/2025 11:24 AM [facility] Leukocytes, Urine Small(A) Negative LAB URINALYSIS - AUTOMATED METHOD 01/20/2025 11:24 AM [facility] Nitrite, Urine Negative Negative LAB URINALYSIS - AUTOMATED METHOD 01/20/2025 11:24 AM [facility] RBC, Urine 2 0 to 3 /HPF LAB URINALYSIS - AUTOMATED METHOD 01/20/2025 11:24 AM [facility] WBC, Urine >50(A) 0 to 5 /HPF LAB URINALYSIS - AUTOMATED METHOD 01/20/2025 11:24 AM EST [facility] Squamous Epithelial Cells 0 - 2 0 to 5 /HPF LAB URINALYSIS - AUTOMATED METHOD 01/20/2025 11:24 AM EST [facility] Hyaline Casts 3 - 5 0 to 5 /LPF LAB URINALYSIS - AUTOMATED METHOD 01/20/2025 11:24 AM EST [facility] Bacteria, Urine Negative Negative LAB URINALYSIS - AUTOMATED METHOD 01/20/2025 11:24 AM EST [facility] Yeast (Budding and/or Pseudohyphae) Present(A) Absent LAB URINALYSIS - AUTOMATED METHOD 01/20/2025 11:24 AM EST [facility] Urine Urine specimen obtained by clean catch procedure / Unknown Non-blood Collection / Unknown 01/20/2025 11:02 AM EST 01/20/2025 11:06 AM EST us Cleve Deleon MD LAB URINE ORDERABLES Final Re sult [facility] [address] [place] [address] * (ABNORMAL) POCT glucose meter (01/20/2025 8:03 AM EST) POCT Glucose 139(H) 74 - 99 mg/dL 01/20/2025 8:05 AM EST [facility] Comment:Accuracy of a glucos e result obtained from a capillary whole blood specimen relies upon adequate, non-compromised capillary blood flow. If the capillary glucose result is not consistent with the patient's clinical signs and symptoms, glucose testing should be repeated with either an arterial or venous sample on the glucometer or sent to the main labortory for testing. Comment 01/20/2025 8:05 AM EST [facility] Agricultural Equipment Sales Engineer ID KatieJane og 01/20/2025 8:05 AM EST [facility] Device ID [id number] 01/20/2025 8:05 AM EST [facility] Specimen Type POC Capillary 01/20/2025 8:05 AM EST [facility] Blood Capillary blood specimen / Unknown 01/20/2025 8:03 AM EST 01/20/2025 8:05 AM EST us Cleve Deleon MD LAB POINT OF CARE TE ST DOCKED DEVICE UNSOLICITED RESULTS Final Result [facility] [address] [place] [address] * (ABNORMAL) Creatine Kinase (CK), Total (01/20/2025 5:02 AM EST) Creatine Kinase, Plasma 290(H) 37 - 168 U/L 01/20/2025 5:37 AM EST [facility] Blood Venous blood specimen / Unknown Venipuncture / Unknown 01/20/2025 5:02 AM EST 01/20/2025 5:07 AM EST us Cleve Deleon MD LAB BLOOD ORDERABLES Final Re sult Performing Organization Address City/[facility]/ZIP Co de Phone Number [facility] [address] [place] [address] * (ABNORMAL) Basic metabolic panel (01/20/2025 5:02 AM EST) Glucose, Plasma 151(H) 74 - 99 mg/dL 01/20/2025 5:37 AM EST [facility] BUN, Plasma 12 8 - 23 mg/dL 01/20/2025 5:37 AM EST [facility] Creatinine, Plasma 0.79 0.60 - 1.10 mg/dL 01/20/2025 5:37 AM EST [facility] BUN/Creatinine Ratio 15 01/20/2025 5:37 AM EST [facility] Sodium, Plasma 139 136 - 145 mmol/L 01/20/2025 5:37 AM EST [facility] Potassium, Plasma 3.6 3.6 - 4.9 mmol/L 01/20/2025 5:37 AM EST [facility] Chloride, Plasma 102 97 - 107 mmol/L 01/20/2025 5:37 AM EST [facility] CO2, Plasma 28 22 - 29 mmol/L 01/20/2025 5:37 AM EST [facility] Anion Gap 9 6 - 16 mmol/L 01/20/2025 5:37 AM EST [facility] Total Calcium, Plasma 8.2(L) 8.9 - 10.2 mg/dL 01/20/2025 5:37 AM EST [facility] eGFRcr 78.6 mL/min/1.7 3m*2 01/20/2025 5:37 AM EST [facility] Comment:Reported eGFRcr in m L/min/1.73m2 is based the CKD-EPI 2020 equation that does not use a race coefficient. Blood Venous blood specimen / Unknown Venipuncture / Unknown 01/20/2025 5:02 AM EST 01/20/2025 5:07 AM EST us Cleve Deleon MD LAB BLOOD ORDERABLES Final Re sult Performing Organization Address [facility] Co de Phone Number [facility] [address] [place] [phone] * (ABNORMAL) POCT glucose meter (01/19/2025 8:10 PM EST) POCT Glucose 213(H) 74 - 99 mg/dL 01/19/2025 8:12 PM EST [facility] Comment:Accuracy of a glucos e result obtained from a capillary whole blood specimen relies upon adequate, non-compromised capillary blood flow. If the capillary glucose result is not consistent with the patient's clinical signs and symptoms, glucose testing should be repeated with either an arterial or venous sample on the glucometer or sent to the main labortory for testing. Comment 01/19/2025 8:12 PM EST [facility] Agricultural Equipment Sales Engineer ID Silva Coates [id number] 8:12 PM EST [facility] Device ID [id number] 01/19/2025 8:12 PM EST [facility] Specimen Type POC Capillary 01/19/2025 8:12 PM EST [facility] Blood Capillary blood specimen / Unknown 01/19/2025 8:10 PM EST 01/19/2025 8:12 PM EST us Cleve Deleon MD LAB POINT OF CARE TE ST DOCKED DEVICE UNSOLICITED RESULTS Final Result Performing Organization Address City/[facility] Co de Phone Number [facility] [address] [place] [address] * (ABNORMAL) POCT glucose meter (01/19/2025 5:32 PM EST) [facility] POCT Glucose 197(H) 74 - 99 mg/dL 01/19/2025 5:33 PM EST [facility] Comment:Accuracy of a glucos e result obtained from a capillary whole blood specimen relies upon adequate, non-compromised capillary blood flow. If the capillary glucose result is not consistent with the patient's clinical signs and symptoms, glucose testing should be repeated with either an arterial or venous sample on the glucometer or sent to the main labortory for testing. Comment 01/19/2025 5:33 PM EST [facility] Agricultural Equipment Sales Engineer ID Aleyda Haley 01/19/2025 5:33 PM EST [facility] Device ID [id number] 01/19/2025 5:33 PM EST [facility] Specimen Type POC Capillary 01/19/2025 5:33 PM EST [facility] Blood Capillary blood specimen / Unknown 01/19/2025 5:32 PM EST 01/19/2025 5:33 PM EST Cleve Deleon MD LAB POINT OF CARE TE ST DOCKED DEVICE UNSOLICITED RESULTS Final Result [facility] [address] [place] [address] * (ABNORMAL) POCT glucose meter (01/19/2025 12:21 PM EST) [facility] POCT Glucose 210(H) 74 - 99 mg/dL 01/19/2025 12:22 PM EST [facility] Comment:Accuracy of a glucos e result obtained from a capillary whole blood specimen relies upon adequate, non-compromised capillary blood flow. If the capillary glucose result is not consistent with the patient's clinical signs and symptoms, glucose testing should be repeated with either an arterial or venous sample on the glucometer or sent to the main labortory for testing. Comment 01/19/2025 12:22 PM EST [facility] Agricultural Equipment Sales Engineer ID Aleyda Haley 01/19/2025 12:22 PM EST [facility] Device ID [id number] 01/19/2025 12:22 PM EST [facility] Specimen Type POC Capillary 01/19/2025 12:22 PM EST [facility] Blood Capillary blood specimen / Unknown 01/19/2025 12:21 PM EST 01/19/2025 12:22 PM EST us Cleve Deleon MD LAB POINT OF CARE TE ST DOCKED DEVICE UNSOLICITED RESULTS Final Result Performing Organization Address City/[facility] Co de Phone Number [facility] [address] [place] [address] * (ABNORMAL) POCT glucose meter (01/19/2025 8:18 AM EST) POCT Glucose 140(H) 74 - 99 mg/dL 01/19/2025 8:20 AM EST [facility] Comment:Accuracy of a glucos e result obtained from a capillary whole blood specimen relies upon adequate, non-compromised capillary blood flow. If the capillary glucose result is not consistent with the patient's clinical signs and symptoms, glucose testing should be repeated with either an arterial or venous sample on the glucometer or sent to the main labortory for testing. Comment 01/19/2025 8:20 AM EST [facility] Agricultural Equipment Sales Engineer ID Aleyda Haley 01/19/2025 8:20 AM EST [facility]ALTHCARE LAB Device ID [id number] 01/19/2025 8:20 AM EST [facility] Specimen Type POC Capillary 01/19/2025 8:20 AM EST [facility] Blood Capillary blood specimen / Unknown 01/19/2025 8:18 AM EST 01/19/2025 8:20 AM EST us Cleve Deleon MD LAB POINT OF CARE TE ST DOCKED DEVICE UNSOLICITED RESULTS Final Result Performing Organization Address City/[facility]/ZIP Co de Phone Number [facility] [address] [place] [address] * Phosphorus (01/19/2025 6:05 AM EST) Phosphorus, Plasma 3.0 2.5 - 4.5 mg/dL 01/19/2025 6:40 AM EST [facility] Blood Venous blood specimen / Unknown Venipuncture / Unknown 01/19/2025 6:05 AM EST 01/19/2025 6:15 AM EST us Cleve Deleon MD LAB BLOOD ORDERABLES Final Re sult Performing Organization Address City/[facility]/ZIP Co de Phone Number [facility] [address] [place] [address] * Magnesium (01/19/2025 6:05 AM EST) Magnesium, Plasma 2.1 1.9 - 2.4 mg/dL 01/19/2025 6:40 AM EST [facility] Blood Venous blood specimen / Unknown Venipuncture / Unknown 01/19/2025 6:05 AM EST 01/19/2025 6:15 AM EST us Cleve Deleon MD LAB BLOOD ORDERABLES Final Re sult Performing Organization Address [facility] Co de Phone Number [facility] [address] [place] [address] * Vancomycin, Peak, Plasma Please draw ~2 hours after 0230 dose of vancomycin finishes infusing. Consider obtaining level via peripheral stick. If peripheral stick is not feasible, please ensure that line is flushed well prior to drawing level. Than... (01/19/2025 6:05 AM EST) Vancomycin, Peak, Plasma 39.7 20.0 - 40.0 ug/mL 01/19/2025 6:42 AM EST [facility] Blood Venous blood specimen / Unknown Venipuncture / Unknown 01/19/2025 6:05 AM EST 01/19/2025 6:15 AM EST Narrative [facility] - 01/19/2025 6:42 AM EST Therapeutic Peak level: 20-40ug/mL Supra-therapeutic Peak level: >40 ug/mL us Cleve Deleon MD LAB BLOOD ORDERABLES Final Re sult Performing Organization Address City/[facility]/ZIP Co de Phone Number [facility] [address] [place] [address] * Vancomycin, Trough, Plasma Please draw ~30 minutes prior to dose due at 0230 on 01/19. Please do NOT hold dose awaiting level to return. Consider obtaining level via peripheral stick. If peripheral stick is not feasible, please ensure that line i... (01/19/2025 2:05 AM EST) Pathologist [facility] Vancomycin, Trough, Plasma 16.4 10.0 - 20.0 ug/mL 01/19/2025 2:40 AM EST [facility] Blood Venous blood specimen / Unknown Venipuncture / Unknown 01/19/2025 2:05 AM EST 01/19/2025 2:12 AM EST Narrative [facility] - 01/19/2025 2:40 AM EST Therapeutic Trough level: 10-20ug/mL Supra-therapeutic Trough level: >20 ug/mL us Cleve Deleon MD LAB BLOOD ORDERABLES Final Re sult [facility] [address] [place] [address] * (ABNORMAL) POCT glucose meter (01/18/2025 10:05 PM EST) [facility] POCT Glucose 181(H) 74 - 99 mg/dL 01/18/2025 10:43 PM EST [facility] Comment:Accuracy of a glucos e result obtained from a capillary whole blood specimen relies upon adequate, non-compromised capillary blood flow. If the capillary glucose result is not consistent with the patient's clinical signs and symptoms, glucose testing should be repeated with either an arterial or venous sample on the glucometer or sent to the main labortory for testing. Comment 01/18/2025 10:43 PM EST [facility] Agricultural Equipment Sales Engineer ID Felisa Sarmiento [id number] 10:43 PM EST [facility] Device ID [id number] 01/18/2025 10:43 PM EST [facility] Specimen Type POC Capillary 01/18/2025 10:43 PM EST [facility] Blood Capillary blood specimen / Unknown 01/18/2025 10:05 PM EST 01/18/2025 10:43 PM EST us Cleve Deleon MD LAB POINT OF CARE TE ST DOCKED DEVICE UNSOLICITED RESULTS Final Result Performing Organization Address [facility] Co de Phone Number [facility] [address] [place] [address] * (ABNORMAL) POCT glucose meter (01/18/2025 5:34 PM EST) POCT Glucose 227(H) 74 - 99 mg/dL 01/18/2025 9:25 PM EST [facility] Comment:Accuracy of a glucos e result obtained from a capillary whole blood specimen relies upon adequate, non-compromised capillary blood flow. If the capillary glucose result is not consistent with the patient's clinical signs and symptoms, glucose testing should be repeated with either an arterial or venous sample on the glucometer or sent to the main labortory for testing. Comment 01/18/2025 9:25 PM EST [facility] Agricultural Equipment Sales Engineer ID Renae Mcleod 01/19/20 9:25 PM EST [facility] Device ID [id number] 01/18/2025 9:25 PM EST [facility] Specimen Type POC Capillary 01/18/2025 9:25 PM EST [facility] Blood Capillary blood specimen / Unknown 01/18/2025 5:34 PM EST 01/18/2025 9:25 PM EST us Cleve Deleon MD LAB POINT OF CARE TE ST DOCKED DEVICE UNSOLICITED RESULTS Final Result Performing Organization Address [facility] de Phone Number [facility] [address] [place] [address] * Blood Culture (Aerobic/Anaerobet Set) (01/18/2025 1:23 PM EST) Culture No growth at day 5 SADA 01/23/2025 2:02 PM EST [facility] Blood Venous blood specimen / Unknown Venipuncture / Unknown 01/18/2025 1:23 PM EST 01/18/2025 1:34 PM EST us Cleve Deleon MD LAB MICROBIOLOGY - GENERAL OR DERABLES Final Result Performing Organization Address City/[facility] Co de Phone Number [facility] [address] [place] [address] * PERIPHERAL IV (SMARTFORM LINK) (01/18/2025 12:54 PM EST) Narrative Ethel Steward RN - 01/18/2025 12:54 PM EST Ethel Steward RN 01/18/2025 12:54 PM Insert peripheral IV Performed by: Ethel Steward RN Authorized by: Cleve Deleon MD Hand hygiene: Hand hygiene performed prior to insertion Inserted using aseptic techniques: Yes Preparation: Skin prepped with chg Orientation: Right Location: Forearm Catheter placed: Peripheral IV Catheter size: 20g/2.00in Line Technique: Ultrasound Guidance Number of attempts: 1 IV flushes: Without difficulty and positive blood return noted and IV luer locked Patient tolerance: Patient tolerated the procedure well and there were no complications Patient comfort measures used: Distraction and position of comfort IV site covered with: Transparent semipermeable dressing Education provided to: Patient Comments: Pertinent imaging sent via PACS Cleve Deleon MD IV THERAPY ORDERABLES Final R esult * (ABNORMAL) POCT glucose meter (01/18/2025 12:00 PM EST) POCT Glucose 193(H) 74 - 99 mg/dL 01/18/2025 12:01 PM EST [facility] Comment:Accuracy of a glucos e result obtained from a capillary whole blood specimen relies upon adequate, non-compromised capillary blood flow. If the capillary glucose result is not consistent with the patient's clinical signs and symptoms, glucose testing should be repeated with either an arterial or venous sample on the glucometer or sent to the main labortory for testing. Comment 01/18/2025 12:01 PM EST [facility] Agricultural Equipment Sales Engineer ID Renae Mcleod 01/19/20 25 12:01 PM EST [facility] Device ID [id number] 01/18/2025 12:01 PM EST [facility] Specimen Type POC Capillary 01/18/2025 12:01 PM EST [facility] Blood Capillary blood specimen / Unknown 01/18/2025 12:00 PM EST 01/18/2025 12:01 PM EST us Cleve Deleon MD LAB POINT OF CARE TE ST DOCKED DEVICE UNSOLICITED RESULTS Final Result Performing Organization Address City/[facility] Co de Phone Number [facility] [address] [place] [address] * (ABNORMAL) POCT glucose meter (01/18/2025 8:25 AM EST) POCT Glucose 146(H) 74 - 99 mg/dL 01/18/2025 8:27 AM EST [facility] Comment:Accuracy of a glucos e result obtained from a capillary whole blood specimen relies upon adequate, non-compromised capillary blood flow. If the capillary glucose result is not consistent with the patient's clinical signs and symptoms, glucose testing should be repeated with either an arterial or venous sample on the glucometer or sent to the main labortory for testing. Comment 01/18/2025 8:27 AM EST [facility] Agricultural Equipment Sales Engineer ID Renae Mcleod 01/19/20 8:27 AM EST [facility] Device ID [id number] 01/18/2025 8:27 AM EST [facility] Specimen Type POC Capillary 01/18/2025 8:27 AM EST [facility] Blood Capillary blood specimen / Unknown 01/18/2025 8:25 AM EST 01/18/2025 8:27 AM EST us Cleve Deleon MD LAB POINT OF CARE TE ST DOCKED DEVICE UNSOLICITED RESULTS Final Result Performing Organization Address City/[facility] Co de Phone Number [facility] [address] [place] [address] * (ABNORMAL) CBC and Differential (01/18/2025 4:56 AM EST) WBC Count 10.71(H) 3.70 - 10.30 10*3/uL LAB HEMATOLOGY METHOD 01/18/2025 5:22 AM EST [facility] RBC Count 2.79(L) 3.90 - 5.20 10*6/uL LAB HEMATOLOGY METHOD 01/18/2025 5:22 AM EST [facility] HGB 9.0(L) 11.2 - 15.7 g/dL LAB HEMATOLOGY METHOD 01/18/2025 5:22 AM EST [facility] HCT 27.4(L) 34.0 - 45.0 % LAB HEMATOLOGY METHOD 01/18/2025 5:22 AM EST [facility] Platelet Count 400(H) 155 - 369 10*3/uL LAB HEMATOLOGY METHOD 01/18/2025 5:22 AM EST [facility] MCV 98 79 - 98 fL LAB HEMATOLOGY METHOD 01/18/2025 5:22 AM EST [facility] MCH 32.3(H) 26.0 - 32.0 pg LAB HEMATOLOGY METHOD 01/18/2025 5:22 AM EST [facility] MCHC 32.8 30.7 - 35.5 g/dL LAB HEMATOLOGY METHOD 01/18/2025 5:22 AM EST [facility] RDW 14.3 11.5 - 14.5 % LAB HEMATOLOGY METHOD 01/18/2025 5:22 AM [facility] MPV 9.0 8.8 - 12.5 fL LAB HEMATOLOGY METHOD 01/18/2025 5:22 AM [facility] nRBC 0.0 <=0.0 per 100 WBCs LAB HEMATOLOGY METHOD 01/18/2025 5:22 AM [facility] Differential Type Automated LAB HEMATOLOGY METHOD 01/18/2025 5:22 AM [facility] Neutrophils % 79 % LAB HEMATOLOGY METHOD 01/18/2025 5:22 AM [facility] Lymphocytes % 9 % LAB HEMATOLOGY METHOD 01/18/2025 5:22 AM [facility] Monocytes % 9 % LAB HEMATOLOGY METHOD 01/18/2025 5:22 AM EST [facility] Eosinophils % 2 % LAB HEMATOLOGY METHOD 01/18/2025 5:22 AM EST [facility] Basophils % 0 % LAB HEMATOLOGY METHOD 01/18/2025 5:22 AM [facility] Immature Granulocytes % 1 % LAB HEMATOLOGY METHOD 01/18/2025 5:22 AM [facility] Neutrophils Absolute 8.43(H) 1.60 - 6.10 10*3/uL LAB HEMATOLOGY METHOD 01/18/2025 5:22 AM EST [facility] Lymphocytes Absolute 0.99(L) 1.20 - 3.90 10*3/uL LAB HEMATOLOGY METHOD 01/18/2025 5:22 AM EST [facility] Monocytes Absolute 0.97(H) 0.30 - 0.90 10*3/uL LAB HEMATOLOGY METHOD 01/18/2025 5:22 AM EST [facility] Eosinophils Absolute 0.21 0.00 - 0.50 10*3/uL LAB HEMATOLOGY METHOD 01/18/2025 5:22 AM EST [facility] Basophils Absolute 0.03 0.00 - 0.10 10*3/uL LAB HEMATOLOGY METHOD 01/18/2025 5:22 AM EST [facility] Immature Granulocytes Absolute 0.08(H) 0.00 - 0.06 10*3/uL LAB HEMATOLOGY METHOD 01/18/2025 5:22 AM EST [facility] Blood Blood sample taken from central line / Unknown Venipuncture / Unknown 01/18/2025 4:56 AM EST 01/18/2025 5:12 AM EST Narrative [facility] - 01/18/2025 5:22 AM EST Therapeutic decision making should be based on absolute values, rather than percentages. Cleve Deleon MD LAB BLOOD ORDERABLES Final Re sult [facility] [address] [place] [address] * (ABNORMAL) Magnesium, Plasma (01/18/2025 4:56 AM EST) Magnesium, Plasma 1.7(L) 1.9 - 2.4 mg/dL 01/18/2025 5:42 AM EST [facility] Blood Blood sample taken from central line / Unknown Venipuncture / Unknown 01/18/2025 4:56 AM EST 01/18/2025 5:12 AM EST Cleve Deleon MD LAB BLOOD ORDERABLES Final Re sult [facility] [address] [place] [address] * (ABNORMAL) Basic Metabolic Panel, Plasma (01/18/2025 4:56 AM EST) Glucose, Plasma 151(H) 74 - 99 mg/dL 01/18/2025 5:42 AM EST [facility] BUN, Plasma 16 8 - 23 mg/dL 01/18/2025 5:42 AM EST [facility] Creatinine, Plasma 0.90 0.60 - 1.10 mg/dL 01/18/2025 5:42 AM EST [facility] BUN/Creatinine Ratio 18 01/18/2025 5:42 AM EST [facility] Sodium, Plasma 142 136 - 145 mmol/L 01/18/2025 5:42 AM EST [facility] Potassium, Plasma 4.0 3.6 - 4.9 mmol/L 01/18/2025 5:42 AM EST [facility] Chloride, Plasma 104 97 - 107 mmol/L 01/18/2025 5:42 AM EST [facility] CO2, Plasma 25 22 - 29 mmol/L 01/18/2025 5:42 AM EST [facility] Anion Gap 13 6 - 16 mmol/L 01/18/2025 5:42 AM EST [facility] Total Calcium, Plasma 8.4(L) 8.9 - 10.2 mg/dL 01/18/2025 5:42 AM EST [facility] eGFRcr 67.2 mL/min/1.7 3m*2 01/18/2025 5:42 AM EST [facility] Comment:Reported eGFRcr in m L/min/1.73m2 is based the CKD-EPI 2020 equation that does not use a race coefficient. Blood Blood sample taken from central line / Unknown Venipuncture / Unknown 01/18/2025 4:56 AM EST 01/18/2025 5:12 AM EST us Cleve Deleon MD LAB BLOOD ORDERABLES Final Re sult [facility] [address] [place] [address] * (ABNORMAL) Phosphorus, Plasma (01/18/2025 4:56 AM EST) Phosphorus, Plasma 1.9(L) 2.5 - 4.5 mg/dL 01/18/2025 5:42 AM EST [facility] Blood Blood sample taken from central line / Unknown Venipuncture / Unknown 01/18/2025 4:56 AM EST 01/18/2025 5:12 AM EST us Cleve Dleeon MD LAB BLOOD ORDERABLES Final Re sult Performing Organization Address City/[facility]/ZIP Co de Phone Number [facility] [address] [place] [address] * Hepatitis C Antibody - ED W/Reflex to HCV Quant PCR (01/18/2025 4:56 AM EST) Hepatitis C Antibody Negative Negative 01/18/2025 5:53 AM EST [facility] Blood Blood sample taken from central line / Unknown Venipuncture / Unknown 01/18/2025 4:56 AM EST 01/18/2025 5:11 AM EST us Cleve Deleon MD LAB BLOOD ORDERABLES Final Re sult Performing Organization Address City/[facility]/ZIP Co de Phone Number [facility] [address] [place] [address] * (ABNORMAL) Hepatic Function Panel (01/18/2025 4:56 AM EST) Direct Bilirubin, Plasma <0.2 <=0.3 mg/dL 01/18/2025 5:42 AM EST [facility] Alkaline Phosphatase, Plasma 263(H) 46 - 142 U/L 01/18/2025 5:42 AM EST [facility] Total Bilirubin, Plasma 0.3 0.2 - 1.1 mg/dL 01/18/2025 5:42 AM EST [facility] Albumin, Plasma 3.0(L) 3.5 - 5.2 g/dL 01/18/2025 5:42 AM EST [facility] Total Protein 6.1(L) 6.3 - 7.9 g/dL 01/18/2025 5:42 AM EST [facility] ALT, Plasma 53(H) 10 - 35 U/L 01/18/2025 5:42 AM EST [facility] AST, Plasma 70(H) 10 - 35 U/L 01/18/2025 5:42 AM EST [facility] Blood Blood sample taken from central line / Unknown Venipuncture / Unknown 01/18/2025 4:56 AM EST 01/18/2025 5:12 AM EST us Cleve Deleon MD LAB BLOOD ORDERABLES Final Re sult Performing Organization Address City/[facility] Co de Phone Number [facility] [address] [place] [address] * (ABNORMAL) POCT glucose meter (01/17/2025 9:24 PM EST) Pathologist [facility] POCT Glucose 175(H) 74 - 99 mg/dL 01/17/2025 9:27 PM EST [facility] Comment:Accuracy of a glucos e result obtained from a capillary whole blood specimen relies upon adequate, non-compromised capillary blood flow. If the capillary glucose result is not consistent with the patient's clinical signs and symptoms, glucose testing should be repeated with either an arterial or venous sample on the glucometer or sent to the main labortory for testing. Comment 01/17/2025 9:27 PM EST [facility] Agricultural Equipment Sales Engineer ID Felisa Sarmiento 025 9:27 PM EST [facility] Device ID [id number] 01/17/2025 9:27 PM EST [facility] Specimen Type POC Capillary 01/17/2025 9:27 PM EST [facility] Blood Capillary blood specimen / Unknown 01/17/2025 9:24 PM EST 01/17/2025 9:27 PM EST us Cleve Deleon MD LAB POINT OF CARE TE ST DOCKED DEVICE UNSOLICITED RESULTS Final Result Performing Organization Address City/[facility] Co de Phone Number [facility] [address] [place] [address] * Hepatitis B Surface Antigen (01/17/2025 7:50 PM EST) Pathologist [facility] Hepatitis B Surf Antigen Negative Negative 01/17/2025 10:06 PM EST [facility] Blood Arterial blood specimen / Unknown (Central Line) Existing Catheter / Unknown 01/17/2025 7:50 PM EST 01/17/2025 7:54 PM EST us Cleve Deleon MD LAB BLOOD ORDERABLES Final Re sult Performing Organization Address [facility] Co de Phone Number [facility] [address] [place] [address] * Hepatitis B Surface Antibody, Quantitative (01/17/2025 7:50 PM EST) Hepatitis B Surface Antibody, Quantitative <8.00 NonReactiv e: <8, Grayzone: 8 - <12, Reactive: >= 12 mIU/mL 01/17/2025 10:[address] [facility] Comment: Nonreactive. Individual is considered not immune to HBV infection. Blood Arterial blood specimen / Unknown (Central Line) Existing Catheter / Unknown 01/17/2025 7:50 PM EST 01/17/2025 7:54 PM EST us Cleve Deleon MD LAB BLOOD ORDERABLES Final Re sult Performing Organization Address [facility] [place] [address] * Hepatitis B Core Total Antibody IgG,IgM (01/17/2025 7:50 PM EST) Hepatitis B Core Total Antibody IgG,IgM Negative Negative 01/17/2025 10:[address] [facility] Blood Arterial blood specimen / Unknown (Central Line) Existing Catheter / Unknown 01/17/2025 7:50 PM EST 01/17/2025 7:54 PM EST us Cleve Deleon MD LAB BLOOD ORDERABLES Final Re sult Performing Organization Address City/[facility]/ZIP Co de Phone Number [facility] [address] [place] [address] * Hepatitis B Core Antibody IgM (01/17/2025 7:50 PM EST) Hepatitis B Core Antibody IgM Negative Negative 01/17/2025 10:06 PM EST [facility] Blood Arterial blood specimen / Unknown (Central Line) Existing Catheter / Unknown 01/17/2025 7:50 PM EST 01/17/2025 7:54 PM EST Cleve Deleon MD LAB BLOOD ORDERABLES Final Re sult [facility] [address] [place] [address] * (ABNORMAL) POCT glucose meter (01/17/2025 5:55 PM EST) POCT Glucose 186(H) 74 - 99 mg/dL 01/17/2025 5:57 PM EST [facility] Comment:Accuracy of a glucos e result obtained from a capillary whole blood specimen relies upon adequate, non-compromised capillary blood flow. If the capillary glucose result is not consistent with the patient's clinical signs and symptoms, glucose testing should be repeated with either an arterial or venous sample on the glucometer or sent to the main labortory for testing. Comment 01/17/2025 5:57 PM EST [facility] Agricultural Equipment Sales Engineer ID Aleyda aHley 01/17/2025 5:57 PM EST [facility] Device ID [id number] 01/17/2025 5:57 PM EST [facility] Specimen Type POC Capillary 01/17/2025 5:57 PM EST [facility] Blood Capillary blood specimen / Unknown 01/17/2025 5:55 PM EST 01/17/2025 5:57 PM EST Cleve Deleon MD LAB POINT OF CARE TE ST DOCKED DEVICE UNSOLICITED RESULTS Final Result [facility] [address] [place] [address] * (ABNORMAL) POCT glucose meter (01/17/2025 12:33 PM EST) POCT Glucose 172(H) 74 - 99 mg/dL 01/17/2025 12:34 PM EST [facility] Comment:Accuracy of a glucos e result obtained from a capillary whole blood specimen relies upon adequate, non-compromised capillary blood flow. If the capillary glucose result is not consistent with the patient's clinical signs and symptoms, glucose testing should be repeated with either an arterial or venous sample on the glucometer or sent to the main labortory for testing. Comment 01/17/2025 12:34 PM EST [facility] Agricultural Equipment Sales Engineer ID Aleyda Haley 01/17/2025 12:34 PM EST [facility] Device ID [id number] 01/17/2025 12:34 PM EST [facility] Specimen Type POC Capillary 01/17/2025 12:34 PM EST [facility] Blood Capillary blood specimen / Unknown 01/17/2025 12:33 PM EST 01/17/2025 12:34 PM EST Cleve Deleon MD LAB POINT OF CARE TE ST DOCKED DEVICE UNSOLICITED RESULTS Final Result Performing Organization Address City/State/[facility] Co de Phone Number [facility]ALTH[facility]ARE LAB [address] [place] [address] * ECHO, ADULT TRANSTHORACIC COMPLETE (01/17/2025 11:55 AM EST) BSA 2.07 m2 PINEDA ISCV LVIDd 45 mm PINEDA ISCV LVIDs 23 mm PINEDA ISCV IVSd 13 mm PINEDA ISCV LVPWd 13 mm PINEDA ISCV LV MASS(C)D 222 g PINEDA ISCV [facility] CV ECHO LV MASS INDEX 107 g/m2 PINEDA ISCV LV RWT 0.58 mm PINEDA ISCV LV EDV(MOD-4ch) 112 mL PINEDA ISCV LV ESV(MOD4ch) 42 mL PINEDA ISCV EF(MOD-sp4) 63 % PINEDA ISCV MV E Vmax 142.0 cm/s PINEDA ISCV MV A Vmax 102.0 cm/s PINEDA ISCV MV E/A 1.4 cm/s PINEDA ISCV TR Vmax 376.0 cm/s PINEDA ISCV TAPSE 21 mm PINEDA ISCV TR Max PG 57 mmHG PINEDA ISCV MV dec time 150 ms PINEDA ISCV MV P1/2t 44 ms PINEDA ISCV MVA(P1/2t) 5.1 cm2 PINEDA ISCV Asc Ao Diam 37 mm PINEDA ISCV Ao Root Diam 26 mm PINEDA ISCV LAV(MOD-4ch) 40 mL PINEDA ISCV LAV(MOD-bp) Indexed 19 mL/m2 PINEDA ISCV LAV(MOD-2ch) 37 mL PINEDA ISCV RA MOD 4Ch 94 mL PINEDA ISCV SUNNI 45 mL/m2 PINEDA ISCV LV Lat e' Velocity 8.2 cm/s PINEDA ISCV Lat E/e' 17.3 PINEDA ISCV LV Sept e' Murtaza 8.8 cm/s PINEDA ISCV Sep E/e' 16.1 PINEDA ISCV Avg E/e' 16.7 PINEDA ISCV RV s' Murtaza 18.2 cm/s PINEDA ISCV RVSP 72 mmHg PINEDA ISCV IVC Max Size 24 mm PINEDA ISCV RAP systole 15 mmHg PINEDA ISCV Anatomical Region Laterality Modality Echocardiography Narrative 01/17/2025 1:52 PM EST Left Ventricle: The left ventricle is normal size. The left ventricular systolic function is normal. The LVEF is visually estimated at 60 - 70%. The diastolic function is normal. The left ventricular filling pressure is elevated. Right Ventricle: The right ventricle is grossly normal in size. The right ventricular systolic function is normal. The estimated right ventricular systolic pressure is 72 mmHg. Right ventricular systolic pressure is severely elevated (>70mmHg). All cardiac valves were reasonably well interrogated with 2D imaging and/or Doppler assessment and no significant valve regurgitation or stenosis is seen. There is no recent study available for direct vpck-ob-hjot comparison. Left Ventricle The left ventricle is normal size. The left ventricular systolic function is normal. The LVEF is visually estimated at 60 - 70%. The diastolic function is normal. The left ventricular filling pressure is elevated. The left ventricular wall motion is normal. Right Ventricle The right ventricle is grossly normal in size. The right ventricular systolic function is normal. The estimated right ventricular systolic pressure is 72 mmHg. Right ventricular systolic pressure is severely elevated (>70mmHg). Left Atrium The left atrial size is normal. The interatrial septum is intact with no evidence for an atrial septal defect. Right Atrium The right atrium is dilated by visual assessment. IVC/SVC Based on the IVC size and respiratory variation, the estimated right atrial pressure is 15mmHg. Mitral Valve The mitral valve leaflets are normal in appearance with no evidence of mitral valve prolapse. There is no mitral valve vegetation. There is trace mitral regurgitation. There is no mitral stenosis. Tricuspid Valve The tricuspid valve is normal in appearance. There is no tricuspid valve vegetation. There is mild to moderate tricuspid regurgitation. There is no tricuspid stenosis. Aortic Valve The aortic valve appears to be trileaflet. There is no aortic valve vegetation. There is no valvular regurgitation. There is no hemodynamically significant valvular aortic stenosis. Pulmonic Valve The pulmonic valve is normal in appearance. There is no pulmonic valve vegetation. There is trace pulmonic regurgitation. There is no pulmonic stenosis. Pericardium No pericardial effusion. Great Vessels The aortic root is normal in size. In the maximally visualized portion, the ascending aorta appears normal in size. The main pulmonary artery is not well visualized. Study Details A complete transthoracic echocardiogram using two-dimensional (2D), m-mode, color and spectral flow Doppler imaging was performed. Overall the study quality was good. The study was technically difficult. The study was technically difficult due to patient's body habitus. Heart rate was normal. BSA: 2.07 m2. The heart rhythm during this exam was most suggestive of a sinus rhythm. Study Recommendation All cardiac valves were reasonably well interrogated with 2D imaging and/or Doppler assessment and no significant valve regurgitation or stenosis is seen. There is no recent study available for direct [id number] comparison. us Cleve Deleon MD CV ECHO PROCEDURES Final Resu lt * (ABNORMAL) POCT glucose meter (01/17/2025 5:23 AM EST) POCT Glucose 166(H) 74 - 99 mg/dL 01/17/2025 5:25 AM EST [facility] Comment:Accuracy of a glucos e result obtained from a capillary whole blood specimen relies upon adequate, non-compromised capillary blood flow. If the capillary glucose result is not consistent with the patient's clinical signs and symptoms, glucose testing should be repeated with either an arterial or venous sample on the glucometer or sent to the main labortory for testing. Comment 01/17/2025 5:25 AM EST [facility] Agricultural Equipment Sales Engineer ID Cydney Valiente 5:25 AM EST [facility] Device ID [id number] 01/17/2025 5:25 AM EST [facility] Specimen Type POC Capillary 01/17/2025 5:25 AM EST [facility] Blood Capillary blood specimen / Unknown 01/17/2025 5:23 AM EST 01/17/2025 5:25 AM EST Cleve Deleon MD LAB POINT OF CARE TE ST DOCKED DEVICE UNSOLICITED RESULTS Final Result [facility] [address] [place] [id number] * (ABNORMAL) CBC and Differential (01/17/2025 2:31 AM EST) Pathologist [facility] WBC Count 8.74 3.70 - 10.30 10*3/uL LAB HEMATOLOGY METHOD 01/17/2025 3:05 AM EST [facility] RBC Count 2.82(L) 3.90 - 5.20 10*6/uL LAB HEMATOLOGY METHOD 01/17/2025 3:05 AM EST [facility] HGB 8.9(L) 11.2 - 15.7 g/dL LAB HEMATOLOGY METHOD 01/17/2025 3:05 AM EST [facility] HCT 27.9(L) 34.0 - 45.0 % LAB HEMATOLOGY METHOD 01/17/2025 3:05 AM EST [facility] Platelet Count 351 155 - 369 10*3/uL LAB HEMATOLOGY METHOD 01/17/2025 3:05 AM EST [facility] MCV 99(H) 79 - 98 fL LAB HEMATOLOGY METHOD 01/17/2025 3:05 AM EST [facility] MCH 31.6 26.0 - 32.0 pg LAB HEMATOLOGY METHOD 01/17/2025 3:05 AM EST [facility] MCHC 31.9 30.7 - 35.5 g/dL LAB HEMATOLOGY METHOD 01/17/2025 3:05 AM EST [facility] RDW 14.2 11.5 - 14.5 % LAB HEMATOLOGY METHOD 01/17/2025 3:05 AM EST [facility] MPV 9.1 8.8 - 12.5 fL LAB HEMATOLOGY METHOD 01/17/2025 3:05 AM EST [facility] nRBC 0.0 <=0.0 per 100 WBCs LAB HEMATOLOGY METHOD 01/17/2025 3:05 AM EST [facility] Differential Type Automated LAB HEMATOLOGY METHOD 01/17/2025 3:05 AM EST [facility] Neutrophils % 88 % LAB HEMATOLOGY METHOD 01/17/2025 3:05 AM EST [facility] Lymphocytes % 8 % LAB HEMATOLOGY METHOD 01/17/2025 3:05 AM EST [facility] Monocytes % 2 % LAB HEMATOLOGY METHOD 01/17/2025 3:05 AM EST [facility] Eosinophils % 0 % LAB HEMATOLOGY METHOD 01/17/2025 3:05 AM EST [facility] Basophils % 0 % LAB HEMATOLOGY METHOD 01/17/2025 3:05 AM EST [facility] Immature Granulocytes % 2 % LAB HEMATOLOGY METHOD 01/17/2025 3:05 AM EST [facility] Neutrophils Absolute 7.74(H) 1.60 - 6.10 10*3/uL LAB HEMATOLOGY METHOD 01/17/2025 3:05 AM EST [facility] Lymphocytes Absolute 0.68(L) 1.20 - 3.90 10*3/uL LAB HEMATOLOGY METHOD 01/17/2025 3:05 AM EST [facility] Monocytes Absolute 0.17(L) 0.30 - 0.90 10*3/uL LAB HEMATOLOGY METHOD 01/17/2025 3:05 AM EST [facility] Eosinophils Absolute 0.00 0.00 - 0.50 10*3/uL LAB HEMATOLOGY METHOD 01/17/2025 3:05 AM EST [facility] Basophils Absolute 0.02 0.00 - 0.10 10*3/uL LAB HEMATOLOGY METHOD 01/17/2025 3:05 AM [facility] Immature Granulocytes Absolute 0.13(H) 0.00 - 0.06 10*3/uL LAB HEMATOLOGY METHOD 01/17/2025 3:05 AM EST [facility] Blood Venous blood specimen / Unknown Venipuncture / Unknown 01/17/2025 2:31 AM EST 01/17/2025 2:40 AM EST [facility] - 01/17/2025 3:05 AM EST Therapeutic decision making should be based on absolute values, rather than percentages. us Cleve Deleon MD LAB BLOOD ORDERABLES Final Re sult [facility] [address] [place] [address] * Magnesium, Plasma (01/17/2025 2:31 AM EST) Magnesium, Plasma 2.0 1.9 - 2.4 mg/dL 01/17/2025 3:08 AM EST [facility] Blood Venous blood specimen / Unknown Venipuncture / Unknown 01/17/2025 2:31 AM EST 01/17/2025 2:39 AM EST us Cleve Deleon MD LAB BLOOD ORDERABLES Final Re sult [facility] [address] [place] [address] * (ABNORMAL) Basic Metabolic Panel, Plasma (01/17/2025 2:31 AM EST) Glucose, Plasma 193(H) 74 - 99 mg/dL 01/17/2025 3:08 AM EST [facility] BUN, Plasma 17 8 - 23 mg/dL 01/17/2025 3:08 AM EST [facility] Creatinine, Plasma 0.87 0.60 - 1.10 mg/dL 01/17/2025 3:08 AM EST [facility] BUN/Creatinine Ratio 20 01/17/2025 3:08 AM EST [facility] Sodium, Plasma 140 136 - 145 mmol/L 01/17/2025 3:08 AM EST [facility] Potassium, Plasma 4.6 3.6 - 4.9 mmol/L 01/17/2025 3:08 AM EST [facility] Chloride, Plasma 104 97 - 107 mmol/L 01/17/2025 3:08 AM EST [facility] CO2, Plasma 24 22 - 29 mmol/L 01/17/2025 3:08 AM EST [facility] Anion Gap 12 6 - 16 mmol/L 01/17/2025 3:08 AM EST [facility] Total Calcium, Plasma 8.7(L) 8.9 - 10.2 mg/dL 01/17/2025 3:08 AM EST [facility] eGFRcr 70.0 mL/min/1.7 3m*2 01/17/2025 3:08 AM EST [facility] Comment:Reported eGFRcr in m L/min/1.73m2 is based the CKD-EPI 2020 equation that does not use a race coefficient. Blood Venous blood specimen / Unknown Venipuncture / Unknown 01/17/2025 2:31 AM EST 01/17/2025 2:39 AM EST us Cleve Deleon MD LAB BLOOD ORDERABLES Final Re sult Performing Organization Address [facility] de Phone Number [facility] [address] [place] [address] * Phosphorus, Plasma (01/17/2025 2:31 AM EST) Phosphorus, Plasma 4.3 2.5 - 4.5 mg/dL 01/17/2025 3:[address] [facility] Blood Venous blood specimen / Unknown Venipuncture / Unknown 01/17/2025 2:31 AM EST 01/17/2025 2:39 AM EST us Cleve Deleon MD LAB BLOOD ORDERABLES Final Re sult Performing Organization Address [facility] de Phone Number [facility] [address] [place] [address] * (ABNORMAL) POCT glucose meter (01/17/2025 12:39 AM EST) POCT Glucose 198(H) 74 - 99 mg/dL 01/17/2025 12:41 AM EST [facility] Comment:Accuracy of a glucos e result obtained from a capillary whole blood specimen relies upon adequate, non-compromised capillary blood flow. If the capillary glucose result is not consistent with the patient's clinical signs and symptoms, glucose testing should be repeated with either an arterial or venous sample on the glucometer or sent to the main labortory for testing. Comment 01/17/2025 12:41 AM EST [facility] Agricultural Equipment Sales Engineer ID Cydney Valiente 12:41 AM EST [facility] Device ID [id number] 01/17/2025 12:41 AM EST [facility] Specimen Type POC Capillary 01/17/2025 12:41 AM EST [facility] Blood Capillary blood specimen / Unknown 01/17/2025 12:39 AM EST 01/17/2025 12:41 AM EST Cleve Deleon MD LAB POINT OF CARE TE ST DOCKED DEVICE UNSOLICITED RESULTS Final Result [facility] [address] [place] [address] * CT Lumbar Spine w IV Contrast (01/16/2025 8:00 PM EST) Anatomical Region Laterality Modality Spine, L-spine Computed Tomogra phy Impressions 01/17/2025 1:25 PM EST Interval removal of spinal cord stimulator. Fluid and air at the site of removed hardware, presumably postsurgical. CRITICAL RESULT: No COMMUNICATION: Per this written report. Drafted by Ar Wick MD on 01/17/2025 1:05 PM Final report signed by Ar Wikc MD on 01/17/2025 1:25 PM Narrative 01/17/2025 1:25 PM EST CLINICAL INDICATION: Lumbar radiculopathy, infection suspected, no prior imaging TECHNIQUE: Imaging of the entire lumbar spine was performed using spiral technique, with the administration of intravenous contrast. Images were reconstructed in the axial plane at multiple slice thicknesses on bone and soft tissue algorithm. Reformatted images in the coronal and sagittal planes were generated. 100 ml of Omnipaque 300 were administered. TOTAL DLP (Dose-Length Product): 816.50 mGy.cm mGy*cm. Please note: The reported value represents the total of one or more individual components during the CT acquisition on this date and at this time, and as such, the same value may appear in more than one CT report depending on the interpreting/reporting physicians. COMPARISON: Lumbar spine CT 01/13/2025.. FINDINGS: Diagnostic Quality: Adequate Alignment: Grade I anterolisthesis of L5 on S1. Vertebral bodies and intervertebral discs: Chronic L1 fracture status post vertebral augmentation. There is retropulsion of the posterior fracture fragment of the spinal canal resulting in mild spinal canal stenosis, similar to prior CT. Interval removal of spinal cord stimulator with small focus of air in the spinal canal. Vertebral body heights are otherwise maintained. Multilevel disc height loss with vacuum disc phenomenon at L2-L3 and L4-L5. No acute fracture is present. Anatomic variants: None. 5 Lumbarized vertebral bodies are present. Degenerative changes: Multilevel disc bulge most pronounced at L3-L4 and L4-L5. Multilevel facet arthropathy. No significant spinal canal stenosis. Severe right and moderate left neural foraminal stenosis at L4-L5. Moderate bilateral neural foraminal stenosis at L5-S1. Mild bilateral neural foraminal stenosis at L2-L3 and L3-L4. Prevertebral and Paraspinal Soft Tissues: Small amount of fluid and air at the site of the removed generator, presumably postsurgical. Right renal cyst. Procedure Note Ar Wick MD - 01/17/2025 CLINICAL INDICATION: Lumbar radiculopathy, infection suspected, no prior imaging TECHNIQUE: Imaging of the entire lumbar spine was performed using spiral technique,with the administration of intravenous contrast. Images were reconstructedin the axial plane at multiple slice thicknesses on bone and soft tissuealgorithm. Reformatted images in the coronal and sagittal planes weregenerated. 100 ml of Omnipaque 300 were administered. TOTAL DLP (Dose-Length Product): 816.50 mGy.cm mGy*cm. Please note: Thereported value represents the total of one or more individual componentsduring the CT acquisition on this date and at this time, and as such, thesame value may appear in more than one CT report depending on theinterpreting/reporting physicians. COMPARISON: Lumbar spine CT 01/13/2025.. FINDINGS: Diagnostic Quality: Adequate Alignment: Grade I anterolisthesis of L5 on S1. Vertebral bodies and intervertebral discs: Chronic L1 fracture status postvertebral augmentation. There is retropulsion of the posterior fracturefragment of the spinal canal resulting in mild spinal canal stenosis,similar to prior CT. Interval removal of spinal cord stimulator with smallfocus of air in the spinal canal. Vertebral body heights are otherwisemaintained. Multilevel disc height loss with vacuum disc phenomenon atL2-L3 and L4-L5. No acute fracture is present. Anatomic variants: None. 5 Lumbarized vertebral bodies are present. Degenerative changes: Multilevel disc bulge most pronounced at L3-L4 andL4-L5. Multilevel facet arthropathy. No significant spinal canal stenosis.Severe right and moderate left neural foraminal stenosis at L4-L5.Moderate bilateral neural foraminal stenosis at L5-S1. Mild bilateralneural foraminal stenosis at L2-L3 and L3-L4. Prevertebral and Paraspinal Soft Tissues: Small amount of fluid and air atthe site of the removed generator, presumably postsurgical. Right renalcyst. IMPRESSION: Interval removal of spinal cord stimulator. Fluid and air at the site ofremoved hardware, presumably postsurgical. CRITICAL RESULT: No COMMUNICATION: Per this written report. Drafted by Ar Wick MD on 01/17/2025 1:05 PM Final report signed by Ar Wick MD on 01/17/2025 1:25 PM Fransisco Gaston MD IMG CT PROCEDURES Fi nal Result * US Abdomen RUQ (01/16/2025 7:50 PM EST) Anatomical Region Laterality Modality Gallbladder Ultrasound Impressions 01/16/2025 8:04 PM EST Mildly coarsened liver echotexture suggests parenchymal disease. Borderline extrahepatic biliary ductal dilatation likely related to postcholecystectomy ectasia. No right upper quadrant ascites. CRITICAL RESULT: No. COMMUNICATION: Per this written report. Drafted by Johana Coyne MD on 01/16/2025 8:02 PM Final report signed by Johana Coyne MD on 01/16/2025 8:04 PM Narrative 01/16/2025 8:04 PM EST CLINICAL INDICATION: Transaminitis TECHNIQUE: Multiplanar static and cine avery scale ultrasound images of the right abdomen were obtained, accompanied by selective color Doppler ultrasound images. COMPARISON: Outside CT January 10, 2025. FINDINGS: Grayscale: Liver: The liver is mildly coarse suggesting parenchymal disease. No suspicious focal liver lesions are detected. No intrahepatic biliary ductal dilatation. Portal Vein: There is antegrade flow within the main portal vein. Gallbladder: The gallbladder is absent. Common Duct: 6 mm Pancreas: The visualized portions of the pancreas appear unremarkable. Right kidney: Grossly unremarkable without hydronephrosis or suspicious mass. Length 9.1 cm. Midpole cortical cyst measuring up to 2.8 cm. Free Fluid: There is no ascites. Procedure Note Johana Coyne MD - 01/16/2025 CLINICAL INDICATION: Transaminitis TECHNIQUE: Multiplanar static and cine avery scale ultrasound images of the rightabdomen were obtained, accompanied by selective color Doppler ultrasoundimages. COMPARISON: Outside CT January 10, 2025. FINDINGS: Grayscale: Liver: The liver is mildly coarse suggesting parenchymal disease. Nosuspicious focal liver lesions are detected. No intrahepatic biliaryductal dilatation. Portal Vein: There is antegrade flow within the main portal vein. Gallbladder: The gallbladder is absent. Common Duct: 6 mm Pancreas: The visualized portions of the pancreas appear unremarkable. Right kidney: Grossly unremarkable without hydronephrosis or suspiciousmass. Length 9.1 cm. Midpole cortical cyst measuring up to 2.8 cm. Free Fluid: There is no ascites. IMPRESSION: Mildly coarsened liver echotexture suggests parenchymal disease. Borderline extrahepatic biliary ductal dilatation likely related topostcholecystectomy ectasia. No right upper quadrant ascites. CRITICAL RESULT: No. COMMUNICATION: Per this written report. Drafted by Johana Coyne MD on 01/16/2025 8:02 PM Final report signed by Johana Coyne MD on 01/16/2025 8:04 PM us Naina Dubois COMPLIANCE REVIEW SPECIALIST IMG US PROCEDURES Final Result * (ABNORMAL) POCT glucose meter (01/16/2025 6:35 PM EST) POCT Glucose 173(H) 74 - 99 mg/dL 01/16/2025 6:36 PM EST [facility] Comment:Accuracy of a glucos e result obtained from a capillary whole blood specimen relies upon adequate, non-compromised capillary blood flow. If the capillary glucose result is not consistent with the patient's clinical signs and symptoms, glucose testing should be repeated with either an arterial or venous sample on the glucometer or sent to the main labortory for testing. Comment 01/16/2025 6:36 PM EST [facility] Agricultural Equipment Sales Engineer ID Hugo WardNarinderMarissa 01/16/2025 6:36 PM EST [facility] Device ID [id number] 01/16/2025 6:36 PM EST [facility] Specimen Type POC Capillary 01/16/2025 6:36 PM EST [facility] Blood Capillary blood specimen / Unknown 01/16/2025 6:35 PM EST 01/16/2025 6:36 PM EST Cleve Deleon MD LAB POINT OF CARE TE ST DOCKED DEVICE UNSOLICITED RESULTS Final Result Performing Organization Address [facility] de Phone Number [facility] [address] [place] [address] * (ABNORMAL) POCT glucose meter (01/16/2025 5:22 PM EST) POCT Glucose 178(H) 74 - 99 mg/dL 01/16/2025 5:23 PM EST [facility] Comment:Accuracy of a glucos e result obtained from a capillary whole blood specimen relies upon adequate, non-compromised capillary blood flow. If the capillary glucose result is not consistent with the patient's clinical signs and symptoms, glucose testing should be repeated with either an arterial or venous sample on the glucometer or sent to the main labortory for testing. Comment 01/16/2025 5:23 PM EST [facility] Agricultural Equipment Sales Engineer ID Felisa Hernandez 5:23 PM EST [facility] Device ID [id number] 01/16/2025 5:23 PM EST [facility] Specimen Type POC Capillary 01/16/2025 5:23 PM EST [facility] Blood Capillary blood specimen / Unknown 01/16/2025 5:22 PM EST 01/16/2025 5:23 PM EST us Cleve Deleon MD LAB POINT OF CARE TE ST DOCKED DEVICE UNSOLICITED RESULTS Final Result Performing Organization Address [facility] de Phone Number [facility] [address] [place] [address] * FL Less than 1 Hour Intraoperative (01/16/2025 5:02 PM EST) Narrative IMAGING - 01/16/2025 5:04 PM EST Images were obtained for surgical purposes. See Fransisco Farley's surgical note in the patient's chart for the findings. us Fransisco Gaston MD IMG FLUOROSCOPY PROC EDURES Final Result IMAGING * (ABNORMAL) Routine Culture and Gram Stain (01/16/2025 4:14 PM EST) Culture Heavy Growth 01/19/2025 5:17 PM EST [facility] Culture 4+ Biotype 1 Methicillin-Resis tant Staphylococcus aureus(AA) 01/19/2025 5:17 PM EST [facility] Comment: For susceptibility results refer to: - [facility]-[id number] Edited result: Previously reported as Staphylococcus aureus on 01/17/2025 at 1327 EST. Staphylococcus aureus has been updated to reportable. Culture 2+ Biotype 2 Methicillin-Resis tant Staphylococcus aureus(AA) 01/19/2025 5:17 PM EST [facility] Comment: For susceptibility results refer to: - [facility]-[id number] Edited result: Previously reported as Staphylococcus aureus on 01/17/2025 at 1327 EST. Staphylococcus aureus has been updated to reportable. Foreign Body Lower back structure / Unknown 01/16/2025 4:14 PM EST 01/16/2025 5:10 PM EST Comment:Pre-op diagnosis: MRSA bacteremia [R78.81, B95.62] Fransisco Gaston MD LAB MICROBIOLOGY - G ENERAL ORDERABLES Final Result Performing Organization Address [facility]/ZIP Co de Phone Number [facility] [address] [place] [address] * Anaerobic Culture (01/16/2025 4:14 PM EST) Culture No anaerobes isolated 01/20/2025 2:57 PM EST [facility] Foreign Body Lower back structure / Unknown 01/16/2025 4:14 PM EST 01/16/2025 5:10 PM EST Comment:Pre-op diagnosis: MRSA bacteremia [R78.81, B95.62] Fransisco Gaston MD LAB MICROBIOLOGY - G ENERAL ORDERABLES Final Result [facility] [address] [place] [address] * Fungal Culture, Routine (01/16/2025 4:05 PM EST) Culture No Fungal Growth at 1 Week 01/24/2025 6:[address] [facility] Abscess Topography unknown / Unknown 01/16/2025 4:05 PM EST 01/16/2025 5:10 PM EST us Cleve Deleon MD LAB MICROBIOLOGY - GENERAL OR DERABLES Final Result [facility] [address] [place] [address] * (ABNORMAL) Abscess Culture and Gram Stain (01/16/2025 4:05 PM EST) Culture Light Growth 01/19/2025 5:17 PM EST [facility] Culture 1+ Biotype 1 Methicillin-Resista nt Staphylococcus aureus(AA) 01/19/2025 5:17 PM EST [facility] Comment: The organism value for this result has been updated. These results have been appended to the previously preliminary verified report. Edited result: Previously reported as Staphylococcus aureus on 01/18/2025 at 1547 EST. Staphylococcus aureus has been updated to reportable. Culture 1+ Biotype 2 Methicillin-Resista nt Staphylococcus aureus(AA) 01/19/2025 5:17 PM EST [facility] Comment: The organism value for this result has been updated. These results have been appended to the previously preliminary verified report. Edited result: Previously reported as Staphylococcus aureus on 01/18/2025 at 1547 EST. Staphylococcus aureus has been updated to reportable. Gram Stain Result Rare Gram positive cocci in pairs and chains(A) 01/19/2025 5:17 PM EST [facility] Gram Stain Result Numerous Polymorphonuclear leukocytes(A) 01/19/2025 5:17 PM EST [facility] Abscess Lower back structure / Unknown 01/16/2025 4:05 PM EST 01/16/2025 5:10 PM EST Comment:Pre-op diagnosis: MRSA bacteremia [R78.81, B95.62] Narrative Organism Antibiotic Method Susceptibility Methicillin-Resistant Staphylococcus aureus Clindamycin SADA <=0.5 ug/ml: Susceptible Methicillin-Resistant Staphylococcus aureus Daptomycin SADA <=1 ug/ml: Susceptible Methicillin-Resistant Staphylococcus aureus Erythromycin SADA >4 ug/ml: Resistant Methicillin-Resistant Staphylococcus aureus Gentamicin SADA <=1 ug/ml: Susceptible Methicillin-Resistant Staphylococcus aureus Linezolid SADA 2 ug/ml: Susceptible Methicillin-Resistant Staphylococcus aureus Minocycline SADA <=1 ug/ml: Susceptible Methicillin-Resistant Staphylococcus aureus Oxacillin SADA >2 ug/ml: Resistant Methicillin-Resistant Staphylococcus aureus Penicillin G SADA >1 ug/ml: Resistant Methicillin-Resistant Staphylococcus aureus Tetracycline SADA <=0.5 ug/ml: Susceptible Methicillin-Resistant Staphylococcus aureus Trimethoprim/Sulfamethoxa zole SADA <=0.5/9.5 ug/ml: Susceptible Methicillin-Resistant Staphylococcus aureus Vancomycin SADA 1 ug/ml: Susceptible Methicillin-Resistant Staphylococcus aureus Clindamycin SADA <=0.5 ug/ml: Susceptible Methicillin-Resistant Staphylococcus aureus Daptomycin SADA <=1 ug/ml: Susceptible Methicillin-Resistant Staphylococcus aureus Erythromycin SADA >4 ug/ml: Resistant Methicillin-Resistant Staphylococcus aureus Gentamicin SADA <=1 ug/ml: Susceptible Methicillin-Resistant Staphylococcus aureus Linezolid SADA 2 ug/ml: Susceptible Methicillin-Resistant Staphylococcus aureus Minocycline SADA <=1 ug/ml: Susceptible Methicillin-Resistant Staphylococcus aureus Oxacillin SADA >2 ug/ml: Resistant Methicillin-Resistant Staphylococcus aureus Penicillin G SADA >1 ug/ml: Resistant Methicillin-Resistant Staphylococcus aureus Tetracycline SADA <=0.5 ug/ml: Susceptible Methicillin-Resistant Staphylococcus aureus Trimethoprim/Sulfamethoxa zole SADA <=0.5/9.5 ug/ml: Susceptible Methicillin-Resistant Staphylococcus aureus Vancomycin SADA 1 ug/ml: Susceptible Fransisco Gaston MD LAB MICROBIOLOGY - G ENERAL ORDERABLES Final Result [facility] [address] [place] [address] * Anaerobic Culture (01/16/2025 4:05 PM EST) Culture No anaerobes isolated 01/20/2025 2:57 PM EST [facility] Abscess Lower back structure / Unknown 01/16/2025 4:05 PM EST 01/16/2025 5:10 PM EST Comment:Pre-op diagnosis: MRSA bacteremia [R78.81, B95.62] us Fransisco Gaston MD LAB MICROBIOLOGY - G ENERAL ORDERABLES Final Result Performing Organization Address City/[facility]/ZIP Co de Phone Number [facility] [address] [place] [address] * (ABNORMAL) POCT glucose meter (01/16/2025 3:19 PM EST) POCT Glucose 123(H) 74 - 99 mg/dL 01/16/2025 3:20 PM EST [facility] Comment:Accuracy of a glucos e result obtained from a capillary whole blood specimen relies upon adequate, non-compromised capillary blood flow. If the capillary glucose result is not consistent with the patient's clinical signs and symptoms, glucose testing should be repeated with either an arterial or venous sample on the glucometer or sent to the main labortory for testing. Comment 01/16/2025 3:20 PM EST [facility] Agricultural Equipment Sales Engineer ID Kingsley Alarcon 01/16/2025 3:20 PM EST [facility] Device ID [id number] 01/16/2025 3:20 PM EST [facility] Specimen Type POC Capillary 01/16/2025 3:20 PM EST [facility] Blood Capillary blood specimen / Unknown 01/16/2025 3:19 PM EST 01/16/2025 3:20 PM EST us Cleve Deleon MD LAB POINT OF CARE TE ST DOCKED DEVICE UNSOLICITED RESULTS Final Result Performing Organization Address City/[facility]/ZIP Co de Phone Number [facility] [address] [place] [address] * (ABNORMAL) POCT glucose meter (01/16/2025 11:52 AM EST) POCT Glucose 119(H) 74 - 99 mg/dL 01/16/2025 11:53 AM EST [facility] Comment:Accuracy of a glucos e result obtained from a capillary whole blood specimen relies upon adequate, non-compromised capillary blood flow. If the capillary glucose result is not consistent with the patient's clinical signs and symptoms, glucose testing should be repeated with either an arterial or venous sample on the glucometer or sent to the main labortory for testing. Comment 01/16/2025 11:53 AM EST [facility] Agricultural Equipment Sales Engineer ID Amandeep Ward 01/16/2025 11:53 AM EST [facility] Device ID [id number] 01/16/2025 11:53 AM EST [facility] Specimen Type POC Capillary 01/16/2025 11:53 AM EST [facility] Blood Capillary blood specimen / Unknown 01/16/2025 11:52 AM EST 01/16/2025 11:53 AM EST us Cleve Deleon MD LAB POINT OF CARE TE ST DOCKED DEVICE UNSOLICITED RESULTS Final Result Performing Organization Address City/[facility] Phone Number [facility] [address] [place] [address] * (ABNORMAL) POCT glucose meter (01/16/2025 6:34 AM EST) [facility] POCT Glucose 142(H) 74 - 99 mg/dL 01/16/2025 6:35 AM EST [facility] Comment:Accuracy of a glucos e result obtained from a capillary whole blood specimen relies upon adequate, non-compromised capillary blood flow. If the capillary glucose result is not consistent with the patient's clinical signs and symptoms, glucose testing should be repeated with either an arterial or venous sample on the glucometer or sent to the main labortory for testing. Comment 01/16/2025 6:35 AM EST [facility] Agricultural Equipment Sales Engineer ID Alice Garber 01/16/2025 6:35 AM EST [facility] Device ID [id number] 01/16/2025 6:35 AM EST [facility] Specimen Type POC Capillary 01/16/2025 6:35 AM EST [facility] Blood Capillary blood specimen / Unknown 01/16/2025 6:34 AM EST 01/16/2025 6:35 AM EST us Demar Jiménez MD LAB POINT OF CARE TE ST DOCKED DEVICE UNSOLICITED RESULTS Final Result [facility] [address] [place] [address] * (ABNORMAL) Urinalysis with reflex microscopic (Culture NOT Included) (01/16/2025 4:51 AM EST) Color, Urine Yellow LAB URINALYSIS - AUTOMATED METHOD 01/16/2025 5:13 AM EST [facility] Clarity, Urine Clear LAB URINALYSIS - AUTOMATED METHOD 01/16/2025 5:13 AM EST [facility] Spec [place], Urine 1.012 1.005 - 1.030 LAB URINALYSIS - AUTOMATED METHOD 01/16/2025 5:13 AM EST [facility] pH, Urine 6.0 5.0 - 8.0 LAB URINALYSIS - AUTOMATED METHOD 01/16/2025 5:13 AM EST [facility] Protein, Urine Negative Negative mg/dL LAB URINALYSIS - AUTOMATED METHOD 01/16/2025 5:13 AM EST [facility] Glucose, Urine >=1000(A) Negative mg/dL LAB URINALYSIS - AUTOMATED METHOD 01/16/2025 5:13 AM EST [facility] Ketones, Urine Negative Negative mg/dL LAB URINALYSIS - AUTOMATED METHOD 01/16/2025 5:13 AM EST [facility] Blood, Urine Negative Negative LAB URINALYSIS - AUTOMATED METHOD 01/16/2025 5:13 AM EST [facility] Bilirubin, Urine Negative Negative LAB URINALYSIS - AUTOMATED METHOD 01/16/2025 5:13 AM EST [facility] Urobilinogen, Urine 0.2 0.2 to 1.0 mg/dL LAB URINALYSIS - AUTOMATED METHOD 01/16/2025 5:13 AM [facility] Leukocytes, Urine Negative Negative LAB URINALYSIS - AUTOMATED METHOD 01/16/2025 5:13 AM EST [facility] Nitrite, Urine Negative Negative LAB URINALYSIS - AUTOMATED METHOD 01/16/2025 5:13 AM [facility] Urine Urine specimen obtained by clean catch procedure / Unknown Non-blood Collection / Unknown 01/16/2025 4:51 AM EST 01/16/2025 5:02 AM EST us Rouzbeh Motiei Langroudi MD LAB URINE ORDERABLES Final Result Performing Organization Address City/[facility] Co de Phone Number [facility] [address] [place] [address] * (ABNORMAL) POCT glucose meter (01/16/2025 1:34 AM EST) POCT Glucose 144(H) 74 - 99 mg/dL 01/16/2025 1:37 AM EST [facility] Comment:Accuracy of a glucos e result obtained from a capillary whole blood specimen relies upon adequate, non-compromised capillary blood flow. If the capillary glucose result is not consistent with the patient's clinical signs and symptoms, glucose testing should be repeated with either an arterial or venous sample on the glucometer or sent to the main labortory for testing. Comment 01/16/2025 1:37 AM EST [facility] Agricultural Equipment Sales Engineer ID Alice Garber 01/16/2025 1:37 AM EST [facility] Device ID [id number] 01/16/2025 1:37 AM EST [facility] Specimen Type POC Capillary 01/16/2025 1:37 AM EST [facility] Blood Capillary blood specimen / Unknown 01/16/2025 1:34 AM EST 01/16/2025 1:37 AM EST us Demar Jiménez MD LAB POINT OF CARE TE ST DOCKED DEVICE UNSOLICITED RESULTS Final Result Performing Organization Address [facility] Co de Phone Number [facility] [address] [place] [address] * Blood Culture (Aerobic/Anaerobet Set) (01/16/2025 1:28 AM EST) Culture No growth at day 5 SADA 01/21/2025 4:02 AM EST [facility] Blood Structure of right hand / Unknown Venipuncture / Unknown 01/16/2025 1:28 AM EST 01/16/2025 3:52 AM EST us Fransisco Gaston MD LAB MICROBIOLOGY - G ENERAL ORDERABLES Final Result Performing Organization Address City/[facility]/ZIP Co de Phone Number [facility] [address] [place] [address] * (ABNORMAL) Hemoglobin A1c (01/16/2025 12:36 AM EST) Hemoglobin A1c 7.8(H) <5.7 % 01/16/2025 10:21 AM EST [facility] Blood Venous blood specimen / Unknown Venipuncture / Unknown 01/16/2025 12:36 AM EST 01/16/2025 12:41 AM EST Narrative [facility] - 01/16/2025 10:21 AM EST HA1C Interpretive Data: Diagnosis of Diabetes: Diabetic > or = 6.5% Pre-diabetic 5.7 to 6.4% Non-diabetic < or = 5.6% Glycemic Targets for Type I and Type II Diabetics: Non- Adults <7.0% Adults <6.0% Children and Adolescents <7.5% Source: [place] [employer]. Standards of medical care in diabetes,2017. Diabetes Care.2017:40 (suppl 1):S1-S135. Naina Dubois APRN LAB BLOOD ORDERABLES Fi nal Result [facility] [address] [place] [address] * Phosphorus (01/16/2025 12:36 AM EST) Phosphorus, Plasma 2.7 2.5 - 4.5 mg/dL 01/16/2025 2:12 AM EST [facility] Blood Venous blood specimen / Unknown Venipuncture / Unknown 01/16/2025 12:36 AM EST 01/16/2025 12:41 AM EST Naina Dubois COMPLIANCE REVIEW SPECIALIST LAB BLOOD ORDERABLES Fi nal Result [facility] [address] [place] [address] * (ABNORMAL) Magnesium (01/16/2025 12:36 AM EST) Magnesium, Plasma 1.7(L) 1.9 - 2.4 mg/dL 01/16/2025 2:12 AM EST [facility] Blood Venous blood specimen / Unknown Venipuncture / Unknown 01/16/2025 12:36 AM EST 01/16/2025 12:41 AM EST Naina Dubois COMPLIANCE REVIEW SPECIALIST LAB BLOOD ORDERABLES Fi nal Result Performing Organization Address [facility] Co de Phone Number [facility] [address] [place] [address] * (ABNORMAL) Procalcitonin (01/16/2025 12:36 AM EST) Procalcitonin, Plasma 0.09(H) <0.09 ng/mL 01/16/2025 2:12 AM EST [facility] Blood Venous blood specimen / Unknown Venipuncture / Unknown 01/16/2025 12:36 AM EST 01/16/2025 12:41 AM EST Narrative [facility] - 01/16/2025 2:12 AM EST Procalcitonin concentrations in healthy individuals are <0.09 ng/mL. Published data support the following interpretive risk assessment: An elevated procalcitonin result does not always indicate sepsis. Various non-infectious conditions are known to increase procalcitonin. Results should be considered in the context of clinical symptoms and other laboratory tests. Procalcitonin >2.0 ng/mL: Concentrations >2.0 ng/mL on the first day of ICU admission are associated with a higher risk of progression to severe sepsis and/or septic shock. The change in PCT over time may help predict 28 day mortality risk. Please consult [email or web address] for more information. Test performed at [facility]. Naina Dubois COMPLIANCE REVIEW SPECIALIST LAB BLOOD ORDERABLES Fi nal Result Performing Organization Address City/[facility] Co de Phone Number [facility] [address] [place] [address] * (ABNORMAL) C-reactive protein (01/16/2025 12:36 AM EST) CRP, Plasma 108.5(H) <=8.0 mg/L 01/16/2025 1:14 AM EST [facility] Blood Venous blood specimen / Unknown Venipuncture / Unknown 01/16/2025 12:36 AM EST 01/16/2025 12:41 AM EST Narrative [facility] - 01/16/2025 1:14 AM EST This CRP test is appropriate for assessment of infection, systemic inflammation and/or tissue injury. To assess cardiovascular disease risk order high sensitivity CRP (CRPH). us Fransisco Gaston MD LAB BLOOD ORDERABLES Final Result Performing Organization Address City/[facility]/ZIP Co de Phone Number [facility] [address] [place] [address] * (ABNORMAL) Sedimentation Rate, Automated (01/16/2025 12:36 AM EST) Sedimentation Rate 96(H) <30 mm/hr 2024 12:58 AM EST [facility] Blood Venous blood specimen / Unknown Venipuncture / Unknown 01/16/2025 12:36 AM EST 01/16/2025 12:41 AM EST Fransisco Gaston MD LAB BLOOD ORDERABLES Final Result Performing Organization Address City/[facility]/ZIP Co de Phone Number [facility] [address] [place] [address] * (ABNORMAL) CBC and Differential (01/16/2025 12:36 AM EST) WBC Count 9.75 3.70 - 10.30 10*3/uL LAB HEMATOLOGY METHOD 01/16/2025 12:50 AM EST [facility] RBC Count 2.94(L) 3.90 - 5.20 10*6/uL LAB HEMATOLOGY METHOD 01/16/2025 12:50 AM EST [facility] HGB 9.4(L) 11.2 - 15.7 g/dL LAB HEMATOLOGY METHOD 01/16/2025 12:50 AM EST [facility] HCT 28.1(L) 34.0 - 45.0 % LAB HEMATOLOGY METHOD 01/16/2025 12:50 AM EST [facility] Platelet Count 338 155 - 369 10*3/uL LAB HEMATOLOGY METHOD 01/16/2025 12:50 AM EST [facility] MCV 96 79 - 98 fL LAB HEMATOLOGY METHOD 01/16/2025 12:50 AM [facility] MCH 32.0 26.0 - 32.0 pg LAB HEMATOLOGY METHOD 01/16/2025 12:50 AM EST [facility] MCHC 33.5 30.7 - 35.5 g/dL LAB HEMATOLOGY METHOD 01/16/2025 12:50 AM EST [facility] RDW 14.2 11.5 - 14.5 % LAB HEMATOLOGY METHOD 01/16/2025 12:50 AM [facility] MPV 9.2 8.8 - 12.5 fL LAB HEMATOLOGY METHOD 01/16/2025 12:50 AM [facility] nRBC 0.0 <=0.0 per 100 WBCs LAB HEMATOLOGY METHOD 01/16/2025 12:50 AM [facility] Differential Type Automated LAB HEMATOLOGY METHOD 01/16/2025 12:50 AM [facility] Neutrophils % 75 % LAB HEMATOLOGY METHOD 01/16/2025 12:50 AM [facility] Lymphocytes % 11 % LAB HEMATOLOGY METHOD 01/16/2025 12:50 AM [facility] Monocytes % 10 % LAB HEMATOLOGY METHOD 01/16/2025 12:50 AM [facility] Eosinophils % 2 % LAB HEMATOLOGY METHOD 01/16/2025 12:50 AM [facility] Basophils % 0 % LAB HEMATOLOGY METHOD 01/16/2025 12:50 AM [facility] Immature Granulocytes % 2 % LAB HEMATOLOGY METHOD 01/16/2025 12:50 AM [facility] Neutrophils Absolute 7.38(H) 1.60 - 6.10 10*3/uL LAB HEMATOLOGY METHOD 01/16/2025 12:50 AM [facility] Lymphocytes Absolute 1.03(L) 1.20 - 3.90 10*3/uL LAB HEMATOLOGY METHOD 01/16/2025 12:50 AM [facility] Monocytes Absolute 0.94(H) 0.30 - 0.90 10*3/uL LAB HEMATOLOGY METHOD 01/16/2025 12:50 AM EST [facility] Eosinophils Absolute 0.22 0.00 - 0.50 10*3/uL LAB HEMATOLOGY METHOD 01/16/2025 12:50 AM EST [facility] Basophils Absolute 0.03 0.00 - 0.10 10*3/uL LAB HEMATOLOGY METHOD 01/16/2025 12:50 AM EST [facility] Immature Granulocytes Absolute 0.15(H) 0.00 - 0.06 10*3/uL LAB HEMATOLOGY METHOD 01/16/2025 12:50 AM EST [facility] Blood Venous blood specimen / Unknown Venipuncture / Unknown 01/16/2025 12:36 AM EST 01/16/2025 12:41 AM EST Narrative [facility] - 01/16/2025 12:50 AM EST Therapeutic decision making should be based on absolute values, rather than percentages. Fransisco Gaston MD LAB BLOOD ORDERABLES Final Result [facility] [address] [place] [address] * (ABNORMAL) Comprehensive Metabolic Panel, Plasma (01/16/2025 12:36 AM EST) Glucose, Plasma 141(H) 74 - 99 mg/dL 01/16/2025 1:14 AM EST [facility] BUN, Plasma 17 8 - 23 mg/dL 01/16/2025 1:14 AM EST [facility] Creatinine, Plasma 0.97 0.60 - 1.10 mg/dL 01/16/2025 1:14 AM EST [facility] BUN/Creatinine Ratio 18 01/16/2025 1:14 AM EST [facility] Sodium, Plasma 137 136 - 145 mmol/L 01/16/2025 1:14 AM EST [facility] Potassium, Plasma 4.1 3.6 - 4.9 mmol/L 01/16/2025 1:14 AM EST [facility] Chloride, Plasma 103 97 - 107 mmol/L 01/16/2025 1:14 AM EST [facility] CO2, Plasma 22 22 - 29 mmol/L 01/16/2025 1:14 AM EST [facility] Anion Gap 12 6 - 16 mmol/L 01/16/2025 1:14 AM EST [facility] Total Calcium, Plasma 9.0 8.9 - 10.2 mg/dL 01/16/2025 1:14 AM EST [facility] Total Protein 6.1(L) 6.3 - 7.9 g/dL 01/16/2025 1:14 AM EST [facility] Albumin, Plasma 2.9(L) 3.5 - 5.2 g/dL 01/16/2025 1:14 AM EST [facility] AST, Plasma 77(H) 10 - 35 U/L 01/16/2025 1:14 AM EST [facility] ALT, Plasma 54(H) 10 - 35 U/L 01/16/2025 1:14 AM EST [facility] Alkaline Phosphatase, Plasma 271(H) 46 - 142 U/L 01/16/2025 1:14 AM EST [facility] Total Bilirubin, Plasma 0.4 0.2 - 1.1 mg/dL 01/16/2025 1:14 AM EST [facility] eGFRcr 61.4 mL/min/1.7 3m*2 01/16/2025 1:14 AM EST [facility] Comment:Reported eGFRcr in m L/min/1.73m2 is based the CKD-EPI 2020 equation that does not use a race coefficient. Blood Venous blood specimen / Unknown Venipuncture / Unknown 01/16/2025 12:36 AM EST 01/16/2025 12:41 AM EST Fransisco Gaston MD LAB BLOOD ORDERABLES Final Result [facility] [address] [place] [address] * (ABNORMAL) APTT (01/16/2025 12:36 AM EST) aPTT 36(H) 25 - 35 sec LAB COAGULATION METHOD 01/16/2025 1:15 AM EST [facility] Blood Venous blood specimen / Unknown Venipuncture / Unknown 01/16/2025 12:36 AM EST 01/16/2025 12:41 AM EST us Fransisco Gaston MD LAB BLOOD ORDERABLES Final Result Performing Organization Address [facility] Co de Phone Number [facility] [address] [place] [address] * (ABNORMAL) Prothrombin Time/INR (01/16/2025 12:36 AM EST) Prothrombin Time 15.3(H) 12.0 - 14.3 sec LAB COAGULATION METHOD 01/16/2025 1:15 AM EST [facility] INR 1.2(H) 0.9 - 1.1 LAB COAGULATION METHOD 01/16/2025 1:[address] [facility] Blood Venous blood specimen / Unknown Venipuncture / Unknown 01/16/2025 12:36 AM EST 01/16/2025 12:41 AM EST Narrative [facility] - 01/16/2025 1:15 AM EST OPTIMAL INR RANGES FOR PATIENT ON ORAL ANTICOAGULANT THERAPY Prevention of venous thromboembolism INR 2.0 to 3.0 In patients with heart disease: Atrial fibrillation INR 2.0 to 3.0 Valvular heart disease INR 2.0 to 3.0 Tissue heart valves INR 2.0 to 3.0 Mechanical prosthetic valves INR 2.5 to 3.5 Prevention of recurrent MD INR 2.5 to 3.5 us Fransisco Gaston MD LAB BLOOD ORDERABLES Final Result Performing Organization Address City/[facility] Co de Phone Number [facility] [address] [place] [address] * Type and Screen (01/16/2025 12:36 AM EST) ABO/Rh A Positive 01/16/2025 12:39 AM EST [facility] Antibody Screen Negative 01/16/2025 12:39 AM EST [facility] Specimen Expiration 01/19/2025 23:59 01/16/2025 12:39 AM EST [facility] Blood Venous blood specimen / Unknown Venipuncture / Unknown 01/16/2025 12:36 AM EST 01/16/2025 12:39 AM EST us Fransisco Gaston MD LAB BLOOD BANK TEST ORDERABLES Final Result BLOOD BANK [address] [place] [address], documented in this encounter Visit Diagnoses Diagnosis Postoperative sepsis (CMS/HCC)- Primary MRSA bacteremia Postoperative sepsis (CMS/HCC) [T81.44XA] Cellulitis of back except buttock Hypertension Unspecified essential hypertension Diabetes mellitus Type II or unspecified type diabetes mellitus without mention of complication, not stated as uncontrolled Mixed hyperlipidemia Cellulitis of back except buttock Major depressive disorder with single episode, in remission (CMS/HCC) MRSA bacteremia MADELEINE (iron deficiency anemia) Unspecified iron deficiency anemia Gastroesophageal reflux disease without esophagitis Esophageal reflux Transaminitis Nonspecific elevation of levels of transaminase or lactic acid dehydrogenase (LDH) Severe obesity (BMI 35.0-39.9) with comorbidity (CMS/HCC) documented in this encounter Admitting Diagnoses Diagnosis Sepsis (CMS/HCC) documented in this encounter Administered Medications Inactive Administered Medications - up to 3 most recent administrations Medication Order MAR Action Action Date Dose Rate Site acetaminophen (Tylenol) tablet 650 mg 650 mg, Oral, Once, 1 dose, On Wed01/16/25 at 0115, Routine Given 01/16/2025 12:29 AM EST 650 mg amitriptyline (Elavil) tablet 25 mg 25 mg, Oral, Nightly, First dose on Wed01/16/25 at 2100, Until Discontinued, Routine Given 01/22/2025 9:43 PM EST 25 mg Given 01/21/2025 9:17 PM EST 25 mg Given 01/20/2025 8:18 PM EST 25 mg carvedilol (Coreg) tablet 25 mg 25 mg, Oral, 2 times daily, First dose on Wed01/16/25 at 0915, Until Discontinued, Routine Given 01/23/2025 8:21 AM EST 25 mg Given 01/22/2025 9:43 PM EST 25 mg Given 01/22/2025 8:42 AM EST 25 mg cefepime (Maxipime) 2 g in sodium chloride 0.9% 100 mL IVPB (vial adapter required) 2 g, Intravenous, Every 12 hours, First dose on Wed01/16/25 at 2200, Until Discontinued, Routine Rate/Dose Verify 01/17/2025 12:00 PM EST 36.7 mL/hr Rate/Dose Verify 01/17/2025 11:00 AM EST 36.7 m L/hr Rate/Dose Verify 01/17/2025 10:00 AM EST 36.7 m L/hr clonazePAM (KlonoPIN) tablet 1 mg 1 mg, Oral, Daily PRN, Starting on Wed01/16/25 at 1344, Until Wed01/23/25 at 1513, anxiety, seizures Given 01/22/2025 8:41 AM EST 1 mg Given 01/20/2025 8:18 PM EST 1 mg Given 01/19/2025 8:30 AM EST 1 mg dextrose 10 % (D10W) bolus 125 mL 125 mL, Intravenous, Every 15 min PRN, Starting on Wed01/16/25 at 0106, Until Wed01/23/25 at 1513, Administer over 15 Minutes, Routine, low blood sugar BG 51-89 mg/dL dextrose 10 % (D10W) bolus 250 mL 250 mL, Intravenous, Every 15 min PRN, Starting on Wed01/16/25 at 0106, Until Wed01/23/25 at 1513, Administer over 15 Minutes, Routine, PRN low blood sugar BG =/<50 mg/dL enoxaparin (Lovenox) syringe 40 mg 40 mg, Subcutaneous, Daily, First dose on Wed01/17/25 at 1245, Until Discontinued, Routine Given 01/23/2025 8:22 AM EST 40 mg Right Lower Abdomen Given 01/22/2025 8:43 AM EST 40 mg Ri ght Lower Abdomen Given 01/21/2025 8:53 AM EST 40 mg Le ft Upper Abdomen ferrous sulfate EC tablet 324 mg 324 mg, Oral, 2 times daily with meals, First dose on Wed01/16/25 at 0830, Until Discontinued Given 01/23/2025 8:21 AM EST 324 mg Given 01/22/2025 5:54 PM EST 324 mg Given 01/22/2025 8:42 AM EST 324 mg glucagon (human recombinant) injection 1 mg 1 mg, Intramuscular, Every 15 min PRN, Starting on Wed01/16/25 at 0106, Until Wed01/23/25 at 1513, Routine, low blood sugar per Hypoglycemia Prevention and Treatment protocol glucose (Glutose) 40 % oral gel 15-30 grams of glucose 15-30 grams of glucose, Sublingual, Every 15 min PRN, Starting on Wed01/16/25 at 0106, Until Wed01/23/25 at 1513, Routine, low blood sugar, per Hypoglycemia Prevention and Treatment protocol HYDROmorphone (Dilaudid) injection 0.5 mg 0.5 mg, Intravenous, Every 3 hours PRN, Starting on Wed01/16/25 at 0017, Until Diane 01/18/25 at 1212, Routine, Moderate Severe Pain with CPOT score of 3 or greater OR FLACC PAINAD NPASS NRS Leiva-Singleton Faces score of 4 or greater OR DVPRS NIPS score of 5 or greater Given 01/16/2025 7:16 PM EST 0.5 mg Given 01/16/2025 12:29 AM EST 0.5 mg HYDROmorphone (Dilaudid) injection 0.5 mg 0.5 mg, Intravenous, Once, 1 dose, On Wed01/16/25 at 2100, Routine Given 01/16/2025 8:29 PM EST 0.5 mg insulin glargine-yfgn 100 UNIT/ML injection 5 Units 5 Units, Subcutaneous, Daily, First dose on Wed01/20/25 at 1315, Until Discontinued, Routine Given 01/23/2025 8:21 AM EST 5 Units Left Upper Arm (Back ) Given 01/22/2025 8:42 AM EST 5 Units Ri ght Lower Abdomen Given 01/21/2025 8:53 AM EST 5 Units Ri ght Upper Abdomen insulin lispro (Admelog) 100 units/mL injection - Correction - Standard Dose 0-5 Units, Subcutaneous, 3 times daily with meals, First dose on Wed01/17/25 at 1245, Until Discontinued, Routine Given 01/22/2025 5:53 PM EST 1 Units Left Lower Abdomen Given 01/22/2025 1:02 PM EST 2 Units Le ft Lower Abdomen Given 01/21/2025 5:33 PM EST 2 Units Le ft Lower Abdomen insulin lispro (Admelog) injection - Correction - Nighttime Dose 0-3 Units, Subcutaneous, 2 times nightly (2100 & 0300), First dose on Wed01/17/25 at 2100, Until Discontinued, Routine insulin regular (HumuLIN R,NovoLIN R) 100 units/mL injection - Correction - Standard Dose 0-5 Units, Subcutaneous, Every 6 hours scheduled, First dose on Wed01/16/25 at 0200, Until Discontinued, Routine Given 01/17/2025 5:30 AM EST 1 Units Right Upper Arm (Catherine k) Given 01/17/2025 12:44 AM EST 1 Units R ight Upper Arm (Back) iohexol (OMNIPaque) 300 MG/ML injection 100 mL 100 mL, Intravenous, Once in imaging, 1 dose, Starting on Wed01/16/25 at 1948, Until Wed01/16/25 at 1949, Routine, Imaging Protocol Orders Given 01/16/2025 7:49 PM EST 100 mL lactated Ringer's infusion 100 mL/hr, Intravenous, Continuous, Starting on Wed01/16/25 at 0200, Until Wed01/16/25 at 1334, Routine New Bag 01/16/2025 3:24 PM EST Rate/Dose Verify 01/16/2025 1:00 PM EST 100 mL/ hr Rate/Dose Verify 01/16/2025 12:00 PM EST 100 mL /hr lactulose (Chronulac) 10 GM/15ML solution 20 g 20 g, Oral, 2 times daily PRN, Starting on 01/21/25 at 1128, Until Wed01/23/25 at 1513, Routine, constipation magnesium sulfate IVPB 2 g 2 g, Intravenous, Once, 1 dose, On Wed01/16/25 at 0300, Routine Rate/Dose Verify 01/16/2025 5:24 AM EST 25 mL/hr New Bag 01/16/2025 3:54 AM EST 2 g 25 mL/hr magnesium sulfate IVPB 2 g 2 g, Intravenous, Once, 1 dose, On Diane 01/18/25 at 1530, Routine New Bag 01/18/2025 3:12 PM EST 2 g 25 mL /hr melatonin tablet 3 mg 3 mg, Oral, Nightly PRN, Starting on Wed01/16/25 at 0107, Until Wed01/23/25 at 1513, Routine, sleep Given 01/22/2025 9:43 PM EST 3 mg Given 01/21/2025 9:17 PM EST 3 mg Given 01/20/2025 8:18 PM EST 3 mg metroNIDAZOLE (Flagyl) tablet 500 mg 500 mg, Oral, Every 8 hours, First dose on Wed01/16/25 at 1845, Until Discontinued, Routine Given 01/17/2025 12:49 PM EST 500 mg Given 01/17/2025 5:24 AM EST 500 mg Given 01/16/2025 10:27 PM EST 500 mg miconazole nitrate ointment Topical, 2 times daily, First dose on Wed01/16/25 at 1315, Until Discontinued, Routine Given 01/23/2025 8:36 AM EST Given 01/22/2025 9:44 PM EST Given 01/22/2025 8:44 AM EST mupirocin (Bactroban) 2 % ointment 1 Application Each Nostril, 2 times daily, 10 doses, First dose on Wed01/16/25 at 0130, Last dose on Wed01/20/25 at 0900, Routine Given 01/20/2025 8:30 AM EST 1 Application Given 01/19/2025 9:16 PM EST 1 Application Given 01/19/2025 8:31 AM EST 1 Application NIFEdipine XL (Procardia XL) 24 hr tablet 30 mg 30 mg, Oral, Daily, First dose on Wed01/16/25 at 1030, Until Discontinued, Routine Given 01/23/2025 8:21 AM EST 30 mg Given 01/22/2025 8:42 AM EST 30 mg Given 01/21/2025 8:53 AM EST 30 mg nystatin (Mycostatin) [id number] UNIT/GM powder 1 Application Topical, 2 times daily, First dose on Wed01/16/25 at 0900, Until Discontinued, Routine Given 01/23/2025 8:25 AM EST 1 Application Given 01/22/2025 9:44 PM EST 1 Application Given 01/22/2025 8:44 AM EST 1 Application ondansetron (Zofran) 4 MG/5ML solution 4 mg 4 mg, Oral, Every 6 hours PRN, Starting on Wed01/16/25 at 0106, Until Wed01/23/25 at 1513, Routine, nausea, vomiting ondansetron (Zofran) injection 4 mg 4 mg, Intravenous, Every 6 hours PRN, Starting on Wed01/16/25 at 0106, Until Wed01/23/25 at 1513, Routine, vomiting, nausea ondansetron ODT (Zofran-ODT) disintegrating tablet 4 mg 4 mg, Oral, Every 6 hours PRN, Starting on Wed01/16/25 at 0106, Until Wed01/23/25 at 1513, Routine, nausea, vomiting oxyCODONE (Roxicodone) immediate release tablet 5 mg 5 mg, Oral, Every 6 hours PRN, Starting on Wed01/16/25 at 0017, Until Wed01/23/25 at 1513, Routine, Moderate Severe Pain with CPOT score of 3 or greater OR FLACC PAINAD NPASS NRS Leiva-Singleton Faces score of 4 or greater OR DVPRS NIPS score of 5 or greater Given 01/22/2025 9:43 PM EST 5 mg Given 01/22/2025 8:41 AM EST 5 mg Given 01/21/2025 9:17 PM EST 5 mg oxyCODONE (Roxicodone) immediate release tablet 5 mg 5 mg, Oral, Every 30 min PRN, 2 doses, Starting on Wed01/16/25 at 1627, Until Wed01/16/25 at 1838, Routine, Recovery (Phase I only), Moderate Severe Pain with CPOT score of 3 or greater OR FLACC PAINAD NPASS NRS Leiva-Singleton Faces score of 4 or greater OR DVPRS NIPS score of 5 or greater, DVPRS >/= 5, CPOT >/= 3, FLACC >/= 4, PAINAD >/= 4 Given 01/16/2025 5:44 PM EST 5 mg pantoprazole (Protonix) EC tablet 40 mg 40 mg, Oral, 2 times daily, First dose on Wed01/16/25 at 0900, Until Discontinued, Routine Given 01/23/2025 8:20 AM EST 40 mg Given 01/22/2025 9:43 PM EST 40 mg Given 01/22/2025 8:41 AM EST 40 mg phosphorus (K Phos Neutral) tablet 2 tablet 2 tablet, Oral, Every 8 hours, 3 doses, First dose on Wed01/18/25 at 1530, Last dose on Wed01/19/25 at 0730, Routine Given 01/19/2025 8:30 AM EST 2 tabl ets Given 01/19/2025 12:14 AM EST 2 tablets Given 01/18/2025 3:06 PM EST 2 tablets polyethylene glycol (Miralax) packet 17 g 17 g, Oral, Daily, First dose on Wed01/21/25 at 1215, Until Discontinued, Routine Given 01/23/2025 8:21 AM EST 17 g Given 01/22/2025 8:41 AM EST 17 g Given 01/21/2025 12:32 PM EST 17 g Povidone-Iodine 5 % swab solution 1 Application Nasal, Once, 1 dose, On Wed01/16/25 at 1545, Routine Given 01/16/2025 3:00 PM EST 1 Application rosuvastatin (Crestor) tablet 10 mg 10 mg, Oral, Daily, First dose on Wed01/16/25 at 0900, Until Discontinued Given 01/23/2025 8:20 AM EST 10 mg Given 01/22/2025 8:41 AM EST 10 mg Given 01/21/2025 9:33 AM EST 10 mg senna-docusate (Rebecca-Colace) 8.6-50 MG per tablet 1 tablet 1 tablet, Oral, 2 times daily, First dose on Wed01/21/25 at 1215, Until Discontinued, Routine Given 01/23/2025 8:20 AM EST 1 tablet Given 01/22/2025 9:43 PM EST 1 tablet Given 01/22/2025 8:42 AM EST 1 tablet sodium chloride 0.9 % flush 10 mL 10 mL, Intravenous, Every 12 hours, First dose on Wed01/16/25 at 0130, Until Discontinued, Routine Given 01/19/2025 12:34 PM EST 10 mL Given 01/19/2025 2:06 AM EST 10 mL Given 01/18/2025 2:36 AM EST 10 mL sodium chloride 0.9 % flush 10 mL 10 mL, Intravenous, Every 1 hour PRN, Starting on Wed01/16/25 at 0034, Until Wed01/23/25 at 1513, Routine, Flush Before and After EVERY dose of medication. sodium chloride 0.9 % flush 10 mL 10 mL, Intravenous, Every 12 hours, First dose on Wed01/16/25 at 0200, Until Discontinued, Routine Given 01/22/2025 2:08 PM EST 10 mL Given 01/20/2025 3:23 AM EST 10 mL Given 01/19/2025 1:02 PM EST 10 mL sodium chloride 0.9 % flush 10 mL 10 mL, Intravenous, As needed, Starting on Wed01/16/25 at 0102, Until Wed01/23/25 at 1513, Routine, line care sodium chloride 0.9 % flush 10 mL 10 mL, Intravenous, Every 12 hours, First dose on Wed01/16/25 at 1545, Until Discontinued, Routine, Holding - Preprocedure Given 01/16/2025 3:00 PM EST 10 mL sodium chloride 0.9 % flush 20 mL 20 mL, Intravenous, Every 1 hour PRN, Starting on Wed01/16/25 at 0034, Until Wed01/23/25 at 1513, Routine, After blood draws and if any blood seen in tubing. sodium chloride 0.9 % infusion 10 mL/hr, Intravenous, Continuous, Starting on Wed01/16/25 at 2315, Until Wed01/23/25 at 1513, Routine Rate/Dose Verify 01/22/2025 7:00 PM EST 10 mL/hr Rate/Dose Verify 01/22/2025 5:44 AM EST 10 mL/h r Rate/Dose Verify 01/22/2025 5:43 AM EST 10 mL/h r vancomycin (Vancocin) 1,250 mg in sodium chloride 0.9% 250 mL IVPB (vial adapter required) 1,250 mg, Intravenous, Every 24 hours, First dose (after last modification) on 01/20/25 at 0230, Until Discontinued, at 220 mL/hr, Routine New Bag 01/21/2025 3:11 AM EST 1,250 mg 220 mL/hr Rate/Dose Verify 01/20/2025 4:00 AM EST 220 mL/ hr New Bag 01/20/2025 3:10 AM EST 1,250 mg 220 mL/hr vancomycin (Vancocin) 1,250 mg in sodium chloride 0.9% 250 mL IVPB (vial adapter required) 1,250 mg, Intravenous, Every 24 hours, First dose (after last modification) on 01/22/25 at 0300, Until Discontinued, at 220 mL/hr, Routine New Bag 01/23/2025 2:18 AM EST 1,250 mg 220 mL/hr Rate/Dose Verify 01/22/2025 4:00 AM EST 220 mL/ hr New Bag 01/22/2025 3:06 AM EST 1,250 mg 220 mL/hr vancomycin (Vancocin) 1,500 mg in sodium chloride 0.9% 250 mL IVPB (vial adapter required) 1,500 mg, Intravenous, Every 24 hours, First dose on Wed01/17/25 at 0130, Until Discontinued, at 183.3 mL/hr, Routine Rate/Dose Verify 01/19/2025 4:00 AM EST 183 mL/hr New Bag 01/19/2025 3:00 AM EST 1,500 mg 183.3 mL/hr New Bag 01/18/2025 2:35 AM EST 1,500 mg 183.3 mL/hr vancomycin (Vancocin) 2,500 mg in sodium chloride 0.9 % 500 mL IVPB 2,500 mg (rounded from 2,420 mg = 25 mg/kg 96.8 kg), Intravenous, Once, 1 dose, On Wed01/16/25 at 0115, at 228 mL/hr, STAT Given 01/16/2025 1:36 AM EST 2,500 mg 228 mL/hr Vortioxetine HBr (Trintellix) tablet 20 mg 20 mg, Oral, Daily, First dose on Wed01/16/25 at 0900, Until Discontinued Given 01/23/2025 8:21 AM EST 20 mg Given 01/22/2025 8:40 AM EST 20 mg Given 01/21/2025 8:52 AM EST 20 mg documented in this encounter Active and Recently Administered Medications Times are shown in EST. Scheduled Medication Order 01/21/2025 01/22/2025 01/23/2025 amitriptyline (Elavil) tablet 25 mg 25 mg, Oral, Nightly, First dose on Wed01/16/25 at 2100, Until Discontinued, Routine 2116 (Given - Provider: Christina Fritz, RAI) 2142 (Given - Provider: Christina Fritz, RAI) carvedilol (Coreg) tablet 25 mg 25 mg, Oral, 2 times daily, First dose on Wed01/16/25 at 0915, Until Discontinued, Routine 0853 (Given - Provider: David Wheeler RN)2116 (Given - Provider: Christina Fritz, RN) 0842 (Given - Provider: Felisa Whitlock, RAI)214 (Given - Provider: Christina Fritz RN) 0821 (Given - Provider: Ariadne Adame, RAI) enoxaparin (Lovenox) syringe 40 mg 40 mg, Subcutaneous, Daily, First dose on Wed01/17/25 at 1245, Until Discontinued, Routine 0853 (Given - Provider: David Wheeler RN) 0843 (Given - Provider: Felisa Whitlock RN) 0822 (Given - Provider: Ariadne Adame, RN) ferrous sulfate EC tablet 324 mg 324 mg, Oral, 2 times daily with meals, First dose on Wed01/16/25 at 0830, Until Discontinued 0852 (Given - Provider: David Wheeler RN)1733 (Given - Provider: David Wheeler RN) 0842 (Given - Provider: Felisa Whitlock RN)1754 (Given - Provider: Felisa Whitlock RN) 0821 (Given - Provider: Ariadne Adame RN) insulin glargine-yfgn 100 UNIT/ML injection 5 Units 5 Units, Subcutaneous, Daily, First dose on Wed01/20/25 at 1315, Until Discontinued, Routine 0853 (Given - Provider: David Wheeler RN) 0842 (Given - Provider: Felisa Whitlock RN) 0821 (Given - Provider: Ariadne Adame, RAI) insulin lispro (Admelog) 100 units/mL injection - Correction - Standard Dose 0-5 Units, Subcutaneous, 3 times daily with meals, First dose on Wed01/17/25 at 1245, Until Discontinued, Routine 0854 (Not Given - Provider: David Wheeler RN - Reason: Order parameters not met)1232 (Given - Provider: David Wheeler RN)1733 (Given - Provider: David Wheeler RN) 0844 (Not Given - Provider: Felisa Whitlock RN - Reason: Order parameters not met)1302 (Given - Provider: Felisa Whitlock, RAI)1753 (Given - Provider: Felisa Whitlock RN) 0818 (Not Given - Provider: Ariadne Adame RN - Reason: Order parameters not met)1230 (Canceled Entry - Provider: Automatic Discharge Provider - Comment: Automatically canceled at discontinue of medication order) insulin lispro (Admelog) injection - Correction - Nighttime Dose 0-3 Units, Subcutaneous, 2 times nightly (2100 & 030), First dose on Wed01/17/25 at 2100, Until Discontinued, Routine 0335 (Not Given - Provider: Christina Fritz RN - Reason: Order parameters not met)223 (Not Given - Provider: Christina Fritz RN - Reason: Order parameters not met) 030 (Not Given - Provider: Christina Fritz RN - Reason: Order parameters not met)204 (Not Given - Provider: Christina Fritz RN - Reason: Order parameters not met) 0247 (Not Given - Provider: Christina Fritz RN - Reason: Order parameters not met) miconazole nitrate ointment Topical, 2 times daily, First dose on Wed01/16/25 at 1315, Until Discontinued, Routine 0854 (Given - Provider: David Wheeler RN)2116 (Given - Provider: Christina Fritz RN) 08 (Given - Provider: Felisa Whitlock, RAI)2143 (Given - Provider: Christina Fritz RN) 0836 (Given - Provider: Ariadne Adame, RAI) NIFEdipine XL (Procardia XL) 24 hr tablet 30 mg 30 mg, Oral, Daily, First dose on Wed01/16/25 at 1030, Until Discontinued, Routine 0853 (Given - Provider: David Wheeler RN) 0842 (Given - Provider: Felisa Whitlock, RAI) 0821 (Given - Provider: Ariadne Adame RN) nystatin (Mycostatin) [id number] UNIT/GM powder 1 Application Topical, 2 times daily, First dose on Wed01/16/25 at 0900, Until Discontinued, Routine 0853 (Given - Provider: David Wheeler RN)2116 (Given - Provider: Christina Fritz RN) 0844 (Given - Provider: Felisa Whitlock, RAI)2143 (Given - Provider: Christina Fritz RN) 0825 (Given - Provider: Ariadne Adame, RAI) pantoprazole (Protonix) EC tablet 40 mg 40 mg, Oral, 2 times daily, First dose on Wed01/16/25 at 0900, Until Discontinued, Routine 0853 (Given - Provider: David Wheeler RN)2116 (Given - Provider: Christina Fritz RN) 0841 (Given - Provider: Felisa Whitlock RN)214 (Given - Provider: Christina Fritz RN) 0820 (Given - Provider: Ariadne Adame, RN) polyethylene glycol (Miralax) packet 17 g 17 g, Oral, Daily, First dose on Wed01/21/25 at 1215, Until Discontinued, Routine 1232 (Given - Provider: David Wheeler RN) 0841 (Given - Provider: Felisa Whitlock, RAI) 0821 (Given - Provider: Ariadne Adame, RN) rosuvastatin (Crestor) tablet 10 mg 10 mg, Oral, Daily, First dose on Wed01/16/25 at 0900, Until Discontinued 0933 (Given - Provider: David Wheeler RN) 0841 (Given - Provider: Felisa Whitlock RN) 0820 (Given - Provider: Ariadne Adame RN) senna-docusate (Rebecca-Colace) 8.6-50 MG per tablet 1 tablet 1 tablet, Oral, 2 times daily, First dose on Wed01/21/25 at 1215, Until Discontinued, Routine 1232 (Given - Provider: David Wheeler RN)2116 (Given - Provider: Christina Fritz RN) 0842 (Given - Provider: Felisa Whitlock RN)2142 (Given - Provider: Christina Fritz RN) 0820 (Given - Provider: Ariadne Adame RN) sodium chloride 0.9 % flush 10 mL 10 mL, Intravenous, Every 12 hours, First dose on Wed01/16/25 at 0130, Until Discontinued, Routine 0150 (Canceled Entry - Provider: Christina Fritz RN)1326 (Not Given - Provider: David Wheeler RN - Reason: Patient/Family/Repre sentative Refused) 0119 (Canceled Entry - Provider: Christina Fritz RN)1255 (Canceled Entry - Provider: Felisa Whitlock RN) 0130 (Canceled Entry - Provider: Felisa Whitlock RN)1330 (Canceled Entry - Provider: Automatic Discharge Provider - Comment: Automatically canceled at discontinue of medication order) sodium chloride 0.9 % flush 10 mL(Linked Group 1) 10 mL, Intravenous, Every 12 hours, First dose on Wed01/16/25 at 0200, Until Discontinued, Routine 0335 (Canceled Entry - Provider: Christina Fritz RN)1334 (Not Given - Provider: David Wheeler RN - Reason: Patient/Family/Repre sentative Refused) 0144 (Canceled Entry - Provider: Christina Fritz RN)1408 (Given - Provider: Felisa Whitlock, RAI) 0200 (Canceled Entry - Provider: Felisa Whitlock RN)1400 (Canceled Entry - Provider: Automatic Discharge Provider - Comment: Automatically canceled at discontinue of medication order) vancomycin (Vancocin) 1,250 mg in sodium chloride 0.9% 250 mL IVPB (vial adapter required) (CANCELED) 1,250 mg, Intravenous, Every 24 hours, First dose (after last modification) on Wed01/20/25 at 0230, Until Discontinued, at 220 mL/hr, Routine 0311 (New Bag - Provider: Christina Fritz RN)0426 (Stopped - Provider: David Wheeler RN) vancomycin (Vancocin) 1,250 mg in sodium chloride 0.9% 250 mL IVPB (vial adapter required) 1,250 mg, Intravenous, Every 24 hours, First dose (after last modification) on Wed01/22/25 at 0300, Until Discontinued, at 220 mL/hr, Routine 0306 (New Bag - Provider: Christina Fritz RN)0400 (Rate/Dose Verify - Provider: Christina Fritz RN)0421 (Stopped - Provider: Christina Fritz RN) 0218 (New Bag - Provider: Christina Fritz RN) Vortioxetine HBr (Trintellix) tablet 20 mg 20 mg, Oral, Daily, First dose on Wed01/16/25 at 0900, Until Discontinued 0852 (Given - Provider: David Wheeler RN) 0840 (Given - Provider: Felisa Whitlock RN) 0821 (Given - Provider: Ariadne Adame RN) Continuous Medication Order 01/21/2025 01/22/2025 01/23/2025 sodium chloride 0.9 % infusion 10 mL/hr, Intravenous, Continuous, Starting on Wed01/16/25 at 2315, Until Wed01/23/25 at 1513, Routine 0311 (Paused - Provider: David Wheeler RN)0426 (Restarted - Provider: David Wheeler RN)0855 (Paused - Provider: David Wheeler RN)0857 (Restarted - Provider: David Wheeler RN)1913 (Rate/Dose Verify - Provider: David Wheeler RN)2000 (Rate/Dose Verify - Provider: Christina Fritz RN)2100 (Rate/Dose Verify - Provider: Christina Fritz RN)2200 (Rate/Dose Verify - Provider: Christina Fritz RN)2300 (Rate/Dose Verify - Provider: Christina Fritz RN) 0000 (Rate/Dose Verify - Provider: Christina Fritz RN)0100 (Rate/Dose Verify - Provider: Christina Fritz RN)0200 (Rate/Dose Verify - Provider: Christina Fritz RN)0300 (Rate/Dose Verify - Provider: Christina Fritz RN)0306 (Paused - Provider: Christina Fritz RN)0421 (Restarted - Provider: Christina Fritz RN)0500 (Rate/Dose Verify - Provider: Christina Fritz RN)0502 (Paused - Provider: Christina Fritz RN)0503 (Restarted - Provider: Christina Fritz RN)0504 (Paused - Provider: Christina Fritz RN)0506 (Restarted - Provider: Christina Fritz RN)0543 (Rate/Dose Verify - Provider: Christina Fritz RN)0544 (Rate/Dose Verify - Provider: Christina Fritz RN)1900 (Rate/Dose Verify - Provider: Christina Fritz RN) PRN Medication Order 01/21/2025 01/22/2025 01/23/2025 bisacodyl (Dulcolax) EC tablet 10 mg 10 mg, Oral, Daily PRN, Starting on Wed01/16/25 at 0107, Until Wed01/23/25 at 1513, Routine, constipation clonazePAM (KlonoPIN) tablet 1 mg 1 mg, Oral, Daily PRN, Starting on Wed01/16/25 at 1344, Until Wed01/23/25 at 1513, anxiety, seizures 0841 (Given - Provider: Felisa Whitlock RN) dextrose 10 % (D10W) bolus 125 mL(Linked Group 2) 125 mL, Intravenous, Every 15 min PRN, Starting on Wed01/16/25 at 0106, Until Wed01/23/25 at 1513, Administer over 15 Minutes, Routine, low blood sugar BG 51-89 mg/dL dextrose 10 % (D10W) bolus 250 mL(Linked Group 2) 250 mL, Intravenous, Every 15 min PRN, Starting on Wed01/16/25 at 0106, Until Wed01/23/25 at 1513, Administer over 15 Minutes, Routine, PRN low blood sugar BG =/<50 mg/dL glucagon (human recombinant) injection 1 mg(Linked Group 2) 1 mg, Intramuscular, Every 15 min PRN, Starting on Wed01/16/25 at 0106, Until Wed01/23/25 at 1513, Routine, low blood sugar per Hypoglycemia Prevention and Treatment protocol glucose (Glutose) 40 % oral gel 15-30 grams of glucose(Linked Group 2) 15-30 grams of glucose, Sublingual, Every 15 min PRN, Starting on Wed01/16/25 at 0106, Until Wed01/23/25 at 1513, Routine, low blood sugar, per Hypoglycemia Prevention and Treatment protocol ipratropium-albuterol (Duo-Neb) 0.5-2.5 mg/3 mL nebulizer solution 3 mL 3 mL, Nebulization, Every 6 hours PRN, Starting on Wed01/16/25 at 0105, Until Wed01/23/25 at 1513, Routine, wheezing, shortness of breath lactulose (Chronulac) 10 GM/15ML solution 20 g 20 g, Oral, 2 times daily PRN, Starting on Wed01/21/25 at 1128, Until Wed01/23/25 at 1513, Routine, constipation melatonin tablet 3 mg 3 mg, Oral, Nightly PRN, Starting on Wed01/16/25 at 0107, Until Wed01/23/25 at 151, Routine, sleep 2116 (Given - Provider: Christina Fritz RN) 2142 (Given - Provider: Christina Fritz RN) ondansetron (Zofran) 4 MG/5ML solution 4 mg(Linked Group 3) 4 mg, Oral, Every 6 hours PRN, Starting on Wed01/16/25 at 0106, Until Wed01/23/25 at 151, Routine, nausea, vomiting ondansetron (Zofran) injection 4 mg(Linked Group 3) 4 mg, Intravenous, Every 6 hours PRN, Starting on Wed01/16/25 at 0106, Until Wed01/23/25 at 151, Routine, vomiting, nausea ondansetron ODT (Zofran-ODT) disintegrating tablet 4 mg(Linked Group 3) 4 mg, Oral, Every 6 hours PRN, Starting on Wed01/16/25 at 0106, Until Wed01/23/25 at 151, Routine, nausea, vomiting oxyCODONE (Roxicodone) immediate release tablet 5 mg 5 mg, Oral, Every 6 hours PRN, Starting on Wed01/16/25 at 0017, Until Wed01/23/25 at 151, Routine, Moderate Severe Pain with CPOT score of 3 or greater OR FLACC PAINAD NPASS NRS Leiva-Singleton Faces score of 4 or greater OR DVPRS NIPS score of 5 or greater 2116 (Given - Provider: Christina Fritz RN) 840 (Given - Provider: Felisa Whitlock RN)2142 (Given - Provider: Christina Fritz RN) simethicone (Mylicon) chewable tablet 80 mg 80 mg, Oral, 4 times daily PRN, Starting on Wed01/16/25 at 0106, Until Wed01/23/25 at 151, Routine, flatulence sodium chloride 0.9 % flush 10 mL 10 mL, Intravenous, Every 1 hour PRN, Starting on Wed01/16/25 at 0034, Until Wed01/23/25 at 151, Routine, Flush Before and After EVERY dose of medication. sodium chloride 0.9 % flush 10 mL(Linked Group 1) 10 mL, Intravenous, As needed, Starting on Wed01/16/25 at 0102, Until Wed01/23/25 at 1513, Routine, line care sodium chloride 0.9 % flush 20 mL 20 mL, Intravenous, Every 1 hour PRN, Starting on Wed01/16/25 at 0034, Until Wed01/23/25 at 1513, Routine, After blood draws and if any blood seen in tubing. Linked Groups Order Group 1: Insert peripheral IV (CANCELED) Once, On Wed01/16/25 at 010, For 1 occurrence And Saline lock IV (CANCELED) Once, On Wed01/16/25 at 010, For 1 occurrence And sodium chloride 0.9 % flush 10 mLJump to med 10 mL, Intravenous, Every 12 hours, First dose on Wed01/16/25 at 0200, Until Discontinued, Routine And sodium chloride 0.9 % flush 10 mLJump to med 10 mL, Intravenous, As needed, Starting on Wed01/16/25 at 0102, Until Wed01/23/25 at 1513, Routine, line care Group 2: glucose (Glutose) 40 % oral gel 15-30 grams of glucoseJump to med 15-30 grams of glucose, Sublingual, Every 15 min PRN, Starting on Wed01/16/25 at 0106, Until Wed01/23/25 at 1513, Routine, low blood sugar, per Hypoglycemia Prevention and Treatment protocol Or dextrose 10 % (D10W) bolus 125 mLJump to med 125 mL, Intravenous, Every 15 min PRN, Starting on Wed01/16/25 at 0106, Until Wed01/23/25 at 1513, Administer over 15 Minutes, Routine, low blood sugar BG 51-89 mg/dL Or dextrose 10 % (D10W) bolus 250 mLJump to med 250 mL, Intravenous, Every 15 min PRN, Starting on Wed01/16/25 at 0106, Until Wed01/23/25 at 1513, Administer over 15 Minutes, Routine, PRN low blood sugar BG =/<50 mg/dL Or glucagon (human recombinant) injection 1 mgJump to med 1 mg, Intramuscular, Every 15 min PRN, Starting on Wed01/16/25 at 0106, Until Wed01/23/25 at 1513, Routine, low blood sugar per Hypoglycemia Prevention and Treatment protocol Group 3: ondansetron ODT (Zofran-ODT) disintegrating tablet 4 mgJump to med 4 mg, Oral, Every 6 hours PRN, Starting on Wed01/16/25 at 0106, Until Wed01/23/25 at 1513, Routine, nausea, vomiting Or ondansetron (Zofran) injection 4 mgJump to med 4 mg, Intravenous, Every 6 hours PRN, Starting on Wed01/16/25 at 0106, Until Wed01/23/25 at 1513, Routine, vomiting, nausea Or ondansetron (Zofran) 4 MG/5ML solution 4 mgJump to med 4 mg, Oral, Every 6 hours PRN, Starting on Wed01/16/25 at 0106, Until Wed01/23/25 at 1513, Routine, nausea, vomiting documented in this encounter Additional Health Concerns 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
--- OUTSIDE RECORDS SUMMARY | 2025-01-16 15:00 | XMS_ITS | Encounter Summary ---
Author Organization Healthcare Address [address] [place] [address] Care Team Providers Care Mortgage Assistant Name Role Phone Chase Gunn MD Primary Care Provider [phone] Reason for Visit * Auth/Cert (Routine) Specialty Diagnoses / Procedures Referred By Contac t Referred To Contact Diagnoses Sepsis (CMS/HCC) infected spinal cord stimulator, MRSA Demar Jiménez MD [address] [place] [address] Phone: tel: fax: [facility]patient [address] [place] [address] Referral ID Status Reason Start Date Expiration Date Visits Re quested Visits Authorized [id number] 1 1 Encounter Details Date Type Department Care Team (Late st Contact Info) Description 01/16/2025 3:00 PM EST - 01/16/2025 5:10 PM EST Surgery [facility] OPERATING ROOM [address] [place] [id number] Fransisco Farley MD [address] [facility] [address] [place] [id number] EXPLORATION, WOUND, POSSIBLE SCS REMOVAL/REVISION, ALL OTHER [...] any time in the past 12 m [facility], were you homeless or living in a correction (including now)? No 01/16/2025 [facility] Utilities Answer Date Recorded In the past [...] Ariadne Giles RN * BMI (Calculated) Answer Date of [...] Author -0.32 01/22/2025 6:00 AM Nancy Kuhn * IBW in kg (Bariatric) Answer Date [...] Date of Assessment Author lightweight bedding;lightweight clothing 8:51 PM Christina Lovell, RAI * Trust Relationship/Rapport Answer Date of Assessment [...] Christina Lovell RN * Outcome Evaluation Answer Date of Assessment [...] adjusted;oxygen therapy provided 01/18/2025 8:00 AM Felisa Sidhu, RAI * Activity and Hygiene Care Question Answer Date of Assessment Author Oral Care oral rinse provided 01/22/2025 7:48 AM Felisa Chery RN * Discharge Needs Assessment Question Answer Date of Assessment Author Discharge Facility/Level of Care Needs 3-Intermediate Facility 01/23/2025 10:09 AM Amanda Ford RN Equipment Needed After Discharge other (see comments) 01/23/2025 10:09 AM Amanda Ford RN Discharge Coordination/Progress Going to [facility] 01/23/2025 10:09 AM Amanda Ford RN Equipment Currently Used at Home walker, rollator;shower chair 01/23/2025 10:09 AM Amanda Ford RN Current Outpatient/Agency/Support Group clinic(s);DME 01/23/2025 10:09 AM Amanda Ford RN Anticipated Changes Related to Illness none 01/23/2025 10:09 AM Amanda Ford RN Concerns Comments Patient is going to [facility] where they can assist with care coordination. 01/23/2025 10:09 AM Amanda Ford RN Transportation Anticipated other (see comments) 01/23/2025 10:09 AM Amanda Ford RN Outpatient/Agency/Support Group Needs intermediate facility;OT, PT, SECURITY PATROL OFFICER 01/23/2025 10:09 AM Amanda Ford RN Transportation [...] RN Patient/Family Anticipated Services at Transition rehabilitation services;intermediate 01/23/2025 10:09 AM Amanda Ford RN Patient's Choice of Community Agency(s) [facility] 01/23/2025 10:09 AM Amanda [...] RN What day is the transport expected? [id number] 01/23/2025 10:09 AM Amanda Ford RN What time is the transport expected? [id number] 01/23/2025 10:09 AM Amanda Ford RN Who [...] of Assessment Author -.316 01/22/2025 6:00 AM ZULY Nancy Garber * Precautions Question Answer Date of Assessment Author Medical Precautions Fall precautions;Sei zure precautions 01/18/2025 11:05 AM Dianelys Benson * Date of OT Session Question Answer Date of Assessment Author OT Initials KF 01/18/2025 11:05 AM Dianelys Guan * Participants in Care Question Answer Date of Assessment Author Supervisor Cold Rolling N/A 01/18/2025 11:05 AM Dianelys Guan Family/Caregiver [...] Answer Date of Assessment Author Level of [place] Dependent 01/18/2025 11:00 AM Aspen Bensonberly Physical/Nonphysical Assist Verbal Cues;Nonverbal cues (demo/gestures);Maxim al cues;Additional assist utilized for safety 01/18/2025 11:00 AM Dianelys Benson * Bed Mobility Exam: Supine to Sit Question Answer Date of Assessment Author Level of [place] Moderate assist (5 0% patient's effort) 01/18/2025 11:00 AM Dianelys Benson Physical/Nonphysical Assist HOB elevated;Moderate cues;Verbal Cues 01/18/2025 11:00 AM Aspen Bensonberly Assistive Device Bed rails 01/18/2025 11:0 0 AM Dianelys Benson * Transfer Exam: Sit to stand Question Answer Date of Assessment Author Level of [place] Moderate assist (5 0% patient's effort) 01/18/2025 11:00 AM Dianelys Benson Physical/Nonphysical Assist Verbal Cues;Maximal cues;Additional assist utilized for safety 01/18/2025 11:00 AM Dianelys Benson Assistive Device Walker, rolling 01/18/2025 11:0 0 AM Dianelys Benson * Transfer Exam: Stand to Sit Question Answer Date of Assessment Author Level of [place] Moderate assist (5 0% patient's effort) 01/18/2025 11:00 AM Dianelys Benson Physical/Nonphysical Assist Verbal Cues;Maximal cues;Additional assist utilized for safety 01/18/2025 11:00 AM Aspen Bensonberly Assistive Device Walker, rolling 01/18/2025 11:0 0 AM Dianelys Benson * Transfer Exam: Bed to Chair/Chair to Bed Question Answer Date of Assessment Author Type of Transfer Sidesteps 01/18/2025 11:0 0 AM Dianelys Benson Level of [place] Moderate assist (5 0% patient's effort) 01/18/2025 11:00 AM Aspen Bensonberly Physical/Nonphysical Assist Verbal Cues;Maximal cues;Additional assist utilized for safety 01/18/2025 11:00 AM EST Aspen Mendozaberly Assistive Device Walker, rolling 01/18/2025 11:0 0 [...] of Assessment Author Next PT Re-Assessment Date [id number] 01/18/2025 10: 24 AM Micheal Roque Date of PT Session [id number] 01/18/2025 10:24 AM Micheal Hilliard Patient/Family Goals Statement Return home. 01/18/2025 10:24 AM Katelyn Roque * Plan Question Answer Date of Assessment Author Predicted Duration of Therapy 2 weeks 01/18/2025 10:24 AM Micheal Roque Discharge Recommendation Acute rehab 025 10:24 AM Micheal Roque Equipment Recommended Defer to facility 01/19/20 10:24 AM Micheal Roque Planned PT Interventions [...] Score Question Answer Date of Assessment Author HLM Daily Mobility Goal 2 01/19/2025 8:0 0 AM Scar Shahid RN HLM Daily Mobility Score 2 01/19/2025 8: 00 AM Scar Shahid RN * Plan of Care Reviewed With Answer Date of Assessment Author patient 01/22/2025 8:51 PM Christina Lovell, RAI * Pressure Injury Prevention (PIP) Interventions Question Answer Date of Assessment Author Pressure Reducing Devices Specialty bed;Pillow 01/22/2025 8:18 PM Christina Lovell RN Bed Type Acute Care Bed 01/23/2025 8:00 AM EST Ariadne Jacques RN * Behavioral Expectations Question Answer Date [...] Author SpO2 94 01/23/2025 11:25 AM EST Abe mujica Doc Flowsheet In * Patient Observation Question Answer Date of Assessment Author Patient Observations 3 rings delivered t o pacu by kingsley grewal rn. this rn placed rings in container at bedside with pt and will be sent with pt back to room. 01/16/2025 5:40 PM EST David, Felisa C, RN * Vitals Question Answer Date of [...] 01/23/2025 8:00 AM Ariadne Horner RN * Bicycle Taxi Driver Question Answer Date of Assessment Author Telemetry Strip Reviewed Yes, I have reviewed and acknowledged. 01/22/2025 7:48 AM Felisa Sidhu RN Dock Worker On No 01/23/2025 8:00 AM Ariadne Woods RN Telemetry Audible Yes 01/23/2025 4:20 AM Christina Lovell RN Telemetry Alarms Set Yes 01/23/2025 4:20 AM E Christina Ferris RN Telemetry Box Number pacu #[id number] 01/16/2025 5:17 PM E Felisa Avila RN Bedside Bicycle Taxi Driver On No 01/23/2025 8:00 AM Ariadne Horner RN Bedside Cardiac Audible Yes 01/23/2025 4:20 AM Christina Lovell RN Bedside Cardiac Alarms Set Yes 01/23/2025 4:20 AM Christina Lovell RN * Gastrointestinal Question Answer Date of Assessment Author Most Recent BM Date [id number] 01/22/2025 8:18 PM Christina Yeh RN Gastrointestinal (WDL) WDL 01/23/2025 8:00 AM Ariadne Horner RN GI Symptoms Constipation 01/21/2025 4:00 PM David Alfaro RN * Peripheral Vascular Question Answer Date of Assessment Author Peripheral Vascular (FABIANO) X 01/23/2025 8:00 AM Ariadne Horner [...] to 2 seconds 01/16/2025 5:30 PM EST David, Felisa C, RN RUE Color Appropriate for ethnicity 01/16/2025 5:30 PM EST Felisa Hernandez, RN RUE Temperature/Moisture Warm;Dry 01/16/2025 5:30 PM EST Felisa Hernandez , RN R Radial Pulse +2 01/23/2025 8:00 [...] Radial Pulse +2 01/23/2025 8:00 AM EST Danyel wong, Ron K, RN LUE Movement Decreased 01/17/2025 8:00 AM EST Ofelia Lechuga, RN * RLE Neurovascular Assessment Question Answer Date of Assessment Author RLE Capillary Refill Less than/equal to 2 seconds 01/16/2025 5:30 PM EST Felisa Hernandez, RN RLE Color Appropriate for ethnicity 01/16/2025 5:30 PM EST Felisa Hernandez, RN RLE Temperature/Moisture Warm;Dry 01/16/2025 5:30 PM EST Felisa Hernandez , RN R Pedal Pulse +2 01/23/2025 8:00 AM EST Breanna t, Ariadne K, RN RLE Movement Decreased 01/17/2025 8:00 AM EST Ofelia Lechuga, RN * LLE Neurovascular Assessment Question Answer Date of Assessment Author LLE Capillary Refill Less than/equal to 2 seconds 01/16/2025 5:30 PM EST Felisa Hernandez, RN LLE Color Appropriate for ethnicity 01/16/2025 5:30 PM EST Felisa Hernandez, RN LLE Temperature/Moisture Warm;Dry 01/16/2025 5:30 PM EST Felisa Hernandez , RN L Pedal Pulse +2 01/23/2025 8:00 AM EST Ariadne Hilton RN LLE Movement Decreased 01/17/2025 8:00 AM EST Ofelia Lechuga RN * Musculoskeletal Question Answer Date of Assessment Author RUE Weakness 01/23/2025 8:00 AM Ariadne [...] Odor No odor 01/19/2025 4:00 PM EST [place]ob [place], Scar RAI De Dios Urinary Incontinence Yes 01/22/2025 8:18 PM E Christina Ferris RN * Genitalia Question Answer Date of Assessment Author Female Genitalia Redness 01/23/2025 8:00 AM Ariadne Manning RN * Psychosocial Question Answer Date of Assessment Author Psychosocial (WDL) WDL 01/23/2025 8:00 AM Ariadne Horner RN * Intake Question Answer Date of Assessment Author [address] 01/22/2025 7:00 PM Felisa Sidhu RN * Output (mL) Question Answer Date [...] of Assessment Author 2.07 01/22/2025 6:00 AM Nancy Kuhn * BMI (Calculated) Answer Date of Assessment Author 37.62 01/22/2025 6:00 AM Nancy Kuhn * Pain Location Answer Date of Assessment Author Back;Head;Neck 01/22/2025 9:43 PM Christina Lovell RN * Pain Orientation Answer Date of Assessment Author Mid;Lower 01/19/2025 9:17 PM Christina Lovell RN * Wound Follow-Up Question Answer Date of Assessment Author Last Date of Wound Treatment [id number] 01/16/2025 12:30 PM Amanda Damon R N Wound Follow-Up Needed? 2 Week 01/16/2025 12:30 PM Amanda Damon RN Wound Comment Groin ICDY - CCAF 01/16/2025 12:30 PM Amanda Melendez RN Wound Previous Provider LK 01/16/2025 12:30 PM Amanda Damon RN Next Date For Wound Care Follow-up [id number] 01/16/2025 12:30 PM EST Amanda Mcclure R N * Cardiac Question Answer Date of Assessment Author Cardiac ([facility]) [facility] 01/17/2025 4:00 PM EST Ofelia Peter RN * Respiratory Question Answer Date of Assessment Author Respiratory ([facility]) [facility] 01/23/2025 8:00 AM EST Ariadne Adame RN * RLE ROM Assessment Question Answer Date of Assessment Author RLE Assessment [facility] 01/18/2025 11:05 AM EST Dianelys Mancilla * LLE ROM Assessment Question Answer Date of Assessment Author LLE Assessment [facility] 01/18/2025 11:05 AM EST Dianelys Mancilla * Vitals Question Answer Date of Assessment Author Temp src Oral 01/23/2025 11:25 AM EST Camila virk Benji Resp 16 01/23/2025 11:25 AM EST Camila virk Benji Weight 3396.85 01/22/2025 6:00 AM EST Alice Garber O2 Flow Rate (L/min) 1 01/23/2025 7:39 AM E Benji Quiñonez BP Location Right arm 01/23/2025 11:25 AM EST Camila n, Benji BP Method Automatic 01/23/2025 11:25 AM EST Camila virk Benji Pulse Oximetry Type Intermittent 01/23/2025 11:[address] Benji Gilbert Patient Activity During SpO2 Measurement At rest 01/23/2025 11:25 AM EST Vladimir Benji Oxygen Therapy None 01/23/2025 11:25 AM EST Valencia ylizzie Benji O2 Delivery Method Nasal cannula 01/23/2025 7:39 AM ES Benji Hill Patient Position Lying 01/23/2025 11:25 AM EST Benji Gilbert * Point of Care Tests Question Answer Date of Assessment Author Provider Role Hospitalist 01/20/2025 1:27 AM EST Christina Zapata RN Blood Glucose Meter 147 01/23/2025 8:18 AM ES Benji Hill Provider Name Kimberly Pfeiffer 01/20/2025 1:27 AM EST Christina Zapata RN Method of Communication Secure message 01/20/2025 1:27 AM Christina Lovell, RAI Response See orders 01/20/2025 1:27 AM Christina Fontana, RAI Name of Nurse Notified of Blood Glucose Results (First and Last) Lew Adame RN 01/23/2025 8:18 AM Benji Monterroso Glucose Sample Retrieved From Finger stick 01/23/2025 8:18 AM Benji Monterroso * Vision - Basic Assessment Question Answer Date of Assessment Author Baseline Vision Glasses distance;Gla sses reading 01/18/2025 11:00 AM Dianelys Benson Tracking Intact 01/18/2025 11:00 AM Dianelys Guan Visual History Cataracts 01/18/2025 11:00 AM Dianelys Farmer * Percent Meals Eaten (%) Answer Date of Assessment Author 75 01/23/2025 8:30 AM Griselda Horner ea RN * Patient Information Question Answer Date [...] 10:00 PM Cydney Garcia RN Food allergy, Jainism, or Cultural nutrition needs No 01/15/2025 10:00 [...] assess Yes 01/15/2025 10:0 0 PM Cydney Garcia, RAI * Genitourinary Question Answer Date of Assessment Author Genitourinary ([facility]) X 01/23/2025 8:00 AM Ariadne Palmer, RN Genitourinary Symptoms Sanz catheter 01/23/2025 8:00 AM Ariadne Horner, RN * Neurological Question Answer Date of Assessment Author Neuro ([facility]) WD 01/17/2025 4:00 PM Ofelia Gomes RN * Prior Function Question Answer Date of Assessment Author Level of Mobility Ambulatory- community 01/19/20 10:24 AM Micheal Roque Mobility [place] Independent gait without device 01/18/2025 10:24 AM Micheal Roque History of Falls No 01/18/2025 10:2 4 AM Mihceal Roque ADL Performance Needs assistance 01/18/2025 10:2 [...] Answer Date of Assessment Author RUE Assessment [facility] 01/18/2025 11:05 AM Dianelys Farmer * LUE ROM Assessment Question Answer Date of Assessment Author LUE Assessment [facility] 01/18/2025 11:05 AM Dianelys Farmer * Safe [...] Fall risk;Environmen gautam surveillance 01/23/2025 8:00 AM Ariaden Horner RN * Family/Significant Other Communication Question [...] 2 01/15/2025 10:00 PM Cydney Garcia RN SECURITY PATROL OFFICER Evaluation Needed 2 01/15/2025 10:00 PM Cydney [...] Malnutrition Identified No 01/16/2025 1:00 P M EST Nani Leija, RD * Physical Exam Performed On Question Answer Date of Assessment Author Temples (muscles) None 01/16/2025 1:0 0 PM Nani Mcneil, RD Clavicle (muscle) None 01/16/2025 1:0 0 PM EST Nani Leija, RD Shoulder (muscle) None 01/16/2025 1:0 0 PM Nani Mcneil, RD Interosseous (muscle) None 01/16/2025 1:00 PM Nani Mcneil, RD Orbital (fat) None 01/16/2025 1:00 PM Nani Mcneil, RD Triceps (fat) None 01/16/2025 1:00 PM Nani Mcneil, RD Energy Intake Decreased appetite f or the past 1-2 weeks while admitted at OSH, previously eating normally 01/16/2025 1:[address] Weight Loss Weight gain unintentionally - used to weigh ~180#, now believes she's weighing ~200# 01/16/2025 1:[address] * Restart Vitals Timer Answer Date [...] 01/16/2025 5:30 PM Felisa Forrest RN Neuro (WDL) X 01/16/2025 5:30 PM Felisa Forrest RN Hand Grasp/Motor Function/Sensation Assessment Grasp;Dorsiflexion;M otor response;Sensation;M otor strength 01/16/2025 5:30 PM Felisa Forrest RN * HEENT Question Answer Date of Assessment Author HEENT ([facility]) X 01/16/2025 5:17 PM Felisa Forrest RN * Cardiac Question Answer Date of Assessment Author Cardiac ([facility]) [facility] 01/16/2025 5:17 PM Felisa Forrest RN * Gastrointestinal Question Answer Date of Assessment Author Gastrointestinal ([facility]) [facility] 01/16/2025 5:17 PM Felisa Forrest RN * Genitourinary Question Answer Date of Assessment Author Genitourinary ([facility]) X 01/16/2025 5:17 PM ES Felisa Oconnor, RAI * Psychosocial Question Answer Date of Assessment Author Psychosocial ([facility]) [facility] 01/16/2025 5:17 PM Felisa Forrest RN * [...] than 35 kg/m2? 0=No 01/15/2025 10:00 PM Cydeny Garcia RN Age older than 50 years [...] AM Dianelys Benson Dynamic Standing-Balance Lateral weight shifts;Anterior/Cafeteria Server ior weight shifts 01/18/2025 11:05 AM Dianelys Benson * General Question Answer Date of Assessment Author Next OT Reassessment [id number] 01/18/2025 11:05 AM Dianelys Benson Patient/Family Goals Statement Pt desires to return home when able to. 01/18/2025 11:05 AM Dianelys Benson Date of OT Session [id number] 01/18/2025 11 :05 AM Dianelys Benson * [...] / clean-up 01/18/2025 11:05 A Dianelys Maki Score - Eating 5 01/18/2025 11:05 AM Dianelys Rodney * Oral Hygiene Question Answer Date of Assessment Author Assistance Needed Set-up / clean-up 01/18/2025 11:05 A Dianelys Maki CARE Score - Oral Hygiene 5 01/18/2025 11:05 AM Marielos Benson ly * Toileting Hygiene Question Answer Date of Assessment Author Physical Assistance Level Total assistance 01/18/2025 11:05 AM Dianelys Benson CARE Score - Toileting Hygiene 1 01/18/2025 11:05 AM Marielos Benson ly * Shower/Bathe Self Question Answer Date of Assessment Author Physical Assistance Level 51%-75% 01/18/2025 11:0 5 AM Dianelys Benson CARE Score - Shower/Bathe Self 2 01/18/2025 11:05 AM Dianelys Benson * Upper Body Dressing Question Answer Date of Assessment Author Physical Assistance Level 25% or less 01/18/2025 11:0 5 AM ZULY Marielos Mendozaly CARE Score - Upper Body Dressing 3 01/18/2025 11:05 AM ZULY SanambariMarielos ly * Lower Body Dressing Question Answer Date of Assessment Author Physical Assistance Level Total assistance 01/18/2025 11:05 AM ZULY SanambariDianelys CARE Score - Lower Body Dressing 1 01/18/2025 11:05 AM ZULY SanambariMarielos ly * Putting On/Taking Off Footwear Question Answer Date of Assessment Author Physical Assistance Level Total assistance 01/18/2025 11:05 AM ZULY Macedophongbari Dianelys CARE Score - Putting On/Taking Off Footwear 1 01/18/2025 11:05 AM Aspen Bensonedvin * Calculated C-SSRS Risk Score (Lifetime/Recent) Answer Date of Assessment Author No Risk Indicated 01/23/2025 8:00 AM Ariadne Horner RN * Merrill Coma Scale Question Answer Date of Assessment [...] Facial Droop No 01/17/2025 3:30 AM EST Robins Cydney becerril, RN Gaze Normal 01/17/2025 3:30 AM EST Robins onCydney RN Motor - LUE No drift 01/17/2025 3:30 AM EST Robins onCydney, RN Sensation (responds to stimuli) - LUE Yes 01/17/2025 3:30 AM EST Cydney Valiente R N Motor - RUE No drift 01/17/2025 3:30 AM EST Robins onCydney, RN Sensation (responds to stimuli) - RUE Yes 01/17/2025 3:30 AM EST Cydney Valiente, R N Motor - LLE No drift 01/17/2025 3:30 AM EST Cydney Goff RN Sensation (responds to stimuli) - LLE Yes 01/17/2025 3:30 AM EST Cydney Valiente, R N Motor - RLE No drift 01/17/2025 3:30 AM EST Cydney Goff RN Sensation (responds to stimuli) - RLE [...] of Assessment Author 44.43 01/16/2025 3:05 PM EST Juan Alarcon RN * EBW (lb) Answer Date of Assessment Author 98 01/16/2025 3:05 PM EST Juan Alarcon RN * Difference in Weight Since Last Visit Answer Date of Assessment Author -0.32 01/22/2025 6:00 AM EST Nancy Garber h * Housing Circumstances-Z Codes Question Answer Date of Assessment Author Housing Circumstances (select all that apply) None Applicable 01/16/2025 10:20 AM EST Amanda Meza RN * Pain Type Answer Date of Assessment Author Acute pain 01/22/2025 9:43 PM EST Christina Fritz RN * Temp (in Celsius) for [place] IV Answer Date of Assessment Author 36.7 01/23/2025 11:25 AM EST Gurpreet Gilbert oah * Pain Assessment Question Answer Date [...] of Assessment Author Negative 01/23/2025 8:00 AM Grisleda Horner ea, RN * Sedation Scales Question [...] Score Answer Date of Assessment Author Díaz High 01/23/2025 8:00 AM Griselda Horner ea, RN [...] 01/15/2025 10:00 PM Cydney Garcia RN * Augusto Coma Scale Numeric Answer Date of Assessment Author 15 01/23/2025 8:00 AM Griselda Horner ea, RN * Elevate heels task - custom formula Answer Date of Assessment Author 1 01/23/2025 8:00 AM EST Griselda Adame ea, RN * Vitals Timer Question Answer Date of Assessment Author Restart Vitals Timer Yes 01/23/2025 11:25 AM EST Benji Gilbert * Respiratory Assessment Question Answer Date of Assessment Author Artificial airway present Yes 01/16/2025 5:17 PM Felisa Forrest, RN Respiratory Pattern Regular 01/16/2025 5 :17 PM Felisa Forrest, RN Chest Assessment Symmetrical;Chest expansion symmetrical 01/16/2025 5:17 PM Felisa Forrest, RAI Airway LDA Oral pharyngeal airway 5:17 PM Felisa Forrest, RAI Respiratory (WDL) WDL 01/16/2025 5:3 0 PM Felisa Forrest, RAI * Integumentary Question Answer Date of Assessment Author Integumentary (WDL) X 01/16/2025 5:17 PM Felisa Kapadia, RN * Modified Neeta Question Answer Date of Assessment Author Activity 2 01/16/2025 6:00 PM Felisa Forrest, RAI Respiration 2 01/16/2025 6:00 PM Felisa Forrest, RN Hemodynamic Stability 2 01/16/2025 6:00 PM Felisa Forrest, RAI Consciousness 2 01/16/2025 6:00 PM Felisa Forrest, RN Oxygen Saturation 1 01/16/2025 6:00 PM Felisa Forrest, RAI Modified Neeta Score 12 01/16/2025 6:00 PM [...] more, Dianelys Bowels 5 01/18/2025 11:05 AM Dianelys Guan Bladder 0 01/18/2025 11:05 AM Dianelys Guan Toilet Use 0 01/18/2025 11:05 AM Dianelys [...] Date of Assessment Author Manual Muscle Testing [facility] 01/18/2025 11:05 AM Dianelys Benson * Manual Muscle Testing - RUE Question Answer Date of Assessment Author Manual Muscle Testing - RUE L 01/18/2025 11 :05 AM Dianelys Benson * Manual Muscle Testing - LUE Question Answer Date of Assessment Author Manual Muscle Testing - LUE L 01/18/2025 11 :05 AM Dianelys Benson * [...] Dianelys Benson Method of Communication Verbal 01/19/20 11:00 AM Dianelys Benson Single Step Commands [...] structures;Motor skills;Process skills;Habits;Routines;R oles;Personal;Physical 01/18/2025 11:05 AM EST Kelly Dianelys * C-SSRS (Frequent Screener) Question Answer Date [...] 01/23/2025 10:09 AM Amanda Ford RN * [facility] 6-Clicks Mobility Assessment Question Answer Date [...] railing? 2 01/18/2025 10:24 AM Katelyn Roque [facility] 6-Clicks Mobility Asse ssment Total 12 01/18/2025 10:24 AM EST Katelyn Melton * Pre-op Phone Call Discharge Planning Question Answer Date of Assessment Author Patient expects to be discha rged to: home 01/16/2025 2:54 PM EST Kingsley Alarcon RN * PT Therapeutic Procedures Time Entry Question Answer Date of Assessment Author Therapeutic Exercise Time Entry 8 5 2:11 PM EST Nagi Shepherd Therapeutic Activity Time Entry 20 5 2:11 PM EST Nagi Shepherd * HEENT Question Answer Date of Assessment Author HEENT (WDL) X 01/23/2025 8:00 AM EST Ariadne [...] Author use encouraged 01/22/2025 7:56 AM Harshil Sidhu, RAI * Oral Nutrition Promotion Answer Date of Assessment Author physical activity promoted 01/22/2025 8:51 PM Christina Yeh, RAI * Fever Reduction/Comfort Measures Answer Date of Assessment Author lightweight bedding;lightweight clothing 025 8:51 PM Christina Lovell, RAI * Trust Relationship/Rapport Answer Date of Assessment [...] provided;rest/sleep promoted 01/22/2025 8:51 PM Christina Lovell, RN * Outcome Evaluation Answer Date of Assessment Author POC reviewed with pt. 01/22/2025 8:51 PM Christina Head, RN * Medication Review/Management Answer Date of Assessment Author medications reviewed 01/22/2025 8:51 PM Christina Cr, RN * Skin Protection Answer Date of Assessment Author incontinence pads utilized 01/22/2025 8:51 PM Christina Yeh, RAI * Self-Care Promotion Answer Date of Assessment Author independence encouraged;BADL personal objects within reach 01/22/2025 8:51 PM Christina Lovell, RAI * Safety Interventions Question Answer Date of [...] Assessment Author Discharge Facility/Level of Care Needs 3-Intermediate Facility 01/23/2025 10:09 AM Amanda Ford RN Equipment Needed After Discharge other (see comments) 01/23/2025 10:09 AM Amanda Ford RN Discharge Coordination/Progress Going to [facility] 01/23/2025 10:09 AM Amanda Ford RN Equipment Currently Used at Home walker, rollator;shower chair 01/23/2025 10:09 AM Amanda Ford RN Current Outpatient/Agency/Support Group clinic(s);DME 01/23/2025 10:09 AM Amanda Ford RN Anticipated Changes Related to Illness none 01/23/2025 10:09 AM Amanda Ford RN Concerns Comments Patient is going to [facility] where they can assist with care coordination. 01/23/2025 10:09 AM Amanda Ford RN Transportation Anticipated other (see comments) 01/23/2025 10:09 AM mAanda Ford RN Outpatient/Agency/Support Group Needs intermediate facility;OT, PT, SECURITY PATROL OFFICER 01/23/2025 10:09 AM Amanda Ford RN Transportation [...] RN Patient/Family Anticipated Services at Transition rehabilitation services;intermediate 01/23/2025 10:09 AM Amanda Ford RN Patient's Choice of Community Agency(s) [facility] 01/23/2025 10:09 AM Amanda [...] RN What day is the transport expected? [id number] 01/23/2025 10:09 AM Amanda Ford RN What time is the transport expected? [id number] 01/23/2025 10:09 AM Amanda Ford RN Who [...] Care Question Answer Date of Assessment Author Supervisor Cold Rolling N/A 01/18/2025 11:05 AM Dianelys Guan Family/Caregiver [...] Answer Date of Assessment Author Level of [place] Dependent 01/18/2025 11:00 AM Dianelys Benson Physical/Nonphysical Assist Verbal Cues;Nonverbal cues (demo/gestures);Maxim al cues;Additional assist utilized for safety 01/18/2025 11:00 AM Dianelys Benson * Bed Mobility Exam: Supine to Sit Question Answer Date of Assessment Author Level of [place] Moderate assist (5 0% patient's effort) 01/18/2025 11:00 AM Dianelys Benson Physical/Nonphysical Assist HOB elevated;Moderate cues;Verbal Cues 01/18/2025 11:00 AM Dianelys Benson Assistive Device Bed rails 01/18/2025 11:0 0 AM Dianelys Benson * Transfer Exam: Sit to stand Question Answer Date of Assessment Author Level of [place] Moderate assist (5 0% patient's effort) 01/18/2025 11:00 AM Dianelys Benson Physical/Nonphysical Assist Verbal Cues;Maximal cues;Additional assist utilized for safety 01/18/2025 11:00 AM Dianelys Benson Assistive Device Walker, rolling 01/18/2025 11:0 0 AM Dianelys Benson * Transfer Exam: Stand to Sit Question Answer Date of Assessment Author Level of [place] Moderate assist (5 0% patient's effort) 01/18/2025 11:00 AM Dianelys Benson Physical/Nonphysical Assist Verbal Cues;Maximal cues;Additional assist utilized for safety 01/18/2025 11:00 AM Dianelys Benson Assistive Device Walker, rolling 01/18/2025 11:0 0 AM Dianelys Benson * Transfer Exam: Bed to Chair/Chair to Bed Question Answer Date of Assessment Author Type of Transfer Sidesteps 01/18/2025 11:0 0 AM Dianelys Benson Level of [place] Moderate assist (5 0% patient's effort) 01/18/2025 [...] pullover shirt 01/18/2025 11:00 AM Dianelys Benson [place]enny Dressing Where Assessed Chair level 01/18/2025 11:00 [...] of Assessment Author Next PT Re-Assessment Date [id number] 01/18/2025 10: 24 AM Micheal Roque Date of PT Session [id number] 01/18/2025 10:24 AM Micheal Hilliard Patient/Family Goals [...] Score Question Answer Date of Assessment Author [facility] Daily Mobility Goal 2 01/19/2025 8:0 0 AM Scar Shahid RN [facility] Daily Mobility Score 2 01/19/2025 8: [...] EST Inte rface, Doc Flowsheet In * Vitals Question Answer Date of Assessment Author Heart Rate Source Monitor 01/22/2025 8:18 PM Christina Lovell RN * Neurological Question Answer Date of Assessment Author Level of Consciousness Alert 8:00 AM Aridane Horner RN Orientation Level Oriented X4 01/23/2025 8:0 0 AM Ariadne Horner RN Cognition Appropriate judgement;Appropriate safety awareness;Appropriate attention/concentration; Appropriate for developmental age;Follows commands 01/23/2025 8:00 AM Ariadne Horner RN Speech Clear 01/23/2025 8:00 AM Ariadne Horner RN L Pupil Reaction Brisk 01/23/2025 8:00 AM Airadne Horner RN L Pupil Size (mm) 3 [...] R Pupil Shape Round 01/23/2025 8:00 AM EST Ariadne Adame RN L Pupil Shape Round 01/23/2025 8:00 [...] Cardiac Rhythm NSR 01/19/2025 4:00 PM EST Scar Foster RN Ectopy Premature ventricula r contractions 01/23/2025 4:20 AM Christina Lovell RN Ectopy Frequency Rare 01/23/2025 4:20 AM Christina Lynn RN Heart Sounds S1, S2 01/23/2025 8:00 AM Ariadne Horner RN Jugular Venous Distention (JVD) No 01/23/2025 8:00 AM Ariadne Horner RN * Bicycle Taxi Driver Question Answer Date of Assessment Author Telemetry Strip Reviewed Yes, I have reviewed and acknowledged. 01/22/2025 7:48 AM Felisa Sidhu RN Dock Worker On No 01/23/2025 8:00 AM E Ariadne Nair RN Telemetry Audible Yes 01/23/2025 4:20 AM Christina Lovell RN Telemetry Alarms Set Yes 01/23/2025 4:20 AM E Christina Ferris RN Telemetry Box Number pacu #[id number] 01/16/2025 5:17 PM E Felisa Avila RN * Gastrointestinal Question Answer Date of Assessment Author Most Recent BM Date [id number] 01/22/2025 8:18 PM Christina Yeh RN Gastrointestinal (WDL) WDL 01/23/2025 8:00 AM Ariadne Horner RN GI Symptoms Constipation 01/21/2025 4:00 PM David Alfaro RN * Peripheral Vascular Question Answer Date of Assessment Author Peripheral Vascular (WDL) X 01/23/2025 8:00 [...] 01/16/2025 5:30 PM EST Felisa Hernandez, RN RUE Color Appropriate for ethnicity 01/16/2025 5:30 PM EST Felisa Hernandez, RN RUE Temperature/Moisture Warm;Dry 01/16/2025 5:30 PM EST Felisa Hernandez , RN R Radial Pulse +2 01/23/2025 8:00 AM EST Kre marvin, Ron K, RN RUE Movement Decreased 01/17/2025 [...] Radial Pulse +2 01/23/2025 8:00 AM EST Danyel wong, Ron K, RN LUE Movement Decreased 01/17/2025 8:00 AM EST Ofelia Lechuga, RN * RLE Neurovascular Assessment Question Answer Date of Assessment Author RLE Capillary Refill Less than/equal to 2 seconds 01/16/2025 5:30 PM EST Felisa Hernandez, RN RLE Color Appropriate for ethnicity 01/16/2025 5:30 PM EST Felisa Hernandez, RN RLE Temperature/Moisture Warm;Dry 01/16/2025 5:30 PM EST Felisa Hernandez , RN R Pedal Pulse +2 01/23/2025 8:00 AM EST Kreaditya t, Ron K, RN RLE Movement Decreased 01/17/2025 8:00 AM EST Ofelia Lechuga, RAI * LLE Neurovascular Assessment Question Answer Date of Assessment Author LLE Capillary Refill Less than/equal to 2 seconds 01/16/2025 5:30 PM EST Felisa Hernandez, RN LLE Color Appropriate for ethnicity 01/16/2025 5:30 PM EST Felisa Hernandez, RN LLE Temperature/Moisture Warm;Dry 01/16/2025 5:30 PM EST eFlisa Hernandez RN L Pedal Pulse +2 01/23/2025 8:00 AM EST Ariadne Hilton RN LLPenny Movement Decreased 01/17/2025 8:00 AM EST Ofelia Lechuga RN * Musculoskeletal Question Answer Date of Assessment Author RUE Weakness 01/23/2025 8:00 AM Ariadne Horner RN RLE Limited movement 01/23/2025 8:00 AM EST Ariadne Flood RN LUE Weakness 01/23/2025 8:00 AM Ariadne Horner RN LLPenny Limited movement 01/23/2025 8:00 AM EST Ariadne Flood RN Musculoskeletal (WDL) X 01/23/2025 8:00 AM Ariadne Horner RN * Urine Assessment Question Answer Date of Assessment Author Urine Color Yellow/straw 01/22/2025 8:18 PM Christina Fontana RN Urine Appearance Clear 01/22/2025 8:18 PM Christina Lynn RN Urine Odor No odor 01/19/2025 4:00 PM ZULY [place] Scarrandell De Dios RN Urinary Incontinence Yes 01/22/2025 8:18 PM Christina Bailon RN * Genitalia Question Answer Date of [...] Horner RN Gait/Transferring 10 01/23/2025 8:00 AM EST Ariadne Adame RN Mental Status 0 01/23/2025 8:00 AM Ariadne Giles RN Díaz Fall Risk Score 60 01/23/2025 8:00 AM Ariadne Horner RN * Isael Scale Question Answer Date of Assessment Author Sensory Perceptions 3 01/22/2025 8:52 PM ES T Christina Fritz RN Moisture 3 01/22/2025 8:52 PM EST Christina Contreras RN Activity 3 01/22/2025 8:52 PM EST Christina Contreras RN Mobility 3 01/22/2025 8:52 PM EST Christina Contreras RN Nutrition 3 01/22/2025 8:52 PM Christina Fontana RN Friction and Shear 2 01/22/2025 8:52 PM Christina Lovell RN Isael Scale Score 17 01/22/2025 8:52 PM Christina Lovell RN * BSA (Calculated - sq m) Answer Date of Assessment Author 2.07 01/22/2025 6:00 AM Nancy Kuhn * BMI (Calculated) Answer Date of Assessment Author 37.62 01/22/2025 6:00 AM Nancy Kuhn * Pain Location Answer Date of Assessment Author Back;Head;Neck 01/22/2025 9:43 PM Christina Lovell RN * Pain Orientation Answer Date of Assessment Author Mid;Lower 01/19/2025 9:17 PM Christina Lovell RN * Cardiac Question Answer Date of Assessment Author Cardiac (WDL) [facility] 01/17/2025 4:00 PM EST Ofelia Peter RN * Respiratory Question Answer Date of Assessment Author Respiratory (WDL) [facility] 01/23/2025 8:00 AM EST Ariadne Adame RN * RLE ROM Assessment Question Answer Date of Assessment Author RLE Assessment [facility] 01/18/2025 11:05 AM EST Dianelys Mancilla * LLE ROM Assessment Question Answer Date of Assessment Author LLE Assessment [facility] 01/18/2025 11:05 AM EST Dianelys Mancilla * Vitals Question Answer Date of Assessment Author Temp src Oral 01/23/2025 11:25 AM EST Camila virk Benji Resp 16 01/23/2025 11:25 AM EST Camila virk, Benji Weight 3396.85 01/22/2025 6:00 AM Alice Kuhn [...] Hill Patient Position Lying 01/23/2025 11:25 AM Benji [...] 10:00 PM Cydney Garcia RN Food allergy, Jainism, or Cultural nutrition needs No 01/15/2025 10:00 [...] Author Physical Abuse Denies 01/15/2025 10:00 PM EST Cydney Wray, RAI Verbal Abuse Denies 01/15/2025 10:00 PM EST Robin lakeCydney RN * Values/Beliefs Question Answer Date of Assessment Author Cultural Requests During Hospitalization accepts blood products 01/16/2025 3:05 PM EST Kingsley Alarcon RN Spiritual Requests During Hospitalization denies 01/15/2025 10:00 PM EST Cydney Valiente RN Unable to assess Yes 01/15/2025 10:0 0 PM EST Cydney Valiente RN * Genitourinary Question Answer Date of Assessment Author Genitourinary (WDL) X 01/23/2025 8:00 AM Ariadne Palmer RN Genitourinary Symptoms Sanz catheter 01/23/2025 8:00 AM Ariadne Horner RN * Neurological Question Answer Date of Assessment Author Neuro (WDL) WDL 01/17/2025 4:00 PM Ofelia Gomes RN * Prior Function Question Answer Date of Assessment Author Level of Mobility Ambulatory- community 01/19/20 10:24 AM Micheal Roque Mobility [place] Independent gait without device 01/18/2025 10:24 AM [...] Assessment Question Answer Date of Assessment Author DANISHAPenny Assessment [facility] 01/18/2025 11:05 AM Dianelys Farmer * LUE ROM Assessment Question Answer Date of Assessment Author ZAKPenny Assessment [facility] 01/18/2025 11:05 AM Dianelys Farmer * Safe [...] 2 01/15/2025 10:00 PM Cydney Garcia RN SECURITY PATROL OFFICER Evaluation Needed 2 01/15/2025 10:00 PM Cydney [...] Author Yes 01/23/2025 11:25 AM EST Gurpreet Gilberth * Height and Weight Question Answer Date [...] AM Dianelys Benson Dynamic Standing-Balance Lateral weight shifts;Anterior/Cafeteria Server ior weight shifts 01/18/2025 11:05 AM Dianelys Benson * General Question Answer Date of Assessment Author Next OT Reassessment 77705 01/18/2025 11:05 AM Dianelys Benson Patient/Family Goals Statement Pt desires to return home when able to. 01/18/2025 11:05 AM Dianelys Benson Date of OT Session [id number] 01/18/2025 11 :05 AM Dianelys Benson * [...] Facial Droop No 01/17/2025 3:30 AM EST Robins on, Cydney, RN Gaze Normal 01/17/2025 3:30 [...] No Ataxia 01/17/2025 3:30 AM EST Robins onCydney, RN Visual Teague No visual loss 01/17/2025 3:30 AM EST Cydney Wray RN Speech/Language Clear 01/17/2025 3:30 AM EST Cydney Wray, RN * Weight in (lb) to have BMI = 25 Answer Date of Assessment Author 140.8 01/16/2025 3:05 PM EST Juan Alarcon RN * Pain Type Answer Date of Assessment Author Acute pain 01/22/2025 9:43 PM EST Christina Fritz RN * Pain Assessment Question Answer Date [...] of Assessment Author 0 01/16/2025 5:17 PM EST Sylvia Hernandez RN * Nutrition Question Answer Date of [...] Bruising Characteristics Scattered 01/23/2025 8:00 AM Ariadne Honrer RN Integumentary (WDL) X 01/23/2025 8:00 AM [...] ICU/ PCAM ICU 01/23/2025 8:00 AM Ariadne oHrner RN * Assume Pain is Present Answer [...] 0 01/18/2025 11:05 AM EST Swetha more, Diaenlys Grooming 5 01/18/2025 11:05 AM EST Swetha more, Dianelys Dressing 5 01/18/2025 11:05 AM EST Swetha more, Dianelys Bowels 5 01/18/2025 11:05 AM EST Swetha more, Dianelys Bladder 0 01/18/2025 11:05 AM EST Swetha more, Dianelys Toilet Use 0 01/18/2025 11:05 AM EST Swetha more, Dianelys Transfers (Bed to Chair and Back) 5 025 11:05 AM EST RemingtonamMarielos candelarialy Mobility (on Level Surfaces) 0 01/18/2025 1 1:05 AM Dianelys Benson Stairs 0 01/18/2025 11:05 AM EST Swetha moreDianelys Total Score 25 01/18/2025 11:05 AM EST Swetha moreMarielosly * Standardized Tests Question Answer Date of Assessment Author Standardized Tests Micheal Index 01/18/2025 11:05 AM E Dianelys Mendoza * Rocco/Cubbin Scale Question Answer Date of Assessment Author Age (years) 1 01/23/2025 8:00 AM Ariadne Horner RN Hemodynamics 4 01/23/2025 8:00 AM Ariadne Horner RN Weight/Tissue Viability 3 01/23/2025 8:00 A M Ariadne Horner RN Respiration 4 01/23/2025 8:00 AM Ariadne Horner RN Past Medical History 2 01/23/2025 8:00 AM E Ariadne Adame RN Oxygen Requirments 4 01/23/2025 8:00 AM [...] 0 01/23/2025 8:00 AM Ariadne Horner RN Rocco/Debra Pressure Risk Score 36 2024 8:00 AM [...] Date of Assessment Author Manual Muscle Testing [facility] 01/18/2025 11:05 AM Dianelys Benson * Manual Muscle Testing - RUE Question Answer Date of Assessment Author Manual Muscle Testing - RUE [facility] 01/18/2025 11 :05 AM Dianelys Benson * Manual Muscle Testing - LUE Question Answer Date of Assessment Author Manual Muscle Testing - LUE [facility] 01/18/2025 11 :05 AM Dianelys Benson * [...] Dianelys Benson Method of Communication Verbal 01/19/20 11:00 AM Dianelys Benson Single Step Commands [...] 1 Month) No 01/23/2025 8:00 AM Ariadne Hornre RN 6. Suicidal Behavior (Lifetime) No 8:00 AM Ariadne Horner RN * Discharge Planning Continued Question Answer Date of Assessment Author Transportation Home at Discharge Other(Comment) 01/23/2025 10:09 AM Amanda Ford, RAI * [facility] Mobility Assessment Question Answer Date of Assessment Author Difficulty patient has turni ng over in bed (including adjusting bedclothes, sheets, and blankets)? 2 01/18/2025 10:24 AM EST Micheal Chopra Difficulty patient has sitti ng down on and standing up from a chair with arms (wheelchair, bedside commode, etc.)? 2 01/18/2025 10:24 AM EST Alena Melton Difficulty patient has movin g from lying [...] in hospital room? 2 01/18/2025 10:24 AM Micheal Hammond How much help does the patie nt need climbing 3-5 steps with a railing? 2 01/18/2025 10:24 AM Katelyn Roque [facility]Clicks Mobility Asse ssment Total 12 01/18/2025 10:24 AM Katelyn Roque documented as of this encounter Mental Status * Pre-op Phone Call Discharge Planning Question Answer Entry Date Author Patient expects to be discha rged to: home 01/16/2025 2:54 PM Kingsley Voss RN * Time Calculation Question Answer Entry Date Author Start Time 69140 01/18/2025 11:05 AM Dianelys Guan Stop Time 51327 01/18/2025 11:05 AM Dianelys Guan Time Calculation (min) 45 01/18/2025 11:05 A M Dianelys Benson * OT Therapeutic Procedures Time Entry Question Answer Entry Date Author Self Care/Home Management (A DLs) Time Entry 15 01/18/2025 11:05 AM Marielos Benson * HEENT Question Answer Entry Date Author ARASH (WDL) X 01/23/2025 8:00 AM [...] Author 37.7 01/22/2025 6:00 AM Nancy Kuhn * Percent Excess Weight Loss Answer Entry Date Author 0 01/16/2025 3:05 PM Juan Voss RN * Total Weight Change Percent Answer Entry Date Author 222101/22/2025 6:00 AM Nancy Kuhn * Weight Change [...] Entry Date Author 52.16 01/16/2025 3:05 PM Kingsley Voss RN * Percent of IBW Answer Entry Date Author 6,533.74 01/16/2025 3:05 PM Juan Voss RN * EBW (kg) Answer Entry Date Author 3,406.52 01/16/2025 3:05 PM Juan Voss RN * EBW (lbs) Answer Entry Date Author 3,400.81 01/16/2025 3:05 PM Juan Voss RN * Patient Profile Question Answer Entry Date Author Referral From [facility] Initiated 01/18/2025 2: 30 PM Giancarlo Herrera [...] Lovell RN * Adaptive Equipment Use Answer Entry Date Author use encouraged 01/22/2025 7:56 AM Harshil Sidhu RN * Oral Nutrition Promotion Answer Entry Date Author physical activity promoted 01/22/2025 8:51 PM Christina Yeh RN * Fever Reduction/Comfort Measures Answer Entry Date Author lightweight bedding;lightweight clothing 8:51 PM Christina Lovell, RAI * Trust Relationship/Rapport Answer Entry Date Author care explained;questions encouraged;choices provided;reassurance provided;emotional support provided;thoughts/feelings acknowledged;empathic listening provided;questions answered 01/22/2025 8:51 PM Christina Lovell RN * Pressure Reduction Devices Answer Entry Date Author pressure-redistributing mattress utilized 2024 8:51 PM Christina Lovell RN * Nutrition Interventions Answer Entry Date Author [...] adjusted;oxygen therapy provided 01/18/2025 8:00 AM Felisa Sidhu, RAI * Activity and Hygiene Care Question Answer Entry Date Author Oral Care oral rinse provided 01/22/2025 7:48 AM Felisa Chery RN * Discharge Needs Assessment Question Answer Entry Date Author Discharge Facility/Level of Care Needs 3-Intermediate Facility 01/23/2025 10:09 AM Amanda Ford RN Equipment Needed After Discharge other (see comments) 01/23/2025 10:09 AM Amanda Ford RN Discharge Coordination/Progress Going to [facility] 01/23/2025 10:09 AM Amanda Ford RN Equipment Currently Used at Home walker, rollator;shower chair 01/23/2025 10:09 AM Amanda Ford RN Current Outpatient/Agency/Support Group clinic(s);DME 01/23/2025 10:09 AM Amanda Ford RN Anticipated Changes Related to Illness none 01/23/2025 10:09 AM Amanda Ford RN Concerns Comments Patient is going to [facility] where they can assist with care coordination. 01/23/2025 10:09 AM Amanda Ford RN Transportation Anticipated other (see comments) 01/23/2025 10:09 AM Amanda Ford RN Outpatient/Agency/Support Group Needs intermediate facility;OT, PT, SECURITY PATROL OFFICER 01/23/2025 10:09 AM Amanda Ford RN Transportation [...] RN Patient/Family Anticipated Services at Transition rehabilitation services;intermediate 01/23/2025 10:09 AM Amanda Ford RN Patient's Choice of Community Agency(s) [facility] 01/23/2025 10:09 AM Amanda [...] RN What day is the transport expected? [id number] 01/23/2025 10:09 AM Amanda Ford RN What time is the transport expected? [id number] 01/23/2025 10:09 AM Amanda Ford RN Who [...] Physiologic Homeostasis met 01/16/2025 6:15 PM Felisa Forrest, RN * Weight Change 24 hrs Answer Entry Date Author -.316 01/22/2025 6:00 AM ZULY Juanjoestefani Nancy dima * Precautions Question Answer Entry Date Author Medical Precautions Fall precautions;Sei zure precautions 01/18/2025 11:05 AM Dianelys Benson * Participants in Care Question Answer Entry Date Author Supervisor Cold Rolling N/A 01/18/2025 11:05 AM Dianelys Guan * [...] Entry Date Author Next PT Re-Assessment Date 21589 01/18/2025 10: 24 AM Micheal Roque Date of PT Session [id number] 01/18/2025 10:24 AM Micheal Hilliard * PT [...] with multiple rests 01/18/2025 10:24 AM Micheal Rqoue * HLM Score Question Answer Entry Date Author SUZIE HLM Daily Mobility Goal 2 01/19/2025 8:0 0 AM Scar Shahid RN [facility] Daily Mobility Score 2 01/19/2025 8: 00 AM Scar Shahid RN * Plan of Care Reviewed With Answer Entry Date Author patient 01/22/2025 8:51 PM Christina Lovell [...] L Pupil Reaction Brisk 01/23/2025 8:00 AM EST Kreft, Ron K, RN L Pupil Size (mm) 3 01/23/2025 [...] 01/23/2025 8:00 AM Ariadne Horner RN * Bicycle Taxi Driver Question Answer Entry Date Author Telemetry Strip Reviewed Yes, I have reviewed and acknowledged. 01/22/2025 7:48 AM Felisa Sidhu RN Dock Worker On No 01/23/2025 8:00 AM Ariadne Horner RN Telemetry Audible Yes 01/23/2025 4:2 0 AM Christina Lovell RN Telemetry Alarms Set Yes 01/23/2025 4:20 AM Christina Lovell RN Telemetry Box Number pacu #[id number] 01/16/2025 5:17 PM Felisa Forrest RN Bedside Bicycle Taxi Driver On No 01/23/2025 8:00 AM Ariadne Horner RN Bedside Cardiac Audible Yes 01/24/20 4:20 AM Christina Lovell RN Bedside Cardiac Alarms Set Yes 01/23/2025 4:20 AM Christina Lovell RN * Gastrointestinal Question Answer Entry Date Author Most Recent BM Date 52014 01/22/2025 8:18 PM Christina Yeh RN Gastrointestinal (WDL) WDL 01/23/2025 8:00 AM EST Ariadne Adame RN GI Symptoms Constipation 01/21/2025 4:00 PM EST David Wheeler RN * Peripheral Vascular Question Answer Entry Date Author Peripheral Vascular (WDL) X 01/23/2025 8:00 AM EST Ariadne Adame RN RLE Edema +1 01/23/2025 8:00 AM EST Ariadne Adame RN LLE Edema +1 01/23/2025 8:00 AM EST Ariadne Adame RN Capillary Refill Less than/equal to 2 seconds (All extremities) 01/23/2025 8:00 AM EST Ariadne Adame RN Pulses R radial;L radial;R pedal;L pedal 01/23/2025 8:00 AM Ariadne Horner RN Cyanosis None 01/23/2025 8:00 AM EST Ariadne Adame RN Edema Right lower extremity;Left lower extremity 01/23/2025 8:00 AM EST Ariadne Adame RN PVS Additional Assessments RUE;RLE;LUE;LLE 01/16/2025 5:17 PM EST Felisa Hernandez RN * RUPenny Neurovascular Assessment Question Answer Entry Date Author CHRISTIANNE Capillary Refill Less than/equal to 2 seconds 01/16/2025 5:30 PM EST Felisa Hernandez RN RUPenny Color Appropriate for ethnicity 01/16/2025 5:30 PM EST Felisa Hernandez RN RUPenny Temperature/Moisture Warm;Dry 01/16/2025 5:30 PM Felisa Forrest RN R Radial Pulse +2 01/23/2025 8:00 AM EST Ariadne Adame RN RUE Movement Decreased 01/17/2025 8:00 AM EST Ofelia Osei RN * LUPenny Neurovascular Assessment Question Answer Entry Date Author MAGALI Capillary Refill Less than/equal to 2 seconds 01/16/2025 5:30 PM Felisa Forrest RN LUPenny Color Appropriate for ethnicity 01/16/2025 5:30 PM EST Felisa Hernandez RN LUPenny Temperature/Moisture Warm;Dry 01/16/2025 5:30 PM Felisa Forrest, RAI L Radial Pulse +2 01/23/2025 8:00 AM EST Ariadne Adame RN LUE Movement Decreased 01/17/2025 8:00 AM EST Ofelia Osei RN * RLE Neurovascular Assessment Question Answer Entry Date Author RLE Capillary Refill Less than/equal to 2 seconds 01/16/2025 5:30 PM Felisa Forrest, RN RLE Color Appropriate for ethnicity 01/16/2025 5:30 PM Felisa Forrest, RN RLE Temperature/Moisture Warm;Dry 01/16/2025 5:30 PM Felisa Forrest, RN R Pedal Pulse +2 01/23/2025 8:00 AM EST Ariadne Adame RN RLE Movement Decreased 01/17/2025 8:00 AM EST Ofelia Osei RN * LLE Neurovascular Assessment Question Answer Entry Date Author LLE Capillary Refill Less than/equal to 2 seconds 01/16/2025 5:30 PM Felisa Forrest, RN LLE Color Appropriate for ethnicity 01/16/2025 5:30 PM Felisa Forrest, RN LLE Temperature/Moisture Warm;Dry 01/16/2025 5:30 PM Felisa Forrest, RN L Pedal Pulse +2 01/23/2025 8:00 AM EST Aridane Adame RN LLE Movement Decreased 01/17/2025 8:00 AM EST Ofelia Osei RN * Musculoskeletal Question Answer Entry Date Author RUE Weakness 01/23/2025 8:00 AM EST Ariadne Adaem RN RLE Limited movement 01/23/2025 8:00 AM EST Ariadne Flood RN LUE Weakness 01/23/2025 8:00 AM EST Ariadne Adame RN LLE Limited movement 01/23/2025 8:00 AM EST K Ariadne laboy RN Musculoskeletal (WDL) X 01/23/2025 8:00 AM EST Ariadne Adame RN * Urine Assessment Question Answer Entry Date Author Urine Color Yellow/straw 01/22/2025 8:18 PM Christina oFntana RN Urine Appearance Clear 01/22/2025 8:18 PM EST Christina Eubanks RN Urine Odor No odor 01/19/2025 4:00 PM EST Scar Katz RAI De Dios Urinary Incontinence Yes 01/22/2025 8:18 PM E Christina Ferris RN * Genitalia Question Answer Entry Date Author Female Genitalia Redness 01/23/2025 8:00 AM EST Ariadne Flood RN * Psychosocial Question Answer Entry Date Author Psychosocial (WDL) WDL 01/23/2025 8:00 AM EST Ariadne Adame RN * Intake Question Answer Entry Date Author [address] 01/22/2025 7:00 PM EST Felisa Whitlock RN * Output (mL) Question Answer Entry Date Author Urine 1450 01/21/2025 6:14 AM EST Silva Purvis * Díaz Fall Risk Question Answer Entry [...] Fontana RN Nutrition 3 01/22/2025 8:52 PM EST Christina Contreras RN Friction and Shear 2 01/22/2025 8:52 PM EST Christina Fritz RN Isael Scale Score 17 01/22/2025 8:52 PM EST Christina Fritz RN * BSA (Calculated - sq m) Answer Entry Date Author 2.07 01/22/2025 6:00 AM EST Nancy Garber h * BMI (Calculated) Answer Entry Date Author 37.62 01/22/2025 6:00 AM EST Nancy Garber h * Pain Location Answer Entry Date Author Back;Head;Neck 01/22/2025 9:43 PM EST Christina Fritz RN * Pain Orientation Answer Entry Date Author Mid;Lower 01/19/2025 9:17 PM EST Christina Fritz RN * Cardiac Question Answer Entry Date Author Cardiac ([facility]) WD 01/17/2025 4:00 PM EST Ofelia Peter RN * Respiratory Question Answer Entry Date Author Respiratory ([facility]) [facility] 01/23/2025 8:00 AM EST Ariadne Adame RN [...] Method Nasal cannula 01/23/2025 7:39 AM ES T Benji Gilbert Patient Position Lying 01/23/2025 11:25 AM EST [...] Response See orders 01/20/2025 1:27 AM Christina Lovell, RAI Name of Nurse Notified of Blood Glucose [...] 10:00 PM Cydney Garcia RN Food allergy, Jainism, or Cultural nutrition needs No 01/15/2025 10:00 [...] On;Patient in bed 01/23/2025 8: 00 AM Araidne Horner RN The Patient's Environment is Safe [...] Positioning Frequency Able to turn self 01/24/20 8:00 AM Ariadne Horner RN * Hygiene [...] AM Ariadne Horner RN Precautions Fall risk;Environmen guatam surveillance 01/23/2025 8:00 AM Ariadne Horner RN [...] available and working 01/23/2025 8:00 AM Ariadne Horner, RAI Additional Bedside Safety Bed in locked and [...] 2 01/15/2025 10:00 PM Cydney Garcia RN SECURITY PATROL OFFICER Evaluation Needed 2 01/15/2025 10:00 PM Cdyney Garcia RN * Assistive Devices Question Answer [...] Kingsley Herrera RN Time of Last Void 59636 01/16/2025 3:07 PM Kingsley Voss RN Date of Last Liquid 18008 01/16/2025 3:07 PM Kingsley Herrera RN Date of Last Solid 94540 01/16/2025 3:07 PM Kingsley Voss RN Time of Last Solid 0 01/16/2025 3:07 PM Kingsley Voss RN * Provider Notification Question Answer Entry Date Author Reason for Communication Review case 01/19/2025 3:10 AM Christina Lovell RN Notification Time 5220 01/20/2025 1:27 AM Christina Lovell, RAI * Hourly Rounding Question Answer Entry Date [...] Author Interventions Provided Introduced Patichandni t/Family to Cosmetology Professor Services 01/18/2025 2:30 PM Giancarlo Herrera * Outcomes Question Answer Entry Date Author Patient Outcomes Criminal Records Technician Services 01/18/2025 2:30 P M Giancarlo Herrera * Follow-Up Question Answer Entry Date Author Duration 10 minutes 01/18/2025 2:30 PM Giancarlo Herrera Pastoral Care Comment Cosmetology Professor made foll ow up visit with Rosa and introductory visit with her family. They are aware of Pastoral Services and availability. 01/18/2025 2:30 PM Giancarlo Herrera Last Date of Pastoral Care Contact [id number] 01/18/2025 2:30 PM EST Giancarlo Pradhan * Restart Vitals Timer Answer Entry Date Author Yes 01/23/2025 11:25 AM EST Gurpreet Gilbert oah * Injection Rate mL/s Answer Entry Date Author 2 01/16/2025 7:49 PM EST SteinbergTimmy ristopher * Height and Weight Question Answer Entry Date Author Height 63 01/16/2025 3:05 PM EST Kingsley Casey RN Height Method Stated 01/16/2025 3:05 PM Kingsley Lewis RN Weight Method Stated 01/16/2025 3:05 PM Kingsley Lewis RN IBW/kg (Calculated) 52.4 01/16/2025 3:05 PM Kingsley Herrera RN * Neurological Question Answer Entry Date Author Neuro Additional Assessments Enhanced Neuro Checks 01/16/2025 5:30 PM Felisa Forrest RN Neuro ([facility]) X 01/16/2025 5:30 PM Felisa Forrest RN Hand Grasp/Motor Function/Sensation Assessment Grasp;Dorsiflexion;Mo tor response;Sensation;Mo tor strength 01/16/2025 5:30 PM Felisa Forrest RN * HEENT Question Answer Entry Date Author HEENT ([facility]) X 01/16/2025 5:17 PM Felisa Forrest RN * Cardiac Question Answer Entry Date Author Cardiac ([facility]) WDL 01/16/2025 5:17 PM Felisa Forrest RN * Gastrointestinal Question Answer Entry Date Author Gastrointestinal ([facility]) WDL 01/16/2025 5:17 PM Felisa Forrest RN * Genitourinary Question Answer Entry Date Author Genitourinary ([facility]) X 01/16/2025 5:17 PM Felisa Kapadia RN * Psychosocial Question Answer Entry Date Author Psychosocial ([facility]) WDL 01/16/2025 5:17 PM Felisa Forrest RN [...] 01/23/2025 8:00 AM Ariadne Horner RN * Merrill Coma Scale Question Answer Entry Date Author Best Eye Response Spontaneous 01/23/2025 8:00 AM Ariadne Horner RN Best Verbal Response Oriented 01/23/2025 8:[address] Ariadne Adame RN Best Motor Response Follows commands 01/23/2025 [...] Limb Ataxia No Ataxia 01/17/2025 3:30 AM Cydney Bowen RN Visual Teague No visual loss 01/17/2025 3:30 AM Cydney Carlos RN Speech/Language Clear 01/17/2025 3:30 AM Cydney Carlos, RAI * Weight in (lb) to have BMI = 25 Answer Entry Date Author 140.8 01/16/2025 3:05 PM Juan Voss RN * BMI (Calculated) Answer Entry Date [...] Author Weight Change -0.33 01/22/2025 6:00 AM EST Alice Garber * Temp (in Celsius) for [place] IV Answer Entry Date Author 36.7 01/23/2025 [...] FLACC (Activity) 0 01/16/2025 5:17 PM Felisa Forrset RN Pain Rating: FLACC (Activity ) - Cry 0 01/16/2025 5:17 PM Felisa Forrest RN Pain Rating: FLACC (Activity ) - Consolability 0 01/16/2025 5:17 PM Felisa Forrest RN * Score: FLACC (Rest) Answer Entry Date Author 0 01/16/2025 5:17 PM Sylvia Forrest RN * Score: FLACC (Activity) Answer Entry Date Author 0 01/16/2025 5:17 PM Sylvia Forrest RN * Nutrition Question Answer Entry Date [...] Patient Electronics Cell phone 01/15/2025 10:00 PM E Cydney Craig RN * Patient Belongings Sent to Safe/Security Question Answer Entry Date Author Belongings Sent to Safe/Security None 01/16/20 10:00 PM Cydney Garcia RN * Integumentary Question Answer Entry Date Author Skin Color Pale 01/23/2025 8:00 AM Aridane Horner RN Skin Condition/Temp Warm;Dry 01/23/2025 8 :00 AM Ariadne Horner RN Skin Integrity Excoriation;Bruising 01/23/2025 8:00 AM Ariadne Horner RN Skin Turgor Non-tenting 01/21/2025 4:00 PM David Alfaro RN Bruising Characteristics Scattered 025 8:00 AM Ariadne Horner RN Integumentary (WDL) X 01/23/2025 8 :00 AM Ariadne Horner RN * Score Answer Entry Date Author 11.82 01/23/2025 1:13 PM Alena Patel * Confusion Assessment Method-ICU (CAM-ICU/PCAM-ICU) Question Answer [...] RN Urine Amount Medium 01/19/2025 9:02 AM Scar Glass RN * Stool Output/Assessment Question Answer Entry Date Author Unmeasured Stool Occurrence (hourly total) 1 [...] Risk Calculated Score Answer Entry Date Author Bre Landry 01/23/2025 8:00 AM Griselda [...] Date [place] [address] 01/19/2025 2:53 PM EST French Pleitez * Deterioration Index Score Question Answer Entry Date Author Deterioration Index Score 18.63 01/23/2025 1:01 PM Sang Pemberton * Unplanned Readmission Scores Question Answer Entry Date Author Unplanned Readmission Score 11.81 01/23/2025 12 :00 PM Sang Pemberton * PRN Medication Given Reason Answer Entry Date Author pain 01/22/2025 9:43 PM Christina Lovell RN * Malnutrition Screening Tool (MST) Question Answer Entry Date Author Have you recently lost weigh t without trying? 0 01/15/2025 10:00 PM yCdney Garcia, RAI Have you been eating poorly because of [...] to Beds Complete? Yes 8:21 AM Fide Lindsay PharmD Current Status Discharge to Facility-M2B Service Not Available 01/23/2025 8:21 AM Fide Lindsay PharmD Is the patient interested in Medication Bedside Delivery at Discharge? Yes, interested 01/23/2025 8:21 AM EST Fide Dacosta, PharmD * Augusto Coma Scale Numeric Answer Entry Date Author 15 01/23/2025 8:00 AM EST Griselda Adame ea, RN * Sub-Acute last PAC response Answer Entry Date Author accept 01/19/2025 1:59 PM EST Interface , [facility] * Sub-Acute Staus Answer Entry Date Author placed & closed 01/22/2025 1:21 PM EST [facility] , [facility] * Sub-Acute Referral Sent to Answer Entry Date Author [facility] 01/22/2025 1:21 PM EST In [facility] * Elevate heels task - custom formula [...] Normothermia Interventions Question Answer Entry Date Author [place] Applied Yes 01/16/2025 5:[address], RAI Is the patient normothermic? Yes 01/16/2025 5 [...] RN Hemodynamics 4 01/23/2025 8:00 AM Ariadne Giles RN Weight/Tissue Viability 3 01/23/2025 8:00 A [...] last 48 hours 0 01/23/2025 8:00 AM Nate Horner RN Deduction if patient has req uired blood or clotting factors during last 24 hours 0 01/23/2025 8:00 AM Ariadne Horner RN Deduction if patient has hyp othermia of 35 C or under (core temp) 0 01/23/2025 8:00 AM Ariadne Horner RN Rocco/Debra Pressure Risk Score 36 2024 8:00 AM [...] 01/23/2025 10:09 AM Amanda Ford RN * [facility] 6-Clicks Mobility Assessment Question Answer Entry Date [...] railing? 2 01/18/2025 10:24 AM Katelyn Roque [facility] 6-Clicks Mobility Asse ssment Total 12 [...] crush, chew, or split. 01/23/2025 nystatin (Mycostatin) 273226 UNIT/ML suspension 04/21/2024 pantoprazole (Protonix) 40 MG [...] from the original note were not included. 63048 What is Sepsis? Sepsis is a very [...] (ICU). Last Reviewed Date: 2024 00:00:00 ?? 7259-6205 [employer]. All rights reserved. This information is not intended as a substitute for professional medical care. Always follow your healthcare professional's instructions. * [facility] Jerome Henderson RN - 01/23/2025 12:18 PM EST Images from the original note were not included. 99892 Understanding Sepsis Sepsis is a life-threatening problem [...] . Last Reviewed Date: 2024 00:00:00 ?? 3300-1841 [employer]. All rights reserved. This information is not intended as a substitute for professional medical care. Always follow your healthcare professional's instructions. * [facility] - Jerome Henderson RN - 01/23/2025 12:18 PM EST Images from the original note were not included. [id number] Bacteremia, Suspected (Adult) Bacteremia is a bacterial [...] infection (pneumonia) ? Infection of a medical reception specialist placed in a vein or the bladder [...] provider Last Reviewed Date: 2024 00:00:00 ?? [employer]. All rights reserved. This information is not intended as a substitute for professional medical care. Always follow your healthcare professional's instructions. * Progress Notes - Amanda Meza RN - 01/23/2025 10:13 AM EST Case Management Discharge Note Rosa Perdomo 74 y.o. female CSN: [id number] Admission: 01/15/2025 9:57 PM Primary Problem: Postoperative sepsis (CMS/HCC) Primary Chip Frier: Patient is going to [facility] where staff can assist with care needs Assistance Available at Discharge: Current Outpatient/Agency/Support Group: clinic(s), DME Availability of Care Givers (#Hours): 24 hours (staff at [facility]) Family/Chip Frier(s) Willingness Assessed to care for patient at home: Yes Family/Chip Frier(s) Readiness Assessed to care for patient at home: Yes Housing Circumstances-Z Codes: Housing Circumstances (select all that apply): None Applicable Patient Referred to Financial or Community Resources: No community resources needed at this time. Going to [facility] Discharge Facility/Level of Care Needs: Discharge Facility/Level of Care Needs: 3-Intermediate Facility ([facility]) Patient's Choice of Community Agency(s): Patient's Choice of Community Agency(s): [facility] Patient/Family Anticipated Services at Transition: Patient/Family Anticipated Services at Transition: rehabilitation services, intermediate ([facility]) DME/Equipment Needed after Discharge: Equipment Currently Used at Home: walker, rollator, shower chair Equipment Needed After Discharge: other (see comments) (per [facility]) Readmission Within the Last 30 Days: Readmission Within the Last 30 Days: no previous admission in last 30 days Medicare Documentation: Medicare Second Notice?: Yes Date Second Notice Completed: 01/22/25 Time Second Notice Completed: 1111 Medicare Second Notice Recieved By: patient Follow-up: Chase Gunn MD [address] [place] [address] Discharge Transportation: Transportation Anticipated: other (see comments) (W/C transport, pickle processor at 2 pm.) Transportation Home at Discharge: [...] Has Acute recs, but request DESTINEY at [facility]. Per admissions (Stacey), they can accept patient today. Patient will need to be on Vancomycin for discharge, not Dapto. Number for report: [phone] (Unit 1) [place] Summary: [phone] Narcs: [facility] [place] Transport: Time for pickup changed to today 01/23 at [address] [facility]. Nurse, Stacey DANIELS (facility) and spouse notified [...] PCP name and Address: Chase Gunn MD [address] [place] [address] / [place] [address] Referring provider name and address: Chase Gunn MD [address] [place] [address] Chief Concern, Brief History of Present Illness, [...] at discharge. She was discharged to a intermediate facility with a plan for continued IV [...] 01/31/2025 1:00 PM Dona Nava PA [id number] [place] Test Results Pending At Discharge Pending Labs [...] present. Discharge Disposition/Condition Disposition: Nursing facility (specify) [facility] Condition: Stable (s/sx potential problems absent or [...] Ongoing, Progressing Intervention: Promote Activity and Functional [place] Flowsheets Taken 01/22/20252050 Self-Care Promotion: independence encouraged BADL personal objects within reach Taken 01/22/20252017 Activity Assistance Provided: assistance, 2 people * Huong Allen - Asher Walker DO - 01/22/2025 5:11 PM EST Spoke with pharmacy; daptomycin is not available at receiving facility so patient will remain on vancomycin post discharge. New OPAT note has been submitted. Please refer to OPAT note for complete details. Asher Walker DO Infectious Disease Fellow, PGY-5 Pager: [phone] Epic Chat Preferred * Asher Fraser DO [...] OPAT Team Attn: Dr. Sinha Fax #: [phone] Appointments: Co-clinic with JORGE Keating, & Dr. Sinha on 01/31/2025 at 1:00pm at: [facility]: [address] [place] [address] (Select Option 3 for IV Antibiotic / PICC line related issues) For questions regarding OPAT prior to discharge, reach out to the OPAT team via [employer] Secure Chat (Group: OPAT Referral Team). For all questions regarding OPAT after discharge should be directed to the OPAT Team at (Select Option 3 for IV Antibiotics/PICC Issues) between 8am-5pm. After 5 pm, or during weekends/[place] holidays, please call the paging teletray operator at to reach the on-call ID [...] single episode, in remission (CMS/HCC) MRSA bacteremia AMDELEINE (iron deficiency anemia) Gastroesophageal reflux disease without [...] Note Rosa Perdomo 74 y.o. female CSN: [id number] Admission: 01/15/2025 9:57 PM Primary Problem: Postoperative sepsis (CMS/HCC) Anticipated Discharge Date: 01/21 Has Discharge Plans Changed? No - [facility] Medicare Second Notice: Medicare Medicare Second Notice?: Yes Date Second Notice Completed: 01/22/25 Time Second Notice Completed: [facility] Medicare Second Notice Recieved By: patientNA at [...] Has Acute recs, but request DESTINEY at [facility]. Per admissions (Stacey), they cannot accept patient on Daptomycin. Discussed with MD, will remain on Vancomycin through 02/13/24. Number for report: [phone] (Unit 1) [place] Summary: [phone] Narcs: [facility] [place] Transport: Patient not qualifying for ambulance. Concerns over transfers into vehicle. Meets < 300% [facility]. W/C Transport arranged via CM office with [facility] for 01/23 at 11 am. Nurse, [...] Identify and Manage Fall Risk Flowsheets (Taken 01/22/2025747) Safety Promotion/Fall Prevention: clutter-free environment maintained room [...] Intervention: Promote Injury-Free Environment Flowsheets (Taken 01/22/2025 07) Safety Promotion/Fall Prevention: clutter-free environment maintained room organization consistent safety round/check completed Problem: Infection Goal: Absence of Infection Signs and Symptoms Outcome: Ongoing, Progressing Intervention: Prevent or Manage Infection Flowsheets (Taken 01/22/2025747) Infection Management: aseptic technique maintained Fever Reduction/Comfort Measures: lightweight clothing lightweight bedding Isolation Precautions: precautions maintained Problem: Self-Care Deficit Goal: Improved Ability to Complete Activities of Daily Living Outcome: Ongoing, Progressing Intervention: Promote Activity and Functional [place] Flowsheets Taken 01/22/2025755 Adaptive Equipment Use: use encouraged Taken 01/22/2025747 Activity Assistance Provided: assistance, 2 people Self-Care [...] incontinence pads utilized Taken 01/21/20251999 by Christina Fritz RN Activity Management: activity adjusted per tolerance [...] Ongoing, Progressing Intervention: Promote Activity and Functional [place] Flowsheets Taken 01/22/2025224 Self-Care Promotion: independence encouraged [...] Ongoing, Progressing Intervention: Promote Activity and Functional [place] Flowsheets (Taken 01/21/20251127) Activity Assistance Provided: assistance, [...] Ongoing, Progressing Intervention: Promote Activity and Functional [place] Flowsheets Taken 01/20/20252101 Self-Care Promotion: independence encouraged BADL personal objects within reach Taken 01/20/20251999 Activity Assistance Provided: assistance, 2 people * Procedures - Cailin Ha RN - 01/20/2025 5:07 PM ESTAssociated Order(s): Insert PICC line Insert PICC line Date/Time: 01/20/2025 5:08 PM Performed by: Cailin Ha RN Authorized by: Cleve Deleon MD Universal Protocol: Verbal consent obtained?: Yes Written consent [...] preference. Patient position: Supine Catheter Lot #: [id number] Catheter space and storage clerk: [employer] Catheter placed: Single lumen Catheter size: 4 [...] Intervention: Prevent Skin Injury Flowsheets (Taken 01/20/2025 1013) Body Position: turned Skin Protection: incontinence pads [...] Ongoing, Progressing Intervention: Promote Activity and Functional [place] Flowsheets (Taken 01/20/20251012) Activity Assistance Provided: assistance, [...] and Optimize Oral Intake Flowsheets (Taken 01/20/2025 020) Oral Nutrition Promotion: physical activity promoted Nutrition Interventions: food preferences provided Problem: Fall Injury Risk Goal: Absence of Fall and Fall-Related Injury Outcome: Ongoing, Progressing Intervention: Identify and Manage Contributors Flowsheets (Taken 01/20/2025 0201) Medication Review/Management: medications reviewed Self-Care Promotion: BADL [...] Ongoing, Progressing Intervention: Promote Activity and Functional [place] Flowsheets Taken 01/20/2025 020 Self-Care Promotion: BADL [...] Note Rosa Perdomo 74 y.o. female CSN: [id number] Admission: 01/15/2025 9:57 PM Primary Problem: Postoperative sepsis (CMS/HCC) Anticipated Discharge Date: 01/21 Has Discharge Plans Changed? No - home or agreeable to SNF (requesting [facility] if needed) Medicare Second Notice: Medicare [...] placed. PT/OT recs for Acute. Patient requesting [facility] because it is closer to home. Spouse had also previously indicated that Is where they would want her to go. Spoke with Stacey at facility (admissions) who is reviewing. Referrals also sent to other facilities. CM will continue to follow for discharge needs. Amanda Meza RN * Progress Notes - Renae Resendiz, MORTGAGE CONSULTANT, DNP - 01/19/2025 11:01 AM EST Images [...] is no recent study available for direct zkhs-bm-leve comparison. CT Lumbar Spine w IV Contrast [...] Value Units Date/Time Blood Culture (Aerobic/Anaerobet Set) [[id number]] Collected: 01/18/25 1323 Order Status: Sent Specimen: Blood, Venous Fungal Culture, Routine [[id number]] Collected: 01/16/25 1605 Order Status: Completed Specimen: Abscess from Back, Lower Updated: 01/18/25 1041 Culture No Fungal Growth <1 Week Fungal Culture, Tissue and DEANDRE [[id number]] Collected: 01/16/25 1614 Order Status: Completed Specimen: Foreign Body from Back, Lower Updated: 01/18/25 1022 Culture Reading Mycological 4 Weeks No Fungal Growth <1 Week DEANDRE Source not suitable for smear Blood Culture (Aerobic/Anaerobet Set) [[id number]] Collected: 01/16/25 0128 Order Status: Completed Specimen: Blood from Hand, Right Updated: 01/18/25 0403 Culture No growth at day 2 Routine Culture and Gram Stain [[id number]] (Abnormal) Collected: 01/16/25 1614 Order Status: Completed Specimen: Foreign Body from Back, Lower Updated: 01/17/25 1327 Culture Heavy Growth 4+ Biotype 1 Staphylococcus aureus 2+ Biotype 2 Staphylococcus aureus Abscess Culture and Gram Stain [[id number]] (Abnormal) Collected: 01/16/25 1605 Order Status: Completed [...] Non Respiratory Source and Acid Fast Stain [[id number]] Collected: 01/16/25 161 Order Status: Completed Specimen: Foreign Body from Back, Lower Updated: 01/17/25 0557 Acid Fast Stain Source not suitable for smear Anaerobic Culture [[id number]] Collected: 01/16/25 160 Order Status: Sent Specimen: Abscess from Back, Lower Updated: 01/16/25 1710 AFB Culture, Non Respiratory Source and Acid Fast Stain [[id number]] Collected: 01/16/25 160 Order Status: Canceled Specimen: Abscess from Back, Lower Updated: 01/16/251709 Fungal Culture, Sterile Body Fluid (NOT CSF) and DEANDRE [[id number]] Collected: 01/16/25 160 Order Status: Canceled Specimen: Abscess from Back, Lower Updated: 01/16/251709 Anaerobic Culture [[id number]] Collected: 01/16/251613 Order Status: Sent Specimen: Foreign [...] showed MRSA and she was transferred to [facility] for further management. Blood cultures collected at [facility] on 01/16 show NGTD. VINCENT took her [...] in their operative note. No indication of MATE FISHING VESSEL involvement. OPAT orders are in - will [...] Note Rosa Perdomo 74 y.o. female CSN: [id number] Room/Bed 135/135A Nutrition evaluation type: follow-up Reason for evaluation: Hospital course: 74 y/o F presented as a transfer from OSH for MRSA bacteremia. 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 S/p device explantation on 01/16/25 with Neurosurgery. [...] 37.74 Weight Evaluation: Obese-Class 2 (BMI 35-39.9) [place] Body Weight (kg): 52.2 Percent [place] Body Weight: 185 Adjusted Body Weight (kg): 63.4 Wt Readings from Last 10 Encounters: 01/16/25 96.6 kg (213 lb) 07/30/22 89.8 kg (198 lb) Estimated Needs: Metabolic Cart Study Results: Current Nutrition Intake: Diet Order: Adult Diet Diet Texture: Regular Adult Carbohydrate Restriction: Consistent CHO 2 (3617-1342 Feng, 80 g/meal) Percent Meals Eaten (%): 82% avg x 4 meals Diet Experience and Nutrition History: Diet Education Provided: Will monitor Pertinent home medications: Jainism needs: Nutrition Focused Physical Exam: Physical exam [...] (Individualized) Outcome: Ongoing, Progressing Flowsheets (Taken 01/19/2025 08) Patient/Family-Specific Goals (Include Timeframe): patient will remain free from falls and injury during shift Individualized Care Needs: saftey Anxieties, Fears or Concerns: none stated Goal: Absence of Hospital-Acquired Illness or Injury Outcome: Ongoing, Progressing Intervention: Identify and Manage Fall Risk Flowsheets (Taken 01/19/2025 08) Safety Promotion/Fall Prevention: activity supervised Intervention: Prevent [...] Ongoing, Progressing Intervention: Promote Activity and Functional [place] Flowsheets Taken 01/19/2025 0913 Adaptive Equipment Use: [...] continue to follow, Submitted by: Sierra Odonnell, PharmD 01/19/2025 7:51 AM * Care Plan [...] Ongoing, Progressing Intervention: Promote Activity and Functional [place] Flowsheets Taken 01/18/20251958 Self-Care Promotion: independence encouraged [...] 01/18/2025 2:30 PM EST Pastoral Care Note Cosmetology Professor made follow up visit with Rosa and introductory visit with her family. They are aware ofPastoral Services and availability. Referral From: Cosmetology Professor Initiated Pastoral Care Provided For: Patient, Spouse, Child(odalis) Patient Profile: Consult Reasons: Initial visit Spiritual Assessment: Support Systems/ Spiritual Resources: Prayer Spiritual Needs: Emotional support Spiritual Issues: Change/ transition Interventions: Interventions Provided: Introduced Patient/Family to Cosmetology Professor Services Pastoral Care Outcomes: Patient Outcomes: Is knowledgeable about Criminal Records Technician Services Giancarlo Pradhan * Procedures - Ethel [...] PACS * Progress Notes - Renae Resendiz, MORTGAGE CONSULTANT, DNP - 01/18/2025 12:53 PM EST Images [...] is no recent study available for direct [id number]-[id number] comparison. CT Lumbar Spine w IV Contrast [...] Value Units Date/Time Blood Culture (Aerobic/Anaerobet Set) [[id number]] Collected: 01/18/25 1323 Order Status: Sent Specimen: Blood, Venous Fungal Culture, Routine [[id number]] Collected: 01/16/25 1605 Order Status: Completed Specimen: Abscess from Back, Lower Updated: 01/18/25 1041 Culture No Fungal Growth <1 Week Fungal Culture, Tissue and DEANDRE [[id number]] Collected: 01/16/25 1614 Order Status: Completed Specimen: Foreign Body from Back, Lower Updated: 01/18/25 1022 Culture Reading Mycological 4 Weeks No Fungal Growth <1 Week DEANDRE Source not suitable for smear Blood Culture (Aerobic/Anaerobet Set) [[id number]] Collected: 01/16/25 0128 Order Status: Completed Specimen: Blood from Hand, Right Updated: 01/18/25 0403 Culture No growth at day 2 Routine Culture and Gram Stain [[id number]] (Abnormal) Collected: 01/16/25 1614 Order Status: Completed Specimen: Foreign Body from Back, Lower Updated: 01/17/25 1327 Culture Heavy Growth 4+ Biotype 1 Staphylococcus aureus 2+ Biotype 2 Staphylococcus aureus Abscess Culture and Gram Stain [[id number]] (Abnormal) Collected: 01/16/25 1605 Order Status: Completed [...] Non Respiratory Source and Acid Fast Stain [[id number]] Collected: 01/16/251613 Order Status: Completed Specimen: Foreign Body from Back, Lower Updated: 01/17/25 0557 Acid Fast Stain Source not suitable for smear Anaerobic Culture [[id number]] Collected: 01/16/25 160 Order Status: Sent Specimen: Abscess from Back, Lower Updated: 01/16/25 1710 AFB Culture, Non Respiratory Source and Acid Fast Stain [[id number]] Collected: 01/16/251604 Order Status: Canceled Specimen: Abscess from Back, Lower Updated: 01/16/25 1710 Fungal Culture, Sterile Body Fluid (NOT CSF) and DEANDRE [[id number]] Collected: 01/16/251604 Order Status: Canceled Specimen: Abscess from Back, Lower Updated: 01/16/25 171 Anaerobic Culture [[id number]] Collected: 01/16/251613 Order Status: Sent Specimen: Foreign [...] showed MRSA and she was transferred to [facility] for further management. Blood cultures collected at [facility] on 01/16 show NGTD. VINCENT took her [...] in their operative note. No indication of MATE FISHING VESSEL involvement. OPAT orders are in - will [...] admitted 01/15/2025 for work-up of Postoperative sepsis ([facility]). Problem List Active Hospital Problems Diagnosis Date Noted Date Diagnosed Postoperative sepsis ([facility]) 01/16/2025 Mixed hyperlipidemia 01/16/2025 Cellulitis of back except buttock 01/16/2025 Major depressive disorder with single episode, in remission ([facility]) 01/16/2025 MRSA bacteremia 01/16/2025 MADELEINE (iron deficiency anemia) 01/16/2025 Gastroesophageal reflux disease without esophagitis 01/16/2025 Transaminitis 01/16/2025 Hypertension 02/29/2024 Diabetes mellitus 02/29/2024 Procedures 01/16/2025 Procedures: EXPLORATION, WOUND, POSSIBLE SCS REMOVAL/REVISION, ALL OTHER INDICATED PROCEDURES Past Medical History Patient has a past medical history of Abnormal EKG, Anemia, Breast cyst, CKD (chronic kidney disease) stage 3, GFR 30-59 ml/min ([facility]), Depression, Diabetes mellitus, Dyspnea, HLD (hyperlipidemia), HTN (hypertension), Mitral valve prolapse, Paroxysmal A-fib, RSV (respiratory syncytial virus infection), Sciatica, SVT (supraventricular tachycardia) ([facility]), and Trigger finger. Past Surgical History Patient has a past surgical history that includes Colonoscopy; Esophagogastroduodenoscopy; Wrist surgery; Hernia repair; and Cholecystectomy. Precautions Medical Precautions: Fall precautions, Seizure precautions Subjective Pt and RN agreeable to initial OT evaluation. Pt reports she has not been out of bed in days. Participants in Care Family/Caregiver Present: No Supervisor Cold Rolling: Not Applicable Presentation Oxygen Therapy: Supplemental oxygen [...] Spouse Level of Mobility: Ambulatory- community Mobility [place]: Independent gait without device History of Falls: [...] Mobility Bed Mobility Exam: Scooting/Bridging Level of [place]: Dependent (scooting hips forward to edge of bed) Physical/Nonphysical Assist: Verbal Cues, Nonverbal cues (demo/gestures), Maximal cues, Additional assist utilized for safety Bed Mobility Exam: Supine to Sit Level of [place]: Moderate assist (50% patient's effort) Physical/Nonphysical Assist: HOB elevated, Moderate cues, Verbal Cues Assistive Device: Bed rails Transfers Transfer Exam: Sit to stand Level of [place]: Moderate assist (50% patient's effort) (x2 reps from edge of bed - 1st rep HYDRAULIC MECHANIC, 2nd rep to RW) Physical/Nonphysical Assist: Verbal Cues, Maximal cues, Additional assist utilized for safety Assistive Device: Walker, rolling Transfer Exam: Stand to Sit Level of [place]: Moderate assist (50% patient's effort) (poorly controlled descent) Physical/Nonphysical Assist: Verbal Cues, Maximal cues, Additional assist utilized for safety Assistive Device: Walker, rolling Transfer Exam: Bed to Chair/Chair to Bed Level of [place]: Moderate assist (50% patient's effort) (with significantly [...] a helper. 5 Set-up or Clean-up Assistance [place] sets up or cleans up; patient completes activity. [place] assists only prior to or following the activity. 4 Supervision or touching assistance [place] provides verbal cues and/or touching/steadying and/or contact guard assistance as patient completes activity. Assistance may be provided throughout the activity or intermittently. 3 Partial/Moderate Assistance [place] does LESS THAN HALF the effort. [place] lifts, holds or supports trunk or limbs, but provides less than half the effort. 2 Substantial/Maximal Assistance [place] does MORE THAN HALF the effort. [place] lifts or holds trunkor limbs and provides more than half the effort. 1 Dependent [place] does ALL of the effort. Patient does [...] admitted 01/15/2025 for work-up of Postoperative sepsis ([facility]). Problem List Active Hospital Problems Diagnosis Date [...] kidney disease) stage 3, GFR 30-59 ml/min ([facility]), Depression, Diabetes mellitus, Dyspnea, HLD (hyperlipidemia), HTN (hypertension), Mitral valve prolapse, Paroxysmal A-fib, RSV (respiratory syncytial virus infection), Sciatica, SVT (supraventricular tachycardia) ([facility]), and Trigger finger. Past Surgical History Patient has a past surgical history that includes Colonoscopy; Esophagogastroduodenoscopy; Wrist surgery; Hernia repair; and Cholecystectomy. Precautions Medical Precautions: Fall precautions, Seizure precautions Subjective Pt was agreeable to therapy today. Pt was glad to get to the chair today to brush her hair and her teeth. Participants in Care Family/Caregiver Present: No Supervisor Cold Rolling: Not Applicable Presentation Oxygen Therapy: Supplemental oxygen [...] Spouse Level of Mobility: Ambulatory- community Mobility [place]: Independent gait without device History of Falls: [...] Mobility Bed Mobility Exam: Scooting/Bridging Level of [place]: Dependent (scooting hips forward to edge of bed) Physical/Nonphysical Assist: Verbal Cues, Nonverbal cues (demo/gestures), Maximal cues, Additional assist utilized for safety Bed Mobility Exam: Supine to Sit Level of [place]: Moderate assist (50% patient's effort) Physical/Nonphysical Assist: HOB elevated, Moderate cues, Verbal Cues Transfers Transfer Exam: Sit to stand Level of [place]: Moderate assist (50% patient's effort) (x2 reps from edge of bed - 1st rep HYDRAULIC MECHANIC, 2nd rep to RW) Physical/Nonphysical Assist: Verbal Cues, Maximal cues, Additional assist utilized for safety Assistive Device: Walker, rolling Transfer Exam: Stand to Sit Level of [place]: Moderate assist (50% patient's effort) (poorly controlled descent) Physical/Nonphysical Assist: Verbal Cues, Maximal cues, Additional assist utilized for safety Assistive Device: Walker, rolling Transfer Exam: Bed to Chair/Chair to Bed Level of [place]: Moderate assist (50% patient's effort) (with significantly [...] below. Therapeutic Exercise (8 minutes) Access Code: [email or web address] URL: [email or web address] Date: 01/18/2025 Prepared by: Pk Exercises - Seated Ankle Pumps - 1 x daily - 7 x weekly - 1 sets - 10 reps - Seated Long Arc Quad - 1 x daily - 7 x weekly - 1 sets - 10 reps - Seated April - 1 x daily - 7 x weekly - 1 sets - 10 reps - Seated Hip Abduction - 1 x daily - 7 x weekly - 1 sets - 10 reps PT provide verbal education and demonstration on above exercises. Pt demonstrated verbal understanding. Standardized Assessments [facility] 6-Clicks Mobility Assessment Difficulty patient has [...] 3-5 steps with a railing?: A lot [facility] 6-Clicks Mobility Assessment Total : 12 [...] Note Rosa Perdomo 74 y.o. female CSN: [id number] Admission: 01/15/2025 9:57 PM Primary Problem: Postoperative sepsis (CMS/HCC) Anticipated Discharge Date: 01/23 Has Discharge Plans Changed? No - home or agreeable to SNF (requesting [facility] if needed) Medicare Second Notice: NA [...] orders and - eval pending. Patient requesting [facility] if needed. CM will continue to follow for discharge needs. Addendum: PT/OT recs for Acute rehab. Difference between Acute and Subacute explained to patient. Patient states she would like to go to [facility] as it is closer to home. Attempted to reach spouseper patient request to also discuss with him. Unable to reach, unable to leave . Referrals to be made for [facility] when therapy notes are in. left for admissions at [facility]. Amanda Meza RN * Care Plan - [...] Pain and Promote Comfort Flowsheets (Taken 01/17/2025 2658) Pain Management Interventions: medication (see MAR) Intervention: [...] precautions maintained * Consults - Giancarlo Pradhan 01/17/2025 8:45 PM EST Pastoral Care Note Cosmetology Professor visited with Rsoa, she reports she wants a visit but this is not the best time. Chaplainwill follow up tomorrow as able. Referral From: Cosmetology Professor Initiated Pastoral Care Provided For: Patient Patient Profile: Consult Reasons: Initial visit Spiritual Assessment: Support Systems/ Spiritual Resources: Family Spiritual Needs: Emotional support Interventions: Interventions Provided: Introduced Patient/Family to Cosmetology Professor Services Pastoral Care Outcomes: Patient Outcomes: Is knowledgeable about Criminal Records Technician Services Giancarlo Pradhan * Progress Notes - [...] Single Lumen PICC Patient Specific Outpatient Circumstances: [address] [place] [address] Contact information Rosa Perdomo [phone] (home) Extended Emergency Contact Information Primary Emergency Contact: Westley Perdomo Relation: Spouse Supervisor Cold Rolling needed? No Secondary Emergency Contact: Oumou Ocasio Relation: Daughter Outpatient services (including home infusion, home health, facility referral: See recent case management/social work note for finalization of services ID follow up appointment: Future Appointments Date Time Provider Department Center 01/31/2025 1:00 PM Dona Nava PA [id number] [place] Patient Assessment After review and discussion with the ID physician, the patient is currently enrolled in the Modified OPAT program. Patient is unable to administer IV antimicrobial therapy at home. But is appropriated for the Modified OPAT program. Please direct questions to OPAT referral team, another member of the OPAT team, or the ID consulting provider via secure chat or staff messaging in [employer]. OPAT Modified program for IV antimicrobial therapy [...] describe further: OPAT at a medical/nursingfacility (e.g, LTAC,[facility], Swing Bed, Nursing facility) Patient [...] Willie Shrestha (insert ID provider) Fax #: [phone] Appointments: (Co-clinic 01/31/2025 Insert ID Provider; date and time) at: [facility]: [address] [place] [address] (Select Option 3 for IV Antibiotic / PICC line related issues) For questions regarding OPAT prior to discharge, reach out to the OPAT team via [employer] Secure Chat (Group: OPAT Referral Team). For all questions regarding OPAT after discharge should be directed to the OPAT Team at (Select Option 3 for IV Antibiotics/PICC Issues) between 8am-5pm. After 5 pm, or during weekends/ holidays, please call the paging teletray operator at to reach the on-call ID [...] Progressing Intervention: Prevent Skin Injury Flowsheets Taken 01/17/20254 Skin Protection: transparent dressing maintained Taken 01/17/2025 [...] Promote and Optimize Oral Intake Flowsheets (Taken 01/17/20251223) Oral Nutrition Promotion: physical activity promoted Nutrition [...] Intervention: Prevent or Manage Infection Flowsheets Taken 01/17/20254 Infection Management: aseptic technique maintained Fever Reduction/Comfort Measures: lightweight bedding lightweight clothing Taken 01/17/2025 0800 Isolation Precautions: protective precautions maintained * Progress Notes - Amanda Meza RN - 01/17/2025 9:40 AM EST Case Management Adult Progress Note Rosa Perdomo 74 y.o. female CSN: [id number] Admission: 01/15/2025 9:57 PM Primary Problem: Postoperative sepsis (CMS/HCC) Anticipated Discharge Date: 01/23 Has Discharge Plans Changed? No - home or agreeable to SNF (requesting [facility] if needed) Medicare Second Notice: NA [...] orders and - eval pending. Patient requesting [facility] if needed. CM will continue to [...] Please call with any questions or concerns. [phone] Collins Thorne MD Resident Physician, PGY-1 Department of Neurosurgery [facility] Cosigned by Fransisco Farley MD at [...] PM EST Operative Note Date: 01/16/2025 Location: [place] Name: Rosa Perdomo, : 1950, Diagnoses: Pre-op Diagnosis MRSA bacteremia Infection of spinal cord stimulator, initial encounter Wound infection Post-op Diagnosis MRSA bacteremia Infection of spinal cord stimulator, initial encounter Wound infection Procedure(s): Explantation of entire spinal cord stimulator system (leads and IPG) Irrigation and debridement of midline lumbar and right paraspinal wounds Attending Surgeon(s): * Fransisco Farley - Primary Human Services Instructor(s): * Janene Terrell MD - Resident - [...] obstruction 01/16/25 08 Output (mL) 1000 mL 01/16/25899 Specimen: Specimens ID Source Frozen? A Back, Lower Description: Flank Abscess B Back, Lower Description: Hardware for culture Findings: Right paraspinal/flank abscess within IPG pocket tracking into midline lumbar wound. Indications: Rosa Perdomo is an 74 y.o. lady with SCS stimulator placed recently by OS, presentingwith sepsis, MRSA bacteremia, found to have [...] showed MRSA and she was transferred to [facility] for further management. It appears that prior to the tr [facility] a PICC was placed while blood cultures were pending. Upon admission at [facility], no discharge was noted, but extensive cellulitis [...] Value Units Date/Time Blood Culture (Aerobic/Anaerobet Set) [[id number]] Collected: 01/16/25 0128 Order Status: Completed Specimen: Blood from Hand, Right Updated: 01/16/25 0501 Culture Culture in lab Antimicrobials: -- Vancomycin [id number] 12/9 - present -- Cefepime IV 2g Q12H [...] showed MRSA and she was transferred to [facility] for further management. Blood cultures collected at [facility] on 01/16 show NGTD. NSGY took her [...] using miconazole nitrate ointment BID. Wound Assessment [place];Denuded Rebecca-Wound Assessment Red;Rash Treatments Other (Comment) (ordered [...] Care Review Outcome: Ongoing, Progressing Flowsheets (Taken 01/16/20251199) Progress: no change Plan of Care Reviewed With: patient Goal: Patient-Specific Goal (Individualized) Outcome: Ongoing, Progressing Flowsheets (Taken 01/16/2025799) Patient/Family-Specific Goals (Include Timeframe): Patient will remain [...] Note Rosa Perdomo 74 y.o. female CSN: [id number] Admission: 01/15/2025 9:57 PM Primary Problem: Postoperative sepsis ([facility]) Green End Worker reviewed chart and spoke with patient and spouse at bedside to complete this Initial Case Management Assessment. PCP: Chase Gunn MD Emergency Contact: Extended Emergency Contact Information Primary Emergency Contact: Westley Perdomo Relation: Spouse Supervisor Cold Rolling needed? No Secondary Emergency Contact: Oumou Ocasio Relation: Daughter Insurance: Primary Visit Coverage Payer Plan Sponsor Code Group Number Group Name MEDICARE MEDICARE A & B -- -- -- Primary Visit Coverage Subscriber Subscriber ID Subscriber Name Subscriber [facility] Subscriber Address [id number] ROSA PERDOMO [id number] [place] [address] Secondary Visit Coverage Payer Plan Sponsor Code Group Number Group Name [facility] -- [id number] -- Secondary Visit Coverage Subscriber Subscriber ID Subscriber Name Subscriber [facility] Subscriber Address [id number] WESTLEY PERDOMO -- [address] [place] [address] Patient information: Primary Caregiver: Self Accompanied by/Relationship: spouse Support System: Immediate family Daily Living Activities: Functional Status: Independent Living Arrangements: Spouse/Significant other Type of Residence: Private residence, Multi Level (lives only on first floor, ramp entry) [address] [facility] [address] Smoker in the Home?: Yes Current DME: [...] HD and HI Living Will/Advance Directive/Power of Wire Web Worker /Guardian: Have you reviewed your Advance Directive [...] is recommended, would like to go to [facility]. CM will continue to follow for discharge needs. Amanda Meza RN * Consults - Nani Leija RD - 01/16/2025 9:06 AM ESTAssociated Order(s): IP CONSULT TO NUTRITION SERVICES Adult Nutrition Evaluation Note Rosa Perdomo 74 y.o. female CSN: [id number] Room/Bed 135/135A Nutrition evaluation type: assessment Reason for evaluation: provider consult Hospital course: 74 y/o F presented as a transfer from OSH for MRSA bacteremia. 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 To OR 01/16 for exploration vs removal [...] (98.6 ??F) Oxygen Therapy: None (Room air) Merrill Coma Scale Score: 15 Isael Scale Score: [...] 37.81 Weight Evaluation: Obese-Class 2 (BMI 35-39.9) [place] Body Weight (kg): 52.2 Percent [place] Body Weight: 185 Adjusted Body Weight (kg): 63.4 Wt Readings from Last 10 Encounters: 01/15/25 96.8 kg (213 lb 6.5 oz) 07/30/22 89.8 kg (198 lb) Estimated Needs: Metabolic Cart Study Results: Current Nutrition Intake: Diet Order: NPO Diet Experience and Nutrition History: Diet Education Provided: Will monitor Pertinent home medications: Jainism needs: Nutrition Focused Physical Exam: Physical exam [...] Please call with any questions or concerns. [phone] Collins Thorne MD Resident Physician, PGY-1 Department of Neurosurgery [facility] Attending Attestation - Fransisco Yarbrough MD: [...] encouraged Intervention: Promote Injury-Free Environment Flowsheets (Taken 01/16/2025 05) Safety Promotion/Fall Prevention: activity supervised assistive device/personal items within reach Problem: Skin Injury Risk Increased Goal: Skin Health and Integrity Outcome: Ongoing, Not Progressing Intervention: Optimize Skin Protection Flowsheets Taken 01/16/2025 05 Pressure Reduction Techniques: frequent weight shift encouraged [...] 1:30 AM * H&P - Naina Dubois, BARTOLO - 01/16/2025 12:41 AM EST Images from [...] Family History: Family History[3] Social History: Living: [place] [id number] with family Marital Status: Alcohol Use: denies [...] for: O2SAT , BD , BE , UNS7AXK , PCO2 , PH , PO2 , [id number] Venous Blood Gas: No results found for: BDVEN , BEVEN , MXJ2EMP , BKC6HFA , PO2VEN , E1BOXESU , QIL2VCOFBAQ Microbiology: Results Procedure Component Value Units Date/Time Blood Culture (Aerobic/Anaerobet Set) [[id number]] Order Status: Sent Specimen: Blood, Venous Imaging [...] L spine w/wo contrast pending -LR @ 100/[id number]-[id number] as appropriate -Continuous telemetry 2/2 hospital transfer -SCDs for DVT prevention, hold [...] APRN Department of Internal Medicine Division of [facility] Secure chat preferred [1] Past Medical [...] mL/hr at 01/16/25 013, 100 mL/hr at 01/16/25134 magnesium sulfate IVPB 2 g, 2 g, [...] 4 mg,4 mg, Oral, q6h PRN, Naina Dubois, BARTOLO oxyCODONE (Roxicodone) immediate release tablet 5 mg, [...] q12h, Fransisco Farley MD, 10 mL at 01/16/25 013 sodium chloride 0.9 % flush 10 mL, [...] Description 02/14/2025 1:00 PM EST Office Visit [facility] [address] [place] [address] Asher Sinha MD [address] [place] [address] 03/27/2025 8:30 AM EST Consult [facility] [address] [place] [address] Fransisco Farley MD [address] [place] [address] Pending Results Name Type Priority [...] 2:31 AM EST PHOSPHORUS, PLASMA Routine 01/17/2025 2 :31 AM EST MAGNESIUM, PLASMA Routine 01/17/2025 2:3 [...] UNSOLICITED RESULTS Routine 01/16/2025 3:19 PM EST HI EXPLORE WOUND,ABDOMEN/FLANK/BA CK 01/16/2025 3:09 PM EST [...] Plasma 14.9 ug/mL 01/31/2025 2:32 PM EST [facility] Blood Venous blood specimen / Unknown Venipuncture / Unknown 01/31/2025 12:57 PM EST 01/31/2025 1:01 PM EST us Merlin Massey MD LAB BLOOD ORDERABLES Final Resul t [facility] [address] [place] [address] * (ABNORMAL) Comprehensive metabolic panel (01/31/2025 12:57 PM EST) Glucose, Plasma 177(H) 74 - 99 mg/dL 01/31/2025 2:32 PM EST [facility] BUN, Plasma 19 8 - 23 mg/dL 01/31/2025 2:32 PM EST [facility] Creatinine, Plasma 1.15(H) 0.60 - 1.10 mg/dL 01/31/2025 2:32 PM EST [facility] BUN/Creatinine Ratio 17 01/31/2025 2:32 PM EST [facility] Sodium, Plasma 138 136 - 145 mmol/L 01/31/2025 2:32 PM EST [facility] Potassium, Plasma 4.1 3.6 - 4.9 mmol/L 01/31/2025 2:32 PM EST [facility] Chloride, Plasma 98 97 - 107 mmol/L 01/31/2025 2:32 PM EST [facility] CO2, Plasma 27 22 - 29 mmol/L 01/31/2025 2:32 PM EST [facility] Anion Gap 13 6 - 16 mmol/L 01/31/2025 2:32 PM EST [facility] Total Calcium, Plasma 9.4 8.9 - 10.2 mg/dL 01/31/2025 2:32 PM EST [facility] Total Protein 6.9 6.3 - 7.9 g/dL 01/31/2025 2:32 PM EST [facility] Albumin, Plasma 3.8 3.5 - 5.2 g/dL 01/31/2025 2:32 PM EST [facility] AST, Plasma 29 10 - 35 U/L 01/31/2025 2:32 PM EST [facility] ALT, Plasma 24 10 - 35 U/L 01/31/2025 2:32 PM EST [facility] Alkaline Phosphatase, Plasma 121 46 - 142 U/L 01/31/2025 2:32 PM EST [facility] Total Bilirubin, Plasma 0.2 0.2 - 1.1 mg/dL 01/31/2025 2:32 PM EST [facility] eGFRcr 50.1 mL/min/1.7 3m*2 01/31/2025 2:32 PM EST [facility] Comment:Reported eGFRcr in m L/min/1.73m2 is based the CKD-EPI 2020 equation that does not use a race coefficient. Blood Venous blood specimen / Unknown Venipuncture / Unknown 01/31/2025 12:57 PM EST 01/31/2025 1:01 PM EST us Merlin Massey MD LAB BLOOD ORDERABLES Final Resul t [facility] [address] [place] [address] * (ABNORMAL) CBC and Differential (01/31/2025 12:57 PM EST) WBC Count 5.78 3.70 - 10.30 10*3/uL LAB HEMATOLOGY METHOD 01/31/2025 2:26 PM EST [facility] RBC Count 3.46(L) 3.90 - 5.20 10*6/uL LAB HEMATOLOGY METHOD 01/31/2025 2:26 PM EST [facility] HGB 10.8(L) 11.2 - 15.7 g/dL LAB HEMATOLOGY METHOD 01/31/2025 2:26 PM EST [facility] HCT 34.3 34.0 - 45.0 % LAB HEMATOLOGY METHOD 01/31/2025 2:26 PM EST [facility] Platelet Count 313 155 - 369 10*3/uL LAB HEMATOLOGY METHOD 01/31/2025 2:26 PM [facility] MCV 99(H) 79 - 98 fL LAB HEMATOLOGY METHOD 01/31/2025 2:26 PM [facility] MCH 31.2 26.0 - 32.0 pg LAB HEMATOLOGY METHOD 01/31/2025 2:26 PM [facility] MCHC 31.5 30.7 - 35.5 g/dL LAB HEMATOLOGY METHOD 01/31/2025 2:26 PM [facility] RDW 14.6(H) 11.5 - 14.5 % LAB HEMATOLOGY METHOD 01/31/2025 2:26 PM [facility] MPV 9.8 8.8 - 12.5 fL LAB HEMATOLOGY METHOD 01/31/2025 2:26 PM [facility] nRBC 0.0 <=0.0 per 100 WBCs LAB HEMATOLOGY METHOD 01/31/2025 2:26 PM [facility] Differential Type Automated LAB HEMATOLOGY METHOD 01/31/2025 2:26 PM [facility] Neutrophils % 58 % LAB HEMATOLOGY METHOD 01/31/2025 2:26 PM [facility] Lymphocytes % 23 % LAB HEMATOLOGY METHOD 01/31/2025 2:26 PM [facility] Monocytes % 12 % LAB HEMATOLOGY METHOD 01/31/2025 2:26 PM EST [facility] Eosinophils % 6 % LAB HEMATOLOGY METHOD 01/31/2025 2:26 PM EST [facility] Basophils % 1 % LAB HEMATOLOGY METHOD 01/31/2025 2:26 PM EST [facility] Immature Granulocytes % 0 % LAB HEMATOLOGY METHOD 01/31/2025 2:26 PM EST [facility] Neutrophils Absolute 3.37 1.60 - 6.10 10*3/uL LAB HEMATOLOGY METHOD 01/31/2025 2:26 PM EST [facility] Lymphocytes Absolute 1.33 1.20 - 3.90 10*3/uL LAB HEMATOLOGY METHOD 01/31/2025 2:26 PM EST [facility] Monocytes Absolute 0.71 0.30 - 0.90 10*3/uL LAB HEMATOLOGY METHOD 01/31/2025 2:26 PM EST [facility] Eosinophils Absolute 0.32 0.00 - 0.50 10*3/uL LAB HEMATOLOGY METHOD 01/31/2025 2:26 PM EST [facility] Basophils Absolute 0.04 0.00 - 0.10 10*3/uL LAB HEMATOLOGY METHOD 01/31/2025 2:26 PM EST [facility] Immature Granulocytes Absolute 0.01 0.00 - 0.06 10*3/uL LAB HEMATOLOGY METHOD 01/31/2025 2:26 PM EST [facility] Blood Venous blood specimen / Unknown Venipuncture / Unknown 01/31/2025 12:57 PM EST 01/31/2025 1:01 PM EST Narrative [facility] - 01/31/2025 2:26 PM EST Therapeutic decision making should be based on absolute values, rather than percentages. us Merlin Massey MD LAB BLOOD ORDERABLES Final Resul t [facility] [address] [place] [address] * (ABNORMAL) POCT glucose meter (01/23/2025 8:18 AM EST) POCT Glucose 147(H) 74 - 99 mg/dL 01/23/2025 8:20 AM EST [facility] Comment:Accuracy of a glucos [...] 01/23/2025 8:20 AM EST [facility] Welder Operator ID Benji Gilbert 01/23/2025 8:20 AM EST [facility] Device ID [id number] 01/23/2025 8:20 AM EST [facility] Specimen Type POC Capillary 01/23/2025 8:20 AM EST [facility] Blood Capillary blood specimen / Unknown 01/23/2025 8:18 AM EST 01/23/2025 8:20 AM EST us Merlin Massey MD LAB POINT OF CARE TE ST DOCKED DEVICE UNSOLICITED RESULTS Final Result Performing Organization Address City/[facility] Co de Phone Number [facility] [address] [place] [address] * (ABNORMAL) POCT glucose meter (01/22/2025 8:20 PM EST) [facility] POCT Glucose 230(H) 74 - 99 [...] Comment 01/22/2025 8:26 PM EST [facility] Welder Operator ID Felisa Sarmiento 025 8:26 PM EST [facility] Device ID [id number] 01/22/2025 8:26 PM EST [facility] Specimen Type POC Capillary 01/22/2025 8:26 PM EST [facility] Blood Capillary blood specimen / Unknown 01/22/2025 8:20 PM EST 01/22/2025 8:26 PM EST us Cleve Deleon MD LAB POINT OF CARE TE ST DOCKED DEVICE UNSOLICITED RESULTS Final Result Performing Organization Address City/[facility]/ZIP Co de Phone Number [facility] [address] [place] [address] * (ABNORMAL) POCT glucose meter (01/22/2025 5:05 PM EST) Pathologist [facility] POCT Glucose 188(H) 74 - 99 mg/dL [...] 01/22/2025 5:06 PM EST [facility] Welder Operator ID Jayy Travis 01/23/20 5:06 PM EST [facility] Device ID [id number] 01/22/2025 5:06 PM EST [facility] Specimen Type POC Capillary 01/22/2025 5:06 PM EST [facility] Blood Capillary blood specimen / Unknown 01/22/2025 5:05 PM EST 01/22/2025 5:06 PM EST Cleve Deleon MD LAB POINT OF CARE TE ST DOCKED DEVICE UNSOLICITED RESULTS Final Result [facility] [address] [place] [address] * (ABNORMAL) POCT glucose meter (01/22/2025 11:53 AM EST) [facility] POCT Glucose 229(H) 74 - 99 mg/dL [...] 01/22/2025 11:55 AM EST [facility] Welder Operator ID Jayy Travis 01/23/20 11:55 AM EST [facility] Device ID [id number] 01/22/2025 11:55 AM EST [facility] Specimen Type POC Capillary 01/22/2025 11:55 AM EST [facility] Blood Capillary blood specimen / Unknown 01/22/2025 11:53 AM EST 01/22/2025 11:55 AM EST us Cleve Deleon MD LAB POINT OF CARE TE ST DOCKED DEVICE UNSOLICITED RESULTS Final Result Performing Organization Address City/[facility]/ZIP Co de Phone Number [facility] [address] [place] [address] * (ABNORMAL) POCT glucose meter (01/22/2025 7:51 AM EST) POCT Glucose 141(H) 74 - 99 mg/dL 01/22/2025 7:52 AM EST [facility] Comment:Accuracy of a glucos e result [...] for testing. Comment 01/22/2025 7:52 AM EST [facility] Welder Operator ID AngyJayy 01/23/20 7:52 AM EST [facility] Device ID [id number] 01/22/2025 7:52 AM EST [facility] Specimen Type POC Capillary 01/22/2025 7:52 AM EST [facility] Blood Capillary blood specimen / Unknown 01/22/2025 7:51 AM EST 01/22/2025 7:52 AM EST us Cleve Deleon MD LAB POINT OF CARE TE ST DOCKED DEVICE UNSOLICITED RESULTS Final Result Performing Organization Address City/[facility]/ZIP Co de Phone Number [facility] [address] [place] [address] * Vancomycin, Peak, Plasma Please draw ~2 hours after 0300 dose on 01/22 finishes infusing. Consider obtaining level via peripheral stick. If peripheral stick is not feasible, please ensure that line is flushed well prior to drawing level. Thanks! (01/22/2025 6:32 AM EST) Vancomycin, Peak, Plasma 29.1 20.0 - 40.0 ug/mL 01/22/2025 7:07 AM EST [facility] Blood Venous blood specimen / Unknown Venipuncture / Unknown 01/22/2025 6:32 AM EST 01/22/2025 6:37 AM EST Narrative [facility] - 01/22/2025 7:07 AM EST Therapeutic Peak level: 20-40ug/mL Supra-therapeutic Peak level: >40 ug/mL Cleve Deleon MD LAB BLOOD ORDERABLES Final Re sult [facility] [address] [place] [address] * Vancomycin, Trough, Plasma Please draw ~30 minutes prior to dose due at 0300 on 01/22. ??Please do NOT hold dose awaiting level to return. Consider obtaining level via peripheral stick. If peripheralstick is not feasible, please ensure that line/p... (01/22/2025 3:04 AM EST) [facility] Vancomycin, Trough, Plasma 13.7 10.0 - 20.0 ug/mL 01/22/2025 3:45 AM EST [facility] Blood Venous blood specimen / Unknown Venipuncture / Unknown 01/22/2025 3:04 AM EST 01/22/2025 3:15 AM EST Narrative [facility] - 01/22/2025 3:45 AM EST Therapeutic Trough level: 10-20ug/mL Supra-therapeutic Trough level: >20 ug/mL Cleve Deleon MD LAB BLOOD ORDERABLES Final Re sult [facility] [address] [place] [address] * (ABNORMAL) POCT glucose meter (01/21/2025 9:42 PM EST) [facility] POCT Glucose 186(H) 74 - 99 mg/dL 01/21/2025 9:43 PM EST [facility] Comment:Accuracy of a glucos e result [...] Comment 01/21/2025 9:43 PM EST [facility] Welder Operator ID Alice Garber 01/21/2025 9:43 PM EST [facility] Device ID [id number] 01/21/2025 9:43 PM EST [facility] Specimen Type POC Capillary 01/21/2025 9:43 PM EST [facility] Blood Capillary blood specimen / Unknown 01/21/2025 9:42 PM EST 01/21/2025 9:43 PM EST us Cleve Deleon MD LAB POINT OF CARE TE ST DOCKED DEVICE UNSOLICITED RESULTS Final Result Performing Organization Address City/State/[facility] de Phone Number [facility] [address] [place] [address] * (ABNORMAL) POCT glucose meter (01/21/2025 5:12 PM EST) [facility] Signature POCT Glucose 214(H) 74 - 99 mg/dL 01/21/2025 5:14 PM EST [facility] Comment:Accuracy of a glucos [...] Comment 01/21/2025 5:14 PM EST [facility] Welder Operator ID Sabine Garrett 01/21/2025 5:14 PM EST [facility] Device ID [id number] 01/21/2025 5:14 PM EST [facility] Specimen Type POC Capillary 01/21/2025 5:14 PM EST [facility] Blood Capillary blood specimen / Unknown 01/21/2025 5:12 PM EST 01/21/2025 5:14 PM EST us Cleve Deleon MD LAB POINT OF CARE TE ST DOCKED DEVICE UNSOLICITED RESULTS Final Result Performing Organization Address City/[facility]/ZIP Co de Phone Number [facility] [address] [place] [address] * (ABNORMAL) POCT glucose meter (01/21/2025 12:15 [...] for testing. Comment 01/21/2025 12:20 PM EST [facility] Welder Operator ID QuinnShelleyAlysa R 01/21/2025 12:20 PM EST [facility] Device ID [id number] 01/21/2025 12:20 PM EST [facility] Specimen Type POC Capillary 01/21/2025 12:20 PM EST [facility] Blood Capillary blood specimen / Unknown 01/21/2025 12:15 PM EST 01/21/2025 12:20 PM EST us Cleve Deleon MD LAB POINT OF CARE TE ST DOCKED DEVICE UNSOLICITED RESULTS Final Result Performing Organization Address City/[facility] Co de Phone Number [facility] [address] [place] [address] * (ABNORMAL) POCT glucose meter (01/21/2025 8:15 [...] 01/21/2025 8:19 AM EST [facility] Welder Operator ID Alysa Quinn 01/21/2025 8:19 AM EST [facility] Device ID [id number] 01/21/2025 8:19 AM EST [facility] Specimen Type POC Capillary 01/21/2025 8:19 AM EST [facility] Blood Capillary blood specimen / Unknown 01/21/2025 8:15 AM EST 01/21/2025 8:19 AM EST us Cleve Deleon MD LAB POINT OF CARE TE ST DOCKED DEVICE UNSOLICITED RESULTS Final Result Performing Organization Address City/[facility] Co de Phone Number [facility] [address] [place] [address] * (ABNORMAL) POCT glucose meter (01/20/2025 7:48 [...] 01/20/2025 7:49 PM EST [facility] Welder Operator ID Silva Coates 025 7:49 PM EST [facility] Device ID [id number] 01/20/2025 7:49 PM EST [facility] Specimen Type POC Capillary 01/20/2025 7:49 PM EST [facility] Blood Capillary blood specimen / Unknown 01/20/2025 7:48 PM EST 01/20/2025 7:49 PM EST us Cleve Deleon MD LAB POINT OF CARE TE ST DOCKED DEVICE UNSOLICITED RESULTS Final Result Performing Organization Address City/[facility]/ZIP Co de Phone Number [facility] [address] [place] [address] * XR Chest 1 View (01/20/2025 5:57 [...] Johana Coyne MD on 01/20/2025 6:08 PM Cleve Deleon MD IMG XR PROCEDURES Final Resul t * PICC SINGLE LUMEN (SMARTFORM LINK) (01/20/2025 5:08 PM EST) Narrative Cailin Ha RN - 01/20/2025 5:08 PM EST Cailin Ha RN 01/20/2025 6:04 PM Insert PICC line Date/Time: 01/20/2025 5:08 PM Performed by: Cailin Ha RN Authorized by: Cleve Deleon MD [place] Protocol: Verbal consent obtained?: Yes Written consent [...] preference. Patient position: Supine Catheter Lot #: [id number] Catheter space and storage clerk: [employer] Catheter placed: Single lumen Catheter size: 4 [...] - 99 mg/dL 01/20/2025 5:06 PM EST [facility] Comment:Accuracy of a glucos e result [...] for testing. Comment 01/20/2025 5:06 PM EST [facility] Welder Operator ID Jane Wilson 01/20/2025 5:06 PM EST [facility] Device ID [id number] 01/20/2025 5:06 PM EST [facility] Specimen Type POC Capillary 01/20/2025 5:06 PM EST [facility] Blood Capillary blood specimen / Unknown 01/20/2025 5:05 PM EST 01/20/2025 5:06 PM EST us Cleve Deleon MD LAB POINT OF CARE TE ST DOCKED DEVICE UNSOLICITED RESULTS Final Result Performing Organization Address City/State/[facility] de Phone Number [facility] [address] [place] [address] * (ABNORMAL) POCT glucose meter (01/20/2025 11:57 AM EST) POCT Glucose 228(H) 74 - 99 mg/dL 01/20/2025 11:59 AM EST [facility] Comment:Accuracy of a glucos [...] Comment 01/20/2025 11:59 AM EST [facility] Welder Operator ID Jane Wilson 01/20/2025 11:59 AM EST [facility] Device ID [id number] 01/20/2025 11:59 AM EST [facility] Specimen Type POC Capillary 01/20/2025 11:59 AM EST [facility] Blood Capillary blood specimen / Unknown 01/20/2025 11:57 AM EST 01/20/2025 11:59 AM EST us Cleve Deleon MD LAB POINT OF CARE TE ST DOCKED DEVICE UNSOLICITED RESULTS Final Result Performing Organization Address City/[facility] Co de Phone Number [facility] [address] [place] [address] * SEND SARA MESSAGE (01/20/2025 11:02 AM EST) Urine Urine specimen obtained by clean catch procedure / Unknown Non-blood Collection / Unknown 01/20/2025 11:02 AM EST 01/20/2025 11:06 AM EST us Cleve Deleon MD LAB URINE ORDERABLES Final Re sult Performing Organization Address City/[facility] Co de Phone Number [facility] [address] [place] [address] * (ABNORMAL) Urine Culture (01/20/2025 11:02 AM EST) Culture 10,000 - 100,000 CFU/mL Trista albicans(A) 01/22/2025 7:50 AM EST [facility] Comment:This isolate has bee n identified using the FDA Approved [employer] System Urine Urine specimen obtained by clean catch procedure / Unknown Non-blood Collection / Unknown 01/20/2025 11:02 AM EST 01/20/2025 11:06 AM EST us Cleve Deleon MD LAB MICROBIOLOGY - GENERAL OR DERABLES Final Result Performing Organization Address [facility] de Phone Number [facility] [address] [place] [address] * Urinalysis Microscopic Examination (01/20/2025 11:02 AM EST) Urine Urine specimen obtained by clean catch procedure / Unknown Non-blood Collection / Unknown 01/20/2025 11:02 AM EST 01/20/2025 11:06 AM EST us Cleve Deleon MD LAB URINE ORDERABLES Final Re sult Performing Organization Address City/[facility]/ZIP Co de Phone Number [facility] [address] [place] [address] * Urine Avery Panel (01/20/2025 11:02 AM EST) Extra Sent for Culture 01/20/2025 1:02 PM [facility] Urine Urine specimen obtained by clean catch procedure / Unknown Non-blood Collection / Unknown 01/20/2025 11:02 AM EST 01/20/2025 11:06 AM EST us Cleve Deleon MD LAB URINE ORDERABLES Final Re sult [facility] [address] [place] [address] * (ABNORMAL) Urinalysis with reflex microscopic (Culture NOT Included) (01/20/2025 11:02 AM EST) Color, Urine Yellow LAB URINALYSIS - AUTOMATED METHOD 01/20/2025 11:24 AM [facility] Clarity, Urine Cloudy LAB URINALYSIS - AUTOMATED METHOD 01/20/2025 11:24 AM [facility] Spec [place], Urine 1.017 1.005 - 1.030 LAB URINALYSIS - AUTOMATED METHOD 01/20/2025 11:24 AM [facility] pH, Urine 6.5 5.0 - 8.0 LAB URINALYSIS - AUTOMATED METHOD 01/20/2025 11:24 AM [facility] Protein, Urine Trace(A) Negative mg/dL LAB URINALYSIS - AUTOMATED METHOD 01/20/2025 11:24 AM [facility] Glucose, Urine >=1000(A) Negative mg/dL LAB URINALYSIS - AUTOMATED METHOD 01/20/2025 11:24 AM [facility] Ketones, Urine Negative Negative mg/dL LAB URINALYSIS - AUTOMATED METHOD 01/20/2025 11:24 AM [facility] Blood, Urine Trace(A) Negative LAB URINALYSIS - AUTOMATED METHOD 01/20/2025 11:24 AM [facility] Bilirubin, Urine Negative Negative LAB URINALYSIS - AUTOMATED METHOD 01/20/2025 11:24 AM [facility] Urobilinogen, Urine 0.2 0.2 to 1.0 mg/dL LAB URINALYSIS - AUTOMATED METHOD 01/20/2025 11:24 AM [facility] Leukocytes, Urine Small(A) Negative LAB URINALYSIS - AUTOMATED METHOD 01/20/2025 11:24 AM EST [facility] Nitrite, Urine Negative Negative LAB URINALYSIS - AUTOMATED METHOD 01/20/2025 11:24 AM EST [facility] RBC, Urine 2 0 to 3 /HPF LAB URINALYSIS - AUTOMATED METHOD 01/20/2025 11:24 AM EST [facility] WBC, Urine >50(A) 0 to 5 /HPF LAB URINALYSIS - AUTOMATED METHOD 01/20/2025 11:24 AM EST [facility] Squamous Epithelial Cells 0 - 2 0 to 5 /HPF LAB URINALYSIS - AUTOMATED METHOD 01/20/2025 11:24 AM EST [facility] Hyaline Casts 3 - 5 0 to 5 /LPF LAB URINALYSIS - AUTOMATED METHOD 01/20/2025 11:24 AM EST [facility] Bacteria, Urine Negative Negative LAB URINALYSIS - AUTOMATED METHOD 01/20/2025 11:24 AM EST [facility] Yeast (Budding and/or Pseudohyphae) Present(A) Absent LAB URINALYSIS - AUTOMATED METHOD 01/20/2025 11:24 AM EST [facility] Urine Urine specimen obtained by clean catch procedure / Unknown Non-blood Collection / Unknown 01/20/2025 11:02 AM EST 01/20/2025 11:06 AM EST us Cleve Deleon MD LAB URINE ORDERABLES Final Re sult [facility] [address] [place] [address] * (ABNORMAL) POCT glucose meter (01/20/2025 8:03 AM EST) POCT Glucose 139(H) 74 - 99 mg/dL 01/20/2025 8:05 AM EST [facility] Comment:Accuracy of a glucos [...] for testing. Comment 01/20/2025 8:05 AM EST [facility] Welder Operator ID KatieJane og 01/20/2025 8:05 AM EST [facility] Device ID [id number] 01/20/2025 8:05 AM EST [facility] Specimen Type POC Capillary 01/20/2025 8:05 AM EST [facility] Blood Capillary blood specimen / Unknown 01/20/2025 8:03 AM EST 01/20/2025 8:05 AM EST us Cleve Deleon MD LAB POINT OF CARE TE ST DOCKED DEVICE UNSOLICITED RESULTS Final Result Performing Organization Address City/[facility]/ZIP Co de Phone Number [facility] [address] [place] [address] * (ABNORMAL) Creatine Kinase (CK), Total (01/20/2025 5:02 AM EST) Creatine Kinase, Plasma 290(H) 37 - 168 U/L 01/20/2025 5:37 AM EST [facility] Blood Venous blood specimen / Unknown Venipuncture / Unknown 01/20/2025 5:02 AM EST 01/20/2025 5:07 AM EST us Cleve Deleon MD LAB BLOOD ORDERABLES Final Re sult [facility] [address] [place] [address] * (ABNORMAL) Basic metabolic panel (01/20/2025 5:02 AM EST) Glucose, Plasma 151(H) 74 - 99 mg/dL 01/20/2025 5:37 AM EST [facility] BUN, Plasma 12 8 - 23 mg/dL 01/20/2025 5:37 AM EST [facility] Creatinine, Plasma 0.79 0.60 - 1.10 mg/dL 01/20/2025 5:37 AM EST [facility] BUN/Creatinine Ratio 15 01/20/2025 5:37 AM EST [facility] Sodium, Plasma 139 136 - 145 mmol/L 01/20/2025 5:37 AM EST [facility] Potassium, Plasma 3.6 3.6 - 4.9 mmol/L 01/20/2025 5:37 AM EST [facility] Chloride, Plasma 102 97 - 107 mmol/L 01/20/2025 5:37 AM EST [facility] CO2, Plasma 28 22 - 29 mmol/L 01/20/2025 5:37 AM EST [facility] Anion Gap 9 6 - 16 mmol/L 01/20/2025 5:37 AM EST [facility] Total Calcium, Plasma 8.2(L) 8.9 - 10.2 mg/dL 01/20/2025 5:37 AM EST [facility] eGFRcr 78.6 mL/min/1.7 3m*2 01/20/2025 5:37 AM EST [facility] Comment:Reported eGFRcr in m L/min/1.73m2 is based the CKD-EPI 2020 equation that does not use a race coefficient. Blood Venous blood specimen / Unknown Venipuncture / Unknown 01/20/2025 5:02 AM EST 01/20/2025 5:07 AM EST us Cleve Deleon MD LAB BLOOD ORDERABLES Final Re sult [facility] [address] [place] [address] * (ABNORMAL) POCT glucose meter (01/19/2025 8:10 PM EST) POCT Glucose 213(H) 74 - 99 mg/dL 01/19/2025 8:12 PM EST [facility] Comment:Accuracy of a glucos e result [...] for testing. Comment 01/19/2025 8:12 PM EST [facility] Welder Operator ID Silva Coates 025 8:12 PM EST [facility] Device ID [id number] 01/19/2025 8:12 PM EST [facility] Specimen Type POC Capillary 01/19/2025 8:12 PM EST [facility] Blood Capillary blood specimen / Unknown 01/19/2025 8:10 PM EST 01/19/2025 8:12 PM EST us Cleve Deleon MD LAB POINT OF CARE TE ST DOCKED DEVICE UNSOLICITED RESULTS Final Result Performing Organization Address City/[facility]/ZIP Co de Phone Number [facility] [address] [place] [address] * (ABNORMAL) POCT glucose meter (01/19/2025 5:32 [...] Comment 01/19/2025 5:33 PM EST [facility] Welder Operator ID Waldemar Duvall Aleyda 01/19/2025 5:33 PM EST [facility] Device ID [id number] 01/19/2025 5:33 PM EST [facility] Specimen Type POC Capillary 01/19/2025 5:33 PM EST [facility] Blood Capillary blood specimen / Unknown 01/19/2025 5:32 PM EST 01/19/2025 5:33 PM EST us Cleve Deleon MD LAB POINT OF CARE TE ST DOCKED DEVICE UNSOLICITED RESULTS Final Result Performing Organization Address City/[facility]/ZIP Co de Phone Number [facility] [address] [place] [address] * (ABNORMAL) POCT glucose meter (01/19/2025 12:21 [...] Comment 01/19/2025 12:22 PM EST [facility] Welder Operator ID Aleyda Haley 01/19/2025 12:22 PM EST [facility] Device ID [id number] 01/19/2025 12:22 PM EST [facility] Specimen Type POC Capillary 01/19/2025 12:22 PM EST [facility] Blood Capillary blood specimen / Unknown 01/19/2025 12:21 PM EST 01/19/2025 12:22 PM EST us Cleve Deleon MD LAB POINT OF CARE TE ST DOCKED DEVICE UNSOLICITED RESULTS Final Result Performing Organization Address City/State/[facility] de Phone Number [facility] [address] [place] [address] * (ABNORMAL) POCT glucose meter (01/19/2025 8:18 AM EST) POCT Glucose 140(H) 74 - 99 mg/dL 01/19/2025 8:20 AM EST [facility] Comment:Accuracy of a glucos [...] 01/19/2025 8:20 AM EST [facility] Welder Operator ID Aleyda Haley 01/19/2025 8:20 AM EST [facility] Device ID [id number] 01/19/2025 8:20 AM EST [facility] Specimen Type POC Capillary 01/19/2025 8:20 AM EST [facility] Blood Capillary blood specimen / Unknown 01/19/2025 8:18 AM EST 01/19/2025 8:20 AM EST us Cleve Deleon MD LAB POINT OF CARE TE ST DOCKED DEVICE UNSOLICITED RESULTS Final Result [facility] [address] [place] [address] * Phosphorus (01/19/2025 6:05 AM EST) Phosphorus, Plasma 3.0 2.5 - 4.5 mg/dL 01/19/2025 6:40 AM EST [facility] Blood Venous blood specimen / Unknown Venipuncture / Unknown 01/19/2025 6:05 AM EST 01/19/2025 6:15 AM EST us Cleve Deleon MD LAB BLOOD ORDERABLES Final Re sult Performing Organization Address City/[facility] Co de Phone Number [facility] [address] [place] [address] * Magnesium (01/19/2025 6:05 AM EST) Pathologist [facility] Magnesium, Plasma 2.1 1.9 - 2.4 mg/dL 01/19/2025 6:40 AM EST [facility] Blood Venous blood specimen / Unknown Venipuncture / Unknown 01/19/2025 6:05 AM EST 01/19/2025 6:15 AM EST us Cleve Deleon MD LAB BLOOD ORDERABLES Final Re sult Performing Organization Address City/[facility] Co de Phone Number [facility] [address] [place] [address] * Vancomycin, Peak, Plasma Please draw ~2 hours after 0230 dose of vancomycin finishes infusing. Consider obtaining level via peripheral stick. If peripheral stick is not feasible, please ensure that line is flushed well prior to drawing level. Than... (01/19/2025 6:05 AM EST) Vancomycin, Peak, Plasma 39.7 20.0 - 40.0 ug/mL 01/19/2025 6:42 AM EST [facility] Blood Venous blood specimen / Unknown Venipuncture / Unknown 01/19/2025 6:05 AM EST 01/19/2025 6:15 AM EST Narrative [facility] - 01/19/2025 6:42 AM EST Therapeutic Peak level: 20-40ug/mL Supra-therapeutic Peak level: >40 ug/mL us Cleve Deleon MD LAB BLOOD ORDERABLES Final Re sult Performing Organization Address [facility] [place] [address] * Vancomycin, Trough, Plasma Please draw ~30 minutes prior to dose due at 0230 on 01/19. Please do NOT hold dose awaiting level to return. Consider obtaining level via peripheral stick. If peripheral stick is not feasible, please ensure that line i... (01/19/2025 2:05 AM EST) Pathologist [facility] Vancomycin, Trough, Plasma 16.4 10.0 - 20.0 ug/mL 01/19/2025 2:40 AM EST [facility] Blood Venous blood specimen / Unknown Venipuncture / Unknown 01/19/2025 2:05 AM EST 01/19/2025 2:12 AM EST Narrative [facility] - 01/19/2025 2:40 AM EST Therapeutic Trough level: 10-20ug/mL Supra-therapeutic Trough level: >20 ug/mL us Cleve Deleon MD LAB BLOOD ORDERABLES Final Re sult Performing Organization Address [facility] de Phone Number [facility] [address] [place] [address] * (ABNORMAL) POCT glucose meter (01/18/2025 10:05 PM EST) POCT Glucose 181(H) 74 - 99 mg/dL 01/18/2025 10:43 PM EST [facility] Comment:Accuracy of a glucos e result [...] Comment 01/18/2025 10:43 PM EST [facility] Welder Operator ID Felisa Sarmiento 025 10:43 PM EST [facility] Device ID [id number] 01/18/2025 10:43 PM EST [facility] Specimen Type POC Capillary 01/18/2025 10:43 PM EST [facility] Blood Capillary blood specimen / Unknown 01/18/2025 10:05 PM EST 01/18/2025 10:43 PM EST us Cleve Deleon MD LAB POINT OF CARE TE ST DOCKED DEVICE UNSOLICITED RESULTS Final Result Performing Organization Address City/[facility] Co de Phone Number [facility] [address] [place] [address] * (ABNORMAL) POCT glucose meter (01/18/2025 5:34 [...] Comment 01/18/2025 9:25 PM EST [facility] Welder Operator ID Renae Mcleod 01/19/20 9:25 PM EST [facility] Device ID [id number] 01/18/2025 9:25 PM EST [facility] Specimen Type POC Capillary 01/18/2025 9:25 PM EST [facility] Blood Capillary blood specimen / Unknown 01/18/2025 5:34 PM EST 01/18/2025 9:25 PM EST us Cleve Deleon MD LAB POINT OF CARE TE ST DOCKED DEVICE UNSOLICITED RESULTS Final Result Performing Organization Address City/[facility]/ZIP Co de Phone Number [facility] [address] [place] [address] * Blood Culture (Aerobic/Anaerobet Set) (01/18/2025 1:23 PM EST) Culture No growth at day 5 SADA 01/23/2025 2:02 PM EST [facility] Blood Venous blood specimen / Unknown Venipuncture / Unknown 01/18/2025 1:23 PM EST 01/18/2025 1:34 PM EST us Cleve Deleon MD LAB MICROBIOLOGY - GENERAL OR DERABLES Final Result [facility] [address] [place] [address] * PERIPHERAL IV (SMARTFORM LINK) (01/18/2025 12:54 [...] 99 mg/dL 01/18/2025 12:01 PM EST [facility] Comment:Accuracy of a glucos e result [...] for testing. Comment 01/18/2025 12:01 PM EST [facility] Welder Operator ID Renae Mcleod 01/19/20 12:01 PM EST [facility] Device ID [id number] 01/18/2025 12:01 PM EST [facility] Specimen Type POC Capillary 01/18/2025 12:01 PM EST [facility] Blood Capillary blood specimen / Unknown 01/18/2025 12:00 PM EST 01/18/2025 12:01 PM EST us Cleve Deleon MD LAB POINT OF CARE TE ST DOCKED DEVICE UNSOLICITED RESULTS Final Result Performing Organization Address City/[facility] Co de Phone Number [facility] [address] [place] [address] * (ABNORMAL) POCT glucose meter (01/18/2025 8:25 AM EST) [facility] POCT Glucose 146(H) 74 - 99 mg/dL 01/18/2025 8:27 AM EST [facility] Comment:Accuracy of a [...] Comment 01/18/2025 8:27 AM EST [facility] Welder Operator ID Renae Mcleod 01/19/20 8:27 AM EST [facility] Device ID [id number] 01/18/2025 8:27 AM EST [facility] Specimen Type POC Capillary 01/18/2025 8:27 AM EST [facility] Blood Capillary blood specimen / Unknown 01/18/2025 8:25 AM EST 01/18/2025 8:27 AM EST us Cleve Deleon MD LAB POINT OF CARE TE ST DOCKED DEVICE UNSOLICITED RESULTS Final Result Performing Organization Address City/[facility]/ZIP Co de Phone Number [facility] [address] [place] [address] * (ABNORMAL) CBC and Differential (01/18/2025 4:56 AM EST) Pathologist [facility] WBC Count 10.71(H) 3.70 - 10.30 10*3/uL LAB HEMATOLOGY METHOD 01/18/2025 5:22 AM EST [facility] RBC Count 2.79(L) 3.90 - 5.20 10*6/uL LAB HEMATOLOGY METHOD 01/18/2025 5:22 AM EST [facility] HGB 9.0(L) 11.2 - 15.7 g/dL LAB HEMATOLOGY METHOD 01/18/2025 5:22 AM [facility] HCT 27.4(L) 34.0 - 45.0 % LAB HEMATOLOGY METHOD 01/18/2025 5:22 AM [facility] Platelet Count 400(H) 155 - 369 10*3/uL LAB HEMATOLOGY METHOD 01/18/2025 5:22 AM [facility] MCV 98 79 - 98 fL LAB HEMATOLOGY METHOD 01/18/2025 5:22 AM [facility] MCH 32.3(H) 26.0 - 32.0 pg LAB HEMATOLOGY METHOD 01/18/2025 5:22 AM [facility] MCHC 32.8 30.7 - 35.5 g/dL LAB HEMATOLOGY METHOD 01/18/2025 5:22 AM [facility] RDW 14.3 11.5 - 14.5 % LAB HEMATOLOGY METHOD 01/18/2025 5:22 AM [facility] MPV 9.0 8.8 - 12.5 fL LAB HEMATOLOGY METHOD 01/18/2025 5:22 AM [facility] nRBC 0.0 <=0.0 per 100 WBCs LAB HEMATOLOGY METHOD 01/18/2025 5:22 AM [facility] Differential Type Automated LAB HEMATOLOGY METHOD 01/18/2025 5:22 AM [facility] Neutrophils % 79 % LAB HEMATOLOGY METHOD 01/18/2025 5:22 AM [facility] Lymphocytes % 9 % LAB HEMATOLOGY METHOD 01/18/2025 5:22 AM [facility] Monocytes % 9 % LAB HEMATOLOGY METHOD 01/18/2025 5:22 AM [facility] Eosinophils % 2 % LAB HEMATOLOGY METHOD 01/18/2025 5:22 AM EST [facility] Basophils % 0 % LAB HEMATOLOGY METHOD 01/18/2025 5:22 AM EST [facility] Immature Granulocytes % 1 % LAB HEMATOLOGY METHOD 01/18/2025 5:22 AM EST [facility] Neutrophils Absolute 8.43(H) 1.60 - 6.10 10*3/uL LAB HEMATOLOGY METHOD 01/18/2025 5:22 AM EST [facility] Lymphocytes Absolute 0.99(L) 1.20 - 3.90 10*3/uL LAB HEMATOLOGY METHOD 01/18/2025 5:22 AM EST [facility] Monocytes Absolute 0.97(H) 0.30 - 0.90 10*3/uL LAB HEMATOLOGY METHOD 01/18/2025 5:22 AM EST [facility] Eosinophils Absolute 0.21 0.00 - 0.50 10*3/uL LAB HEMATOLOGY METHOD 01/18/2025 5:22 AM EST [facility] Basophils Absolute 0.03 0.00 - 0.10 10*3/uL LAB HEMATOLOGY METHOD 01/18/2025 5:22 AM EST [facility] Immature Granulocytes Absolute 0.08(H) 0.00 - 0.06 10*3/uL LAB HEMATOLOGY METHOD 01/18/2025 5:22 AM EST [facility] Blood Blood sample taken from central line / Unknown Venipuncture / Unknown 01/18/2025 4:56 AM EST 01/18/2025 5:12 AM EST Narrative [facility] - 01/18/2025 5:22 AM EST Therapeutic decision making should be based on absolute values, rather than percentages. us Cleve Deleon MD LAB BLOOD ORDERABLES Final Re sult [facility] [address] [place] [address] * (ABNORMAL) Magnesium, Plasma (01/18/2025 4:56 AM EST) Magnesium, Plasma 1.7(L) 1.9 - 2.4 mg/dL 01/18/2025 5:42 AM EST [facility] Blood Blood sample taken from central line / Unknown Venipuncture / Unknown 01/18/2025 4:56 AM EST 01/18/2025 5:12 AM EST us Cleve Deleon MD LAB BLOOD ORDERABLES Final Re sult [facility] [address] [place] [address] * (ABNORMAL) Basic Metabolic Panel, Plasma (01/18/2025 4:56 AM EST) Glucose, Plasma 151(H) 74 - 99 mg/dL 01/18/2025 5:42 AM EST [facility] BUN, Plasma 16 8 - 23 mg/dL 01/18/2025 5:42 AM EST [facility] Creatinine, Plasma 0.90 0.60 - 1.10 mg/dL 01/18/2025 5:42 AM EST [facility] BUN/Creatinine Ratio 18 01/18/2025 5:42 AM EST [facility] Sodium, Plasma 142 136 - 145 mmol/L 01/18/2025 5:42 AM EST [facility] Potassium, Plasma 4.0 3.6 - 4.9 mmol/L 01/18/2025 5:42 AM EST [facility] Chloride, Plasma 104 97 - 107 mmol/L 01/18/2025 5:42 AM EST [facility] CO2, Plasma 25 22 - 29 mmol/L 01/18/2025 5:42 AM EST [facility] Anion Gap 13 6 - 16 mmol/L 01/18/2025 5:42 AM EST [facility] Total Calcium, Plasma 8.4(L) 8.9 - 10.2 mg/dL 01/18/2025 5:42 AM EST [facility] eGFRcr 67.2 mL/min/1.7 3m*2 01/18/2025 5:42 AM EST [facility] Comment:Reported eGFRcr in m L/min/1.73m2 is based the CKD-EPI 2020 equation that does not use a race coefficient. Blood Blood sample taken from central line / Unknown Venipuncture / Unknown 01/18/2025 4:56 AM EST 01/18/2025 5:12 AM EST us Cleve Deleon MD LAB BLOOD ORDERABLES Final Re sult Performing Organization Address [facility] Co de Phone Number [facility] [address] [place] [address] * (ABNORMAL) Phosphorus, Plasma (01/18/2025 4:56 AM EST) Phosphorus, Plasma 1.9(L) 2.5 - 4.5 mg/dL 01/18/2025 5:42 AM EST [facility] Blood Blood sample taken from central line / Unknown Venipuncture / Unknown 01/18/2025 4:56 AM EST 01/18/2025 5:12 AM EST us Cleve Deleon MD LAB BLOOD ORDERABLES Final Re sult Performing Organization Address [facility] de Phone Number [facility] [address] [place] [address] * Hepatitis C Antibody - ED W/Reflex to HCV Quant PCR (01/18/2025 4:56 AM EST) Hepatitis C Antibody Negative Negative 01/18/2025 5:53 AM EST [facility] Blood Blood sample taken from central line / Unknown Venipuncture / Unknown 01/18/2025 4:56 AM EST 01/18/2025 5:11 AM EST us Cleve Deleon MD LAB BLOOD ORDERABLES Final Re sult Performing Organization Address [facility] Co de Phone Number [facility] [address] [place] [address] * (ABNORMAL) Hepatic Function Panel (01/18/2025 4:56 AM EST) Direct Bilirubin, Plasma <0.2 <=0.3 mg/dL 01/18/2025 5:42 AM EST [facility] Alkaline Phosphatase, Plasma 263(H) 46 - 142 U/L 01/18/2025 5:42 AM EST [facility] Total Bilirubin, Plasma 0.3 0.2 - 1.1 mg/dL 01/18/2025 5:42 AM EST [facility] Albumin, Plasma 3.0(L) 3.5 - 5.2 g/dL 01/18/2025 5:42 AM EST [facility] Total Protein 6.1(L) 6.3 - 7.9 g/dL 01/18/2025 5:42 AM EST [facility] ALT, Plasma 53(H) 10 - 35 U/L 01/18/2025 5:42 AM EST [facility] AST, Plasma 70(H) 10 - 35 U/L 01/18/2025 5:42 AM EST [facility] Blood Blood sample taken from central line / Unknown Venipuncture / Unknown 01/18/2025 4:56 AM EST 01/18/2025 5:12 AM EST us Cleve Deleon MD LAB BLOOD ORDERABLES Final Re sult [facility] [address] [place] [address] * (ABNORMAL) POCT glucose meter (01/17/2025 9:24 [...] Comment 01/17/2025 9:27 PM EST [facility] Welder Operator ID Felisa Sarmiento 025 9:27 PM EST [facility] Device ID [id number] 01/17/2025 9:27 PM EST [facility] Specimen Type POC Capillary 01/17/2025 9:27 PM EST [facility] Blood Capillary blood specimen / Unknown 01/17/2025 9:24 PM EST 01/17/2025 9:27 PM EST us Cleve Deleon MD LAB POINT OF CARE TE ST DOCKED DEVICE UNSOLICITED RESULTS Final Result Performing Organization Address City/[facility]/ZIP Co de Phone Number [facility] [address] [place] [address] * Hepatitis B Surface Antigen (01/17/2025 7:50 PM EST) Pathologist [facility] Hepatitis B Surf Antigen Negative Negative 01/17/2025 10:06 PM EST [facility] Blood Arterial blood specimen / Unknown (Central Line) Existing Catheter / Unknown 01/17/2025 7:50 PM EST 01/17/2025 7:54 PM EST Cleve Deleon MD LAB BLOOD ORDERABLES Final Re sult Performing Organization Address [facility] Co mn Phone Number [facility] [address] [place] [address] * Hepatitis B Surface Antibody, Quantitative (01/17/2025 7:50 PM EST) Pathologist [facility] Hepatitis B Surface Antibody, Quantitative <8.00 NonReactiv e: <8, Grayzone: 8 - <12, Reactive: >= 12 mIU/mL 01/17/2025 10:06 PM EST [facility] Comment: Nonreactive. Individual is considered not immune to HBV infection. Blood Arterial blood specimen / Unknown (Central Line) Existing Catheter / Unknown 01/17/2025 7:50 PM EST 01/17/2025 7:54 PM EST Cleve Deleon MD LAB BLOOD ORDERABLES Final Re sult Performing Organization Address [facility]/ZIP Co de Phone Number [facility] [address] [place] [address] * Hepatitis B Core Total Antibody IgG,IgM (01/17/2025 7:50 PM EST) Pathologist [facility] Hepatitis B Core Total Antibody IgG,IgM Negative Negative 01/17/2025 10:06 PM EST [facility] Blood Arterial blood specimen / Unknown (Central Line) Existing Catheter / Unknown 01/17/2025 7:50 PM EST 01/17/2025 7:54 PM EST us Cleve Deleon MD LAB BLOOD ORDERABLES Final Re sult Performing Organization Address City/[facility]/ZIP Co de Phone Number [facility] [address] [place] [address] * Hepatitis B Core Antibody IgM (01/17/2025 7:50 PM EST) Pathologist [facility] Hepatitis B Core Antibody IgM Negative Negative 01/17/2025 10:06 PM EST [facility] Blood Arterial blood specimen / Unknown (Central Line) Existing Catheter / Unknown 01/17/2025 7:50 PM EST 01/17/2025 7:54 PM EST us Cleve Deleon MD LAB BLOOD ORDERABLES Final Re sult Performing Organization Address [facility] de Phone Number [facility] [address] [place] [address] * (ABNORMAL) POCT glucose meter (01/17/2025 5:55 PM EST) [facility] POCT Glucose 186(H) 74 - 99 [...] 01/17/2025 5:57 PM EST [facility] Welder Operator ID Medeiros JadielAleyda singh 01/17/2025 5:57 PM EST [facility] Device ID [id number] 01/17/2025 5:57 PM EST [facility] Specimen Type POC Capillary 01/17/2025 5:57 PM EST [facility] Blood Capillary blood specimen / Unknown 01/17/2025 5:55 PM EST 01/17/2025 5:57 PM EST us Cleve Deleon MD LAB POINT OF CARE TE ST DOCKED DEVICE UNSOLICITED RESULTS Final Result Performing Organization Address [facility] de Phone Number [facility] [address] [place] [address] * (ABNORMAL) POCT glucose meter (01/17/2025 12:33 PM EST) [facility] POCT Glucose 172(H) 74 - 99 mg/dL [...] 01/17/2025 12:34 PM EST [facility] Welder Operator ID Waldemar DuvallAleyda 01/17/2025 12:34 PM EST [facility] Device ID [id number] 01/17/2025 12:34 PM EST [facility] Specimen Type POC Capillary 01/17/2025 12:34 PM [facility] Blood Capillary blood specimen / Unknown 01/17/2025 12:33 PM EST 01/17/2025 12:34 PM EST Cleve Deleon MD LAB POINT OF CARE TE ST DOCKED DEVICE UNSOLICITED RESULTS Final Result Performing Organization Address City/[facility] Co de Phone Number [facility] [address] [place] [address] * ECHO, ADULT TRANSTHORACIC COMPLETE (01/17/2025 11:55 AM EST) [facility] BSA 2.07 m2 PINEDA ISCV LVIDd 45 mm PINEDA ISCV LVIDs 23 mm PINEDA ISCV IVSd 13 mm PINEDA ISCV LVPWd 13 mm PINEDA ISCV LV MASS(C)D 222 g PINEDA ISCV [facility] ECHO LV MASS INDEX 107 g/m2 [...] mm PINEDA ISCV RAP systole 15 mmHg PNIEDA ISCV Anatomical Region Laterality Modality Echocardiography Narrative [...] is no recent study available for direct dkah-si-[id number] comparison. Left Ventricle The left ventricle is [...] is no recent study available for direct loum-cm-utog comparison. us Cleve Deleon MD CV ECHO PROCEDURES Final Resu lt * (ABNORMAL) POCT glucose meter (01/17/2025 5:23 AM EST) POCT Glucose 166(H) 74 - 99 mg/dL 01/17/2025 5:25 AM EST [facility] Comment:Accuracy of a glucos e result [...] Comment 01/17/2025 5:25 AM EST [facility] Welder Operator ID Cydney Valiente 5:25 AM EST [facility] Device ID [id number] 01/17/2025 5:25 AM EST [facility] Specimen Type POC Capillary 01/17/2025 5:25 AM EST [facility] Blood Capillary blood specimen / Unknown 01/17/2025 5:23 AM EST 01/17/2025 5:25 AM EST us Cleve Deleon MD LAB POINT OF CARE TE ST DOCKED DEVICE UNSOLICITED RESULTS Final Result [facility] [address] [place] [address] * (ABNORMAL) CBC and Differential (01/17/2025 2:31 AM EST) WBC Count 8.74 3.70 - 10.30 10*3/uL LAB HEMATOLOGY METHOD 01/17/2025 3:05 AM EST [facility] RBC Count 2.82(L) 3.90 - 5.20 10*6/uL LAB HEMATOLOGY METHOD 01/17/2025 3:05 AM EST [facility] HGB 8.9(L) 11.2 - 15.7 g/dL LAB HEMATOLOGY METHOD 01/17/2025 3:05 AM EST [facility] HCT 27.9(L) 34.0 - 45.0 % LAB HEMATOLOGY METHOD 01/17/2025 3:05 AM EST [facility] Platelet Count 351 155 - 369 10*3/uL LAB HEMATOLOGY METHOD 01/17/2025 3:05 AM EST [facility] MCV 99(H) 79 - 98 fL LAB HEMATOLOGY METHOD 01/17/2025 3:05 AM EST [facility] MCH 31.6 26.0 - 32.0 pg LAB HEMATOLOGY METHOD 01/17/2025 3:05 AM EST [facility] MCHC 31.9 30.7 - 35.5 g/dL LAB HEMATOLOGY METHOD 01/17/2025 3:05 AM [facility] RDW 14.2 11.5 - 14.5 % LAB HEMATOLOGY METHOD 01/17/2025 3:05 AM [facility] MPV 9.1 8.8 - 12.5 fL LAB HEMATOLOGY METHOD 01/17/2025 3:05 AM [facility] nRBC 0.0 <=0.0 per 100 WBCs LAB HEMATOLOGY METHOD 01/17/2025 3:05 AM [facility] Differential Type Automated LAB HEMATOLOGY METHOD 01/17/2025 3:05 AM [facility] Neutrophils % 88 % LAB HEMATOLOGY METHOD 01/17/2025 3:05 AM [facility] Lymphocytes % 8 % LAB HEMATOLOGY METHOD 01/17/2025 3:05 AM [facility] Monocytes % 2 % LAB HEMATOLOGY METHOD 01/17/2025 3:05 AM [facility] Eosinophils % 0 % LAB HEMATOLOGY METHOD 01/17/2025 3:05 AM [facility] Basophils % 0 % LAB HEMATOLOGY METHOD 01/17/2025 3:05 AM [facility] Immature Granulocytes % 2 % LAB HEMATOLOGY METHOD 01/17/2025 3:05 AM [facility] Neutrophils Absolute 7.74(H) 1.60 - 6.10 10*3/uL LAB HEMATOLOGY METHOD 01/17/2025 3:05 AM [facility] Lymphocytes Absolute 0.68(L) 1.20 - 3.90 10*3/uL LAB HEMATOLOGY METHOD 01/17/2025 3:05 AM [facility] Monocytes Absolute 0.17(L) 0.30 - 0.90 10*3/uL LAB HEMATOLOGY METHOD 01/17/2025 3:05 AM [facility] Eosinophils Absolute 0.00 0.00 - 0.50 10*3/uL LAB HEMATOLOGY METHOD 01/17/2025 3:05 AM [facility] Basophils Absolute 0.02 0.00 - 0.10 10*3/uL LAB HEMATOLOGY METHOD 01/17/2025 3:05 AM [facility] Immature Granulocytes Absolute 0.13(H) 0.00 - 0.06 10*3/uL LAB HEMATOLOGY METHOD 01/17/2025 3:05 AM [facility] Blood Venous blood specimen / Unknown Venipuncture / Unknown 01/17/2025 2:31 AM EST 01/17/2025 2:40 AM EST Narrative [facility] - 01/17/2025 3:05 AM EST Therapeutic decision making should be based on absolute values, rather than percentages. us Cleve Deleon MD LAB BLOOD ORDERABLES Final Re sult Performing Organization Address [facility]/ZIP Co de Phone Number [facility] [address] [place] [address] * Magnesium, Plasma (01/17/2025 2:31 AM EST) Magnesium, Plasma 2.0 1.9 - 2.4 mg/dL 01/17/2025 3:08 AM EST [facility] Blood Venous blood specimen / Unknown Venipuncture / Unknown 01/17/2025 2:31 AM EST 01/17/2025 2:39 AM EST us Cleve Deleon MD LAB BLOOD ORDERABLES Final Re sult Performing Organization Address City/[facility] Co de Phone Number [facility] [address] [place] [address] * (ABNORMAL) Basic Metabolic Panel, Plasma (01/17/2025 2:31 AM EST) Glucose, Plasma 193(H) 74 - 99 mg/dL 01/17/2025 3:08 AM EST [facility] BUN, Plasma 17 8 - 23 mg/dL 01/17/2025 3:08 AM EST [facility] Creatinine, Plasma 0.87 0.60 - 1.10 mg/dL 01/17/2025 3:08 AM EST [facility] BUN/Creatinine Ratio 20 01/17/2025 3:08 AM EST [facility] Sodium, Plasma 140 136 - 145 mmol/L 01/17/2025 3:08 AM EST [facility] Potassium, Plasma 4.6 3.6 - 4.9 mmol/L 01/17/2025 3:08 AM EST [facility] Chloride, Plasma 104 97 - 107 mmol/L 01/17/2025 3:08 AM EST [facility] CO2, Plasma 24 22 - 29 mmol/L 01/17/2025 3:08 AM EST [facility] Anion Gap 12 6 - 16 mmol/L 01/17/2025 3:08 AM EST [facility] Total Calcium, Plasma 8.7(L) 8.9 - 10.2 mg/dL 01/17/2025 3:08 AM EST [facility] eGFRcr 70.0 mL/min/1.7 3m*2 01/17/2025 3:08 AM EST [facility] Comment:Reported eGFRcr in m L/min/1.73m2 is based the CKD-EPI 2020 equation that does not use a race coefficient. Blood Venous blood specimen / Unknown Venipuncture / Unknown 01/17/2025 2:31 AM EST 01/17/2025 2:39 AM EST us Cleve Deleon MD LAB BLOOD ORDERABLES Final Re sult [facility] [address] [place] [address] * Phosphorus, Plasma (01/17/2025 2:31 AM EST) Phosphorus, Plasma 4.3 2.5 - 4.5 mg/dL 01/17/2025 3:08 AM EST [facility] Blood Venous blood specimen / Unknown Venipuncture / Unknown 01/17/2025 2:31 AM EST 01/17/2025 2:39 AM EST us Cleve Deleon MD LAB BLOOD ORDERABLES Final Re sult [facility] [address] [place] [address] * (ABNORMAL) POCT glucose meter (01/17/2025 12:39 AM EST) POCT Glucose 198(H) 74 - 99 mg/dL 01/17/2025 12:41 AM EST [facility] Comment:Accuracy of a glucos [...] 01/17/2025 12:41 AM EST [facility] Welder Operator ID Cydney Valiente 12:41 AM EST [facility] Device ID [id number] 01/17/2025 12:41 AM EST [facility] Specimen Type POC Capillary 01/17/2025 12:41 AM [facility] Blood Capillary blood specimen / Unknown 01/17/2025 12:39 AM EST 01/17/2025 12:41 AM EST us Cleve Deleon MD LAB POINT OF CARE TE ST DOCKED DEVICE UNSOLICITED RESULTS Final Result Performing Organization Address City/State/[facility] Co mn Phone Number [facility] [address] [place] [address] * CT Lumbar Spine w IV Contrast [...] on 01/16/2025 8:04 PM Naina Dubois APRN IMG US PROCEDURES Final Result * (ABNORMAL) POCT glucose meter (01/16/2025 6:35 PM EST) POCT Glucose 173(H) 74 - 99 mg/dL 01/16/2025 6:36 PM EST [facility] Comment:Accuracy of a glucos e result [...] for testing. Comment 01/16/2025 6:36 PM EST [facility] Welder Operator ID Amandeep Ward 01/16/2025 6:36 PM EST [facility] Device ID [id number] 01/16/2025 6:36 PM EST [facility] Specimen Type POC Capillary 01/16/2025 6:36 PM [facility] Blood Capillary blood specimen / Unknown 01/16/2025 6:35 PM EST 01/16/2025 6:36 PM EST us Cleve Deleon MD LAB POINT OF CARE TE ST DOCKED DEVICE UNSOLICITED RESULTS Final Result Performing Organization Address [facility] Co de Phone Number [facility] [address] [place] [address] * (ABNORMAL) POCT glucose meter (01/16/2025 5:22 PM EST) POCT Glucose 178(H) 74 - 99 mg/dL 01/16/2025 5:23 PM EST [facility] Comment:Accuracy of a [...] for testing. Comment 01/16/2025 5:23 PM EST [facility] Welder Operator ID Felisa Hernandez 5:23 PM EST [facility] Device ID [id number] 01/16/2025 5:23 PM EST [facility] Specimen Type POC Capillary 01/16/2025 5:23 PM EST [facility] Blood Capillary blood specimen / Unknown 01/16/2025 5:22 PM EST 01/16/2025 5:23 PM EST us Cleve Deleon MD LAB POINT OF CARE TE ST DOCKED DEVICE UNSOLICITED RESULTS Final Result Performing Organization Address City/[facility] Co de Phone Number [facility] [address] [place] [address] * [place] Less than 1 Hour Intraoperative [...] Culture Heavy Growth 01/19/2025 5:17 PM EST [facility] Culture 4+ Biotype 1 Methicillin-Resis tant Staphylococcus aureus(AA) 01/19/2025 5:17 PM EST [facility] Comment: For susceptibility results refer to: - [facility]-[id number] Edited result: Previously reported as Staphylococcus aureus on 01/17/2025 at 1327 EST. Staphylococcus aureus has been updated to reportable. Culture 2+ Biotype 2 Methicillin-Resis tant Staphylococcus aureus(AA) 01/19/2025 5:17 PM EST [facility] Comment: For susceptibility results refer to: - [id number] Edited result: Previously reported as Staphylococcus aureus on 01/17/2025 at 1327 EST. Staphylococcus aureus has been updated to reportable. Foreign Body Lower back structure / Unknown 01/16/2025 4:14 PM EST 01/16/2025 5:10 PM EST Comment:Pre-op diagnosis: MRSA bacteremia [R78.81, B95.62] Fransisco Gaston MD LAB MICROBIOLOGY - G ENERAL ORDERABLES Final Result Performing Organization Address City/[facility]/ZIP Co de Phone Number [facility] [address] [place] [address] * Anaerobic Culture (01/16/2025 4:14 PM EST) Culture No anaerobes isolated 01/20/2025 2:57 PM EST [facility] Foreign Body Lower back structure / Unknown 01/16/2025 4:14 PM EST 01/16/2025 5:10 PM EST Comment:Pre-op diagnosis: MRSA bacteremia [R78.81, B95.62] Fransisco Gaston MD LAB MICROBIOLOGY - G ENERAL ORDERABLES Final Result Performing Organization Address City/[facility]/ZIP Co de Phone Number [facility] [address] [place] [address] * Fungal Culture, Routine (01/16/2025 4:05 PM EST) Culture No Fungal Growth at 1 Week 01/24/2025 6:48 AM EST [facility] Abscess Topography unknown / Unknown 01/16/2025 4:05 PM EST 01/16/2025 5:10 PM EST Cleve Deleon MD LAB MICROBIOLOGY - GENERAL OR DERABLES Final Result Performing Organization Address City/[facility]/ZIP Co de Phone Number [facility] [address] [place] [address] * (ABNORMAL) Abscess Culture and Gram Stain (01/16/2025 4:05 PM EST) Culture Light Growth 01/19/2025 5:17 PM EST [facility] Culture 1+ Biotype 1 Methicillin-Resista nt Staphylococcus aureus(AA) 01/19/2025 5:17 PM EST [facility] Comment: The organism value for this result has been updated. These results have been appended to the previously preliminary verified report. Edited result: Previously reported as Staphylococcus aureus on 01/18/2025 at 1547 EST. Staphylococcus aureus has been updated to reportable. Culture 1+ Biotype 2 Methicillin-Resista nt Staphylococcus aureus(AA) 01/19/2025 5:17 PM EST [facility] Comment: The organism value for this result has been updated. These results have been appended to the previously preliminary verified report. Edited result: Previously reported as Staphylococcus aureus on 01/18/2025 at 1547 EST. Staphylococcus aureus has been updated to reportable. Gram Stain Result Rare Gram positive cocci in pairs and chains(A) 01/19/2025 5:17 PM EST [facility] Gram Stain Result Numerous Polymorphonuclear leukocytes(A) 01/19/2025 5:17 PM EST [facility] Abscess Lower back structure [...] ENERAL ORDERABLES Final Result Performing Organization Address City/[facility]/ZIP Co de Phone Number [facility] [address] [place] [id number] * Anaerobic Culture (01/16/2025 4:05 PM EST) Pathologist [facility] Culture No anaerobes isolated 01/20/2025 2:57 PM EST [facility] Abscess Lower back structure / Unknown 01/16/2025 4:05 PM EST 01/16/2025 5:10 PM EST Comment:Pre-op diagnosis: MRSA bacteremia [R78.81, B95.62] us Fransisco Gaston MD LAB MICROBIOLOGY - G ENERAL ORDERABLES Final Result Performing Organization Address [facility] [place] [address] * (ABNORMAL) POCT glucose meter (01/16/2025 3:19 PM EST) Pathologist [facility] POCT Glucose 123(H) 74 - [...] 01/16/2025 3:20 PM EST [facility] Welder Operator ID Kingsley Alarcon 01/16/2025 3:20 PM EST [facility] Device ID [id number] 01/16/2025 3:20 PM EST [facility] Specimen Type POC Capillary 01/16/2025 3:20 PM EST [facility] Blood Capillary blood specimen / Unknown 01/16/2025 3:19 PM EST 01/16/2025 3:20 PM EST us Cleve Deleon MD LAB POINT OF CARE TE ST DOCKED DEVICE UNSOLICITED RESULTS Final Result Performing Organization Address City/[facility] Co de Phone Number [facility] [address] [place] [address] * (ABNORMAL) POCT glucose meter (01/16/2025 11:52 AM EST) [facility] POCT Glucose 119(H) 74 - 99 mg/dL [...] for testing. Comment 01/16/2025 11:53 AM EST [facility] Welder Operator ID Amandeep Ward 01/16/2025 11:53 AM EST [facility] Device ID [id number] 01/16/2025 11:53 AM EST [facility] Specimen Type POC Capillary 01/16/2025 11:53 AM EST [facility] Blood Capillary blood specimen / Unknown 01/16/2025 11:52 AM EST 01/16/2025 11:53 AM EST Cleve Deleon MD LAB POINT OF CARE TE ST DOCKED DEVICE UNSOLICITED RESULTS Final Result Performing Organization Address [facility] Co de Phone Number [facility] [address] [place] [address] * (ABNORMAL) POCT glucose meter (01/16/2025 6:34 AM EST) [facility] POCT Glucose 142(H) 74 - 99 [...] for testing. Comment 01/16/2025 6:35 AM EST [facility] Welder Operator ID Alice Garber 01/16/2025 6:35 AM EST [facility] Device ID [id number] 01/16/2025 6:35 AM EST [facility] Specimen Type POC Capillary 01/16/2025 6:35 AM EST [facility] Blood Capillary blood specimen / Unknown 01/16/2025 6:34 AM EST 01/16/2025 6:35 AM EST us Demar Jiménez MD LAB POINT OF CARE TE ST DOCKED DEVICE UNSOLICITED RESULTS Final Result [facility] [address] [place] [address] * (ABNORMAL) Urinalysis with reflex microscopic (Culture NOT Included) (01/16/2025 4:51 AM EST) Color, Urine Yellow LAB URINALYSIS - AUTOMATED METHOD 01/16/2025 5:13 AM [facility] Clarity, Urine Clear LAB URINALYSIS - AUTOMATED METHOD 01/16/2025 5:13 AM [facility] Spec [place], Urine 1.012 1.005 - 1.030 LAB URINALYSIS - AUTOMATED METHOD 01/16/2025 5:13 AM [facility] pH, Urine 6.0 5.0 - 8.0 LAB URINALYSIS - AUTOMATED METHOD 01/16/2025 5:13 AM [facility] Protein, Urine Negative Negative mg/dL LAB URINALYSIS - AUTOMATED METHOD 01/16/2025 5:13 AM [facility] Glucose, Urine >=1000(A) Negative mg/dL LAB URINALYSIS - AUTOMATED METHOD 01/16/2025 5:13 AM [facility] Ketones, Urine Negative Negative mg/dL LAB URINALYSIS - AUTOMATED METHOD 01/16/2025 5:13 AM [facility] Blood, Urine Negative Negative LAB URINALYSIS - AUTOMATED METHOD 01/16/2025 5:13 AM [facility] Bilirubin, Urine Negative Negative LAB URINALYSIS - AUTOMATED METHOD 01/16/2025 5:13 AM [facility] Urobilinogen, Urine 0.2 0.2 to 1.0 mg/dL LAB URINALYSIS - AUTOMATED METHOD 01/16/2025 5:13 AM [facility] Leukocytes, Urine Negative Negative LAB URINALYSIS - AUTOMATED METHOD 01/16/2025 5:13 AM EST [facility] Nitrite, Urine Negative Negative LAB URINALYSIS - AUTOMATED METHOD 01/16/2025 5:13 AM EST [facility] Urine Urine specimen obtained by clean catch procedure / Unknown Non-blood Collection / Unknown 01/16/2025 4:51 AM EST 01/16/2025 5:02 AM EST us Fransisco Gaston MD LAB URINE ORDERABLES Final Result Performing Organization Address City/[facility]/ZIP Co de Phone Number [facility] [address] [place] [address] * (ABNORMAL) POCT glucose meter (01/16/2025 1:34 AM EST) POCT Glucose 144(H) 74 - 99 mg/dL 01/16/2025 1:37 AM EST [facility] Comment:Accuracy of a glucos [...] for testing. Comment 01/16/2025 1:37 AM EST [facility] Welder Operator ID Alice Garber 01/16/2025 1:37 AM EST [facility] Device ID [id number] 01/16/2025 1:37 AM EST [facility] Specimen Type POC Capillary 01/16/2025 1:37 AM EST [facility] Blood Capillary blood specimen / Unknown 01/16/2025 1:34 AM EST 01/16/2025 1:37 AM EST us Demar Jiménez MD LAB POINT OF CARE TE ST DOCKED DEVICE UNSOLICITED RESULTS Final Result Performing Organization Address City/[facility]/ZIP Co de Phone Number [facility] [address] [place] [address] * Blood Culture (Aerobic/Anaerobet Set) (01/16/2025 1:28 AM EST) Culture No growth at day 5 SADA 01/21/2025 4:02 AM EST [facility] Blood Structure of right hand / Unknown Venipuncture / Unknown 01/16/2025 1:28 AM EST 01/16/2025 3:52 AM EST Fransisco Gaston MD LAB MICROBIOLOGY - G ENERAL ORDERABLES Final Result Performing Organization Address City/[facility]/ZIP Co de Phone Number [facility] [address] [place] [address] * (ABNORMAL) Hemoglobin A1c (01/16/2025 12:36 AM EST) Hemoglobin A1c 7.8(H) <5.7 % 01/16/2025 10:21 AM EST [facility] Blood Venous blood specimen / Unknown Venipuncture / Unknown 01/16/2025 12:36 AM EST 01/16/2025 12:41 AM EST Narrative [facility] - 01/16/2025 10:21 AM EST HA1C Interpretive Data: Diagnosis of Diabetes: Diabetic > or = 6.5% Pre-diabetic 5.7 to 6.4% Non-diabetic < or = 5.6% Glycemic Targets for Type I and Type II Diabetics: Non- Adults <7.0% Adults <6.0% Children and Adolescents <7.5% Source: [place] [employer]. Standards of medical care in diabetes,2017. Diabetes Care.2017:40 (suppl 1):S1-S135. us Naina Dubois APRN LAB BLOOD ORDERABLES Fi nal Result [facility] [address] [place] [address] * Phosphorus (01/16/2025 12:36 AM EST) Phosphorus, Plasma 2.7 2.5 - 4.5 mg/dL 01/16/2025 2:12 AM EST [facility] Blood Venous blood specimen / Unknown Venipuncture / Unknown 01/16/2025 12:36 AM EST 01/16/2025 12:41 AM EST Naina Dubois [employer] CON[employer]ULTANT LAB BLOOD ORDERABLES Fi nal Result Performing Organization Address City/[facility]/ZIP Co de Phone Number [facility] [address] [place] [address] * (ABNORMAL) Magnesium (01/16/2025 12:36 AM EST) Magnesium, Plasma 1.7(L) 1.9 - 2.4 mg/dL 01/16/2025 2:12 AM EST [facility] Blood Venous blood specimen / Unknown Venipuncture / Unknown 01/16/2025 12:36 AM EST 01/16/2025 12:41 AM EST Naina Dubois MORTGAGE CONSULTANT LAB BLOOD ORDERABLES Fi nal Result Performing Organization Address City/[facility] Co de Phone Number [facility] [address] [place] [address] * (ABNORMAL) Procalcitonin (01/16/2025 12:36 AM EST) Procalcitonin, Plasma 0.09(H) <0.09 ng/mL 01/16/2025 2:12 AM EST [facility] Blood Venous blood specimen / Unknown Venipuncture / Unknown 01/16/2025 12:36 AM EST 01/16/2025 12:41 AM EST Narrative [facility] - 01/16/2025 2:12 AM [...] predict 28 day mortality risk. Please consult [email or web address] for more information. Test performed at [facility]. Naina Dubois APRN LAB BLOOD ORDERABLES Fi nal Result Performing Organization Address City/[facility]/ZIP Co de Phone Number [facility] [address] [place] [address] * (ABNORMAL) C-reactive protein (01/16/2025 12:36 AM EST) CRP, Plasma 108.5(H) <=8.0 mg/L 01/16/2025 1:14 AM EST [facility] Blood Venous blood specimen / Unknown Venipuncture / Unknown 01/16/2025 12:36 AM EST 01/16/2025 12:41 AM EST Narrative [facility] - 01/16/2025 1:14 AM EST This CRP test is appropriate for assessment of infection, systemic inflammation and/or tissue injury. To assess cardiovascular disease risk order high sensitivity CRP (CRPH). Fransisco Gaston MD LAB BLOOD ORDERABLES Final Result Performing Organization Address City/[facility] Co de Phone Number [facility] [address] [place] [address] * (ABNORMAL) Sedimentation Rate, Automated (01/16/2025 12:36 AM EST) Sedimentation Rate 96(H) <30 mm/hr 2024 12:58 AM EST [facility] Blood Venous blood specimen / Unknown Venipuncture / Unknown 01/16/2025 12:36 AM EST 01/16/2025 12:41 AM EST Fransisco Gasotn MD LAB BLOOD ORDERABLES Final Result [facility] [address] [place] [address] * (ABNORMAL) CBC and Differential (01/16/2025 12:36 AM EST) WBC Count 9.75 3.70 - 10.30 10*3/uL LAB HEMATOLOGY METHOD 01/16/2025 12:50 AM EST [facility] RBC Count 2.94(L) 3.90 - 5.20 10*6/uL LAB HEMATOLOGY METHOD 01/16/2025 12:50 AM EST [facility] HGB 9.4(L) 11.2 - 15.7 g/dL LAB HEMATOLOGY METHOD 01/16/2025 12:50 AM EST [facility] HCT 28.1(L) 34.0 - 45.0 % LAB HEMATOLOGY METHOD 01/16/2025 12:50 AM EST [facility] Platelet Count 338 155 - 369 10*3/uL LAB HEMATOLOGY METHOD 01/16/2025 12:50 AM EST [facility] MCV 96 79 - 98 fL LAB HEMATOLOGY METHOD 01/16/2025 12:50 AM [facility] MCH 32.0 26.0 - 32.0 pg LAB HEMATOLOGY METHOD 01/16/2025 12:50 AM EST [facility] MCHC 33.5 30.7 - 35.5 g/dL LAB HEMATOLOGY METHOD 01/16/2025 12:50 AM [facility] RDW 14.2 11.5 - 14.5 % LAB HEMATOLOGY METHOD 01/16/2025 12:50 AM [facility] MPV 9.2 8.8 - 12.5 fL LAB HEMATOLOGY METHOD 01/16/2025 12:50 AM [facility] nRBC 0.0 <=0.0 per 100 WBCs LAB HEMATOLOGY METHOD 01/16/2025 12:50 AM EST [facility] Differential Type Automated LAB HEMATOLOGY METHOD 01/16/2025 12:50 AM [facility] Neutrophils % 75 % LAB HEMATOLOGY METHOD 01/16/2025 12:50 AM [facility] Lymphocytes % 11 % LAB HEMATOLOGY METHOD 01/16/2025 12:50 AM EST [facility] Monocytes % 10 % LAB HEMATOLOGY METHOD 01/16/2025 12:50 AM EST [facility] Eosinophils % 2 % LAB HEMATOLOGY METHOD 01/16/2025 12:50 AM EST [facility] Basophils % 0 % LAB HEMATOLOGY METHOD 01/16/2025 12:50 AM EST [facility] Immature Granulocytes % 2 % LAB HEMATOLOGY METHOD 01/16/2025 12:50 AM EST [facility] Neutrophils Absolute 7.38(H) 1.60 - 6.10 10*3/uL LAB HEMATOLOGY METHOD 01/16/2025 12:50 AM EST [facility] Lymphocytes Absolute 1.03(L) 1.20 - 3.90 10*3/uL LAB HEMATOLOGY METHOD 01/16/2025 12:50 AM EST [facility] Monocytes Absolute 0.94(H) 0.30 - 0.90 10*3/uL LAB HEMATOLOGY METHOD 01/16/2025 12:50 AM EST [facility] Eosinophils Absolute 0.22 0.00 - 0.50 10*3/uL LAB HEMATOLOGY METHOD 01/16/2025 12:50 AM EST [facility] Basophils Absolute 0.03 0.00 - 0.10 10*3/uL LAB HEMATOLOGY METHOD 01/16/2025 12:50 AM EST [facility] Immature Granulocytes Absolute 0.15(H) 0.00 - 0.06 10*3/uL LAB HEMATOLOGY METHOD 01/16/2025 12:50 AM EST [facility] Blood Venous blood specimen / Unknown Venipuncture / Unknown 01/16/2025 12:36 AM EST 01/16/2025 12:41 AM EST [facility] - 01/16/2025 12:50 AM EST Therapeutic decision making should be based on absolute values, rather than percentages. Fransisco Gaston MD LAB BLOOD ORDERABLES Final Result [facility] [address] [place] [address] * (ABNORMAL) Comprehensive Metabolic Panel, Plasma (01/16/2025 12:36 AM EST) Glucose, Plasma 141(H) 74 - 99 mg/dL 01/16/2025 1:14 AM EST [facility] BUN, Plasma 17 8 - 23 mg/dL 01/16/2025 1:14 AM EST [facility] Creatinine, Plasma 0.97 0.60 - 1.10 mg/dL 01/16/2025 1:14 AM EST [facility] BUN/Creatinine Ratio 18 01/16/2025 1:14 AM [facility] Sodium, Plasma 137 136 - 145 mmol/L 01/16/2025 1:14 AM [facility] Potassium, Plasma 4.1 3.6 - 4.9 mmol/L 01/16/2025 1:14 AM [facility] Chloride, Plasma 103 97 - 107 mmol/L 01/16/2025 1:14 AM [facility] CO2, Plasma 22 22 - 29 mmol/L 01/16/2025 1:14 AM [facility] Anion Gap 12 6 - 16 mmol/L 01/16/2025 1:14 AM [facility] Total Calcium, Plasma 9.0 8.9 - 10.2 mg/dL 01/16/2025 1:14 AM [facility] Total Protein 6.1(L) 6.3 - 7.9 g/dL 01/16/2025 1:14 AM [facility] Albumin, Plasma 2.9(L) 3.5 - 5.2 g/dL 01/16/2025 1:14 AM [facility] AST, Plasma 77(H) 10 - 35 U/L 01/16/2025 1:14 AM [facility] ALT, Plasma 54(H) 10 - 35 U/L 01/16/2025 1:14 AM [facility] Alkaline Phosphatase, Plasma 271(H) 46 - 142 U/L 01/16/2025 1:14 AM [facility] Total Bilirubin, Plasma 0.4 0.2 - 1.1 mg/dL 01/16/2025 1:14 AM [facility] eGFRcr 61.4 mL/min/1.7 3m*2 01/16/2025 1:14 AM [facility] Comment:Reported eGFRcr in m L/min/1.73m2 is based the CKD-EPI 2020 equation that does not use a race coefficient. Blood Venous blood specimen / Unknown Venipuncture / Unknown 01/16/2025 12:36 AM EST 01/16/2025 12:41 AM EST Fransisco Gaston MD LAB BLOOD ORDERABLES Final Result [facility] [address] [place] [address] * (ABNORMAL) APTT (01/16/2025 12:36 AM EST) aPTT 36(H) 25 - 35 sec LAB COAGULATION METHOD 01/16/2025 1:15 AM EST [facility] Blood Venous blood specimen / Unknown Venipuncture / Unknown 01/16/2025 12:36 AM EST 01/16/2025 12:41 AM EST us Fransisco Gaston MD LAB BLOOD ORDERABLES Final Result Performing Organization Address [facility] Co de Phone Number [facility] [address] [place] [address] * (ABNORMAL) Prothrombin Time/INR (01/16/2025 12:36 AM EST) Prothrombin Time 15.3(H) 12.0 - 14.3 sec LAB COAGULATION METHOD 01/16/2025 1:15 AM EST [facility] INR 1.2(H) 0.9 - 1.1 LAB COAGULATION METHOD 01/16/2025 1:15 AM EST [facility] Blood Venous blood specimen / Unknown Venipuncture / Unknown 01/16/2025 12:36 AM EST 01/16/2025 12:41 AM EST Narrative [facility] - 01/16/2025 1:15 AM EST OPTIMAL INR RANGES FOR PATIENT ON ORAL ANTICOAGULANT THERAPY Prevention of venous thromboembolism INR 2.0 to 3.0 In patients with heart disease: Atrial fibrillation INR 2.0 to 3.0 Valvular heart disease INR 2.0 to 3.0 Tissue heart valves INR 2.0 to 3.0 Mechanical prosthetic valves INR 2.5 to 3.5 Prevention of recurrent SC INR 2.5 to 3.5 us Fransisco Gaston MD LAB BLOOD ORDERABLES Final Result Performing Organization Address City/[facility]/ZIP Co de Phone Number [facility] [address] [place] [address] * Type and Screen (01/16/2025 12:36 AM [...] TEST ORDERABLES Final Result Performing Organization Address City/State/[facility] Co de Phone Number BLOOD BANK [address] documented in this encounter Visit Diagnoses [...] 8:53 AM EST 30 mg nystatin (Mycostatin) 096180 UNIT/GM powder 1 Application Topical, 2 times [...] Felisa Whitlock, RAI)2143 (Given - Provider: Christina Fritz, RN) 0821 (Given - Provider: Ariadne Adame, [...] Felisa Whitlock RN)1754 (Given - Provider: Felisa Whitlock, RAI) 0821 [...] RN)2143 (Given - Provider: Christina Fritz RN) 0836 (Given - Provider: Ariadne Adame, RAI) NIFEdipine XL (Procardia XL) 24 hr tablet 30 mg 30 mg, Oral, Daily, First dose on Wed01/16/25 at 1030, Until Discontinued, Routine 0853 (Given - Provider: David Wheeler RN) 0842 (Given - Provider: Felisa Whitlock RN) 0821 (Given - Provider: Ariadne Adame, RAI) nystatin (Mycostatin) [id number] UNIT/GM powder 1 Application Topical, 2 times [...] RN) 0841 (Given - Provider: Felisa Whitlock, RAI)214 (Given - Provider: Christina Fritz RN) 0820 [...] 0841 (Given - Provider: Felisa Whitlock, RAI) 0820 (Given - Provider: Ariadne Adame RN) senna-docusate (Rebecca-Colace) 8.6-50 MG per tablet 1 tablet 1 tablet, Oral, 2 times daily, First dose on Wed01/21/25 at 1215, Until Discontinued, Routine 1232 (Given - Provider: David Wheeler RN)2116 (Given - Provider: Christina Fritz RN) 0842 (Given - Provider: Felisa Whitlock RN)214 (Given - Provider: Christina Fritz RN) 0820 (Given - Provider: Ariadne Adame RN) sodium chloride 0.9 % flush 10 mL 10 mL, Intravenous, Every 12 hours, First dose on Wed01/16/25 at 0130, Until Discontinued, Routine 0150 (Canceled Entry - Provider: Christina Fritz RN)1326 (Not Given - Provider: aDvid Wheeler RN - Reason: Patient/Family/Repre sentative Refused) 0119 (Canceled Entry - Provider: Christina Fritz RN)1255 (Canceled Entry - Provider: Felisa Whitlock RN) 0130 (Canceled Entry - Provider: Felisa Whiltock RN)1330 (Canceled Entry - Provider: Automatic Discharge [...] Fritz RN) 0000 (Rate/Dose Verify - Provider: Chrisitna Fritz RN)0100 (Rate/Dose Verify - Provider: Chrisitna Fritz RN)0200 (Rate/Dose Verify - Provider: Christina [...] at 151, Administer over 15 Minutes, Routine, low blood [...] Until Wed01/23/25 at 151, Routine, line care Group 2: glucose (Glutose) [...] at 151, Administer over 15 Minutes, Routine, low blood [...] documented as of this encounter Care Teams Mortgage Assistant Relationship Specialty Start Date End Date Chase Gunn MD [id number] PCP - General 06/21/20 documented as of this encounter
--- OUTSIDE RECORDS SUMMARY | 2025-01-16 15:24 | XMS_ITS | Encounter Summary ---
Author Organization Healthcare Address [address] [place] [address] Care Team Providers Care Diesel Service Apprentice Name Role Phone Chase Gunn MD Primary Care Provider [phone] Reason for Visit * Auth/Cert (Routine) Specialty Diagnoses / Procedures Referred By Contac t Referred To Contact Diagnoses Sepsis (CMS/HCC) infected spinal cord stimulator, MRSA Demar Jiménez MD [address] [place] [address] Phone: tel: fax: PAV A Inpatient [address] [place] [address] Referral ID Status Reason Start Date Expiration Date Visits Re quested Visits Authorized [id number] 1 1 Encounter Details Date Type Department Care Team (Late st Contact Info) Description 01/16/2025 3:24 PM EST Anesthesia Event [facility] A OPERATING ROOM [address] [place] [address] Diane Wong MD [address] [place] [address] Cony Braun APRN, EDVIN [address] [place] [address] Anesthesia Record Procedure Summary Procedure [...] Cydney Valiente RN 01/18/25 1300 by Felisa Wihtlock RN Urethral Catheter Placement Date: 01/16/25; Placement [...] any time in the past 12 m [facility], were you homeless or living in a [facility] (including now)? No 01/16/2025 [facility] Utilities Answer Date Recorded In the past 12 months has e [employer], [employer], oil, or water [employer] threatened to shut off services in your [...] and Staff Patient location during procedure: OR ADMINISTRATOR PESTICIDE: Nani Nixon CRNA, DNP Performed: ADMINISTRATOR PESTICIDE Patient Condition Indications for airway management: anesthesia [...] REMOVAL/REVISION, ALL OTHER INDICATED PROCEDURES (Back) Location: [facility] / [place] OR Surgeons: Fransisco Farley MD GISELLE Wray [...] Plan ASA 3 Plan was reviewed with: ADMINISTRATOR PESTICIDE Anesthesia technique(s) discussed with the patient/family: general [...] Description 02/14/2025 1:00 PM EST Office Visit [facility] [address] [place] [address] Asher Sinha MD [address] [facility] [address] [place] [address] 03/27/2025 8:30 AM EST Consult [place] [facility] [address] [place] [address] Fransisco Farley MD [address] [place] [address] documented as of this encounter Procedures Procedure Name Priority Date/Time Associated Diagnosis Comments ANESTHESIA PERIPHERAL IV PLACEMENT Routine 01/16/2025 3:45 PM EST PB ANESTHESIA PLACEHOLDER Routine 01/16/2025 3:32 PM EST ID AN ELECTIVE ENDOTRACHEAL AIRWAY Routine 01/16/2025 3:32 [...] MD ANESTHESIA ORDERABLES Final R esult * ID AN ELECTIVE ENDOTRACHEAL AIRWAY, PB ANESTHESIA PLACEHOLDER (01/16/2025 3:32 PM EST) Narrative Nnai Nixon CRNA, DNP - 01/16/2025 3:32 PM EST Nani Nixon CRNA, DNP 01/16/2025 3:54 PM Airway Date/Time: 01/16/2025 3:32 PM Reason: elective Airway not difficult General Information and Staff Patient location during procedure: OR ADMINISTRATOR PESTICIDE: Nani Nixon CRNA, DNP Performed: ADMINISTRATOR PESTICIDE Patient Condition Indications for airway management: anesthesia [...] documented as of this encounter Care Teams Diesel Service Apprentice Relationship Specialty [place] [id number] PCP - General 06/21/20 documented as of this encounter
--- OUTSIDE RECORDS SUMMARY | 2025-01-31 15:30 | XMS_ITS | Encounter Summary ---
Author Organization Healthcare Address [address] [place] [address] Care Team Providers Care Truck Technician Name Role Phone Chase Gunn MD Primary Care Provider [phone] Reason for Referral * Consultation (Routine) - Authorized Specialty Diagnoses / Procedures Referred By Contac t Referred To Contact Diagnoses MRSA bacteremia Asher Sinha MD [address] [place] [phone] Phone: tel: fax: Referral ID Status Reason Start Date Expiration Date V isits Requested Visits Authorized [id number] Authorized 01/31/2025 08/02/2026 1 1 Reason for Visit * Reason Comments MRSA Abscess Encounter Details Date Type Department Care Team (Late st Contact Info) Description 01/31/2025 3:30 PM EST Office Visit [address] [address] Asher Sinha MD [address] [place] [phone] Infection of spinal cord stimulator, subsequent encounter [...] any time in the past 12 m [facility], were you homeless or living in a skilled nursing (including now)? No 01/16/2025 [facility] Utilities Answer Date Recorded In the [...] Assessment Author 98.8 01/31/2025 1:02 PM EST [place] * Temp src Answer Date of Assessment Author Oral 01/31/2025 1:02 PM EST [place] * Pulse Answer Date of Assessment Author 73 01/31/2025 1:02 PM EST [place] * Resp Answer Date of Assessment Author 16 01/31/2025 1:02 PM EST [place] * SpO2 Answer Date of Assessment Author 96 01/31/2025 1:02 PM EST [place] * Weight Answer Date of Assessment Author 3185.21 01/31/2025 1:02 PM EST [place] * Total Weight Change Percent Answer Date of Assessment Author 2222 01/31/2025 1:02 PM EST [place] * Weight Change Since Preop Answer Date of Assessment Author 90.28 01/31/2025 1:02 PM EST [place] * Weight Change Since Last Visit Answer Date of Assessment Author 90.28 01/31/2025 1:02 PM EST [place] * Weight Change 24 hrs Answer Date of Assessment Author -6 01/31/2025 1:02 PM EST [place] * BP Location Answer Date of Assessment Author Left arm 01/31/2025 1:02 PM EST [place] * Restart Vitals Timer Answer Date of Assessment Author Yes 01/31/2025 1:02 PM EST [place] * AUDIT-C Score Answer Date of Assessment Author 0 01/31/2025 1:02 PM EST [place] * Alcohol Use Question Answer [...] Assessment Author 90.3 01/31/2025 1:02 PM EST [place] * Difference in Weight Since Last Visit Answer Date of Assessment Author -6 01/31/2025 1:02 PM EST [place] * Temp (in Celsius) for [place] IV Answer Date of Assessment Author 37.1 [...] Assessment Author Oral 01/31/2025 1:02 PM EST [place] * Pulse Answer Date of Assessment Author 73 01/31/2025 1:02 PM EST [place] * Resp Answer Date of Assessment Author 16 01/31/2025 1:02 PM EST [place] * SpO2 Answer Date of Assessment Author 96 01/31/2025 1:02 PM EST [place] * Weight Answer Date of Assessment Author 3185.21 01/31/2025 1:02 PM EST [place] * BP Location Answer Date of Assessment Author Left arm 01/31/2025 1:02 PM EST [place] * Restart Vitals Timer Answer Date of Assessment Author Yes 01/31/2025 1:02 PM EST [place] * Pain Score Answer Date of Assessment Author 0 01/31/2025 12:47 PM Jesus Torres * Patient Position Answer Date of Assessment Author Sitting 01/31/2025 1:02 PM EST [place] * Learning Needs Screening Question Answer Date of Assessment Author Are there things (barriers) that make it harder for this patient to learn? No Barriers 01/31/2025 1:01 PM Jesus Torres What is the best language to use for teaching this patient about his/her health? Khmer 01/31/2025 1:01 PM Jesus Torres What format [...] Date Author Oral 01/31/2025 1:02 PM EST [place] * Pulse Answer Entry Date [...] Date Author 90.28 01/31/2025 1:02 PM EST [place] * Weight Change 24 hrs Answer Entry Date Author -6 01/31/2025 1:02 PM EST [place] * BP Location Answer Entry Date Author Left arm 01/31/2025 1:02 PM EST [place] * Restart Vitals Timer Answer Entry Date Author Yes 01/31/2025 1:02 PM EST [place] * Alcohol Use Concern Calculation Answer Entry Date Author 1 01/31/2025 1:02 PM EST [place] * Skip to questions 9-10? Answer Entry Date Author 1 01/31/2025 1:02 PM EST [place] * Restart Pain Assessment Timer Answer Entry Date Author Yes 01/31/2025 12:47 PM Jesus Torres * Weight Change Since Preop Answer Entry Date Author 90.3 01/31/2025 1:02 PM EST [place] * Weight Change Since Last Visit Answer Entry Date Author 90.3 01/31/2025 1:02 PM EST [place] * Difference in Weight Since Last Visit Answer Entry Date Author -6 01/31/2025 1:02 PM EST [place] * Temp (in Celsius) for [place] IV Answer Entry Date Author 37.1 01/31/2025 [...] FOLLOW UP NOTE Patient Name: Rosa Wray [id number] female 74 y.o. Admission Dates: 01/15/2025-01/23/2025 Verbal [...] toxic-appearing. Comments: In wheelchair HENT: Mouth/Throat: Lips: [place]ion. No lesions. Mouth: Mucous membranes are moist. [...] is on pioglitazone (reviewed all records from [place]) but will also ensure all labwork today [...] Description 02/14/2025 1:00 PM EST Office Visit [address] [address] Asher Sinha MD [address] [facility] [address] [place] [address] 03/27/2025 8:30 AM EST Consult [place] [facility] [address], [address] [place] [address] Fransisco Farley MD [address] [place] [address] Scheduled Referrals Name Type Priority [...] LAB HEMATOLOGY METHOD 01/31/2025 2:26 PM EST [facility] RBC Count 3.46(L) 3.90 - 5.20 10*6/uL LAB HEMATOLOGY METHOD 01/31/2025 2:26 PM EST [facility] HGB 10.8(L) 11.2 - 15.7 g/dL LAB HEMATOLOGY METHOD 01/31/2025 2:26 PM EST [facility] HCT 34.3 34.0 - 45.0 % LAB HEMATOLOGY METHOD 01/31/2025 2:26 PM EST [facility] Platelet Count 313 155 - 369 10*3/uL LAB HEMATOLOGY METHOD 01/31/2025 2:26 PM [facility] MCV 99(H) 79 - 98 fL LAB HEMATOLOGY METHOD 01/31/2025 2:26 PM [facility] MCH 31.2 26.0 - 32.0 pg LAB HEMATOLOGY METHOD 01/31/2025 2:26 PM [facility] MCHC 31.5 30.7 - 35.5 g/dL LAB HEMATOLOGY METHOD 01/31/2025 2:26 PM [facility] RDW 14.6(H) 11.5 - 14.5 % LAB HEMATOLOGY METHOD 01/31/2025 2:26 PM [facility] MPV 9.8 8.8 - 12.5 fL LAB HEMATOLOGY METHOD 01/31/2025 2:26 PM [facility] nRBC 0.0 <=0.0 per 100 WBCs LAB HEMATOLOGY METHOD 01/31/2025 2:26 PM [facility] Differential Type Automated LAB HEMATOLOGY METHOD 01/31/2025 2:26 PM [facility] Neutrophils % 58 % LAB HEMATOLOGY METHOD 01/31/2025 2:26 PM [facility] Lymphocytes % 23 % LAB HEMATOLOGY METHOD 01/31/2025 2:26 PM [facility] Monocytes % 12 % LAB HEMATOLOGY METHOD 01/31/2025 2:26 PM [facility] Eosinophils % 6 % LAB HEMATOLOGY METHOD 01/31/2025 2:26 PM [facility] Basophils % 1 % LAB HEMATOLOGY METHOD 01/31/2025 2:26 PM [facility] Immature Granulocytes % 0 % LAB HEMATOLOGY METHOD 01/31/2025 2:26 PM [facility] Neutrophils Absolute 3.37 1.60 - 6.10 10*3/uL LAB HEMATOLOGY METHOD 01/31/2025 2:26 PM [facility] Lymphocytes Absolute 1.33 1.20 - 3.90 10*3/uL LAB HEMATOLOGY METHOD 01/31/2025 2:26 PM [facility] Monocytes Absolute 0.71 0.30 - 0.90 10*3/uL LAB HEMATOLOGY METHOD 01/31/2025 2:26 PM [facility] Eosinophils Absolute 0.32 0.00 - 0.50 10*3/uL LAB HEMATOLOGY METHOD 01/31/2025 2:26 PM [facility] Basophils Absolute 0.04 0.00 - 0.10 10*3/uL LAB HEMATOLOGY METHOD 01/31/2025 2:26 PM EST [facility] Immature Granulocytes Absolute 0.01 0.00 - 0.06 10*3/uL LAB HEMATOLOGY METHOD 01/31/2025 2:26 PM EST [facility] Blood Venous blood specimen / Unknown Venipuncture / Unknown 01/31/2025 12:57 PM EST 01/31/2025 1:01 PM EST Narrative [facility] - 01/31/2025 2:26 PM EST Therapeutic decision making should be based on absolute values, rather than percentages. us Merlin Massey MD LAB BLOOD ORDERABLES Final Resul t [facility] [address] [place] [address] * (ABNORMAL) Comprehensive metabolic panel (01/31/2025 12:57 PM EST) Glucose, Plasma 177(H) 74 - 99 mg/dL 01/31/2025 2:32 PM EST [facility] BUN, Plasma 19 8 - 23 mg/dL 01/31/2025 2:32 PM EST [facility] Creatinine, Plasma 1.15(H) 0.60 - 1.10 mg/dL 01/31/2025 2:32 PM EST [facility] BUN/Creatinine Ratio 17 01/31/2025 2:32 PM EST [facility] Sodium, Plasma 138 136 - 145 mmol/L 01/31/2025 2:32 PM EST [facility] Potassium, Plasma 4.1 3.6 - 4.9 mmol/L 01/31/2025 2:32 PM EST [facility] Chloride, Plasma 98 97 - 107 mmol/L 01/31/2025 2:32 PM EST [facility] CO2, Plasma 27 22 - 29 mmol/L 01/31/2025 2:32 PM EST [facility] Anion Gap 13 6 - 16 mmol/L 01/31/2025 2:32 PM EST [facility] Total Calcium, Plasma 9.4 8.9 - 10.2 mg/dL 01/31/2025 2:32 PM EST [facility] Total Protein 6.9 6.3 - 7.9 g/dL 01/31/2025 2:32 PM EST [facility] Albumin, Plasma 3.8 3.5 - 5.2 g/dL 01/31/2025 2:32 PM EST [facility] AST, Plasma 29 10 - 35 U/L 01/31/2025 2:32 PM EST [facility] ALT, Plasma 24 10 - 35 U/L 01/31/2025 2:32 PM EST [facility] Alkaline Phosphatase, Plasma 121 46 - 142 U/L 01/31/2025 2:32 PM EST [facility] Total Bilirubin, Plasma 0.2 0.2 - 1.1 mg/dL 01/31/2025 2:32 PM EST [facility] eGFRcr 50.1 mL/min/1.7 3m*2 01/31/2025 2:32 PM EST [facility] Comment:Reported eGFRcr in m L/min/1.73m2 is based the CKD-EPI 2020 equation that does not use a race coefficient. Blood Venous blood specimen / Unknown Venipuncture / Unknown 01/31/2025 12:57 PM EST 01/31/2025 1:01 PM EST us Merlin Massey MD LAB BLOOD ORDERABLES Final Resul t Performing Organization Address City/[facility]/ZIP Co de Phone Number [facility] [address] [place] [address] * Vancomycin, random (01/31/2025 12:57 PM EST) Vancomycin, Random, Plasma 14.9 ug/mL 01/31/2025 2:32 PM EST [facility] Blood Venous blood specimen / Unknown Venipuncture / Unknown 01/31/2025 12:57 PM EST 01/31/2025 1:01 PM EST us Merlin Massey MD LAB BLOOD ORDERABLES Final Resul t Performing Organization Address City/[facility]/ZIP Co de Phone Number [facility] [address] [place] [address] documented in this encounter Visit Diagnoses Diagnosis [...] documented as of this encounter Care Teams Truck Technician Relationship Specialty [place] [address] PCP - General 06/21/20 documented as of this encounter
--- OUTSIDE RECORDS SUMMARY | 2025-02-05 08:27 | XMS_ITS | Continuity of Care Document ---
Author Organization [facility] Address [address] [place] [address] Care Team Providers Care Padding Machine Operator Name Role Phone DARIELA LOCKETT Primary Care [...] urinalysis panel, auto 2024 025 [email or web address] 14 [facility] [place] With [facility], [address] [place] [address] , [address], [place], [address], 15:56:20 Referral None recorded. Procedures None recorded. Surgeries cystourethr oscopy, with injections for chemodenerv ation of the bladder (SURG) 2024 025 [email or web address] [facility] Service Professional Charges, [address] [facility], [facility] [address], [place], [address], 08:45:02 Imaging None recorded. Medication Orders mirabegron ER 50 mg tablet,exte nded release 24 hr 2024 025 [facility], [address] [place], [address], 15:58:38 Patient TargetsNo targets recorded. Patient Instructions Encounter Date Encounter Id Patient Instructions Last Modified By Organization Details Last Modified Time 12/07/2024 [id number] - Continue takin g Gemtesa as prescribed. - Prepare for scheduled Botox injections for bladder management. - Monitor urinary symptoms and report any changes. [email or web address] Not available 12/07/2024 15:58:14 Reason for Referral None Reported. Results Created Date Observation Date Name Description Value Unit Range Abnormal Flag Note LastModifiedBy Organization Detail LastModifiedTime 12/08/1912/07/2024 urina lysis panel , auto Unknown Analyte Clean Catch Not Available [facility] With [address], [place], [address], 12/07/2024 15:54:20 12/08/19 25 12/07/2024 urina lysis panel , auto Unknown Analyte Yellow Not Available [facility] With [address], [place], [address], 12/07/2024 15:54:20 12/08/19 25 12/07/2024 urina lysis panel , auto Unknown Analyte Clear Not Available [facility] With [address], [place], [address], 12/07/2024 15:54:20 12/08/1912/07/2024 urina lysis panel , auto Unknown Analyte 1.015 Not Available [facility] With [address], [place], [address], 12/07/2024 15:54:20 12/08/19 25 12/07/2024 urina lysis panel , auto Unknown Analyte 1.003 - 1.030 Not Available [facility] With [address], [place], [address], 12/07/2024 15:54:20 12/08/19 25 12/07/2024 urina lysis panel , auto Unknown Analyte 6.0 Not Available [facility] With [address], [place], [address], 12/07/2024 15:54:20 12/08/19 25 12/07/2024 urina lysis panel , auto Unknown Analyte 5.0 - 8.0 Not Available [facility] With [address] Garcia [address], [place], [address], 12/07/2024 15:54:20 12/08/19 25 12/07/2024 urina lysis panel , auto Unknown Analyte Negati ve Not Available [facility] With [address], [place], [address], 12/07/2024 15:54:20 12/08/19 25 12/07/2024 urina lysis panel , auto Unknown Analyte Negati ve Not Available [facility] With [address], [place], [address], 12/07/2024 15:54:20 12/08/19 25 12/07/2024 urina lysis panel , auto Unknown Analyte Negati ve Not Available [facility] With [address], [place], [address], 12/07/2024 15:54:20 12/08/19 25 12/07/2024 urina lysis panel , auto Unknown Analyte Negati ve Not Available [facility] With [address], [place], [address], 12/07/2024 15:54:20 12/08/19 25 12/07/2024 urina lysis panel , auto Unknown Analyte Negati ve Not Available [facility] With [address], [place], [address], 12/07/2024 15:54:20 12/08/19 25 12/07/2024 urina lysis panel , auto Unknown Analyte Negati ve Not Available [facility] With [address], [place], [address], 12/07/2024 15:54:20 12/08/19 25 12/07/2024 urina lysis panel , auto Unknown Analyte >1000 mg/dL Not Available [facility] With [address], [place], [address], 12/07/2024 15:54:20 12/08/19 25 12/07/2024 urina lysis panel , auto Unknown Analyte Normal Not Available [facility] With [place] [address] [address], [place], [address], 12/07/2024 15:54:20 12/08/19 25 12/07/2024 urina lysis panel , auto Unknown Analyte Negati ve Not Available [facility] With [place] [address] [address], [place], [address], 12/07/2024 15:54:20 12/08/19 25 12/07/2024 urina lysis panel , auto Unknown Analyte Negati ve Not Available [facility] With [facility] [address], [place], [address], 12/07/2024 15:54:20 12/08/19 25 12/07/2024 urina lysis panel , auto Unknown Analyte Normal Not Available [facility] With [facility] [address], [place], [address], 12/07/2024 15:54:20 12/08/19 25 12/07/2024 urina lysis panel , auto Unknown Analyte Normal Not Available [facility] With [address], [place], [address], 12/07/2024 15:54:20 12/08/19 25 12/07/2024 urina lysis panel , auto Unknown Analyte Negati ve Not Available [facility] With [address], [place], [address], 12/07/2024 15:54:20 12/08/19 25 12/07/2024 urina lysis panel , auto Unknown Analyte Negati ve Not Available [facility] With [address], [place], [address], 12/07/2024 15:54:20 12/08/19 25 12/07/2024 urina lysis panel , auto Unknown Analyte Negati ve Not Available [facility] With [address], [place], [address], 12/07/2024 15:54:20 12/08/1912/07/2024 urina lysis panel , auto Unknown Analyte Negati ve Not Available [facility] With [address], [place], [address], 12/07/2024 15:54:20 Result Notes None recorded. Problems Name Problem SNOMED Code Status Onset Date Resolution Date Notes Provider Name and Address Organization Details Recorded Time Overactive urinary bladder 982359818 Active 024 JOSE AMIN MD [address] [place] [address], [address] [place] [address] 15:59:10 Problem Notes None recorded. Procedures Surgical History Date Name Laterality Status Provider Name and Address Organization Details Recorded Time 07/11/19 25 arthroplasty of knee completed Murelene Dionicio [facility] 12/07/2024 15:54:02 cholecystectomy completed Anthony Richards [facility] 11/22/2023 14:47:43 Carpal tunnel surgery completed [facility] 11/22/2023 14:47:59 hernia repair completed [facility] 11/22/2023 14:48:23 biopsy completed [facility] 11/22/2023 14:48:59 Tubal Ligation completed [facility] 11/22/2023 14:49:07 procedure on finger completed [facility] 11/22/2023 14:49:32 Cerebral Aneurysm completed [facility] 11/22/2023 14:50:43 Imaging Results None recorded. Procedure Notes None recorded. Medical Equipment None Reported. Allergies Allergen ID Allergen Name Allergen Category Reaction Reaction Severity Criticality Documentation Date Start Date Code Code System Note Provider Name and Address Organization Details Recorded Time [id number] Ozempic medicatio n Not available Not available Not available 11/22/2023 RxNorm [place] [facility] 14:43:39 Medications Name [...] Updated DateTime 12/07/2024 165.1 cm 32.4 kg/m2 98313.51 g Gerson Dionicio [facility] 12/07/2024 15:53:27 Social History Question Answer Notes LastModified by Organizat ion Details LastModified Time Tobacco Smoking Status Never Smoker Anthony brock, [facility] 11/22/2023 14:47:17 What Was The Date Of Your Most Recent Tobacco Screening? 06/15/2024 [email or web address] Information not available 06/15/2024 What Is Your Relationship Status? [email or web address] Information not available 11/22/2023 Has Tobacco Cessation Counseling Been Provided? No [email or web address] Information not available 11/22/2023 Sex: Unknown Functional Status Question Answer Note LastModified by Organizat ion Details LastModified Time Do you use any illicit or recreational drugs? No [email or web address] Information not available 11/22/2023 Do you or have you ever used any other forms of tobacco or nicotine? No [email or web address] Information not available 11/22/2023 What is your level of alcohol consumption? None [email or web address] Information not available 11/22/2023 Are you currently employed? No retired [email or web address] Information not available 11/22/2023 Mental Status None recorded. Family History Relationship Description Onset Age of this Age Resolved Age Notes LastModified by Organization Details LastModified Time Father No current problems or disability [email or web address] Not available 14:47:07 Mother No current problems or disability [email or web address] Not available 14:47:07 Medical History Condition Response Diabetes Y Anemia Y Arthritis Y Stroke Y Hypertension Y Gynecological HistoryNo gynecological history recorded. Obstetrics History GPAL:G 0 P 0 0 0 0 Immunizations Vaccine Type Date Status Note Provider Nam e and Address Organization Details Recorded Time Influenza, high-dose, trivalent, PF 7 completed Not Available [facility] 12/07/2024 15:51:40 Influenza, split virus, quadrivalent, PF [...] high-dose, quadrivalent, PF 5 completed Not Available [facility] 12/07/2024 15:51:40 Pneumococcal conjugate PCV20, polysaccharide SSW911 conjugate, adjuvant, PF completed Not Available [facility] 12/07/2024 15:51:40 Past Encounters Encounter ID Performer Location Encounter Start Date Encounter Closed Date Diagnosis/Indication Diagnosis SNOMED-CT Code Diagnosis ICD10 Code Diagnosis IMO Codes Diagnosis Note [id number] JOSE AMIN MD [facility] [address] [facility],[place] [address] 12/07/2024 15:50:47 12/07/2024 16:37:13 Overactive urinary bladder 486297589 N32.81 965555 - Continue current medication regimen with Gemtesa, although effectiven ess is limited. - Schedule for Botox injections to manage symptoms, as discussed. Urge incon tinence of urine 44810111 N39.41 109653 - Considerat ion of Botox injections for symptom management . Nocturia 337285850 R35.1 48279 - Monitor nocturia symptoms and adjust treatment plan as necessary. Health Concerns Section Related Observation LastModified by Organization Detai ls LastModified Time None Recorded Concern Status LastModified by Organization Details LastModified Time None Recorded Payers Encounter Date Sequence Insurance Name Policy Number Policy Batista Covered Member ID Batista Member ID Guarantor Name 12/07/2024 1 [place] Rosa Huston Kamala [id number] Rosa Huston Kamala 12/07/2024 2 [facility]: [facility] [id number] [facility] [id number] [address] [facility] Notes Date Note Type Note Provider [...] note prior to signature. JOSE AMIN MD [address] [place] [address], [address], [facility] 12/18/2024 09:26:56 OBGyn Episode No OBEpisode recorded.
--- OUTSIDE RECORDS SUMMARY | 2025-02-05 08:27 | XMS_ITS | Clinical Summary ---
[facility] Address [address] [place] [address] Care Team Providers Care Public Health Internship Name Role Phone Chase Gunn MD Primary Care Provider [phone] Allergies Active Allergy Reactions Criticality Noted Date [...] Completed 01/18/2025 Medical Devices Implanted Type Area Dag Sprayer Device Identifier Shelf Expiration Date Model / Serial / Lot Interstim Implant Coil Target 3d 3mm 6cm - [id number] Implanted:Qty: 1 on 05/03/2020 by Jerome Hays MD at [facility] Implant [employer] [id number] / / Coil Target Detach 360 Nikia 2mm 3cm - [id number] Implanted:Qty: 1 on 05/03/2020 by Jerome Hays MD at [facility] Implant [employer] [id number] / / Explanted Type Area Dag Sprayer Device Identifier Shelf Expiration Date Model / Serial / Lot Coil Axium Radford 3d Sys [id number] - [id number] Explanted:Qty: 1 on 05/03/2020 at [facility] Implant [employer] [id number] / / Description:Did not detach t he coil Coil Axium Radford 3d Sys 4mm 6cm - [id number] Explanted:Qty: 1 on 05/03/2020 at [facility] Implant [employer] [place] [id number] / / Description:Coil removed Coil Axium Prime 3d Xsft 3mm 4cm - [id number] Explanted:Qty: 1 on 05/03/2020 at [facility] Implant [employer] [id number] / / Description:Coil removedf Coil Axium Radford 3d Sys 3x4mm - [id number] Explanted:Qty: 1 on 05/03/2020 at [facility] Implant EV3 A [employer] [place] [id number] / / Description:Coil removed Procedures Procedure Name [...] Documents on File Type Date Recorded Patient 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
--- OUTSIDE RECORDS SUMMARY | 2025-02-05 08:29 | XMS_ITS | Encounter Summary ---
Author Organization [facility] Address [address] [place] [address] Care Team Providers Care Stockroom Clerk Name Role Phone Chase Gunn MD Primary Care Provider [phone] Encounter Details Date Type Department Care Team [...] any time in the past 12 m ont, were you homeless or living in a alf (including now)? No 01/16/2025 [facility] Utilities Answer Date Recorded In [...] Description 02/14/2025 1:00 PM EST Office Visit [facility] [address] [place] [address] Asher Sinha MD [address] [facility] [address] [place] [id number] 03/27/2025 8:30 AM EST Consult [facility] [address] [place] [address] Fransisco Farley MD [address] [place] [address] documented as of this encounter Visit Diagnoses Not on filedocumented in this encounter Additional Health Concerns Assessment Noted Time A Body Mass Index follow-up plan has been documented for the patient 01/23/2025 12:18 PM EST documented as of this encounter Care Teams Stockroom Clerk Relationship Specialty [place] [id number] PCP - General 06/21/20 documented as of this encounter
--- OUTSIDE RECORDS SUMMARY | 2025-02-05 08:29 | XMS_ITS | Clinical Summary ---
Author Organization [facility] Address [address] [place] [address] Care Team Providers Care Bottom Cementer Name Role Phone Chase Gunn MD Primary Care Provider [phone] Allergies Active Allergy Reactions Criticality Noted Date [...] as needed for anxiety. 3 tablet Active amLODIPine (Norvasc) 5 MG tablet Take 1 tablet by mouth daily. Active calcium citrate 600 mg and vitamin D3 (Citrical & Minerals + Vit D) 600-200 MG-UNIT tablet every 8 hours. Activ e Candesartan Cilexetil-HCTZ 32-25 MG tablet Acti ve cephalexin (Keflex) 500 MG capsule Active darifenacin (Enablex) 15 MG 24 hr tablet 1 (one) time each day at the same time. Active gabapentin (Neurontin) 300 MG capsule Take 1 capsule by mouth. Active ibuprofen 600 MG tablet as needed. Active Multiple Vitamin (Multi Vitamin) tablet 1 (one) time each day at the same time. Active nystatin (Mycostatin) 920719 UNIT/ML suspension Active predniSONE (Deltasone) 20 MG tablet Take 1 tablet twice a day by oral route for 5 days. Active Gemtesa 75 MG tablet Take 1 tablet by mouth Daily. Active HEPARIN SOD, PORK, LOCK FLUSH IV Infuse 10 mL into a venous catheter. Active metFORMIN (Glucophage) 1000 MG tablet Take 1 tablet by mouth 2 times a day with meals. Active vancomycin (Vancocin) 250 MG capsule 1 capsule. Active ferrous sulfate 325 (65 Fe) MG [...] Take 1 tablet by mouth daily. 2024 Discontinued clonazePAM (KlonoPIN) 1 MG tablet Take 1 tablet by mouth daily as needed for anxiety. 2024 Discontinued Active Problems Problem Noted Date Diagnosed Date Allergic rhinitis 01/31/2025 Arthritis of right knee 01/31/2025 Chronic anemia 01/31/2025 Constipation 01/31/2025 Glossodynia 01/31/2025 Hyperhidrosis 01/31/2025 Low back pain 01/31/2025 Mixed anxiety depressive disorder 01/31/2025 Pharyngeal dysphagia 01/31/2025 Pure hypercholesterolemia 01/31/2025 Stage 3a chronic kidney disease 01/31/2025 Stage 3b chronic kidney disease 01/31/2025 Subacute vaginitis 01/31/2025 Taste sense altered 01/31/2025 Thyromegaly 01/31/2025 Mixed incontinence 01/31/2025 Urinary incontinence 01/31/2025 Type 2 diabetes mellitus without complication Type 2 diabetes mellitus without complications 1 04/03/2024 Essential hypertension 01/31/2025 Severe obesity (BMI 35.0-39.9) with comorbidity 01/21/2025 Mixed hyperlipidemia 01/16/2025 Major depressive disorder with single episode, i n remission 01/16/2025 MADELEINE (iron deficiency anemia) 01/16/2025 Gastroesophageal reflux disease without esophagi tis 01/16/2025 Hypertension 02/29/2024 Diabetes mellitus 02/29/2024 Overactive bladder 11/22/2023 Chronic pain 09/07/2023 Lumbar post-laminectomy syndrome 09/07/2023 Lumbar radiculopathy 09/07/2023 Lumbar spondylosis 09/07/2023 Overweight 09/07/2023 Compression fracture of lumbar vertebra 07/28/19 Resolved Problems Problem Noted Date Diagnosed Date Resolved Date Postoperative sepsis 01/16/2025 025 Cellulitis of back except buttock 01/16/2025 01/23/2025 MRSA bacteremia 01/16/2025 01/23/2025 Transaminitis 01/16/2025 01/23/2025 Encounters Date Type Department Care Team Description 01/31/2025 3:30 PM EST Office Visit [address] [address] Asher Sinha MD Infection of spinal cord stimulator, subsequent encounter (Primary Dx); MRSA bacteremia; Blood creatinine increased compared with prior measurement 01/31/2025 Clinical Support [address] [address] Pepe Sharp, PharmD 01/31/2025 Travel 01/31/2025 Results Follow-Up [address] [address] Asher Sinha MD 01/24/2025 Clinical Support [address] [address] Madelaine Guevara, PharmD 01/22/2025 Clinical Support [address] [address] Madelaine Guevara, PharmD 01/20/2025 Travel 01/17/2025 Travel 01/16/2025 3:24 PM EST Anesthesia Event [facility] [address] [place] [address] Diane Wong MD Carney Tinsley, Amanda S, APRN, DNP 01/16/2025 3:00 PM EST - 01/16/2025 5:10 PM EST Surgery [facility] [address] [place] [address] Fransisco Farley MD EXPLORATION, WOUND, POSSIBLE SCS REMOVAL/REVISION, ALL OTHER INDICATED PROCEDURES [ (CPT )] 01/16/2025 Travel 01/15/2025 9:57 PM EST - 01/23/2025 1:13 PM EST Hospital Encounter [facility] [address] [place] [address] Fransisco Farley MD Arora, Ankit, MD Ramay, Tehreem K, MD Jose, Jemin A, MD MRSA bacteremia (Primary Dx); Postoperative sepsis (CMS/HCC) [T81.44XA]; Cellulitis of back except buttock Discharge Disposition: [facility]pc Facility 01/15/2025 Travel 01/14/2025 Orders Only External Location [address] [place] [address] Provider, External 01/13/2025 Orders Only External Location [address] [place] [address] Provider, External 01/10/2025 Orders Only External Location [address] [place] [address] Provider, External 01/10/2025 Orders Only External Location [address] [place] [address] Provider, External 01/10/2025 Orders Only External Location [address] [place] [address] Provider, External 01/10/2025 Orders Only External Location [address] [place] [address] Provider, External 01/10/2025 - 01/10/2025 11:59 PM EST Hospital Encounter Image Record Center [address] [place] [address] Examination Discharge Disposition: Home or Self Care [...] any time in the past 12 m [facility], were you homeless or living in a assisted (including now)? No 01/16/2025 [facility] Utilities Answer Date Recorded In [...] kg (199 lb 1.2 oz) 01/31/2025 1:02 P M EST Height 160 cm (5' 3 ) 01/16/2025 3:05 PM EST Body Mass Index 35.26 01/16/2025 3:05 PM EST Plan of Treatment Upcoming Encounters Date Type Department Care Team (Late st Contact Info) Description 02/14/2025 1:00 PM EST Office Visit [facility] [address] [place] [address] Asher Sinha MD [address] [place] [address] 03/27/2025 8:30 AM EST Consult [place] [facility] [address] [place] [address] Fransisco Farley MD [address] [place] [address] Health Maintenance Due Date Last Done Comments [facility]-Bone Density Scan 1950 [facility]-Depression Screening 1950 [facility]-Medicare Annual Wellness (AWV) 1950 [facility]-Infant/Child/Adol SDOH Screenings 1950 Diabetes: Dental Exam 1960 [facility]-Hepatitis A Vaccines (1 of 2 - Risk 2-dose series) 1969 [facility]-Zoster Vaccines (1 of 2) 1969 CT Colonography 12/20/1995 Colonoscopy 12/20/1995 FIT-DNA 12/20/1995 FIT 12/20/1995 FOBT 12/20/1995 Sigmoidoscopy 12/20/1995 [facility]-Colorectal Cancer Screening 12/20/1995 [facility]-Breast Cancer Screening 2000 [facility]-RSV Vaccine: 60+ Years or (1 - Risk 50-74 years 1-dose series) 2000 [id number] Vaccine ( season) 2024 11/07/2020, 06/20/2020, 05/23/2020 [facility]-Diabetes: Hemoglobin A1C 04/17/2025 01/16/2025 [facility]- SDOH Screenings 07/17/2025 [facility]-Adult SDOH Screenings 07/17/2025 01/16/2025 [facility]-DTaP,Tdap,and Td Vaccines (2 - Td or Tdap) 04/07/2033 04/08/2023 [facility]-Influenza Vaccine Completed 11/22/2024 , 11/19/2017, 11/05/2016 [facility]-Pneumococcal Vaccine: 50+ Years Completed 12/04/2024 [facility]-Hepatitis C Screening Completed 01/18/2025 [facility]-Obesity Intervention Completed 025, 01/31/2025, 01/24/2025, Additional history exists HPV Vaccines (No Doses Required) Completed [facility]-HIB Vaccines Aged Out No longer e ligible based on patient's age to complete this topic [facility]-IPV Vaccines Aged Out No longer e ligible based on patient's age to complete this topic [facility]-Rotavirus Vaccines Aged Out No lo nger eligible based on patient's age to complete this topic Medical Devices Implanted Type Area Team Leader Surgery Device Identifier Shelf Expiration Date Model / Serial / Lot Interstim Bladder Stimulator-01/14 Implanted:01/14 (Quantity not on file) Bladder Stimulator Back Medtronic [id number] / [id number] / Stimulator Lead Medtronic-2017 Implanted:01/14 (Quantity not on file) Lead Back Medtronic [id number] / [id number] / Procedures Procedure Name Priority Date/Time Associated Diagnosis Comments CBC WITH AUTO DIFFERENTIAL Routine 01/31/2025 12:57 PM EST MRSA bacteremia COMPREHENSIVE METABOLIC PANEL, PLASMA Routine 01/31/2025 12:57 PM EST MRSA bacteremia VANCOMYCIN, RANDOM, PLASMA Routine 01/31/2025 12:57 PM EST MRSA bacteremia VANCOMYCIN, RANDOM, PLASMA Routine 01/29/2025 CBC WITH AUTO DIFFERENTIAL Routine 01/29/2025 UREA NITROGEN, PLASMA Routine 01/29/2025 CREATININE, PLASMA Routine 01/29/2025 HEPATIC FUNCTION PANEL Routine 01/29/2025 POCT GLUCOSE METER UNSOLICITED RESULTS Routine 01/23/2025 [...] ANESTHESIA PLACEHOLDER Routine 01/16/2025 3:32 PM EST OH AN ELECTIVE ENDOTRACHEAL AIRWAY Routine 01/16/2025 3:32 [...] from Last 3 Months Results * (ABNORMAL) CBC and Differential (01/31/2025 12:57 PM EST) Only the most recent of5 resultswithin the time period is included. WBC Count 5.78 3.70 - 10.30 10*3/uL LAB HEMATOLOGY METHOD 01/31/2025 2:26 PM EST [facility] RBC Count 3.46(L) 3.90 - 5.20 10*6/uL LAB HEMATOLOGY METHOD 01/31/2025 2:26 PM EST [facility] HGB 10.8(L) 11.2 - 15.7 g/dL LAB HEMATOLOGY METHOD 01/31/2025 2:26 PM [facility] HCT 34.3 34.0 - 45.0 % LAB HEMATOLOGY METHOD 01/31/2025 2:26 PM [facility] Platelet Count 313 155 - 369 10*3/uL LAB HEMATOLOGY METHOD 01/31/2025 2:26 PM [facility] MCV 99(H) 79 - 98 fL LAB HEMATOLOGY METHOD 01/31/2025 2:26 PM [facility] MCH 31.2 26.0 - 32.0 pg LAB HEMATOLOGY METHOD 01/31/2025 2:26 PM [facility] MCHC 31.5 30.7 - 35.5 g/dL LAB HEMATOLOGY METHOD 01/31/2025 2:26 PM [facility] RDW 14.6(H) 11.5 - 14.5 % LAB HEMATOLOGY METHOD 01/31/2025 2:26 PM [facility] MPV 9.8 8.8 - 12.5 fL LAB HEMATOLOGY METHOD 01/31/2025 2:26 PM [facility] nRBC 0.0 <=0.0 per 100 WBCs LAB HEMATOLOGY METHOD 01/31/2025 2:26 PM [facility] Differential Type Automated LAB HEMATOLOGY METHOD 01/31/2025 2:26 PM [facility] Neutrophils % 58 % LAB HEMATOLOGY METHOD 01/31/2025 2:26 PM [facility] Lymphocytes % 23 % LAB HEMATOLOGY METHOD 01/31/2025 2:26 PM [facility] Monocytes % 12 % LAB HEMATOLOGY METHOD 01/31/2025 2:26 PM [facility] Eosinophils % 6 % LAB HEMATOLOGY METHOD 01/31/2025 2:26 PM [facility] Basophils % 1 % LAB HEMATOLOGY METHOD 01/31/2025 2:26 PM [facility] Immature Granulocytes % 0 % LAB HEMATOLOGY METHOD 01/31/2025 2:26 PM [facility] Neutrophils Absolute 3.37 1.60 - 6.10 10*3/uL LAB HEMATOLOGY METHOD 01/31/2025 2:26 PM [facility] Lymphocytes Absolute 1.33 1.20 - 3.90 10*3/uL LAB HEMATOLOGY METHOD 01/31/2025 2:26 PM [facility] Monocytes Absolute 0.71 0.30 - 0.90 10*3/uL LAB HEMATOLOGY METHOD 01/31/2025 2:26 PM EST [facility] Eosinophils Absolute 0.32 0.00 - 0.50 10*3/uL LAB HEMATOLOGY METHOD 01/31/2025 2:26 PM EST [facility] Basophils Absolute 0.04 0.00 - 0.10 10*3/uL LAB HEMATOLOGY METHOD 01/31/2025 2:26 PM EST [facility] Immature Granulocytes Absolute 0.01 0.00 - 0.06 10*3/uL LAB HEMATOLOGY METHOD 01/31/2025 2:26 PM EST [facility] Blood Venous blood specimen / Unknown Venipuncture / Unknown 01/31/2025 12:57 PM EST 01/31/2025 1:01 PM EST Narrative [facility] - 01/31/2025 2:26 PM EST Therapeutic decision making should be based on absolute values, rather than percentages. us Merlin Massey MD LAB BLOOD ORDERABLES Final Resul t Performing Organization Address City/[facility]/ZIP Co de Phone Number [facility] [address] [place] [address] * Vancomycin, random (01/31/2025 12:57 PM EST) Only the most recent of2 resultswithin the time period is included. Vancomycin, Random, Plasma 14.9 ug/mL 01/31/2025 2:32 PM EST [facility] Blood Venous blood specimen / Unknown Venipuncture / Unknown 01/31/2025 12:57 PM EST 01/31/2025 1:01 PM EST us Merlin Massey MD LAB BLOOD ORDERABLES Final Resul t [facility] [address] [place] [address] * (ABNORMAL) Comprehensive metabolic panel (01/31/2025 12:57 PM EST) Only the most recent of2 resultswithin the time period is included. Glucose, Plasma 177(H) 74 - 99 mg/dL 01/31/2025 2:32 PM EST [facility] BUN, Plasma 19 8 - 23 mg/dL 01/31/2025 2:32 PM [facility] Creatinine, Plasma 1.15(H) 0.60 - 1.10 mg/dL 01/31/2025 2:32 PM EST [facility] BUN/Creatinine Ratio 17 01/31/2025 2:32 PM EST [facility] Sodium, Plasma 138 136 - 145 mmol/L 01/31/2025 2:32 PM EST [facility] Potassium, Plasma 4.1 3.6 - 4.9 mmol/L 01/31/2025 2:32 PM EST [facility] Chloride, Plasma 98 97 - 107 mmol/L 01/31/2025 2:32 PM [facility] CO2, Plasma 27 22 - 29 mmol/L 01/31/2025 2:32 PM [facility] Anion Gap 13 6 - 16 mmol/L 01/31/2025 2:32 PM [facility] Total Calcium, Plasma 9.4 8.9 - 10.2 mg/dL 01/31/2025 2:32 PM [facility] Total Protein 6.9 6.3 - 7.9 g/dL 01/31/2025 2:32 PM [facility] Albumin, Plasma 3.8 3.5 - 5.2 g/dL 01/31/2025 2:32 PM [facility] AST, Plasma 29 10 - 35 U/L 01/31/2025 2:32 PM [facility] ALT, Plasma 24 10 - 35 U/L 01/31/2025 2:32 PM [facility] Alkaline Phosphatase, Plasma 121 46 - 142 U/L 01/31/2025 2:32 PM [facility] Total Bilirubin, Plasma 0.2 0.2 - 1.1 mg/dL 01/31/2025 2:32 PM [facility] eGFRcr 50.1 mL/min/1.7 3m*2 01/31/2025 2:32 PM EST [facility] Comment:Reported eGFRcr in m L/min/1.73m2 is based the CKD-EPI 2020 equation that does not use a race coefficient. Blood Venous blood specimen / Unknown Venipuncture / Unknown 01/31/2025 12:57 PM EST 01/31/2025 1:01 PM EST Merlin Massey MD LAB BLOOD ORDERABLES Final Resul t [facility] [address] [place] [address] * (ABNORMAL) Creatinine, Plasma (01/29/2025) External Creatinine Blood 1.30(A) 0.52 - 1.04 mg/dL Blood Venous blood specimen / Unknown 01/29/2025 Asher Sinha MD LAB BLOOD ORDERABLES F inal Result * (ABNORMAL) Urea Nitrogen, Plasma (01/29/2025) External BUN 20(A) 7 - 17 mg/dL Blood Venous blood specimen / Unknown 01/29/2025 us Asher Sinha MD LAB BLOOD ORDERABLES F inal Result * (ABNORMAL) Hepatic Function Panel (01/29/2025) Only the most recent of2 resultswithin the time period is included. External Alkaline Phosphatase 127(A) 38 - 126 U/L External Bilirubin Total 0.4 0.2 - 1.3 mg/dL External ALT (SGPT) 29 12 - 78 U/L External AST (SGOT) 37(A) 14 - 36 U/L Blood Venous blood specimen / Unknown 01/29/2025 us Asher Sinha MD LAB BLOOD ORDERABLES F inal Result * (ABNORMAL) POCT glucose meter (01/23/2025 8:18 AM EST) Only the most recent of32 resultswithin the time period is included. POCT Glucose 147(H) 74 - 99 mg/dL 01/23/2025 8:20 AM EST [facility] Comment:Accuracy of [...] Comment 01/23/2025 8:20 AM EST [facility] Human Resources Intern ID Benji Gilbert 01/23/2025 8:20 AM EST [facility] Device ID [id number] 01/23/2025 8:20 AM EST [facility] Specimen Type POC Capillary 01/23/2025 8:20 AM EST [facility] Blood Capillary blood specimen / Unknown 01/23/2025 8:18 AM EST 01/23/2025 8:20 AM EST us Merlin Massey MD LAB POINT OF CARE TE ST DOCKED DEVICE UNSOLICITED RESULTS Final Result [facility] [address] [place] [address] * Vancomycin, Peak, Plasma Please draw ~2 hours after 0300 dose on 01/22 finishes infusing. Consider obtaining level via peripheral stick. If peripheral stick is not feasible, please ensure that line is flushed well prior to drawing level. Thanks! (01/22/2025 6:32 AM EST) Only the most recent of2 resultswithin the time period is included. [facility] Vancomycin, Peak, Plasma 29.1 20.0 - 40.0 ug/mL 01/22/2025 7:07 AM EST [facility] Blood Venous blood specimen / Unknown Venipuncture / Unknown 01/22/2025 6:32 AM EST 01/22/2025 6:37 AM EST Narrative [facility] - 01/22/2025 7:07 AM EST Therapeutic Peak level: 20-40ug/mL Supra-therapeutic Peak level: >40 ug/mL us Cleve Deleon MD LAB BLOOD ORDERABLES Final Re sult Performing Organization Address [facility]/ZIP Co de Phone Number [facility] [address] [place] [address] * Vancomycin, Trough, Plasma Please draw ~30 [...] - 20.0 ug/mL 01/22/2025 3:45 AM EST [facility] Blood Venous blood specimen / Unknown Venipuncture / Unknown 01/22/2025 3:04 AM EST 01/22/2025 3:15 AM EST Narrative [facility] - 01/22/2025 3:45 AM EST Therapeutic Trough level: 10-20ug/mL Supra-therapeutic Trough level: >20 ug/mL Cleve Deleon MD LAB BLOOD ORDERABLES Final Re sult Performing Organization Address [facility] Co de Phone Number [facility] [address] [place] [address] * XR Chest 1 View (01/20/2025 5:57 [...] Ha RN Authorized by: Cleve Deleon MD [place] Protocol: Verbal consent obtained?: Yes Written consent [...] preference. Patient position: Supine Catheter Lot #: [id number] Catheter fun house attendant: Catheter placed: Single lumen Catheter size: 4 [...] MD LAB URINE ORDERABLES Final Re sult [facility] [address] [place] [address] * Urine Avery Panel (01/20/2025 11:02 AM EST) Extra Sent for Culture 01/20/2025 1:02 PM EST [facility] Urine Urine specimen obtained by clean catch procedure / Unknown Non-blood Collection / Unknown 01/20/2025 11:02 AM EST 01/20/2025 11:06 AM EST Cleve Deleon MD LAB URINE ORDERABLES Final Re sult [facility] [address] [place] [address] * Urinalysis Microscopic Examination (01/20/2025 11:02 AM EST) Urine Urine specimen obtained by clean catch procedure / Unknown Non-blood Collection / Unknown 01/20/2025 11:02 AM EST 01/20/2025 11:06 AM EST Cleve Deleon MD LAB URINE ORDERABLES Final Re sult Performing Organization Address City/[facility]/ZIP Co de Phone Number [facility] [address] [place] [address] * (ABNORMAL) Urinalysis with reflex microscopic (Culture NOT Included) (01/20/2025 11:02 AM EST) Only the most recent of2 resultswithin the time period is included. Color, Urine Yellow LAB URINALYSIS - AUTOMATED METHOD 01/20/2025 11:24 AM EST [facility] Clarity, Urine Cloudy LAB URINALYSIS - AUTOMATED METHOD 01/20/2025 11:24 AM EST [facility] Spec [place], Urine 1.017 1.005 - 1.030 LAB URINALYSIS - AUTOMATED METHOD 01/20/2025 11:24 AM EST [facility] pH, Urine 6.5 5.0 - 8.0 LAB URINALYSIS - AUTOMATED METHOD 01/20/2025 11:24 AM EST [facility] Protein, Urine Trace(A) Negative mg/dL LAB URINALYSIS - AUTOMATED METHOD 01/20/2025 11:24 AM EST [facility] Glucose, Urine >=1000(A) Negative mg/dL LAB URINALYSIS - AUTOMATED METHOD 01/20/2025 11:24 AM EST [facility] Ketones, Urine Negative Negative mg/dL LAB URINALYSIS - AUTOMATED METHOD 01/20/2025 11:24 AM EST [facility] Blood, Urine Trace(A) Negative LAB URINALYSIS - AUTOMATED METHOD 01/20/2025 11:24 AM EST [facility] Bilirubin, Urine Negative Negative LAB URINALYSIS - AUTOMATED METHOD 01/20/2025 11:24 AM EST [facility] Urobilinogen, Urine 0.2 0.2 to 1.0 mg/dL LAB URINALYSIS - AUTOMATED METHOD 01/20/2025 11:24 AM EST [facility] Leukocytes, Urine Small(A) Negative LAB URINALYSIS - AUTOMATED METHOD 01/20/2025 11:24 AM EST [facility] Nitrite, Urine Negative Negative LAB URINALYSIS - AUTOMATED METHOD 01/20/2025 11:24 AM EST [facility] RBC, Urine 2 0 to 3 /HPF LAB URINALYSIS - AUTOMATED METHOD 01/20/2025 11:24 AM EST [facility] WBC, Urine >50(A) 0 to 5 /HPF LAB URINALYSIS - AUTOMATED METHOD 01/20/2025 11:24 AM EST [facility] Squamous Epithelial Cells 0 - 2 0 to 5 /HPF LAB URINALYSIS - AUTOMATED METHOD 01/20/2025 11:24 AM EST [facility] Hyaline Casts 3 - 5 0 to 5 /LPF LAB URINALYSIS - AUTOMATED METHOD 01/20/2025 11:24 AM EST [facility] Bacteria, Urine Negative Negative LAB URINALYSIS - AUTOMATED METHOD 01/20/2025 11:24 AM EST [facility] Yeast (Budding and/or Pseudohyphae) Present(A) Absent LAB URINALYSIS - AUTOMATED METHOD 01/20/2025 11:24 AM EST [facility] Urine Urine specimen obtained by clean catch procedure / Unknown Non-blood Collection / Unknown 01/20/2025 11:02 AM EST 01/20/2025 11:06 AM EST us Cleve Deleon MD LAB URINE ORDERABLES Final Re sult [facility] [address] [place] [address] * (ABNORMAL) Urine Culture (01/20/2025 11:02 AM EST) Culture 10,000 - 100,000 CFU/mL Trista albicans(A) 01/22/2025 7:50 AM EST [facility] Comment:This isolate has bee n identified using the FDA Approved [employer] [place] System Urine Urine specimen obtained by clean catch procedure / Unknown Non-blood Collection / Unknown 01/20/2025 11:02 AM EST 01/20/2025 11:06 AM EST us Cleve Deleon MD LAB MICROBIOLOGY - GENERAL OR DERABLES Final Result Performing Organization Address [facility]/ZIP Co de Phone Number [facility] [address] [place] [address] * (ABNORMAL) Creatine Kinase (CK), Total (01/20/2025 5:02 AM EST) Creatine Kinase, Plasma 290(H) 37 - 168 U/L 01/20/2025 5:37 AM EST [facility] Blood Venous blood specimen / Unknown Venipuncture / Unknown 01/20/2025 5:02 AM EST 01/20/2025 5:07 AM EST us Cleve Deleon MD LAB BLOOD ORDERABLES Final Re sult Performing Organization Address City/[facility]/ZIP Co de Phone Number [facility] [address] [place] [address] * (ABNORMAL) Basic metabolic panel (01/20/2025 5:02 AM EST) Only the most recent of3 resultswithin the time period is included. Glucose, Plasma 151(H) 74 - 99 mg/dL 01/20/2025 5:37 AM EST [facility] BUN, Plasma 12 8 - 23 mg/dL 01/20/2025 5:37 AM EST [facility] Creatinine, Plasma 0.79 0.60 - 1.10 mg/dL 01/20/2025 5:37 AM EST [facility] BUN/Creatinine Ratio 15 01/20/2025 5:37 AM EST [facility] Sodium, Plasma 139 136 - 145 mmol/L 01/20/2025 5:37 AM EST [facility] Potassium, Plasma 3.6 3.6 - 4.9 mmol/L 01/20/2025 5:37 AM EST [facility] Chloride, Plasma 102 97 - 107 mmol/L 01/20/2025 5:37 AM EST [facility] CO2, Plasma 28 22 - 29 mmol/L 01/20/2025 5:37 AM EST [facility] Anion Gap 9 6 - 16 mmol/L 01/20/2025 5:37 AM EST [facility] Total Calcium, Plasma 8.2(L) 8.9 - 10.2 mg/dL 01/20/2025 5:37 AM EST [facility] eGFRcr 78.6 mL/min/1.7 3m*2 01/20/2025 5:37 AM EST [facility] Comment:Reported eGFRcr in m L/min/1.73m2 is based the CKD-EPI 2020 equation that does not use a race coefficient. Blood Venous blood specimen / Unknown Venipuncture / Unknown 01/20/2025 5:02 AM EST 01/20/2025 5:07 AM EST Cleve Deleon MD LAB BLOOD ORDERABLES Final Re sult Performing Organization Address City/[facility]/ZIP Co de Phone Number [facility] [address] [place] [address] * Phosphorus (01/19/2025 6:05 AM EST) Only the most recent of4 resultswithin the time period is included. Phosphorus, Plasma 3.0 2.5 - 4.5 mg/dL 01/19/2025 6:40 AM EST [facility] Blood Venous blood specimen / Unknown Venipuncture / Unknown 01/19/2025 6:05 AM EST 01/19/2025 6:15 AM EST us Cleve Deleon MD LAB BLOOD ORDERABLES Final Re sult [facility] [address] [place] [address] * Magnesium (01/19/2025 6:05 AM EST) Only the most recent of4 resultswithin the time period is included. Magnesium, Plasma 2.1 1.9 - 2.4 mg/dL 01/19/2025 6:40 AM EST [facility] Blood Venous blood specimen / Unknown Venipuncture / Unknown 01/19/2025 6:05 AM EST 01/19/2025 6:15 AM EST us Cleve Deleon MD LAB BLOOD ORDERABLES Final Re sult Performing Organization Address [facility] [place] [address] * Blood Culture (Aerobic/Anaerobet Set) (01/18/2025 1:23 PM EST) Only the most recent of2 resultswithin the time period is included. Culture No growth at day 5 SADA 01/23/2025 2:02 PM EST [facility] Blood Venous blood specimen / Unknown Venipuncture / Unknown 01/18/2025 1:23 PM EST 01/18/2025 1:34 PM EST us Cleve Deleon MD LAB MICROBIOLOGY - GENERAL OR DERABLES Final Result Performing Organization Address [facility] [place] [address] * PERIPHERAL IV (SMARTFORM LINK) (01/18/2025 12:54 [...] Antibody Negative Negative 01/18/2025 5:53 AM EST [facility] Blood Blood sample taken from central line / Unknown Venipuncture / Unknown 01/18/2025 4:56 AM EST 01/18/2025 5:11 AM EST us Cleve Deleon MD LAB BLOOD ORDERABLES Final Re sult Performing Organization Address [facility] [place] [address] * Hepatitis B Surface Antibody, Quantitative (01/17/2025 7:50 PM EST) Pathologist [facility] Hepatitis B Surface Antibody, Quantitative <8.00 NonReactiv e: <8, Grayzone: 8 - <12, Reactive: >= 12 mIU/mL 01/17/2025 10:06 PM EST [facility] Comment: Nonreactive. Individual is considered not immune to HBV infection. Blood Arterial blood specimen / Unknown (Central Line) Existing Catheter / Unknown 01/17/2025 7:50 PM EST 01/17/2025 7:54 PM EST us Cleve Deleon MD LAB BLOOD ORDERABLES Final Re sult Performing Organization Address City/[facility] Co de Phone Number [facility] [address] [place] [address] * Hepatitis B Core Antibody IgM (01/17/2025 7:50 PM EST) Hepatitis B Core Antibody IgM Negative Negative 01/17/2025 10:06 PM EST [facility] Blood Arterial blood specimen / Unknown (Central Line) Existing Catheter / Unknown 01/17/2025 7:50 PM EST 01/17/2025 7:54 PM EST us Tehreem K Ramay MD LAB BLOOD ORDERABLES Final Re sult Performing Organization Address City/[facility]/[place] [address] * Hepatitis B Core Total Antibody IgG,IgM (01/17/2025 7:50 PM EST) Hepatitis B Core Total Antibody IgG,IgM Negative Negative 01/17/2025 10:06 PM EST [facility] Blood Arterial blood specimen / Unknown (Central Line) Existing Catheter / Unknown 01/17/2025 7:50 PM EST 01/17/2025 7:54 PM EST us Cleve Deleon MD LAB BLOOD ORDERABLES Final Re sult Performing Organization Address City/[facility]/[place] [address] * Hepatitis B Surface Antigen (01/17/2025 7:50 PM EST) Pathologist [facility] Hepatitis B Surf Antigen Negative Negative 01/17/2025 10:06 PM EST [facility] Blood Arterial blood specimen / Unknown (Central Line) Existing Catheter / Unknown 01/17/2025 7:50 PM EST 01/17/2025 7:54 PM EST us Cleve Deleon MD LAB BLOOD ORDERABLES Final Re sult Performing Organization Address City/[facility]/[place] [address] * ECHO, ADULT TRANSTHORACIC COMPLETE (01/17/2025 11:55 AM EST) Pathologist [facility] BSA 2.07 m2 PINEDA ISCV LVIDd 45 [...] is no recent study available for direct [id number]-[id number] comparison. Left Ventricle The left ventricle is [...] is no recent study available for direct jfbo-rx-[id number] comparison. us Cleve Deleon MD CV ECHO [...] Coyne MD on 01/16/2025 8:04 PM Naina Iris Dubois SCIENTIFIC SYSTEMS ANALYST IMG US PROCEDURES Final Result * FL [...] Culture Heavy Growth 01/19/2025 5:17 PM EST [facility] Culture 4+ Biotype 1 Methicillin-Resis tant Staphylococcus aureus(AA) 01/19/2025 5:17 PM EST [facility] Comment: For susceptibility results refer to: - [id number] Edited result: Previously reported as Staphylococcus aureus on 01/17/2025 at 1327 EST. Staphylococcus aureus has been updated to reportable. Culture 2+ Biotype 2 Methicillin-Resis tant Staphylococcus aureus(AA) 01/19/2025 5:17 PM EST [facility] Comment: For susceptibility results refer to: - [id number] Edited result: Previously reported as Staphylococcus aureus on 01/17/2025 at 1327 EST. Staphylococcus aureus has been updated to reportable. Foreign Body Lower back structure / Unknown 01/16/2025 4:14 PM EST 01/16/2025 5:10 PM EST Comment:Pre-op diagnosis: MRSA bacteremia [R78.81, B95.62] Fransisco Gaston MD LAB MICROBIOLOGY - G ENERAL ORDERABLES Final Result Performing Organization Address City/[facility]/ZIP Co de Phone Number [facility] [address] [place] [address] * Anaerobic Culture (01/16/2025 4:14 PM EST) Only the most recent of2 resultswithin the time period is included. Culture No anaerobes isolated 01/20/2025 2:57 PM EST [facility] Foreign Body Lower back structure / Unknown 01/16/2025 4:14 PM EST 01/16/2025 5:10 PM EST Comment:Pre-op diagnosis: MRSA bacteremia [R78.81, B95.62] Fransisco Gaston MD LAB MICROBIOLOGY - G ENERAL ORDERABLES Final Result Performing Organization Address [facility]/ZIP Co de Phone Number [facility] [address] [place] [address] * (ABNORMAL) Abscess Culture and Gram Stain (01/16/2025 4:05 PM EST) Culture Light Growth 01/19/2025 5:17 PM EST [facility] Culture 1+ Biotype 1 Methicillin-Resista nt Staphylococcus aureus(AA) 01/19/2025 5:17 PM EST [facility] Comment: The organism value for this result has been updated. These results have been appended to the previously preliminary verified report. Edited result: Previously reported as Staphylococcus aureus on 01/18/2025 at 1547 EST. Staphylococcus aureus has been updated to reportable. Culture 1+ Biotype 2 Methicillin-Resista nt Staphylococcus aureus(AA) 01/19/2025 5:17 PM EST [facility] Comment: The organism value for this result has been updated. These results have been appended to the previously preliminary verified report. Edited result: Previously reported as Staphylococcus aureus on 01/18/2025 at 1547 EST. Staphylococcus aureus has been updated to reportable. Gram Stain Result Rare Gram positive cocci in pairs and chains(A) 01/19/2025 5:17 PM EST [facility] Gram Stain Result Numerous Polymorphonuclear leukocytes(A) 01/19/2025 5:17 PM EST [facility] Abscess Lower back structure / Unknown [...] MICROBIOLOGY - G ENERAL ORDERABLES Final Result [facility] [address] [place] [address] * Fungal Culture, Routine (01/16/2025 4:05 PM EST) Culture No Fungal Growth at 1 Week 01/24/2025 6:48 AM EST [facility] Abscess Topography unknown / Unknown 01/16/2025 4:05 PM EST 01/16/2025 5:10 PM EST us Cleve Deleon MD LAB MICROBIOLOGY - GENERAL OR DERABLES Final Result [facility] [address] [place] [address] * Peripheral IV (01/16/2025 3:45 PM EST) Narrative Nani Nixon CRNA, DNP - 01/16/2025 3:45 PM EST Nani Nixon CRNA, DNP 01/16/2025 4:59 PM Peripheral IV Date/Time: 01/16/2025 3:45 PM Placement Needle size: 18 G Location: hand Local anesthetic: none Site prep: alcohol Technique: anatomical landmarks Attempts: 1 us Diane Wong MD ANESTHESIA ORDERABLES Final R esult * OH AN ELECTIVE ENDOTRACHEAL AIRWAY, PB ANESTHESIA PLACEHOLDER (01/16/2025 3:32 PM EST) Narrative Nani Nixon CRNA, DNP - 01/16/2025 3:32 PM EST Nani Nixon CRNA, DNP 01/16/2025 3:54 PM Airway Date/Time: 01/16/2025 3:32 PM Reason: elective Airway not difficult General Information and Staff Patient location during procedure: OR WAIST CUTTER: Nani Nixon CRNA, DNP Performed: VIN Patient [...] Additional Comments Atraumatic. No change to dentition. Diane Wong MD ANESTHESIA ORDERABLES Final R esult * (ABNORMAL) Procalcitonin (01/16/2025 12:36 AM EST) Procalcitonin, Plasma 0.09(H) <0.09 ng/mL 01/16/2025 2:12 AM EST [facility] Blood Venous blood specimen / Unknown Venipuncture / Unknown 01/16/2025 12:36 AM EST 01/16/2025 12:41 AM EST Narrative [facility] - 01/16/2025 2:12 AM EST Procalcitonin [...] predict 28 day mortality risk. Please consult [email or web address]-[email or web address].[employer] for more information. Test performed at [facility]. Naina Dubois APRN LAB BLOOD ORDERABLES Fi nal Result [facility] [address] [place] [address] * (ABNORMAL) APTT (01/16/2025 12:36 AM EST) aPTT 36(H) 25 - 35 sec LAB COAGULATION METHOD 01/16/2025 1:15 AM EST [facility] Blood Venous blood specimen / Unknown Venipuncture / Unknown 01/16/2025 12:36 AM EST 01/16/2025 12:41 AM EST Libradoh Motiei Langroudi MD LAB BLOOD ORDERABLES Final Result [facility] [address] [place] [address] * (ABNORMAL) Sedimentation Rate, Automated (01/16/2025 12:36 AM EST) Sedimentation Rate 96(H) <30 mm/hr 2024 12:58 AM EST [facility] Blood Venous blood specimen / Unknown Venipuncture / Unknown 01/16/2025 12:36 AM EST 01/16/2025 12:41 AM EST Result Kristyn Gaston MD LAB BLOOD ORDERABLES Final Result Performing Organization Address City/[facility] Co de Phone Number [facility] [address] [place] [address] * (ABNORMAL) Prothrombin Time/INR (01/16/2025 12:36 AM EST) Prothrombin Time 15.3(H) 12.0 - 14.3 sec LAB COAGULATION METHOD 01/16/2025 1:15 AM EST [facility] INR 1.2(H) 0.9 - 1.1 LAB COAGULATION METHOD 01/16/2025 1:15 AM EST [facility] Blood Venous blood specimen / Unknown Venipuncture / Unknown 01/16/2025 12:36 AM EST 01/16/2025 12:41 AM EST Narrative [facility] - 01/16/2025 1:15 AM EST OPTIMAL INR RANGES FOR PATIENT ON ORAL ANTICOAGULANT THERAPY Prevention of venous thromboembolism INR 2.0 to 3.0 In patients with heart disease: Atrial fibrillation INR 2.0 to 3.0 Valvular heart disease INR 2.0 to 3.0 Tissue heart valves INR 2.0 to 3.0 Mechanical prosthetic valves INR 2.5 to 3.5 Prevention of recurrent MA INR 2.5 to 3.5 Result Kristyn Gaston MD LAB BLOOD ORDERABLES Final Result [facility] [address] [place] [address] * Type and Screen (01/16/2025 12:36 AM [...] TEST ORDERABLES Final Result Performing Organization Address City/[facility]/ZIP Co de Phone Number BLOOD BANK [address] [place] [address], * (ABNORMAL) C-reactive protein (01/16/2025 12:36 AM EST) CRP, Plasma 108.5(H) <=8.0 mg/L 01/16/2025 1:14 AM EST [facility] Blood Venous blood specimen / Unknown Venipuncture / Unknown 01/16/2025 12:36 AM EST 01/16/2025 12:41 AM EST Narrative [facility] - 01/16/2025 1:14 AM EST This CRP test is appropriate for assessment of infection, systemic inflammation and/or tissue injury. To assess cardiovascular disease risk order high sensitivity CRP (CRPH). Fransisco Gaston MD LAB BLOOD ORDERABLES Final Result [facility] [address] [place] [address] * (ABNORMAL) Hemoglobin A1c (01/16/2025 12:36 AM EST) Hemoglobin A1c 7.8(H) <5.7 % 01/16/2025 10:21 AM EST [facility] Blood Venous blood specimen / Unknown Venipuncture / Unknown 01/16/2025 12:36 AM EST 01/16/2025 12:41 AM EST Narrative [facility] - 01/16/2025 10:21 AM EST HA1C Interpretive Data: Diagnosis of Diabetes: Diabetic > or = 6.5% Pre-diabetic 5.7 to 6.4% Non-diabetic < or = 5.6% Glycemic Targets for Type I and Type II Diabetics: Non- Adults <7.0% Adults <6.0% Children and Adolescents <7.5% Source: [place] [employer]. Standards of medical care in diabetes,2017. Diabetes Care.2017:40 (suppl 1):S1-S135. Naina Dubois SCIENTIFIC SYSTEMS ANALYST LAB BLOOD ORDERABLES Fi nal Result [facility] [address] [place] [address] * XR OUTSIDE IMAGES (01/14/2025) Only the [...] Last Indicated MRSA 01/16/2025 01/16/2025 Insurance MEDICARE [facility] Advance Directives * Full Code (Latest Code Status on File) Date Activated Date Inactivated Comments 01/16/2025 1:07 AM 01/23/2025 3:13 PM Question Answer Comments I have reviewed the capacity from the link above and, if needed, have updated to appropriate status: Yes Care Teams Bottom Cementer Relationship Specialty [place] [id number] [facility] - General 06/21/20
--- OUTSIDE RECORDS SUMMARY | 2025-02-05 08:29 | XMS_ITS | Encounter Summary ---
Author Organization [facility] Address [address] [place] [address] Care Team Providers Care Consumer Credit Counselor Name Role Phone Chase Gunn MD Primary Care Provider [phone] Encounter Details Date Type Department Care Team [...] in a longterm (including now)? No 01/16/2025 [facility] Utilities Answer Date Recorded In the [...] Description 02/14/2025 1:00 PM EST Office Visit [facility] [address] [place] [address] Asher Sinha MD [address] [facility] [address] [place] [address] 03/27/2025 8:30 AM EST Consult [place] [facility] [address] [place] [address] Fransisco Farley MD [address] [place] [address] documented as of this encounter Visit Diagnoses Not on filedocumented in this encounter Additional Health Concerns Assessment Noted Time A Body Mass Index follow-up plan has been documented for the patient 01/23/2025 12:18 PM EST documented as of this encounter Care Teams Consumer Credit Counselor Relationship Specialty [place] [id number] PCP - General 06/21/20 documented as of this encounter
--- OUTSIDE RECORDS SUMMARY | 2025-02-05 08:29 | XMS_ITS | Encounter Summary ---
Author Organization [facility] Address [address] [place] [address] Care Team Providers Care Jig Fitter Name Role Phone Chase Gunn MD Primary Care Provider [phone] Encounter Details Date Type Department Care Team [...] any time in the past 12 m [facility], were you homeless or living in a senior care (including now)? No 01/16/2025 [facility] Utilities Answer Date Recorded In the [...] Description 02/14/2025 1:00 PM EST Office Visit [facility] [address] [place] [address] Asher Sinha MD [address] [facility] [address] [place] [address] 03/27/2025 8:30 AM EST Consult [place] [facility] [address] [place] [address] Fransisco Farley MD [address] [place] [address] documented as of this encounter Visit Diagnoses Not on filedocumented in this encounter Additional Health Concerns Infection Onset Date Last Indicated Resolved Time MRSA 01/16/2025 01/16/2025 Assessment Noted Time A Body Mass Index follow-up plan has been documented for the patient 01/23/2025 12:18 PM EST documented as of this encounter Care Teams Jig Fitter Relationship Specialty Start Date End Date Chase Gunn MD [id number] PCP - General 06/21/20 documented as of this encounter
--- OUTSIDE RECORDS SUMMARY | 2025-02-05 08:29 | XMS_ITS | Encounter Summary ---
Author Organization Healthcare Address [address] [place] [address] Care Team Providers Care Insurance Territory Manager Name Role Phone Chase Gunn MD Primary Care Provider [phone] Encounter Details Date Type Department Care Team (Late st Contact Info) Description 01/22/2025 Clinical Support [facility] [address] [place] [address] Madelaine Guevara, PharmD [address] [place], [place] [id number] Social History Tobacco Use Types Packs/Day Years [...] time in the past 12 m [facility], were you homeless or living in a custodial (including now)? No 01/16/2025 [facility] Utilities Answer Date Recorded In the [...] Description 02/14/2025 1:00 PM EST Office Visit [facility] [address] [place] [address] Asher Sinha MD [address] [facility] [address] [place] [address] 03/27/2025 8:30 AM EST Consult [place] [facility] [address] [place] [phone] Fransisco Farley MD [address] [facility] [address] [place] [address] documented as of this encounter Visit Diagnoses Not on filedocumented in this encounter Additional Health Concerns Infection Onset Date Last Indicated Resolved Time MRSA 01/16/2025 01/16/2025 Assessment Noted Time A Body Mass Index follow-up plan has been documented for the patient 01/22/2025 8:36 AM EST documented as of this encounter Care Teams Insurance Territory Manager Relationship Specialty [place] [id number] PCP - General 06/21/20 documented as of this encounter
--- OUTSIDE RECORDS SUMMARY | 2025-02-05 08:30 | XMS_ITS | Encounter Summary ---
Author Organization Healthcare Address [address] [place] [address] Care Team Providers Care Order Planner Name Role Phone Chase Gunn MD Primary Care Provider [phone] Encounter Details Date Type Department Care Team (Late st Contact Info) Description 01/24/2025 Clinical Support [facility] [address] [place] [address] Madelaine Guevara, PharmD [address] [place], [place] [id number] Social History Tobacco Use Types Packs/Day Years [...] time in the past 12 m [facility], were you homeless or living in a half-way (including now)? No 01/16/2025 [facility] Utilities Answer Date Recorded In the [...] Description 02/14/2025 1:00 PM EST Office Visit [facility] [address] [place] [address] Asher Sinha MD [address] [facility] [address] [place] [address] 03/27/2025 8:30 AM EST Consult [place] [facility] [address] [place] [address] Fransisco Farley MD [address] [place] [address] documented as of this encounter Visit Diagnoses Not on filedocumented in this encounter Additional Health Concerns Infection Onset Date Last Indicated Resolved Time MRSA 01/16/2025 01/16/2025 Assessment Noted Time A Body Mass Index follow-up plan has been documented for the patient 01/24/2025 8:12 AM EST documented as of this encounter Care Teams Order Planner Relationship Specialty [place] [id number] PCP - General 06/21/20 documented as of this encounter
--- OUTSIDE RECORDS SUMMARY | 2025-02-05 08:31 | XMS_ITS | Encounter Summary ---
Author Organization Healthcare Address [address] [place] [address] Care Team Providers Care Informatics Pharmacist Name Role Phone Chase Gunn MD Primary Care Provider [phone] Encounter Details Date Type Department Care Team (Late st Contact Info) Description 01/31/2025 Results Follow-Up [address] [place] [address] Asher Sinha MD [address] [facility] [address] [place] [address] Social History Tobacco Use Types Packs/Day Years [...] in a detention (including now)? No 01/16/2025 [facility] Utilities Answer Date Recorded In the past 12 months has th e [employer], gas, oil, or water company threatened to shut off services in your home? No 01/16/2025 Comments Unknown Sex and Gender Information Value Date Recorded Sex Assigned at Not on file Legal Sex Female 6:06 PM EDT Gender Identity Not on file Sexual Orientation Not on file documented as of this encounter Miscellaneous Notes * Result Encounter Note - Asher Sinha MD - 01/31/2025 8:45 AM EST Discussed with OPAT team. Called facility - they report they are managing the vancomycin. Asked forrepeat Cr and vancomycin levels - they reported they cannot do until Wednesday. Will continue to coordinate with OPAT team. documented in this encounter Plan of Treatment Upcoming Encounters Date Type Department Care Team (Late st Contact Info) Description 02/14/2025 1:00 PM EST Office Visit [facility] [address] [facility] [place] [address] Asher Sinha MD [address] [facility] [address] [place] [address] 03/27/2025 8:30 AM EST Consult [place] [facility] [address] [place] [address] Fransisco Farley MD [address] [place] [address] documented as of this encounter [...] documented as of this encounter Care Teams Informatics Pharmacist Relationship Specialty [place] [id number] PCP - General 06/21/20 documented as of this encounter
--- OUTSIDE RECORDS SUMMARY | 2025-02-05 08:31 | XMS_ITS | Encounter Summary ---
Author Organization Healthcare Address [address] [place] [address] Care Team Providers Care Medical Staff Services Coordinator Name Role Phone Chase Gunn MD Primary Care Provider [phone] Encounter Details Date Type Department Care Team ([facility] st Contact Info) Description 01/14/2025 Orders Only External Location [address] [place] [address] Provider, External Social History Tobacco Use Types [...] in the past 12 m [facility], were you homeless or living in a detention (including now)? No 01/16/2025 [facility] Utilities Answer Date Recorded In the [...] Description 02/14/2025 1:00 PM EST Office Visit [facility] [address] [place] [address] Asher Sinha MD [address] [facility] [address] [place] [address] 03/27/2025 8:30 AM EST Consult [place] [facility] [address] [place] [address] Fransisco Farley MD [address] [place] [address] documented as of this encounter Procedures Procedure Name Priority Date/Time Associated Diagnosis Comments XR OUTSIDE IMAGES 01/14/2025 documented in this encounter Results * XR OUTSIDE IMAGES (01/14/2025) Anatomical Region Laterality Modality Radiographic Adriana ging 01/14/2025 us External Provider IMG XR PROCEDURES Final Result documented in this encounter Visit Diagnoses Not on filedocumented in this encounter Care Teams Medical Staff Services Coordinator Relationship Specialty Start Date End Date Chase Gunn MD [id number] PCP - General 06/21/20 documented as of this encounter
--- OUTSIDE RECORDS SUMMARY | 2025-02-05 08:31 | XMS_ITS | Encounter Summary ---
Author Organization Healthcare Address [address] [place] [address] Care Team Providers Care Project Engineer Name Role Phone Chase Gunn MD Primary Care Provider [phone] Encounter Details Date Type Department Care Team ([facility] st Contact Info) Description 01/10/2025 Orders Only External Location [address] [place] [address] Provider, External Social History Tobacco Use Types [...] time in the past 12 m [facility], were you homeless or living in a [facility] (including now)? No 01/16/2025 [facility] Utilities Answer Date Recorded In [...] Description 02/14/2025 1:00 PM EST Office Visit [facility] [address] [place] [address] Asher Sinha MD 31[address] [facility] [address] [place] [address] 03/27/2025 8:30 AM EST Consult [place] [facility] [address], [address] [place] [address] Fransisco Farley MD [address] [place] [address] documented as of this encounter Procedures Procedure Name Priority Date/Time Associated Diagnosis Comments CT NEURO OUTSIDE IMAGES 01/10/2025 documented in this encounter Results * CT NEURO OUTSIDE IMAGES (01/10/2025) Anatomical Region Laterality Modality Computed Tomogra phy 01/10/[address] PROCEDURES Final Result documented in this encounter Visit Diagnoses Not on filedocumented in this encounter Care Teams Project Engineer Relationship Specialty [place] [id number] PCP - General 06/21/20 documented as of this encounter
--- OUTSIDE RECORDS SUMMARY | 2025-02-05 08:31 | XMS_ITS | Patient Health Record ---
Author Organization [facility] Address [address] [id number] Care Team Providers Care Algorithm Developer Name Role Phone Chase Gunn Primary Care Provider Allergies Allergen (clinical drug ingredient) Drug/Non Drug Allergy documented on EMR Reaction Allergy Type Onset Date Status promethazine Promethazine sore mouth Drug Allergy Active Results Component Value Reference Range Notes P-Comprehensive Metabolic Pa torsten (CMP) Reviewed date:05/24/2024 11:29:48 AM Interpretation:glu 132, BUN 25, creat 1.24, eGFR 46 Performing Lab: Notes/Report: Test performed by [facility], [address] , [address], [place] [address] Deshawn Meade MD, Machinist [employer] Shift CLIA: [id number] Sodium 141 135-145 mmol/L Potassium 5.3 3.5-5.3 [...] Interpretation:7.8 Performing Lab: Notes/Report: Test performed by [facility] [address] [place] [address] Jose Vargas, [place] [address] Deshawn Meade MD, Machinist [employer] CLIA: [id number] Hemoglobin A1C 7.8 <5.7 % The following HbA1c ranges recommended by the [place] [employer] (ADA) may be used as an aid in the diagnosis of diabetes mellitus. HbA1c Suggested Diagnosis >=6.5% Diabetic 5.7% - 6.4% Pre-Diabetic <5.7% Non-Diabetic P-Lipid Panel Reviewed date:05/24/2024 11:29:48 AM Interpretation: Normal Performing Lab: Notes/Report: Test performed by [facility] [address] [place] [address] Jose Vargas, [place] [address] Deshawn Meade MD, Machinist [employer] CLIA: [id number] Cholesterol 144 <200 mg/dL Triglycerides 111 <150 [...] Normal Performing Lab: Notes/Report: Test performed by [facility] [address] [place] [address] , [place] [address] Deshawn Meade MD, Machinist [employer] Shift CLIA: [id number] TSH reflex to FT4 3.33 0.43-5.25 mU/L P-Microalbumin/Creatinine, R andom Urine Sample Reviewed date:05/24/2024 11:29:48 AM Interpretation: Normal Performing Lab: Notes/Report: Test performed by [facility] [address] [place] [address] , Jose C, [place] [address] Deshawn Meade MD, Machinist [employer] CLIA: [id number] Albumin/Creatinine Ratio, Urine 4 0-30 ug/mg Microalbumin, Urine, Random 0.3 Creatinine, Urine 76.8 Estimated Average Glucose Reviewed date:05/24/2024 11:29:48 AM Interpretation:177 Performing Lab: Notes/Report: Test performed by [facility], [facility] [address] [place] [address] , [address], [place] [address] Deshawn Meade MD, Machinist 2[employer] Shift CLIA: [id number] Estimated Average Glucose (eAG) 177 Estimated Average [...] 6.5 % CBC Fingerstick (in house) Reviewed date:04/03/2024 01:35:43 [...] 02:00:36 PM Interpretation:Abnormal Performing Lab: Notes/Report: Abnormal Bone density Reviewed date:11/27/2024 03:38:01 PM Interpretation:Normal, Improved Performing Lab: Notes/Report: Normal, Improved TEN-Upper Respiratory PCR Reviewed date:02/25/2024 12:38:07 PM Interpretation:Negative Performing Lab: Notes/Report: Negative CBC Fingerstick (in house) Reviewed date:02/23/2024 11:39:15 [...] - 38 plat 210 100 - 400 CBC Fingerstick (in house) Reviewed date:07/12/2024 01:11:12 [...] - 38 plat 215 100 - 400 H-DIARRHEA PANEL Reviewed date:01/11/2025 09:15:50 AM Interpretation: Performing Lab: Notes/Report: CAMPYLOBACTER Not Detected NotDetected CLOSTR DIFFICIL Detected NotDetected NOTIFICATION RESULT Results called to: Rush REESE on 01/10/25 at 2249 By Shankar Gibbons [place] PLESIOMONAS Not Detected NotDetected SALMONELLA, PCR Not [...] Performing Lab: Notes/Report: VANCT 10.2 5.0-10.0 ug/mL Reason For Referral Diagnosis 1 Nausea (R11.0) Diagnosis 2 Gastroesophageal ref lux disease without esophagitis (K21.9) Diagnosis 3 Pharyngeal dysphagia (R13.13) Referral Organization [facility] Referring Provider First Name Chase Referring Provider Last Name Luis A Referring Provider [facility] ctfabby Referred Provider DAYAN LYN Referred Provider Specialty Gastroentero logy General Notes Letitia Osei 10:57:47 AM > faxed to Dr. Lyn office, Letitia Osei 03/17/2024 2:01:41 PM > 04/11/2024 at 09:00am Referral Priority Routine Diagnosis 1 Other dysphagia (R13 .19) [facility] Referring Provider First Name Chase Referring Provider Last Name Luis A Referring Provider [facility] ctice Referred Provider ENT, . Referred Provider Specialty ENT General Notes Letitia Osei 2024 02:41:20 PM > faxed to [facility] ENT, Letitia Osei 01/05/2025 09:38:55 AM > 01/29/2025 at 02:40pm [...] W/U Status Risk Notes Problem Essential hypertension (24658816) Essential hypertension (I10) Active confirmed Problem Mixed anxiety and depressive disorder (399518254) Depression with anxiety (F41.8) Active confirmed Problem Body mass index 30+ - obesity (188546287) BMI 30.0-30.9,adult (Z68.30) Active confirmed Problem Overactive urinary bladder (disorder) (971156654) OAB (overactive bladder) (N32.81) Active confirmed Problem Mixed incontinence (029100188) Mixed incontinence (N39.46) Active confirmed Problem Chronic pain (62870010) Other chronic pain (G89.29) Active confirmed Problem Type II diabetes mellitus without complication (980347823) Type 2 diabetes mellitus without complication (E11.9) Active confirmed Problem Constipation (83238142) Constipation, unspecified constipation type (K59.00) Active confirmed Problem Gastroesophageal reflux disease without esophagitis (009691489) Gastroesophageal reflux disease without esophagitis (K21.9) Active confirmed Problem Low back pain (951752290) Bilateral low back pain without sciatica (M54.5) Active confirmed Problem 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) Active confirmed Problem Subacute vaginitis (49418921370841120) Subacute vaginitis (N76.1) Active confirmed Problem Soreness of tongue (96023038) Soreness of tongue (K14.6) Active confirmed Problem Type II diabetes mellitus without complication (281124895) Type 2 diabetes mellitus without complication, without long-term current use of insulin (E11.9) Active confirmed Problem Pharyngeal dysphagia (09994059901976) Pharyngeal dysphagia (R13.13) Active confirmed Problem Chronic anemia (268462484) Chronic anemia (D64.9) Active confirmed Problem Pure hypercholesterolemia (268050175) Pure hypercholesterolemia (E78.00) Active confirmed Problem Glossodynia (90734915) Tongue pain (K14.6) Active confirmed Problem Thyromegaly (3461293) Thyromegaly (E01.0) Active confirmed Problem Arthritis of right knee (9233846086789460) Arthritis of right knee (M17.11) Active confirmed Problem Allergic rhinitis (48578694) Allergic rhinitis, unspecified seasonality, unspecified trigger (J30.9) Active confirmed Problem Type II diabetes mellitus without complication (650494224) Type 2 diabetes mellitus without complication, unspecified whether [facility] insulin use (E11.9) Active confirmed Problem Chronic kidney disease stage 3B (disorder) (636771630) Stage 3b chronic kidney disease (N18.32) Active confirmed Problem Chronic kidney disease stage 3A (448051902) Stage 3a chronic kidney disease (N18.31) Active confirmed Problem Chronic kidney disease stage 3B (disorder) (780966353) Stage 3b chronic kidney disease (CKD) (N18.32) Active confirmed Problem Taste sense altered (592684719) Taste sense altered (R43.2) Active confirmed Problem Urinary incontinence (595670103) Urinary incontinence in female (R32) Active confirmed Vital Signs Heart Rate 80 /min 11/22/2024 Blood pressure diastolic 68 mm Hg 11/22/2024 Height 66.25 in 11/22/2024 Blood pressure systolic 120 mm Hg 11/22/2024 Weight 192.8 lbs 11/22/2024 BMI 30.88 kg/m2 11/22/2024 Encounters Encounter Location Date Provider Diagnosis [facility] [address] [facility] [address] [place], [place] [id number] 02/23/2024 Chase Watts Bronchitis J40 and N ausea R11.0 [facility] [address] [facility] [address] [place], [place] [id number] 03/14/2024 Chase Watts Nausea R11.0 ; Gastroesophageal reflux disease without esophagitis K21.9 ; Pharyngeal dysphagia R13.13 and Nausea and vomiting, unspecified vomiting type R11.2 [facility] [address] [facility] [address] [place], [place] [id number] 04/03/2024 Chase Watts Persistent cough R05 .3 [facility] [address] [place] [id number] 04/21/2024 Chase Watts Tongue pain K14.6 [facility] [address] [place] [id number] 05/03/2024 Chase Watts Acute UTI N39.0 ; Dy suria R30.0 ; Chronic cough R05.3 and Gastroesophageal reflux disease without esophagitis K21.9 [facility] [address] [place] [id number] 05/23/2024 Chase Watts Type 2 diabetes sky itus without complication E11.9 ; Essential hypertension I10 ; Pure hypercholesterolemia E78.00 ; Stage 3a chronic kidney disease N18.31 ; Gastroesophageal reflux disease without esophagitis K21.9 ; Stage 3b chronic kidney disease N18.32 ; Chronic anemia D64.9 ; BMI 28.0-28.9,adult Z68.28 and Lumbar back pain M54.50 [facility] [address] [place] [id number] 06/21/2024 Chase Watts Pain in right knee M 25.561 ; Pre-op exam Z01.818 ; Arthritis of right knee M17.11 ; Type 2 diabetes mellitus without complication E11.9 ; Essential hypertension I10 ; Gastroesophageal reflux disease without esophagitis K21.9 ; Stage 3b chronic kidney disease N18.32 ; Chronic anemia D64.9 ; Mixed incontinence N39.46 and BMI 30.0-30.9,adult Z68.30 [facility] [address] [place] [id number] 07/11/2024 Chase Watts Persistent cough R05 .3 ; Gastroesophageal reflux disease without esophagitis K21.9 ; Essential hypertension I10 ; OAB (overactive bladder) N32.81 and BMI 30.0-30.9,adult Z68.30 [facility] [address] [place], [place] [id number] 09/07/2024 Chase Watts Herpes zoster withou t complication B02.9 and BMI 29.0-29.9,adult Z68.29 [facility] [address] [place], [place] [id number] 11/22/2024 Chase Watts Type 2 diabetes sky itus without complication E11.9 ; Essential hypertension I10 and Encounter for immunization Z23 [facility] [address] [place], [place] [id number] 12/04/2024 Chase Watts Encounter for immuni zation Z23 [facility] [address] [place], [place] [id number] 02/18/2024 Chase Watts Depression with anxi ety F41.8 [facility] [address] [place] [id number] 02/18/2024 Chase Watts [facility] [address] [place] [id number] 03/02/2024 Chase Watts Bronchitis J40 [facility] [address] [place] [id number] 03/13/2024 Chase Watts [facility] [address] [place] [id number] 03/31/2024 Chase Watts Bronchitis J40 [facility] [address] [place] [id number] 04/04/2024 Chase Watts [facility] [address] [place] [id number] 05/12/2024 Chase Watts [facility] [address] [place] [id number] 05/15/2024 Chase Watts Gastroesophageal ref lux disease without esophagitis K21.9 [facility] [address] [place] [id number] 05/19/2024 Chase Watts Depression with anxi ety F41.8 [facility] [address] [place] [id number] 05/24/2024 Chase Watts [facility] [address] [place] [id number] 06/02/2024 Chase Watts [facility] [address] [place] [id number] 07/11/2024 Chase Watts [facility] [address] [place] [id number] 07/24/2024 Chase Watts Screening for breast cancer Z12.39 [facility] [address] [place] [id number] 07/25/2024 Chase Watts [facility] [address] [place] [id number] 08/16/2024 Chase Watts Depression with anxi ety F41.8 [facility] [address] [place] [id number] 09/18/2024 Chase Watts Encounter for screen ing for osteoporosis Z13.820 [facility] [address] [place] [id number] 10/19/2024 Chase Watts [facility] [address] [place], [place] [id number] 11/21/2024 Chase Watts Depression with anxi ety F41.8 [facility] [address] [place] [id number] 12/27/2024 Chase Watts Other dysphagia R13. 19 [facility] [address] [place], [place] [id number] 01/08/2025 Chase Watts [facility] [address] [place], [place] [id number] 01/16/2025 Chase Watts Assessments Encounter Date Diagnosis (ICD Code) Assessment Notes Treatment Notes Treatment Clinical Notes Section Notes 02/18/2024 Depression with anxi ety (ICD-10 - [...] Date MEDICARE PART B [address] [address] [place] [address] [id number] Rosa Wray Self - patient is the insured [facility] [employer] [address] [place] [address] [phone] [id number] Rosa Wray Self - patient is the insured Medical (General) History Medical History History ICD Code Type 2 Diabetes Hypertension Hyperlipidemia Anxiety and Depression GERD Bilateral Fibercystic Breast Allergic Rhinitis 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 Virk Low Back Pain, MRI 2009 Mitral Valve Prolapse Bilateral Knee Arthritis Chronic kidney disease anemia Surgical History Surgery Date(Month/Year) Cholecystectomy Bilateral Arterial Biopsy - Head - negat kaitlin 04/11/2020 Brain Anuerysm Removal - [facility] - Cory 05/03/2020 EGD - 2021 Bladder stimulator 2018 colonoscopy - 2015, 2021, 2023 Total Right Knee replacement - Dr. West July 2024 Hospitalization History Reason Date(Month/Year) Brain Anuerysm 05/03-
--- OUTSIDE RECORDS SUMMARY | 2025-02-05 08:31 | XMS_ITS | Encounter Summary ---
Author Organization Healthcare Address [address] [place] [address] Care Team Providers Care Brim Stiffener Name Role Phone Chase Gunn MD Primary Care Provider [phone] Encounter Details Date Type Department Care Team ([facility] st Contact Info) Description 01/10/2025 Orders Only External Location [address] [place] [address] Provider, External Social History Tobacco Use Types [...] in a penitentiary (including now)? No 01/16/2025 [facility] Utilities Answer Date Recorded In the past [...] Description 02/14/2025 1:00 PM EST Office Visit [facility] [address] [place] [address] Asher Sinha MD [address] [facility] [address] [place] [address] 03/27/2025 8:30 AM EST Consult [facility] [address], [address]st [place] [address] Fransisco Farley MD [address] [place] [address] documented as of this encounter Procedures Procedure Name Priority Date/Time Associated Diagnosis Comments CT THORACIC OUTSIDE IMAGES 01/10/2025 documented in this encounter Results * CT THORACIC OUTSIDE IMAGES (01/10/2025) Anatomical Region Laterality Modality Computed Tomogra phy 01/10/[address] PROCEDURES Final Result documented in this encounter Visit Diagnoses Not on filedocumented in this encounter Care Teams Brim Stiffener Relationship Specialty [place] [address] PCP - General 06/21/20 documented as of this encounter
--- OUTSIDE RECORDS SUMMARY | 2025-02-05 08:31 | XMS_ITS | Encounter Summary ---
Author Organization Healthcare Address [address] [place] [address] Care Team Providers Care Medicine Aide Name Role Phone Chase Gunn MD Primary Care Provider [phone] Encounter Details Date Type Department Care Team ([facility] st Contact Info) Description 01/13/2025 Orders Only External Location [address] [place] [address] Provider, External Social History Tobacco Use Types [...] in a [facility] (including now)? No 01/16/2025 [facility] Utilities Answer Date Recorded In the [...] Description 02/14/2025 1:00 PM EST Office Visit [facility] [address] [place] [address] Asher Sinha MD [address] [facility] [address] [place] [address] 03/27/2025 8:30 AM EST Consult [place] [facility] [address], [address] [place] [address] Fransisco Farley MD [address] [place] [address] documented as of this encounter Procedures Procedure Name Priority Date/Time Associated Diagnosis Comments CT NEURO OUTSIDE IMAGES 01/13/2025 documented in this encounter Results * CT NEURO OUTSIDE IMAGES (01/13/2025) Anatomical Region Laterality Modality Computed Tomogra phy 01/13/[address] PROCEDURES Final Result documented in this encounter Visit Diagnoses Not on filedocumented in this encounter Care Teams Medicine Aide Relationship Specialty [place] [id number] PCP - General 06/21/20 documented as of this encounter
--- OUTSIDE RECORDS SUMMARY | 2025-02-05 08:31 | XMS_ITS | Encounter Summary ---
Author Organization [facility] Address [address] [place] [address] Care Team Providers Care Energy Engineer Name Role Phone Chase Gunn MD Primary Care Provider [phone] Encounter Details Date Type Department Care Team [...] any time in the past 12 m [facility], were you homeless or living in a long-term (including now)? No 01/16/2025 [facility] Utilities Answer Date Recorded In the [...] as of this encounter Functional Status * Communicable Disease Screening Question Answer Date of Assessment Author Have you been in contact with someone who was sick? No / Unsure 01/15/2025 10:24 PM Cydney Garcia RN Do you have any of the following new or worsening symptoms? None of these 01/15/2025 10:24 PM Cydney Garcia RN * Travel Screening Question Answer Date of Assessment Author Have you traveled [place] or domestically in the last month? No 01/15/2025 10:24 PM Cydney Adkins RN documented as of this encounter Mental Status * Communicable Disease Screening Question Answer Entry Date Author Have you been in contact with someone who was sick? No / Unsure 01/15/2025 10:24 PM Cydney Garcia RN Do you have any of the following new or worsening symptoms? None of these 01/15/2025 10:24 PM Cydney Garcia RN * Travel Screening Question Answer Entry Date Author Have you traveled [place] or [place]ically in the last month? No 01/15/2025 10:24 PM Cydney Adkins RN documented in this encounter Plan of Treatment Upcoming Encounters Date Type Department Care Team (Late st Contact Info) Description 02/14/2025 1:00 PM EST Office Visit [facility] [address] [place] [address] Asher Sinha MD [address] [facility] [address] [place] [address] 03/27/2025 8:30 AM EST Consult [place] [facility] [address], [address] [place] [address] Fransisco Farley MD [address] [place] [address] documented as of this encounter Visit Diagnoses Not on filedocumented in this encounter Additional Health Concerns Assessment Noted Time A Body Mass Index follow-up plan has been documented for the patient 01/23/2025 12:18 PM EST documented as of this encounter Care Teams Energy Engineer Relationship Specialty [place] [id number] PCP - General 06/21/20 documented as of this encounter
--- OUTSIDE RECORDS SUMMARY | 2025-02-05 08:31 | XMS_ITS | Data Portability ---
Author Organization [facility] Tri[place]i RODNEY [place] CL[place] Address [address] [place] [address] Care Team Providers Care Patent Engineer Name Role Phone DARIELA LOCKETT Primary Care [...] to the recovery room in stable condition. [email or web address] Not available 12/30/2023 10:46:30 01/28/2024 01/28/2024 Switch [...] one month for reevaluation of her symptoms. Not available 01/07/2025 10:20:24 Plan of Treatment Reminders Order Date Submit Date Provider Last Modified By Organization Details Last Modified Time Details Appointments None recorded. Lab urinalysis panel, auto 2024 025 [email or web address] 14 [facility], [address], [address], [place], [address], 5 15:56:20 urinalysis panel, auto 2023 024 [email or web address] 14 [facility], [address], [address], [place], [address], 4 09:04:10 Referral None recorded. Procedures None recorded. Surgeries cystourethr oscopy, with injections for chemodenerv ation of the bladder (SURG) 2024 025 [facility], [address], [place], [address], 5 08:45:02 Imaging None recorded. Medication Orders mirabegron ER 50 mg tablet,exte nded release 24 hr 2024 025 CH[facility], [address] [place], [address], 15:58:38 trospium 20 mg tablet 2024 025 CHRIS Sams [facility], [address] [place], [address], 15:58:41 darifenacin ER 15 mg tablet,exte nded release 24 hr 2023 025 CHRIS Merinocarmina [facility], [address] [place], [address], 15:58:40 hydrocodone 7.5 mg-acetamin ophen 325 mg tablet 2023 024 CHRIS Merinocramina [facility], [address] [place], [address], 10:50:21 Patient TargetsNo targets recorded. Patient Instructions Encounter Date Encounter Id Patient Instructions Last Modified By Organization Details Last Modified Time 06/15/2024 [id number] - Begin taking trazodone as directed. - Keep track of your symptoms and urine frequency. - If there is no improvement, consider Botox as discussed. - Return for follow-up to evaluate treatment progress. - Change pads as needed and monitor for any new symptoms. - Call if you experience any urgent issues or side effects. [email or web address] Not available 06/15/2024 15:54:03 12/07/2024 [id number] - Continue takin g Gemtesa as prescribed. [...] INDIC ATED color Yellow normal Not Available [facility] [address], [place], [address], 12/30/2023 11:06:58 12/30/19 24 12/30/2023 UA WITH CULTU RE IF INDIC ATED appearance Light turbid normal Not Available [facility] [address] [place] [address], [address], 12/30/2023 11:06:58 12/30/19 24 12/30/2023 UA WITH CULTU RE IF INDIC ATED glucose 1000 mg/dL normal abnormal Not Available [facility] [address] [place] [address], [address], 12/30/2023 11:06:58 12/30/19 24 12/30/2023 UA WITH CULTU RE IF INDIC ATED bilirubin Negati ve mg/dL negati ve normal Not Available [facility] [address] [place] [address], [address], 12/30/2023 11:06:58 12/30/19 24 12/30/2023 UA WITH CULTU RE IF INDIC ATED ketone Negati ve mg/dL negati ve normal Not Available [facility] [address] [place] [address], [address], 12/30/2023 11:06:58 12/30/19 24 12/30/2023 UA WITH CULTU RE IF INDIC ATED specific gravity 1.034 1.003- 1.035 normal Not Available [facility] [address] [place] [address], [address], 12/30/2023 11:06:58 12/30/19 24 12/30/2023 UA WITH CULTU RE IF INDIC ATED blood 10 /uL negati ve abnormal Not Available [facility] [address] [place] [address], [address], 12/30/2023 11:06:58 12/30/19 24 12/30/2023 UA WITH CULTU RE IF INDIC ATED pH 5 5.0 - 8.0 normal Not Available [facility] [address] [place] [address], [address], 12/30/2023 11:06:58 12/30/19 24 12/30/2023 UA WITH CULTU RE IF INDIC ATED protein Negati ve mg/dL negati ve normal Not Available [facility] [address] [place] [address], [address], 12/30/2023 11:06:58 12/30/19 24 12/30/2023 UA WITH CULTU RE IF INDIC ATED urobilinogen Normal mg/dL normal normal Not Available [facility] [address] [place] [address], [address], 12/30/2023 11:06:58 12/30/19 24 12/30/2023 UA WITH CULTU RE IF INDIC ATED nitrite Negati ve negati ve normal Not Available [facility] [address] [place] [address], [address], 12/30/2023 11:06:58 12/30/19 24 12/30/2023 UA WITH CULTU RE IF INDIC ATED leukocyte esterase Negati ve /uL negati ve normal Not Available [facility] [address] [place] [address], [address], 12/30/2023 11:06:58 12/30/19 24 12/30/2023 UA WITH CULTU RE IF INDIC ATED WBC, urine 10-20 0-5/hp f abnormal Not Available [facility] [address] [place] [address], [address], 12/30/2023 11:06:58 12/30/19 24 12/30/2023 UA WITH CULTU RE IF INDIC ATED RBC, urine 0-2 0-2/hp f normal Not Available [facility] [address] [place] [address], [address], 12/30/2023 11:06:58 12/30/19 24 12/30/2023 UA WITH CULTU RE IF INDIC ATED squamous epi. cells 0-5 0-5/hp f normal Not Available [facility] [address] [place], [address], 12/30/2023 11:06:58 12/30/19 24 12/30/2023 UA WITH CULTU RE IF INDIC ATED bacteria 4+ /hpf none seen abnormal Not Available [facility] [address] [place] [address], [address], 12/30/2023 11:06:58 12/30/19 24 12/30/2023 UA WITH CULTU RE IF INDIC ATED reflex culture see below normal Resul ts indic ate a urina ry tract infec tion. Cultu re added . Not Available [facility] [address] [place] [address], [address], 12/30/2023 11:06:58 12/30/19 24 12/30/2023 URINE CULTU RE klebsiella pneumoniae Organi sm: Klebsi ander pneumo niae Not Available [facility] [address] [place] [address], [address], 01/03/2024 10:02:59 12/30/19 24 01/03/2024 URINE CULTU RE urine culture abnormal ISOLA TE #1 COLON Y COUNT : > 100,0 00 CFU/M L Proba ble Gram Negat kaitlin Bacil angela; Jayton tion In Progr ess. See Jayton te Resul t(s) Below Klebs iella pneum oniae Not Available [facility] [address] [place] [address], [address], 01/03/2024 10:02:59 12/30/19 24 01/03/2024 URINE CULTU RE amox/K clav'ate(C) <=8/4 ug/mL susceptib le Not Available [facility] [address] [place] [address], [address], 01/03/2024 10:02:59 12/30/19 24 01/03/2024 URINE CULTU RE cefazolin <=2 ug/mL susceptib le Not Available [facility] [address] [place] [address], [address], 01/03/2024 10:02:59 12/30/19 24 01/03/2024 URINE CULTU RE ceftazidime <=1 ug/mL susceptib le Not Available [facility] [address] [place] [address], [address], 01/03/2024 10:02:59 12/30/19 24 01/03/2024 URINE CULTU RE ceftriaxone <=1 ug/mL susceptib le Not Available [facility] [address] [place] [address], [address], 01/03/2024 10:02:59 12/30/19 24 01/03/2024 URINE CULTU RE cefuroxime <=4 ug/mL susceptib le Not Available [facility] [address] [place] [address], [address], 01/03/2024 10:02:59 12/30/19 24 01/03/2024 URINE CULTU RE ciprofloxaci n <=0.25 ug/mL susceptib le Not Available [facility] [address] [place] [address], [address], 01/03/2024 10:02:59 12/30/19 24 01/03/2024 URINE CULTU RE gentamicin <=4 ug/mL susceptib le Not Available [facility] [address] [place] [address], [address], 01/03/2024 10:02:59 12/30/19 24 01/03/2024 URINE CULTU RE imipenem <=1 ug/mL susceptib le Not Available [facility] [address] [place] [address], [address], 01/03/2024 10:02:59 12/30/19 24 01/03/2024 URINE CULTU RE levofloxacin <=0.5 ug/mL susceptib le Not Available [facility] [address] [place] [address], [address], 01/03/2024 10:02:59 12/30/19 24 01/03/2024 URINE CULTU RE nitrofuranto in <=32 ug/mL susceptib le Not Available [facility] [address] [place] [address], [address], 01/03/2024 10:02:59 12/30/19 24 01/03/2024 URINE CULTU RE piperacillin /olya <=16 ug/mL susceptib le Not Available [facility] [address] [place] [address], [address], 01/03/2024 10:02:59 12/30/19 24 01/03/2024 URINE CULTU RE tetracycline <=4 ug/mL susceptib le Not Available [facility] [address] [place] [address], [address], 01/03/2024 10:02:59 12/30/19 24 01/03/2024 URINE CULTU RE tobramycin <=2 ug/mL susceptib le Not Available [facility] [address] [place] [address], [address], 01/03/2024 10:02:59 12/30/19 24 01/03/2024 URINE CULTU RE trimeth/sulf a <=2/38 ug/mL susceptib le Not Available [facility] [address] [place] [address], [address], 01/03/2024 10:02:59 12/30/19 24 12/30/2023 urina lysis panel , auto Unknown Analyte Clean Catch Not Available [facility] Schedule [address] [place], [address], 12/30/2023 09:37:40 12/30/19 24 12/30/2023 urina lysis panel , auto Unknown Analyte Yellow Not Available [facility] Schedule [address] [place], [address], 12/30/2023 09:37:40 12/30/19 24 12/30/2023 urina lysis panel , auto Unknown Analyte Slight ly Hazy Not Available [facility] Schedule [address] [place], [address], 12/30/2023 09:37:40 12/30/19 24 12/30/2023 urina lysis panel , auto Unknown Analyte 1.015 Not Available [facility] Schedule [address] [place], [address], 12/30/2023 09:37:40 12/30/19 24 12/30/2023 urina lysis panel , auto Unknown Analyte 1.003- 1.035 Not Available [facility] Schedule [address] [place] [address], [address], 12/30/2023 09:37:40 12/30/19 24 12/30/2023 urina lysis panel , auto Unknown Analyte 5.0 Not Available [facility] Schedule [address] [place] [address], [address], 12/30/2023 09:37:40 12/30/19 24 12/30/2023 urina lysis panel , auto Unknown Analyte 5.0-8. 0 Not Available [facility] Schedule [address] [place] [address], [address], 12/30/2023 09:37:40 12/30/19 24 12/30/2023 urina lysis panel , auto Unknown Analyte Negati ve Not Available [facility] Schedule [address] [place] [address], [address], 12/30/2023 09:37:40 12/30/19 24 12/30/2023 urina lysis panel , auto Unknown Analyte Negati ve Not Available [facility] Schedule [address] [place] [address], [address], 12/30/2023 09:37:40 12/30/19 24 12/30/2023 urina lysis panel , auto Unknown Analyte POSITI VE (Abnor mal) Not Available [facility] Schedule [address] [place] [address], [place], [address], 12/30/2023 09:37:40 12/30/19 24 12/30/2023 urina lysis panel , auto Unknown Analyte Negati ve Not Available [facility] Schedule [address] [place], [address], 12/30/2023 09:37:40 12/30/19 24 12/30/2023 urina lysis panel , auto Unknown Analyte Negati ve Not Available [facility] Schedule [address] [place], [address], 12/30/2023 09:37:40 12/30/1912/30/2023 urina lysis panel , auto Unknown Analyte Negati ve Not Available [facility] Schedule [address] [place], [address], 12/30/2023 09:37:40 12/30/19 24 12/30/2023 urina lysis panel , auto Unknown Analyte >1000 mg/dl Not Available [facility] Schedule [address] [place], [address], 12/30/2023 09:37:40 12/30/19 24 12/30/2023 urina lysis panel , auto Unknown Analyte Normal Not Available [facility] Schedule [address] [place], [address], 12/30/2023 09:37:40 12/30/19 24 12/30/2023 urina lysis panel , auto Unknown Analyte Negati ve Not Available [facility] Schedule [address] [place], [address], 12/30/2023 09:37:40 12/30/19 24 12/30/2023 urina lysis panel , auto Unknown Analyte Negati ve Not Available [facility] Schedule [address] [place], [address], 12/30/2023 09:37:40 12/30/19 24 12/30/2023 urina lysis panel , auto Unknown Analyte Normal Not Available [facility] Schedule [address] [place], [address], 12/30/2023 09:37:40 12/30/19 24 12/30/2023 urina lysis panel , auto Unknown Analyte Normal 1 mg/dl Not Available [facility] Schedule [address] [place], [address], 12/30/2023 09:37:40 12/30/19 24 12/30/2023 urina lysis panel , auto Unknown Analyte Negati ve Not Available [facility] Schedule [address] [place], [address], 12/30/2023 09:37:40 12/30/19 24 12/30/2023 urina lysis panel , auto Unknown Analyte Negati ve Not Available [facility] Schedule [address] [place], [address], 12/30/2023 09:37:40 12/30/19 24 12/30/2023 urina lysis panel , auto Unknown Analyte Negati ve Not Available [facility] Schedule [address] [place], [address], 12/30/2023 09:37:40 12/30/19 24 12/30/2023 urina lysis panel , auto Unknown Analyte Negati ve Not Available [facility] Schedule [address] [place], [address], 12/30/2023 09:37:40 01/28/20 24 01/28/2024 urina lysis panel , auto Unknown Analyte Clean Catch Not Available [facility] [address] [place] [address] [address], [place], [address], 01/28/2024 13:18:47 01/28/20 24 01/28/2024 urina lysis panel , auto Unknown Analyte Yellow Not Available [facility] [address], [place], [address], 01/28/2024 13:18:47 01/28/20 24 01/28/2024 urina lysis panel , auto Unknown Analyte Clear Not Available [facility] [address], [place], [address], 01/28/2024 13:18:47 01/28/20 24 01/28/2024 urina lysis panel , auto Unknown Analyte 1.015 Not Available [facility] [address], [place], [address], 01/28/2024 13:18:47 01/28/20 24 01/28/2024 urina lysis panel , auto Unknown Analyte 1.003- 1.035 Not Available [facility] [address], [place], [address], 01/28/2024 13:18:47 01/28/20 24 01/28/2024 urina lysis panel , auto Unknown Analyte 5.0 Not Available [facility] [address] [place] [address] Rd [address], [place], [address], 01/28/2024 13:18:47 01/28/20 24 01/28/2024 urina lysis panel , auto Unknown Analyte 5.0-8. 0 Not Available [facility] [address], [place], [address], 01/28/2024 13:18:47 01/28/20 24 01/28/2024 urina lysis panel , auto Unknown Analyte Negati ve Not Available [facility] [address], [place], [address], 01/28/2024 13:18:47 01/28/20 24 01/28/2024 urina lysis panel , auto Unknown Analyte Negati ve Not Available [facility] [address], [place], [address], 01/28/2024 13:18:47 01/28/20 24 01/28/2024 urina lysis panel , auto Unknown Analyte Negati ve Not Available [facility] [address], [place], [address], 01/28/2024 13:18:47 01/28/20 24 01/28/2024 urina lysis panel , auto Unknown Analyte Negati ve Not Available [facility] [address], [place], [address], 01/28/2024 13:18:47 01/28/20 24 01/28/2024 urina lysis panel , auto Unknown Analyte Negati ve Not Available [facility] [address] [place] [address] Rd [address], [place], [address], 01/28/2024 13:18:47 01/28/20 24 01/28/2024 urina lysis panel , auto Unknown Analyte Negati ve Not Available [facility] [address], [place], [address], 01/28/2024 13:18:47 01/28/20 24 01/28/2024 urina lysis panel , auto Unknown Analyte >1000 mg/dl Not Available [facility] [address], [place], [address], 01/28/2024 13:18:47 01/28/20 24 01/28/2024 urina lysis panel , auto Unknown Analyte Normal Not Available [facility] [address], [place], [address], 01/28/2024 13:18:47 01/28/20 24 01/28/2024 urina lysis panel , auto Unknown Analyte Negati ve Not Available [facility] [address], [place], [address], 01/28/2024 13:18:47 01/28/20 24 01/28/2024 urina lysis panel , auto Unknown Analyte Negati ve Not Available [facility] [address], [place], [address], 01/28/2024 13:18:47 01/28/20 24 01/28/2024 urina lysis panel , auto Unknown Analyte Normal Not Available [facility] [address], [place], [address], 01/28/2024 13:18:47 01/28/20 24 01/28/2024 urina lysis panel , auto Unknown Analyte Normal 1 mg/dl Not Available [facility] [address], [place], [address], 01/28/2024 13:18:47 01/28/20 24 01/28/2024 urina lysis panel , auto Unknown Analyte Negati ve Not Available [facility] [address], [place], [address], 01/28/2024 13:18:47 01/28/20 24 01/28/2024 urina lysis panel , auto Unknown Analyte Negati ve Not Available [facility] [address], [place], [address], 01/28/2024 13:18:47 01/28/20 24 01/28/2024 urina lysis panel , auto Unknown Analyte Negati ve Not Available [facility] [address], [place], [address], 01/28/2024 13:18:47 01/28/20 24 01/28/2024 urina lysis panel , auto Unknown Analyte Negati ve Not Available [facility] With [address], [place], [address], 01/28/2024 13:18:47 12/08/19 25 12/07/2024 urina lysis panel , auto Unknown Analyte Clean Catch Not Available [facility] [place] With [address], [place], [address], 12/07/2024 15:54:20 12/08/19 25 12/07/2024 urina lysis panel , auto Unknown Analyte Yellow Not Available [facility] [place] With [address], [place], [address], 12/07/2024 15:54:20 12/08/19 25 12/07/2024 urina lysis panel , auto Unknown Analyte Clear Not Available [facility] [place] With [address], [place], [address], 12/07/2024 15:54:20 12/08/19 25 12/07/2024 urina lysis panel , auto Unknown Analyte 1.015 Not Available [facility] With [address], [place], [address], 12/07/2024 15:54:20 12/08/19 25 12/07/2024 urina lysis panel , auto Unknown Analyte 1.003 - 1.030 Not Available [facility] With [address], [place], [address], 12/07/2024 15:54:20 12/08/19 25 12/07/2024 urina lysis panel , auto Unknown Analyte 6.0 Not Available [facility] With [address], [place], [address], 12/07/2024 15:54:20 12/08/19 25 12/07/2024 urina lysis panel , auto Unknown Analyte 5.0 - 8.0 Not Available [facility] With [address], [place], [address], 12/07/2024 15:54:20 12/08/19 25 12/07/2024 urina lysis panel , auto Unknown Analyte Negati ve Not Available [facility] With [address], [place], [address], 12/07/2024 15:54:20 12/08/19 25 12/07/2024 urina lysis panel , auto Unknown Analyte Negati ve Not Available [facility] With [address], [place], [address], 12/07/2024 15:54:20 12/08/19 25 12/07/2024 urina lysis panel , auto Unknown Analyte Negati ve Not Available [facility] With [address], [place], [address], 12/07/2024 15:54:20 12/08/19 25 12/07/2024 urina lysis panel , auto Unknown Analyte Negati ve Not Available [facility] With [address], [place], [address], 12/07/2024 15:54:20 12/08/19 25 12/07/2024 urina lysis panel , auto Unknown Analyte Negati ve Not Available [facility] With [address], [place], [address], 12/07/2024 15:54:20 12/08/19 25 12/07/2024 urina lysis panel , auto Unknown Analyte Negati ve Not Available [facility] With [address], [place], [address], 12/07/2024 15:54:20 12/08/19 25 12/07/2024 urina lysis panel , auto Unknown Analyte >1000 mg/dL Not Available [facility] [place] [address], [place], [address], 12/07/2024 15:54:20 12/08/19 25 12/07/2024 urina lysis panel , auto Unknown Analyte Normal Not Available [facility] [place] [address], [place], [address], 12/07/2024 15:54:20 12/08/19 25 12/07/2024 urina lysis panel , auto Unknown Analyte Negati ve Not Available [facility] [place] [address], [place], [address], 12/07/2024 15:54:20 12/08/19 25 12/07/2024 urina lysis panel , auto Unknown Analyte Negati ve Not Available [facility] [place] [address], [place], [address], 12/07/2024 15:54:20 12/08/19 25 12/07/2024 urina lysis panel , auto Unknown Analyte Normal Not Available [facility] With [address], [place], [address], 12/07/2024 15:54:20 12/08/19 25 12/07/2024 urina lysis panel , auto Unknown Analyte Normal Not Available [facility] With [address], [place], [address], 12/07/2024 15:54:20 12/08/19 25 12/07/2024 urina lysis panel , auto Unknown Analyte Negati ve Not Available [facility] [facility] [address], [place], [address], 12/07/2024 15:54:20 12/08/19 25 12/07/2024 urina lysis panel , auto Unknown Analyte Negati ve Not Available [facility] [place] [address], [place], [address], 12/07/2024 15:54:20 12/08/19 25 12/07/2024 urina lysis panel , auto Unknown Analyte Negati ve Not Available [facility] [place] [address], [place], [address], 12/07/2024 15:54:20 12/08/19 25 12/07/2024 urina lysis panel , auto Unknown Analyte Negati ve Not Available [facility] [address], [place], [address], 12/07/2024 15:54:20 Result Notes None recorded. Problems Name Problem SNOMED Code Status Onset Date Resolution Date Notes Provider Name and Address Organization Details Recorded Time Overactive urinary bladder 407261638 Active 024 JOSE AMIN MD [address] [place] [address], [address] , [facility] 15:59:10 Problem Notes None recorded. Procedures Surgical History Date Name Laterality Status Provider Name and Address Organization Details Recorded Time 07/11/19 arthroplasty of knee completed Murelene Dionicio [facility] 12/07/2024 15:54:02 cholecystectomy completed [facility] 11/22/2023 14:47:43 Carpal tunnel surgery completed [facility] 11/22/2023 14:47:59 hernia repair completed [facility] 11/22/2023 14:48:23 biopsy completed [facility] 11/22/2023 14:48:59 Tubal Ligation completed [facility] 11/22/2023 14:49:07 procedure on finger completed [facility] 11/22/2023 14:49:32 Cerebral Aneurysm completed [facility] 11/22/2023 14:50:43 Imaging Results None recorded. Procedure Notes None recorded. Medical Equipment None Reported. Allergies Allergen ID Allergen Name Allergen Category Reaction Reaction Severity Criticality Documentation Date Start Date Code Code System Note Provider Name and Address Organization Details Recorded Time 432914 Ozempic medicatio n Not available Not available Not available 11/22/2023 RxNorm [facility] 14:43:39 Medications Name Sig Start Date Stop [...] Updated DateTime 06/15/2024 165.1 cm 30 kg/m2 [facility] 06/15/[facility] 16:02:09 Date Recorded Body height Body mass index (BMI) Body weight Provider Name and Address Organization Details Last Updated DateTime 12/07/2024 165.1 cm 32.4 kg/m2 82253.51 adiel Greenberg [facility] 12/07/2024 15:53:27 Date Recorded Body height Body mass index (BMI) Body weight Provider Name and Address Organization Details Last Updated DateTime 01/28/2024 165.1 cm 30.6 kg/m2 10100 adiel Villatoro [facility] 01/28/2024 11:07:04 Social History Question Answer Notes LastModified by imedo Details LastModified Time Tobacco Smoking Status Never Smoker [facility] 11/22/2023 14:47:17 What Was The Date Of Your Most Recent Tobacco Screening? 06/15/2024 [email or web address] Information not available 06/15/2024 What Is Your Relationship Status? [email or web address] Information not available 11/22/2023 Has Tobacco Cessation Counseling Been Provided? No [email or web address] Information not available 11/22/2023 Sex: Unknown Functional Status Question Answer Note LastModified by imedo Details LastModified Time Do you use any illicit or recreational drugs? No [email or web address] Information not available 11/22/2023 Do you or have you ever used any other forms of tobacco or nicotine? No [email or web address] Information not available 11/22/2023 What is your level of alcohol consumption? None Information not available 11/22/2023 Are you currently employed? No retired [email or web address] Information not available 11/22/2023 Mental Status None recorded. Family History Relationship Description Onset Age of this Age Resolved Age Notes LastModified by Organization Details LastModified Time Father No current problems or disability Not available 14:47:07 Mother No current problems or disability [email or web address] Not available 14:47:07 Medical History Condition Response Arthritis Y Stroke Y Anemia Y Diabetes Y Hypertension Y Gynecological HistoryNo gynecological history recorded. Obstetrics History GPAL:G 0 P 0 0 0 0 Immunizations Vaccine Type Date Status Note Provider Nam e and Address Organization Details Recorded Time Influenza, high-dose, trivalent, PF 7 completed Not Available [facility] 12/07/2024 15:51:40 Influenza, split virus, quadrivalent, PF [...] 50 mcg/0.25mL dose 1 completed Not Available [facility] 12/07/2024 15:51:40 Tdap 4 completed Not Available [facility] 12/07/2024 15:51:40 Influenza, high-dose, quadrivalent, PF 5 completed Not Available [facility] 12/07/2024 15:51:40 Pneumococcal conjugate PCV20, polysaccharide [id number] conjugate, adjuvant, PF 5 completed Not Available [facility] 12/07/2024 15:51:40 Past Encounters Encounter ID Performer Location Encounter Start Date Encounter Closed Date Diagnosis/Indication Diagnosis SNOMED-CT Code Diagnosis ICD10 Code Diagnosis IMO Codes Diagnosis Note [id number] MD [facility] [address] [place] [address] 11/22/2023 15:47:47 11/22/2023 16:02:55 Overactive urinary bladder 419976199 N32.81 Urge incon tinence of urine 16063923 N39.41 [id number] JOSE AMIN MD SURGERY SCHEDULE [address] [place] [address] 12/30/2023 08:00:22 12/30/2023 08:00:43 Postoperative pain 971317816 G89.18 [id number] MD [facility] [address] [place] [address] 01/28/2024 10:00:18 01/28/2024 11:10:43 Overactive urinary bladder 812122078 N32.81 Urge incon tinence of urine 05997621 N39.41 [id number] JOSE AMIN MD [facility] [address] [address] 06/15/2024 15:41:59 06/15/2024 16:23:09 Overactive urinary bladder 834525735 N32.81 200190 - Initiate trazodone. - Consider Botox if symptoms persist. - Monitor trospium efficacy. - Discuss consent for Botox. Urge incon tinence of urine 34239869 N39.41 303694 - Trospium prescribed . - Possible Botox as backup. - Inform patient on Botox details. - Consent for Botox if chosen. [id number] JOSE AMIN MD [facility] [address] [address] 12/07/2024 15:50:47 12/07/2024 16:37:13 Overactive urinary bladder 064233945 N32.81 474846 - Continue current medication regimen with Gemtesa, although effectiven ess is limited. - Schedule for Botox injections to manage symptoms, as discussed. 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 Nocturia 209827695 R35.1 02713 - Monitor nocturia symptoms and adjust treatment plan as necessary. [id number] JOSE AMIN MD SURGERY SCHEDULE [address] [place] [address] 01/02/2025 12:14:09 01/02/2025 12:14:53 Health Concerns Section Related Observation LastModified by Organization Detai ls LastModified Time None Recorded Concern Status LastModified by Organization Details LastModified Time None Recorded Advance Directives Directive None Recorded Payers Insurance Date Sequence Insurance Name Policy Number Policy Batista Covered Member ID Batista Member ID Guarantor Name 01/02/2025 1 [place]ARE[place] ([place]ARE[place] Rosa Robel Kamala [id number] Rosa Huston Kamala 01/09/2025 2 [facility] [place] [id number] Rosa Kamala [id number] Rosa Huston Kamala Notes Date Note [...] No hematuria or dysuria. JOSE AMIN MD [address] [place] [address], [phone], [facility] 01/30/2024 09:04:23 06/15/2024 text/html - The patient [...] treatment for the condition. JOSE AMIN MD [address] [place] [address], [phone], [facility] 06/16/2024 08:49:30 12/07/2024 text/html The patient is [...] note prior to signature. JOSE AMIN MD [facility] [place], [address], [facility] 12/18/2024 09:26:56 OBGyn Episode No OBEpisode recorded.
--- OUTSIDE RECORDS SUMMARY | 2025-02-05 08:31 | XMS_ITS | Encounter Summary ---
Author Organization Healthcare Address [address] [place] [address] Care Team Providers Care Network Support Manager Name Role Phone Chase Gunn MD Primary Care Provider [phone] Encounter Details Date Type Department Care Team ([facility] st Contact Info) Description 01/10/2025 Orders Only External Location [address] [place] [address] Provider, External Social History Tobacco Use Types [...] any time in the past 12 m [facility], were you homeless or living in a penitentiary (including now)? No 01/16/2025 [facility] Utilities Answer Date Recorded In the [...] Description 02/14/2025 1:00 PM EST Office Visit [facility] [address] [place] [address] Asher Sinha MD [address] [facility] [address] [place] [address] 03/27/2025 8:30 AM EST Consult [facility] [address] [place] [address] Fransisco Farley MD [address] [place] [address] documented as of this encounter Procedures Procedure Name Priority Date/Time Associated Diagnosis Comments CT MSK OUTSIDE IMAGES 01/10/2025 documented in this encounter Results * CT MSK OUTSIDE IMAGES (01/10/2025) Anatomical Region Laterality Modality Computed Tomogra phy 01/10/2025 us External Provider IMG CT PROCEDURES Final Result documented in this encounter Visit Diagnoses Not on filedocumented in this encounter Care Teams Network Support Manager Relationship Specialty [place] [id number] PCP - General 06/21/20 documented as of this encounter
--- OUTSIDE RECORDS SUMMARY | 2025-02-05 08:31 | XMS_ITS | Continuity of Care Document ---
Author Organization [facility], SURGERY SCHEDULE Address [address] [place] [address] Care Team Providers Care Marketing Production Manager Name Role Phone DARIELA LOCKETT Primary Care Provider [phone] Assessment Encounter Date Assessment Date Assessment LastModified [...] one month for reevaluation of her symptoms. [email or web address] Not available 01/07/2025 10:20:24 Plan of Treatment [...] auto Unknown Analyte Clean Catch Not Available [facility] [address], [place], [address], 12/07/2024 15:54:20 12/08/1912/07/2024 urina lysis panel , auto Unknown Analyte Yellow Not Available [address], [place], [address], 12/07/2024 15:54:20 12/08/19 25 12/07/2024 urina lysis panel , auto Unknown Analyte Clear Not Available [facility] With [address], [place], [address], 12/07/2024 15:54:20 12/08/19 25 12/07/2024 urina lysis panel , auto Unknown Analyte 1.015 Not Available [facility] With [address], [place], [address], 12/07/2024 15:54:20 12/08/19 25 12/07/2024 urina lysis panel , auto Unknown Analyte 1.003 - 1.030 Not Available [facility] [address], [place], [address], 12/07/2024 15:54:20 12/08/19 25 12/07/2024 urina lysis panel , auto Unknown Analyte 6.0 Not Available [facility] [address], [place], [address], 12/07/2024 15:54:20 12/08/19 25 12/07/2024 urina lysis panel , auto Unknown Analyte 5.0 - 8.0 Not Available [facility] [address], [place], [address], 12/07/2024 15:54:20 12/08/19 25 12/07/2024 urina lysis panel , auto Unknown Analyte Negati ve Not Available [facility] [address], [place], [address], 12/07/2024 15:54:20 12/08/19 25 12/07/2024 urina lysis panel , auto Unknown Analyte Negati ve Not Available [facility] With [address], [place], [address], 12/07/2024 15:54:20 12/08/19 25 12/07/2024 urina lysis panel , auto Unknown Analyte Negati ve Not Available [facility] [address], [place], [address], 12/07/2024 15:54:20 12/08/19 25 12/07/2024 urina lysis panel , auto Unknown Analyte Negati ve Not Available [facility] With [address], [place], [address], 12/07/2024 15:54:20 12/08/19 25 12/07/2024 urina lysis panel , auto Unknown Analyte Negati ve Not Available [facility] [address], [place], [address], 12/07/2024 15:54:20 12/08/19 25 12/07/2024 urina lysis panel , auto Unknown Analyte Negati ve Not Available [facility] [address], [place], [address], 12/07/2024 15:54:20 12/08/19 25 12/07/2024 urina lysis panel , auto Unknown Analyte >1000 mg/dL Not Available [facility] [address], [place], [address], 12/07/2024 15:54:20 12/08/19 25 12/07/2024 urina lysis panel , auto Unknown Analyte Normal Not Available [facility] With [facility] [address], [place], [address], 12/07/2024 15:54:20 12/08/19 25 12/07/2024 urina lysis panel , auto Unknown Analyte Negati ve Not Available [facility] [address], [place], [address], 12/07/2024 15:54:20 12/08/19 25 12/07/2024 urina lysis panel , auto Unknown Analyte Negati ve Not Available [facility] [address], [place], [address], 12/07/2024 15:54:20 12/08/19 25 12/07/2024 urina lysis panel , auto Unknown Analyte Normal Not Available [facility] With [facility] [address], [place], [address], 12/07/2024 15:54:20 12/08/19 25 12/07/2024 urina lysis panel , auto Unknown Analyte Normal Not Available [facility] With [address], [place], [address], 12/07/2024 15:54:20 12/08/19 25 12/07/2024 urina lysis panel , auto Unknown Analyte Negati ve Not Available [facility] [address], [place], [address], 12/07/2024 15:54:20 12/08/19 25 12/07/2024 urina lysis panel , auto Unknown Analyte Negati ve Not Available [facility] With [address], [place], [address], 12/07/2024 15:54:20 12/08/19 25 12/07/2024 urina lysis panel , auto Unknown Analyte Negati ve Not Available [facility] With [address], [place], [address], 12/07/2024 15:54:20 12/08/19 25 12/07/2024 urina lysis panel , auto Unknown Analyte Negati ve Not Available [facility] With [address], [place], [address], 12/07/2024 15:54:20 Result Notes None recorded. Problems Name Problem SNOMED Code Status Onset Date Resolution Date Notes Provider Name and Address Organization Details Recorded Time Overactive urinary bladder 605191133 Active 024 JOSE MAIN MD [address] [place] [address], [address] [place] [address] 15:59:10 Problem Notes None recorded. Procedures Surgical History Date Name Laterality Status Provider Name and Address Organization Details Recorded Time 07/11/19 25 arthroplasty of knee completed Murelene Dionicio [facility] 12/07/2024 15:54:02 cholecystectomy completed Anthony Richards [facility] 11/22/2023 14:47:43 Carpal tunnel surgery completed [facility] 11/22/2023 14:47:59 hernia repair completed [facility] 11/22/2023 14:48:23 biopsy completed [facility] 11/22/2023 14:48:59 Tubal Ligation completed [facility] 11/22/2023 14:49:07 procedure on finger completed [facility] 11/22/2023 14:49:32 Cerebral Aneurysm completed [facility] 11/22/2023 14:50:43 Imaging Results None recorded. Procedure Notes None recorded. Medical Equipment None Reported. Allergies Allergen ID Allergen Name Allergen Category Reaction Reaction Severity Criticality Documentation Date Start Date Code Code System Note Provider Name and Address Organization Details Recorded Time 851341 Ozempic medicatio n Not available Not available Not available 11/22/2023 RxNorm [facility] 14:43:39 Medications Name Sig Start Date [...] Tobacco Smoking Status Never Smoker Anthony Richards [facility] 11/22/2023 14:47:17 What Was The Date Of Your Most Recent Tobacco Screening? 06/15/2024 [email or web address] Information not available 06/15/2024 What Is Your Relationship Status? [email or web address] Information not available 11/22/2023 Has Tobacco Cessation Counseling Been Provided? No [email or web address] Information not available 11/22/2023 Sex: Unknown Functional Status Question Answer Note LastModified by Organizat ion Details LastModified Time Do you use any illicit or recreational drugs? No [email or web address] Information not available 11/22/2023 Do you or have you ever used any other forms of tobacco or nicotine? No [email or web address] Information not available 11/22/2023 What is your level of alcohol consumption? None [email or web address] Information not available 11/22/2023 Are you currently employed? No retired Information not available 11/22/2023 Mental Status None recorded. Family History Relationship Description Onset Age of this Age Resolved Age Notes LastModified by Organization Details LastModified Time Father No current problems or disability [email or web address] Not available 14:47:07 Mother No current problems or disability [email or web address] Not available 14:47:07 Medical History Condition Response Diabetes Y Anemia Y Arthritis Y Stroke Y Hypertension Y Gynecological HistoryNo gynecological history recorded. Obstetrics History GPAL:G 0 P 0 0 0 0 Immunizations Vaccine Type Date Status Note Provider Nam e and Address Organization Details Recorded Time Influenza, high-dose, trivalent, PF 7 completed Not Available [facility] 12/07/2024 15:51:40 Influenza, split virus, quadrivalent, PF 8 completed Not Available [facility] 12/07/2024 15:51:40 COVID-19, mRNA, LNP-S, PF, 100 mcg/0.5mL dose or 50 mcg/0.25mL dose 1 completed Not Available [facility] 12/07/2024 15:51:40 COVID-19, mRNA, LNP-S, PF, 100 mcg/0.5mL dose or 50 mcg/0.25mL dose 1 completed Not Available [facility] 12/07/2024 15:51:40 COVID-19, mRNA, LNP-S, PF, 100 mcg/0.5mL dose or 50 mcg/0.25mL dose 1 completed Not Available [facility] 12/07/2024 15:51:40 Tdap 4 completed Not Available [facility] 12/07/2024 15:51:40 Influenza, high-dose, quadrivalent, PF 5 completed Not Available [facility] 12/07/2024 15:51:40 Pneumococcal conjugate PCV20, polysaccharide [id number] conjugate, adjuvant, PF 5 completed Not Available [facility] 12/07/2024 15:51:40 Past Encounters Encounter ID Performer Location Encounter Start Date Encounter Closed Date Diagnosis/Indication Diagnosis SNOMED-CT Code Diagnosis ICD10 Code Diagnosis IMO Codes Diagnosis Note [id number] JOSE AMIN MD [facility] [address] [facility] [place] [address] 12/07/2024 15:50:47 12/07/2024 16:37:13 Overactive urinary bladder 521083956 N32.81 668508 - Continue current medication regimen with Gemtesa, although effectiven ess is limited. - Schedule for Botox injections to manage symptoms, as discussed. Urge incon tinence of urine 20495617 N39.41 257687 - Considerat ion of Botox injections for symptom management . Nocturia 719214678 R35.1 20484 - Monitor nocturia symptoms and adjust treatment plan as necessary. [id number] JOSE AMIN MD SURGERY SCHEDULE [address] [place] [address] 01/02/2025 12:14:09 01/02/2025 12:14:53 Health Concerns Section Related Observation LastModified by Organization Detai ls LastModified Time None Recorded Concern Status LastModified by Organization Details LastModified Time None Recorded Payers Encounter Date Sequence Insurance Name Policy Number Policy Batista Covered Member ID Batista Member ID Guarantor Name 01/02/2025 1 [place] Rosa L Kamala [id number] Rosa L Kamala 01/02/2025 2 [place] [facility] [id number] Rosa Kamala [id number] Rosa L Kamala OBGyn Episode No OBEpisode recorded.
--- OUTSIDE RECORDS SUMMARY | 2025-02-05 08:31 | XMS_ITS | Encounter Summary ---
Author Organization Healthcare Address [address] [place] [address] Care Team Providers Care Stove Cleaner Name Role Phone Chase Gunn MD Primary Care Provider Encounter Details Date Type Department Care Team (Latest Contact Info) Description 01/31/2025 Travel Social History Tobacco Use Types Packs/Day [...] [facility] the [email or web address] or living in a snf (including now)? No 01/16/2025 [facility] Utilities Answer Date Recorded In [...] Assessment Author Have you been in contact wit h someone who was sick? No / Unsure 01/31/2025 12:17 PM Sheryl Singer Do you have any of the following new or worsening symptoms? None of these 01/31/2025 12:17 PM Sheryl Singer * Travel Screening Question Answer Date of Assessment Author Have you traveled [place] or domestically in the last month? No 01/31/2025 12:17 PM Sheryl Dillon documented as of this encounter Mental Status * Communicable Disease Screening Question Answer Entry Date Author Have you been in contact wit h someone who was sick? No / Unsure 01/31/2025 12:17 PM Sheryl Singer Do you have any of the following new or worsening symptoms? None of these 01/31/2025 12:17 PM EST Sheryl Irving * Travel Screening Question Answer Entry Date Author Have you traveled [place] or domestically in the last month? No 01/31/2025 12:17 PM EST Sheryl Gallagher documented in this encounter Plan of Treatment Upcoming Encounters Date Type Department Care Team (Late st Contact Info) Description 02/14/2025 1:00 PM EST Office Visit [facility] [address] [facility] [place] [address] Asher Sinha MD [address] [facility] [address] [place] [address] 03/27/2025 8:30 AM EST Consult [facility] [address], [address] [place] [address] Fransisco Farley MD [address] [place] [address] documented as of this encounter [...] documented as of this encounter Care Teams Stove Cleaner Relationship Specialty Start Date End Date Chase Gunn MD [id number] PCP - General 06/21/20 documented as of this encounter
--- OUTSIDE RECORDS SUMMARY | 2025-02-05 08:31 | XMS_ITS | Encounter Summary ---
Author Organization Healthcare Address [address] [place] [address] Care Team Providers Care Account Relationship Manager Name Role Phone Chase Gunn MD Primary Care Provider [phone] Encounter Details Date Type Department Care Team ([facility] st Contact Info) Description 01/10/2025 Orders Only External Location [address] [place] [address] Provider, External Social History Tobacco Use Types [...] any time in the past 12 m [facility], were you homeless or living in a fci (including now)? No 01/16/2025 [facility] Utilities Answer Date Recorded In the [...] Description 02/14/2025 1:00 PM EST Office Visit [facility] [address] [place] [address] Asher Sinha MD [address] [facility] [address] [place] [address] 03/27/2025 8:30 AM EST Consult [facility] [address], [address] [place] [address] Fransisco Farley MD [address] [place] [address] documented as of this encounter Procedures Procedure Name Priority Date/Time Associated Diagnosis Comments XR OUTSIDE IMAGES 01/10/2025 documented in this encounter Results * XR OUTSIDE IMAGES (01/10/2025) Anatomical Region Laterality Modality Radiographic Adirana ging 01/10/2025 us External Provider IMG XR PROCEDURES Final Result documented in this encounter Visit Diagnoses Not on filedocumented in this encounter Care Teams Account Relationship Manager Relationship Specialty Start Date End Date Chase Gunn MD [id number] PCP - General 06/21/20 documented as of this encounter
--- OUTSIDE RECORDS SUMMARY | 2025-02-05 08:31 | XMS_ITS | Encounter Summary ---
Author Organization Healthcare Address [address] [id number] Care Team Providers Care Friction Paint Machine Tender Name Role Phone Chase Gunn MD Primary Care Provider [phone] Encounter Details Date Type Department Care Team (Late st Contact Info) Description 01/31/2025 Clinical Support [facility] [address] [place] [address] Pepe Sharp, PharmD [address] [place] [address] Social History Tobacco Use Types Packs/Day Years [...] in a prison (including now)? No 01/16/2025 [facility] Utilities Answer Date Recorded In the past [...] as of this encounter Miscellaneous Notes * Progress Notes - Pepe Sharp, PharmD - 01/31/2025 4:02 PM EST Pharmacist/Pharmacokinetic OPAT Note Rosa Wray is a 74 y.o. female enrolled in the outpatient parenteral antimicrobial therapy (OPAT)program, managed through the [facility] ([facility]) at the [facility]. 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 Vancomycin dosing adjustments are being managed by facility pharmacy. Latonia FitzpatrickD documented in this encounter Plan of Treatment Upcoming Encounters Date Type Department Care Team (Late st Contact Info) Description 02/14/2025 1:00 PM EST Office Visit [facility] [address] [place] [address] Asher Sinha MD [address] [facility] [address] [place] [address] 03/27/2025 8:30 AM EST Consult [facility] [address], [address] [place] [address] Fransisco Farley MD [address] [place] [address] documented as of this encounter [...] documented as of this encounter Care Teams Friction Paint Machine Tender Relationship Specialty [place] [id number] PCP - General 06/21/20 documented as of this encounter
[2025-02-05 09:11] LABS: Hematocrit 30.7 % (37.0-47.0); Hemoglobin 9.9 g/dL (12.2-16.2); Mean Corpuscular HGB Conc 32.2 g/dL (31.8-35.4); Mean Corpuscular Hemoglobin 31.5 pg (27.0-31.2); Mean Corpuscular Volume 97.8 fl (81-99); Platelet Count 225 K/mm3 (142-424); Red Blood Count 3.14 M/mm3 (4.20-5.40); Red Cell Distribution Width-SD 52.5 fL; White Blood Count 4.0 K/mm3 (4.8-10.8)
[2025-02-05 09:12] LABS: Immature Granulocytes % 0 %; Nucleated Red Blood Cells % 0 %
[2025-02-05 09:53] LABS: Alanine Aminotransferase 19 U/L (12-78); Albumin Level 3.3 g/dl (3.5-5.0); Albumin/Globulin Ratio 1.3 (1.1-1.8); Alkaline Phosphatase 92 U/L (38-126); Anion Gap 7.0 mEq/L (5-15); Aspartate Amino Transferase 31 U/L (14-36); Bilirubin,Total 0.4 mg/dl (0.2-1.3); Blood Urea Nitrogen 20 mg/dl (7-17); Calcium 8.8 mg/dl (8.4-10.2); Carbon Dioxide 30 mmol/L (22.0-30.0); Chloride 103 mmol/L (98-107); Creatinine,Serum 1.50 mg/dl (0.52-1.04); Estimated Glomerular Filt Rate 34 ml/min (>60); GFR (African American) 41 ML/MIN (>60); Globulin 2.6 g/dL (1.3-3.2); Glucose 126 mg/dl (74-100); Potassium 4.0 mmoL/L (3.5-5.1); Sodium 136 mmol/L (136-145); Total Protein,Serum 5.9 g/dl (6.3-8.2)
[2025-02-05 09:57] LABS: Vancomycin,Random 17.0 ug/ml
== END 2025-02-05 23:59 | disposition home or self-care (01) ==
LOC: LAB.DROPOF 08:25
PROVIDERS: PCP Family Medicine; Visit Provider Family Medicine
DX: Z51.81 Encounter for therapeutic drug level monitoring (principal)
CPT/HCPCS: 36415; 80053; 80202; 85025

== ENCOUNTER 2025-02-07 08:49 | Outpatient (CLI) | payer MEDICARE, BC, SELFPAY ==
--- OUTSIDE RECORDS SUMMARY | 2024-05-23 05:45 | XMS_ITS ---
Author Organization [facility] Address [address] [id number] Care Team Providers Care Tongue Carrier Name Role Phone Chase Gunn Primary Care Provider Allergies Allergen (clinical drug ingredient) Drug/Non Drug Allergy documented on EMR Reaction Allergy Type Onset Date Status promethazine Promethazine sore mouth Drug Allergy Active Results Component Value Reference Range Notes P-Comprehensive Metabolic Pa torsten (CMP) Reviewed date:05/24/2024 11:29:48 AM Interpretation:glu 132, BUN 25, creat 1.24, eGFR 46 Performing Lab: Notes/Report: Test performed by [facility], [address] , [address], [place] [address] Deshawn Meade MD, Ordnance Truck Installation Mechanic CLIA: [id number] Sodium 141 135-145 mmol/L Potassium 5.3 3.5-5.3 mmol/L Chloride 101 97-108 mmol/L CO2 25 22-32 mmol/L Glucose 132 65-99 mg/dL BUN 25 8-23 mg/dL Creatinine 1.24 0.50-1.00 mg/dL Calcium 9.8 8.6-10.4 mg/dL eGFR by Creatinine 46 >59 mL/min/1.73m2 Protein 6.5 6.0-8.3 g/dL Albumin 4.0 3.5-5.3 g/dL Alkaline Phosphatase 106 35-121 IU/L ALT (SGPT) 20 <5-47 IU/L AST (SGOT) 22 <5-40 IU/L Bilirubin, Total 0.3 <0.2-1.2 mg/dL A/G Ratio 1.6 1.1-2.5 P-Hemoglobin A1C Reviewed date:05/24/2024 11:29:48 AM Interpretation:7.8 Performing Lab: Notes/Report: Test performed by [facility] [address] [place] [address] [place] [address] Deshawn Meade MD, Ordnance Truck Installation Mechanic CLIA: [id number] Hemoglobin A1C 7.8 <5.7 % The following HbA1c ranges recommended by the [place] [employer] (ADA) may be used as an aid in the diagnosis of diabetes mellitus. HbA1c Suggested Diagnosis >=6.5% Diabetic 5.7% - 6.4% Pre-Diabetic <5.7% Non-Diabetic P-Lipid Panel Reviewed date:05/24/2024 11:29:48 AM Interpretation: Normal Performing Lab: Notes/Report: Test performed by [facility] [address] [place] [address] Jose Vargas C, [place] [address] Deshawn Meade MD, Ordnance Truck Installation Mechanic CLIA: [id number] Cholesterol 144 <200 mg/dL Triglycerides 111 <150 mg/dL HDL Cholesterol 45 >39 mg/dL Cholesterol / HDL Ratio 3.20 0.00-4.44 Ratio Non-HDL Cholesterol 99 <130 mg/dL LDL Cholesterol (Calculation) 77 <130 mg/dL LDL Cholesterol Levels* Less than 100 mg/dL Optimal 100 to 129 mg/dL Near Optimal/ Above Optimal 130 to 159 mg/dL Borderline High 160 to 189 mg/dL High 190 mg/dL and above Very High * Categories as recommended by the 2004 ATPIII guidelines LDL/HDL Ratio 1.7 <3.3 Ratio LDL Cholesterol Patient History Test Date: 06/03/2023 LDL Results: 63 Units: mg/dL % Change: - Test Date: 11/24/2023 LDL Results: 77 Units: mg/dL % Change: +22% Test Date: 05/23/2024 LDL Results: 77 Units: mg/dL % Change: 0% P-TSH reflex to FT4 Reviewed date:05/24/2024 11:29:48 AM Interpretation: Normal Performing Lab: Notes/Report: Test performed by [facility] [address] [place] [address] , [address] , [place] [address] Deshawn Meade MD, Ordnance Truck Installation Mechanic CLIA: [id number] TSH reflex to FT4 3.33 0.43-5.25 mU/L P-Microalbumin/Creatinine, R andom Urine Sample Reviewed date:05/24/2024 11:29:48 AM Interpretation: Normal Performing Lab: Notes/Report: Test performed by [facility] [address] [place] [address] , [place] [address] Deshawn Meade MD, Ordnance Truck Installation Mechanic CLIA: [id number] Albumin/Creatinine Ratio, Urine 4 0-30 ug/m g Microalbumin, Urine, Random 0.3 Creatinine, Urine 76.8 Estimated Average Glucose Reviewed date:05/24/2024 11:29:48 AM Interpretation:177 Performing Lab: Notes/Report: Test performed by [facility], [address] , [address] , [place] [address] Deshawn Meade MD, Ordnance Truck Installation Mechanic CLIA: [id number] Estimated Average Glucose (eAG) 177 Estimated Average Glucose (eAG) is calculated using the equation eAG = (28.7 x HbA1c) - 46.7 based on the guidelines established by the ADA. If the patient has certain diseases including kidney disease, sickle cell anemia, thalassemia, or is taking medications such as dapsone, erythropoietin, or iron, eAG should not be evaluated. REASON FOR VISIT 6 months Medications Medication SIG (Take, Route, Frequency, Duration) Notes Start Date End Date Status Amitriptyline HCl 25 MG 1 tab(s) orally once a day (at bedtime); Duration: 90 days Active Trintellix 20 MG 1 tab(s) orally once a day; Duration: 90 days Active FeroSul 325 (65 Fe) MG TAKE 1 TABLET BY MOUTH THREE TIMES DAILY; Duration: 30 Active clonazePAM 1 MG 1 tab(s) orally 2 ti mes a day as needed 05/19/2024 Active Voquezna 10 MG 1 tablet Orally Once a day 05/03/2024 Active sAXagliptin HCl 5 MG 1 tablet Orally Onc e a day 02/22/2024 Active Synjardy XR 12.5-1000 MG 2 tablets with breakfast Orally Once a day Active guanFACINE HCl 1 MG 1 tablet at bedtime Orally Once a day; Duration: 90 days Active Crestor 10 MG 1 tab(s) orally once a day (at bedtime) Active Irbesartan 150 MG 2 tablets Orally Onc e a day Active Carvedilol 25 MG 1 tablet with food Orally Twice a day Active Calcium 600 + Minerals 600-200 MG-UNIT 1 tab(s) orally 3 times a day; Duration: 30 day(s) Active Multivitamin - 1 tab(s) orally once a day; Duration: 30 day(s) Active hydrALAZINE HCl 25 MG 1 tablet with food Orally Twice a day; Duration: 30 day(s) Active Probiotic - as directed Orally Active Darifenacin Hydrobromide ER 15 MG 1 tablet with liquid Orally Once a day; Duration: 30 day(s) Active Kerendia 10 MG 1 tablet Orally Once a day Active Aspirin 81 MG 1 tablet Orally Once a day; Duration: 30 day(s) Active Problems Problem Type SNOMED Code ICD Code Onset Dates Problem Status W/U Status Risk Notes Problem Chronic anemia (371265939) Chronic anemia (D64.9) Active confirmed Vital Signs Blood pressure systolic 116 mm Hg 05/24/19 25 Blood pressure diastolic 64 mm Hg 025 Heart Rate 63 /min 05/23/2024 Height 66.25 in 05/23/2024 Weight 181 lbs 05/23/2024 BMI 28.99 kg/m2 05/23/2024 Encounters Encounter Location Date Provider Diagnosis [facility] [address] [place], [place] [id number] 05/23/2024 Chase Gunn Type 2 diabetes sky itus without complication E11.9 ; Essential hypertension I10 ; Pure hypercholesterolemia E78.00 ; Stage 3a chronic kidney disease N18.31 ; Gastroesophageal reflux disease without esophagitis K21.9 ; Stage 3b chronic kidney disease N18.32 ; Chronic anemia D64.9 ; BMI 28.0-28.9,adult Z68.28 and Lumbar back pain M54.50 Assessments Encounter Date Diagnosis (ICD Code) Assessment Notes Treatment Notes Treatment Clinical Notes Section Notes 05/23/2024 Type 2 diabetes sky itus without complication (ICD-10 - E11.9) 05/23/2024 Essential hypertensi on (ICD-10 - I10) 05/23/2024 Pure hypercholesterolemia (ICD-10 - E78.00) 05/23/2024 Stage 3a chronic kid alexa disease (ICD-10 - N18.31) 05/23/2024 Gastroesophageal ref lux disease without esophagitis (ICD-10 - K21.9) Symptoms, including cough has improved, patient likely has LPR, plan to continue Voquezna 05/23/2024 Stage 3b chronic kid alexa disease (ICD-10 - N18.32) 05/23/2024 Chronic anemia (ICD- 10 - D64.9) 05/23/2024 BMI 28.0-28.9,adult (ICD-10 - Z68.28) 05/23/2024 Lumbar back pain (IC D-10 - M54.50) Plan Of Treatment Medication Medication Name Sig Start Date Stop Date Notes Voquezna 10 MG 1 tablet Orally Once a day 05/03/2024 sAXagliptin HCl 5 MG 1 tablet Orally Once a day 02/22/2024 Synjardy XR 12.5-1000 MG 2 tablets with breakfast Orally Once a day Crestor 10 MG 1 tab(s) orally once a day (at bedtime) Irbesartan 150 MG 2 tablets Orally Once a day Carvedilol 25 MG 1 tablet with food O rally Twice a day Kerendia 10 MG 1 tablet Orally Once a day Treatment Notes Assessment Notes Gastroesophageal reflux dise ase without esophagitis Symptoms, including cough has improved, patient likely has LPR, plan to continue Voquezna Next Appt Details Follow Up: 6 Months, Reason: Progress Notes * Rosa PERDOMODOB:1950 (74 yo F)Acc No.[id number]:05/23/2024 Progress Notes Patient: Rosa DICKERSON Provider: Alena Gunn M.D. :1950 A ge:73 Y S ex:Female Date:05/23/2024 Address:[address] [place], [place] [id number] Subjective: * Chief Complaints: * 1 . 6 months. * HPI: C ardiology: 73 year old female presents with c/o Blood Pressure Elevated?Pt here for 6 mo f/u on hypertension, states she is doing well and does not have any concerns.? c/o Hyperlipidemia P t is fasting today. E ndocrinology: c/o Recent Blood Sugars P t here to f/u on DM 2. * ROS: D ERMATOLOGY: no R rowan. n o H jaron. G ASTROENTEROLOGY: no N ausea. n o V omiting. U ROLOGY: no D ifficulty urinating. n o B lood in urine. 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 * Surgical History: C holecystectomy , Bilateral Arterial Biopsy - Head - negative 04/11/2020, Brain Anuerysm Removal - [facility] 05/03/2020, EGD - 2015, 2021 , Bladder stimulator 2017, colonoscopy - 2015, 2021, 2023 . * Hospitalization/Major Diagno stic Procedure: B rain Anuerysm 05/03-. * Family History: F ather: , diagnosed with Heart Disease. M other: alive, diagnosed with Hypertension. S iblings: alive. C hildren: alive. 2 sister(s) - healthy. 1 son(s) , 1 daughter(s) - healthy. . * Social History: C URRENT TOBACCO USE S moking Status: P atient does NOT smoke. * Medications: T aking Probiotic - Tablet Delayed Release as directed Orally , Taking hydrALAZINE HCl 25 MG Tablet 1 tablet with food Orally Twice a day , Taking Darifenacin Hydrobromide ER 15 MG Tablet Extended Release 24 Hour 1 tablet with liquid Orally Once a day , Taking Aspirin 81 MG Tablet Delayed Release 1 tablet Orally Once a day , Taking Multivitamin - Tablet 1 tab(s) orally once a day , Taking Calcium 600 + Minerals 600-200 MG-UNIT Tablet 1 tab(s) orally 3 times a day , Taking Kerendia 10 MG Tablet 1 tablet Orally Once a day , Taking guanFACINE HCl 1 MG Tablet 1 tablet at bedtime Orally Once a day , Taking sAXagliptin HCl 5 MG Tablet 1 tablet Orally Once a day , Taking Carvedilol 25 MG Tablet 1 tablet with food Orally Twice a day , Taking Irbesartan 150 MG Tablet 2 tablets Orally Once a day , Taking Synjardy XR 12.5- 1000 MG Tablet Extended Release 24 Hour 2 tablets with breakfast Orally Once a day , Taking FeroSul 325 (65 Fe) MG Tablet TAKE 1 TABLET BY MOUTH THREE TIMES DAILY , Taking Trintellix 20 MG Tablet 1 tab(s) orally once a day , Taking Amitriptyline HCl 25 MG Tablet 1 tab(s) orally once a day (at bedtime) , Taking Crestor 10 MG Tablet 1 tab(s) orally once a day (at bedtime) , Taking Voquezna 10 MG Tablet 1 tablet Orally Once a day , Taking clonazePAM 1 MG Tablet 1 tab(s) orally 2 times a day as needed , Discontinued Nystatin 826330 UNIT/ML Suspension 5 ml Mouth/Throat Three times a day , Discontinued Macrobid 100 MG Capsule 1 capsule with food Orally every 12 hrs , Medication List reviewed and reconciled with the patient * Allergies: P romethazine: sore mouth - Side Effects. Objective: * Vitals: W t:181, Temp:98.1, BP:116/64, HR:63, O2 Sat:94% on RA, Nurse:kimberly, Ht: 66.25, BMI:28.99. * Examination: C ardiology: General Appearance: p leasant, NAD. H eart sounds: R RR, normal S1, S2. L ungs: c lear, no rales or wheezes. E xtremities: n o leg edema. Assessment: * Assessment: 1. T ype 2 diabetes mellitus without complication - E11.9 (Primary) 2 . E ssential hypertension - I10 3 . P ure hypercholesterolemia - E78.00 ?4. S tage 3a chronic kidney disease - N18.31 5 . G astroesophageal reflux disease without esophagitis - K21.9 6 . S tage 3b chronic kidney disease - N18.32 7 . C hronic anemia - D64.9 8 . B W[place] 28.0-28.9,adult - Z68.28 9 . L umbar back pain - M54.50 Plan: * Treatment: Value Reference Range A /G Ratio 1.6 1.1-2.5 - * A lbumin 4.0 3.5-5.3 - g/dL * A lkaline Phosphatase 106 35-121 - IU/L * A LT (SGPT) 20 <5-47 - IU/L * A ST (SGOT) 22 <5-40 - IU/L * B ilirubin, Total 0.3 <0.2-1.2 - mg/dL * B UN 25 H 8-23 - mg/dL * C alcium 9.8 8.6-10.4 - mg/dL * C hloride 101 97-108 - mmol/L * C O2 25 22-32 - mmol/L * C reatinine 1.24 H 0.50-1.00 - mg/dL * G lucose 132 H 65-99 - mg/dL * P otassium 5.3 3.5-5.3 - mmol/L * S odium 141 135-145 - mmol/L * P rotein 6.5 6.0-8.3 - g/dL * e GFR by Creatinine 46 L >59 - mL/min/1.73m2 * Cyndy Shelton 05/24/2024 11: 29:38 AM > See phone encounter ?LAB: P-Hemoglobin A1C (Collection Date & Time - 05/23/2024 10:01 AM)?7.8* Value Reference Range H emoglobin A1C 7.8 H <5.7 - % * Cyndy Shelton 05/24/2024 11: 29:38 AM > See phone encounter ?LAB: P-TSH reflex to FT4 (Collection Date & Time - 05/23/2024 10:01 AM)? Normal* Value Reference Range T SH reflex to FT4 3.33 0.43-5.25 - mU/L * Cyndy Shelton 05/24/2024 11: 29:38 AM > See phone encounter ?LAB: P-Microalbumin/Creatinine, Random Urine Sample (Collection Date & Time - 05/23/2024 10:01 AM)?Normal* Value Reference Range A lbumin/Creatinine Ratio, Urine 4 0-30 - ug /mg * C reatinine, Urine 76.8 - mg/dL * M icroalbumin, Urine, Random 0.3 - mg/dL * Cyndy Shelton 05/24/2024 11: 29:38 AM > See phone encounter 2.?Essential hypertension? Continue Carvedilol Tablet, 25 MG, 1 tablet with food, Orally, Twice a day;?Continue Irbesartan Tablet, 150 MG, 2 tablets, Orally, Once a day.?LAB: P-Comprehensive Metabolic Panel (CMP) (Collection Date & Time - 05/23/2024 10:01 AM)?glu 132, BUN 25, creat 1.24, eGFR 46* Value Reference Range A /G Ratio 1.6 1.1-2.5 - * A lbumin 4.0 3.5-5.3 - g/dL * A lkaline Phosphatase 106 35-121 - IU/L * A LT (SGPT) 20 <5-47 - IU/L * A ST (SGOT) 22 <5-40 - IU/L * B ilirubin, Total 0.3 <0.2-1.2 - mg/dL * B UN 25 H 8-23 - mg/dL * C alcium 9.8 8.6-10.4 - mg/dL * C hloride 101 97-108 - mmol/L * C O2 25 22-32 - mmol/L * C reatinine 1.24 H 0.50-1.00 - mg/dL * G lucose 132 H 65-99 - mg/dL * P otassium 5.3 3.5-5.3 - mmol/L * S odium 141 135-145 - mmol/L * P rotein 6.5 6.0-8.3 - g/dL * e GFR by Creatinine 46 L >59 - mL/min/1.73m2 * Cyndy Shelton 05/24/2024 11: 29:38 AM > See phone encounter 3.?Pure hypercholesterolemia? Continue Crestor Tablet, 10 MG, 1 tab(s), orally, once a day (at bedtime).?LAB: P-Comprehensive Metabolic Panel (CMP) (Collection Date & Time - 05/23/2024 10:01 AM)?glu 132, BUN 25, creat 1.24, eGFR 46* Value Reference Range A /G Ratio 1.6 1.1-2.5 - * A lbumin 4.0 3.5-5.3 - g/dL * A lkaline Phosphatase 106 35-121 - IU/L * A LT (SGPT) 20 <5-47 - IU/L * A ST (SGOT) 22 <5-40 - IU/L * B ilirubin, Total 0.3 <0.2-1.2 - mg/dL * B UN 25 H 8-23 - mg/dL * C alcium 9.8 8.6-10.4 - mg/dL * C hloride 101 97-108 - mmol/L * C O2 25 22-32 - mmol/L * C reatinine 1.24 H 0.50-1.00 - mg/dL * G lucose 132 H 65-99 - mg/dL * P otassium 5.3 3.5-5.3 - mmol/L * S odium 141 135-145 - mmol/L * P rotein 6.5 6.0-8.3 - g/dL * e GFR by Creatinine 46 L >59 - mL/min/1.73m2 * Cyndy Shelton 05/24/2024 11: 29:38 AM > See phone encounter ?LAB: P-Lipid Panel (Collection Date & Time - 05/23/2024 10:01 AM)?Normal* Value Reference Range C holesterol / HDL Ratio 3.20 0.00-4.44 - Ratio * C holesterol 144 <200 - mg/dL * H DL Cholesterol 45 >39 - mg/dL * L DL Cholesterol (Calculation) 77 <130 - mg/d L * L DL/HDL Ratio 1.7 <3.3 - Ratio * N on-HDL Cholesterol 99 <130 - mg/dL * T riglycerides 111 <150 - mg/dL * Nikita Cyndy 05/24/2024 11: 29:38 AM > See phone encounter 4.?Stage 3a chronic kidney disease? Continue Kerendia Tablet, 10 MG, 1 tablet, Orally, Once a day.?LAB: P-Comprehensive Metabolic Panel (CMP) (Collection Date & Time - 05/23/2024 10:01 AM)?glu 132, BUN 25, creat 1.24, eGFR 46* Value Reference Range A /G Ratio 1.6 1.1-2.5 - * A lbumin 4.0 3.5-5.3 - g/dL * A lkaline Phosphatase 106 35-121 - IU/L * A LT (SGPT) 20 <5-47 - IU/L * A ST (SGOT) 22 <5-40 - IU/L * B ilirubin, Total 0.3 <0.2-1.2 - mg/dL * B UN 25 H 8-23 - mg/dL * C alcium 9.8 8.6-10.4 - mg/dL * C hloride 101 97-108 - mmol/L * C O2 25 22-32 - mmol/L * C reatinine 1.24 H 0.50-1.00 - mg/dL * G lucose 132 H 65-99 - mg/dL * P otassium 5.3 3.5-5.3 - mmol/L * S odium 141 135-145 - mmol/L * P rotein 6.5 6.0-8.3 - g/dL * e GFR by Creatinine 46 L >59 - mL/min/1.73m2 * Cyndy Shelton 05/24/2024 11: 29:38 AM > See phone encounter 5.?Gastroesophageal reflux disease without esophagitis? Continue Voquezna Tablet, 10 MG, 1 tablet, Orally, Once a day.?? Notes: Symptoms, including cough has improved, patient likely has LPR, plan to continue Voquezna ? * Labs: * L ab: Estimated Average Glucose (Collection Date & Time - 05/23/2024 10:01 AM) 1 77 Value Reference Range E stimated Average Glucose 177 - mg/dL * [facility], IT support 05/24/2024 08:40:06 : This order was created by the Interface. Cyndy Shelton 05/24/2024 11:29:38 AM > See phone encounter * Procedure Codes: G 2211 Complex e/m visit add on, 3051F HG A1C>EQUAL 7.0%<8.0%, G8752 MOST RECENT SYSTOLIC BP < 140MM HG, G8754 MOST RECENT DIASTOLIC BP < 90MM HG * Follow Up: 6 Months * Images: Billing Information: * Visit Code: 10773 Office Visit, Est Pt., Level 4. * Procedure Codes: G2211 Complex e/m visit add on. 3051F HG A1C>EQUAL 7.0%<8.0%. G8752 MOST RECENT SYSTOLIC BP < 140MM HG. G8754 MOST RECENT DIASTOLIC BP < 90MM HG. * Electronic signature of Cora Gunn MD on 02/07/2025 at 08:51 AM EST Sign off status: Pending * Provider: Alena Gunn M.D. Date: 0 05/23/2024 Generated for Ying mcnamara/Matilda/Gracysmitting on: 1 08:51 AM EST History and Physical Notes * HPI (History of Present Illness) Category Sub-Category Detail Notes Category Not es Endocrinology Recent Blood Sugars Pt here to f/u on DM 2 Cardiology Blood Pressure Elevated Pt here for 6 mo f/u on hypertension, states she is doing well and does not have any concerns Hyperlipidemia Pt is fasting today Examination Category Sub-Category Detail Notes Category Not es Cardiology Lungs: clear, no rales or wheezes Heart sounds: RRR, normal S1, S2 Extremities: no leg edema General Appearance: pleasant, NAD
--- OUTSIDE RECORDS SUMMARY | 2024-06-21 06:15 | XMS_ITS ---
Author Organization [facility] Address [address] [facility] [address] [phone] Care Team Providers Care Litigation Examiner Name Role Phone Chase Gunn Primary Care [...] W/U Status Risk Notes Problem Chronic pain (09376641) Other chronic pain (G89.29) Active confirmed Problem Arthritis of right knee (7555330605014 102) Arthritis of right knee (M17.11) Active confirmed Problem Body mass index 30+ - obesity (880686586) BMI 30.0-30.9,adul t (Z68.30) Active confirmed Vital Signs Blood pressure systolic 112 mm Hg 06/22/19 25 Blood pressure diastolic 68 mm Hg 025 Heart Rate 62 /min 06/21/2024 Height 66.25 in 06/21/2024 Weight 188.2 lbs 06/21/2024 BMI 30.14 kg/m2 06/21/2024 Encounters Encounter Location Date Provider Diagnosis [facility] [address] [facility] [address] [phone] 06/21/2024 Chase [place] Pain in right knee M 25.561 ; [...] Notes * Rosa PERDOMODOB:1950 (74 yo F)Acc No.[id number]:06/21/2024 Physical Patient: Rosa DICKERSON Provider: Alena Gunn M.D. :1950 A ge:73 Y S ex:Female Date:06/21/2024 Address:[address] [place], [place] [id number] Subjective: * Chief Complaints: * 1 . 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 * Surgical History: C holecystectomy , Bilateral Arterial Biopsy - Head - negative 04/11/2020, Brain Anuerysm Removal - [facility] 05/03/2020, EGD - 2015, 2021 , Bladder [...] ixed incontinence - N39.46 1 0. B MT 30.0-30.9,adult - Z68.30 ? Plan: * Treatment: [...] * Images: Billing Information: * Visit Code: 26623 Office Visit, Est Pt., Level 4. * Procedure Codes: G2211 Complex e/m visit add on. 3051F HG A1C>EQUAL 7.0%<8.0%. G8420 BMI<30 AND >=22 CALC & DOCU. G8752 MOST RECENT SYSTOLIC BP < 140MM HG. G8754 MOST RECENT DIASTOLIC BP < 90MM HG. * Electronic signature of Cora Gunn MD on 02/07/2025 at 08:52 AM EST Sign off status: Pending * Provider: Alena Gunn M.D. Date: 0 06/21/2024 Generated for Ying mcnamara/Matilda/Mio on: 1 08:52 AM EST History and Physical Notes * [...]
--- OUTSIDE RECORDS SUMMARY | 2024-07-11 06:15 | XMS_ITS ---
Author Organization [facility] Address [address] [facility] [address] [id number] Care Team Providers Care Privacy Analyst Name Role Phone Chase Gunn Primary Care [...] Risk Notes Problem Overactive urinary bladder (disorder) (035922617) OAB (overactiv e bladder) (N32.81) Active confirmed Vital Signs Blood pressure systolic 110 mm Hg 07/12/19 25 Blood pressure diastolic 70 mm Hg 025 Heart Rate 62 /min 07/11/2024 Height 66.25 in 07/11/2024 Weight 187.8 lbs 07/11/2024 BMI 30.08 kg/m2 07/11/2024 Encounters Encounter Location Date Provider Diagnosis [facility] [address] [facility] [address] [place], [place] [phone] 07/11/2024 Chase [place] Persistent cough R05 .3 ; Gastroesophageal reflux [...] Notes * Rosa PERDOMODOB:1950 (74 yo F)Acc No.[id number]:07/11/2024 Progress Notes Patient: Rosa DICKERSON Provider: Alena Gunn M.D. :1950 A ge:73 Y S ex:Female Date:07/11/2024 Address:[address] [place], [place] [id number] Subjective: * Chief Complaints: * 1 . 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 * Surgical History: C holecystectomy , Bilateral Arterial Biopsy - Head - negative 04/11/2020, Brain Anuerysm Removal - [facility] 05/03/2020, EGD - 2015, 2021 , [...] (overactive bladder) - N32.81 5 . B [place] 30.0-30.9,adult - Z68.30 Plan: * Treatment: Value [...] G 2211 Complex e/[place], [address] CAPILLARY BLOOD DRAW, 16649 CBC WITH AUTO DIFF, G8950 PREHTN/HTN BP DOC INDCD F/U DOC, G8752 MOST RECENT SYSTOLIC BP < 140MM HG, G8754 MOST RECENT DIASTOLIC BP < 90MM HG, 1036F TOBACCO NON-USER * Follow Up: v ia phone to report test results * Images: Billing Information: * Visit Code: 41697 Office Visit, Est Pt., Level 4. * Procedure Codes: G2211 Complex e/[place]. [address] CAPILLARY BLOOD DRAW. 57773 CBC WITH AUTO DIFF. G8950 PREHTN/HTN BP DOC INDCD F/U DOC. G8752 MOST RECENT SYSTOLIC BP < 140MM HG. G8754 MOST RECENT DIASTOLIC BP < 90MM HG. 1036F TOBACCO NON-USER. * Electronic signature of Cora Gunn MD on 02/07/2025 at 08:55 AM EST Sign off status: Pending * Provider: Alena Gunn M.D. Date: 0 07/11/2024 Generated for Ying mcnamara/Matilda/Mio on: 08:55 AM EST History and Physical Notes * [...]
--- OUTSIDE RECORDS SUMMARY | 2024-09-07 05:15 | XMS_ITS ---
Author Organization [facility] Address [address] [facility] [address] [id number] Care Team Providers Care Glaucoma Specialist Name Role Phone Chase Gunn Primary Care Provider Allergies Allergen (clinical drug ingredient) Drug/Non Drug Allergy documented on EMR Reaction Allergy Type Onset Date Status promethazine Promethazine sore mouth Drug Allergy Active REASON FOR VISIT [facility] ER f/u Medications Medication SIG (Take, Route, Frequency, Duration) Notes Start Date End Date Status Trintellix 20 MG 1 tab(s) orally once a day; Duration: 90 days Active clonazePAM 1 MG 1 tab(s) orally 2 ti mes a day as needed; Duration: 30 days 08/17/2024 Active valACYclovir HCl 1 GM 1 tablet Orally On ce a day Active Dicloxacillin Sodium 500 MG 1 capsule 1 hour before or 2 hours after meals Orally every 6 hrs Active Gabapentin 300 MG 1 capsule Orally Onc e a day Active Carvedilol 25 MG 1 tablet with food Orally Twice a day; Duration: 90 days Active Amitriptyline HCl 25 MG 1 tablet at bedt samantha orally once a day (at bedtime); Duration: 90 days Active Crestor 10 MG 1 tab(s) orally once a day (at bedtime); Duration: 90 days Active Gemtesa 75 MG 1 tablet Orally Once a day; Duration: 90 days 07/11/2024 Active FeroSul 325 (65 Fe) MG TAKE 1 TABLET BY MOUTH THREE TIMES DAILY; Duration: 30 days Active guanFACINE HCl 1 MG 1 tablet at bedtime Orally Once a day; Duration: 90 days Active Voquezna 10 MG 1 tablet Orally Once a day; Duration: 90 days 05/03/2024 Active Kerendia 10 MG 1 tablet Orally Once a day; Duration: 90 days Active Synjardy XR 12.5-1000 MG 2 tablets with breakfast Orally Once a day; Duration: 30 days Active sAXagliptin HCl 5 MG 1 tablet Orally Onc e a day 02/22/2024 Active Darifenacin Hydrobromide ER 15 MG 1 tablet with liquid Orally Once a day; Duration: 30 day(s) Active Irbesartan 150 MG 2 tablets Orally Onc e a day Active Multivitamin - 1 tab(s) orally once a day; Duration: 30 day(s) Active Calcium 600 + Minerals 600-200 MG-UNIT 1 tab(s) orally 3 times a day; Duration: 30 day(s) Active Aspirin 81 MG 1 tablet Orally Once a day; Duration: 30 day(s) Active hydrALAZINE HCl 25 MG 1 tablet with food Orally Twice a day; Duration: 30 day(s) Active Iberogast - as directed Orally Active Probiotic - as directed Orally Active Beano Meltaways 450 UNIT as directed Orally Active Vital Signs Blood pressure systolic 122 mm Hg 09/08/19 25 Blood pressure diastolic 68 mm Hg 025 Heart Rate 80 /min 09/07/2024 Height 66.25 in 09/07/2024 Weight 186.2 lbs 09/07/2024 BMI 29.82 kg/m2 09/07/2024 Encounters Encounter Location Date Provider Diagnosis [facility] [address] [place] [id number] 09/07/2024 Chase Gunn Herpes zoster withou t complication B02.9 and BMI 29.0-29.9,adult Z68.29 Assessments Encounter Date Diagnosis (ICD Code) Assessment Notes Treatment Notes Treatment Clinical Notes Section Notes 09/07/2024 Herpes zoster without complication (ICD-10 - B02.9) 09/07/2024 BMI 29.0-29.9,adult (ICD-10 - Z68.29) Plan Of Treatment Medication Medication Name Sig Start Date Stop Date Notes valACYclovir HCl 1 GM 1 tablet Orally Once a day Dicloxacillin Sodium 500 MG 1 capsule 1 hour before or 2 hours after meals Orally every 6 hrs Gabapentin 300 MG 1 capsule Orally Once a day Next Appt Details Follow Up: via phone to junie rt progress, Reason: Progress Notes * Rosa PERDOMODOB:1950 (74 yo F)Acc No.[id number]:09/07/2024 Progress Notes Patient: Rosa DICKERSON Provider: Alena Gunn M.D. :1950 A ge:73 Y S ex:Female Date:09/07/2024 Address:[address] [place], [place] [id number] Subjective: * Chief Complaints: * 1 . [facility] ER f/u. * HPI: H PI: 73 year old female presents with c/o Here for follow up on:?09/03/2024 [facility] er visit. Pt went to er for a painful rash on her rt calf and was dx with Shingles. Pt rx'd Dicloxacillin 500mg, Valacyclovir 1 gram and Gabapentin 300 mg. Pt states she no longer has any pain in calf. * ROS: D ERMATOLOGY: no R rowan. n o H jaron. G ASTROENTEROLOGY: no N ausea. n o V omiting. U ROLOGY: no D ifficulty urinating. n o B lood in urine. 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 * Surgical History: C holecystectomy , Bilateral Arterial Biopsy - Head - negative 04/11/2020, Brain Anuerysm Removal - [facility] 05/03/2020, EGD - 2015, 2021 , Bladder [...] . * Social History: C URRENT TOBACCO USE: No . * Medications: T aking Gabapentin 300 MG Capsule 1 capsule Orally Once a day , Taking valACYclovir HCl 1 GM Tablet 1 tablet Orally Once a day , Taking Dicloxacillin Sodium 500 MG Capsule 1 capsule 1 hour before or 2 hours after meals Orally every 6 hrs , Taking Beano Meltaways 450 UNIT Tablet Disintegrating as directed Orally , Taking Iberogast - Capsule as directed Orally , Taking Probiotic - Tablet Delayed Release [...] orally 3 times a day , Taking Irbesartan 150 MG Tablet 2 tablets Orally Once a day , Taking sAXagliptin HCl 5 MG Tablet 1 tablet Orally Once a day , Taking Kerendia 10 MG Tablet 1 tablet Orally Once a day , Taking Synjardy XR 12.5-1000 MG Tablet Extended Release 24 Hour 2 tablets with breakfast Orally Once a day , Taking guanFACINE HCl 1 MG Tablet 1 tablet at bedtime Orally Once a day , Taking Voquezna 10 MG Tablet 1 tablet Orally Once a day , Taking Carvedilol 25 MG Tablet 1 tablet with food Orally Twice a day , Taking Gemtesa 75 MG Tablet 1 tablet Orally Once a day , Taking FeroSul 325 (65 Fe) MG Tablet TAKE 1 TABLET BY MOUTH THREE TIMES DAILY , Taking Amitriptyline HCl 25 MG Tablet 1 tablet at bedtime orally once a day (at bedtime) , Taking Crestor 10 MG Tablet 1 tab(s) orally once a day (at bedtime) , Taking Trintellix 20 MG Tablet 1 tab(s) orally once a day , Taking clonazePAM 1 MG Tablet 1 tab(s) orally 2 times a day as needed , Medication List reviewed and reconciled with the patient * Allergies: P romethazine: sore mouth - Side Effects. Objective: * Vitals: W t: 186.2, Temp: 97.8, BP: 122/68, HR: 80, Nurse: kimberly, Ht: 66.25, BMI:29.82. * Examination: G eneral Examination: General Appearance: N AD. S kin: s urgical wound over right anterior knee is well healed, rash on lower right calf seems to be drying up and healing.? Assessment: * Assessment: 1. H erpes zoster without complication - B02.9 (Primary) 2 . B VA 29.0-29.9,adult - Z68.29 Plan: * Treatment: * Procedure Codes: G 2211 Complex e/m visit add on, G8420 BMI<30 AND >=22 CALC & DOCU, G8783 BP SCR PRFRM RCMDD DEFIND SCR INTVL, G8752 MOST RECENT SYSTOLIC BP < 140MM HG, G8754 MOST RECENT DIASTOLIC BP < 90MM HG * Follow Up: v ia phone to report progress * Images: Billing Information: * Visit Code: 47031 Office Visit, Est Pt., Level 3. * Procedure Codes: G2211 Complex e/m visit add on. G8420 BMI<30 AND >=22 CALC & DOCU. G8783 BP SCR PRFRM RCMDD DEFIND SCR INTVL. G8752 MOST RECENT SYSTOLIC BP < 140MM HG. G8754 MOST RECENT DIASTOLIC BP < 90MM HG. * Electronic signature of Cora Gunn MD on 02/07/2025 at 08:53 AM EST Sign off status: Pending * Provider: Alena Gunn M.D. Date: 0 09/07/2024 Generated for Ying mcnamara/Matilda/eTransmitting on: 08:53 AM EST History and Physical Notes * HPI (History of Present Illness) Category Sub-Category Detail Notes Category Not es HPI Here for follow up on: 5 [facility] er visit. Pt went to er for a painful rash on her rt calf and was dx with Shingles. Pt rx'd Dicloxacillin 500mg, Valacyclovir 1 gram and Gabapentin 300 mg. Pt states she no longer has any pain in calf Examination Category Sub-Category Detail Notes Category Not es General Examination General Appearance: NAD Skin: surgical wound over right anterior knee is well healed, rash on lower right calf seems to be drying up and healing
--- OUTSIDE RECORDS SUMMARY | 2024-11-22 05:30 | XMS_ITS ---
Author Organization [facility] Address [address] [facility] [address] [phone] Care Team Providers Care Or Scrub Tech Name Role Phone Chase Gunn Primary Care Provider [phone] Allergies Allergen (clinical drug ingredient) Drug/Non Drug [...] HCl 25 MG 1 tablet at bedt samatnha orally once a day (at bedtime); Duration: [...] older) IM Intramuscular 11/22/2024 Administered Vital Signs Blood pressure systolic 120 mm Hg 11/23/19 25 Blood pressure diastolic 68 mm Hg 025 Heart Rate 80 /min 11/22/2024 Height 66.25 in 11/22/2024 Weight 192.8 lbs 11/22/2024 BMI 30.88 kg/m2 11/22/2024 Encounters Encounter Location Date Provider Diagnosis [facility] [address] [place], [place] [phone] 11/22/2024 Chase Gunn Type 2 diabetes sky [...] Notes * Rosa PERDOMODOB:1950 (74 yo F)Acc No.[id number]:11/22/2024 Progress Notes Patient: Rosa DICKERSON Provider: Alena Gunn M.D. :1950 A ge:73 Y S ex:Female Date:11/22/2024 Address:[address] [place], [place] [id number] Subjective: * Chief Complaints: * 1 . 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 * Surgical History: C holecystectomy , Bilateral Arterial Biopsy - Head - negative 04/11/2020, Brain Anuerysm Removal - [facility] 05/03/2020, EGD - 2015, 2021 , Bladder [...] G 2211 Complex e/[place], [address] GLUCOSE TEST, 33292 CAPILLARY BLOOD DRAW, 19658 GLYCATED HEMOGLOBIN TEST, Modifiers: QW , 3052F HG A1C>EQUAL 8.0%<EQUAL 9.0%, 1036F TOBACCO NON-USER, G8950 PREHTN/HTN BP DOC INDCD F/U DOC, G8752 MOST RECENT SYSTOLIC BP < 140MM HG, G8754 MOST RECENT DIASTOLIC BP < 90MM HG, 3074F SYST BP LT 130 MM HG, 3078F DIAST BP < 80 MM HG * Follow Up: 6 Months * Images: Billing Information: * Visit Code: 62859 Office Visit, Est Pt., Level 4. * Procedure Codes: G2211 Complex e/[place]. [address] GLUCOSE TEST. 62969 CAPILLARY BLOOD DRAW. 03568 GLYCATED HEMOGLOBIN TEST. Modifiers: QW 3052F HG [...] M.D. Date: Generated for Ying mcnamara/Matilda/Ericitting on: 08:51 AM EST History and Physical Notes [...]
--- OUTSIDE RECORDS SUMMARY | 2024-12-04 03:45 | XMS_ITS ---
Author Organization [facility] Address 1210 [facility] [address] [phone] Care Team Providers Care Biological Technical Officer Name Role Phone Luis A Chase Primary [...] Administered Encounters Encounter Location Date Provider Diagnosis [facility] [address] [place], [place] [phone] 12/04/2024 Chase Gunn Encounter for immunization Z23 Assessments Encounter Date Diagnosis (ICD Code) Assessment Notes Treatment Notes Treatment Clinical Notes Section Notes 12/04/2024 Encounter for immunization (ICD-10 - Z23) Plan Of Treatment No Information Progress Notes * Rosa PERDOMODOB:1950 (74 yo F)Acc No.[id number]:12/04/2024 Patient: Rosa DICKERSON Provider: Alena Gunn M.D. :1950 A ge:73 Y S ex:Female Date:12/04/2024 Address:[address] [place], [place] [address] Subjective: * Chief Complaints: * 1 . [...] (Route: Intramuscular) given by CHRISTIANE Eric , Manager Business Management on Right Deltoid (Encounter for immunization) * Images: Billing Information: * Visit Code: * Procedure Codes: * Electronic signature of Cora Gunn MD on 02/07/2025 at 08:54 AM EST Sign off status: Pending * Provider: Alena Gunn M.D. Date: Generated for Ying mcnamara/Matilda/Mio on: 08:54 AM EST
--- OUTSIDE RECORDS SUMMARY | 2024-12-27 08:31 | XMS_ITS ---
Author Organization [facility] Address 1210 [facility] [address] [phone] Care Team Providers Care Health Information Clerk Name Role Phone Chase Gunn Primary Care Provider Reason For Referral Diagnosis 1 Other dysphagia (R13 .19) Referral Organization [facility] Referring Provider First Name Chase Referring Provider Last Name Luis A Referring Provider [facility] Referred Provider ENT, . Referred Provider Specialty ENT General Notes Letitia Osei 2024 02:41:20 PM > faxed to [facility] Farnaz EDWARDS Brynn 01/05/2025 09:38:55 AM > 01/29/2025 at 02:40pm Referral Priority Routine REASON FOR VISIT Needs referral Encounters Encounter Location Date Provider Diagnosis [facility] [address] [id number] 12/27/2024 Chase Gunn Other dysphagia R13. 19 Assessments Encounter Date Diagnosis (ICD Code) Assessment Notes Treatment Notes Treatment Clinical Notes Section Notes 12/27/2024 Other dysphagia (ICD-10 - R13.19) Plan Of Treatment Referrals Referral Date Details 01/03/2025 01/03/2025, . ENT Progress Notes * Rosa PERDOMODOB:1950 (74 yo F)Acc No.[id number]:12/27/2024 Patient: Rosa DICKERSON :1950 A ge:74 Y S ex:Female Address:[address] [place], [address] Subjective: * Chief Complaints: * N eeds referral * Medical History: * Surgical History: * Hospitalization/Major Diagno stic Procedure: * Medications: Objective: * Vitals: * Physical Examination: Assessment: * Assessment: 1. O ther dysphagia - R13.19 (Primary) Plan: * Treatment: * Procedure Codes: * true * Date: Generated for Ying mcnamara/Matilda/eTransmitting on: 08:51 AM EST Consultation Request Notes Referral Date Referring Provider Referred Provider Not es 01/03/2025 Chase Gunn ENT, .
--- OUTSIDE RECORDS SUMMARY | 2025-01-10 | XMS_ITS | Encounter Summary ---
Author Organization [facility] Address [address] [place] [address] Care Team Providers Care Material Distributor Name Role Phone Chase Gunn MD Primary Care Provider [phone] Encounter Details Date Type Department Care Team (Latest Contact Info) Description 01/10/2025 - 01/10/2025 11:[address] [facility] Hospital Encounter Image Record Center [address] [place] [phone] Examination Discharge Disposition: Home or Self Care [...] any time in the past 12 [facility], were you homeless or living in a jail (including now)? No 01/16/2025 [facility] Utilities Answer Date Recorded In the past 12 months has th e [employer], [employer], oil, or water company threatened to shut off services in your home? No 01/16/2025 Comments Unknown Sex and Gender Information Value Date Recorded Sex Assigned at Not on file Legal Sex Female 6:06 PM EDT Gender Identity Not on file Sexual Orientation Not on file documented as of this encounter Mental Status * Score Answer Entry Date Author 13.95 01/17/2025 12:33 AM EST Adt, Aut o Complete Hov Contacts documented in this encounter Medications at Time of Discharge amitriptyline (Elavil) 25 MG tablet Take 1 tablet by mouth 1 time each day. aspirin 81 MG EC tablet Take 1 tablet by mouth 1 time each day. carvedilol (Coreg) 25 MG tablet Take 1 tablet by mouth 2 times a day with meals. darifenacin (Enablex) 15 MG 24 hr tablet 1 (one) time each day at the same time. 01/28/2024 empagliflozin-metFO RMIN ER (Synjardy XR) 12.5-1000 MG 24 hr tablet Take 2 tablets by mouth daily with breakfast. mirabegron ER (Myrbetriq) 50 MG tablet Take 1 tablet by mouth daily. 12/07/2024 03/07/19 26 nystatin (Mycostatin) 207907 UNIT/ML suspension 04/21/2024 pioglitazone (Actos) 30 MG tablet Take 1 [...] Care Team (Late st Contact Info) Description 02/14/2025 1:00 PM EST Office Visit [facility] [address] [place] [address] Asher Sinha MD [address] [facility] [address] [place] [address] 03/27/2025 8:30 AM EST Consult [facility] [address] [place] [address] Fransisco Farley MD [address] [place] [address] documented as of this encounter Procedures Procedure [...] examination documented in this encounter Care Teams Material Distributor Relationship Specialty [place] [id number] PCP - General 06/21/20 documented as of this encounter
--- OUTSIDE RECORDS SUMMARY | 2025-01-10 05:00 | XMS_ITS ---
Author Organization [facility] Address [address] [facility] [address] [place] [phone] Care Team Providers Care Crm Business Analyst Name Role Phone Chase Gunn Primary Care Provider [phone] Allergies Allergen (clinical drug ingredient) Drug/Non Drug Allergy documented on EMR Reaction Allergy Type Onset Date Status promethazine Promethazine sore mouth Drug Allergy Active REASON FOR VISIT BP high Encounters Encounter Location Date Provider Diagnosis L[place] 1210 [facility] [address] [place] [phone] 01/10/2025 Chase Gunn Plan Of Treatment No Information Progress Notes * Rosa PERDOMODOB:1950 (74 yo F)Acc No.[id number]:01/10/2025 Progress Notes Patient: Rosa DICKERSON Provider: Alena Gunn M.D. :1950 A ge:74 Y S ex:Female Date:01/10/2025 Address:[address] [place], [place] [id number] Subjective: * Chief Complaints: * 1 . BP high. * HPI: C ardiology: 74 year old female presents with c/o Blood Pressure Elevated.? 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 * Surgical History: C holecystectomy , Bilateral Arterial Biopsy - Head - negative 04/11/2020, Brain Anuerysm Removal - [employer] - [place] 05/03/2020, EGD - 2015, 2021 [...] Date: 03/13/2024 Generated for Ying mcnamara/Matilda/Ericitting on: 08:51 AM EST History and Physical Notes * HPI (History of Present Illness) Category Sub-Category Detail Notes Category Not es Cardiology Blood Pressure Elevated
--- OUTSIDE RECORDS SUMMARY | 2025-01-15 21:57 | XMS_ITS | Encounter Summary ---
Author Organization Healthcare Address [address] [place] [address] Care Team Providers Care Script Artist Name Role Phone Chase Gunn MD Primary Care Provider [phone] Reason for Referral * Consultation (Routine) - Authorized Specialty Diagnoses / Procedures Referred By Contac t Referred To Contact Infectious Diseases Diagnoses MRSA bacteremia Postoperative sepsis (CMS/HCC) Merlin Massey MD [address] [place] [address] Phone: tel: fax: Referral ID Status Reason Start Date Expiration Date Visits Requested Visits Authorized [id number] Authorized Specialty Services Required 5 07/25/2026 1 1 * Consultation (Routine) - Authorized Specialty Diagnoses / Procedures Referred By Contac t Referred To Contact Neurosurgery Diagnoses MRSA bacteremia Postoperative sepsis ([facility]/HCC) Merlin Massey MD [address] [place] [address] Phone: tel: fax: Referral ID Status Reason Start Date Expiration Date Visits Requested Visits Authorized [id number] Authorized Specialty Services Required 5 07/25/2026 1 1 Scheduling Instructions Fransisco Farley MD- s/p Spinal stimulator explant Reason for Visit * Auth/Cert (Routine) Specialty Diagnoses / Procedures Referred By Contac t Referred To Contact Diagnoses Sepsis ([facility]) infected spinal cord stimulator, MRSA Demar Jiménez MD [address] [place] [address] Phone: tel: fax: [facility] Inpatient [address] [place] [address] Referral ID Status Reason Start Date Expiration Date Visits Re quested Visits Authorized [id number] 1 1 Encounter Details Date Type Department Care Team (Latest Contact Info) Description 01/15/2025 9:57 PM EST - 01/23/2025 1:13 PM EST Hospital Encounter [facility] Inpatient [address] [place] [address] Fransisco Farley MD [address] [place] [address] Demar Jiménez MD [address] [place] [address] lCeve Deleon MD [address] [place] [address] Merlin Massey MD [address] [place] [address] MRSA bacteremia (Primary Dx); Postoperative sepsis ([facility]) [T81.44XA]; Cellulitis of back except buttock Discharge Disposition: Snf Facility Social History Tobacco Use Types Packs/Day [...] any time in the past 12 m [facility], were you homeless or living in a long-term (including now)? No 01/16/2025 [facility] Utilities Answer Date Recorded In the [...] Assessment Author Discharge Facility/Level of Care Needs 3-Snf Facility 01/23/2025 10:09 AM Amanda Ford RN Equipment Needed After Discharge other (see comments) 01/23/2025 10:09 AM Amanda Ford RN Discharge Coordination/Progress Going to [facility] 01/23/2025 10:09 AM Amanda Ford RN Equipment Currently Used at Home walker, rollator;shower chair 01/23/2025 10:09 AM Amanda Ford RN Current Outpatient/Agency/Support Group clinic(s);DME 01/23/2025 10:09 AM Amanda Ford RN Anticipated Changes Related to Illness none 01/23/2025 10:09 AM Amanda Ford RN Concerns Comments Patient is going to [facility] where they can assist with care coordination. 01/23/2025 10:09 AM Amanda Ford RN Transportation Anticipated other (see comments) 01/23/2025 10:09 AM Amanda Ford RN Outpatient/Agency/Support Group Needs fpc facility;OT, PT, MANAGER LOCAL 01/23/2025 10:09 AM Amanda Ford RN Transportation [...] RN Patient/Family Anticipated Services at Transition rehabilitation services;fpc 01/23/2025 10:09 AM Amanda Ford RN Patient's Choice of Community Agency(s) [facility] 01/23/2025 10:09 AM Amanda [...] RN What day is the transport expected? [id number] 01/23/2025 10:09 AM Amanda Ford RN What time is the transport expected? [id number] 01/23/2025 10:09 AM Amanda Ford RN Who [...] Care Question Answer Date of Assessment Author Merchandising Manager N/A 01/18/2025 11:05 AM Dianelys Guan Family/Caregiver [...] Answer Date of Assessment Author Level of [place] Dependent 01/18/2025 11:00 AM Dianelys Benson Physical/Nonphysical Assist Verbal Cues;Nonverbal cues (demo/gestures);Maxim al cues;Additional assist utilized for safety 01/18/2025 11:00 AM Dianelys Benson * Bed Mobility Exam: Supine to Sit Question Answer Date of Assessment Author Level of [place] Moderate assist (5 0% patient's effort) 01/18/2025 11:00 AM Dianelys Benson Physical/Nonphysical Assist HOB elevated;Moderate cues;Verbal Cues 01/18/2025 11:00 AM Dianelys Benson Assistive Device Bed rails 01/18/2025 11:0 0 AM Dianelys Benson * Transfer Exam: Sit to stand Question Answer Date of Assessment Author Level of [place] Moderate assist (5 0% patient's effort) 01/18/2025 11:00 AM Dianelys Benson Physical/Nonphysical Assist Verbal Cues;Maximal cues;Additional assist utilized for safety 01/18/2025 11:00 AM Aspen Bensonberly Assistive Device Walker, rolling 01/18/2025 11:0 0 AM Dianelys Benson * Transfer Exam: Stand to Sit Question Answer Date of Assessment Author Level of [place] Moderate assist (5 0% patient's effort) 01/18/2025 11:00 AM Aspen Bensonberly Physical/Nonphysical Assist Verbal Cues;Maximal cues;Additional assist utilized for safety 01/18/2025 11:00 AM Dianelys Benson Assistive Device Walker, rolling 01/18/2025 11:0 0 AM Dianelys Benson * Transfer Exam: Bed to Chair/Chair to Bed Question Answer Date of Assessment Author Type of Transfer Sidesteps 01/18/2025 11:0 0 AM Dianelys Benson Level of [place] Moderate assist (5 0% patient's effort) 01/18/2025 [...] of Assessment Author Next PT Re-Assessment Date [id number] 01/18/2025 10: 24 AM Micheal Roque Date of PT Session [id number] 01/18/2025 10:24 AM Micheal Hilliard Patient/Family Goals [...] factors and/or comorbidities 01/18/2025 10:24 AM Micheal Rouqe Barriers to Discharge Comorbidities 01/18/2025 10:24 AM [...] Question Answer Date of Assessment Author [facility] Daily Mobility Goal 2 01/19/2025 8:0 0 AM Scar [facility]id RN [facility] Mob[facility] Score 2 01/19/2025 8: 00 [...] RN L Pupil Size (mm) 3 01/23/2025 8: 00 AM Ariadne Horner RN R Pupil Reaction [...] 01/23/2025 8:00 AM Ariadne Horner RN * Professor Of Special Education Question Answer Date of Assessment Author Telemetry Strip Reviewed Yes, I have reviewed and acknowledged. 01/22/2025 7:48 AM Felisa Sidhu RN Developmental Therapist On No 01/23/2025 8:00 AM E Ariadne Nair RN Telemetry Audible Yes 01/23/2025 4:20 AM Christina Lovell RN Telemetry Alarms Set Yes 01/23/2025 4:20 AM Christina Bailon RN Telemetry Box Number pacu #[id number] 01/16/2025 5:17 PM E Felisa Avila RN Bedside Professor Of Special Education On No 01/23/2025 8:00 AM Ariadne Horner RN Bedside Cardiac Audible Yes 01/23/2025 4:20 AM Christina Lovell RN Bedside Cardiac Alarms Set Yes 01/23/2025 4:20 AM Christina Lovell RN * Gastrointestinal Question Answer Date of Assessment Author Most Recent BM Date [id number] 01/22/2025 8:18 PM Christina Yeh RN Gastrointestinal ([facility]) WDL 01/23/2025 8:00 AM EST Ariadne Adame RN GI Symptoms Constipation 01/21/2025 4:00 PM David Alfaro RN * Peripheral Vascular Question Answer Date of Assessment Author Peripheral Vascular ([facility]) X 01/23/2025 8:00 AM Ariadne Horner RN [...] 5:17 PM EST Felisa Hernandez RN * RUPenny Neurovascular Assessment Question Answer Date of Assessment Author RUE Capillary Refill Less than/equal to 2 seconds 01/16/2025 5:30 PM EST Felisa Hernandez RN RUE Color Appropriate for ethnicity 01/16/2025 5:30 PM Felisa Forrest RN RUPenny Temperature/Moisture Warm;Dry 01/16/2025 5:30 PM Felsia Forrest RN R Radial Pulse +2 01/23/2025 8:00 AM EST Ariadne Jacques RN RUE Movement Decreased 01/17/2025 8:00 AM EST Ofelia Lechuga RN * LUE Neurovascular Assessment Question Answer [...] Color Yellow/straw 01/22/2025 8:18 PM EST Christina Cotnreras RN Urine Appearance Clear 01/22/2025 8:18 PM EST Christina Eubanks RN Urine Odor No odor 01/19/2025 4:00 PM EST CalvincSar blanchard RAI De Dios Urinary Incontinence Yes 01/22/2025 [...] Assessment Author Last Date of Wound Treatment [id number] 01/16/2025 12:30 PM Amanda Damon R N Wound Follow-Up Needed? 2 Week 01/16/2025 12:30 PM Amanda Damon RN Wound Comment Groin ICDY - CCAF 01/16/2025 12:30 PM Amanda Melendez RN Wound Previous Provider LK 01/16/2025 12:30 PM Amanda Damon RN Next Date For Wound Care Follow-up [id number] 01/16/2025 12:30 PM Amanda Damon R N * Cardiac Question Answer Date of Assessment Author Cardiac (WDL) WD 01/17/2025 4:00 PM EST Ofelia Peter RN * Respiratory Question Answer Date of Assessment Author Respiratory (WD) WDL 01/23/2025 8:00 AM EST Ariadne Adame RN * RLE ROM Assessment Question Answer Date of Assessment Author RLE Assessment WFL 01/18/2025 11:05 AM EST Dianelys Mancilla * LLE ROM Assessment Question Answer Date of Assessment Author HUGO Assessment WFL 01/18/2025 11:05 AM EST Dianelys Mancilla * Vitals Question Answer Date of Assessment Author Ema src Oral 01/23/2025 11:25 AM EST Camila virk Benji Resp 16 01/23/2025 11:25 AM EST Camila virk, Benji Weight 3396.85 01/22/2025 6:00 AM EST Alice Garber O2 Flow Rate (L/min) 1 01/23/2025 7:[address] Vladimir Benji BP Location Right arm 01/23/2025 11:25 AM [...] RN Response See orders 01/20/2025 1:27 AM EST Christina Contreras RN Name of Nurse Notified of Blood [...] 10:00 PM Cydney Garcia RN Food allergy, Quaker, or Cultural nutrition needs No 01/15/2025 10:00 [...] Genitourinary ([facility]) X 01/23/2025 8:00 AM Ariadne Palmer, RN Genitourinary Symptoms Sanz catheter 01/23/2025 8:00 AM Ariadne Horner, RN * Neurological Question Answer Date of Assessment Author Neuro ([facility]) WDL 01/17/2025 4:00 PM Ofelia Gomes RN * Prior Function Question Answer Date of Assessment Author Level of Mobility Ambulatory- community 01/19/20 10:24 AM Micheal Roque Mobility [place] Independent gait without device 01/18/2025 10:24 AM [...] Answer Date of Assessment Author CHRISTIANNE Assessment [facility] 01/18/2025 11:05 AM Dianelys Farmer * LUE ROM Assessment Question Answer Date of Assessment Author MAGALI Assessment [facility] 01/18/2025 11:05 AM Dianelys Farmer * [...] 2 01/15/2025 10:00 PM Cydney Garcia RN MANAGER LOCAL Evaluation Needed 2 01/15/2025 10:00 PM Cydney [...] RD Triceps (fat) None 01/16/2025 1:[address] Energy Intake Decreased appetite f or the past 1-2 weeks while admitted at OSH, previously eating normally 01/16/2025 1:[address] Weight Loss Weight gain unintentionally - used to weigh ~180#, now believes she's weighing ~200# 01/16/2025 1:[address] * Restart Vitals Timer Answer Date of Assessment Author Yes 01/23/2025 11:25 AM EST Gurpreet Gilbert * Height and Weight Question Answer Date [...] 01/16/2025 5:30 PM Felisa Forrest RN Neuro ([facility]) X 01/16/2025 5:30 PM Felisa Forrest [...] AM Dianelys Benson Dynamic Standing-Balance Lateral weight shifts;Anterior/Oven Dauber ior weight shifts 01/18/2025 11:05 AM Dianelys Benson * General Question Answer Date of Assessment Author Next OT Reassessment 11176 01/18/2025 11:05 AM Dianelys Benson Patient/Family Goals Statement Pt desires to return home when able to. 01/18/2025 11:05 AM Dianelys Benson Date of OT Session [id number] 01/18/2025 11 :05 AM Dianelys Benson * [...] 11:05 AM Dianelys Benson CARE Score - Toileting Hygiene 1 01/18/2025 11:05 AM Marielos Benson ly * Shower/Bathe Self Question Answer Date of Assessment Author Physical Assistance Level 51%-75% 01/18/2025 11:0 5 AM Marielos Bensonly CARE Score - Shower/Bathe Self 2 01/18/2025 11:05 AM Marielos Bensonly * Upper Body Dressing Question Answer Date of Assessment Author Physical Assistance Level 25% or less 01/18/2025 11:0 5 AM Marielos Bensonly CARE Score - Upper Body Dressing 3 [...] apply) None Applicable 01/16/2025 10:20 AM Amanda Fodr RN * Pain Type Answer Date of Assessment Author Acute pain 01/22/2025 9:43 PM Christina Lovell RN * Temp (in Celsius) for [place] IV Answer Date of Assessment Author 36.7 01/23/2025 11:25 AM ZULY Gilbert N oah * Pain Assessment Question Answer [...] Fluid Restrictions none 01/21/2025 7:00 AM EST Alyas Quinn Diet Type Regular;Consistent C arb 2 [...] Volume Rows Bladder scan 01/20/2025 1:08 AM EST Christina Fritz RN * Stool Output/Assessment Question Answer Date [...] Calculated Score Answer Date of Assessment Author Bre Landry 01/23/2025 8:00 AM Griselda Horner ea, RN [...] 01/15/2025 10:00 PM Cydney Garcia RN * Herbster Coma Scale Numeric Answer Date of Assessment [...] airway 5:17 PM Felisa Forrest, RN Respiratory ([facility]) WDL 01/16/2025 5:3 0 PM Felisa Forrest, RN * Integumentary Question Answer Date of Assessment Author Integumentary ([facility]DL) X 01/16/2025 5:17 PM ES T Felisa Hernandez, RN * Modified Neeta Question Answer Date [...] Level Surfaces) 0 01/18/2025 1 1:05 AM EST Finamore, Dianelys Stairs 0 01/18/2025 11:05 AM Dianelys Guan Total Score 25 01/18/2025 11:05 AM Dianelys Guan * Standardized Tests Question Answer Date of Assessment Author Standardized Tests Micheal Index 01/18/2025 11:05 AM E Dianelys Mendoza * Rocco/Debra Scale Question Answer Date of [...] Date of Assessment Author Manual Muscle Testing [facility] 01/18/2025 11:05 AM Dianelys Benson * Manual Muscle Testing - RUE Question Answer Date of Assessment Author Manual Muscle Testing - RUE [facility] 01/18/2025 11 :05 AM Dianelys Benson * Manual Muscle Testing - LUE Question Answer Date of Assessment Author Manual Muscle Testing - LUE [facility] 01/18/2025 11 :05 AM Dianelys Benson [...] No 01/23/2025 8:00 AM Ariadne Horner , RAI 6. Suicidal Behavior (Lifetime) No 8:00 AM Ariadne Horner, RN * Discharge Planning Continued Question Answer Date of Assessment Author Transportation Home at Discharge Other(Comment) 01/23/2025 10:09 AM Amanda Ford RN * [facility] 6-Clicks Mobility Assessment Question Answer Date of [...] bed? 2 01/18/2025 10:24 AM EST Katelyn Metlon How much help does the patie nt [...] railing? 2 01/18/2025 10:24 AM Katelyn Roque [facility] 6-Clicks Mobility Asse ssment Total 12 01/18/2025 [...] Author ARASH (FABIANO) X 01/23/2025 8:00 AM Ariadne Horner RN R Eye Mildly impaired vision 01/23/2025 8:00 AM Ariadne Horner RN L Eye Mildly impaired vision 01/23/2025 8:00 AM Ariadne Horner RN R Ear Mildly impaired hearing 01/23/2025 8:00 A M Ariadne Horner RN L Ear Moderately impaired hearing 01/23/2025 8: 00 AM Ariadne Horner RN Teeth Missing teeth 01/23/2025 8:00 AM Ariadne Giles RN * Infection Management Answer Date of [...] listening provided;questions answered 01/22/2025 8:51 PM Christina Lovell, RAI * Pressure Reduction Devices Answer Date of [...] Assessment Author Discharge Facility/Level of Care Needs 3-Snf Facility 01/23/2025 10:09 AM Amanda Ford RN Equipment Needed After Discharge other (see comments) 01/23/2025 10:09 AM Amanda Ford RN Discharge Coordination/Progress Going to [facility] 01/23/2025 10:09 AM Amanda Ford RN Equipment Currently Used at Home walker, rollator;shower chair 01/23/2025 10:09 AM Amanda Ford RN Current Outpatient/Agency/Support Group clinic(s);DME 01/23/2025 10:09 AM Amanda Ford RN Anticipated Changes Related to Illness none 01/23/2025 10:09 AM Amanda Ford RN Concerns Comments Patient is going to [facility] where they can assist with care coordination. 01/23/2025 10:09 AM Amanda Ford RN Transportation Anticipated other (see comments) 01/23/2025 10:09 AM Amanda Ford RN Outpatient/Agency/Support Group Needs fpc facility;OT, PT, MANAGER LOCAL 01/23/2025 10:09 AM Amanad Ford RN Transportation Concerns none 01/24/20 10:09 [...] RN Patient/Family Anticipated Services at Transition rehabilitation services;fpc 01/23/2025 10:09 AM Amanda Ford RN Patient's Choice of Community Agency(s) [facility] 01/23/2025 10:09 AM Amanda [...] RN What day is the transport expected? [id number] 01/23/2025 10:09 AM Amanda Ford RN What time is the transport expected? [id number] 01/23/2025 10:09 AM Amanda Ford RN Who [...] Care Question Answer Date of Assessment Author Merchandising Manager N/A 01/18/2025 11:05 AM Dianelys Guan Family/Caregiver [...] Answer Date of Assessment Author Level of [place] Dependent 01/18/2025 11:00 AM Dianelys Benson Physical/Nonphysical Assist Verbal Cues;Nonverbal cues (demo/gestures);Maxim al cues;Additional assist utilized for safety 01/18/2025 11:00 AM Dianelys Benson * Bed Mobility Exam: Supine to Sit Question Answer Date of Assessment Author Level of [place] Moderate assist (5 0% patient's effort) 01/18/2025 11:00 AM Dianelys Benson Physical/Nonphysical Assist HOB elevated;Moderate cues;Verbal Cues 01/18/2025 11:00 AM Dianelys Benson Assistive Device Bed rails 01/18/2025 11:0 0 AM Dianelys Benson * Transfer Exam: Sit to stand Question Answer Date of Assessment Author Level of [place] Moderate assist (5 0% patient's effort) 01/18/2025 11:00 AM Dianelys Benson Physical/Nonphysical Assist Verbal Cues;Maximal cues;Additional assist utilized for safety 01/18/2025 11:00 AM Dianelys Benson Assistive Device Walker, rolling 01/18/2025 11:0 0 AM Dianelys Benson * Transfer Exam: Stand to Sit Question Answer Date of Assessment Author Level of [place] Moderate assist (5 0% patient's effort) 01/18/2025 11:00 AM Dianelys Benson Physical/Nonphysical Assist Verbal Cues;Maximal cues;Additional assist utilized for safety 01/18/2025 11:00 AM Dianelys Benson Assistive Device Walker, rolling 01/18/2025 11:0 0 AM Dianelys Benson * Transfer Exam: Bed to Chair/Chair to Bed Question Answer Date of Assessment Author Type of Transfer Sidesteps 01/18/2025 11:0 0 AM Dianelys Benson Level of [place] Moderate assist (5 0% patient's effort) 01/18/2025 [...] of Assessment Author Next PT Re-Assessment Date [id number] 01/18/2025 10: 24 AM Micheal Roque Date of PT Session [id number] 01/18/2025 10:24 AM Micheal Hilliard Patient/Family Goals [...] Score Question Answer Date of Assessment Author [facility] Daily Mobility Goal 2 01/19/2025 8:0 0 AM Scar Shahid RN [facility] Daily Mobility Score 2 01/19/2025 8: 00 [...] Pulse 66 01/23/2025 11:25 AM EST Inte guanako, Doc Flowsheet In MAP (mmHg) 97 01/23/2025 [...] LUE Motor Response Responds to commands 01/18/20 25 [...] 01/23/2025 8:00 AM Ariadne Horner RN * Professor Of Special Education Question Answer Date of Assessment Author Telemetry Strip Reviewed Yes, I have reviewed and acknowledged. 01/22/2025 7:48 AM Felisa Sidhu RN Developmental Therapist On No 01/23/2025 8:00 AM Ariadne Woods RN Telemetry Audible Yes 01/23/2025 4:20 AM Christina Lovell RN Telemetry Alarms Set Yes 01/23/2025 4:20 AM E Christina Ferris RN Telemetry Box Number pacu #[id number] 01/16/2025 5:17 PM E Felisa Avila RN * Gastrointestinal Question Answer Date of Assessment Author Most Recent BM Date [id number] 01/22/2025 8:18 PM Christina Yeh RN Gastrointestinal [...] 01/16/2025 5:17 PM Felisa Forrest RN * RUE Neurovascular Assessment Question Answer Date of Assessment Author CHRISTIANNE Capillary Refill Less than/equal to 2 seconds 01/16/2025 5:30 PM Felisa Forrest RN RUPenny Color Appropriate for ethnicity [...] Radial Pulse +2 01/23/2025 8:00 AM EST Ariaden Jacques, RN LUE Movement Decreased 01/17/2025 8:00 [...] R Pedal Pulse +2 01/23/2025 8:00 AM Ariadne Giles, RN RLE Movement Decreased 01/17/2025 8:00 AM Ofelia Gomes RN * LLE Neurovascular Assessment Question Answer [...] RN LLE Movement Decreased 01/17/2025 8:00 AM Ofelia Gomes, RAI * Musculoskeletal Question Answer Date of Assessment Author RUE Weakness 01/23/2025 8:00 AM EST Ariadne Adame RN RLE Limited movement 01/23/2025 8:00 AM Ariadne Manning RN LUE Weakness 01/23/2025 8:00 AM Ariadne Horner RN LLE Limited movement 01/23/2025 8:00 AM Ariaden Manning RN Musculoskeletal ([facility]) X 01/23/2025 8:00 AM Ariadne Horner RN * Urine Assessment Question Answer Date of Assessment Author Urine Color Yellow/straw 01/22/2025 8:18 PM Christina Fontana RN Urine Appearance Clear 01/22/2025 8:18 PM Christina Lynn RN Urine Odor No odor 01/19/2025 4:00 PM ZULY Scar Katz RAI De Dios Urinary Incontinence [...] Question Answer Date of Assessment Author Cardiac ([facility]) [facility] 01/17/2025 4:00 PM EST Ofelia Peter RN * Respiratory Question Answer Date of Assessment Author Respiratory ([facility]) [facility] 01/23/2025 8:00 AM EST Ariadne Adame RN * RLE ROM Assessment Question Answer Date of Assessment Author RLE Assessment [facility] 01/18/2025 11:05 AM EST Dianelys Mancilla * LLE ROM Assessment Question Answer Date of Assessment Author LLE Assessment [facility] 01/18/2025 11:05 AM EST Dianelys Mancilla * Vitals Question Answer Date of Assessment Author Temp src Oral 01/23/2025 11:25 AM EST Benji Neville Resp 16 01/23/2025 11:25 AM Benji Chicas Weight 3396.85 01/22/2025 6:00 AM EST Alice [...] 10:00 PM Cydney Garcia RN Food allergy, Quaker, or Cultural nutrition needs No 01/15/2025 10:00 [...] Question Answer Date of Assessment Author Genitourinary ([facility]) X 01/23/2025 8:00 AM Ariadne Palmer, RN Genitourinary Symptoms Sanz catheter 01/23/2025 8:00 AM Ariadne Horner, RN * Neurological Question Answer Date of Assessment Author Neuro ([facility]) [facility] 01/17/2025 4:00 PM Ofelia Gomes RN * Prior Function Question Answer Date of Assessment Author Level of Mobility Ambulatory- community 01/19/20 10:24 AM Micheal Roque Mobility [place] Independent gait without device 01/18/2025 10:24 AM [...] Answer Date of Assessment Author RUE Assessment [facility] 01/18/2025 11:05 AM Dianelys Farmer * LUE ROM Assessment Question Answer Date of Assessment Author LUE Assessment [facility] 01/18/2025 11:05 AM Dianelys Farmer * [...] Evaluation Needed 1 01/15/2025 10:00 PM Cydney Garica RN OT Evaluation Needed 2 01/15/2025 10:00 PM Cydney Garcia RN MANAGER LOCAL Evaluation Needed 2 01/15/2025 10:00 PM Cydney [...] 63 01/16/2025 3:05 PM Kingsley Pugh RN * Neurological Question Answer Date of Assessment Author Hand Grasp/Motor Function/Sensation Assessment Grasp;Dorsiflexion;M otor response;Sensation;M otor strength 01/16/2025 5:30 PM Felisa Forrest RN * STOP-Bang Questionnaire Question Answer Date of Assessment Author Do you snore loudly? 0 01/15/2025 10:00 PM Cydney Garcia RN Do you often feel tired or f atigued after your sleep? 0 01/15/2025 10:00 PM Cydney Garica RN Has anyone ever observed you stop [...] AM Dianelys Benson Dynamic Standing-Balance Lateral weight shifts;Anterior/Oven Dauber ior weight shifts 01/18/2025 11:05 AM Dianelys Benson * General Question Answer Date of Assessment Author Next OT Reassessment [id number] 01/18/2025 11:05 AM Dianelys Benson Patient/Family Goals Statement Pt desires to return home when able to. 01/18/2025 11:05 AM Dianelys Benson Date of OT Session [id number] 01/18/2025 11 :05 AM Dianelys Benson * [...] 01/23/2025 8:00 AM Ariadne Horner RN * Herbster Coma Scale Question Answer Date of Assessment [...] - RUE Yes 01/17/2025 3:30 AM EST Rocco Cydney, R N Motor - LLE No [...] R N Manual Dual Sign Off 2nd RN RAI Rm 01/16/2025 1: 05 AM Cydney Garcia RN [...] Dianelys Bladder 0 01/18/2025 11:05 AM EST Swehta more, Dianelys Toilet Use 0 01/18/2025 11:05 [...] Assessment Author Manual Muscle Testing - RUE WF 01/18/2025 11 :05 AM Dianelys Benson * [...] 01/23/2025 10:09 AM Amanda Ford RN * [facility] 6-Clicks Mobility Assessment Question Answer Date of [...] railing? 2 01/18/2025 10:24 AM Katelyn Roque [facility] 6-Clicks Mobility Asse ssment Total 12 01/18/2025 10:24 AM Katelyn Roque documented as of this encounter Mental Status * Pre-op Phone Call Discharge Planning Question Answer Entry Date Author Patient expects to be discha rged to: home 01/16/2025 2:54 PM Kingsley Voss RN * Time Calculation Question Answer Entry Date Author Start Time [id number] 01/18/2025 11:05 AM Dianelys Guan Stop Time [id number] 01/18/2025 11:05 AM Dianelys Guan Time Calculation (min) 45 01/18/2025 11:05 A M Dianelys Benson * OT Therapeutic Procedures Time Entry Question Answer Entry Date Author Self Care/Home Management (A DLs) Time Entry 15 01/18/2025 11:05 AM Marielos Benson * HEENT Question Answer Entry Date Author HEENT (WDL) X 01/23/2025 8:00 AM Ariadne Horner [...] Kuhn h * Initial Excess Weight Answer Entry Date [...] Question Answer Entry Date Author Referral From [facility] Initiated 01/18/2025 2: 30 PM Giancarlo Herrera [...] Minimize Patient Exposure Yes 01/16/2025 3:56 PM EST Nagi Patrick RN * Progress Answer Entry Date Author [...] Christina Lovell RN * Infection Prevention Answer Entry Date Author environmental surveillance performed;equipment surfaces disinfected;hand hygiene promoted;single patient room provided;rest/sleep promoted 01/22/2025 8:51 PM Christina Lovell RN * Outcome Evaluation Answer Entry Date Author POC reviewed with pt. 01/22/2025 8:51 PM Christina Head RN * Medication Review/Management Answer Entry Date Author medications reviewed 01/22/2025 8:51 PM Christina Cr RN * Skin Protection Answer Entry Date Author [...] oral rinse provided 01/22/2025 7:48 AM Felisa Chery, RAI * Discharge Needs Assessment Question Answer Entry Date Author Discharge Facility/Level of Care Needs 3-Snf Facility 01/23/2025 10:09 AM Amanda Ford RN Equipment Needed After Discharge other (see comments) 01/23/2025 10:09 AM Amanda Ford RN Discharge Coordination/Progress Going to [facility] 01/23/2025 10:09 AM Amanda Ford RN Equipment Currently Used at Home walker, rollator;shower chair 01/23/2025 10:09 AM Amanda Ford RN Current Outpatient/Agency/Support Group clinic(s);DME 01/23/2025 10:09 AM Amanda Ford RN Anticipated Changes Related to Illness none 01/23/2025 10:09 AM Amanda Ford RN Concerns Comments Patient is going to [facility] where they can assist with care coordination. 01/23/2025 10:09 AM Amanda Ford RN Transportation Anticipated other (see comments) 01/23/2025 10:09 AM Amanda Ford RN Outpatient/Agency/Support Group Needs fpc facility;OT, PT, MANAGER LOCAL 01/23/2025 10:09 AM Amanda Ford RN Transportation [...] RN Patient/Family Anticipated Services at Transition rehabilitation services;fpc 01/23/2025 10:09 AM Amanda Ford RN Patient's Choice of Community Agency(s) [facility] 01/23/2025 10:09 AM EST Meza, Amanda A, RN Patient/Family Anticipates Transition to other (see comments) 01/23/2025 10:09 AM Amanda Ford RN Offered/Gave Vendor List yes 025 10:09 AM Amanda Ford RN Does the patient need discharge transport arranged? Yes 01/23/2025 10:09 AM Amanda Ford RN Has discharge transport been arranged? Yes 01/23/2025 10:09 AM Amanda Ford RN What day is the transport expected? [id number] 01/23/2025 10:09 AM Amanda Ford RN What time is the transport expected? [id number] 01/23/2025 10:09 AM Amanda Ford RN Who [...] in Care Question Answer Entry Date Author Merchandising Manager N/A 01/18/2025 11:05 AM Dianelys Guan * [...] Entry Date Author Next PT Re-Assessment Date 96404 01/18/2025 10: 24 AM Micheal Roque Date of PT Session [id number] 01/18/2025 10:24 AM Micheal Hilliard * PT [...] commands 01/18/20 3:30 AM Cydney Garcia RN LUPenny Sensation Full sensation 01/23/2025 8:00 AM Ariadne [...] Author Cardiac Rhythm NSR 01/19/2025 4:00 PM EST Calvin, Scar K, RN Ectopy Premature ventricula r contractions 01/23/2025 4:20 AM Christina Lovell RN Ectopy Frequency Rare 01/23/2025 4:20 AM Christina Lovell RN Cardiac Regularity Regular 01/23/2025 8: 00 AM Ariadne Horner RN Cardiac (WDL) X 01/23/2025 8:00 AM Ariadne Horner RN Heart Sounds S1, S2 01/23/2025 8:00 AM Ariadne Horner RN Jugular Venous Distention (JVD) No 01/23/2025 8:00 AM Ariadne Horner RN * Professor Of Special Education Question Answer Entry Date Author Telemetry Strip Reviewed Yes, I have reviewed and acknowledged. 01/22/2025 7:48 AM Felisa Sidhu RN Developmental Therapist On No 01/23/2025 8:00 AM Ariadne Horner RN Telemetry Audible Yes 01/23/2025 4:2 0 AM Christina Lovell RN Telemetry Alarms Set Yes 01/23/2025 4:20 AM Christina Lovell RN Telemetry Box Number pacu #[id number] 01/16/2025 5:17 PM Felisa Forrest RN Bedside Professor Of Special Education On No 01/23/2025 8:00 AM Ariadne Horner RN Bedside Cardiac Audible Yes 01/24/20 4:20 AM Christina Lovell RN Bedside Cardiac Alarms Set Yes 01/23/2025 4:20 AM Christina Lovell RN * Gastrointestinal Question Answer Entry Date Author Most Recent BM Date 48016 01/22/2025 8:18 PM Christina Yeh RN Gastrointestinal [...] 8:00 AM EST Ofelia Osei RN * LUE Neurovascular Assessment Question Answer Entry Date Author LUE Capillary Refill Less than/equal to 2 seconds 01/16/2025 5:30 PM Felisa Forrest RN LUE Color Appropriate for ethnicity 01/16/2025 5:30 PM Felisa Forrest, RN LUPenny Temperature/Moisture Warm;Dry 01/16/2025 5:30 PM [...] ethnicity 01/16/2025 5:30 PM Felisa Forrest, RN LLE Temperature/Moisture Warm;Dry 01/16/2025 5:30 PM Felisa Forrest RN L Pedal Pulse +2 01/23/2025 8:00 AM EST Ariadne Adame RN LLE Movement Decreased 01/17/2025 8:00 AM EST Ofelia Osei RN * Musculoskeletal Question Answer Entry Date Author RUE Weakness 01/23/2025 8:00 AM EST [...] odor 01/19/2025 4:00 PM EST Scar Katz RN Urinary Incontinence Yes 01/22/2025 8:18 PM [...] Fall Risk Score 60 01/23/2025 8:00 AM Ariaden Horner RN * Isael Scale Question Answer [...] Entry Date Author 37.62 01/22/2025 6:00 AM EST Gnau, Nancy h * Pain Location Answer Entry Date Author Back;Head;Neck 01/22/2025 9:43 PM EST Christina Fritz RN * Pain Orientation Answer Entry Date Author Mid;Lower 01/19/2025 9:17 PM Christina Lovell RN * Cardiac Question Answer Entry Date Author Cardiac ([facility]) [facility] 01/17/2025 4:00 PM EST Ofelia Peter RN * Respiratory Question Answer Entry Date Author Respiratory ([facility]) [facility] 01/23/2025 8:00 AM EST Ariadne Adame RN * Vitals Question Answer Entry Date Author Temp src Oral 01/23/2025 11:25 AM EST Benji Neville Resp 16 01/23/2025 11:25 AM EST Benji Neville Weight 3396.85 01/22/2025 6:00 AM EST Alice Garber O2 Flow Rate (L/min) 1 01/23/2025 7:39 AM E Benji Quiñonez BP Location Right arm 01/23/2025 11:25 AM EST Camila virk Benji BP Method Automatic 01/23/2025 11:25 AM [...] 10:00 PM Cydney Garcia RN Food allergy, Quaker, or Cultural nutrition needs No 01/15/2025 10:00 [...] 2 01/15/2025 10:00 PM Cydney Garcia RN MANAGER LOCAL Evaluation Needed 2 01/15/2025 10:00 PM Cydney [...] Kingsley Herrera RN Time of Last Void 42604 01/16/2025 3:07 PM Kingsley Voss RN Date of Last Liquid 95279 01/16/2025 3:07 PM Kingsley Herrera RN Date of Last Solid 61838 01/16/2025 3:07 PM Kingsley Voss RN Time [...] pink pre-surgical soap? No 01/16/2025 3:05 PM Shikha Voss RN * Spiritual Assessment Question Answer Entry Date Author Support Systems/ Spiritual Resources Prayer 01/18/2025 2:30 PM Giancarlo Herrera Spiritual Needs Emotional support 01/18/2025 2:30 PM Giancarlo Maurer Spiritual Issues Change/ transition 01/18/2025 2:30 PM Giancarlo Herrera * Interventions Question Answer Entry Date Author Interventions Provided Introduced Patichandni t/Family to [facility] 01/18/2025 2:30 PM Giancarlo Herrera * Outcomes Question Answer Entry Date Author Patient Outcomes Finishing Department Supervisor Services 01/18/2025 2:30 P M Giancarlo Herrera * Follow-Up Question Answer Entry Date Author Duration 10 minutes 01/18/2025 2:30 PM Giancarlo Herrera Pastoral Care Comment [facility] made foll ow up visit with Rosa and introductory visit with her family. They are aware of Pastoral Services and availability. 01/18/2025 2:30 PM Giancarlo Herrera Last Date of Pastoral Care Contact [id number] 01/18/2025 2:30 PM Giancarlo Herrera * Restart Vitals Timer Answer Entry Date Author Yes 01/23/2025 11:25 AM EST Gilbert, N oah * Injection Rate mL/s Answer Entry Date Author 2 01/16/2025 7:49 PM EST Idris Ch ristopher * Height and Weight Question Answer [...] 01/16/2025 5:30 PM Felisa Forrest RN Neuro ([facility]) X 01/16/2025 5:30 PM Felisa Forrest RN Hand Grasp/Motor Function/Sensation Assessment Grasp;Dorsiflexion;Mo tor response;Sensation;Mo tor strength 01/16/2025 5:30 PM Felisa Forrest RN * HEENT Question Answer Entry Date Author HEENT ([facility]) X 01/16/2025 5:17 PM Felisa Forrest RN * Cardiac Question Answer Entry Date Author Cardiac ([facility]) WDL 01/16/2025 5:17 PM Felisa Forrest RN * Gastrointestinal Question Answer Entry Date Author Gastrointestinal ([facility]) WDL 01/16/2025 5:17 PM Felisa Forrest RN * Genitourinary Question Answer Entry Date Author Genitourinary ([facility]) X 01/16/2025 5:17 PM Felisa Kapadia RN * Psychosocial Question Answer Entry Date Author Psychosocial ([facility]) WDL 01/16/2025 5:17 PM Felisa Forrest [...] Ataxia No Ataxia 01/17/2025 3:30 AM EST Robins on, Cydney, RN Visual Teague No visual loss 01/17/2025 3:30 AM EST Cydney Wray RN Speech/Language Clear 01/17/2025 3:30 AM EST Cydney Wray RN * Weight in (lb) to have BMI = 25 Answer Entry Date Author 140.8 01/16/2025 3:05 PM EST Kingsley Alarcon RN * BMI (Calculated) Answer Entry Date Author 37.7 01/22/2025 6:00 AM Nancy Kuhn h * Percent Excess Weight Loss Answer Entry Date Author 0 01/16/2025 3:05 PM Juan Voss RN * Weight Change Since Preop Answer Entry Date Author 96.3 01/22/2025 6:00 AM Nancy Kuhn h * Initial Excess Weight Answer Entry Date [...] Alice Kuhn * Temp (in Celsius) for [place] IV Answer Entry Date Author 36.7 01/23/2025 11:25 AM EST Gurpreet Gilbert oah * Pain Assessment Question Answer Entry [...] Date Author 0 01/16/2025 5:17 PM EST DavidSylvia lavinia Martinez, RN * Nutrition Question Answer Entry Date [...] Date [place] [address] 01/19/2025 2:53 PM EST French Pleitez ia * Deterioration Index Score Question Answer Entry Date Author Deterioration Index Score 18.63 01/23/2025 1:01 PM EST Teena Martinesq * Unplanned Readmission Scores Question Answer Entry Date Author Unplanned Readmission Score 11.81 01/23/2025 12 :00 PM EST Teena Martinesq * PRN Medication Given Reason Answer Entry [...] Fide Lindsay, PharmD Current Status Discharge to Facility-M2B Service Not Available 01/23/2025 8:21 AM Fide [...] Referral Sent to Answer Entry Date Author [facility] 01/22/2025 1:21 PM EST In [facility] * Elevate heels task - custom formula [...] Author Integumentary (WDL) X 01/16/2025 5:17 PM Felisa Kapadia RN * Modified Neeta Question Answer Entry [...] Normothermia Interventions Question Answer Entry Date Author [place] Applied Yes 01/16/2025 5:18 PM Felisa Harry [...] No 01/23/2025 8:00 AM Ariadne Horner , RAI 6. Suicidal Behavior (Lifetime) No 8:00 AM Ariadne Horner RN * Discharge Planning Continued Question Answer Entry Date Author Transportation Home at Discharge Other(Comment) 01/23/2025 10:09 AM Amanda Ford RN * [facility] 6-Clicks Mobility Assessment Question Answer Entry Date [...] railing? 2 01/18/2025 10:24 AM Katelyn Roque [facility] 6-Clicks Mobility Asse ssment Total 12 01/18/2025 [...] crush, chew, or split. 01/23/2025 nystatin (Mycostatin) 020965 UNIT/ML suspension 04/21/2024 pantoprazole (Protonix) 40 MG [...] from the original note were not included. 14801 What is Sepsis? Sepsis is a very [...] (ICU). Last Reviewed Date: 2024 00:00:00 ?? 1537-7608 [employer]. All rights reserved. This information is not intended as a substitute for professional medical care. Always follow your healthcare professional's instructions. * [facility] Jerome Henderson RN - 01/23/2025 12:18 PM EST Images from the original note were not included. 57150 Understanding Sepsis Sepsis is a life-threatening problem [...] . Last Reviewed Date: 2024 00:00:00 ?? [id number] [employer]. All rights reserved. This information is not intended as a substitute for professional medical care. Always follow your healthcare professional's instructions. * In[facility] - Jerome Henderson RN - 01/23/2025 12:18 PM EST Images from the original note were not included. [id number] Bacteremia, Suspected (Adult) Bacteremia is a bacterial [...] Lung infection (pneumonia) ? Infection of a medical tech placed in a vein or the bladder [...] provider Last Reviewed Date: 2024 00:00:00 ?? 6092-4522 [employer]. All rights reserved. This information is not intended as a substitute for professional medical care. Always follow your healthcare professional's instructions. * Progress Notes - Amanda Meza RN - 01/23/2025 10:13 AM EST Case Management Discharge Note Rosa Perdomo 74 y.o. female CSN: [id number] Admission: 01/15/2025 9:57 PM Primary Problem: Postoperative sepsis (CMS/HCC) Primary Transportation Assistant: Patient is going to [facility] where staff can assist with care needs Assistance Available at Discharge: Current Outpatient/Agency/Support Group: clinic(s), DME Availability of Care Givers (#Hours): 24 hours (staff at [facility]) Family/Transportation Assistant(s) Willingness Assessed to care for patient at home: Yes Family/Transportation Assistant(s) Readiness Assessed to care for patient at home: Yes Housing Circumstances-Z Codes: Housing Circumstances (select all that apply): None Applicable Patient Referred to Financial or Community Resources: No community resources needed at this time. Going to [facility] Discharge Facility/Level of Care Needs: Discharge Facility/Level of Care Needs: 3-Snf Facility ([facility]) Patient's Choice of Community Agency(s): Patient's Choice of Community Agency(s): [facility] Patient/Family Anticipated Services at Transition: Patient/Family Anticipated Services at Transition: rehabilitation services, fpc ([facility]) DME/Equipment Needed after Discharge: Equipment Currently Used at Home: walker, rollator, shower chair Equipment Needed After Discharge: other (see comments) (per [facility]) Readmission Within the Last 30 Days: Readmission Within the Last 30 Days: no previous admission in last 30 days Medicare Documentation: Medicare Second Notice?: Yes Date Second Notice Completed: 01/22/25 Time Second Notice Completed: 1111 Medicare Second Notice Recieved By: patient Follow-up: Chase Gunn MD [address] [facility] [address] [place] [id number] Discharge Transportation: Transportation Anticipated: other (see comments) (W/C transport, citrus picker at 2 pm.) Transportation Home at [...] Has Acute recs, but request DESTINEY at [facility]. Per admissions (Stacey), they can accept patient today. Patient will need to be on Vancomycin for discharge, not Dapto. Number for report: [phone] (Unit 1) [place] Summary: [phone] Narcs: [facility] in [place] Transport: Time for pickup changed to today 01/23 at 2 pm in the [place] lounge. Nurse, , Stacey (facility) and spouse [...] PCP name and Address: Chase Gunn MD [address] [place] [address] / [place] [address] Referring provider name and address: Chase Gunn MD [address] [place] [address] Chief Concern, Brief History of Present Illness, [...] at discharge. She was discharged to a fpc facility with a plan for continued IV [...] present. Discharge Disposition/Condition Disposition: Nursing facility (specify) [facility] Condition: Stable (s/sx potential problems absent or [...] Ongoing, Progressing Intervention: Promote Activity and Functional [place] Flowsheets Taken 01/22/20252050 Self-Care Promotion: independence encouraged BADL personal objects within reach Taken 01/22/20252017 Activity Assistance Provided: assistance, 2 people * Care Alejandro - Asher Walker DO - 01/22/2025 5:11 PM EST Spoke with pharmacy; daptomycin is not available at receiving facility so patient will remain on vancomycin post discharge. New OPAT note has been submitted. Please refer to OPAT note for complete details. Asher Walker DO Infectious Disease Fellow, PGY-5 Pager: [phone] Epic Chat Preferred * Asher Fraser DO [...] OPAT Team Attn: Dr. Sinha Fax #: [phone] Appointments: Co-clinic with JORGE Keating, & Dr. Sinha on 01/31/2025 at 1:00pm at: [facility]: [address] [place] [address] (Select Option 3 for IV Antibiotic / PICC line related issues) For questions regarding OPAT prior to discharge, reach out to the OPAT team via ZALP Secure Chat (Group: OPAT Referral Team). For all questions regarding OPAT after discharge should be directed to the OPAT Team at (Select Option 3 for IV Antibiotics/PICC Issues) between 8am-5pm. After 5 pm, or during weekends/ holidays, please call the paging tag meter operator at to reach the on-call ID [...] illness (recent C. diff), transferred here to [facility] from OSH for MRSA bacteremia. Spinal cord [...] Note Rosa Perdomo 74 y.o. female CSN: [id number] Admission: 01/15/2025 9:57 PM Primary Problem: Postoperative sepsis (CMS/[facility]ER[facility]) Anticipated Discharge Date: 01/21 Has Discharge Plans Changed? No - [facility] Medicare Second Notice: Medicare Medicare Second Notice?: Yes Date Second Notice Completed: 01/22/25 Time Second Notice Completed: 1111 Medicare Second Notice Recieved By: pieroNA at [...] Has Acute recs, but request DESTINEY at [facility]. Per admissions (Stacey), they cannot accept patient on Daptomycin. Discussed with , will remain on Vancomycin through 02/13/24. Number for report: [phone] (Unit 1) [place] Summary: [phone] Narcs: [facility] in [place] Transport: Patient not qualifying for ambulance. Concerns over transfers into vehicle. Meets < 300% [facility]. W/C Transport arranged via CM office with [facility] Transport for 01/23 at 11 am. Nurse, , Stacey (facilility) and Patients spouse notified. CM will continue to follow for discharge needs. Amanda Meza RN * Progress Notes - Kelsy-Sierra Flores, [...] Ongoing, Progressing Intervention: Promote Activity and Functional [place] Flowsheets Taken 01/22/2025 0756 Adaptive Equipment Use: use encouraged Taken 01/22/202548 Activity Assistance Provided: assistance, 2 people Self-Care [...] Ongoing, Progressing Intervention: Promote Activity and Functional [place] Flowsheets Taken 01/22/2025224 Self-Care Promotion: independence encouraged [...] illness (recent C. diff), transferred here to [facility] from OSH for MRSA bacteremia. Spinal cord [...] daily Mixed hyperlipidemia Plan: -Continue home Statin MADELENIE -Continue home Ferrous Sulfate - Continue serial [...] Ongoing, Progressing Intervention: Promote Activity and Functional [place] Flowsheets (Taken 01/21/20251127) Activity Assistance Provided: assistance, [...] Ongoing, Progressing Intervention: Promote Activity and Functional [place] Flowsheets Taken 01/20/20252101 Self-Care Promotion: independence encouraged BADL personal objects within reach Taken 01/20/20251999 Activity Assistance Provided: assistance, 2 people * Procedures - Cailin Ha RN - 01/20/2025 5:07 PM ESTAssociated Order(s): Insert PICC line Insert PICC line Date/Time: 01/20/2025 5:08 PM Performed by: Cailin Ha RN Authorized by: Cleve Deleon MD [place] Protocol: Verbal consent obtained?: Yes Written consent [...] preference. Patient position: Supine Catheter Lot #: [id number] Catheter manager material: Wan Shidao management Catheter placed: Single lumen Catheter size: 4 [...] illness (recent C. diff), transferred here to [facility] from OSH for MRSA bacteremia. Spinal cord [...] and Optimize Oral Intake Flowsheets (Taken 01/20/2025 1013) Oral Nutrition Promotion: physical activity promoted Nutrition [...] Ongoing, Progressing Intervention: Promote Activity and Functional [place] Flowsheets (Taken 01/20/2025 1013) Activity Assistance Provided: assistance, 2 people Adaptive [...] Ongoing, Progressing Intervention: Promote Activity and Functional [place] Flowsheets Taken 01/20/2025 0201 Self-Care Promotion: BADL [...] illness (recent C. diff), transferred here to [facility] from OSH for MRSA bacteremia. Spinal cord [...] Note Rosa Perdomo 74 y.o. female CSN: [id number] Admission: 01/15/2025 9:57 PM Primary Problem: Postoperative sepsis (CMS/HCC) Anticipated Discharge Date: 12/14 Has Discharge Plans Changed? No - home or agreeable to SNF (requesting [facility] if needed) Medicare Second Notice: Medicare [...] placed. PT/OT recs for Acute. Patient requesting [facility] because it is closer to home. Spouse had also previously indicated that Is where they would want her to go. Spoke with Stacey at facility (admissions) who is reviewing. Referrals also sent to other facilities. CM will continue to follow for discharge needs. Amanda Meza RN * Progress Notes - Renae Resendiz APRN, DNP - 01/19/2025 11:01 AM EST Images [...] is no recent study available for direct [id number] comparison. CT Lumbar Spine w IV Contrast [...] Value Units Date/Time Blood Culture (Aerobic/Anaerobet Set) [[id number]] Collected: 01/18/25 1323 Order Status: Sent Specimen: Blood, Venous Fungal Culture, Routine [[id number]] Collected: 01/16/25 1605 Order Status: Completed Specimen: Abscess from Back, Lower Updated: 01/18/25 1041 Culture No Fungal Growth <1 Week Fungal Culture, Tissue and DEANDRE [[id number]] Collected: 01/16/25 161 Order Status: Completed Specimen: Foreign Body from Back, Lower Updated: 01/18/25 1022 Culture Reading Mycological 4 Weeks No Fungal Growth <1 Week DEANDRE Source not suitable for smear Blood Culture (Aerobic/Anaerobet Set) [[id number]] Collected: 01/16/25 0128 Order Status: Completed Specimen: Blood from Hand, Right Updated: 01/18/25 0403 Culture No growth at day 2 Routine Culture and Gram Stain [[id number]] (Abnormal) Collected: 01/16/25 161 Order Status: Completed Specimen: Foreign Body from Back, Lower Updated: 01/17/25 1327 Culture Heavy Growth 4+ Biotype 1 Staphylococcus aureus 2+ Biotype 2 Staphylococcus aureus Abscess Culture and Gram Stain [[id number]] (Abnormal) Collected: 01/16/25 1605 Order Status: Completed [...] Non Respiratory Source and Acid Fast Stain [[id number]] Collected: 01/16/25 1614 Order Status: Completed Specimen: Foreign Body from Back, Lower Updated: 01/17/25 0557 Acid Fast Stain Source not suitable for smear Anaerobic Culture [[id number]] Collected: 01/16/25 160 Order Status: Sent Specimen: Abscess from Back, Lower Updated: 01/16/25 1710 AFB Culture, Non Respiratory Source and Acid Fast Stain [[id number]] Collected: 01/16/25 160 Order Status: Canceled Specimen: Abscess from Back, Lower Updated: 01/16/251709 Fungal Culture, Sterile Body Fluid (NOT CSF) and DEANDRE [[id number]] Collected: 01/16/25 160 Order Status: Canceled Specimen: Abscess from Back, Lower Updated: 01/16/251709 Anaerobic Culture [[id number]] Collected: 01/16/25 161 Order Status: Sent Specimen: Foreign Body from Back, Lower Updated: 01/16/251709 Antimicrobials: -- Vancomycin IV 1500mg Q24H 01/16 - present -- Cefepime IV 2g Q12H 01/16 - 01/17 -- Metronidazole PO 500mg Q8H 01/16 - 01/17 Assessment: Patient Summary: Rosa Perdomo is a 74 y.o. female with history of DM2, hypertension, depression and anxiety, GERD was transferred to [facility] from outside facility for concern of MRSA bacteremia on 01/15. About 3 weeks ago she underwent spinal cord stimulator placement for spinal arthritis pain management. Blood cultures obtained at the facility (01/14) showed MRSA and she was transferred to [facility] for further management. Blood cultures collected at [facility] on 01/16 show NGTD. NSLEIDY took her to the OR 01/16 for [...] in their operative note. No indication of STATIONARY ENGINEER REFRIGERATION involvement. OPAT orders are in - will [...] Note Rosa Perdomo 74 y.o. female CSN: [id number] Room/Bed 135/135A Nutrition evaluation type: follow-up Reason for evaluation: Hospital course: 74 y/o F presented as a transfer from OSH for MRSA bacteremia. 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 S/p device explantation on 01/16/25 with Neurosurgery. [...] Supplemental oxygen O2 Delivery Method: Nasal cannula Augusto Coma Scale Score: 15 Isael Scale [...] 37.74 Weight Evaluation: Obese-Class 2 (BMI 35-39.9) [place] Body Weight (kg): 52.2 Percent [place] Leandro Body Weight: 185 Adjusted Body Weight (kg): 63.4 Wt Readings from Last 10 Encounters: 01/16/25 96.6 kg (213 lb) 07/30/22 89.8 kg (198 lb) Estimated Needs: Metabolic Cart Study Results: Current Nutrition Intake: Diet Order: Adult Diet Diet Texture: Regular Adult Carbohydrate Restriction: Consistent CHO 2 (3484-2697 Feng, 80 g/meal) Percent Meals Eaten (%): 82% avg x 4 meals Diet Experience and Nutrition History: Diet Education Provided: Will monitor Pertinent home medications: Quaker needs: Nutrition Focused Physical Exam: Physical exam [...] Ongoing, Progressing Intervention: Promote Activity and Functional [place] Flowsheets Taken 01/19/2025912 Adaptive Equipment Use: used [...] Ongoing, Progressing Intervention: Promote Activity and Functional [place] Flowsheets Taken 01/18/20251958 Self-Care Promotion: independence encouraged [...] illness (recent C. diff), transferred here to [facility] from OSH for MRSA bacteremia. Spinal cord [...] 01/18/2025 2:30 PM EST Pastoral Care Note Row Boss made follow up visit with Rosa and introductory visit with her family. They are aware ofPastoral Services and availability. Referral From: Row Boss Initiated Pastoral Care Provided For: Patient, Spouse, Child(odalis) Patient Profile: Consult Reasons: Initial visit Spiritual Assessment: Support Systems/ Spiritual Resources: Prayer Spiritual Needs: Emotional support Spiritual Issues: Change/ transition Interventions: Interventions Provided: Introduced Patient/Family to Row Boss Services Pastoral Care Outcomes: Patient Outcomes: Is knowledgeable about Finishing Department Supervisor Services Giancarlo Pradhan * Procedures - Ethel [...] sent via PACS * Progress Notes - Juan Resendizie R, BIOMEDICAL EQUIPMENT SPECIALIST, DNP - 01/18/2025 12:53 PM EST [...] is no recent study available for direct [id number]-fm-[id number] comparison. CT Lumbar Spine w IV Contrast [...] Value Units Date/Time Blood Culture (Aerobic/Anaerobet Set) [[id number]] Collected: 01/18/25 1323 Order Status: Sent Specimen: Blood, Venous Fungal Culture, Routine [[id number]] Collected: 01/16/25 1605 Order Status: Completed Specimen: Abscess from Back, Lower Updated: 01/18/25 1041 Culture No Fungal Growth <1 Week Fungal Culture, Tissue and DEANDRE [[id number]] Collected: 01/16/25 1614 Order Status: Completed Specimen: Foreign Body from Back, Lower Updated: 01/18/25 1022 Culture Reading Mycological 4 Weeks No Fungal Growth <1 Week DEANDRE Source not suitable for smear Blood Culture (Aerobic/Anaerobet Set) [[id number]] Collected: 01/16/25 0128 Order Status: Completed Specimen: Blood from Hand, Right Updated: 01/18/25 0403 Culture No growth at day 2 Routine Culture and Gram Stain [[id number]] (Abnormal) Collected: 01/16/25 1614 Order Status: Completed Specimen: Foreign Body from Back, Lower Updated: 01/17/25 1327 Culture Heavy Growth 4+ Biotype 1 Staphylococcus aureus 2+ Biotype 2 Staphylococcus aureus Abscess Culture and Gram Stain [[id number]] (Abnormal) Collected: 01/16/25 1605 Order Status: Completed [...] Non Respiratory Source and Acid Fast Stain [[id number]] Collected: 01/16/25 1614 Order Status: Completed Specimen: Foreign Body from Back, Lower Updated: 01/17/25 0557 Acid Fast Stain Source not suitable for smear Anaerobic Culture [[id number]] Collected: 01/16/25 160 Order Status: Sent Specimen: Abscess from Back, Lower Updated: 01/16/25 1710 AFB Culture, Non Respiratory Source and Acid Fast Stain [[id number]] Collected: 01/16/25 160 Order Status: Canceled Specimen: Abscess from Back, Lower Updated: 01/16/251709 Fungal Culture, Sterile Body Fluid (NOT CSF) and DEANDRE [[id number]] Collected: 01/16/251604 Order Status: Canceled Specimen: Abscess from Back, Lower Updated: 01/16/250 Anaerobic Culture [[id number]] Collected: 01/16/251613 Order Status: Sent Specimen: Foreign Body from Back, Lower Updated: 01/16/250 Antimicrobials: -- Vancomycin IV 1500mg Q24H 01/16 - present -- Cefepime IV 2g Q12H 01/16 - 01/17 -- Metronidazole PO 500mg Q8H 01/16 - 01/17 Assessment: Patient Summary: Rosa Perdomo is a 74 y.o. female with history of DM2, hypertension, depression and anxiety, GERD was transferred to [facility] from outside facility for concern of MRSA bacteremia on 01/15. About 3 weeks ago she underwent spinal cord stimulator placement for spinal arthritis pain management. Blood cultures obtained at the facility (01/14) showed MRSA and she was transferred to [facility] for further management. Blood cultures collected at [facility] on 01/16 show NGTD. VINCENT took her [...] in their operative note. No indication of STATIONARY ENGINEER REFRIGERATION involvement. OPAT orders are in - will [...] admitted 01/15/2025 for work-up of Postoperative sepsis (CMS/[facility]ER[facility]). Problem List Active Hospital Problems Diagnosis Date [...] kidney disease) stage 3, GFR 30-59 ml/min ([facility]), Depression, Diabetes mellitus, Dyspnea, HLD (hyperlipidemia), HTN (hypertension), Mitral valve prolapse, Paroxysmal A-fib, RSV (respiratory syncytial virus infection), Sciatica, SVT (supraventricular tachycardia) ([facility]), and Trigger finger. Past Surgical History Patient has a past surgical history that includes Colonoscopy; Esophagogastroduodenoscopy; Wrist surgery; Hernia repair; and Cholecystectomy. Precautions Medical Precautions: Fall precautions, Seizure precautions Subjective Pt and RN agreeable to initial OT evaluation. Pt reports she has not been out of bed in days. Participants in Care Family/Caregiver Present: No Merchandising Manager: Not Applicable Presentation Oxygen Therapy: Supplemental oxygen [...] Spouse Level of Mobility: Ambulatory- community Mobility [place]: Independent gait without device History of Falls: [...] Mobility Bed Mobility Exam: Scooting/Bridging Level of [place]a: Dependent (scooting hips forward to edge of bed) Physical/Nonphysical Assist: Verbal Cues, Nonverbal cues (demo/gestures), Maximal cues, Additional assist utilized for safety Bed Mobility Exam: Supine to Sit Level of [place]: Moderate assist (50% patient's effort) Physical/Nonphysical Assist: HOB elevated, Moderate cues, Verbal Cues Assistive Device: Bed rails Transfers Transfer Exam: Sit to stand Level of [place]: Moderate assist (50% patient's effort) (x2 reps from edge of bed - 1st rep MANAGER ETHICS, 2nd rep to RW) Physical/Nonphysical Assist: Verbal Cues, Maximal cues, Additional assist utilized for safety Assistive Device: Walker, rolling Transfer Exam: Stand to Sit Level of [place]: Moderate assist (50% patient's effort) (poorly controlled descent) Physical/Nonphysical Assist: Verbal Cues, Maximal cues, Additional assist utilized for safety Assistive Device: Walker, rolling Transfer Exam: Bed to Chair/Chair to Bed Level of [place]: Moderate assist (50% patient's effort) (with significantly [...] a helper. 5 Set-up or Clean-up Assistance [place] sets up or cleans up; patient completes activity. [place] assists only prior to or following the activity. 4 Supervision or touching assistance [place] provides verbal cues and/or touching/steadying and/or contact guard assistance as patient completes activity. Assistance may be provided throughout the activity or intermittently. 3 Partial/Moderate Assistance [place] does LESS THAN HALF the effort. [place] lifts, holds or supports trunk or limbs, but provides less than half the effort. 2 Substantial/Maximal Assistance [place] does MORE THAN HALF the effort. [place] lifts or holds trunkor limbs and provides more than half the effort. 1 Dependent [place] does ALL of the effort. Patient does [...] admitted 01/15/2025 for work-up of Postoperative sepsis ([facility]). Problem List Active Hospital Problems Diagnosis Date Noted Date Diagnosed Postoperative sepsis ([facility]) 01/16/2025 Mixed hyperlipidemia 01/16/2025 Cellulitis of back [...] syncytial virus infection), Sciatica, SVT (supraventricular tachycardia) (CMS/[facility]), and Trigger finger. Past Surgical History Patient has a past surgical history that includes Colonoscopy; Esophagogastroduodenoscopy; Wrist surgery; Hernia repair; and Cholecystectomy. Precautions Medical Precautions: Fall precautions, Seizure precautions Subjective Pt was agreeable to therapy today. Pt was glad to get to the chair today to brush her hair and her teeth. Participants in Care Family/Caregiver Present: No Merchandising Manager: Not Applicable Presentation Oxygen Therapy: Supplemental oxygen [...] Spouse Level of Mobility: Ambulatory- community Mobility [place]: Independent gait without device History of Falls: [...] Mobility Bed Mobility Exam: Scooting/Bridging Level of Cata[place]a: Dependent (scooting hips forward to edge of bed) Physical/Nonphysical Assist: Verbal Cues, Nonverbal cues (demo/gestures), Maximal cues, Additional assist utilized for safety Bed Mobility Exam: Supine to Sit Level of [place]: Moderate assist (50% patient's effort) Physical/Nonphysical Assist: HOB elevated, Moderate cues, Verbal Cues Transfers Transfer Exam: Sit to stand Level of Cata[place]: Moderate assist (50% patient's effort) (x2 reps from edge of bed - 1st rep MANAGER ETHICS, 2nd rep to RW) Physical/Nonphysical Assist: Verbal Cues, Maximal cues, Additional assist utilized for safety Assistive Device: Walker, rolling Transfer Exam: Stand to Sit Level of Cata[place]: Moderate assist (50% patient's effort) (poorly controlled descent) Physical/Nonphysical Assist: Verbal Cues, Maximal cues, Additional assist utilized for safety Assistive Device: Walker, rolling Transfer Exam: Bed to Chair/Chair to Bed Level of Catahoula: Moderate assist (50% patient's effort) (with significantly [...] below. Therapeutic Exercise (8 minutes) Access Code: [email or web address] URL: [email or web address] Date: 01/18/2025 Prepared by: Pk Exercises - [...] exercises. Pt demonstrated verbal understanding. Standardized Assessments [facility] 6-Clicks Mobility Assessment Difficulty patient has turning [...] 3-5 steps with a railing?: A lot [facility] 6-Clicks Mobility Assessment Total : 12 No [...] Note Rosa Perdomo 74 y.o. female CSN: [id number] Admission: 01/15/2025 9:57 PM Primary Problem: Postoperative sepsis (CMS/HCC) Anticipated Discharge Date: 01/23 Has Discharge Plans Changed? No - home or agreeable to SNF (requesting [place] [facility] if needed) Medicare Second Notice: NA [...] orders and - eval pending. Patient requesting [place] SNF if needed. CM will continue to follow for discharge needs. Addendum: PT/OT recs for Acute rehab. Difference between Acute and Subacute explained to patient. Patient states she would like to go to [place] as it is closer to home. Attempted to reach spouseper patient request to also discuss with him. Unable to reach, unable to leave . Referrals to be made for [place] when therapy notes are in. VM left for admissions at [place]. Amanda Meza RN * Care Plan - [...] Pain and Promote Comfort Flowsheets (Taken 01/17/2025 6568) Pain Management Interventions: medication (see MAR) Intervention: [...] 01/17/2025 8:45 PM EST Pastoral Care Note Row Boss visited with Rosa, she reports she wants a visit but this is not the best time. Chaplainwill follow up tomorrow as able. Referral From: Row Boss Initiated Pastoral Care Provided For: Patient Patient Profile: Consult Reasons: Initial visit Spiritual Assessment: Support Systems/ Spiritual Resources: Family Spiritual Needs: Emotional support Interventions: Interventions Provided: Introduced Patient/Family to Row Boss Services Pastoral Care Outcomes: Patient Outcomes: Is knowledgeable about Finishing Department Supervisor Services Giancarlo Pradhan * Progress Notes - [...] illness (recent C. diff), transferred here to [facility] from OSH for MRSA bacteremia. Spinal cord [...] Plan: OPAT at a medical/nursing facility (e.g, LTAC,[facility], Swing Bed, Nursing facility) Darrius Valiente RN [...] Single Lumen PICC Patient Specific Outpatient Circumstances: [address] [facility] [address] Contact information Rosa Perdomo [phone] (home) Extended Emergency Contact Information Primary Emergency Contact: Westley Perdomo Relation: Spouse Merchandising Manager needed? No Secondary Emergency Contact: Oumou Ocasio Relation: Daughter Outpatient services (including home infusion, home health, facility referral: See recent [facility] case management/social work note for finalization of services ID follow up appointment: Future Appointments Date Time Provider Department Center 01/31/2025 1:00 PM Dona Nava PA [id number] [place] Patient Assessment After review and discussion with the ID physician, the patient is currently enrolled in the Modified OPAT program. Patient is unable to administer IV antimicrobial therapy at home. But is appropriated for the Modified OPAT program. Please direct questions to OPAT referral team, another member of the OPAT team, or the ID consulting provider via secure chat or staff messaging in [employer]. OPAT Modified program for IV antimicrobial therapy [...] Other, please describe further: OPAT at a [facility]ing[facility] (e.g, LTAC,[facility], Swing Bed, Nursing facility) Patient lives out [...] Willie Shrestha (insert ID provider) Fax #: [phone] Appointments: (Co-clinic 01/31/2025 Insert ID Provider; date and time) at: [facility]: [address] [address] (Select Option 3 for IV Antibiotic / PICC line related issues) For questions regarding OPAT prior to discharge, reach out to the OPAT team via [employer] Secure Chat (Group: OPAT Referral Team). For all questions regarding OPAT after discharge should be directed to the OPAT Team at (Select Option 3 for IV Antibiotics/PICC Issues) between 8am-5pm. After 5 pm, or during weekends/[place] holidays, please call the paging tag meter operator at to reach the on-call ID [...] Note Rosa Perdomo 74 y.o. female CSN: [id number] Admission: 01/15/2025 9:57 PM Primary Problem: Postoperative sepsis (CMS/HCC) Anticipated Discharge Date: 01/23 Has Discharge Plans Changed? No - home or agreeable to SNF (requesting [place] [facility] if needed) Medicare Second Notice: NA [...] orders and - eval pending. Patient requesting [place] SNF if needed. CM will continue to [...] Please call with any questions or concerns. [phone] Collins Thorne MD Resident Physician, PGY-1 Department of Neurosurgery [facility] Cosigned by Fransisco Farley MD at [...] PM EST Operative Note Date: 01/16/2025 Location: [place] Name: Rosa Perdomo, : 1950, Diagnoses: Pre-op Diagnosis MRSA bacteremia Infection of spinal cord stimulator, initial encounter Wound infection Post-op Diagnosis MRSA bacteremia Infection of spinal cord stimulator, initial encounter Wound infection Procedure(s): Explantation of entire spinal cord stimulator system (leads and IPG) Irrigation and debridement of midline lumbar and right paraspinal wounds Attending Surgeon(s): * Fransisco Farley - Primary Procurement Accountant(s): * Janene Terrell MD - Resident - [...] depression and anxiety, GERD was transferred to [facility] from outside facility for concern of MRSA [...] showed MRSA and she was transferred to [facility] for further management. It appears that prior to the tr [facility] a PICC was placed while blood cultures were pending. Upon admission at [facility], no discharge was noted, but extensive cellulitis [...] Value Units Date/Time Blood Culture (Aerobic/Anaerobet Set) [[id number]] Collected: 01/16/25 0128 Order Status: Completed Specimen: Blood from Hand, Right Updated: 01/16/25 0501 Culture Culture in lab Antimicrobials: -- Vancomycin [id number] 01/16 - present -- Cefepime IV 2g Q12H 01/16 - present -- Metronidazole PO 500mg Q8H 01/16 - present Assessment: Patient Summary: Rosa Perdomo is a 74 y.o. female with history of DM2, hypertension, depression and anxiety, GERD was transferred to [facility] from outside facility for concern of MRSA bacteremia on 01/15. About 3 weeks ago she underwent spinal cord stimulator placement for spinal arthritis pain management. Blood cultures obtained at the facility (01/14) showed MRSA and she was transferred to [facility] for further management. Blood cultures collected at [facility] on 01/16 show NGTD. VINCENT took her [...] using miconazole nitrate ointment BID. Wound Assessment [place];Denuded Rebecca-Wound Assessment Red;Rash Treatments Other (Comment) (ordered [...] Note Rosa Perdomo 74 y.o. female CSN: [id number] Admission: 01/15/2025 9:57 PM Primary Problem: Postoperative sepsis (CMS/HCC) [facility] reviewed chart and spoke with patient and spouse at bedside to complete this Initial Case Management Assessment. PCP: Chase Gunn MD Emergency Contact: Extended Emergency Contact Information Primary Emergency Contact: Westley Perdomo Relation: Spouse Merchandising Manager needed? No Secondary Emergency Contact: Oumou Ocasio Relation: Daughter Insurance: Primary Visit Coverage Payer Plan Sponsor Code Group Number Group Name MEDICARE MEDICARE A & B -- -- -- Primary Visit Coverage Subscriber Subscriber ID Subscriber Name Subscriber SSN Subscriber Address [id number] ROSA PERDOMO [id number] [place] [address] Secondary Visit Coverage Payer Plan Sponsor Code Group Number Group Name [facility] -- [id number] -- Secondary Visit Coverage Subscriber Subscriber ID Subscriber Name Subscriber SSN Subscriber Address [id number] WESTLEY PERDOMO -- [address] [place] [address] Patient information: Primary Caregiver: Self Accompanied by/Relationship: spouse Support System: Immediate family Daily Living Activities: Functional Status: Independent Living Arrangements: Spouse/Significant other Type of Residence: Private residence, Multi Level (lives only on first floor, ramp entry) [address] [place] [address] Smoker in the Home?: Yes Current DME: [...] rehab Assistance Available at Discharge: Spouse home 24/7 Discharge Transport: TBD (pending OR) Follow Up Transport: spouse Home Health / Home Infusion / Outpatient Dialysis Services: Denies HH, HD and HI Living Will/Advance Directive/Power of Supervisor Painting /Guardian: Have you reviewed your Advance Directive [...] is recommended, would like to go to [place]. CM will continue to follow for discharge needs. Amanda Meza RN * Consults - Nani Leija RD - 01/16/2025 9:06 AM ESTAssociated Order(s): IP CONSULT TO NUTRITION SERVICES Adult Nutrition Evaluation Note Rosa Perdomo 74 y.o. female CSN: [id number] Room/Bed 135/135A Nutrition evaluation type: assessment Reason for evaluation: provider consult Hospital course: 74 y/o F presented as a transfer from OSH for MRSA bacteremia. 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 To OR 01/16 for exploration vs removal [...] (98.6 ??F) Oxygen Therapy: None (Room air) [place] Coma Scale Score: 15 Isael Scale Score: [...] 37.81 Weight Evaluation: Obese-Class 2 (BMI 35-39.9) [place] Body Weight (kg): 52.2 Percent [place] Body Weight: 185 Adjusted Body Weight (kg): 63.4 Wt Readings from Last 10 Encounters: 01/15/25 96.8 kg (213 lb 6.5 oz) 07/30/22 89.8 kg (198 lb) Estimated Needs: Metabolic Cart Study Results: Current Nutrition Intake: Diet Order: NPO Diet Experience and Nutrition History: Diet Education Provided: Will monitor Pertinent home medications: Quaker needs: Nutrition Focused Physical Exam: Physical exam [...] Please call with any questions or concerns. [phone] Collins Thorne MD Resident Physician, PGY-1 Department of Neurosurgery [facility] Attending Attestation - Fransisco Yarbrough MD: [...] Skin Protection: transparent dressing maintained Taken 01/15/2025 220 Activity Management: activity adjusted per tolerance Head [...] continue to follow. Submitted by: Rajeev Vasquez, Sarah 01/16/2025 1:30 AM * H&P - Naina Dubois, BIOMEDICAL EQUIPMENT SPECIALIST - 01/16/2025 12:41 AM EST Images from the original note were not included. Hospital Medicine History and Physical Chief Complaint: Cellulitis of surgical site and fever History of Present Illness: Rosa Perdomo is a 74 y.o. year-old female with PMH DM2, HTN, depression with anxiety, seizure disorder, GERD, acute diarrheal illness (recent C. diff), transferred here to [facility] from OSH for MRSA bacteremia. Spinal cord [...] Family History: Family History[3] Social History: Living: [place] [address] with family Marital Status: Alcohol Use: denies [...] for: O2SAT , BD , BE , YGN1SMW , PCO2 , PH , PO2 , EMU0CDNI Venous Blood Gas: No results found for: BDVEN , BEVEN , YQE3YFD , JOX7MMY , PO2VEN , B4KCJCAP , [id number] Microbiology: Results Procedure Component Value Units Date/Time Blood Culture (Aerobic/Anaerobet Set) [[id number]] Order Status: Sent Specimen: Blood, Venous Imaging [...] illness (recent C. diff), transferred here to [facility] from OSH for MRSA bacteremia. Spinal cord [...] L spine w/wo contrast pending -LR @ 100/tm-nw-okgqqdox as appropriate -Continuous telemetry 03/12 hospital transfer [...] APRN Department of Internal Medicine Division of [facility] Medicine Secure chat preferred [1] Past Medical [...] (vial adapter required), 1,500 mg, Intravenous, q24h, Cailtyn Tay MD vancomycin (Vancocin) 2,500 mg in sodium chloride 0.9 % 500 mL IVPB, 25 mg/kg, Intravenous, Once, Caitlyn Tay MD, 2,500 mg at 01/16/25 0136 Vortioxetine HBr (Trintellix) tablet 20 mg, 20 [...] Description 02/14/2025 1:00 PM EST Office Visit [address] [phone] Asher Sinha MD [address] [facility] [address] [place] [id number] 03/27/2025 8:30 AM EST Consult ID Clinic [facility] [address] [place] [address] Fransisco Farley MD [address] [place] [address] Pending Results Name Type Priority [...] UNSOLICITED RESULTS Routine 01/16/2025 3:19 PM EST NM EXPLORE WOUND,ABDOMEN/FLANK/BA CK 01/16/2025 3:09 PM EST [...] Plasma 14.9 ug/mL 01/31/2025 2:32 PM EST [facility] Blood Venous blood specimen / Unknown Venipuncture / Unknown 01/31/2025 12:57 PM EST 01/31/2025 1:01 PM EST us Merlin Massey MD LAB BLOOD ORDERABLES Final Resul t [facility] [address] [place] [address] * (ABNORMAL) Comprehensive metabolic panel (01/31/2025 12:57 PM EST) Glucose, Plasma 177(H) 74 - 99 mg/dL 01/31/2025 2:32 PM EST [facility] BUN, Plasma 19 8 - 23 mg/dL 01/31/2025 2:32 PM EST [facility] Creatinine, Plasma 1.15(H) 0.60 - 1.10 mg/dL 01/31/2025 2:32 PM EST [facility] BUN/Creatinine Ratio 17 01/31/2025 2:32 PM EST [facility] Sodium, Plasma 138 136 - 145 mmol/L 01/31/2025 2:32 PM EST [facility] Potassium, Plasma 4.1 3.6 - 4.9 mmol/L 01/31/2025 2:32 PM EST [facility] Chloride, Plasma 98 97 - 107 mmol/L 01/31/2025 2:32 PM EST [facility] CO2, Plasma 27 22 - 29 mmol/L 01/31/2025 2:32 PM EST [facility] Anion Gap 13 6 - 16 mmol/L 01/31/2025 2:32 PM EST [facility] Total Calcium, Plasma 9.4 8.9 - 10.2 mg/dL 01/31/2025 2:32 PM EST [facility] Total Protein 6.9 6.3 - 7.9 g/dL 01/31/2025 2:32 PM EST [facility] Albumin, Plasma 3.8 3.5 - 5.2 g/dL 01/31/2025 2:32 PM EST [facility] AST, Plasma 29 10 - 35 U/L 01/31/2025 2:32 PM EST [facility] ALT, Plasma 24 10 - 35 U/L 01/31/2025 2:32 PM EST [facility] Alkaline Phosphatase, Plasma 121 46 - 142 U/L 01/31/2025 2:32 PM EST [facility] Total Bilirubin, Plasma 0.2 0.2 - 1.1 mg/dL 01/31/2025 2:32 PM EST [facility] eGFRcr 50.1 mL/min/1.7 3m*2 01/31/2025 2:32 PM EST [facility] Comment:Reported eGFRcr in m L/min/1.73m2 is based the CKD-EPI 2020 equation that does not use a race coefficient. Blood Venous blood specimen / Unknown Venipuncture / Unknown 01/31/2025 12:57 PM EST 01/31/2025 1:01 PM EST us Merlin Massey MD LAB BLOOD ORDERABLES Final Resul t [facility] [address] [place] [address] * (ABNORMAL) CBC and Differential (01/31/2025 12:57 PM EST) WBC Count 5.78 3.70 - 10.30 10*3/uL LAB HEMATOLOGY METHOD 01/31/2025 2:26 PM EST [facility] RBC Count 3.46(L) 3.90 - 5.20 10*6/uL LAB HEMATOLOGY METHOD 01/31/2025 2:26 PM EST [facility] HGB 10.8(L) 11.2 - 15.7 g/dL LAB HEMATOLOGY METHOD 01/31/2025 2:26 PM [facility] HCT 34.3 34.0 - 45.0 % LAB HEMATOLOGY METHOD 01/31/2025 2:26 PM [facility] Platelet Count 313 155 - 369 10*3/uL LAB HEMATOLOGY METHOD 01/31/2025 2:26 PM [facility] MCV 99(H) 79 - 98 fL LAB HEMATOLOGY METHOD 01/31/2025 2:26 PM [facility] MCH 31.2 26.0 - 32.0 pg LAB HEMATOLOGY METHOD 01/31/2025 2:26 PM [facility] MCHC 31.5 30.7 - 35.5 g/dL LAB HEMATOLOGY METHOD 01/31/2025 2:26 PM [facility] RDW 14.6(H) 11.5 - 14.5 % LAB HEMATOLOGY METHOD 01/31/2025 2:26 PM [facility] MPV 9.8 8.8 - 12.5 fL LAB HEMATOLOGY METHOD 01/31/2025 2:26 PM [facility] nRBC 0.0 <=0.0 per 100 WBCs LAB HEMATOLOGY METHOD 01/31/2025 2:26 PM [facility] Differential Type Automated LAB HEMATOLOGY METHOD 01/31/2025 2:26 PM [facility] Neutrophils % 58 % LAB HEMATOLOGY METHOD 01/31/2025 2:26 PM [facility] Lymphocytes % 23 % LAB HEMATOLOGY METHOD 01/31/2025 2:26 PM [facility] Monocytes % 12 % LAB HEMATOLOGY METHOD 01/31/2025 2:26 PM [facility] Eosinophils % 6 % LAB HEMATOLOGY METHOD 01/31/2025 2:26 PM [facility] Basophils % 1 % LAB HEMATOLOGY METHOD 01/31/2025 2:26 PM [facility] Immature Granulocytes % 0 % LAB HEMATOLOGY METHOD 01/31/2025 2:26 PM [facility] Neutrophils Absolute 3.37 1.60 - 6.10 10*3/uL LAB HEMATOLOGY METHOD 01/31/2025 2:26 PM [facility] Lymphocytes Absolute 1.33 1.20 - 3.90 10*3/uL LAB HEMATOLOGY METHOD 01/31/2025 2:26 PM EST [facility] Monocytes Absolute 0.71 0.30 - 0.90 10*3/uL LAB HEMATOLOGY METHOD 01/31/2025 2:26 PM EST [facility] Eosinophils Absolute 0.32 0.00 - 0.50 10*3/uL LAB HEMATOLOGY METHOD 01/31/2025 2:26 PM EST [facility] Basophils Absolute 0.04 0.00 - 0.10 10*3/uL LAB HEMATOLOGY METHOD 01/31/2025 2:26 PM EST [facility] Immature Granulocytes Absolute 0.01 0.00 - 0.06 10*3/uL LAB HEMATOLOGY METHOD 01/31/2025 2:26 PM EST [facility] Blood Venous blood specimen / Unknown Venipuncture / Unknown 01/31/2025 12:57 PM EST 01/31/2025 1:01 PM EST Narrative [facility] - 01/31/2025 2:26 PM EST Therapeutic decision making should be based on absolute values, rather than percentages. us Merlin Massey MD LAB BLOOD ORDERABLES Final Resul t [facility] [address] [place] [address] * (ABNORMAL) POCT glucose meter (01/23/2025 8:18 AM EST) POCT Glucose 147(H) 74 - 99 mg/dL 01/23/2025 8:20 AM EST [facility] Comment:Accuracy of a glucos e result [...] Comment 01/23/2025 8:20 AM EST [facility] Senior Financial Consultant ID Benji Gilbert 01/23/2025 8:20 AM EST [facility] Device ID [id number] 01/23/2025 8:20 AM EST [facility] Specimen Type POC Capillary 01/23/2025 8:20 AM EST [facility] Blood Capillary blood specimen / Unknown 01/23/2025 8:18 AM EST 01/23/2025 8:20 AM EST us Merlin Massey MD LAB POINT OF CARE TE ST DOCKED DEVICE UNSOLICITED RESULTS Final Result Performing Organization Address City/[facility] Co de Phone Number [facility] [address] [place] [address] * (ABNORMAL) POCT glucose meter (01/22/2025 8:20 [...] Comment 01/22/2025 8:26 PM EST [facility] Senior Financial Consultant ID Felisa Sarmiento 025 8:26 PM EST [facility] Device ID [id number] 01/22/2025 8:26 PM EST [facility] Specimen Type POC Capillary 01/22/2025 8:26 PM EST [facility] Blood Capillary blood specimen / Unknown 01/22/2025 8:20 PM EST 01/22/2025 8:26 PM EST us Cleve Deleon MD LAB POINT OF CARE TE ST DOCKED DEVICE UNSOLICITED RESULTS Final Result Performing Organization Address City/[facility]/ZIP Co de Phone Number [facility] [address] [place] [address] * (ABNORMAL) POCT glucose meter (01/22/2025 5:05 [...] 01/22/2025 5:06 PM EST [facility] Senior Financial Consultant ID Jayy Travis 01/23/20 5:06 PM EST [facility] Device ID [id number] 01/22/2025 5:06 PM EST [facility] Specimen Type POC Capillary 01/22/2025 5:06 PM EST [facility] Blood Capillary blood specimen / Unknown 01/22/2025 5:05 PM EST 01/22/2025 5:06 PM EST us Cleve Deleon MD LAB POINT OF CARE TE ST DOCKED DEVICE UNSOLICITED RESULTS Final Result Performing Organization Address City/[facility] Co de Phone Number [facility] [address] [place] [address] * (ABNORMAL) POCT glucose meter (01/22/2025 11:53 AM EST) POCT Glucose 229(H) 74 - 99 mg/dL 01/22/2025 11:55 AM EST [facility] Comment:Accuracy of a glucos e result [...] 01/22/2025 11:55 AM EST [facility] Senior Financial Consultant ID aJyy Travis 01/23/20 11:55 AM EST [facility] Device ID [id number] 01/22/2025 11:55 AM EST [facility] Specimen Type POC Capillary 01/22/2025 11:55 AM EST [facility] Blood Capillary blood specimen / Unknown 01/22/2025 11:53 AM EST 01/22/2025 11:55 AM EST us Cleve Deleon MD LAB POINT OF CARE TE ST DOCKED DEVICE UNSOLICITED RESULTS Final Result Performing Organization Address City/[facility]/ZIP Co de Phone Number [facility] [address] [place] [address] * (ABNORMAL) POCT glucose meter (01/22/2025 7:51 AM EST) POCT Glucose 141(H) 74 - 99 mg/dL 01/22/2025 7:52 AM EST [facility] Comment:Accuracy of a glucos e result [...] for testing. Comment 01/22/2025 7:52 AM EST [facility] Senior Financial Consultant ID Jayy Travis 01/23/20 7:52 AM EST [facility] Device ID [id number] 01/22/2025 7:52 AM EST [facility] Specimen Type POC Capillary 01/22/2025 7:52 AM EST [facility] Blood Capillary blood specimen / Unknown 01/22/2025 7:51 AM EST 01/22/2025 7:52 AM EST Cleve Deleon MD LAB POINT OF CARE TE ST DOCKED DEVICE UNSOLICITED RESULTS Final Result [facility] [address] [place] [address] * Vancomycin, Peak, Plasma Please draw ~2 hours after 0300 dose on 01/22 finishes infusing. Consider obtaining level via peripheral stick. If peripheral stick is not feasible, please ensure that line is flushed well prior to drawing level. Thanks! (01/22/2025 6:32 AM EST) Vancomycin, Peak, Plasma 29.1 20.0 - 40.0 ug/mL 01/22/2025 7:07 AM EST [facility] Blood Venous blood specimen / Unknown Venipuncture / Unknown 01/22/2025 6:32 AM EST 01/22/2025 6:37 AM EST Narrative [facility] - 01/22/2025 7:07 AM EST Therapeutic Peak level: 20-40ug/mL Supra-therapeutic Peak level: >40 ug/mL us Cleve Deleon MD LAB BLOOD ORDERABLES Final Re sult Performing Organization Address [facility] Co de Phone Number [facility] [address] [place] [address] * Vancomycin, Trough, Plasma Please draw ~30 minutes prior to dose due at 0300 on 01/22. ??Please do NOT hold dose awaiting level to return. Consider obtaining level via peripheral stick. If peripheralstick is not feasible, please ensure that line/p... (01/22/2025 3:04 AM EST) [facility] Vancomycin, Trough, Plasma 13.7 10.0 - 20.0 ug/mL 01/22/2025 3:45 AM EST [facility] Blood Venous blood specimen / Unknown Venipuncture / Unknown 01/22/2025 3:04 AM EST 01/22/2025 3:15 AM EST Narrative [facility] - 01/22/2025 3:45 AM EST Therapeutic Trough level: 10-20ug/mL Supra-therapeutic Trough level: >20 ug/mL Cleve Deleon MD LAB BLOOD ORDERABLES Final Re sult Performing Organization Address [facility] Co de Phone Number [facility] [address] [place] [address] * (ABNORMAL) POCT glucose meter (01/21/2025 9:42 PM EST) [facility] POCT Glucose 186(H) 74 - 99 mg/dL 01/21/2025 9:43 PM EST [facility] Comment:Accuracy of a glucos e result [...] for testing. Comment 01/21/2025 9:43 PM EST [facility] Senior Financial Consultant ID Alice Garber Juan 01/21/2025 9:43 PM EST [facility] Device ID [id number] 01/21/2025 9:43 PM EST [facility] Specimen Type POC Capillary 01/21/2025 9:43 PM EST [facility] Blood Capillary blood specimen / Unknown 01/21/2025 9:42 PM EST 01/21/2025 9:43 PM EST us Cleve Deleon MD LAB POINT OF CARE TE ST DOCKED DEVICE UNSOLICITED RESULTS Final Result Performing Organization Address City/[facility] Co de Phone Number [facility] [address] [place] [address] * (ABNORMAL) POCT glucose meter (01/21/2025 5:12 [...] Comment 01/21/2025 5:14 PM EST [facility] Senior Financial Consultant ID Garrett Tabradford 01/21/2025 5:14 PM EST [facility] Device ID [id number] 01/21/2025 5:14 PM EST [facility] Specimen Type POC Capillary 01/21/2025 5:14 PM EST [facility] Blood Capillary blood specimen / Unknown 01/21/2025 5:12 PM EST 01/21/2025 5:14 PM EST us Cleve Deleon MD LAB POINT OF CARE TE ST DOCKED DEVICE UNSOLICITED RESULTS Final Result Performing Organization Address City/[facility]/ZIP Co de Phone Number [facility] [address] [place] [address] * (ABNORMAL) POCT glucose meter (01/21/2025 12:15 [...] Comment 01/21/2025 12:20 PM EST [facility] Senior Financial Consultant ID Alysa Quinn 01/21/2025 12:20 PM EST [facility] Device ID [id number] 01/21/2025 12:20 PM EST [facility] Specimen Type POC Capillary 01/21/2025 12:20 PM EST [facility] Blood Capillary blood specimen / Unknown 01/21/2025 12:15 PM EST 01/21/2025 12:20 PM EST us Cleve Deleon MD LAB POINT OF CARE TE ST DOCKED DEVICE UNSOLICITED RESULTS Final Result Performing Organization Address City/State/[facility] Co de Phone Number [facility] [address] [place] [address] * (ABNORMAL) POCT glucose meter (01/21/2025 8:15 AM EST) POCT Glucose 134(H) 74 - 99 mg/dL 01/21/2025 8:19 AM EST [facility] Comment:Accuracy of a glucos [...] for testing. Comment 01/21/2025 8:19 AM EST [facility] Senior Financial Consultant ID Alysa Quinn 01/21/2025 8:19 AM EST [facility] Device ID [id number] 01/21/2025 8:19 AM EST [facility] Specimen Type POC Capillary 01/21/2025 8:19 AM EST [facility] Blood Capillary blood specimen / Unknown 01/21/2025 8:15 AM EST 01/21/2025 8:19 AM EST us Cleve Deleon MD LAB POINT OF CARE TE ST DOCKED DEVICE UNSOLICITED RESULTS Final Result Performing Organization Address [facility] Co de Phone Number [facility] [address] [place] [address] * (ABNORMAL) POCT glucose meter (01/20/2025 7:48 [...] for testing. Comment 01/20/2025 7:49 PM EST [facility] Senior Financial Consultant ID Silva Coates 025 7:49 PM EST [facility] Device ID [id number] 01/20/2025 7:49 PM EST [facility] Specimen Type POC Capillary 01/20/2025 7:49 PM EST [facility] Blood Capillary blood specimen / Unknown 01/20/2025 7:48 PM EST 01/20/2025 7:49 PM EST Cleve Deleon MD LAB POINT OF CARE TE ST DOCKED DEVICE UNSOLICITED RESULTS Final Result Performing Organization Address [facility] de Phone Number [facility] [address] [place] [address] * XR Chest 1 View (01/20/2025 5:57 [...] Ha RN Authorized by: Cleve Deleon MD [place] Protocol: Verbal consent obtained?: Yes Written consent [...] preference. Patient position: Supine Catheter Lot #: [id number] Catheter manager material: [employer] management Catheter placed: Single lumen Catheter size: 4 [...] - 99 mg/dL 01/20/2025 5:06 PM EST [facility] Comment:Accuracy of a glucos e result [...] for testing. Comment 01/20/2025 5:06 PM EST [facility] Senior Financial Consultant ID KatieJane 01/20/2025 5:06 PM EST [facility] Device ID [id number] 01/20/2025 5:06 PM EST [facility] Specimen Type POC Capillary 01/20/2025 5:06 PM EST [facility] Blood Capillary blood specimen / Unknown 01/20/2025 5:05 PM EST 01/20/2025 5:06 PM EST Cleve Deleon MD LAB POINT OF CARE TE ST DOCKED DEVICE UNSOLICITED RESULTS Final Result Performing Organization Address City/[facility] Co de Phone Number [facility] [address] [place] [address] * (ABNORMAL) POCT glucose meter (01/20/2025 11:57 AM EST) [facility] Signature POCT Glucose 228(H) 74 - 99 mg/dL [...] Comment 01/20/2025 11:59 AM EST [facility] Senior Financial Consultant ID KatieJane og 01/20/2025 11:59 AM EST [facility] Device ID [id number] 01/20/2025 11:59 AM EST [facility] Specimen Type POC Capillary 01/20/2025 11:59 AM EST [facility] Blood Capillary blood specimen / Unknown 01/20/2025 11:57 AM EST 01/20/2025 11:59 AM EST us Cleve Deleon MD LAB POINT OF CARE TE ST DOCKED DEVICE UNSOLICITED RESULTS Final Result Performing Organization Address City/[facility]/ZIP Co de Phone Number [facility] [address] [place] [address] * SEND SARA MESSAGE (01/20/2025 11:02 AM EST) Urine Urine specimen obtained by clean catch procedure / Unknown Non-blood Collection / Unknown 01/20/2025 11:02 AM EST 01/20/2025 11:06 AM EST us Cleve Deleon MD LAB URINE ORDERABLES Final Re sult Performing Organization Address [facility] Co de Phone Number [facility] [address] [place] [address] * (ABNORMAL) Urine Culture (01/20/2025 11:02 AM EST) Culture 10,000 - 100,000 CFU/mL Trista albicans(A) 01/22/2025 7:50 AM EST [facility] Comment:This isolate has bee n identified using the FDA Approved Doubles Alley System Urine Urine specimen obtained by clean catch procedure / Unknown Non-blood Collection / Unknown 01/20/2025 11:02 AM EST 01/20/2025 11:06 AM EST us Cleve Deleon MD LAB MICROBIOLOGY - GENERAL OR DERABLES Final Result Performing Organization Address [facility] Co de Phone Number [facility] [address] [place] [address] * Urinalysis Microscopic Examination (01/20/2025 11:02 AM EST) Urine Urine specimen obtained by clean catch procedure / Unknown Non-blood Collection / Unknown 01/20/2025 11:02 AM EST 01/20/2025 11:06 AM EST us Cleve Deleon MD LAB URINE ORDERABLES Final Re sult Performing Organization Address [facility]/ZIP Co de Phone Number [facility] [address] [place] [address] * Urine Avery Panel (01/20/2025 11:02 AM EST) Extra Sent for Culture 01/20/2025 1:02 PM EST [facility] Urine Urine specimen obtained by clean catch procedure / Unknown Non-blood Collection / Unknown 01/20/2025 11:02 AM EST 01/20/2025 11:06 AM EST us Cleve Deleon MD LAB URINE ORDERABLES Final Re sult [facility] [address] [place] [address] * (ABNORMAL) Urinalysis with reflex microscopic (Culture NOT Included) (01/20/2025 11:02 AM EST) Color, Urine Yellow LAB URINALYSIS - AUTOMATED METHOD 01/20/2025 11:24 AM [facility] Clarity, Urine Cloudy LAB URINALYSIS - AUTOMATED METHOD 01/20/2025 11:24 AM [facility] Spec [place], Urine 1.017 1.005 - 1.030 LAB URINALYSIS - AUTOMATED METHOD 01/20/2025 11:24 AM [facility] pH, Urine 6.5 5.0 - 8.0 LAB URINALYSIS - AUTOMATED METHOD 01/20/2025 11:24 AM [facility] Protein, Urine Trace(A) Negative mg/dL LAB URINALYSIS - AUTOMATED METHOD 01/20/2025 11:24 AM [facility] Glucose, Urine >=1000(A) Negative mg/dL LAB URINALYSIS - AUTOMATED METHOD 01/20/2025 11:24 AM [facility] Ketones, Urine Negative Negative mg/dL LAB URINALYSIS - AUTOMATED METHOD 01/20/2025 11:24 AM [facility] Blood, Urine Trace(A) Negative LAB URINALYSIS - AUTOMATED METHOD 01/20/2025 11:24 AM [facility] Bilirubin, Urine Negative Negative LAB URINALYSIS - AUTOMATED METHOD 01/20/2025 11:24 AM [facility] Urobilinogen, Urine 0.2 0.2 to 1.0 mg/dL LAB URINALYSIS - AUTOMATED METHOD 01/20/2025 11:24 AM [facility] Leukocytes, Urine Small(A) Negative LAB URINALYSIS - AUTOMATED METHOD 01/20/2025 11:24 AM [facility] Nitrite, Urine Negative Negative LAB URINALYSIS - AUTOMATED METHOD 01/20/2025 11:24 AM [facility] RBC, Urine 2 0 to 3 /HPF LAB URINALYSIS - AUTOMATED METHOD 01/20/2025 11:24 AM [facility] WBC, Urine >50(A) 0 to 5 /HPF LAB URINALYSIS - AUTOMATED METHOD 01/20/2025 11:24 AM EST [facility] Squamous Epithelial Cells 0 - 2 0 to 5 /HPF LAB URINALYSIS - AUTOMATED METHOD 01/20/2025 11:24 AM EST [facility] Hyaline Casts 3 - 5 0 to 5 /LPF LAB URINALYSIS - AUTOMATED METHOD 01/20/2025 11:24 AM EST [facility] Bacteria, Urine Negative Negative LAB URINALYSIS - AUTOMATED METHOD 01/20/2025 11:24 AM EST [facility] Yeast (Budding and/or Pseudohyphae) Present(A) Absent LAB URINALYSIS - AUTOMATED METHOD 01/20/2025 11:24 AM EST [facility] Urine Urine specimen obtained by clean catch procedure / Unknown Non-blood Collection / Unknown 01/20/2025 11:02 AM EST 01/20/2025 11:06 AM EST us Cleve Deleon MD LAB URINE ORDERABLES Final Re sult [facility] [address] [place] [address] * (ABNORMAL) POCT glucose meter (01/20/2025 8:03 [...] Comment 01/20/2025 8:05 AM EST [facility] Senior Financial Consultant ID KatieJane og 01/20/2025 8:05 AM EST [facility] Device ID [id number] 01/20/2025 8:05 AM EST [facility] Specimen Type POC Capillary 01/20/2025 8:05 AM EST [facility] Blood Capillary blood specimen / Unknown 01/20/2025 8:03 AM EST 01/20/2025 8:05 AM EST us Cleve Deleon MD LAB POINT OF CARE TE ST DOCKED DEVICE UNSOLICITED RESULTS Final Result [facility] [address] [place] [address] * (ABNORMAL) Creatine Kinase (CK), Total (01/20/2025 5:02 AM EST) Creatine Kinase, Plasma 290(H) 37 - 168 U/L 01/20/2025 5:37 AM EST [facility] Blood Venous blood specimen / Unknown Venipuncture / Unknown 01/20/2025 5:02 AM EST 01/20/2025 5:07 AM EST us Cleve Deleon MD LAB BLOOD ORDERABLES Final Re sult Performing Organization Address City/[facility]/ZIP Co de Phone Number [facility] [address] [place] [address] * (ABNORMAL) Basic metabolic panel (01/20/2025 5:02 AM EST) Glucose, Plasma 151(H) 74 - 99 mg/dL 01/20/2025 5:37 AM EST [facility] BUN, Plasma 12 8 - 23 mg/dL 01/20/2025 5:37 AM EST [facility] Creatinine, Plasma 0.79 0.60 - 1.10 mg/dL 01/20/2025 5:37 AM EST [facility] BUN/Creatinine Ratio 15 01/20/2025 5:37 AM EST [facility] Sodium, Plasma 139 136 - 145 mmol/L 01/20/2025 5:37 AM EST [facility] Potassium, Plasma 3.6 3.6 - 4.9 mmol/L 01/20/2025 5:37 AM EST [facility] Chloride, Plasma 102 97 - 107 mmol/L 01/20/2025 5:37 AM EST [facility] CO2, Plasma 28 22 - 29 mmol/L 01/20/2025 5:37 AM EST [facility] Anion Gap 9 6 - 16 mmol/L 01/20/2025 5:37 AM EST [facility] Total Calcium, Plasma 8.2(L) 8.9 - 10.2 mg/dL 01/20/2025 5:37 AM EST [facility] eGFRcr 78.6 mL/min/1.7 3m*2 01/20/2025 5:37 AM EST [facility] Comment:Reported eGFRcr in m L/min/1.73m2 is based the CKD-EPI 2020 equation that does not use a race coefficient. Blood Venous blood specimen / Unknown Venipuncture / Unknown 01/20/2025 5:02 AM EST 01/20/2025 5:07 AM EST us Cleve Deleon MD LAB BLOOD ORDERABLES Final Re sult Performing Organization Address City/[facility] Co de Phone Number [facility] [address] [place] [address] * (ABNORMAL) POCT glucose meter (01/19/2025 8:10 PM EST) POCT Glucose 213(H) 74 - 99 mg/dL 01/19/2025 8:12 PM EST [facility] Comment:Accuracy of a glucos [...] Comment 01/19/2025 8:12 PM EST [facility] Senior Financial Consultant ID Silva Coates 025 8:12 PM EST [facility] Device ID [id number] 01/19/2025 8:12 PM EST [facility] Specimen Type POC Capillary 01/19/2025 8:12 PM EST [facility] Blood Capillary blood specimen / Unknown 01/19/2025 8:10 PM EST 01/19/2025 8:12 PM EST us Cleve Deleon MD LAB POINT OF CARE TE ST DOCKED DEVICE UNSOLICITED RESULTS Final Result Performing Organization Address City/[facility] Co de Phone Number [facility] [address] [place] [address] * (ABNORMAL) POCT glucose meter (01/19/2025 5:32 PM EST) [facility] POCT Glucose 197(H) 74 - 99 [...] 01/19/2025 5:33 PM EST [facility] Senior Financial Consultant ID Aleyda Haley 01/19/2025 5:33 PM EST [facility] Device ID [id number] 01/19/2025 5:33 PM EST [facility] Specimen Type POC Capillary 01/19/2025 5:[address] [facility] Blood Capillary blood specimen / Unknown 01/19/2025 5:32 PM EST 01/19/2025 5:33 PM EST Cleve Deleon MD LAB POINT OF CARE TE ST DOCKED DEVICE UNSOLICITED RESULTS Final Result [facility] [address] [place] [address] * (ABNORMAL) POCT glucose meter (01/19/2025 12:21 PM EST) [facility] POCT Glucose 210(H) 74 - 99 [...] 01/19/2025 12:22 PM EST [facility] Senior Financial Consultant ID Aleyda Haley 01/19/2025 12:22 PM EST [facility] Device ID [id number] 01/19/2025 12:22 PM EST [facility] Specimen Type POC Capillary 01/19/2025 12:22 PM EST [facility] Blood Capillary blood specimen / Unknown 01/19/2025 12:21 PM EST 01/19/2025 12:22 PM EST Cleve Deleon MD LAB POINT OF CARE TE ST DOCKED DEVICE UNSOLICITED RESULTS Final Result Performing Organization Address City/[facility]/ZIP Co de Phone Number [facility] [address] [place] [address] * (ABNORMAL) POCT glucose meter (01/19/2025 8:18 AM EST) POCT Glucose 140(H) 74 - 99 mg/dL 01/19/2025 8:20 AM EST [facility] Comment:Accuracy of a glucos [...] for testing. Comment 01/19/2025 8:20 AM EST [facility] Senior Financial Consultant ID Aleyda Haley 01/19/2025 8:20 AM EST [facility] Device ID [id number] 01/19/2025 8:20 AM EST [facility] Specimen Type POC Capillary 01/19/2025 8:20 AM EST [facility] Blood Capillary blood specimen / Unknown 01/19/2025 8:18 AM EST 01/19/2025 8:20 AM EST us Cleve Deleon MD LAB POINT OF CARE TE ST DOCKED DEVICE UNSOLICITED RESULTS Final Result Performing Organization Address City/[facility]/ZIP Co de Phone Number [facility] [address] [place] [address] * Phosphorus (01/19/2025 6:05 AM EST) Phosphorus, Plasma 3.0 2.5 - 4.5 mg/dL 01/19/2025 6:40 AM EST [facility] Blood Venous blood specimen / Unknown Venipuncture / Unknown 01/19/2025 6:05 AM EST 01/19/2025 6:15 AM EST us Cleve Deleon MD LAB BLOOD ORDERABLES Final Re sult Performing Organization Address City/[facility]/ZIP Co de Phone Number [facility] [address] [place] [address] * Magnesium (01/19/2025 6:05 AM EST) Magnesium, Plasma 2.1 1.9 - 2.4 mg/dL 01/19/2025 6:40 AM EST [facility] Blood Venous blood specimen / Unknown Venipuncture / Unknown 01/19/2025 6:05 AM EST 01/19/2025 6:15 AM EST us Cleve Deleon MD LAB BLOOD ORDERABLES Final Re sult Performing Organization Address [facility] Co de Phone Number [facility] [address] [place] [address] * Vancomycin, Peak, Plasma Please draw ~2 hours after 0230 dose of vancomycin finishes infusing. Consider obtaining level via peripheral stick. If peripheral stick is not feasible, please ensure that line is flushed well prior to drawing level. Than... (01/19/2025 6:05 AM EST) Vancomycin, Peak, Plasma 39.7 20.0 - 40.0 ug/mL 01/19/2025 6:42 AM EST [facility] Blood Venous blood specimen / Unknown Venipuncture / Unknown 01/19/2025 6:05 AM EST 01/19/2025 6:15 AM EST Narrative [facility] - 01/19/2025 6:42 AM EST Therapeutic Peak level: 20-40ug/mL Supra-therapeutic Peak level: >40 ug/mL Result Kristyn Deleon MD LAB BLOOD ORDERABLES Final Re sult Performing Organization Address City/[facility]/ZIP Co de Phone Number [facility] [address] [place] [address] * Vancomycin, Trough, Plasma Please draw ~30 minutes prior to dose due at 0230 on 01/19. Please do NOT hold dose awaiting level to return. Consider obtaining level via peripheral stick. If peripheral stick is not feasible, please ensure that line i... (01/19/2025 2:05 AM EST) Pathologist [facility] Vancomycin, Trough, Plasma 16.4 10.0 - 20.0 ug/mL 01/19/2025 2:40 AM EST [facility] Blood Venous blood specimen / Unknown Venipuncture / Unknown 01/19/2025 2:05 AM EST 01/19/2025 2:12 AM EST Narrative [facility] - 01/19/2025 2:40 AM EST Therapeutic Trough level: 10-20ug/mL Supra-therapeutic Trough level: >20 ug/mL Cleve Deleon MD LAB BLOOD ORDERABLES Final Re sult [facility] [address] [place] [address] * (ABNORMAL) POCT glucose meter (01/18/2025 10:05 PM EST) [facility] POCT Glucose 181(H) 74 - 99 mg/dL 01/18/2025 10:43 PM EST [facility] Comment:Accuracy of a glucos e result [...] for testing. Comment 01/18/2025 10:43 PM EST [facility] Senior Financial Consultant ID Felisa Sarmiento 025 10:43 PM EST [facility] Device ID [id number] 01/18/2025 10:43 PM EST [facility] Specimen Type POC Capillary 01/18/2025 10:43 PM EST [facility] Blood Capillary blood specimen / Unknown 01/18/2025 10:05 PM EST 01/18/2025 10:43 PM EST us Cleve Deleon MD LAB POINT OF CARE TE ST DOCKED DEVICE UNSOLICITED RESULTS Final Result Performing Organization Address City/[facility] Co de Phone Number [facility] [address] [place] [address] * (ABNORMAL) POCT glucose meter (01/18/2025 5:34 PM EST) POCT Glucose 227(H) 74 - 99 mg/dL 01/18/2025 9:25 PM EST [facility] Comment:Accuracy of a glucos [...] for testing. Comment 01/18/2025 9:25 PM EST [facility] Senior Financial Consultant ID Renae Mcleod 01/19/20 9:25 PM EST [facility] Device ID [id number] 01/18/2025 9:25 PM EST [facility] Specimen Type POC Capillary 01/18/2025 9:25 PM EST [facility] Blood Capillary blood specimen / Unknown 01/18/2025 5:34 PM EST 01/18/2025 9:25 PM EST us Cleve Deleon MD LAB POINT OF CARE TE ST DOCKED DEVICE UNSOLICITED RESULTS Final Result Performing Organization Address [facility] Co de Phone Number [facility] [address] [place] [address] * Blood Culture (Aerobic/Anaerobet Set) (01/18/2025 1:23 PM EST) Culture No growth at day 5 SADA 01/23/2025 2:02 PM EST [facility] Blood Venous blood specimen / Unknown Venipuncture / Unknown 01/18/2025 1:23 PM EST 01/18/2025 1:34 PM EST us Cleve Deleon MD LAB MICROBIOLOGY - GENERAL OR DERABLES Final Result Performing Organization Address City/[facility]/ZIP Co de Phone Number [facility] [address] [place] [address] * PERIPHERAL IV (SMART[employer] LINK) (01/18/2025 12:54 [...] 01/18/2025 12:01 PM EST [facility] Senior Financial Consultant ID Renae Mcleod 01/19/20 12:01 PM EST [facility] Device ID [id number] 01/18/2025 12:01 PM EST [facility] Specimen Type POC Capillary 01/18/2025 12:01 PM EST [facility] Blood Capillary blood specimen / Unknown 01/18/2025 12:00 PM EST 01/18/2025 12:01 PM EST Cleve Deleon MD LAB POINT OF CARE TE ST DOCKED DEVICE UNSOLICITED RESULTS Final Result Performing Organization Address City/[facility] Co de Phone Number [facility] [address] [place] [address] * (ABNORMAL) POCT glucose meter (01/18/2025 8:25 AM EST) POCT Glucose 146(H) 74 - 99 mg/dL 01/18/2025 8:27 AM EST [facility] Comment:Accuracy of a glucos e result [...] for testing. Comment 01/18/2025 8:27 AM EST [facility] Senior Financial Consultant ID Renae Mcleod 01/19/20 8:27 AM EST [facility] Device ID [id number] 01/18/2025 8:27 AM EST [facility] Specimen Type POC Capillary 01/18/2025 8:27 AM EST [facility] Blood Capillary blood specimen / Unknown 01/18/2025 8:25 AM EST 01/18/2025 8:27 AM EST Cleve Deleon MD LAB POINT OF CARE TE ST DOCKED DEVICE UNSOLICITED RESULTS Final Result Performing Organization Address City/[facility] Co de Phone Number [facility] [address] [place] [address] * (ABNORMAL) CBC and Differential (01/18/2025 4:56 AM EST) WBC Count 10.71(H) 3.70 - 10.30 10*3/uL LAB HEMATOLOGY METHOD 01/18/2025 5:22 AM EST [facility] RBC Count 2.79(L) 3.90 - 5.20 10*6/uL LAB HEMATOLOGY METHOD 01/18/2025 5:22 AM EST [facility] HGB 9.0(L) 11.2 - 15.7 g/dL LAB HEMATOLOGY METHOD 01/18/2025 5:22 AM EST [facility] HCT 27.4(L) 34.0 - 45.0 % LAB HEMATOLOGY METHOD 01/18/2025 5:22 AM EST [facility] Platelet Count 400(H) 155 - 369 10*3/uL LAB HEMATOLOGY METHOD 01/18/2025 5:22 AM EST [facility] MCV 98 79 - 98 fL LAB HEMATOLOGY METHOD 01/18/2025 5:22 AM EST [facility] MCH 32.3(H) 26.0 - 32.0 pg LAB HEMATOLOGY METHOD 01/18/2025 5:22 AM EST [facility] MCHC 32.8 30.7 - 35.5 g/dL LAB HEMATOLOGY METHOD 01/18/2025 5:22 AM EST [facility] RDW 14.3 11.5 - 14.5 % LAB HEMATOLOGY METHOD 01/18/2025 5:22 AM EST [facility] MPV 9.0 8.8 - 12.5 fL LAB HEMATOLOGY METHOD 01/18/2025 5:22 AM EST [facility] nRBC 0.0 <=0.0 per 100 WBCs LAB HEMATOLOGY METHOD 01/18/2025 5:22 AM [facility] Differential Type Automated LAB HEMATOLOGY METHOD 01/18/2025 5:22 AM [facility] Neutrophils % 79 % LAB HEMATOLOGY METHOD 01/18/2025 5:22 AM [facility] Lymphocytes % 9 % LAB HEMATOLOGY METHOD 01/18/2025 5:22 AM EST [facility] Monocytes % 9 % LAB HEMATOLOGY METHOD 01/18/2025 5:22 AM EST [facility] Eosinophils % 2 % LAB HEMATOLOGY METHOD 01/18/2025 5:22 AM EST [facility] Basophils % 0 % LAB HEMATOLOGY METHOD 01/18/2025 5:22 AM EST [facility] Immature Granulocytes % 1 % LAB HEMATOLOGY METHOD 01/18/2025 5:22 AM EST [facility] Neutrophils Absolute 8.43(H) 1.60 - 6.10 10*3/uL LAB HEMATOLOGY METHOD 01/18/2025 5:22 AM EST [facility] Lymphocytes Absolute 0.99(L) 1.20 - 3.90 10*3/uL LAB HEMATOLOGY METHOD 01/18/2025 5:22 AM EST [facility] Monocytes Absolute 0.97(H) 0.30 - 0.90 10*3/uL LAB HEMATOLOGY METHOD 01/18/2025 5:22 AM EST [facility] Eosinophils Absolute 0.21 0.00 - 0.50 10*3/uL LAB HEMATOLOGY METHOD 01/18/2025 5:22 AM EST [facility] Basophils Absolute 0.03 0.00 - 0.10 10*3/uL LAB HEMATOLOGY METHOD 01/18/2025 5:22 AM EST [facility] Immature Granulocytes Absolute 0.08(H) 0.00 - 0.06 10*3/uL LAB HEMATOLOGY METHOD 01/18/2025 5:22 AM EST [facility] Blood Blood sample taken from central line / Unknown Venipuncture / Unknown 01/18/2025 4:56 AM EST 01/18/2025 5:12 AM EST Narrative [facility] - 01/18/2025 5:22 AM EST Therapeutic decision making should be based on absolute values, rather than percentages. Cleve Deleon MD LAB BLOOD ORDERABLES Final Re sult Performing Organization Address City/[facility]/ZIP Co de Phone Number [facility] [address] [place] [address] * (ABNORMAL) Magnesium, Plasma (01/18/2025 4:56 AM EST) Magnesium, Plasma 1.7(L) 1.9 - 2.4 mg/dL 01/18/2025 5:42 AM EST [facility] Blood Blood sample taken from central line / Unknown Venipuncture / Unknown 01/18/2025 4:56 AM EST 01/18/2025 5:12 AM EST Cleve Deleon MD LAB BLOOD ORDERABLES Final Re sult Performing Organization Address City/[facility]/ZIP Co de Phone Number [facility] [address] [place] [address] * (ABNORMAL) Basic Metabolic Panel, Plasma (01/18/2025 4:56 AM EST) Glucose, Plasma 151(H) 74 - 99 mg/dL 01/18/2025 5:42 AM EST [facility] BUN, Plasma 16 8 - 23 mg/dL 01/18/2025 5:42 AM EST [facility] Creatinine, Plasma 0.90 0.60 - 1.10 mg/dL 01/18/2025 5:42 AM EST [facility] BUN/Creatinine Ratio 18 01/18/2025 5:42 AM EST [facility] Sodium, Plasma 142 136 - 145 mmol/L 01/18/2025 5:42 AM EST [facility] Potassium, Plasma 4.0 3.6 - 4.9 mmol/L 01/18/2025 5:42 AM EST [facility] Chloride, Plasma 104 97 - 107 mmol/L 01/18/2025 5:42 AM EST [facility] CO2, Plasma 25 22 - 29 mmol/L 01/18/2025 5:42 AM EST [facility] Anion Gap 13 6 - 16 mmol/L 01/18/2025 5:42 AM EST [facility] Total Calcium, Plasma 8.4(L) 8.9 - 10.2 mg/dL 01/18/2025 5:42 AM EST [facility] eGFRcr 67.2 mL/min/1.7 3m*2 01/18/2025 5:42 AM EST [facility] Comment:Reported eGFRcr in m L/min/1.73m2 is based the CKD-EPI 2020 equation that does not use a race coefficient. Blood Blood sample taken from central line / Unknown Venipuncture / Unknown 01/18/2025 4:56 AM EST 01/18/2025 5:12 AM EST us Cleve Deleon MD LAB BLOOD ORDERABLES Final Re sult [facility] [address] [place] [address] * (ABNORMAL) Phosphorus, Plasma (01/18/2025 4:56 AM EST) Phosphorus, Plasma 1.9(L) 2.5 - 4.5 mg/dL 01/18/2025 5:42 AM EST [facility] Blood Blood sample taken from central line / Unknown Venipuncture / Unknown 01/18/2025 4:56 AM EST 01/18/2025 5:12 AM EST us Cleve Deleon MD LAB BLOOD ORDERABLES Final Re sult Performing Organization Address [facility]/ZIP Co de Phone Number [facility] [address] [place] [address] * Hepatitis C Antibody - ED W/Reflex to HCV Quant PCR (01/18/2025 4:56 AM EST) Hepatitis C Antibody Negative Negative 01/18/2025 5:53 AM EST [facility] Blood Blood sample taken from central line / Unknown Venipuncture / Unknown 01/18/2025 4:56 AM EST 01/18/2025 5:11 AM EST us Cleve Deleon MD LAB BLOOD ORDERABLES Final Re sult Performing Organization Address City/[facility]/ZIP Co de Phone Number [facility] [address] [place] [address] * (ABNORMAL) Hepatic Function Panel (01/18/2025 4:56 AM EST) Pathologist [facility] Direct Bilirubin, Plasma <0.2 <=0.3 mg/dL 01/18/2025 5:42 AM EST [facility] Alkaline Phosphatase, Plasma 263(H) 46 - 142 U/L 01/18/2025 5:42 AM EST [facility] Total Bilirubin, Plasma 0.3 0.2 - 1.1 mg/dL 01/18/2025 5:42 AM EST [facility] Albumin, Plasma 3.0(L) 3.5 - 5.2 g/dL 01/18/2025 5:42 AM EST [facility] Total Protein 6.1(L) 6.3 - 7.9 g/dL 01/18/2025 5:42 AM EST [facility] ALT, Plasma 53(H) 10 - 35 U/L 01/18/2025 5:42 AM EST [facility] AST, Plasma 70(H) 10 - 35 U/L 01/18/2025 5:42 AM EST [facility] Blood Blood sample taken from central line / Unknown Venipuncture / Unknown 01/18/2025 4:56 AM EST 01/18/2025 5:12 AM EST us Cleve Deleon MD LAB BLOOD ORDERABLES Final Re sult Performing Organization Address City/[facility] Co de Phone Number [facility] [address] [place] [address] * (ABNORMAL) POCT glucose meter (01/17/2025 9:24 PM EST) [facility] POCT Glucose 175(H) 74 - 99 mg/dL [...] Comment 01/17/2025 9:27 PM EST [facility] Senior Financial Consultant ID Felisa Sarmiento 025 9:27 PM EST [facility] Device ID [id number] 01/17/2025 9:27 PM EST [facility] Specimen Type POC Capillary 01/17/2025 9:27 PM EST [facility] Blood Capillary blood specimen / Unknown 01/17/2025 9:24 PM EST 01/17/2025 9:27 PM EST us Cleve Deleon MD LAB POINT OF CARE TE ST DOCKED DEVICE UNSOLICITED RESULTS Final Result Performing Organization Address City/[facility] Co de Phone Number [facility] [address] [place] [address] * Hepatitis B Surface Antigen (01/17/2025 7:50 PM EST) [facility] Hepatitis B Surf Antigen Negative Negative 01/17/2025 10:06 PM EST [facility] Blood Arterial blood specimen / Unknown (Central Line) Existing Catheter / Unknown 01/17/2025 7:50 PM EST 01/17/2025 7:54 PM EST us Cleve Deleon MD LAB BLOOD ORDERABLES Final Re sult Performing Organization Address [facility] Co de Phone Number [facility] [address] [place] [address] * Hepatitis B Surface Antibody, Quantitative (01/17/2025 7:50 PM EST) Hepatitis B Surface Antibody, Quantitative <8.00 NonReactiv e: <8, Grayzone: 8 - <12, Reactive: >= 12 mIU/mL 01/17/2025 10:06 PM EST [facility] Comment: Nonreactive. Individual is considered not immune to HBV infection. Blood Arterial blood specimen / Unknown (Central Line) Existing Catheter / Unknown 01/17/2025 7:50 PM EST 01/17/2025 7:54 PM EST us Cleve Deleon MD LAB BLOOD ORDERABLES Final Re sult Performing Organization Address [facility] Co de Phone Number [facility] [address] [place] [address] * Hepatitis B Core Total Antibody IgG,IgM (01/17/2025 7:50 PM EST) Hepatitis B Core Total Antibody IgG,IgM Negative Negative 01/17/2025 10:06 PM EST [facility] Blood Arterial blood specimen / Unknown (Central Line) Existing Catheter / Unknown 01/17/2025 7:50 PM EST 01/17/2025 7:54 PM EST us Cleve Deleon MD LAB BLOOD ORDERABLES Final Re sult Performing Organization Address [facility] Co de Phone Number [facility] [address] [place] [address] * Hepatitis B Core Antibody IgM (01/17/2025 7:50 PM EST) Hepatitis B Core Antibody IgM Negative Negative 01/17/2025 10:06 PM EST [facility] Blood Arterial blood specimen / Unknown (Central Line) Existing Catheter / Unknown 01/17/2025 7:50 PM EST 01/17/2025 7:54 PM EST Cleve Deleon MD LAB BLOOD ORDERABLES Final Re sult [facility] [address] [place] [address] * (ABNORMAL) POCT glucose meter (01/17/2025 5:55 PM EST) POCT Glucose 186(H) 74 - 99 mg/dL 01/17/2025 5:57 PM EST [facility] Comment:Accuracy of a [...] Comment 01/17/2025 5:57 PM EST [facility] Senior Financial Consultant ID Waldemar Duvall, Aleyda 01/17/2025 5:57 PM EST [facility] Device ID [id number] 01/17/2025 5:57 PM EST [facility] Specimen Type POC Capillary 01/17/2025 5:57 PM EST [facility] Blood Capillary blood specimen / Unknown 01/17/2025 5:55 PM EST 01/17/2025 5:57 PM EST us Cleve Deleon MD LAB POINT OF CARE TE ST DOCKED DEVICE UNSOLICITED RESULTS Final Result [facility] [address] [place] [address] * (ABNORMAL) POCT glucose meter (01/17/2025 12:33 [...] Comment 01/17/2025 12:34 PM EST [facility] Senior Financial Consultant ID Aleyda Haley 01/17/2025 12:34 PM EST [facility] Device ID [id number] 01/17/2025 12:34 PM EST [facility] Specimen Type POC Capillary 01/17/2025 12:34 PM EST [facility] Blood Capillary blood specimen / Unknown 01/17/2025 12:33 PM EST 01/17/2025 12:34 PM EST us Cleve Deleon MD LAB POINT OF CARE TE ST DOCKED DEVICE UNSOLICITED RESULTS Final Result Performing Organization Address City/State/[facility] Co de Phone Number [facility] [address] [place] [address] * ECHO, ADULT TRANSTHORACIC COMPLETE (01/17/2025 11:55 [...] is no recent study available for direct [id number] comparison. Left Ventricle The left ventricle is [...] is no recent study available for direct [id number] comparison. us Cleve Deleon MD CV ECHO PROCEDURES Final Resu lt * (ABNORMAL) POCT glucose meter (01/17/2025 5:23 AM EST) POCT Glucose 166(H) 74 - 99 mg/dL 01/17/2025 5:25 AM EST [facility] Comment:Accuracy of a glucos e result [...] for testing. Comment 01/17/2025 5:25 AM EST [facility] Senior Financial Consultant ID Cydney Valiente 5:25 AM EST [facility] Device ID [id number] 01/17/2025 5:25 AM EST [facility] Specimen Type POC Capillary 01/17/2025 5:25 AM EST [facility] Blood Capillary blood specimen / Unknown 01/17/2025 5:23 AM EST 01/17/2025 5:25 AM EST Cleve Deleon MD LAB POINT OF CARE TE ST DOCKED DEVICE UNSOLICITED RESULTS Final Result [facility] [address] [place] [address] * (ABNORMAL) CBC and Differential (01/17/2025 2:31 AM EST) WBC Count 8.74 3.70 - 10.30 10*3/uL LAB HEMATOLOGY METHOD 01/17/2025 3:05 AM EST [facility] RBC Count 2.82(L) 3.90 - 5.20 10*6/uL LAB HEMATOLOGY METHOD 01/17/2025 3:05 AM EST [facility] HGB 8.9(L) 11.2 - 15.7 g/dL LAB HEMATOLOGY METHOD 01/17/2025 3:05 AM EST [facility] HCT 27.9(L) 34.0 - 45.0 % LAB HEMATOLOGY METHOD 01/17/2025 3:05 AM EST [facility] Platelet Count 351 155 - 369 10*3/uL LAB HEMATOLOGY METHOD 01/17/2025 3:05 AM EST [facility] MCV 99(H) 79 - 98 fL LAB HEMATOLOGY METHOD 01/17/2025 3:05 AM EST [facility] MCH 31.6 26.0 - 32.0 pg LAB HEMATOLOGY METHOD 01/17/2025 3:05 AM EST [facility] MCHC 31.9 30.7 - 35.5 g/dL LAB HEMATOLOGY METHOD 01/17/2025 3:05 AM EST [facility] RDW 14.2 11.5 - 14.5 % LAB HEMATOLOGY METHOD 01/17/2025 3:05 AM EST [facility] MPV 9.1 8.8 - 12.5 fL LAB HEMATOLOGY METHOD 01/17/2025 3:05 AM EST [facility] nRBC 0.0 <=0.0 per 100 WBCs LAB HEMATOLOGY METHOD 01/17/2025 3:05 AM EST [facility] Differential Type Automated LAB HEMATOLOGY METHOD 01/17/2025 3:05 AM EST [facility] Neutrophils % 88 % LAB HEMATOLOGY METHOD 01/17/2025 3:05 AM EST [facility] Lymphocytes % 8 % LAB HEMATOLOGY METHOD 01/17/2025 3:05 AM EST [facility] Monocytes % 2 % LAB HEMATOLOGY METHOD 01/17/2025 3:05 AM EST [facility] Eosinophils % 0 % LAB HEMATOLOGY METHOD 01/17/2025 3:05 AM EST [facility] Basophils % 0 % LAB HEMATOLOGY METHOD 01/17/2025 3:05 AM EST [facility] Immature Granulocytes % 2 % LAB HEMATOLOGY METHOD 01/17/2025 3:05 AM EST [facility] Neutrophils Absolute 7.74(H) 1.60 - 6.10 10*3/uL LAB HEMATOLOGY METHOD 01/17/2025 3:05 AM EST [facility] Lymphocytes Absolute 0.68(L) 1.20 - 3.90 10*3/uL LAB HEMATOLOGY METHOD 01/17/2025 3:05 AM EST [facility] Monocytes Absolute 0.17(L) 0.30 - 0.90 10*3/uL LAB HEMATOLOGY METHOD 01/17/2025 3:05 AM [facility] Eosinophils Absolute 0.00 0.00 - 0.50 10*3/uL LAB HEMATOLOGY METHOD 01/17/2025 3:05 AM EST [facility] Basophils Absolute 0.02 0.00 - 0.10 10*3/uL LAB HEMATOLOGY METHOD 01/17/2025 3:05 AM [facility] Immature Granulocytes Absolute 0.13(H) 0.00 - 0.06 10*3/uL LAB HEMATOLOGY METHOD 01/17/2025 3:05 AM EST [facility] Blood Venous blood specimen / Unknown Venipuncture / Unknown 01/17/2025 2:31 AM EST 01/17/2025 2:40 AM EST [facility] - 01/17/2025 3:05 AM EST Therapeutic decision making should be based on absolute values, rather than percentages. us Cleve Deleon MD LAB BLOOD ORDERABLES Final Re sult [facility] [address] [place] [address] * Magnesium, Plasma (01/17/2025 2:31 AM EST) Magnesium, Plasma 2.0 1.9 - 2.4 mg/dL 01/17/2025 3:08 AM EST [facility] Blood Venous blood specimen / Unknown Venipuncture / Unknown 01/17/2025 2:31 AM EST 01/17/2025 2:39 AM EST us Cleve Deleon MD LAB BLOOD ORDERABLES Final Re sult [facility] [address] [place] [address] * (ABNORMAL) Basic Metabolic Panel, Plasma (01/17/2025 2:31 AM EST) Glucose, Plasma 193(H) 74 - 99 mg/dL 01/17/2025 3:08 AM EST [facility] BUN, Plasma 17 8 - 23 mg/dL 01/17/2025 3:08 AM EST [facility] Creatinine, Plasma 0.87 0.60 - 1.10 mg/dL 01/17/2025 3:08 AM EST [facility] BUN/Creatinine Ratio 20 01/17/2025 3:08 AM [facility] [facility] Sodium, Plasma 140 136 - 145 mmol/L 01/17/2025 3:08 AM EST [facility] Potassium, Plasma 4.6 3.6 - 4.9 mmol/L 01/17/2025 3:08 AM EST [facility] Chloride, Plasma 104 97 - 107 mmol/L 01/17/2025 3:08 AM EST [facility] CO2, Plasma 24 22 - 29 mmol/L 01/17/2025 3:08 AM EST [facility] Anion Gap 12 6 - 16 mmol/L 01/17/2025 3:08 AM EST [facility] Total Calcium, Plasma 8.7(L) 8.9 - 10.2 mg/dL 01/17/2025 3:08 AM EST [facility] eGFRcr 70.0 mL/min/1.7 3m*2 01/17/2025 3:08 AM EST [facility] Comment:Reported eGFRcr in m L/min/1.73m2 is based the CKD-EPI 2020 equation that does not use a race coefficient. Blood Venous blood specimen / Unknown Venipuncture / Unknown 01/17/2025 2:31 AM EST 01/17/2025 2:39 AM EST us Cleve Deleon MD LAB BLOOD ORDERABLES Final Re sult Performing Organization Address [facility] de Phone Number [facility] [address] [place] [address] * Phosphorus, Plasma (01/17/2025 2:31 AM EST) Pathologist [facility] Phosphorus, Plasma 4.3 2.5 - 4.5 mg/dL 01/17/2025 3:08 AM EST [facility] Blood Venous blood specimen / Unknown Venipuncture / Unknown 01/17/2025 2:31 AM EST 01/17/2025 2:39 AM EST us Cleve Deleon MD LAB BLOOD ORDERABLES Final Re sult Performing Organization Address [facility] [place] [address] * (ABNORMAL) POCT glucose meter (01/17/2025 12:39 AM EST) Pathologist [facility] POCT Glucose 198(H) 74 - 99 mg/dL 01/17/2025 12:41 AM EST [facility] Comment:Accuracy of a glucos e result [...] for testing. Comment 01/17/2025 12:41 AM EST [facility] Senior Financial Consultant ID Cydney Valiente 12:41 AM EST [facility] Device ID [id number] 01/17/2025 12:41 AM EST [facility] Specimen Type POC Capillary 01/17/2025 12:41 AM EST [facility] Blood Capillary blood specimen / Unknown 01/17/2025 12:39 AM EST 01/17/2025 12:41 AM EST Cleve Deleon MD LAB POINT OF CARE TE ST DOCKED DEVICE UNSOLICITED RESULTS Final Result [facility] [address] [id number] * CT Lumbar Spine w IV Contrast [...] on 01/16/2025 8:04 PM us Naina Dubois BIOMEDICAL EQUIPMENT SPECIALIST IMG US PROCEDURES Final Result * (ABNORMAL) POCT glucose meter (01/16/2025 6:35 PM EST) POCT Glucose 173(H) 74 - 99 mg/dL 01/16/2025 6:36 PM EST [facility] Comment:Accuracy of a glucos e [...] for testing. Comment 01/16/2025 6:36 PM EST [facility] Senior Financial Consultant ID Hugo WardNarinderMarissa 01/16/2025 6:36 PM EST [facility] Device ID [id number] 01/16/2025 6:36 PM EST [facility] Specimen Type POC Capillary 01/16/2025 6:36 PM EST [facility] Blood Capillary blood specimen / Unknown 01/16/2025 6:35 PM EST 01/16/2025 6:36 PM EST Cleve Deleon MD LAB POINT OF CARE TE ST DOCKED DEVICE UNSOLICITED RESULTS Final Result Performing Organization Address [facility] Co de Phone Number [facility] [address] [place] [address] * (ABNORMAL) POCT glucose meter (01/16/2025 5:22 [...] Comment 01/16/2025 5:23 PM EST [facility] Senior Financial Consultant ID Felisa Hernandez 5:23 PM EST [facility] Device ID [id number] 01/16/2025 5:23 PM EST [facility] Specimen Type POC Capillary 01/16/2025 5:23 PM EST [facility] Blood Capillary blood specimen / Unknown 01/16/2025 5:22 PM EST 01/16/2025 5:23 PM EST Cleve Deleon MD LAB POINT OF CARE TE ST DOCKED DEVICE UNSOLICITED RESULTS Final Result Performing Organization Address City/[facility] Co de Phone Number [facility] [address] [place] [address] * [place] Less than 1 Hour Intraoperative [...] Culture Heavy Growth 01/19/2025 5:17 PM EST [facility] Culture 4+ Biotype 1 Methicillin-Resis tant Staphylococcus aureus(AA) 01/19/2025 5:17 PM EST [facility] Comment: For susceptibility results refer to: - [id number] Edited result: Previously reported as Staphylococcus aureus on 01/17/2025 at 1327 EST. Staphylococcus aureus has been updated to reportable. Culture 2+ Biotype 2 Methicillin-Resis tant Staphylococcus aureus(AA) 01/19/2025 5:17 PM EST [facility] Comment: For susceptibility results refer to: - [id number] Edited result: Previously reported as Staphylococcus aureus on 01/17/2025 at 1327 EST. Staphylococcus aureus has been updated to reportable. Foreign Body Lower back structure / Unknown 01/16/2025 4:14 PM EST 01/16/2025 5:10 PM EST Comment:Pre-op diagnosis: MRSA bacteremia [R78.81, B95.62] Fransisco Gaston MD LAB MICROBIOLOGY - G ENERAL ORDERABLES Final Result Performing Organization Address [facility] Co de Phone Number [facility] [address] [place] [address] * Anaerobic Culture (01/16/2025 4:14 PM EST) Culture No anaerobes isolated 01/20/2025 2:57 PM EST [facility] Foreign Body Lower back structure / Unknown 01/16/2025 4:14 PM EST 01/16/2025 5:10 PM EST Comment:Pre-op diagnosis: MRSA bacteremia [R78.81, B95.62] Fransisco Gaston MD LAB MICROBIOLOGY - G ENERAL ORDERABLES Final Result [facility] [address] [place] [address] * Fungal Culture, Routine (01/16/2025 4:05 PM EST) Culture No Fungal Growth at 1 Week 01/24/2025 6:48 AM EST [facility] Abscess Topography unknown / Unknown 01/16/2025 4:05 PM EST 01/16/2025 5:10 PM EST us Cleve Deleon MD LAB MICROBIOLOGY - GENERAL OR DERABLES Final Result [facility] [address] [place] [address] * (ABNORMAL) Abscess Culture and Gram Stain (01/16/2025 4:05 PM EST) Culture Light Growth 01/19/2025 5:17 PM EST [facility] Culture 1+ Biotype 1 Methicillin-Resista nt Staphylococcus aureus(AA) 01/19/2025 5:17 PM EST [facility] Comment: The organism value for this result has been updated. These results have been appended to the previously preliminary verified report. Edited result: Previously reported as Staphylococcus aureus on 01/18/2025 at 1547 EST. Staphylococcus aureus has been updated to reportable. Culture 1+ Biotype 2 Methicillin-Resista nt Staphylococcus aureus(AA) 01/19/2025 5:17 PM EST [facility] Comment: The organism value for this result has been updated. These results have been appended to the previously preliminary verified report. Edited result: Previously reported as Staphylococcus aureus on 01/18/2025 at 1547 EST. Staphylococcus aureus has been updated to reportable. Gram Stain Result Rare Gram positive cocci in pairs and chains(A) 01/19/2025 5:17 PM EST [facility] Gram Stain Result Numerous Polymorphonuclear leukocytes(A) 01/19/2025 5:17 PM EST [facility] Abscess Lower back structure / Unknown [...] MICROBIOLOGY - G ENERAL ORDERABLES Final Result [facility] [address] [place] [address] * Anaerobic Culture (01/16/2025 4:05 PM EST) Culture No anaerobes isolated 01/20/2025 2:57 PM EST [facility] Abscess Lower back structure / Unknown 01/16/2025 4:05 PM EST 01/16/2025 5:10 PM EST Comment:Pre-op diagnosis: MRSA bacteremia [R78.81, B95.62] us Fransisco Gaston MD LAB MICROBIOLOGY - G ENERAL ORDERABLES Final Result Performing Organization Address City/[facility]/ZIP Co de Phone Number [facility] [address] [place] [address] * (ABNORMAL) POCT glucose meter (01/16/2025 3:19 [...] for testing. Comment 01/16/2025 3:20 PM EST [facility] Senior Financial Consultant ID Kingsley Alarcon 01/16/2025 3:20 PM EST [facility] Device ID [id number] 01/16/2025 3:20 PM EST [facility] Specimen Type POC Capillary 01/16/2025 3:20 PM EST [facility] Blood Capillary blood specimen / Unknown 01/16/2025 3:19 PM EST 01/16/2025 3:20 PM EST us Cleve Deleon MD LAB POINT OF CARE TE ST DOCKED DEVICE UNSOLICITED RESULTS Final Result Performing Organization Address City/[facility]/ZIP Co de Phone Number [facility] [address] [place] [address] * (ABNORMAL) POCT glucose meter (01/16/2025 11:52 [...] Comment 01/16/2025 11:53 AM EST [facility] Senior Financial Consultant ID Amandeep Ward 01/16/2025 11:53 AM EST [facility] Device ID [id number] 01/16/2025 11:53 AM EST [facility] Specimen Type POC Capillary 01/16/2025 11:53 AM EST [facility] Blood Capillary blood specimen / Unknown 01/16/2025 11:52 AM EST 01/16/2025 11:53 AM EST us Cleve Deleon MD LAB POINT OF CARE TE ST DOCKED DEVICE UNSOLICITED RESULTS Final Result Performing Organization Address City/[facility]/ZIP Co de Phone Number [facility] [address] [place] [address] * (ABNORMAL) POCT glucose meter (01/16/2025 6:34 AM EST) [facility] POCT Glucose 142(H) 74 - 99 [...] Comment 01/16/2025 6:35 AM EST [facility] Senior Financial Consultant ID Alice Garber 01/16/2025 6:35 AM EST [facility] Device ID [id number] 01/16/2025 6:35 AM EST [facility] Specimen Type POC Capillary 01/16/2025 6:35 AM EST [facility] Blood Capillary blood specimen / Unknown 01/16/2025 6:34 AM EST 01/16/2025 6:35 AM EST us Demar Jiménez MD LAB POINT OF CARE TE ST DOCKED DEVICE UNSOLICITED RESULTS Final Result [facility] [address] [place] [address] * (ABNORMAL) Urinalysis with reflex microscopic (Culture NOT Included) (01/16/2025 4:51 AM EST) Color, Urine Yellow LAB URINALYSIS - AUTOMATED METHOD 01/16/2025 5:13 AM EST [facility] Clarity, Urine Clear LAB URINALYSIS - AUTOMATED METHOD 01/16/2025 5:13 AM [facility] Spec [place], Urine 1.012 1.005 - 1.030 LAB URINALYSIS - AUTOMATED METHOD 01/16/2025 5:13 AM [facility] pH, Urine 6.0 5.0 - 8.0 LAB URINALYSIS - AUTOMATED METHOD 01/16/2025 5:13 AM [facility] Protein, Urine Negative Negative mg/dL LAB URINALYSIS - AUTOMATED METHOD 01/16/2025 5:13 AM EST [facility] Glucose, Urine >=1000(A) Negative mg/dL LAB URINALYSIS - AUTOMATED METHOD 01/16/2025 5:13 AM [facility] Ketones, Urine Negative Negative mg/dL LAB URINALYSIS - AUTOMATED METHOD 01/16/2025 5:13 AM [facility] Blood, Urine Negative Negative LAB URINALYSIS - AUTOMATED METHOD 01/16/2025 5:13 AM [facility] Bilirubin, Urine Negative Negative LAB URINALYSIS - AUTOMATED METHOD 01/16/2025 5:13 AM [facility] Urobilinogen, Urine 0.2 0.2 to 1.0 mg/dL LAB URINALYSIS - AUTOMATED METHOD 01/16/2025 5:13 AM [facility] Leukocytes, Urine Negative Negative LAB URINALYSIS - AUTOMATED METHOD 01/16/2025 5:13 AM [facility] Nitrite, Urine Negative Negative LAB URINALYSIS - AUTOMATED METHOD 01/16/2025 5:13 AM [facility] Urine Urine specimen obtained by clean catch procedure / Unknown Non-blood Collection / Unknown 01/16/2025 4:51 AM EST 01/16/2025 5:02 AM EST Fransisco Gaston MD LAB URINE ORDERABLES Final Result Performing Organization Address [facility] Co de Phone Number [facility] [address] [place] [address] * (ABNORMAL) POCT glucose meter (01/16/2025 1:34 AM EST) POCT Glucose 144(H) 74 - 99 mg/dL 01/16/2025 1:37 AM EST [facility] Comment:Accuracy of a glucos e result [...] for testing. Comment 01/16/2025 1:37 AM EST [facility] Senior Financial Consultant ID GnauAlice 01/16/2025 1:37 AM EST [facility] Device ID [id number] 01/16/2025 1:37 AM EST [facility] Specimen Type POC Capillary 01/16/2025 1:37 AM EST [facility] Blood Capillary blood specimen / Unknown 01/16/2025 1:34 AM EST 01/16/2025 1:37 AM EST us Demar Jiménez MD LAB POINT OF CARE TE ST DOCKED DEVICE UNSOLICITED RESULTS Final Result Performing Organization Address [facility] Phone Number [facility] [address] [place] [address] * Blood Culture (Aerobic/Anaerobet Set) (01/16/2025 1:28 AM EST) Culture No growth at day 5 SADA 01/21/2025 4:02 AM EST [facility] Blood Structure of right hand / Unknown Venipuncture / Unknown 01/16/2025 1:28 AM EST 01/16/2025 3:52 AM EST us Fransisco Gaston MD LAB MICROBIOLOGY - G ENERAL ORDERABLES Final Result Performing Organization Address City/[facility]/ZIP Co de Phone Number [facility] [address] [place] [address] * (ABNORMAL) Hemoglobin A1c (01/16/2025 12:36 AM EST) Hemoglobin A1c 7.8(H) <5.7 % 01/16/2025 10:21 AM EST [facility] Blood Venous blood specimen / Unknown Venipuncture / Unknown 01/16/2025 12:36 AM EST 01/16/2025 12:41 AM EST Narrative [facility] - 01/16/2025 10:21 AM EST [facility]1C Interpretive Data: Diagnosis of Diabetes: Diabetic > or = 6.5% Pre-diabetic 5.7 to 6.4% Non-diabetic < or = 5.6% Glycemic Targets for Type I and Type II Diabetics: Non- Adults <7.0% Adults <6.0% Children and Adolescents <7.5% Source: [place] [employer]. Standards of medical care in diabetes,2017. Diabetes Care.2017:40 (suppl 1):S1-S135. Naina Dubois APRN LAB BLOOD ORDERABLES Fi nal Result [facility] [address] [place] [address] * Phosphorus (01/16/2025 12:36 AM EST) Phosphorus, Plasma 2.7 2.5 - 4.5 mg/dL 01/16/2025 2:12 AM EST [facility] Blood Venous blood specimen / Unknown Venipuncture / Unknown 01/16/2025 12:36 AM EST 01/16/2025 12:41 AM EST Naina Dubois BIOMEDICAL EQUIPMENT SPECIALIST LAB BLOOD ORDERABLES Fi nal Result [facility] [address] [place] [address] * (ABNORMAL) Magnesium (01/16/2025 12:36 AM EST) Magnesium, Plasma 1.7(L) 1.9 - 2.4 mg/dL 01/16/2025 2:12 AM EST [facility] Blood Venous blood specimen / Unknown Venipuncture / Unknown 01/16/2025 12:36 AM EST 01/16/2025 12:41 AM EST Naina Dubois BIOMEDICAL EQUIPMENT SPECIALIST LAB BLOOD ORDERABLES Fi nal Result Performing Organization Address [facility] Co de Phone Number [facility] [address] [place] [address] * (ABNORMAL) Procalcitonin (01/16/2025 12:36 AM EST) Procalcitonin, Plasma 0.09(H) <0.09 ng/mL 01/16/2025 2:12 AM EST [facility] Blood Venous blood specimen / Unknown Venipuncture / Unknown 01/16/2025 12:36 AM EST 01/16/2025 12:41 AM EST Narrative [facility] - 01/16/2025 2:12 AM EST Procalcitonin [...] predict 28 day mortality risk. Please consult [email or web address] for more information. Test performed at [facility]. Naina Dubois BIOMEDICAL EQUIPMENT SPECIALIST LAB BLOOD ORDERABLES Fi nal Result Performing Organization Address City/[facility]/ZIP Co de Phone Number [facility] [address] [place] [address] * (ABNORMAL) C-reactive protein (01/16/2025 12:36 AM EST) CRP, Plasma 108.5(H) <=8.0 mg/L 01/16/2025 1:14 AM EST [facility] Blood Venous blood specimen / Unknown Venipuncture / Unknown 01/16/2025 12:36 AM EST 01/16/2025 12:41 AM EST Narrative [facility] - 01/16/2025 1:14 AM EST This CRP test is appropriate for assessment of infection, systemic inflammation and/or tissue injury. To assess cardiovascular disease risk order high sensitivity CRP (CRPH). us Fransisco Gaston MD LAB BLOOD ORDERABLES Final Result [facility] [address] [place] [address] * (ABNORMAL) Sedimentation Rate, Automated (01/16/2025 12:36 AM EST) Sedimentation Rate 96(H) <30 mm/hr 2024 12:58 AM EST [facility] Blood Venous blood specimen / Unknown Venipuncture / Unknown 01/16/2025 12:36 AM EST 01/16/2025 12:41 AM EST Fransisco Gaston MD LAB BLOOD ORDERABLES Final Result [facility] [address] [place] [address] * (ABNORMAL) CBC and Differential (01/16/2025 12:36 AM EST) WBC Count 9.75 3.70 - 10.30 10*3/uL LAB HEMATOLOGY METHOD 01/16/2025 12:50 AM EST [facility] RBC Count 2.94(L) 3.90 - 5.20 10*6/uL LAB HEMATOLOGY METHOD 01/16/2025 12:50 AM EST [facility] HGB 9.4(L) 11.2 - 15.7 g/dL LAB HEMATOLOGY METHOD 01/16/2025 12:50 AM EST [facility] HCT 28.1(L) 34.0 - 45.0 % LAB HEMATOLOGY METHOD 01/16/2025 12:50 AM [facility] Platelet Count 338 155 - 369 10*3/uL LAB HEMATOLOGY METHOD 01/16/2025 12:50 AM [facility] MCV 96 79 - 98 fL LAB HEMATOLOGY METHOD 01/16/2025 12:50 AM [facility] MCH 32.0 26.0 - 32.0 pg LAB HEMATOLOGY METHOD 01/16/2025 12:50 AM [facility] MCHC 33.5 30.7 - 35.5 g/dL LAB HEMATOLOGY METHOD 01/16/2025 12:50 AM EST [facility] RDW 14.2 11.5 - 14.5 % LAB HEMATOLOGY METHOD 01/16/2025 12:50 AM [facility] MPV 9.2 8.8 - 12.5 fL LAB HEMATOLOGY METHOD 01/16/2025 12:50 AM [facility] nRBC 0.0 <=0.0 per 100 WBCs LAB HEMATOLOGY METHOD 01/16/2025 12:50 AM [facility] Differential Type Automated LAB HEMATOLOGY METHOD 01/16/2025 12:50 AM [facility] Neutrophils % 75 % LAB HEMATOLOGY METHOD 01/16/2025 12:50 AM [facility] Lymphocytes % 11 % LAB HEMATOLOGY METHOD 01/16/2025 12:50 AM [facility] Monocytes % 10 % LAB HEMATOLOGY METHOD 01/16/2025 12:50 AM [facility] Eosinophils % 2 % LAB HEMATOLOGY METHOD 01/16/2025 12:50 AM [facility] Basophils % 0 % LAB HEMATOLOGY METHOD 01/16/2025 12:50 AM [facility] Immature Granulocytes % 2 % LAB HEMATOLOGY METHOD 01/16/2025 12:50 AM [facility] Neutrophils Absolute 7.38(H) 1.60 - 6.10 10*3/uL LAB HEMATOLOGY METHOD 01/16/2025 12:50 AM [facility] Lymphocytes Absolute 1.03(L) 1.20 - 3.90 10*3/uL LAB HEMATOLOGY METHOD 01/16/2025 12:50 AM [facility] Monocytes Absolute 0.94(H) 0.30 - 0.90 10*3/uL LAB HEMATOLOGY METHOD 01/16/2025 12:50 AM EST [facility] Eosinophils Absolute 0.22 0.00 - 0.50 10*3/uL LAB HEMATOLOGY METHOD 01/16/2025 12:50 AM EST [facility] Basophils Absolute 0.03 0.00 - 0.10 10*3/uL LAB HEMATOLOGY METHOD 01/16/2025 12:50 AM EST [facility] Immature Granulocytes Absolute 0.15(H) 0.00 - 0.06 10*3/uL LAB HEMATOLOGY METHOD 01/16/2025 12:50 AM EST [facility] Blood Venous blood specimen / Unknown Venipuncture / Unknown 01/16/2025 12:36 AM EST 01/16/2025 12:41 AM EST Narrative [facility] - 01/16/2025 12:50 AM EST Therapeutic decision making should be based on absolute values, rather than percentages. Fransisco Gaston MD LAB BLOOD ORDERABLES Final Result [facility] [address] [place] [address] * (ABNORMAL) Comprehensive Metabolic Panel, Plasma (01/16/2025 12:36 AM EST) Glucose, Plasma 141(H) 74 - 99 mg/dL 01/16/2025 1:14 AM EST [facility] BUN, Plasma 17 8 - 23 mg/dL 01/16/2025 1:14 AM EST [facility] Creatinine, Plasma 0.97 0.60 - 1.10 mg/dL 01/16/2025 1:14 AM EST [facility] BUN/Creatinine Ratio 18 01/16/2025 1:14 AM EST [facility] Sodium, Plasma 137 136 - 145 mmol/L 01/16/2025 1:14 AM EST [facility] Potassium, Plasma 4.1 3.6 - 4.9 mmol/L 01/16/2025 1:14 AM EST [facility] Chloride, Plasma 103 97 - 107 mmol/L 01/16/2025 1:14 AM EST [facility] CO2, Plasma 22 22 - 29 mmol/L 01/16/2025 1:14 AM EST [facility] Anion Gap 12 6 - 16 mmol/L 01/16/2025 1:14 AM EST [facility] Total Calcium, Plasma 9.0 8.9 - 10.2 mg/dL 01/16/2025 1:14 AM EST [facility] Total Protein 6.1(L) 6.3 - 7.9 g/dL 01/16/2025 1:14 AM EST [facility] Albumin, Plasma 2.9(L) 3.5 - 5.2 g/dL 01/16/2025 1:14 AM EST [facility] AST, Plasma 77(H) 10 - 35 U/L 01/16/2025 1:14 AM EST [facility] ALT, Plasma 54(H) 10 - 35 U/L 01/16/2025 1:14 AM EST [facility] Alkaline Phosphatase, Plasma 271(H) 46 - 142 U/L 01/16/2025 1:14 AM EST [facility] Total Bilirubin, Plasma 0.4 0.2 - 1.1 mg/dL 01/16/2025 1:14 AM EST [facility] eGFRcr 61.4 mL/min/1.7 3m*2 01/16/2025 1:14 AM EST [facility] Comment:Reported eGFRcr in m L/min/1.73m2 is based the CKD-EPI 2020 equation that does not use a race coefficient. Blood Venous blood specimen / Unknown Venipuncture / Unknown 01/16/2025 12:36 AM EST 01/16/2025 12:41 AM EST us Fransisco Gaston MD LAB BLOOD ORDERABLES Final Result [facility] [address] [place] [address] * (ABNORMAL) APTT (01/16/2025 12:36 AM EST) aPTT 36(H) 25 - 35 sec LAB COAGULATION METHOD 01/16/2025 1:15 AM EST [facility] Blood Venous blood specimen / Unknown Venipuncture / Unknown 01/16/2025 12:36 AM EST 01/16/2025 12:41 AM EST us Fransisco Gaston MD LAB BLOOD ORDERABLES Final Result Performing Organization Address [facility] Co de Phone Number [facility] [address] [place] [address] * (ABNORMAL) Prothrombin Time/INR (01/16/2025 12:36 AM EST) Prothrombin Time 15.3(H) 12.0 - 14.3 sec LAB COAGULATION METHOD 01/16/2025 1:15 AM EST [facility] INR 1.2(H) 0.9 - 1.1 LAB COAGULATION METHOD 01/16/2025 1:15 AM EST [facility] Blood Venous blood specimen / Unknown Venipuncture / Unknown 01/16/2025 12:36 AM EST 01/16/2025 12:41 AM EST Narrative [facility] - 01/16/2025 1:15 AM EST OPTIMAL INR RANGES FOR PATIENT ON ORAL ANTICOAGULANT THERAPY Prevention of venous thromboembolism INR 2.0 to 3.0 In patients with heart disease: Atrial fibrillation INR 2.0 to 3.0 Valvular heart disease INR 2.0 to 3.0 Tissue heart valves INR 2.0 to 3.0 Mechanical prosthetic valves INR 2.5 to 3.5 Prevention of recurrent CO INR 2.5 to 3.5 us Fransisco Gaston MD LAB BLOOD ORDERABLES Final Result Performing Organization Address City/[facility] Co de Phone Number [facility] [address] [place] [address] * Type and Screen (01/16/2025 12:36 AM [...] TEST ORDERABLES Final Result BLOOD BANK [address] [place] [address], documented in this encounter Visit Diagnoses Diagnosis [...] 8:53 AM EST 30 mg nystatin (Mycostatin) [id number] UNIT/GM powder 1 Application Topical, 2 times [...] Discontinued, Routine 2116 (Given - Provider: Christina Fritz RN) 2142 (Given - Provider: Christina Fritz RN) carvedilol (Coreg) tablet 25 mg 25 mg, Oral, 2 times daily, First dose on Wed01/16/25 at 0915, Until Discontinued, Routine 08 (Given - Provider: David Wheeler RN)2116 (Given [...] Fritz RN) 0836 (Given - Provider: Ariadne Adame RN) NIFEdipine XL (Procardia XL) 24 hr tablet 30 mg 30 mg, Oral, Daily, First dose on Wed01/16/25 at 1030, Until Discontinued, Routine 0853 (Given - Provider: David Wheeler RN) 0842 (Given - Provider: Felisa Whitlock, RAI) 0821 (Given - Provider: Ariadne Adame RN) nystatin (Mycostatin) [id number] UNIT/GM powder 1 Application Topical, 2 times daily, First dose on Wed01/16/25 at 0900, Until Discontinued, Routine 0853 (Given - Provider: David Wheeler RN)2116 (Given - Provider: Christina Fritz RN) 08 (Given - Provider: Felisa Whitlock RN)214 (Given - Provider: Christina Fritz RN) 0825 (Given - Provider: Ariadne Adame RN) pantoprazole (Protonix) EC tablet 40 mg 40 [...] Until Discontinued, Routine 1232 (Given - Provider: Daivd Wheeler RN)2116 (Given - Provider: Christina Fritz [...] at 0106, Until Wed01/23/25 at 151, Routine, low blood sugar, per Hypoglycemia Prevention [...] Wed01/16/25 at 0106, Until Wed01/23/25 at 151, Administer over 15 Minutes, Routine, PRN low [...] documented as of this encounter Care Teams Script Artist Relationship Specialty [place] [id number] PCP - General 06/21/20 documented as of this encounter
--- OUTSIDE RECORDS SUMMARY | 2025-01-16 15:00 | XMS_ITS | Encounter Summary ---
Author Organization Healthcare Address [address] [place] [address] Care Team Providers Care Steamfitter Supervisor Name Role Phone Chase Gunn MD Primary Care Provider [phone] Reason for Visit * Auth/Cert (Routine) Specialty Diagnoses / Procedures Referred By Contac t Referred To Contact Diagnoses Sepsis (CMS/HCC) infected spinal cord stimulator, MRSA Demar Jiménez MD [address] [place] [address] Phone: tel: fax: [facility] A Inpatient [address] [place] [address] Referral ID Status Reason Start Date Expiration Date Visits Re quested Visits Authorized [id number] 1 1 Encounter Details Date Type Department Care Team (Late st Contact Info) Description 01/16/2025 3:00 PM EST - 01/16/2025 5:10 PM EST Surgery [facility] OPERATING ROOM [address] [place] [id number] Fransisco Farley MD [address] [facility] [address] [place] [id number] EXPLORATION, WOUND, POSSIBLE SCS REMOVAL/REVISION, ALL OTHER [...] time in the past 12 m [facility], were you homeless or living in a prison (including now)? No 01/16/2025 [facility] Utilities Answer Date Recorded In the [...] reviewed with pt. 01/22/2025 8:51 PM Christina eHad RN * Medication Review/Management Answer Date of [...] Amanda Ford RN Discharge Coordination/Progress Going to [facility] 01/23/2025 10:09 AM Amanda Ford RN Equipment Currently Used at Home walker, rollator;shower chair 01/23/2025 10:09 AM Amanda Ford RN Current Outpatient/Agency/Support Group clinic(s);DME 01/23/2025 10:09 AM Amanda Ford RN Anticipated Changes Related to Illness none 01/23/2025 10:09 AM Amanda Ford RN Concerns Comments Patient is going to [facility] where they can assist with care coordination. 01/23/2025 10:09 AM Amanda Ford RN Transportation Anticipated other (see comments) 01/23/2025 10:09 AM Amanda Ford RN Outpatient/Agency/Support Group Needs chcf facility;OT, PT, QUALITY SYSTEM MANAGER 01/23/2025 10:09 AM Amanda Ford RN Transportation [...] RN Patient/Family Anticipated Services at Transition rehabilitation services;[facility] 01/23/2025 10:09 AM Amanda Ford RN Patient's Choice of Community Agency(s) [facility] 01/23/2025 10:09 AM Amanda [...] RN What day is the transport expected? [id number] 01/23/2025 10:09 AM Amanda Ford RN What time is the transport expected? [id number] 01/23/2025 10:09 AM Amanda Ford RN Who [...] Care Question Answer Date of Assessment Author Twister Hand N/A 01/18/2025 11:05 AM Dianelys Guan Family/Caregiver [...] Answer Date of Assessment Author Level of Crook Dependent 01/18/2025 11:00 AM Aspen Bensonberly Physical/Nonphysical Assist Verbal Cues;Nonverbal cues (demo/gestures);Maxim al cues;Additional assist utilized for safety 01/18/2025 11:00 AM Dianelys Benson * Bed Mobility Exam: Supine to Sit Question Answer Date of Assessment Author Level of Crook Moderate assist (5 0% patient's effort) 01/18/2025 11:00 AM Dianelys Benson Physical/Nonphysical Assist HOB elevated;Moderate cues;Verbal Cues 01/18/2025 11:00 AM Aspen Bensonberly Assistive Device Bed rails 01/18/2025 11:0 0 AM Dianelys Benson * Transfer Exam: Sit to stand Question Answer Date of Assessment Author Level of Crook Moderate assist (5 0% patient's effort) 01/18/2025 11:00 AM Dianelys Benson Physical/Nonphysical Assist Verbal Cues;Maximal cues;Additional assist utilized for safety 01/18/2025 11:00 AM Dianelys Benson Assistive Device Walker, rolling 01/18/2025 11:0 0 AM Dianelys Benson * Transfer Exam: Stand to Sit Question Answer Date of Assessment Author Level of Crook Moderate assist (5 0% patient's effort) 01/18/2025 11:00 AM Dianelys Benson Physical/Nonphysical Assist Verbal Cues;Maximal cues;Additional assist utilized for safety 01/18/2025 11:00 AM Aspen Bensonberly Assistive Device Walker, rolling 01/18/2025 11:0 0 AM Dianelys Benson * Transfer Exam: Bed to Chair/Chair to Bed Question Answer Date of Assessment Author Type of Transfer Sidesteps 01/18/2025 11:0 0 AM Dianelys Benson Level of Crook Moderate assist (5 0% patient's effort) 01/18/2025 [...] of Assessment Author Next PT Re-Assessment Date [id number] 01/18/2025 10: 24 AM Micheal Roque Date of PT Session [id number] 01/18/2025 10:24 AM Micheal Hilliard Patient/Family Goals [...] (mm) 3 01/23/2025 8:0 0 AM Ariadne Hroner RN LUE Motor Response Responds to commands [...] 01/23/2025 8:00 AM Ariadne Horner RN * K 9 Handler/ Deputy Question Answer Date of Assessment Author Telemetry Strip Reviewed Yes, I have reviewed and acknowledged. 01/22/2025 7:48 AM Felisa Sidhu RN Proof Reader On No 01/23/2025 8:00 AM Ariadne Woods RN Telemetry Audible Yes 01/23/2025 4:20 AM Christina Lovell RN Telemetry Alarms Set Yes 01/23/2025 4:20 AM E Christina Ferris RN Telemetry Box Number pacu #[id number] 01/16/2025 5:17 PM E Felisa Avila RN Bedside K 9 Handler/ Deputy On No 01/23/2025 8:00 AM Ariadne Horner RN Bedside Cardiac Audible Yes 01/23/2025 4:20 AM Christina Lovell RN Bedside Cardiac Alarms Set Yes 01/23/2025 4:20 AM Christina Lovell RN * Gastrointestinal Question Answer Date of Assessment Author Most Recent BM Date [id number] 01/22/2025 8:18 PM Christina Yeh RN Gastrointestinal [...] Psychosocial (WDL) WDL 01/23/2025 8:00 AM Ariadne oHrner RN * Intake Question Answer Date of [...] Assessment Author Last Date of Wound Treatment [id number] 01/16/2025 12:30 PM Amanda Damon R N Wound Follow-Up Needed? 2 Week 01/16/2025 12:30 PM Amanda Damon RN Wound Comment Groin ICDY - CCAF 01/16/2025 12:30 PM Amanda Melendez RN Wound Previous Provider LK 01/16/2025 12:30 PM Amanda Damon RN Next Date For Wound Care Follow-up [id number] 01/16/2025 12:30 PM EST Amanda Mcclure R N * Cardiac Question Answer Date of Assessment Author Cardiac ([facility]) [facility] 01/17/2025 4:00 PM EST Ofelia Peter RN * Respiratory Question Answer Date of Assessment Author Respiratory ([facility]) [facility] 01/23/2025 8:00 AM EST Ariadne Adame RN * RLE ROM Assessment Question Answer Date of Assessment Author RLE Assessment [facility] 01/18/2025 11:05 AM EST Dianelys Mancilla * LLE ROM Assessment Question Answer Date of Assessment Author LLE Assessment [facility] 01/18/2025 11:05 AM EST Dianelys Mancilla * [...] 10:00 PM Cydney Garcia RN Food allergy, Taoism, or Cultural nutrition needs No 01/15/2025 10:00 [...] Question Answer Date of Assessment Author Genitourinary ([facility]) X 01/23/2025 8:00 AM Ariadne Palmer, RN Genitourinary Symptoms Sanz catheter 01/23/2025 8:00 AM Ariadne Horner, RN * Neurological Question Answer Date of Assessment Author Neuro ([facility]) WD 01/17/2025 4:00 PM Ofelia Gomes RN * Prior Function Question Answer Date of Assessment Author Level of Mobility Ambulatory- community 01/19/20 10:24 AM Micheal Roque Mobility Crook Independent gait without device 01/18/2025 10:24 AM [...] Micheal Roque Toileting Independent 01/18/2025 10:24 AM Michela Roque Eating Independent 01/18/2025 10:24 AM Micheal Roque Home Management Skills Needs assist 10:24 AM Micheal Roque * RUE ROM Assessment Question Answer Date of Assessment Author RUE Assessment [facility] 01/18/2025 11:05 AM Dianelys Farmer * LUE ROM Assessment Question Answer Date of Assessment Author LUE Assessment [facility] 01/18/2025 11:05 AM Dianelys Farmer * Safe [...] 2 01/15/2025 10:00 PM Cydney Garcia RN QUALITY SYSTEM MANAGER Evaluation Needed 2 01/15/2025 10:00 PM Cydney [...] Question Answer Date of Assessment Author HEENT ([facility]) X 01/16/2025 5:17 PM Felisa Forrest RN * Cardiac Question Answer Date of Assessment Author Cardiac ([facility]) [facility] 01/16/2025 5:17 PM Felisa Forrest RN * Gastrointestinal Question Answer Date of Assessment Author Gastrointestinal ([facility]) [facility] 01/16/2025 5:17 PM Felisa Forrest RN * Genitourinary Question Answer Date of Assessment Author Genitourinary ([facility]) X 01/16/2025 5:17 PM ES Felisa Oconnor, RAI * Psychosocial Question Answer Date of Assessment Author Psychosocial ([facility]) [facility] 01/16/2025 5:17 PM Felisa Forrest RN * [...] AM Dianelys Benson Dynamic Standing-Balance Lateral weight shifts;Anterior/Quantitative Analyst Marketing ior weight shifts 01/18/2025 11:05 AM Dianelys Benson * General Question Answer Date of Assessment Author Next OT Reassessment 79425 01/18/2025 11:05 AM Dianelys Benson Patient/Family Goals Statement Pt desires to return home when able to. 01/18/2025 11:05 AM Dianelys Benson Date of OT Session [id number] 01/18/2025 11 :05 AM Dianelys Benson * [...] 01/23/2025 8:00 AM Ariadne Horner RN * Franklin Coma Scale Question Answer Date of Assessment [...] Fritz RN * Temp (in Celsius) for [place] IV Answer Date of Assessment Author 36.7 [...] Scan Volume (mL) 764 01/20/2025 1:08 AM Evertno Corea RN Post Void Cath Residual (mL) [...] Dianelys Dressing 5 01/18/2025 11:05 AM EST Swteha more, Dianelys Bowels 5 01/18/2025 11:05 AM [...] Date of Assessment Author Manual Muscle Testing [facility] 01/18/2025 11:05 AM Dianelys Benson * Manual [...] 01/23/2025 10:09 AM Amanda Ford RN * [facility] 6-Clicks Mobility Assessment Question Answer Date [...] railing? 2 01/18/2025 10:24 AM Katelyn Roque [facility] 6-Clicks Mobility Asse ssment Total 12 [...] Author food preferences provided 01/22/2025 8:51 PM Chritsina Lovell RN * Infection Prevention Answer Date [...] Amanda Ford RN Discharge Coordination/Progress Going to [facility] 01/23/2025 10:09 AM Amanda Ford RN Equipment Currently Used at Home walker, rollator;shower chair 01/23/2025 10:09 AM Amanda Ford RN Current Outpatient/Agency/Support Group clinic(s);DME 01/23/2025 10:09 AM Amanda Ford RN Anticipated Changes Related to Illness none 01/23/2025 10:09 AM Amanda Ford RN Concerns Comments Patient is going to [facility] where they can assist with care coordination. 01/23/2025 10:09 AM Amanda Ford RN Transportation Anticipated other (see comments) 01/23/2025 10:09 AM Amanda Ford RN Outpatient/Agency/Support Group Needs chcf facility;OT, PT, QUALITY SYSTEM MANAGER 01/23/2025 10:09 AM Amanda Ford RN Transportation [...] RN Patient/Family Anticipated Services at Transition rehabilitation services;[facility] 01/23/2025 10:09 AM Amanda Ford RN Patient's Choice of Community Agency(s) [facility] 01/23/2025 10:09 AM Amanda [...] RN What day is the transport expected? [id number] 01/23/2025 10:09 AM Amanda Ford RN What time is the transport expected? [id number] 01/23/2025 10:09 AM Amanda Ford RN Who [...] Care Question Answer Date of Assessment Author Twister Hand N/A 01/18/2025 11:05 AM Dianelys Guan Family/Caregiver [...] Answer Date of Assessment Author Level of Crook Dependent 01/18/2025 11:00 AM Dianelys Benson Physical/Nonphysical Assist Verbal Cues;Nonverbal cues (demo/gestures);Maxim al cues;Additional assist utilized for safety 01/18/2025 11:00 AM Dianelys Benson * Bed Mobility Exam: Supine to Sit Question Answer Date of Assessment Author Level of Crook Moderate assist (5 0% patient's effort) 01/18/2025 11:00 AM Dianelys Benson Physical/Nonphysical Assist HOB elevated;Moderate cues;Verbal Cues 01/18/2025 11:00 AM Dianelys Benson Assistive Device Bed rails 01/18/2025 11:0 0 AM Dianelys Benson * Transfer Exam: Sit to stand Question Answer Date of Assessment Author Level of Crook Moderate assist (5 0% patient's effort) 01/18/2025 11:00 AM Dianelys Benson Physical/Nonphysical Assist Verbal Cues;Maximal cues;Additional assist utilized for safety 01/18/2025 11:00 AM Dianelys Benson Assistive Device Walker, rolling 01/18/2025 11:0 0 AM Dianelys Benson * Transfer Exam: Stand to Sit Question Answer Date of Assessment Author Level of Crook Moderate assist (5 0% patient's effort) 01/18/2025 11:00 AM Dianelys Benson Physical/Nonphysical Assist Verbal Cues;Maximal cues;Additional assist utilized for safety 01/18/2025 11:00 AM Dianelys Benson Assistive Device Walker, rolling 01/18/2025 11:0 0 AM Dianelys Benson * Transfer Exam: Bed to Chair/Chair to Bed Question Answer Date of Assessment Author Type of Transfer Sidesteps 01/18/2025 11:0 0 AM Dianelys Benson Level of Crook Moderate assist (5 0% patient's effort) 01/18/2025 [...] of Assessment Author Next PT Re-Assessment Date [id number] 01/18/2025 10: 24 AM Micheal Roque Date of PT Session [id number] 01/18/2025 10:24 AM Micheal Hilliard Patient/Family Goals [...] Score Question Answer Date of Assessment Author [facility] Daily Mobility Goal 2 01/19/2025 8:0 0 [...] 01/23/2025 8:00 AM Ariadne Horner RN * K 9 Handler/ Deputy Question Answer Date of Assessment Author Telemetry Strip Reviewed Yes, I have reviewed and acknowledged. 01/22/2025 7:48 AM Felisa Sidhu RN Proof Reader On No 01/23/2025 8:00 AM E Ariadne Nair RN Telemetry Audible Yes 01/23/2025 4:20 AM Christina Lovell RN Telemetry Alarms Set Yes 01/23/2025 4:20 AM E Christina Ferris RN Telemetry Box Number pacu #[id number] 01/16/2025 5:17 PM E Felisa Avila RN * Gastrointestinal Question Answer Date of Assessment Author Most Recent BM Date [id number] 01/22/2025 8:18 PM Christina Yeh RN Gastrointestinal [...] Warm;Dry 01/16/2025 5:30 PM EST Felisa Hernandez RN L Pedal Pulse +2 01/23/2025 [...] Answer Date of Assessment Author Cardiac (WDL) [facility] 01/17/2025 4:00 PM EST Ofelia Peter RN * Respiratory Question Answer Date of Assessment Author Respiratory (WDL) [facility] 01/23/2025 8:00 AM EST Ariadne Adame RN * RLE ROM Assessment Question Answer Date of Assessment Author RLE Assessment [facility] 01/18/2025 11:05 AM EST Dianelys Mancilla * LLE ROM Assessment Question Answer Date of Assessment Author LLE Assessment [facility] 01/18/2025 11:05 AM EST Dianelys Mancilla * [...] 10:00 PM Cydney Garcia RN Food allergy, Taoism, or Cultural nutrition needs No 01/15/2025 10:00 [...] community 01/19/20 10:24 AM Micheal Roque Mobility Crook Independent gait without device 01/18/2025 10:24 AM [...] Answer Date of Assessment Author DANISHAPenny Assessment [facility] 01/18/2025 11:05 AM Dianelys Farmer * LUE ROM Assessment Question Answer Date of Assessment Author ZAKPenny Assessment [facility] 01/18/2025 11:05 AM Dianelys Farmer * Safe [...] turn self 01/23/2025 8:0 0 AM Ariadne oHrner RN * Hygiene Question Answer Date of [...] 2 01/15/2025 10:00 PM Cydney Garcia RN QUALITY SYSTEM MANAGER Evaluation Needed 2 01/15/2025 10:00 PM Cydney [...] AM Dianelys Benson Dynamic Standing-Balance Lateral weight shifts;Anterior/Quantitative Analyst Marketing ior weight shifts 01/18/2025 11:05 AM Dianelys Benson * General Question Answer Date of Assessment Author Next OT Reassessment [id number] 01/18/2025 11:05 AM Dianelys Benson Patient/Family Goals Statement Pt desires to return home when able to. 01/18/2025 11:05 AM Dianelys Benson Date of OT Session [id number] 01/18/2025 11 :05 AM Dianelys Benson * [...] RN Intermittent/Straight Cath (mL) 850 2:00 PM Scra Shahid RN * Stool Output/Assessment Question Answer [...] Fluctuating Course (1A) No 01/23/2025 8:00 AM Aridane Horner RN Delirium Scale Used Confusion Assessment [...] Date of Assessment Author Manual Muscle Testing [facility] 01/18/2025 11:05 AM Dianelys Benson * Manual Muscle Testing - RUE Question Answer Date of Assessment Author Manual Muscle Testing - RUE [facility] 01/18/2025 11 :05 AM Dianelys Benson * Manual Muscle Testing - LUE Question Answer Date of Assessment Author Manual Muscle Testing - LUE [facility] 01/18/2025 11 :05 AM Dianelys Benson * [...] 01/23/2025 10:09 AM Amanda Ford, RAI * [facility] 6-Clicks Mobility Assessment Question Answer Date [...] railing? 2 01/18/2025 10:24 AM Katelyn Roque [facility] 6-Clicks Mobility Asse ssment Total 12 01/18/2025 10:24 AM Katelyn Roque documented as of this encounter Mental Status * Pre-op Phone Call Discharge Planning Question Answer Entry Date Author Patient expects to be discha rged to: home 01/16/2025 2:54 PM Kingsley Voss RN * Time Calculation Question Answer Entry Date Author Start Time 70389 01/18/2025 11:05 AM Dianelys Guan Stop Time 89225 01/18/2025 11:05 AM Dianelys Guan Time Calculation [...] Entry Date Author Referral From [facility] Initiated 01/18/2025 2: 30 PM [...] Amanda Ford RN Discharge Coordination/Progress Going to [facility] 01/23/2025 10:09 AM Amanda Ford RN Equipment Currently Used at Home walker, rollator;shower chair 01/23/2025 10:09 AM Amanda Ford RN Current Outpatient/Agency/Support Group clinic(s);DME 01/23/2025 10:09 AM Amanda Ford RN Anticipated Changes Related to Illness none 01/23/2025 10:09 AM Amanda Ford RN Concerns Comments Patient is going to [facility] where they can assist with care coordination. 01/23/2025 10:09 AM Amanda Ford RN Transportation Anticipated other (see comments) 01/23/2025 10:09 AM Amanda Ford RN Outpatient/Agency/Support Group Needs chcf facility;OT, PT, QUALITY SYSTEM MANAGER 01/23/2025 10:09 AM Amanda Ford RN Transportation [...] RN Patient/Family Anticipated Services at Transition rehabilitation services;[facility] 01/23/2025 10:09 AM Amanda Ford RN Patient's Choice of Community Agency(s) [facility] 01/23/2025 10:09 AM Amanda [...] RN What day is the transport expected? [id number] 01/23/2025 10:09 AM Amanda Ford RN What time is the transport expected? 03201 01/23/2025 10:09 AM Amanda Ford RN Who [...] in Care Question Answer Entry Date Author Twister Hand N/A 01/18/2025 11:05 AM Dianelys Guan * [...] Entry Date Author Next PT Re-Assessment Date 82673 01/18/2025 10: 24 AM Micheal Roque Date of PT Session [id number] 01/18/2025 10:24 AM Micheal Hilliard * PT [...] 01/23/2025 8:00 AM Ariadne Horner RN * K 9 Handler/ Deputy Question Answer Entry Date Author Telemetry Strip Reviewed Yes, I have reviewed and acknowledged. 01/22/2025 7:48 AM Felisa Sidhu RN Proof Reader On No 01/23/2025 8:00 AM Ariadne Horner RN Telemetry Audible Yes 01/23/2025 4:2 0 AM Christina Lovell RN Telemetry Alarms Set Yes 01/23/2025 4:20 AM Christina Lovell RN Telemetry Box Number pacu #[id number] 01/16/2025 5:17 PM Felisa Forrest RN Bedside K 9 Handler/ Deputy On No 01/23/2025 8:00 AM Ariadne Horner RN Bedside Cardiac Audible Yes 01/24/20 4:20 AM Christina Lovell RN Bedside Cardiac Alarms Set Yes 01/23/2025 4:20 AM Christina Lovell RN * Gastrointestinal Question Answer Entry Date Author Most Recent BM Date [id number] 01/22/2025 8:18 PM Christina Yeh RN Gastrointestinal [...] Cardiac Question Answer Entry Date Author Cardiac ([facility]) WD 01/17/2025 4:00 PM EST Ofelia Peter RN * Respiratory Question Answer Entry Date Author Respiratory ([facility]) [facility] 01/23/2025 8:00 AM EST Ariadne Adame [...] 10:00 PM Cydney Garcia RN Food allergy, Taoism, or Cultural nutrition needs No 01/15/2025 10:00 [...] Precautions protective;precaut ions maintained 01/23/2025 8:00 AM Ariaden Horner RN Precautions Fall risk;Environmen gautam surveillance [...] 2 01/15/2025 10:00 PM Cydney Garcia RN QUALITY SYSTEM MANAGER Evaluation Needed 2 01/15/2025 10:00 PM Cydney [...] Kingsley Herrera RN Time of Last Void 66305 01/16/2025 3:07 PM Kingsley Voss RN Date of Last Liquid 31685 01/16/2025 3:07 PM Kingsley Herrera RN Date of Last Solid 35887 01/16/2025 3:07 PM Kingsley Voss RN Time [...] Author Interventions Provided Introduced Patichandni t/Family to Membership Sales Advisor Services 01/18/2025 2:30 PM Giancarlo Herrera * Outcomes Question Answer Entry Date Author Patient Outcomes Insulation Cutter And Former Services 01/18/2025 2:30 P M Giancarlo Herrera * Follow-Up Question Answer Entry Date Author Duration 10 minutes 01/18/2025 2:30 PM Giancarlo Herrera Pastoral Care Comment Membership Sales Advisor made foll ow up visit with Rosa and introductory visit with her family. They are aware of Pastoral Services and availability. 01/18/2025 2:30 PM Giancarlo Herrera Last Date of Pastoral Care Contact [id number] 01/18/2025 2:30 PM EST Giancarlo Pradhan * [...] 01/16/2025 5:30 PM Felisa Forrest RN Neuro ([facility]) X 01/16/2025 5:30 PM Felisa Forrest RN Hand Grasp/Motor Function/Sensation Assessment Grasp;Dorsiflexion;Mo tor response;Sensation;Mo tor strength 01/16/2025 5:30 PM Felisa Forrest RN * HEENT Question Answer Entry Date Author HEENT ([facility]) X 01/16/2025 5:17 PM Felisa Forrest RN * Cardiac Question Answer Entry Date Author Cardiac ([facility]) WDL 01/16/2025 5:17 PM Felisa Forrest RN * Gastrointestinal Question Answer Entry Date Author Gastrointestinal ([facility]) WDL 01/16/2025 5:17 PM Felisa Forrest RN * Genitourinary Question Answer Entry Date Author Genitourinary ([facility]) X 01/16/2025 5:17 PM Felisa Kapadia RN * Psychosocial Question Answer Entry Date Author Psychosocial ([facility]) WDL 01/16/2025 5:17 PM Felisa Forrest [...] 01/23/2025 8:00 AM Ariadne Horner RN * Franklin Coma Scale Question Answer Entry Date Author [...] Alice Garber * Temp (in Celsius) for [place] IV Answer Entry Date Author 36.7 01/23/2025 [...] Date [place] [address] 01/19/2025 2:53 PM EST French Pleitez * [...] without trying? 0 01/15/2025 10:00 PM Cydney Garcia, RAI Have you been eating poorly [...] Referral Sent to Answer Entry Date Author [facility] 01/22/2025 1:21 PM EST In [facility] * Elevate heels task - custom [...] Normothermia Interventions Question Answer Entry Date Author Bumpass Applied Yes 01/16/2025 5:18 PM Felisa Harry [...] 01/23/2025 10:09 AM Amanda Ford RN * [facility] 6-Clicks Mobility Assessment Question Answer Entry [...] railing? 2 01/18/2025 10:24 AM Katelyn Roque [facility] 6-Clicks Mobility Asse ssment Total 12 [...] crush, chew, or split. 01/23/2025 nystatin (Mycostatin) [id number] UNIT/ML suspension 04/21/2024 pantoprazole (Protonix) 40 MG [...] from the original note were not included. 85417 What is Sepsis? Sepsis is a very [...] (ICU). Last Reviewed Date: 2024 00:00:00 ?? [id number] [employer]. All rights reserved. This information is not intended as a substitute for professional medical care. Always follow your healthcare professional's instructions. * [facility] Jerome Henderson RN - 01/23/2025 12:18 PM EST Images from the original note were not included. 44576 Understanding Sepsis Sepsis is a life-threatening problem [...] . Last Reviewed Date: 2024 00:00:00 ?? [id number] [employer]. All rights reserved. This information is not intended as a substitute for professional medical care. Always follow your healthcare professional's instructions. * Inga [facility] - Jerome Henderson RN - 01/23/2025 12:18 PM EST Images from the original note were not included. [id number] Bacteremia, Suspected (Adult) Bacteremia is a bacterial [...] Lung infection (pneumonia) ? Infection of a associate medical director placed in a vein or [...] Last Reviewed Date: 2024 00:00:00 ?? [employer]. All rights reserved. This information is not intended as a substitute for professional medical care. Always follow your healthcare professional's instructions. * Progress Notes - Amanda Meza RN - 01/23/2025 10:13 AM EST Case Management Discharge Note Rosa Perdomo 74 y.o. female CSN: [id number] Admission: 01/15/2025 9:57 PM Primary Problem: Postoperative sepsis (CMS/HCC) Primary Automatic Lathe Setter: Patient is going to [facility] where staff can assist with care needs Assistance Available at Discharge: Current Outpatient/Agency/Support Group: clinic(s), DME Availability of Care Givers (#Hours): 24 hours (staff at [facility]) Family/Automatic Lathe Setter(s) Willingness Assessed to care for patient at home: Yes Family/Automatic Lathe Setter(s) Readiness Assessed to care for patient at home: Yes Housing Circumstances-Z Codes: Housing Circumstances (select all that apply): None Applicable Patient Referred to Financial or Community Resources: No community resources needed at this time. Going to [facility] Discharge Facility/Level of Care Needs: Discharge Facility/Level of Care Needs: 3-Fci Facility ([facility]) Patient's Choice of Community Agency(s): Patient's Choice of Community Agency(s): [facility] Patient/Family Anticipated Services at Transition: Patient/Family Anticipated Services at Transition: rehabilitation services, chcf ([facility]) DME/Equipment Needed after Discharge: Equipment Currently Used at Home: walker, rollator, shower chair Equipment Needed After Discharge: other (see comments) (per [facility]) Readmission Within the Last 30 Days: Readmission Within the Last 30 Days: no previous admission in last 30 days Medicare Documentation: Medicare Second Notice?: Yes Date Second Notice Completed: 01/22/25 Time Second Notice Completed: 1111 Medicare Second Notice Recieved By: patient Follow-up: Chase Gunn MD [address] [place] [address] Discharge Transportation: Transportation Anticipated: other (see comments) (W/C transport, tile picker at 2 pm.) Transportation Home at [...] Has Acute recs, but request DESTINEY at [facility]. Per admissions (Stacey), they can accept patient today. Patient will need to be on Vancomycin for discharge, not Dapto. Number for report: [phone] (Unit 1) [place] Summary: [phone] Narcs: Westley Mitchell in [place] Transport: Time for pickup changed to today 01/23 at 2 pm in the [facility]. Nurse, Stacey DANIELS (facility) and spouse notified [...] PCP name and Address: Chase Gunn MD [address] [place] [address] / [place] [address] Referring provider name and address: Chase Gunn MD [address] [place] [address] Chief Concern, Brief History of Present Illness, [...] at discharge. She was discharged to a chcf facility with a plan for continued IV [...] 01/31/2025 1:00 PM Dona Nava PA IDBCCLX [place] Test Results Pending At Discharge Pending Labs [...] present. Discharge Disposition/Condition Disposition: Nursing facility (specify) [facility] Condition: Stable (s/sx potential problems absent or [...] Ongoing, Progressing Intervention: Promote Activity and Functional Crook Flowsheets Taken 01/22/20252050 Self-Care Promotion: independence encouraged [...] Walker DO Infectious Disease Fellow, PGY-5 Pager: [phone] Epic Chat Preferred * Asher Fraser DO [...] OPAT Team Attn: Dr. Sinha Fax #: [phone] Appointments: Co-clinic with JORGE Keating, & Dr. Sinha on 01/31/2025 at 1:00pm at: [facility]: [address] [place] [address] (Select Option 3 for IV Antibiotic / PICC line related issues) For questions regarding OPAT prior to discharge, reach out to the OPAT team via [employer] Secure Chat (Group: OPAT Referral Team). For all questions regarding OPAT after discharge should be directed to the OPAT Team at (Select Option 3 for IV Antibiotics/PICC Issues) between 8am-5pm. After 5 pm, or during weekends/[place] holidays, please call the paging roll line operator at to reach the on-call ID [...] (recent C. diff), transferred here to [facility] from OSH for MRSA bacteremia. Spinal cord [...] Note Rosa Perdomo 74 y.o. female CSN: [id number] Admission: 01/15/2025 9:57 PM Primary Problem: Postoperative sepsis (CMS/HCC) Anticipated Discharge Date: 01/21 Has Discharge Plans Changed? No - [facility] Medicare Second Notice: Medicare Medicare Second Notice?: Yes Date Second Notice Completed: 01/22/25 Time Second Notice Completed: [facility] Medicare Second Notice Recieved By: patientNA at [...] Has Acute recs, but request DESTINEY at [facility]. Per admissions (Stacey), they cannot accept patient on Daptomycin. Discussed with MD, will remain on Vancomycin through 02/13/24. Number for report: [phone] (Unit 1) [place] Summary: [phone] Narcs: Westley Mitchell in [place] Transport: Patient not qualifying for ambulance. Concerns over transfers into vehicle. Meets < 300% [facility]PG. W/C Transport arranged via CM office with [facility] for 01/23 at 11 am. Nurse, [...] Ongoing, Progressing Intervention: Promote Activity and Functional Crook Flowsheets Taken 01/22/2025755 Adaptive Equipment Use: use [...] Ongoing, Progressing Intervention: Promote Activity and Functional Crook Flowsheets Taken 01/22/2025224 Self-Care Promotion: independence encouraged [...] (recent C. diff), transferred here to [facility] from OSH for MRSA bacteremia. Spinal cord [...] Ongoing, Progressing Intervention: Promote Activity and Functional Crook Flowsheets (Taken 01/21/20251127) Activity Assistance Provided: assistance, [...] Ongoing, Progressing Intervention: Promote Activity and Functional Crook Flowsheets Taken 01/20/20252101 Self-Care Promotion: independence encouraged [...] preference. Patient position: Supine Catheter Lot #: [id number] Catheter ladder operator: [employer] Catheter placed: Single lumen Catheter size: 4 [...] to first attempt. * Progress Notes - Clvee Deleon MD - 01/20/2025 12:16 PM EST [...] (recent C. diff), transferred here to [facility] from OSH for MRSA bacteremia. Spinal cord [...] Ongoing, Progressing Intervention: Promote Activity and Functional Crook Flowsheets (Taken 01/20/20251012) Activity Assistance Provided: assistance, [...] Ongoing, Progressing Intervention: Promote Activity and Functional Crook Flowsheets Taken 01/20/2025 020 Self-Care Promotion: BADL [...] (recent C. diff), transferred here to [facility] from OSH for MRSA bacteremia. Spinal cord [...] Note Rosa Perdomo 74 y.o. female CSN: [id number] Admission: 01/15/2025 9:57 PM Primary Problem: Postoperative sepsis (CMS/HCC) Anticipated Discharge Date: 01/21 Has Discharge Plans Changed? No - home or agreeable to SNF (requesting [facility] if needed) Medicare Second Notice: Medicare [...] placed. PT/OT recs for Acute. Patient requesting [facility] because it is closer to home. Spouse had also previously indicated that Is where they would want her to go. Spoke with Stacey at facility (admissions) who is reviewing. Referrals also sent to other facilities. CM will continue to follow for discharge needs. Amanda Meza RN * Progress Notes - Renae Resendiz, TIGHT BARREL INSPECTOR, DNP - 01/19/2025 11:01 AM EST Images [...] is no recent study available for direct bagk-yd-otbr comparison. CT Lumbar Spine w IV Contrast [...] Value Units Date/Time Blood Culture (Aerobic/Anaerobet Set) [[id number]] Collected: 01/18/25 1323 Order Status: Sent Specimen: Blood, Venous Fungal Culture, Routine [[id number]] Collected: 01/16/25 1605 Order Status: Completed Specimen: Abscess from Back, Lower Updated: 01/18/25 1041 Culture No Fungal Growth <1 Week Fungal Culture, Tissue and DEANDRE [[id number]] Collected: 01/16/25 1614 Order Status: Completed Specimen: Foreign Body from Back, Lower Updated: 01/18/25 1022 Culture Reading Mycological 4 Weeks No Fungal Growth <1 Week DEANDRE Source not suitable for smear Blood Culture (Aerobic/Anaerobet Set) [[id number]] Collected: 01/16/25 0128 Order Status: Completed Specimen: Blood from Hand, Right Updated: 01/18/25 0403 Culture No growth at day 2 Routine Culture and Gram Stain [[id number]] (Abnormal) Collected: 01/16/25 1614 Order Status: Completed Specimen: Foreign Body from Back, Lower Updated: 01/17/25 1327 Culture Heavy Growth 4+ Biotype 1 Staphylococcus aureus 2+ Biotype 2 Staphylococcus aureus Abscess Culture and Gram Stain [[id number]] (Abnormal) Collected: 01/16/25 1605 Order Status: Completed [...] Non Respiratory Source and Acid Fast Stain [[id number]] Collected: 01/16/25 161 Order Status: Completed Specimen: Foreign Body from Back, Lower Updated: 01/17/25 0557 Acid Fast Stain Source not suitable for smear Anaerobic Culture [[id number]] Collected: 01/16/25 160 Order Status: Sent Specimen: Abscess from Back, Lower Updated: 01/16/25 1710 AFB Culture, Non Respiratory Source and Acid Fast Stain [[id number]] Collected: 01/16/25 160 Order Status: Canceled Specimen: Abscess from Back, Lower Updated: 01/16/251709 Fungal Culture, Sterile Body Fluid (NOT CSF) and DEANDRE [[id number]] Collected: 01/16/25 160 Order Status: Canceled Specimen: Abscess from Back, Lower Updated: 01/16/251709 Anaerobic Culture [[id number]] Collected: 01/16/251613 Order Status: Sent Specimen: Foreign Body from Back, Lower Updated: 01/16/251709 Antimicrobials: -- Vancomycin IV 1500mg Q24H 01/16 - present -- Cefepime IV 2g Q12H 01/16 - 01/17 -- Metronidazole PO 500mg Q8H 01/16 - 01/17 Assessment: Patient Summary: Rosa Perdomo is a 74 y.o. female with history of DM2, hypertension, depression and anxiety, GERD was transferred to [facility] from outside facility for concern of MRSA bacteremia on 01/15. About 3 weeks ago she underwent spinal cord stimulator placement for spinal arthritis pain management. Blood cultures obtained at the facility (01/14) showed MRSA and she was transferred to [facility] for further management. Blood cultures collected at [facility] on 01/16 show NGTD. VINCENT took her [...] in their operative note. No indication of TAP DANCER involvement. OPAT orders are in - will [...] Diseases secure chat preferred Cosigned by Asher Sniha MD at 01/19/2025 6:01 PM EST Associated [...] Note Rosa Perdomo 74 y.o. female CSN: [id number] Room/Bed 135/135A Nutrition evaluation type: follow-up Reason for evaluation: Hospital course: 74 y/o F presented as a transfer from OSH for MRSA bacteremia. 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 S/p device explantation on 01/16/25 with [...] 37.74 Weight Evaluation: Obese-Class 2 (BMI 35-39.9) [place] Body Weight (kg): 52.2 Percent [place] Body Weight: 185 Adjusted Body Weight (kg): 63.4 Wt Readings from Last 10 Encounters: 01/16/25 96.6 kg (213 lb) 07/30/22 89.8 kg (198 lb) Estimated Needs: Metabolic Cart Study Results: Current Nutrition Intake: Diet Order: Adult Diet Diet Texture: Regular Adult Carbohydrate Restriction: Consistent CHO 2 (2217-8438 Feng, 80 g/meal) Percent Meals Eaten (%): 82% avg x 4 meals Diet Experience and Nutrition History: Diet Education Provided: Will monitor Pertinent home medications: Taoism needs: Nutrition Focused Physical Exam: Physical exam [...] Ongoing, Progressing Intervention: Promote Activity and Functional Crook Flowsheets Taken 01/19/2025 0913 Adaptive Equipment Use: [...] Ongoing, Progressing Intervention: Promote Activity and Functional Crook Flowsheets Taken 01/18/20251958 Self-Care Promotion: independence encouraged [...] (recent C. diff), transferred here to [facility] from OSH for MRSA bacteremia. Spinal cord [...] 01/18/2025 2:30 PM EST Pastoral Care Note Membership Sales Advisor made follow up visit with Rosa and introductory visit with her family. They are aware ofPastoral Services and availability. Referral From: Membership Sales Advisor Initiated Pastoral Care Provided For: Patient, Spouse, Child(odalis) Patient Profile: Consult Reasons: Initial visit Spiritual Assessment: Support Systems/ Spiritual Resources: Prayer Spiritual Needs: Emotional support Spiritual Issues: Change/ transition Interventions: Interventions Provided: Introduced Patient/Family to Membership Sales Advisor Services Pastoral Care Outcomes: Patient Outcomes: Is knowledgeable about [employer] Giancarlo Pradhan * Procedures - Ethel [...] PACS * Progress Notes - Renae Resendiz, TIGHT BARREL INSPECTOR, DNP - 01/18/2025 12:53 PM EST Images [...] is no recent study available for direct jfec-cn-plst comparison. CT Lumbar Spine w IV Contrast [...] Value Units Date/Time Blood Culture (Aerobic/Anaerobet Set) [[id number]] Collected: 01/18/25 1323 Order Status: Sent Specimen: Blood, Venous Fungal Culture, Routine [[id number]] Collected: 01/16/25 1605 Order Status: Completed Specimen: Abscess from Back, Lower Updated: 01/18/25 1041 Culture No Fungal Growth <1 Week Fungal Culture, Tissue and DEANDRE [[id number]] Collected: 01/16/25 1614 Order Status: Completed Specimen: Foreign Body from Back, Lower Updated: 01/18/25 1022 Culture Reading Mycological 4 Weeks No Fungal Growth <1 Week DEANDRE Source not suitable for smear Blood Culture (Aerobic/Anaerobet Set) [[id number]] Collected: 01/16/25 0128 Order Status: Completed Specimen: Blood from Hand, Right Updated: 01/18/25 0403 Culture No growth at day 2 Routine Culture and Gram Stain [[id number]] (Abnormal) Collected: 01/16/25 1614 Order Status: Completed Specimen: Foreign Body from Back, Lower Updated: 01/17/25 1327 Culture Heavy Growth 4+ Biotype 1 Staphylococcus aureus 2+ Biotype 2 Staphylococcus aureus Abscess Culture and Gram Stain [[id number]] (Abnormal) Collected: 01/16/25 1605 Order Status: Completed [...] Non Respiratory Source and Acid Fast Stain [[id number]] Collected: 01/16/251613 Order Status: Completed Specimen: Foreign Body from Back, Lower Updated: 01/17/25 0557 Acid Fast Stain Source not suitable for smear Anaerobic Culture [[id number]] Collected: 01/16/25 160 Order Status: Sent Specimen: Abscess from Back, Lower Updated: 01/16/25 1710 AFB Culture, Non Respiratory Source and Acid Fast Stain [[id number]] Collected: 01/16/251604 Order Status: Canceled Specimen: Abscess from Back, Lower Updated: 01/16/25 1710 Fungal Culture, Sterile Body Fluid (NOT CSF) and DEANDRE [[id number]] Collected: 01/16/251604 Order Status: Canceled Specimen: Abscess from Back, Lower Updated: 01/16/25 171 Anaerobic Culture [[id number]] Collected: 01/16/251613 Order Status: Sent Specimen: Foreign Body from Back, Lower Updated: 01/16/25 171 Antimicrobials: -- Vancomycin IV 1500mg Q24H 01/16 - present -- Cefepime IV 2g Q12H 01/16 - 01/17 -- Metronidazole PO 500mg Q8H 01/16 - 01/17 Assessment: Patient Summary: Rosa Perdomo is a 74 y.o. female with history of DM2, hypertension, depression and anxiety, GERD was transferred to [facility] from outside facility for concern of MRSA bacteremia on 01/15. About 3 weeks ago she underwent spinal cord stimulator placement for spinal arthritis pain management. Blood cultures obtained at the facility (01/14) showed MRSA and she was transferred to [facility] for further management. Blood cultures collected at [facility] on 01/16 show NGTD. VINCENT took her [...] in their operative note. No indication of TAP DANCER involvement. OPAT orders are in - will [...] admitted 01/15/2025 for work-up of Postoperative sepsis ([facility]). Problem List Active Hospital Problems Diagnosis Date Noted Date Diagnosed Postoperative sepsis ([facility]) 01/16/2025 Mixed hyperlipidemia 01/16/2025 Cellulitis of back except buttock 01/16/2025 Major depressive disorder with single episode, in remission ([facility]) 01/16/2025 MRSA bacteremia 01/16/2025 MADELEINE (iron deficiency anemia) 01/16/2025 Gastroesophageal reflux disease without esophagitis 01/16/2025 Transaminitis 01/16/2025 Hypertension 02/29/2024 Diabetes mellitus 02/29/2024 Procedures 01/16/2025 Procedures: EXPLORATION, WOUND, POSSIBLE SCS REMOVAL/REVISION, ALL OTHER INDICATED PROCEDURES Past Medical History Patient has a past medical history of Abnormal EKG, Anemia, Breast cyst, CKD (chronic kidney disease) stage 3, GFR 30-59 ml/min ([facility]), Depression, Diabetes mellitus, Dyspnea, HLD (hyperlipidemia), HTN (hypertension), Mitral valve prolapse, Paroxysmal A-fib, RSV (respiratory syncytial virus infection), Sciatica, SVT (supraventricular tachycardia) ([facility]), and Trigger finger. Past Surgical History Patient has a past surgical history that includes Colonoscopy; Esophagogastroduodenoscopy; Wrist surgery; Hernia repair; and Cholecystectomy. Precautions Medical Precautions: Fall precautions, Seizure precautions Subjective Pt and RN agreeable to initial OT evaluation. Pt reports she has not been out of bed in days. Participants in Care Family/Caregiver Present: No Twister Hand: Not Applicable Presentation Oxygen Therapy: Supplemental oxygen [...] Spouse Level of Mobility: Ambulatory- community Mobility Crook: Independent gait without device History of Falls: [...] Mobility Bed Mobility Exam: Scooting/Bridging Level of Crook: Dependent (scooting hips forward to edge of bed) Physical/Nonphysical Assist: Verbal Cues, Nonverbal cues (demo/gestures), Maximal cues, Additional assist utilized for safety Bed Mobility Exam: Supine to Sit Level of Crook: Moderate assist (50% patient's effort) Physical/Nonphysical Assist: HOB elevated, Moderate cues, Verbal Cues Assistive Device: Bed rails Transfers Transfer Exam: Sit to stand Level of Crook: Moderate assist (50% patient's effort) (x2 reps from edge of bed - 1st rep RIVET STICKER, 2nd rep to RW) Physical/Nonphysical Assist: Verbal Cues, Maximal cues, Additional assist utilized for safety Assistive Device: Walker, rolling Transfer Exam: Stand to Sit Level of Crook: Moderate assist (50% patient's effort) (poorly controlled descent) Physical/Nonphysical Assist: Verbal Cues, Maximal cues, Additional assist utilized for safety Assistive Device: Walker, rolling Transfer Exam: Bed to Chair/Chair to Bed Level of Crook: Moderate assist (50% patient's effort) (with significantly [...] a helper. 5 Set-up or Clean-up Assistance [place] sets up or cleans up; patient completes activity. [place] assists only prior to or following the activity. 4 Supervision or touching assistance [place] provides verbal cues and/or touching/steadying and/or contact guard assistance as patient completes activity. Assistance may be provided throughout the activity or intermittently. 3 Partial/Moderate Assistance [place] does LESS THAN HALF the effort. [place] lifts, holds or supports trunk or limbs, but provides less than half the effort. 2 Substantial/Maximal Assistance [place] does MORE THAN HALF the effort. [place] lifts or holds trunkor limbs and provides more than half the effort. 1 Dependent [place] does ALL of the effort. Patient does [...] admitted 01/15/2025 for work-up of Postoperative sepsis ([facility]). Problem List Active Hospital Problems Diagnosis Date [...] kidney disease) stage 3, GFR 30-59 ml/min ([facility]/HCC), Depression, Diabetes mellitus, Dyspnea, HLD (hyperlipidemia), HTN (hypertension), Mitral valve prolapse, Paroxysmal A-fib, RSV (respiratory syncytial virus infection), Sciatica, SVT (supraventricular tachycardia) (CMS/[facility]), and Trigger finger. Past Surgical History Patient has a past surgical history that includes Colonoscopy; Esophagogastroduodenoscopy; Wrist surgery; Hernia repair; and Cholecystectomy. Precautions Medical Precautions: Fall precautions, Seizure precautions Subjective Pt was agreeable to therapy today. Pt was glad to get to the chair today to brush her hair and her teeth. Participants in Care Family/Caregiver Present: No Twister Hand: Not Applicable Presentation Oxygen Therapy: Supplemental oxygen [...] Spouse Level of Mobility: Ambulatory- community Mobility Crook: Independent gait without device History of Falls: [...] Mobility Bed Mobility Exam: Scooting/Bridging Level of Crook: Dependent (scooting hips forward to edge of bed) Physical/Nonphysical Assist: Verbal Cues, Nonverbal cues (demo/gestures), Maximal cues, Additional assist utilized for safety Bed Mobility Exam: Supine to Sit Level of Crook: Moderate assist (50% patient's effort) Physical/Nonphysical Assist: HOB elevated, Moderate cues, Verbal Cues Transfers Transfer Exam: Sit to stand Level of Crook: Moderate assist (50% patient's effort) (x2 reps from edge of bed - 1st rep RIVET STICKER, 2nd rep to RW) Physical/Nonphysical Assist: Verbal Cues, Maximal cues, Additional assist utilized for safety Assistive Device: Walker, rolling Transfer Exam: Stand to Sit Level of Crook: Moderate assist (50% patient's effort) (poorly controlled descent) Physical/Nonphysical Assist: Verbal Cues, Maximal cues, Additional assist utilized for safety Assistive Device: Walker, rolling Transfer Exam: Bed to Chair/Chair to Bed Level of Crook: Moderate assist (50% patient's effort) (with significantly [...] below. Therapeutic Exercise (8 minutes) Access Code: [email or web address] URL: [email or web address] Date: 01/18/2025 Prepared by: Pk Exercises - [...] exercises. Pt demonstrated verbal understanding. Standardized Assessments [facility] 6-Clicks Mobility Assessment Difficulty patient [...] 3-5 steps with a railing?: A lot [facility] 6-Clicks Mobility Assessment Total : [...] Note Rosa Perdomo 74 y.o. female CSN: [id number] Admission: 01/15/2025 9:57 PM Primary Problem: Postoperative sepsis (CMS/HCC) Anticipated Discharge Date: 01/23 Has Discharge Plans Changed? No - home or agreeable to SNF (requesting [facility] if needed) Medicare Second Notice: NA [...] orders and - eval pending. Patient requesting [facility] if needed. CM will continue to follow for discharge needs. Addendum: PT/OT recs for Acute rehab. Difference between Acute and Subacute explained to patient. Patient states she would like to go to [facility] as it is closer to home. Attempted to reach spouseper patient request to also discuss with him. Unable to reach, unable to leave . Referrals to be made for [facility] when therapy notes are in. left for admissions at [facility]. Amanda Meza RN * Care Plan - [...] Pain and Promote Comfort Flowsheets (Taken 01/17/2025 7786) Pain Management Interventions: medication (see MAR) Intervention: [...] 01/17/2025 8:45 PM EST Pastoral Care Note Membership Sales Advisor visited with Rosa, she reports she wants a visit but this is not the best time. Chaplainwill follow up tomorrow as able. Referral From: Membership Sales Advisor Initiated Pastoral Care Provided For: Patient Patient Profile: Consult Reasons: Initial visit Spiritual Assessment: Support Systems/ Spiritual Resources: Family Spiritual Needs: Emotional support Interventions: Interventions Provided: Introduced Patient/Family to Membership Sales Advisor Services Pastoral Care Outcomes: Patient Outcomes: Is knowledgeable about [employer] Giancarlo Pradhan * Progress Notes - [...] (recent C. diff), transferred here to [facility] from OSH for MRSA bacteremia. Spinal cord [...] Single Lumen PICC Patient Specific Outpatient Circumstances: [address] [place] [address] Contact information Rosa Perdomo [phone] (home) Extended Emergency Contact Information Primary Emergency Contact: Westley Perdomo Relation: Spouse Twister Hand needed? No Secondary Emergency Contact: Oumou Ocasio Relation: Daughter Outpatient services (including home infusion, home health, facility referral: See recent case management/social work note for finalization of services ID follow up appointment: Future Appointments Date Time Provider Department Center 01/31/2025 1:00 PM Dona Nava PA IDBCCLX [place] Patient Assessment After review and discussion with the ID physician, the patient is currently enrolled in the Modified OPAT program. Patient is unable to administer IV antimicrobial therapy at home. But is appropriated for the Modified OPAT program. Please direct questions to OPAT referral team, another member of the OPAT team, or the ID consulting provider via secure chat or staff messaging in [employer]. OPAT Modified program for IV antimicrobial therapy [...] 01/17/2025 * Query Clarification Note - Cleve Deelon MD - 01/17/2025 4:20 PM EST Please [...] describe further: OPAT at a medical/nursingfacility (e.g, LTAC,[facility], Swing Bed, Nursing facility) Patient [...] Willie Shrestha (insert ID provider) Fax #: [phone] Appointments: (Co-clinic 01/31/2025 Insert ID Provider; date and time) at: [facility]: [address] [place] [address] (Select Option 3 for IV Antibiotic / PICC line related issues) For questions regarding OPAT prior to discharge, reach out to the OPAT team via [employer] Secure Chat (Group: OPAT Referral Team). For all questions regarding OPAT after discharge should be directed to the OPAT Team at (Select Option 3 for IV Antibiotics/PICC Issues) between 8am-5pm. After 5 pm, or during weekends/ holidays, please call the paging roll line operator at to reach the on-call ID [...] Note Rosa Perdomo 74 y.o. female CSN: [id number] Admission: 01/15/2025 9:57 PM Primary Problem: Postoperative sepsis (CMS/HCC) Anticipated Discharge Date: 01/23 Has Discharge Plans Changed? No - home or agreeable to SNF (requesting [facility] if needed) Medicare Second Notice: NA [...] orders and - eval pending. Patient requesting [facility] if needed. CM will continue to [...] Please call with any questions or concerns. [phone] Collins Thorne MD Resident Physician, PGY-1 Department of Neurosurgery [facility] Cosigned by Fransisco Farley MD [...] PM EST Operative Note Date: 01/16/2025 Location: [facility] Name: Rosa Perdomo, : 1950, Diagnoses: Pre-op Diagnosis MRSA bacteremia Infection of spinal cord stimulator, initial encounter Wound infection Post-op Diagnosis MRSA bacteremia Infection of spinal cord stimulator, initial encounter Wound infection Procedure(s): Explantation of entire spinal cord stimulator system (leads and IPG) Irrigation and debridement of midline lumbar and right paraspinal wounds Attending Surgeon(s): * Fransisco Farley - Primary Textile Scrap Salvager(s): * Janene Terrell MD - Resident - [...] and anxiety, GERD was transferred to [facility] from outside facility for concern of MRSA [...] showed MRSA and she was transferred to [facility] for further management. It appears that prior to the tr [facility] a PICC was placed while blood cultures were pending. Upon admission at [facility], no discharge was noted, but extensive cellulitis [...] Value Units Date/Time Blood Culture (Aerobic/Anaerobet Set) [[id number]] Collected: 01/16/25 0128 Order Status: Completed Specimen: Blood from Hand, Right Updated: 01/16/25 0501 Culture Culture in lab Antimicrobials: -- Vancomycin [id number] 12/9 - present -- Cefepime IV 2g Q12H 01/16 - present -- Metronidazole PO 500mg Q8H 01/16 - present Assessment: Patient Summary: Rosa Perdomo is a 74 y.o. female with history of DM2, hypertension, depression and anxiety, GERD was transferred to [facility] from outside facility for concern of MRSA bacteremia on 01/15. About 3 weeks ago she underwent spinal cord stimulator placement for spinal arthritis pain management. Blood cultures obtained at the facility (01/14) showed MRSA and she was transferred to [facility] for further management. Blood cultures collected at [facility] on 01/16 show NGTD. NSGY took her [...] in consultation. GENERAL ID will follow. Renae eRsendiz APRN, DNP Infectious Diseases [1] Past Medical [...] using miconazole nitrate ointment BID. Wound Assessment Acton;Denuded Rebecca-Wound Assessment Red;Rash Treatments Other (Comment) (ordered [...] Note Rosa Perdomo 74 y.o. female CSN: [id number] Admission: 01/15/2025 9:57 PM Primary Problem: Postoperative sepsis ([facility]/HCC) Car Whacker reviewed chart and spoke with patient and spouse at bedside to complete this Initial Case Management Assessment. PCP: Chase Gunn MD Emergency Contact: Extended Emergency Contact Information Primary Emergency Contact: Wsetley Perdomo Relation: Spouse Twister Hand needed? No Secondary Emergency Contact: Oumou Ocasio Relation: Daughter Insurance: Primary Visit Coverage Payer Plan Sponsor Code Group Number Group Name MEDICARE MEDICARE A & B -- -- -- Primary Visit Coverage Subscriber Subscriber ID Subscriber Name Subscriber [facility] Subscriber Address [id number] ROSA PERDOMO [id number] [place] [address] Secondary Visit Coverage Payer Plan Sponsor Code Group Number Group Name [facility] -- [id number] -- Secondary Visit Coverage Subscriber Subscriber ID Subscriber Name Subscriber [facility] Subscriber Address [id number] WESTLEY PERDOMO -- [address] [place] [address] Patient information: Primary Caregiver: Self Accompanied by/Relationship: spouse Support System: Immediate family Daily Living Activities: Functional Status: Independent Living Arrangements: Spouse/Significant other Type of Residence: Private residence, Multi Level (lives only on first floor, ramp entry) [address] [address] Smoker in the Home?: Yes Current DME: [...] HD and HI Living Will/Advance Directive/Power of Writing Center Director /Guardian: Have you reviewed your Advance Directive [...] is recommended, would like to go to [facility]. CM will continue to follow for discharge needs. Amanda Meza RN * Consults - Nani Leija RD - 01/16/2025 9:06 AM ESTAssociated Order(s): IP CONSULT TO NUTRITION SERVICES Adult Nutrition Evaluation Note Rosa Perdomo 74 y.o. female CSN: [id number] Room/Bed 135/135A Nutrition evaluation type: assessment Reason for evaluation: provider consult Hospital course: 74 y/o F presented as a transfer from OSH for MRSA bacteremia. 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 To OR 01/16 for exploration vs [...] (98.6 ??F) Oxygen Therapy: None (Room air) Franklin Coma Scale Score: 15 Isael Scale Score: [...] 37.81 Weight Evaluation: Obese-Class 2 (BMI 35-39.9) [place] Body Weight (kg): 52.2 Percent [place] Body Weight: 185 Adjusted Body Weight (kg): 63.4 Wt Readings from Last 10 Encounters: 01/15/25 96.8 kg (213 lb 6.5 oz) 07/30/22 89.8 kg (198 lb) Estimated Needs: Metabolic Cart Study Results: Current Nutrition Intake: Diet Order: NPO Diet Experience and Nutrition History: Diet Education Provided: Will monitor Pertinent home medications: Taoism needs: Nutrition Focused Physical Exam: Physical exam [...] Please call with any questions or concerns. [phone] Collins Thorne MD Resident Physician, PGY-1 Department of Neurosurgery [facility] Attending Attestation - Fransisco Yarbrough [...] (recent C. diff), transferred here to [facility] from OSH for MRSA bacteremia. Spinal cord [...] Family History: Family History[3] Social History: Living: [place] [address] with family Marital Status: Alcohol Use: denies [...] for: O2SAT , BD , BE , EAM7LMY , PCO2 , PH , PO2 , OJI6FMLM Venous Blood Gas: No results found for: BDVEN , BEVEN , WJY2MSS , XYC3LXX , PO2VEN , E6TCATVJ , IJF0CTTMLLR Microbiology: Results Procedure Component Value Units Date/Time Blood Culture (Aerobic/Anaerobet Set) [[id number]] Order Status: Sent Specimen: Blood, Venous Imaging [...] (recent C. diff), transferred here to [facility] from OSH for MRSA bacteremia. Spinal cord [...] L spine w/wo contrast pending -LR @ 100/pv-dn-iwhluxro as appropriate -Continuous telemetry 2/2 hospital transfer [...] Description 02/14/2025 1:00 PM EST Office Visit [facility] [address] [place] [address] Asher Sinha MD [address] [place] [address] 03/27/2025 8:30 AM EST Consult [facility] [address] [place] [address] Fransisco Farley MD [address] [place] [address] Pending Results Name Type Priority [...] UNSOLICITED RESULTS Routine 01/16/2025 3:19 PM EST OH EXPLORE WOUND,ABDOMEN/FLANK/BA CK 01/16/2025 3:09 PM EST [...] Plasma 14.9 ug/mL 01/31/2025 2:32 PM EST [facility] Blood Venous blood specimen / Unknown Venipuncture / Unknown 01/31/2025 12:57 PM EST 01/31/2025 1:01 PM EST us Merlin Massey MD LAB BLOOD ORDERABLES Final Resul t [facility] [address] [place] [address] * (ABNORMAL) Comprehensive metabolic panel (01/31/2025 12:57 PM EST) Glucose, Plasma 177(H) 74 - 99 mg/dL 01/31/2025 2:32 PM EST [facility] BUN, Plasma 19 8 - 23 mg/dL 01/31/2025 2:32 PM EST [facility] Creatinine, Plasma 1.15(H) 0.60 - 1.10 mg/dL 01/31/2025 2:32 PM EST [facility] BUN/Creatinine Ratio 17 01/31/2025 2:32 PM EST [facility] Sodium, Plasma 138 136 - 145 mmol/L 01/31/2025 2:32 PM EST [facility] Potassium, Plasma 4.1 3.6 - 4.9 mmol/L 01/31/2025 2:32 PM EST [facility] Chloride, Plasma 98 97 - 107 mmol/L 01/31/2025 2:32 PM EST [facility] CO2, Plasma 27 22 - 29 mmol/L 01/31/2025 2:32 PM EST [facility] Anion Gap 13 6 - 16 mmol/L 01/31/2025 2:32 PM EST [facility] Total Calcium, Plasma 9.4 8.9 - 10.2 mg/dL 01/31/2025 2:32 PM EST [facility] Total Protein 6.9 6.3 - 7.9 g/dL 01/31/2025 2:32 PM EST [facility] Albumin, Plasma 3.8 3.5 - 5.2 g/dL 01/31/2025 2:32 PM EST [facility] AST, Plasma 29 10 - 35 U/L 01/31/2025 2:32 PM EST [facility] ALT, Plasma 24 10 - 35 U/L 01/31/2025 2:32 PM EST [facility] Alkaline Phosphatase, Plasma 121 46 - 142 U/L 01/31/2025 2:32 PM EST [facility] Total Bilirubin, Plasma 0.2 0.2 - 1.1 mg/dL 01/31/2025 2:32 PM EST [facility] eGFRcr 50.1 mL/min/1.7 3m*2 01/31/2025 2:32 PM EST [facility] Comment:Reported eGFRcr in m L/min/1.73m2 is based the CKD-EPI 2020 equation that does not use a race coefficient. Blood Venous blood specimen / Unknown Venipuncture / Unknown 01/31/2025 12:57 PM EST 01/31/2025 1:01 PM EST us Merlin Massey MD LAB BLOOD ORDERABLES Final Resul t [facility] [address] [place] [address] * (ABNORMAL) CBC and Differential (01/31/2025 12:57 PM EST) WBC Count 5.78 3.70 - 10.30 10*3/uL LAB HEMATOLOGY METHOD 01/31/2025 2:26 PM EST [facility] RBC Count 3.46(L) 3.90 - 5.20 10*6/uL LAB HEMATOLOGY METHOD 01/31/2025 2:26 PM EST [facility] HGB 10.8(L) 11.2 - 15.7 g/dL LAB HEMATOLOGY METHOD 01/31/2025 2:26 PM EST [facility] HCT 34.3 34.0 - 45.0 % LAB HEMATOLOGY METHOD 01/31/2025 2:26 PM EST [facility] Platelet Count 313 155 - 369 10*3/uL LAB HEMATOLOGY METHOD 01/31/2025 2:26 PM [facility] MCV 99(H) 79 - 98 fL LAB HEMATOLOGY METHOD 01/31/2025 2:26 PM [facility] MCH 31.2 26.0 - 32.0 pg LAB HEMATOLOGY METHOD 01/31/2025 2:26 PM [facility] MCHC 31.5 30.7 - 35.5 g/dL LAB HEMATOLOGY METHOD 01/31/2025 2:26 PM [facility] RDW 14.6(H) 11.5 - 14.5 % LAB HEMATOLOGY METHOD 01/31/2025 2:26 PM [facility] MPV 9.8 8.8 - 12.5 fL LAB HEMATOLOGY METHOD 01/31/2025 2:26 PM [facility] nRBC 0.0 <=0.0 per 100 WBCs LAB HEMATOLOGY METHOD 01/31/2025 2:26 PM [facility] Differential Type Automated LAB HEMATOLOGY METHOD 01/31/2025 2:26 PM [facility] Neutrophils % 58 % LAB HEMATOLOGY METHOD 01/31/2025 2:26 PM [facility] Lymphocytes % 23 % LAB HEMATOLOGY METHOD 01/31/2025 2:26 PM [facility] Monocytes % 12 % LAB HEMATOLOGY METHOD 01/31/2025 2:26 PM EST [facility] Eosinophils % 6 % LAB HEMATOLOGY METHOD 01/31/2025 2:26 PM EST [facility] Basophils % 1 % LAB HEMATOLOGY METHOD 01/31/2025 2:26 PM EST [facility] Immature Granulocytes % 0 % LAB HEMATOLOGY METHOD 01/31/2025 2:26 PM EST [facility] Neutrophils Absolute 3.37 1.60 - 6.10 10*3/uL LAB HEMATOLOGY METHOD 01/31/2025 2:26 PM EST [facility] Lymphocytes Absolute 1.33 1.20 - 3.90 10*3/uL LAB HEMATOLOGY METHOD 01/31/2025 2:26 PM EST [facility] Monocytes Absolute 0.71 0.30 - 0.90 10*3/uL LAB HEMATOLOGY METHOD 01/31/2025 2:26 PM EST [facility] Eosinophils Absolute 0.32 0.00 - 0.50 10*3/uL LAB HEMATOLOGY METHOD 01/31/2025 2:26 PM EST [facility] Basophils Absolute 0.04 0.00 - 0.10 10*3/uL LAB HEMATOLOGY METHOD 01/31/2025 2:26 PM EST [facility] Immature Granulocytes Absolute 0.01 0.00 - 0.06 10*3/uL LAB HEMATOLOGY METHOD 01/31/2025 2:26 PM EST [facility] Blood Venous blood specimen / Unknown Venipuncture / Unknown 01/31/2025 12:57 PM EST 01/31/2025 1:01 PM EST Narrative [facility] - 01/31/2025 2:26 PM EST Therapeutic decision making should be based on absolute values, rather than percentages. us Merlin Massey MD LAB BLOOD ORDERABLES Final Resul t [facility] [address] [place] [address] * (ABNORMAL) POCT glucose meter (01/23/2025 8:18 AM EST) POCT Glucose 147(H) 74 - 99 mg/dL 01/23/2025 8:20 AM EST [facility] Comment:Accuracy of a glucos e [...] 01/23/2025 8:20 AM EST [facility] Global Transportation Manager ID Benji Gilbert 01/23/2025 8:20 AM EST [facility] Device ID [id number] 01/23/2025 8:20 AM EST [facility] Specimen Type POC Capillary 01/23/2025 8:20 AM EST [facility] Blood Capillary blood specimen / Unknown 01/23/2025 8:18 AM EST 01/23/2025 8:20 AM EST us Merlin Massey MD LAB POINT OF CARE TE ST DOCKED DEVICE UNSOLICITED RESULTS Final Result Performing Organization Address City/[facility] Co de Phone Number [facility] [address] [place] [address] * (ABNORMAL) POCT glucose meter (01/22/2025 8:20 PM EST) [facility] POCT Glucose 230(H) 74 - 99 mg/dL [...] Comment 01/22/2025 8:26 PM EST [facility] Global Transportation Manager ID Felisa Sarmiento 025 8:26 PM EST [facility] Device ID [id number] 01/22/2025 8:26 PM EST [facility] Specimen Type POC Capillary 01/22/2025 8:26 PM EST [facility] Blood Capillary blood specimen / Unknown 01/22/2025 8:20 PM EST 01/22/2025 8:26 PM EST us Cleve Deleon MD LAB POINT OF CARE TE ST DOCKED DEVICE UNSOLICITED RESULTS Final Result Performing Organization Address City/[facility]/ZIP Co de Phone Number [facility] [address] [place] [address] * (ABNORMAL) POCT glucose meter (01/22/2025 5:05 PM EST) Pathologist [facility] POCT Glucose 188(H) 74 - 99 mg/dL [...] 01/22/2025 5:06 PM EST [facility] Global Transportation Manager ID Jayy Travis 01/23/20 5:06 PM EST [facility] Device ID [id number] 01/22/2025 5:06 PM EST [facility] Specimen Type POC Capillary 01/22/2025 5:06 PM EST [facility] Blood Capillary blood specimen / Unknown 01/22/2025 5:05 PM EST 01/22/2025 5:06 PM EST Cleve Deleon MD LAB POINT OF CARE TE ST DOCKED DEVICE UNSOLICITED RESULTS Final Result [facility] [address] [place] [address] * (ABNORMAL) POCT glucose meter (01/22/2025 11:53 AM EST) [facility] POCT Glucose 229(H) 74 - 99 mg/dL [...] 01/22/2025 11:55 AM EST [facility] Global Transportation Manager ID Jayy Travis 01/23/20 11:55 AM EST [facility] Device ID [id number] 01/22/2025 11:55 AM EST [facility] Specimen Type POC Capillary 01/22/2025 11:55 AM EST [facility] Blood Capillary blood specimen / Unknown 01/22/2025 11:53 AM EST 01/22/2025 11:55 AM EST us Cleve Deleon MD LAB POINT OF CARE TE ST DOCKED DEVICE UNSOLICITED RESULTS Final Result Performing Organization Address City/[facility]/ZIP Co de Phone Number [facility] [address] [place] [address] * (ABNORMAL) POCT glucose meter (01/22/2025 7:51 AM EST) POCT Glucose 141(H) 74 - 99 mg/dL 01/22/2025 7:52 AM EST [facility] Comment:Accuracy of a glucos e result [...] Comment 01/22/2025 7:52 AM EST [facility] Global Transportation Manager ID AngyJayy 01/23/20 7:52 AM EST [facility] Device ID [id number] 01/22/2025 7:52 AM EST [facility] Specimen Type POC Capillary 01/22/2025 7:52 AM EST [facility] Blood Capillary blood specimen / Unknown 01/22/2025 7:51 AM EST 01/22/2025 7:52 AM EST us Cleve Deleon MD LAB POINT OF CARE TE ST DOCKED DEVICE UNSOLICITED RESULTS Final Result Performing Organization Address City/[facility]/ZIP Co de Phone Number [facility] [address] [place] [address] * Vancomycin, Peak, Plasma Please draw ~2 hours after 0300 dose on 01/22 finishes infusing. Consider obtaining level via peripheral stick. If peripheral stick is not feasible, please ensure that line is flushed well prior to drawing level. Thanks! (01/22/2025 6:32 AM EST) Vancomycin, Peak, Plasma 29.1 20.0 - 40.0 ug/mL 01/22/2025 7:07 AM EST [facility] Blood Venous blood specimen / Unknown Venipuncture / Unknown 01/22/2025 6:32 AM EST 01/22/2025 6:37 AM EST Narrative [facility] - 01/22/2025 7:07 AM EST Therapeutic Peak level: 20-40ug/mL Supra-therapeutic Peak level: >40 ug/mL Cleve Deleon MD LAB BLOOD ORDERABLES Final Re sult [facility] [address] [place] [address] * Vancomycin, Trough, Plasma Please draw ~30 minutes prior to dose due at 0300 on 01/22. ??Please do NOT hold dose awaiting level to return. Consider obtaining level via peripheral stick. If peripheralstick is not feasible, please ensure that line/p... (01/22/2025 3:04 AM EST) [facility] Vancomycin, Trough, Plasma 13.7 10.0 - 20.0 ug/mL 01/22/2025 3:45 AM EST [facility] Blood Venous blood specimen / Unknown Venipuncture / Unknown 01/22/2025 3:04 AM EST 01/22/2025 3:15 AM EST Narrative [facility] - 01/22/2025 3:45 AM EST Therapeutic Trough level: 10-20ug/mL Supra-therapeutic Trough level: >20 ug/mL Cleve Deleon MD LAB BLOOD ORDERABLES Final Re sult [facility] [address] [place] [address] * (ABNORMAL) POCT glucose meter (01/21/2025 9:42 PM EST) [facility] POCT Glucose 186(H) 74 - 99 mg/dL 01/21/2025 9:43 PM EST [facility] Comment:Accuracy of a glucos e result [...] Comment 01/21/2025 9:43 PM EST [facility] Global Transportation Manager ID Alice Garber 01/21/2025 9:43 PM EST [facility] Device ID [id number] 01/21/2025 9:43 PM EST [facility] Specimen Type POC Capillary 01/21/2025 9:43 PM EST [facility] Blood Capillary blood specimen / Unknown 01/21/2025 9:42 PM EST 01/21/2025 9:43 PM EST us Cleve Deleon MD LAB POINT OF CARE TE ST DOCKED DEVICE UNSOLICITED RESULTS Final Result Performing Organization Address City/State/[facility] de Phone Number [facility]ALTH[facility]ARE [facility] [address] [place] [address] * (ABNORMAL) POCT glucose meter (01/21/2025 5:12 PM EST) [facility] POCT Glucose 214(H) 74 - 99 mg/dL 01/21/2025 5:14 PM EST [facility] Comment:Accuracy of a glucos e [...] Comment 01/21/2025 5:14 PM EST [facility] Global Transportation Manager ID Sabine Garrett 01/21/2025 5:14 PM EST [facility] Device ID [id number] 01/21/2025 5:14 PM EST [facility] Specimen Type POC Capillary 01/21/2025 5:14 PM EST [facility] Blood Capillary blood specimen / Unknown 01/21/2025 5:12 PM EST 01/21/2025 5:14 PM EST us Cleve Deleon MD LAB POINT OF CARE TE ST DOCKED DEVICE UNSOLICITED RESULTS Final Result Performing Organization Address City/[facility]/ZIP Co de Phone Number [facility] [address] [place] [address] * (ABNORMAL) POCT glucose meter (01/21/2025 12:15 [...] for testing. Comment 01/21/2025 12:20 PM EST [facility] Global Transportation Manager ID QuinnShelleyAlysa R 01/21/2025 12:20 PM EST [facility] Device ID [id number] 01/21/2025 12:20 PM EST [facility] Specimen Type POC Capillary 01/21/2025 12:20 PM EST [facility] Blood Capillary blood specimen / Unknown 01/21/2025 12:15 PM EST 01/21/2025 12:20 PM EST us Cleve Deleon MD LAB POINT OF CARE TE ST DOCKED DEVICE UNSOLICITED RESULTS Final Result Performing Organization Address City/[facility] Co de Phone Number [facility] [address] [place] [address] * (ABNORMAL) POCT glucose meter (01/21/2025 8:15 [...] 01/21/2025 8:19 AM EST [facility] Global Transportation Manager ID Alysa Quinn 01/21/2025 8:19 AM EST [facility] Device ID [id number] 01/21/2025 8:19 AM EST [facility] Specimen Type POC Capillary 01/21/2025 8:19 AM EST [facility] Blood Capillary blood specimen / Unknown 01/21/2025 8:15 AM EST 01/21/2025 8:19 AM EST us Cleve Deleon MD LAB POINT OF CARE TE ST DOCKED DEVICE UNSOLICITED RESULTS Final Result Performing Organization Address City/[facility] Co de Phone Number [facility] [address] [place] [address] * (ABNORMAL) POCT glucose meter (01/20/2025 7:48 [...] 01/20/2025 7:49 PM EST [facility] Global Transportation Manager ID Silva Coates 025 7:49 PM EST [facility] Device ID [id number] 01/20/2025 7:49 PM EST [facility] Specimen Type POC Capillary 01/20/2025 7:49 PM EST [facility] Blood Capillary blood specimen / Unknown 01/20/2025 7:48 PM EST 01/20/2025 7:49 PM EST us Cleve Deleon MD LAB POINT OF CARE TE ST DOCKED DEVICE UNSOLICITED RESULTS Final Result Performing Organization Address City/[facility]/ZIP Co de Phone Number [facility] [address] [place] [address] * XR Chest 1 View (01/20/2025 5:57 [...] Ha RN Authorized by: Cleve Deleon MD [place] Protocol: Verbal consent obtained?: Yes Written consent [...] preference. 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: [employer] Catheter placed: Single lumen Catheter size: 4 [...] - 99 mg/dL 01/20/2025 5:06 PM EST [facility] Comment:Accuracy of a glucos e result [...] Comment 01/20/2025 5:06 PM EST [facility] Global Transportation Manager ID Jane Wilson 01/20/2025 5:06 PM EST [facility] Device ID [id number] 01/20/2025 5:06 PM EST [facility] Specimen Type POC Capillary 01/20/2025 5:06 PM EST [facility] Blood Capillary blood specimen / Unknown 01/20/2025 5:05 PM EST 01/20/2025 5:06 PM EST us Cleve Deleon MD LAB POINT OF CARE TE ST DOCKED DEVICE UNSOLICITED RESULTS Final Result Performing Organization Address City/State/[facility] de Phone Number [facility]ARE [facility] [address] [place] [address] * (ABNORMAL) POCT glucose meter (01/20/2025 11:57 AM EST) POCT Glucose 228(H) 74 - 99 mg/dL 01/20/2025 11:59 AM EST [facility] Comment:Accuracy of a glucos e [...] Comment 01/20/2025 11:59 AM EST [facility] Global Transportation Manager ID Jane Wilson 01/20/2025 11:59 AM EST [facility]ARE LAB Device ID [id number] 01/20/2025 11:59 AM EST [facility] Specimen Type POC Capillary 01/20/2025 11:59 AM EST [facility] Blood Capillary blood specimen / Unknown 01/20/2025 11:57 AM EST 01/20/2025 11:59 AM EST us Cleve Deleon MD LAB POINT OF CARE TE ST DOCKED DEVICE UNSOLICITED RESULTS Final Result Performing Organization Address City/[facility] Co de Phone Number [facility] [address] [place] [address] * SEND SARA MESSAGE (01/20/2025 11:02 AM EST) Urine Urine specimen obtained by clean catch procedure / Unknown Non-blood Collection / Unknown 01/20/2025 11:02 AM EST 01/20/2025 11:06 AM EST us Cleve Deleon MD LAB URINE ORDERABLES Final Re sult Performing Organization Address City/[facility] [facility] Co de Phone Number [facility] [address] [place] [address] * (ABNORMAL) Urine Culture (01/20/2025 11:02 AM EST) Culture 10,000 - 100,000 CFU/mL Trista albicans(A) 01/22/2025 7:50 AM EST [facility] Comment:This isolate has bee n identified using the FDA Approved [employer]ayante System Urine Urine specimen obtained by clean catch procedure / Unknown Non-blood Collection / Unknown 01/20/2025 11:02 AM EST 01/20/2025 11:06 AM EST us Cleve Deleon MD LAB MICROBIOLOGY - GENERAL OR DERABLES Final Result Performing Organization Address [facility] de Phone Number [facility] [address] [place] [address] * Urinalysis Microscopic Examination (01/20/2025 11:02 AM EST) Urine Urine specimen obtained by clean catch procedure / Unknown Non-blood Collection / Unknown 01/20/2025 11:02 AM EST 01/20/2025 11:06 AM EST us Cleve Deleon MD LAB URINE ORDERABLES Final Re sult Performing Organization Address City/[facility]/ZIP Co de Phone Number [facility] [address] [place] [address] * Urine Avery Panel (01/20/2025 11:02 AM EST) Extra Sent for Culture 01/20/2025 1:02 PM [facility] Urine Urine specimen obtained by clean catch procedure / Unknown Non-blood Collection / Unknown 01/20/2025 11:02 AM EST 01/20/2025 11:06 AM EST us Cleve Deleon MD LAB URINE ORDERABLES Final Re sult [facility] [address] [place] [address] * (ABNORMAL) Urinalysis with reflex microscopic (Culture NOT Included) (01/20/2025 11:02 AM EST) Color, Urine Yellow LAB URINALYSIS - AUTOMATED METHOD 01/20/2025 11:24 AM [facility] Clarity, Urine Cloudy LAB URINALYSIS - AUTOMATED METHOD 01/20/2025 11:24 AM [facility] Spec [place], Urine 1.017 1.005 - 1.030 LAB URINALYSIS - AUTOMATED METHOD 01/20/2025 11:24 AM [facility] pH, Urine 6.5 5.0 - 8.0 LAB URINALYSIS - AUTOMATED METHOD 01/20/2025 11:24 AM [facility] Protein, Urine Trace(A) Negative mg/dL LAB URINALYSIS - AUTOMATED METHOD 01/20/2025 11:24 AM [facility] Glucose, Urine >=1000(A) Negative mg/dL LAB URINALYSIS - AUTOMATED METHOD 01/20/2025 11:24 AM [facility] Ketones, Urine Negative Negative mg/dL LAB URINALYSIS - AUTOMATED METHOD 01/20/2025 11:24 AM [facility] Blood, Urine Trace(A) Negative LAB URINALYSIS - AUTOMATED METHOD 01/20/2025 11:24 AM [facility] Bilirubin, Urine Negative Negative LAB URINALYSIS - AUTOMATED METHOD 01/20/2025 11:24 AM [facility] Urobilinogen, Urine 0.2 0.2 to 1.0 mg/dL LAB URINALYSIS - AUTOMATED METHOD 01/20/2025 11:24 AM [facility] Leukocytes, Urine Small(A) Negative LAB URINALYSIS - AUTOMATED METHOD 01/20/2025 11:24 AM EST [facility] Nitrite, Urine Negative Negative LAB URINALYSIS - AUTOMATED METHOD 01/20/2025 11:24 AM EST [facility] RBC, Urine 2 0 to 3 /HPF LAB URINALYSIS - AUTOMATED METHOD 01/20/2025 11:24 AM EST [facility] WBC, Urine >50(A) 0 to 5 /HPF LAB URINALYSIS - AUTOMATED METHOD 01/20/2025 11:24 AM EST [facility] Squamous Epithelial Cells 0 - 2 0 to 5 /HPF LAB URINALYSIS - AUTOMATED METHOD 01/20/2025 11:24 AM EST [facility] Hyaline Casts 3 - 5 0 to 5 /LPF LAB URINALYSIS - AUTOMATED METHOD 01/20/2025 11:24 AM EST [facility] Bacteria, Urine Negative Negative LAB URINALYSIS - AUTOMATED METHOD 01/20/2025 11:24 AM EST [facility] Yeast (Budding and/or Pseudohyphae) Present(A) Absent LAB URINALYSIS - AUTOMATED METHOD 01/20/2025 11:24 AM EST [facility] Urine Urine specimen obtained by clean catch procedure / Unknown Non-blood Collection / Unknown 01/20/2025 11:02 AM EST 01/20/2025 11:06 AM EST us Cleve Deleon MD LAB URINE ORDERABLES Final Re sult [facility] [address] [place] [address] * (ABNORMAL) POCT glucose meter (01/20/2025 8:03 AM EST) POCT Glucose 139(H) 74 - 99 mg/dL 01/20/2025 8:05 AM EST [facility] Comment:Accuracy of a glucos e [...] for testing. Comment 01/20/2025 8:05 AM EST [facility] Global Transportation Manager ID KatieJane og 01/20/2025 8:05 AM EST [facility] Device ID [id number] 01/20/2025 8:05 AM EST [facility] Specimen Type POC Capillary 01/20/2025 8:05 AM EST [facility] Blood Capillary blood specimen / Unknown 01/20/2025 8:03 AM EST 01/20/2025 8:05 AM EST us Cleve Deleon MD LAB POINT OF CARE TE ST DOCKED DEVICE UNSOLICITED RESULTS Final Result Performing Organization Address City/[facility]/ZIP Co de Phone Number [facility] [address] [place] [address] * (ABNORMAL) Creatine Kinase (CK), Total (01/20/2025 5:02 AM EST) Creatine Kinase, Plasma 290(H) 37 - 168 U/L 01/20/2025 5:37 AM EST [facility] Blood Venous blood specimen / Unknown Venipuncture / Unknown 01/20/2025 5:02 AM EST 01/20/2025 5:07 AM EST us Cleve Deleon MD LAB BLOOD ORDERABLES Final Re sult [facility] [address] [place] [address] * (ABNORMAL) Basic metabolic panel (01/20/2025 5:02 AM EST) Glucose, Plasma 151(H) 74 - 99 mg/dL 01/20/2025 5:37 AM EST [facility] BUN, Plasma 12 8 - 23 mg/dL 01/20/2025 5:37 AM EST [facility] Creatinine, Plasma 0.79 0.60 - 1.10 mg/dL 01/20/2025 5:37 AM EST [facility] BUN/Creatinine Ratio 15 01/20/2025 5:37 AM EST [facility] Sodium, Plasma 139 136 - 145 mmol/L 01/20/2025 5:37 AM EST [facility] Potassium, Plasma 3.6 3.6 - 4.9 mmol/L 01/20/2025 5:37 AM EST [facility] Chloride, Plasma 102 97 - 107 mmol/L 01/20/2025 5:37 AM EST [facility] CO2, Plasma 28 22 - 29 mmol/L 01/20/2025 5:37 AM EST [facility] Anion Gap 9 6 - 16 mmol/L 01/20/2025 5:37 AM EST [facility] Total Calcium, Plasma 8.2(L) 8.9 - 10.2 mg/dL 01/20/2025 5:37 AM EST [facility] eGFRcr 78.6 mL/min/1.7 3m*2 01/20/2025 5:37 AM EST [facility] Comment:Reported eGFRcr in m L/min/1.73m2 is based the CKD-EPI 2020 equation that does not use a race coefficient. Blood Venous blood specimen / Unknown Venipuncture / Unknown 01/20/2025 5:02 AM EST 01/20/2025 5:07 AM EST us Cleve Deleon MD LAB BLOOD ORDERABLES Final Re sult [facility] [address] [place] [address] * (ABNORMAL) POCT glucose meter (01/19/2025 8:10 PM EST) POCT Glucose 213(H) 74 - 99 mg/dL 01/19/2025 8:12 PM EST [facility] Comment:Accuracy of a glucos e result [...] for testing. Comment 01/19/2025 8:12 PM EST [facility] Global Transportation Manager ID Silva Coates [id number] 8:12 PM EST [facility] Device ID [id number] 01/19/2025 8:12 PM EST [facility] Specimen Type POC Capillary 01/19/2025 8:12 PM EST [facility] Blood Capillary blood specimen / Unknown 01/19/2025 8:10 PM EST 01/19/2025 8:12 PM EST us Cleve Deleon MD LAB POINT OF CARE TE ST DOCKED DEVICE UNSOLICITED RESULTS Final Result Performing Organization Address City/[facility]/ZIP Co de Phone Number [facility] [address] [place] [address] * (ABNORMAL) POCT glucose meter (01/19/2025 5:32 [...] Comment 01/19/2025 5:33 PM EST [facility] Global Transportation Manager ID Waldemar Duvall Aleyda 01/19/2025 5:33 PM EST [facility] Device ID [id number] 01/19/2025 5:33 PM EST [facility] Specimen Type POC Capillary 01/19/2025 5:33 PM EST [facility] Blood Capillary blood specimen / Unknown 01/19/2025 5:32 PM EST 01/19/2025 5:33 PM EST us Cleve Deleon MD LAB POINT OF CARE TE ST DOCKED DEVICE UNSOLICITED RESULTS Final Result Performing Organization Address City/[facility]/ZIP Co de Phone Number [facility] [address] [place] [address] * (ABNORMAL) POCT glucose meter (01/19/2025 12:21 [...] Comment 01/19/2025 12:22 PM EST [facility] Global Transportation Manager ID Aleyda Haley 01/19/2025 12:22 PM EST [facility] Device ID [id number] 01/19/2025 12:22 PM EST [facility] Specimen Type POC Capillary 01/19/2025 12:22 PM EST [facility] Blood Capillary blood specimen / Unknown 01/19/2025 12:21 PM EST 01/19/2025 12:22 PM EST us Cleve Deleon MD LAB POINT OF CARE TE ST DOCKED DEVICE UNSOLICITED RESULTS Final Result Performing Organization Address City/State/[facility] [place] de Phone Number [facility] [address] [place] [address] * (ABNORMAL) POCT glucose meter (01/19/2025 8:18 AM EST) POCT Glucose 140(H) 74 - 99 mg/dL 01/19/2025 8:20 AM EST [facility] Comment:Accuracy of a glucos e [...] 01/19/2025 8:20 AM EST [facility] Global Transportation Manager ID Aleyda Haley 01/19/2025 8:20 AM EST [facility] Device ID [id number] 01/19/2025 8:20 AM EST [facility] Specimen Type POC Capillary 01/19/2025 8:20 AM EST [facility] Blood Capillary blood specimen / Unknown 01/19/2025 8:18 AM EST 01/19/2025 8:20 AM EST us Cleve Deleon MD LAB POINT OF CARE TE ST DOCKED DEVICE UNSOLICITED RESULTS Final Result [facility] [address] [place] [address] * Phosphorus (01/19/2025 6:05 AM EST) Phosphorus, Plasma 3.0 2.5 - 4.5 mg/dL 01/19/2025 6:40 AM EST [facility] Blood Venous blood specimen / Unknown Venipuncture / Unknown 01/19/2025 6:05 AM EST 01/19/2025 6:15 AM EST us Cleve Deleon MD LAB BLOOD ORDERABLES Final Re sult Performing Organization Address City/[facility] Co de Phone Number [facility] [address] [place] [address] * Magnesium (01/19/2025 6:05 AM EST) Pathologist [facility] Magnesium, Plasma 2.1 1.9 - 2.4 mg/dL 01/19/2025 6:40 AM EST [facility] Blood Venous blood specimen / Unknown Venipuncture / Unknown 01/19/2025 6:05 AM EST 01/19/2025 6:15 AM EST us Cleve Deleon MD LAB BLOOD ORDERABLES Final Re sult Performing Organization Address City/[facility] Co de Phone Number [facility] [address] [place] [address] * Vancomycin, Peak, Plasma Please draw ~2 hours after 0230 dose of vancomycin finishes infusing. Consider obtaining level via peripheral stick. If peripheral stick is not feasible, please ensure that line is flushed well prior to drawing level. Than... (01/19/2025 6:05 AM EST) Vancomycin, Peak, Plasma 39.7 20.0 - 40.0 ug/mL 01/19/2025 6:42 AM EST [facility] Blood Venous blood specimen / Unknown Venipuncture / Unknown 01/19/2025 6:05 AM EST 01/19/2025 6:15 AM EST Narrative [facility] - 01/19/2025 6:42 AM EST Therapeutic Peak level: 20-40ug/mL Supra-therapeutic Peak level: >40 ug/mL us Cleve Deleon MD LAB BLOOD ORDERABLES Final Re sult Performing Organization Address [facility] [place] [address] * Vancomycin, Trough, Plasma Please draw ~30 minutes prior to dose due at 0230 on 01/19. Please do NOT hold dose awaiting level to return. Consider obtaining level via peripheral stick. If peripheral stick is not feasible, please ensure that line i... (01/19/2025 2:05 AM EST) Pathologist [facility] Vancomycin, Trough, Plasma 16.4 10.0 - 20.0 ug/mL 01/19/2025 2:40 AM EST [facility] Blood Venous blood specimen / Unknown Venipuncture / Unknown 01/19/2025 2:05 AM EST 01/19/2025 2:12 AM EST Narrative [facility] - 01/19/2025 2:40 AM EST Therapeutic Trough level: 10-20ug/mL Supra-therapeutic Trough level: >20 ug/mL us Cleve Deleon MD LAB BLOOD ORDERABLES Final Re sult Performing Organization Address [facility] de Phone Number [facility] [address] [place] [address] * (ABNORMAL) POCT glucose meter (01/18/2025 10:05 PM EST) POCT Glucose 181(H) 74 - 99 mg/dL 01/18/2025 10:43 PM EST [facility] Comment:Accuracy of a glucos e result [...] Comment 01/18/2025 10:43 PM EST [facility] Global Transportation Manager ID Felisa Sarmiento 025 10:43 PM EST [facility] Device ID [id number] 01/18/2025 10:43 PM EST [facility] Specimen Type POC Capillary 01/18/2025 10:43 PM EST [facility] Blood Capillary blood specimen / Unknown 01/18/2025 10:05 PM EST 01/18/2025 10:43 PM EST us Cleve Deleon MD LAB POINT OF CARE TE ST DOCKED DEVICE UNSOLICITED RESULTS Final Result Performing Organization Address City/[facility] Co de Phone Number [facility] [address] [place] [address] * (ABNORMAL) POCT glucose meter (01/18/2025 5:34 [...] Comment 01/18/2025 9:25 PM EST [facility] Global Transportation Manager ID Renae Mcleod 01/19/20 9:25 PM EST [facility] Device ID [id number] 01/18/2025 9:25 PM EST [facility] Specimen Type POC Capillary 01/18/2025 9:25 PM EST [facility] Blood Capillary blood specimen / Unknown 01/18/2025 5:34 PM EST 01/18/2025 9:25 PM EST us Cleve Deleon MD LAB POINT OF CARE TE ST DOCKED DEVICE UNSOLICITED RESULTS Final Result Performing Organization Address City/[facility]/ZIP Co de Phone Number [facility] [address] [place] [address] * Blood Culture (Aerobic/Anaerobet Set) (01/18/2025 1:23 PM EST) Culture No growth at day 5 SADA 01/23/2025 2:02 PM EST [facility] Blood Venous blood specimen / Unknown Venipuncture / Unknown 01/18/2025 1:23 PM EST 01/18/2025 1:34 PM EST us Cleve Deleon MD LAB MICROBIOLOGY - GENERAL OR DERABLES Final Result [facility] [address] [place] [address] * PERIPHERAL IV (SMARTFORM LINK) (01/18/2025 12:54 [...] 99 mg/dL 01/18/2025 12:01 PM EST [facility] Comment:Accuracy of a glucos e result [...] Comment 01/18/2025 12:01 PM EST [facility] Global Transportation Manager ID Renae Mcleod 01/19/20 12:01 PM EST [facility] Device ID [id number] 01/18/2025 12:01 PM EST [facility] Specimen Type POC Capillary 01/18/2025 12:01 PM EST [facility] Blood Capillary blood specimen / Unknown 01/18/2025 12:00 PM EST 01/18/2025 12:01 PM EST us Cleve Deleon MD LAB POINT OF CARE TE ST DOCKED DEVICE UNSOLICITED RESULTS Final Result Performing Organization Address City/[facility] Co de Phone Number [facility] [address] [place] [address] * (ABNORMAL) POCT glucose meter (01/18/2025 8:25 AM EST) [facility] POCT Glucose 146(H) 74 - 99 [...] Comment 01/18/2025 8:27 AM EST [facility] Global Transportation Manager ID Renae Mcleod 01/19/20 8:27 AM EST [facility] Device ID [id number] 01/18/2025 8:27 AM EST [facility] Specimen Type POC Capillary 01/18/2025 8:27 AM EST [facility] Blood Capillary blood specimen / Unknown 01/18/2025 8:25 AM EST 01/18/2025 8:27 AM EST us Cleve Deleon MD LAB POINT OF CARE TE ST DOCKED DEVICE UNSOLICITED RESULTS Final Result Performing Organization Address City/[facility]/ZIP Co de Phone Number [facility] [address] [place] [address] * (ABNORMAL) CBC and Differential (01/18/2025 4:56 AM EST) Pathologist [facility] WBC Count 10.71(H) 3.70 - 10.30 10*3/uL LAB HEMATOLOGY METHOD 01/18/2025 5:22 AM EST [facility] RBC Count 2.79(L) 3.90 - 5.20 10*6/uL LAB HEMATOLOGY METHOD 01/18/2025 5:22 AM EST [facility] HGB 9.0(L) 11.2 - 15.7 g/dL LAB HEMATOLOGY METHOD 01/18/2025 5:22 AM [facility] HCT 27.4(L) 34.0 - 45.0 % LAB HEMATOLOGY METHOD 01/18/2025 5:22 AM [facility] Platelet Count 400(H) 155 - 369 10*3/uL LAB HEMATOLOGY METHOD 01/18/2025 5:22 AM [facility] MCV 98 79 - 98 fL LAB HEMATOLOGY METHOD 01/18/2025 5:22 AM [facility] MCH 32.3(H) 26.0 - 32.0 pg LAB HEMATOLOGY METHOD 01/18/2025 5:22 AM [facility] MCHC 32.8 30.7 - 35.5 g/dL LAB HEMATOLOGY METHOD 01/18/2025 5:22 AM [facility] RDW 14.3 11.5 - 14.5 % LAB HEMATOLOGY METHOD 01/18/2025 5:22 AM [facility] MPV 9.0 8.8 - 12.5 fL LAB HEMATOLOGY METHOD 01/18/2025 5:22 AM [facility] nRBC 0.0 <=0.0 per 100 WBCs LAB HEMATOLOGY METHOD 01/18/2025 5:22 AM [facility] Differential Type Automated LAB HEMATOLOGY METHOD 01/18/2025 5:22 AM [facility] Neutrophils % 79 % LAB HEMATOLOGY METHOD 01/18/2025 5:22 AM [facility] Lymphocytes % 9 % LAB HEMATOLOGY METHOD 01/18/2025 5:22 AM [facility] Monocytes % 9 % LAB HEMATOLOGY METHOD 01/18/2025 5:22 AM [facility] Eosinophils % 2 % LAB HEMATOLOGY METHOD 01/18/2025 5:22 AM EST [facility] Basophils % 0 % LAB HEMATOLOGY METHOD 01/18/2025 5:22 AM EST [facility] Immature Granulocytes % 1 % LAB HEMATOLOGY METHOD 01/18/2025 5:22 AM EST [facility] Neutrophils Absolute 8.43(H) 1.60 - 6.10 10*3/uL LAB HEMATOLOGY METHOD 01/18/2025 5:22 AM EST [facility] Lymphocytes Absolute 0.99(L) 1.20 - 3.90 10*3/uL LAB HEMATOLOGY METHOD 01/18/2025 5:22 AM EST [facility] Monocytes Absolute 0.97(H) 0.30 - 0.90 10*3/uL LAB HEMATOLOGY METHOD 01/18/2025 5:22 AM EST [facility] Eosinophils Absolute 0.21 0.00 - 0.50 10*3/uL LAB HEMATOLOGY METHOD 01/18/2025 5:22 AM EST [facility] Basophils Absolute 0.03 0.00 - 0.10 10*3/uL LAB HEMATOLOGY METHOD 01/18/2025 5:22 AM EST [facility] Immature Granulocytes Absolute 0.08(H) 0.00 - 0.06 10*3/uL LAB HEMATOLOGY METHOD 01/18/2025 5:22 AM EST [facility] Blood Blood sample taken from central line / Unknown Venipuncture / Unknown 01/18/2025 4:56 AM EST 01/18/2025 5:12 AM EST Narrative [facility] - 01/18/2025 5:22 AM EST Therapeutic decision making should be based on absolute values, rather than percentages. us Cleve Deleon MD LAB BLOOD ORDERABLES Final Re sult [facility] [address] [place] [address] * (ABNORMAL) Magnesium, Plasma (01/18/2025 4:56 AM EST) Magnesium, Plasma 1.7(L) 1.9 - 2.4 mg/dL 01/18/2025 5:42 AM EST [facility] Blood Blood sample taken from central line / Unknown Venipuncture / Unknown 01/18/2025 4:56 AM EST 01/18/2025 5:12 AM EST us Cleve Deleon MD LAB BLOOD ORDERABLES Final Re sult [facility] [address] [place] [address] * (ABNORMAL) Basic Metabolic Panel, Plasma (01/18/2025 4:56 AM EST) Glucose, Plasma 151(H) 74 - 99 mg/dL 01/18/2025 5:42 AM EST [facility] BUN, Plasma 16 8 - 23 mg/dL 01/18/2025 5:42 AM EST [facility] Creatinine, Plasma 0.90 0.60 - 1.10 mg/dL 01/18/2025 5:42 AM EST [facility] BUN/Creatinine Ratio 18 01/18/2025 5:42 AM EST [facility] Sodium, Plasma 142 136 - 145 mmol/L 01/18/2025 5:42 AM EST [facility] Potassium, Plasma 4.0 3.6 - 4.9 mmol/L 01/18/2025 5:42 AM EST [facility] Chloride, Plasma 104 97 - 107 mmol/L 01/18/2025 5:42 AM EST [facility] CO2, Plasma 25 22 - 29 mmol/L 01/18/2025 5:42 AM EST [facility] Anion Gap 13 6 - 16 mmol/L 01/18/2025 5:42 AM EST [facility] Total Calcium, Plasma 8.4(L) 8.9 - 10.2 mg/dL 01/18/2025 5:42 AM EST [facility] eGFRcr 67.2 mL/min/1.7 3m*2 01/18/2025 5:42 AM EST [facility] Comment:Reported eGFRcr in m L/min/1.73m2 is based the CKD-EPI 2020 equation that does not use a race coefficient. Blood Blood sample taken from central line / Unknown Venipuncture / Unknown 01/18/2025 4:56 AM EST 01/18/2025 5:12 AM EST us Cleve Deleon MD LAB BLOOD ORDERABLES Final Re sult Performing Organization Address [facility] Co de Phone Number [facility] [address] [place] [address] * (ABNORMAL) Phosphorus, Plasma (01/18/2025 4:56 AM EST) Phosphorus, Plasma 1.9(L) 2.5 - 4.5 mg/dL 01/18/2025 5:42 AM EST [facility] Blood Blood sample taken from central line / Unknown Venipuncture / Unknown 01/18/2025 4:56 AM EST 01/18/2025 5:12 AM EST us Cleve Deleon MD LAB BLOOD ORDERABLES Final Re sult Performing Organization Address [facility] de Phone Number [facility] [address] [place] [address] * Hepatitis C Antibody - ED W/Reflex to HCV Quant PCR (01/18/2025 4:56 AM EST) Hepatitis C Antibody Negative Negative 01/18/2025 5:53 AM EST [facility] Blood Blood sample taken from central line / Unknown Venipuncture / Unknown 01/18/2025 4:56 AM EST 01/18/2025 5:11 AM EST us Cleve Deleon MD LAB BLOOD ORDERABLES Final Re sult Performing Organization Address [facility] Co de Phone Number [facility] [address] [place] [address] * (ABNORMAL) Hepatic Function Panel (01/18/2025 4:56 AM EST) Direct Bilirubin, Plasma <0.2 <=0.3 mg/dL 01/18/2025 5:42 AM EST [facility] Alkaline Phosphatase, Plasma 263(H) 46 - 142 U/L 01/18/2025 5:42 AM EST [facility] Total Bilirubin, Plasma 0.3 0.2 - 1.1 mg/dL 01/18/2025 5:42 AM EST [facility] Albumin, Plasma 3.0(L) 3.5 - 5.2 g/dL 01/18/2025 5:42 AM EST [facility] Total Protein 6.1(L) 6.3 - 7.9 g/dL 01/18/2025 5:42 AM EST [facility] ALT, Plasma 53(H) 10 - 35 U/L 01/18/2025 5:42 AM EST [facility] AST, Plasma 70(H) 10 - 35 U/L 01/18/2025 5:42 AM EST [facility] Blood Blood sample taken from central line / Unknown Venipuncture / Unknown 01/18/2025 4:56 AM EST 01/18/2025 5:12 AM EST us Cleve Deleon MD LAB BLOOD ORDERABLES Final Re sult [facility] [address] [place] [address] * (ABNORMAL) POCT glucose meter (01/17/2025 9:24 [...] Comment 01/17/2025 9:27 PM EST [facility] Global Transportation Manager ID Felisa Sarmiento 025 9:27 PM EST [facility] Device ID [id number] 01/17/2025 9:27 PM EST [facility] Specimen Type POC Capillary 01/17/2025 9:27 PM EST [facility] Blood Capillary blood specimen / Unknown 01/17/2025 9:24 PM EST 01/17/2025 9:27 PM EST us Cleve Deleon MD LAB POINT OF CARE TE ST DOCKED DEVICE UNSOLICITED RESULTS Final Result Performing Organization Address City/[facility]/ZIP Co de Phone Number [facility] [address] [place] [address] * Hepatitis B Surface Antigen (01/17/2025 7:50 PM EST) Pathologist [facility] Hepatitis B Surf Antigen Negative Negative 01/17/2025 10:06 PM EST [facility] Blood Arterial blood specimen / Unknown (Central Line) Existing Catheter / Unknown 01/17/2025 7:50 PM EST 01/17/2025 7:54 PM EST Cleve Deleon MD LAB BLOOD ORDERABLES Final Re sult Performing Organization Address [facility] [place] Phone Number [facility] [address] [place] [address] * Hepatitis B Surface Antibody, Quantitative (01/17/2025 7:50 PM EST) Pathologist [facility] [place] Hepatitis B Surface Antibody, Quantitative <8.00 NonReactiv e: <8, [place]: 8 - <12, Reactive: >= 12 mIU/mL 01/17/2025 10:06 PM EST [facility] Comment: Nonreactive. Individual is considered not immune to HBV infection. Blood Arterial blood specimen / Unknown (Central Line) Existing Catheter / Unknown 01/17/2025 7:50 PM EST 01/17/2025 7:54 PM EST Cleve Deleon MD LAB BLOOD ORDERABLES Final Re sult Performing Organization Address [facility]/ZIP Co de Phone Number [facility] [address] [place] [address] * Hepatitis B Core Total Antibody IgG,IgM (01/17/2025 7:50 PM EST) Pathologist [facility] [place] Hepatitis B Core Total Antibody IgG,IgM Negative Negative 01/17/2025 10:06 PM EST [facility] Blood Arterial blood specimen / Unknown (Central Line) Existing Catheter / Unknown 01/17/2025 7:50 PM EST 01/17/2025 7:54 PM EST us Cleve Deleon MD LAB BLOOD ORDERABLES Final Re sult Performing Organization Address City/[facility]/ZIP Co de Phone Number [facility] [address] [place] [address] * Hepatitis B Core Antibody IgM (01/17/2025 7:50 PM EST) Pathologist [facility] [place] Hepatitis B Core Antibody IgM Negative Negative 01/17/2025 10:06 PM EST [facility] Blood Arterial blood specimen / Unknown (Central Line) Existing Catheter / Unknown 01/17/2025 7:50 PM EST 01/17/2025 7:54 PM EST us Cleve Deleon MD LAB BLOOD ORDERABLES Final Re sult Performing Organization Address [facility] de Phone Number [facility] [address] [place] [address] * (ABNORMAL) POCT glucose meter (01/17/2025 5:55 PM EST) [facility] POCT Glucose 186(H) 74 - 99 [...] 01/17/2025 5:57 PM EST [facility] Global Transportation Manager ID Medeiros JadielAleyda singh 01/17/2025 5:57 PM EST [facility]ALTH[facility]ARE LAB Device ID [id number] 01/17/2025 5:57 PM EST [facility] Specimen Type POC Capillary 01/17/2025 5:57 PM EST [facility] Blood Capillary blood specimen / Unknown 01/17/2025 5:55 PM EST 01/17/2025 5:57 PM EST us Cleve Deleon MD LAB POINT OF CARE TE ST DOCKED DEVICE UNSOLICITED RESULTS Final Result Performing Organization Address [facility] de Phone Number [facility] [address] [place] [address] * (ABNORMAL) POCT glucose meter (01/17/2025 12:33 PM EST) [facility] POCT Glucose 172(H) 74 - 99 [...] 01/17/2025 12:34 PM EST [facility] Global Transportation Manager ID Waldemar DuvallAleyda 01/17/2025 12:34 PM EST [facility]ARE LAB Device ID [id number] 01/17/2025 12:34 PM EST [facility] Specimen Type POC Capillary 01/17/2025 12:34 PM EST [facility] Blood Capillary blood specimen / Unknown 01/17/2025 12:33 PM EST 01/17/2025 12:34 PM EST Cleve Deleon MD LAB POINT OF CARE TE ST DOCKED DEVICE UNSOLICITED RESULTS Final Result Performing Organization Address City/[facility] Co de Phone Number [facility] [address] [place] [address] * ECHO, ADULT TRANSTHORACIC COMPLETE (01/17/2025 11:55 AM EST) [facility] BSA 2.07 m2 PINEDA ISCV LVIDd [...] is no recent study available for direct [id number] comparison. Left Ventricle The left ventricle is [...] is no recent study available for direct [id number]-[id number]-[id number] comparison. us Cleve Deleon MD CV ECHO PROCEDURES Final Resu lt * (ABNORMAL) POCT glucose meter (01/17/2025 5:23 AM EST) POCT Glucose 166(H) 74 - 99 mg/dL 01/17/2025 5:25 AM EST [facility] Comment:Accuracy of a glucos e result [...] Comment 01/17/2025 5:25 AM EST [facility]ARE [facility] Global Transportation Manager ID Cydney Valiente 5:25 AM EST [facility]ALTH[facility]ARE LAB Device ID [id number] 01/17/2025 5:25 AM EST [facility] LAB Specimen Type POC Capillary 01/17/2025 5:25 AM EST [facility] Blood Capillary blood specimen / Unknown 01/17/2025 5:23 AM EST 01/17/2025 5:25 AM EST us Cleve Deleon MD LAB POINT OF CARE TE ST DOCKED DEVICE UNSOLICITED RESULTS Final Result [facility] [address] [place] [address] * (ABNORMAL) CBC and Differential (01/17/2025 2:31 AM EST) WBC Count 8.74 3.70 - 10.30 10*3/uL LAB HEMATOLOGY METHOD 01/17/2025 3:05 AM EST [facility] RBC Count 2.82(L) 3.90 - 5.20 10*6/uL LAB HEMATOLOGY METHOD 01/17/2025 3:05 AM EST [facility] HGB 8.9(L) 11.2 - 15.7 g/dL LAB HEMATOLOGY METHOD 01/17/2025 3:05 AM EST [facility] HCT 27.9(L) 34.0 - 45.0 % LAB HEMATOLOGY METHOD 01/17/2025 3:05 AM EST [facility] Platelet Count 351 155 - 369 10*3/uL LAB HEMATOLOGY METHOD 01/17/2025 3:05 AM EST [facility] MCV 99(H) 79 - 98 fL LAB HEMATOLOGY METHOD 01/17/2025 3:05 AM EST [facility] MCH 31.6 26.0 - 32.0 pg LAB HEMATOLOGY METHOD 01/17/2025 3:05 AM EST [facility] MCHC 31.9 30.7 - 35.5 g/dL LAB HEMATOLOGY METHOD 01/17/2025 3:05 AM [facility] RDW 14.2 11.5 - 14.5 % LAB HEMATOLOGY METHOD 01/17/2025 3:05 AM [facility] MPV 9.1 8.8 - 12.5 fL LAB HEMATOLOGY METHOD 01/17/2025 3:05 AM [facility] nRBC 0.0 <=0.0 per 100 WBCs LAB HEMATOLOGY METHOD 01/17/2025 3:05 AM [facility] Differential Type Automated LAB HEMATOLOGY METHOD 01/17/2025 3:05 AM [facility] Neutrophils % 88 % LAB HEMATOLOGY METHOD 01/17/2025 3:05 AM [facility] Lymphocytes % 8 % LAB HEMATOLOGY METHOD 01/17/2025 3:05 AM [facility] Monocytes % 2 % LAB HEMATOLOGY METHOD 01/17/2025 3:05 AM [facility] Eosinophils % 0 % LAB HEMATOLOGY METHOD 01/17/2025 3:05 AM [facility] Basophils % 0 % LAB HEMATOLOGY METHOD 01/17/2025 3:05 AM [facility] Immature Granulocytes % 2 % LAB HEMATOLOGY METHOD 01/17/2025 3:05 AM [facility] Neutrophils Absolute 7.74(H) 1.60 - 6.10 10*3/uL LAB HEMATOLOGY METHOD 01/17/2025 3:05 AM [facility] Lymphocytes Absolute 0.68(L) 1.20 - 3.90 10*3/uL LAB HEMATOLOGY METHOD 01/17/2025 3:05 AM [facility] Monocytes Absolute 0.17(L) 0.30 - 0.90 10*3/uL LAB HEMATOLOGY METHOD 01/17/2025 3:05 AM [facility] Eosinophils Absolute 0.00 0.00 - 0.50 10*3/uL LAB HEMATOLOGY METHOD 01/17/2025 3:05 AM [facility] Basophils Absolute 0.02 0.00 - 0.10 10*3/uL LAB HEMATOLOGY METHOD 01/17/2025 3:05 AM [facility] Immature Granulocytes Absolute 0.13(H) 0.00 - 0.06 10*3/uL LAB HEMATOLOGY METHOD 01/17/2025 3:05 AM [facility] Blood Venous blood specimen / Unknown Venipuncture / Unknown 01/17/2025 2:31 AM EST 01/17/2025 2:40 AM EST Narrative [facility] - 01/17/2025 3:05 AM EST Therapeutic decision making should be based on absolute values, rather than percentages. us Cleve Deleon MD LAB BLOOD ORDERABLES Final Re sult Performing Organization Address [facility]/ZIP Co de Phone Number [facility] [address] [place] [address] * Magnesium, Plasma (01/17/2025 2:31 AM EST) Magnesium, Plasma 2.0 1.9 - 2.4 mg/dL 01/17/2025 3:08 AM EST [facility] Blood Venous blood specimen / Unknown Venipuncture / Unknown 01/17/2025 2:31 AM EST 01/17/2025 2:39 AM EST us Cleve Deleon MD LAB BLOOD ORDERABLES Final Re sult Performing Organization Address City/[facility] Co de Phone Number [facility] [address] [place] [address] * (ABNORMAL) Basic Metabolic Panel, Plasma (01/17/2025 2:31 AM EST) Glucose, Plasma 193(H) 74 - 99 mg/dL 01/17/2025 3:08 AM EST [facility] BUN, Plasma 17 8 - 23 mg/dL 01/17/2025 3:08 AM EST [facility] Creatinine, Plasma 0.87 0.60 - 1.10 mg/dL 01/17/2025 3:08 AM EST [facility] BUN/Creatinine Ratio 20 01/17/2025 3:08 AM EST [facility] Sodium, Plasma 140 136 - 145 mmol/L 01/17/2025 3:08 AM EST [facility] Potassium, Plasma 4.6 3.6 - 4.9 mmol/L 01/17/2025 3:08 AM EST [facility] Chloride, Plasma 104 97 - 107 mmol/L 01/17/2025 3:08 AM EST [facility] CO2, Plasma 24 22 - 29 mmol/L 01/17/2025 3:08 AM EST [facility] Anion Gap 12 6 - 16 mmol/L 01/17/2025 3:08 AM EST [facility] Total Calcium, Plasma 8.7(L) 8.9 - 10.2 mg/dL 01/17/2025 3:08 AM EST [facility] eGFRcr 70.0 mL/min/1.7 3m*2 01/17/2025 3:08 AM EST [facility] Comment:Reported eGFRcr in m L/min/1.73m2 is based the CKD-EPI 2020 equation that does not use a race coefficient. Blood Venous blood specimen / Unknown Venipuncture / Unknown 01/17/2025 2:31 AM EST 01/17/2025 2:39 AM EST us Cleve Deleon MD LAB BLOOD ORDERABLES Final Re sult [facility] [address] [place] [address] * Phosphorus, Plasma (01/17/2025 2:31 AM EST) Phosphorus, Plasma 4.3 2.5 - 4.5 mg/dL 01/17/2025 3:08 AM EST [facility] Blood Venous blood specimen / Unknown Venipuncture / Unknown 01/17/2025 2:31 AM EST 01/17/2025 2:39 AM EST us Cleve Deleon MD LAB BLOOD ORDERABLES Final Re sult [facility] [address] [place] [address] * (ABNORMAL) POCT glucose meter (01/17/2025 12:39 AM EST) POCT Glucose 198(H) 74 - 99 mg/dL 01/17/2025 12:41 AM EST [facility] Comment:Accuracy of a glucos e [...] 01/17/2025 12:41 AM EST [facility] Global Transportation Manager ID Cydney Valiente 12:41 AM EST [facility] Device ID [id number] 01/17/2025 12:41 AM EST [facility] Specimen Type POC Capillary 01/17/2025 12:41 AM EST [facility] Blood Capillary blood specimen / Unknown 01/17/2025 12:39 AM EST 01/17/2025 12:41 AM EST us Cleve Deleon MD LAB POINT OF CARE TE ST DOCKED DEVICE UNSOLICITED RESULTS Final Result Performing Organization Address City/State/[facility] Co pa Phone Number [facility] [address] [place] [address] * CT Lumbar Spine w IV Contrast (01/16/2025 8:00 PM EST) Anatomical Region Laterality Modality Spine, L-spine Computed Tomogra phy Impressions 01/17/2025 1:25 PM EST Interval removal of spinal cord stimulator. Fluid and air at the site of removed hardware, presumably postsurgical. CRITICAL RESULT: No COMMUNICATION: Per this written report. Drafted by Ar Wick MD on 01/17/2025 1:05 PM Final report signed by rA Wick MD on 01/17/2025 1:25 PM Narrative [...] - 99 mg/dL 01/16/2025 6:36 PM EST [facility] Comment:Accuracy of a glucos e result [...] 01/16/2025 6:36 PM EST [facility] Global Transportation Manager ID Amandeep Ward 01/16/2025 6:36 PM EST [facility] Device ID [id number] 01/16/2025 6:36 PM EST [facility] Specimen Type POC Capillary 01/16/2025 6:36 PM EST [facility] Blood Capillary blood specimen / Unknown 01/16/2025 6:35 PM EST 01/16/2025 6:36 PM EST us Cleve Deleon MD LAB POINT OF CARE TE ST DOCKED DEVICE UNSOLICITED RESULTS Final Result Performing Organization Address [facility] Co de Phone Number [facility] [address] [place] [address] * (ABNORMAL) POCT glucose meter (01/16/2025 5:22 [...] 01/16/2025 5:23 PM EST [facility] Global Transportation Manager ID Felisa Hernandez 5:23 PM EST [facility] Device ID [id number] 01/16/2025 5:23 PM EST [facility] Specimen Type POC Capillary 01/16/2025 5:23 PM EST [facility] Blood Capillary blood specimen / Unknown 01/16/2025 5:22 PM EST 01/16/2025 5:23 PM EST us Cleve Deleon MD LAB POINT OF CARE TE ST DOCKED DEVICE UNSOLICITED RESULTS Final Result Performing Organization Address City/[facility] Co de Phone Number [facility] [address] [place] [address] * FL Less than 1 Hour Intraoperative [...] Culture Heavy Growth 01/19/2025 5:17 PM EST [facility] Culture 4+ Biotype 1 Methicillin-Resis tant Staphylococcus aureus(AA) 01/19/2025 5:17 PM EST [facility] Comment: For susceptibility results refer to: - [id number] Edited result: Previously reported as Staphylococcus aureus on 01/17/2025 at 1327 EST. Staphylococcus aureus has been updated to reportable. Culture 2+ Biotype 2 Methicillin-Resis tant Staphylococcus aureus(AA) 01/19/2025 5:17 PM EST [facility] Comment: For susceptibility results refer to: - [id number] Edited result: Previously reported as Staphylococcus aureus on 01/17/2025 at 1327 EST. Staphylococcus aureus has been updated to reportable. Foreign Body Lower back structure / Unknown 01/16/2025 4:14 PM EST 01/16/2025 5:10 PM EST Comment:Pre-op diagnosis: MRSA bacteremia [R78.81, B95.62] Fransisco Gaston MD LAB MICROBIOLOGY - G ENERAL ORDERABLES Final Result Performing Organization Address City/[facility]/ZIP Co de Phone Number [facility] [address] [place] [address] * Anaerobic Culture (01/16/2025 4:14 PM EST) Culture No anaerobes isolated 01/20/2025 2:57 PM EST [facility] Foreign Body Lower back structure / Unknown 01/16/2025 4:14 PM EST 01/16/2025 5:10 PM EST Comment:Pre-op diagnosis: MRSA bacteremia [R78.81, B95.62] Fransisco Gaston MD LAB MICROBIOLOGY - G ENERAL ORDERABLES Final Result Performing Organization Address City/[facility]/ZIP Co de Phone Number [facility] [address] [place] [address] * Fungal Culture, Routine (01/16/2025 4:05 PM EST) Culture No Fungal Growth at 1 Week 01/24/2025 6:48 AM EST [facility] Abscess Topography unknown / Unknown 01/16/2025 4:05 PM EST 01/16/2025 5:10 PM EST Cleve Deleon MD LAB MICROBIOLOGY - GENERAL OR DERABLES Final Result Performing Organization Address City/[facility]/ZIP Co de Phone Number [facility] [address] [place] [address] * (ABNORMAL) Abscess Culture and Gram Stain (01/16/2025 4:05 PM EST) Culture Light Growth 01/19/2025 5:17 PM EST [facility] Culture 1+ Biotype 1 Methicillin-Resista nt Staphylococcus aureus(AA) 01/19/2025 5:17 PM EST [facility] Comment: The organism value for this result has been updated. These results have been appended to the previously preliminary verified report. Edited result: Previously reported as Staphylococcus aureus on 01/18/2025 at 1547 EST. Staphylococcus aureus has been updated to reportable. Culture 1+ Biotype 2 Methicillin-Resista nt Staphylococcus aureus(AA) 01/19/2025 5:17 PM EST [facility] Comment: The organism value for this result has been updated. These results have been appended to the previously preliminary verified report. Edited result: Previously reported as Staphylococcus aureus on 01/18/2025 at 1547 EST. Staphylococcus aureus has been updated to reportable. Gram Stain Result Rare Gram positive cocci in pairs and chains(A) 01/19/2025 5:17 PM EST [facility] Gram Stain Result Numerous Polymorphonuclear leukocytes(A) 01/19/2025 5:17 PM EST [facility] Abscess Lower back structure [...] ENERAL ORDERABLES Final Result Performing Organization Address City/[facility]/ZIP Co de Phone Number [facility] [address] [place] [id number] * Anaerobic Culture (01/16/2025 4:05 PM EST) Pathologist [facility] Culture No anaerobes isolated 01/20/2025 2:57 PM EST [facility] Abscess Lower back structure / Unknown 01/16/2025 4:05 PM EST 01/16/2025 5:10 PM EST Comment:Pre-op diagnosis: MRSA bacteremia [R78.81, B95.62] us Fransisco Gaston MD LAB MICROBIOLOGY - G ENERAL ORDERABLES Final Result Performing Organization Address [facility] [place] [address] * (ABNORMAL) POCT glucose meter (01/16/2025 3:19 PM EST) Pathologist [facility] POCT Glucose 123(H) 74 - 99 mg/dL [...] 01/16/2025 3:20 PM EST [facility] Global Transportation Manager ID Kingsley Alarcon 01/16/2025 3:20 PM EST [facility] Device ID [id number] 01/16/2025 3:20 PM EST [facility] Specimen Type POC Capillary 01/16/2025 3:20 PM EST [facility] Blood Capillary blood specimen / Unknown 01/16/2025 3:19 PM EST 01/16/2025 3:20 PM EST us Cleve Deleon MD LAB POINT OF CARE TE ST DOCKED DEVICE UNSOLICITED RESULTS Final Result Performing Organization Address City/[facility] Co de Phone Number [facility] [address] [place] [address] * (ABNORMAL) POCT glucose meter (01/16/2025 11:52 AM EST) [facility] POCT Glucose 119(H) 74 - 99 mg/dL [...] 01/16/2025 11:53 AM EST [facility] Global Transportation Manager ID Amandeep Ward 01/16/2025 11:53 AM EST [facility] Device ID [id number] 01/16/2025 11:53 AM EST [facility] Specimen Type POC Capillary 01/16/2025 11:53 AM EST [facility] Blood Capillary blood specimen / Unknown 01/16/2025 11:52 AM EST 01/16/2025 11:53 AM EST Cleve Deleon MD LAB POINT OF CARE TE ST DOCKED DEVICE UNSOLICITED RESULTS Final Result Performing Organization Address [facility] Co de Phone Number [facility] [address] [place] [address] * (ABNORMAL) POCT glucose meter (01/16/2025 6:34 AM EST) [facility] POCT Glucose 142(H) 74 - 99 mg/dL [...] 01/16/2025 6:35 AM EST [facility] Global Transportation Manager ID Alice Garber 01/16/2025 6:35 AM EST [facility] Device ID [id number] 01/16/2025 6:35 AM EST [facility] Specimen Type POC Capillary 01/16/2025 6:35 AM EST [facility] Blood Capillary blood specimen / Unknown 01/16/2025 6:34 AM EST 01/16/2025 6:35 AM EST us Demar Jiménez MD LAB POINT OF CARE TE ST DOCKED DEVICE UNSOLICITED RESULTS Final Result [facility] [address] [place] [address] * (ABNORMAL) Urinalysis with reflex microscopic (Culture NOT Included) (01/16/2025 4:51 AM EST) Color, Urine Yellow LAB URINALYSIS - AUTOMATED METHOD 01/16/2025 5:13 AM [facility] Clarity, Urine Clear LAB URINALYSIS - AUTOMATED METHOD 01/16/2025 5:13 AM [facility] Spec [place], Urine 1.012 1.005 - 1.030 LAB URINALYSIS - AUTOMATED METHOD 01/16/2025 5:13 AM [facility] pH, Urine 6.0 5.0 - 8.0 LAB URINALYSIS - AUTOMATED METHOD 01/16/2025 5:13 AM [facility] Protein, Urine Negative Negative mg/dL LAB URINALYSIS - AUTOMATED METHOD 01/16/2025 5:13 AM [facility] Glucose, Urine >=1000(A) Negative mg/dL LAB URINALYSIS - AUTOMATED METHOD 01/16/2025 5:13 AM [facility] Ketones, Urine Negative Negative mg/dL LAB URINALYSIS - AUTOMATED METHOD 01/16/2025 5:13 AM [facility] Blood, Urine Negative Negative LAB URINALYSIS - AUTOMATED METHOD 01/16/2025 5:13 AM [facility] Bilirubin, Urine Negative Negative LAB URINALYSIS - AUTOMATED METHOD 01/16/2025 5:13 AM [facility] Urobilinogen, Urine 0.2 0.2 to 1.0 mg/dL LAB URINALYSIS - AUTOMATED METHOD 01/16/2025 5:13 AM [facility] Leukocytes, Urine Negative Negative LAB URINALYSIS - AUTOMATED METHOD 01/16/2025 5:13 AM EST [facility] Nitrite, Urine Negative Negative LAB URINALYSIS - AUTOMATED METHOD 01/16/2025 5:13 AM EST [facility] Urine Urine specimen obtained by clean catch procedure / Unknown Non-blood Collection / Unknown 01/16/2025 4:51 AM EST 01/16/2025 5:02 AM EST us Fransisco Gaston MD LAB URINE ORDERABLES Final Result Performing Organization Address City/[facility]/ZIP Co de Phone Number [facility] [address] [place] [address] * (ABNORMAL) POCT glucose meter (01/16/2025 1:34 AM EST) POCT Glucose 144(H) 74 - 99 mg/dL 01/16/2025 1:37 AM EST [facility] Comment:Accuracy of a glucos e [...] for testing. Comment 01/16/2025 1:37 AM EST [facility] Global Transportation Manager ID Alice aGrber 01/16/2025 1:37 AM EST [facility]ARE LAB Device ID [id number] 01/16/2025 1:37 AM EST [facility] Specimen Type POC Capillary 01/16/2025 1:37 AM EST [facility] Blood Capillary blood specimen / Unknown 01/16/2025 1:34 AM EST 01/16/2025 1:37 AM EST us Demar Jiménez MD LAB POINT OF CARE TE ST DOCKED DEVICE UNSOLICITED RESULTS Final Result Performing Organization Address City/[facility]/ZIP Co de Phone Number [facility] [address] [place] [address] * Blood Culture (Aerobic/Anaerobet Set) (01/16/2025 1:28 AM EST) Culture No growth at day 5 SADA 01/21/2025 4:02 AM EST [facility] Blood Structure of right hand / Unknown Venipuncture / Unknown 01/16/2025 1:28 AM EST 01/16/2025 3:52 AM EST Fransisco Gaston MD LAB MICROBIOLOGY - G ENERAL ORDERABLES Final Result Performing Organization Address City/[facility]/ZIP Co de Phone Number [facility] [address] [place] [address] * (ABNORMAL) Hemoglobin A1c (01/16/2025 12:36 AM EST) Hemoglobin A1c 7.8(H) <5.7 % 01/16/2025 10:21 AM EST [facility] Blood Venous blood specimen / Unknown Venipuncture / Unknown 01/16/2025 12:36 AM EST 01/16/2025 12:41 AM EST Narrative [facility] - 01/16/2025 10:21 AM EST HA1C Interpretive Data: Diagnosis of Diabetes: Diabetic > or = 6.5% Pre-diabetic 5.7 to 6.4% Non-diabetic < or = 5.6% Glycemic Targets for Type I and Type II Diabetics: Non- Adults <7.0% Adults <6.0% Children and Adolescents <7.5% Source: [employer]. Standards of medical care in diabetes,2017. Diabetes Care.2017:40 (suppl 1):S1-S135. us Naina Dubois APRN LAB BLOOD ORDERABLES Fi nal Result [facility] [address] [place] [address] * Phosphorus (01/16/2025 12:36 AM EST) Phosphorus, Plasma 2.7 2.5 - 4.5 mg/dL 01/16/2025 2:12 AM EST [facility] Blood Venous blood specimen / Unknown Venipuncture / Unknown 01/16/2025 12:36 AM EST 01/16/2025 12:41 AM EST Naina Dubois TIGHT BARREL INSPECTOR LAB BLOOD ORDERABLES Fi nal Result Performing Organization Address City/[facility]/ZIP Co de Phone Number [facility] [address] [place] [address] * (ABNORMAL) Magnesium (01/16/2025 12:36 AM EST) Magnesium, Plasma 1.7(L) 1.9 - 2.4 mg/dL 01/16/2025 2:12 AM EST [facility] Blood Venous blood specimen / Unknown Venipuncture / Unknown 01/16/2025 12:36 AM EST 01/16/2025 12:41 AM EST Naina Dubois TIGHT BARREL INSPECTOR LAB BLOOD ORDERABLES Fi nal Result Performing Organization Address City/[facility] Co de Phone Number [facility] [address] [place] [address] * (ABNORMAL) Procalcitonin (01/16/2025 12:36 AM EST) Procalcitonin, Plasma 0.09(H) <0.09 ng/mL 01/16/2025 2:12 AM EST [facility] Blood Venous blood specimen / Unknown Venipuncture / Unknown 01/16/2025 12:36 AM EST 01/16/2025 12:41 AM EST Narrative [facility] - 01/16/2025 2:12 AM [...] predict 28 day mortality risk. Please consult [email or web address] for more information. Test performed at [facility]. Naina Dubois APRN LAB BLOOD ORDERABLES Fi nal Result Performing Organization Address City/[facility]/ZIP Co de Phone Number [facility] [address] [place] [address] * (ABNORMAL) C-reactive protein (01/16/2025 12:36 AM EST) CRP, Plasma 108.5(H) <=8.0 mg/L 01/16/2025 1:14 AM EST [facility] Blood Venous blood specimen / Unknown Venipuncture / Unknown 01/16/2025 12:36 AM EST 01/16/2025 12:41 AM EST Narrative [facility] - 01/16/2025 1:14 AM EST This CRP test is appropriate for assessment of infection, systemic inflammation and/or tissue injury. To assess cardiovascular disease risk order high sensitivity CRP (CRPH). Fransisco Gaston MD LAB BLOOD ORDERABLES Final Result Performing Organization Address City/[facility] Co de Phone Number [facility] [address] [place] [address] * (ABNORMAL) Sedimentation Rate, Automated (01/16/2025 12:36 AM EST) Sedimentation Rate 96(H) <30 mm/hr 2024 12:58 AM EST [facility] Blood Venous blood specimen / Unknown Venipuncture / Unknown 01/16/2025 12:36 AM EST 01/16/2025 12:41 AM EST Fransisco Gaston MD LAB BLOOD ORDERABLES Final Result [facility] [address] [place] [address] * (ABNORMAL) CBC and Differential (01/16/2025 12:36 AM EST) WBC Count 9.75 3.70 - 10.30 10*3/uL LAB HEMATOLOGY METHOD 01/16/2025 12:50 AM EST [facility] RBC Count 2.94(L) 3.90 - 5.20 10*6/uL LAB HEMATOLOGY METHOD 01/16/2025 12:50 AM EST [facility] HGB 9.4(L) 11.2 - 15.7 g/dL LAB HEMATOLOGY METHOD 01/16/2025 12:50 AM EST [facility] HCT 28.1(L) 34.0 - 45.0 % LAB HEMATOLOGY METHOD 01/16/2025 12:50 AM EST [facility] Platelet Count 338 155 - 369 10*3/uL LAB HEMATOLOGY METHOD 01/16/2025 12:50 AM EST [facility] MCV 96 79 - 98 fL LAB HEMATOLOGY METHOD 01/16/2025 12:50 AM [facility] MCH 32.0 26.0 - 32.0 pg LAB HEMATOLOGY METHOD 01/16/2025 12:50 AM EST [facility] MCHC 33.5 30.7 - 35.5 g/dL LAB HEMATOLOGY METHOD 01/16/2025 12:50 AM [facility] RDW 14.2 11.5 - 14.5 % LAB HEMATOLOGY METHOD 01/16/2025 12:50 AM [facility] MPV 9.2 8.8 - 12.5 fL LAB HEMATOLOGY METHOD 01/16/2025 12:50 AM [facility] nRBC 0.0 <=0.0 per 100 WBCs LAB HEMATOLOGY METHOD 01/16/2025 12:50 AM EST [facility] Differential Type Automated LAB HEMATOLOGY METHOD 01/16/2025 12:50 AM [facility] Neutrophils % 75 % LAB HEMATOLOGY METHOD 01/16/2025 12:50 AM [facility] Lymphocytes % 11 % LAB HEMATOLOGY METHOD 01/16/2025 12:50 AM EST [facility] Monocytes % 10 % LAB HEMATOLOGY METHOD 01/16/2025 12:50 AM EST [facility] Eosinophils % 2 % LAB HEMATOLOGY METHOD 01/16/2025 12:50 AM EST [facility] Basophils % 0 % LAB HEMATOLOGY METHOD 01/16/2025 12:50 AM EST [facility] Immature Granulocytes % 2 % LAB HEMATOLOGY METHOD 01/16/2025 12:50 AM EST [facility] Neutrophils Absolute 7.38(H) 1.60 - 6.10 10*3/uL LAB HEMATOLOGY METHOD 01/16/2025 12:50 AM EST [facility] Lymphocytes Absolute 1.03(L) 1.20 - 3.90 10*3/uL LAB HEMATOLOGY METHOD 01/16/2025 12:50 AM EST [facility] Monocytes Absolute 0.94(H) 0.30 - 0.90 10*3/uL LAB HEMATOLOGY METHOD 01/16/2025 12:50 AM EST [facility] Eosinophils Absolute 0.22 0.00 - 0.50 10*3/uL LAB HEMATOLOGY METHOD 01/16/2025 12:50 AM EST [facility] Basophils Absolute 0.03 0.00 - 0.10 10*3/uL LAB HEMATOLOGY METHOD 01/16/2025 12:50 AM EST [facility] Immature Granulocytes Absolute 0.15(H) 0.00 - 0.06 10*3/uL LAB HEMATOLOGY METHOD 01/16/2025 12:50 AM EST [facility] Blood Venous blood specimen / Unknown Venipuncture / Unknown 01/16/2025 12:36 AM EST 01/16/2025 12:41 AM EST [facility] - 01/16/2025 12:50 AM EST Therapeutic decision making should be based on absolute values, rather than percentages. Fransisco Gaston MD LAB BLOOD ORDERABLES Final Result [facility] [address] [place] [address] * (ABNORMAL) Comprehensive Metabolic Panel, Plasma (01/16/2025 12:36 AM EST) Glucose, Plasma 141(H) 74 - 99 mg/dL 01/16/2025 1:14 AM EST [facility] BUN, Plasma 17 8 - 23 mg/dL 01/16/2025 1:14 AM EST [facility] Creatinine, Plasma 0.97 0.60 - 1.10 mg/dL 01/16/2025 1:14 AM EST [facility] BUN/Creatinine Ratio 18 01/16/2025 1:14 AM [facility] Sodium, Plasma 137 136 - 145 mmol/L 01/16/2025 1:14 AM [facility] Potassium, Plasma 4.1 3.6 - 4.9 mmol/L 01/16/2025 1:14 AM [facility] Chloride, Plasma 103 97 - 107 mmol/L 01/16/2025 1:14 AM [facility] CO2, Plasma 22 22 - 29 mmol/L 01/16/2025 1:14 AM [facility] Anion Gap 12 6 - 16 mmol/L 01/16/2025 1:14 AM [facility] Total Calcium, Plasma 9.0 8.9 - 10.2 mg/dL 01/16/2025 1:14 AM [facility] Total Protein 6.1(L) 6.3 - 7.9 g/dL 01/16/2025 1:14 AM [facility] Albumin, Plasma 2.9(L) 3.5 - 5.2 g/dL 01/16/2025 1:14 AM [facility] AST, Plasma 77(H) 10 - 35 U/L 01/16/2025 1:14 AM [facility] ALT, Plasma 54(H) 10 - 35 U/L 01/16/2025 1:14 AM [facility] Alkaline Phosphatase, Plasma 271(H) 46 - 142 U/L 01/16/2025 1:14 AM [facility] Total Bilirubin, Plasma 0.4 0.2 - 1.1 mg/dL 01/16/2025 1:14 AM [facility] eGFRcr 61.4 mL/min/1.7 3m*2 01/16/2025 1:14 AM [facility] Comment:Reported eGFRcr in m L/min/1.73m2 is based the CKD-EPI 2020 equation that does not use a race coefficient. Blood Venous blood specimen / Unknown Venipuncture / Unknown 01/16/2025 12:36 AM EST 01/16/2025 12:41 AM EST Fransisco Gaston MD LAB BLOOD ORDERABLES Final Result [facility] [address] [place] [address] * (ABNORMAL) APTT (01/16/2025 12:36 AM EST) aPTT 36(H) 25 - 35 sec LAB COAGULATION METHOD 01/16/2025 1:15 AM EST [facility] Blood Venous blood specimen / Unknown Venipuncture / Unknown 01/16/2025 12:36 AM EST 01/16/2025 12:41 AM EST us Fransisco Gaston MD LAB BLOOD ORDERABLES Final Result Performing Organization Address [facility] Co de Phone Number [facility] [address] [place] [address] * (ABNORMAL) Prothrombin Time/INR (01/16/2025 12:36 AM EST) Prothrombin Time 15.3(H) 12.0 - 14.3 sec LAB COAGULATION METHOD 01/16/2025 1:15 AM EST [facility] INR 1.2(H) 0.9 - 1.1 LAB COAGULATION METHOD 01/16/2025 1:15 AM EST [facility] Blood Venous blood specimen / Unknown Venipuncture / Unknown 01/16/2025 12:36 AM EST 01/16/2025 12:41 AM EST Narrative [facility] - 01/16/2025 1:15 AM EST OPTIMAL INR RANGES FOR PATIENT ON ORAL ANTICOAGULANT THERAPY Prevention of venous thromboembolism INR 2.0 to 3.0 In patients with heart disease: Atrial fibrillation INR 2.0 to 3.0 Valvular heart disease INR 2.0 to 3.0 Tissue heart valves INR 2.0 to 3.0 Mechanical prosthetic valves INR 2.5 to 3.5 Prevention of recurrent HI INR 2.5 to 3.5 us Fransisco Gaston MD LAB BLOOD ORDERABLES Final Result Performing Organization Address City/[facility]/ZIP Co de Phone Number [facility] [address] [place] [address] * Type and Screen (01/16/2025 12:36 AM [...] TEST ORDERABLES Final Result Performing Organization Address City/State/[facility] Co de Phone Number BLOOD BANK [address] documented in this encounter Visit Diagnoses [...] 8:53 AM EST 30 mg nystatin (Mycostatin) 744765 UNIT/GM powder 1 Application Topical, 2 times [...] - Provider: Ariadne Adame, RAI) nystatin (Mycostatin) [id number] UNIT/GM powder 1 Application Topical, 2 times [...] Fritz RN) 0820 (Given - Provider: Ariadne Aadme RN) sodium chloride 0.9 % flush 10 [...] Provider: Christina Fritz RN)1408 (Given - Provider: Felsia Whitlock RN) 0200 (Canceled Entry - Provider: [...] mL/hr, Routine 0306 (New Bag - Provider: Crhistina Fritz RN)0400 (Rate/Dose Verify - Provider: Christina [...] Provider: Christina Fritz RN)0506 (Restarted - Provider: Chirstina Fritz RN)0543 (Rate/Dose Verify - Provider: Christina [...] documented as of this encounter Care Teams Steamfitter Supervisor Relationship Specialty Start Date End Date Chase Gunn MD [id number] PCP - General 06/21/20 documented as of this encounter
--- OUTSIDE RECORDS SUMMARY | 2025-01-16 15:24 | XMS_ITS | Encounter Summary ---
Author Organization Healthcare Address [address] [place] [address] Care Team Providers Care Production Control Scheduler Name Role Phone Chase Gunn MD Primary Care Provider [phone] Reason for Visit * Auth/Cert (Routine) Specialty Diagnoses / Procedures Referred By Contac t Referred To Contact Diagnoses Sepsis (CMS/HCC) infected spinal cord stimulator, MRSA Demar Jiménez MD [address] [place] [address] Phone: tel: fax: P[facility] A Inpatient [address] [place] [address] Referral ID Status Reason Start Date Expiration Date Visits Re quested Visits Authorized [id number] 1 1 Encounter Details Date Type Department Care Team (Late st Contact Info) Description 01/16/2025 3:24 PM EST Anesthesia Event P[facility] A OPERATING ROOM [address] [place] [address] Diane Wong MD [address] [place] [address] Cony Braun APRN, EDVIN [address] [place] [address] Anesthesia Record Procedure Summary Procedure [...] by Cydney Valiente RN 01/18/25 1300 by Felsia Whitlock RN Urethral Catheter Placement Date: 01/16/25; [...] any time in the past 12 m [facility], were you homeless or living in a care home (including now)? No 01/16/2025 [facility] Utilities Answer Date Recorded In the past 12 months has e [employer], [employer], oil, or water [employer] threatened to shut off services in your home? No 01/16/2025 Comments Unknown Sex and Gender Information Value Date Recorded Sex Assigned at Not on file Legal Sex Female 6:06 PM EDT Gender Identity Not on file Sexual Orientation Not on file documented as of this encounter Mental Status * Resp Rate (Set) Answer Entry Date Author 8 01/16/2025 4:42 PM EST Interface , Device In * Pressure Support (cm H2O) Answer Entry Date Author 8 01/16/2025 5:05 PM EST Interface , Device In * Minute Ventilation Set (L/min) Answer Entry Date Author 1.1 01/16/2025 5:14 PM EST Interface , Device In * Insp Time (sec) Answer Entry Date Author 2.5 01/16/2025 4:42 PM EST Interface , Device In * Patient Category Range Answer Entry Date Author Adult 01/16/2025 5:15 PM EST Interface , Device In * Anesthesia Monitoring Question Answer Entry Date Author Temp 98.5 01/16/2025 5:11 PM EST Inter face, Device In * Assessment Question Answer Entry Date Author O2 Delivery Method Endotracheal tube 01/16/2025 3:34 P M EST Nani Nixon CRNA, DNP * iCO2 Answer Entry Date Author 0.4 01/16/2025 5:14 PM EST Interface , Device In documented in this encounter Miscellaneous Notes * [...] and Staff Patient location during procedure: OR TECHNICAL SOLUTION ARCHITECT: Nani Nixon CRNA, DNP Performed: TECHNICAL SOLUTION ARCHITECT Patient Condition Indications for airway management: anesthesia [...] REMOVAL/REVISION, ALL OTHER INDICATED PROCEDURES (Back) Location: [facility] [place] OR Surgeons: Fransisco Farley MD GISELLE Wray [...] Plan ASA 3 Plan was reviewed with: TECHNICAL SOLUTION ARCHITECT Anesthesia technique(s) discussed with the patient/family: general [...] Description 02/14/2025 1:00 PM EST Office Visit [facility] [address] [place] [address] Asher Sinha MD [address] [place] [id number] 03/27/2025 8:30 AM EST Consult [place] [facility] [address] [place] [address] Fransisco Farley MD [address] [place] [address] documented as of this encounter Procedures Procedure Name Priority Date/Time Associated Diagnosis Comments ANESTHESIA PERIPHERAL IV PLACEMENT Routine 01/16/2025 3:45 PM EST PB ANESTHESIA PLACEHOLDER Routine 01/16/2025 3:32 PM EST [place] AN ELECTIVE ENDOTRACHEAL AIRWAY Routine 01/16/2025 3:32 PM EST documented in this encounter Results * Peripheral IV (01/16/2025 3:45 PM EST) Narrative Nani Nixon CRNA, DNP - 01/16/2025 3:45 PM EST Nani Nixon CRNA, DNP 01/16/2025 4:59 PM Peripheral IV Date/Time: 01/16/2025 3:45 PM Placement Needle size: 18 G Location: hand Local anesthetic: none Site prep: alcohol Technique: anatomical landmarks Attempts: 1 Diane Wong MD ANESTHESIA ORDERABLES Final R esult * [place] AN ELECTIVE ENDOTRACHEAL AIRWAY, PB ANESTHESIA PLACEHOLDER (01/16/2025 3:32 PM EST) Narrative Nani Nixon CRNA, DNP - 01/16/2025 3:32 PM EST Nani Nixon CRNA, DNP 01/16/2025 3:54 PM Airway Date/Time: 01/16/2025 3:32 PM Reason: elective Airway not difficult General Information and Staff Patient location during procedure: OR TECHNICAL SOLUTION ARCHITECT: Nani Nixon CRNA, DNP Performed: TECHNICAL SOLUTION ARCHITECT Patient Condition Indications for airway management: anesthesia [...] (Decadron) injection Intravenous, As needed, Starting on Wed01/16/25 [...] infusion 100 mL/hr, Intravenous, Continuous, Starting on 01/16/25 at 0200, Until Wed01/16/25 at 1334, Routine New Bag 01/16/2025 3:24 PM EST Rate/Dose Verify 01/16/2025 1:00 PM EST 100 mL/ hr Rate/Dose Verify 01/16/2025 12:00 PM EST 100 mL /hr Lidocaine HCl prefilled syringe Buccal, As needed, Starting on 01/16/25 at 1529, Anesthesia Intraprocedure Given 01/16/2025 3:29 PM EST 60 mg ondansetron (Zofran) injection Intravenous, As needed, Starting on e 01/16/25 at 1545, Until Wed01/16/25 at 1718, Routine, Anesthesia Intraprocedure Given 01/16/2025 3:45 PM EST 4 mg propofol (Diprivan) injection Intravenous, As needed, Starting on e 01/16/25 at 1529, Until 01/16/25 at 1718, Routine, Anesthesia Intraprocedure Given 01/16/2025 5:05 PM EST 50 mg Given 01/16/2025 4:08 PM EST 20 mg Given 01/16/2025 3:29 PM EST 130 mg rocuronium (ZeMuron) injection Intravenous, As needed, Starting on e 01/16/25 at 1529, Until 01/16/25 at 1718, Routine, Anesthesia Intraprocedure Given 01/16/2025 4:08 PM EST 20 mg Given 01/16/2025 3:29 PM EST 50 mg sugammadex (Bridion) 100 MG/ML injection Intravenous, As needed, Starting on e 01/16/25 at 1705, Until 01/16/25 at 1718, Routine, Anesthesia Intraprocedure Given 01/16/2025 5:05 PM EST 200 mg documented in this encounter Additional Health Concerns Assessment Noted Time A Body Mass Index follow-up plan has been documented for the patient 01/23/2025 12:18 PM EST documented as of this encounter Care Teams Production Control Scheduler Relationship Specialty [place] [id number] PCP - General 06/21/20 documented as of this encounter
--- OUTSIDE RECORDS SUMMARY | 2025-01-31 15:30 | XMS_ITS | Encounter Summary ---
Author Organization Healthcare Address [address] [place] [address] Care Team Providers Care Personnel Clerks Supervisor Name Role Phone Chase Gunn MD Primary Care Provider [phone] Reason for Referral * Consultation (Routine) - Authorized Specialty Diagnoses / Procedures Referred By Contac t Referred To Contact Diagnoses MRSA bacteremia Asher Sinha MD [address] [place] [phone] Phone: tel: fax: Referral ID Status Reason Start Date Expiration Date V isits Requested Visits Authorized [id number] Authorized 01/31/2025 08/02/2026 1 1 Reason for Visit * Reason Comments MRSA Abscess Encounter Details Date Type Department Care Team (Late st Contact Info) Description 01/31/2025 3:30 PM EST Office Visit [address] [phone] Asher Sinha MD [address] [place] [phone] Infection of spinal cord stimulator, subsequent encounter (Primary Dx); MRSA bacteremia; Blood creatinine increased compared with prior measurement Social History Tobacco Use Types Packs/Day Years Used Date Smoking Tobacco: Never Passive Smoke Exposure: Past Smokeless Tobacco: Never Alcohol Use Standard Drinks/Week [...] any time in the past 12 m [facility], were you homeless or living in a group home (including now)? No 01/16/2025 [facility] Utilities Answer Date Recorded In the [...] Sign Reading Time Taken Comments Blood Pressure 138/75 01/31/2025 1:02 PM EST Pulse 73 01/31/2025 1:02 PM EST Temperature 37.1 C (98.8 F) 01/31/2025 1:02 PM EST Respiratory Rate 16 01/31/2025 1:02 PM EST Oxygen Saturation 96% 01/31/2025 1:02 PM EST RA Inhaled Oxygen Concentration - - Weight 90.3 kg (199 lb 1.2 oz) 01/31/2025 1:02 PM EST Height - - Body Mass Index 35.26 01/16/2025 3:05 PM EST documented in this encounter Functional Status * BP Answer Date of Assessment Author 138/75 01/31/2025 1:02 PM EST Cheyanne, L ee * Temp Answer Date of Assessment Author 98.8 01/31/2025 1:02 PM EST Langlade, L ee * Temp src Answer Date of Assessment Author Oral 01/31/2025 1:02 PM EST Langlade, L ee * Pulse Answer Date of Assessment Author 73 01/31/2025 1:02 PM EST Langlade, L ee * Resp Answer Date of Assessment Author 16 01/31/2025 1:02 PM EST Langlade, L ee * SpO2 Answer Date of Assessment Author 96 01/31/2025 1:02 PM EST Langlade, L ee * Weight Answer Date of Assessment Author 3185.21 01/31/2025 1:02 PM EST Langlade, L ee * Total Weight Change Percent Answer Date of Assessment Author 2222 01/31/2025 1:02 PM EST Langlade, L ee * Weight Change Since Preop Answer Date of Assessment Author 90.28 01/31/2025 1:02 PM EST Langlade, L ee * Weight Change Since Last Visit Answer Date of Assessment Author 90.28 01/31/2025 1:02 PM EST Langlade, L ee * Weight Change 24 hrs Answer Date of Assessment Author -6 01/31/2025 1:02 PM EST Langlade, L ee * BP Location Answer Date of Assessment Author Left arm 01/31/2025 1:02 PM EST Langlade, L ee * Restart Vitals Timer Answer Date of Assessment Author Yes 01/31/2025 1:02 PM EST Cheyanne, L ee * AUDIT-C Score Answer Date of Assessment Author 0 01/31/2025 1:02 PM EST Langlade, L ee * Alcohol Use Question Answer Date of Assessment Author Q1: How often do you have a drink containing alcohol? Never 01/31/2025 1:02 PM Jesus Torres Q2: How many drinks containing alcohol do you have on a typical day when you are drinking? Patient does not drink 01/31/2025 1:02 PM Jesus Torres Q3: How often do you have six or more drinks on one occasion? Never 01/31/2025 1:02 PM Jesus Torres * Weight Change Since Preop Answer Date of Assessment Author 90.3 01/31/2025 1:02 PM EST Cheyanne, L ee * Weight Change Since Last Visit Answer Date of Assessment Author 90.3 01/31/2025 1:02 PM EST Langlade, L ee * Difference in Weight Since Last Visit Answer Date of Assessment Author -6 01/31/2025 1:02 PM EST Cheyanne, L ee * Temp (in Celsius) for MASHPEE IV Answer Date of Assessment Author 37.1 01/31/2025 1:02 PM Robel Torres * Pain Score Answer Date of Assessment Author 0 01/31/2025 12:47 PM Jesus Torres * Vitals Timer Question Answer Date of Assessment Author Restart Vitals Timer Yes 01/31/2025 1:02 PM Jesus Morillo * Patient Position Answer Date of Assessment Author Sitting 01/31/2025 1:02 PM Robel Torres * Pain Screening/Additional Assessments Question Answer Date of Assessment Author Pain Screening/Assessments Pain Screening 01/31/2025 1 2:47 PM Jesus Torres * Pain Screening Answer Date of Assessment Author 0-10 01/31/2025 12:47 PM Jesus Torres * BP Answer Date of Assessment Author 138/75 01/31/2025 1:02 PM EST Cheyanne, L ee * Temp Answer Date of Assessment Author 98.8 01/31/2025 1:02 PM EST Cheyanne, L ee * Temp src Answer Date of Assessment Author Oral 01/31/2025 1:02 PM EST Langlade, L ee * Pulse Answer Date of Assessment Author 73 01/31/2025 1:02 PM EST Cheyanne, L ee * Resp Answer Date of Assessment Author 16 01/31/2025 1:02 PM EST Cheyanne, L ee * SpO2 Answer Date of Assessment Author 96 01/31/2025 1:02 PM EST Langlade, L ee * Weight Answer Date of Assessment Author 3185.21 01/31/2025 1:02 PM EST Langlade, L ee * BP Location Answer Date of Assessment Author Left arm 01/31/2025 1:02 PM EST Langlade, L ee * Restart Vitals Timer Answer Date of Assessment Author Yes 01/31/2025 1:02 PM EST Cheyanne, L ee * Pain Score Answer Date of Assessment Author 0 01/31/2025 12:47 PM Jesus Torres * Patient Position Answer Date of Assessment Author Sitting 01/31/2025 1:02 PM EST Langlade, L ee * Learning Needs Screening Question Answer Date of Assessment Author Are there things (barriers) that make it harder for this patient to learn? No Barriers 01/31/2025 1:01 PM Jesus Torres What is the best language to use for teaching this patient about his/her health? Yi 01/31/2025 1:01 PM Jesus Torres What format does this patien t think is most helpful for learning? Reading 01/31/2025 1:01 PM Magda Torres Primary Learner Patient 01/31/2025 1:01 PM Jesus Sanchez Ra * Readiness to Learn Question Answer Date of Assessment Author Readiness Acceptance 01/31/2025 1:01 PM Jesus Duque documented as of this encounter Mental Status * BP Answer Entry Date Author 138/75 01/31/2025 1:02 PM EST Cheyanne, L ee * Temp Answer Entry Date Author 98.8 01/31/2025 1:02 PM EST Cheyanne L ee * Temp src Answer Entry Date Author Oral 01/31/2025 1:02 PM EST Langlade, L ee * Pulse Answer Entry Date Author 73 01/31/2025 1:02 PM EST Cheyanne, L ee * Resp Answer Entry Date Author 16 01/31/2025 1:02 PM EST Cheyanne, L ee * SpO2 Answer Entry Date Author 96 01/31/2025 1:02 PM EST Cheyanne, L ee * Weight Answer Entry Date Author 3185.21 01/31/2025 1:02 PM EST Cheyanne, L ee * Total Weight Change Percent Answer Entry Date Author 2222 01/31/2025 1:02 PM EST Cheyanne, L ee * Weight Change Since Preop Answer Entry Date Author 90.28 01/31/2025 1:02 PM EST Cheyanne, L ee * Weight Change Since Last Visit Answer Entry Date Author 90.28 01/31/2025 1:02 PM EST Langlade, L ee * Weight Change 24 hrs Answer Entry Date Author -6 01/31/2025 1:02 PM EST Langlade, L ee * BP Location Answer Entry Date Author Left arm 01/31/2025 1:02 PM EST Langlade, L ee * Restart Vitals Timer Answer Entry Date Author Yes 01/31/2025 1:02 PM EST Langlade, L ee * Alcohol Use Concern Calculation Answer Entry Date Author 1 01/31/2025 1:02 PM EST Langlade, L ee * Skip to questions 9-10? Answer Entry Date Author 1 01/31/2025 1:02 PM EST Langlade, L ee * Restart Pain Assessment Timer Answer Entry Date Author Yes 01/31/2025 12:47 PM Jesus Torres * Weight Change Since Preop Answer Entry Date Author 90.3 01/31/2025 1:02 PM EST Cheyanne, L ee * Weight Change Since Last Visit Answer Entry Date Author 90.3 01/31/2025 1:02 PM EST Langlade, L ee * Difference in Weight Since Last Visit Answer Entry Date Author -6 01/31/2025 1:02 PM EST Langlade, L ee * Temp (in Celsius) for MASHPEE IV Answer Entry Date Author 37.1 01/31/2025 1:02 PM EST Cheyanne, L ee * Pain Score Answer Entry Date Author 0 01/31/2025 12:47 PM Jesus Torres * BP Cuff Size Answer Entry Date Author Large adult 01/31/2025 1:02 PM Robel Torres * Vitals Timer Question Answer Entry Date Author Restart Vitals Timer Yes 01/31/2025 1:02 PM Jesus Morillo * Patient Position Answer Entry Date Author Sitting 01/31/2025 1:02 PM Robel Torres * Pain Screening Answer Entry Date Author 0-10 01/31/2025 12:47 PM Jesus Torres documented in this encounter Miscellaneous Notes * Progress Notes - Asher Sinha MD - 01/31/2025 3:30 PM EST INFECTIOUS DISEASE HOSPITAL FOLLOW UP NOTE Patient Name: Rosa Wray [id number] female 74 y.o. Admission Dates: 01/15/2025-01/23/2025 Verbal consent was obtained to use ambient listening technology to assist in the documentation of the encounter: yes ANTIMICROBIAL REVIEW: Current: Vancomycin 1250mg IV q24h Prior: Vancomycin (PTD) from 01/16/2025-present; Cefepime 01/16-01/17; metronidazole 01/16-01/17 Blood cultures: 01/14/2025- MRSA ([facility]) 01/16/2025- NGTD 01/18/2025- NGTD First date of ABX (for 28d duration for complicated MRSA bacteremia = 01/16/2025) History of Present Illness The patient presents for follow-up from the hospital - MRSA infection of spinal cord stimulator s/premoval by NSGy on 01/16/2025 - cultures from [place] grew MRSA & cultures from blood prior to transfer grew MRSA though at all BCX were negative. She had a PICC placed at the [facility] as well on 01/15- it was removed 01/17 and cultures were negative so she had a new PICC placed 01/20. She reports persistent pain in her legs, which she is currently managing with physical therapy. Thepatient continues to take antibiotics, specifically vancomycin 1250 mg once a day, and has not yet received her dose today. Since her hospital discharge, she has not experienced any new symptoms suchas fever or chills. There have been no issues with her PICC line or any new pain or soreness at thesurgical site on her abdomen and back. She notes swelling in her feet, a symptom she has not previously encountered. Additionally, she recalls a brief episode of diarrhea a few days ago but reports no abdominal pain and maintains a good appetite. The patient has a history of right knee replacement and has experienced swelling in that leg. PAST SURGICAL HISTORY: Right knee replacement SOCIAL HISTORY Marital Status: Living Condition: Lives with REVIEW OF SYSTEMS: Review of Systems Constitutional: Negative for activity change, fatigue and fever. HENT: Negative for congestion and mouth sores. Eyes: Negative for visual disturbance. Respiratory: Negative for cough, chest tightness, shortness of breath and wheezing. Cardiovascular: Positive for leg swelling. Negative for chest pain and palpitations. Gastrointestinal: Negative for abdominal distention, abdominal pain, diarrhea, nausea and vomiting. Genitourinary: Negative for difficulty urinating, dysuria and hematuria. Musculoskeletal: Negative for arthralgias and myalgias. Skin: Negative for rash and wound. Neurological: Negative for dizziness and weakness. Hematological: Does not bruise/bleed easily. Psychiatric/Behavioral: Negative for confusion. All other systems reviewed and are negative. ALLERGIES: Allergies[1] VITAL SIGNS: Visit Vitals BP 138/75 (BP Location: Left arm, Patient Position: Sitting, BP Cuff Size: Large adult) Pulse 73 Temp 37.1 ??C (98.8 ??F) (Oral) Wt 90.3 kg (199 lb 1.2 oz) SpO2 96% Comment: RA BMI 35.26 kg/m?? PHYSICAL EXAM: Physical Exam Vitals and nursing note reviewed. Constitutional: General: She is not in acute distress. Appearance: Normal appearance. She is not toxic-appearing. Comments: In wheelchair HENT: Mouth/Throat: Lips: [place]. No lesions. Mouth: Mucous membranes are moist. Tongue: No lesions. Pharynx: No oropharyngeal exudate. Eyes: Pupils: Pupils are equal, round, and reactive to light. Cardiovascular: Rate and Rhythm: Normal rate and regular rhythm. Pulses: Normal pulses. Heart sounds: Normal heart sounds. No murmur heard. No friction rub. No gallop. Pulmonary: Effort: Pulmonary effort is normal. No respiratory distress. Breath sounds: Normal breath sounds. No rales. Abdominal: General: Bowel sounds are normal. There is no distension. Tenderness: There is no abdominal tenderness. There is no guarding or rebound. Musculoskeletal: General: No swelling or deformity. Normal range of motion. Cervical back: Normal range of motion. Right lower leg: Edema present. Left lower leg: Edema present. Comments: Wound L-spine healing well, c/d/I, no erythema, purulence, tenderness, induration Skin: General: Skin is warm and dry. Findings: No lesion or rash. Neurological: Mental Status: She is alert. Psychiatric: Mood and Affect: Mood normal. Behavior: Behavior normal. No images are attached to the encounter. LABS:. Office Visit on 01/31/2025 Component Date Value Ref Range Status Vancomycin, Random, Plasma 01/31/2025 14.9 ug/mL Final Glucose, Plasma 01/31/2025 177 (H) 74 - 99 mg/dL Final BUN, Plasma 01/31/2025 19 8 - 23 mg/dL Final Creatinine, Plasma 01/31/2025 1.15 (H) 0.60 - 1.10 mg/dL Final BUN/Creatinine Ratio 01/31/2025 17 Final Sodium, Plasma 01/31/2025 138 136 - 145 mmol/L Final Potassium, Plasma 01/31/2025 4.1 3.6 - 4.9 mmol/L Final Chloride, Plasma 01/31/2025 98 97 - 107 mmol/L Final CO2, Plasma 01/31/2025 27 22 - 29 mmol/L Final Anion Gap 01/31/2025 13 6 - 16 mmol/L Final Total Calcium, Plasma 01/31/2025 9.4 8.9 - 10.2 mg/dL Final Total Protein 01/31/2025 6.9 6.3 - 7.9 g/dL Final Albumin, Plasma 01/31/2025 3.8 3.5 - 5.2 g/dL Final AST, Plasma 01/31/2025 29 10 - 35 U/L Final ALT, Plasma 01/31/2025 24 10 - 35 U/L Final Alkaline Phosphatase, Plasma 01/31/2025 121 46 - 142 U/L Final Total Bilirubin, Plasma 01/31/2025 0.2 0.2 - 1.1 mg/dL Final eGFRcr 01/31/2025 50.1 mL/min/1.73m*2 Final Reported eGFRcr in mL/min/1.73m2 is based the CKD-EPI 2020 equation that does not use a race coefficient. WBC Count 01/31/2025 5.78 3.70 - 10.30 10*3/uL Final RBC Count 01/31/2025 3.46 (L) 3.90 - 5.20 10*6/uL Final HGB 01/31/2025 10.8 (L) 11.2 - 15.7 g/dL Final HCT 01/31/2025 34.3 34.0 - 45.0 % Final Platelet Count 01/31/2025 313 155 - 369 10*3/uL Final MCV 01/31/2025 99 (H) 79 - 98 fL Final MCH 01/31/2025 31.2 26.0 - 32.0 pg Final MCHC 01/31/2025 31.5 30.7 - 35.5 g/dL Final RDW 01/31/2025 14.6 (H) 11.5 - 14.5 % Final MPV 01/31/2025 9.8 8.8 - 12.5 fL Final nRBC 01/31/2025 0.0 <=0.0 per 100 WBCs Final Differential Type 01/31/2025 Automated Final Neutrophils % 01/31/2025 58 % Final Lymphocytes % 01/31/2025 23 % Final Monocytes % 01/31/2025 12 % Final Eosinophils % 01/31/2025 6 % Final Basophils % 01/31/2025 1 % Final Immature Granulocytes % 01/31/2025 0 % Final Neutrophils Absolute 01/31/2025 3.37 1.60 - 6.10 10*3/uL Final Lymphocytes Absolute 01/31/2025 1.33 1.20 - 3.90 10*3/uL Final Monocytes Absolute 01/31/2025 0.71 0.30 - 0.90 10*3/uL Final Eosinophils Absolute 01/31/2025 0.32 0.00 - 0.50 10*3/uL Final Basophils Absolute 01/31/2025 0.04 0.00 - 0.10 10*3/uL Final Immature Granulocytes Absolute 01/31/2025 0.01 0.00 - 0.06 10*3/uL Final ASSESSMENT/PLAN: Problem List Items Addressed This Visit None Visit Diagnoses Infection of spinal cord stimulator, subsequent encounter - Primary Relevant Medications cephalexin (Keflex) 500 MG capsule vancomycin (Vancocin) 250 MG capsule MRSA bacteremia Relevant Orders Follow Up ID Blood creatinine increased compared with prior measurement Assessment & Plan 1. Methicillin-resistant Staphylococcus aureus (MRSA) infection. The patient is undergoing treatment for a MRSA device infection and bacteremia, which necessitates an extended course of intravenous antibiotics and intensive laboratory monitoring to prevent complications of this potentially severe infection. The infection was identified in the spinal cord stimulator and bloodstream. The surgical team successfully removed the stimulator without any complicationson 01/16/2025, and there was no evidence of bone or spinal infection per NSGy at the time of surgery- however an extended course was chosen given bacteremia with multiple underlying health issues A slight increase in kidney function was noted on 01/29/2025, prompting a repeat of blood work today to monitor creatinine and vancomycin levels. The patient will continue on vancomycin 1250 mg once a day through 02/12/2025 to complete a full 4-week course of antibiotics. If the blood work results are normal, the current antibiotic regimen will be maintained. 2. Lower extremity edema. The patient reports new swelling in her feet, which she has not experienced before. This will be monitored, and further evaluation will be based on the results of the repeat blood work. Of note she is on pioglitazone (reviewed all records from [place]) but will also ensure all labwork today (GFR, etc.) is not contributing to leg edema from the perspective of her kidney function. Follow-up The patient is scheduled for a follow-up visit on 02/14/2025. Asher Sinha MD Infectious Diseases [1] Allergies Allergen Reactions Ozempic (0.25 Or 0.5 Mg-Dose) [Semaglutide(0.25 Or 0.5mg-Dos)] Vomiting Promethazine Other - please document in the comment field Sore mouth documented in this encounter Plan of Treatment Upcoming Encounters Date Type Department Care Team (Late st Contact Info) Description 02/14/2025 1:00 PM EST Office Visit [address] [phone] Asher Sinha MD [address] [facility] [address] [place] [id number] 03/27/2025 8:30 AM EST Consult [place] [facility] [address] [place] [address] Fransisco Farley MD [address] [place] [address] Scheduled Referrals Name Type Priority Associated Diagnoses Orde r Schedule Follow Up ID Outpatient Referral Routine MRSA bacteremia Expected: 02/14/2025, Expires: 03/03/2026 documented as of this encounter Procedures Procedure Name Priority Date/Time Associated Diagnosis Comments CBC WITH AUTO DIFFERENTIAL Routine 01/31/2025 12:57 PM EST MRSA bacteremia VANCOMYCIN, RANDOM, PLASMA Routine 01/31/2025 12:57 PM EST MRSA bacteremia COMPREHENSIVE METABOLIC PANEL, PLASMA Routine 01/31/2025 12:57 PM EST MRSA bacteremia documented in this encounter Results * (ABNORMAL) CBC and Differential (01/31/2025 12:57 PM EST) WBC Count 5.78 3.70 - 10.30 10*3/uL LAB HEMATOLOGY METHOD 01/31/2025 2:26 PM EST [facility] RBC Count 3.46(L) 3.90 - 5.20 10*6/uL LAB HEMATOLOGY METHOD 01/31/2025 2:26 PM EST [facility] HGB 10.8(L) 11.2 - 15.7 g/dL LAB HEMATOLOGY METHOD 01/31/2025 2:26 PM EST [facility] HCT 34.3 34.0 - 45.0 % LAB HEMATOLOGY METHOD 01/31/2025 2:26 PM EST [facility] Platelet Count 313 155 - 369 10*3/uL LAB HEMATOLOGY METHOD 01/31/2025 2:26 PM [facility] MCV 99(H) 79 - 98 fL LAB HEMATOLOGY METHOD 01/31/2025 2:26 PM [facility] MCH 31.2 26.0 - 32.0 pg LAB HEMATOLOGY METHOD 01/31/2025 2:26 PM [facility] MCHC 31.5 30.7 - 35.5 g/dL LAB HEMATOLOGY METHOD 01/31/2025 2:26 PM [facility] RDW 14.6(H) 11.5 - 14.5 % LAB HEMATOLOGY METHOD 01/31/2025 2:26 PM [facility] MPV 9.8 8.8 - 12.5 fL LAB HEMATOLOGY METHOD 01/31/2025 2:26 PM [facility] nRBC 0.0 <=0.0 per 100 WBCs LAB HEMATOLOGY METHOD 01/31/2025 2:26 PM [facility] Differential Type Automated LAB HEMATOLOGY METHOD 01/31/2025 2:26 PM [facility] Neutrophils % 58 % LAB HEMATOLOGY METHOD 01/31/2025 2:26 PM [facility] Lymphocytes % 23 % LAB HEMATOLOGY METHOD 01/31/2025 2:26 PM [facility] Monocytes % 12 % LAB HEMATOLOGY METHOD 01/31/2025 2:26 PM [facility] Eosinophils % 6 % LAB HEMATOLOGY METHOD 01/31/2025 2:26 PM [facility] Basophils % 1 % LAB HEMATOLOGY METHOD 01/31/2025 2:26 PM [facility] Immature Granulocytes % 0 % LAB HEMATOLOGY METHOD 01/31/2025 2:26 PM [facility] Neutrophils Absolute 3.37 1.60 - 6.10 10*3/uL LAB HEMATOLOGY METHOD 01/31/2025 2:26 PM [facility] Lymphocytes Absolute 1.33 1.20 - 3.90 10*3/uL LAB HEMATOLOGY METHOD 01/31/2025 2:26 PM [facility] Monocytes Absolute 0.71 0.30 - 0.90 10*3/uL LAB HEMATOLOGY METHOD 01/31/2025 2:26 PM [facility] Eosinophils Absolute 0.32 0.00 - 0.50 10*3/uL LAB HEMATOLOGY METHOD 01/31/2025 2:26 PM [facility] Basophils Absolute 0.04 0.00 - 0.10 10*3/uL LAB HEMATOLOGY METHOD 01/31/2025 2:26 PM EST [facility] Immature Granulocytes Absolute 0.01 0.00 - 0.06 10*3/uL LAB HEMATOLOGY METHOD 01/31/2025 2:26 PM EST [facility] Blood Venous blood specimen / Unknown Venipuncture / Unknown 01/31/2025 12:57 PM EST 01/31/2025 1:01 PM EST Narrative [facility] - 01/31/2025 2:26 PM EST Therapeutic decision making should be based on absolute values, rather than percentages. us Merlin Massey MD LAB BLOOD ORDERABLES Final Resul t [facility] [address] [place] [address] * (ABNORMAL) Comprehensive metabolic panel (01/31/2025 12:57 PM EST) Glucose, Plasma 177(H) 74 - 99 mg/dL 01/31/2025 2:32 PM EST [facility] BUN, Plasma 19 8 - 23 mg/dL 01/31/2025 2:32 PM EST [facility] Creatinine, Plasma 1.15(H) 0.60 - 1.10 mg/dL 01/31/2025 2:32 PM EST [facility] BUN/Creatinine Ratio 17 01/31/2025 2:32 PM EST [facility] Sodium, Plasma 138 136 - 145 mmol/L 01/31/2025 2:32 PM EST [facility] Potassium, Plasma 4.1 3.6 - 4.9 mmol/L 01/31/2025 2:32 PM EST [facility] Chloride, Plasma 98 97 - 107 mmol/L 01/31/2025 2:32 PM EST [facility] CO2, Plasma 27 22 - 29 mmol/L 01/31/2025 2:32 PM EST [facility] Anion Gap 13 6 - 16 mmol/L 01/31/2025 2:32 PM EST [facility] Total Calcium, Plasma 9.4 8.9 - 10.2 mg/dL 01/31/2025 2:32 PM EST [facility] Total Protein 6.9 6.3 - 7.9 g/dL 01/31/2025 2:32 PM EST [facility] Albumin, Plasma 3.8 3.5 - 5.2 g/dL 01/31/2025 2:32 PM EST [facility] AST, Plasma 29 10 - 35 U/L 01/31/2025 2:32 PM EST [facility] ALT, Plasma 24 10 - 35 U/L 01/31/2025 2:32 PM EST [facility] Alkaline Phosphatase, Plasma 121 46 - 142 U/L 01/31/2025 2:32 PM EST [facility] Total Bilirubin, Plasma 0.2 0.2 - 1.1 mg/dL 01/31/2025 2:32 PM EST [facility] eGFRcr 50.1 mL/min/1.7 3m*2 01/31/2025 2:32 PM EST [facility] Comment:Reported eGFRcr in m L/min/1.73m2 is based the CKD-EPI 2020 equation that does not use a race coefficient. Blood Venous blood specimen / Unknown Venipuncture / Unknown 01/31/2025 12:57 PM EST 01/31/2025 1:01 PM EST us Merlin Massey MD LAB BLOOD ORDERABLES Final Resul t Performing Organization Address City/[facility]/ZIP Co de Phone Number [facility] [address] [place] [address] * Vancomycin, random (01/31/2025 12:57 PM EST) Vancomycin, Random, Plasma 14.9 ug/mL 01/31/2025 2:32 PM EST [facility] Blood Venous blood specimen / Unknown Venipuncture / Unknown 01/31/2025 12:57 PM EST 01/31/2025 1:01 PM EST us Merlin Massey MD LAB BLOOD ORDERABLES Final Resul t Performing Organization Address City/[facility]/ZIP Co de Phone Number [facility] [address] [place] [address] documented in this encounter Visit Diagnoses Diagnosis Infection of spinal cord stimulator, subsequent encounter- Primary MRSA bacteremia Blood creatinine increased compared with prior measurement documented in this encounter Additional Health Concerns Infection Onset Date Last Indicated Resolved Time MRSA 01/16/2025 01/16/2025 Assessment Noted Time A fall risk assessment has been complete d for the patient 01/31/2025 12:48 PM EST A Body Mass Index follow-up plan has been documented for the patient 01/31/2025 4:26 PM EST documented as of this encounter Care Teams Personnel Clerks Supervisor Relationship Specialty [place] [address] PCP - General 06/21/20 documented as of this encounter
--- OUTSIDE RECORDS SUMMARY | 2025-02-07 08:52 | XMS_ITS | Continuity of Care Document ---
Author Organization [facility] Address [address] [place] [address] [place] [address] Care Team Providers Care [place] Actor Name Role Phone DARIELA LOCKETT Primary Care Provider [phone] Assessment Encounter Date Assessment Date Assessment LastModified [...] urinalysis panel, auto 2024 025 [email or web address] 14 [facility]ly [facility], [address] [place] [address] , [address], [place], [address], 15:56:20 Referral None recorded. Procedures None recorded. Surgeries cystourethr oscopy, with injections for chemodenerv ation of the bladder (SURG) 2024 025 [email or web address] [facility], [address] [facility], [facility] [address], [place], [address], 08:45:02 Imaging None recorded. Medication Orders mirabegron ER 50 mg tablet,exte nded release 24 hr 2024 025 [facility], [address] [place], [address], 15:58:38 Patient TargetsNo targets recorded. Patient Instructions Encounter Date Encounter Id Patient Instructions Last Modified By Organization Details Last Modified Time 12/07/2024 [id number] - Continue takin g Gemtesa as prescribed. - Prepare for scheduled Botox injections for bladder management. - Monitor urinary symptoms and report any changes. [email or web address] Not available 12/07/2024 15:58:14 Reason for Referral None Reported. Results Created Date Observation Date Name Description Value Unit Range Abnormal Flag Note LastModifiedBy Organization Detail LastModifiedTime 12/08/1912/07/2024 urina lysis panel , auto Unknown Analyte Clean Catch Not Available [facility] With [address], [place], [address], 12/07/2024 15:54:20 12/08/19 25 12/07/2024 urina lysis panel , auto Unknown Analyte Yellow Not Available [facility] With [address], [place], [address], 12/07/2024 15:54:20 12/08/19 25 12/07/2024 urina lysis panel , auto Unknown Analyte Clear Not Available [facility] With [address], [place], [address], 12/07/2024 15:54:20 12/08/1912/07/2024 urina lysis panel , auto Unknown Analyte 1.015 Not Available [facility] With [address], [place], [address], 12/07/2024 15:54:20 12/08/19 25 12/07/2024 urina lysis panel , auto Unknown Analyte 1.003 - 1.030 Not Available [facility] With [address], [place], [address], 12/07/2024 15:54:20 12/08/19 25 12/07/2024 urina lysis panel , auto Unknown Analyte 6.0 Not Available [facility] With [address], [place], [address], 12/07/2024 15:54:20 12/08/19 25 12/07/2024 urina lysis panel , auto Unknown Analyte 5.0 - 8.0 Not Available [facility] With [address], [place], [address], 12/07/2024 15:54:20 12/08/19 25 12/07/2024 urina lysis panel , auto Unknown Analyte Negati ve Not Available [facility] With [address], [place], [address], 12/07/2024 15:54:20 12/08/19 25 12/07/2024 urina lysis panel , auto Unknown Analyte Negati ve Not Available [facility] With [address], [place], [address], 12/07/2024 15:54:20 12/08/19 25 12/07/2024 urina lysis panel , auto Unknown Analyte Negati ve Not Available [facility] With [address], [place], [address], 12/07/2024 15:54:20 12/08/19 25 12/07/2024 urina lysis panel , auto Unknown Analyte Negati ve Not Available [facility] With [address], [place], [address], 12/07/2024 15:54:20 12/08/19 25 12/07/2024 urina lysis panel , auto Unknown Analyte Negati ve Not Available [facility] With [address], [place], [address], 12/07/2024 15:54:20 12/08/19 25 12/07/2024 urina lysis panel , auto Unknown Analyte Negati ve Not Available [facility] With [address], [place], [address], 12/07/2024 15:54:20 12/08/19 25 12/07/2024 urina lysis panel , auto Unknown Analyte >1000 mg/dL Not Available [facility] With [address], [place], [address], 12/07/2024 15:54:20 12/08/19 25 12/07/2024 urina lysis panel , auto Unknown Analyte Normal Not Available [facility] With [address], [place], [address], 12/07/2024 15:54:20 12/08/19 25 12/07/2024 urina lysis panel , auto Unknown Analyte Negati ve Not Available [facility] With [address], [place], [address], 12/07/2024 15:54:20 12/08/19 25 12/07/2024 urina lysis panel , auto Unknown Analyte Negati ve Not Available [facility] With [facility] [address], [place], [address], 12/07/2024 15:54:20 12/08/19 25 12/07/2024 urina lysis panel , auto Unknown Analyte Normal Not Available [facility] With [facility] [address], [place], [address], 12/07/2024 15:54:20 12/08/19 25 12/07/2024 urina lysis panel , auto Unknown Analyte Normal Not Available [facility] With [address], [place], [address], 12/07/2024 15:54:20 12/08/19 25 12/07/2024 urina lysis panel , auto Unknown Analyte Negati ve Not Available [facility] With [address], [place], [address], 12/07/2024 15:54:20 12/08/19 25 12/07/2024 urina lysis panel , auto Unknown Analyte Negati ve Not Available [facility] With [address], [place], [address], 12/07/2024 15:54:20 12/08/19 25 12/07/2024 urina lysis panel , auto Unknown Analyte Negati ve Not Available [facility] With [address], [place], [address], 12/07/2024 15:54:20 12/08/1912/07/2024 urina lysis panel , auto Unknown Analyte Negati ve Not Available [facility] With [address], [place], [address], 12/07/2024 15:54:20 Result Notes None recorded. Problems Name Problem SNOMED Code Status Onset Date Resolution Date Notes Provider Name and Address Organization Details Recorded Time Overactive urinary bladder 499102937 Active 024 JOSE AMIN MD [address] [place] [address], [address] [place] [address] 15:59:10 Problem Notes None recorded. Procedures Surgical History Date Name Laterality Status Provider Name and Address Organization Details Recorded Time 07/11/19 25 arthroplasty of knee completed Murelene Dionicio [facility] 12/07/2024 15:54:02 cholecystectomy completed Anthony Richards [facility] 11/22/2023 14:47:43 Carpal tunnel surgery completed [facility] 11/22/2023 14:47:59 hernia repair completed [facility] 11/22/2023 14:48:23 biopsy completed [facility] 11/22/2023 14:48:59 Tubal Ligation completed [facility] 11/22/2023 14:49:07 procedure on finger completed [facility] 11/22/2023 14:49:32 Cerebral Aneurysm completed [facility] 11/22/2023 14:50:43 Imaging Results None recorded. Procedure Notes None recorded. Medical Equipment None Reported. Allergies Allergen ID Allergen Name Allergen Category Reaction Reaction Severity Criticality Documentation Date Start Date Code Code System Note Provider Name and Address Organization Details Recorded Time [id number] Ozempic medicatio n Not available Not available Not available 11/22/2023 Rx[facility] 14:43:39 Medications Name Sig Start Date Stop [...] Updated DateTime 12/07/2024 165.1 cm 32.4 kg/m2 03900.51 g Gerson Dionicio [facility] 12/07/2024 15:53:27 Social History Question Answer Notes LastModified by Organizat ion Details LastModified Time Tobacco Smoking Status Never Smoker Anthony brock, [facility] 11/22/2023 14:47:17 What Was The Date Of Your Most Recent Tobacco Screening? 06/15/2024 [email or web address] Information not available 06/15/2024 What Is Your Relationship Status? [email or web address] Information not available 11/22/2023 Has Tobacco Cessation Counseling Been Provided? No [email or web address] Information not available 11/22/2023 Sex: Unknown Functional Status Question Answer Note LastModified by Organizat ion Details LastModified Time Do you use any illicit or recreational drugs? No [email or web address] Information not available 11/22/2023 Do you or have you ever used any other forms of tobacco or nicotine? No [email or web address] Information not available 11/22/2023 What is your level of alcohol consumption? None [email or web address] Information not available 11/22/2023 Are you currently employed? No retired [email or web address] Information not available 11/22/2023 Mental Status None recorded. Family History Relationship Description Onset Age of this Age Resolved Age Notes LastModified by Organization Details LastModified Time Father No current problems or disability [email or web address] Not available 14:47:07 Mother No current problems or disability [email or web address] Not available 14:47:07 Medical History Condition Response Diabetes Y Anemia Y Arthritis Y Stroke Y Hypertension Y Gynecological HistoryNo gynecological history recorded. Obstetrics History GPAL:G 0 P 0 0 0 0 Immunizations Vaccine Type Date Status Note Provider Nam e and Address Organization Details Recorded Time Influenza, high-dose, trivalent, PF 7 completed Not Available [facility] 12/07/2024 15:51:40 Influenza, split virus, quadrivalent, PF [...] quadrivalent, PF 5 completed Not Available [facility] 12/07/2024 15:51:40 Pneumococcal conjugate PCV20, polysaccharide FOK302 conjugate, adjuvant, PF completed Not Available [facility] 12/07/2024 15:51:40 Past Encounters Encounter ID Performer Location Encounter Start Date Encounter Closed Date Diagnosis/Indication Diagnosis SNOMED-CT Code Diagnosis ICD10 Code Diagnosis IMO Codes Diagnosis Note [id number] JOSE AMIN MD [facility] [address] [facility],[address] [place] [address] 12/07/2024 15:50:47 12/07/2024 16:37:13 Overactive urinary bladder 819061953 N32.81 588043 - Continue current medication regimen with Gemtesa, although effectiven ess is limited. - Schedule for Botox injections to manage symptoms, as discussed. Urge incon tinence of urine 87854802 N39.41 132013 - Considerat ion of Botox injections for symptom management . Nocturia 411962558 R35.1 37643 - Monitor nocturia symptoms and adjust treatment plan as necessary. Health Concerns Section Related Observation LastModified by Organization Detai ls LastModified Time None Recorded Concern Status LastModified by Organization Details LastModified Time None Recorded Payers Encounter Date Sequence Insurance Name Policy Number Policy Batista Covered Member ID Batista Member ID Guarantor Name 12/07/2024 1 [place] Rosa Huston Kamala [id number] Rosa Huston Kamala 12/07/2024 2 [facility] [id number] [facility] [id number] [facility] Notes Date Note Type Note [...] note prior to signature. JOSE AMIN MD [address] [place] [address], [address], [facility] 12/18/2024 09:26:56 OBGyn Episode No OBEpisode recorded.
--- OUTSIDE RECORDS SUMMARY | 2025-02-07 08:52 | XMS_ITS | Clinical Summary ---
[facility] [address] [place] [address] Care Team Providers Care Interventional Technologist Name Role Phone Chase Gunn MD Primary Care Provider [phone] Allergies Active Allergy Reactions Criticality Noted Date [...] help finding or keeping work or a abyron b? Not on file 11/16/2022 Disabilities Answer [...] Completed 01/18/2025 Medical Devices Implanted Type Area Communications Program Manager Device Identifier Shelf Expiration Date Model / Serial / Lot Interstim Implant Coil Target 3d 3mm 6cm - [id number] Implanted:Qty: 1 on 05/03/2020 by Jerome Hays MD at [facility] Implant NASRA CARMELITA [id number] / / Coil Target Detach 360 Nikia 2mm 3cm - [id number] Implanted:Qty: 1 on 05/03/2020 by Jerome Hays MD at [facility] Implant NASRA CARMELITA [id number] / / Explanted Type Area Communications Program Manager Device Identifier Shelf Expiration Date Model / Serial / Lot Coil Axium Norwood 3d Sys 2.1dfo6oj - [id number] Explanted:Qty: 1 on 05/03/2020 at [facility] Implant [employer] [id number] / / Description:Did not detach t he coil Coil Axium Norwood 3d Sys 4mm 6cm - [id number] Explanted:Qty: 1 on 05/03/2020 at [facility] Implant EV3 A [employer] [id number] / / Description:Coil removed Coil Axium Prime 3d Xsft 3mm 4cm - [id number] Explanted:Qty: 1 on 05/03/2020 at [facility] Implant [employer] [id number] / / Description:Coil removedf Coil Axium Norwood 3d Sys 3x4mm - [id number] Explanted:Qty: 1 on 05/03/2020 at [facility] Implant EV3 A [employer] [id number] / / Description:Coil removed Procedures Procedure Name [...] Documents on File Type Date Recorded Patient 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
--- OUTSIDE RECORDS SUMMARY | 2025-02-07 08:52 | XMS_ITS | Encounter Summary ---
Author Organization Healthcare Address [address] [place] [address] Care Team Providers Care Project Development Director Name Role Phone Chase Gunn MD Primary Care Provider [phone] Encounter Details Date Type Department Care Team (Late st Contact Info) Description 02/06/2025 Clinical Support [facility] [address] [place] [address] Marci Whitt, PharmD [address] [facility] [address] [place] [address] Social History Tobacco Use Types [...] No 01/16/2025 Housing Stability Vital Sign Answer Ranjti e Recorded In the last 12 months, was t here a time when you were not able to pay the mortgage or rent on time? No 01/16/2025 In the past 12 months, how m any times have you moved where you were living? 0 01/16/2025 At any time in the past 12 m [facility], were you homeless or living in a care home (including now)? No 01/16/2025 [facility] Utilities Answer Date Recorded In the past 12 months has th e [employer], gas, oil, or water company threatened to shut off services in your home? No 01/16/2025 Comments Unknown Sex and Gender Information Value Date Recorded Sex Assigned at Not on file Legal Sex Female 6:06 PM EDT Gender Identity Not on file Sexual Orientation Not on file documented as of this encounter Miscellaneous Notes * Progress Notes - Marci Whitt, PharmD - 02/06/2025 3:00 PM EST Pharmacist/Pharmacokinetic OPAT Note Rosa Wray is a 74 y.o. female enrolled in the outpatient parenteral antimicrobial therapy (OPAT)program, managed through the [facility] ([facility]) at the [facility]. Ms. 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 Vancomycin level within the goal range of15 - 20 mcg/mL for trough based monitoring at facility. However, Scr appears to be trending upwardsthis week. OPAT team and provider are aware. Vancomycin dosing adjustments are being managed by facility pharmacy. Marci Whitt PharmD, [facility] Clinical Pharmacist Infectious Diseases, OPAT Available via [employer] Secure Chat documented in this encounter Plan of Treatment Upcoming Encounters Date Type Department Care Team (Late st Contact Info) Description 02/14/2025 1:00 PM EST Office Visit [facility] [address] [place] [address] Asher Sinha MD [address] [facility] [address] [place] [address] 03/27/2025 8:30 AM EST Consult [place] [facility] [address], [address] [place] [address] Fransisco Farley MD [address] [place] [address] documented as of this encounter Visit Diagnoses Not on filedocumented in this encounter Additional Health Concerns Infection Onset Date Last Indicated Resolved Time MRSA 01/16/2025 01/16/2025 Assessment Noted Time A fall risk assessment has been complete d for the patient 01/31/2025 12:48 PM EST A Body Mass Index follow-up plan has been documented for the patient 02/06/2025 3:08 PM EST documented as of this encounter Care Teams Project Development Director Relationship Specialty [place] [address] PCP - General 06/21/20 documented as of this encounter
[2025-02-07 08:54] LABS: Hematocrit 31.5 % (37.0-47.0); Hemoglobin 10.3 g/dL (12.2-16.2); Immature Granulocytes % 0 %; Mean Corpuscular HGB Conc 32.7 g/dL (31.8-35.4); Mean Corpuscular Hemoglobin 31.9 pg (27.0-31.2); Mean Corpuscular Volume 97.5 fl (81-99); Nucleated Red Blood Cells % 0 %; Platelet Count 260 K/mm3 (142-424); Red Blood Count 3.23 M/mm3 (4.20-5.40); Red Cell Distribution Width-SD 51.5 fL; White Blood Count 4.3 K/mm3 (4.8-10.8)
--- OUTSIDE RECORDS SUMMARY | 2025-02-07 08:54 | XMS_ITS | Encounter Summary ---
Author Organization [facility] Address [address] [place] [address] Care Team Providers Care Interlocking Machine Operator Name Role Phone Chase Gunn MD Primary Care Provider [phone] Encounter Details Date Type Department Care Team [...] in a detention (including now)? No 01/16/2025 [facility] Utilities Answer Date Recorded In [...] Description 02/14/2025 1:00 PM EST Office Visit [facility] [address] [place] [address] Asher Sinha MD [address] [facility] [address] [place] [address] 03/27/2025 8:30 AM EST Consult [place] [facility] [address], [address] [place] [address] Fransisco Farley MD [address] [place] [address] documented as of this encounter Visit Diagnoses Not on filedocumented in this encounter Additional Health Concerns Assessment Noted Time A Body Mass Index follow-up plan has been documented for the patient 01/23/2025 12:18 PM EST documented as of this encounter Care Teams Interlocking Machine Operator Relationship Specialty [place] [address] PCP - General 06/21/20 documented as of this encounter
--- OUTSIDE RECORDS SUMMARY | 2025-02-07 08:54 | XMS_ITS | Encounter Summary ---
Author Organization [facility] Address [address] [place] [address] Care Team Providers Care Company Marker Name Role Phone Chase Gunn MD Primary Care Provider [phone] Encounter Details Date Type Department Care Team [...] any time in the past 12 m [facility], were you homeless or living in a fdc (including now)? No 01/16/2025 [facility] [...] 1:00 PM EST Office Visit [facility] [address] [place] [address] Asher Sinha MD [address] [facility] [address] [place] [phone] 03/27/2025 8:30 AM EST Consult [facility] [address] [place] [address] Fransisco Farley MD [address] [place] [address] documented as of this encounter Visit Diagnoses Not on filedocumented in this encounter Additional Health Concerns Infection Onset Date Last Indicated Resolved Time MRSA 01/16/2025 01/16/2025 Assessment Noted Time A Body Mass Index follow-up plan has been documented for the patient 01/23/2025 12:18 PM EST documented as of this encounter Care Teams Company Marker Relationship Specialty Start Date End Date Chase Gunn MD [phone] PCP - General 06/21/20 documented as of this encounter
--- OUTSIDE RECORDS SUMMARY | 2025-02-07 08:54 | XMS_ITS | Clinical Summary ---
Author Organization [facility] Address [address] [place] [address] Care Team Providers Care Return To Service Inspector Name Role Phone Chase Gunn MD Primary Care Provider [phone] Allergies Active Allergy Reactions Criticality Noted Date [...] at the same time. Active nystatin (Mycostatin) 142536 UNIT/ML suspension Active predniSONE (Deltasone) 20 MG [...] Encounters Date Type Department Care Team Description 02/06/2025 Clinical Support [address] [address] Marci Whitt, PharmD 01/31/2025 3:30 PM EST Office Visit [address] [address] Asher Sinha MD Infection of spinal cord stimulator, subsequent encounter (Primary Dx); MRSA bacteremia; Blood creatinine increased compared with prior measurement 01/31/2025 Clinical Support [address] [address] Pepe Sharp, PharmD 01/31/2025 Travel 01/31/2025 Results Follow-Up [address] [address] Asher Sinha MD 01/24/2025 Clinical Support [address] [address] Madelaine Guevara, PharmD 01/22/2025 Clinical Support [facility] [address] [place] [phone] Madelaine Guevara, PharmD 01/20/2025 Travel 01/17/2025 Travel 01/16/2025 3:24 PM EST Anesthesia Event [facility] [address] [place] [address] Diane Wong MD Carney Tinsley, Amanda S, APRN, DNP 01/16/2025 3:00 PM EST - 01/16/2025 5:10 PM EST Surgery [facility] [address] [place] [address] Fransisco Farley MD EXPLORATION, WOUND, POSSIBLE SCS REMOVAL/REVISION, ALL OTHER INDICATED PROCEDURES [ (CPT )] 01/16/2025 Travel 01/15/2025 9:57 PM EST - 01/23/2025 1:13 PM EST Hospital Encounter [facility] Inpatient [address] [place] [address] Fransisco Farley MD Arora, Ankit, MD Ramay, Tehreem K, MD Jose, Jemin A, MD MRSA bacteremia (Primary Dx); Postoperative sepsis (CMS/HCC) [T81.44XA]; Cellulitis of back except buttock Discharge Disposition: [facility] 01/15/2025 Travel 01/14/2025 Orders Only External Location [address] [place] [address] Provider, External 01/13/2025 Orders Only External Location [address] [place] [address] Provider, External 01/10/2025 Orders Only External Location [address] [place] [phone] Provider, External 01/10/2025 Orders Only External Location [address] [place] [phone] Provider, External 01/10/2025 Orders Only External Location [address] [place] [address] Provider, External 01/10/2025 Orders Only External Location [address] [place] [phone] Provider, External 01/10/2025 - 01/10/2025 11:[address] [facility] Hospital Encounter Image Record Center [address] [place] [id number] Examination Discharge Disposition: Home or Self Care [...] in a jail (including now)? No 01/16/2025 [facility] Utilities Answer Date Recorded In the [...] Description 02/14/2025 1:00 PM EST Office Visit [facility] [address] [facility] [place] [address] Asher Sinha MD [address] [place] [address] 03/27/2025 8:30 AM EST Consult [place] [facility] [address] [place] [address] Fransisco Farley MD [address] [place] [address] Health Maintenance Due Date Last [...] - Risk 50-74 years 1-dose series) 2000 [id number] Vaccine ( season) 2024 11/07/2020, 06/20/2020, 05/23/2020 [facility]-Diabetes: Hemoglobin A1C 04/17/2025 01/16/2025 [facility]- SDOH Screenings 07/17/2025 [facility]-Adult SDOH Screenings 07/17/2025 01/16/2025 [facility]-DTaP,Tdap,and Td Vaccines (2 - Td or Tdap) 04/07/2033 04/08/2023 [facility]-Influenza Vaccine Completed 11/22/2024 , 11/19/2017, 11/05/2016 [facility]-Pneumococcal Vaccine: 50+ Years Completed 12/04/2024 [facility]-Hepatitis C Screening Completed 01/18/2025 [facility]-Obesity Intervention Completed 025, 01/31/2025, 01/31/2025, Additional history exists HPV Vaccines (No Doses Required) Completed [facility]-HIB Vaccines Aged Out No longer e ligible based on patient's age to complete this topic [facility]-IPV Vaccines Aged Out No longer e ligible based on patient's age to complete this topic [facility]-Rotavirus Vaccines Aged Out No lo nger eligible based on patient's age to complete this topic Medical Devices Implanted Type 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 Coal 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 Device Identifier Shelf Expiration Date Model / Serial / Lot Interstim Bladder Stimulator-01/14 Implanted:01/14 (Quantity not on file) Bladder Stimulator Back Medtronic [id number] / [id number] / Stimulator Lead Medtronic-2017 Implanted:01/14 (Quantity not on file) Lead Back Medtronic [id number] / [id number] / Procedures Procedure Name Priority Date/Time Associated Diagnosis Comments VANCOMYCIN, RANDOM, PLASMA Routine 02/05/2025 CBC WITH AUTO DIFFERENTIAL Routine 02/05/2025 UREA NITROGEN, PLASMA Routine 02/05/2025 CREATININE, PLASMA Routine 02/05/2025 HEPATIC FUNCTION PANEL Routine 02/05/2025 CBC WITH AUTO DIFFERENTIAL Routine 01/31/2025 12:57 [...] ANESTHESIA PLACEHOLDER Routine 01/16/2025 3:32 PM EST ME AN ELECTIVE ENDOTRACHEAL AIRWAY Routine 01/16/2025 3:32 PM EST POCT GLUCOSE METER UNSOLICITED RESULTS Routine 01/16/2025 3:19 PM EST ME EXPLORE WOUND,ABDOMEN/FLANK/BA CK 01/16/2025 3:09 PM EST [...] from Last 3 Months Results * (ABNORMAL) Creatinine, Plasma (02/05/2025) Only the most recent of2 resultswithin the time period is included. External Creatinine Blood 1.50(A) 0.52 - 1.04 mg/dL Blood Venous blood specimen / Unknown 02/05/2025 Asher Sinha MD LAB BLOOD ORDERABLES F inal Result * (ABNORMAL) CBC and Differential (02/05/2025) Only the most recent of6 resultswithin the time period is included. External WBC 4.0(A) 4.8 - 10.8 K/mm3 External Red Blood Cell (RBC) 3.14(A) 4.20 - 5.40 M/mm3 External Hemoglobin (Hgb) 9.90(A) 12.20 - 16.20 g/dL External Platelet Count (Plt) 225 142 - 424 K/mm3 External Neutrophil Abs 1.7(A) 1.8 - 7.6 K/mm3 External Lymphocyte-Abso lute 1.0 0.7 - 4.5 K/mm3 External Eos-Absolute 0.5(A) 0.0 - 0.4 K/mm3 Blood Venous blood specimen / Unknown 02/05/2025 Asher Sinha MD LAB BLOOD ORDERABLES F inal Result * (ABNORMAL) Urea Nitrogen, Plasma (02/05/2025) Only the most recent of2 resultswithin the time period is included. External BUN 20(A) 7 - 17 mg/dL Blood Venous blood specimen / Unknown 02/05/2025 us Asher Sinha MD LAB BLOOD ORDERABLES F inal Result * Vancomycin, Random, Plasma (02/05/2025) Only the most recent of3 resultswithin the time period is included. External Vancomycin 17.0 ug/mL Blood Venous blood specimen / Unknown 02/05/2025 us Asher Sinha MD LAB BLOOD ORDERABLES F inal Result * Hepatic Function Panel (02/05/2025) Only the most recent of3 resultswithin the time period is included. External Alkaline Phosphatase 92 38 - 126 U/L External Bilirubin Total 0.4 0.2 - 1.3 mg/dL External ALT (SGPT) 19 12 - 70 U/L External AST (SGOT) 31 14 - 36 U/L Blood Venous blood specimen / Unknown 02/05/2025 us Asher Sinha MD LAB BLOOD ORDERABLES F inal Result * (ABNORMAL) Comprehensive metabolic panel (01/31/2025 12:57 PM EST) Only the most recent of2 resultswithin the time period is included. Pathologist [facility] Glucose, Plasma 177(H) 74 - 99 mg/dL 01/31/2025 2:32 PM EST [facility] BUN, Plasma 19 8 - 23 mg/dL 01/31/2025 2:32 PM EST [facility] Creatinine, Plasma 1.15(H) 0.60 - 1.10 mg/dL 01/31/2025 2:32 PM EST [facility] BUN/Creatinine Ratio 17 01/31/2025 2:32 PM EST [facility] Sodium, Plasma 138 136 - 145 mmol/L 01/31/2025 2:32 PM EST [facility] Potassium, Plasma 4.1 3.6 - 4.9 mmol/L 01/31/2025 2:32 PM EST [facility] Chloride, Plasma 98 97 - 107 mmol/L 01/31/2025 2:32 PM EST [facility] CO2, Plasma 27 22 - 29 mmol/L 01/31/2025 2:32 PM EST [facility] Anion Gap 13 6 - 16 mmol/L 01/31/2025 2:32 PM EST [facility] Total Calcium, Plasma 9.4 8.9 - 10.2 mg/dL 01/31/2025 2:32 PM EST [facility] Total Protein 6.9 6.3 - 7.9 g/dL 01/31/2025 2:32 PM EST [facility] Albumin, Plasma 3.8 3.5 - 5.2 g/dL 01/31/2025 2:32 PM EST [facility] AST, Plasma 29 10 - 35 U/L 01/31/2025 2:32 PM EST [facility] ALT, Plasma 24 10 - 35 U/L 01/31/2025 2:32 PM EST [facility] Alkaline Phosphatase, Plasma 121 46 - 142 U/L 01/31/2025 2:32 PM EST [facility] Total Bilirubin, Plasma 0.2 0.2 - 1.1 mg/dL 01/31/2025 2:32 PM EST [facility] eGFRcr 50.1 mL/min/1.7 3m*2 01/31/2025 2:32 PM EST [facility] Comment:Reported eGFRcr in m L/min/1.73m2 is based the CKD-EPI 2020 equation that does not use a race coefficient. Blood Venous blood specimen / Unknown Venipuncture / Unknown 01/31/2025 12:57 PM EST 01/31/2025 1:01 PM EST Merlin Massey MD LAB BLOOD ORDERABLES Final Resul t [facility] [address] [place] [address] * (ABNORMAL) POCT glucose meter (01/23/2025 8:18 AM EST) Only the most recent of32 resultswithin the time period is included. POCT Glucose 147(H) 74 - 99 mg/dL 01/23/2025 8:20 AM EST [facility] Comment:Accuracy of a glucos [...] Comment 01/23/2025 8:20 AM EST [facility] Soaking Pits Supervisor ID Benji Gilbert 01/23/2025 8:20 AM EST [facility] LAB Device ID [id number] 01/23/2025 8:20 AM EST [facility] Specimen Type POC Capillary 01/23/2025 8:20 AM EST [facility] Blood Capillary blood specimen / Unknown 01/23/2025 8:18 AM EST 01/23/2025 8:20 AM EST us Merlin Massey MD LAB POINT OF CARE TE ST DOCKED DEVICE UNSOLICITED RESULTS Final Result Performing Organization Address [facility] Co de Phone Number [facility] [address] [place] [address] * Vancomycin, Peak, Plasma Please draw ~2 [...] - 40.0 ug/mL 01/22/2025 7:07 AM EST [facility] Blood Venous blood specimen / Unknown Venipuncture / Unknown 01/22/2025 6:32 AM EST 01/22/2025 6:37 AM EST Narrative [facility] - 01/22/2025 7:07 AM EST Therapeutic Peak level: 20-40ug/mL Supra-therapeutic Peak level: >40 ug/mL us Cleve Deleon MD LAB BLOOD ORDERABLES Final Re sult Performing Organization Address City/[facility]/ZIP Co de Phone Number [facility] [address] [place] [address] * Vancomycin, Trough, Plasma Please draw ~30 [...] - 20.0 ug/mL 01/22/2025 3:45 AM EST [facility] Blood Venous blood specimen / Unknown Venipuncture / Unknown 01/22/2025 3:04 AM EST 01/22/2025 3:15 AM EST Narrative [facility] - 01/22/2025 3:45 AM EST Therapeutic Trough level: 10-20ug/mL Supra-therapeutic Trough level: >20 ug/mL us Cleve Deleon MD LAB BLOOD ORDERABLES Final Re sult [facility] [address] [place] [address] * XR Chest 1 View (01/20/2025 5:57 [...] Date/Time: 01/20/2025 5:08 PM Performed by: Cailin Ha, RN Authorized by: Cleve Deleon MD [place] Protocol: Verbal consent obtained?: Yes Written consent [...] preference. Patient position: Supine Catheter Lot #: [id number] Catheter u.s. revenue officer: [employer] Catheter placed: Single lumen Catheter size: 4 [...] ORDERABLES Final Re sult Performing Organization Address [facility] Co de Phone Number [facility] [address] [place] [address] * Urine Avery Panel (01/20/2025 11:02 AM EST) Extra Sent for Culture 01/20/2025 1:02 PM EST [facility] Urine Urine specimen obtained by clean catch procedure / Unknown Non-blood Collection / Unknown 01/20/2025 11:02 AM EST 01/20/2025 11:06 AM EST us Cleve Deleon MD LAB URINE ORDERABLES Final Re sult Performing Organization Address [facility] Co de Phone Number [facility] [address] [place] [address] * Urinalysis Microscopic Examination (01/20/2025 11:02 AM EST) Urine Urine specimen obtained by clean catch procedure / Unknown Non-blood Collection / Unknown 01/20/2025 11:02 AM EST 01/20/2025 11:06 AM EST us Cleve Deleon MD LAB URINE ORDERABLES Final Re sult [facility] [address] [place] [address] * (ABNORMAL) Urinalysis with reflex microscopic (Culture NOT Included) (01/20/2025 11:02 AM EST) Only the most recent of2 resultswithin the time period is included. Color, Urine Yellow LAB URINALYSIS - AUTOMATED METHOD 01/20/2025 11:24 AM EST [facility] Clarity, Urine Cloudy LAB URINALYSIS - AUTOMATED METHOD 01/20/2025 11:24 AM EST [facility] Spec [place], Urine 1.017 1.005 - 1.030 LAB URINALYSIS - AUTOMATED METHOD 01/20/2025 11:24 AM EST [facility] pH, Urine 6.5 5.0 - 8.0 LAB URINALYSIS - AUTOMATED METHOD 01/20/2025 11:24 AM EST [facility] Protein, Urine Trace(A) Negative mg/dL LAB URINALYSIS - AUTOMATED METHOD 01/20/2025 11:24 AM EST [facility] Glucose, Urine >=1000(A) Negative mg/dL LAB URINALYSIS - AUTOMATED METHOD 01/20/2025 11:24 AM EST [facility] Ketones, Urine Negative Negative mg/dL LAB URINALYSIS - AUTOMATED METHOD 01/20/2025 11:24 AM EST [facility] Blood, Urine Trace(A) Negative LAB URINALYSIS - AUTOMATED METHOD 01/20/2025 11:24 AM EST [facility] Bilirubin, Urine Negative Negative LAB URINALYSIS - AUTOMATED METHOD 01/20/2025 11:24 AM EST [facility] Urobilinogen, Urine 0.2 0.2 to 1.0 mg/dL LAB URINALYSIS - AUTOMATED METHOD 01/20/2025 11:24 AM EST [facility] Leukocytes, Urine Small(A) Negative LAB URINALYSIS - AUTOMATED METHOD 01/20/2025 11:24 AM EST [facility] Nitrite, Urine Negative Negative LAB URINALYSIS - AUTOMATED METHOD 01/20/2025 11:24 AM EST [facility] RBC, Urine 2 0 to 3 /HPF LAB URINALYSIS - AUTOMATED METHOD 01/20/2025 11:24 AM EST [facility] WBC, Urine >50(A) 0 to 5 /HPF LAB URINALYSIS - AUTOMATED METHOD 01/20/2025 11:24 AM EST [facility] Squamous Epithelial Cells 0 - 2 0 to 5 /HPF LAB URINALYSIS - AUTOMATED METHOD 01/20/2025 11:24 AM EST [facility] Hyaline Casts 3 - 5 0 to 5 /LPF LAB URINALYSIS - AUTOMATED METHOD 01/20/2025 11:24 AM EST [facility] Bacteria, Urine Negative Negative LAB URINALYSIS - AUTOMATED METHOD 01/20/2025 11:24 AM EST [facility] Yeast (Budding and/or Pseudohyphae) Present(A) Absent LAB URINALYSIS - AUTOMATED METHOD 01/20/2025 11:24 AM EST [facility] Urine Urine specimen obtained by clean catch procedure / Unknown Non-blood Collection / Unknown 01/20/2025 11:02 AM EST 01/20/2025 11:06 AM EST Cleve Deleon MD LAB URINE ORDERABLES Final Re sult Performing Organization Address City/State/[facility] Co de Phone Number [facility] [address] [place] [address] * (ABNORMAL) Urine Culture (01/20/2025 11:02 AM EST) Culture 10,000 - 100,000 CFU/mL Trista albicans(A) 01/22/2025 7:50 AM EST [facility] Comment:This isolate has bee n identified using the FDA Approved [employer] System Urine Urine specimen obtained by clean catch procedure / Unknown Non-blood Collection / Unknown 01/20/2025 11:02 AM EST 01/20/2025 11:06 AM EST us Cleve Deleon MD LAB MICROBIOLOGY - GENERAL OR DERABLES Final Result Performing Organization Address City/[facility]/ZIP Co de Phone Number [facility] [address] [place] [address] * (ABNORMAL) Creatine Kinase (CK), Total (01/20/2025 5:02 AM EST) Creatine Kinase, Plasma 290(H) 37 - 168 U/L 01/20/2025 5:37 AM EST [facility] Blood Venous blood specimen / Unknown Venipuncture / Unknown 01/20/2025 5:02 AM EST 01/20/2025 5:07 AM EST us Cleve Deleon MD LAB BLOOD ORDERABLES Final Re sult Performing Organization Address [facility]/ZIP Co de Phone Number [facility] [address] [place] [address] * (ABNORMAL) Basic metabolic panel (01/20/2025 5:02 AM EST) Only the most recent of3 resultswithin the time period is included. Glucose, Plasma 151(H) 74 - 99 mg/dL 01/20/2025 5:37 AM EST [facility] BUN, Plasma 12 8 - 23 mg/dL 01/20/2025 5:37 AM EST [facility] Creatinine, Plasma 0.79 0.60 - 1.10 mg/dL 01/20/2025 5:37 AM EST [facility] BUN/Creatinine Ratio 15 01/20/2025 5:37 AM EST [facility] Sodium, Plasma 139 136 - 145 mmol/L 01/20/2025 5:37 AM EST [facility] Potassium, Plasma 3.6 3.6 - 4.9 mmol/L 01/20/2025 5:37 AM EST [facility] Chloride, Plasma 102 97 - 107 mmol/L 01/20/2025 5:37 AM EST [facility] CO2, Plasma 28 22 - 29 mmol/L 01/20/2025 5:37 AM EST [facility] Anion Gap 9 6 - 16 mmol/L 01/20/2025 5:37 AM EST [facility] Total Calcium, Plasma 8.2(L) 8.9 - 10.2 mg/dL 01/20/2025 5:37 AM EST [facility] eGFRcr 78.6 mL/min/1.7 3m*2 01/20/2025 5:37 AM EST [facility] Comment:Reported eGFRcr in m L/min/1.73m2 is based the CKD-EPI 2020 equation that does not use a race coefficient. Blood Venous blood specimen / Unknown Venipuncture / Unknown 01/20/2025 5:02 AM EST 01/20/2025 5:07 AM EST us Cleve Deleon MD LAB BLOOD ORDERABLES Final Re sult Performing Organization Address City/[facility] Co de Phone Number [facility] [address] [place] [address] * Phosphorus (01/19/2025 6:05 AM EST) Only the most recent of4 resultswithin the time period is included. Phosphorus, Plasma 3.0 2.5 - 4.5 mg/dL 01/19/2025 6:40 AM EST [facility] Blood Venous blood specimen / Unknown Venipuncture / Unknown 01/19/2025 6:05 AM EST 01/19/2025 6:15 AM EST us Cleve Deleon MD LAB BLOOD ORDERABLES Final Re sult Performing Organization Address City/[facility]/ZIP Co de Phone Number [facility] [address] [place] [address] * Magnesium (01/19/2025 6:05 AM EST) Only the most recent of4 resultswithin the time period is included. Magnesium, Plasma 2.1 1.9 - 2.4 mg/dL 01/19/2025 6:40 AM EST [facility] Blood Venous blood specimen / Unknown Venipuncture / Unknown 01/19/2025 6:05 AM EST 01/19/2025 6:15 AM EST us Cleve Deleon MD LAB BLOOD ORDERABLES Final Re sult Performing Organization Address City/[facility] Co de Phone Number [facility] [address] [place] [address] * Blood Culture (Aerobic/Anaerobet Set) (01/18/2025 1:23 PM EST) Only the most recent of2 resultswithin the time period is included. Culture No growth at day 5 SADA 01/23/2025 2:02 PM EST [facility] Blood Venous blood specimen / Unknown Venipuncture / Unknown 01/18/2025 1:23 PM EST 01/18/2025 1:34 PM EST us Cleve Deleon MD LAB MICROBIOLOGY - GENERAL OR DERABLES Final Result Performing Organization Address [facility] [place] [address] * PERIPHERAL IV (SMARTFORM LINK) (01/18/2025 12:54 [...] Antibody Negative Negative 01/18/2025 5:53 AM EST [facility] Blood Blood sample taken from central line / Unknown Venipuncture / Unknown 01/18/2025 4:56 AM EST 01/18/2025 5:11 AM EST us Cleve Deleon MD LAB BLOOD ORDERABLES Final Re sult Performing Organization Address [facility] Co de Phone Number [facility] [address] [place] [address] * Hepatitis B Surface Antibody, Quantitative (01/17/2025 7:50 PM EST) Hepatitis B Surface Antibody, Quantitative <8.00 NonReactiv e: <8, Grayzone: 8 - <12, Reactive: >= 12 mIU/mL 01/17/2025 10:06 PM EST [facility] Comment: Nonreactive. Individual is considered not immune to HBV infection. Blood Arterial blood specimen / Unknown (Central Line) Existing Catheter / Unknown 01/17/2025 7:50 PM EST 01/17/2025 7:54 PM EST us Cleve Deleon MD LAB BLOOD ORDERABLES Final Re sult Performing Organization Address [facility] Co de Phone Number [facility] [address] [place] [address] * Hepatitis B Core Antibody IgM (01/17/2025 7:50 PM EST) Hepatitis B Core Antibody IgM Negative Negative 01/17/2025 10:06 PM EST [facility] Blood Arterial blood specimen / Unknown (Central Line) Existing Catheter / Unknown 01/17/2025 7:50 PM EST 01/17/2025 7:54 PM EST us Cleve Deleon MD LAB BLOOD ORDERABLES Final Re sult Performing Organization Address City/[facility]/ZIP Co de Phone Number [facility] [address] [place] [address] * Hepatitis B Core Total Antibody IgG,IgM (01/17/2025 7:50 PM EST) Pathologist [facility] Hepatitis B Core Total Antibody IgG,IgM Negative Negative 01/17/2025 10:06 PM EST [facility] Blood Arterial blood specimen / Unknown (Central Line) Existing Catheter / Unknown 01/17/2025 7:50 PM EST 01/17/2025 7:54 PM EST Cleve Deleon MD LAB BLOOD ORDERABLES Final Re sult Performing Organization Address City/[facility]/[place] [address] * Hepatitis B Surface Antigen (01/17/2025 7:50 PM EST) Pathologist [facility] Hepatitis B Surf Antigen Negative Negative 01/17/2025 10:06 PM EST [facility] Blood Arterial blood specimen / Unknown (Central Line) Existing Catheter / Unknown 01/17/2025 7:50 PM EST 01/17/2025 7:54 PM EST Cleve Deleon MD LAB BLOOD ORDERABLES Final Re sult Performing Organization Address [facility] [place] [address] * ECHO, ADULT TRANSTHORACIC COMPLETE (01/17/2025 11:55 AM EST) Pathologist [facility] BSA 2.07 m2 PINEDA ISCV LVIDd 45 mm PINEDA ISCV LVIDs 23 mm PINEDA ISCV IVSd 13 mm PINEDA ISCV LVPWd 13 mm PINEDA ISCV LV MASS(C)D 222 g PINEDA ISCV [facility] CV ECHO LV MASS INDEX 107 g/m2 [...] is no recent study available for direct [id number] comparison. Left Ventricle The left ventricle is [...] is no recent study available for direct [id number] comparison. us Cleve Deleon MD CV ECHO [...] Johana Coyne MD on 01/16/2025 8:04 PM Nainafady Dubois [employer]OM[employer]BI[employer] RENTAL REPRESENTATIVE IMG US PROCEDURES Final Result * FL [...] Culture Heavy Growth 01/19/2025 5:17 PM EST [facility] Culture 4+ Biotype 1 Methicillin-Resis tant Staphylococcus aureus(AA) 01/19/2025 5:17 PM EST [facility] Comment: For susceptibility results refer to: - [id number] Edited result: Previously reported as Staphylococcus aureus on 01/17/2025 at 1327 EST. Staphylococcus aureus has been updated to reportable. Culture 2+ Biotype 2 Methicillin-Resis tant Staphylococcus aureus(AA) 01/19/2025 5:17 PM EST [facility] Comment: For susceptibility results refer to: - [id number] Edited result: Previously reported as Staphylococcus aureus on 01/17/2025 at 1327 EST. Staphylococcus aureus has been updated to reportable. Foreign Body Lower back structure / Unknown 01/16/2025 4:14 PM EST 01/16/2025 5:10 PM EST Comment:Pre-op diagnosis: MRSA bacteremia [R78.81, B95.62] Fransisco Gaston MD LAB MICROBIOLOGY - G ENERAL ORDERABLES Final Result [facility] [address] [place] [address] * Anaerobic Culture (01/16/2025 4:14 PM EST) Only the most recent of2 resultswithin the time period is included. Culture No anaerobes isolated 01/20/2025 2:57 PM EST [facility] Foreign Body Lower back structure / Unknown 01/16/2025 4:14 PM EST 01/16/2025 5:10 PM EST Comment:Pre-op diagnosis: MRSA bacteremia [R78.81, B95.62] Fransisco Gaston MD LAB MICROBIOLOGY - G ENERAL ORDERABLES Final Result [facility] [address] [place] [address] * (ABNORMAL) Abscess Culture and Gram Stain (01/16/2025 4:05 PM EST) Culture Light Growth 01/19/2025 5:17 PM EST [facility] Culture 1+ Biotype 1 Methicillin-Resista nt Staphylococcus aureus(AA) 01/19/2025 5:17 PM EST [facility] Comment: The organism value for this result has been updated. These results have been appended to the previously preliminary verified report. Edited result: Previously reported as Staphylococcus aureus on 01/18/2025 at 1547 EST. Staphylococcus aureus has been updated to reportable. Culture 1+ Biotype 2 Methicillin-Resista nt Staphylococcus aureus(AA) 01/19/2025 5:17 PM EST [facility] Comment: The organism value for this result has been updated. These results have been appended to the previously preliminary verified report. Edited result: Previously reported as Staphylococcus aureus on 01/18/2025 at 1547 EST. Staphylococcus aureus has been updated to reportable. Gram Stain Result Rare Gram positive cocci in pairs and chains(A) 01/19/2025 5:17 PM EST [facility] Gram Stain Result Numerous Polymorphonuclear leukocytes(A) 01/19/2025 5:17 PM EST [facility] Abscess Lower back structure / [...] MICROBIOLOGY - G ENERAL ORDERABLES Final Result [facility] [address] [place] [address] * Fungal Culture, Routine (01/16/2025 4:05 PM EST) Culture No Fungal Growth at 1 Week 01/24/2025 6:48 AM EST [facility] Abscess Topography unknown / Unknown 01/16/2025 4:05 PM EST 01/16/2025 5:10 PM EST Cleve Deleon MD LAB MICROBIOLOGY - GENERAL OR DERABLES Final Result [facility] [address] [place] [address] * Peripheral IV (01/16/2025 3:45 PM EST) Narrative Nani Nixon CRNA, DNP - 01/16/2025 3:45 PM EST Nani Nixon CRNA, DNP 01/16/2025 4:59 PM Peripheral IV Date/Time: 01/16/2025 3:45 PM Placement Needle size: 18 G Location: hand Local anesthetic: none Site prep: alcohol Technique: anatomical landmarks Attempts: 1 Diane Wong MD ANESTHESIA ORDERABLES Final R esult * ME AN ELECTIVE ENDOTRACHEAL AIRWAY, PB ANESTHESIA PLACEHOLDER (01/16/2025 3:32 PM EST) Narrative Nani Nixon CRNA, DNP - 01/16/2025 3:32 PM EST Nani Nixon CRNA, DNP 01/16/2025 3:54 PM Airway Date/Time: 01/16/2025 3:32 PM Reason: elective Airway not difficult General Information and Staff Patient location during procedure: [place] CLINICAL MASSAGE THERAPIST: Nani Nixon CRNA, DNP Performed: VIN Patient [...] 0.09(H) <0.09 ng/mL 01/16/2025 2:12 AM EST [facility] Blood Venous blood specimen / Unknown Venipuncture / Unknown 01/16/2025 12:36 AM EST 01/16/2025 12:41 AM EST Narrative [facility] - 01/16/2025 2:12 AM EST [...] predict 28 day mortality risk. Please consult [email or web address] for more information. Test performed at [facility]. us Naina Dubois APRN LAB BLOOD ORDERABLES Fi nal Result [facility] [address] [place] [address] * (ABNORMAL) APTT (01/16/2025 12:36 AM EST) aPTT 36(H) 25 - 35 sec LAB COAGULATION METHOD 01/16/2025 1:15 AM EST [facility] Blood Venous blood specimen / Unknown Venipuncture / Unknown 01/16/2025 12:36 AM EST 01/16/2025 12:41 AM EST Fransisco Gaston MD LAB BLOOD ORDERABLES Final Result [facility] [address] [place] [address] * (ABNORMAL) Sedimentation Rate, Automated (01/16/2025 12:36 AM EST) Sedimentation Rate 96(H) <30 mm/hr 2024 12:58 AM EST [facility] Blood Venous blood specimen / Unknown Venipuncture / Unknown 01/16/2025 12:36 AM EST 01/16/2025 12:41 AM EST us Fransisco Gaston MD LAB BLOOD ORDERABLES Final Result Performing Organization Address [facility] Co de Phone Number [facility] [address] [place] [address] * (ABNORMAL) Prothrombin Time/INR (01/16/2025 12:36 AM EST) Pathologist [facility] Prothrombin Time 15.3(H) 12.0 - 14.3 sec LAB COAGULATION METHOD 01/16/2025 1:15 AM EST [facility] INR 1.2(H) 0.9 - 1.1 LAB COAGULATION METHOD 01/16/2025 1:15 AM EST [facility] Blood Venous blood specimen / Unknown Venipuncture / Unknown 01/16/2025 12:36 AM EST 01/16/2025 12:41 AM EST Narrative [facility] - 01/16/2025 1:15 AM EST OPTIMAL INR RANGES FOR PATIENT ON ORAL ANTICOAGULANT THERAPY Prevention of venous thromboembolism INR 2.0 to 3.0 In patients with heart disease: Atrial fibrillation INR 2.0 to 3.0 Valvular heart disease INR 2.0 to 3.0 Tissue heart valves INR 2.0 to 3.0 Mechanical prosthetic valves INR 2.5 to 3.5 Prevention of recurrent [place] INR 2.5 to 3.5 us Fransisco Gaston MD LAB BLOOD ORDERABLES Final Result Performing Organization Address [facility] [place] [phone] * Type and Screen (01/16/2025 12:36 AM [...] TEST ORDERABLES Final Result Performing Organization Address City/[facility]/ZIP Co de Phone Number BLOOD BANK [address] * (ABNORMAL) C-reactive protein (01/16/2025 12:36 AM EST) CRP, Plasma 108.5(H) <=8.0 mg/L 01/16/2025 1:14 AM EST [facility] Blood Venous blood specimen / Unknown Venipuncture / Unknown 01/16/2025 12:36 AM EST 01/16/2025 12:41 AM EST Narrative [facility] - 01/16/2025 1:14 AM EST This CRP test is appropriate for assessment of infection, systemic inflammation and/or tissue injury. To assess cardiovascular disease risk order high sensitivity CRP (CRPH). Fransisco Gaston MD LAB BLOOD ORDERABLES Final Result Performing Organization Address City/[facility]/ZIP Co de Phone Number [facility] [address] [place] [address] * (ABNORMAL) Hemoglobin A1c (01/16/2025 12:36 AM EST) Hemoglobin A1c 7.8(H) <5.7 % 01/16/2025 10:21 AM EST [facility] Blood Venous blood specimen / Unknown Venipuncture / Unknown 01/16/2025 12:36 AM EST 01/16/2025 12:41 AM EST Narrative [facility] - 01/16/2025 10:21 AM EST HA1C Interpretive Data: Diagnosis of Diabetes: Diabetic > or = 6.5% Pre-diabetic 5.7 to 6.4% Non-diabetic < or = 5.6% Glycemic Targets for Type I and Type II Diabetics: Non- Adults <7.0% Adults <6.0% Children and Adolescents <7.5% Source: [place] [employer]. Standards of medical care in diabetes,2017. Diabetes Care.2017:40 (suppl 1):S1-S135. us Naina Dubois APRN LAB BLOOD ORDERABLES Fi nal Result [facility] [address] [place] [address] * XR OUTSIDE IMAGES (01/14/2025) Only the [...] Last Indicated MRSA 01/16/2025 01/16/2025 Insurance MEDICARE ANTH Advance Directives * Full Code (Latest Code Status on File) Date Activated Date Inactivated Comments 01/16/2025 1:07 AM 01/23/2025 3:13 PM Question Answer Comments I have reviewed the capacity from the link above and, if needed, have updated to appropriate status: Yes Care Teams Return To Service Inspector Relationship Specialty [place] [id number] PCP - General 06/21/20
--- OUTSIDE RECORDS SUMMARY | 2025-02-07 08:54 | XMS_ITS | Encounter Summary ---
Author Organization [facility] Address [address] [place] [address] Care Team Providers Care Salesman/Owner Name Role Phone Chase Gunn MD Primary Care Provider [phone] Encounter Details Date Type Department Care Team [...] in a jail (including now)? No 01/16/[address] [facility] Utilities Answer Date Recorded In the [...] Description 02/14/2025 1:00 PM EST Office Visit [facility] [address] [place] [address] Asher Sinha MD [address] [facility] [address] [place] [address] 03/27/2025 8:30 AM EST [facility] [address] [place] [address] Fransisco Farley MD [address] [place] [address] documented as of this encounter Visit Diagnoses Not on filedocumented in this encounter Additional Health Concerns Assessment Noted Time A Body Mass Index follow-up plan has been documented for the patient 01/23/2025 12:18 PM EST documented as of this encounter Care Teams Salesman/Owner Relationship Specialty [place] [id number] PCP - General 06/21/20 documented as of this encounter
--- OUTSIDE RECORDS SUMMARY | 2025-02-07 08:54 | XMS_ITS | Encounter Summary ---
Author Organization Healthcare Address [address] [place] [address] Care Team Providers Care Metal And Plastic Heater Name Role Phone Chase Gunn MD Primary Care Provider [phone] Encounter Details Date Type Department Care Team (Late st Contact Info) Description 01/22/2025 Clinical Support [facility] [address] [place] [address] Madelaine Guevara, PharmD [address] [place], [place] [id number] Social History Tobacco Use Types Packs/Day Years [...] in the past 12 m [facility], were you homeless or living in a fpc (including now)? No 01/16/2025 [facility] Utilities Answer Date Recorded In the past [...] Description 02/14/2025 1:00 PM EST Office Visit [facility] [address] [place] [address] Asher Sinha MD [address] [facility] [address] [place] [address] 03/27/2025 8:30 AM EST Consult [place] [facility] [address] [place] [phone] Fransisco Farley MD [address] [facility] [address] [place] [address] documented as of this encounter Visit Diagnoses Not on filedocumented in this encounter Additional Health Concerns Infection Onset Date Last Indicated Resolved Time MRSA 01/16/2025 01/16/2025 Assessment Noted Time A Body Mass Index follow-up plan has been documented for the patient 01/22/2025 8:36 AM EST documented as of this encounter Care Teams Metal And Plastic Heater Relationship Specialty [place] [id number] PCP - General 06/21/20 documented as of this encounter
--- OUTSIDE RECORDS SUMMARY | 2025-02-07 08:55 | XMS_ITS | Encounter Summary ---
Author Organization Healthcare Address [address] [place] [address] Care Team Providers Care Import Coordination And Production Head Name Role Phone Chase Gunn MD Primary Care Provider [phone] Encounter Details Date Type Department Care Team (Late st Contact Info) Description 01/24/2025 Clinical Support [facility] [address] [place] [address] Madelaine Guevara, PharmD [address] [place], [place] [id number] Social History Tobacco Use Types Packs/Day Years [...] in a fci (including now)? No 01/16/2025 [facility] [...] Description 02/14/2025 1:00 PM EST Office Visit [facility] [address] [place] [address] Asher Sinha MD [address] [facility] [address] [place] [address] 03/27/2025 8:30 AM EST Consult [place] [facility] [address] [place] [phone] Fransisco Farley MD [address] [facility] [address] [place] [address] documented as of this encounter Visit Diagnoses Not on filedocumented in this encounter Additional Health Concerns Infection Onset Date Last Indicated Resolved Time MRSA 01/16/2025 01/16/2025 Assessment Noted Time A Body Mass Index follow-up plan has been documented for the patient 01/24/2025 8:12 AM EST documented as of this encounter Care Teams Import Coordination And Production Head Relationship Specialty [place] [id number] PCP - General 06/21/20 documented as of this encounter
--- OUTSIDE RECORDS SUMMARY | 2025-02-07 08:56 | XMS_ITS | Encounter Summary ---
Author Organization Healthcare Address [address] [place] [address] Care Team Providers Care Orderlies Teacher Name Role Phone Chase Gunn MD Primary Care Provider [phone] Encounter Details Date Type Department Care Team ([facility] st Contact Info) Description 01/10/2025 Orders Only External Location [address] [place] [address] Provider, External Social History Tobacco Use Types [...] any time in the past 12 m [facility], were you homeless or living in a penitentiary (including now)? No 01/16/2025 [facility] Utilities Answer Date Recorded In [...] Description 02/14/2025 1:00 PM EST Office Visit [facility] [address] [place] [address] Asher Sinha MD [address] [facility] [address] [place] [phone] 03/27/2025 8:30 AM EST Consult [place] [facility] [address] [place] [address] Fransisco Farley MD [address] [place] [address] documented as of this encounter Procedures Procedure Name Priority Date/Time Associated Diagnosis Comments CT MSK OUTSIDE IMAGES 01/10/2025 documented in this encounter Results * CT MSK OUTSIDE IMAGES (01/10/2025) Anatomical Region Laterality Modality Computed Tomogra phy 01/10/2025 us External Provider IMG CT PROCEDURES Final Result documented in this encounter Visit Diagnoses Not on filedocumented in this encounter Care Teams Orderlies Teacher Relationship Specialty [place] [id number] PCP - General 06/21/20 documented as of this encounter
--- OUTSIDE RECORDS SUMMARY | 2025-02-07 08:56 | XMS_ITS | Encounter Summary ---
Author Organization Healthcare Address [address] [place] [address] Care Team Providers Care Member Of The Legislative [employer] Name Role Phone Chase Gunn MD Primary Care Provider [phone] Encounter Details Date Type Department Care Team ([facility] st Contact Info) Description 01/13/2025 Orders Only External Location [address] [place] [address] Provider, External Social History Tobacco Use Types [...] in the past 12 m [facility], were you homeless or living in a fdc (including now)? No 01/16/2025 [facility] Utilities Answer Date Recorded In the [...] 02/14/2025 1:00 PM EST Office Visit [facility] [address] [place] [address] Asher Sinha MD [address] [facility] [address] [place] [address] 03/27/2025 8:30 AM EST Consult [place] [facility] [address] [place] [address] Fransisco Farley MD [address] [place] [address] documented as of this encounter Procedures Procedure Name Priority Date/Time Associated Diagnosis Comments CT NEURO OUTSIDE IMAGES 01/13/2025 documented in this encounter Results * CT NEURO OUTSIDE IMAGES (01/13/2025) Anatomical Region Laterality Modality Computed Tomogra phy 01/13/[address] PROCEDURES Final Result documented in this encounter Visit Diagnoses Not on filedocumented in this encounter Care Teams Member Of [employer] Relationship Specialty [place] [id number] PCP - General 06/21/20 documented as of this encounter
--- OUTSIDE RECORDS SUMMARY | 2025-02-07 08:56 | XMS_ITS | Patient Health Record ---
Author Organization [facility] Address [address] [id number] Care Team Providers Care Kaiwhakahaere Name Role Phone Chase Gunn Primary Care Provider Allergies Allergen (clinical drug ingredient) Drug/Non Drug Allergy documented on EMR Reaction Allergy Type Onset Date Status promethazine Promethazine sore mouth Drug Allergy Active Results Component Value Reference Range Notes P-Comprehensive Metabolic Pa torsten (CMP) Reviewed date:05/24/2024 11:29:48 AM Interpretation:glu 132, BUN 25, creat 1.24, eGFR 46 Performing Lab: Notes/Report: Test performed by [facility], [address] , [address], [place] [address] Deshawn Meade MD, Postage Machine Operator CLIA: [id number] Sodium 141 135-145 mmol/L Potassium 5.3 3.5-5.3 [...] Interpretation:7.8 Performing Lab: Notes/Report: Test performed by [facility] [address] [place] [address] Jose Vargas, [place] [address] Deshawn Meade MD, Postage Machine Operator CLIA: [id number] Hemoglobin A1C 7.8 <5.7 % The following HbA1c ranges recommended by the [place] [employer] (ADA) may be used as an aid in the diagnosis of diabetes mellitus. HbA1c Suggested Diagnosis >=6.5% Diabetic 5.7% - 6.4% Pre-Diabetic <5.7% Non-Diabetic P-Lipid Panel Reviewed date:05/24/2024 11:29:48 AM Interpretation: Normal Performing Lab: Notes/Report: Test performed by [facility] [address] [place] [address] Jose Vargas, [place] [address] Deshawn Meade MD, Postage Machine Operator CLIA: [id number] Cholesterol 144 <200 mg/dL Triglycerides 111 <150 [...] Normal Performing Lab: Notes/Report: Test performed by [facility] [address] [place] [address] , [place] [address] Deshawn Meade MD, Postage Machine Operator CLIA: [id number] TSH reflex to FT4 3.33 0.43-5.25 mU/L P-Microalbumin/Creatinine, R andom Urine Sample Reviewed date:05/24/2024 11:29:48 AM Interpretation: Normal Performing Lab: Notes/Report: Test performed by [facility] [address] [place] [address] , Jose C, [place] [address] Deshawn Meade MD, Postage Machine Operator CLIA: [id number] Albumin/Creatinine Ratio, Urine 4 0-30 ug/mg Microalbumin, Urine, Random 0.3 Creatinine, Urine 76.8 Estimated Average Glucose Reviewed date:05/24/2024 11:29:48 AM Interpretation:177 Performing Lab: Notes/Report: Test performed by [facility] [employer] [address] [place] [address] , [address], [place] [address] Deshawn Meade MD, Postage Machine Operator TOY: [id number] Estimated Average Glucose (eAG) 177 Estimated Average [...] 6.5 % CBC Fingerstick (in house) Reviewed date:07/12/2024 01:11:12 [...] AGRATIO 1.1 1.1-1.8 ALP 97 38-126 U/L CBC Fingerstick (in house) Reviewed date:02/23/2024 11:39:15 [...] 12:38:07 PM Interpretation:Negative Performing Lab: Notes/Report: Negative Urinalysis - Inhouse Reviewed date:05/05/2024 05:47:07 PM [...] Performing Lab: Notes/Report: VANCT 10.2 5.0-10.0 ug/mL H-BMP Reviewed date:01/15/2025 11:05:44 AM Interpretation: Performing [...] 148 74-100 mg/dl CA 9.1 8.4-10.2 mg/dl H-CBC Reviewed date:01/15/2025 11:05:44 AM Interpretation: Performing [...] 0.0 0-0.2 K/mm3 NRBC# 0 IG# 0.09 Bone density Reviewed date:11/27/2024 03:38:01 PM Interpretation:Normal, Improved Performing Lab: Notes/Report: Normal, Improved Reason For Referral Diagnosis 1 Nausea (R11.0) Diagnosis 2 Gastroesophageal ref lux disease without esophagitis (K21.9) Diagnosis 3 Pharyngeal dysphagia (R13.13) [facility] Referring Provider First Name Chase Referring Provider Last Name Luis A Referring Provider [facility] pavan Referred Provider DAYAN LYN Referred Provider Specialty Gastroentero logy General Notes Letitia Osei 10:57:47 AM > faxed to Dr. Lyn office, Letitia Osei 03/17/2024 2:01:41 PM > 04/11/2024 at 09:00am Referral Priority Routine Diagnosis 1 Other dysphagia (R13 .19) [facility] Referring Provider First Name Chase Referring Provider Last Name Luis A Referring Provider [facility] ctice Referred Provider ENT, . Referred Provider Specialty ENT General Notes Letitia Osei 2024 02:41:20 PM > faxed to [facility] ENT, Letitia Osei 01/05/2025 09:38:55 [...] (65yr and older) IM Intramuscular 11/22/2024 Administered Fluzone PF Quad (6-35 months) Unknown 11/19/2017 Administered Prevnar (PCV20) IM Intramuscular 12/04/2024 Administered Tetanus Tdap-Adacel (over 7yrs) Unknown 04/08/2023 Administered Problems Problem Type SNOMED Code ICD Code Onset Dates Problem Status W/U Status Risk Notes Problem Essential hypertension (57572475) Essential hypertension (I10) Active confirmed Problem Mixed anxiety and depressive disorder (704041734) Depression with anxiety (F41.8) Active confirmed Problem Body mass index 30+ - obesity (000236435) BMI 30.0-30.9,adult (Z68.30) Active confirmed Problem Overactive urinary bladder (disorder) (881052846) OAB (overactive bladder) (N32.81) Active confirmed Problem Mixed incontinence (966119574) Mixed incontinence (N39.46) Active confirmed Problem Chronic pain (65933821) Other chronic pain (G89.29) Active confirmed Problem Type II diabetes mellitus without complication (268220660) Type 2 diabetes mellitus without complication (E11.9) Active confirmed Problem Constipation (06301033) Constipation, unspecified constipation type (K59.00) Active confirmed Problem Gastroesophageal reflux disease without esophagitis (246169507) Gastroesophageal reflux disease without esophagitis (K21.9) Active confirmed Problem Low back pain (344962832) Bilateral low back pain without sciatica (M54.5) Active confirmed Problem 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) Active confirmed Problem Subacute vaginitis (49266665981463240) Subacute vaginitis (N76.1) Active confirmed Problem Soreness of tongue (54861104) Soreness of tongue (K14.6) Active confirmed Problem Type II diabetes mellitus without complication (516659369) Type 2 diabetes mellitus without complication, without long-term current use of insulin (E11.9) Active confirmed Problem Pharyngeal dysphagia (76893555887124) Pharyngeal dysphagia (R13.13) Active confirmed Problem Chronic anemia (664369875) Chronic anemia (D64.9) Active confirmed Problem Pure hypercholesterolemia (440436008) Pure hypercholesterolemia (E78.00) Active confirmed Problem Glossodynia (77401077) Tongue pain (K14.6) Active confirmed Problem Thyromegaly (1014523) Thyromegaly (E01.0) Active confirmed Problem Arthritis of right knee (8939401966263446) Arthritis of right knee (M17.11) Active confirmed Problem Allergic rhinitis (05258007) Allergic rhinitis, unspecified seasonality, unspecified trigger (J30.9) Active confirmed Problem Type II diabetes mellitus without complication (306743254) Type 2 diabetes mellitus without complication, unspecified whether nursing home insulin use (E11.9) Active confirmed Problem Chronic kidney disease stage 3B (disorder) (901866329) Stage 3b chronic kidney disease (N18.32) Active confirmed Problem Chronic kidney disease stage 3A (210927650) Stage 3a chronic kidney disease (N18.31) Active confirmed Problem Chronic kidney disease stage 3B (disorder) (437531562) Stage 3b chronic kidney disease (CKD) (N18.32) Active confirmed Problem Taste sense altered (970047483) Taste sense altered (R43.2) Active confirmed Problem Urinary incontinence (954326500) Urinary incontinence in female (R32) Active confirmed Vital Signs Heart Rate 80 /min 11/22/2024 Blood pressure diastolic 68 mm Hg 11/22/2024 Height 66.25 in 11/22/2024 Blood pressure systolic 120 mm Hg 11/22/2024 Weight 192.8 lbs 11/22/2024 BMI 30.88 kg/m2 11/22/2024 Encounters Encounter Location Date Provider Diagnosis [facility] [address] [facility] [address] [place], [place] [id number] 02/23/2024 Chase Rand Bronchitis J40 and N ausea R11.0 [facility] [address] [facility] [address] [place], [place] [id number] 03/14/2024 Chase Rand Nausea R11.0 ; Gastroesophageal reflux disease without esophagitis K21.9 ; Pharyngeal dysphagia R13.13 and Nausea and vomiting, unspecified vomiting type R11.2 [facility] [address] [facility] [address] [place] [id number] 04/03/2024 Chase Rand Persistent cough R05 .3 [facility] [address] [place] [id number] 04/21/2024 Chase Rand Tongue pain K14.6 [facility] [address] [place] [id number] 05/03/2024 Chase Rand Acute UTI N39.0 ; Dy suria R30.0 ; Chronic cough R05.3 and Gastroesophageal reflux disease without esophagitis K21.9 [facility] [address] [place] [id number] 05/23/2024 Chase Rand Type 2 diabetes sky itus without complication E11.9 ; Essential hypertension I10 ; Pure hypercholesterolemia E78.00 ; Stage 3a chronic kidney disease N18.31 ; Gastroesophageal reflux disease without esophagitis K21.9 ; Stage 3b chronic kidney disease N18.32 ; Chronic anemia D64.9 ; BMI 28.0-28.9,adult Z68.28 and Lumbar back pain M54.50 [facility] [address] [place] [id number] 06/21/2024 Chase Rand Pain in right knee M 25.561 ; Pre-op exam Z01.818 ; Arthritis of right knee M17.11 ; Type 2 diabetes mellitus without complication E11.9 ; Essential hypertension I10 ; Gastroesophageal reflux disease without esophagitis K21.9 ; Stage 3b chronic kidney disease N18.32 ; Chronic anemia D64.9 ; Mixed incontinence N39.46 and BMI 30.0-30.9,adult Z68.30 [facility] [address] [place] [id number] 07/11/2024 Chase Rand Persistent cough R05 .3 ; Gastroesophageal reflux disease without esophagitis K21.9 ; Essential hypertension I10 ; OAB (overactive bladder) N32.81 and BMI 30.0-30.9,adult Z68.30 [facility] [address] [place], [place] [id number] 09/07/2024 Chase Rand Herpes zoster withou t complication B02.9 and BMI 29.0-29.9,adult Z68.29 [facility] [address] [place], [place] [id number] 11/22/2024 Chase Rand Type 2 diabetes sky itus without complication E11.9 ; Essential hypertension I10 and Encounter for immunization Z23 [facility] [address] [place], [place] [id number] 12/04/2024 Chase Rand Encounter for immuni zation Z23 [facility] [address] [place], [place] [id number] 02/18/2024 Chase Rand Depression with anxi ety F41.8 [facility] [address] [place] [id number] 02/18/2024 Chase Rand [facility] [address] [place] [id number] 03/02/2024 Chase Rand Bronchitis J40 [facility] [address] [place] [id number] 03/13/2024 Chase Rand [facility] [address] [place] [id number] 03/31/2024 Chase Rand Bronchitis J40 [facility] [address] [place] [id number] 04/04/2024 Chase Rand [facility] [address] [place] [id number] 05/12/2024 Chase Rand [facility] [address] [place] [id number] 05/15/2024 Chase Rand Gastroesophageal ref lux disease without esophagitis K21.9 [facility] [address] [place] [id number] 05/19/2024 Chase Rand Depression with anxi ety F41.8 [facility] [address] [place] [id number] 05/24/2024 Chase Rand [facility] [address] [place] [id number] 06/02/2024 Chase Rand [facility] [address] [place] [id number] 07/11/2024 Chase Rand [facility] [address] [place] [id number] 07/24/2024 Chase Rand Screening for breast cancer Z12.39 [facility] [address] [place] [id number] 07/25/2024 Chase Rand [facility] [address] [place], [place] [id number] 08/16/2024 Chase Rand Depression with anxi ety F41.8 [facility] [address] [place] [id number] 09/18/2024 Chase Rand Encounter for screen ing for osteoporosis Z13.820 [facility] [address] [place] [id number] 10/19/2024 Chase Rand [facility] [address] [place] [id number] 11/21/2024 Chase Rand Depression with anxi ety F41.8 [facility] [address] [place] [id number] 12/27/2024 Chase Rand Other dysphagia R13. 19 [facility] [address] [place] [id number] 01/08/2025 Chase Rand [facility] [address] [place] [id number] 01/16/2025 Chase Rand Assessments Encounter Date Diagnosis (ICD Code) Assessment [...] Date MEDICARE PART B [address] [address] [place] [address] [id number] Rosa Wray Self - patient is the insured [facility] [employer] [address] [place] [address] [id number] Rosa Wray Self - patient is the insured Medical (General) History Medical History History ICD Code Type 2 Diabetes Hypertension Hyperlipidemia Anxiety and Depression GERD Bilateral Fibercystic Breast Allergic Rhinitis 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 Virk Low Back Pain, MRI 2009 Mitral Valve Prolapse Bilateral Knee Arthritis Chronic kidney disease anemia Surgical History Surgery Date(Month/Year) Cholecystectomy Bilateral Arterial Biopsy - Head - negat kaitlin 04/11/2020 Brain Anuerysm Removal - [place] - Cory 05/03/2020 EGD - 2021 Bladder stimulator 2018 colonoscopy - 2015, 2021, 2023 Total Right Knee replacement - Dr. West July 2024 Hospitalization History Reason Date(Month/Year) Brain Anuerysm 05/03-
--- OUTSIDE RECORDS SUMMARY | 2025-02-07 08:56 | XMS_ITS | Encounter Summary ---
Author Organization Healthcare Address [address] [place] [address] Care Team Providers Care Facility Operations Manager Name Role Phone Chase Gunn MD [...] time in the past 12 m [facility], were you homeless or living in a care home (including now)? No 01/16/2025 [facility] Utilities Answer Date Recorded In [...] Description 02/14/2025 1:00 PM EST Office Visit [facility] [address] [facility] [place] [address] Asher Sinha MD [address] [facility] [address] [place] [address] 03/27/2025 8:30 AM EST Consult [facility] [address] [place] [address] Fransisco Farley MD [address] [place] [address] documented as of this encounter [...] documented as of this encounter Care Teams Facility Operations Manager Relationship Specialty Start Date End Date Chase Gunn MD [id number] PCP - General 06/21/20 documented as of this encounter
--- OUTSIDE RECORDS SUMMARY | 2025-02-07 08:56 | XMS_ITS | Encounter Summary ---
Author Organization Healthcare Address [address] [id number] Care Team Providers Care Clinical Practitioner Name Role Phone Chase Gunn MD Primary Care Provider [phone] Encounter Details Date Type Department Care Team (Late st Contact Info) Description 01/31/[address] [facility] [address] [place] [phone] Pepe Sharp, PharmD [address] [place] [address] Social History Tobacco Use Types Packs/Day Years [...] any time in the past 12 m [facility], were you homeless or living in a fci (including now)? No 01/16/2025 [facility] Utilities Answer Date Recorded In [...] parenteral antimicrobial therapy (OPAT)program, managed through the [facility] at the [facility]. Ms. Wray is currently being treated [...] 02/14/2025 1:00 PM EST Office Visit [facility] [address] [place] [phone] Asher Sinha MD [address] [facility][1] [address] [place] [address] 03/27/2025 8:30 AM EST Consult [facility] [address] [place] [address] Fransisco Farley MD [address] [place] [address] documented as of this encounter [...] documented as of this encounter Care Teams Clinical Practitioner Relationship Specialty [place] [id number] PCP - General 06/21/20 documented as of this encounter
--- OUTSIDE RECORDS SUMMARY | 2025-02-07 08:56 | XMS_ITS | Encounter Summary ---
Author Organization Healthcare Address [address] [place] [address] Care Team Providers Care Section Maintainer Name Role Phone Chase Gunn MD Primary Care Provider [phone] Encounter Details Date Type Department Care Team ([facility] st Contact Info) Description 01/14/2025 Orders Only External Location [address] [place] [address] Provider, External Social History Tobacco Use Types [...] time in the past 12 m [facility], were you homeless or living in a intermediate (including now)? No 01/16/2025 [facility] Utilities Answer Date Recorded In [...] 02/14/2025 1:00 PM EST Office Visit [facility] [address] [place] [address] Asher Sinha MD [address] [facility] [address] [place] [address] 03/27/2025 8:30 AM EST Consult [facility] [address] [place] [address] Fransisco Farley MD [address] [place] [address] documented as of this encounter Procedures Procedure Name Priority Date/Time Associated Diagnosis Comments XR OUTSIDE IMAGES 01/14/2025 documented in this encounter Results * XR OUTSIDE IMAGES (01/14/2025) Anatomical Region Laterality Modality Radiographic Adriana ging 01/14/2025 us External Provider IMG XR PROCEDURES Final Result documented in this encounter Visit Diagnoses Not on filedocumented in this encounter Care Teams Section Maintainer Relationship Specialty Start Date End Date Chase Gunn MD [id number] PCP - General 06/21/20 documented as of this encounter
--- OUTSIDE RECORDS SUMMARY | 2025-02-07 08:56 | XMS_ITS | Encounter Summary ---
Author Organization Healthcare Address [address] [place] [address] Care Team Providers Care Sugar Cane Planting Equipment Operator Name Role Phone Chase Gunn MD Primary Care Provider [phone] Encounter Details Date Type Department Care Team ([facility] st Contact Info) Description 01/10/2025 Orders Only External Location [address] [place] [address] Provider, External Social History Tobacco Use Types [...] time in the past 12 m [facility], were you homeless or living in a penitentiary (including now)? No 01/16/2025 [facility] Utilities [...] 02/14/2025 1:00 PM EST Office Visit [facility] [address] [place] [address] Asher Sinha MD [address] [facility] [address] [place] [address] 03/27/2025 8:30 AM EST Consult [facility] [address] [place] [address] Fransisco Farley MD [address] [place] [address] documented as of this encounter Procedures Procedure Name Priority Date/Time Associated Diagnosis Comments CT THORACIC OUTSIDE IMAGES 01/10/2025 documented in this encounter Results * CT THORACIC OUTSIDE IMAGES (01/10/2025) Anatomical Region Laterality Modality Computed Tomogra phy 01/10/[address] PROCEDURES Final Result documented in this encounter Visit Diagnoses Not on filedocumented in this encounter Care Teams Sugar Cane Planting Equipment Operator Relationship Specialty [place] [id number] PCP - General 06/21/20 documented as of this encounter
--- OUTSIDE RECORDS SUMMARY | 2025-02-07 08:56 | XMS_ITS | Encounter Summary ---
Author Organization Healthcare Address [address] [place] [address] Care Team Providers Care Zinc Etcher Name Role Phone Chase Gunn MD Primary Care Provider [phone] Encounter Details Date Type Department Care Team ([facility] st Contact Info) Description 01/10/2025 Orders Only External Location [address] [place] [address] Provider, External Social History Tobacco Use Types [...] time in the past 12 m [facility], were you homeless or living in a longterm (including now)? No 01/16/2025 [facility] Utilities Answer Date Recorded In the [...] Description 02/14/2025 1:00 PM EST Office Visit [facility] [address] [place] [address] Asher Sinha MD [address] [facility] [address] [place] [address] 03/27/2025 8:30 AM EST Consult [place] [facility] [address], [address] [place] [address] Fransisco Farley MD [address] [place] [address] documented as of this encounter Procedures Procedure Name Priority Date/Time Associated Diagnosis Comments CT NEURO OUTSIDE IMAGES 01/10/2025 documented in this encounter Results * CT NEURO OUTSIDE IMAGES (01/10/2025) Anatomical Region Laterality Modality Computed Tomogra phy 01/10/[address] PROCEDURES Final Result documented in this encounter Visit Diagnoses Not on filedocumented in this encounter Care Teams Zinc Etcher Relationship Specialty [place] [id number] PCP - General 06/21/20 documented as of this encounter
--- OUTSIDE RECORDS SUMMARY | 2025-02-07 08:56 | XMS_ITS | Continuity of Care Document ---
Author Organization [facility], SURGERY SCHEDULE Address [address] [place] [address] Care Team Providers Care Cryptozoologist Name Role Phone DARIELA LOCKETT Primary Care Provider [phone] Assessment Encounter Date Assessment Date Assessment LastModified [...] one month for reevaluation of her symptoms. [email or web address] Not available 01/07/2025 10:20:24 Plan of Treatment [...] auto Unknown Analyte Clean Catch Not Available [facility] With [address] Jose [address], [place], [address], 12/07/2024 15:54:20 12/08/1912/07/2024 urina lysis panel , auto Unknown Analyte Yellow Not Available [address] Jose [address], [place], [address], 12/07/2024 15:54:20 12/08/19 25 12/07/2024 urina lysis panel , auto Unknown Analyte Clear Not Available [facility] With [address] Jose [address], [place], [address], 12/07/2024 15:54:20 12/08/19 25 12/07/2024 urina lysis panel , auto Unknown Analyte 1.015 Not Available [facility] With [address], [place], [address], 12/07/2024 15:54:20 12/08/19 25 12/07/2024 urina lysis panel , auto Unknown Analyte 1.003 - 1.030 Not Available [facility] With [address], [place], [address], 12/07/2024 15:54:20 12/08/19 25 12/07/2024 urina lysis panel , auto Unknown Analyte 6.0 Not Available [facility] With [address], [place], [address], 12/07/2024 15:54:20 12/08/19 25 12/07/2024 urina lysis panel , auto Unknown Analyte 5.0 - 8.0 Not Available [facility] With [address] Jose Davidson, [place], [address], 12/07/2024 15:54:20 12/08/19 25 12/07/2024 urina lysis panel , auto Unknown Analyte Negati ve Not Available [facility] With [address], [place], [address], 12/07/2024 15:54:20 12/08/19 25 12/07/2024 urina lysis panel , auto Unknown Analyte Negati ve Not Available [facility] With [address], [place], [address], 12/07/2024 15:54:20 12/08/19 25 12/07/2024 urina lysis panel , auto Unknown Analyte Negati ve Not Available [facility] With [address], [place], [address], 12/07/2024 15:54:20 12/08/19 25 12/07/2024 urina lysis panel , auto Unknown Analyte Negati ve Not Available [facility] With [address], [place], [address], 12/07/2024 15:54:20 12/08/19 25 12/07/2024 urina lysis panel , auto Unknown Analyte Negati ve Not Available [facility] With [place] [address], [place], [address], 12/07/2024 15:54:20 12/08/19 25 12/07/2024 urina lysis panel , auto Unknown Analyte Negati ve Not Available [facility] With [place], [place], [address], 12/07/2024 15:54:20 12/08/19 25 12/07/2024 urina lysis panel , auto Unknown Analyte >1000 mg/dL Not Available [facility] With [facility] [address], [place], [address], 12/07/2024 15:54:20 12/08/19 25 12/07/2024 urina lysis panel , auto Unknown Analyte Normal Not Available [facility] With [facility] [address], [place], [address], 12/07/2024 15:54:20 12/08/19 25 12/07/2024 urina lysis panel , auto Unknown Analyte Negati ve Not Available [facility] With [facility] [address], [place], [address], 12/07/2024 15:54:20 12/08/19 25 12/07/2024 urina lysis panel , auto Unknown Analyte Negati ve Not Available [facility] With [facility] [address], [place], [address], 12/07/2024 15:54:20 12/08/19 25 12/07/2024 urina lysis panel , auto Unknown Analyte Normal Not Available [facility] With [facility] [address], [place], [address], 12/07/2024 15:54:20 12/08/19 25 12/07/2024 urina lysis panel , auto Unknown Analyte Normal Not Available [facility] With [address] F, [place], [address], 12/07/2024 15:54:20 12/08/19 25 12/07/2024 urina lysis panel , auto Unknown Analyte Negati ve Not Available [facility] With [address] F, [place], [address], 12/07/2024 15:54:20 12/08/19 25 12/07/2024 urina lysis panel , auto Unknown Analyte Negati ve Not Available [facility] With [address] F, [place], [address], 12/07/2024 15:54:20 12/08/19 25 12/07/2024 urina lysis panel , auto Unknown Analyte Negati ve Not Available [facility] With [address] Jose [address], [place], [address], 12/07/2024 15:54:20 12/08/19 25 12/07/2024 urina lysis panel , auto Unknown Analyte Negati ve Not Available [facility] With [address], [place], [address], 12/07/2024 15:54:20 Result Notes None recorded. Problems Name Problem SNOMED Code Status Onset Date Resolution Date Notes Provider Name and Address Organization Details Recorded Time Overactive urinary bladder 633351071 Active 024 JOSE AMIN MD [address] [place] [address], [address] [place] [address] 15:59:10 Problem Notes None recorded. Procedures Surgical History Date Name Laterality Status Provider Name and Address Organization Details Recorded Time 07/11/19 25 arthroplasty of knee completed Murelene Dionicio [facility] 12/07/2024 15:54:02 cholecystectomy completed Anthony Richards [facility] 11/22/2023 14:47:43 Carpal tunnel surgery completed [facility] 11/22/2023 14:47:59 hernia repair completed [facility] 11/22/2023 14:48:23 biopsy completed [facility] 11/22/2023 14:48:59 Tubal Ligation completed [facility] 11/22/2023 14:49:07 procedure on finger completed [facility] 11/22/2023 14:49:32 Cerebral Aneurysm completed [facility] 11/22/2023 14:50:43 Imaging Results None recorded. Procedure Notes None recorded. Medical Equipment None Reported. Allergies Allergen ID Allergen Name Allergen Category Reaction Reaction Severity Criticality Documentation Date Start Date Code Code System Note Provider Name and Address Organization Details Recorded Time 228263 Ozempic medicatio n Not available Not available Not available 11/22/2023 RxNorm [facility] 14:43:39 Medications Name Sig Start Date Stop [...] Available Not Available pantoprazol e 40 mg tablet,lias yed release active Not Available Not Available [...] Tobacco Smoking Status Never Smoker Anthony Richards [facility] 11/22/2023 14:47:17 What Was The Date Of Your Most Recent Tobacco Screening? 06/15/2024 [email or web address] Information not available 06/15/2024 What Is Your Relationship Status? [email or web address] Information not available 11/22/2023 Has Tobacco Cessation Counseling Been Provided? No [email or web address] Information not available 11/22/2023 Sex: Unknown Functional Status Question Answer Note LastModified by Organizat ion Details LastModified Time Do you use any illicit or recreational drugs? No Information not available 11/22/2023 Do you or have you ever used any other forms of tobacco or nicotine? No Information not available 11/22/2023 What is your level of alcohol consumption? None [email or web address] Information not available 11/22/2023 Are you currently employed? No retired [email or web address] Information not available 11/22/2023 Mental Status None recorded. Family History Relationship Description Onset Age of this Age Resolved Age Notes LastModified by Organization Details LastModified Time Father No current problems or disability [email or web address] Not available 14:47:07 Mother No current problems or disability [email or web address] Not available 14:47:07 Medical History Condition Response Anemia Y Diabetes Y Arthritis Y Stroke Y Hypertension Y Gynecological HistoryNo gynecological history recorded. Obstetrics History GPAL:G 0 P 0 0 0 0 Immunizations Vaccine Type Date Status Note Provider Nam e and Address Organization Details Recorded Time Influenza, high-dose, trivalent, PF 7 completed Not Available [facility] 12/07/2024 15:51:40 Influenza, split virus, quadrivalent, PF 8 completed Not Available [facility] 12/07/2024 15:51:40 COVID-19, mRNA, LNP-S, PF, 100 mcg/0.5mL dose or 50 mcg/0.25mL dose 1 completed Not Available [facility] 12/07/2024 15:51:40 COVID-19, mRNA, LNP-S, PF, 100 mcg/0.5mL dose or 50 mcg/0.25mL dose 1 completed Not Available [facility] 12/07/2024 15:51:40 COVID-19, mRNA, LNP-S, PF, 100 mcg/0.5mL dose or 50 mcg/0.25mL dose 1 completed Not Available [facility] 12/07/2024 15:51:40 Tdap 4 completed Not Available [facility] 12/07/2024 15:51:40 Influenza, high-dose, quadrivalent, PF 5 completed Not Available [facility] 12/07/2024 15:51:40 Pneumococcal conjugate PCV20, polysaccharide [id number] conjugate, adjuvant, PF 5 completed Not Available [facility] 12/07/2024 15:51:40 Past Encounters Encounter ID Performer Location Encounter Start Date Encounter Closed Date Diagnosis/Indication Diagnosis SNOMED-CT Code Diagnosis ICD10 Code Diagnosis IMO Codes Diagnosis Note [id number] JOSE AMIN MD [facility] [address] [facility],[address] [place] [address] 12/07/2024 15:50:47 12/07/2024 16:37:13 Overactive urinary bladder 441722525 N32.81 466088 - Continue current medication regimen with Gemtesa, although effectiven ess is limited. - Schedule for Botox injections to manage symptoms, as discussed. Urge incon tinence of urine 69494087 N39.41 119084 - Considerat ion of Botox injections for symptom management . Nocturia 221711323 R35.1 20698 - Monitor nocturia symptoms and adjust treatment plan as necessary. [id number] JOSE AMIN MD SURGERY SCHEDULE [address] [place] [address] 01/02/2025 12:14:09 01/02/2025 12:14:53 Health Concerns Section Related Observation LastModified by Organization Detai ls LastModified Time None Recorded Concern Status LastModified by Organization Details LastModified Time None Recorded Payers Encounter Date Sequence Insurance Name Policy Number Policy Batista Covered Member ID Batista Member ID Guarantor Name 01/02/2025 1 [place] Rosa L Kamala [id number] Rosa L Kamala 01/02/2025 2 [place] [employer] [facility] [id number] Rosa Kamala [id number] Rosa L Kmaala OBGyn Episode No OBEpisode recorded.
--- OUTSIDE RECORDS SUMMARY | 2025-02-07 08:56 | XMS_ITS | Data Portability ---
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 [email or web address] Not available 12/30/2023 10:46:30 01/28/2024 01/28/2024 Switch [...] one month for reevaluation of her symptoms. [email or web address] Not available 01/07/2025 10:20:24 Plan of Treatment Reminders Order Date Submit Date Provider Last Modified By Organization Details Last Modified Time Details Appointments None recorded. Lab urinalysis panel, auto 2024 025 [email or web address] 14 [facility], [address], [address], [place], [address], 5 15:56:20 urinalysis panel, auto 2023 024 [email or web address] 14 [facility], [address], [address], [place], [address], 4 09:04:10 Referral None recorded. Procedures None recorded. Surgeries cystourethr oscopy, with injections for chemodenerv ation of the bladder (SURG) 2024 025 [email or web address], [address] [facility], [place], [address], 5 08:45:02 Imaging None recorded. Medication Orders mirabegron ER 50 mg tablet,exte nded release 24 hr 2024 025 CHRIS [facility], [address] [place], [address], 15:58:38 trospium 20 mg tablet 2024 025 CHRIS [facility], [address] [place], [address], 15:58:41 darifenacin ER 15 mg tablet,exte nded release 24 hr 2023 025 CHRIS Merinocar[facility], [address] [place], [address], 15:58:40 hydrocodone 7.5 mg-acetamin ophen 325 mg tablet 2023 024 CHRIS Merinocarmina [facility], [address] [place], [address], 10:50:21 Patient TargetsNo targets recorded. Patient Instructions Encounter Date Encounter Id Patient Instructions Last Modified By Organization Details Last Modified Time 06/15/2024 [id number] - Begin taking trazodone as directed. - Keep track of your symptoms and urine frequency. - If there is no improvement, consider Botox as discussed. - Return for follow-up to evaluate treatment progress. - Change pads as needed and monitor for any new symptoms. - Call if you experience any urgent issues or side effects. [email or web address] Not available 06/15/2024 15:54:03 12/07/2024 [id number] - Continue takin g Gemtesa as prescribed. [...] INDIC ATED color Yellow normal Not Available [facility] [address] [facility], [place], [address], 12/30/2023 11:06:58 12/30/19 24 12/30/2023 UA WITH CULTU RE IF INDIC ATED appearance Light turbid normal Not Available [facility] [address] [place] [address], [address], 12/30/2023 11:06:58 12/30/19 24 12/30/2023 UA WITH CULTU RE IF INDIC ATED glucose 1000 mg/dL normal abnormal Not Available [facility] [address] [place] [address], [address], 12/30/2023 11:06:58 12/30/19 24 12/30/2023 UA WITH CULTU RE IF INDIC ATED bilirubin Negati ve mg/dL negati ve normal Not Available [facility] [address] [place] [address], [address], 12/30/2023 11:06:58 12/30/19 24 12/30/2023 UA WITH CULTU RE IF INDIC ATED ketone Negati ve mg/dL negati ve normal Not Available [facility] [address] [place] [address], [address], 12/30/2023 11:06:58 12/30/19 24 12/30/2023 UA WITH CULTU RE IF INDIC ATED specific gravity 1.034 1.003- 1.035 normal Not Available [facility] [address] [place] [address], [address], 12/30/2023 11:06:58 12/30/19 24 12/30/2023 UA WITH CULTU RE IF INDIC ATED blood 10 /uL negati ve abnormal Not Available [facility] [address] [place] [address], [address], 12/30/2023 11:06:58 12/30/19 24 12/30/2023 UA WITH CULTU RE IF INDIC ATED pH 5 5.0 - 8.0 normal Not Available [facility] [address] [place] [address], [address], 12/30/2023 11:06:58 12/30/19 24 12/30/2023 UA WITH CULTU RE IF INDIC ATED protein Negati ve mg/dL negati ve normal Not Available [facility] [address] [place] [address], [address], 12/30/2023 11:06:58 12/30/19 24 12/30/2023 UA WITH CULTU RE IF INDIC ATED urobilinogen Normal mg/dL normal normal Not Available [facility] [address] [place] [address], [address], 12/30/2023 11:06:58 12/30/19 24 12/30/2023 UA WITH CULTU RE IF INDIC ATED nitrite Negati ve negati ve normal Not Available [facility] [address] [place] [address], [address], 12/30/2023 11:06:58 12/30/19 24 12/30/2023 UA WITH CULTU RE IF INDIC ATED leukocyte esterase Negati ve /uL negati ve normal Not Available [facility] [address] [place] [address], [address], 12/30/2023 11:06:58 12/30/19 24 12/30/2023 UA WITH CULTU RE IF INDIC ATED WBC, urine 10-20 0-5/hp f abnormal Not Available [facility] [address] [place] [address], [address], 12/30/2023 11:06:58 12/30/19 24 12/30/2023 UA WITH CULTU RE IF INDIC ATED RBC, urine 0-2 0-2/hp f normal Not Available [facility] [address] [place] [address], [address], 12/30/2023 11:06:58 12/30/19 24 12/30/2023 UA WITH CULTU RE IF INDIC ATED squamous epi. cells 0-5 0-5/hp f normal Not Available [facility] [address] [place], [address], 12/30/2023 11:06:58 12/30/19 24 12/30/2023 UA WITH CULTU RE IF INDIC ATED bacteria 4+ /hpf none seen abnormal Not Available [facility] [address] [place] [address], [address], 12/30/2023 11:06:58 12/30/19 24 12/30/2023 UA WITH CULTU RE IF INDIC ATED reflex culture see below normal Resul ts indic ate a urina ry tract infec tion. Cultu re added . Not Available [facility] [address] [place] [address], [address], 12/30/2023 11:06:58 12/30/19 24 12/30/2023 URINE CULTU RE klebsiella pneumoniae Organi sm: Klebsi ander pneumo niae Not Available [facility] [address] [place] [address], [address], 01/03/2024 10:02:59 12/30/19 24 01/03/2024 URINE CULTU RE urine culture abnormal ISOLA TE #1 COLON Y COUNT : > 100,0 00 CFU/M L Proba ble Gram Negat kaitlin Bacil angela; [place] tion In Progr ess. See [place] te Resul t(s) Below Klebs iella pneum oniae Not Available [facility] [address] [place] [address], [address], 01/03/2024 10:02:59 12/30/19 24 01/03/2024 URINE CULTU RE amox/K clav'ate(C) <=8/4 ug/mL susceptib le Not Available [facility] [address] [place] [address], [address], 01/03/2024 10:02:59 12/30/19 24 01/03/2024 URINE CULTU RE cefazolin <=2 ug/mL susceptib le Not Available [facility] [address] [place] [address], [address], 01/03/2024 10:02:59 12/30/19 24 01/03/2024 URINE CULTU RE ceftazidime <=1 ug/mL susceptib le Not Available [facility] [address] [place] [address], [address], 01/03/2024 10:02:59 12/30/19 24 01/03/2024 URINE CULTU RE ceftriaxone <=1 ug/mL susceptib le Not Available [facility] [address] [place] [address], [address], 01/03/2024 10:02:59 12/30/19 24 01/03/2024 URINE CULTU RE cefuroxime <=4 ug/mL susceptib le Not Available [facility] [address] [place] [address], [address], 01/03/2024 10:02:59 12/30/19 24 01/03/2024 URINE CULTU RE ciprofloxaci n <=0.25 ug/mL susceptib le Not Available [facility] [address] [place] [address], [address], 01/03/2024 10:02:59 12/30/19 24 01/03/2024 URINE CULTU RE gentamicin <=4 ug/mL susceptib le Not Available [facility] [address] [place] [address], [address], 01/03/2024 10:02:59 12/30/19 24 01/03/2024 URINE CULTU RE imipenem <=1 ug/mL susceptib le Not Available [facility] [address] [place] [address], [address], 01/03/2024 10:02:59 12/30/19 24 01/03/2024 URINE CULTU RE levofloxacin <=0.5 ug/mL susceptib le Not Available [facility] [address] [place] [address], [address], 01/03/2024 10:02:59 12/30/19 24 01/03/2024 URINE CULTU RE nitrofuranto in <=32 ug/mL susceptib le Not Available [facility] [address] [place] [address], [address], 01/03/2024 10:02:59 12/30/19 24 01/03/2024 URINE CULTU RE piperacillin /olya <=16 ug/mL susceptib le Not Available [facility] [address] [place] [address], [address], 01/03/2024 10:02:59 12/30/19 24 01/03/2024 URINE CULTU RE tetracycline <=4 ug/mL susceptib le Not Available [facility] [address] [place] [address], [address], 01/03/2024 10:02:59 12/30/19 24 01/03/2024 URINE CULTU RE tobramycin <=2 ug/mL susceptib le Not Available [facility] [address] [place] [address], [address], 01/03/2024 10:02:59 12/30/19 24 01/03/2024 URINE CULTU RE trimeth/sulf a <=2/38 ug/mL susceptib le Not Available [facility] [address] [place] [address], [address], 01/03/2024 10:02:59 12/30/19 24 12/30/2023 urina lysis panel , auto Unknown Analyte Clean Catch Not Available [facility] Schedule [address] [place], [address], 12/30/2023 09:37:40 12/30/19 24 12/30/2023 urina lysis panel , auto Unknown Analyte Yellow Not Available [facility] Schedule [address] [place], [address], 12/30/2023 09:37:40 12/30/19 24 12/30/2023 urina lysis panel , auto Unknown Analyte Slight ly Hazy Not Available [facility] Schedule [address] [place], [address], 12/30/2023 09:37:40 12/30/19 24 12/30/2023 urina lysis panel , auto Unknown Analyte 1.015 Not Available [facility] Schedule [address] [place], [address], 12/30/2023 09:37:40 12/30/19 24 12/30/2023 urina lysis panel , auto Unknown Analyte 1.003- 1.035 Not Available [facility] Schedule [address] [place] [address], [address], 12/30/2023 09:37:40 12/30/19 24 12/30/2023 urina lysis panel , auto Unknown Analyte 5.0 Not Available [facility] Schedule [address] [place] [address], [address], 12/30/2023 09:37:40 12/30/19 24 12/30/2023 urina lysis panel , auto Unknown Analyte 5.0-8. 0 Not Available [facility] Schedule [address] [place] [address], [address], 12/30/2023 09:37:40 12/30/19 24 12/30/2023 urina lysis panel , auto Unknown Analyte Negati ve Not Available [facility] Schedule [address] [place] [address], [address], 12/30/2023 09:37:40 12/30/19 24 12/30/2023 urina lysis panel , auto Unknown Analyte Negati ve Not Available [facility] Schedule [address] [place] [address], [address], 12/30/2023 09:37:40 12/30/19 24 12/30/2023 urina lysis panel , auto Unknown Analyte POSITI VE (Abnor mal) Not Available [facility] Schedule [address] [place] [address], [place], [address], 12/30/2023 09:37:40 12/30/19 24 12/30/2023 urina lysis panel , auto Unknown Analyte Negati ve Not Available [facility] Schedule [address] [place], [address], 12/30/2023 09:37:40 12/30/19 24 12/30/2023 urina lysis panel , auto Unknown Analyte Negati ve Not Available [facility] Schedule [address] [place], [address], 12/30/2023 09:37:40 12/30/1912/30/2023 urina lysis panel , auto Unknown Analyte Negati ve Not Available [facility] Schedule [address] [place], [address], 12/30/2023 09:37:40 12/30/19 24 12/30/2023 urina lysis panel , auto Unknown Analyte >1000 mg/dl Not Available [facility] Schedule [address] [place], [address], 12/30/2023 09:37:40 12/30/19 24 12/30/2023 urina lysis panel , auto Unknown Analyte Normal Not Available [facility] Schedule [address] [place], [address], 12/30/2023 09:37:40 12/30/19 24 12/30/2023 urina lysis panel , auto Unknown Analyte Negati ve Not Available [facility] Schedule [address] [place], [address], 12/30/2023 09:37:40 12/30/19 24 12/30/2023 urina lysis panel , auto Unknown Analyte Negati ve Not Available [facility] Schedule [address] [place], [address], 12/30/2023 09:37:40 12/30/19 24 12/30/2023 urina lysis panel , auto Unknown Analyte Normal Not Available [facility] Schedule [address] [place], [address], 12/30/2023 09:37:40 12/30/19 24 12/30/2023 urina lysis panel , auto Unknown Analyte Normal 1 mg/dl Not Available [facility] Schedule [address] [place], [address], 12/30/2023 09:37:40 12/30/19 24 12/30/2023 urina lysis panel , auto Unknown Analyte Negati ve Not Available [facility] Schedule [address] [place], [address], 12/30/2023 09:37:40 12/30/19 24 12/30/2023 urina lysis panel , auto Unknown Analyte Negati ve Not Available [facility] Schedule [address] [place], [address], 12/30/2023 09:37:40 12/30/19 24 12/30/2023 urina lysis panel , auto Unknown Analyte Negati ve Not Available [facility] Schedule [address] [place], [address], 12/30/2023 09:37:40 12/30/19 24 12/30/2023 urina lysis panel , auto Unknown Analyte Negati ve Not Available [facility] Schedule [address] [place], [address], 12/30/2023 09:37:40 01/28/20 24 01/28/2024 urina lysis panel , auto Unknown Analyte Clean Catch Not Available [facility] [address] [place] [address] [address], [place], [address], 01/28/2024 13:18:47 01/28/20 24 01/28/2024 urina lysis panel , auto Unknown Analyte Yellow Not Available [facility] [address], [place], [address], 01/28/2024 13:18:47 01/28/20 24 01/28/2024 urina lysis panel , auto Unknown Analyte Clear Not Available [facility] [address], [place], [address], 01/28/2024 13:18:47 01/28/20 24 01/28/2024 urina lysis panel , auto Unknown Analyte 1.015 Not Available [facility] [address], [place], [address], 01/28/2024 13:18:47 01/28/20 24 01/28/2024 urina lysis panel , auto Unknown Analyte 1.003- 1.035 Not Available [facility] [address], [place], [address], 01/28/2024 13:18:47 01/28/20 24 01/28/2024 urina lysis panel , auto Unknown Analyte 5.0 Not Available [facility] [address] [place] [address] Rd [address], [place], [address], 01/28/2024 13:18:47 01/28/20 24 01/28/2024 urina lysis panel , auto Unknown Analyte 5.0-8. 0 Not Available [facility] [address], [place], [address], 01/28/2024 13:18:47 01/28/20 24 01/28/2024 urina lysis panel , auto Unknown Analyte Negati ve Not Available [facility] [address], [place], [address], 01/28/2024 13:18:47 01/28/20 24 01/28/2024 urina lysis panel , auto Unknown Analyte Negati ve Not Available [facility] [address], [place], [address], 01/28/2024 13:18:47 01/28/20 24 01/28/2024 urina lysis panel , auto Unknown Analyte Negati ve Not Available [facility] [address], [place], [address], 01/28/2024 13:18:47 01/28/20 24 01/28/2024 urina lysis panel , auto Unknown Analyte Negati ve Not Available [facility] [address], [place], [address], 01/28/2024 13:18:47 01/28/20 24 01/28/2024 urina lysis panel , auto Unknown Analyte Negati ve Not Available [facility] [address] [place] [address] Rd [address], [place], [address], 01/28/2024 13:18:47 01/28/20 24 01/28/2024 urina lysis panel , auto Unknown Analyte Negati ve Not Available [facility] [address], [place], [address], 01/28/2024 13:18:47 01/28/20 24 01/28/2024 urina lysis panel , auto Unknown Analyte >1000 mg/dl Not Available [facility] [address], [place], [address], 01/28/2024 13:18:47 01/28/20 24 01/28/2024 urina lysis panel , auto Unknown Analyte Normal Not Available [facility] [address], [place], [address], 01/28/2024 13:18:47 01/28/20 24 01/28/2024 urina lysis panel , auto Unknown Analyte Negati ve Not Available [facility] [address], [place], [address], 01/28/2024 13:18:47 01/28/20 24 01/28/2024 urina lysis panel , auto Unknown Analyte Negati ve Not Available [facility] [address], [place], [address], 01/28/2024 13:18:47 01/28/20 24 01/28/2024 urina lysis panel , auto Unknown Analyte Normal Not Available [facility] [address], [place], [address], 01/28/2024 13:18:47 01/28/20 24 01/28/2024 urina lysis panel , auto Unknown Analyte Normal 1 mg/dl Not Available [facility] [address], [place], [address], 01/28/2024 13:18:47 01/28/20 24 01/28/2024 urina lysis panel , auto Unknown Analyte Negati ve Not Available [facility] [address], [place], [address], 01/28/2024 13:18:47 01/28/20 24 01/28/2024 urina lysis panel , auto Unknown Analyte Negati ve Not Available [facility] [address], [place], [address], 01/28/2024 13:18:47 01/28/20 24 01/28/2024 urina lysis panel , auto Unknown Analyte Negati ve Not Available [facility] [address], [place], [address], 01/28/2024 13:18:47 01/28/20 24 01/28/2024 urina lysis panel , auto Unknown Analyte Negati ve Not Available [facility] With [address], [place], [address], 01/28/2024 13:18:47 12/08/19 25 12/07/2024 urina lysis panel , auto Unknown Analyte Clean Catch Not Available [facility] [place] With [address], [place], [address], 12/07/2024 15:54:20 12/08/19 25 12/07/2024 urina lysis panel , auto Unknown Analyte Yellow Not Available [facility] [place] With [address], [place], [address], 12/07/2024 15:54:20 12/08/19 25 12/07/2024 urina lysis panel , auto Unknown Analyte Clear Not Available [facility] [place] With [address], [place], [address], 12/07/2024 15:54:20 12/08/19 25 12/07/2024 urina lysis panel , auto Unknown Analyte 1.015 Not Available [facility] With [address], [place], [address], 12/07/2024 15:54:20 12/08/19 25 12/07/2024 urina lysis panel , auto Unknown Analyte 1.003 - 1.030 Not Available [facility] With [address], [place], [address], 12/07/2024 15:54:20 12/08/19 25 12/07/2024 urina lysis panel , auto Unknown Analyte 6.0 Not Available [facility] With [address], [place], [address], 12/07/2024 15:54:20 12/08/19 25 12/07/2024 urina lysis panel , auto Unknown Analyte 5.0 - 8.0 Not Available [facility] With [address], [place], [address], 12/07/2024 15:54:20 12/08/19 25 12/07/2024 urina lysis panel , auto Unknown Analyte Negati ve Not Available [facility] With [address], [place], [address], 12/07/2024 15:54:20 12/08/19 25 12/07/2024 urina lysis panel , auto Unknown Analyte Negati ve Not Available [facility] With [address], [place], [address], 12/07/2024 15:54:20 12/08/19 25 12/07/2024 urina lysis panel , auto Unknown Analyte Negati ve Not Available [facility] With [address], [place], [address], 12/07/2024 15:54:20 12/08/19 25 12/07/2024 urina lysis panel , auto Unknown Analyte Negati ve Not Available [facility] With [address], [place], [address], 12/07/2024 15:54:20 12/08/19 25 12/07/2024 urina lysis panel , auto Unknown Analyte Negati ve Not Available [facility] With [address], [place], [address], 12/07/2024 15:54:20 12/08/19 25 12/07/2024 urina lysis panel , auto Unknown Analyte Negati ve Not Available [facility] With [address], [place], [address], 12/07/2024 15:54:20 12/08/19 25 12/07/2024 urina lysis panel , auto Unknown Analyte >1000 mg/dL Not Available [facility] With [place] [address], [place], [address], 12/07/2024 15:54:20 12/08/19 25 12/07/2024 urina lysis panel , auto Unknown Analyte Normal Not Available [facility] With [place] [address], [place], [address], 12/07/2024 15:54:20 12/08/19 25 12/07/2024 urina lysis panel , auto Unknown Analyte Negati ve Not Available [facility] [place] [address], [place], [address], 12/07/2024 15:54:20 12/08/19 25 12/07/2024 urina lysis panel , auto Unknown Analyte Negati ve Not Available [facility] [place] [address], [place], [address], 12/07/2024 15:54:20 12/08/19 25 12/07/2024 urina lysis panel , auto Unknown Analyte Normal Not Available [facility] With [address], [place], [address], 12/07/2024 15:54:20 12/08/19 25 12/07/2024 urina lysis panel , auto Unknown Analyte Normal Not Available [facility] With [address], [place], [address], 12/07/2024 15:54:20 12/08/19 25 12/07/2024 urina lysis panel , auto Unknown Analyte Negati ve Not Available [facility] [address], [place], [address], 12/07/2024 15:54:20 12/08/19 25 12/07/2024 urina lysis panel , auto Unknown Analyte Negati ve Not Available [facility] [place] [address], [place], [address], 12/07/2024 15:54:20 12/08/19 25 12/07/2024 urina lysis panel , auto Unknown Analyte Negati ve Not Available [facility] [place] [address], [place], [address], 12/07/2024 15:54:20 12/08/19 25 12/07/2024 urina lysis panel , auto Unknown Analyte Negati ve Not Available [facility] [address], [place], [address], 12/07/2024 15:54:20 Result Notes None recorded. Problems Name Problem SNOMED Code Status Onset Date Resolution Date Notes Provider Name and Address Organization Details Recorded Time Overactive urinary bladder 464627876 Active 024 JOSE AMIN MD [address] [place] [address], [address] , [facility] 15:59:10 Problem Notes None recorded. Procedures Surgical History Date Name Laterality Status Provider Name and Address Organization Details Recorded Time 07/11/19 arthroplasty of knee completed Murelene Dionicio [facility] 12/07/2024 15:54:02 cholecystectomy [address] [facility] 11/22/2023 14:47:43 Carpal tunnel surgery completed [facility] 11/22/2023 14:47:59 hernia repair completed [facility] 11/22/2023 14:48:[address] [facility] 11/22/2023 14:48:59 Tubal Ligation completed [facility] 11/22/2023 14:49:07 procedure on finger completed [facility] 11/22/2023 14:49:32 Cerebral Aneurysm completed [facility] 11/22/2023 14:50:43 Imaging Results None recorded. Procedure Notes None recorded. Medical Equipment None Reported. Allergies Allergen ID Allergen Name Allergen Category Reaction Reaction Severity Criticality Documentation Date Start Date Code Code System Note Provider Name and Address Organization Details Recorded Time 521076 Ozempic medicatio n Not available Not available Not available 11/22/2023 RxNorm [facility] 14:43:39 Medications Name Sig Start Date Stop [...] Updated DateTime 06/15/2024 165.1 cm 30 kg/m2 [address]776[address] [facility] 06/15/2024 16:02:09 Date Recorded Body height Body mass index (BMI) Body weight Provider Name and Address Organization Details Last Updated DateTime 12/07/2024 165.1 cm 32.4 kg/m2 49374.51 adiel Greenberg [facility] 12/07/2024 15:53:27 Date Recorded Body height Body mass index (BMI) Body weight Provider Name and Address Organization Details Last Updated DateTime 01/28/2024 165.1 cm 30.6 kg/m2 30340 adiel Villatoro [facility] 01/28/2024 11:07:04 Social History Question Answer Notes LastModified by [employer] Details LastModified Time Tobacco Smoking Status Never Smoker [facility] 11/22/2023 14:47:17 What Was The Date Of Your Most Recent Tobacco Screening? 06/15/2024 [email or web address] Information not available 06/15/2024 What Is Your Relationship Status? [email or web address] Information not available 11/22/2023 Has Tobacco Cessation Counseling Been Provided? No [email or web address] Information not available 11/22/2023 Sex: Unknown Functional Status Question Answer Note LastModified by [employer] Details LastModified Time Do you use any illicit or recreational drugs? No [email or web address] Information not available 11/22/2023 Do you or have you ever used any other forms of tobacco or nicotine? No [email or web address] Information not available 11/22/2023 What is your level of alcohol consumption? None [email or web address] Information not available 11/22/2023 Are you currently employed? No retired [email or web address] Information not available 11/22/2023 Mental Status None recorded. Family History Relationship Description Onset Age of this Age Resolved Age Notes LastModified by Organization Details LastModified Time Father No current problems or disability [email or web address] Not available 14:47:07 Mother No current problems or disability [email or web address] Not available 14:47:07 Medical History Condition Response Arthritis Y Stroke Y Anemia Y Diabetes Y Hypertension Y Gynecological HistoryNo gynecological history recorded. Obstetrics History GPAL:G 0 P 0 0 0 0 Immunizations Vaccine Type Date Status Note Provider Nam e and Address Organization Details Recorded Time Influenza, high-dose, trivalent, PF 7 completed Not Available [facility] 12/07/2024 15:51:40 Influenza, split virus, [...] 50 mcg/0.25mL dose 1 completed Not Available [facility] 12/07/2024 15:51:40 Tdap 4 completed Not Available [facility] 12/07/2024 15:51:40 Influenza, high-dose, quadrivalent, PF 5 completed Not Available [facility] 12/07/2024 15:51:40 Pneumococcal conjugate PCV20, polysaccharide [id number] conjugate, adjuvant, PF 5 completed Not Available [facility] 12/07/2024 15:51:40 Past Encounters Encounter ID Performer Location Encounter Start Date Encounter Closed Date Diagnosis/Indication Diagnosis SNOMED-CT Code Diagnosis ICD10 Code Diagnosis IMO Codes Diagnosis Note [id number] MD [facility] [address] [place] [address] 11/22/2023 15:47:47 11/22/2023 16:02:55 Overactive urinary bladder 432209809 N32.81 Urge incon tinence of urine 65011439 N39.41 [id number] JOSE AMIN MD SURGERY SCHEDULE [address] [place] [address] 12/30/2023 08:00:22 12/30/2023 08:00:43 Postoperative pain 932275201 G89.18 [id number] MD [facility] [address] [place] [address] 01/28/2024 10:00:18 01/28/2024 11:10:43 Overactive urinary bladder 631686834 N32.81 Urge incon tinence of urine 12592894 N39.41 [id number] JOSE AMIN MD [facility] [address] [address] 06/15/2024 15:41:59 06/15/2024 16:23:09 Overactive urinary bladder 531691371 N32.81 447930 - Initiate trazodone. - Consider Botox if symptoms persist. - Monitor trospium efficacy. - Discuss consent for Botox. Urge incon tinence of urine 61636419 N39.41 054856 - Trospium prescribed . - Possible Botox as backup. - Inform patient on Botox details. - Consent for Botox if chosen. [id number] JOSE AMIN MD [facility] [address] [address] 12/07/2024 15:50:47 12/07/2024 16:37:13 Overactive urinary bladder 347047068 N32.81 890432 - Continue current medication regimen with Gemtesa, although effectiven ess is limited. - Schedule for Botox injections to manage symptoms, as discussed. 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 Nocturia 082862672 R35.1 76316 - Monitor nocturia symptoms and adjust treatment plan as necessary. [id number] JOSE AMIN MD SURGERY SCHEDULE [address] [place] [address] 01/02/2025 12:14:09 01/02/2025 12:14:53 Health Concerns Section Related Observation LastModified by Organization Detai ls LastModified Time None Recorded Concern Status LastModified by Organization Details LastModified Time None Recorded Advance Directives Directive None Recorded Payers Insurance Date Sequence Insurance Name Policy Number Policy Batista Covered Member ID Batista Member ID Guarantor Name 01/02/2025 1 [place]ARE[place] Rosa Robel Kamala [id number] Rosa Huston Kamala 01/09/2025 2 [facility] [place] [id number] Rosa Kamala [id number] Rosa Huston Kamala Notes Date Note [...] No hematuria or dysuria. JOSE AMIN MD [address] [place] [address], [address], [facility] 01/30/2024 09:04:23 06/15/2024 text/html - [...] treatment for the condition. JOSE AMIN MD [address] [place] [address], [address], [facility] 06/16/2024 08:49:30 12/07/2024 text/html The patient is [...] note prior to signature. JOSE AMIN MD [facility] [place], [address], [facility] 12/18/2024 09:26:56 OBGyn Episode No OBEpisode recorded.
--- OUTSIDE RECORDS SUMMARY | 2025-02-07 08:56 | XMS_ITS | Encounter Summary ---
Author Organization Healthcare Address [address] [place] [address] Care Team Providers Care Viscose Department Worker Name Role Phone Chase Gunn MD Primary Care Provider [phone] Encounter Details Date Type Department Care Team ([facility] st Contact Info) Description 01/10/2025 Orders Only External Location [address] [place] [address] Provider, External Social History Tobacco Use Types [...] in a prison (including now)? No 01/16/2025 [facility] [...] Description 02/14/2025 1:00 PM EST Office Visit [facility] [address] [place] [address] Asher Sinha MD [address] [facility] [address] [place] [address] 03/27/2025 8:30 AM EST Consult [facility] [address] [place] [address] Fransisco Farley MD [address] [place] [address] documented as of this encounter Procedures Procedure Name Priority Date/Time Associated Diagnosis Comments XR OUTSIDE IMAGES 01/10/2025 documented in this encounter Results * XR OUTSIDE IMAGES (01/10/2025) Anatomical Region Laterality Modality Radiographic Adriana ging 01/10/2025 us External Provider IMG XR PROCEDURES Final Result documented in this encounter Visit Diagnoses Not on filedocumented in this encounter Care Teams Viscose Department Worker Relationship Specialty Start Date End Date Chase Gunn MD [id number] PCP - General 06/21/20 documented as of this encounter
--- OUTSIDE RECORDS SUMMARY | 2025-02-07 08:56 | XMS_ITS | Encounter Summary ---
Author Organization [facility] Address [address] [place] [address] Care Team Providers Care Brake Lining Finisher Name Role Phone Chase Gunn MD Primary Care Provider [phone] Encounter Details Date Type Department Care Team [...] a skilled nursing (including now)? No 01/16/2025 [facility] Utilities Answer Date Recorded In [...] Description 02/14/2025 1:00 PM EST Office Visit [facility] [address] [place] [address] Asher Sinha MD [address] [facility] [address] [place] [address] 03/27/2025 8:30 AM EST Consult [place] [facility] [address] [place] [address] Fransisco Farley MD [address] [place] [address] documented as of this encounter Visit Diagnoses Not on filedocumented in this encounter Additional Health Concerns Assessment Noted Time A Body Mass Index follow-up plan has been documented for the patient 01/23/2025 12:18 PM EST documented as of this encounter Care Teams Brake Lining Finisher Relationship Specialty [place] [address] PCP - General 06/21/20 documented as of this encounter
--- OUTSIDE RECORDS SUMMARY | 2025-02-07 08:56 | XMS_ITS | Encounter Summary ---
Author Organization Healthcare Address [address] [place] [address] Care Team Providers Care Operations Specialists Name Role Phone Chase Gunn MD Primary Care Provider [phone] Encounter Details Date Type Department Care Team (Late st Contact Info) Description 01/31/2025 Results Follow-Up [address] [place] [address] Asher Sinha MD [address] [facility] [address] [place] [address] Social History Tobacco Use Types [...] any time in the past 12 m [facility], were you homeless or living in a group home (including now)? No 01/16/2025 [facility] Utilities Answer Date Recorded In the past 12 months has th e [employer], gas, oil, or water company threatened to shut off services in your home? No 01/16/2025 Comments Unknown Sex and Gender Information Value Date Recorded Sex Assigned at Not on file Legal Sex Female 6:06 PM EDT Gender Identity Not on file Sexual Orientation Not on file documented as of this encounter Miscellaneous Notes * Result Encounter Note - Asher Sihna MD - 01/31/2025 8:45 AM EST Discussed [...] Description 02/14/2025 1:00 PM EST Office Visit [facility] [address] [facility] [place] [address] Asher Sinha MD [address] [facility] [address] [place] [address] 03/27/2025 8:30 AM EST Consult [place] [facility] [address] [place] [address] Fransisco Farley MD [address] [place] [address] documented as of this encounter [...] documented as of this encounter Care Teams Operations Specialists Relationship Specialty [place] [address] PCP - General 06/21/20 documented as of this encounter
--- OUTSIDE RECORDS SUMMARY | 2025-02-07 08:57 | XMS_ITS | Data Portability ---
Author Organization [place] [facility], [facility] Address [address] [place] [address] Assessment Encounter Date Assessment Date Assessment LastModified by Organization Details LastModified Time 07/21/2023 07/21/2023 This patient was a new patient that was seen in our [place] office. Approximately 2 months ago the patient [...] balloon kyphoplasty to be done in the [place] office. Will plan on doing this next [...] prednisone 20 mg tablet 2023 024 [facility] [address] [place], [address], 09:11:49 Percocet 10 mg-325 mg tablet 2023 024 [facility] [address] [place], [address], 09:11:48 Patient TargetsNo targets recorded. Patient InstructionsNo instructions recorded. Reason for Referral None Reported. Results Created Date Observation Date Name Description Value Unit Range Abnormal Flag Note LastModifiedBy Organization Detail LastModifiedTime 07/23/1911/05/2021 CT, angio gram, head + neck, w/wo contr ast No observ ation record ed. [email or web address] Not Available 2023 09:07:11 Result Notes None recorded. Problems Name Problem SNOMED Code Status Onset Date Resolution Date Notes Provider Name and Address Organization Details Recorded Time Compression fracture of lumbar spine 485016822 Active 2023 Cameron Hatfield MD [address], [address], [place] [facility] 17:32:06 Problem Notes None recorded. Procedures Surgical History Date Name Laterality Status Provider Name and Address Organization Details Recorded Time 07/28/19 24 Kyphoplasty completed Cameron Hatfield MD [address] [facility],[address], [address], [place] [facility] 07/28/2023 [...] Updated DateTime 07/21/2023 165.1 cm 32.3 kg/m2 49503.92 g Griselda Cortez [place] [facility] 07/21/2023 13:34:12 Date Recorded Body height Body mass index (BMI) Body weight Oxygen saturation Heart rate Pain severity - 0-10 verbal numeric rating [Score] - Reported Systolic And Diastolic Provider Name and Address Organization Details Last Updated DateTime 165.1 cm 32.3 kg/m2 54640.9 2 g 96 % 60 /min 10 112/60 mm[Hg] CESIA SANTIZO [place] [facility] 13:32:03 Social History Question Answer Notes LastModified by [employer] Details LastModified Time Tobacco Smoking Status Never Smoker CESIA SANTIZO null, [place] [facility] 07/19/2023 09:49:17 In The 14 Days Before Symptom Onset, Have You Had Close Contact With A Laboratory-confirm ed COVID-19 While That Case Was Ill? No [email or web address] Information n ot available 07/19/2023 In The 14 Days Before Symptom Onset, Have You Had Close Contact With A Person Who Is Under Investigation For COVID-19 While That Person Was Ill? No [email or web address] Information not available 07/19/2023 Have You Been To An Area Known To Be High Risk For COVID-19? No Information not available 07/19/2023 Sex: Unknown Functional Status Question Answer Note LastModified by [employer] Details LastModified Time Do you use any illicit or recreational drugs? No [email or web address] Information not available 07/19/2023 Do you or have you ever used any other forms of tobacco or nicotine? No [email or web address] Information not available 07/19/2023 What is your level of alcohol consumption? None [email or web address] Information not available 07/19/2023 Mental Status None recorded. Family History Nothing Reported. Medical History Condition Response Coronary Artery Disease N Gout N Hernia N Head Trauma/Injury N Thyroid Problems N Depression Y COPD N Anemia N Heart Attack ([place]) N Ulcers N Diabetes Y Anxiety Disorder N Bleeding [...] ICD10 Code Diagnosis IMO Codes Diagnosis Note [id number] Cameron Hatfield MD [address] [place] [address] 07/21/2023 13:23:28 07/21/2023 14:17:16 Degeneration of lumbar intervertebral disc 92132293 M51.36 Compressio n fracture of lumbar spine 747290652 M48.56XA Lumbar radiculopathy 128 042155 M54.16 Lumbar spondylosis 34316 0009 M47.896 [id number] Cameron Hatfield MD [place] [facility] [address] [place] [address] 07/28/2023 13:04:24 07/28/2023 17:13:51 Compression fracture of lumbar spine 168751164 M48.56XA Health Concerns Section Related Observation LastModified by Organization Detai ls LastModified Time None Recorded Concern Status LastModified by Organization Details LastModified Time None Recorded Advance Directives Directive None Recorded Payers Insurance Date Sequence Insurance Name Policy Number Policy Batista Covered Member ID Batista Member ID Guarantor Name 09/17/2023 2 [place] [id number] Westley Salcedop [id number] Rosa Wray 09/17/2023 1 [place] Rosa Huston Kamala [id number] Kamala Notes Date Note Type Note Provider [...] helped significantly. For previous physical therapy, patient [id number] of pt completedandresponse to therapy: temporary pain/symptoms improvement. Cameron Hatfield MD [address], [address], [place] [facility] 07/21/2023 17:40:01 [...] helped significantly. For previous physical therapy, patient [id number] of pt completedandresponse to therapy: temporary pain/symptoms improvement. Cameron Hatfield MD [address], [address], [place] [facility] 07/28/2023 17:34:07 OBGyn Episode No OBEpisode recorded.
[2025-02-07 09:09] LABS: Chloride 102 mmol/L (98-107); Potassium 4.3 mmoL/L (3.5-5.1); Sodium 138 mmol/L (136-145)
[2025-02-07 09:12] LABS: Anion Gap 12.3 mEq/L (5-15); Blood Urea Nitrogen 21 mg/dl (7-17); Calcium 9.4 mg/dl (8.4-10.2); Carbon Dioxide 28 mmol/L (22.0-30.0); Creatinine,Serum 1.60 mg/dl (0.52-1.04); Estimated Glomerular Filt Rate 32 ml/min (>60); GFR (African American) 38 ML/MIN (>60); Glucose 133 mg/dl (74-100)
== END 2025-02-07 23:59 | disposition home or self-care (01) ==
LOC: LAB.DROPOF 08:49
PROVIDERS: PCP Family Medicine; Visit Provider Family Medicine
DX: R94.4 Abnormal results of kidney function studies (principal); R68.89 Other general symptoms and signs
CPT/HCPCS: 36415; 80048; 85025